=== PATIENT | female | born 1985 | race Caucasian/White ===

== ENCOUNTER 2016-04-07 03:19 | Emergency (ER) | payer MEDICARE, OTHER ==
[2016-04-07] MEDS ORDERED: METOCLOPRAMIDE 5 MG/ML 2 ML VIAL IVP STA (03:32)
[2016-04-07] MEDS ORDERED: SODIUM CHLORIDE 0.9% 1,000 ML IV STA (03:32)
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
[2016-04-07] MEDS ORDERED: FAMOTIDINE 20 MG/2 ML VIAL IV STA (04:05)
--- NOTE | 2016-04-07 04:05 | XR ---
EXAMINATION TYPE: XR KUB DATE OF EXAM: 04/07/2016 3:40 AM CLINICAL HISTORY: Nausea and vomiting. TECHNIQUE: 2 upright frontal radiographs of abdomen were obtained. COMPARISON: 02/02/2016 FINDINGS: Scattered gas is seen in non-distended small bowel loops. Gas and fecal material is seen in non-distended colon. There is no visceromegaly, pneumoperitoneum, or abnormal calcification appr eciated. The lung bases are clear and the osseous structures are intact. Neural stimulators are noted superimposing the abdomen and pelvis bilaterally with electrodes superim posing the lower thoracic spine and lumbosacral spine. IMPRESSION: Overall nonobstructive bowel gas pattern. No significant interval change.
[2016-04-07 04:14] LABS: Basophils # (A) 0.1 k/uL (0-0.2); Basophils % (A) 1 %; CH 31.7; CHCM 35.7; Eosinophils # (A) 0.1 k/uL (0-0.7); Eosinophils % (A) 1 %; HCT 41.3 % (34.0-46.0); HDW 2.73; Luc # (Auto) 0.08; Luc % (Auto) 1; Lymphocytes # (A) 2.6 k/uL (1.0-4.8); Lymphocytes % (A) 33 %; MCH 30.2 pg (25.0-35.0); MCHC 33.9 g/dL (31.0-37.0); MCV 89.2 fL (80.0-100.0); Mean Platelet Volume 7.1; Monocytes # (A) 0.4 k/uL (0-1.0); Monocytes % (A) 5 %; Neutrophils # (A) 4.8 k/uL (1.3-7.7); Neutrophils % (A) 60 %; RBC 4.64 m/uL (3.80-5.40); WBC (Perox) 7.77
[2016-04-07 04:19] LABS: Appearance,Urine Cloudy (Clear); Bacteria,Urine Rare /hpf; Bilirubin,Urine Negative (Negative); Glucose,Urine (UA) Negative (Negative); Ketones,Urine Negative (Negative); Leukocyte Esterase,Urine Negative (Negative); Mucus,Urine Rare /hpf; Nitrite,Urine Negative (Negative); PH, Urine 5.5 (5.0-8.0); Particle Count 3835; Protein,Urine Negative (Negative); RBC,Urine <1 /hpf (0-5); Specific Gravity,Urine 1.021 (1.001-1.035); Squamous Epithelial Cell,Urine 16 /hpf (0-4); UA Billing (MACRO vs. MICRO) MICRO; Urobilinogen,Urine <2.0 mg/dL (<2.0); WBC,Urine 2 /hpf (0-5)
[2016-04-07 04:24] LABS: ALT 28 U/L (9-52); AST 14 U/L (14-36); Alcohol <10 mg/dL; Alkaline Phosphatase 99 U/L (38-126); Amylase 48 U/L (30-110); Anion Gap 17 mmol/L; Blood Urea Nitrogen 19 mg/dL (7-17); Calcium 10.1 mg/dL (8.4-10.2); Carbon Dioxide 20 mmol/L (22-30); Chloride 107 mmol/L (98-107); Glucose 104 mg/dL (74-99); Non-African American GFR(MDRD) 58 (>60 ml/min/1.73 sqM); Potassium 3.8 mmol/L (3.5-5.1); Sodium 144 mmol/L (137-145); Total Bilirubin 0.2 mg/dL (0.2-1.3); Total Protein 6.6 g/dL (6.3-8.2)
[2016-04-07 05:12] VITALS: BP 128/81; PULSE 78; RESP 18; TEMP 97
== END 2016-04-07 05:12 | disposition home or self-care (01) ==
LOC: EC 03:19
DX: R10.13 Epigastric pain (principal); R11.2 Nausea with vomiting, unspecified; G90.522 Complex regional pain syndrome I of left lower limb; J45.909 Unspecified asthma, uncomplicated; E78.5 Hyperlipidemia, unspecified; F41.9 Anxiety disorder, unspecified; G40.909 Epilepsy, unspecified, not intractable, without status epilepticus; K21.9 Gastro-esophageal reflux disease without esophagitis; N30.10 Interstitial cystitis (chronic) without hematuria; F31.9 Bipolar disorder, unspecified; Z79.899 Other long term (current) drug therapy; Z88.8 Allergy status to other drugs, medicaments and biological substances; Z88.1 Allergy status to other antibiotic agents; Z91.013 Allergy to seafood; Z79.3 Long term (current) use of hormonal contraceptives
CPT/HCPCS: 96374; 96375; 96361; 99284; 36415; 80053; 82150; 83605; 83690; 85025; 81001; 80306; 80320; 74000; J2765

== ENCOUNTER → 2016-05-02 | Outpatient (CLI) | payer MEDICARE, OTHER ==
--- NOTE | 2016-05-02 14:22 | US ---
EXAMINATION TYPE: US venous doppler duplex LE BI DATE OF EXAM: 05/02/2016 1:49 PM COMPARISON: on PACS CLINICAL HISTORY: M79.669 Pain Unspecified Lower Leg, Edema. bilateral leg pain, no hx of blood clots , not on blood thinners SIDE PERFORMED: bilateral VESSELS IMAGED: External Iliac Vein (EIV) Common Femoral Vein Deep Femoral Vein Greater Saphenous Vein * Femoral Vein Popliteal Vein Small Saphenous Vein * Proximal Calf Veins (* superficial vessels) TECHNOLOGIST IMPRESSION: Right Leg: appears negative for DVT Left Leg: appears negative for DVT IMPRESSION: This examination is negative for DVT in both legs.
== END | disposition home or self-care (01) ==
LOC: RADUSWWP 12:58
PROVIDERS: ATTEND Family Medicine
DX: M79.669 Pain in unspecified lower leg (principal)
CPT/HCPCS: 93970

== ENCOUNTER 2016-05-15 11:51 | Day surgery (SDC) | payer MEDICARE, OTHER ==
[~2016-05-15 11:51] MED LIST: LACTATED RINGERS 1,000 ML IV SCH
[2016-05-15 13:12] VITALS: RESP 16; TEMP 97.1
[2016-05-15] MEDS ORDERED: LIDOCAINE 1% 20 ML VIAL (10MG/ML) FOR IV START INTRADERMA ONE (13:26)
[2016-05-15] MEDS ORDERED: PROPOFOL 10 MG/ML 20 ML VIAL IV ONE (14:30)
[2016-05-15] MEDS ORDERED: MIDAZOLAM 2 MG/2 ML VIAL IVP ONE (15:00)
--- NOTE | 2016-05-15 15:00 | P.PCN ---
Date of Procedure: 05/15/16 Procedure(s) Performed: Procedure: Esophagogastroduodenoscopy and biopsy. Preoperative diagnosis: Epigastric pain and nausea and vomiting. Postoperative diagnosis: 1. Small sliding hiatal hernia with no obvious esophagitis or complicated reflux disease. 2. Mild antral gastritis. Preparation and sedation: Was provided by anesthesia. Brief clinical history: The patient is a 30-year-old female who I have evaluated in the office earlier this month regarding epigastric pain and recurrent nausea and vomiting. This had been going on for 2-3 years. She had both upper endoscopy and colonoscopy in August 2014 because of diarrhea. Because of her symptoms at this time and lack of response to therapy, I requested an ultrasound of the abdomen and scheduled her for an upper endoscopy. Procedure: With the patient on her left lateral decubitus position and after informed consent and adequate sedation, I passed the Olympus-GIF 160 video upper endoscope through the cricopharyngeus down the esophagus. GE junction was around 35 cm from the incisors and there was a very small sliding hiatal hernia. The esophagus did not show any obvious erosions, ulcers, strictures or Dale's esophagus. The endoscope was then passed into the stomach which was insufflated with air and inspected in detail including the retroflex view in the cardia. There was mottling and erythema in the antrum and areas of friability and floating flecks of blood consistent with gastritis. I did not see any ulcers, erosions or bleeding. Pyloric channel, duodenal bulb, post bulbar area and descending duodenum appeared within normal limits. Because of her symptoms, I obtained biopsies from the duodenum, antrum and esophagus then the endoscope was withdrawn. The patient tolerated the procedure well. Plan: The patient was reassured. Will await biopsy results. She will follow- up in the office as planned and I will keep you updated on her progress.
[2016-05-15] MEDS ORDERED: ONDANSETRON 4 MG/2 ML VIAL IVP ONE (15:30)
[2016-05-15 15:47] VITALS: BP 131/76; PULSE 76
== END 2016-05-15 15:57 | disposition home or self-care (01) ==
LOC: ORWHC2ENDO 11:51
DX: K21.0 Gastro-esophageal reflux disease with esophagitis (principal); K44.9 Diaphragmatic hernia without obstruction or gangrene; K29.70 Gastritis, unspecified, without bleeding; E78.5 Hyperlipidemia, unspecified; J45.909 Unspecified asthma, uncomplicated; F31.9 Bipolar disorder, unspecified; F43.10 Post-traumatic stress disorder, unspecified; M19.90 Unspecified osteoarthritis, unspecified site; G40.909 Epilepsy, unspecified, not intractable, without status epilepticus; Z79.891 Long term (current) use of opiate analgesic; Z79.51 Long term (current) use of inhaled steroids; Z79.899 Other long term (current) drug therapy; Z88.1 Allergy status to other antibiotic agents; Z88.2 Allergy status to sulfonamides; Z88.8 Allergy status to other drugs, medicaments and biological substances; N30.10 Interstitial cystitis (chronic) without hematuria
CPT/HCPCS: 81025; 88305; 43239; J2250; J2405; J2704; 99153

== ENCOUNTER 2016-05-29 02:04 | Emergency (ER) | payer MEDICARE, OTHER ==
[2016-05-29 02:09] VITALS: TEMP 97.5
[2016-05-29] MEDS ORDERED: SODIUM CHLORIDE 0.9% 2,000 ML IV STA (02:21)
[2016-05-29] MEDS ORDERED: ACETAMINOPHEN IV (For NPO) 1,000 MG in EMPTY BAG 1 BAG IVPB STA (02:29)
[2016-05-29] MEDS ORDERED: METOCLOPRAMIDE 5 MG/ML 2 ML VIAL IVP STA (02:29)
[2016-05-29] MEDS ORDERED: diphenhydrAMINE 50 MG/ML 1 ML VIAL IVP STA (02:29)
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
[2016-05-29 02:58] LABS: Basophils # (A) 0.1 k/uL (0-0.2); Basophils % (A) 1 %; CHCM 36.6; Eosinophils # (A) 0.1 k/uL (0-0.7); Eosinophils % (A) 1 %; HCT 44.1 % (34.0-46.0); HGB 15.9 gm/dL (11.4-16.0); Luc # (Auto) 0.08; Luc % (Auto) 1; Lymphocytes # (A) 1.5 k/uL (1.0-4.8); Lymphocytes % (A) 19 %; MCH 31.6 pg (25.0-35.0); MCV 87.9 fL (80.0-100.0); Mean Platelet Volume 7.8; Monocytes # (A) 0.3 k/uL (0-1.0); Monocytes % (A) 4 %; Neutrophils # (A) 5.7 k/uL (1.3-7.7); Neutrophils % (A) 74 %; RBC 5.02 m/uL (3.80-5.40); RDW 13.1 % (11.5-15.5); WBC 7.7 k/uL (3.8-10.6); WBC (Perox) 7.07
[2016-05-29 03:18] LABS: ALT 24 U/L (9-52); AST 24 U/L (14-36); Alkaline Phosphatase 107 U/L (38-126); Amylase 40 U/L (30-110); Anion Gap 16 mmol/L; Blood Urea Nitrogen 17 mg/dL (7-17); Carbon Dioxide 24 mmol/L (22-30); Chloride 101 mmol/L (98-107); Glucose 118 mg/dL (74-99); Non-African American GFR(MDRD) >60 (>60 ml/min/1.73 sqM); Potassium 4.1 mmol/L (3.5-5.1); Sodium 141 mmol/L (137-145); Total Bilirubin 0.7 mg/dL (0.2-1.3); Total Protein 7.6 g/dL (6.3-8.2)
[2016-05-29 03:25] LABS: Appearance,Urine Clear (Clear); Bacteria,Urine Rare /hpf; Bilirubin,Urine Negative (Negative); Glucose,Urine (UA) Negative (Negative); Ketones,Urine Trace (Negative); Leukocyte Esterase,Urine Trace (Negative); Mucus,Urine Rare /hpf; Nitrite,Urine Negative (Negative); Particle Count 3454; Protein,Urine Negative (Negative); RBC,Urine 1 /hpf (0-5); Specific Gravity,Urine 1.012 (1.001-1.035); Squamous Epithelial Cell,Urine 6 /hpf (0-4); UA Billing (MACRO vs. MICRO) MICRO; Urobilinogen,Urine <2.0 mg/dL (<2.0); WBC,Urine 6 /hpf (0-5)
[2016-05-29] MEDS ORDERED: MAG HYDROX/AL HYDROX/SIMETH 30 ML, HYOSCYAMINE ELIXIR 10 ML, CIMETIDINE HCL 300 MG PO STA ×3 (03:25)
[2016-05-29] MEDS ORDERED: MAG HYDROX/AL HYDROX/SIMETH 30 ML, HYOSCYAMINE ELIXIR 10 ML, LIDOCAINE VISCOUS 200 MG PO STA ×3 (03:27)
--- NOTE | 2016-05-29 03:34 | XR ---
EXAM: XR Abdomen, 1 View. CLINICAL HISTORY: Reason: abdominal pain TECHNIQUE: 2 frontal upright views of the abdomen/pelvis. COMPARISON: 04/07/16 plain films. FINDINGS: Gastrointestinal tract: Unremarkable. No dilation. Bones: Slight rightward curvature centered at the L1 level, stable. No acute fracture. Tubes and lines: There are again neurostimulator device is present with bilateral battery packs, and electrodes overlying the lower lumbar spine and extending to the lower thoracic spine, as on the prior exam. IMPRESSION: No acute findings.
[2016-05-29 04:02] VITALS: BP 123/76; PULSE 75; RESP 16
== END 2016-05-29 03:56 | disposition home or self-care (01) ==
LOC: EC 02:04
DX: G43.909 Migraine, unspecified, not intractable, without status migrainosus (principal); R11.2 Nausea with vomiting, unspecified; R10.9 Unspecified abdominal pain; J45.909 Unspecified asthma, uncomplicated; E78.5 Hyperlipidemia, unspecified; G40.909 Epilepsy, unspecified, not intractable, without status epilepticus; G98.8 Other disorders of nervous system; N30.10 Interstitial cystitis (chronic) without hematuria; K21.9 Gastro-esophageal reflux disease without esophagitis; M19.90 Unspecified osteoarthritis, unspecified site; F31.9 Bipolar disorder, unspecified; G47.00 Insomnia, unspecified; F12.90 Cannabis use, unspecified, uncomplicated; Z91.013 Allergy to seafood; Z88.2 Allergy status to sulfonamides; Z88.8 Allergy status to other drugs, medicaments and biological substances; Z88.1 Allergy status to other antibiotic agents; Z79.899 Other long term (current) drug therapy; Z86.14 Personal history of Methicillin resistant Staphylococcus aureus infection; Z79.51 Long term (current) use of inhaled steroids; Z79.891 Long term (current) use of opiate analgesic
CPT/HCPCS: 99284; 96374; 96375 ×2; 96361; 36415; 80053; 82150; 83690; 85025; 81001; 81025; 87502; 74000; J1200; J2765; J0131

== ENCOUNTER 2016-06-07 19:08 | Emergency (ER) | payer MEDICARE, OTHER ==
[2016-06-07 19:28] VITALS: BP 127/90; PULSE 100; RESP 20; TEMP 98.1
[2016-06-07] MEDS ORDERED: ORPHENADRINE 30 MG/ML 2 ML VIAL IM STA (20:04)
[2016-06-07] MEDS ORDERED: methylPREDNISolone SOD SUCCI 125 MG/2 ML VIAL IM ONE (20:04)
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
== END 2016-06-07 20:24 | disposition home or self-care (01) ==
LOC: EC 19:08
DX: S39.012A Strain of muscle, fascia and tendon of lower back, initial encounter (principal); M54.16 Radiculopathy, lumbar region; J45.909 Unspecified asthma, uncomplicated; K21.9 Gastro-esophageal reflux disease without esophagitis; E78.5 Hyperlipidemia, unspecified; M19.90 Unspecified osteoarthritis, unspecified site; G40.909 Epilepsy, unspecified, not intractable, without status epilepticus; F31.9 Bipolar disorder, unspecified; F41.9 Anxiety disorder, unspecified; F43.10 Post-traumatic stress disorder, unspecified; Z79.899 Other long term (current) drug therapy; Z88.1 Allergy status to other antibiotic agents; Z91.013 Allergy to seafood; Z88.2 Allergy status to sulfonamides; Z88.6 Allergy status to analgesic agent; Z88.8 Allergy status to other drugs, medicaments and biological substances; X58.XXXA Exposure to other specified factors, initial encounter
CPT/HCPCS: 99283; 96372 ×2; J2360; J2930

== ENCOUNTER 2016-06-14 12:00 | Inpatient (IN) | payer MEDICARE, OTHER ==
--- NOTE | 2016-06-14 13:30 | HP ---
DATE OF ADMISSION: CHIEF COMPLAINT: Cough, congestion, shortness of breath started about 10 days ago, has been progressive in nature. HISTORY OF PRESENTING ILLNESS: Ms. Tiara Mackenzie is a pleasant 30-year-old female who is seen, evaluated, examined in the office for increased cough, congestion and wheezing, has not been feeling well. The symptoms started about 10 days ago with upper respiratory like process; however, has been progressive. Due to severe coughing, congestion and worsening in breathing, came into the office for further evaluation. She has been gagging and throwing up as well. With those problems, patient is now being admitted into the hospital. She has audible wheezing as well. Past medical history is significant for chronic persistent asthma of mild to moderate category, history of peptic ulcer disease, generalized anxiety disorder, history of early interstitial lung disease, chronic headache, dyspnea, dyslipidemia, reflex sympathetic dystrophy, history of mood disorder, depression, cough, hypertension, hypertensive ( ), UTI, mild degree of obstructive sleep apnea with AHI is not high enough to warrant intervention with CPAP. Past surgical history is significant for bunions resection, back surgery. FAMILY HISTORY AND SOCIAL HISTORY: Denies any smoking, ethanol abuse. Denies any substance use. Patient does have a history of chronic pain syndrome, has been followed by pain management services as well. She does do medical marijuana as well. Allergies include PROLIXIN, HALDOL, GEODON, ETHER, SULFA and LEVAQUIN. Her medications at home include: 1. Acyclovir 400 mg daily and 800 mg daily. 2. Xanax as needed 0.5 two times a day. 3. Benztropine 1 mg p.o. 2 times a day. 4. Depo-Provera is as per direction intramuscular. 5. Elmiron 100 mg 2 times a day. 6. Gemfibrozil 600 mg ( ). 7. Hydrochlorothiazide 25 mg daily. 8. Invega 117 mg/0.75 once a month. 9. Minipress 2 mg daily. 10. Neurontin 800 mg p.o. ( ). 11. Protonix 40 mg daily. 12. Percocet 5/325 two times a day. 13. Qvar 80 mcg 2 puffs 2 times a day. 14. Requip 1 mg at bedtime. 15. Singular 10 mg daily. 16. Singulair 10 mg daily. 17. Spiriva 18 mcg daily. 18. Sumatriptan 50 mg tablets as needed. 19. Tegretol 200 mg p.o. 2 times a day along with 100 mg XR 2 times a day. 20. Tizanidine 4 mg 4 times a day. 21. Topiramate 50 mg 2 times a day. 22. Trazodone 200 mg daily. 23. Zofran is 8 mg as needed. 24. Zyrtec 10 mg p.o. daily. FAMILY HISTORY AND SOCIAL HISTORY: Strong history of cardiovascular, cerebrovascular family also psychiatric disorder on maternal side. On examination, her blood pressure is 118/82, respiratory rate 18, pulse rate 82, temperature is 96.5, weight is 166 pounds, height is 62 inches, saturation 96%. HEENT EXAMINATION: Atraumatic, normocephalic. Pharynx is clear. Narrow pharyngeal opening is present. Mallampati grade 3. Facial tenderness is present. NECK: Supple otherwise, no bruits present. LUNGS: Bilateral coarse inspiratory, expiratory wheezing and rhonchi are present. HEART: Regular rate and rhythm. S1, S2. ABDOMEN: Soft. No rebound or rigidity. EXTREMITIES: +1 peripheral pulses. NEUROLOGICAL EXAMINATION: Otherwise, awake and alert. No focal neurological deficit. During examination, patient continued to have episodes of coughing and gagging though. IMPRESSION: 1. Acute asthma exacerbation, likely associated purulent tracheobronchitis. 2. Community-acquired pneumonia cannot be excluded. 3. Viral pneumonia like influenza, pneumonia is also a possibility given the clinical presentation. 4. Other issues include reflex sympathetic dystrophy. 5. Dyslipidemia. 6. Hypertension. 7. Mood disorder. 8. Morbid obesity. 9. Fibromyalgia. 10. Chronic seasonal allergies. PLAN AND RECOMMENDATIONS: As above. The patient is being admitted into the hospital directly. I will obtain the basic labs including chemistry, CBC, blood culture, urine culture, sputum for studies, influenza A and B for nasopharyngeal swab, chest x-ray. Patient will be started on broad-spectrum antibiotic in the form of Rocephin and Zithromax pending culture results and reports. In addition will be placed on breathing treatments, steroids and will be continued on home medications. The patient will be continued on ( ) medications. We will follow clinical course closely. Further recommendations pending as per clinical response of the patient.
[2016-06-14] MEDS ORDERED: diphenhydrAMINE 25 MG CAP PO PRN (15:30)
[2016-06-14] MEDS ORDERED: SODIUM CHLORIDE 0.9% 1,000 ML IV SCH (15:30)
[2016-06-14] MEDS ORDERED: ONDANSETRON 4 MG TAB PO PRN (15:33)
[2016-06-14] MEDS ORDERED: oxyCODONE-APAP 5-325MG 1 EACH TAB PO PRN (15:33)
[2016-06-14] MEDS ORDERED: SUMAtriptan SUCCINATE 50 MG TAB PO PRN (15:33)
[2016-06-14] MEDS ORDERED: PALIPERIDONE PALMITATE 117 MG IM SCH (15:45)
[2016-06-14 16:13] VITALS: BP 129/85; RESP 18; TEMP 98.2
[2016-06-14 16:24] LABS: CHCM 35.9; HGB 14.5 gm/dL (11.4-16.0); MCH 32.3 pg (25.0-35.0); MCHC 36.1 g/dL (31.0-37.0); MCV 89.5 fL (80.0-100.0); Mean Platelet Volume 7.4; RBC 4.47 m/uL (3.80-5.40); RDW 13.1 % (11.5-15.5); WBC 4.8 k/uL (3.8-10.6)
[2016-06-14] MEDS: IPRATROPIUM-ALBUTEROL 3 ML NEB INHALATION SCH ×2 (16:27→19:41)
[2016-06-14 16:35] LABS: Anion Gap 15 mmol/L; Blood Urea Nitrogen 17 mg/dL (7-17); Calcium 9.6 mg/dL (8.4-10.2); Carbon Dioxide 23 mmol/L (22-30); Chloride 104 mmol/L (98-107); Glucose 88 mg/dL (74-99); Magnesium 1.8 mg/dL (1.6-2.3); Non-African American GFR(MDRD) >60 (>60 ml/min/1.73 sqM); Phosphorous 3.3 mg/dL (2.5-4.5); Sodium 142 mmol/L (137-145)
[2016-06-14 16:38] VITALS: PULSE 102
[2016-06-14] MEDS ORDERED: tiZANidine 4 MG TAB PO PRN (18:00)
--- NOTE | 2016-06-14 18:08 | XR ---
EXAMINATION TYPE: XR chest 2V DATE OF EXAM: 06/14/2016 5:38 PM COMPARISON: 02/11/2016 HISTORY: Cough and chest pain TECHNIQUE: Frontal and lateral views of the chest are obtained. FINDINGS: There is no focal air space opacity, pleural effusion, or pneumothorax seen. The cardiac silhouette size is within normal limits. The osseous structures are intact. Again a spinal stimulat or device is seen in the thoracic spine. IMPRESSION: No acute cardiopulmonary process, unchanged from the prior.
[2016-06-14 19:58] LABS: Hemoglobin A1C 5.3 % (4.2-6.1)
[2016-06-14] MEDS ORDERED: BUDESONIDE 0.5 MG/2 ML NEBU INHALATION SCH (20:00)
[2016-06-14] MEDS ORDERED: BENZTROPINE MESYLATE 1 MG TAB PO SCH (21:00)
[2016-06-14] MEDS ORDERED: GEMFIBROZIL 600 MG TAB PO SCH (21:00)
[2016-06-14] MEDS ORDERED: NON-FORMULARY DRUG (Pentosan Polysulfate Sodium [Elmiron] 100 MG) PO SCH (21:00)
[2016-06-14] MEDS ORDERED: traZODone HCL 100 MG TAB PO SCH (21:00)
[2016-06-14] MEDS ORDERED: PRAZOSIN 1 MG CAP PO SCH (21:00)
[2016-06-14] MEDS ORDERED: GABAPENTIN 300 MG CAP PO SCH (21:00)
[2016-06-14] MEDS ORDERED: INSULIN LISPRO (humaLOG) 300 UNIT/3 ML VIAL SQ SCH (21:00)
[2016-06-15] MEDS ORDERED: methylPREDNISolone SOD SUCCI 40 MG/ML 1 ML VIAL IV SCH
[2016-06-15] MEDS ORDERED: HYDROCHLOROTHIAZIDE 25 MG TAB PO SCH (09:00)
[2016-06-15] MEDS ORDERED: MONTELUKAST 10 MG TAB PO SCH (09:00)
[2016-06-15] MEDS ORDERED: carBAMazepine 100 MG TAB.ER.12H PO SCH (09:00)
== END 2016-06-14 21:06 | disposition left against medical advice (07) | DRG 194 ==
LOC: 5MS5E 13:25
PROVIDERS: ADMIT Internal Medicine Sleep Medicine; ATTEND Internal Medicine Sleep Medicine
DX: J12.9 Viral pneumonia, unspecified (principal); J84.9 Interstitial pulmonary disease, unspecified; J45.41 Moderate persistent asthma with (acute) exacerbation; E66.01 Morbid (severe) obesity due to excess calories; G90.50 Complex regional pain syndrome I, unspecified; J41.1 Mucopurulent chronic bronchitis; J18.9 Pneumonia, unspecified organism; I10 Essential (primary) hypertension; F41.1 Generalized anxiety disorder; M79.7 Fibromyalgia; G47.33 Obstructive sleep apnea (adult) (pediatric); Z68.30 Body mass index [BMI] 30.0-30.9, adult; E78.5 Hyperlipidemia, unspecified; Z87.11 Personal history of peptic ulcer disease; Z79.899 Other long term (current) drug therapy; F39 Unspecified mood [affective] disorder
CPT/HCPCS: 71020; 80048; 83036; 83735; 84100; 85027; 87040; 94640

== ENCOUNTER 2016-07-08 21:40 | Emergency (ER) | payer MEDICARE, OTHER ==
[2016-07-08 21:56] VITALS: BP 149/89; PULSE 120; RESP 16; TEMP 99.2
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
--- NOTE | 2016-07-08 22:49 | XR ---
EXAM: XR Right Knee, 3 views. CLINICAL HISTORY: Reason: Pain TECHNIQUE: Three views of the right knee. COMPARISON: Right knee radiographs 11/22/2013 FINDINGS: Bones/joints: No evidence of fracture, dislocation or bony erosion. No significant arthritic changes. No evidence of knee joint effusion. Soft tissues: Unremarkable. IMPRESSION: No significant bone or joint abnormalities.
== END 2016-07-08 23:35 | disposition home or self-care (01) ==
LOC: EC 21:40
DX: S80.01XA Contusion of right knee, initial encounter (principal); J45.909 Unspecified asthma, uncomplicated; K21.9 Gastro-esophageal reflux disease without esophagitis; E78.5 Hyperlipidemia, unspecified; M19.90 Unspecified osteoarthritis, unspecified site; G40.909 Epilepsy, unspecified, not intractable, without status epilepticus; F41.9 Anxiety disorder, unspecified; F31.9 Bipolar disorder, unspecified; Z79.899 Other long term (current) drug therapy; Z88.1 Allergy status to other antibiotic agents; Z91.013 Allergy to seafood; Z88.2 Allergy status to sulfonamides; Z88.6 Allergy status to analgesic agent; Z88.8 Allergy status to other drugs, medicaments and biological substances; W01.0XXA Fall on same level from slipping, tripping and stumbling without subsequent striking against object, initial encounter
CPT/HCPCS: 99283

== ENCOUNTER → 2016-07-16 | Outpatient (CLI) | payer MEDICARE, OTHER ==
--- NOTE | 2016-07-16 14:54 | US ---
EXAMINATION TYPE: US gallbladder DATE OF EXAM: 07/16/2016 2:18 PM COMPARISON: NONE CLINICAL HISTORY: 30-year-old female R10.9 ABD PAIN. Pain for a year, worse last 3 days TECHNIQUE: Multiple sonographic images of the right upper quadrant are obtained. FINDINGS: DENTAL INTERN NOTES: Large body habitus. Liver Length: 12.8 cm Gallbladder Wall: 0.2 cm CBD: 0.2 cm Right Kidney: 10.2 x 3.4 x 5.1 cm Pancreas: Obscured by bowel gas, large body habitus Liver: Homogeneous echotexture without focal lesion. Gallbladder: No abnormal gallbladder distention, wall thickening, pericholecystic fluid, or shadowin g calculi. Evidence for sonographic Bruner's sign: No CBD: Within normal limits. Right Kidney: No hydronephrosis. There is a 6 mm calculus in the upper to midpole. IMPRESSION: 1. No sonographic evidence for cholelithiasis, acute cholecystitis, or biliary ductal dilatation. 2. Suspected 6 mm nonobstructive right renal calculus.
--- NOTE | 2016-07-16 14:56 | XR ---
EXAMINATION TYPE: XR KUB DATE OF EXAM: 07/16/2016 2:31 PM CLINICAL DATA: 30 year-old female unspecified abdominal pain, right-sided pain and vomiting, PH[facility] COMPARISON: 05/29/2016 FINDINGS: Lung bases are clear. Supine imaging limited for assessment of free air. No dilated bowel. Mild stool burden. Scattered air is seen throughout the colon extending distally in to the rectum. No suspicious calcifications. Generator device is present on both sides of the abdomen. The left generator device has a spinal stim ulator array extending to the midline lower thoracic spinal canal. The right-sided generator device h as stimulator arrays extending to the exiting L4 and L5 nerve roots. IMPRESSION: 1. Nonobstructive bowel gas pattern. No significant stool burden. 2. Bilateral generator devices.
== END ==
LOC: RADUSWWP 13:57
PROVIDERS: ATTEND Family Medicine
DX: R10.9 Unspecified abdominal pain (principal)
CPT/HCPCS: 74000; 76705

== ENCOUNTER 2016-07-20 16:52 | Emergency (ER) | payer MEDICARE, OTHER ==
[2016-07-20 19:31] VITALS: RESP 16
[2016-07-20] MEDS ORDERED: HYDROmorphone 2 MG/ML 1 ML SYRINGE IM STA (19:44)
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
--- NOTE | 2016-07-20 20:19 | CT ---
EXAMINATION TYPE: CT abdomen pelvis wo con DATE OF EXAM: 07/20/2016 8:00 PM COMPARISON: 10/18/2014 HISTORY: Right flank pain x [address] DLP: 464.50 mGycm Automated exposure control for dose reduction was used. TECHNIQUE: Helical acquisition of images was performed from the lung bases through the pelvis. FINDINGS: Lung bases are clear of consolidation. There is no pleural effusion. Liver spleen pancreas gallbladder appear normal. Bile ducts are not dilated. There is no adrenal mass . Kidneys have normal size and contour. There is no hydronephrosis. Ureters are not dilated. There is no retroperitoneal adenopathy. Bladder distends smoothly. There is no sign of a pelvic mass. There i s no ascites. I see no bony destructive process. There is a neurostimulator in the lower lumbar spine . The appendix appears normal. IMPRESSION: NEGATIVE CT SCAN OF THE ABDOMEN AND PELVIS. NO CHANGE COMPARED TO OLD EXAM.
[2016-07-20 20:38] LABS: Appearance,Urine Cloudy (Clear); Bacteria,Urine Occasional /hpf; Bilirubin,Urine Negative (Negative); Glucose,Urine (UA) Negative (Negative); Ketones,Urine Negative (Negative); Leukocyte Esterase,Urine Negative (Negative); Mucus,Urine Rare /hpf; Nitrite,Urine Negative (Negative); PH, Urine 6.5 (5.0-8.0); Particle Count 1457; Protein,Urine Negative (Negative); RBC,Urine 1 /hpf (0-5); Specific Gravity,Urine 1.007 (1.001-1.035); Squamous Epithelial Cell,Urine 6 /hpf (0-4); UA Billing (MACRO vs. MICRO) MICRO; Urobilinogen,Urine <2.0 mg/dL (<2.0); WBC,Urine 2 /hpf (0-5)
[2016-07-20] MEDS ORDERED: ONDANSETRON ODT 4 MG TAB PO STA (20:45)
[2016-07-20 21:37] VITALS: BP 165/94; PULSE 91; TEMP 98.4
[2016-07-20] MEDS ORDERED: LORazepam 2 MG/ML SYRINGE IV STA (21:55)
[2016-07-20] MEDS ORDERED: LORazepam 2 MG/ML SYRINGE IM STA (21:59)
== END 2016-07-20 22:04 | disposition home or self-care (01) ==
LOC: EC 16:52
DX: R10.9 Unspecified abdominal pain (principal); G89.29 Other chronic pain; M54.9 Dorsalgia, unspecified; R11.0 Nausea; J45.909 Unspecified asthma, uncomplicated; K21.9 Gastro-esophageal reflux disease without esophagitis; E78.5 Hyperlipidemia, unspecified; M19.90 Unspecified osteoarthritis, unspecified site; G40.909 Epilepsy, unspecified, not intractable, without status epilepticus; F31.9 Bipolar disorder, unspecified; F41.9 Anxiety disorder, unspecified; F43.10 Post-traumatic stress disorder, unspecified; Z79.899 Other long term (current) drug therapy; Z88.1 Allergy status to other antibiotic agents; Z91.013 Allergy to seafood; Z88.2 Allergy status to sulfonamides; Z88.6 Allergy status to analgesic agent; Z88.8 Allergy status to other drugs, medicaments and biological substances
CPT/HCPCS: 81001; 81025; 87086; 74176; 99284; 96372 ×2; J2060; J1170

== ENCOUNTER 2016-09-10 23:47 | Emergency (ER) | payer MEDICARE, OTHER ==
[2016-09-11 00:03] VITALS: BP 160/71; PULSE 95; RESP 18; TEMP 97.4
[2016-09-11] MEDS ORDERED: HYDROmorphone 1 MG/ML 1 ML SYRINGE IM STA (00:42)
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
== END 2016-09-11 01:01 | disposition home or self-care (01) ==
LOC: EC 23:47
DX: G90.522 Complex regional pain syndrome I of left lower limb (principal); E78.5 Hyperlipidemia, unspecified; J45.909 Unspecified asthma, uncomplicated; K21.9 Gastro-esophageal reflux disease without esophagitis; M19.90 Unspecified osteoarthritis, unspecified site; G40.909 Epilepsy, unspecified, not intractable, without status epilepticus; F31.9 Bipolar disorder, unspecified; F41.9 Anxiety disorder, unspecified; F43.10 Post-traumatic stress disorder, unspecified; Z79.51 Long term (current) use of inhaled steroids; Z79.899 Other long term (current) drug therapy; Z88.1 Allergy status to other antibiotic agents; Z91.030 Bee allergy status; Z88.6 Allergy status to analgesic agent; Z88.2 Allergy status to sulfonamides; Z88.8 Allergy status to other drugs, medicaments and biological substances
CPT/HCPCS: 99283; 96372; J1170

== ENCOUNTER 2016-09-12 13:38 | Emergency (ER) | payer MEDICARE, OTHER ==
[2016-09-12] MEDS ORDERED: MORPHINE SULFATE 4 MG/ML SYRINGE IVP STA ×2 (15:21→18:17)
[2016-09-12] MEDS ORDERED: SODIUM CHLORIDE 0.9% 1,000 ML IV ONE (15:21)
[2016-09-12] MEDS ORDERED: ONDANSETRON 4 MG/2 ML VIAL IVP STA (15:21)
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
[2016-09-12] MEDS ORDERED: SUCRALFATE 1 GM TAB PO STA (15:39)
[2016-09-12 16:00] LABS: Basophils % (A) 0 %; CHCM 38.1; Eosinophils # (A) 0.1 k/uL (0-0.7); Eosinophils % (A) 1 %; HDW 2.74; HGB 15.6 gm/dL (11.4-16.0); Hyperchromasia Slight; Luc % (Auto) 1; Lymphocytes # (A) 1.3 k/uL (1.0-4.8); Lymphocytes % (A) 16 %; MCH 31.5 pg (25.0-35.0); MCHC 36.3 g/dL (31.0-37.0); MCV 86.9 fL (80.0-100.0); Mean Platelet Volume 6.6; Monocytes # (A) 0.4 k/uL (0-1.0); Monocytes % (A) 5 %; Neutrophils # (A) 6.5 k/uL (1.3-7.7); Neutrophils % (A) 77 %; RBC 4.95 m/uL (3.80-5.40); RDW 12.8 % (11.5-15.5); WBC 8.4 k/uL (3.8-10.6); WBC (Perox) 8.21
[2016-09-12 16:04] LABS: HCG,Qualitative Serum Not Detected
[2016-09-12 16:10] LABS: ALT 26 U/L (9-52); AST 20 U/L (14-36); Alkaline Phosphatase 121 U/L (38-126); Anion Gap 17 mmol/L; Blood Urea Nitrogen 14 mg/dL (7-17); Calcium 10.4 mg/dL (8.4-10.2); Carbon Dioxide 24 mmol/L (22-30); Chloride 100 mmol/L (98-107); Glucose 101 mg/dL (74-99); Magnesium 1.9 mg/dL (1.6-2.3); Non-African American GFR(MDRD) >60 (>60 ml/min/1.73 sqM); Potassium 3.3 mmol/L (3.5-5.1); Sodium 141 mmol/L (137-145); Total Bilirubin 0.5 mg/dL (0.2-1.3); Total Protein 7.2 g/dL (6.3-8.2)
[2016-09-12] MEDS ORDERED: METOCLOPRAMIDE 5 MG/ML 2 ML VIAL IVP STA (18:17)
--- NOTE | 2016-09-12 18:40 | XR ---
EXAMINATION TYPE: XR KUB DATE OF EXAM: 09/12/2016 COMPARISON: 07/16/2016 HISTORY: Right upper quadrant pain TECHNIQUE: 2 views FINDINGS: Bowel gas pattern is normal. There is no sign of intestinal obstruction or pneumoperitoneum . Fecal pattern is normal. There are neural stimulators over the abdomen. There are no pathologic kaela cifications over the kidneys. There is no sign of a mass. Lung bases are clear. IMPRESSION: Nonacute abdomen. No change.
[2016-09-12 19:27] VITALS: BP 133/85; PULSE 89; RESP 16; TEMP 98
== END 2016-09-12 19:23 | disposition home or self-care (01) ==
LOC: EC 13:38
DX: R10.11 Right upper quadrant pain (principal); R11.2 Nausea with vomiting, unspecified; J45.909 Unspecified asthma, uncomplicated; E78.5 Hyperlipidemia, unspecified; F31.9 Bipolar disorder, unspecified; Z88.1 Allergy status to other antibiotic agents; Z88.8 Allergy status to other drugs, medicaments and biological substances; Z88.6 Allergy status to analgesic agent; Z88.2 Allergy status to sulfonamides; Z91.013 Allergy to seafood; Z79.899 Other long term (current) drug therapy
CPT/HCPCS: 99284; 96374; 96375 ×2; 96376; 96361; 36415; 80053; 83605; 83690; 83735; 85025; 84703; 74000; J2765; J2270; J2405

== ENCOUNTER 2016-09-27 02:53 | Emergency (ER) | payer MEDICARE, OTHER ==
[2016-09-27 03:01] VITALS: BP 136/79; PULSE 104; RESP 18; TEMP 98.4
[2016-09-27] MEDS ORDERED: BENZOCAINE 20% HEMORRHOIDAL OINT 28GM RECTAL STA (03:18)
[2016-09-27] MEDS ORDERED: HYDROcodone/APAP 5-325MG 1 EACH TAB PO STA (03:20)
--- NOTE | 2016-09-27 03:29 | ED ---
General Adult HPI - General Chief complaint: Skin/Abscess/Foreign Body Stated complaint: Diarrhea X6 Days Time Seen by Provider: 09/27/16 03:09 Source: patient, RN notes reviewed Mode of arrival: ambulatory Limitations: no limitations - History of Present Illness Initial comments: Patient is a 30-year-old female presents emergency room for evaluation of rectal pain. Patient states she has a history of having on-and-off diarrhea. Patient states been having diarrhea over the past 6 days. Patient states having increasing pain in her rectal/anal area. Patient states that she has been applying Neosporin, Preparation H, taking Benadryl and applying ice to the area. Patient states last night she took a [place] and a muscle relaxer and the pain subsided. Patient states she woke up around 1 AM this morning he was having increasing young; pain. Patient states it hurts to sit. Patient states it hurts to make a bowel movement. Patient also states she has a history of hemorrhoids. Patient states she needs cream to help with the pain. Patient states she noticed slight bright red blood in stools from hemorrhoid. Patient denies abdominal pain. Patient denies any current nausea or vomiting. Patient denies headache or dizziness. - Related Data Home Medications Medication Instructions Recorded Confirmed Gemfibrozil [Lopid] 600 mg PO BID 11/22/13 09/27/16 Medroxyprogesterone Acetate 150 mg IM Q84D 11/22/13 09/27/16 [Depo-Provera] rOPINIRole HCL [Requip] 1 mg PO HS 11/22/13 09/27/16 Montelukast [Singulair] 10 mg PO HS 10/07/14 09/27/16 Pentosan Polysulfate Sodium 100 mg PO BID 02/10/15 09/27/16 [Elmiron] Pantoprazole Sodium [Protonix] 40 mg PO DAILY 04/20/15 09/27/16 Ondansetron HCl [Zofran] 8 mg PO Q8HR PRN 05/01/15 09/27/16 Beclomethasone Dipropionate [Qvar 2 puff INHALATION RT-BID PRN 06/07/15 09/27/16 80 mcg/puff] Benztropine Mesylate [Cogentin] 1 mg PO BID 08/29/15 09/27/16 Acyclovir [Zovirax] 400 - 800 mg PO DAILY PRN 09/28/15 09/27/16 SUMAtriptan SUCCINATE [Imitrex] 50 mg PO DAILY PRN 09/28/15 09/27/16 carBAMazepine [TEGretol XR] 100 mg PO QAM 12/02/15 09/27/16 Prazosin HCl [Minipress] 2 mg PO HS 01/04/16 09/27/16 carBAMazepine [TEGretol XR] 200 mg PO BID 01/04/16 09/27/16 tiZANidine [Zanaflex] 4 mg PO Q6HR PRN 01/04/16 09/27/16 traZODone HCL [Desyrel] 300 mg PO HS 01/04/16 09/27/16 Tiotropium 18 Mcg/Puff [Spiriva] 1 cap INHALATION RT-DAILY 01/27/16 09/27/16 Albuterol Inhaler [Ventolin Hfa 2 puff INHALATION RT-QID PRN 06/14/16 09/27/16 Inhaler] Gabapentin 600 mg PO BID 06/14/16 09/27/16 HYDROcodone/APAP 7.5-325MG [[place] 1 tab PO Q6HR PRN 07/20/16 09/27/16 7.5-325] Hydrochlorothiazide [Hydrodiuril] 25 mg PO DAILY 07/20/16 09/27/16 Paliperidone Palmitate [Invega 117 mg IM Q28D 07/20/16 09/27/16 Sustenna] carBAMazepine [TEGretol XR] 200 mg PO HS 07/20/16 09/27/16 Previous Rx's Medication Instructions Recorded Sucralfate [Carafate] 1 gm PO QID #24 tablet 09/12/16 Hydrocortisone Suppository 25 mg RECTAL BID PRN #10 supp 09/27/16 [Anusol-Hc] Witch Jama [Preparation H 1 applic TOPICAL Q4HR PRN #30 pad 09/27/16 Pad/Wipe] Allergies Allergy/AdvReac Type Severity Reaction Status Date / Time azithromycin Allergy Rash/Hives Verified 09/27/16 03:01 [From Zithromax Z-Mehrdad] cimetidine [From Tagamet] Allergy Unknown Verified 09/27/16 03:01 ether [Ether] Allergy Anaphylaxis Verified 09/27/16 03:01 Fish Containing Products Allergy Anaphylaxis Verified 09/27/16 03:01 [Fish] fluphenazine enanthate Allergy Unknown Verified 09/27/16 03:01 [From Prolixin] fluphenazine HCl Allergy Unknown Verified 09/27/16 03:01 [From Prolixin] haloperidol [From Haldol] Allergy Unknown Verified 09/27/16 03:01 haloperidol lactate Allergy Unknown Verified 09/27/16 03:01 [From Haldol] ketorolac tromethamine Allergy Rash/Hives Verified 09/27/16 03:01 [From Toradol] ziprasidone HCl [From Geodon] Allergy Unknown Verified 09/27/16 03:01 ziprasidone mesylate Allergy Unknown Verified 09/27/16 03:01 [From Geodon] Sulfa (Sulfonamide AdvReac Nausea & Verified 09/27/16 03:01 Antibiotics) Vomiting Review of Systems ROS Statement: Those systems with pertinent positive or pertinent negative responses have been documented in the HPI. ROS Other: All systems not noted in ROS Statement are negative. Past Medical History Past Medical History: Asthma, GERD/Reflux, Hyperlipidemia, Musculoskeletal Disorder, Neurologic Disorder, Osteoarthritis (OA), Seizure Disorder Additional Past Medical History / Comment(s): RSD-left foot, INTERSTITAIL CYSTITIS, BRONCHITIS, PT "STATED THAT DR THOUGHT SHE MAY HAVE HAD A SMALL FL 5 YEARS AGO".HEMORROIDS,MIGRAINES-GETS INJECTIONS IN NECK FOR THEM, INSOMNIA. Vertigo History of Any Multi-Drug Resistant Organisms: MRSA Date of last positivie culture/infection: 04/20/15 MDRO Source:: Left Axilla Past Surgical History: Adenoidectomy, Back Surgery, Orthopedic Surgery, Tonsillectomy Additional Past Surgical History / Comment(s): bilateral foot surgery d/t rsd, numerous pain clinic procedures, nerve stimulator in back to tx RSD placed 05/23. three new nerve stimulators to back placed in Nov 11 2015, 05-15-16 EGD W/ BX-SMALL SLIDING HIATAL HERNIA/GASTRITIS. Additional Past Anesthesia/Blood Transfusion Reaction / Comment(s): Pt recieved blood when she was 2 yrs old after tonsillectomy. WHEN BABY HEART STOPPED TWICE- PT STATED SHE WAS ALLERGIC TO ETHER. Past Psychological History: Anxiety, Bipolar, Depression, PTSD Smoking Status: Never smoker Past Alcohol Use History: None Reported Past Drug Use History: Marijuana - Past Family History Father History Unknown: Yes Mother Family Medical History: Cancer, CVA/TIA, Myocardial Infarction ([place]) Additional Family Medical History / Comment(s): Mother has had 5 CVAs, 3 MIs and UTERINE CANCER General Exam - General Exam Comments Initial Comments: Laying in exam room, no acute distress. Limitations: no limitations General appearance: alert, in no apparent distress Head exam: Present: atraumatic, normocephalic, normal inspection Eye exam: Present: normal appearance ENT exam: Present: normal exam Neck exam: Present: normal inspection Respiratory exam: Absent: respiratory distress Rectal exam: Present: hemorrhoids (Nonthrombosed) Extremities exam: Present: normal inspection Back exam: Present: normal inspection Neurological exam: Present: alert, oriented X3, CN II-XII intact, normal gait Psychiatric exam: Present: normal affect, normal mood Skin exam: Present: warm, dry, intact, normal color. Absent: rash Course Vital Signs 09/27/16 02:58 Temperature 98.4 F Pulse Rate 104 H Respiratory 18 Rate Blood Pressure 136/79 O2 Sat by Pulse 96 Oximetry Medical Decision Making - Medical Decision Making Patient is a 30-year-old female presents emergency room for evaluation of rectal /anal pain. Patient does have an external hemorrhoid. Hemorrhoid does not appear to be thrombosed. Patient given benzocaine rectal ointment while she was here. Patient will be sent home with Anusol and witch jama wipes. Patient states she understands everything that was discussed with her. Return parameters discussed. Case discussed with Dr. Hernandez. Disposition Clinical Impression: Anal or rectal pain, Hemorrhoid Disposition: HOME SELF-CARE Condition: Good Instructions: Hemorrhoids (ED) Additional Instructions: Apply ointment up to 4 times a day as needed for pain. Apply Anusol twice a day as needed. Use witch jama wipes up to 6 times a day after each bowel movement. Sitz baths. Continue taking at home pain medications as needed. Please follow up with primary care provider in 1-2 days. If any new symptom arises or symptoms worsen, return to ER as soon as possible. Prescriptions: Witch Jama [Preparation H Pad/Wipe] 1 applic TOPICAL Q4HR PRN #30 pad PRN Reason: Pain Hydrocortisone Suppository [Anusol-Hc] 25 mg RECTAL BID PRN #10 supp PRN Reason: Pain Referrals: Gustaov Chappell MD [Primary Care Provider] - 1-2 days Time of Disposition: 03:26
== END 2016-09-27 03:47 | disposition home or self-care (01) ==
LOC: EC 02:53
DX: K64.4 Residual hemorrhoidal skin tags (principal); R19.7 Diarrhea, unspecified; J45.909 Unspecified asthma, uncomplicated; N30.10 Interstitial cystitis (chronic) without hematuria; K21.9 Gastro-esophageal reflux disease without esophagitis; G40.909 Epilepsy, unspecified, not intractable, without status epilepticus; F31.9 Bipolar disorder, unspecified; F41.9 Anxiety disorder, unspecified; G58.9 Mononeuropathy, unspecified; Z79.3 Long term (current) use of hormonal contraceptives; Z79.899 Other long term (current) drug therapy; Z88.1 Allergy status to other antibiotic agents; Z88.2 Allergy status to sulfonamides; Z88.6 Allergy status to analgesic agent; Z88.8 Allergy status to other drugs, medicaments and biological substances; Z91.013 Allergy to seafood; Z87.898 Personal history of other specified conditions
CPT/HCPCS: 99283

== ENCOUNTER 2016-10-16 21:02 | Emergency (ER) | payer MEDICARE, OTHER ==
[2016-10-16 21:07] VITALS: BP 121/79; PULSE 99; RESP 20; TEMP 99
[2016-10-16] MEDS ORDERED: HYDROmorphone 1 MG/ML 1 ML SYRINGE IM STA (21:39)
--- NOTE | 2016-10-16 21:43 | ED ---
Extremity Problem HPI - General Chief complaint: Extremity Problem,Nontraumatic Stated complaint: Foot pain Time Seen by Provider: 10/16/16 21:12 Source: patient, RN notes reviewed, old records reviewed Mode of arrival: wheelchair Limitations: no limitations - Related Data Home Medications Medication Instructions Recorded Confirmed Gemfibrozil [Lopid] 600 mg PO BID 11/22/13 10/16/16 Medroxyprogesterone Acetate 150 mg IM Q84D 11/22/13 10/16/16 [Depo-Provera] rOPINIRole HCL [Requip] 1 mg PO HS 11/22/13 10/16/16 Montelukast [Singulair] 10 mg PO HS 10/07/14 10/16/16 Pentosan Polysulfate Sodium 100 mg PO BID 02/10/15 10/16/16 [Elmiron] Pantoprazole Sodium [Protonix] 40 mg PO DAILY 04/20/15 10/16/16 Ondansetron HCl [Zofran] 8 mg PO Q8HR PRN 05/01/15 10/16/16 Beclomethasone Dipropionate [Qvar 2 puff INHALATION RT-BID PRN 06/07/15 10/16/16 80 mcg/puff] Benztropine Mesylate [Cogentin] 1 mg PO BID 08/29/15 10/16/16 Acyclovir [Zovirax] 400 - 800 mg PO DAILY PRN 09/28/15 10/16/16 SUMAtriptan SUCCINATE [Imitrex] 50 mg PO DAILY PRN 09/28/15 10/16/16 carBAMazepine [TEGretol XR] 100 mg PO QAM 12/02/15 10/16/16 Prazosin HCl [Minipress] 2 mg PO HS 01/04/16 10/16/16 carBAMazepine [TEGretol XR] 200 mg PO BID 01/04/16 10/16/16 tiZANidine [Zanaflex] 4 mg PO Q6HR PRN 01/04/16 10/16/16 traZODone HCL [Desyrel] 300 mg PO HS 01/04/16 10/16/16 Tiotropium 18 Mcg/Puff [Spiriva] 1 cap INHALATION RT-DAILY 01/27/16 10/16/16 Albuterol Inhaler [Ventolin Hfa 2 puff INHALATION RT-QID PRN 06/14/16 10/16/16 Inhaler] Gabapentin 600 mg PO BID 06/14/16 10/16/16 HYDROcodone/APAP 7.5-325MG [[place] 1 tab PO Q6HR PRN 07/20/16 10/16/16 7.5-325] Hydrochlorothiazide [Hydrodiuril] 25 mg PO DAILY 07/20/16 10/16/16 Paliperidone Palmitate [Invega 117 mg IM Q28D 07/20/16 10/16/16 Sustenna] carBAMazepine [TEGretol XR] 200 mg PO HS 07/20/16 10/16/16 Previous Rx's Medication Instructions Recorded Sucralfate [Carafate] 1 gm PO QID #24 tablet 09/12/16 Hydrocortisone Suppository 25 mg RECTAL BID PRN #10 supp 09/27/16 [Anusol-Hc] Rhona March [Preparation H 1 applic TOPICAL Q4HR PRN #30 pad 09/27/16 Pad/Wipe] Allergies Allergy/AdvReac Type Severity Reaction Status Date / Time azithromycin Allergy Rash/Hives Verified 10/16/16 21:24 [From Zithromax Z-Mehrdad] cimetidine [From Tagamet] Allergy Unknown Verified 10/16/16 21:24 ether [Ether] Allergy Anaphylaxis Verified 10/16/16 21:24 Fish Containing Products Allergy Anaphylaxis Verified 10/16/16 21:24 [Fish] fluphenazine enanthate Allergy Unknown Verified 10/16/16 21:24 [From Prolixin] fluphenazine HCl Allergy Unknown Verified 10/16/16 21:24 [From Prolixin] haloperidol [From Haldol] Allergy Unknown Verified 10/16/16 21:24 haloperidol lactate Allergy Unknown Verified 10/16/16 21:24 [From Haldol] ketorolac tromethamine Allergy Rash/Hives Verified 10/16/16 21:24 [From Toradol] ziprasidone HCl [From Geodon] Allergy Unknown Verified 10/16/16 21:24 ziprasidone mesylate Allergy Unknown Verified 10/16/16 21:24 [From Geodon] Sulfa (Sulfonamide AdvReac Nausea & Verified 10/16/16 21:24 Antibiotics) Vomiting Review of Systems ROS Statement: Those systems with pertinent positive or pertinent negative responses have been documented in the HPI. ROS Other: All systems not noted in ROS Statement are negative. Past Medical History Past Medical History: Asthma, GERD/Reflux, Hyperlipidemia, Musculoskeletal Disorder, Neurologic Disorder, Osteoarthritis (OA), Seizure Disorder Additional Past Medical History / Comment(s): RSD-left foot, INTERSTITAIL CYSTITIS, BRONCHITIS, PT "STATED THAT DR THOUGHT SHE MAY HAVE HAD A SMALL OH 5 YEARS AGO".HEMORROIDS,MIGRAINES-GETS INJECTIONS IN NECK FOR THEM, INSOMNIA. Vertigo History of Any Multi-Drug Resistant Organisms: MRSA Date of last positivie culture/infection: 04/20/15 MDRO Source:: Left Axilla Past Surgical History: Adenoidectomy, Back Surgery, Orthopedic Surgery, Tonsillectomy Additional Past Surgical History / Comment(s): bilateral foot surgery d/t rsd, numerous pain clinic procedures, nerve stimulator in back to tx RSD placed 05/23. three new nerve stimulators to back placed in Nov 11 2015, 05-15-16 EGD W/ BX-SMALL SLIDING HIATAL HERNIA/GASTRITIS. Additional Past Anesthesia/Blood Transfusion Reaction / Comment(s): Pt recieved blood when she was 2 yrs old after tonsillectomy. WHEN BABY HEART STOPPED TWICE- PT STATED SHE WAS ALLERGIC TO ETHER. Past Psychological History: Anxiety, Bipolar, Depression, PTSD Smoking Status: Never smoker Past Alcohol Use History: None Reported Past Drug Use History: Marijuana - Past Family History Father History Unknown: Yes Mother Family Medical History: Cancer, CVA/TIA, Myocardial Infarction ([place]) Additional Family Medical History / Comment(s): Mother has had 5 CVAs, 3 MIs and UTERINE CANCER General Exam Limitations: no limitations Course Vital Signs 10/16/16 21:05 Temperature 99 F Pulse Rate 99 Respiratory 20 Rate Blood Pressure 121/79 O2 Sat by Pulse 97 Oximetry Disposition Clinical Impression: Chronic foot pain Disposition: HOME SELF-CARE Condition: Stable Instructions: Chronic Pain (ED) Additional Instructions: Patient has a follow-up with her primary care provider tomorrow. Adjust stimulator appropriately. Return to emergency department if any alarming signs or symptoms occur. Referrals: Gustavo Chappell MD [Primary Care Provider] - 1-2 days Time of Disposition: 21:40
== END 2016-10-16 21:49 | disposition home or self-care (01) ==
LOC: EC 21:02
DX: G89.29 Other chronic pain (principal); M79.673 Pain in unspecified foot; J45.909 Unspecified asthma, uncomplicated; K21.9 Gastro-esophageal reflux disease without esophagitis; E78.5 Hyperlipidemia, unspecified; G40.909 Epilepsy, unspecified, not intractable, without status epilepticus; M19.90 Unspecified osteoarthritis, unspecified site; F31.9 Bipolar disorder, unspecified; F41.9 Anxiety disorder, unspecified; F43.10 Post-traumatic stress disorder, unspecified; Z88.1 Allergy status to other antibiotic agents; Z88.2 Allergy status to sulfonamides; Z88.5 Allergy status to narcotic agent; Z88.8 Allergy status to other drugs, medicaments and biological substances; Z91.013 Allergy to seafood; Z79.899 Other long term (current) drug therapy
CPT/HCPCS: 99283; 96372; J1170

== ENCOUNTER 2016-10-24 20:30 | Emergency (ER) | payer MEDICARE, OTHER ==
[2016-10-24 20:40] VITALS: BP 152/72; PULSE 78; RESP 18; TEMP 97.1
[2016-10-24] MEDS ORDERED: KETOROLAC 60 MG/2 ML VIAL IM STA (20:46)
[2016-10-24] MEDS ORDERED: diphenhydrAMINE 25 MG CAP PO STA (20:49)
--- NOTE | 2016-10-24 20:56 | ED ---
General Adult HPI - General Chief complaint: Extremity Injury, Upper Stated complaint: wrist pain/has cast Time Seen by Provider: 10/24/16 20:41 Source: patient, RN notes reviewed Mode of arrival: ambulatory Limitations: no limitations - History of Present Illness Initial comments: 30-year-old female presents emergency room chief complaint of pain to the right arm. Patient states she's broken and she is in a cast. Patient states she's now some throbbing to the area so she was concerned. Patient denies any numbness or tingling to the fingers. Patient denies any swelling. Patient states it feels the same as when she put on. Patient states she took a Motrin [place] home but she still pain so she thought that there could be something wrong. Patient states with orthopedic associates in the plan. Denies any other symptoms at this time.Patient denies any recent fever, chills, shortness of breath, chest pain, back pain, abdominal pain, nausea vomiting, numbness or tingling, dysuria or hematuria, constipation or diarrhea, headaches or visual changes, or any other current symptoms. - Related Data Home Medications Medication Instructions Recorded Confirmed Gemfibrozil [Lopid] 600 mg PO BID 11/22/13 10/16/16 Medroxyprogesterone Acetate 150 mg IM Q84D 11/22/13 10/16/16 [Depo-Provera] rOPINIRole HCL [Requip] 1 mg PO HS 11/22/13 10/16/16 Montelukast [Singulair] 10 mg PO HS 10/07/14 10/16/16 Pentosan Polysulfate Sodium 100 mg PO BID 02/10/15 10/16/16 [Elmiron] Pantoprazole Sodium [Protonix] 40 mg PO DAILY 04/20/15 10/16/16 Ondansetron HCl [Zofran] 8 mg PO Q8HR PRN 05/01/15 10/16/16 Beclomethasone Dipropionate [Qvar 2 puff INHALATION RT-BID PRN 06/07/15 10/16/16 80 mcg/puff] Benztropine Mesylate [Cogentin] 1 mg PO BID 08/29/15 10/16/16 Acyclovir [Zovirax] 400 - 800 mg PO DAILY PRN 09/28/15 10/16/16 SUMAtriptan SUCCINATE [Imitrex] 50 mg PO DAILY PRN 09/28/15 10/16/16 carBAMazepine [TEGretol XR] 100 mg PO QAM 12/02/15 10/16/16 Prazosin HCl [Minipress] 2 mg PO HS 01/04/16 10/16/16 carBAMazepine [TEGretol XR] 200 mg PO BID 01/04/16 10/16/16 tiZANidine [Zanaflex] 4 mg PO Q6HR PRN 01/04/16 10/16/16 traZODone HCL [Desyrel] 300 mg PO HS 01/04/16 10/16/16 Tiotropium 18 Mcg/Puff [Spiriva] 1 cap INHALATION RT-DAILY 01/27/16 10/16/16 Albuterol Inhaler [Ventolin Hfa 2 puff INHALATION RT-QID PRN 06/14/16 10/16/16 Inhaler] Gabapentin 600 mg PO BID 06/14/16 10/16/16 HYDROcodone/APAP 7.5-325MG [[place] 1 tab PO Q6HR PRN 07/20/16 10/16/16 7.5-325] Hydrochlorothiazide [Hydrodiuril] 25 mg PO DAILY 07/20/16 10/16/16 Paliperidone Palmitate [Invega 117 mg IM Q28D 07/20/16 10/16/16 Sustenna] carBAMazepine [TEGretol XR] 200 mg PO HS 07/20/16 10/16/16 Previous Rx's Medication Instructions Recorded Sucralfate [Carafate] 1 gm PO QID #24 tablet 09/12/16 Hydrocortisone Suppository 25 mg RECTAL BID PRN #10 supp 09/27/16 [Anusol-Hc] Rhona March [Preparation H 1 applic TOPICAL Q4HR PRN #30 pad 09/27/16 Pad/Wipe] Allergies Allergy/AdvReac Type Severity Reaction Status Date / Time azithromycin Allergy Rash/Hives Verified 10/16/16 21:24 [From Zithromax Z-Mehrdad] cimetidine [From Tagamet] Allergy Unknown Verified 10/16/16 21:24 ether [Ether] Allergy Anaphylaxis Verified 10/16/16 21:24 Fish Containing Products Allergy Anaphylaxis Verified 10/16/16 21:24 [Fish] fluphenazine enanthate Allergy Unknown Verified 10/16/16 21:24 [From Prolixin] fluphenazine HCl Allergy Unknown Verified 10/16/16 21:24 [From Prolixin] haloperidol [From Haldol] Allergy Unknown Verified 10/16/16 21:24 haloperidol lactate Allergy Unknown Verified 10/16/16 21:24 [From Haldol] ketorolac tromethamine Allergy Rash/Hives Verified 10/16/16 21:24 [From Toradol] ziprasidone HCl [From Geodon] Allergy Unknown Verified 10/16/16 21:24 ziprasidone mesylate Allergy Unknown Verified 10/16/16 21:24 [From Geodon] Sulfa (Sulfonamide AdvReac Nausea & Verified 10/16/16 21:24 Antibiotics) Vomiting Review of Systems ROS Statement: Those systems with pertinent positive or pertinent negative responses have been documented in the HPI. ROS Other: All systems not noted in ROS Statement are negative. Past Medical History Past Medical History: Asthma, GERD/Reflux, Hyperlipidemia, Musculoskeletal Disorder, Neurologic Disorder, Osteoarthritis (OA), Seizure Disorder Additional Past Medical History / Comment(s): RSD-left foot, INTERSTITAIL CYSTITIS, BRONCHITIS, PT "STATED THAT DR THOUGHT SHE MAY HAVE HAD A SMALL ID 5 YEARS AGO".HEMORROIDS,MIGRAINES-GETS INJECTIONS IN NECK FOR THEM, INSOMNIA. Vertigo History of Any Multi-Drug Resistant Organisms: MRSA Date of last positivie culture/infection: 04/20/15 MDRO Source:: Left Axilla Past Surgical History: Adenoidectomy, Back Surgery, Orthopedic Surgery, Tonsillectomy Additional Past Surgical History / Comment(s): bilateral foot surgery d/t rsd, numerous pain clinic procedures, nerve stimulator in back to tx RSD placed 05/23. three new nerve stimulators to back placed in Nov 11 2015, 05-15-16 EGD W/ BX-SMALL SLIDING HIATAL HERNIA/GASTRITIS. Additional Past Anesthesia/Blood Transfusion Reaction / Comment(s): Pt recieved blood when she was 2 yrs old after tonsillectomy. WHEN BABY HEART STOPPED TWICE- PT STATED SHE WAS ALLERGIC TO ETHER. Past Psychological History: Anxiety, Bipolar, Depression, PTSD Smoking Status: Never smoker Past Alcohol Use History: None Reported Past Drug Use History: Marijuana - Past Family History Father History Unknown: Yes Mother Family Medical History: Cancer, CVA/TIA, Myocardial Infarction ([place]) Additional Family Medical History / Comment(s): Mother has had 5 CVAs, 3 MIs and UTERINE CANCER General Exam - General Exam Comments Initial Comments: General: The patient is awake and alert, in no distress, and does not appear acutely ill. Neck: The neck is supple, there is no tenderness or JVD. Cardiovascular: There is a regular rate and rhythm. No murmur, rub or gallop is appreciated. Respiratory: Lungs are clear to auscultation, respirations are non-labored, breath sounds are equal. No wheezes, stridor, rales, or rhonchi. Musculoskeletal: Sensation intact patient does have a cast to the right arm there is full range of motion of the digits no swelling less than 2 capillary refill. Full range motion of the right elbow. Neurological: CN II-XII intact, There are no obvious motor or sensory deficits. Coordination appears grossly intact. Speech is normal. Skin: Skin is warm and dry and no rashes or lesions are noted. Psychiatric: Normal mood and affect. Limitations: no limitations Course Vital Signs 10/24/16 20:35 Temperature 97.1 F L Pulse Rate 78 Respiratory 18 Rate Blood Pressure 152/72 O2 Sat by Pulse 94 L Oximetry Medical Decision Making - Medical Decision Making 30-year-old female presents emergency Department chief complaint of right wrist pain. Patient does have decreased recent fracture. This time Discussed the does not appear to be too tight. Patient has good range of motion left she had a refill. This time we did discuss that we will have her continue to watch her. We discussed elevation we discussed resting. We discussed return parameters and care. Patient stated that she understood and she feels this plan. This time she'll be discharged home. Disposition Clinical Impression: Right wrist pain Disposition: HOME SELF-CARE Condition: Stable Instructions: Cast Care (ED) Additional Instructions: Please use medication as discussed. Please follow up with family doctor if symptoms have not improved over the next two days. Please return to the emergency room if your symptoms increase or worsen or for any other concerns. Referrals: Gustavo Chappell MD [Primary Care Provider] - 1-2 days Time of Disposition: 20:56
== END 2016-10-24 21:15 | disposition home or self-care (01) ==
LOC: EC 20:30
DX: M25.531 Pain in right wrist (principal); K21.9 Gastro-esophageal reflux disease without esophagitis; J45.909 Unspecified asthma, uncomplicated; G25.81 Restless legs syndrome; E78.5 Hyperlipidemia, unspecified; F31.9 Bipolar disorder, unspecified; F41.9 Anxiety disorder, unspecified; F43.10 Post-traumatic stress disorder, unspecified; Z86.14 Personal history of Methicillin resistant Staphylococcus aureus infection; Z79.52 Long term (current) use of systemic steroids; Z79.899 Other long term (current) drug therapy; Z88.1 Allergy status to other antibiotic agents; Z88.2 Allergy status to sulfonamides; Z88.6 Allergy status to analgesic agent; Z88.8 Allergy status to other drugs, medicaments and biological substances; Z91.013 Allergy to seafood; Z91.048 Other nonmedicinal substance allergy status
CPT/HCPCS: 99283; 96372; J1885

== ENCOUNTER 2016-10-31 00:26 | Emergency (ER) | payer MEDICARE, OTHER ==
[2016-10-31] MEDS ORDERED: HYDROmorphone 1 MG/ML 1 ML SYRINGE IVP STA ×3 (01:28→05:56)
[2016-10-31] MEDS ORDERED: SODIUM CHLORIDE 0.9% 1,000 ML IV ONE (01:28)
[2016-10-31] MEDS ORDERED: ONDANSETRON 4 MG/2 ML VIAL IVP STA ×2 (01:28→06:59)
--- NOTE | 2016-10-31 01:31 | ED ---
Abdominal Pain HPI - General Chief Complaint: Abdominal Pain Stated Complaint: abd pain,vomiting Time Seen by Provider: 10/31/16 00:57 Source: patient, RN notes reviewed Mode of arrival: ambulatory Limitations: no limitations - History of Present Illness Initial Comments: Patient is a 30-year-old female presents to the emergency room for evaluation of abdominal pain. Patient states she has a history of chronic vomiting and diarrhea. Patient states she has chronic abdominal pain. Patient states she takes daily Zofran, protonic and Carafate. Patient states she woke up this morning with right upper quadrant pain. Patient states this pain is different from her normal pain. Patient denies history of abdominal surgeries. Patient also admits that about a week ago she fell breaking her right forearm and also leaning on the right side of her ribs. Patient states she didn't have any pain after the fall. Patient states she noticed a small bruise that has gone anyway. Patient states she's not sure if this pain is related to the fall week ago. Patient denies shortness of breath. Patient denies chest pain. Patient states she's been vomiting more frequently today. Patient denies pain or burning during urination, trouble urinating or blood in urine. Patient denies any fevers or chills. Patient states she has been unable to keep down any of her medications due to vomiting. - Related Data Home Medications Medication Instructions Recorded Confirmed Gemfibrozil [Lopid] 600 mg PO BID 11/22/13 10/16/16 Medroxyprogesterone Acetate 150 mg IM Q84D 11/22/13 10/16/16 [Depo-Provera] rOPINIRole HCL [Requip] 1 mg PO HS 11/22/13 10/16/16 Montelukast [Singulair] 10 mg PO HS 10/07/14 10/16/16 Pentosan Polysulfate Sodium 100 mg PO BID 02/10/15 10/16/16 [Elmiron] Pantoprazole Sodium [Protonix] 40 mg PO DAILY 04/20/15 10/16/16 Ondansetron HCl [Zofran] 8 mg PO Q8HR PRN 05/01/15 10/16/16 Beclomethasone Dipropionate [Qvar 2 puff INHALATION RT-BID PRN 06/07/15 10/16/16 80 mcg/puff] Benztropine Mesylate [Cogentin] 1 mg PO BID 08/29/15 10/16/16 Acyclovir [Zovirax] 400 - 800 mg PO DAILY PRN 09/28/15 10/16/16 SUMAtriptan SUCCINATE [Imitrex] 50 mg PO DAILY PRN 09/28/15 10/16/16 carBAMazepine [TEGretol XR] 100 mg PO QAM 12/02/15 10/16/16 Prazosin HCl [Minipress] 2 mg PO HS 01/04/16 10/16/16 carBAMazepine [TEGretol XR] 200 mg PO BID 01/04/16 10/16/16 tiZANidine [Zanaflex] 4 mg PO Q6HR PRN 01/04/16 10/16/16 traZODone HCL [Desyrel] 300 mg PO HS 01/04/16 10/16/16 Tiotropium 18 Mcg/Puff [Spiriva] 1 cap INHALATION RT-DAILY 01/27/16 10/16/16 Albuterol Inhaler [Ventolin Hfa 2 puff INHALATION RT-QID PRN 06/14/16 10/16/16 Inhaler] Gabapentin 600 mg PO BID 06/14/16 10/16/16 HYDROcodone/APAP 7.5-325MG [[place] 1 tab PO Q6HR PRN 07/20/16 10/16/16 7.5-325] Hydrochlorothiazide [Hydrodiuril] 25 mg PO DAILY 07/20/16 10/16/16 Paliperidone Palmitate [Invega 117 mg IM Q28D 07/20/16 10/16/16 Sustenna] carBAMazepine [TEGretol XR] 200 mg PO HS 07/20/16 10/16/16 Previous Rx's Medication Instructions Recorded Sucralfate [Carafate] 1 gm PO QID #24 tablet 09/12/16 Hydrocortisone Suppository 25 mg RECTAL BID PRN #10 supp 09/27/16 [Anusol-Hc] Rhona March [Preparation H 1 applic TOPICAL Q4HR PRN #30 pad 09/27/16 Pad/Wipe] Allergies Allergy/AdvReac Type Severity Reaction Status Date / Time azithromycin Allergy Rash/Hives Verified 10/31/16 00:39 [From Zithromax Z-Mehrdad] cimetidine [From Tagamet] Allergy Unknown Verified 10/31/16 00:39 ether [Ether] Allergy Anaphylaxis Verified 10/31/16 00:39 Fish Containing Products Allergy Anaphylaxis Verified 10/31/16 00:39 [Fish] fluphenazine enanthate Allergy Unknown Verified 10/31/16 00:39 [From Prolixin] fluphenazine HCl Allergy Unknown Verified 10/31/16 00:39 [From Prolixin] haloperidol [From Haldol] Allergy Unknown Verified 10/31/16 00:39 haloperidol lactate Allergy Unknown Verified 10/31/16 00:39 [From Haldol] ketorolac tromethamine Allergy Rash/Hives Verified 10/31/16 00:39 [From Toradol] ziprasidone HCl [From Geodon] Allergy Unknown Verified 10/31/16 00:39 ziprasidone mesylate Allergy Unknown Verified 10/31/16 00:39 [From Geodon] Sulfa (Sulfonamide AdvReac Nausea & Verified 10/31/16 00:39 Antibiotics) Vomiting Review of Systems ROS Statement: Those systems with pertinent positive or pertinent negative responses have been documented in the HPI. ROS Other: All systems not noted in ROS Statement are negative. Past Medical History Past Medical History: Asthma, GERD/Reflux, Hyperlipidemia, Musculoskeletal Disorder, Neurologic Disorder, Osteoarthritis (OA), Seizure Disorder Additional Past Medical History / Comment(s): RSD-left foot, INTERSTITAIL CYSTITIS, BRONCHITIS, PT "STATED THAT DR THOUGHT SHE MAY HAVE HAD A SMALL NE 5 YEARS AGO".HEMORROIDS,MIGRAINES-GETS INJECTIONS IN NECK FOR THEM, INSOMNIA. Vertigo History of Any Multi-Drug Resistant Organisms: MRSA Date of last positivie culture/infection: 04/20/15 MDRO Source:: Left Axilla Past Surgical History: Adenoidectomy, Back Surgery, Orthopedic Surgery, Tonsillectomy Additional Past Surgical History / Comment(s): bilateral foot surgery d/t rsd, numerous pain clinic procedures, nerve stimulator in back to tx RSD placed 05/23. three new nerve stimulators to back placed in Nov 11 2015, 05-15-16 EGD W/ BX-SMALL SLIDING HIATAL HERNIA/GASTRITIS. Additional Past Anesthesia/Blood Transfusion Reaction / Comment(s): Pt recieved blood when she was 2 yrs old after tonsillectomy. WHEN BABY HEART STOPPED TWICE- PT STATED SHE WAS ALLERGIC TO ETHER. Past Psychological History: Anxiety, Bipolar, Depression, PTSD Smoking Status: Never smoker Past Alcohol Use History: None Reported Past Drug Use History: Marijuana - Past Family History Father History Unknown: Yes Mother Family Medical History: Cancer, CVA/TIA, Myocardial Infarction ([place]) Additional Family Medical History / Comment(s): Mother has had 5 CVAs, 3 MIs and UTERINE CANCER General Exam - General Exam Comments Initial Comments: sitting up in exam room, no acute distress. Limitations: no limitations General appearance: alert, in no apparent distress Head exam: Present: atraumatic, normocephalic, normal inspection Eye exam: Present: normal appearance ENT exam: Present: normal exam Neck exam: Present: normal inspection Respiratory exam: Present: normal lung sounds bilaterally. Absent: respiratory distress Cardiovascular Exam: Present: regular rate, normal rhythm, normal heart sounds GI/Abdominal exam: Present: soft, tenderness (right upper quadrant), normal bowel sounds. Absent: distended, guarding, rebound, rigid Extremities exam: Absent: normal inspection (short arm purple cast over right arm) Back exam: Present: normal inspection Neurological exam: Present: alert, oriented X3, CN II-XII intact Psychiatric exam: Present: normal affect, normal mood Skin exam: Present: warm, dry, intact, normal color. Absent: rash Course Vital Signs 10/31/16 10/31/16 10/31/16 00:39 06:43 08:10 Temperature 98.2 F 97.6 F 97.4 F L Pulse Rate 90 100 94 Respiratory 24 20 18 Rate Blood Pressure 147/79 155/80 161/91 O2 Sat by Pulse 100 97 96 Oximetry Medical Decision Making - Medical Decision Making Patient 30-year-old female presents to the emergency room for evaluation of abdominal pain, nausea and vomiting. Patient states this abdominal pain is different from her normal pain. Ultrasound showed no acute findings. Labs within normal limits. CT shows no acute findings. Patient will be discharged home. - Lab Data Result diagrams: 10/31/16 01:30 10/31/16 01:30 Lab Results 10/31/16 10/31/16 10/31/16 Range/Units 01:30 01:30 01:30 WBC (3.8-10.6) k/uL RBC (3.80-5.40) m/uL Hgb (11.4-16.0) gm/dL Hct (34.0-46.0) % MCV (80.0-100.0) fL MCH (25.0-35.0) pg MCHC (31.0-37.0) g/dL RDW (11.5-15.5) % Plt Count (150-450) k/uL Neutrophils % % Lymphocytes % % Monocytes % % Eosinophils % % Basophils % % Neutrophils # (1.3-7.7) k/uL Lymphocytes # (1.0-4.8) k/uL Monocytes # (0-1.0) k/uL Eosinophils # (0-0.7) k/uL Basophils # (0-0.2) k/uL Sodium 140 (137-145) mmol/L Potassium 3.3 L (3.5-5.1) mmol/L Chloride 103 (98-107) mmol/L Carbon Dioxide 21 L (22-30) mmol/L Anion Gap 16 mmol/L BUN 13 (7-17) mg/dL Creatinine 0.80 (0.52-1.04) mg/dL Est GFR (MDRD) Af Amer >60 (>60 ml/min/1.73 sqM) Est GFR (MDRD) Non-Af >60 (>60 ml/min/1.73 sqM) Glucose 92 (74-99) mg/dL Calcium 9.8 (8.4-10.2) mg/dL Magnesium 1.7 (1.6-2.3) mg/dL Total Bilirubin 0.4 (0.2-1.3) mg/dL AST 15 (14-36) U/L ALT 26 (9-52) U/L Alkaline Phosphatase 106 (38-126) U/L Total Protein 6.9 (6.3-8.2) g/dL Albumin 4.6 (3.5-5.0) g/dL Amylase 53 (30-110) U/L Lipase 53 (23-300) U/L Urine Color Yellow Urine Appearance Cloudy H (Clear) Urine pH 6.0 (5.0-8.0) Ur Specific [place] 1.022 (1.001-1.035) Urine Protein Trace H (Negative) Urine Glucose (UA) Negative (Negative) Urine Ketones Negative (Negative) Urine Blood Negative (Negative) Urine Nitrite Negative (Negative) Urine Bilirubin Negative (Negative) Urine Urobilinogen <2.0 (<2.0) mg/dL Ur Leukocyte Esterase Negative (Negative) Urine RBC <1 (0-5) /hpf Urine WBC 1 (0-5) /hpf Ur Squamous Epith Cells 17 H (0-4) /hpf Urine Bacteria Rare H (None) /hpf Urine Mucus Occasional H (None) /hpf Urine HCG, Qual Not Detected (Not Detectd) 10/31/16 Range/Units 01:30 WBC 6.9 (3.8-10.6) k/uL RBC 4.68 (3.80-5.40) m/uL Hgb 14.8 (11.4-16.0) gm/dL Hct 41.7 (34.0-46.0) % MCV 89.1 (80.0-100.0) fL MCH 31.6 (25.0-35.0) pg MCHC 35.5 (31.0-37.0) g/dL RDW 13.8 (11.5-15.5) % Plt Count 304 (150-450) k/uL Neutrophils % 57 % Lymphocytes % 33 % Monocytes % 7 % Eosinophils % 2 % Basophils % 1 % Neutrophils # 3.9 (1.3-7.7) k/uL Lymphocytes # 2.3 (1.0-4.8) k/uL Monocytes # 0.5 (0-1.0) k/uL Eosinophils # 0.1 (0-0.7) k/uL Basophils # 0.1 (0-0.2) k/uL Sodium (137-145) mmol/L Potassium (3.5-5.1) mmol/L Chloride (98-107) mmol/L Carbon Dioxide (22-30) mmol/L Anion Gap mmol/L BUN (7-17) mg/dL Creatinine (0.52-1.04) mg/dL Est GFR (MDRD) Af Amer (>60 ml/min/1.73 sqM) Est GFR (MDRD) Non-Af (>60 ml/min/1.73 sqM) Glucose (74-99) mg/dL Calcium (8.4-10.2) mg/dL Magnesium (1.6-2.3) mg/dL Total Bilirubin (0.2-1.3) mg/dL AST (14-36) U/L ALT (9-52) U/L Alkaline Phosphatase (38-126) U/L Total Protein (6.3-8.2) g/dL Albumin (3.5-5.0) g/dL Amylase (30-110) U/L Lipase (23-300) U/L Urine Color Urine Appearance (Clear) Urine pH (5.0-8.0) Ur Specific [place] (1.001-1.035) Urine Protein (Negative) Urine Glucose (UA) (Negative) Urine Ketones (Negative) Urine Blood (Negative) Urine Nitrite (Negative) Urine Bilirubin (Negative) Urine Urobilinogen (<2.0) mg/dL Ur Leukocyte Esterase (Negative) Urine RBC (0-5) /hpf Urine WBC (0-5) /hpf Ur Squamous Epith Cells (0-4) /hpf Urine Bacteria (None) /hpf Urine Mucus (None) /hpf Urine HCG, Qual (Not Detectd) - Radiology Data Radiology results: report reviewed, image reviewed Disposition Clinical Impression: Abdominal pain, Nausea and vomiting Disposition: HOME SELF-CARE Condition: Good Instructions: Acute Nausea and Vomiting (ED), Abdominal Pain (ED) Additional Instructions: Continue taking at home medications as needed. Please follow up with primary care provider in 1-2 days. If any new symptom arises or symptoms worsen, return to ER as soon as possible. Referrals: Gustavo Chappell MD [Primary Care Provider] - 1-2 days Time of Disposition: 03:08
[2016-10-31 02:09] LABS: Basophils # (A) 0.1 k/uL (0-0.2); Basophils % (A) 1 %; CH 33.3; CHCM 37.5; Eosinophils # (A) 0.1 k/uL (0-0.7); Eosinophils % (A) 2 %; HCT 41.7 % (34.0-46.0); HDW 2.73; HGB 14.8 gm/dL (11.4-16.0); Luc # (Auto) 0.09; Luc % (Auto) 1; Lymphocytes # (A) 2.3 k/uL (1.0-4.8); Lymphocytes % (A) 33 %; MCH 31.6 pg (25.0-35.0); MCHC 35.5 g/dL (31.0-37.0); MCV 89.1 fL (80.0-100.0); Mean Platelet Volume 7.4; Monocytes # (A) 0.5 k/uL (0-1.0); Monocytes % (A) 7 %; Neutrophils # (A) 3.9 k/uL (1.3-7.7); Neutrophils % (A) 57 %; RBC 4.68 m/uL (3.80-5.40); RDW 13.8 % (11.5-15.5); WBC 6.9 k/uL (3.8-10.6); WBC (Perox) 6.83
[2016-10-31 02:15] LABS: Appearance,Urine Cloudy (Clear); Bacteria,Urine Rare /hpf; Bilirubin,Urine Negative (Negative); Glucose,Urine (UA) Negative (Negative); Ketones,Urine Negative (Negative); Leukocyte Esterase,Urine Negative (Negative); Mucus,Urine Occasional /hpf; Nitrite,Urine Negative (Negative); Particle Count 5195; Protein,Urine Trace (Negative); RBC,Urine <1 /hpf (0-5); Specific Gravity,Urine 1.022 (1.001-1.035); Squamous Epithelial Cell,Urine 17 /hpf (0-4); UA Billing (MACRO vs. MICRO) MICRO; Urobilinogen,Urine <2.0 mg/dL (<2.0); WBC,Urine 1 /hpf (0-5)
[2016-10-31 02:16] LABS: ALT 26 U/L (9-52); AST 15 U/L (14-36); Alkaline Phosphatase 106 U/L (38-126); Amylase 53 U/L (30-110); Anion Gap 16 mmol/L; Blood Urea Nitrogen 13 mg/dL (7-17); Calcium 9.8 mg/dL (8.4-10.2); Carbon Dioxide 21 mmol/L (22-30); Chloride 103 mmol/L (98-107); Glucose 92 mg/dL (74-99); Magnesium 1.7 mg/dL (1.6-2.3); Non-African American GFR(MDRD) >60 (>60 ml/min/1.73 sqM); Potassium 3.3 mmol/L (3.5-5.1); Sodium 140 mmol/L (137-145); Total Bilirubin 0.4 mg/dL (0.2-1.3); Total Protein 6.9 g/dL (6.3-8.2)
[2016-10-31] MEDS ORDERED: METOCLOPRAMIDE 5 MG/ML 2 ML VIAL IVP STA (02:46)
--- NOTE | 2016-10-31 03:04 | US ---
EXAM: US Abdomen Complete CLINICAL HISTORY: Reason: Pain TECHNIQUE: Real-time ultrasound of the abdomen (right) with image documentation. Seen COMPARISON: CT abdomen and pelvis on 07/20/2016. FINDINGS: Liver: Unremarkable. No mass. No intrahepatic bile duct dilation. Gallbladder: Unremarkable. No gallstones. Common bile duct: Common bile duct 0.4 cm diameter. No stones. No dilation. Pancreas: Pancreas obscured by bowel gas. Right kidney: Right kidney 9.5 cm length. No stones. No hydronephrosis. IMPRESSION: No acute findings.
[2016-10-31] MEDS ORDERED: RX INFO: IV CONTRAST WAS GIVEN 1 EACH MISC MISCELLANE PRN (03:17)
--- NOTE | 2016-10-31 05:53 | CT ---
EXAM: CT Abdomen and Pelvis With Intravenous Contrast CLINICAL HISTORY: Reason: Pain TECHNIQUE: Axial computed tomography images of the abdomen and pelvis with intravenous contrast. CTDI is 17.6 mGy and DLP is 608.5 mGy-cm. This CT exam was performed using one or more of the following dose reduction techniques: automated exposure control, adjustment of the mA and/or kV according to patient size, and/or use of iterative reconstruction technique. Coronal and sagittal reconstructions are performed COMPARISON: No relevant prior studies available. FINDINGS: Lower thorax: No acute findings. ABDOMEN: Liver: Unremarkable. No mass. Gallbladder and bile ducts: Unremarkable. No calcified stones. No ductal dilation. Pancreas: Unremarkable. No mass. No ductal dilation. Spleen: Unremarkable. No splenomegaly. Adrenals: Unremarkable. No mass. Kidneys and ureters: Cortical defect of bilateral kidneys suggest prior infarction versus infection. 6 mm cyst in the lower pole of right kidney. No hydronephrosis. Stomach and bowel: Unremarkable. No obstruction. No mucosal thickening. Appendix: Normal appendix. PELVIS: Bladder: Unremarkable. No mass. Reproductive: Unremarkable as visualized. ABDOMEN and PELVIS: Intraperitoneal space: Unremarkable. No free air. No significant fluid collection. Bones/joints: No acute fracture. No dislocation. Soft tissues: Unremarkable. Vasculature: Unremarkable. No abdominal aortic aneurysm. Lymph nodes: Unremarkable. No enlarged lymph nodes. Tubes, lines and devices: Intraspinal stimulator. IMPRESSION: No acute findings.
[2016-10-31] MEDS ORDERED: METHADONE 10 MG TAB PO STA (07:19)
[2016-10-31 08:11] VITALS: BP 161/91; PULSE 94; RESP 18; TEMP 97.4
== END 2016-10-31 08:10 | disposition home or self-care (01) ==
LOC: EC 00:26
DX: R10.11 Right upper quadrant pain (principal); R11.2 Nausea with vomiting, unspecified; K21.9 Gastro-esophageal reflux disease without esophagitis; E78.5 Hyperlipidemia, unspecified; M19.90 Unspecified osteoarthritis, unspecified site; G40.909 Epilepsy, unspecified, not intractable, without status epilepticus; J45.909 Unspecified asthma, uncomplicated; F41.9 Anxiety disorder, unspecified; F31.9 Bipolar disorder, unspecified; F43.10 Post-traumatic stress disorder, unspecified; Z88.1 Allergy status to other antibiotic agents; Z88.2 Allergy status to sulfonamides; Z88.5 Allergy status to narcotic agent; Z88.8 Allergy status to other drugs, medicaments and biological substances; Z91.013 Allergy to seafood; Z79.3 Long term (current) use of hormonal contraceptives; Z79.899 Other long term (current) drug therapy
CPT/HCPCS: 99284; 96374; 96375 ×2; 96376 ×3; 96361 ×4; 36415; 80053; 82150; 83690; 83735; 85025; 81001; 81025; 76705; 74177; J2765; J2405; S0109; J1170; Q9967

== ENCOUNTER 2016-11-21 19:00 | Emergency (ER) | payer MEDICARE, OTHER ==
[2016-11-21 19:11] VITALS: TEMP 98.5
[2016-11-21] MEDS ORDERED: SODIUM CHLORIDE 0.9% 1,000 ML IV STA (19:24)
[2016-11-21] MEDS ORDERED: diphenhydrAMINE 50 MG/ML 1 ML VIAL IVP STA (19:24)
[2016-11-21] MEDS ORDERED: METOCLOPRAMIDE 5 MG/ML 2 ML VIAL IVP STA (19:24)
[2016-11-21] MEDS ORDERED: methylPREDNISolone SOD SUCCI 125 MG/2 ML VIAL IV STA (19:25)
[2016-11-21] MEDS ORDERED: ORPHENADRINE 30 MG/ML 2 ML VIAL IVP STA (19:25)
--- NOTE | 2016-11-21 19:45 | ED ---
Headache HPI - General Chief Complaint: Headache Stated Complaint: headache x 5 days Time Seen by Provider: 11/21/16 19:16 Source: RN notes reviewed, old records reviewed Mode of arrival: ambulatory Limitations: no limitations - History of Present Illness Initial Comments: This is a 31-year-old female presenting to the emergency Department chief complaint of increased headache and occasional blurry vision. Patient is well- known to the emergency department. Patient she's been having a migraine headache for the past 4 days. She sees her neurologist is been increased on her Imitrex and all of her migraine medication. Patient reports that her vision changes started this evening. Patient states that she's had a multiple episodes of vomiting. Patient denies any recent fever, chills, shortness of breath, chest pain, back pain, abdominal pain, numbness or tingling, dysuria or hematuria, constipation or diarrhea, or any other current symptoms. - Related Data Home Medications Medication Instructions Recorded Confirmed Gemfibrozil [Lopid] 600 mg PO BID 11/22/13 10/16/16 Medroxyprogesterone Acetate 150 mg IM Q84D 11/22/13 10/16/16 [Depo-Provera] rOPINIRole HCL [Requip] 1 mg PO HS 11/22/13 10/16/16 Montelukast [Singulair] 10 mg PO HS 10/07/14 10/16/16 Pentosan Polysulfate Sodium 100 mg PO BID 02/10/15 10/16/16 [Elmiron] Pantoprazole Sodium [Protonix] 40 mg PO DAILY 04/20/15 10/16/16 Ondansetron HCl [Zofran] 8 mg PO Q8HR PRN 05/01/15 10/16/16 Beclomethasone Dipropionate [Qvar 2 puff INHALATION RT-BID PRN 06/07/15 10/16/16 80 mcg/puff] Benztropine Mesylate [Cogentin] 1 mg PO BID 08/29/15 10/16/16 Acyclovir [Zovirax] 400 - 800 mg PO DAILY PRN 09/28/15 10/16/16 SUMAtriptan SUCCINATE [Imitrex] 50 mg PO DAILY PRN 09/28/15 10/16/16 carBAMazepine [TEGretol XR] 100 mg PO QAM 12/02/15 10/16/16 Prazosin HCl [Minipress] 2 mg PO HS 01/04/16 10/16/16 carBAMazepine [TEGretol XR] 200 mg PO BID 01/04/16 10/16/16 tiZANidine [Zanaflex] 4 mg PO Q6HR PRN 01/04/16 10/16/16 traZODone HCL [Desyrel] 300 mg PO HS 01/04/16 10/16/16 Tiotropium 18 Mcg/Puff [Spiriva] 1 cap INHALATION RT-DAILY 01/27/16 10/16/16 Albuterol Inhaler [Ventolin Hfa 2 puff INHALATION RT-QID PRN 06/14/16 10/16/16 Inhaler] Gabapentin 600 mg PO BID 06/14/16 10/16/16 HYDROcodone/APAP 7.5-325MG [[place] 1 tab PO Q6HR PRN 07/20/16 10/16/16 7.5-325] Hydrochlorothiazide [Hydrodiuril] 25 mg PO DAILY 07/20/16 10/16/16 Paliperidone Palmitate [Invega 117 mg IM Q28D 07/20/16 10/16/16 Sustenna] carBAMazepine [TEGretol XR] 200 mg PO HS 07/20/16 10/16/16 Previous Rx's Medication Instructions Recorded Sucralfate [Carafate] 1 gm PO QID #24 tablet 09/12/16 Hydrocortisone Suppository 25 mg RECTAL BID PRN #10 supp 09/27/16 [Anusol-Hc] Rhona March [Preparation H 1 applic TOPICAL Q4HR PRN #30 pad 09/27/16 Pad/Wipe] Allergies Allergy/AdvReac Type Severity Reaction Status Date / Time azithromycin Allergy Rash/Hives Verified 11/21/16 19:08 [From Zithromax Z-Mehrdad] cimetidine [From Tagamet] Allergy Unknown Verified 11/21/16 19:08 ether [Ether] Allergy Anaphylaxis Verified 11/21/16 19:08 Fish Containing Products Allergy Anaphylaxis Verified 11/21/16 19:08 [Fish] fluphenazine HCl Allergy Unknown Verified 11/21/16 19:08 [From Prolixin] haloperidol [From Haldol] Allergy Unknown Verified 11/21/16 19:08 ketorolac tromethamine Allergy Rash/Hives Verified 11/21/16 19:08 [From Toradol] ziprasidone HCl [From Geodon] Allergy Unknown Verified 11/21/16 19:08 Sulfa (Sulfonamide AdvReac Nausea & Verified 11/21/16 19:08 Antibiotics) Vomiting Review of Systems ROS Statement: Those systems with pertinent positive or pertinent negative responses have been documented in the HPI. ROS Other: All systems not noted in ROS Statement are negative. Past Medical History Past Medical History: Asthma, GERD/Reflux, Hyperlipidemia, Musculoskeletal Disorder, Neurologic Disorder, Osteoarthritis (OA), Seizure Disorder Additional Past Medical History / Comment(s): RSD-left foot, INTERSTITAIL CYSTITIS, BRONCHITIS, PT "STATED THAT DR THOUGHT SHE MAY HAVE HAD A SMALL CT 5 YEARS AGO".HEMORROIDS,MIGRAINES-GETS INJECTIONS IN NECK FOR THEM, INSOMNIA. Vertigo History of Any Multi-Drug Resistant Organisms: MRSA Date of last positivie culture/infection: 04/20/15 MDRO Source:: Left Axilla Past Surgical History: Adenoidectomy, Back Surgery, Orthopedic Surgery, Tonsillectomy Additional Past Surgical History / Comment(s): bilateral foot surgery d/t rsd, numerous pain clinic procedures, nerve stimulator in back to tx RSD placed 05/23. three new nerve stimulators to back placed in Nov 11 2015, 05-15-16 EGD W/ BX-SMALL SLIDING HIATAL HERNIA/GASTRITIS. Additional Past Anesthesia/Blood Transfusion Reaction / Comment(s): Pt recieved blood when she was 2 yrs old after tonsillectomy. WHEN BABY HEART STOPPED TWICE- PT STATED SHE WAS ALLERGIC TO ETHER. Past Psychological History: Anxiety, Bipolar, Depression, PTSD Smoking Status: Never smoker Past Alcohol Use History: None Reported Past Drug Use History: Marijuana - Past Family History Father History Unknown: Yes Mother Family Medical History: Cancer, CVA/TIA, Myocardial Infarction ([place]) Additional Family Medical History / Comment(s): Mother has had 5 CVAs, 3 MIs and UTERINE CANCER General Exam - General Exam Comments Initial Comments: Is a 31-year-old female, no acute distress. Limitations: no limitations General appearance: alert, in no apparent distress Head exam: Present: atraumatic, normocephalic, normal inspection Eye exam: Present: normal appearance, PERRL, EOMI. Absent: scleral icterus, conjunctival injection, periorbital swelling ENT exam: Present: normal exam, mucous membranes moist Neck exam: Present: normal inspection. Absent: tenderness, meningismus, lymphadenopathy Respiratory exam: Present: normal lung sounds bilaterally. Absent: respiratory distress, wheezes, rales, rhonchi, stridor Cardiovascular Exam: Present: regular rate, normal rhythm, normal heart sounds. Absent: systolic murmur, diastolic murmur, rubs, gallop, clicks GI/Abdominal exam: Present: soft, normal bowel sounds. Absent: distended, tenderness, guarding, rebound, rigid Extremities exam: Present: normal inspection, full ROM, normal capillary refill. Absent: tenderness, pedal edema, joint swelling, calf tenderness Back exam: Present: normal inspection Neurological exam: Present: alert, oriented X3, CN II-XII intact Expanded Patient oriented to: Present: person, place, time Speech: Present: fluid speech Cranial nerves: EOM's Intact: Normal, Gag Reflex: Normal Cerebellar function: Finger to Nose: Normal Upper motor neuron: Pronator Drift: Normal Sensory exam: Upper Extremity Light Touch: Normal, Lower Extremity Light Touch: Normal Motor strength exam: RUE: 5, LUE: 5, RLE: 5, LLE: 5 Eye Response: (4) open spontaneously Motor Response: (6) obeys commands Verbal Response: (5) oriented [place] Total: 15 Psychiatric exam: Present: normal affect, normal mood Skin exam: Present: warm, dry, intact, normal color. Absent: rash Course Vital Signs 11/21/16 19:08 Temperature 98.5 F Pulse Rate 86 Respiratory 16 Rate Blood Pressure 145/103 O2 Sat by Pulse 98 Oximetry Medical Decision Making - Medical Decision Making This is a 31-year-old female presenting to the emergency Department chief complaint of increased headache and occasional blurry vision. Patient is well- known to the emergency department. Patient she's been having a migraine headache for the past 4 days. She sees her neurologist is been increased on her Imitrex and all of her migraine medication. Patient was given IV hydration , Reglan, Benadryl, Norflex, and solumedrol, and pain medication. She has no neurological deficits. Patient's case discussed with Dr. Gonzalez. Patient will be discharged after IV fluids. Disposition Clinical Impression: Migraine Disposition: HOME SELF-CARE Condition: Good Instructions: Migraine Headache (ED) Additional Instructions: Follow-up with her primary care provider. Return to emergency department if any alarming signs or symptoms occur. Referrals: Gustavo Chappell MD [Primary Care Provider] - 1-2 days Time of Disposition: 20:09
[2016-11-21 19:50] VITALS: RESP 16
[2016-11-21] MEDS ORDERED: HYDROmorphone 1 MG/ML 1 ML SYRINGE IVP STA (20:08)
[2016-11-21] MEDS ORDERED: HYDROmorphone 1 MG/ML 1 ML SYRINGE IM STA (21:14)
[2016-11-21 21:30] VITALS: BP 140/82; PULSE 68
== END 2016-11-21 21:31 | disposition home or self-care (01) ==
LOC: EC 19:00
DX: G43.909 Migraine, unspecified, not intractable, without status migrainosus (principal); H53.8 Other visual disturbances; R11.10 Vomiting, unspecified; J45.909 Unspecified asthma, uncomplicated; K21.9 Gastro-esophageal reflux disease without esophagitis; E78.5 Hyperlipidemia, unspecified; M19.90 Unspecified osteoarthritis, unspecified site; G40.909 Epilepsy, unspecified, not intractable, without status epilepticus; F31.9 Bipolar disorder, unspecified; F41.9 Anxiety disorder, unspecified; Z79.51 Long term (current) use of inhaled steroids; Z79.899 Other long term (current) drug therapy; Z91.013 Allergy to seafood; Z88.1 Allergy status to other antibiotic agents; Z88.2 Allergy status to sulfonamides; Z88.6 Allergy status to analgesic agent; Z88.8 Allergy status to other drugs, medicaments and biological substances
CPT/HCPCS: 99284; 96374; 96375 ×4; 96361 ×2; 96372; J1200; J2360; J2765; J2930; J1170

== ENCOUNTER 2016-11-24 20:32 | Emergency (ER) | payer MEDICARE, OTHER ==
[2016-11-24 20:41] VITALS: RESP 18
[2016-11-24] MEDS ORDERED: diphenhydrAMINE 50 MG/ML 1 ML VIAL IVP STA (21:16)
[2016-11-24] MEDS ORDERED: KETOROLAC 30 MG/ML 1 ML VIAL IVP STA (21:16)
[2016-11-24] MEDS ORDERED: PROMETHAZINE INJ 25 MG in SODIUM CHLORIDE 0.9% 50 ML IVPB STA (21:16)
[2016-11-24] MEDS ORDERED: SODIUM CHLORIDE 0.9% 1,000 ML IV ONE (21:16)
[2016-11-24] MEDS ORDERED: DIAZEPAM 5 MG/ML 2 ML SYRINGE IVP STA (21:17)
--- NOTE | 2016-11-24 22:45 | ED ---
Headache HPI - General Chief Complaint: Headache Stated Complaint: headache/blurry vision Time Seen by Provider: 11/24/16 21:08 Source: patient, RN notes reviewed Mode of arrival: ambulatory Limitations: no limitations - History of Present Illness Initial Comments: This a 31-year-old female presents emergency Department chief complaint migraine headache. Patient has chronic pain and migraine headaches. Patient states she seen in emergency department the days ago for headache. She did follow up with a neurologist the following day who told her to continue her Imitrex. Patient was also given IM Toradol by Dr. Shannon. Patient has had several nerve blocks in the past for her headaches. Patient denies any dizziness or blurred vision at this time but she states that she did have some the other day. Patient denies any focal weakness. And vomiting but states she' s been nauseated no diarrhea no constipation. Denies any chest pain or shortness breath denies any neck stiffness. - Related Data Home Medications Medication Instructions Recorded Confirmed Gemfibrozil [Lopid] 600 mg PO BID 11/22/13 11/24/16 Medroxyprogesterone Acetate 150 mg IM Q90D 11/22/13 11/24/16 [Depo-Provera] rOPINIRole HCL [Requip] 1 mg PO HS 11/22/13 11/24/16 Montelukast [Singulair] 10 mg PO HS 10/07/14 11/24/16 Pentosan Polysulfate Sodium 100 mg PO BID 02/10/15 11/24/16 [Elmiron] Pantoprazole Sodium [Protonix] 40 mg PO QAM 04/20/15 11/24/16 Beclomethasone Dipropionate [Qvar 2 puff INHALATION RT-BID PRN 06/07/15 11/24/16 80 mcg/puff] SUMAtriptan SUCCINATE [Imitrex] 50 mg PO BID PRN 09/28/15 11/24/16 Prazosin HCl [Minipress] 2 mg PO HS 01/04/16 11/24/16 traZODone HCL [Desyrel] 300 mg PO HS 01/04/16 11/24/16 Tiotropium 18 Mcg/Puff [Spiriva] 1 cap INHALATION RT-DAILY 01/27/16 11/24/16 Albuterol Inhaler [Ventolin Hfa 2 puff INHALATION RT-QID PRN 06/14/16 11/24/16 Inhaler] Gabapentin 600 mg PO BID 06/14/16 11/24/16 HYDROcodone/APAP 7.5-325MG [[place] 1 tab PO TID PRN 07/20/16 11/24/16 7.5-325] Hydrochlorothiazide [Hydrodiuril] 25 mg PO DAILY 07/20/16 11/24/16 Paliperidone Palmitate [Invega 117 mg IM Q28D 07/20/16 11/24/16 Sustenna] carBAMazepine [TEGretol XR] 300 mg PO QAM 07/20/16 11/24/16 Amantadine HCl [Symmetrel] 100 mg PO QAM 11/21/16 11/24/16 Ibuprofen [Motrin] 800 mg PO TID PRN 11/21/16 11/24/16 Metoclopramide [Reglan] 5 mg PO ACHS 11/21/16 11/24/16 Ondansetron [Zofran ODT] 8 mg PO Q8HR PRN 11/21/16 11/24/16 carBAMazepine [TEGretol XR] 400 mg PO HS 11/21/16 11/24/16 Allergies Allergy/AdvReac Type Severity Reaction Status Date / Time azithromycin Allergy Rash/Hives Verified 11/24/16 20:41 [From Zithromax Z-Mehrdad] cimetidine [From Tagamet] Allergy Unknown Verified 11/24/16 20:41 ether [Ether] Allergy Anaphylaxis Verified 11/24/16 20:41 Fish Containing Products Allergy Anaphylaxis Verified 11/24/16 20:41 [Fish] fluphenazine HCl Allergy Unknown Verified 11/24/16 20:41 [From Prolixin] haloperidol [From Haldol] Allergy Unknown Verified 11/24/16 20:41 ketorolac tromethamine Allergy Rash/Hives Verified 11/24/16 20:41 [From Toradol] ziprasidone HCl [From Geodon] Allergy Unknown Verified 11/24/16 20:41 Sulfa (Sulfonamide AdvReac Nausea & Verified 11/24/16 20:41 Antibiotics) Vomiting Review of Systems ROS Statement: Those systems with pertinent positive or pertinent negative responses have been documented in the HPI. ROS Other: All systems not noted in ROS Statement are negative. Past Medical History Past Medical History: Asthma, GERD/Reflux, Hyperlipidemia, Musculoskeletal Disorder, Neurologic Disorder, Osteoarthritis (OA), Seizure Disorder Additional Past Medical History / Comment(s): RSD-left foot, INTERSTITAIL CYSTITIS, BRONCHITIS, PT "STATED THAT DR THOUGHT SHE MAY HAVE HAD A SMALL AK 5 YEARS AGO".HEMORROIDS,MIGRAINES-GETS INJECTIONS IN NECK FOR THEM, INSOMNIA. Vertigo History of Any Multi-Drug Resistant Organisms: MRSA Date of last positivie culture/infection: 04/20/15 MDRO Source:: Left Axilla Past Surgical History: Adenoidectomy, Back Surgery, Orthopedic Surgery, Tonsillectomy Additional Past Surgical History / Comment(s): bilateral foot surgery d/t rsd, numerous pain clinic procedures, nerve stimulator in back to tx RSD placed 05/23. three new nerve stimulators to back placed in Nov 11 2015, 05-15-16 EGD W/ BX-SMALL SLIDING HIATAL HERNIA/GASTRITIS. Additional Past Anesthesia/Blood Transfusion Reaction / Comment(s): Pt recieved blood when she was 2 yrs old after tonsillectomy. WHEN BABY HEART STOPPED TWICE- PT STATED SHE WAS ALLERGIC TO ETHER. Past Psychological History: Anxiety, Bipolar, Depression, PTSD Smoking Status: Never smoker Past Alcohol Use History: None Reported Past Drug Use History: Marijuana - Past Family History Father History Unknown: Yes Mother Family Medical History: Cancer, CVA/TIA, Myocardial Infarction ([place]) Additional Family Medical History / Comment(s): Mother has had 5 CVAs, 3 MIs and UTERINE CANCER General Exam Limitations: no limitations General appearance: alert, in no apparent distress Head exam: Present: atraumatic, normocephalic, normal inspection Eye exam: Present: normal appearance, PERRL, EOMI. Absent: scleral icterus, conjunctival injection, periorbital swelling ENT exam: Present: normal exam, normal oropharynx, mucous membranes moist Neck exam: Present: normal inspection. Absent: tenderness, meningismus, lymphadenopathy Respiratory exam: Present: normal lung sounds bilaterally. Absent: respiratory distress, wheezes, rales, rhonchi, stridor Cardiovascular Exam: Present: regular rate, normal rhythm, normal heart sounds. Absent: systolic murmur, diastolic murmur, rubs, gallop, clicks GI/Abdominal exam: Present: soft, normal bowel sounds. Absent: distended, tenderness, guarding, rebound, rigid Extremities exam: Present: normal inspection, full ROM, normal capillary refill. Absent: tenderness, pedal edema, joint swelling, calf tenderness Neurological exam: Present: alert, oriented X3, CN II-XII intact, reflexes normal. Absent: motor sensory deficit Skin exam: Present: warm, dry, intact, normal color. Absent: rash Course Vital Signs 11/24/16 20:40 Temperature 98.5 F Pulse Rate 88 Respiratory 18 Rate Blood Pressure 141/85 O2 Sat by Pulse 98 Oximetry Medical Decision Making - Medical Decision Making 31-year-old female presents emergency Department for headache. Patient was seen by neurologist on Saturday. Patient states her headache is improved at this time though she questioned further pain medication. She has no red flag symptoms no neurological deficits. Patient refuses CT at this time. Patient will be discharged with follow-up with Dr. Shannon. Disposition Clinical Impression: Migraine Disposition: HOME SELF-CARE Condition: Stable Instructions: Acute Headache (ED) Additional Instructions: Please return to the Emergency Department if symptoms worsen or any other concerns. Referrals: Gustavo Chappell MD [Primary Care Provider] - 1-2 days Time of Disposition: 22:55
[2016-11-24] MEDS ORDERED: HYDROmorphone 1 MG/ML 1 ML SYRINGE IVP STA (22:54)
[2016-11-24 23:07] VITALS: BP 132/69; PULSE 92; TEMP 98.6
== END 2016-11-24 23:10 | disposition home or self-care (01) ==
LOC: EC 20:32
DX: G43.909 Migraine, unspecified, not intractable, without status migrainosus (principal); K21.9 Gastro-esophageal reflux disease without esophagitis; E78.5 Hyperlipidemia, unspecified; J45.909 Unspecified asthma, uncomplicated; G40.909 Epilepsy, unspecified, not intractable, without status epilepticus; F41.9 Anxiety disorder, unspecified; F31.9 Bipolar disorder, unspecified; F43.10 Post-traumatic stress disorder, unspecified; Z86.14 Personal history of Methicillin resistant Staphylococcus aureus infection; Z79.899 Other long term (current) drug therapy; Z88.1 Allergy status to other antibiotic agents; Z91.013 Allergy to seafood; Z88.8 Allergy status to other drugs, medicaments and biological substances; Z88.6 Allergy status to analgesic agent; Z88.2 Allergy status to sulfonamides
CPT/HCPCS: 99283; 96365; 96375 ×4; 96361; J1200; J2550; J3360; J1885; J1170

== ENCOUNTER → 2016-11-26 | Outpatient (CLI) | payer MEDICARE, OTHER ==
--- NOTE | 2016-11-26 09:17 | NM ---
EXAMINATION TYPE: NM hepatobiliary w EF DATE OF EXAM: 11/26/2016 COMPARISON: Abdominal ultrasound and CT abdomen pelvis both dated 10/31/2016 HISTORY: Generalized abdominal pain and tenderness TECHNIQUE: After the intravenous administration of 4.95 mCi Tc 99m Mebrofenin hepatobiliary scintigra phy is performed. Immediate images post injection. FINDINGS: There is satisfactory initial accumulation of tracer by the liver. The gallbladder is visualized wit hin 6 minutes area The small bowel activity is noted within 14 minutes. At one hour 8 ounces of oral ensure plus is given to mimic CCK and gallbladder ejection fraction is calculated at 31 %, decreased and abnormal. Therefore there is no scintigraphic evidence of cystic or common bile duct obstructio n to suggest acute cholecystitis. IMPRESSION: 1. No evidence of acute cholecystitis. 2. Biliary dyskinesia with ejection fraction of 31%.
== END | disposition home or self-care (01) ==
LOC: RADNMMAIN 07:05
DX: K82.8 Other specified diseases of gallbladder (principal); R10.13 Epigastric pain
CPT/HCPCS: 78226; A9537

== ENCOUNTER 2016-11-30 18:30 | Emergency (ER) | payer MEDICARE, OTHER ==
[2016-11-30 19:10] VITALS: RESP 20
[2016-11-30] MEDS ORDERED: KETOROLAC 60 MG/2 ML VIAL IM STA (19:31)
[2016-11-30] MEDS ORDERED: ONDANSETRON ODT 4 MG TAB PO STA (19:31)
[2016-11-30] MEDS ORDERED: DEXAMETHASONE SOD PHOSPHATE 10 MG/ML 1 ML VIAL IM STA (19:31)
[2016-11-30] MEDS ORDERED: LORazepam 2 MG/ML SYRINGE IM STA (19:36)
--- NOTE | 2016-11-30 19:37 | ED ---
General Adult HPI - General Chief complaint: Headache Stated complaint: headache x 2 weeks Time Seen by Provider: 11/30/16 19:23 Source: patient, RN notes reviewed Mode of arrival: ambulatory Limitations: no limitations - History of Present Illness Initial comments: Patient's 31-year-old female significant past medical history for migraines, who presents emergency room today with chief complaint of a migraine headache. Patient does admit that she has been expressing since headache over the last weeks has been seen a neurologist. He states that she went to the office today but they were closed. She states she was unable to get her portal shot. She states she has been getting these every week. She states it's appearance and increased headache today. Does admit that she's had some nausea no vomiting. Patient denies any other complaints or symptoms. Denies any new symptoms today. Patient denies any recent fever, chills, shortness of breath, chest pain , back pain, abdominal pain, nausea or vomiting, numbness or tingling, dysuria or hematuria, constipation or diarrhea, visual changes, or any other complaints. - Related Data Home Medications Medication Instructions Recorded Confirmed Gemfibrozil [Lopid] 600 mg PO BID 11/22/13 11/24/16 Medroxyprogesterone Acetate 150 mg IM Q90D 11/22/13 11/24/16 [Depo-Provera] rOPINIRole HCL [Requip] 1 mg PO HS 11/22/13 11/24/16 Montelukast [Singulair] 10 mg PO HS 10/07/14 11/24/16 Pentosan Polysulfate Sodium 100 mg PO BID 02/10/15 11/24/16 [Elmiron] Pantoprazole Sodium [Protonix] 40 mg PO QAM 04/20/15 11/24/16 Beclomethasone Dipropionate [Qvar 2 puff INHALATION RT-BID PRN 06/07/15 11/24/16 80 mcg/puff] SUMAtriptan SUCCINATE [Imitrex] 50 mg PO BID PRN 09/28/15 11/24/16 Prazosin HCl [Minipress] 2 mg PO HS 01/04/16 11/24/16 traZODone HCL [Desyrel] 300 mg PO HS 01/04/16 11/24/16 Tiotropium 18 Mcg/Puff [Spiriva] 1 cap INHALATION RT-DAILY 01/27/16 11/24/16 Albuterol Inhaler [Ventolin Hfa 2 puff INHALATION RT-QID PRN 06/14/16 11/24/16 Inhaler] Gabapentin 600 mg PO BID 06/14/16 11/24/16 HYDROcodone/APAP 7.5-325MG [[place] 1 tab PO TID PRN 07/20/16 11/24/16 7.5-325] Hydrochlorothiazide [Hydrodiuril] 25 mg PO DAILY 07/20/16 11/24/16 Paliperidone Palmitate [Invega 117 mg IM Q28D 07/20/16 11/24/16 Sustenna] carBAMazepine [TEGretol XR] 300 mg PO QAM 07/20/16 11/24/16 Amantadine HCl [Symmetrel] 100 mg PO QAM 11/21/16 11/24/16 Ibuprofen [Motrin] 800 mg PO TID PRN 11/21/16 11/24/16 Metoclopramide [Reglan] 5 mg PO ACHS 11/21/16 11/24/16 Ondansetron [Zofran ODT] 8 mg PO Q8HR PRN 11/21/16 11/24/16 carBAMazepine [TEGretol XR] 400 mg PO HS 11/21/16 11/24/16 Allergies Allergy/AdvReac Type Severity Reaction Status Date / Time azithromycin Allergy Rash/Hives Verified 11/24/16 20:41 [From Zithromax Z-Mehrdad] cimetidine [From Tagamet] Allergy Unknown Verified 11/24/16 20:41 ether [Ether] Allergy Anaphylaxis Verified 11/24/16 20:41 Fish Containing Products Allergy Anaphylaxis Verified 11/24/16 20:41 [Fish] fluphenazine HCl Allergy Unknown Verified 11/24/16 20:41 [From Prolixin] haloperidol [From Haldol] Allergy Unknown Verified 11/24/16 20:41 ketorolac tromethamine Allergy Rash/Hives Verified 11/24/16 20:41 [From Toradol] ziprasidone HCl [From Geodon] Allergy Unknown Verified 11/24/16 20:41 Sulfa (Sulfonamide AdvReac Nausea & Verified 11/24/16 20:41 Antibiotics) Vomiting Review of Systems ROS Statement: Those systems with pertinent positive or pertinent negative responses have been documented in the HPI. ROS Other: All systems not noted in ROS Statement are negative. Past Medical History Past Medical History: Asthma, GERD/Reflux, Hyperlipidemia, Musculoskeletal Disorder, Neurologic Disorder, Osteoarthritis (OA), Seizure Disorder Additional Past Medical History / Comment(s): RSD-left foot, INTERSTITAIL CYSTITIS, BRONCHITIS, HEMORROIDS,MIGRAINES-GETS INJECTIONS IN NECK FOR THEM, INSOMNIA. Vertigo History of Any Multi-Drug Resistant Organisms: MRSA Date of last positivie culture/infection: 04/20/15 MDRO Source:: Left Axilla Past Surgical History: Adenoidectomy, Back Surgery, Orthopedic Surgery, Tonsillectomy Additional Past Surgical History / Comment(s): bilateral foot surgery d/t rsd, numerous pain clinic procedures, nerve stimulator in back to tx RSD placed 05/23. three new nerve stimulators to back placed in Nov 11 2015, 05-15-16 EGD W/ BX-SMALL SLIDING HIATAL HERNIA/GASTRITIS. Additional Past Anesthesia/Blood Transfusion Reaction / Comment(s): Pt recieved blood when she was 2 yrs old after tonsillectomy. WHEN BABY HEART STOPPED TWICE- PT STATED SHE WAS ALLERGIC TO ETHER. Past Psychological History: Anxiety, Bipolar, Depression, PTSD Smoking Status: Never smoker Past Alcohol Use History: None Reported Past Drug Use History: Marijuana - Past Family History Father History Unknown: Yes Mother Family Medical History: Cancer, CVA/TIA, Myocardial Infarction ([place]) Additional Family Medical History / Comment(s): Mother has had 5 CVAs, 3 MIs and UTERINE CANCER General Exam - General Exam Comments Initial Comments: General: The patient is awake and alert, in no distress, and does not appear acutely ill. Eye: Pupils are equal, round and reactive to light, extra-ocular movements are intact. No nystagmus. There is normal conjunctiva bilaterally. No signs of icterus. Ears, nose, mouth and throat: There are moist mucous membranes and no oral lesions. Neck: The neck is supple, there is no tenderness or JVD. Cardiovascular: There is a regular rate and rhythm. No murmur, rub or gallop is appreciated. Respiratory: Lungs are clear to auscultation, respirations are non-labored, breath sounds are equal. No wheezes, stridor, rales, or rhonchi. Musculoskeletal: Normal ROM, no tenderness. Strength 5/5. Sensation intact. Pulses equal bilaterally 2+. Neurological: A&O x 3. CN II-XII intact, There are no obvious motor or sensory deficits. Coordination appears grossly intact. Speech is normal. Skin: Skin is warm and dry and no rashes or lesions are noted. Psychiatric: Cooperative, appropriate mood & affect, normal judgment. Limitations: no limitations Course Vital Signs 11/30/16 19:07 Temperature 98.4 F Pulse Rate 102 H Respiratory 20 Rate Blood Pressure 137/78 O2 Sat by Pulse 98 Oximetry Medical Decision Making - Medical Decision Making Patient given dose of Toradol, dexamethasone emergency room along with Danelle GRANADOS. She does admit that she has Reglan at home that she has been taking. Patient is not to follow-up with her neurologist. Advised return for any other concerns. Disposition Clinical Impression: Migraine Disposition: HOME SELF-CARE Condition: Stable Instructions: Migraine Headache (ED) Additional Instructions: Please use medication as discussed. Please follow-up with neurologist/family doctor in the next 2 days of symptoms have not improved. Please return to emergency room if the symptoms increase or worsen or for any other concerns. Referrals: Gustavo Chappell MD [Primary Care Provider] - 1-2 days Time of Disposition: 19:35
[2016-11-30 20:14] VITALS: BP 118/80; PULSE 100; TEMP 98.7
== END 2016-11-30 20:07 | disposition home or self-care (01) ==
LOC: EC 18:30
DX: G43.909 Migraine, unspecified, not intractable, without status migrainosus (principal); J45.909 Unspecified asthma, uncomplicated; K21.9 Gastro-esophageal reflux disease without esophagitis; E78.5 Hyperlipidemia, unspecified; M19.90 Unspecified osteoarthritis, unspecified site; G40.909 Epilepsy, unspecified, not intractable, without status epilepticus; F31.9 Bipolar disorder, unspecified; F41.9 Anxiety disorder, unspecified; F43.10 Post-traumatic stress disorder, unspecified; Z79.51 Long term (current) use of inhaled steroids; Z79.899 Other long term (current) drug therapy; Z88.1 Allergy status to other antibiotic agents; Z91.013 Allergy to seafood; Z88.2 Allergy status to sulfonamides; Z88.6 Allergy status to analgesic agent; Z88.8 Allergy status to other drugs, medicaments and biological substances
CPT/HCPCS: 99283; 96372 ×3; J2060; J1100; J1885

== ENCOUNTER 2016-12-08 20:33 | Emergency (ER) | payer MEDICARE, OTHER ==
[2016-12-08] MEDS ORDERED: HYDROmorphone 1 MG/ML 1 ML SYRINGE IM STA ×2 (20:56→21:46)
[2016-12-08] MEDS ORDERED: ONDANSETRON ODT 4 MG TAB PO STA (20:57)
[2016-12-08 22:53] VITALS: BP 132/80; PULSE 100; RESP 18; TEMP 98
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
== END 2016-12-08 23:11 | disposition home or self-care (01) ==
LOC: EC 20:33
DX: G43.909 Migraine, unspecified, not intractable, without status migrainosus (principal); J45.909 Unspecified asthma, uncomplicated; E78.5 Hyperlipidemia, unspecified; K21.9 Gastro-esophageal reflux disease without esophagitis; F31.9 Bipolar disorder, unspecified; G40.909 Epilepsy, unspecified, not intractable, without status epilepticus; Z88.1 Allergy status to other antibiotic agents; Z88.6 Allergy status to analgesic agent; Z88.2 Allergy status to sulfonamides; Z88.8 Allergy status to other drugs, medicaments and biological substances; Z91.09 Other allergy status, other than to drugs and biological substances; Z91.013 Allergy to seafood; Z79.899 Other long term (current) drug therapy
CPT/HCPCS: 99284; 96372 ×2; J1170

== ENCOUNTER 2016-12-09 19:35 | Emergency (ER) | payer MEDICARE, OTHER ==
[2016-12-09 20:01] VITALS: RESP 16; TEMP 97.3
[2016-12-09] MEDS ORDERED: SODIUM CHLORIDE 0.9% 1,000 ML IV ONE (20:21)
[2016-12-09] MEDS ORDERED: diphenhydrAMINE 50 MG/ML 1 ML VIAL IVP STA (20:21)
[2016-12-09] MEDS ORDERED: KETOROLAC 30 MG/ML 1 ML VIAL IVP STA (20:22)
[2016-12-09] MEDS ORDERED: METOCLOPRAMIDE 5 MG/ML 2 ML VIAL IVP STA (20:22)
[2016-12-09] MEDS ORDERED: DEXAMETHASONE SOD PHOSPHATE 4 MG/ML 1 ML VIAL IV STA (20:23)
[2016-12-09] MEDS ORDERED: LORazepam 2 MG/ML SYRINGE IV STA (20:42)
--- NOTE | 2016-12-09 21:36 | ED ---
Headache HPI - General Chief Complaint: Headache Stated Complaint: Headache Time Seen by Provider: 12/09/16 20:16 Source: patient, RN notes reviewed Mode of arrival: ambulatory Limitations: no limitations - History of Present Illness Initial Comments: 31-year-old female presents emergency Department chief complaint of headache. Patient has recurrent chronic headaches. Patient is scheduled see Dr. Shannon on Saturday to see if there is anything else they can do for her. Patient states that she's had some nausea and vomiting today. Patient denies any fever , chills, neck stiffness. Patient has had multiple blocks done, injections, pain pumps in the past. Patient states that they keep telling her go back to the ER if she is unable tolerate any more. - Related Data Home Medications Medication Instructions Recorded Confirmed Gemfibrozil [Lopid] 600 mg PO AC-BID 11/22/13 12/09/16 Medroxyprogesterone Acetate 150 mg IM Q90D 11/22/13 12/09/16 [Depo-Provera] rOPINIRole HCL [Requip] 1 mg PO HS 11/22/13 12/09/16 Montelukast [Singulair] 10 mg PO HS 10/07/14 12/09/16 Pentosan Polysulfate Sodium 100 mg PO BID 02/10/15 12/09/16 [Elmiron] Pantoprazole Sodium [Protonix] 40 mg PO QAM 04/20/15 12/09/16 Beclomethasone Dipropionate [Qvar 2 puff INHALATION RT-BID PRN 06/07/15 12/09/16 80 mcg/puff] SUMAtriptan SUCCINATE [Imitrex] 50 mg PO BID PRN 09/28/15 12/09/16 Prazosin HCl [Minipress] 2 mg PO HS 01/04/16 12/09/16 traZODone HCL [Desyrel] 300 mg PO HS 01/04/16 12/09/16 Tiotropium 18 Mcg/Puff [Spiriva] 1 cap INHALATION RT-DAILY 01/27/16 12/09/16 Gabapentin 600 mg PO BID 06/14/16 12/09/16 HYDROcodone/APAP 7.5-325MG [[place] 1 tab PO TID PRN 07/20/16 12/09/16 7.5-325] Hydrochlorothiazide [Hydrodiuril] 25 mg PO DAILY 07/20/16 12/09/16 Paliperidone Palmitate [Invega 117 mg IM Q28D 07/20/16 12/09/16 Sustenna] carBAMazepine [TEGretol XR] 100 mg PO QAM 07/20/16 12/09/16 Amantadine HCl [Symmetrel] 100 mg PO QAM 11/21/16 12/09/16 Metoclopramide [Reglan] 5 mg PO ACHS 11/21/16 12/09/16 Ondansetron [Zofran ODT] 8 mg PO Q8HR PRN 11/21/16 12/09/16 Acyclovir 400 mg PO DAILY PRN 11/30/16 12/09/16 Acyclovir [Zovirax] 800 mg PO DAILY PRN 11/30/16 12/09/16 carBAMazepine [TEGretol XR] 200 mg PO BID 11/30/16 12/09/16 carBAMazepine [TEGretol XR] 200 mg PO HS 11/30/16 12/09/16 tiZANidine [Zanaflex] 4 mg PO Q6HR PRN 11/30/16 12/09/16 Allergies Allergy/AdvReac Type Severity Reaction Status Date / Time azithromycin Allergy Rash/Hives Verified 12/09/16 19:58 [From Zithromax Z-Mehrdad] cimetidine [From Tagamet] Allergy Unknown Verified 12/09/16 19:58 ether [Ether] Allergy Anaphylaxis Verified 12/09/16 19:58 Fish Containing Products Allergy Anaphylaxis Verified 12/09/16 19:58 [Fish] fluphenazine HCl Allergy Unknown Verified 12/09/16 19:58 [From Prolixin] haloperidol [From Haldol] Allergy Unknown Verified 12/09/16 19:58 ketorolac tromethamine Allergy Rash/Hives Verified 12/09/16 19:58 [From Toradol] ziprasidone HCl [From Geodon] Allergy Unknown Verified 12/09/16 19:58 Sulfa (Sulfonamide AdvReac Nausea & Verified 12/09/16 19:58 Antibiotics) Vomiting Review of Systems ROS Statement: Those systems with pertinent positive or pertinent negative responses have been documented in the HPI. ROS Other: All systems not noted in ROS Statement are negative. Past Medical History Past Medical History: Asthma, GERD/Reflux, Hyperlipidemia, Musculoskeletal Disorder, Neurologic Disorder, Osteoarthritis (OA), Seizure Disorder Additional Past Medical History / Comment(s): RSD-left foot, INTERSTITAIL CYSTITIS, BRONCHITIS, HEMORROIDS,MIGRAINES-GETS INJECTIONS IN NECK FOR THEM, INSOMNIA. Vertigo History of Any Multi-Drug Resistant Organisms: MRSA Date of last positivie culture/infection: 04/20/15 MDRO Source:: Left Axilla Past Surgical History: Adenoidectomy, Back Surgery, Orthopedic Surgery, Tonsillectomy Additional Past Surgical History / Comment(s): bilateral foot surgery d/t rsd, numerous pain clinic procedures, nerve stimulator in back to tx RSD placed 05/23. three new nerve stimulators to back placed in Nov 11 2015, 05-15-16 EGD W/ BX-SMALL SLIDING HIATAL HERNIA/GASTRITIS. Additional Past Anesthesia/Blood Transfusion Reaction / Comment(s): Pt recieved blood when she was 2 yrs old after tonsillectomy. WHEN BABY HEART STOPPED TWICE- PT STATED SHE WAS ALLERGIC TO ETHER. Past Psychological History: Anxiety, Bipolar, Depression, PTSD Smoking Status: Never smoker Past Alcohol Use History: None Reported Past Drug Use History: Marijuana - Past Family History Father History Unknown: Yes Mother Family Medical History: Cancer, CVA/TIA, Myocardial Infarction ([place]) Additional Family Medical History / Comment(s): Mother has had 5 CVAs, 3 MIs and UTERINE CANCER General Exam Limitations: no limitations General appearance: alert, in no apparent distress Head exam: Present: atraumatic, normocephalic, normal inspection Eye exam: Present: normal appearance, PERRL, EOMI. Absent: scleral icterus, conjunctival injection, periorbital swelling ENT exam: Present: normal exam, normal oropharynx, mucous membranes moist, TM's normal bilaterally Neck exam: Present: normal inspection, full ROM. Absent: tenderness, meningismus, lymphadenopathy Respiratory exam: Present: normal lung sounds bilaterally. Absent: respiratory distress, wheezes, rales, rhonchi, stridor Cardiovascular Exam: Present: regular rate, normal rhythm, normal heart sounds. Absent: systolic murmur, diastolic murmur, rubs, gallop, clicks Extremities exam: Present: normal inspection, full ROM, normal capillary refill. Absent: tenderness, pedal edema, joint swelling, calf tenderness Neurological exam: Present: alert, oriented X3, CN II-XII intact, reflexes normal. Absent: motor sensory deficit Course Vital Signs 12/09/16 19:59 Temperature 97.3 F L Pulse Rate 82 Respiratory 16 Rate Blood Pressure 138/92 O2 Sat by Pulse 95 Oximetry Medical Decision Making - Medical Decision Making 31-year-old female presented for chronic headache. Patient states that she feels much improved after medications at this time. Patient has no red flecks symptoms, neurological deficits. Patient will be discharged she has an appointment in 2 days. Disposition Clinical Impression: Headache, Chronic pain Disposition: HOME SELF-CARE Condition: Stable Instructions: Acute Headache (ED) Additional Instructions: Please return to the Emergency Department if symptoms worsen or any other concerns. Referrals: Gustavo Chappell MD [Primary Care Provider] - 1-2 days Time of Disposition: 21:35
[2016-12-09 21:43] VITALS: BP 126/79; PULSE 87
== END 2016-12-09 21:45 | disposition home or self-care (01) ==
LOC: EC 19:35
DX: R51 Headache (principal); G89.29 Other chronic pain; R11.10 Vomiting, unspecified; J45.909 Unspecified asthma, uncomplicated; E78.5 Hyperlipidemia, unspecified; G40.909 Epilepsy, unspecified, not intractable, without status epilepticus; F41.9 Anxiety disorder, unspecified; F32.9 Major depressive disorder, single episode, unspecified; F43.10 Post-traumatic stress disorder, unspecified; Z86.69 Personal history of other diseases of the nervous system and sense organs; Z86.14 Personal history of Methicillin resistant Staphylococcus aureus infection; Z98.890 Other specified postprocedural states; Z79.3 Long term (current) use of hormonal contraceptives; Z79.899 Other long term (current) drug therapy; Z88.1 Allergy status to other antibiotic agents; Z88.2 Allergy status to sulfonamides; Z88.6 Allergy status to analgesic agent; Z88.8 Allergy status to other drugs, medicaments and biological substances; Z91.013 Allergy to seafood
CPT/HCPCS: 99283; 96374; 96375 ×4; 96361; J2060; J1200; J1100; J2765; J1885

== ENCOUNTER 2016-12-12 16:59 | Emergency (ER) | payer MEDICARE, OTHER ==
[2016-12-12] MEDS ORDERED: ONDANSETRON 4 MG/2 ML VIAL IVP STA (17:14)
[2016-12-12] MEDS ORDERED: HYDROmorphone 1 MG/ML 1 ML SYRINGE IVP STA ×2 (17:14→19:12)
[2016-12-12] MEDS ORDERED: SODIUM CHLORIDE 0.9% 1,000 ML IV STA ×2 (17:14)
--- NOTE | 2016-12-12 17:14 | ED ---
Abdominal Pain HPI - General Stated Complaint: Abd Pain Time Seen by Provider: 12/12/16 17:02 Source: RN notes reviewed, old records reviewed - History of Present Illness Initial Comments: His is a 31-year-old female well-known to the emergency Department chief complaint of right upper quadrant abdominal pain. Patient reports that she has been having off and off pain for the past few weeks. She had a HIDA scan completed 2 weeks ago. She reports that she was at Dr. Prabhakar's office to find the results of her HIDA scan. Patient reports that at that time she was expressing severe pain, and they told her that her gallbladder is nonfunctioning. At that time Dr. Prabhakar decided to call the EMSs patient was laying on the floor in her bathroom and vomiting. Patient reports no recent fever or chills. She does visit the emergency department frequently for headaches. She reports she followed up with Dr. Agee and was started on amitriptyline, and Maxalt and her headache is now subsided. Patient states that she wishes that she did not have to come here today. Denies any diarrhea or blood in her stools. Denies any urinary symptoms. She states that she's had multiple episodes of vomiting, but denies any hematochezia. Patient reports that she was told that she needs to have her about gallbladder removed. - Related Data Home Medications Medication Instructions Recorded Confirmed Gemfibrozil [Lopid] 600 mg PO AC-BID 11/22/13 12/12/16 Medroxyprogesterone Acetate 150 mg IM Q90D 11/22/13 12/12/16 [Depo-Provera] rOPINIRole HCL [Requip] 1 mg PO HS 11/22/13 12/12/16 Montelukast [Singulair] 10 mg PO HS 10/07/14 12/12/16 Pentosan Polysulfate Sodium 100 mg PO BID 02/10/15 12/12/16 [Elmiron] Pantoprazole Sodium [Protonix] 40 mg PO QAM 04/20/15 12/12/16 Beclomethasone Dipropionate [Qvar 2 puff INHALATION RT-BID PRN 06/07/15 12/12/16 80 mcg/puff] Prazosin HCl [Minipress] 2 mg PO HS 01/04/16 12/12/16 traZODone HCL [Desyrel] 300 mg PO HS 01/04/16 12/12/16 Gabapentin 600 mg PO BID 06/14/16 12/12/16 HYDROcodone/APAP 7.5-325MG [[place] 1 tab PO TID PRN 07/20/16 12/12/16 7.5-325] Hydrochlorothiazide [Hydrodiuril] 25 mg PO QAM 07/20/16 12/12/16 Paliperidone Palmitate [Invega 117 mg IM Q28D 07/20/16 12/12/16 Sustenna] carBAMazepine [TEGretol XR] 100 mg PO QAM 07/20/16 12/12/16 Amantadine HCl [Symmetrel] 100 mg PO QAM 11/21/16 12/12/16 Metoclopramide [Reglan] 5 mg PO ACHS 11/21/16 12/12/16 Ondansetron [Zofran ODT] 8 mg PO Q8HR PRN 11/21/16 12/12/16 Acyclovir 400 mg PO DAILY PRN 11/30/16 12/12/16 Acyclovir [Zovirax] 800 mg PO DAILY PRN 11/30/16 12/12/16 carBAMazepine [TEGretol XR] 200 mg PO BID 11/30/16 12/12/16 carBAMazepine [TEGretol XR] 200 mg PO HS 11/30/16 12/12/16 tiZANidine [Zanaflex] 4 mg PO TID PRN 11/30/16 12/12/16 Cetirizine HCl [Zyrtec] 10 mg PO HS PRN 12/12/16 12/12/16 Memantine [Namenda] 5 mg PO BID 12/12/16 12/12/16 Rizatriptan Benzoate [Maxalt] 10 mg PO BID PRN 12/12/16 12/12/16 Tiotropium [place] [Spiriva 2 puff INHALATION RT-BID PRN 12/12/16 12/12/16 Respimat] Allergies Allergy/AdvReac Type Severity Reaction Status Date / Time azithromycin Allergy Rash/Hives Verified 12/12/16 18:00 [From Zithromax Z-Mehrdad] cimetidine [From Tagamet] Allergy Rash/Hives Verified 12/12/16 18:00 ether [Ether] Allergy Anaphylaxis Verified 12/12/16 18:00 Fish Containing Products Allergy Anaphylaxis Verified 12/12/16 18:00 [Fish] ketorolac tromethamine Allergy Rash/Hives Verified 12/12/16 18:00 [From Toradol] ziprasidone HCl [From Geodon] Allergy Extrapyramidal Verified 12/12/16 18:00 Symptoms fluphenazine HCl AdvReac Extrapyramidal Verified 12/12/16 18:00 [From Prolixin] Symptoms haloperidol [From Haldol] AdvReac Extrapyramidal Verified 12/12/16 18:00 Symptoms Sulfa (Sulfonamide AdvReac Nausea & Verified 12/12/16 18:00 Antibiotics) Vomiting Review of Systems ROS Statement: Those systems with pertinent positive or pertinent negative responses have been documented in the HPI. ROS Other: All systems not noted in ROS Statement are negative. Past Medical History Past Medical History: Asthma, GERD/Reflux, Hyperlipidemia, Musculoskeletal Disorder, Neurologic Disorder, Osteoarthritis (OA), Seizure Disorder Additional Past Medical History / Comment(s): RSD-left foot, INTERSTITAIL CYSTITIS, BRONCHITIS, HEMORROIDS,MIGRAINES-GETS INJECTIONS IN NECK FOR THEM, INSOMNIA. Vertigo History of Any Multi-Drug Resistant Organisms: MRSA Date of last positivie culture/infection: 04/20/15 MDRO Source:: Left Axilla Past Surgical History: Adenoidectomy, Back Surgery, Orthopedic Surgery, Tonsillectomy Additional Past Surgical History / Comment(s): bilateral foot surgery d/t rsd, numerous pain clinic procedures, nerve stimulator in back to tx RSD placed 05/23. three new nerve stimulators to back placed in Nov 11 2015, 05-15-16 EGD W/ BX-SMALL SLIDING HIATAL HERNIA/GASTRITIS. Additional Past Anesthesia/Blood Transfusion Reaction / Comment(s): Pt recieved blood when she was 2 yrs old after tonsillectomy. WHEN BABY HEART STOPPED TWICE- PT STATED SHE WAS ALLERGIC TO ETHER. Past Psychological History: Anxiety, Bipolar, Depression, PTSD Smoking Status: Never smoker Past Alcohol Use History: None Reported Past Drug Use History: Marijuana - Past Family History Father History Unknown: Yes Mother Family Medical History: Cancer, CVA/TIA, Myocardial Infarction ([place]) Additional Family Medical History / Comment(s): Mother has had 5 CVAs, 3 MIs and UTERINE CANCER General Exam - General Exam Comments Initial Comments: 31-year-old female. Patient appears to be tearful and anxious. General appearance: alert, in no apparent distress Head exam: Present: atraumatic, normocephalic, normal inspection Eye exam: Present: normal appearance, PERRL, EOMI. Absent: scleral icterus, conjunctival injection, periorbital swelling ENT exam: Present: normal exam, mucous membranes moist Neck exam: Present: normal inspection. Absent: tenderness, meningismus, lymphadenopathy Respiratory exam: Present: normal lung sounds bilaterally. Absent: respiratory distress, wheezes, rales, rhonchi, stridor Cardiovascular Exam: Present: regular rate, normal rhythm, normal heart sounds. Absent: systolic murmur, diastolic murmur, rubs, gallop, clicks GI/Abdominal exam: Present: soft, tenderness ( is right upper quadrant tenderness. ), normal bowel sounds. Absent: distended, guarding, rebound, rigid Extremities exam: Present: normal inspection, full ROM, normal capillary refill. Absent: tenderness, pedal edema, joint swelling, calf tenderness Back exam: Present: normal inspection Neurological exam: Present: alert, oriented X3, CN II-XII intact Psychiatric exam: Present: normal affect, normal mood Skin exam: Present: warm, dry, intact, normal color. Absent: rash Course Vital Signs 12/12/16 17:18 Temperature 98.3 F Pulse Rate 95 Respiratory 16 Rate Blood Pressure 128/63 O2 Sat by Pulse 95 Oximetry - Reevaluation(s) Reevaluation #1: 12/12/16 19:11 At this time patient is now a resting comfortably in bed. She is stating that she is uncomfortable and still has the pain a 6 out of 10. Patient is informed that all results are within normal limits. Ultrasound was negative. Medical Decision Making - Medical Decision Making 31-year-old female in the emergency Department chief complaint of increased right upper quadrant abdominal pain. She was sent here from the surgeon's office due to severe down pain. She reports that she had poor results from her HIDA scan and does need to have her gallbladder removed. At this time PATIENT' S lab work was reviewed and negative for any acute process. No leukocytosis. Liver enzymes a Marx enzymes within normal limits. Gallbladder ultrasound obtained. No evidence of cholelithiasis. Common bile duct within normal limits. Patient was reevaluated and reports that she is feeling somewhat better but still having some pain. Discussed all of her lab results and testing was normal. Discussion is to call her surgeon tomorrow to schedule a outpatient appointment to have her gallbladder removed. is agreement with this. Patient will be discharged at this time. Close return parameters discussed. - Lab Data Result diagrams: 12/12/16 17:44 12/12/16 17:44 Lab Results 12/12/16 12/12/16 12/12/16 Range/Units 17:20 17:20 17:44 WBC (3.8-10.6) k/uL RBC (3.80-5.40) m/uL Hgb (11.4-16.0) gm/dL Hct (34.0-46.0) % MCV (80.0-100.0) fL MCH (25.0-35.0) pg MCHC (31.0-37.0) g/dL RDW (11.5-15.5) % Plt Count (150-450) k/uL Neutrophils % % Lymphocytes % % Monocytes % % Eosinophils % % Basophils % % Neutrophils # (1.3-7.7) k/uL Lymphocytes # (1.0-4.8) k/uL Monocytes # (0-1.0) k/uL Eosinophils # (0-0.7) k/uL Basophils # (0-0.2) k/uL PT (9.0-12.0) sec INR (<1.2) APTT (22.0-30.0) sec Sodium 141 (137-145) mmol/L Potassium 3.7 (3.5-5.1) mmol/L Chloride 106 (98-107) mmol/L Carbon Dioxide 20 L (22-30) mmol/L Anion Gap 15 mmol/L BUN 18 H (7-17) mg/dL Creatinine 0.95 (0.52-1.04) mg/dL Est GFR (MDRD) Af Amer >60 (>60 ml/min/1.73 sqM) Est GFR (MDRD) Non-Af >60 (>60 ml/min/1.73 sqM) Glucose 111 H (74-99) mg/dL Calcium 9.8 (8.4-10.2) mg/dL Total Bilirubin 0.2 (0.2-1.3) mg/dL AST 15 (14-36) U/L ALT 21 (9-52) U/L Alkaline Phosphatase 101 (38-126) U/L Total Protein 6.8 (6.3-8.2) g/dL Albumin 4.6 (3.5-5.0) g/dL Amylase 45 (30-110) U/L Lipase 70 (23-300) U/L Urine Color Yellow Urine Appearance Clear (Clear) Urine pH 6.5 (5.0-8.0) Ur Specific [place] 1.021 (1.001-1.035) Urine Protein Negative (Negative) Urine Glucose (UA) Negative (Negative) Urine Ketones Negative (Negative) Urine Blood Negative (Negative) Urine Nitrite Negative (Negative) Urine Bilirubin Negative (Negative) Urine Urobilinogen <2.0 (<2.0) mg/dL Ur Leukocyte Esterase Negative (Negative) Urine HCG, Qual Not Detected (Not Detectd) Blood Type Blood Type Recheck Antibody Screen Spec Expiration Date 12/12/16 12/12/16 12/12/16 Range/Units 17:44 17:44 17:44 WBC 6.6 (3.8-10.6) k/uL RBC 4.67 (3.80-5.40) m/uL Hgb 14.7 (11.4-16.0) gm/dL Hct 41.2 (34.0-46.0) % MCV 88.1 (80.0-100.0) fL MCH 31.5 (25.0-35.0) pg MCHC 35.8 (31.0-37.0) g/dL RDW 12.6 (11.5-15.5) % Plt Count 280 (150-450) k/uL Neutrophils % 68 % Lymphocytes % 22 % Monocytes % 6 % Eosinophils % 3 % Basophils % 1 % Neutrophils # 4.4 (1.3-7.7) k/uL Lymphocytes # 1.4 (1.0-4.8) k/uL Monocytes # 0.4 (0-1.0) k/uL Eosinophils # 0.2 (0-0.7) k/uL Basophils # 0.0 (0-0.2) k/uL PT 10.3 (9.0-12.0) sec INR 1.0 (<1.2) APTT 27.2 (22.0-30.0) sec Sodium (137-145) mmol/L Potassium (3.5-5.1) mmol/L Chloride (98-107) mmol/L Carbon Dioxide (22-30) mmol/L Anion Gap mmol/L BUN (7-17) mg/dL Creatinine (0.52-1.04) mg/dL Est GFR (MDRD) Af Amer (>60 ml/min/1.73 sqM) Est GFR (MDRD) Non-Af (>60 ml/min/1.73 sqM) Glucose (74-99) mg/dL Calcium (8.4-10.2) mg/dL Total Bilirubin (0.2-1.3) mg/dL AST (14-36) U/L ALT (9-52) U/L Alkaline Phosphatase (38-126) U/L Total Protein (6.3-8.2) g/dL Albumin (3.5-5.0) g/dL Amylase (30-110) U/L Lipase (23-300) U/L Urine Color Urine Appearance (Clear) Urine pH (5.0-8.0) Ur Specific [place] (1.001-1.035) Urine Protein (Negative) Urine Glucose (UA) (Negative) Urine Ketones (Negative) Urine Blood (Negative) Urine Nitrite (Negative) Urine Bilirubin (Negative) Urine Urobilinogen (<2.0) mg/dL Ur Leukocyte Esterase (Negative) Urine HCG, Qual (Not Detectd) Blood Type O Positive Blood Type Recheck No Antibody Screen NEGATIVE Spec Expiration Date 12/15/2016 - 6961 - Radiology Data Radiology results: report reviewed No gallstones or dilated ducts. No focal liver defect. No hydronephrosis right kidney. Patient did have a positive Bruner sign on exam. The common bile duct was within normal limits. The liver size was within normal limits. Disposition Clinical Impression: Biliary colic Disposition: HOME SELF-CARE Condition: Good Instructions: Biliary Colic (ED) Additional Instructions: Patient advised to follow-up with her surgeon, Dr. Prabhakar. Patient needs to wait any fatty foods and this exacerbates gallbladder pain. Patient should return to emergency department if any alarming signs or symptoms occur. Referrals: Gustavo Chappell MD [Primary Care Provider] - 1-2 days Marilia Prabhakar MD [STAFF PHYSICIAN] - 1-2 days Time of Disposition: 19:12
[2016-12-12 17:33] LABS: Appearance,Urine Clear (Clear); Bilirubin,Urine Negative (Negative); Glucose,Urine (UA) Negative (Negative); Ketones,Urine Negative (Negative); Leukocyte Esterase,Urine Negative (Negative); Nitrite,Urine Negative (Negative); PH, Urine 6.5 (5.0-8.0); Protein,Urine Negative (Negative); Specific Gravity,Urine 1.021 (1.001-1.035); UA Billing (MACRO vs. MICRO) CHEM; Urobilinogen,Urine <2.0 mg/dL (<2.0)
[2016-12-12 17:57] LABS: Basophils % (A) 1 %; CH 32.1; CHCM 36.6; Eosinophils # (A) 0.2 k/uL (0-0.7); Eosinophils % (A) 3 %; HCT 41.2 % (34.0-46.0); HDW 2.66; HGB 14.7 gm/dL (11.4-16.0); Luc # (Auto) 0.07; Luc % (Auto) 1; Lymphocytes # (A) 1.4 k/uL (1.0-4.8); Lymphocytes % (A) 22 %; MCH 31.5 pg (25.0-35.0); MCHC 35.8 g/dL (31.0-37.0); MCV 88.1 fL (80.0-100.0); Mean Platelet Volume 6.8; Monocytes # (A) 0.4 k/uL (0-1.0); Monocytes % (A) 6 %; Neutrophils # (A) 4.4 k/uL (1.3-7.7); Neutrophils % (A) 68 %; RBC 4.67 m/uL (3.80-5.40); RDW 12.6 % (11.5-15.5); WBC 6.6 k/uL (3.8-10.6); WBC (Perox) 6.68
[2016-12-12 18:06] LABS: Partial Thromboplastin Time 27.2 sec (22.0-30.0); Prothrombin Time 10.3 sec (9.0-12.0)
[2016-12-12 18:11] LABS: ALT 21 U/L (9-52); AST 15 U/L (14-36); Alkaline Phosphatase 101 U/L (38-126); Amylase 45 U/L (30-110); Anion Gap 15 mmol/L; Blood Urea Nitrogen 18 mg/dL (7-17); Calcium 9.8 mg/dL (8.4-10.2); Carbon Dioxide 20 mmol/L (22-30); Chloride 106 mmol/L (98-107); Glucose 111 mg/dL (74-99); Non-African American GFR(MDRD) >60 (>60 ml/min/1.73 sqM); Potassium 3.7 mmol/L (3.5-5.1); Sodium 141 mmol/L (137-145); Total Bilirubin 0.2 mg/dL (0.2-1.3); Total Protein 6.8 g/dL (6.3-8.2)
--- NOTE | 2016-12-12 18:58 | US ---
EXAMINATION TYPE: US gallbladder DATE OF EXAM: 12/12/2016 COMPARISON: NONE CLINICAL HISTORY: Pain. RUQ pain nausea vomiting EXAM MEASUREMENTS: Liver Length: 17.32 cm Gallbladder Wall: 0.27 cm CBD: 0.56 cm Right Kidney: 10.0 x 3.6 x 3.5 cm Pancreas: Tail obscured by overlying bowel gas Liver: wnl Gallbladder: wnl Evidence for sonographic Bruner's sign: Yes CBD: wnl Right Kidney: No hydronephrosis or masses seen Prominent pancreatic duct visualized IMPRESSION: No gallstones or dilated ducts. No focal liver defect.
[2016-12-12] MEDS ORDERED: diphenhydrAMINE 50 MG/ML 1 ML VIAL IVP STA (19:12)
[2016-12-12] MEDS ORDERED: METOCLOPRAMIDE 5 MG/ML 2 ML VIAL IVP STA (19:12)
[2016-12-12 19:31] VITALS: PULSE 102; RESP 18; TEMP 98.2
[2016-12-12 19:37] VITALS: BP 155/101
== END 2016-12-12 19:39 | disposition home or self-care (01) ==
LOC: EC 16:59
DX: K80.50 Calculus of bile duct without cholangitis or cholecystitis without obstruction (principal); J45.909 Unspecified asthma, uncomplicated; K21.9 Gastro-esophageal reflux disease without esophagitis; E78.5 Hyperlipidemia, unspecified; F41.9 Anxiety disorder, unspecified; F32.9 Major depressive disorder, single episode, unspecified; F43.10 Post-traumatic stress disorder, unspecified; G40.909 Epilepsy, unspecified, not intractable, without status epilepticus; Z86.69 Personal history of other diseases of the nervous system and sense organs; Z86.14 Personal history of Methicillin resistant Staphylococcus aureus infection; Z79.3 Long term (current) use of hormonal contraceptives; Z79.899 Other long term (current) drug therapy; Z88.1 Allergy status to other antibiotic agents; Z88.2 Allergy status to sulfonamides; Z88.6 Allergy status to analgesic agent; Z88.8 Allergy status to other drugs, medicaments and biological substances; Z91.013 Allergy to seafood
CPT/HCPCS: 99285; 96374; 96375 ×3; 96376; 96361 ×2; 36415; 86900; 86901; 80053; 82150; 83690; 85025; 85610; 85730; 86850; 81003; 81025; 76705; J1200; J2765; J2405; J1170

== ENCOUNTER 2016-12-21 07:43 | Day surgery (SDC) | payer MEDICARE, OTHER ==
[2016-12-18 14:45] VITALS: BMI 29.2
[~2016-12-21 07:43] MED LIST changes: +DEXAMETHASONE SOD PHOSPHATE 10 MG/ML 1 ML VIAL IV ONE; +HEPARIN SODIUM,PORCINE 5,000 UNIT/ML 1 ML VIAL SQ ONE; +HYDROmorphone 1 MG/ML 1 ML SYRINGE IVP PRN; +LIDOCAINE 1% 20 ML VIAL (10MG/ML) FOR IV START INTRADERMA PRN; +ONDANSETRON 4 MG/2 ML VIAL IVP ONE; +SCOPOLAMINE 1.5MG/72HR PATCH TRANSDERM ONE
[2016-12-21] MEDS ORDERED: ESMOLOL 100 MG/10 ML VIAL ONE (09:12)
[2016-12-21] MEDS ORDERED: ROCURONIUM BROMIDE 10 MG/ML 10 ML VIAL IV ONE (09:12)
[2016-12-21] MEDS ORDERED: fentaNYL (PF) 50 MCG/ML 2 ML AMP ONE (09:12)
[2016-12-21] MEDS ORDERED: NEOSTIGMINE 1 MG/ML 10 ML VIAL ONE (09:12)
[2016-12-21] MEDS ORDERED: MIDAZOLAM 2 MG/2 ML VIAL ONE (09:12)
[2016-12-21] MEDS ORDERED: GLYCOPYRROLATE 0.2 MG/ML 2 ML VIAL ONE (09:12)
[2016-12-21] MEDS ORDERED: SUCCINYLCHOLINE CHLORIDE 100 MG/5 ML SYR IV ONE (09:12)
[2016-12-21] MEDS ORDERED: PROPOFOL 10 MG/ML 20 ML VIAL IV ONE (09:12)
[2016-12-21] MEDS: ceFAZolin 2 GM in SODIUM CHLORIDE 0.9% 100 ML IVPB ONE ×2 (09:18→09:23)
[2016-12-21] MEDS ORDERED: LIDOCAINE 2%-EPI 1:100,000 20 ML VIAL SQ ONE (09:33)
[2016-12-21] MEDS ORDERED: MEPERIDINE 50 MG/ML SYRINGE IVP ONE ×2 (10:21→10:30)
[2016-12-21] MEDS ORDERED: ONDANSETRON 4 MG/2 ML VIAL IVP ONE (10:25)
--- NOTE | 2016-12-21 10:27 | P.OP ---
Date of Procedure: 12/21/16 Preoperative Diagnosis: Biliary Dyskinesia Postoperative Diagnosis: Biliary dyskinesia Procedure(s) Performed: Laparoscopic cholecystectomy Anesthesia: CHIP Surgeon: Marilia Prabhakar Estimated Blood Loss (ml): 20 Pathology: other Condition: stable Disposition: PACU Description of Procedure: The patient is a 31-year-old female who presented with epigastric and upper abdominal pain which localized in the right upper quadrant was tender and a HIDA scan that revelaed the gall bladder to have Biliary Dyskinesia with a reduced EF. The risks benefits and possible complications of the procedure were discussed in detail and informed consent was obtained. Patient was identified in the preop operating holding area questions were answered and she was taken back to the operating room where she was placed in the supine position. She was given general anesthesia with endotracheal intubation followed by the placement of an orogastric tube and an appropriate timeout was called the indication procedure ALLERGIES medications from her prophylaxis were all discussed. Abdomen is prepped and draped in the usual sterile surgical fashion supraumbilical region was infiltrated with quarter percent with local anesthesia and incision was made with 11 blade and Veress needle was introduced and abdomen was insufflated to 15 mmHg. Once that was done a 10 mm epigastric port and two 5 mm right upper quadrant ports were placed.the gallbladder was retracted cephalad and superiorly.The fundus was retracted so as to make the Calot's triangle more visible. Critical view was a [place] was obtained and both cystic artery and duct were clearly identified and the gallbladder taken off the hepatic plate. Cystic duct was clipped proximally and distally followed by clipping of the branches of the cystic artery following which they were transected sharply with the help of the nadeem. The gallbladder was then taken off the gallbladder fossa with the help of electrocautery and placed in an Endo Catch bag and removed through the 10 m port site after dilating the port site with a Patti. The port was replaced and the gallbladder fossa was inspected and hemostasis was secured with the help of electrocautery the abdomen was thoroughly irrigated and sucked dry. [place] were noted to be in the appropriate position at this time to take procedure was terminated. the 10 mm port was removed and the port site was closed with the help of a Maciej Murray using 0 Vicryl.The Gas was shut off and all the 5 mm ports were removed. The abdomen was thoroughly desufflated. The remaining local anesthesia was infiltrated into the incisions and the incisions were closed with the help of 4-0 Monocryl and dermabond was applied. The patient was extubated and taken to recovery room in stable condition. There were no complications.
[2016-12-21 10:28] VITALS: TEMP 97
[2016-12-21] MEDS ORDERED: diphenhydrAMINE 50 MG/ML 1 ML VIAL IVP ONE (10:32)
[2016-12-21] MEDS ORDERED: LACTATED RINGERS 1,000 ML IV ONE ×3 (10:33→11:30)
[2016-12-21] MEDS ORDERED: HYDROmorphone 1 MG/ML 1 ML SYRINGE IVP ONE ×2 (10:42→10:58)
[2016-12-21 10:47] VITALS: RESP 16
[2016-12-21] MEDS ORDERED: HYDROcodone/APAP 5-325MG 1 EACH TAB PO ONE (12:02)
[2016-12-21 12:46] VITALS: BP 152/80; PULSE 82
== END 2016-12-21 13:00 | disposition home or self-care (01) ==
LOC: OR 07:43
PROVIDERS: ATTEND Surgery
DX: K82.8 Other specified diseases of gallbladder (principal); G90.529 Complex regional pain syndrome I of unspecified lower limb; F41.8 Other specified anxiety disorders; J45.909 Unspecified asthma, uncomplicated; K21.9 Gastro-esophageal reflux disease without esophagitis; M19.90 Unspecified osteoarthritis, unspecified site; E78.5 Hyperlipidemia, unspecified; G40.909 Epilepsy, unspecified, not intractable, without status epilepticus; F12.90 Cannabis use, unspecified, uncomplicated; Z88.2 Allergy status to sulfonamides; Z88.1 Allergy status to other antibiotic agents; Z88.4 Allergy status to anesthetic agent; Z82.49 Family history of ischemic heart disease and other diseases of the circulatory system; Z79.899 Other long term (current) drug therapy; Z88.5 Allergy status to narcotic agent
CPT/HCPCS: 81025; 88304; 47562; J2250; J1200; J1644; J1100; J2710; J2175; J0690; J2405; J3010; J1170; J0330; J2704

== ENCOUNTER 2016-12-21 23:02 | Observation (INO) | payer MEDICARE, OTHER ==
[2016-12-21] MEDS ORDERED: ACETAMINOPHEN TAB 325 MG TAB PO STA (23:35)
[2016-12-21] MEDS ORDERED: MORPHINE SULFATE 10 MG/ML SYRINGE IV ONE (23:35)
[2016-12-22] MEDS ORDERED: NALOXONE 0.4 MG/ML 1 ML VIAL IV PRN (00:09)
--- NOTE | 2016-12-22 00:11 | ED ---
Abdominal Pain HPI - General Chief Complaint: Abdominal Pain Stated Complaint: Post Op/Abd Pain Time Seen by Provider: 12/21/16 23:12 Source: patient Mode of arrival: wheelchair Limitations: no limitations - History of Present Illness Initial Comments: Patient is a 31-year-old female who presents with a chief complaint of abdominal pain. Patient has a known history of narcotic abuse. Patient had her gallbladder removed today, and was sent home. At home she was doing well until she was jumped on by her 55 pound pit bull. Patient states this happened 2 hours prior to arrival. She states that she is having extreme pains since then. She cannot describe any aggravating or alleviating factors. Timing is constant. Patient denies any ripping stitches or external bleeding. Patient tried taking a [place] and Motrin at home without alleviation. - Related Data Home Medications Medication Instructions Recorded Confirmed Gemfibrozil [Lopid] 600 mg PO AC-BID 11/22/13 12/21/16 Medroxyprogesterone Acetate 150 mg IM Q90D 11/22/13 12/21/16 [Depo-Provera] rOPINIRole HCL [Requip] 1 mg PO HS 11/22/13 12/21/16 Montelukast [Singulair] 10 mg PO HS 10/07/14 12/21/16 Pentosan Polysulfate Sodium 100 mg PO BID 02/10/15 12/21/16 [Elmiron] Pantoprazole Sodium [Protonix] 40 mg PO QAM 04/20/15 12/21/16 Beclomethasone Dipropionate [Qvar 2 puff INHALATION RT-BID PRN 06/07/15 12/21/16 80 mcg/puff] Prazosin HCl [Minipress] 2 mg PO HS 01/04/16 12/21/16 traZODone HCL [Desyrel] 300 mg PO HS 01/04/16 12/21/16 Gabapentin 600 mg PO BID 06/14/16 12/21/16 HYDROcodone/APAP 7.5-325MG [[place] 1 tab PO TID PRN 07/20/16 12/21/16 7.5-325] Hydrochlorothiazide [Hydrodiuril] 25 mg PO QAM 07/20/16 12/21/16 Paliperidone Palmitate [Invega 117 mg IM Q28D 07/20/16 12/21/16 Sustenna] carBAMazepine [TEGretol XR] 300 mg PO QAM 07/20/16 12/21/16 Amantadine HCl [Symmetrel] 100 mg PO QAM 11/21/16 12/21/16 Metoclopramide [Reglan] 5 mg PO ACHS 11/21/16 12/21/16 Ondansetron [Zofran ODT] 8 mg PO Q8HR PRN 11/21/16 12/21/16 Acyclovir [Zovirax] 800 mg PO DAILY PRN 11/30/16 12/21/16 carBAMazepine [TEGretol XR] 400 mg PO HS 11/30/16 12/21/16 tiZANidine [Zanaflex] 4 mg PO TID PRN 11/30/16 12/21/16 Memantine [Namenda] 5 mg PO BID 12/12/16 12/21/16 Rizatriptan Benzoate [Maxalt] 10 mg PO BID PRN 12/12/16 12/21/16 Tiotropium [place] [Spiriva 2 puff INHALATION RT-BID PRN 12/12/16 12/21/16 Respimat] Allergies Allergy/AdvReac Type Severity Reaction Status Date / Time azithromycin Allergy Rash/Hives Verified 12/21/16 23:07 [From Zithromax Z-Mehrdad] cimetidine [From Tagamet] Allergy Rash/Hives Verified 12/21/16 23:07 ether [Ether] Allergy Anaphylaxis Verified 12/21/16 23:07 Fish Containing Products Allergy Anaphylaxis Verified 12/21/16 23:07 [Fish] ketorolac tromethamine Allergy Rash/Hives Verified 12/21/16 23:07 [From Toradol] ziprasidone HCl [From Geodon] Allergy Extrapyramidal Verified 12/21/16 23:07 Symptoms fluphenazine HCl AdvReac Extrapyramidal Verified 12/21/16 23:07 [From Prolixin] Symptoms haloperidol [From Haldol] AdvReac Extrapyramidal Verified 12/21/16 23:07 Symptoms Sulfa (Sulfonamide AdvReac Nausea & Verified 12/21/16 23:07 Antibiotics) Vomiting Review of Systems ROS Statement: Those systems with pertinent positive or pertinent negative responses have been documented in the HPI. ROS Other: All systems not noted in ROS Statement are negative. Constitutional: Denies: fever, chills Eyes: Denies: vision change ENT: Denies: ear pain, throat pain Respiratory: Denies: dyspnea Cardiovascular: Denies: chest pain Endocrine: Denies: fatigue Gastrointestinal: Reports: abdominal pain, nausea Genitourinary: Denies: dysuria Musculoskeletal: Denies: back pain Skin: Denies: lesions Neurological: Denies: headache Past Medical History Past Medical History: Asthma, GERD/Reflux, Hyperlipidemia, Musculoskeletal Disorder, Neurologic Disorder, Osteoarthritis (OA), Seizure Disorder Additional Past Medical History / Comment(s): RSD-DERIC FEET, INTERSTITIAL CYSTITIS, BRONCHITIS, HEMORRHOIDS,MIGRAINES, INSOMNIA. VERTIGO, last seizure 4 years ago History of Any Multi-Drug Resistant Organisms: MRSA Date of last positivie culture/infection: 04/20/15 MDRO Source:: Left Axilla Past Surgical History: Adenoidectomy, Back Surgery, Orthopedic Surgery, Tonsillectomy Additional Past Surgical History / Comment(s): bilateral foot surgery d/t rsd, numerous pain clinic procedures, nerve stimulator in back to tx RSD placed in Nov 11 2015 Past Anesthesia/Blood Transfusion Reactions: Previous Problems w/ Anesthesia Additional Past Anesthesia/Blood Transfusion Reaction / Comment(s): Pt recieved blood when she was 2 yrs old after tonsillectomy. WHEN BABY HEART STOPPED TWICE- PT STATED SHE WAS ALLERGIC TO ETHER. Past Psychological History: Anxiety, Bipolar, Depression, PTSD Smoking Status: Never smoker Past Alcohol Use History: None Reported Past Drug Use History: None Reported - Past Family History Father History Unknown: Yes Mother Family Medical History: Cancer, CVA/TIA, Diabetes Mellitus, Myocardial Infarction (ID) Additional Family Medical History / Comment(s): Mother has had 5 CVAs, 3 MIs and UTERINE CANCER General Exam Limitations: no limitations General appearance: alert, in distress (Secondary to pain, patient is tearful on exam) Head exam: Present: atraumatic, normocephalic Eye exam: Present: normal appearance ENT exam: Present: normal exam, mucous membranes moist Neck exam: Present: normal inspection Respiratory exam: Present: normal lung sounds bilaterally Cardiovascular Exam: Present: regular rate, normal rhythm, normal heart sounds GI/Abdominal exam: Present: soft, tenderness, guarding (Patient has several laparoscopy scars that are well approximated, clean and dry patient is having the most tenderness to palpation in the right upper and right lower quadrants.) . Absent: distended Rectal exam: Present: deferred Extremities exam: Present: normal inspection Back exam: Present: normal inspection Neurological exam: Present: alert, oriented X3 Psychiatric exam: Present: normal affect, normal mood Skin exam: Present: warm, dry, intact Course Vital Signs 12/21/16 23:05 Temperature 98.8 F Pulse Rate 72 Respiratory 20 Rate Blood Pressure 155/73 O2 Sat by Pulse 97 Oximetry Medical Decision Making - Medical Decision Making Patient presents with a chief complaint of abdominal pain, status post cholecystectomy today, after her dog jumped on her at home. Dr. Underwood was contacted by Dr. Sarabia about this patient. Dr. Sarabia states that it is best to just put patient in observation for tonight. I initial evaluation, vital signs are stable, patient is in mild distress secondary to pain. Examination of the abdomen shows clean, dry, intact surgical scars. Patient is mild to moderately tender to palpation this is likely secondary to recent surgery. Patient was given a dose of Toradol, a dose of morphine for pain control. Patient will be admitted for observation and pain control. At this time, given the low mechanism of injury, I do not believe that imaging is warranted at this time. Rather patient will be best served by a period of observation and reexamination. Disposition Clinical Impression: Post-op pain Disposition: ADMITTED IP TO THIS [facility] Condition: Good Referrals: Gustavo Chappell MD [Primary Care Provider] - 1-2 days Decision to Admit Reason: Admit from EC
[2016-12-22 01:14] VITALS: BMI 29.2
[2016-12-22] MEDS: HYDROcodone/APAP 5-325MG 1 EACH TAB PO PRN ×5 (01:21→23:01)
[2016-12-22] MEDS: MORPHINE SULFATE 4 MG/ML SYRINGE IV PRN ×3 (04:14→14:16)
[2016-12-22] MEDS ORDERED: diphenhydrAMINE 25 MG CAP PO STA (10:07)
[2016-12-22] MEDS: LORazepam 2 MG/ML INJ IV PRN ×2 (12:42→18:36)
[2016-12-22] MEDS ORDERED: HYDROmorphone 1 MG/ML 1 ML SYRINGE IM PRN (15:40)
[2016-12-22 15:50] LABS: Basophils % (A) 1 %; CH 31.6; CHCM 34.2; Eosinophils # (A) 0.1 k/uL (0-0.7); Eosinophils % (A) 2 %; HCT 40.4 % (34.0-46.0); HDW 2.57; HGB 14.1 gm/dL (11.4-16.0); Luc # (Auto) 0.07; Luc % (Auto) 1; Lymphocytes % (A) 31 %; MCH 32.5 pg (25.0-35.0); MCV 92.9 fL (80.0-100.0); Mean Platelet Volume 6.6; Monocytes # (A) 0.4 k/uL (0-1.0); Monocytes % (A) 6 %; Neutrophils # (A) 3.9 k/uL (1.3-7.7); Neutrophils % (A) 59 %; RBC 4.35 m/uL (3.80-5.40); RDW 12.6 % (11.5-15.5); WBC 6.6 k/uL (3.8-10.6); WBC (Perox) 6.42
[2016-12-22 15:59] LABS: ALT 31 U/L (9-52); AST 29 U/L (14-36); Alkaline Phosphatase 113 U/L (38-126); Amylase 53 U/L (30-110); Anion Gap 11 mmol/L; Blood Urea Nitrogen 9 mg/dL (7-17); Calcium 9.4 mg/dL (8.4-10.2); Carbon Dioxide 20 mmol/L (22-30); Chloride 108 mmol/L (98-107); Glucose 81 mg/dL (74-99); Magnesium 1.8 mg/dL (1.6-2.3); Non-African American GFR(MDRD) >60 (>60 ml/min/1.73 sqM); Sodium 139 mmol/L (137-145); Total Bilirubin 0.2 mg/dL (0.2-1.3); Total Protein 6.2 g/dL (6.3-8.2)
--- NOTE | 2016-12-22 16:00 | XR ---
EXAMINATION TYPE: XR chest 1V portable DATE OF EXAM: 12/22/2016 COMPARISON: 06/14/2016 HISTORY: Short of breath TECHNIQUE: Single frontal view of the chest is obtained. FINDINGS: There is a small linear density at the left lung base. There is neurostimulator apparently over the lower thoracic spine. Lungs are clear of consolidation. There is no heart failure. Heart si ze is normal. There are no hilar masses. IMPRESSION: New mild subsegmental atelectasis at the left lung base compared to old exam. Normal hea rt.
[2016-12-22 16:10] LABS: INR 1.1 (<1.2); Prothrombin Time 10.8 sec (9.0-12.0)
[2016-12-22] MEDS ORDERED: SUMAtriptan SUCCINATE 50 MG TAB PO PRN (16:27)
[2016-12-22] MEDS ORDERED: RX INFO: IV CONTRAST WAS GIVEN 1 EACH MISC MISCELLANE PRN (16:51)
--- NOTE | 2016-12-22 17:04 | P.GSHP ---
History of Present Illness H&P Date: 12/22/16 Chief Complaint: Abdominal pain The patient is a 31-year-old female status post laparoscopic cholecystectomy by Dr. Prabhakar yesterday morning. She reported increased abdominal pain including this morning. She has a personal history of chronic pain as well as having a pain contract with Dr. Shannon. Despite ibuprofen and [place] 5, she presented to the ER for admission for control of her pain. - Review of Systems Comment: CONSTITUTIONAL: Denies any fever or chills. HEENT: Denies any trouble with vision, hearing or nosebleeds. No difficulty swallowing. LYMPHATIC: The patient denies any lumps and bumps around the neck. ENDOCRINE: Denies any thyroid disorders. Denies any blood sugar glucose intolerance. RESPIRATORY: Denies pneumonia. Has troubles with breathing or dyspnea on exertion. CARDIOVASCULAR: Has chest pain, palpitations, or recent heart attacks. GASTROINTESTINAL: Haa heart burn, constipation or bright red blood per rectum. GENITOURINARY: Denies any blood in urine or increased urinary frequency. MUSCULOSKELETAL: Has back pain, stiffness, joint arthritis. NEUROLOGIC: Denies any numbness or tingling along the distal extremities. Has seizure disorders and headaches. PSYCHIATRIC: Has depression. No suidical ideation. HEMATOLOGIC: Denies any abnormal bleeding or bruising. Past Medical History Past Medical History: Asthma, GERD/Reflux, Hyperlipidemia, Musculoskeletal Disorder, Neurologic Disorder, Osteoarthritis (OA), Seizure Disorder Additional Past Medical History / Comment(s): RSD-DERIC FEET, INTERSTITIAL CYSTITIS, BRONCHITIS, HEMORRHOIDS,MIGRAINES, INSOMNIA. VERTIGO, last seizure 4 years ago History of Any Multi-Drug Resistant Organisms: MRSA Date of last positivie culture/infection: 04/20/15 MDRO Source:: Left Axilla Past Surgical History: Adenoidectomy, Back Surgery, Orthopedic Surgery, Tonsillectomy Additional Past Surgical History / Comment(s): bilateral foot surgery d/t rsd, numerous pain clinic procedures, nerve stimulator in back to tx RSD placed in Nov 11 2015 Past Anesthesia/Blood Transfusion Reactions: Previous Problems w/ Anesthesia Additional Past Anesthesia/Blood Transfusion Reaction / Comment(s): Pt recieved blood when she was 2 yrs old after tonsillectomy. WHEN BABY HEART STOPPED TWICE- PT STATED SHE WAS ALLERGIC TO ETHER. Past Psychological History: Anxiety, Bipolar, Depression, PTSD Additional Psychological History / Comment(s): MOOD DISORDER AND MULTIPLE PERSONALITY DISORDER, 4 YEARS AGO HAD SUICIDE ATTEMPT DENIES ANY FURTHUR THOUGHTS OF SUICIDE OR HARMING SELF SINCE Smoking Status: Never smoker Past Alcohol Use History: None Reported Additional Past Alcohol Use History / Comment(s): Pt very rarely drinks alcohol. Past Drug Use History: None Reported Additional Drug Use History / Comment(s): Pt uses medical marijuana a few times a month for pain control. She will take a few puffs then put it out. - Past Family History Father History Unknown: Yes Mother Family Medical History: Cancer, CVA/TIA, Diabetes Mellitus, Myocardial Infarction (PR) Additional Family Medical History / Comment(s): Mother has had 5 CVAs, 3 MIs and UTERINE CANCER Medications and Allergies Home Medications Medication Instructions Recorded Confirmed Type Gemfibrozil [Lopid] 600 mg PO AC-BID 11/22/13 12/21/16 History Medroxyprogesterone Acetate 150 mg IM Q90D 11/22/13 12/21/16 History [Depo-Provera] rOPINIRole HCL [Requip] 1 mg PO HS 11/22/13 12/21/16 History Montelukast [Singulair] 10 mg PO HS 10/07/14 12/21/16 History Pentosan Polysulfate Sodium 100 mg PO BID 02/10/15 12/21/16 History [Elmiron] Pantoprazole Sodium [Protonix] 40 mg PO QAM 04/20/15 12/21/16 History Beclomethasone Dipropionate [Qvar 2 puff INHALATION RT-BID PRN 06/07/15 History 80 mcg/puff] Prazosin HCl [Minipress] 2 mg PO HS 01/04/16 12/21/16 History traZODone HCL [Desyrel] 300 mg PO HS 01/04/16 12/21/16 History Gabapentin 600 mg PO BID 06/14/16 12/21/16 History HYDROcodone/APAP 7.5-325MG [[place] 1 tab PO TID PRN 07/20/16 12/21/16 History 7.5-325] Hydrochlorothiazide [Hydrodiuril] 25 mg PO QAM 07/20/16 12/21/16 History Paliperidone Palmitate [Invega 117 mg IM Q28D 07/20/16 12/21/16 History Sustenna] carBAMazepine [TEGretol XR] 300 mg PO QAM 07/20/16 12/21/16 History Amantadine HCl [Symmetrel] 100 mg PO QAM 11/21/16 12/21/16 History Metoclopramide [Reglan] 5 mg PO ACHS 11/21/16 12/21/16 History Ondansetron [Zofran ODT] 8 mg PO Q8HR PRN 11/21/16 12/21/16 History Acyclovir [Zovirax] 800 mg PO DAILY PRN 11/30/16 12/21/16 History carBAMazepine [TEGretol XR] 400 mg PO HS 11/30/16 12/21/16 History tiZANidine [Zanaflex] 4 mg PO TID PRN 11/30/16 12/21/16 History Memantine [Namenda] 5 mg PO BID 12/12/16 12/21/16 History Rizatriptan Benzoate [Maxalt] 10 mg PO BID PRN 12/12/16 12/21/16 History Tiotropium [place] [Spiriva 2 puff INHALATION RT-BID PRN 12/12/16 12/21/16 History Respimat] Allergies Allergy/AdvReac Type Severity Reaction Status Date / Time azithromycin Allergy Rash/Hives Verified 12/21/16 23:07 [From Zithromax Z-Mehrdad] cimetidine [From Tagamet] Allergy Rash/Hives Verified 12/21/16 23:07 ether [Ether] Allergy Anaphylaxis Verified 12/21/16 23:07 Fish Containing Products Allergy Anaphylaxis Verified 12/21/16 23:07 [Fish] ketorolac tromethamine Allergy Rash/Hives Verified 12/21/16 23:07 [From Toradol] ziprasidone HCl [From Geodon] Allergy Extrapyramidal Verified 12/21/16 23:07 Symptoms fluphenazine HCl AdvReac Extrapyramidal Verified 12/21/16 23:07 [From Prolixin] Symptoms haloperidol [From Haldol] AdvReac Extrapyramidal Verified 12/21/16 23:07 Symptoms Sulfa (Sulfonamide AdvReac Nausea & Verified 12/21/16 23:07 Antibiotics) Vomiting Surgical - Exam Vital Signs Temp Pulse Resp BP Pulse Ox 98.8 F 72 20 155/73 97 12/21/16 23:05 12/21/16 23:05 12/21/16 23:05 12/21/16 23:05 12/21/16 23:05 GENERAL: Well developed she is requesting pain meds. HEENT: No sclera icterus. Extraocular movements grossly intact. Moist buccal mucosa. Head is atraumatic, normocephalic. Hears conversational speech. No nasal drainage. NECK: Supple without lymphadenopathy. No JV distention. CHEST: Non-labored respirations and equal bilateral excursions. CARDIOVASCULAR: Regular rate and rhythm. Palpable 2+ radial pulses. ABDOMEN: Soft and mildly distended. MUSCULOSKELETAL: No clubbing, cyanosis or edema. NEUROLOGIC: No focal or lateralizing signs. She is requesting her pain medication and intake site medications through her IV versus oral. PSYCH: Alert and oriented to person, place and time. BREAST: There are no palpable lesions along the bilateral breasts. No axillary adenopathy. SKIN: Good skin turgor. Well perfused. Results - Labs 12/22/16 15:39 12/22/16 15:39 Abnormal Lab Results - Last 24 Hours (Table) 12/22/16 Range/Units 15:39 Chloride 108 H (98-107) mmol/L Carbon Dioxide 20 L (22-30) mmol/L Total Protein 6.2 L (6.3-8.2) g/dL Diabetes panel 12/22/16 Range/Units 15:39 Sodium 139 (137-145) mmol/L Potassium 4.0 (3.5-5.1) mmol/L Chloride 108 H (98-107) mmol/L Carbon Dioxide 20 L (22-30) mmol/L BUN 9 (7-17) mg/dL Creatinine 0.73 (0.52-1.04) mg/dL Glucose 81 (74-99) mg/dL Calcium 9.4 (8.4-10.2) mg/dL AST 29 (14-36) U/L ALT 31 (9-52) U/L Alkaline Phosphatase 113 (38-126) U/L Total Protein 6.2 L (6.3-8.2) g/dL Albumin 4.0 (3.5-5.0) g/dL Calcium panel 12/22/16 Range/Units 15:39 Calcium 9.4 (8.4-10.2) mg/dL Albumin 4.0 (3.5-5.0) g/dL Pituitary panel 12/22/16 Range/Units 15:39 Sodium 139 (137-145) mmol/L Potassium 4.0 (3.5-5.1) mmol/L Chloride 108 H (98-107) mmol/L Carbon Dioxide 20 L (22-30) mmol/L BUN 9 (7-17) mg/dL Creatinine 0.73 (0.52-1.04) mg/dL Glucose 81 (74-99) mg/dL Calcium 9.4 (8.4-10.2) mg/dL Adrenal panel 12/22/16 Range/Units 15:39 Sodium 139 (137-145) mmol/L Potassium 4.0 (3.5-5.1) mmol/L Chloride 108 H (98-107) mmol/L Carbon Dioxide 20 L (22-30) mmol/L BUN 9 (7-17) mg/dL Creatinine 0.73 (0.52-1.04) mg/dL Glucose 81 (74-99) mg/dL Calcium 9.4 (8.4-10.2) mg/dL Total Bilirubin 0.2 (0.2-1.3) mg/dL AST 29 (14-36) U/L ALT 31 (9-52) U/L Alkaline Phosphatase 113 (38-126) U/L Total Protein 6.2 L (6.3-8.2) g/dL Albumin 4.0 (3.5-5.0) g/dL - Imaging Abdominal x-ray: image reviewed (No moderate free air) Assessment and Plan (1) Post-op pain Status: Acute (2) Abdominal pain Status: Acute Plan: 1. Obtain CT of the abdomen and pelvis to exclude intra-abdominal pathology. 2. Pain control. 3. Medicine consultation appreciated. I am rounding on behalf of Dr. Prabhakar.
[2016-12-22] MEDS: IOHEXOL 350 MG/ML 25 ML BOTTLE (ORAL USE) PO PRN ×2 (17:24→18:36)
--- NOTE | 2016-12-22 19:14 | CT ---
EXAMINATION TYPE: CT abdomen pelvis w con DATE OF EXAM: 12/22/2016 COMPARISON: 10/31/2016 HISTORY: RUQ pain Post OP cholecystectomy yesterday CT DLP: 976.6 mGycm Automated exposure control for dose reduction was used. TECHNIQUE: Helical acquisition of images was performed from the lung bases through the pelvis. CONTRAST: Performed with Oral Contrast and with IV Contrast, patient injected with 100 mL of Omnipaque 300. FINDINGS: There is mild subsegmental atelectasis at the posterior lung bases. There are small pleural effusions . There are clips from cholecystectomy. Bile ducts are not dilated. Liver spleen pancreas appear normal . There is no adrenal mass. Kidneys show satisfactory contrast opacification. There is no hydronephrosi s. There is cortical thinning in the lower pole left kidney. There is no retroperitoneal adenopathy. There is minimal free fluid in the cul-de-sac. Bladder distends smoothly. There is no pelvic mass. I see no intestinal wall thickening. There are no dilated loops. There is a neurostimulator in the lowe r thoracic spine. There is a small hiatal hernia. IMPRESSION: THERE ARE NEW SMALL PLEURAL EFFUSIONS AND BASILAR ATELECTASIS COMPARED TO LAST EXAM. CHOLECYSTECTOMY. NO DILATED DUCTS. MINIMAL FREE FLUID IN THE CUL-DE-SAC. CORTICAL THINNING IN THE LEFT KIDNEY COULD R ELATE TO CHRONIC PYELONEPHRITIS.
[2016-12-22] MEDS: LEVALBUTEROL NEB (CONC) 1.25 MG/0.5 ML AMP INHALATION SCH (20:05)
[2016-12-22] MEDS: BUDESONIDE 1 MG/2 ML NEBU INHALATION SCH (20:05)
[2016-12-22] MEDS: IPRATROPIUM 0.5 MG/2.5 ML NEBU INHALATION SCH (20:05)
--- NOTE | 2016-12-22 20:08 | CONS ---
CONSULTATION DATE OF CONSULTATION: 12/22/16. I am covering for Dr. Gustavo Chappell. REASON FOR CONSULTATION: Advice regarding asthma and other multiple medical issues requested by Dr. Guthrie. HISTORY: This 31-year-old woman with a past history of asthma, GERD, hyperlipidemia, history of DJD, seizure disorder, being followed by Dr. Gustavo Chappell in the outpatient setting recently had laparoscopic cholecystectomy by Dr. Prabhakar for biliary dyskinesia. The patient went home and the patient apparently was jumped on by a 55 pounds pit bull and patient is complaining of severe abdominal pain. Patient also had severe chest pain which increased with breathing and the patient came to [facility] admitted for further evaluation and treatment. There is no history of fever, rigors. No history of headache, loss of consciousness or seizures. PAST MEDICAL HISTORY: Asthma, hyperlipidemia, DJD, history of seizure disorder, RSD. MEDICATIONS: Prior to admission include home medications are: 1. Desyrel 300 mg q.h.s. 2. Zanaflex 4 mg t.i.d. p.r.n. 3. Requip 1 mg q.h.s. 4. Tegretol-XR 400 mg q.h.s. and 300 mg q.a.m. 5. Spiriva 1 to 2 puffs b.i.d. p.r.n. 6. Maxalt 10 mg b.i.d. 7. Minipres 2 mg q.h.s. 9. Protonix 40 mg q.a.m. 10.Invega 117 mg IM Q 28 days. 11.Zofran 8 mg q8h p.r.n. 12.Singular 10 mg q.h.s. 13.Reglan 5 mg q.h.s. 14.Namenda 5 mg p.o. b.i.d. 15.Depo-Provera 150 mg IM q90 days. 16.Hydrodiuril 25 mg q.a.m. 17.[place] 7.5 t.i.d. p.r.n. 18.Lopid 600 mg a.c. b.i.d. 19.Gabapentin 600 mg p.o. b.i.d. 20.Q-[place] 80 mcg 2 puffs b.i.d. 21.Symmetrel 100 mg q.a.m. 22.Zovirax 800 mg daily p.r.n. ALLERGIES: ZITHROMAX, FISH OIL, GEODON, PROLIXIN, HALDOL, SULFUR ANTIBIOTICS. FAMILY HISTORY: History of cancer, CVA, TIA, diabetes mellitus, myocardial infarction, CVI. SOCIAL HISTORY: History of THC. No history of smoking. REVIEW OF SYSTEMS: ENT: No diminished hearing, no diminished vision. Cardiovascular: No angina or palpitations. RESPIRATORY SYSTEM: As mentioned earlier. GI: As mentioned earlier. : No dysuria. Nervous system: No numbness, weakness. ALLERGY/IMMUNOLOGY: No asthma or hayfever. Musculoskeletal: As mentioned earlier. Hematology/Oncology: No history of anemia. Endocrine: No history of diabetes or hypothyroidism. CONSTITUTIONAL: As mentioned earlier. DERMATOLOGY: Negative. Rheumatology: Negative. Psychiatry as mentioned earlier. Musculoskeletal: As mentioned earlier. Neurology: Negative. Dermatology: Negative. Constitutional: As mentioned earlier. PHYSICAL EXAMINATION: Alert and oriented times three. Pulse 71, blood pressure 127/74, respiration 18, temp 97.2, pulse ox 97% on room air. HEENT: Conjunctivae normal. Oral mucosa moist. Neck is no jugular venous distention. No carotid bruit. No lymph node enlargement. No thyroid enlargement. Cardiovascular system: S1, S2 muffled. No S3, no S4. Respiratory: Breath sounds diminished in the bases. A few scattered rhonchi. No crackles. ABDOMEN: Soft. Mild diffuse tenderness present. No ascites. No guarding. No rigidity. No mass palpable. Bowel sounds present. Legs no edema. No swelling. Central nervous system: Moves all 4 limbs. No focal motor or sensory deficits. Lymphatics: No lymph nodes palpable in the neck and axillae. Skin no ulcer, rash, bleeding. LABS: CBC within normal limits. CO2 is 20, and total protein 6.2. ASSESSMENT: 1. Postoperative abdominal pain. 2. Chest pain. 3. Recent laparoscopic cholecystectomy. 4. History of asthma. 5. History of gastroesophageal reflux disease. 6. Hyperlipidemia. 7. Anxiety. 8. History of seizure disorder. 9. Degenerative joint disease. 10.Bipolar, anxiety, depression, PTSD. RECOMMENDATIONS AND DISCUSSION: 1. Recommend to continue current medications. 2. Symptomatic treatment. 3. I would also recommend to optimize the bronchodilator treatment. 4. Otherwise Xanax for anxiety. 5. Incentive spirometry. 6. DVT prophylaxis. 7. Pain medications. 8. The rest of the medication management including the evaluation of the GI and for the CT scan per surgery. Otherwise continue to monitor. 9. Also recommend followup close follow up with. Dr. Gustavo Chappell after discharge. Thank you Dr. Guthrie for letting us participate in the care of this patient. MMODL / IJN: [id number] / LISANDRA
[2016-12-22] MEDS: ONDANSETRON 4 MG/2 ML VIAL IVP PRN (20:21)
[2016-12-22] MEDS: HYDROmorphone 1 MG/ML 1 ML SYRINGE IVP PRN (20:25)
[2016-12-22] MEDS ORDERED: MONTELUKAST 10 MG TAB PO SCH (21:00)
[2016-12-22] MEDS ORDERED: PRAZOSIN 1 MG CAP PO SCH (21:00)
[2016-12-22] MEDS: PANTOPRAZOLE 40 MG/10 ML VIAL IVP SCH (21:31)
[2016-12-22] MEDS: HEPARIN SODIUM,PORCINE 5,000 UNIT/ML 1 ML VIAL SQ SCH (21:31)
[2016-12-23] MEDS: HYDROmorphone 1 MG/ML 1 ML SYRINGE IVP PRN ×3 (00:17→08:50)
[2016-12-23] MEDS: ONDANSETRON 4 MG/2 ML VIAL IVP PRN ×2 (04:37→08:50)
[2016-12-23 04:38] LABS: Appearance,Urine Clear (Clear); Bilirubin,Urine Negative (Negative); Glucose,Urine (UA) Negative (Negative); Ketones,Urine 2+ (Negative); Leukocyte Esterase,Urine Negative (Negative); Nitrite,Urine Negative (Negative); Protein,Urine Negative (Negative); Specific Gravity,Urine 1.019 (1.001-1.035); UA Billing (MACRO vs. MICRO) CHEM; Urobilinogen,Urine <2.0 mg/dL (<2.0)
[2016-12-23] MEDS: LEVALBUTEROL NEB (CONC) 1.25 MG/0.5 ML AMP INHALATION SCH (07:32)
[2016-12-23] MEDS: BUDESONIDE 1 MG/2 ML NEBU INHALATION SCH (07:32)
[2016-12-23] MEDS: IPRATROPIUM 0.5 MG/2.5 ML NEBU INHALATION SCH (07:32)
[2016-12-23 08:46] VITALS: BP 133/75; RESP 18; TEMP 98.2
[2016-12-23] MEDS: HEPARIN SODIUM,PORCINE 5,000 UNIT/ML 1 ML VIAL SQ SCH (08:51)
[2016-12-23] MEDS: PANTOPRAZOLE 40 MG/10 ML VIAL IVP SCH (08:51)
[2016-12-23] MEDS ORDERED: SCOPOLAMINE 1.5MG/72HR PATCH TRANSDERM STA (09:43)
[2016-12-23] MEDS: HYDROcodone/APAP 5-325MG 1 EACH TAB PO PRN (10:41)
[2016-12-23 10:53] VITALS: PULSE 64
--- NOTE | 2016-12-23 16:42 | P.PN ---
Subjective Principal diagnosis: Postoperative abdominal pain The patient is a 31-year-old female who was brought into the hospital secondary to severe postoperative abdominal pain following laparoscopic cholecystectomy. She has a personal history of chronic pain syndrome. Multiple diagnostic studies were performed demonstrating no evidence of leak or pneumoperitoneum. She had no reports of vomiting. Her pain had improved. Objective - Vital Signs Vital signs: Vital Signs Temp 98.2 F 12/23/16 08:00 Pulse 64 12/23/16 08:00 Resp 18 12/23/16 08:00 BP 133/75 12/23/16 08:00 Pulse Ox 99 12/23/16 08:00 Intake & Output 12/22/16 12/23/16 12/23/16 18:59 06:59 18:59 Intake Total 780 500 Output Total 900 Balance 780 -400 Weight 72.575 kg Intake: Oral 780 500 Output: Urine 900 Other: Voiding Method Toilet Toilet # Voids 4 2 1 - Exam GENERAL: Well developed and in no acute distress. HEENT: No sclera icterus. Extraocular movements grossly intact. Moist buccal mucosa. Head is atraumatic, normocephalic. Hears conversational speech. No nasal drainage. NECK: Supple without lymphadenopathy. No JV distention. CHEST: Non-labored respirations and equal bilateral excursions. CARDIOVASCULAR: Regular rate and rhythm. Palpable 2+ radial pulses. ABDOMEN: Soft, tender along the right upper quadrant however without peritonitis. MUSCULOSKELETAL: No clubbing, cyanosis or edema. NEUROLOGIC: No focal or lateralizing signs. PSYCH: Alert and oriented to person, place and time. SKIN: Good skin turgor. Well perfused. - Labs CBC & Chem 7: 12/22/16 15:39 12/22/16 15:39 Labs: Abnormal Lab Results - Last 24 Hours (Table) 12/23/16 Range/Units 04:30 Urine Ketones 2+ H (Negative) - Imaging and Cardiology CT scan - abdomen: report reviewed (No evidence of leak or free fluid along the hepatic fossa. No diffuse pneumoperitoneum.), image reviewed CT scan - pelvis: report reviewed, image reviewed Assessment and Plan (1) Post-op pain Status: Acute (2) Abdominal pain Status: Acute (3) Chronic pain syndrome Status: Acute Plan: 1. Her laboratory results and CT of her abdomen and pelvis was unremarkable for acute pathology. 2. Her pain medications were adjusted and her overall pain had improved. 3. Scopolamine patch was prescribed for nausea. 4. Patient may be discharged home with follow-up with Dr. Prabhakar tomorrow.
--- NOTE | 2016-12-23 16:44 | P.DS ---
Providers Date of admission: 12/22/16 00:09 Expected date of discharge: 12/23/16 Attending physician: Julia Guthrie Consults: 12/22/16 09:13 Consult Physician Routine Consulting Provider: José Antonio Dyer Consult Reason/Comments: Anxiety Do you want consulting provider notified?: Yes Primary care physician: Gustavo Antunez Ta - Discharge Diagnosis(es) (1) Post-op pain Status: Acute (2) Abdominal pain Status: Acute (3) Chronic pain syndrome Status: Acute Hospital Course: The patient is a 31-year-old female with history of chronic pain who is status post laparoscopic cholecystectomy. She reported worsening abdominal pain after discharge. She was readmitted for control of her postoperative pain. Diagnostic studies including laboratory results were consistent with no acute pathology. Prior to discharge, her pain had improved. Scopolamine patch was prescribed for her nausea. Pertinent Studies: CT of the abdomen and pelvis demonstrating no acute intra-abdominal pathology. Chest x-ray consistent with atelectasis. Patient Condition at Discharge: Good Plan - Discharge Summary New Discharge Prescriptions: New HYDROcodone/APAP 7.5-325MG [[place] 7.5-325] 1 each PO Q4H PRN #30 tab PRN Reason: Pain No Action Medroxyprogesterone Acetate [Depo-Provera] 150 mg IM Q90D rOPINIRole HCL [Requip] 1 mg PO HS Gemfibrozil [Lopid] 600 mg PO AC-BID Montelukast [Singulair] 10 mg PO HS Pentosan Polysulfate Sodium [[place]iron] 100 mg PO BID Pantoprazole Sodium [Protonix] 40 mg PO QAM Beclomethasone Dipropionate [Qvar 80 mcg/puff] 2 puff INHALATION RT-BID PRN PRN Reason: Shortness Of Breath traZODone HCL [Desyrel] 300 mg PO HS Prazosin HCl [Minipress] 2 mg PO HS Gabapentin 600 mg PO BID Paliperidone Palmitate [Invega Sustenna] 117 mg IM Q28D HYDROcodone/APAP 7.5-325MG [[place] 7.5-325] 1 tab PO TID PRN PRN Reason: Pain Hydrochlorothiazide [Hydrodiuril] 25 mg PO QAM carBAMazepine [TEGretol XR] 300 mg PO QAM Amantadine HCl [Symmetrel] 100 mg PO QAM Metoclopramide [Reglan] 5 mg PO ACHS Ondansetron [Zofran ODT] 8 mg PO Q8HR PRN PRN Reason: Nausea And/Or Vomiting tiZANidine [Zanaflex] 4 mg PO TID PRN PRN Reason: Muscle Spasm carBAMazepine [TEGretol XR] 400 mg PO HS Acyclovir [Zovirax] 800 mg PO DAILY PRN PRN Reason: Cold Sores Rizatriptan Benzoate [Maxalt] 10 mg PO BID PRN PRN Reason: Migraine Headache Memantine [Namenda] 5 mg PO BID Tiotropium [place] [Spiriva Respimat] 2 puff INHALATION RT-BID PRN PRN Reason: Shortness Of Breath Discharge Medication List Gemfibrozil [Lopid] 600 mg PO AC-BID 11/22/13 [History] Medroxyprogesterone Acetate [Depo-Provera] 150 mg IM Q90D 11/22/13 [History] rOPINIRole HCL [Requip] 1 mg PO HS 11/22/13 [History] Montelukast [Singulair] 10 mg PO HS 10/07/14 [History] Pentosan Polysulfate Sodium [Elmiron] 100 mg PO BID 02/10/15 [History] Pantoprazole Sodium [Protonix] 40 mg PO QAM 04/20/15 [History] Beclomethasone Dipropionate [Qvar 80 mcg/puff] 2 puff INHALATION RT-BID PRN 11/14 [History] Prazosin HCl [Minipress] 2 mg PO HS 01/04/16 [History] traZODone HCL [Desyrel] 300 mg PO HS 01/04/16 [History] Gabapentin 600 mg PO BID 06/14/16 [History] HYDROcodone/APAP 7.5-325MG [[place] 7.5-325] 1 tab PO TID PRN 07/20/16 [History] Hydrochlorothiazide [Hydrodiuril] 25 mg PO QAM 07/20/16 [History] Paliperidone Palmitate [Invega Sustenna] 117 mg IM Q28D 07/20/16 [History] carBAMazepine [TEGretol XR] 300 mg PO QAM 07/20/16 [History] Amantadine HCl [Symmetrel] 100 mg PO QAM 11/21/16 [History] Metoclopramide [Reglan] 5 mg PO ACHS 11/21/16 [History] Ondansetron [Zofran ODT] 8 mg PO Q8HR PRN 11/21/16 [History] Acyclovir [Zovirax] 800 mg PO DAILY PRN 11/30/16 [History] carBAMazepine [TEGretol XR] 400 mg PO HS 11/30/16 [History] tiZANidine [Zanaflex] 4 mg PO TID PRN 11/30/16 [History] Memantine [Namenda] 5 mg PO BID 12/12/16 [History] Rizatriptan Benzoate [Maxalt] 10 mg PO BID PRN 12/12/16 [History] Tiotropium [place] [Spiriva Respimat] 2 puff INHALATION RT-BID PRN 12/12/16 [ History] HYDROcodone/APAP 7.5-325MG [[place] 7.5-325] 1 each PO Q4H PRN #30 tab 12/23/16 [ Rx] Follow up Appointment(s)/Referral(s): Marilia Prabhakar MD [STAFF PHYSICIAN] - 12/24/16 (Please call to confirm time.) Gustavo Chappell MD [Primary Care Provider] - 1-2 days Patient Instructions/Handouts: *Surgery [facility] - Scopalamine Patch Instructions, Scopolamine (Absorbed through the skin), Pain Management After Surgery (DC) Activity/Diet/Wound Care/Special Instructions: Diet as tolerated Discharge Disposition: HOME SELF-CARE
== END 2016-12-23 11:09 | disposition home or self-care (01) ==
LOC: EC 23:02 → 3SUR 12-22 00:09
PROVIDERS: ADMIT Student in an Organized Health Care Education/Training Program; ATTEND Surgery Plastic and Reconstructive Surgery
DX: G89.18 Other acute postprocedural pain (principal); G89.4 Chronic pain syndrome; R10.9 Unspecified abdominal pain; Z90.49 Acquired absence of other specified parts of digestive tract; R07.9 Chest pain, unspecified; R11.0 Nausea; F11.10 Opioid abuse, uncomplicated; N30.10 Interstitial cystitis (chronic) without hematuria; F31.9 Bipolar disorder, unspecified; J45.909 Unspecified asthma, uncomplicated; G90.523 Complex regional pain syndrome I of lower limb, bilateral; K21.9 Gastro-esophageal reflux disease without esophagitis; G43.909 Migraine, unspecified, not intractable, without status migrainosus; M19.90 Unspecified osteoarthritis, unspecified site; G40.909 Epilepsy, unspecified, not intractable, without status epilepticus; E78.5 Hyperlipidemia, unspecified; G47.00 Insomnia, unspecified; F41.9 Anxiety disorder, unspecified; F44.81 Dissociative identity disorder; F43.10 Post-traumatic stress disorder, unspecified; Z79.899 Other long term (current) drug therapy; Z86.14 Personal history of Methicillin resistant Staphylococcus aureus infection; Z91.013 Allergy to seafood; Z91.048 Other nonmedicinal substance allergy status; Z88.1 Allergy status to other antibiotic agents; Z88.2 Allergy status to sulfonamides; Z88.8 Allergy status to other drugs, medicaments and biological substances; Z83.3 Family history of diabetes mellitus; Z82.49 Family history of ischemic heart disease and other diseases of the circulatory system; Z82.3 Family history of stroke; Z80.49 Family history of malignant neoplasm of other genital organs; Z91.5 Personal history of self-harm; W54.1XXA Struck by dog, initial encounter; Y92.009 Unspecified place in unspecified non-institutional (private) residence as the place of occurrence of the external cause
CPT/HCPCS: 71010; 74177; 80053; 81003; 82150; 83690; 83735; 85025; 85610; 96372; 96374; 96375; 96376; 99284

== ENCOUNTER 2017-01-03 20:54 | Emergency (ER) | payer MEDICARE, OTHER ==
[2017-01-03 21:22] VITALS: RESP 16; TEMP 99.5
[2017-01-03] MEDS ORDERED: DEXAMETHASONE SOD PHOSPHATE 10 MG/ML 1 ML VIAL IV STA (21:43)
[2017-01-03] MEDS ORDERED: SODIUM CHLORIDE 0.9% 2,000 ML IV ONE (21:43)
[2017-01-03] MEDS ORDERED: KETOROLAC 30 MG/ML 1 ML VIAL IVP STA (21:43)
[2017-01-03] MEDS ORDERED: METOCLOPRAMIDE 5 MG/ML 2 ML VIAL IVP STA (21:43)
[2017-01-03] MEDS ORDERED: diphenhydrAMINE 50 MG/ML 1 ML VIAL IVP STA (21:43)
--- NOTE | 2017-01-03 22:02 | ED ---
Headache HPI - General Chief Complaint: Headache Stated Complaint: Headache Time Seen by Provider: 01/03/17 21:29 Mode of arrival: ambulatory Limitations: no limitations - History of Present Illness Initial Comments: Patient is a 31-year-old female presents with a chief complaint of headache. This headache has been going on for 2 days. The patient has a significant past medical history of migraine headaches, she states this is very similar. This is complicated by nausea, and the patient recently had an abdominal surgery and states that throwing up makes her abdomen hurt worse. Patient does not recognize any inciting incidences. She is sensitive to light and sound, there are no alleviating factors. Timing is constant. - Related Data Home Medications Medication Instructions Recorded Confirmed Gemfibrozil [Lopid] 600 mg PO AC-BID 11/22/13 01/03/17 Medroxyprogesterone Acetate 150 mg IM Q90D 11/22/13 01/03/17 [Depo-Provera] rOPINIRole HCL [Requip] 1 mg PO HS 11/22/13 01/03/17 Montelukast [Singulair] 10 mg PO HS 10/07/14 01/03/17 Pentosan Polysulfate Sodium 100 mg PO BID 02/10/15 01/03/17 [Elmiron] Pantoprazole Sodium [Protonix] 40 mg PO QAM 04/20/15 01/03/17 Beclomethasone Dipropionate [Qvar 2 puff INHALATION RT-BID PRN 06/07/15 01/03/17 80 mcg/puff] Prazosin HCl [Minipress] 2 mg PO HS 01/04/16 01/03/17 traZODone HCL [Desyrel] 300 mg PO HS 01/04/16 01/03/17 Gabapentin 600 mg PO BID 06/14/16 01/03/17 HYDROcodone/APAP 7.5-325MG [[place] 1 tab PO TID PRN 07/20/16 01/03/17 7.5-325] Hydrochlorothiazide [Hydrodiuril] 25 mg PO QAM 07/20/16 01/03/17 Paliperidone Palmitate [Invega 117 mg IM Q28D 07/20/16 12/21/16 Sustenna] carBAMazepine [TEGretol XR] 200 mg PO HS 07/20/16 01/03/17 Amantadine HCl [Symmetrel] 100 mg PO QAM 11/21/16 01/03/17 Metoclopramide [Reglan] 5 mg PO ACHS 11/21/16 01/03/17 Ondansetron [Zofran ODT] 8 mg PO Q8HR PRN 11/21/16 01/03/17 Acyclovir [Zovirax] 800 mg PO DAILY PRN 11/30/16 01/03/17 carBAMazepine [TEGretol XR] 100 mg PO QAM 11/30/16 01/03/17 tiZANidine [Zanaflex] 4 mg PO TID PRN 11/30/16 01/03/17 Memantine [Namenda] 5 mg PO BID 12/12/16 01/03/17 Rizatriptan Benzoate [Maxalt] 10 mg PO BID PRN 12/12/16 01/03/17 Tiotropium [place] [Spiriva 2 puff INHALATION RT-BID PRN 12/12/16 01/03/17 Respimat] Ibuprofen [Motrin] 800 mg PO TID PRN 01/03/17 01/03/17 SUMAtriptan SUCCINATE [Imitrex] 50 mg PO DAILY PRN 01/03/17 01/03/17 carBAMazepine [TEGretol XR] 200 mg PO BID 01/03/17 01/03/17 Allergies Allergy/AdvReac Type Severity Reaction Status Date / Time azithromycin Allergy Rash/Hives Verified 01/03/17 21:34 [From Zithromax Z-Mehrdad] cimetidine [From Tagamet] Allergy Rash/Hives Verified 01/03/17 21:34 ether [Ether] Allergy Anaphylaxis Verified 01/03/17 21:34 Fish Containing Products Allergy Anaphylaxis Verified 01/03/17 21:34 [Fish] ketorolac tromethamine Allergy Rash/Hives Verified 01/03/17 21:34 [From Toradol] ziprasidone HCl [From Geodon] Allergy Extrapyramidal Verified 01/03/17 21:34 Symptoms fluphenazine HCl AdvReac Extrapyramidal Verified 01/03/17 21:34 [From Prolixin] Symptoms haloperidol [From Haldol] AdvReac Extrapyramidal Verified 01/03/17 21:34 Symptoms Sulfa (Sulfonamide AdvReac Nausea & Verified 01/03/17 21:34 Antibiotics) Vomiting Review of Systems ROS Statement: Those systems with pertinent positive or pertinent negative responses have been documented in the HPI. ROS Other: All systems not noted in ROS Statement are negative. Constitutional: Denies: fever Eyes: Denies: vision change ENT: Denies: congestion Respiratory: Denies: cough Cardiovascular: Denies: chest pain Endocrine: Denies: fatigue Gastrointestinal: Reports: abdominal pain Genitourinary: Denies: dysuria Skin: Denies: rash Neurological: Reports: headache Past Medical History Past Medical History: Asthma, GERD/Reflux, Hyperlipidemia, Musculoskeletal Disorder, Neurologic Disorder, Osteoarthritis (OA), Seizure Disorder Additional Past Medical History / Comment(s): RSD-DERIC FEET, INTERSTITIAL CYSTITIS, BRONCHITIS, HEMORRHOIDS,MIGRAINES, INSOMNIA. VERTIGO, last seizure 4 years ago History of Any Multi-Drug Resistant Organisms: MRSA Date of last positivie culture/infection: 04/20/15 MDRO Source:: Left Axilla Past Surgical History: Adenoidectomy, Back Surgery, Cholecystectomy, Orthopedic Surgery, Tonsillectomy Additional Past Surgical History / Comment(s): bilateral foot surgery d/t rsd, numerous pain clinic procedures, nerve stimulator in back to tx RSD placed in Nov 11 2015 Past Anesthesia/Blood Transfusion Reactions: Previous Problems w/ Anesthesia Additional Past Anesthesia/Blood Transfusion Reaction / Comment(s): Pt recieved blood when she was 2 yrs old after tonsillectomy. WHEN BABY HEART STOPPED TWICE- PT STATED SHE WAS ALLERGIC TO ETHER. Past Psychological History: Anxiety, Bipolar, Depression, PTSD Smoking Status: Never smoker Past Alcohol Use History: None Reported Past Drug Use History: None Reported - Past Family History Father History Unknown: Yes Mother Family Medical History: Cancer, CVA/TIA, Diabetes Mellitus, Myocardial Infarction ([place]) Additional Family Medical History / Comment(s): Mother has had 5 CVAs, 3 MIs and UTERINE CANCER General Exam Limitations: no limitations General appearance: alert, in no apparent distress Head exam: Present: atraumatic, normocephalic Eye exam: Present: normal appearance, PERRL ENT exam: Present: mucous membranes moist Neck exam: Present: normal inspection Respiratory exam: Present: normal lung sounds bilaterally Cardiovascular Exam: Present: regular rate, normal rhythm, normal heart sounds GI/Abdominal exam: Present: soft. Absent: distended, tenderness Rectal exam: Present: deferred Neurological exam: Present: alert, oriented X3, CN II-XII intact. Absent: motor sensory deficit Psychiatric exam: Present: normal affect, normal mood Skin exam: Present: warm, dry, intact Course Vital Signs 01/03/17 21:18 Temperature 99.5 F Pulse Rate 98 Respiratory 16 Rate Blood Pressure 161/97 O2 Sat by Pulse 97 Oximetry Medical Decision Making - Medical Decision Making Patient presents for migraine headache. Patient will be given a headache cocktail, and reexamined. Patient is neurologically intact. Vital signs are stable, patient is in no acute distress. 11:15 PM On reevaluation, patient states that her headache is gone and she would like to be discharged. Vital signs remain stable, patient was instructed to follow-up with primary care, or return to the emergency department if her symptoms worsen or change. - Lab Data Lab Results 01/03/17 Range/Units 22:20 HCG, Qual Not Detected Disposition Clinical Impression: Migraine Disposition: HOME SELF-CARE Condition: Good Instructions: Acute Headache (ED) Referrals: Gustavo Chappell MD [Primary Care Provider] - 1-2 days
[2017-01-03 23:28] VITALS: BP 128/70; PULSE 68
== END 2017-01-03 23:27 | disposition home or self-care (01) ==
LOC: EC 20:54
DX: G43.909 Migraine, unspecified, not intractable, without status migrainosus (principal); J45.909 Unspecified asthma, uncomplicated; G40.909 Epilepsy, unspecified, not intractable, without status epilepticus; K21.9 Gastro-esophageal reflux disease without esophagitis; E78.5 Hyperlipidemia, unspecified; F31.9 Bipolar disorder, unspecified; Z86.14 Personal history of Methicillin resistant Staphylococcus aureus infection; Z91.013 Allergy to seafood; Z88.1 Allergy status to other antibiotic agents; Z88.6 Allergy status to analgesic agent; Z88.2 Allergy status to sulfonamides; Z88.8 Allergy status to other drugs, medicaments and biological substances; Z79.899 Other long term (current) drug therapy
CPT/HCPCS: 99283 ×2; 96374 ×2; 96375 ×4; 96361 ×2; 36415; 84703; J1200; J1100; J2765; J1885

== ENCOUNTER 2017-01-07 21:13 | Emergency (ER) | payer MEDICARE, OTHER ==
[2017-01-07 21:31] VITALS: BP 132/79; PULSE 98; RESP 16; TEMP 98.9
--- NOTE | 2017-01-07 22:30 | ED ---
Upper Extremity HPI - General Chief Complaint: Extremity Injury, Upper Stated Complaint: R wrist injury Time Seen by Provider: 01/07/17 21:43 Source: patient Mode of arrival: ambulatory Limitations: no limitations - History of Present Illness Initial Comments: 31-year-old female patient presented to emergency department today for evaluation of right wrist pain. Patient states that she did have a fall on Saturday injuring the wrist. She states that she tripped over some debris in her yard. She states that she has had pain in the wrist radiating up her forearm since then. She states that she did have a fracture to this wrist in September and thinks she may have reinjured it. She denies hitting her head or losing consciousness during the fall. She states she does have some mild right knee and hip pain however she is able to ambulate without any difficulty. She denies any numbness or tingling to her hands. She states she does have full range of motion of the right elbow and shoulder without pain or limitation. Patient denies any headache, neck pain, back pain, chest pain, shortness of breath, dizziness, weakness, abdominal pain, nausea, vomiting, or difficulties with bowel movements or urination. - Related Data Home Medications Medication Instructions Recorded Confirmed Gemfibrozil [Lopid] 600 mg PO AC-BID 11/22/13 01/07/17 Medroxyprogesterone Acetate 150 mg IM Q90D 11/22/13 01/07/17 [Depo-Provera] rOPINIRole HCL [Requip] 1 mg PO HS 11/22/13 01/07/17 Montelukast [Singulair] 10 mg PO HS 10/07/14 01/07/17 Pentosan Polysulfate Sodium 100 mg PO BID 02/10/15 01/07/17 [Elmiron] Pantoprazole Sodium [Protonix] 40 mg PO QAM 04/20/15 01/07/17 Beclomethasone Dipropionate [Qvar 2 puff INHALATION RT-BID PRN 06/07/15 01/07/17 80 mcg/puff] Prazosin HCl [Minipress] 2 mg PO HS 01/04/16 01/07/17 traZODone HCL [Desyrel] 300 mg PO HS 01/04/16 01/07/17 Gabapentin 600 mg PO BID 06/14/16 01/07/17 HYDROcodone/APAP 7.5-325MG [[place] 1 tab PO TID PRN 07/20/16 01/07/17 7.5-325] Hydrochlorothiazide [Hydrodiuril] 25 mg PO QAM 07/20/16 01/07/17 Paliperidone Palmitate [Invega 117 mg IM Q28D 07/20/16 01/07/17 Sustenna] carBAMazepine [TEGretol XR] 200 mg PO HS 07/20/16 01/07/17 Amantadine HCl [Symmetrel] 100 mg PO QAM 11/21/16 01/07/17 Metoclopramide [Reglan] 5 mg PO ACHS 11/21/16 01/07/17 Ondansetron [Zofran ODT] 8 mg PO Q8HR PRN 11/21/16 01/07/17 Acyclovir [Zovirax] 800 mg PO DAILY PRN 11/30/16 01/07/17 carBAMazepine [TEGretol XR] 100 mg PO QAM 11/30/16 01/07/17 tiZANidine [Zanaflex] 4 mg PO TID PRN 11/30/16 01/07/17 Memantine [Namenda] 5 mg PO BID 12/12/16 01/07/17 Rizatriptan Benzoate [Maxalt] 10 mg PO BID PRN 12/12/16 01/07/17 Tiotropium [place] [Spiriva 2 puff INHALATION RT-BID PRN 12/12/16 01/07/17 Respimat] Ibuprofen [Motrin] 800 mg PO TID PRN 01/03/17 01/07/17 SUMAtriptan SUCCINATE [Imitrex] 50 mg PO DAILY PRN 01/03/17 01/07/17 carBAMazepine [TEGretol XR] 200 mg PO BID 01/03/17 01/07/17 Allergies Allergy/AdvReac Type Severity Reaction Status Date / Time azithromycin Allergy Rash/Hives Verified 01/07/17 22:14 [From Zithromax Z-Mehrdad] cimetidine [From Tagamet] Allergy Rash/Hives Verified 01/07/17 22:14 ether [Ether] Allergy Anaphylaxis Verified 01/07/17 22:14 Fish Containing Products Allergy Anaphylaxis Verified 01/07/17 22:14 [Fish] ketorolac tromethamine Allergy Rash/Hives Verified 01/07/17 22:14 [From Toradol] ziprasidone HCl [From Geodon] Allergy Extrapyramidal Verified 01/07/17 22:14 Symptoms fluphenazine HCl AdvReac Extrapyramidal Verified 01/07/17 22:14 [From Prolixin] Symptoms haloperidol [From Haldol] AdvReac Extrapyramidal Verified 01/07/17 22:14 Symptoms Sulfa (Sulfonamide AdvReac Nausea & Verified 01/07/17 22:14 Antibiotics) Vomiting Review of Systems ROS Statement: Those systems with pertinent positive or pertinent negative responses have been documented in the HPI. ROS Other: All systems not noted in ROS Statement are negative. Past Medical History Past Medical History: Asthma, GERD/Reflux, Hyperlipidemia, Musculoskeletal Disorder, Neurologic Disorder, Osteoarthritis (OA), Seizure Disorder Additional Past Medical History / Comment(s): RSD-DERIC FEET, INTERSTITIAL CYSTITIS, BRONCHITIS, HEMORRHOIDS,MIGRAINES, INSOMNIA. VERTIGO, last seizure 4 years ago History of Any Multi-Drug Resistant Organisms: MRSA Date of last positivie culture/infection: 04/20/15 MDRO Source:: Left Axilla Past Surgical History: Adenoidectomy, Back Surgery, Cholecystectomy, Orthopedic Surgery, Tonsillectomy Additional Past Surgical History / Comment(s): bilateral foot surgery d/t rsd, numerous pain clinic procedures, nerve stimulator in back to tx RSD placed in Nov 11 2015 Past Anesthesia/Blood Transfusion Reactions: Previous Problems w/ Anesthesia Additional Past Anesthesia/Blood Transfusion Reaction / Comment(s): Pt recieved blood when she was 2 yrs old after tonsillectomy. WHEN BABY HEART STOPPED TWICE- PT STATED SHE WAS ALLERGIC TO ETHER. Past Psychological History: Anxiety, Bipolar, Depression, PTSD Smoking Status: Never smoker Past Alcohol Use History: None Reported Past Drug Use History: None Reported - Past Family History Father History Unknown: Yes Mother Family Medical History: Cancer, CVA/TIA, Diabetes Mellitus, Myocardial Infarction ([place]) Additional Family Medical History / Comment(s): Mother has had 5 CVAs, 3 MIs and UTERINE CANCER General Exam Limitations: no limitations General appearance: alert, in no apparent distress, other (This is a well- developed, well-nourished adult female patient in no acute distress. Vital signs upon presentation her temperature 98.9F, pulse 98, respirations 16, blood pressure 132/79, pulse ox 98% on room air.) Head exam: Present: atraumatic, normocephalic, normal inspection Eye exam: Present: normal appearance, PERRL, EOMI. Absent: scleral icterus, conjunctival injection, periorbital swelling ENT exam: Present: normal exam, normal oropharynx, mucous membranes moist, TM's normal bilaterally Neck exam: Present: normal inspection, full ROM, other (Nontender, no step-off, no deformity to firm midline palpation of the posterior cervical spine. Full range of motion without pain or limitation.). Absent: tenderness, meningismus, lymphadenopathy Respiratory exam: Present: normal lung sounds bilaterally. Absent: respiratory distress, wheezes, rales, rhonchi, stridor Cardiovascular Exam: Present: regular rate, normal rhythm, normal heart sounds. Absent: systolic murmur, diastolic murmur, rubs, gallop, clicks Extremities exam: Present: normal inspection, full ROM, tenderness (Tenderness over the ulnar aspect of the right wrist. ), normal capillary refill, other ( Is mild swelling noted over the ulnar aspect of the right wrist. Skin is pink, warm, and dry. Cap refill less than 3 seconds. There is limited range of motion to the right wrist due to increased pain with movement. Radial pulses are 2+ and equal bilaterally. Hand strength is 5/5. Patient does have full range of motion without pain or limitation to the right elbow and the right shoulder.). Absent: pedal edema, joint swelling, calf tenderness Back exam: Present: normal inspection, other (Nontender, no step-off, no deformity to firm midline palpation of the thoracic and lumbar vertebrae. Full range of motion without pain or limitation.). Absent: tenderness, vertebral tenderness Neurological exam: Present: alert, oriented X3, CN II-XII intact Psychiatric exam: Present: normal affect, normal mood Skin exam: Present: warm, dry, intact, normal color. Absent: rash Course Vital Signs 01/07/17 21:27 Temperature 98.9 F Pulse Rate 98 Respiratory 16 Rate Blood Pressure 132/79 O2 Sat by Pulse 98 Oximetry Medical Decision Making - Medical Decision Making 31-year-old female patient presented for evaluation of right wrist pain. Patient was planning of pain over the ulnar aspect of the right wrist. She denied any anatomic snuffbox tenderness. X-ray was negative for any acute fracture or dislocation. Patient was crying in pain despite use of [place] and ibuprofen at home. Patient was placed in a volar OCL splint. She is instructed to follow-up with orthopedics in 7-10 days if symptoms persist. She is instructed to rest, ice, and elevate the wrist. She is instructed to take her home pain medication as directed. She is instructed to return here immediately for any new, worsening, or concerning symptoms. She verbalizes understanding and agrees with this plan. - Radiology Data Radiology results: report reviewed, image reviewed 4 views of the right wrist shows no fracture nor dislocation. Joint spaces are normal. There are no pathologic calcifications. Impression by Dr. Vernon shows negative right wrist exam. Disposition Clinical Impression: Wrist pain, acute Disposition: HOME SELF-CARE Condition: Good Instructions: Wrist Injury (ED) Additional Instructions: Follow-up with orthopedics for recheck in 1-2 days. Return here immediately for any new, worsening, or concerning symptoms. Referrals: Gustavo Chappell MD [Primary Care Provider] - 1-2 days Van Bruner MD [STAFF PHYSICIAN] - 1-2 days Time of Disposition: 22:41
--- NOTE | 2017-01-07 22:35 | XR ---
EXAMINATION TYPE: XR wrist complete RT DATE OF EXAM: 01/07/2017 COMPARISON: NONE HISTORY: Wrist pain TECHNIQUE: 4 views FINDINGS: I see no fracture nor dislocation. Joint spaces are normal. There are no pathologic calcifi cations. IMPRESSION: Negative right wrist exam
== END 2017-01-07 22:54 | disposition home or self-care (01) ==
LOC: EC 21:13
DX: M25.531 Pain in right wrist (principal); J45.909 Unspecified asthma, uncomplicated; E78.5 Hyperlipidemia, unspecified; K21.9 Gastro-esophageal reflux disease without esophagitis; F31.9 Bipolar disorder, unspecified; G40.909 Epilepsy, unspecified, not intractable, without status epilepticus; Z86.14 Personal history of Methicillin resistant Staphylococcus aureus infection; Z98.890 Other specified postprocedural states; Z88.1 Allergy status to other antibiotic agents; Z88.6 Allergy status to analgesic agent; Z88.8 Allergy status to other drugs, medicaments and biological substances; Z88.2 Allergy status to sulfonamides; Z91.013 Allergy to seafood; Z79.899 Other long term (current) drug therapy; W01.0XXA Fall on same level from slipping, tripping and stumbling without subsequent striking against object, initial encounter; Y92.096 Garden or yard of other non-institutional residence as the place of occurrence of the external cause
CPT/HCPCS: 29125; 99283

== ENCOUNTER 2017-01-17 19:48 | Emergency (ER) | payer MEDICARE, OTHER ==
--- NOTE | 2017-01-17 20:14 | ED ---
General Adult HPI - General Chief complaint: Extremity Problem,Nontraumatic Stated complaint: Feet Swollen Source: patient, family, RN notes reviewed, old records reviewed Mode of arrival: ambulatory Limitations: no limitations - History of Present Illness Initial comments: Chief complaint history of present illness this is a 31-year-old female with chronic pain symptoms. The patient reports that she fell last week breaking her wrist. She also has a nerve stimulator implanted in the right buttock area. She states since that time she thinks the wires coming out of the stimulator may been affected. She states when she turns her stimulator up to help decrease the RSD pain to her feet she has spasms in her legs. When she turns it down to stop the spasms her feet hurt. The patient has seen her neurologist. - Related Data Home Medications Medication Instructions Recorded Confirmed Gemfibrozil [Lopid] 600 mg PO AC-BID 11/22/13 01/17/17 Medroxyprogesterone Acetate 150 mg IM Q90D 11/22/13 01/17/17 [Depo-Provera] rOPINIRole HCL [Requip] 1 mg PO HS 11/22/13 01/17/17 Montelukast [Singulair] 10 mg PO HS 10/07/14 01/17/17 Pentosan Polysulfate Sodium 100 mg PO BID 02/10/15 01/17/17 [Elmiron] Pantoprazole Sodium [Protonix] 40 mg PO QAM 04/20/15 01/17/17 Beclomethasone Dipropionate [Qvar 2 puff INHALATION RT-BID PRN 06/07/15 01/17/17 80 mcg/puff] Prazosin HCl [Minipress] 2 mg PO HS 01/04/16 01/17/17 traZODone HCL [Desyrel] 300 mg PO HS 01/04/16 01/17/17 Gabapentin 600 mg PO BID 06/14/16 01/17/17 HYDROcodone/APAP 7.5-325MG [[place] 1 tab PO TID PRN 07/20/16 01/17/17 7.5-325] Hydrochlorothiazide [Hydrodiuril] 25 mg PO QAM 07/20/16 01/17/17 Paliperidone Palmitate [Invega 117 mg IM Q28D 07/20/16 01/17/17 Sustenna] carBAMazepine [TEGretol XR] 200 mg PO HS 07/20/16 01/17/17 Amantadine HCl [Symmetrel] 100 mg PO QAM 11/21/16 01/17/17 Metoclopramide [Reglan] 5 mg PO ACHS 11/21/16 01/17/17 Ondansetron [Zofran ODT] 8 mg PO Q8HR PRN 11/21/16 01/17/17 Acyclovir [Zovirax] 800 mg PO DAILY PRN 11/30/16 01/17/17 carBAMazepine [TEGretol XR] 100 mg PO QAM 11/30/16 01/17/17 tiZANidine [Zanaflex] 4 mg PO TID PRN 11/30/16 01/17/17 Memantine [Namenda] 5 mg PO BID 12/12/16 01/17/17 Rizatriptan Benzoate [Maxalt] 10 mg PO BID PRN 12/12/16 01/17/17 Tiotropium [place] [Spiriva 2 puff INHALATION RT-BID PRN 12/12/16 01/17/17 Respimat] Ibuprofen [Motrin] 800 mg PO TID PRN 01/03/17 01/17/17 SUMAtriptan SUCCINATE [Imitrex] 50 mg PO DAILY PRN 01/03/17 01/17/17 carBAMazepine [TEGretol XR] 200 mg PO BID 01/03/17 01/17/17 Allergies Allergy/AdvReac Type Severity Reaction Status Date / Time azithromycin Allergy Rash/Hives Verified 01/17/17 20:06 [From Zithromax Z-Mehrdad] cimetidine [From Tagamet] Allergy Rash/Hives Verified 01/17/17 20:06 ether [Ether] Allergy Anaphylaxis Verified 01/17/17 20:06 Fish Containing Products Allergy Anaphylaxis Verified 01/17/17 20:06 [Fish] ketorolac tromethamine Allergy Rash/Hives Verified 01/17/17 20:06 [From Toradol] ziprasidone HCl [From Geodon] Allergy Extrapyramidal Verified 01/17/17 20:06 Symptoms fluphenazine HCl AdvReac Extrapyramidal Verified 01/17/17 20:06 [From Prolixin] Symptoms haloperidol [From Haldol] AdvReac Extrapyramidal Verified 01/17/17 20:06 Symptoms Sulfa (Sulfonamide AdvReac Nausea & Verified 01/17/17 20:06 Antibiotics) Vomiting Review of Systems ROS Statement: Those systems with pertinent positive or pertinent negative responses have been documented in the HPI. Review of systems patient has chronic pain. Past medical problems chronic pain. Surgeries adenoids back cholecystectomy tonsils and bilateral foot surgery and nerve stimulator for RSD. Family history noncontributory ALLERGIES eggs azithromycin, cimetidine, ether, fish containing products, Toradol, and ziprasidone. ROS Other: All systems not noted in ROS Statement are negative. Past Medical History Past Medical History: Asthma, GERD/Reflux, Hyperlipidemia, Musculoskeletal Disorder, Neurologic Disorder, Osteoarthritis (OA), Seizure Disorder Additional Past Medical History / Comment(s): RSD-DERIC FEET, INTERSTITIAL CYSTITIS, BRONCHITIS, HEMORRHOIDS,MIGRAINES, INSOMNIA. VERTIGO, last seizure 4 years ago History of Any Multi-Drug Resistant Organisms: MRSA Date of last positivie culture/infection: 04/20/15 MDRO Source:: Left Axilla Past Surgical History: Adenoidectomy, Back Surgery, Cholecystectomy, Orthopedic Surgery, Tonsillectomy Additional Past Surgical History / Comment(s): bilateral foot surgery d/t rsd, numerous pain clinic procedures, nerve stimulator in back to tx RSD placed in Nov 11 2015 Past Anesthesia/Blood Transfusion Reactions: Previous Problems w/ Anesthesia Additional Past Anesthesia/Blood Transfusion Reaction / Comment(s): Pt recieved blood when she was 2 yrs old after tonsillectomy. WHEN BABY HEART STOPPED TWICE- PT STATED SHE WAS ALLERGIC TO ETHER. Past Psychological History: Anxiety, Bipolar, Depression, PTSD Smoking Status: Never smoker Past Alcohol Use History: None Reported Past Drug Use History: None Reported - Past Family History Father History Unknown: Yes Mother Family Medical History: Cancer, CVA/TIA, Diabetes Mellitus, Myocardial Infarction ([place]) Additional Family Medical History / Comment(s): Mother has had 5 CVAs, 3 MIs and UTERINE CANCER General Exam - General Exam Comments Initial Comments: Physical exam; vital signs are temperature 99.4 pulse 105 respiratory rate 16 blood pressure 130/80 pulse ox 95% room air Patient's here with complaints of discomfort to her feet which she thinks may be a malfunctioning nerve stimulator which is implanted subcutaneous area of her right buttock. She thinks neuro wires that go into the leg area to provide stimulation to prevent pain from RSD to her feet. She reports having fallen a week ago and since then she thinks she's been having some malfunction. Tomorrow she'll be trying to see her neurologist. Patient denies any other problems no headache chest pain shortness breath GI/ problems this time. No new neuro deficits. Patient denies any other problems no shortness of breath again no GI/ problems. Limitations: no limitations Course Vital Signs 01/17/17 19:50 Temperature 99.4 F Pulse Rate 16 L Respiratory 105 H Rate Blood Pressure 130/80 O2 Sat by Pulse 95 Oximetry Medical Decision Making - Medical Decision Making Vital decision making the patient had x-rays of the area in question. And the radiologist's final impression is; unchanged radiographic positioning of the nerve stimulator leads in comparison to prior exam of 09-12-2016. Nonobstructive bowel gas pattern. Interval cholecystectomy. As read by Dr. Monsalve She was given Dilaudid 0.5 IM she has [place] at home. Told to call follow up with her neurologist tomorrow concerning her nerve stimulator. Disposition Clinical Impression: Chronic pain of lower extremity, bilateral Disposition: HOME SELF-CARE Condition: Stable Instructions: Chronic Pain (ED) Additional Instructions: Continue with home pain medications. Follow-up with your neurologist tomorrow for reevaluation concerning nerve stimulator. Referrals: Gustavo Chappell MD [Primary Care Provider] - 1-2 days Time of Disposition: 20:43
--- NOTE | 2017-01-17 20:30 | XR ---
EXAMINATION TYPE: XR abdomen 2V DATE OF EXAM: 01/17/2017 8:22 PM CLINICAL HISTORY: Fall. Nerve stimulator line placement. TECHNIQUE: Single supine KUB image of the abdomen is obtained. COMPARISON: None. FINDINGS: L4-L5 nerve root stimulators appear in similar locations to the prior exam of 09/12/2016. Di stal aspect of the nerve stimulator device also appears in unchanged location spanning the T10 and T1 1 vertebral bodies. Interval cholecystectomy has been performed. Bowel gas pattern is nonobstructive. Lung bases are clear. IMPRESSION: Unchanged radiographic positioning of the nerve stimulator leads in comparison the prior exam of 09/12/2016. Nonobstructive bowel gas pattern. Interval cholecystectomy.
[2017-01-17] MEDS ORDERED: HYDROmorphone 1 MG/ML 1 ML SYRINGE IM STA (20:49)
[2017-01-17 21:12] VITALS: BP 140/87; PULSE 100; RESP 20; TEMP 98
== END 2017-01-17 21:11 | disposition home or self-care (01) ==
LOC: EC 19:48
DX: M79.605 Pain in left leg (principal); M79.604 Pain in right leg; M79.89 Other specified soft tissue disorders; G89.29 Other chronic pain; G90.523 Complex regional pain syndrome I of lower limb, bilateral; J45.909 Unspecified asthma, uncomplicated; K21.9 Gastro-esophageal reflux disease without esophagitis; E78.5 Hyperlipidemia, unspecified; G40.909 Epilepsy, unspecified, not intractable, without status epilepticus; F41.9 Anxiety disorder, unspecified; F32.9 Major depressive disorder, single episode, unspecified; F43.10 Post-traumatic stress disorder, unspecified; Z86.14 Personal history of Methicillin resistant Staphylococcus aureus infection; Z98.890 Other specified postprocedural states; Z88.2 Allergy status to sulfonamides; Z88.6 Allergy status to analgesic agent; Z91.013 Allergy to seafood; Z88.8 Allergy status to other drugs, medicaments and biological substances; Z88.1 Allergy status to other antibiotic agents; Z79.899 Other long term (current) drug therapy; Z79.3 Long term (current) use of hormonal contraceptives
CPT/HCPCS: 99284 ×2; 96372 ×2; 74020; J1170

== ENCOUNTER 2017-02-09 14:52 | Emergency (ER) | payer MEDICARE, OTHER ==
[2017-02-09 14:58] VITALS: BP 130/67; PULSE 109; RESP 18; TEMP 99
[2017-02-09] MEDS ORDERED: KETOROLAC 60 MG/2 ML VIAL IM STA (15:05)
--- NOTE | 2017-02-09 15:08 | ED ---
General Adult HPI - General Chief complaint: Extremity Problem,Nontraumatic Stated complaint: Foot Pain Time Seen by Provider: 02/09/17 14:55 Source: patient, RN notes reviewed Mode of arrival: wheelchair Limitations: no limitations - History of Present Illness Initial comments: This a 31-year-old female has chronic foot pain she says is RSD. Patient states she's her feet are in a lot more pain today she states that she went to see her neurologist he upturned Margie and her Neurontin. Patient states these increase the medication has not helped her. Patient denies any trauma to the feet. Patient denies any swelling or redness. Patient states this same pain she always has except a little bit worse today. Patient is requesting at [facility] shot - Related Data Home Medications Medication Instructions Recorded Confirmed Gemfibrozil [Lopid] 600 mg PO AC-BID 11/22/13 01/17/17 Medroxyprogesterone Acetate 150 mg IM Q90D 11/22/13 01/17/17 [Depo-Provera] rOPINIRole HCL [Requip] 1 mg PO HS 11/22/13 01/17/17 Montelukast [Singulair] 10 mg PO HS 10/07/14 01/17/17 Pentosan Polysulfate Sodium 100 mg PO BID 02/10/15 01/17/17 [Elmiron] Pantoprazole Sodium [Protonix] 40 mg PO QAM 04/20/15 01/17/17 Beclomethasone Dipropionate [Qvar 2 puff INHALATION RT-BID PRN 06/07/15 01/17/17 80 mcg/puff] Prazosin HCl [Minipress] 2 mg PO HS 01/04/16 01/17/17 traZODone HCL [Desyrel] 300 mg PO HS 01/04/16 01/17/17 Gabapentin 600 mg PO BID 06/14/16 01/17/17 HYDROcodone/APAP 7.5-325MG [[place] 1 tab PO TID PRN 07/20/16 01/17/17 7.5-325] Hydrochlorothiazide [Hydrodiuril] 25 mg PO QAM 07/20/16 01/17/17 Paliperidone Palmitate [Invega 117 mg IM Q28D 07/20/16 01/17/17 Sustenna] carBAMazepine [TEGretol XR] 200 mg PO HS 07/20/16 01/17/17 Amantadine HCl [Symmetrel] 100 mg PO QAM 11/21/16 01/17/17 Metoclopramide [Reglan] 5 mg PO ACHS 11/21/16 01/17/17 Ondansetron [Zofran ODT] 8 mg PO Q8HR PRN 11/21/16 01/17/17 Acyclovir [Zovirax] 800 mg PO DAILY PRN 11/30/16 01/17/17 carBAMazepine [TEGretol XR] 100 mg PO QAM 11/30/16 01/17/17 tiZANidine [Zanaflex] 4 mg PO TID PRN 11/30/16 01/17/17 Memantine [Namenda] 5 mg PO BID 12/12/16 01/17/17 Rizatriptan Benzoate [Maxalt] 10 mg PO BID PRN 12/12/16 01/17/17 Tiotropium [place] [Spiriva 2 puff INHALATION RT-BID PRN 12/12/16 01/17/17 Respimat] Ibuprofen [Motrin] 800 mg PO TID PRN 01/03/17 01/17/17 SUMAtriptan SUCCINATE [Imitrex] 50 mg PO DAILY PRN 01/03/17 01/17/17 carBAMazepine [TEGretol XR] 200 mg PO BID 01/03/17 01/17/17 Allergies Allergy/AdvReac Type Severity Reaction Status Date / Time azithromycin Allergy Rash/Hives Verified 02/09/17 14:58 [From Zithromax Z-Mehrdad] cimetidine [From Tagamet] Allergy Rash/Hives Verified 02/09/17 14:58 ether [Ether] Allergy Anaphylaxis Verified 02/09/17 14:58 Fish Containing Products Allergy Anaphylaxis Verified 02/09/17 14:58 [Fish] ketorolac tromethamine Allergy Rash/Hives Verified 02/09/17 14:58 [From Toradol] ziprasidone HCl [From Geodon] Allergy Extrapyramidal Verified 02/09/17 14:58 Symptoms fluphenazine HCl AdvReac Extrapyramidal Verified 02/09/17 14:58 [From Prolixin] Symptoms haloperidol [From Haldol] AdvReac Extrapyramidal Verified 02/09/17 14:58 Symptoms Sulfa (Sulfonamide AdvReac Nausea & Verified 02/09/17 14:58 Antibiotics) Vomiting Review of Systems ROS Statement: Those systems with pertinent positive or pertinent negative responses have been documented in the HPI. ROS Other: All systems not noted in ROS Statement are negative. Past Medical History Past Medical History: Asthma, GERD/Reflux, Hyperlipidemia, Musculoskeletal Disorder, Neurologic Disorder, Osteoarthritis (OA), Seizure Disorder Additional Past Medical History / Comment(s): RSD-DERIC FEET, INTERSTITIAL CYSTITIS, BRONCHITIS, HEMORRHOIDS,MIGRAINES, INSOMNIA. VERTIGO, last seizure 4 years ago History of Any Multi-Drug Resistant Organisms: MRSA Date of last positivie culture/infection: 04/20/15 MDRO Source:: Left Axilla Past Surgical History: Adenoidectomy, Back Surgery, Cholecystectomy, Orthopedic Surgery, Tonsillectomy Additional Past Surgical History / Comment(s): bilateral foot surgery d/t rsd, numerous pain clinic procedures, nerve stimulator in back to tx RSD placed in Nov 11 2015 Past Anesthesia/Blood Transfusion Reactions: Previous Problems w/ Anesthesia Additional Past Anesthesia/Blood Transfusion Reaction / Comment(s): Pt recieved blood when she was 2 yrs old after tonsillectomy. WHEN BABY HEART STOPPED TWICE- PT STATED SHE WAS ALLERGIC TO ETHER. Past Psychological History: Anxiety, Bipolar, Depression, PTSD Smoking Status: Never smoker Past Alcohol Use History: None Reported Past Drug Use History: None Reported - Past Family History Father History Unknown: Yes Mother Family Medical History: Cancer, CVA/TIA, Diabetes Mellitus, Myocardial Infarction ([place]) Additional Family Medical History / Comment(s): Mother has had 5 CVAs, 3 MIs and UTERINE CANCER General Exam - General Exam Comments Initial Comments: GENERAL Patient is well-developed and well-nourished. Patient is in mild distress. EYES Patient's pupils are equal and round. Extraocular motion is intact SKIN Unremarkable NEURO The patient is alert and oriented 3 PYSCH Patient has normal interpersonal interactions. MUSCULOSKELETAL no signs of inflammation redness or swelling to the feet. Patient is neurovascularly intact at her feet. Limitations: no limitations Course Vital Signs 02/09/17 14:54 Temperature 99.0 F Pulse Rate 109 H Respiratory 18 Rate Blood Pressure 130/67 O2 Sat by Pulse 97 Oximetry Disposition Clinical Impression: Chronic foot pain Disposition: HOME SELF-CARE Condition: Good Instructions: Chronic Pain (ED) Referrals: Gustavo Chappell MD [Primary Care Provider] - 1-2 days Time of Disposition: 15:07
== END 2017-02-09 15:24 | disposition home or self-care (01) ==
LOC: EC 14:52
DX: G89.29 Other chronic pain (principal); M79.671 Pain in right foot; M79.672 Pain in left foot; K21.9 Gastro-esophageal reflux disease without esophagitis; E78.5 Hyperlipidemia, unspecified; M19.90 Unspecified osteoarthritis, unspecified site; G40.909 Epilepsy, unspecified, not intractable, without status epilepticus; F31.9 Bipolar disorder, unspecified; F43.10 Post-traumatic stress disorder, unspecified; Z88.1 Allergy status to other antibiotic agents; Z88.2 Allergy status to sulfonamides; Z88.5 Allergy status to narcotic agent; Z88.8 Allergy status to other drugs, medicaments and biological substances; Z91.013 Allergy to seafood; Z79.3 Long term (current) use of hormonal contraceptives; Z79.899 Other long term (current) drug therapy
CPT/HCPCS: 99283; 96372; J1885

== ENCOUNTER 2017-04-06 14:24 | Emergency (ER) | payer MEDICARE, OTHER ==
[2017-04-06] MEDS ORDERED: DICYCLOMINE 20 MG TAB PO STA ×2 (15:40→17:13)
[2017-04-06] MEDS ORDERED: METOCLOPRAMIDE 5 MG/ML 2 ML VIAL IVP STA (15:40)
[2017-04-06] MEDS ORDERED: diphenhydrAMINE 50 MG/ML 1 ML VIAL IVP STA (15:40)
[2017-04-06] MEDS ORDERED: DEXAMETHASONE SOD PHOSPHATE 10 MG/ML 1 ML VIAL IV STA (15:40)
[2017-04-06] MEDS ORDERED: IBUPROFEN 800 MG TAB PO STA ×2 (15:40→17:12)
[2017-04-06] MEDS ORDERED: ACETAMINOPHEN TAB 500 MG TAB PO STA ×2 (15:40→17:12)
[2017-04-06] MEDS ORDERED: SODIUM CHLORIDE 0.9% 1,000 ML IV ONE (15:40)
--- NOTE | 2017-04-06 15:45 | ED ---
Headache HPI - General Chief Complaint: Headache Stated Complaint: Vomiting Time Seen by Provider: 04/06/17 15:33 Mode of arrival: ambulatory Limitations: no limitations - History of Present Illness Initial Comments: Patient is a 31-year-old female presents with a chief complaint of a headache, nausea, and diarrhea. This been going on for 2 days. The patient cannot identify any inciting incidences. The patient states that she was just on bromocriptine, 2.5 mg for secondary to an Rodriguez. Aggravating factors of the headache include moving her eyes, light, and sound. Alleviating factors are rest, and being in the dark. Timing is constant. - Related Data Home Medications Medication Instructions Recorded Confirmed Gemfibrozil [Lopid] 600 mg PO AC-BID 11/22/13 04/06/17 Medroxyprogesterone Acetate 150 mg IM Q90D 11/22/13 04/06/17 [Depo-Provera] rOPINIRole HCL [Requip] 1 mg PO DAILY 11/22/13 04/06/17 Montelukast [Singulair] 10 mg PO HS 10/07/14 04/06/17 Pentosan Polysulfate Sodium 100 mg PO BID 02/10/15 04/06/17 [Elmiron] Pantoprazole Sodium [Protonix] 40 mg PO DAILY 04/20/15 04/06/17 Beclomethasone Dipropionate [Qvar 2 puff INHALATION RT-BID PRN 06/07/15 04/06/17 80 mcg/puff] Prazosin HCl [Minipress] 2 mg PO HS 01/04/16 04/06/17 traZODone HCL [Desyrel] 400 mg PO HS 01/04/16 04/06/17 Gabapentin 600 mg PO BID 06/14/16 04/06/17 HYDROcodone/APAP 7.5-325MG [[place] 1 tab PO TID PRN 07/20/16 04/06/17 7.5-325] Hydrochlorothiazide [Hydrodiuril] 25 mg PO DAILY 07/20/16 04/06/17 Paliperidone IM Pt Own [Invega 117 mg IM Q28D 07/20/16 04/06/17 Sustenna] carBAMazepine [TEGretol XR] 200 mg PO HS 07/20/16 04/06/17 Amantadine HCl [Symmetrel] 100 mg PO BID 11/21/16 04/06/17 Metoclopramide [Reglan] 5 mg PO ACHS 11/21/16 04/06/17 Ondansetron [Zofran ODT] 8 mg PO Q8HR PRN 11/21/16 04/06/17 Acyclovir [Zovirax] 800 mg PO DAILY PRN 11/30/16 04/06/17 carBAMazepine [TEGretol XR] 100 mg PO QAM 11/30/16 04/06/17 tiZANidine [Zanaflex] 4 mg PO TID PRN 11/30/16 04/06/17 Rizatriptan Benzoate [Maxalt] 10 mg PO BID PRN 12/12/16 04/06/17 Tiotropium [employer] [Spiriva 2 puff INHALATION RT-BID PRN 12/12/16 04/06/17 Respimat] carBAMazepine [TEGretol XR] 200 mg PO BID 01/03/17 04/06/17 rOPINIRole HCL [Requip] 2 mg PO HS 02/09/17 04/06/17 Bromocriptine Mesylate [Parlodel] 2.5 mg PO BID 04/06/17 04/06/17 Memantine [Namenda] 10 mg PO BID 04/06/17 04/06/17 Allergies Allergy/AdvReac Type Severity Reaction Status Date / Time azithromycin Allergy Rash/Hives Verified 04/06/17 16:00 [From Zithromax Z-Mehrdad] cimetidine [From Tagamet] Allergy Rash/Hives Verified 04/06/17 16:00 ether [Ether] Allergy Anaphylaxis Verified 04/06/17 16:00 Fish Containing Products Allergy Anaphylaxis Verified 04/06/17 16:00 [Fish] ketorolac tromethamine Allergy Rash/Hives Verified 04/06/17 16:00 [From Toradol] ziprasidone HCl [From Geodon] Allergy Extrapyramidal Verified 04/06/17 16:00 Symptoms fluphenazine HCl AdvReac Extrapyramidal Verified 04/06/17 16:00 [From Prolixin] Symptoms haloperidol [From Haldol] AdvReac Extrapyramidal Verified 04/06/17 16:00 Symptoms Sulfa (Sulfonamide AdvReac Nausea & Verified 04/06/17 16:00 Antibiotics) Vomiting Review of Systems ROS Statement: Those systems with pertinent positive or pertinent negative responses have been documented in the HPI. ROS Other: All systems not noted in ROS Statement are negative. Constitutional: Reports: chills ENT: Reports: ear pain Gastrointestinal: Reports: nausea, vomiting, diarrhea Neurological: Reports: headache Past Medical History Past Medical History: Asthma, GERD/Reflux, Hyperlipidemia, Musculoskeletal Disorder, Neurologic Disorder, Osteoarthritis (OA), Seizure Disorder Additional Past Medical History / Comment(s): RSD-DERIC FEET, INTERSTITIAL CYSTITIS, BRONCHITIS, HEMORRHOIDS,MIGRAINES, INSOMNIA. VERTIGO, last seizure 4 years ago History of Any Multi-Drug Resistant Organisms: MRSA Date of last positivie culture/infection: 04/20/15 MDRO Source:: Left Axilla Past Surgical History: Adenoidectomy, Back Surgery, Cholecystectomy, Orthopedic Surgery, Tonsillectomy Additional Past Surgical History / Comment(s): bilateral foot surgery d/t rsd, numerous pain clinic procedures, nerve stimulator in back to tx RSD placed in Nov 11 2015 Past Anesthesia/Blood Transfusion Reactions: Previous Problems w/ Anesthesia Additional Past Anesthesia/Blood Transfusion Reaction / Comment(s): Pt recieved blood when she was 2 yrs old after tonsillectomy. WHEN BABY HEART STOPPED TWICE- PT STATED SHE WAS ALLERGIC TO ETHER. Past Psychological History: Anxiety, Bipolar, Depression, PTSD Smoking Status: Never smoker Past Alcohol Use History: None Reported Past Drug Use History: None Reported, Marijuana - Past Family History Father History Unknown: Yes Mother Family Medical History: Cancer, CVA/TIA, Diabetes Mellitus, Myocardial Infarction ([place]) Additional Family Medical History / Comment(s): Mother has had 5 CVAs, 3 MIs and UTERINE CANCER General Exam Limitations: no limitations General appearance: alert, in no apparent distress Head exam: Present: atraumatic, normocephalic Eye exam: Present: normal appearance, PERRL, EOMI Pupils: Present: normal accommodation ENT exam: Present: mucous membranes moist Neck exam: Present: full ROM. Absent: meningismus Respiratory exam: Present: normal lung sounds bilaterally Cardiovascular Exam: Present: regular rate, normal rhythm GI/Abdominal exam: Present: soft. Absent: distended, tenderness Extremities exam: Present: normal inspection Neurological exam: Present: alert, oriented X3, CN II-XII intact, normal gait Psychiatric exam: Present: normal affect, normal mood Skin exam: Present: warm, dry, intact Course Vital Signs 04/06/17 14:47 Temperature 98.3 F Pulse Rate 119 H Respiratory 18 Rate Blood Pressure 156/88 O2 Sat by Pulse 97 Oximetry Medical Decision Making - Medical Decision Making Patient presents with a chief complaint of a headache, nausea, vomiting, diarrhea. On initial evaluation, vital signs are stable. Patient is in mild distress secondary to pain. Neurologically, the patient is intact. She is able to gait well without assistance. There are no meningeal signs. Patient will be treated for headache, and will have influenza swabs sent, and basic labs. 6:25 PM Lab evaluation was patient is unremarkable. On reexamination, patient states that her headache is gone. This time, she is comfortable going home. She was discharged in stable condition. She was instructed to follow up with primary care or return to the emergency department if her symptoms worsen or change in anyway. - Lab Data Result diagrams: 04/06/17 16:00 04/06/17 16:00 Lab Results 04/06/17 04/06/17 04/06/17 Range/Units 16:00 16:00 16:00 WBC 8.0 (3.8-10.6) k/uL RBC 5.04 (3.80-5.40) m/uL Hgb 15.3 (11.4-16.0) gm/dL Hct 44.2 (34.0-46.0) % MCV 87.7 (80.0-100.0) fL MCH 30.3 (25.0-35.0) pg MCHC 34.6 (31.0-37.0) g/dL RDW 12.9 (11.5-15.5) % Plt Count 291 (150-450) k/uL Neutrophils % 68 % Lymphocytes % 25 % Monocytes % 5 % Eosinophils % 1 % Basophils % 1 % Neutrophils # 5.5 (1.3-7.7) k/uL Lymphocytes # 2.0 (1.0-4.8) k/uL Monocytes # 0.4 (0-1.0) k/uL Eosinophils # 0.1 (0-0.7) k/uL Basophils # 0.1 (0-0.2) k/uL Sodium 141 (137-145) mmol/L Potassium 3.6 (3.5-5.1) mmol/L Chloride 102 (98-107) mmol/L Carbon Dioxide 22 (22-30) mmol/L Anion Gap 17 mmol/L BUN 16 (7-17) mg/dL Creatinine 0.70 (0.52-1.04) mg/dL Est GFR (MDRD) Af Amer >60 (>60 ml/min/1.73 sqM) Est GFR (MDRD) Non-Af >60 (>60 ml/min/1.73 sqM) Glucose 105 H (74-99) mg/dL Calcium 10.3 H (8.4-10.2) mg/dL Influenza Type A RNA Not Detected (Not Detectd) Influenza Type B (PCR) Not Detected (Not Detectd) Disposition Clinical Impression: Migraine Disposition: HOME SELF-CARE Condition: Good Instructions: Acute Headache (ED) Referrals: Gustavo Chappell MD [Primary Care Provider] - 1-2 days
[2017-04-06 16:12] LABS: Basophils # (A) 0.1 k/uL (0-0.2); Basophils % (A) 1 %; Eosinophils # (A) 0.1 k/uL (0-0.7); Eosinophils % (A) 1 %; HCT 44.2 % (34.0-46.0); HGB 15.3 gm/dL (11.4-16.0); Lymphocytes % (A) 25 %; MCH 30.3 pg (25.0-35.0); MCHC 34.6 g/dL (31.0-37.0); MCV 87.7 fL (80.0-100.0); Mean Platelet Volume 6.5; Monocytes # (A) 0.4 k/uL (0-1.0); Monocytes % (A) 5 %; Neutrophils # (A) 5.5 k/uL (1.3-7.7); Neutrophils % (A) 68 %; Platelet Count 291 k/uL (150-450); RBC 5.04 m/uL (3.80-5.40); RDW 12.9 % (11.5-15.5)
[2017-04-06 16:36] LABS: Anion Gap 17 mmol/L; Blood Urea Nitrogen 16 mg/dL (7-17); Calcium 10.3 mg/dL (8.4-10.2); Carbon Dioxide 22 mmol/L (22-30); Chloride 102 mmol/L (98-107); Glucose 105 mg/dL (74-99); Potassium 3.6 mmol/L (3.5-5.1); Sodium 141 mmol/L (137-145)
[2017-04-06] MEDS ORDERED: KETOROLAC 30 MG/ML 1 ML VIAL IVP STA (17:21)
[2017-04-06 18:36] VITALS: BP 130/75; PULSE 86; RESP 16; TEMP 97.8
== END 2017-04-06 18:47 | disposition home or self-care (01) ==
LOC: EC 14:24
DX: G43.909 Migraine, unspecified, not intractable, without status migrainosus (principal); R19.7 Diarrhea, unspecified; K21.9 Gastro-esophageal reflux disease without esophagitis; E78.5 Hyperlipidemia, unspecified; M19.90 Unspecified osteoarthritis, unspecified site; G40.909 Epilepsy, unspecified, not intractable, without status epilepticus; F31.9 Bipolar disorder, unspecified; F41.9 Anxiety disorder, unspecified; F43.10 Post-traumatic stress disorder, unspecified; Z86.14 Personal history of Methicillin resistant Staphylococcus aureus infection; Z79.899 Other long term (current) drug therapy; Z88.1 Allergy status to other antibiotic agents; Z88.6 Allergy status to analgesic agent; Z88.2 Allergy status to sulfonamides; Z88.8 Allergy status to other drugs, medicaments and biological substances; Z91.013 Allergy to seafood
CPT/HCPCS: 36415; 80048; 85025; 87502; 99283; 96374; 96375 ×3; 96361; J1200; J1100; J2765; J1885

== ENCOUNTER → 2017-04-17 | Outpatient (CLI) | payer MEDICARE, OTHER ==
[2017-04-17 12:12] LABS: ALT 29 U/L (9-52); AST 14 U/L (14-36); Albumin 4.6 g/dL (3.5-5.0); Alkaline Phosphatase 118 U/L (38-126); Amylase 56 U/L (30-110); Anion Gap 13 mmol/L; Blood Urea Nitrogen 11 mg/dL (7-17); Calcium 9.8 mg/dL (8.4-10.2); Carbon Dioxide 29 mmol/L (22-30); Chloride 99 mmol/L (98-107); Cholesterol 113 mg/dL (<200); Glucose 95 mg/dL (74-99); HDL Cholesterol 38 mg/dL (40-60); LDL Cholesterol,Calculated 42 mg/dL (0-99); Lipase 38 U/L (23-300); Sodium 141 mmol/L (137-145); Total Bilirubin 0.2 mg/dL (0.2-1.3); Total Protein 6.9 g/dL (6.3-8.2); Triglycerides 164 mg/dL (<150)
--- NOTE | 2017-04-17 12:21 | CT ---
EXAMINATION TYPE: CT abdomen pelvis w con DATE OF EXAM: 04/17/2017 HISTORY: Vomiting CT DLP: 1576mGycm Automated Exposure Control for Dose Reduction was Utilized. TECHNIQUE/CONTRAST: CT scan of the abdomen and pelvis is performed with IV Contrast, patient injected with 100 mL of Omni paque 300. The patient refused oral contrast. This limits evaluation of the bowel. COMPARISON: 03/03/2017 FINDINGS: LUNG BASES: Minimal bibasilar subsegmental dependent atelectasis is present. LIVER/GB: No significant abnormality is appreciated. Gallbladder is surgically absent. PANCREAS: No significant abnormality is seen. No ductal dilatation. SPLEEN: No significant abnormality is seen. No splenomegaly ADRENALS: No significant abnormality is seen. No thickening or nodularity. KIDNEYS: Cortical scarring from prior injury of the left lower pole is again demonstrated. Right nayely ical lower pole renal cyst is also seen. Cortical scarring of the right upper pole is also noted from prior injury. BOWEL: Few sigmoid diverticula are present without pericolonic fat stranding. Bowel is nondilated. Ap pendix is within normal limits of size without periappendiceal fat stranding. UTERUS/ADNEXA: No gross abnormality seen. Bilateral follicular changes are seen of the ovaries. LYMPH NODES: No greater than 1cm abdominal or pelvic lymph nodes are appreciated. OSSEOUS STRUCTURES: Multilevel mild degenerative changes of the lumbosacral and visualized thoracolum bar spine are noted. OTHER: Spinal nerve stimulators are seen within the gluteal regions extending intrathecally in the sherry mbosacral spine. IMPRESSION: No significant acute finding is seen to account for patient's clinical symptoms. No evide nce of bowel obstruction or appendicitis.
[2017-04-17 12:28] LABS: T4, Free (Free Thyroxine) 1.29 ng/dL (0.78-2.19)
[2017-04-17 14:57] LABS: Basophils # (A) 0.1 k/uL (0-0.2); Basophils % (A) 1 %; Eosinophils # (A) 0.1 k/uL (0-0.7); Eosinophils % (A) 2 %; HCT 44.7 % (34.0-46.0); HGB 14.9 gm/dL (11.4-16.0); Lymphocytes # (A) 1.6 k/uL (1.0-4.8); Lymphocytes % (A) 24 %; MCHC 33.4 g/dL (31.0-37.0); MCV 89.9 fL (80.0-100.0); Mean Platelet Volume 7.2; Monocytes # (A) 0.4 k/uL (0-1.0); Monocytes % (A) 7 %; Neutrophils # (A) 4.2 k/uL (1.3-7.7); Neutrophils % (A) 65 %; Platelet Count 262 k/uL (150-450); RBC 4.97 m/uL (3.80-5.40); RDW 12.7 % (11.5-15.5); WBC 6.5 k/uL (3.8-10.6)
== END | disposition home or self-care (01) ==
LOC: RADCTMAIN 11:06
PROVIDERS: ATTEND Physician Assistant
DX: R10.9 Unspecified abdominal pain (principal); Z88.2 Allergy status to sulfonamides; Z88.5 Allergy status to narcotic agent; Z88.6 Allergy status to analgesic agent; Z88.8 Allergy status to other drugs, medicaments and biological substances
CPT/HCPCS: 84439; 80061; 80053; 82150; 83690; 84443; 85025; 74177; Q9967

== ENCOUNTER 2017-05-08 18:42 | Emergency (ER) | payer MEDICARE, OTHER ==
[2017-05-08 18:58] VITALS: RESP 18
[2017-05-08] MEDS ORDERED: METOCLOPRAMIDE 5 MG/ML 2 ML VIAL IVP STA (19:42)
[2017-05-08] MEDS ORDERED: SODIUM CHLORIDE 0.9% 1,000 ML IV STA (19:42)
[2017-05-08] MEDS ORDERED: diphenhydrAMINE 50 MG/ML 1 ML VIAL IVP STA (19:42)
[2017-05-08] MEDS ORDERED: KETOROLAC 30 MG/ML 1 ML VIAL IVP STA (19:42)
[2017-05-08] MEDS ORDERED: SODIUM CHLORIDE 0.9% 500 ML IV STA (19:42)
[2017-05-08] MEDS ORDERED: DEXAMETHASONE SOD PHOSPHATE 10 MG/ML 1 ML VIAL IV STA (19:43)
--- NOTE | 2017-05-08 19:56 | ED ---
Headache HPI - General Chief Complaint: Headache Stated Complaint: HEADACHE Time Seen by Provider: 05/08/17 19:35 Mode of arrival: wheelchair Limitations: no limitations - History of Present Illness Initial Comments: This 31-year-old white female presents with a complaint of a headache. She states that is more into the frontal region. Onset occurred this morning. It was gradual in onset. This is not the worst headache of her life. She apparently has these quite frequently. She was having some usually every several days to 1 week. She's being seen by Dr. Lund from neurology for her headaches and has been on multiple different medications. She complains of some photophobia as well as some phonophobia. She denies any fevers or chills. She does have some neck pain which is normal for her for her headaches. She states that the pain is fairly severe in nature. Her ALLERGIES list Toradol as well as one of her ALLERGIES but she is able to take Toradol is on she gets Benadryl and she's had this multiple times in the past. No other identifiable complaints or modifying factors. - Related Data Home Medications Medication Instructions Recorded Confirmed Gemfibrozil [Lopid] 600 mg PO AC-BID 11/22/13 05/08/17 Medroxyprogesterone Acetate 150 mg IM Q90D 11/22/13 05/08/17 [Depo-Provera] rOPINIRole HCL [Requip] 1 mg PO DAILY 11/22/13 05/08/17 Montelukast [Singulair] 10 mg PO HS 10/07/14 05/08/17 Pentosan Polysulfate Sodium 100 mg PO BID 02/10/15 05/08/17 [Elmiron] Pantoprazole Sodium [Protonix] 40 mg PO DAILY 04/20/15 05/08/17 Beclomethasone Dipropionate [Qvar 2 puff INHALATION RT-BID PRN 06/07/15 05/08/17 80 mcg/puff] Prazosin HCl [Minipress] 2 mg PO HS 01/04/16 05/08/17 traZODone HCL [Desyrel] 400 mg PO HS 01/04/16 05/08/17 Gabapentin 600 mg PO BID 06/14/16 05/08/17 HYDROcodone/APAP 7.5-325MG [[place] 1 tab PO TID PRN 07/20/16 05/08/17 7.5-325] Hydrochlorothiazide [Hydrodiuril] 25 mg PO DAILY 07/20/16 05/08/17 Paliperidone IM Pt Own [Invega 117 mg IM Q28D 07/20/16 05/08/17 Sustenna] carBAMazepine [TEGretol XR] 200 mg PO HS 07/20/16 05/08/17 Amantadine HCl [Symmetrel] 100 mg PO BID 11/21/16 05/08/17 Metoclopramide [Reglan] 5 mg PO ACHS 11/21/16 05/08/17 Ondansetron [Zofran ODT] 8 mg PO Q8HR PRN 11/21/16 05/08/17 Acyclovir [Zovirax] 800 mg PO DAILY PRN 11/30/16 05/08/17 carBAMazepine [TEGretol XR] 100 mg PO QAM 11/30/16 05/08/17 tiZANidine [Zanaflex] 4 mg PO TID PRN 11/30/16 05/08/17 Rizatriptan Benzoate [Maxalt] 10 mg PO BID PRN 12/12/16 05/08/17 Tiotropium [place] [Spiriva 2 puff INHALATION RT-BID PRN 12/12/16 05/08/17 Respimat] carBAMazepine [TEGretol XR] 200 mg PO BID 01/03/17 05/08/17 rOPINIRole HCL [Requip] 2 mg PO HS 02/09/17 05/08/17 Bromocriptine Mesylate [Parlodel] 2.5 mg PO BID 04/06/17 05/08/17 Memantine [Namenda] 10 mg PO BID 04/06/17 05/08/17 Allergies Allergy/AdvReac Type Severity Reaction Status Date / Time azithromycin Allergy Rash/Hives Verified 05/08/17 19:39 [From Zithromax Z-Mehrdad] cimetidine [From Tagamet] Allergy Rash/Hives Verified 05/08/17 19:39 ether [Ether] Allergy Anaphylaxis Verified 05/08/17 19:39 Fish Containing Products Allergy Anaphylaxis Verified 05/08/17 19:39 [Fish] ketorolac tromethamine Allergy Rash/Hives Verified 05/08/17 19:39 [From Toradol] ziprasidone HCl [From Geodon] Allergy Extrapyramidal Verified 05/08/17 19:39 Symptoms fluphenazine HCl AdvReac Extrapyramidal Verified 05/08/17 19:39 [From Prolixin] Symptoms haloperidol [From Haldol] AdvReac Extrapyramidal Verified 05/08/17 19:39 Symptoms Sulfa (Sulfonamide AdvReac Nausea & Verified 05/08/17 19:39 Antibiotics) Vomiting Review of Systems ROS Statement: Those systems with pertinent positive or pertinent negative responses have been documented in the HPI. ROS Other: All systems not noted in ROS Statement are negative. Past Medical History Past Medical History: Asthma, GERD/Reflux, Hyperlipidemia, Musculoskeletal Disorder, Neurologic Disorder, Osteoarthritis (OA), Seizure Disorder Additional Past Medical History / Comment(s): RSD-DERIC FEET, INTERSTITIAL CYSTITIS, BRONCHITIS, HEMORRHOIDS,MIGRAINES, INSOMNIA. VERTIGO, last seizure 4 years ago History of Any Multi-Drug Resistant Organisms: MRSA Date of last positivie culture/infection: 04/20/15 MDRO Source:: Left Axilla Past Surgical History: Adenoidectomy, Back Surgery, Cholecystectomy, Orthopedic Surgery, Tonsillectomy Additional Past Surgical History / Comment(s): bilateral foot surgery d/t rsd, numerous pain clinic procedures, nerve stimulator in back to tx RSD placed in Nov 11 2015 Past Anesthesia/Blood Transfusion Reactions: Previous Problems w/ Anesthesia Additional Past Anesthesia/Blood Transfusion Reaction / Comment(s): Pt recieved blood when she was 2 yrs old after tonsillectomy. WHEN BABY HEART STOPPED TWICE- PT STATED SHE WAS ALLERGIC TO ETHER. Past Psychological History: Anxiety, Bipolar, Depression, PTSD Smoking Status: Never smoker Past Alcohol Use History: None Reported Past Drug Use History: Marijuana - Past Family History Father History Unknown: Yes Mother Family Medical History: Cancer, CVA/TIA, Diabetes Mellitus, Myocardial Infarction ([place]) Additional Family Medical History / Comment(s): Mother has had 5 CVAs, 3 MIs and UTERINE CANCER General Exam - General Exam Comments Initial Comments: GENERAL: The patient is well nourished and well hydrated. VITAL SIGNS: Heart rate, blood pressure, respiratory rate reviewed as recorded in nurse's notes. EYES: Pupils are round and reactive. Extraocular movements are intact. No conjunctival / lid redness or swelling. ENT: No external evidence of injury, swelling, or ecchymosis. Airway is patent. Throat is clear. NECK: There is mild tenderness diffusely throughout the posterior neck. There is no meningeal signs. No swelling or evidence of injury. No subcutaneous emphysema. Trachea is midline. No thyroid mass. HEART: Regular rate and rhythm. Good peripheral pulses. LUNGS/CHEST: Breath sounds clear and equal bilaterally. No rales, rhonchi, or wheezes. No ecchymosis, subcutaneous emphysema, or tenderness. ABDOMEN: Abdomen soft without tenderness. No palpable masses or organomegaly. No peritoneal signs. No abdominal wall swelling or ecchymosis. EXTREMITIES: No extremity tenderness. Normal muscle tone and function. No thoracolumbar tenderness. NEUROLOGIC: Sensation is grossly intact. Cranial nerve exam reveals face is symmetrical, tongue is midline, speech is clear. SKIN: No abrasions or ecchymosis is noted. No induration or masses noted. PSYCHIATRIC: Alert and oriented. Appropriate behavior and judgment. Limitations: no limitations Course Vital Signs 05/08/17 18:56 Temperature 99.1 F Pulse Rate 110 H Respiratory 18 Rate Blood Pressure 133/75 O2 Sat by Pulse 95 Oximetry Medical Decision Making - Medical Decision Making The patient is seen and examined. All diagnostics are reviewed. An IV is started and patient is hydrated and also receives some Decadron, Toradol, Benadryl, and Reglan intravenously. The patient is feeling better on recheck and is requesting to be discharged home. It is felt as though she is stable at this time for discharge and may follow-up with her neurologist for further treatment. Disposition Clinical Impression: Migraine Disposition: HOME SELF-CARE Condition: Good Instructions: Migraine Headache (ED) Referrals: None,Stated [Primary Care Provider] - 1-2 days Casper Shannon MD [STAFF PHYSICIAN] - 1-2 days Time of Disposition: 20:45
[2017-05-08 21:00] VITALS: BP 136/84; PULSE 92; TEMP 98
== END 2017-05-08 20:59 | disposition home or self-care (01) ==
LOC: EC 18:42
DX: G43.909 Migraine, unspecified, not intractable, without status migrainosus (principal); M54.2 Cervicalgia; E78.5 Hyperlipidemia, unspecified; J45.909 Unspecified asthma, uncomplicated; K21.9 Gastro-esophageal reflux disease without esophagitis; G40.909 Epilepsy, unspecified, not intractable, without status epilepticus; F31.9 Bipolar disorder, unspecified; Z79.3 Long term (current) use of hormonal contraceptives; Z79.899 Other long term (current) drug therapy; Z88.1 Allergy status to other antibiotic agents; Z88.2 Allergy status to sulfonamides; Z88.6 Allergy status to analgesic agent; Z88.8 Allergy status to other drugs, medicaments and biological substances; Z91.013 Allergy to seafood; Z86.14 Personal history of Methicillin resistant Staphylococcus aureus infection
CPT/HCPCS: 99283; 96374; 96375 ×3; 96361; J1200; J1100; J2765; J1885

== ENCOUNTER 2017-05-15 20:10 | Emergency (ER) | payer MEDICARE, OTHER ==
[2017-05-15] MEDS ORDERED: KETOROLAC 30 MG/ML 1 ML VIAL IVP STA (20:41)
[2017-05-15] MEDS ORDERED: METOCLOPRAMIDE 5 MG/ML 2 ML VIAL IVP STA (20:43)
[2017-05-15] MEDS ORDERED: diphenhydrAMINE 50 MG/ML 1 ML VIAL IVP STA (20:43)
[2017-05-15] MEDS ORDERED: HYDROmorphone 0.5 MG/0.5 ML SYRINGE IVP STA (20:44)
[2017-05-15] MEDS ORDERED: SODIUM CHLORIDE 0.9% 1,000 ML IV STA (20:45)
--- NOTE | 2017-05-15 20:55 | ED ---
Headache HPI - General Chief Complaint: Headache Stated Complaint: Migraine Time Seen by Provider: 05/15/17 20:36 Source: RN notes reviewed Mode of arrival: ambulatory Limitations: no limitations - History of Present Illness Initial Comments: This is a 31-year-old female who presents to the emergency department with chief complaint of migraine. Patient states she has a history of migraines and that this is no different from her normal. She states that she was seen here recently and was discharged home. She followed up with neurology and was given a shot of Toradol this morning. Patient reports associated nausea and vomiting. She states that the migraine is left sided and is stabbing and pounding in nature. She states that she has difficulty concentrating due to the pain. She denies any recent traumas or falls. - Related Data Home Medications Medication Instructions Recorded Confirmed Gemfibrozil [Lopid] 600 mg PO AC-BID 11/22/13 05/15/17 Medroxyprogesterone Acetate 150 mg IM Q90D 11/22/13 05/15/17 [Depo-Provera] rOPINIRole HCL [Requip] 1 mg PO DAILY 11/22/13 05/15/17 Montelukast [Singulair] 10 mg PO HS 10/07/14 05/15/17 Pentosan Polysulfate Sodium 100 mg PO BID 02/10/15 05/15/17 [Elmiron] Pantoprazole Sodium [Protonix] 40 mg PO DAILY 04/20/15 05/15/17 Beclomethasone Dipropionate [Qvar 2 puff INHALATION RT-BID PRN 06/07/15 05/15/17 80 mcg/puff] Prazosin HCl [Minipress] 2 mg PO HS 01/04/16 05/15/17 traZODone HCL [Desyrel] 400 mg PO HS 01/04/16 05/15/17 Gabapentin 600 mg PO BID 06/14/16 05/15/17 HYDROcodone/APAP 7.5-325MG [[place] 1 tab PO TID PRN 07/20/16 05/15/17 7.5-325] Hydrochlorothiazide [Hydrodiuril] 25 mg PO DAILY 07/20/16 05/15/17 Paliperidone IM Pt Own [Invega 117 mg IM Q28D 07/20/16 05/15/17 Sustenna] carBAMazepine [TEGretol XR] 200 mg PO HS 07/20/16 05/15/17 Amantadine HCl [Symmetrel] 100 mg PO BID 11/21/16 05/15/17 Metoclopramide [Reglan] 5 mg PO ACHS 11/21/16 05/15/17 Ondansetron [Zofran ODT] 8 mg PO Q8HR PRN 11/21/16 05/15/17 Acyclovir [Zovirax] 800 mg PO DAILY PRN 11/30/16 05/15/17 carBAMazepine [TEGretol XR] 100 mg PO QAM 11/30/16 05/15/17 tiZANidine [Zanaflex] 4 mg PO TID PRN 11/30/16 05/15/17 Rizatriptan Benzoate [Maxalt] 10 mg PO BID PRN 12/12/16 05/15/17 Tiotropium [place] [Spiriva 2 puff INHALATION RT-BID PRN 12/12/16 05/15/17 Respimat] carBAMazepine [TEGretol XR] 200 mg PO BID 01/03/17 05/15/17 rOPINIRole HCL [Requip] 2 mg PO HS 02/09/17 05/15/17 Bromocriptine Mesylate [Parlodel] 2.5 mg PO BID 04/06/17 05/15/17 Memantine [Namenda] 10 mg PO BID 04/06/17 05/15/17 Ibuprofen [Motrin Ib] 200 - 400 mg PO Q6H PRN 05/15/17 05/15/17 Allergies Allergy/AdvReac Type Severity Reaction Status Date / Time azithromycin Allergy Rash/Hives Verified 05/15/17 20:49 [From Zithromax Z-Mehrdad] cimetidine [From Tagamet] Allergy Rash/Hives Verified 05/15/17 20:49 ether [Ether] Allergy Anaphylaxis Verified 05/15/17 20:49 Fish Containing Products Allergy Anaphylaxis Verified 05/15/17 20:49 [Fish] ketorolac tromethamine Allergy Rash/Hives Verified 05/15/17 20:49 [From Toradol] ziprasidone HCl [From Geodon] Allergy Extrapyramidal Verified 05/15/17 20:49 Symptoms fluphenazine HCl AdvReac Extrapyramidal Verified 05/15/17 20:49 [From Prolixin] Symptoms haloperidol [From Haldol] AdvReac Extrapyramidal Verified 05/15/17 20:49 Symptoms Sulfa (Sulfonamide AdvReac Nausea & Verified 05/15/17 20:49 Antibiotics) Vomiting Review of Systems ROS Statement: Those systems with pertinent positive or pertinent negative responses have been documented in the HPI. ROS Other: All systems not noted in ROS Statement are negative. Past Medical History Past Medical History: Asthma, GERD/Reflux, Hyperlipidemia, Musculoskeletal Disorder, Neurologic Disorder, Osteoarthritis (OA), Seizure Disorder Additional Past Medical History / Comment(s): RSD-DERIC FEET, INTERSTITIAL CYSTITIS, BRONCHITIS, HEMORRHOIDS,MIGRAINES, INSOMNIA. VERTIGO, last seizure 4 years ago History of Any Multi-Drug Resistant Organisms: MRSA Date of last positivie culture/infection: 04/20/15 MDRO Source:: Left Axilla Past Surgical History: Adenoidectomy, Back Surgery, Cholecystectomy, Orthopedic Surgery, Tonsillectomy Additional Past Surgical History / Comment(s): bilateral foot surgery d/t rsd, numerous pain clinic procedures, nerve stimulator in back to tx RSD placed in Nov 11 2015 Past Anesthesia/Blood Transfusion Reactions: Previous Problems w/ Anesthesia Additional Past Anesthesia/Blood Transfusion Reaction / Comment(s): Pt recieved blood when she was 2 yrs old after tonsillectomy. WHEN BABY HEART STOPPED TWICE- PT STATED SHE WAS ALLERGIC TO ETHER. Past Psychological History: Anxiety, Bipolar, Depression, PTSD Smoking Status: Never smoker Past Alcohol Use History: None Reported Past Drug Use History: Marijuana - Past Family History Father History Unknown: Yes Mother Family Medical History: Cancer, CVA/TIA, Diabetes Mellitus, Myocardial Infarction ([place]) Additional Family Medical History / Comment(s): Mother has had 5 CVAs, 3 MIs and UTERINE CANCER General Exam - General Exam Comments Initial Comments: General: Awake and alert, well-developed; in no apparent distress. Patient lying on ED stretcher with ice pack on her forehead. HEENT: Head atraumatic, normocephalic. Pupils are equal, round and reactive to light. Extraocular movements intact. Oropharynx moist without erythema or exudate. Neck: Supple. Normal ROM. Cardiovascular: Regular rate and rhythm. No murmurs, rubs or gallops. Chest symmetrical. Respiratory: Lungs clear to auscultation bilaterally. No wheezes, rales or rhonchi. Normal respiratory effort with no use of accessory muscles. Skin: [place], warm and dry without rashes or lesions. Neurological: Alert and oriented x3. CN II-XII grossly intact. Speech is fluent and answers are appropriate. No focal neuro deficits. Limitations: no limitations Course Vital Signs 05/15/17 20:31 Temperature 98.4 F Pulse Rate 108 H Respiratory 20 Rate Blood Pressure 133/97 O2 Sat by Pulse 95 Oximetry Medical Decision Making - Medical Decision Making This is a 31-year-old female who presents to the emergency department with chief complaint of migraine. Patient has a history of migraines and states that this feels no different from previous. Patient denies any recent trauma. She was given medication while in the emergency department and states that she has much improved. Vital signs are stable and she is in no acute distress. She will be discharged home. She is to follow-up with her primary care provider. Patient is in agreement with plan and voices understanding. All questions were answered. Disposition Clinical Impression: Migraine Disposition: HOME SELF-CARE Condition: Good Instructions: Migraine Headache (ED) Additional Instructions: Please follow up with primary care provider within 1-2 days. Return to emergency department if symptoms should worsen or any concerns arise. Referrals: Gustavo Chappell MD [Primary Care Provider] - 1-2 days Time of Disposition: 22:12
[2017-05-15 22:28] VITALS: BP 124/76; PULSE 86; RESP 18; TEMP 97.8
== END 2017-05-15 22:27 | disposition home or self-care (01) ==
LOC: EC 20:10
DX: G43.909 Migraine, unspecified, not intractable, without status migrainosus (principal); J45.909 Unspecified asthma, uncomplicated; K21.9 Gastro-esophageal reflux disease without esophagitis; E78.5 Hyperlipidemia, unspecified; G40.909 Epilepsy, unspecified, not intractable, without status epilepticus; G47.00 Insomnia, unspecified; F31.9 Bipolar disorder, unspecified; F43.10 Post-traumatic stress disorder, unspecified; F41.9 Anxiety disorder, unspecified; Z86.14 Personal history of Methicillin resistant Staphylococcus aureus infection; Z79.899 Other long term (current) drug therapy; Z88.1 Allergy status to other antibiotic agents; Z91.013 Allergy to seafood; Z88.2 Allergy status to sulfonamides; Z88.6 Allergy status to analgesic agent; Z88.8 Allergy status to other drugs, medicaments and biological substances; Z91.048 Other nonmedicinal substance allergy status
CPT/HCPCS: 99283; 96374; 96375 ×3; 96361; J1200; J2765; J1885; J1170

== ENCOUNTER 2017-06-02 20:57 | Emergency (ER) | payer MEDICARE, OTHER ==
[2017-06-02] MEDS ORDERED: MORPHINE SULFATE 4 MG/ML SYRINGE IM STA (22:18)
--- NOTE | 2017-06-02 22:20 | ED ---
General Adult HPI - General Chief complaint: Recheck/Abnormal Lab/Rx Stated complaint: Left Foot Time Seen by Provider: 06/02/17 22:06 Source: patient, RN notes reviewed Mode of arrival: ambulatory Limitations: no limitations - History of Present Illness Initial comments: 31-year-old female presented emergency from she went of left foot pain. Patient has RSD. Patient's been having increasing symptoms over the last week. She has seen her neurologist, pain management and podiatrists several times this week they have wrapped her foot, but her foot brace no relief of her symptoms. Patient called her neurologist who told her return for pain stimulator and states that it did not help and she was advised, emergency Department. She has a follow-up appointment tomorrow. Denies any new trauma. - Related Data Home Medications Medication Instructions Recorded Confirmed Gemfibrozil [Lopid] 600 mg PO AC-BID 11/22/13 05/15/17 Medroxyprogesterone Acetate 150 mg IM Q90D 11/22/13 05/15/17 [Depo-Provera] rOPINIRole HCL [Requip] 1 mg PO DAILY 11/22/13 05/15/17 Montelukast [Singulair] 10 mg PO HS 10/07/14 05/15/17 Pentosan Polysulfate Sodium 100 mg PO BID 02/10/15 05/15/17 [Elmiron] Pantoprazole Sodium [Protonix] 40 mg PO DAILY 04/20/15 05/15/17 Beclomethasone Dipropionate [Qvar 2 puff INHALATION RT-BID PRN 06/07/15 05/15/17 80 mcg/puff] Prazosin HCl [Minipress] 2 mg PO HS 01/04/16 05/15/17 traZODone HCL [Desyrel] 400 mg PO HS 01/04/16 05/15/17 Gabapentin 600 mg PO BID 06/14/16 05/15/17 HYDROcodone/APAP 7.5-325MG [[place] 1 tab PO TID PRN 07/20/16 05/15/17 7.5-325] Hydrochlorothiazide [Hydrodiuril] 25 mg PO DAILY 07/20/16 05/15/17 Paliperidone IM Pt Own [Invega 117 mg IM Q28D 07/20/16 05/15/17 Sustenna] carBAMazepine [TEGretol XR] 200 mg PO HS 07/20/16 05/15/17 Amantadine HCl [Symmetrel] 100 mg PO BID 11/21/16 05/15/17 Metoclopramide [Reglan] 5 mg PO ACHS 11/21/16 05/15/17 Ondansetron [Zofran ODT] 8 mg PO Q8HR PRN 11/21/16 05/15/17 Acyclovir [Zovirax] 800 mg PO DAILY PRN 11/30/16 05/15/17 carBAMazepine [TEGretol XR] 100 mg PO QAM 11/30/16 05/15/17 tiZANidine [Zanaflex] 4 mg PO TID PRN 11/30/16 05/15/17 Rizatriptan Benzoate [Maxalt] 10 mg PO BID PRN 12/12/16 05/15/17 Tiotropium [place] [Spiriva 2 puff INHALATION RT-BID PRN 12/12/16 05/15/17 Respimat] carBAMazepine [TEGretol XR] 200 mg PO BID 01/03/17 05/15/17 rOPINIRole HCL [Requip] 2 mg PO HS 02/09/17 05/15/17 Bromocriptine Mesylate [Parlodel] 2.5 mg PO BID 04/06/17 05/15/17 Memantine [Namenda] 10 mg PO BID 04/06/17 05/15/17 Ibuprofen [Motrin Ib] 200 - 400 mg PO Q6H PRN 05/15/17 05/15/17 Allergies Allergy/AdvReac Type Severity Reaction Status Date / Time azithromycin Allergy Rash/Hives Verified 06/02/17 21:32 [From Zithromax Z-Mehrdad] cimetidine [From Tagamet] Allergy Rash/Hives Verified 06/02/17 21:32 ether [Ether] Allergy Anaphylaxis Verified 06/02/17 21:32 Fish Containing Products Allergy Anaphylaxis Verified 06/02/17 21:32 [Fish] ketorolac tromethamine Allergy Rash/Hives Verified 06/02/17 21:32 [From Toradol] ziprasidone HCl [From Geodon] Allergy Extrapyramidal Verified 06/02/17 21:32 Symptoms fluphenazine HCl AdvReac Extrapyramidal Verified 06/02/17 21:32 [From Prolixin] Symptoms haloperidol [From Haldol] AdvReac Extrapyramidal Verified 06/02/17 21:32 Symptoms Sulfa (Sulfonamide AdvReac Nausea & Verified 06/02/17 21:32 Antibiotics) Vomiting Review of Systems ROS Statement: Those systems with pertinent positive or pertinent negative responses have been documented in the HPI. ROS Other: All systems not noted in ROS Statement are negative. Past Medical History Past Medical History: Asthma, GERD/Reflux, Hyperlipidemia, Musculoskeletal Disorder, Neurologic Disorder, Osteoarthritis (OA), Seizure Disorder Additional Past Medical History / Comment(s): RSD-DERIC FEET, INTERSTITIAL CYSTITIS, BRONCHITIS, HEMORRHOIDS,MIGRAINES, INSOMNIA. VERTIGO, last seizure 4 years ago History of Any Multi-Drug Resistant Organisms: MRSA Date of last positivie culture/infection: 04/20/15 MDRO Source:: Left Axilla Past Surgical History: Adenoidectomy, Back Surgery, Cholecystectomy, Orthopedic Surgery, Tonsillectomy Additional Past Surgical History / Comment(s): bilateral foot surgery d/t rsd, numerous pain clinic procedures, nerve stimulator in back to tx RSD placed in Nov 11 2015 Past Anesthesia/Blood Transfusion Reactions: Previous Problems w/ Anesthesia Additional Past Anesthesia/Blood Transfusion Reaction / Comment(s): Pt recieved blood when she was 2 yrs old after tonsillectomy. WHEN BABY HEART STOPPED TWICE- PT STATED SHE WAS ALLERGIC TO ETHER. Past Psychological History: Anxiety, Bipolar, Depression, PTSD Smoking Status: Never smoker Past Alcohol Use History: None Reported Past Drug Use History: Marijuana - Past Family History Father History Unknown: Yes Mother Family Medical History: Cancer, CVA/TIA, Diabetes Mellitus, Myocardial Infarction ([place]) Additional Family Medical History / Comment(s): Mother has had 5 CVAs, 3 MIs and UTERINE CANCER General Exam Limitations: no limitations General appearance: alert, in no apparent distress Head exam: Present: atraumatic, normocephalic, normal inspection Respiratory exam: Present: normal lung sounds bilaterally. Absent: respiratory distress, wheezes, rales, rhonchi, stridor Cardiovascular Exam: Present: regular rate, normal rhythm, normal heart sounds. Absent: systolic murmur, diastolic murmur, rubs, gallop, clicks Extremities exam: Present: other (left leg there is noted wrapped, brace on her left foot. Toes are exposed Refill less than 2 seconds neurovascular intact she has tenderness diffusely over the foot and ankle region) Course Vital Signs 06/02/17 21:28 Temperature 99 F Pulse Rate 101 H Respiratory 16 Rate Blood Pressure 144/97 O2 Sat by Pulse 97 Oximetry Medical Decision Making - Medical Decision Making 31-year-old female presented for chronic pain in her left foot secondary to RSD. Patient given an injection of pain and she is advised follow-up with her neurologist tomorrow and return for any worsening or change in her symptoms. Disposition Clinical Impression: Chronic pain in left foot Disposition: HOME SELF-CARE Condition: Stable Instructions: Chronic Pain (ED) Additional Instructions: Please return to the Emergency Department if symptoms worsen or any other concerns. Referrals: Gustavo Chappell MD [Primary Care Provider] - 1-2 days Time of Disposition: 22:20
[2017-06-02 22:36] VITALS: BP 141/56; PULSE 88; RESP 20; TEMP 98.3
== END 2017-06-02 22:35 | disposition home or self-care (01) ==
LOC: EC 20:57
DX: G89.29 Other chronic pain (principal); M79.672 Pain in left foot; J45.909 Unspecified asthma, uncomplicated; K21.9 Gastro-esophageal reflux disease without esophagitis; E78.5 Hyperlipidemia, unspecified; G40.909 Epilepsy, unspecified, not intractable, without status epilepticus; F31.9 Bipolar disorder, unspecified; F41.9 Anxiety disorder, unspecified; F43.10 Post-traumatic stress disorder, unspecified; Z86.14 Personal history of Methicillin resistant Staphylococcus aureus infection; Z79.01 Long term (current) use of anticoagulants; Z79.899 Other long term (current) drug therapy; Z88.1 Allergy status to other antibiotic agents; Z88.2 Allergy status to sulfonamides; Z91.013 Allergy to seafood; Z88.8 Allergy status to other drugs, medicaments and biological substances; Z88.6 Allergy status to analgesic agent
CPT/HCPCS: 99283; 96372; J2270

== ENCOUNTER 2017-06-19 17:37 | Emergency (ER) | payer MEDICARE, OTHER ==
[2017-06-19 17:43] VITALS: BP 138/96; PULSE 108; RESP 20; TEMP 97.9
[2017-06-19] MEDS ORDERED: KETOROLAC 60 MG/2 ML VIAL IM STA (17:56)
[2017-06-19] MEDS ORDERED: diphenhydrAMINE 50 MG/ML 1 ML VIAL IM STA (17:56)
--- NOTE | 2017-06-19 18:00 | ED ---
General Adult HPI - General Chief complaint: Headache Stated complaint: MIGRAINE Time Seen by Provider: 06/19/17 17:47 Source: patient, RN notes reviewed Mode of arrival: ambulatory Limitations: no limitations - History of Present Illness Initial comments: Patient is a pleasant 31-year-old female presenting to the emergency department with complaints of headache. Onset of symptoms was 2-3 days ago. Patient has left-sided headache. Patient does have chronic headaches. This headache is similar to her chronic headaches. Patient has had previous evaluation including computed tomography scan and does see a neurologist for this. Patient tried to call her neurologist to get a Toradol injection however they did not call back. Patient actually call the second time and still no call back. Patient requests a Toradol injection. - Related Data Home Medications Medication Instructions Recorded Confirmed Gemfibrozil [Lopid] 600 mg PO AC-BID 11/22/13 06/02/17 Medroxyprogesterone Acetate 150 mg IM Q90D 11/22/13 06/02/17 [Depo-Provera] rOPINIRole HCL [Requip] 1 mg PO DAILY 11/22/13 06/02/17 Montelukast [Singulair] 10 mg PO HS 10/07/14 06/02/17 Pentosan Polysulfate Sodium 100 mg PO BID 02/10/15 06/02/17 [Elmiron] Pantoprazole Sodium [Protonix] 40 mg PO DAILY 04/20/15 06/02/17 Beclomethasone Dipropionate [Qvar 2 puff INHALATION RT-BID PRN 06/07/15 06/02/17 80 mcg/puff] Prazosin HCl [Minipress] 2 mg PO HS 01/04/16 06/02/17 traZODone HCL [Desyrel] 400 mg PO HS 01/04/16 06/02/17 Gabapentin 600 mg PO BID 06/14/16 06/02/17 HYDROcodone/APAP 7.5-325MG [[place] 1 tab PO TID PRN 07/20/16 06/02/17 7.5-325] Hydrochlorothiazide [Hydrodiuril] 25 mg PO DAILY 07/20/16 06/02/17 Paliperidone IM Pt Own [Invega 117 mg IM Q28D 07/20/16 06/02/17 Sustenna] carBAMazepine [TEGretol XR] 200 mg PO HS 07/20/16 06/02/17 Amantadine HCl [Symmetrel] 100 mg PO BID 11/21/16 06/02/17 Metoclopramide [Reglan] 5 mg PO ACHS 11/21/16 06/02/17 Ondansetron [Zofran ODT] 8 mg PO Q8HR PRN 11/21/16 06/02/17 Acyclovir [Zovirax] 800 mg PO DAILY PRN 11/30/16 06/02/17 carBAMazepine [TEGretol XR] 100 mg PO QAM 11/30/16 06/02/17 tiZANidine [Zanaflex] 4 mg PO TID PRN 11/30/16 06/02/17 Rizatriptan Benzoate [Maxalt] 10 mg PO BID PRN 12/12/16 06/02/17 Tiotropium [place] [Spiriva 2 puff INHALATION RT-BID PRN 12/12/16 06/02/17 Respimat] carBAMazepine [TEGretol XR] 200 mg PO BID 01/03/17 06/02/17 rOPINIRole HCL [Requip] 2 mg PO HS 02/09/17 06/02/17 Bromocriptine Mesylate [Parlodel] 2.5 mg PO BID 04/06/17 06/02/17 Memantine [Namenda] 10 mg PO BID 04/06/17 06/02/17 Ibuprofen [Motrin Ib] 200 - 400 mg PO Q6H PRN 05/15/17 06/02/17 Allergies Allergy/AdvReac Type Severity Reaction Status Date / Time azithromycin Allergy Rash/Hives Verified 06/19/17 17:41 [From Zithromax Z-Mehrdad] cimetidine [From Tagamet] Allergy Rash/Hives Verified 06/19/17 17:41 ether [Ether] Allergy Anaphylaxis Verified 06/19/17 17:41 Fish Containing Products Allergy Anaphylaxis Verified 06/19/17 17:41 [Fish] ketorolac tromethamine Allergy Rash/Hives Verified 06/19/17 17:41 [From Toradol] ziprasidone HCl [From Geodon] Allergy Extrapyramidal Verified 06/19/17 17:41 Symptoms fluphenazine HCl AdvReac Extrapyramidal Verified 06/19/17 17:41 [From Prolixin] Symptoms haloperidol [From Haldol] AdvReac Extrapyramidal Verified 06/19/17 17:41 Symptoms Sulfa (Sulfonamide AdvReac Nausea & Verified 06/19/17 17:41 Antibiotics) Vomiting Review of Systems ROS Statement: Those systems with pertinent positive or pertinent negative responses have been documented in the HPI. ROS Other: All systems not noted in ROS Statement are negative. Constitutional: Denies: fever Eyes: Denies: eye pain ENT: Denies: ear pain Respiratory: Denies: cough Cardiovascular: Denies: chest pain Endocrine: Denies: fatigue Gastrointestinal: Denies: abdominal pain Genitourinary: Denies: dysuria Musculoskeletal: Denies: back pain Skin: Denies: rash Neurological: Reports: headache. Denies: weakness, confusion Past Medical History Past Medical History: Asthma, GERD/Reflux, Hyperlipidemia, Musculoskeletal Disorder, Neurologic Disorder, Osteoarthritis (OA), Seizure Disorder Additional Past Medical History / Comment(s): RSD-DERIC FEET, INTERSTITIAL CYSTITIS, BRONCHITIS, HEMORRHOIDS,MIGRAINES, INSOMNIA. VERTIGO, last seizure 4 years ago History of Any Multi-Drug Resistant Organisms: MRSA Date of last positivie culture/infection: 04/20/15 MDRO Source:: Left Axilla Past Surgical History: Adenoidectomy, Back Surgery, Cholecystectomy, Orthopedic Surgery, Tonsillectomy Additional Past Surgical History / Comment(s): bilateral foot surgery d/t rsd, numerous pain clinic procedures, nerve stimulator in back to tx RSD placed in Nov 11 2015 Past Anesthesia/Blood Transfusion Reactions: Previous Problems w/ Anesthesia Additional Past Anesthesia/Blood Transfusion Reaction / Comment(s): Pt recieved blood when she was 2 yrs old after tonsillectomy. WHEN BABY HEART STOPPED TWICE- PT STATED SHE WAS ALLERGIC TO ETHER. Past Psychological History: Anxiety, Bipolar, Depression, PTSD Smoking Status: Never smoker Past Alcohol Use History: None Reported Past Drug Use History: Marijuana - Past Family History Father History Unknown: Yes Mother Family Medical History: Cancer, CVA/TIA, Diabetes Mellitus, Myocardial Infarction ([place]) Additional Family Medical History / Comment(s): Mother has had 5 CVAs, 3 MIs and UTERINE CANCER General Exam Limitations: no limitations General appearance: alert, in no apparent distress Head exam: Present: atraumatic Eye exam: Present: normal appearance, PERRL, EOMI. Absent: nystagmus ENT exam: Present: normal oropharynx Neck exam: Present: normal inspection Respiratory exam: Present: normal lung sounds bilaterally Cardiovascular Exam: Present: regular rate, normal rhythm Extremities exam: Present: normal inspection Neurological exam: Present: alert, CN II-XII intact. Absent: motor sensory deficit Expanded Neurological exam: Present: protecting the airway Speech: Present: fluid speech Cranial nerves: EOM's Intact: Normal, Facial Sensation: Normal Sensory exam: Upper Extremity Light Touch: Normal, Lower Extremity Light Touch: Normal Motor strength exam: RUE: 5, LUE: 5, RLE: 5, LLE: 5 Eye Response: (4) open spontaneously Motor Response: (6) obeys commands Verbal Response: (5) oriented Psychiatric exam: Present: normal affect, normal mood Skin exam: Present: normal color Course Vital Signs 06/19/17 17:41 Temperature 97.9 F Pulse Rate 108 H Respiratory 20 Rate Blood Pressure 138/96 O2 Sat by Pulse 97 Oximetry Disposition Clinical Impression: Headache Disposition: HOME SELF-CARE Condition: Stable Instructions: Acute Headache (ED) Additional Instructions: Please follow-up to in the next day or 2 for recheck. Please also follow- up with your neurologist this week. Return for weakness, fever, confusion, worsening or changing symptoms or other concerns. Referrals: Gustavo Chappell MD [Primary Care Provider] - 1-2 days Time of Disposition: 18:00
== END 2017-06-19 18:07 | disposition home or self-care (01) ==
LOC: EC 17:37
DX: R51 Headache (principal); E78.5 Hyperlipidemia, unspecified; J45.909 Unspecified asthma, uncomplicated; G40.909 Epilepsy, unspecified, not intractable, without status epilepticus; K21.9 Gastro-esophageal reflux disease without esophagitis; F31.9 Bipolar disorder, unspecified; F41.9 Anxiety disorder, unspecified; Z79.3 Long term (current) use of hormonal contraceptives; Z79.899 Other long term (current) drug therapy; Z88.1 Allergy status to other antibiotic agents; Z88.2 Allergy status to sulfonamides; Z88.6 Allergy status to analgesic agent; Z88.8 Allergy status to other drugs, medicaments and biological substances; Z91.013 Allergy to seafood; Z91.048 Other nonmedicinal substance allergy status; Z86.14 Personal history of Methicillin resistant Staphylococcus aureus infection; Z87.448 Personal history of other diseases of urinary system
CPT/HCPCS: 99283; 96372 ×2; J1200; J1885

== ENCOUNTER 2017-07-09 16:23 | Emergency (ER) | payer MEDICARE, OTHER ==
[2017-07-09 16:38] VITALS: BP 139/78; PULSE 96; RESP 18; TEMP 97.7
[2017-07-09] MEDS ORDERED: ORPHENADRINE 30 MG/ML 2 ML VIAL IM STA (18:26)
[2017-07-09] MEDS ORDERED: DEXAMETHASONE SOD PHOSPHATE 10 MG/ML 1 ML VIAL IM STA (18:26)
--- NOTE | 2017-07-09 18:43 | ED ---
General Adult HPI - General Chief complaint: Back Pain/Injury Stated complaint: Foot pain Time Seen by Provider: 07/09/17 18:08 Source: patient, RN notes reviewed Mode of arrival: wheelchair Limitations: no limitations - History of Present Illness Initial comments: This is a pleasant 31-year-old female who suffers from chroni pain secondary to RSD. Patient complaining of pain in both legs which is quite chronic and frequent for her. Patient states that she went to her furniture painter this morning was given an injection of Toradol. Patient does have hydrocodone at home. Patient also on Neurontin for nerve pain. Patient requesting something for the [place] pain. Patient denies any acute injury. No fever or chills. No chest pain or shortness of breath. No rashes or lesions. No distal paresthesias. - Related Data Home Medications Medication Instructions Recorded Confirmed Gemfibrozil [Lopid] 600 mg PO AC-BID 11/22/13 07/09/17 Medroxyprogesterone Acetate 150 mg IM Q84D 11/22/13 07/09/17 [Depo-Provera] rOPINIRole HCL [Requip] 1 mg PO DAILY 11/22/13 07/09/17 Montelukast [Singulair] 10 mg PO HS 10/07/14 07/09/17 Pentosan Polysulfate Sodium 100 mg PO BID 02/10/15 07/09/17 [Elmiron] Pantoprazole Sodium [Protonix] 40 mg PO DAILY 04/20/15 07/09/17 Beclomethasone Dipropionate [Qvar 2 puff INHALATION RT-BID PRN 06/07/15 07/09/17 80 mcg/puff] Prazosin HCl [Minipress] 2 mg PO HS 01/04/16 07/09/17 Gabapentin 600 mg PO BID 06/14/16 07/09/17 HYDROcodone/APAP 7.5-325MG [[place] 1 tab PO TID PRN 07/20/16 07/09/17 7.5-325] Hydrochlorothiazide [Hydrodiuril] 25 mg PO DAILY 07/20/16 07/09/17 Paliperidone IM Pt Own [Invega 117 mg IM Q28D 07/20/16 07/09/17 Sustenna] carBAMazepine [TEGretol XR] 200 mg PO HS 07/20/16 07/09/17 Amantadine HCl [Symmetrel] 100 mg PO BID 11/21/16 07/09/17 Ondansetron [Zofran ODT] 8 mg PO Q8HR PRN 11/21/16 07/09/17 Acyclovir [Zovirax] 800 mg PO DAILY PRN 11/30/16 07/09/17 carBAMazepine [TEGretol XR] 100 mg PO QAM 11/30/16 07/09/17 tiZANidine [Zanaflex] 4 mg PO Q6H PRN 11/30/16 07/09/17 Rizatriptan Benzoate [Maxalt] 10 mg PO BID PRN 12/12/16 07/09/17 Tiotrop[address] [place] [Spiriva 2 puff INHALATION RT-BID PRN 12/12/16 07/09/17 Respimat] carBAMazepine [TEGretol XR] 200 mg PO BID 01/03/17 07/09/17 rOPINIRole HCL [Requip] 2 mg PO HS 02/09/17 07/09/17 Memantine [Namenda] 10 mg PO BID 04/06/17 07/09/17 Dicyclomine [Bentyl] 20 mg PO BID 07/09/17 07/09/17 Eletriptan HBr [Relpax] 40 mg PO DAILY PRN 07/09/17 07/09/17 QUEtiapine [SEROquel] 100 mg PO HS 07/09/17 07/09/17 Allergies Allergy/AdvReac Type Severity Reaction Status Date / Time azithromycin Allergy Rash/Hives Verified 07/09/17 18:21 [From Zithromax Z-Mehrdad] cimetidine [From Tagamet] Allergy Rash/Hives Verified 07/09/17 18:21 ether [Ether] Allergy Anaphylaxis Verified 07/09/17 18:21 Fish Containing Products Allergy Anaphylaxis Verified 07/09/17 18:21 [Fish] ketorolac tromethamine Allergy Rash/Hives Verified 07/09/17 18:21 [From Toradol] ziprasidone HCl [From Geodon] Allergy Extrapyramidal Verified 07/09/17 18:21 Symptoms fluphenazine HCl AdvReac Extrapyramidal Verified 07/09/17 18:21 [From Prolixin] Symptoms haloperidol [From Haldol] AdvReac Extrapyramidal Verified 07/09/17 18:21 Symptoms Sulfa (Sulfonamide AdvReac Nausea & Verified 07/09/17 18:21 Antibiotics) Vomiting Review of Systems ROS Statement: Those systems with pertinent positive or pertinent negative responses have been documented in the HPI. ROS Other: All systems not noted in ROS Statement are negative. Past Medical History Past Medical History: Asthma, GERD/Reflux, Hyperlipidemia, Musculoskeletal Disorder, Neurologic Disorder, Osteoarthritis (OA), Seizure Disorder Additional Past Medical History / Comment(s): RSD-DERIC FEET, INTERSTITIAL CYSTITIS, BRONCHITIS, HEMORRHOIDS,MIGRAINES, INSOMNIA. VERTIGO, last seizure 4 years ago History of Any Multi-Drug Resistant Organisms: MRSA Date of last positivie culture/infection: 04/20/15 MDRO Source:: Left Axilla Past Surgical History: Adenoidectomy, Back Surgery, Cholecystectomy, Orthopedic Surgery, Tonsillectomy Additional Past Surgical History / Comment(s): bilateral foot surgery d/t rsd, numerous pain clinic procedures, nerve stimulator in back to tx RSD placed in Nov 11 2015 Past Anesthesia/Blood Transfusion Reactions: Previous Problems w/ Anesthesia Additional Past Anesthesia/Blood Transfusion Reaction / Comment(s): Pt recieved blood when she was 2 yrs old after tonsillectomy. WHEN BABY HEART STOPPED TWICE- PT STATED SHE WAS ALLERGIC TO ETHER. Past Psychological History: Anxiety, Bipolar, Depression, PTSD Smoking Status: Never smoker Past Alcohol Use History: None Reported Past Drug Use History: Marijuana - Past Family History Father History Unknown: Yes Mother Family Medical History: Cancer, CVA/TIA, Diabetes Mellitus, Myocardial Infarction ([place]) Additional Family Medical History / Comment(s): Mother has had 5 CVAs, 3 MIs and UTERINE CANCER General Exam - General Exam Comments Initial Comments: Well-developed, well-nourished 31-year-old female mild distress Limitations: no limitations General appearance: alert, in no apparent distress Head exam: Present: atraumatic, normocephalic, normal inspection Eye exam: Present: normal appearance, EOMI Neck exam: Present: normal inspection. Absent: tenderness, meningismus, lymphadenopathy Respiratory exam: Present: normal lung sounds bilaterally. Absent: respiratory distress, wheezes, rales, rhonchi, stridor Cardiovascular Exam: Present: regular rate, normal rhythm, normal heart sounds. Absent: systolic murmur, diastolic murmur, rubs, gallop, clicks Extremities exam: Present: normal inspection, full ROM, tenderness (Patient has tenderness to light touch of the lower extremities overlying the ankles, lower legs, however there is no gross deformity. No crepitus. No evidence of injury. Pedal pulses 2+ out of 4, capillary refill less than 2 seconds, patient has full range of motion in both ankles, both feet, and both knees. No evidence of pedal edema. Negative Homans sign), normal capillary refill. Absent: pedal edema, calf tenderness Back exam: Present: normal inspection Neurological exam: Present: alert, oriented X3, CN II-XII intact. Absent: motor sensory deficit Psychiatric exam: Present: normal affect, normal mood Skin exam: Present: warm, dry, intact, normal color. Absent: rash Course Vital Signs 07/09/17 16:35 Temperature 97.7 F Pulse Rate 96 Respiratory 18 Rate Blood Pressure 139/78 O2 Sat by Pulse 98 Oximetry Medical Decision Making - Medical Decision Making Patient presents ER with what appears to be an exacerbation of her chronic leg pain. Patient will be given an injection of Norflex as well as an injection of dexamethasone. Patient will need to follow-up with her pain management physician in the morning. Return and follow-up parameters discussed. Disposition Clinical Impression: Chronic pain of lower extremity, bilateral Disposition: HOME SELF-CARE Condition: Stable Instructions: Chronic Pain (ED) Additional Instructions: Return to the ER at once if the symptoms worsen or problems or difficulties arise. Referrals: Gustavo Chappell MD [Primary Care Provider] - 1-2 days Casper Shannon MD [STAFF PHYSICIAN] - 1-2 days Time of Disposition: 18:42
== END 2017-07-09 19:33 | disposition home or self-care (01) ==
LOC: EC 16:23
DX: G89.29 Other chronic pain (principal); M79.662 Pain in left lower leg; M79.661 Pain in right lower leg; J45.909 Unspecified asthma, uncomplicated; K21.9 Gastro-esophageal reflux disease without esophagitis; E78.5 Hyperlipidemia, unspecified; M19.90 Unspecified osteoarthritis, unspecified site; G40.909 Epilepsy, unspecified, not intractable, without status epilepticus; F31.9 Bipolar disorder, unspecified; F41.9 Anxiety disorder, unspecified; F43.10 Post-traumatic stress disorder, unspecified; Z86.14 Personal history of Methicillin resistant Staphylococcus aureus infection; Z79.899 Other long term (current) drug therapy; Z91.013 Allergy to seafood; Z88.1 Allergy status to other antibiotic agents; Z88.2 Allergy status to sulfonamides; Z88.6 Allergy status to analgesic agent; Z88.8 Allergy status to other drugs, medicaments and biological substances
CPT/HCPCS: 99283; 96372 ×2; J1100; J2360

== ENCOUNTER 2017-08-14 20:56 | Emergency (ER) | payer MEDICARE, OTHER ==
[2017-08-14 21:01] VITALS: TEMP 98.9
[2017-08-14] MEDS ORDERED: ONDANSETRON ODT 4 MG TAB PO STA (21:46)
--- NOTE | 2017-08-14 21:47 | XR ---
EXAMINATION TYPE: XR ankle complete LT, XR foot complete LT DATE OF EXAM: 08/14/2017 COMPARISON: NONE HISTORY: Pain TECHNIQUE: 3 views of the left ankle and left foot are submitted for evaluation. FINDINGS: There is no evidence for fracture or dislocation. Ankle mortise is intact. Soft tissues are within normal limits. IMPRESSION: 1. No evidence for acute fracture.
--- NOTE | 2017-08-14 21:47 | ED ---
Lower Extremity Injury HPI - General Chief Complaint: Extremity Injury, Lower Stated Complaint: Ankle injury Time Seen by Provider: 08/14/17 21:06 Source: patient Mode of arrival: ambulatory Limitations: no limitations - History of Present Illness MD Complaint: foot injury Onset/Timin -: hour(s) Injury: Foot: Left Type of Injury: hyperflexion Place: street/outdoors Severity: moderate Improves With: nothing Worsens With: palpation Context: running - Related Data Home Medications Medication Instructions Recorded Confirmed Gemfibrozil [Lopid] 600 mg PO AC-BID 11/22/13 08/14/17 Medroxyprogesterone Acetate 150 mg IM Q84D 11/22/13 08/14/17 [Depo-Provera] rOPINIRole HCL [Requip] 1 mg PO DAILY 11/22/13 08/14/17 Montelukast [Singulair] 10 mg PO HS 10/07/14 08/14/17 Pentosan Polysulfate Sodium 100 mg PO BID 02/10/15 08/14/17 [Elmiron] Pantoprazole Sodium [Protonix] 40 mg PO DAILY 04/20/15 08/14/17 Beclomethasone Dipropionate [Qvar 2 puff INHALATION RT-BID PRN 06/07/15 08/14/17 80 mcg/puff] Prazosin HCl [Minipress] 2 mg PO HS 01/04/16 08/14/17 Gabapentin 600 mg PO BID 06/14/16 08/14/17 HYDROcodone/APAP 7.5-325MG [[place] 1 tab PO TID PRN 07/20/16 08/14/17 7.5-325] Hydrochlorothiazide [Hydrodiuril] 25 mg PO DAILY 07/20/16 08/14/17 Paliperidone IM Pt Own [Invega 117 mg IM Q28D 07/20/16 08/14/17 Sustenna] carBAMazepine [TEGretol XR] 200 mg PO HS 07/20/16 08/14/17 Amantadine HCl [Symmetrel] 100 mg PO BID 11/21/16 08/14/17 Ondansetron [Zofran ODT] 8 mg PO Q8HR PRN 11/21/16 08/14/17 Acyclovir [Zovirax] 800 mg PO DAILY PRN 11/30/16 08/14/17 carBAMazepine [TEGretol XR] 100 mg PO QAM 11/30/16 08/14/17 tiZANidine [Zanaflex] 4 mg PO Q6H PRN 11/30/16 08/14/17 Rizatriptan Benzoate [Maxalt] 10 mg PO BID PRN 12/12/16 08/14/17 Tiotropium [place] [Spiriva 2 puff INHALATION RT-BID PRN 12/12/16 08/14/17 Respimat] carBAMazepine [TEGretol XR] 200 mg PO BID 01/03/17 08/14/17 rOPINIRole HCL [Requip] 2 mg PO HS 02/09/17 08/14/17 Dicyclomine [Bentyl] 20 mg PO BID 07/09/17 08/14/17 Eletriptan HBr [Relpax] 40 mg PO DAILY PRN 07/09/17 08/14/17 QUEtiapine [SEROquel] 100 mg PO HS 07/09/17 08/14/17 Allergies Allergy/AdvReac Type Severity Reaction Status Date / Time azithromycin Allergy Rash/Hives Verified 08/14/17 21:17 [From Zithromax Z-Mehrdad] cimetidine [From Tagamet] Allergy Rash/Hives Verified 08/14/17 21:17 ether [Ether] Allergy Anaphylaxis Verified 08/14/17 21:17 Fish Containing Products Allergy Anaphylaxis Verified 08/14/17 21:17 [Fish] ketorolac tromethamine Allergy Rash/Hives Verified 08/14/17 21:17 [From Toradol] ziprasidone HCl [From Geodon] Allergy Extrapyramidal Verified 08/14/17 21:17 Symptoms fluphenazine HCl AdvReac Extrapyramidal Verified 08/14/17 21:17 [From Prolixin] Symptoms haloperidol [From Haldol] AdvReac Extrapyramidal Verified 08/14/17 21:17 Symptoms Sulfa (Sulfonamide AdvReac Nausea & Verified 08/14/17 21:17 Antibiotics) Vomiting Review of Systems ROS Statement: Those systems with pertinent positive or pertinent negative responses have been documented in the HPI. ROS Other: All systems not noted in ROS Statement are negative. Past Medical History Past Medical History: Asthma, GERD/Reflux, Hyperlipidemia, Musculoskeletal Disorder, Neurologic Disorder, Osteoarthritis (OA), Seizure Disorder Additional Past Medical History / Comment(s): RSD-DERIC FEET, INTERSTITIAL CYSTITIS, BRONCHITIS, HEMORRHOIDS,MIGRAINES, INSOMNIA. VERTIGO, last seizure 4 years ago History of Any Multi-Drug Resistant Organisms: MRSA Date of last positivie culture/infection: 04/20/15 MDRO Source:: Left Axilla Past Surgical History: Adenoidectomy, Back Surgery, Cholecystectomy, Orthopedic Surgery, Tonsillectomy Additional Past Surgical History / Comment(s): bilateral foot surgery d/t rsd, numerous pain clinic procedures, nerve stimulator in back to tx RSD placed in Nov 11 2015 Past Anesthesia/Blood Transfusion Reactions: Previous Problems w/ Anesthesia Additional Past Anesthesia/Blood Transfusion Reaction / Comment(s): Pt recieved blood when she was 2 yrs old after tonsillectomy. WHEN BABY HEART STOPPED TWICE- PT STATED SHE WAS ALLERGIC TO ETHER. Past Psychological History: Anxiety, Bipolar, Depression, PTSD Smoking Status: Never smoker Past Alcohol Use History: None Reported Past Drug Use History: Marijuana - Past Family History Father History Unknown: Yes Mother Family Medical History: Cancer, CVA/TIA, Diabetes Mellitus, Myocardial Infarction ([place]) Additional Family Medical History / Comment(s): Mother has had 5 CVAs, 3 MIs and UTERINE CANCER General Exam Limitations: no limitations Course Vital Signs 08/14/17 20:58 Temperature 98.9 F Pulse Rate 111 H Respiratory 20 Rate Blood Pressure 155/95 O2 Sat by Pulse 98 Oximetry Disposition Clinical Impression: Injury of foot, left Disposition: HOME SELF-CARE Condition: Good Instructions: Foot Sprain (ED) Is patient prescribed a controlled substance at d/c from ED?: No Referrals: Gustavo Chappell MD [Primary Care Provider] - 1-2 days
[2017-08-14] MEDS ORDERED: ORPHENADRINE 30 MG/ML 2 ML VIAL IM STA (22:14)
[2017-08-14 22:30] VITALS: BP 144/97; PULSE 96; RESP 18
== END 2017-08-14 22:36 | disposition home or self-care (01) ==
LOC: EC 20:56
DX: S99.922A Unspecified injury of left foot, initial encounter (principal); J45.909 Unspecified asthma, uncomplicated; K21.9 Gastro-esophageal reflux disease without esophagitis; E78.5 Hyperlipidemia, unspecified; G40.909 Epilepsy, unspecified, not intractable, without status epilepticus; F31.9 Bipolar disorder, unspecified; F43.10 Post-traumatic stress disorder, unspecified; F41.9 Anxiety disorder, unspecified; Z86.14 Personal history of Methicillin resistant Staphylococcus aureus infection; Z86.69 Personal history of other diseases of the nervous system and sense organs; Z88.1 Allergy status to other antibiotic agents; Z88.2 Allergy status to sulfonamides; Z88.5 Allergy status to narcotic agent; Z88.8 Allergy status to other drugs, medicaments and biological substances; Z91.013 Allergy to seafood; Z79.3 Long term (current) use of hormonal contraceptives; Z79.899 Other long term (current) drug therapy; X50.9XXA Other and unspecified overexertion or strenuous movements or postures, initial encounter; Y92.89 Other specified places as the place of occurrence of the external cause
CPT/HCPCS: 99283; 96372; 73610; 73630; J2360

== ENCOUNTER 2017-08-30 12:25 | Emergency (ER) | payer MEDICARE, OTHER ==
[2017-08-30 12:33] VITALS: BP 136/88; PULSE 110; RESP 20; TEMP 98.6
[2017-08-30] MEDS ORDERED: SODIUM CHLORIDE 0.9% 1,000 ML IV STA (12:56)
[2017-08-30 13:19] LABS: Basophils # (A) 0.1 k/uL (0-0.2); Basophils % (A) 1 %; Eosinophils # (A) 0.2 k/uL (0-0.7); Eosinophils % (A) 1 %; HCT 49.3 % (34.0-46.0); HGB 17.5 gm/dL (11.4-16.0); Lymphocytes # (A) 1.7 k/uL (1.0-4.8); Lymphocytes % (A) 13 %; MCH 30.5 pg (25.0-35.0); MCHC 35.4 g/dL (31.0-37.0); MCV 86.2 fL (80.0-100.0); Mean Platelet Volume 6.6; Monocytes # (A) 0.5 k/uL (0-1.0); Monocytes % (A) 4 %; Neutrophils # (A) 10.8 k/uL (1.3-7.7); Neutrophils % (A) 81 %; Platelet Count 279 k/uL (150-450); RBC 5.72 m/uL (3.80-5.40); RDW 12.7 % (11.5-15.5); WBC 13.3 k/uL (3.8-10.6)
--- NOTE | 2017-08-30 13:21 | ED ---
General Adult HPI - General Chief complaint: Altered Mental Status Stated complaint: Altered mental status Time Seen by Provider: 08/30/17 12:44 Source: patient, EMS, RN notes reviewed Mode of arrival: EMS Limitations: no limitations - History of Present Illness Initial comments: This is a 31-year-old female presents emergency department via EMS for feeling lethargic. Patient states that she was donating plasma and which this was always the second time she has done this. She states she started feeling very lightheaded and fatigued. She denies any chest pain, shortness breath or any dizziness. She does complain of a headache though she has chronic headaches she states is not unusual for her. Patient denies any vomiting but states that she is nauseated and she has no abdominal discomfort. Patient denies diarrhea, constipation. - Related Data Home Medications Medication Instructions Recorded Confirmed Gemfibrozil [Lopid] 600 mg PO AC-BID 11/22/13 08/30/17 Medroxyprogesterone Acetate 150 mg IM Q84D 11/22/13 08/30/17 [Depo-Provera] rOPINIRole HCL [Requip] 1 mg PO DAILY 11/22/13 08/30/17 Montelukast [Singulair] 10 mg PO HS 10/07/14 08/30/17 Pentosan Polysulfate Sodium 100 mg PO BID 02/10/15 08/30/17 [Elmiron] Pantoprazole Sodium [Protonix] 40 mg PO BID 04/20/15 08/30/17 Beclomethasone Dipropionate [Qvar 2 puff INHALATION RT-BID PRN 06/07/15 08/30/17 80 mcg/puff] Prazosin HCl [Minipress] 2 mg PO HS 01/04/16 08/30/17 Gabapentin 600 mg PO BID 06/14/16 08/30/17 HYDROcodone/APAP 7.5-325MG [[place] 1 tab PO TID PRN 07/20/16 08/30/17 7.5-325] Hydrochlorothiazide [Hydrodiuril] 25 mg PO DAILY 07/20/16 08/30/17 Paliperidone IM Pt Own [Invega 117 mg IM Q28D 07/20/16 08/30/17 Sustenna] carBAMazepine [TEGretol XR] 200 mg PO HS 07/20/16 08/30/17 Amantadine HCl [Symmetrel] 100 mg PO BID 11/21/16 08/30/17 Ondansetron [Zofran ODT] 8 mg PO Q8HR PRN 11/21/16 08/30/17 carBAMazepine [TEGretol XR] 100 mg PO QAM 11/30/16 08/30/17 tiZANidine [Zanaflex] 4 mg PO Q6H PRN 11/30/16 08/30/17 Rizatriptan Benzoate [Maxalt] 10 mg PO DAILY PRN 12/12/16 08/30/17 Tiotropium [place] [Spiriva 2 puff INHALATION RT-DAILY PRN 12/12/16 08/30/17 Respimat] carBAMazepine [TEGretol XR] 200 mg PO BID 01/03/17 08/30/17 rOPINIRole HCL [Requip] 2 mg PO HS 02/09/17 08/30/17 Dicyclomine [Bentyl] 20 mg PO BID 07/09/17 08/30/17 Eletriptan HBr [Relpax] 40 mg PO DAILY PRN 07/09/17 08/30/17 QUEtiapine [SEROquel] 100 mg PO HS 07/09/17 08/30/17 Acyclovir 400 mg PO DAILY PRN 08/30/17 08/30/17 Memantine [Namenda] 10 mg PO BID 08/30/17 08/30/17 Allergies Allergy/AdvReac Type Severity Reaction Status Date / Time azithromycin Allergy Rash/Hives Verified 08/14/17 21:17 [From Zithromax Z-Mehrdad] cimetidine [From Tagamet] Allergy Rash/Hives Verified 08/14/17 21:17 ether [Ether] Allergy Anaphylaxis Verified 08/14/17 21:17 Fish Containing Products Allergy Anaphylaxis Verified 08/14/17 21:17 [Fish] ketorolac tromethamine Allergy Rash/Hives Verified 08/14/17 21:17 [From Toradol] ziprasidone HCl [From Geodon] Allergy Extrapyramidal Verified 08/14/17 21:17 Symptoms fluphenazine HCl AdvReac Extrapyramidal Verified 08/14/17 21:17 [From Prolixin] Symptoms haloperidol [From Haldol] AdvReac Extrapyramidal Verified 08/14/17 21:17 Symptoms Sulfa (Sulfonamide AdvReac Nausea & Verified 08/14/17 21:17 Antibiotics) Vomiting Review of Systems ROS Statement: Those systems with pertinent positive or pertinent negative responses have been documented in the HPI. ROS Other: All systems not noted in ROS Statement are negative. Past Medical History Past Medical History: Asthma, GERD/Reflux, Hyperlipidemia, Musculoskeletal Disorder, Neurologic Disorder, Osteoarthritis (OA), Seizure Disorder Additional Past Medical History / Comment(s): RSD-DERIC FEET, INTERSTITIAL CYSTITIS, BRONCHITIS, HEMORRHOIDS,MIGRAINES, INSOMNIA. VERTIGO, last seizure 4 years ago History of Any Multi-Drug Resistant Organisms: MRSA Date of last positivie culture/infection: 04/20/15 MDRO Source:: Left Axilla Past Surgical History: Adenoidectomy, Back Surgery, Cholecystectomy, Orthopedic Surgery, Tonsillectomy Additional Past Surgical History / Comment(s): bilateral foot surgery d/t rsd, numerous pain clinic procedures, nerve stimulator in back to tx RSD placed in Nov 11 2015 Past Anesthesia/Blood Transfusion Reactions: Previous Problems w/ Anesthesia Additional Past Anesthesia/Blood Transfusion Reaction / Comment(s): Pt recieved blood when she was 2 yrs old after tonsillectomy. WHEN BABY HEART STOPPED TWICE- PT STATED SHE WAS ALLERGIC TO ETHER. Past Psychological History: Anxiety, Bipolar, Depression, PTSD Smoking Status: Never smoker Past Alcohol Use History: None Reported Past Drug Use History: Marijuana - Past Family History Father History Unknown: Yes Mother Family Medical History: Cancer, CVA/TIA, Diabetes Mellitus, Myocardial Infarction ([place]) Additional Family Medical History / Comment(s): Mother has had 5 CVAs, 3 MIs and UTERINE CANCER General Exam Limitations: no limitations General appearance: alert, in no apparent distress Head exam: Present: atraumatic, normocephalic, normal inspection Eye exam: Present: normal appearance, PERRL, EOMI. Absent: scleral icterus, conjunctival injection, periorbital swelling ENT exam: Present: normal exam, normal oropharynx, mucous membranes moist Neck exam: Present: normal inspection, full ROM. Absent: tenderness, meningismus, lymphadenopathy Respiratory exam: Present: normal lung sounds bilaterally. Absent: respiratory distress, wheezes, rales, rhonchi, stridor Cardiovascular Exam: Present: normal rhythm, tachycardia, normal heart sounds. Absent: systolic murmur, diastolic murmur, rubs, gallop, clicks GI/Abdominal exam: Present: soft, normal bowel sounds. Absent: distended, tenderness, guarding, rebound, rigid Neurological exam: Present: alert, oriented X3, CN II-XII intact, reflexes normal. Absent: motor sensory deficit Skin exam: Present: warm, dry, intact, normal color. Absent: rash Course Vital Signs 08/30/17 12:30 Temperature 98.6 F Pulse Rate 110 H Respiratory 20 Rate Blood Pressure 136/88 O2 Sat by Pulse 97 Oximetry Medical Decision Making - Medical Decision Making 31-year-old female presented for fatigue after donating plasma. Patient was hydrated she is heme concentrated on her lab work. Patient does have opiates on board though she does not appear to be under influence at this time. Patient is more awake and alert she is though slightly fatigued. Patient will be discharged to her friend who accepts responsibility of the patient. We did inform the friend that she cannot drive a vehicle today that she needs to be seen for recheck tomorrow return for any worsening symptoms. - Lab Data Result diagrams: 08/30/17 13:05 08/30/17 13:05 Lab Results 08/30/17 08/30/17 08/30/17 Range/Units 13:05 13:05 13:05 WBC 13.3 H (3.8-10.6) k/uL RBC 5.72 H (3.80-5.40) m/uL Hgb 17.5 H (11.4-16.0) gm/dL Hct 49.3 H (34.0-46.0) % MCV 86.2 (80.0-100.0) fL MCH 30.5 (25.0-35.0) pg MCHC 35.4 (31.0-37.0) g/dL RDW 12.7 (11.5-15.5) % Plt Count 279 (150-450) k/uL Neutrophils % 81 % Lymphocytes % 13 % Monocytes % 4 % Eosinophils % 1 % Basophils % 1 % Neutrophils # 10.8 H (1.3-7.7) k/uL Lymphocytes # 1.7 (1.0-4.8) k/uL Monocytes # 0.5 (0-1.0) k/uL Eosinophils # 0.2 (0-0.7) k/uL Basophils # 0.1 (0-0.2) k/uL Sodium 140 (137-145) mmol/L Potassium 3.7 (3.5-5.1) mmol/L Chloride 105 (98-107) mmol/L Carbon Dioxide 21 L (22-30) mmol/L Anion Gap 14 mmol/L BUN 13 (7-17) mg/dL Creatinine 0.60 (0.52-1.04) mg/dL Est GFR (CKD-EPI)AfAm >90 (>60 ml/min/1.73 sqM) Est GFR (CKD-EPI)NonAf >90 (>60 ml/min/1.73 sqM) Glucose 106 H (74-99) mg/dL Calcium 9.1 (8.4-10.2) mg/dL Total Bilirubin 0.2 (0.2-1.3) mg/dL AST 16 (14-36) U/L ALT 27 (9-52) U/L Alkaline Phosphatase 102 (38-126) U/L Total Protein 5.6 L (6.3-8.2) g/dL Albumin 3.8 (3.5-5.0) g/dL Amylase 54 (30-110) U/L Lipase 61 (23-300) U/L Urine Color Urine Appearance (Clear) Urine pH (5.0-8.0) Ur Specific [place] (1.001-1.035) Urine Protein (Negative) Urine Glucose (UA) (Negative) Urine Ketones (Negative) Urine Blood (Negative) Urine Nitrite (Negative) Urine Bilirubin (Negative) Urine Urobilinogen (<2.0) mg/dL Ur Leukocyte Esterase (Negative) Urine Opiates Screen (NotDetected) Ur Oxycodone Screen (NotDetected) Urine Methadone Screen (NotDetected) Ur Propoxyphene Screen (NotDetected) Ur Barbiturates Screen (NotDetected) U Tricyclic Antidepress (NotDetected) Ur Phencyclidine Scrn (NotDetected) Ur Amphetamines Screen (NotDetected) U Methamphetamines Scrn (NotDetected) U Benzodiazepines Scrn (NotDetected) Urine Cocaine Screen (NotDetected) U Marijuana (THC) Screen (NotDetected) Serum Alcohol <10 mg/dL 08/30/17 Range/Units 13:20 WBC (3.8-10.6) k/uL RBC (3.80-5.40) m/uL Hgb (11.4-16.0) gm/dL Hct (34.0-46.0) % MCV (80.0-100.0) fL MCH (25.0-35.0) pg MCHC (31.0-37.0) g/dL RDW (11.5-15.5) % Plt Count (150-450) k/uL Neutrophils % % Lymphocytes % % Monocytes % % Eosinophils % % Basophils % % Neutrophils # (1.3-7.7) k/uL Lymphocytes # (1.0-4.8) k/uL Monocytes # (0-1.0) k/uL Eosinophils # (0-0.7) k/uL Basophils # (0-0.2) k/uL Sodium (137-145) mmol/L Potassium (3.5-5.1) mmol/L Chloride (98-107) mmol/L Carbon Dioxide (22-30) mmol/L Anion Gap mmol/L BUN (7-17) mg/dL Creatinine (0.52-1.04) mg/dL Est GFR (CKD-EPI)AfAm (>60 ml/min/1.73 sqM) Est GFR (CKD-EPI)NonAf (>60 ml/min/1.73 sqM) Glucose (74-99) mg/dL Calcium (8.4-10.2) mg/dL Total Bilirubin (0.2-1.3) mg/dL AST (14-36) U/L ALT (9-52) U/L Alkaline Phosphatase (38-126) U/L Total Protein (6.3-8.2) g/dL Albumin (3.5-5.0) g/dL Amylase (30-110) U/L Lipase (23-300) U/L Urine Color Colorless Urine Appearance Clear (Clear) Urine pH 6.0 (5.0-8.0) Ur Specific [place] 1.003 (1.001-1.035) Urine Protein Negative (Negative) Urine Glucose (UA) Negative (Negative) Urine Ketones Negative (Negative) Urine Blood Negative (Negative) Urine Nitrite Negative (Negative) Urine Bilirubin Negative (Negative) Urine Urobilinogen <2.0 (<2.0) mg/dL Ur Leukocyte Esterase Negative (Negative) Urine Opiates Screen Detected H (NotDetected) Ur Oxycodone Screen Not Detected (NotDetected) Urine Methadone Screen Not Detected (NotDetected) Ur Propoxyphene Screen Not Detected (NotDetected) Ur Barbiturates Screen Not Detected (NotDetected) U Tricyclic Antidepress Not Detected (NotDetected) Ur Phencyclidine Scrn Not Detected (NotDetected) Ur Amphetamines Screen Not Detected (NotDetected) U Methamphetamines Scrn Not Detected (NotDetected) U Benzodiazepines Scrn Not Detected (NotDetected) Urine Cocaine Screen Not Detected (NotDetected) U Marijuana (THC) Screen Not Detected (NotDetected) Serum Alcohol mg/dL Disposition Clinical Impression: Fatigue, Dehydration Disposition: HOME SELF-CARE Condition: Stable Instructions: Fatigue (ED) Additional Instructions: Please return to the Emergency Department if symptoms worsen or any other concerns. Is patient prescribed a controlled substance at d/c from ED?: No Referrals: None,Stated [Primary Care Provider] - 1-2 days Time of Disposition: 14:52
[2017-08-30 13:30] LABS: Appearance,Urine Clear (Clear); Bilirubin,Urine Negative (Negative); Blood,Urine Negative (Negative); Color,Urine Colorless; Glucose,Urine (UA) Negative (Negative); Ketones,Urine Negative (Negative); Leukocyte Esterase,Urine Negative (Negative); Nitrite,Urine Negative (Negative); Protein,Urine Negative (Negative); Specific Gravity,Urine 1.003 (1.001-1.035); Urobilinogen,Urine <2.0 mg/dL (<2.0)
[2017-08-30 13:30] LABS: ALT 27 U/L (9-52); AST 16 U/L (14-36); Albumin 3.8 g/dL (3.5-5.0); Alkaline Phosphatase 102 U/L (38-126); Amylase 54 U/L (30-110); Anion Gap 14 mmol/L; Blood Urea Nitrogen 13 mg/dL (7-17); Calcium 9.1 mg/dL (8.4-10.2); Carbon Dioxide 21 mmol/L (22-30); Chloride 105 mmol/L (98-107); Glucose 106 mg/dL (74-99); Lipase 61 U/L (23-300); Potassium 3.7 mmol/L (3.5-5.1); Sodium 140 mmol/L (137-145); Total Bilirubin 0.2 mg/dL (0.2-1.3); Total Protein 5.6 g/dL (6.3-8.2)
[2017-08-30 13:45] LABS: Amphetamine Screen,Urine Not Detected (NotDetected); Barbiturate Screen,Urine Not Detected (NotDetected); Benzodiazepines Screen,Urine Not Detected (NotDetected); Cocaine Screen,Urine Not Detected (NotDetected); Methadone Screen, Urine Not Detected (NotDetected); Opiate Screen,Urine Detected (NotDetected); Oxycodone Screen, Urine Not Detected (NotDetected); Phencyclidine Screen,Urine Not Detected (NotDetected); Tricyclic Antidepressant,Urine Not Detected (NotDetected); Urn Cannabinoid Scrn Not Detected (NotDetected)
== END 2017-08-30 14:57 | disposition home or self-care (01) ==
LOC: EC 12:25
DX: E86.0 Dehydration (principal); R11.0 Nausea; J45.909 Unspecified asthma, uncomplicated; K21.9 Gastro-esophageal reflux disease without esophagitis; E78.5 Hyperlipidemia, unspecified; G40.909 Epilepsy, unspecified, not intractable, without status epilepticus; M19.90 Unspecified osteoarthritis, unspecified site; Z79.01 Long term (current) use of anticoagulants; G43.909 Migraine, unspecified, not intractable, without status migrainosus; F31.9 Bipolar disorder, unspecified; F41.9 Anxiety disorder, unspecified; F43.10 Post-traumatic stress disorder, unspecified; Z86.14 Personal history of Methicillin resistant Staphylococcus aureus infection; Z79.51 Long term (current) use of inhaled steroids; Z79.3 Long term (current) use of hormonal contraceptives; Z79.899 Other long term (current) drug therapy; Z88.1 Allergy status to other antibiotic agents; Z91.013 Allergy to seafood; Z88.8 Allergy status to other drugs, medicaments and biological substances; Z88.6 Allergy status to analgesic agent; Z88.2 Allergy status to sulfonamides
CPT/HCPCS: 36415; 80053; 80306; 80320; 81003; 82150; 83690; 85025; 96360; 96361; 99285

== ENCOUNTER 2017-09-22 15:54 | Emergency (ER) | payer MEDICARE, OTHER ==
[2017-09-22 16:34] VITALS: RESP 18; TEMP 98.3
[2017-09-22] MEDS ORDERED: SODIUM CHLORIDE 0.9% 1,000 ML IV STA (17:22)
[2017-09-22] MEDS ORDERED: METOCLOPRAMIDE 5 MG/ML 2 ML VIAL IVP STA (17:22)
[2017-09-22] MEDS ORDERED: diphenhydrAMINE 50 MG/ML 1 ML VIAL IVP STA (17:22)
[2017-09-22] MEDS ORDERED: KETOROLAC 30 MG/ML 1 ML VIAL IVP STA (17:22)
[2017-09-22] MEDS ORDERED: ORPHENADRINE 30 MG/ML 2 ML VIAL IVP STA (17:24)
--- NOTE | 2017-09-22 17:40 | ED ---
Headache HPI - General Chief Complaint: Headache Stated Complaint: Headache Time Seen by Provider: 09/22/17 16:51 Source: RN notes reviewed, old records reviewed Mode of arrival: ambulatory Limitations: no limitations - History of Present Illness Initial Comments: Patient's 31-year-old female well-known to emergency department for migraine headaches presents today with another migraine headache typical to her previous headaches. She states she's had some nausea and vomiting. Patient relates that she's had no fevers or chills any other symptoms. She reports that her migraines been going on for over a month. Patient states that she is follow-up with his neurologist and cannot get her medication from her neurologist because he did not thought a prior authorization. She reported that she received IM toradol 2 weeks ago with some relief. - Related Data Home Medications Medication Instructions Recorded Confirmed Gemfibrozil [Lopid] 600 mg PO AC-BID 11/22/13 08/30/17 Medroxyprogesterone Acetate 150 mg IM Q84D 11/22/13 08/30/17 [Depo-Provera] rOPINIRole HCL [Requip] 1 mg PO DAILY 11/22/13 08/30/17 Montelukast [Singulair] 10 mg PO HS 10/07/14 08/30/17 Pentosan Polysulfate Sodium 100 mg PO BID 02/10/15 08/30/17 [Elmiron] Pantoprazole Sodium [Protonix] 40 mg PO BID 04/20/15 08/30/17 Beclomethasone Dipropionate [Qvar 2 puff INHALATION RT-BID PRN 06/07/15 08/30/17 80 mcg/puff] Prazosin HCl [Minipress] 2 mg PO HS 01/04/16 08/30/17 Gabapentin 600 mg PO BID 06/14/16 08/30/17 HYDROcodone/APAP 7.5-325MG [[place] 1 tab PO TID PRN 07/20/16 08/30/17 7.5-325] Hydrochlorothiazide [Hydrodiuril] 25 mg PO DAILY 07/20/16 08/30/17 Paliperidone IM Pt Own [Invega 117 mg IM Q28D 07/20/16 08/30/17 Sustenna] carBAMazepine [TEGretol XR] 200 mg PO HS 07/20/16 08/30/17 Amantadine HCl [Symmetrel] 100 mg PO BID 11/21/16 08/30/17 Ondansetron [Zofran ODT] 8 mg PO Q8HR PRN 11/21/16 08/30/17 carBAMazepine [TEGretol XR] 100 mg PO QAM 11/30/16 08/30/17 tiZANidine [Zanaflex] 4 mg PO Q6H PRN 11/30/16 08/30/17 Rizatriptan Benzoate [Maxalt] 10 mg PO DAILY PRN 12/12/16 08/30/17 Tiotropium [place] [Spiriva 2 puff INHALATION RT-DAILY PRN 12/12/16 08/30/17 Respimat] carBAMazepine [TEGretol XR] 200 mg PO BID 01/03/17 08/30/17 rOPINIRole HCL [Requip] 2 mg PO HS 02/09/17 08/30/17 Dicyclomine [Bentyl] 20 mg PO BID 07/09/17 08/30/17 Eletriptan HBr [Relpax] 40 mg PO DAILY PRN 07/09/17 08/30/17 QUEtiapine [SEROquel] 100 mg PO HS 07/09/17 08/30/17 Acyclovir 400 mg PO DAILY PRN 08/30/17 08/30/17 Memantine [Namenda] 10 mg PO BID 08/30/17 08/30/17 Allergies Allergy/AdvReac Type Severity Reaction Status Date / Time azithromycin Allergy Rash/Hives Verified 09/22/17 16:34 [From Zithromax Z-Mehrdad] cimetidine [From Tagamet] Allergy Rash/Hives Verified 09/22/17 16:34 ether [Ether] Allergy Anaphylaxis Verified 09/22/17 16:34 Fish Containing Products Allergy Anaphylaxis Verified 09/22/17 16:34 [Fish] ketorolac tromethamine Allergy Rash/Hives Verified 09/22/17 16:34 [From Toradol] ziprasidone HCl [From Geodon] Allergy Extrapyramidal Verified 09/22/17 16:34 Symptoms fluphenazine HCl AdvReac Extrapyramidal Verified 09/22/17 16:34 [From Prolixin] Symptoms haloperidol [From Haldol] AdvReac Extrapyramidal Verified 09/22/17 16:34 Symptoms Sulfa (Sulfonamide AdvReac Nausea & Verified 09/22/17 16:34 Antibiotics) Vomiting Review of Systems ROS Statement: Those systems with pertinent positive or pertinent negative responses have been documented in the HPI. ROS Other: All systems not noted in ROS Statement are negative. Past Medical History Past Medical History: Asthma, GERD/Reflux, Hyperlipidemia, Musculoskeletal Disorder, Neurologic Disorder, Osteoarthritis (OA), Seizure Disorder Additional Past Medical History / Comment(s): RSD-DERIC FEET, INTERSTITIAL CYSTITIS, BRONCHITIS, HEMORRHOIDS,MIGRAINES, INSOMNIA. VERTIGO, last seizure 4 years ago History of Any Multi-Drug Resistant Organisms: MRSA Date of last positivie culture/infection: 04/20/15 MDRO Source:: Left Axilla Past Surgical History: Adenoidectomy, Back Surgery, Cholecystectomy, Orthopedic Surgery, Tonsillectomy Additional Past Surgical History / Comment(s): bilateral foot surgery d/t rsd, numerous pain clinic procedures, nerve stimulator in back to tx RSD placed in Nov 11 2015 Past Anesthesia/Blood Transfusion Reactions: Previous Problems w/ Anesthesia Additional Past Anesthesia/Blood Transfusion Reaction / Comment(s): Pt recieved blood when she was 2 yrs old after tonsillectomy. WHEN BABY HEART STOPPED TWICE- PT STATED SHE WAS ALLERGIC TO ETHER. Past Psychological History: Anxiety, Bipolar, Depression, PTSD Smoking Status: Never smoker Past Alcohol Use History: None Reported Past Drug Use History: Marijuana - Past Family History Father History Unknown: Yes Mother Family Medical History: Cancer, CVA/TIA, Diabetes Mellitus, Myocardial Infarction ([place]) Additional Family Medical History / Comment(s): Mother has had 5 CVAs, 3 MIs and UTERINE CANCER General Exam - General Exam Comments Initial Comments: Well appearing 31 year old female, no distress. Limitations: no limitations General appearance: alert, in no apparent distress Head exam: Present: atraumatic, normocephalic, normal inspection Eye exam: Present: normal appearance, PERRL, EOMI. Absent: scleral icterus, conjunctival injection, periorbital swelling ENT exam: Present: normal exam, mucous membranes moist Neck exam: Present: normal inspection. Absent: tenderness, meningismus, lymphadenopathy Respiratory exam: Present: normal lung sounds bilaterally. Absent: respiratory distress, wheezes, rales, rhonchi, stridor Cardiovascular Exam: Present: regular rate, normal rhythm, normal heart sounds. Absent: systolic murmur, diastolic murmur, rubs, gallop, clicks Extremities exam: Present: normal inspection, full ROM, normal capillary refill. Absent: tenderness, pedal edema, joint swelling, calf tenderness Back exam: Present: normal inspection Neurological exam: Present: alert, oriented X3, CN II-XII intact Expanded Patient oriented to: Present: person, place, time Speech: Present: fluid speech Cranial nerves: EOM's Intact: Normal Cerebellar function: Finger to Nose: Normal Upper motor neuron: Pronator Drift: Normal Sensory exam: Upper Extremity Light Touch: Normal, Lower Extremity Light Touch: Normal Motor strength exam: RUE: 5, LUE: 5, RLE: 5, LLE: 5 Eye Response: (4) open spontaneously Motor Response: (6) obeys commands Verbal Response: (5) oriented [place] Total: 15 Psychiatric exam: Present: normal affect, normal mood Skin exam: Present: warm, dry, intact, normal color. Absent: rash Course Vital Signs 09/22/17 09/22/17 16:31 19:02 Temperature 98.3 F Pulse Rate 119 H 96 Respiratory 18 18 Rate Blood Pressure 120/83 139/78 O2 Sat by Pulse 96 99 Oximetry Medical Decision Making - Medical Decision Making Patient's 31-year-old female well-known to emergency department for migraine headaches presents today with another migraine headache typical to her previous headaches. She states she's had some nausea and vomiting. Patient relates that she's had no fevers or chills any other symptoms. She reports that her migraines been going on for over a month. She has no neurological deficits, and was given migraine cocktail. She reports good relief. At this time patient will be discharged with PCP and neuro follow up, all question answered and return parameters discussed. Disposition Clinical Impression: Migraine Disposition: HOME SELF-CARE Condition: Good Instructions: Acute Headache (ED) Additional Instructions: Follow-up with primary care physician. Return to the emergency department if any alarming signs or symptoms occur. Is patient prescribed a controlled substance at d/c from ED?: No When asked, does pt state using other controlled substances?: No If prescribed controlled substance>3 days was MAPS reviewed?: No If opioid is for acute pain is fill amount 7 days or less?: No If Rx opioid, was Start Talking consent form obtained?: No Referrals: None,Stated [Primary Care Provider] - 1-2 days Time of Disposition: 18:36
[2017-09-22] MEDS ORDERED: MORPHINE SULFATE 2 MG/ML SYRINGE IVP ONE (18:36)
[2017-09-22 19:03] VITALS: BP 139/78; PULSE 96
== END 2017-09-22 19:09 | disposition home or self-care (01) ==
LOC: EC 15:54
DX: G43.909 Migraine, unspecified, not intractable, without status migrainosus (principal); R40.2142 Coma scale, eyes open, spontaneous, at arrival to emergency department; R40.2252 Coma scale, best verbal response, oriented, at arrival to emergency department; R40.2362 Coma scale, best motor response, obeys commands, at arrival to emergency department; J45.909 Unspecified asthma, uncomplicated; K21.9 Gastro-esophageal reflux disease without esophagitis; E78.5 Hyperlipidemia, unspecified; G40.909 Epilepsy, unspecified, not intractable, without status epilepticus; F31.9 Bipolar disorder, unspecified; F43.10 Post-traumatic stress disorder, unspecified; Z86.14 Personal history of Methicillin resistant Staphylococcus aureus infection; Z79.890 Hormone replacement therapy; Z79.899 Other long term (current) drug therapy; Z88.1 Allergy status to other antibiotic agents; Z88.8 Allergy status to other drugs, medicaments and biological substances; Z91.048 Other nonmedicinal substance allergy status; Z91.013 Allergy to seafood; Z88.6 Allergy status to analgesic agent; Z88.2 Allergy status to sulfonamides
CPT/HCPCS: 99284; 96374; 96375 ×4; 96361; J1200; J2360; J2765; J1885; J2270

== ENCOUNTER 2017-10-01 20:11 | Emergency (ER) | payer MEDICARE, OTHER ==
[2017-10-01] MEDS ORDERED: SODIUM CHLORIDE 0.9% 1,000 ML IV STA (20:43)
[2017-10-01] MEDS ORDERED: diphenhydrAMINE 50 MG/ML 1 ML VIAL IVP STA (20:43)
[2017-10-01] MEDS ORDERED: KETOROLAC 30 MG/ML 1 ML VIAL IVP STA (20:43)
[2017-10-01] MEDS ORDERED: METOCLOPRAMIDE 5 MG/ML 2 ML VIAL IVP STA (20:43)
--- NOTE | 2017-10-01 21:24 | ED ---
General Adult HPI - General Chief complaint: Headache Stated complaint: migraine Time Seen by Provider: 10/01/17 20:32 Source: patient, RN notes reviewed Mode of arrival: ambulatory Limitations: no limitations - History of Present Illness Initial comments: 31-year-old female presents to the emergency department for a chief complaint of migraine times one month. Patient states this migraine is consistent with previous migraines. Patient states she gets a Toradol shot every [address] Guzman. Patient states pain worsened today's if she came to the emergency department. Patient denies any recent injuries. Patient states she is sensitive to light and sound. Patient describes the pain as a left-sided headache. Patient has no other complaints at this time including shortness of breath, chest pain, abdominal pain, nausea or vomiting, headache, or visual changes. - Related Data Home Medications Medication Instructions Recorded Confirmed Gemfibrozil [Lopid] 600 mg PO AC-BID 11/22/13 10/01/17 Medroxyprogesterone Acetate 150 mg IM Q84D 11/22/13 10/01/17 [Depo-Provera] rOPINIRole HCL [Requip] 1 mg PO DAILY 11/22/13 10/01/17 Montelukast [Singulair] 10 mg PO HS 10/07/14 10/01/17 Pentosan Polysulfate Sodium 100 mg PO BID 02/10/15 10/01/17 [Elmiron] Pantoprazole Sodium [Protonix] 40 mg PO BID 04/20/15 10/01/17 Beclomethasone Dipropionate [Qvar 2 puff INHALATION RT-BID PRN 06/07/15 10/01/17 80 mcg/puff] Prazosin HCl [Minipress] 2 mg PO HS 01/04/16 10/01/17 Gabapentin 600 mg PO BID 06/14/16 10/01/17 HYDROcodone/APAP 7.5-325MG [[place] 1 tab PO TID PRN 07/20/16 10/01/17 7.5-325] Hydrochlorothiazide [Hydrodiuril] 25 mg PO DAILY 07/20/16 10/01/17 Paliperidone IM Pt Own [Invega 117 mg IM Q28D 07/20/16 10/01/17 Sustenna] carBAMazepine [TEGretol XR] 200 mg PO HS 07/20/16 10/01/17 Amantadine HCl [Symmetrel] 100 mg PO BID 11/21/16 10/01/17 Ondansetron [Zofran ODT] 8 mg PO Q8HR PRN 11/21/16 10/01/17 carBAMazepine [TEGretol XR] 100 mg PO QAM 11/30/16 10/01/17 tiZANidine [Zanaflex] 4 mg PO TID PRN 11/30/16 10/01/17 Tiotropium [place] [Spiriva 2 puff INHALATION RT-DAILY PRN 12/12/16 10/01/17 Respimat] carBAMazepine [TEGretol XR] 200 mg PO BID 01/03/17 10/01/17 rOPINIRole HCL [Requip] 2 mg PO HS 02/09/17 10/01/17 Dicyclomine [Bentyl] 20 mg PO TID 07/09/17 10/01/17 QUEtiapine [SEROquel] 100 mg PO HS 07/09/17 10/01/17 Acyclovir 400 mg PO DAILY PRN 08/30/17 10/01/17 Previous Rx's Medication Instructions Recorded Acetaminophen [Tylenol] 500 mg PO Q4-6H PRN #20 tab 10/01/17 Allergies Allergy/AdvReac Type Severity Reaction Status Date / Time azithromycin Allergy Rash/Hives Verified 10/01/17 20:41 [From Zithromax Z-Mehrdad] cimetidine [From Tagamet] Allergy Rash/Hives Verified 10/01/17 20:41 ether [Ether] Allergy Anaphylaxis Verified 10/01/17 20:41 Fish Containing Products Allergy Anaphylaxis Verified 10/01/17 20:41 [Fish] ketorolac tromethamine Allergy Rash/Hives Verified 10/01/17 20:41 [From Toradol] ziprasidone HCl [From Geodon] Allergy Extrapyramidal Verified 10/01/17 20:41 Symptoms fluphenazine HCl AdvReac Extrapyramidal Verified 10/01/17 20:41 [From Prolixin] Symptoms haloperidol [From Haldol] AdvReac Extrapyramidal Verified 10/01/17 20:41 Symptoms Sulfa (Sulfonamide AdvReac Nausea & Verified 10/01/17 20:41 Antibiotics) Vomiting Review of Systems ROS Statement: Those systems with pertinent positive or pertinent negative responses have been documented in the HPI. ROS Other: All systems not noted in ROS Statement are negative. Past Medical History Past Medical History: Asthma, GERD/Reflux, Hyperlipidemia, Musculoskeletal Disorder, Neurologic Disorder, Osteoarthritis (OA), Seizure Disorder Additional Past Medical History / Comment(s): RSD-DERIC FEET, INTERSTITIAL CYSTITIS, BRONCHITIS, HEMORRHOIDS,MIGRAINES, INSOMNIA. VERTIGO, last seizure 4 years ago History of Any Multi-Drug Resistant Organisms: MRSA Date of last positivie culture/infection: 04/20/15 MDRO Source:: Left Axilla Past Surgical History: Adenoidectomy, Back Surgery, Cholecystectomy, Orthopedic Surgery, Tonsillectomy Additional Past Surgical History / Comment(s): bilateral foot surgery d/t rsd, numerous pain clinic procedures, nerve stimulator in back to tx RSD placed in Nov 11 2015 Past Anesthesia/Blood Transfusion Reactions: Previous Problems w/ Anesthesia Additional Past Anesthesia/Blood Transfusion Reaction / Comment(s): Pt recieved blood when she was 2 yrs old after tonsillectomy. WHEN BABY HEART STOPPED TWICE- PT STATED SHE WAS ALLERGIC TO ETHER. Past Psychological History: Anxiety, Bipolar, Depression, PTSD Smoking Status: Never smoker Past Alcohol Use History: None Reported Past Drug Use History: Marijuana - Past Family History Father History Unknown: Yes Mother Family Medical History: Cancer, CVA/TIA, Diabetes Mellitus, Myocardial Infarction ([place]) Additional Family Medical History / Comment(s): Mother has had 5 CVAs, 3 MIs and UTERINE CANCER General Exam Limitations: no limitations General appearance: alert, in no apparent distress Head exam: Present: atraumatic, normocephalic, normal inspection Eye exam: Present: normal appearance, PERRL, EOMI. Absent: scleral icterus, conjunctival injection, nystagmus, periorbital swelling Pupils: Present: normal accommodation ENT exam: Present: normal exam, mucous membranes moist Neck exam: Present: normal inspection, full ROM. Absent: tenderness, meningismus, lymphadenopathy Respiratory exam: Present: normal lung sounds bilaterally. Absent: respiratory distress, wheezes, rales, rhonchi, stridor Cardiovascular Exam: Present: regular rate, normal rhythm, normal heart sounds. Absent: systolic murmur, diastolic murmur, rubs, gallop, clicks External exam: Present: swelling Neurological exam: Present: alert, oriented X3, CN II-XII intact, normal gait, other (GCS 15, negative arm drift). Absent: motor sensory deficit Psychiatric exam: Present: normal affect, normal mood Course Vital Signs 10/01/17 10/01/17 20:14 21:45 Temperature 98.2 F Pulse Rate 111 H 106 H Respiratory 19 18 Rate Blood Pressure 138/93 130/60 O2 Sat by Pulse 96 98 Oximetry Medical Decision Making - Medical Decision Making 31-year-old female presents to the emergency department for a chief complaint of migraine times one month. This is consistent with previous migraines. Patient is usually treated with by weekly Toradol shots outpatient. On presentation to the ER no focal neuro deficits. GCS 15. Patient was given migraine cocktail and feels much better. Patient is ready to go home. Patient will follow up outpatient for migraines. Patient aware she can return to the emergency Department if she has any worsening symptoms. Patient requests tylenol prescription for pain. Disposition Clinical Impression: Migraine Disposition: HOME SELF-CARE Condition: Good Instructions: Migraine Headache (ED) Additional Instructions: Please take Tylenol for pain. Follow-up with primary care in 1-2 days. Return to the emergency department if you have any worsening symptoms. Prescriptions: Acetaminophen [Tylenol] 500 mg PO Q4-6H PRN #20 tab PRN Reason: Pain Is patient prescribed a controlled substance at d/c from ED?: No Referrals: Willian Faith DO [STAFF PHYSICIAN] - 1-2 days Time of Disposition: 22:20
[2017-10-01 21:46] VITALS: RESP 18
[2017-10-01] MEDS ORDERED: MORPHINE SULFATE 2 MG/ML SYRINGE IVP STA (21:55)
[2017-10-01 22:35] VITALS: BP 124/65; PULSE 99; TEMP 98.5
== END 2017-10-01 22:35 | disposition home or self-care (01) ==
LOC: EC 20:11
DX: G43.909 Migraine, unspecified, not intractable, without status migrainosus (principal); R40.2412 Glasgow coma scale score 13-15, at arrival to emergency department; J45.909 Unspecified asthma, uncomplicated; K21.9 Gastro-esophageal reflux disease without esophagitis; E78.5 Hyperlipidemia, unspecified; M19.90 Unspecified osteoarthritis, unspecified site; G40.909 Epilepsy, unspecified, not intractable, without status epilepticus; F41.9 Anxiety disorder, unspecified; F31.9 Bipolar disorder, unspecified; F43.10 Post-traumatic stress disorder, unspecified; Z86.14 Personal history of Methicillin resistant Staphylococcus aureus infection; Z90.49 Acquired absence of other specified parts of digestive tract; Z98.890 Other specified postprocedural states; Z79.899 Other long term (current) drug therapy; Z88.1 Allergy status to other antibiotic agents; Z88.2 Allergy status to sulfonamides; Z88.6 Allergy status to analgesic agent; Z88.8 Allergy status to other drugs, medicaments and biological substances; Z91.013 Allergy to seafood
CPT/HCPCS: 99283; 96374; 96375 ×3; 96361; J1200; J2765; J1885; J2270

== ENCOUNTER 2017-10-17 20:11 | Emergency (ER) | payer MEDICARE, OTHER ==
[2017-10-17 20:41] VITALS: BP 137/86; PULSE 94; RESP 18; TEMP 98.4
--- NOTE | 2017-10-17 22:18 | ED ---
Headache HPI - General Chief Complaint: Headache Stated Complaint: Headache Time Seen by Provider: 10/17/17 21:34 Mode of arrival: ambulatory Limitations: no limitations - History of Present Illness Initial Comments: This patient is a 31-year-old woman with history of chronic migraine headaches, who complains of having weeks of intermittent headache that she states is typical of her usual headaches. The pain is aching, bifrontal, constant when it comes on last for days then recurring over the past 4 weeks. She states she saw her physician who gave her Toradol shot which helped but then the symptoms recurred. He denies any fever or chills, neck stiffness, or any neurologic complaints. MD Complaint: "migraine" -: week(s) Onset Description: gradual Location: right, left, frontal Severity: moderate Quality: aching Consistency: constant Improves With: nothing Worsens With: none Associated Symptoms: sensitivity to sound Treatments Prior to Arrival: Ibuprofen - Related Data On Hormonal Control: No Home Medications Medication Instructions Recorded Confirmed Gemfibrozil [Lopid] 600 mg PO AC-BID 11/22/13 10/17/17 Medroxyprogesterone Acetate 150 mg IM Q84D 11/22/13 10/17/17 [Depo-Provera] rOPINIRole HCL [Requip] 1 mg PO DAILY 11/22/13 10/17/17 Montelukast [Singulair] 10 mg PO HS 10/07/14 10/17/17 Pentosan Polysulfate Sodium 100 mg PO BID 02/10/15 10/17/17 [Elmiron] Pantoprazole Sodium [Protonix] 40 mg PO BID 04/20/15 10/17/17 Beclomethasone Dipropionate [Qvar 2 puff INHALATION RT-BID PRN 06/07/15 10/17/17 80 mcg/puff] Prazosin HCl [Minipress] 2 mg PO HS 01/04/16 10/17/17 Gabapentin 600 mg PO BID 06/14/16 10/17/17 HYDROcodone/APAP 7.5-325MG [[place] 1 tab PO TID PRN 07/20/16 10/17/17 7.5-325] Hydrochlorothiazide [Hydrodiuril] 25 mg PO DAILY 07/20/16 10/17/17 Paliperidone IM Pt Own [Invega 117 mg IM Q28D 07/20/16 10/17/17 Sustenna] carBAMazepine [TEGretol XR] 200 mg PO HS 07/20/16 10/17/17 Amantadine HCl [Symmetrel] 100 mg PO BID 11/21/16 10/17/17 Ondansetron [Zofran ODT] 8 mg PO Q8HR PRN 11/21/16 10/17/17 carBAMazepine [TEGretol XR] 100 mg PO QAM 11/30/16 10/17/17 tiZANidine [Zanaflex] 4 mg PO TID PRN 11/30/16 10/17/17 Tiotropium [place] [Spiriva 2 puff INHALATION RT-DAILY PRN 12/12/16 10/17/17 Respimat] carBAMazepine [TEGretol XR] 200 mg PO BID 01/03/17 10/17/17 rOPINIRole HCL [Requip] 2 mg PO HS 02/09/17 10/17/17 Dicyclomine [Bentyl] 20 mg PO TID 07/09/17 10/17/17 QUEtiapine [SEROquel] 100 mg PO HS 07/09/17 10/17/17 Acyclovir 400 mg PO DAILY PRN 08/30/17 10/17/17 Allergies Allergy/AdvReac Type Severity Reaction Status Date / Time azithromycin Allergy Rash/Hives Verified 10/17/17 21:41 [From Zithromax Z-Mehrdad] cimetidine [From Tagamet] Allergy Rash/Hives Verified 10/17/17 21:41 ether [Ether] Allergy Anaphylaxis Verified 10/17/17 21:41 Fish Containing Products Allergy Anaphylaxis Verified 10/17/17 21:41 [Fish] ketorolac tromethamine Allergy Rash/Hives Verified 10/17/17 21:41 [From Toradol] ziprasidone HCl [From Geodon] Allergy Extrapyramidal Verified 10/17/17 21:41 Symptoms fluphenazine HCl AdvReac Extrapyramidal Verified 10/17/17 21:41 [From Prolixin] Symptoms haloperidol [From Haldol] AdvReac Extrapyramidal Verified 10/17/17 21:41 Symptoms Sulfa (Sulfonamide AdvReac Nausea & Verified 10/17/17 21:41 Antibiotics) Vomiting Review of Systems ROS Statement: Those systems with pertinent positive or pertinent negative responses have been documented in the HPI. ROS Other: All systems not noted in ROS Statement are negative. Constitutional: Denies: fever, chills, weakness Eyes: Denies: eye pain, vision change ENT: Denies: ear pain Respiratory: Denies: cough Gastrointestinal: Reports: nausea. Denies: abdominal pain, vomiting Neurological: Reports: headache. Denies: weakness, numbness, paresthesias, confusion, abnormal gait Past Medical History Past Medical History: Asthma, GERD/Reflux, Hyperlipidemia, Musculoskeletal Disorder, Neurologic Disorder, Osteoarthritis (OA), Seizure Disorder Additional Past Medical History / Comment(s): RSD-DERIC FEET, INTERSTITIAL CYSTITIS, BRONCHITIS, HEMORRHOIDS,MIGRAINES, INSOMNIA. VERTIGO, last seizure 4 years ago History of Any Multi-Drug Resistant Organisms: MRSA Date of last positivie culture/infection: 04/20/15 MDRO Source:: Left Axilla Past Surgical History: Adenoidectomy, Back Surgery, Cholecystectomy, Orthopedic Surgery, Tonsillectomy Additional Past Surgical History / Comment(s): bilateral foot surgery d/t rsd, numerous pain clinic procedures, nerve stimulator in back to tx RSD placed in Nov 11 2015 Past Anesthesia/Blood Transfusion Reactions: Previous Problems w/ Anesthesia Additional Past Anesthesia/Blood Transfusion Reaction / Comment(s): Pt recieved blood when she was 2 yrs old after tonsillectomy. WHEN BABY HEART STOPPED TWICE- PT STATED SHE WAS ALLERGIC TO ETHER. Past Psychological History: Anxiety, Bipolar, Depression, PTSD Smoking Status: Never smoker Past Alcohol Use History: None Reported Past Drug Use History: Marijuana - Past Family History Father History Unknown: Yes Mother Family Medical History: Cancer, CVA/TIA, Diabetes Mellitus, Myocardial Infarction ([place]) Additional Family Medical History / Comment(s): Mother has had 5 CVAs, 3 MIs and UTERINE CANCER General Exam Limitations: no limitations General appearance: alert, in no apparent distress Head exam: Present: atraumatic, normocephalic Eye exam: Present: normal appearance, PERRL, EOMI. Absent: scleral icterus, conjunctival injection ENT exam: Present: normal oropharynx Neck exam: Present: normal inspection, full ROM. Absent: meningismus Respiratory exam: Present: normal lung sounds bilaterally. Absent: respiratory distress, wheezes, rales, rhonchi, stridor Cardiovascular Exam: Present: regular rate, normal rhythm, normal heart sounds. Absent: systolic murmur, diastolic murmur, rubs, gallop Neurological exam: Present: alert, oriented X3, CN II-XII intact. Absent: motor sensory deficit Skin exam: Present: warm, dry, intact, normal color. Absent: rash Course Vital Signs 10/17/17 20:39 Temperature 98.4 F Pulse Rate 94 Respiratory 18 Rate Blood Pressure 137/86 O2 Sat by Pulse 97 Oximetry Disposition Clinical Impression: Migraine Disposition: HOME SELF-CARE Condition: Good Instructions: Migraine Headache (ED) Referrals: Gustavo Chappell MD [Primary Care Provider] - 1-2 days Time of Disposition: 23:20
[2017-10-17] MEDS ORDERED: SODIUM CHLORIDE 0.9% 1,000 ML IV ONE (22:19)
[2017-10-17] MEDS ORDERED: KETOROLAC 30 MG/ML 1 ML VIAL IVP STA (22:19)
[2017-10-17] MEDS ORDERED: METOCLOPRAMIDE 5 MG/ML 2 ML VIAL IVP STA (22:19)
[2017-10-17] MEDS ORDERED: diphenhydrAMINE 50 MG/ML 1 ML VIAL IVP STA (22:19)
[2017-10-17] MEDS ORDERED: SUMAtriptan SUCCINATE 6 MG/0.5 ML VIAL SQ ONE (23:58)
== END 2017-10-18 00:09 | disposition home or self-care (01) ==
LOC: EC 20:11
DX: G43.909 Migraine, unspecified, not intractable, without status migrainosus (principal); J45.909 Unspecified asthma, uncomplicated; E78.5 Hyperlipidemia, unspecified; N30.10 Interstitial cystitis (chronic) without hematuria; K21.9 Gastro-esophageal reflux disease without esophagitis; G40.909 Epilepsy, unspecified, not intractable, without status epilepticus; F31.9 Bipolar disorder, unspecified; F41.9 Anxiety disorder, unspecified; Z79.3 Long term (current) use of hormonal contraceptives; Z79.899 Other long term (current) drug therapy; Z88.1 Allergy status to other antibiotic agents; Z88.2 Allergy status to sulfonamides; Z88.6 Allergy status to analgesic agent; Z88.8 Allergy status to other drugs, medicaments and biological substances; Z91.013 Allergy to seafood; Z91.048 Other nonmedicinal substance allergy status; Z86.14 Personal history of Methicillin resistant Staphylococcus aureus infection
CPT/HCPCS: 99283; 96374; 96375 ×2; 96361; J3030; J1200; J2765; J1885

== ENCOUNTER 2017-11-06 00:01 | Observation (INO) | payer MEDICARE, OTHER ==
[2017-11-06] MEDS ORDERED: KETOROLAC 30 MG/ML 1 ML VIAL IVP STA (01:43)
[2017-11-06] MEDS ORDERED: diphenhydrAMINE 50 MG/ML 1 ML VIAL IVP STA (01:43)
[2017-11-06] MEDS ORDERED: SODIUM CHLORIDE 0.9% 1,000 ML IV STA (01:43)
[2017-11-06] MEDS ORDERED: METOCLOPRAMIDE 5 MG/ML 2 ML VIAL IVP STA (01:43)
--- NOTE | 2017-11-06 02:32 | ED ---
General Adult HPI - General Chief complaint: Headache Stated complaint: vomiting,migraine Source: patient Mode of arrival: ambulatory Limitations: no limitations - History of Present Illness Initial comments: Dictation was produced using [employer] dictation software. please excuse any grammatical, word or spelling errors. Chief Complaint: 31-year-old female with past medical history of chronic pain syndrome, chronic migraines presents with headache 3 days. History of Present Illness: Patient is a 31-year-old female with chronic pain, chronic migraines presents with headache 3 days. Patient states his headache is consistent with her usual chronic migraine headaches. She does state she takes medications for this. She states that she has a neurologist that prescribes her antiemetic medications. Denies any constitutional symptoms. Patient localizes the headache to the frontotemporal area. Denies any neurologic deficits. Her ports that the pain so bad that she can't sleep and she is having associated nausea and vomiting. The ROS documented in this emergency department record has been reviewed and confirmed by me. Those systems with pertinent positive or negative responses have been documented in the HPI. All other systems are other negative and/or noncontributory. - Related Data Home Medications Medication Instructions Recorded Confirmed Gemfibrozil [Lopid] 600 mg PO AC-BID 11/22/13 10/17/17 Medroxyprogesterone Acetate 150 mg IM Q84D 11/22/13 10/17/17 [Depo-Provera] rOPINIRole HCL [Requip] 1 mg PO DAILY 11/22/13 10/17/17 Montelukast [Singulair] 10 mg PO HS 10/07/14 10/17/17 Pentosan Polysulfate Sodium 100 mg PO BID 02/10/15 10/17/17 [Elmiron] Pantoprazole Sodium [Protonix] 40 mg PO BID 04/20/15 10/17/17 Beclomethasone Dipropionate [Qvar 2 puff INHALATION RT-BID PRN 06/07/15 10/17/17 80 mcg/puff] Prazosin HCl [Minipress] 2 mg PO HS 01/04/16 10/17/17 Gabapentin 600 mg PO BID 06/14/16 10/17/17 HYDROcodone/APAP 7.5-325MG [[place] 1 tab PO TID PRN 07/20/16 10/17/17 7.5-325] Hydrochlorothiazide [Hydrodiuril] 25 mg PO DAILY 07/20/16 10/17/17 Paliperidone IM Pt Own [Invega 117 mg IM Q28D 07/20/16 10/17/17 Sustenna] carBAMazepine [TEGretol XR] 200 mg PO HS 07/20/16 10/17/17 Amantadine HCl [Symmetrel] 100 mg PO BID 11/21/16 10/17/17 Ondansetron [Zofran ODT] 8 mg PO Q8HR PRN 11/21/16 10/17/17 carBAMazepine [TEGretol XR] 100 mg PO QAM 11/30/16 10/17/17 tiZANidine [Zanaflex] 4 mg PO TID PRN 11/30/16 10/17/17 Tiotropium [place] [Spiriva 2 puff INHALATION RT-DAILY PRN 12/12/16 10/17/17 Respimat] carBAMazepine [TEGretol XR] 200 mg PO BID 01/03/17 10/17/17 rOPINIRole HCL [Requip] 2 mg PO HS 02/09/17 10/17/17 Dicyclomine [Bentyl] 20 mg PO TID 07/09/17 10/17/17 QUEtiapine [SEROquel] 100 mg PO HS 07/09/17 10/17/17 Acyclovir 400 mg PO DAILY PRN 08/30/17 10/17/17 Allergies Allergy/AdvReac Type Severity Reaction Status Date / Time azithromycin Allergy Rash/Hives Verified 11/06/17 00:31 [From Zithromax Z-Mehrdad] cimetidine [From Tagamet] Allergy Rash/Hives Verified 11/06/17 00:31 ether [Ether] Allergy Anaphylaxis Verified 11/06/17 00:31 Fish Containing Products Allergy Anaphylaxis Verified 11/06/17 00:31 [Fish] ketorolac tromethamine Allergy Rash/Hives Verified 11/06/17 00:31 [From Toradol] ziprasidone HCl [From Geodon] Allergy Extrapyramidal Verified 11/06/17 00:31 Symptoms fluphenazine HCl AdvReac Extrapyramidal Verified 11/06/17 00:31 [From Prolixin] Symptoms haloperidol [From Haldol] AdvReac Extrapyramidal Verified 11/06/17 00:31 Symptoms Sulfa (Sulfonamide AdvReac Nausea & Verified 11/06/17 00:31 Antibiotics) Vomiting Review of Systems ROS Statement: Those systems with pertinent positive or pertinent negative responses have been documented in the HPI. ROS Other: All systems not noted in ROS Statement are negative. Past Medical History Past Medical History: Asthma, GERD/Reflux, Hyperlipidemia, Musculoskeletal Disorder, Neurologic Disorder, Osteoarthritis (OA), Seizure Disorder Additional Past Medical History / Comment(s): RSD-DERIC FEET, INTERSTITIAL CYSTITIS, BRONCHITIS, HEMORRHOIDS,MIGRAINES, INSOMNIA. VERTIGO, last seizure 4 years ago History of Any Multi-Drug Resistant Organisms: MRSA Date of last positivie culture/infection: 04/20/15 MDRO Source:: Left Axilla Past Surgical History: Adenoidectomy, Back Surgery, Cholecystectomy, Orthopedic Surgery, Tonsillectomy Additional Past Surgical History / Comment(s): bilateral foot surgery d/t rsd, numerous pain clinic procedures, nerve stimulator in back to tx RSD placed in Nov 11 2015 Past Anesthesia/Blood Transfusion Reactions: Previous Problems w/ Anesthesia Additional Past Anesthesia/Blood Transfusion Reaction / Comment(s): Pt recieved blood when she was 2 yrs old after tonsillectomy. WHEN BABY HEART STOPPED TWICE- PT STATED SHE WAS ALLERGIC TO ETHER. Past Psychological History: Anxiety, Bipolar, Depression, PTSD Smoking Status: Never smoker Past Alcohol Use History: None Reported Past Drug Use History: Marijuana - Past Family History Father History Unknown: Yes Mother Family Medical History: Cancer, CVA/TIA, Diabetes Mellitus, Myocardial Infarction ([place]) Additional Family Medical History / Comment(s): Mother has had 5 CVAs, 3 MIs and UTERINE CANCER General Exam - General Exam Comments Initial Comments: PHYSICAL EXAM: General Impression: Alert and oriented x3, not in acute distress HEENT: Normocephalic atraumatic, extra-ocular movements intact, pupils equal and reactive to light bilaterally, mucous membranes moist. Cardiovascular: Heart regular rate and rhythm, S1&S2 audible, no murmurs, rubs or gallops Chest: Lungs clear to auscultation bilaterally, no rhonchi, no wheeze, no rales Abdomen: Bowel sounds present, abdomen soft, non-tender, non-distended, no organomegaly Musculoskeletal: Pulses present and equal in all extremities, no peripheral edema Motor: Power 5/5 bilaterally, no focal deficits noted Neurological: CN II-XII grossly intact, no focal motor or sensory deficits noted Skin: Intact with no visualized rashes Psych: Normal affect and mood Limitations: no limitations Course Vital Signs 11/06/17 11/06/17 11/06/17 00:28 02:27 03:11 Temperature 98.7 F Pulse Rate 95 96 89 Respiratory 18 16 18 Rate Blood Pressure 114/80 138/82 136/91 O2 Sat by Pulse 95 99 100 Oximetry 11/06/17 03:45 Temperature Pulse Rate 89 Respiratory 18 Rate Blood Pressure 125/65 O2 Sat by Pulse 97 Oximetry Medical Decision Making - Medical Decision Making ED course: 31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 Vital signs upon arrival are within acceptable limits. Patient treated with migraine cocktail. Physical examination is benign.Laboratory evaluation obtained. CBC unremarkable. Metabolic panel is within acceptable limits urine is negative. Patient given multiple headache cocktails with no improvement of symptoms. Clinical presentation consistent with status migrainosus. - Lab Data Result diagrams: 11/06/17 03:35 11/06/17 03:35 Lab Results 11/06/17 11/06/17 11/06/17 Range/Units 03:35 03:35 04:02 WBC 6.8 (3.8-10.6) k/uL RBC 4.57 (3.80-5.40) m/uL Hgb 13.4 (11.4-16.0) gm/dL Hct 39.0 (34.0-46.0) % MCV 85.4 (80.0-100.0) fL MCH 29.4 (25.0-35.0) pg MCHC 34.4 (31.0-37.0) g/dL RDW 12.7 (11.5-15.5) % Plt Count 228 (150-450) k/uL Neutrophils % 55 % Lymphocytes % 34 % Monocytes % 6 % Eosinophils % 3 % Basophils % 1 % Neutrophils # 3.7 (1.3-7.7) k/uL Lymphocytes # 2.3 (1.0-4.8) k/uL Monocytes # 0.4 (0-1.0) k/uL Eosinophils # 0.2 (0-0.7) k/uL Basophils # 0.0 (0-0.2) k/uL Sodium 139 (137-145) mmol/L Potassium 3.3 L (3.5-5.1) mmol/L Chloride 104 (98-107) mmol/L Carbon Dioxide 26 (22-30) mmol/L Anion Gap 9 mmol/L BUN 10 (7-17) mg/dL Creatinine 0.70 (0.52-1.04) mg/dL Est GFR (CKD-EPI)AfAm >90 (>60 ml/min/1.73 sqM) Est GFR (CKD-EPI)NonAf >90 (>60 ml/min/1.73 sqM) Glucose 121 H (74-99) mg/dL Calcium 9.0 (8.4-10.2) mg/dL Urine HCG, Qual Not Detected (Not Detectd) Disposition Clinical Impression: Status migrainosus Disposition: ADMITTED IP TO THIS [facility] Condition: Fair Referrals: None,Stated [Primary Care Provider] - 1-2 days Time of Disposition: 04:32
[2017-11-06] MEDS ORDERED: DEXAMETHASONE SOD PHOSPHATE 10 MG/ML 1 ML VIAL IV STA (03:22)
[2017-11-06 03:57] LABS: Basophils % (A) 1 %; Eosinophils # (A) 0.2 k/uL (0-0.7); Eosinophils % (A) 3 %; HGB 13.4 gm/dL (11.4-16.0); Lymphocytes # (A) 2.3 k/uL (1.0-4.8); Lymphocytes % (A) 34 %; MCH 29.4 pg (25.0-35.0); MCHC 34.4 g/dL (31.0-37.0); MCV 85.4 fL (80.0-100.0); Mean Platelet Volume 6.7; Monocytes # (A) 0.4 k/uL (0-1.0); Monocytes % (A) 6 %; Neutrophils # (A) 3.7 k/uL (1.3-7.7); Neutrophils % (A) 55 %; Platelet Count 228 k/uL (150-450); RBC 4.57 m/uL (3.80-5.40); RDW 12.7 % (11.5-15.5); WBC 6.8 k/uL (3.8-10.6)
[2017-11-06 04:07] LABS: Anion Gap 9 mmol/L; Blood Urea Nitrogen 10 mg/dL (7-17); Carbon Dioxide 26 mmol/L (22-30); Chloride 104 mmol/L (98-107); Glucose 121 mg/dL (74-99); Potassium 3.3 mmol/L (3.5-5.1); Sodium 139 mmol/L (137-145)
[2017-11-06] MEDS: MAGNESIUM SULFATE-D5W PMX 1 GM in DEXTROSE/WATER 1 100ML.BAG IVPB SCH ×2 (04:15→08:36)
[2017-11-06] MEDS ORDERED: HALOPERIDOL LACTATE 5 MG/ML 1 ML VIAL IVP STA (04:26)
[2017-11-06] MEDS ORDERED: ACETAMINOPHEN TAB 325 MG TAB PO PRN (04:27)
[2017-11-06] MEDS ORDERED: NALOXONE 0.4 MG/ML 1 ML VIAL IV PRN (04:27)
[2017-11-06] MEDS: SODIUM CHLORIDE 0.9% 1,000 ML IV SCH ×2 (05:01→15:30)
[2017-11-06] MEDS ORDERED: POTASSIUM CHLORIDE ER 20 MEQ TAB.ER PO STA (06:13)
[2017-11-06] MEDS ORDERED: NAPROXEN 250 MG TAB PO STA (06:31)
[2017-11-06] MEDS ORDERED: SUMAtriptan SUCCINATE 6 MG/0.5 ML VIAL SQ STA (06:31)
[2017-11-06] MEDS ORDERED: diphenhydrAMINE 25 MG CAP PO PRN (06:31)
--- NOTE | 2017-11-06 06:46 | P.HPIM ---
History of Present Illness H&P Date: 11/06/17 Chief Complaint: Disabling headache 31-year-old female with past medical history of migraines and other chronic pain syndromes. Patient presented due to severe disabling headache over the past 4-5 days, she reports that she gets headaches every day but since Saturday she noticed that she had one of the severe attacks. She took her regular medications which her neurologist has prescribed in the past and kind of power through it until the past 2 days when the headache became very disabling and severe external all around her head mainly in the frontal part felt like someone hammering her head 10 out of 10 in severity and over the past day or 2 became associated with nausea and vomiting she couldn't keep anything down and decided to come the hospital for further care. She denies any focal numbness or tingling in her hands or feet denies any focal neurologic deficits like weakness. In the emergency department she received different medications trying to abort her headache with no benefit for which she was admitted for further evaluation by neurology. Currently patient seen on the medical floor complaining of severe disabling headache and she was asking for morphine or Dilaudid. Otherwise she denies any fevers chills denies any coughing denies any chest pain or trouble breathing denies any abdominal pain denies any changes in her bowel or urinary habits denies any GI bleeding Review of Systems Pertinent positives as noted in HPI. All other systems were reviewed and are negative Past Medical History Past Medical History: Asthma, GERD/Reflux, Hyperlipidemia, Musculoskeletal Disorder, Neurologic Disorder, Osteoarthritis (OA), Seizure Disorder Additional Past Medical History / Comment(s): RSD-DERIC FEET, INTERSTITIAL CYSTITIS, BRONCHITIS, HEMORRHOIDS,MIGRAINES, INSOMNIA. VERTIGO, last seizure 4 years ago History of Any Multi-Drug Resistant Organisms: MRSA Date of last positivie culture/infection: 04/20/15 MDRO Source:: Left Axilla Past Surgical History: Adenoidectomy, Back Surgery, Cholecystectomy, Orthopedic Surgery, Tonsillectomy Additional Past Surgical History / Comment(s): bilateral foot surgery d/t rsd, numerous pain clinic procedures, nerve stimulator in back to tx RSD placed in Nov 11 2015 Past Anesthesia/Blood Transfusion Reactions: Previous Problems w/ Anesthesia Additional Past Anesthesia/Blood Transfusion Reaction / Comment(s): Pt recieved blood when she was 2 yrs old after tonsillectomy. WHEN BABY HEART STOPPED TWICE- PT STATED SHE WAS ALLERGIC TO ETHER. Past Psychological History: Anxiety, Bipolar, Depression, PTSD Additional Psychological History / Comment(s): MOOD DISORDER AND MULTIPLE PERSONALITY DISORDER, 4 YEARS AGO HAD SUICIDE ATTEMPT DENIES ANY FURTHUR THOUGHTS OF SUICIDE OR HARMING SELF SINCE Smoking Status: Never smoker Past Alcohol Use History: None Reported Additional Past Alcohol Use History / Comment(s): Pt very rarely drinks alcohol. Past Drug Use History: Marijuana Additional Drug Use History / Comment(s): Pt states she has medical marijuana card - Past Family History Father History Unknown: Yes Family Medical History: Diabetes Mellitus Mother Family Medical History: Cancer, CVA/TIA, Diabetes Mellitus, Myocardial Infarction ([place]) Additional Family Medical History / Comment(s): Mother has had 5 CVAs, 3 MIs and UTERINE CANCER Medications and Allergies Home Medications Medication Instructions Recorded Confirmed Type Gemfibrozil [Lopid] 600 mg PO AC-BID 11/22/13 10/17/17 History Medroxyprogesterone Acetate 150 mg IM Q84D 11/22/13 10/17/17 History [Depo-Provera] rOPINIRole HCL [Requip] 1 mg PO DAILY 11/22/13 10/17/17 History Montelukast [Singulair] 10 mg PO HS 10/07/14 10/17/17 History Pentosan Polysulfate Sodium 100 mg PO BID 02/10/15 10/17/17 History [Elmiron] Pantoprazole Sodium [Protonix] 40 mg PO BID 04/20/15 10/17/17 History Beclomethasone Dipropionate [Qvar 2 puff INHALATION RT-BID PRN 06/07/15 History 80 mcg/puff] Prazosin HCl [Minipress] 2 mg PO HS 01/04/16 10/17/17 History Gabapentin 600 mg PO BID 06/14/16 10/17/17 History HYDROcodone/APAP 7.5-325MG [[place] 1 tab PO TID PRN 07/20/16 10/17/17 History 7.5-325] Hydrochlorothiazide [Hydrodiuril] 25 mg PO DAILY 07/20/16 10/17/17 History Paliperidone IM Pt Own [Invega 117 mg IM Q28D 07/20/16 10/17/17 History Sustenna] carBAMazepine [TEGretol XR] 200 mg PO HS 07/20/16 10/17/17 History Amantadine HCl [Symmetrel] 100 mg PO BID 11/21/16 10/17/17 History Ondansetron [Zofran ODT] 8 mg PO Q8HR PRN 11/21/16 10/17/17 History carBAMazepine [TEGretol XR] 100 mg PO QAM 11/30/16 10/17/17 History tiZANidine [Zanaflex] 4 mg PO TID PRN 11/30/16 10/17/17 History Tiotropium [place] [Spiriva 2 puff INHALATION RT-DAILY PRN 12/12/16 10/17/17 History Respimat] carBAMazepine [TEGretol XR] 200 mg PO BID 01/03/17 10/17/17 History rOPINIRole HCL [Requip] 2 mg PO HS 02/09/17 10/17/17 History Dicyclomine [Bentyl] 20 mg PO TID 07/09/17 10/17/17 History QUEtiapine [SEROquel] 100 mg PO HS 07/09/17 10/17/17 History Acyclovir 400 mg PO DAILY PRN 08/30/17 10/17/17 History Allergies Allergy/AdvReac Type Severity Reaction Status Date / Time azithromycin Allergy Rash/Hives Verified 11/06/17 00:31 [From Zithromax Z-Mehrdad] cimetidine [From Tagamet] Allergy Rash/Hives Verified 11/06/17 00:31 ether [Ether] Allergy Anaphylaxis Verified 11/06/17 00:31 Fish Containing Products Allergy Anaphylaxis Verified 11/06/17 00:31 [Fish] ketorolac tromethamine Allergy Rash/Hives Verified 11/06/17 00:31 [From Toradol] ziprasidone HCl [From Geodon] Allergy Extrapyramidal Verified 11/06/17 00:31 Symptoms fluphenazine HCl AdvReac Extrapyramidal Verified 11/06/17 00:31 [From Prolixin] Symptoms haloperidol [From Haldol] AdvReac Extrapyramidal Verified 11/06/17 00:31 Symptoms Sulfa (Sulfonamide AdvReac Nausea & Verified 11/06/17 00:31 Antibiotics) Vomiting Physical Exam Vitals: Vital Signs Temp Pulse Pulse Resp BP BP Pulse Ox 11/06/17 05:34 98.0 F 82 16 140/84 95 11/06/17 04:53 83 16 137/78 99 11/06/17 03:45 89 18 125/65 97 11/06/17 03:11 89 18 136/91 100 11/06/17 02:27 96 16 138/82 99 11/06/17 00:28 98.7 F 95 18 114/80 95 Intake and Output 11/05/17 11/05/17 11/06/17 14:59 22:59 06:59 Other: Weight 74.5 kg Constitutional: Patient seems to be struggling with severe headache trying to avoid eye contact, photophobia preferring to stay in the dark Eyes: Anicteric sclerae, moist conjunctiva, no lid-lag Pupils equal round, patient refuses to have light reflex performed ENMT: NC/AT Oropharynx clear, no erythema, exudates Neck: Supple, FROM, no masses, or JVD No carotid bruits No thyromegaly Lungs: Clear to auscultation Clear to percussion Normal respiratory effort, no accessory muscle use Cardiovascular: Heart regular in rate and rhythm, No murmurs, gallops, or rubs No peripheral edema Abdominal: Soft Nontender, no guarding, rebound or rigidity Abdomen moving with respiration Normoactive bowel sounds No hepatomegaly, No splenomegaly No palpable mass No abdominal wall hernia noted Skin: Normal temperature, tone, texture, turgor No induration No subcutaneous nodules No rash, lesions No ulcers Extremities: No digital cyanosis No clubbing Pedal pulses intact and symmetrical Radial pulses intact and symmetrical No calf tenderness Psychiatric: Alert and oriented to person, place and time Appropriate affect fair judgment Neuro Muscles Strength 5/5 in all 4 extremities Sensation to light touch grossly present throughout Cranial nerves II-XII grossly intact No focal sensory deficits No neck stiffness Lymphatics: no palpable cervical or supraclavicular , or inguinal lymph nodes Results CBC & Chem 7: 11/06/17 03:35 11/06/17 03:35 Labs: Abnormal Lab Results - Last 24 Hours (Table) 11/06/17 Range/Units 03:35 Potassium 3.3 L (3.5-5.1) mmol/L Glucose 121 H (74-99) mg/dL Thrombosis Risk Factor Assmnt - Choose All That Apply Each Factor Represents 1 point: Obesity (BMI >25) Other Risk Factors: No Thrombosis Risk Factor Assessment Total Risk Factor Score: 1 Thrombosis Risk Factor Assessment Level: Low Risk Assessment and Plan Assessment: 31-year-old female with past medical history of chronic pain syndrome, history of migraines, patient presented the hospital and admitted under observation with suspected left a pleasant 48 hours due to severe disabling headache to get neurologic evaluation. Patient did not respond to the initial treatment in the ED to abort her headache. Plan: Severe disabling headache with history of migraines No neurologic deficits Check computed tomography scan of the head with no contrast Trial of sumatriptan subcutaneously with Naprosyn Continue with when necessary Toradol Benadryl when necessary patient claims that she has ALLERGIES sometimes to NSAIDs Neurologic evaluation pending Neurochecks IV fluid hydration Hypokalemia, probably secondary to repeated nausea and vomiting and decreased by mouth intake Replace by mouth follow-up levels History of hypertension Currently controlled History of asthma Continue with inhalers DVT prophylaxis Check CT of the head first if there is no bleed will start heparin subcu Surrogate decision-maker: Patient darryl Corbett CODE STATUS: Full code Discussed with: Patient, ER, RN Anticipated discharge: <[address]: Home A total of 60 minutes was spent on the care of this complex patient more than 50 % of the time was spent in counseling and care coordination.
[2017-11-06] MEDS ORDERED: tiZANidine 4 MG TAB PO PRN (07:02)
[2017-11-06] MEDS ORDERED: ACYCLOVIR 200 MG CAP PO PRN (07:02)
[2017-11-06] MEDS: KETOROLAC 30 MG/ML 1 ML VIAL IVP SCH ×4 (07:10→21:14)
--- NOTE | 2017-11-06 07:11 | CT ---
EXAMINATION TYPE: CT brain wo con DATE OF EXAM: 11/06/2017 COMPARISON: 03/23/2015 HISTORY: 31-year-old female disabling LANTIGUA, nausea, vomiting, dizziness TECHNIQUE: Examination was done in axial plane without intravenous contrast. Coronal and sagittal r econstructions performed. CT DLP: 1091 mGycm Automated exposure control for dose reduction was used. FINDINGS: There is no evidence of acute intracranial hemorrhage, acute ischemic changes, mass, mass-effect, or extra-axial fluid collection. There is no effacement of cerebral sulci or basal subarachnoid cister ns. There is no hydrocephalus. There is no midline shift. Verduzco-white matter distinction is preserv ed. There is mild partial opacification of the bilateral sphenoid sinuses, improved from 2014. Patient's gaze is divergent. Mastoid air cells well pneumatized. IMPRESSION: 1. No acute intracranial abnormality seen. 2. Mild chronic sphenoid sinus disease, improved from 2014. 3. Divergent gaze suggests underlying strabismus.
[2017-11-06] MEDS: PANTOPRAZOLE 40 MG TABLET PO SCH ×2 (08:08→19:01)
[2017-11-06] MEDS: GEMFIBROZIL 600 MG TAB PO SCH ×2 (08:08→19:01)
[2017-11-06] MEDS: AMANTADINE HCL 100 MG CAP PO SCH ×2 (08:09→21:13)
[2017-11-06] MEDS: DICYCLOMINE 20 MG TAB PO SCH ×3 (08:10→21:13)
[2017-11-06] MEDS: PENTOSAN POLYSULFATE SODIUM 100 MG PO SCH ×2 (08:10→22:07)
[2017-11-06] MEDS: GABAPENTIN 300 MG CAP PO SCH ×2 (08:10→21:12)
[2017-11-06] MEDS ORDERED: carBAMazepine 100 MG TAB.ER.12H PO SCH ×2 (09:00→12:47)
[2017-11-06] MEDS ORDERED: hydrOXYzine PAMOATE 25 MG CAP PO PRN (12:48)
[2017-11-06] MEDS: METOCLOPRAMIDE 5 MG/ML 2 ML VIAL IVP PRN ×2 (13:10→20:33)
[2017-11-06] MEDS: ALBUTEROL NEBULIZED 2.5 MG/3 ML INHALATION PRN (13:16)
[2017-11-06] MEDS: HYDROcodone/APAP 7.5-325MG 1 EACH TAB PO PRN ×2 (13:59→22:41)
[2017-11-06] MEDS ORDERED: diphenhydrAMINE 50 MG/ML 1 ML VIAL IVP PRN (14:30)
[2017-11-06] MEDS: carBAMazepine 100 MG TAB.ER.12H PO SCH ×2 (14:52→21:13)
[2017-11-06] MEDS: QUEtiapine 100 MG TAB PO SCH (21:13)
[2017-11-06] MEDS: PRAZOSIN 1 MG CAP PO SCH (21:13)
[2017-11-06] MEDS: MONTELUKAST 10 MG TAB PO SCH (21:13)
[2017-11-06] MEDS: diphenhydrAMINE 50 MG/ML 1 ML VIAL IVP PRN (21:15)
--- NOTE | 2017-11-06 22:48 | P.CNNES ---
History of Present Illness Consult date: 11/06/17 History of Present Illness: The patient is a 31-year-old right-handed white female with history of migraines last 12 years. She states that she's had migraines which began last Saturday off and on over the weekend and then Saturday became more consistent and continuous. She states there is no change in her lifestyle or medications and there is no trigger. She states her headache is throbbing and associated with nausea and photophobia. She states she has not been on any preventive medication for migraines. She states normally she gets a migraine she takes Relpax. The patient denies any other neurologic complaints such as new weakness numbness or dizziness. She has had a CAT scan of the brain which showed some mild sinusitis. The patient has multiple medical problems including mood disorder RSD and history of isolated seizure years ago. Review of Systems Constitutional: Denies chills, Denies fever Eyes: denies blurred vision, denies pain Ears, nose, mouth and throat: Denies headache, Denies sore throat Respiratory: Denies cough Musculoskeletal: Denies myalgias Neurological: Denies numbness, Denies weakness Past Medical History Past Medical History: Asthma, GERD/Reflux, Hyperlipidemia, Musculoskeletal Disorder, Neurologic Disorder, Osteoarthritis (OA), Seizure Disorder Additional Past Medical History / Comment(s): RSD-DERIC FEET, INTERSTITIAL CYSTITIS, BRONCHITIS, HEMORRHOIDS,MIGRAINES, INSOMNIA. VERTIGO, last seizure 4 years ago History of Any Multi-Drug Resistant Organisms: MRSA Date of last positivie culture/infection: 04/20/15 MDRO Source:: Left Axilla Past Surgical History: Adenoidectomy, Back Surgery, Cholecystectomy, Orthopedic Surgery, Tonsillectomy Additional Past Surgical History / Comment(s): bilateral foot surgery d/t rsd, numerous pain clinic procedures, nerve stimulator in back to tx RSD placed in Nov 11 2015 Past Anesthesia/Blood Transfusion Reactions: Previous Problems w/ Anesthesia Additional Past Anesthesia/Blood Transfusion Reaction / Comment(s): Pt recieved blood when she was 2 yrs old after tonsillectomy. WHEN BABY HEART STOPPED TWICE- PT STATED SHE WAS ALLERGIC TO ETHER. Past Psychological History: Anxiety, Bipolar, Depression, PTSD Additional Psychological History / Comment(s): MOOD DISORDER AND MULTIPLE PERSONALITY DISORDER, 4 YEARS AGO HAD SUICIDE ATTEMPT DENIES ANY FURTHUR THOUGHTS OF SUICIDE OR HARMING SELF SINCE Smoking Status: Never smoker Past Alcohol Use History: None Reported Additional Past Alcohol Use History / Comment(s): Pt very rarely drinks alcohol. Past Drug Use History: Marijuana Additional Drug Use History / Comment(s): Pt states she has medical marijuana card - Past Family History Father History Unknown: Yes Family Medical History: Diabetes Mellitus Mother Family Medical History: Cancer, CVA/TIA, Diabetes Mellitus, Myocardial Infarction ([place]) Additional Family Medical History / Comment(s): Mother has had 5 CVAs, 3 MIs and UTERINE CANCER Medications and Allergies Home Medications Medication Instructions Recorded Confirmed Type Medroxyprogesterone Acetate 150 mg IM Q84D 11/22/13 11/06/17 History [Depo-Provera] rOPINIRole HCL [Requip] 1 mg PO DAILY 11/22/13 11/06/17 History Pentosan Polysulfate Sodium 100 mg PO BID 02/10/15 11/06/17 History [Elmiron] Pantoprazole Sodium [Protonix] 40 mg PO BID 04/20/15 11/06/17 History Prazosin HCl [Minipress] 2 mg PO HS 01/04/16 11/06/17 History Gabapentin 600 mg PO TID 06/14/16 11/06/17 History HYDROcodone/APAP 7.5-325MG [[place] 1 tab PO TID PRN 07/20/16 11/06/17 History 7.5-325] Hydrochlorothiazide [Hydrodiuril] 25 mg PO DAILY 07/20/16 11/06/17 History Paliperidone IM Pt Own [Invega 117 mg IM Q28D 07/20/16 11/06/17 History Sustenna] carBAMazepine [TEGretol XR] 200 mg PO HS 07/20/16 11/06/17 History Amantadine HCl [Symmetrel] 100 mg PO BID 11/21/16 11/06/17 History carBAMazepine [TEGretol XR] 100 mg PO QAM 11/30/16 11/06/17 History carBAMazepine [TEGretol XR] 200 mg PO BID 01/03/17 11/06/17 History rOPINIRole HCL [Requip] 2 mg PO HS 02/09/17 11/06/17 History Dicyclomine [Bentyl] 20 mg PO QID 07/09/17 11/06/17 History QUEtiapine [SEROquel] 100 mg PO HS 07/09/17 11/06/17 History hydrOXYzine PAMOATE [Vistaril] 25 mg PO TID PRN 11/06/17 11/06/17 History Allergies Allergy/AdvReac Type Severity Reaction Status Date / Time azithromycin Allergy Rash/Hives Verified 11/06/17 09:57 [From Zithromax Z-Mehrdad] cimetidine [From Tagamet] Allergy Rash/Hives Verified 11/06/17 09:57 ether [Ether] Allergy Anaphylaxis Verified 11/06/17 09:57 Fish Containing Products Allergy Anaphylaxis Verified 11/06/17 09:57 [Fish] ketorolac tromethamine Allergy Rash/Hives Verified 11/06/17 09:57 [From Toradol] ziprasidone HCl [From Geodon] Allergy Extrapyramidal Verified 11/06/17 09:57 Symptoms fluphenazine HCl AdvReac Extrapyramidal Verified 11/06/17 09:57 [From Prolixin] Symptoms haloperidol [From Haldol] AdvReac Extrapyramidal Verified 11/06/17 09:57 Symptoms Sulfa (Sulfonamide AdvReac Nausea & Verified 11/06/17 09:57 Antibiotics) Vomiting Physical Examination - Vital Signs Vital Signs: Vital Signs Temp Pulse Pulse Resp BP BP Pulse Ox 11/06/17 20:00 98.2 F 86 18 125/85 96 11/06/17 15:42 97.8 F 93 16 122/83 95 11/06/17 13:25 76 11/06/17 13:16 74 11/06/17 11:49 98.0 F 94 20 120/81 95 11/06/17 05:34 98.0 F 82 16 140/84 95 11/06/17 04:53 83 16 137/78 99 11/06/17 03:45 89 18 125/65 97 11/06/17 03:11 89 18 136/91 100 11/06/17 02:27 96 16 138/82 99 11/06/17 00:28 98.7 F 95 18 114/80 95 Intake and Output 11/06/17 11/06/17 11/06/17 06:59 14:59 22:59 Intake Total 1260 Balance 1260 Intake: Oral 1260 Other: # Voids 2 Weight 74.5 kg - Constitutional General appearance: average body habitus - EENT EENT: PERRL, hearing intact - Respiratory Respiratory: lungs clear - Cardiovascular Cardiovascular: regular rate - Integumentary Integumentary: normal - Neurologic Neurologic exam: Mental status: She was awake alert and oriented 3 her speech was fluent there is no a aphasia or dysarthria Cranial nerve examination: PERRL, EOMI, VFF, V1/V2/V3 grossly intact, face symmetric, tongue midline Speech examination: intact Sensorimotor examination: intact Detailed motor examination: grossly full strength in all extremities Results - Laboratory Findings CBC and BMP: 11/06/17 03:35 11/06/17 03:35 Abnormal Lab Findings: Abnormal Labs 11/06/17 03:35 Potassium 3.3 L Glucose 121 H Assessment and Plan (1) Status migrainosus Current Visit: Yes Status: Acute SNOMED Code(s): 805767885 Plan: The patient is a 31-year-old woman with history of migraine headaches who presents with status migrainosus. She reports that she has had continuous headache for 2 days associated with nausea and vomiting. She denied any other focal neurologic deficit and her neurologic examination is nonfocal. She has had this CT of the brain which was unremarkable except for mild sinus disease. Will give patient a 1 time dose of IV Depakote for status migrainosus. Recommend consult pain management.
[2017-11-06] MEDS ORDERED: VALPROATE SODIUM 500 MG in SODIUM CHLORIDE 0.9% 50 ML IVPB ONE (23:00)
[2017-11-07] MEDS: KETOROLAC 30 MG/ML 1 ML VIAL IVP SCH ×4 (03:17→21:51)
[2017-11-07] MEDS: METOCLOPRAMIDE 5 MG/ML 2 ML VIAL IVP PRN ×3 (03:18→19:16)
[2017-11-07] MEDS: PANTOPRAZOLE 40 MG TABLET PO SCH ×2 (06:18→17:37)
[2017-11-07] MEDS: GEMFIBROZIL 600 MG TAB PO SCH ×2 (06:18→17:46)
[2017-11-07] MEDS: GABAPENTIN 300 MG CAP PO SCH ×2 (08:38→22:00)
[2017-11-07] MEDS: AMANTADINE HCL 100 MG CAP PO SCH ×2 (08:39→21:58)
[2017-11-07] MEDS: carBAMazepine 100 MG TAB.ER.12H PO SCH ×2 (08:42→21:59)
[2017-11-07] MEDS: PENTOSAN POLYSULFATE SODIUM 100 MG PO SCH ×2 (08:43→22:04)
[2017-11-07] MEDS: DICYCLOMINE 20 MG TAB PO SCH ×3 (08:47→22:04)
[2017-11-07] MEDS: diphenhydrAMINE 50 MG/ML 1 ML VIAL IVP PRN ×3 (09:41→21:52)
[2017-11-07] MEDS ORDERED: BISACODYL 5 MG TABLET.DR PO STA (12:12)
--- NOTE | 2017-11-07 12:12 | P.PN ---
Subjective Patient admitted for headache and status migrainosus. She still reporting migrant on the left side of her head associated with nausea. No vomiting. No vision changes and no any other interval changes overnight. Objective - Vital Signs Vital signs: Vital Signs Temp 98.3 F 11/07/17 07:00 Pulse 71 11/07/17 07:00 Resp 18 11/07/17 07:00 BP 127/86 11/07/17 07:00 Pulse Ox 95 11/07/17 07:00 Intake & Output 11/06/17 11/07/17 11/07/17 18:59 06:59 18:59 Intake Total 1840 100 Balance 1840 100 Intake: Oral 1840 100 Other: Voiding Method Toilet # Voids 2 1 - Constitutional General appearance: Present: no acute distress - EENT Eyes: Present: EOMI. Absent: anicteric sclerae ENT: Present: normal oropharynx - Neck Neck: Present: normal ROM. Absent: lymphadenopathy, rigidity - Respiratory Respiratory: bilateral: CTA - Cardiovascular Rhythm: regular Heart sounds: normal: S1, S2 - Gastrointestinal General gastrointestinal: Present: normal bowel sounds, soft. Absent: organomegaly, tenderness - Integumentary Integumentary: Absent: cyanotic, pale, rash - Neurologic Neurologic: Present: CNII-XII intact - Musculoskeletal Musculoskeletal: Present: strength equal bilaterally - Psychiatric Psychiatric: Present: A&O x's 3 - Labs CBC & Chem 7: 11/06/17 03:35 11/07/17 06:10 - Imaging and Cardiology CT Scan - head: report reviewed Assessment and Plan (1) Status migrainosus Narrative/Plan: Neurology input appreciated Patient received Depakote Pain management consulted We will monitor the response Current Visit: Yes Status: Acute Priority: High Code(s): G43.901 - MIGRAINE, UNSP, NOT INTRACTABLE, WITH STATUS MIGRAINOSUS SNOMED Code(s): 228082390 (2) Anxiety Narrative/Plan: Usual home medications reordered Current Visit: No Status: Chronic Priority: Medium Code(s): F41.9 - ANXIETY DISORDER, UNSPECIFIED SNOMED Code(s): 53276457 (3) Asthmatic bronchitis with acute exacerbation Narrative/Plan: Stable not short of breath no wheezing Continue home medications Current Visit: No Status: Acute Priority: Medium Code(s): J45.901 - UNSPECIFIED ASTHMA WITH (ACUTE) EXACERBATION SNOMED Code(s): 286403918 (4) Chronic pain syndrome Narrative/Plan: Patient continues with her home medications. No plan for escalation of her pain medications at this point Pain management consult Current Visit: No Status: Acute Priority: Medium Code(s): G89.4 - CHRONIC PAIN SYNDROME SNOMED Code(s): 713370863 (5) Constipation Narrative/Plan: Will order laxatives and Dulcolax Current Visit: Yes Status: Acute Priority: Medium Code(s): K59.00 - CONSTIPATION, UNSPECIFIED SNOMED Code(s): 94800105
[2017-11-07] MEDS: HYDROcodone/APAP 7.5-325MG 1 EACH TAB PO PRN ×2 (12:24→17:43)
[2017-11-07] MEDS: ALBUTEROL NEBULIZED 2.5 MG/3 ML INHALATION PRN (12:28)
[2017-11-07] MEDS: SODIUM CHLORIDE 0.9% 1,000 ML IV SCH ×2 (15:44→22:08)
[2017-11-07] MEDS: POLYETHYLENE GLYCOL 3350 17 GM POWD.PACK PO SCH (17:37)
[2017-11-07] MEDS ORDERED: VALPROATE SODIUM 500 MG in SODIUM CHLORIDE 0.9% 50 ML IVPB PRN (19:24)
[2017-11-07] MEDS: MONTELUKAST 10 MG TAB PO SCH (22:00)
[2017-11-07] MEDS: QUEtiapine 100 MG TAB PO SCH (22:02)
[2017-11-07] MEDS: PRAZOSIN 1 MG CAP PO SCH (22:02)
[2017-11-08] MEDS: HYDROcodone/APAP 7.5-325MG 1 EACH TAB PO PRN ×2 (01:27→11:27)
[2017-11-08] MEDS: KETOROLAC 30 MG/ML 1 ML VIAL IVP SCH ×2 (04:09→10:15)
[2017-11-08] MEDS: diphenhydrAMINE 50 MG/ML 1 ML VIAL IVP PRN ×2 (04:12→10:15)
[2017-11-08 05:59] VITALS: TEMP 98.1
[2017-11-08] MEDS: GEMFIBROZIL 600 MG TAB PO SCH (07:59)
[2017-11-08] MEDS: AMANTADINE HCL 100 MG CAP PO SCH (07:59)
[2017-11-08] MEDS: carBAMazepine 100 MG TAB.ER.12H PO SCH (08:00)
[2017-11-08] MEDS: POLYETHYLENE GLYCOL 3350 17 GM POWD.PACK PO SCH (08:01)
[2017-11-08] MEDS: GABAPENTIN 300 MG CAP PO SCH (08:06)
[2017-11-08] MEDS: DICYCLOMINE 20 MG TAB PO SCH (08:06)
[2017-11-08] MEDS: PANTOPRAZOLE 40 MG TABLET PO SCH (08:06)
[2017-11-08 08:26] VITALS: BP 130/83; PULSE 78; RESP 20
[2017-11-08] MEDS: METOCLOPRAMIDE 5 MG/ML 2 ML VIAL IVP PRN (08:28)
[2017-11-08] MEDS: PENTOSAN POLYSULFATE SODIUM 100 MG PO SCH (10:02)
[2017-11-08] MEDS ORDERED: medroxyPROGESTERone 150 MG/ML 1ML VIAL IM SCH (10:45)
--- NOTE | 2017-11-08 10:55 | P.DS ---
Providers Date of admission: 11/06/17 04:27 11/06/17 Expected date of discharge: 11/08/17 Attending physician: Sommer Hahn MD Consults: 11/06/17 04:29 Consult Physician Routine Consulting Provider: Lc Willams Consult Reason/Comments: status migranosis Do you want consulting provider notified?: Yes, Notify in am 11/06/17 18:02 Consult to Anesthesia Routine Consulting Provider: Anesthesia,Services Consult Reason/Comments: pain management, migraines Primary care physician: Stated None - Discharge Diagnosis(es) (1) Status migrainosus Patient with history of migraines admitted with status migrainous. She had a severe debilitating headache over 4-5 days. Despite treatment patient in the emergency room patient was still c/o of headache so she was admitted for further workup and management. Patient was seen by neurology and given IV Depakote and was seen by me and her migraines had resolved. She was seen by me and had no complaints so was determined stable for discharge. Current Visit: Yes Status: Acute Priority: High Hospital Course: Patient was medically optimized and is currently back at baseline Time spent on the day of discharge 32 minutes Patient Condition at Discharge: Good Plan - Discharge Summary New Discharge Prescriptions: No Action Medroxyprogesterone Acetate [Depo-Provera] 150 mg IM Q84D rOPINIRole HCL [Requip] 1 mg PO DAILY Pentosan Polysulfate Sodium [El[place]iron] 100 mg PO BID Pantoprazole Sodium [Protonix] 40 mg PO BID Prazosin HCl [Minipress] 2 mg PO HS Gabapentin 600 mg PO TID Paliperidone IM Pt Own [Invega Sustenna] 117 mg IM Q28D HYDROcodone/APAP 7.5-325MG [[place] 7.5-325] 1 tab PO TID PRN PRN Reason: Pain Hydrochlorothiazide [Hydrodiuril] 25 mg PO DAILY carBAMazepine [TEGretol XR] 200 mg PO HS Amantadine HCl [Symmetrel] 100 mg PO BID carBAMazepine [TEGretol XR] 100 mg PO QAM carBAMazepine [TEGretol XR] 200 mg PO BID rOPINIRole HCL [Requip] 2 mg PO HS QUEtiapine [SEROquel] 100 mg PO HS Dicyclomine [Bentyl] 20 mg PO QID hydrOXYzine PAMOATE [Vistaril] 25 mg PO TID PRN PRN Reason: Itching Discharge Medication List Medroxyprogesterone Acetate [Depo-Provera] 150 mg IM Q84D 11/22/13 [History] rOPINIRole HCL [Requip] 1 mg PO DAILY 11/22/13 [History] Pentosan Polysulfate Sodium [[place]] 100 mg PO BID 02/10/15 [History] Pantoprazole Sodium [Protonix] 40 mg PO BID 04/20/15 [History] Prazosin HCl [Minipress] 2 mg PO HS 01/04/16 [History] Gabapentin 600 mg PO TID 06/14/16 [History] HYDROcodone/APAP 7.5-325MG [[place] 7.5-325] 1 tab PO TID PRN 07/20/16 [History] Hydrochlorothiazide [Hydrodiuril] 25 mg PO DAILY 07/20/16 [History] Paliperidone IM Pt Own [Invega Sustenna] 117 mg IM Q28D 07/20/16 [History] carBAMazepine [TEGretol XR] 200 mg PO HS 07/20/16 [History] Amantadine HCl [Symmetrel] 100 mg PO BID 11/21/16 [History] carBAMazepine [TEGretol XR] 100 mg PO QAM 11/30/16 [History] carBAMazepine [TEGretol XR] 200 mg PO BID 01/03/17 [History] rOPINIRole HCL [Requip] 2 mg PO HS 02/09/17 [History] Dicyclomine [Bentyl] 20 mg PO QID 07/09/17 [History] QUEtiapine [SEROquel] 100 mg PO HS 07/09/17 [History] hydrOXYzine PAMOATE [Vistaril] 25 mg PO TID PRN 11/06/17 [History] Follow up Appointment(s)/Referral(s): None,Stated [Primary Care Provider] - 1-2 days
[2017-11-09] MEDS ORDERED: HYDROCHLOROTHIAZIDE 25 MG TAB PO SCH (09:00)
[2017-11-25] MEDS ORDERED: PALIPERIDONE IM 117 MG/0.75 ML ML (PT OWN) IM SCH (12:00)
== END 2017-11-08 11:45 | disposition home or self-care (01) ==
LOC: EC 00:01 → SUPCPDRO 00:01 → 6PED 04:27
PROVIDERS: ADMIT Internal Medicine; ATTEND Internal Medicine
DX: G43.901 Migraine, unspecified, not intractable, with status migrainosus (principal); G89.4 Chronic pain syndrome; J45.901 Unspecified asthma with (acute) exacerbation; K59.00 Constipation, unspecified; E87.6 Hypokalemia; I10 Essential (primary) hypertension; K21.9 Gastro-esophageal reflux disease without esophagitis; E78.5 Hyperlipidemia, unspecified; M19.90 Unspecified osteoarthritis, unspecified site; G40.909 Epilepsy, unspecified, not intractable, without status epilepticus; G90.523 Complex regional pain syndrome I of lower limb, bilateral; N30.90 Cystitis, unspecified without hematuria; G47.00 Insomnia, unspecified; R42 Dizziness and giddiness; F43.10 Post-traumatic stress disorder, unspecified; F44.81 Dissociative identity disorder; F31.9 Bipolar disorder, unspecified; Z79.899 Other long term (current) drug therapy; Z79.3 Long term (current) use of hormonal contraceptives; Z88.2 Allergy status to sulfonamides; Z88.8 Allergy status to other drugs, medicaments and biological substances; Z88.1 Allergy status to other antibiotic agents; Z91.013 Allergy to seafood; Z91.048 Other nonmedicinal substance allergy status; Z91.5 Personal history of self-harm; Z87.19 Personal history of other diseases of the digestive system; Z86.14 Personal history of Methicillin resistant Staphylococcus aureus infection; Z90.49 Acquired absence of other specified parts of digestive tract; Z83.3 Family history of diabetes mellitus; Z82.49 Family history of ischemic heart disease and other diseases of the circulatory system; Z82.3 Family history of stroke; Z80.49 Family history of malignant neoplasm of other genital organs; E66.9 Obesity, unspecified; Z68.30 Body mass index [BMI] 30.0-30.9, adult
CPT/HCPCS: 99284 ×2; 96375 ×5; 96361 ×3; 96365 ×2; 96366; 96367; 96372; 96376 ×3; 36415; 94640 ×2; 80048; 84132; 85025; 81025; 70450; G0378 ×3; J3030; J1200 ×3; J1100; J2765 ×3; J1885 ×3; J3475

== ENCOUNTER 2017-11-18 16:18 | Emergency (ER) | payer MEDICARE, OTHER ==
[2017-11-18 17:17] VITALS: BP 141/95; PULSE 109; RESP 16; TEMP 98.4
--- NOTE | 2017-11-18 18:11 | ED ---
Upper Extremity HPI - General Chief Complaint: Extremity Injury, Upper Stated Complaint: rt shoulder injury Time Seen by Provider: 11/18/17 17:18 Source: patient, RN notes reviewed Mode of arrival: ambulatory Limitations: no limitations - History of Present Illness Initial Comments: This is a 32-year-old female who presents to the emergency department with chief complaint of right arm injury. Patient states that prior to arrival her legs gave out and she fell, landing on her right arm. Patient complains of pain the lateral elbow and upper arm. States that she has difficulty extending her elbow and using her upper arm due to pain. Denies any other injuries or trauma. Denies head, neck or back pain. Denies recent fevers or chills, chest pain or shortness of breath, abdominal pain, nausea or vomiting, numbness or tingling. - Related Data Home Medications Medication Instructions Recorded Confirmed Medroxyprogesterone Acetate 150 mg IM Q84D 11/22/13 11/06/17 [Depo-Provera] rOPINIRole HCL [Requip] 1 mg PO DAILY 11/22/13 11/06/17 Pentosan Polysulfate Sodium 100 mg PO BID 02/10/15 11/06/17 [Elmiron] Pantoprazole Sodium [Protonix] 40 mg PO BID 04/20/15 11/06/17 Prazosin HCl [Minipress] 2 mg PO HS 01/04/16 11/06/17 Gabapentin 600 mg PO TID 06/14/16 11/06/17 HYDROcodone/APAP 7.5-325MG [[place] 1 tab PO TID PRN 07/20/16 11/06/17 7.5-325] Hydrochlorothiazide [Hydrodiuril] 25 mg PO DAILY 07/20/16 11/06/17 Paliperidone IM Pt Own [Invega 117 mg IM Q28D 07/20/16 11/06/17 Sustenna] carBAMazepine [TEGretol XR] 200 mg PO HS 07/20/16 11/06/17 Amantadine HCl [Symmetrel] 100 mg PO BID 11/21/16 11/06/17 carBAMazepine [TEGretol XR] 100 mg PO QAM 11/30/16 11/06/17 carBAMazepine [TEGretol XR] 200 mg PO BID 01/03/17 11/06/17 rOPINIRole HCL [Requip] 2 mg PO HS 02/09/17 11/06/17 Dicyclomine [Bentyl] 20 mg PO QID 07/09/17 11/06/17 QUEtiapine [SEROquel] 100 mg PO HS 07/09/17 11/06/17 hydrOXYzine PAMOATE [Vistaril] 25 mg PO TID PRN 11/06/17 11/06/17 Allergies Allergy/AdvReac Type Severity Reaction Status Date / Time azithromycin Allergy Rash/Hives Verified 11/18/17 17:17 [From Zithromax Z-Mehrdad] cimetidine [From Tagamet] Allergy Rash/Hives Verified 11/18/17 17:17 ether [Ether] Allergy Anaphylaxis Verified 11/18/17 17:17 Fish Containing Products Allergy Anaphylaxis Verified 11/18/17 17:17 [Fish] ketorolac tromethamine Allergy Rash/Hives Verified 11/18/17 17:17 [From Toradol] ziprasidone HCl [From Geodon] Allergy Extrapyramidal Verified 11/18/17 17:17 Symptoms fluphenazine HCl AdvReac Extrapyramidal Verified 11/18/17 17:17 [From Prolixin] Symptoms haloperidol [From Haldol] AdvReac Extrapyramidal Verified 11/18/17 17:17 Symptoms Sulfa (Sulfonamide AdvReac Nausea & Verified 11/18/17 17:17 Antibiotics) Vomiting Review of Systems ROS Statement: Those systems with pertinent positive or pertinent negative responses have been documented in the HPI. ROS Other: All systems not noted in ROS Statement are negative. Past Medical History Past Medical History: Asthma, GERD/Reflux, Hyperlipidemia, Musculoskeletal Disorder, Neurologic Disorder, Osteoarthritis (OA), Seizure Disorder Additional Past Medical History / Comment(s): RSD-DERIC FEET, INTERSTITIAL CYSTITIS, BRONCHITIS, HEMORRHOIDS,MIGRAINES, INSOMNIA. VERTIGO, last seizure 4 years ago History of Any Multi-Drug Resistant Organisms: MRSA Date of last positivie culture/infection: 04/20/15 MDRO Source:: Left Axilla Past Surgical History: Adenoidectomy, Back Surgery, Cholecystectomy, Orthopedic Surgery, Tonsillectomy Additional Past Surgical History / Comment(s): bilateral foot surgery d/t rsd, numerous pain clinic procedures, nerve stimulator in back to tx RSD placed in Nov 11 2015 Past Anesthesia/Blood Transfusion Reactions: Previous Problems w/ Anesthesia Additional Past Anesthesia/Blood Transfusion Reaction / Comment(s): Pt recieved blood when she was 2 yrs old after tonsillectomy. WHEN BABY HEART STOPPED TWICE- PT STATED SHE WAS ALLERGIC TO ETHER. Past Psychological History: Anxiety, Bipolar, Depression, PTSD Smoking Status: Never smoker Past Alcohol Use History: None Reported Past Drug Use History: Marijuana - Past Family History Father History Unknown: Yes Family Medical History: Diabetes Mellitus Mother Family Medical History: Cancer, CVA/TIA, Diabetes Mellitus, Myocardial Infarction ([place]) Additional Family Medical History / Comment(s): Mother has had 5 CVAs, 3 MIs and UTERINE CANCER General Exam - General Exam Comments Initial Comments: General: Awake and alert, well-developed; in no apparent distress. [place] dramatic white female sitting on ED stretcher with right arm flexed at 90. HEENT: Head atraumatic, normocephalic. Pupils are equal, round and reactive to light. Extraocular movements intact. Oropharynx moist without erythema or exudate. Neck: Supple. Normal ROM. Cardiovascular: Regular rate and rhythm. No murmurs, rubs or gallops. Chest symmetrical. Respiratory: Lungs clear to auscultation bilaterally. No wheezes, rales or rhonchi. Normal respiratory effort with no use of accessory muscles. Musculoskeletal: Normal range of motion of the right elbow and shoulder, however patient complains of diffuse pain with any movement of the arm. Generalized tenderness on palpation from elbow up to the proximal humerus. No AC joint or clavicle tenderness. Sensation is intact. No swelling or erythema noted. Radial pulses are 2+ equal and palpable bilaterally. Skin: [place], warm and dry without rashes. Two small contusions noted to distal humerus. Neurological: Alert and oriented x3. CN II-XII grossly intact. Speech is fluent and answers are appropriate. No focal neuro deficits. Psychiatric: Normal mood and affect. No overt signs of depression or anxiety noted. Limitations: no limitations Course Vital Signs 11/18/17 17:14 Temperature 98.4 F Pulse Rate 109 H Respiratory 16 Rate Blood Pressure 141/95 O2 Sat by Pulse 99 Oximetry Medical Decision Making - Medical Decision Making This is a 32-year-old female who presents to the emergency department with chief complaint of arm injury. Patient reports falling and landing on her right arm. She reports diffuse pain from her elbow up to her proximal humerus. X-ray of the right elbow and humerus was obtained. Neither x-ray revealed any acute abnormalities. Patient's vital signs have been stable and she is in no acute distress. Patient suffering from contusion of the right arm. Recommended rest, ice, elevation and Tylenol as needed for pain. Patient will be discharged home at this time. She is in agreement voices understanding. All questions were answered. - Radiology Data Radiology results: report reviewed X-ray right elbow impression: Negative right elbow exam. X-ray right humerus impression: Negative right humerus exam. Disposition Clinical Impression: Contusion of right arm Disposition: HOME SELF-CARE Condition: Good Instructions: Contusion in Adults (ED), RICE Therapy (ED) Additional Instructions: Please follow up with primary care provider within 1-2 days. Return to emergency department if symptoms should worsen or any concerns arise. Is patient prescribed a controlled substance at d/c from ED?: No Referrals: None,Stated [Primary Care Provider] - 1-2 days Time of Disposition: 18:15
--- NOTE | 2017-11-18 18:12 | XR ---
EXAMINATION TYPE: XR elbow complete RT DATE OF EXAM: 11/18/2017 COMPARISON: NONE HISTORY: Pain TECHNIQUE: 3 views FINDINGS: I see no fracture nor dislocation. Elbow joint spaces are normal. There is no sign of elbow joint effusion. IMPRESSION: Negative right elbow exam.
--- NOTE | 2017-11-18 18:12 | XR ---
EXAMINATION TYPE: XR humerus RT DATE OF EXAM: 11/18/2017 COMPARISON: NONE HISTORY: Pain after falling TECHNIQUE: 2 views FINDINGS: Shoulder joint and elbow joint appear intact. I see no fracture nor dislocation. IMPRESSION: Negative right humerus exam.
== END 2017-11-18 18:27 | disposition home or self-care (01) ==
LOC: EC 16:18
DX: S40.021A Contusion of right upper arm, initial encounter (principal); K21.9 Gastro-esophageal reflux disease without esophagitis; G40.909 Epilepsy, unspecified, not intractable, without status epilepticus; M19.90 Unspecified osteoarthritis, unspecified site; F41.9 Anxiety disorder, unspecified; F32.9 Major depressive disorder, single episode, unspecified; F43.10 Post-traumatic stress disorder, unspecified; Z86.14 Personal history of Methicillin resistant Staphylococcus aureus infection; Z79.3 Long term (current) use of hormonal contraceptives; Z79.899 Other long term (current) drug therapy; Z88.1 Allergy status to other antibiotic agents; Z88.8 Allergy status to other drugs, medicaments and biological substances; Z91.013 Allergy to seafood; Z88.6 Allergy status to analgesic agent; Z88.2 Allergy status to sulfonamides; W19.XXXA Unspecified fall, initial encounter
CPT/HCPCS: 99283

== ENCOUNTER 2018-01-13 14:45 | Emergency (ER) | payer MEDICARE, OTHER ==
[2018-01-13] MEDS ORDERED: diphenhydrAMINE 50 MG/ML 1 ML VIAL IVP STA (15:57)
[2018-01-13] MEDS ORDERED: ONDANSETRON 4 MG/2 ML VIAL IVP STA (15:57)
[2018-01-13] MEDS ORDERED: PROMETHAZINE INJ 25 MG in SODIUM CHLORIDE 0.9% 50 ML IVPB STA (15:57)
[2018-01-13] MEDS ORDERED: methylPREDNISolone SOD SUCCI 125 MG/2 ML VIAL IV STA (15:58)
[2018-01-13] MEDS ORDERED: SODIUM CHLORIDE 0.9% 1,000 ML IV ONE (16:21)
--- NOTE | 2018-01-13 16:23 | ED ---
Headache HPI - General Chief Complaint: Headache Stated Complaint: Vomiting/headache surgery on saturday Time Seen by Provider: 01/13/18 15:52 Source: patient, RN notes reviewed Mode of arrival: ambulatory Limitations: no limitations - History of Present Illness Initial Comments: This a 32-year-old female presents emergency Department with chief complaint of nausea vomiting headache. Patient states that she had a morphine pump placement Dr. Shannon on Saturday. Patient states ever since she's been vomiting. Patient states that she had that test before and states that she vomited from the morphine also. Patient denies any fevers or chills denies any redness or incision sites in her abdomen or back. Patient has no neck pain or neck stiffness. She states she's has a headache from vomiting and her typical migraine. - Related Data Home Medications Medication Instructions Recorded Confirmed Medroxyprogesterone Acetate 150 mg IM Q84D 11/22/13 01/13/18 [Depo-Provera] rOPINIRole HCL [Requip] 1 mg PO DAILY 11/22/13 01/13/18 Pentosan Polysulfate Sodium 100 mg PO BID 02/10/15 01/13/18 [Elmiron] Pantoprazole Sodium [Protonix] 40 mg PO BID 04/20/15 01/13/18 Prazosin HCl [Minipress] 2 mg PO HS 01/04/16 01/13/18 Gabapentin 600 mg PO TID 06/14/16 01/13/18 HYDROcodone/APAP 7.5-325MG [[place] 1 tab PO TID PRN 07/20/16 01/13/18 7.5-325] Hydrochlorothiazide [Hydrodiuril] 25 mg PO DAILY 07/20/16 01/13/18 Paliperidone IM Pt Own [Invega 117 mg IM Q28D 07/20/16 01/13/18 Sustenna] carBAMazepine [TEGretol XR] 200 mg PO HS 07/20/16 01/13/18 Amantadine HCl [Symmetrel] 100 mg PO BID 11/21/16 01/13/18 carBAMazepine [TEGretol XR] 100 mg PO QAM 11/30/16 01/13/18 carBAMazepine [TEGretol XR] 200 mg PO BID 01/03/17 01/13/18 rOPINIRole HCL [Requip] 2 mg PO HS 02/09/17 01/13/18 Dicyclomine [Bentyl] 20 mg PO QID 07/09/17 01/13/18 hydrOXYzine PAMOATE [Vistaril] 25 mg PO TID PRN 11/06/17 01/13/18 Acyclovir [Zovirax] 400 mg PO DAILY 01/13/18 01/13/18 Acyclovir [Zovirax] 800 mg PO 5XD 01/13/18 01/13/18 Albuterol Sulfate [Proair Hfa] 2 puff INHALATION BID PRN 01/13/18 01/13/18 Butalb/Acetaminophen/Caffeine 1 tab PO Q6H PRN 01/13/18 01/13/18 [Fioricet 50-325-40] Fluticasone Propionate [Flovent 1 puff INHALATION BID 01/13/18 01/13/18 Hfa 110 mcg] Gemfibrozil [Lopid] 600 mg PO AC-BID 01/13/18 01/13/18 Montelukast Sodium [Singulair] 10 mg PO HS 01/13/18 01/13/18 Ondansetron HCl [Zofran] 8 mg PO TID PRN 01/13/18 01/13/18 QUEtiapine [SEROquel] 200 mg PO HS 01/13/18 01/13/18 Topiramate [Topamax] 25 mg PO DAILY 01/13/18 01/13/18 tiZANidine HCL [Zanaflex] 4 mg PO TID PRN 01/13/18 01/13/18 Allergies Allergy/AdvReac Type Severity Reaction Status Date / Time azithromycin Allergy Rash/Hives Verified 01/13/18 16:25 [From Zithromax Z-Mehrdad] cimetidine [From Tagamet] Allergy Rash/Hives Verified 01/13/18 16:25 ether [Ether] Allergy Anaphylaxis Verified 01/13/18 16:25 Fish Containing Products Allergy Anaphylaxis Verified 01/13/18 16:25 [Fish] ketorolac tromethamine Allergy Rash/Hives Verified 01/13/18 16:25 [From Toradol] ziprasidone HCl [From Geodon] Allergy Extrapyramidal Verified 01/13/18 16:25 Symptoms fluphenazine HCl AdvReac Extrapyramidal Verified 01/13/18 16:25 [From Prolixin] Symptoms haloperidol [From Haldol] AdvReac Extrapyramidal Verified 01/13/18 16:25 Symptoms Sulfa (Sulfonamide AdvReac Nausea & Verified 01/13/18 16:25 Antibiotics) Vomiting Review of Systems ROS Statement: Those systems with pertinent positive or pertinent negative responses have been documented in the HPI. ROS Other: All systems not noted in ROS Statement are negative. Past Medical History Past Medical History: Asthma, GERD/Reflux, Hyperlipidemia, Musculoskeletal Disorder, Neurologic Disorder, Osteoarthritis (OA), Seizure Disorder Additional Past Medical History / Comment(s): RSD-DERIC FEET, INTERSTITIAL CYSTITIS, BRONCHITIS, HEMORRHOIDS,MIGRAINES, INSOMNIA. VERTIGO, last seizure 4 years ago History of Any Multi-Drug Resistant Organisms: MRSA Date of last positivie culture/infection: 04/20/15 MDRO Source:: Left Axilla Past Surgical History: Adenoidectomy, Back Surgery, Cholecystectomy, Orthopedic Surgery, Tonsillectomy Additional Past Surgical History / Comment(s): bilateral foot surgery d/t rsd, numerous pain clinic procedures, nerve stimulator in back to tx RSD placed in Nov 11 2015 Past Anesthesia/Blood Transfusion Reactions: Previous Problems w/ Anesthesia Additional Past Anesthesia/Blood Transfusion Reaction / Comment(s): Pt recieved blood when she was 2 yrs old after tonsillectomy. WHEN BABY HEART STOPPED TWICE- PT STATED SHE WAS ALLERGIC TO ETHER. Past Psychological History: Anxiety, Bipolar, Depression, PTSD Smoking Status: Never smoker Past Alcohol Use History: None Reported Past Drug Use History: Marijuana - Past Family History Father History Unknown: Yes Family Medical History: Diabetes Mellitus Mother Family Medical History: Cancer, CVA/TIA, Diabetes Mellitus, Myocardial Infarction ([place]) Additional Family Medical History / Comment(s): Mother has had 5 CVAs, 3 MIs and UTERINE CANCER General Exam Limitations: no limitations General appearance: alert, in no apparent distress Head exam: Present: atraumatic, normocephalic, normal inspection Eye exam: Present: normal appearance, PERRL, EOMI. Absent: scleral icterus, conjunctival injection, periorbital swelling ENT exam: Present: normal exam, normal oropharynx, mucous membranes moist, TM's normal bilaterally Neck exam: Present: normal inspection, full ROM. Absent: tenderness, meningismus, lymphadenopathy Respiratory exam: Present: normal lung sounds bilaterally. Absent: respiratory distress, wheezes, rales, rhonchi, stridor Cardiovascular Exam: Present: regular rate, normal rhythm, normal heart sounds. Absent: systolic murmur, diastolic murmur, rubs, gallop, clicks GI/Abdominal exam: Present: soft, tenderness (Mild surrounding incision otherwise no erythema), normal bowel sounds. Absent: distended, guarding, rebound, rigid Extremities exam: Present: normal inspection (Extremity exam within normal limits), full ROM, normal capillary refill. Absent: tenderness, pedal edema, joint swelling, calf tenderness Back exam: Absent: CVA tenderness (R), CVA tenderness (L) Neurological exam: Present: alert, oriented X3, CN II-XII intact, reflexes normal. Absent: motor sensory deficit Skin exam: Present: warm, dry, intact, normal color. Absent: rash Course Vital Signs 01/13/18 15:12 Temperature 97.6 F Pulse Rate 102 H Respiratory 20 Rate Blood Pressure 132/80 O2 Sat by Pulse 97 Oximetry Medical Decision Making - Medical Decision Making 32-year-old female presented from for migraine headache nausea vomiting. Patient's symptoms started after having morphine pump placed. Patient will follow-up with her neurologist. Patient was given migraine cocktail this time. Patient is stable no new findings. Return parameters discussed. - Lab Data Result diagrams: 01/13/18 16:20 01/13/18 16:20 Lab Results 01/13/18 01/13/18 Range/Units 16:20 16:20 WBC 10.1 (3.8-10.6) k/uL RBC 5.16 (3.80-5.40) m/uL Hgb 14.8 (11.4-16.0) gm/dL Hct 42.8 (34.0-46.0) % MCV 83.0 (80.0-100.0) fL MCH 28.7 (25.0-35.0) pg MCHC 34.6 (31.0-37.0) g/dL RDW 13.0 (11.5-15.5) % Plt Count 247 (150-450) k/uL Neutrophils % 80 % Lymphocytes % 15 % Monocytes % 4 % Eosinophils % 1 % Basophils % 0 % Neutrophils # 8.0 H (1.3-7.7) k/uL Lymphocytes # 1.5 (1.0-4.8) k/uL Monocytes # 0.4 (0-1.0) k/uL Eosinophils # 0.1 (0-0.7) k/uL Basophils # 0.0 (0-0.2) k/uL Sodium 139 (137-145) mmol/L Potassium 5.4 H (3.5-5.1) mmol/L Chloride 109 H (98-107) mmol/L Carbon Dioxide 18 L (22-30) mmol/L Anion Gap 12 mmol/L BUN 11 (7-17) mg/dL Creatinine 0.61 (0.52-1.04) mg/dL Est GFR (CKD-EPI)AfAm >90 (>60 ml/min/1.73 sqM) Est GFR (CKD-EPI)NonAf >90 (>60 ml/min/1.73 sqM) Glucose 115 H (74-99) mg/dL Calcium 9.3 (8.4-10.2) mg/dL Disposition Clinical Impression: Chronic pain, Nausea and vomiting, Migraine Disposition: HOME SELF-CARE Condition: Stable Instructions: Acute Headache (ED) Additional Instructions: Please return to the Emergency Department if symptoms worsen or any other concerns. Is patient prescribed a controlled substance at d/c from ED?: No Referrals: Sebastian Tena DO [Primary Care Provider] - 1-2 days Time of Disposition: 17:07
[2018-01-13 16:47] LABS: Anion Gap 12 mmol/L; Blood Urea Nitrogen 11 mg/dL (7-17); Calcium 9.3 mg/dL (8.4-10.2); Carbon Dioxide 18 mmol/L (22-30); Chloride 109 mmol/L (98-107); Glucose 115 mg/dL (74-99); Sodium 139 mmol/L (137-145)
[2018-01-13 16:50] LABS: Potassium 5.4 mmol/L (3.5-5.1)
[2018-01-13 16:52] LABS: Basophils % (A) 0 %; Eosinophils # (A) 0.1 k/uL (0-0.7); Eosinophils % (A) 1 %; HCT 42.8 % (34.0-46.0); HGB 14.8 gm/dL (11.4-16.0); Lymphocytes # (A) 1.5 k/uL (1.0-4.8); Lymphocytes % (A) 15 %; MCH 28.7 pg (25.0-35.0); MCHC 34.6 g/dL (31.0-37.0); Mean Platelet Volume 6.3; Monocytes # (A) 0.4 k/uL (0-1.0); Monocytes % (A) 4 %; Neutrophils % (A) 80 %; Platelet Count 247 k/uL (150-450); RBC 5.16 m/uL (3.80-5.40); WBC 10.1 k/uL (3.8-10.6)
[2018-01-13] MEDS ORDERED: HYDROmorphone 1 MG/ML 1 ML SYRINGE IVP STA (16:57)
[2018-01-13] MEDS ORDERED: ONDANSETRON 4 MG ODT STARTER PACK 2 TAB BTL PO STA (17:07)
[2018-01-13 18:27] VITALS: BP 135/77; PULSE 90; RESP 16; TEMP 98
== END 2018-01-13 18:26 | disposition home or self-care (01) ==
LOC: EC 14:45
DX: G43.909 Migraine, unspecified, not intractable, without status migrainosus (principal); G89.29 Other chronic pain; J45.909 Unspecified asthma, uncomplicated; G40.909 Epilepsy, unspecified, not intractable, without status epilepticus; K21.9 Gastro-esophageal reflux disease without esophagitis; E78.5 Hyperlipidemia, unspecified; M19.90 Unspecified osteoarthritis, unspecified site; F43.10 Post-traumatic stress disorder, unspecified; F31.9 Bipolar disorder, unspecified; F41.9 Anxiety disorder, unspecified; Z88.2 Allergy status to sulfonamides; Z79.51 Long term (current) use of inhaled steroids; Z79.899 Other long term (current) drug therapy; Z88.6 Allergy status to analgesic agent; Z91.013 Allergy to seafood; Z88.1 Allergy status to other antibiotic agents; Z88.8 Allergy status to other drugs, medicaments and biological substances; Z86.14 Personal history of Methicillin resistant Staphylococcus aureus infection
CPT/HCPCS: 36415; 80048; 85025; 99283; 96365; 96375 ×4; 96361; J1200; J2550; J2930; J2405; J1170; S0119

== ENCOUNTER 2018-01-17 12:00 | Emergency (ER) | payer MEDICARE, OTHER ==
[2018-01-17 12:21] VITALS: TEMP 97.8
[2018-01-17] MEDS ORDERED: SODIUM CHLORIDE 0.9% 1,000 ML IV ONE (13:15)
[2018-01-17] MEDS ORDERED: ONDANSETRON 4 MG/2 ML VIAL IVP STA (13:16)
[2018-01-17] MEDS ORDERED: HYDROmorphone 1 MG/ML 1 ML SYRINGE IVP STA ×2 (14:05→15:19)
[2018-01-17] MEDS ORDERED: diphenhydrAMINE 50 MG/ML 1 ML VIAL IVP STA (14:05)
[2018-01-17 14:16] LABS: Basophils # (A) 0.1 k/uL (0-0.2); Basophils % (A) 1 %; Eosinophils # (A) 0.2 k/uL (0-0.7); Eosinophils % (A) 2 %; HGB 14.2 gm/dL (11.4-16.0); Lymphocytes # (A) 1.7 k/uL (1.0-4.8); Lymphocytes % (A) 24 %; MCHC 33.8 g/dL (31.0-37.0); MCV 85.9 fL (80.0-100.0); Mean Platelet Volume 6.3; Monocytes # (A) 0.3 k/uL (0-1.0); Monocytes % (A) 5 %; Neutrophils # (A) 4.6 k/uL (1.3-7.7); Neutrophils % (A) 67 %; Platelet Count 293 k/uL (150-450); RBC 4.89 m/uL (3.80-5.40); RDW 13.4 % (11.5-15.5); WBC 6.8 k/uL (3.8-10.6)
[2018-01-17 14:22] LABS: ALT 14 U/L (9-52); AST 14 U/L (14-36); Albumin 4.2 g/dL (3.5-5.0); Alkaline Phosphatase 127 U/L (38-126); Anion Gap 13 mmol/L; Blood Urea Nitrogen 12 mg/dL (7-17); Calcium 9.8 mg/dL (8.4-10.2); Carbon Dioxide 19 mmol/L (22-30); Chloride 110 mmol/L (98-107); Glucose 98 mg/dL (74-99); Potassium 4.3 mmol/L (3.5-5.1); Sodium 142 mmol/L (137-145); Total Bilirubin 0.3 mg/dL (0.2-1.3); Total Protein 6.7 g/dL (6.3-8.2)
[2018-01-17 14:25] VITALS: RESP 16
--- NOTE | 2018-01-17 15:20 | ED ---
General Adult HPI - General Chief complaint: Nausea/Vomiting/Diarrhea Stated complaint: Vomiting, Headache Time Seen by Provider: 01/17/18 12:50 Source: patient Mode of arrival: ambulatory Limitations: no limitations - History of Present Illness Initial comments: 32-year-old female past medical history of chronic migraines and recent pain pump placement by Dr. Shannon for CRPS. Pt presents for vomiting and headache. Pt states that she often get migraines identical to her symptoms today and they induce nausea and vomiting. Pt stayed that her headache is currently 9/10 throbbing headache that began gradually. It has been on and off since pain pump placement. Pt denies dizziness, syncope, visual changes, diplopia, muscle weakness, facial assymetry, fever, chills, IVDU. Pt has been so nauseated she cannot take her medication for headache and presents for nausea and pain mgmt. Upon arrival pt appears uncomfortable but nontoxic. VS stable, pt afebrile. - Related Data Home Medications Medication Instructions Recorded Confirmed Medroxyprogesterone Acetate 150 mg IM Q84D 11/22/13 01/17/18 [Depo-Provera] rOPINIRole HCL [Requip] 1 mg PO DAILY 11/22/13 01/17/18 Pentosan Polysulfate Sodium 100 mg PO BID 02/10/15 01/17/18 [Elmiron] Pantoprazole Sodium [Protonix] 40 mg PO BID 04/20/15 01/17/18 Prazosin HCl [Minipress] 2 mg PO HS 01/04/16 01/17/18 Gabapentin 600 mg PO TID 06/14/16 01/17/18 HYDROcodone/APAP 7.5-325MG [[place] 1 tab PO TID PRN 07/20/16 01/17/18 7.5-325] Hydrochlorothiazide [Hydrodiuril] 25 mg PO DAILY 07/20/16 01/17/18 Paliperidone IM Pt Own [Invega 117 mg IM Q28D 07/20/16 01/17/18 Sustenna] carBAMazepine [TEGretol XR] 200 mg PO HS 07/20/16 01/17/18 Amantadine HCl [Symmetrel] 100 mg PO BID 11/21/16 01/17/18 carBAMazepine [TEGretol XR] 100 mg PO QAM 11/30/16 01/17/18 carBAMazepine [TEGretol XR] 200 mg PO BID 01/03/17 01/17/18 rOPINIRole HCL [Requip] 2 mg PO HS 02/09/17 01/17/18 Dicyclomine [Bentyl] 20 mg PO QID 07/09/17 01/17/18 hydrOXYzine PAMOATE [Vistaril] 25 mg PO TID PRN 11/06/17 01/17/18 Acyclovir [Zovirax] 400 mg PO DAILY 01/13/18 01/17/18 Acyclovir [Zovirax] 800 mg PO 5XD PRN 01/13/18 01/17/18 Albuterol Sulfate [Proair Hfa] 2 puff INHALATION RT-BID PRN 01/13/18 01/17/18 Butalb/Acetaminophen/Caffeine 1 tab PO Q6H PRN 01/13/18 01/17/18 [Fioricet 50-325-40] Fluticasone Propionate [Flovent 1 puff INHALATION RT-BID 01/13/18 01/17/18 Hfa 110 mcg] Gemfibrozil [Lopid] 600 mg PO AC-BID 01/13/18 01/17/18 Montelukast Sodium [Singulair] 10 mg PO HS 01/13/18 01/17/18 Ondansetron HCl [Zofran] 8 mg PO TID PRN 01/13/18 01/17/18 QUEtiapine [SEROquel] 200 mg PO HS 01/13/18 01/17/18 Topiramate [Topamax] 25 mg PO DAILY 01/13/18 01/17/18 tiZANidine HCL [Zanaflex] 4 mg PO TID PRN 01/13/18 01/17/18 Allergies Allergy/AdvReac Type Severity Reaction Status Date / Time azithromycin Allergy Rash/Hives Verified 01/17/18 15:43 [From Zithromax Z-Mehrdad] cimetidine [From Tagamet] Allergy Rash/Hives Verified 01/17/18 15:43 ether [Ether] Allergy Anaphylaxis Verified 01/17/18 15:43 Fish Containing Products Allergy Anaphylaxis Verified 01/17/18 15:43 [Fish] ketorolac tromethamine Allergy Rash/Hives Verified 01/17/18 15:43 [From Toradol] ziprasidone HCl [From Geodon] Allergy Extrapyramidal Verified 01/17/18 15:43 Symptoms fluphenazine HCl AdvReac Extrapyramidal Verified 01/17/18 15:43 [From Prolixin] Symptoms haloperidol [From Haldol] AdvReac Extrapyramidal Verified 01/17/18 15:43 Symptoms Sulfa (Sulfonamide AdvReac Nausea & Verified 01/17/18 15:43 Antibiotics) Vomiting Review of Systems ROS Statement: Those systems with pertinent positive or pertinent negative responses have been documented in the HPI. ROS Other: All systems not noted in ROS Statement are negative. Constitutional: Denies: fever, chills, night sweats Eyes: Denies: vision change ENT: Denies: ear pain, throat pain Respiratory: Denies: cough, dyspnea, wheezes, hemoptysis, stridor Cardiovascular: Denies: chest pain, palpitations, dyspnea on exertion Gastrointestinal: Reports: nausea, vomiting (x1). Denies: abdominal pain, diarrhea, constipation Genitourinary: Denies: urgency, dysuria, frequency Musculoskeletal: Denies: back pain Skin: Denies: rash, lesions Neurological: Reports: headache. Denies: weakness, numbness, paresthesias, confusion, abnormal gait Past Medical History Past Medical History: Asthma, GERD/Reflux, Hyperlipidemia, Musculoskeletal Disorder, Neurologic Disorder, Osteoarthritis (OA), Seizure Disorder Additional Past Medical History / Comment(s): RSD-DERIC FEET, INTERSTITIAL CYSTITIS, BRONCHITIS, HEMORRHOIDS,MIGRAINES, INSOMNIA. VERTIGO, last seizure 4 years ago History of Any Multi-Drug Resistant Organisms: MRSA Date of last positivie culture/infection: 04/20/15 MDRO Source:: Left Axilla Past Surgical History: Adenoidectomy, Back Surgery, Cholecystectomy, Orthopedic Surgery, Tonsillectomy Additional Past Surgical History / Comment(s): bilateral foot surgery d/t rsd, numerous pain clinic procedures, nerve stimulator in back to tx RSD placed in Nov 11 2015, pain pump placement Past Anesthesia/Blood Transfusion Reactions: Previous Problems w/ Anesthesia Additional Past Anesthesia/Blood Transfusion Reaction / Comment(s): Pt recieved blood when she was 2 yrs old after tonsillectomy. WHEN BABY HEART STOPPED TWICE- PT STATED SHE WAS ALLERGIC TO ETHER. Past Psychological History: Anxiety, Bipolar, Depression, PTSD Smoking Status: Never smoker Past Alcohol Use History: None Reported Past Drug Use History: Marijuana - Past Family History Father History Unknown: Yes Family Medical History: Diabetes Mellitus Mother Family Medical History: Cancer, CVA/TIA, Diabetes Mellitus, Myocardial Infarction ([place]) Additional Family Medical History / Comment(s): Mother has had 5 CVAs, 3 MIs and UTERINE CANCER General Exam - General Exam Comments Initial Comments: General: The patient is awake and alert, in no distress, and does not appear acutely ill. Eye: Pupils are equal, round and reactive to light, extra-ocular movements are intact. No nystagmus. No APD. There is normal conjunctiva bilaterally. No signs of icterus. Ears, nose, mouth and throat: There are moist mucous membranes and no oral lesions. Neck: The neck is supple, there is no tenderness or JVD. Cardiovascular: There is a regular rate and rhythm. No murmur, rub or gallop is appreciated. Respiratory: Lungs are clear to auscultation, respirations are non-labored, breath sounds are equal. No wheezes, stridor, rales, or rhonchi. Gastrointestinal: Soft, non-distended, non-tender abdomen without masses or organomegaly noted. There is no rebound or guarding present. No CVA tenderness. Bowel sounds are unremarkable. Musculoskeletal: Normal ROM, no tenderness. Strength 5/5. Sensation intact. Pulses equal bilaterally 2+. Neurological: A&O x 3. CN II-XII intact, There are no obvious motor or sensory deficits. Coordination appears grossly intact. Speech is normal. Skin: Skin is warm and dry and no rashes or lesions are noted. [place] and back and abdomen as surgical sites for fecal pain pump are not erythematous, no evidence of drainage or dehiscence. Psychiatric: Cooperative, appropriate mood & affect, normal judgment. Limitations: no limitations Course Vital Signs 01/17/18 01/17/18 01/17/18 12:18 14:23 15:55 Temperature 97.8 F 97.8 F Pulse Rate 109 H 72 80 Respiratory 18 16 16 Rate Blood Pressure 140/61 135/92 144/97 O2 Sat by Pulse 98 98 96 Oximetry 01/17/18 16:14 Temperature Pulse Rate Respiratory Rate Blood Pressure 134/84 O2 Sat by Pulse Oximetry Medical Decision Making - Medical Decision Making 32yo female presenting with migraine, identical to previous migraines in the past. Patient given Dilaudid for pain management, which which he stated alleviate symptoms. In addition patient was given Zofran for nausea. Labs as noted above. Patient notes that the vomiting during visit. Upon multiple re- examination, patient admits to the significant reduction of symptoms. Patient requesting discharge. Patient was discharged in stable condition with instruction to follow-up with Dr. Shannon in regards to pain pump f/u and chronic migraine. Patient agrees with plan. Case is discussed at length with Dr. Stubbs who agreed with impression plan. Pt discharged in stable condition. - Lab Data Result diagrams: 01/17/18 13:56 01/17/18 13:56 Lab Results 01/17/18 01/17/18 Range/Units 13:56 13:56 WBC 6.8 (3.8-10.6) k/uL RBC 4.89 (3.80-5.40) m/uL Hgb 14.2 (11.4-16.0) gm/dL Hct 42.0 (34.0-46.0) % MCV 85.9 (80.0-100.0) fL MCH 29.0 (25.0-35.0) pg MCHC 33.8 (31.0-37.0) g/dL RDW 13.4 (11.5-15.5) % Plt Count 293 (150-450) k/uL Neutrophils % 67 % Lymphocytes % 24 % Monocytes % 5 % Eosinophils % 2 % Basophils % 1 % Neutrophils # 4.6 (1.3-7.7) k/uL Lymphocytes # 1.7 (1.0-4.8) k/uL Monocytes # 0.3 (0-1.0) k/uL Eosinophils # 0.2 (0-0.7) k/uL Basophils # 0.1 (0-0.2) k/uL Sodium 142 (137-145) mmol/L Potassium 4.3 (3.5-5.1) mmol/L Chloride 110 H (98-107) mmol/L Carbon Dioxide 19 L (22-30) mmol/L Anion Gap 13 mmol/L BUN 12 (7-17) mg/dL Creatinine 0.70 (0.52-1.04) mg/dL Est GFR (CKD-EPI)AfAm >90 (>60 ml/min/1.73 sqM) Est GFR (CKD-EPI)NonAf >90 (>60 ml/min/1.73 sqM) Glucose 98 (74-99) mg/dL Calcium 9.8 (8.4-10.2) mg/dL Total Bilirubin 0.3 (0.2-1.3) mg/dL AST 14 (14-36) U/L ALT 14 (9-52) U/L Alkaline Phosphatase 127 H (38-126) U/L Total Protein 6.7 (6.3-8.2) g/dL Albumin 4.2 (3.5-5.0) g/dL Disposition Clinical Impression: Migraine, Nausea Disposition: HOME SELF-CARE Condition: Good Instructions: Migraine Headache (ED) Additional Instructions: Please use medication as discussed. Please follow-up with neurologist in the next 1-2 days. Please return to emergency room if the symptoms increase or worsen or for any other concerns. Is patient prescribed a controlled substance at d/c from ED?: No Referrals: Sebastian Tena DO [Primary Care Provider] - 1-2 days Casper Shannon MD [STAFF PHYSICIAN] - 1-2 days Time of Disposition: 15:48
[2018-01-17] MEDS ORDERED: ONDANSETRON ODT 4 MG TAB PO STA (15:46)
[2018-01-17 15:59] VITALS: PULSE 80
[2018-01-17 16:15] VITALS: BP 134/84
== END 2018-01-17 16:28 | disposition home or self-care (01) ==
LOC: EC 12:00
DX: G43.909 Migraine, unspecified, not intractable, without status migrainosus (principal); J45.909 Unspecified asthma, uncomplicated; K21.9 Gastro-esophageal reflux disease without esophagitis; E78.5 Hyperlipidemia, unspecified; M19.90 Unspecified osteoarthritis, unspecified site; G40.909 Epilepsy, unspecified, not intractable, without status epilepticus; F31.9 Bipolar disorder, unspecified; F41.9 Anxiety disorder, unspecified; F43.10 Post-traumatic stress disorder, unspecified; Z86.14 Personal history of Methicillin resistant Staphylococcus aureus infection; Z79.51 Long term (current) use of inhaled steroids; Z79.899 Other long term (current) drug therapy; Z88.1 Allergy status to other antibiotic agents; Z88.6 Allergy status to analgesic agent; Z91.013 Allergy to seafood; Z88.8 Allergy status to other drugs, medicaments and biological substances; Z88.2 Allergy status to sulfonamides
CPT/HCPCS: 99284; 96374; 96375 ×2; 96376; 36415; 80053; 85025; 96361; J1200; J2405; J1170

== ENCOUNTER 2018-01-27 17:25 | Emergency (ER) | payer MEDICARE, OTHER ==
[2018-01-27 17:30] VITALS: TEMP 97.9
[2018-01-27] MEDS ORDERED: METOCLOPRAMIDE 5 MG/ML 2 ML VIAL IVP STA (18:16)
[2018-01-27] MEDS ORDERED: diphenhydrAMINE 50 MG/ML 1 ML VIAL IVP STA (18:16)
[2018-01-27] MEDS ORDERED: KETOROLAC 30 MG/ML 1 ML VIAL IVP STA (18:16)
[2018-01-27] MEDS ORDERED: SODIUM CHLORIDE 0.9% 1,000 ML IV STA (18:21)
--- NOTE | 2018-01-27 18:28 | ED ---
General Adult HPI - General Chief complaint: Headache Stated complaint: Migraine, Vomitting Time Seen by Provider: 01/27/18 17:56 Source: patient, RN notes reviewed Mode of arrival: ambulatory Limitations: no limitations - History of Present Illness Initial comments: 32-year-old female with a past medical history of migraines presents to the emergency department for a chief complaint of headache. Patient states this is consistent with her past migraines. She denies any atypical symptoms. She states she has photophobia. She describes the pain as a left-sided throbbing pain. She admits to nausea and vomiting. Patient states she just had a pain pump infusing Dilaudid placed. She states she is not sure if this is making her nauseous or the migraine. Patient has no other complaints at this time including shortness of breath, chest pain, abdominal pain, headache, or visual changes. - Related Data Home Medications Medication Instructions Recorded Confirmed Medroxyprogesterone Acetate 150 mg IM Q84D 11/22/13 01/27/18 [Depo-Provera] rOPINIRole HCL [Requip] 1 mg PO DAILY 11/22/13 01/27/18 Pentosan Polysulfate Sodium 100 mg PO BID 02/10/15 01/27/18 [Elmiron] Pantoprazole Sodium [Protonix] 40 mg PO BID 04/20/15 01/27/18 Prazosin HCl [Minipress] 2 mg PO HS 01/04/16 01/27/18 Gabapentin 600 mg PO TID 06/14/16 01/27/18 HYDROcodone/APAP 7.5-325MG [[place] 1 tab PO TID PRN 07/20/16 01/27/18 7.5-325] Hydrochlorothiazide [Hydrodiuril] 25 mg PO DAILY 07/20/16 01/27/18 Paliperidone IM Pt Own [Invega 117 mg IM Q28D 07/20/16 01/27/18 Sustenna] carBAMazepine [TEGretol XR] 200 mg PO HS 07/20/16 01/27/18 Amantadine HCl [Symmetrel] 100 mg PO BID 11/21/16 01/27/18 carBAMazepine [TEGretol XR] 100 mg PO QAM 11/30/16 01/27/18 carBAMazepine [TEGretol XR] 200 mg PO BID 01/03/17 01/27/18 rOPINIRole HCL [Requip] 2 mg PO HS 02/09/17 01/27/18 Dicyclomine [Bentyl] 20 mg PO QID 07/09/17 01/27/18 hydrOXYzine PAMOATE [Vistaril] 25 mg PO TID PRN 11/06/17 01/27/18 Acyclovir [Zovirax] 400 mg PO DAILY 01/13/18 01/27/18 Acyclovir [Zovirax] 800 mg PO 5XD PRN 01/13/18 01/27/18 Albuterol Sulfate [Proair Hfa] 2 puff INHALATION RT-BID PRN 01/13/18 01/27/18 Butalb/Acetaminophen/Caffeine 1 tab PO Q6H PRN 01/13/18 01/27/18 [Fioricet 50-325-40] Fluticasone Propionate [Flovent 1 puff INHALATION RT-BID 01/13/18 01/27/18 Hfa 110 mcg] Gemfibrozil [Lopid] 600 mg PO AC-BID 01/13/18 01/27/18 Montelukast Sodium [Singulair] 10 mg PO HS 01/13/18 01/27/18 Ondansetron HCl [Zofran] 8 mg PO TID PRN 01/13/18 01/27/18 QUEtiapine [SEROquel] 200 mg PO HS 01/13/18 01/27/18 Topiramate [Topamax] 25 mg PO DAILY 01/13/18 01/27/18 tiZANidine HCL [Zanaflex] 4 mg PO TID PRN 01/13/18 01/27/18 Dilaudid Pain Pump 1 dose INTRATHECA CONTINUOUS 01/27/18 01/27/18 Allergies Allergy/AdvReac Type Severity Reaction Status Date / Time azithromycin Allergy Rash/Hives Verified 01/27/18 18:45 [From Zithromax Z-Mehrdad] cimetidine [From Tagamet] Allergy Rash/Hives Verified 01/27/18 18:45 ether [Ether] Allergy Anaphylaxis Verified 01/27/18 18:45 Fish Containing Products Allergy Anaphylaxis Verified 01/27/18 18:45 [Fish] ketorolac tromethamine Allergy Rash/Hives Verified 01/27/18 18:45 [From Toradol] ziprasidone HCl [From Geodon] Allergy Extrapyramidal Verified 01/27/18 18:45 Symptoms fluphenazine HCl AdvReac Extrapyramidal Verified 01/27/18 18:45 [From Prolixin] Symptoms haloperidol [From Haldol] AdvReac Extrapyramidal Verified 01/27/18 18:45 Symptoms Sulfa (Sulfonamide AdvReac Nausea & Verified 01/27/18 18:45 Antibiotics) Vomiting Review of Systems ROS Statement: Those systems with pertinent positive or pertinent negative responses have been documented in the HPI. ROS Other: All systems not noted in ROS Statement are negative. Past Medical History Past Medical History: Asthma, GERD/Reflux, Hyperlipidemia, Musculoskeletal Disorder, Neurologic Disorder, Osteoarthritis (OA), Seizure Disorder Additional Past Medical History / Comment(s): RSD-DERIC FEET, INTERSTITIAL CYSTITIS, BRONCHITIS, HEMORRHOIDS,MIGRAINES, INSOMNIA. VERTIGO, last seizure 4 years ago History of Any Multi-Drug Resistant Organisms: MRSA Date of last positivie culture/infection: 04/20/15 MDRO Source:: Left Axilla Past Surgical History: Adenoidectomy, Back Surgery, Cholecystectomy, Orthopedic Surgery, Tonsillectomy Additional Past Surgical History / Comment(s): bilateral foot surgery d/t rsd, numerous pain clinic procedures, nerve stimulator in back to tx RSD placed in Nov 11 2015, pain pump placement Past Anesthesia/Blood Transfusion Reactions: Previous Problems w/ Anesthesia Additional Past Anesthesia/Blood Transfusion Reaction / Comment(s): Pt recieved blood when she was 2 yrs old after tonsillectomy. WHEN BABY HEART STOPPED TWICE- PT STATED SHE WAS ALLERGIC TO ETHER. Past Psychological History: Anxiety, Bipolar, Depression, PTSD Smoking Status: Never smoker Past Alcohol Use History: None Reported Past Drug Use History: Marijuana - Past Family History Father History Unknown: Yes Family Medical History: Diabetes Mellitus Mother Family Medical History: Cancer, CVA/TIA, Diabetes Mellitus, Myocardial Infarction ([place]) Additional Family Medical History / Comment(s): Mother has had 5 CVAs, 3 MIs and UTERINE CANCER General Exam Limitations: no limitations General appearance: alert, in no apparent distress Head exam: Present: atraumatic, normocephalic, normal inspection Eye exam: Present: normal appearance, PERRL, EOMI. Absent: scleral icterus, conjunctival injection, periorbital swelling ENT exam: Present: normal exam, normal oropharynx ([place] midline), mucous membranes moist, TM's normal bilaterally, normal external ear exam Neck exam: Present: normal inspection, full ROM. Absent: tenderness, meningismus, lymphadenopathy Respiratory exam: Present: normal lung sounds bilaterally. Absent: respiratory distress, wheezes, rales, rhonchi, stridor Cardiovascular Exam: Present: regular rate, normal rhythm, normal heart sounds. Absent: systolic murmur, diastolic murmur, rubs, gallop, clicks Neurological exam: Present: alert, oriented X3, CN II-XII intact, normal gait. Absent: motor sensory deficit Psychiatric exam: Present: normal affect, normal mood Course Vital Signs 01/27/18 01/27/18 17:29 19:38 Temperature 97.9 F Pulse Rate 120 H 91 Respiratory 18 16 Rate Blood Pressure 150/92 147/85 O2 Sat by Pulse 97 98 Oximetry Medical Decision Making - Medical Decision Making 32-year-old female well known to this emergency department presents for a chief complaint of migraine. Patient states this is consistent with migraines in the past. She describes it as a left-sided throbbing headache with photophobia. Patient currently has a Dilaudid pump which was placed 2 weeks ago. She is complaining of itching since that time. No focal neuro deficits on exam. Patient was given Toradol Reglan and Benadryl which significantly helps with pain and nausea. She was also given Pepcid as she still felt somewhat pruritic. No evidence of angioedema. At this time patient states she is ready to go home. She will follow-up with pain management and primary care in 1-2 days. She'll return if she has any worsening symptoms. Disposition Clinical Impression: Headache, History of migraine Disposition: ADMITTED IP TO THIS [facility] Instructions: Acute Headache (ED) Additional Instructions: Please continue pain medications at home. Please follow-up with primary care in 1-2 days. Return to the emergency department if you have any worsening symptoms. Is patient prescribed a controlled substance at d/c from ED?: No Referrals: Sebastian Tena DO [Primary Care Provider] - 1-2 days Time of Disposition: 20:00
[2018-01-27] MEDS ORDERED: FAMOTIDINE 20 MG/2 ML VIAL IV STA (19:13)
[2018-01-27 19:39] VITALS: BP 147/85; PULSE 91; RESP 16
== END 2018-01-27 20:15 | disposition other institution (70) ==
LOC: EC 17:25
DX: G43.909 Migraine, unspecified, not intractable, without status migrainosus (principal); F31.9 Bipolar disorder, unspecified; G40.909 Epilepsy, unspecified, not intractable, without status epilepticus; K21.9 Gastro-esophageal reflux disease without esophagitis; J45.909 Unspecified asthma, uncomplicated; F41.9 Anxiety disorder, unspecified; E78.5 Hyperlipidemia, unspecified; Z79.51 Long term (current) use of inhaled steroids; Z79.899 Other long term (current) drug therapy; Z88.1 Allergy status to other antibiotic agents; Z88.8 Allergy status to other drugs, medicaments and biological substances; Z91.013 Allergy to seafood; Z88.6 Allergy status to analgesic agent; Z88.2 Allergy status to sulfonamides; Z91.048 Other nonmedicinal substance allergy status
CPT/HCPCS: 99284; 96374; 96375 ×2; 96361; J1200; J2765; J1885

== ENCOUNTER 2018-03-11 18:24 | Emergency (ER) | payer MEDICARE, OTHER ==
[2018-03-11] MEDS ORDERED: methylPREDNISolone SOD SUCCI 125 MG/2 ML VIAL IM ONE (19:00)
[2018-03-11] MEDS ORDERED: BENZONATATE 100 MG CAP PO STA (19:00)
--- NOTE | 2018-03-11 19:24 | ED ---
URI HPI - General Chief Complaint: Upper Respiratory Infection Stated Complaint: Cough/SOB Time Seen by Provider: 03/11/18 18:40 Source: patient Mode of arrival: ambulatory Limitations: no limitations - History of Present Illness Initial Comments: 32-year-old female patient presents to the emergency department today for evaluation of cough, shortness of breath, and chest tightness. Patient states she's been sick with upper respiratory symptoms for the last 2 weeks. Patient states her cough is worsening. States she's had multiple episodes of posttussive vomiting. She is instructed to deep breath her chest feels tight. States she has been using her albuterol nebulizer and inhaler at home doesn't seem to be improving her symptoms. Patient states she feels feverish and chilled. She denies taking her temperature at home. States that she is coughing up green sputum. She denies any hemoptysis. She denies any history of smoking cigarettes. Patient denies any recent rash, abdominal pain, nausea, vomiting, diarrhea, constipation, back pain, numbness, tingling, dizziness, weakness, hematuria, dysuria, urinary urgency, urinary frequency, headache, visual changes, or any other complaints. - Related Data Home Medications Medication Instructions Recorded Confirmed Medroxyprogesterone Acetate 150 mg IM Q84D 11/22/13 03/11/18 [Depo-Provera] rOPINIRole HCL [Requip] 1 mg PO QAM 11/22/13 03/11/18 Pentosan Polysulfate Sodium 100 mg PO BID 02/10/15 03/11/18 [Elmiron] Pantoprazole Sodium [Protonix] 40 mg PO BID 04/20/15 03/11/18 HYDROcodone/APAP 7.5-325MG [[place] 1 tab PO TID PRN 07/20/16 03/11/18 7.5-325] Hydrochlorothiazide [Hydrodiuril] 25 mg PO DAILY 07/20/16 03/11/18 Paliperidone IM Pt Own [Invega 117 mg IM Q28D 07/20/16 03/11/18 Sustenna] carBAMazepine [TEGretol XR] 200 mg PO HS 07/20/16 03/11/18 Amantadine HCl [Symmetrel] 100 mg PO BID 11/21/16 03/11/18 carBAMazepine [TEGretol XR] 100 mg PO QAM 11/30/16 03/11/18 carBAMazepine [TEGretol XR] 200 mg PO BID 01/03/17 03/11/18 rOPINIRole HCL [Requip] 2 mg PO HS 02/09/17 03/11/18 Dicyclomine [Bentyl] 20 mg PO QID 07/09/17 03/11/18 hydrOXYzine PAMOATE [Vistaril] 25 mg PO TID PRN 11/06/17 03/11/18 Acyclovir [Zovirax] 400 mg PO DAILY 01/13/18 03/11/18 Acyclovir [Zovirax] 800 mg PO 5XD PRN 01/13/18 03/11/18 Albuterol Sulfate [Proair Hfa] 2 puff INHALATION RT-BID PRN 01/13/18 03/11/18 Butalb/Acetaminophen/Caffeine 1 tab PO Q6H PRN 01/13/18 03/11/18 [Fioricet 50-325-40] Fluticasone Propionate [Flovent 1 puff INHALATION RT-BID 01/13/18 03/11/18 Hfa 110 mcg] Gemfibrozil [Lopid] 600 mg PO AC-BID 01/13/18 03/11/18 Montelukast Sodium [Singulair] 10 mg PO HS 01/13/18 03/11/18 Ondansetron HCl [Zofran] 8 mg PO TID PRN 01/13/18 03/11/18 QUEtiapine [SEROquel] 200 mg PO HS 01/13/18 03/11/18 Topiramate [Topamax] 25 mg PO DAILY 01/13/18 03/11/18 tiZANidine HCL [Zanaflex] 4 mg PO TID PRN 01/13/18 03/11/18 Dilaudid Pain Pump 1 dose INTRATHECA CONTINUOUS 01/27/18 03/11/18 Gabapentin [Neurontin] 900 mg PO TID 03/11/18 03/11/18 Previous Rx's Medication Instructions Recorded Promethazine 6.25MG/5Ml [Phenergan 6.25 mg PO Q6H #100 ml 03/11/18 Syrup] predniSONE 50 mg PO DAILY #5 tablet 03/11/18 Allergies Allergy/AdvReac Type Severity Reaction Status Date / Time azithromycin Allergy Rash/Hives Verified 03/11/18 19:04 [From Zithromax Z-Mehrdad] cimetidine [From Tagamet] Allergy Rash/Hives Verified 03/11/18 19:04 ether [Ether] Allergy Anaphylaxis Verified 03/11/18 19:04 Fish Containing Products Allergy Anaphylaxis Verified 03/11/18 19:04 [Fish] ketorolac tromethamine Allergy Rash/Hives Verified 03/11/18 19:04 [From Toradol] ziprasidone HCl [From Geodon] Allergy Extrapyramidal Verified 03/11/18 19:04 Symptoms fluphenazine HCl AdvReac Extrapyramidal Verified 03/11/18 19:04 [From Prolixin] Symptoms haloperidol [From Haldol] AdvReac Extrapyramidal Verified 03/11/18 19:04 Symptoms Sulfa (Sulfonamide AdvReac Nausea & Verified 03/11/18 19:04 Antibiotics) Vomiting Review of Systems ROS Statement: Those systems with pertinent positive or pertinent negative responses have been documented in the HPI. ROS Other: All systems not noted in ROS Statement are negative. Past Medical History Past Medical History: Asthma, GERD/Reflux, Hyperlipidemia, Musculoskeletal Disorder, Neurologic Disorder, Osteoarthritis (OA), Seizure Disorder Additional Past Medical History / Comment(s): RSD-DERIC FEET, INTERSTITIAL CYSTITIS, BRONCHITIS, HEMORRHOIDS,MIGRAINES, INSOMNIA. VERTIGO, last seizure 4 years ago History of Any Multi-Drug Resistant Organisms: MRSA Date of last positivie culture/infection: 04/20/15 MDRO Source:: Left Axilla Past Surgical History: Adenoidectomy, Back Surgery, Cholecystectomy, Orthopedic Surgery, Tonsillectomy Additional Past Surgical History / Comment(s): bilateral foot surgery d/t rsd, numerous pain clinic procedures, nerve stimulator in back to tx RSD placed in Nov 11 2015, pain pump placement Past Anesthesia/Blood Transfusion Reactions: Previous Problems w/ Anesthesia Additional Past Anesthesia/Blood Transfusion Reaction / Comment(s): Pt recieved blood when she was 2 yrs old after tonsillectomy. WHEN BABY HEART STOPPED TWICE- PT STATED SHE WAS ALLERGIC TO ETHER. Past Psychological History: Anxiety, Bipolar, Depression, PTSD Smoking Status: Never smoker Past Alcohol Use History: None Reported Past Drug Use History: Marijuana - Past Family History Father History Unknown: Yes Family Medical History: Diabetes Mellitus Mother Family Medical History: Cancer, CVA/TIA, Diabetes Mellitus, Myocardial Infarction ([place]) Additional Family Medical History / Comment(s): Mother has had 5 CVAs, 3 MIs and UTERINE CANCER General Exam Limitations: no limitations General appearance: alert, in no apparent distress, other (This is a well- developed, well-nourished adult female patient in no acute distress. Vital signs upon presentation are temperature 98.2F, pulse 107, respirations 16, blood pressure 150/105, pulse ox 99% on room air.) Eye exam: Present: normal appearance, PERRL, EOMI. Absent: scleral icterus, conjunctival injection, periorbital swelling ENT exam: Present: normal exam, normal oropharynx, mucous membranes moist Respiratory exam: Present: normal lung sounds bilaterally. Absent: respiratory distress, wheezes, rales, rhonchi, stridor Cardiovascular Exam: Present: regular rate, normal rhythm, normal heart sounds. Absent: systolic murmur, diastolic murmur, rubs, gallop, clicks GI/Abdominal exam: Present: soft, normal bowel sounds. Absent: distended, tenderness, guarding, rebound, rigid Neurological exam: Present: alert, oriented X3, CN II-XII intact Psychiatric exam: Present: normal affect, normal mood Skin exam: Present: warm, dry, intact, normal color. Absent: rash Course Vital Signs 03/11/18 03/11/18 18:27 20:26 Temperature 98.2 F 97.2 F L Pulse Rate 107 H 56 L Respiratory 16 17 Rate Blood Pressure 150/105 117/72 O2 Sat by Pulse 99 100 Oximetry Medical Decision Making - Medical Decision Making 32-year-old female patient presented to the emergency department today for complaints of cough and shortness of breath. Physical examination is unremarkable. Lungs are clear to auscultation. Chest x-ray showed no acute cardiopulmonary process. Patient symptoms and physical exam findings are consistent with viral upper respiratory infection may be progressing to acute bronchitis. We'll treat with prednisone. She does have albuterol at home she is instructed to continue this. She'll be given cough syrup. She is instructed to follow-up with her primary care physician for recheck in 1-2 days. Return parameters are discussed in detail. She verbalizes understanding and agrees with this plan. - Radiology Data Radiology results: report reviewed, image reviewed Two-view x-ray of the chest is obtained. Report was reviewed in its entirety. Impression by Dr. Sterling Proctor shows no acute process. Disposition Clinical Impression: Acute bronchitis Disposition: HOME SELF-CARE Condition: Good Instructions: Acute Bronchitis (ED) Additional Instructions: Take medications as directed. Follow up with your primary care physician for recheck in 1-2 days. Return immediately for any new, worsening, or concerning symptoms. Prescriptions: predniSONE 50 mg PO DAILY #5 tablet Promethazine 6.25MG/5Ml [Phenergan Syrup] 6.25 mg PO Q6H #100 ml Is patient prescribed a controlled substance at d/c from ED?: No Referrals: Sebastian Tena DO [Primary Care Provider] - 1-2 days Time of Disposition: 20:05
--- NOTE | 2018-03-11 19:40 | XR ---
EXAMINATION: XR chest 2V DATE AND TIME: 03/11/2018 7:30 PM CLINICAL INDICATION: PHH; Pain TECHNIQUE: Departmental protocol COMPARISON: 12/22/2016 FINDINGS: The lungs are clear. The pleural spaces are negative. The cardiac silhouette is not enlarged. The remainder of the mediastinal silhouette is unremarkable. The skeletal structures and soft tissues are negative for acute findings. IMPRESSION: NO ACUTE PROCESS.
[2018-03-11] MEDS ORDERED: ONDANSETRON 4 MG ODT STARTER PACK 2 TAB BTL PO STA (20:05)
[2018-03-11] MEDS ORDERED: KETOROLAC 30 MG/ML 1 ML VIAL IM STA (20:05)
[2018-03-11] MEDS ORDERED: diphenhydrAMINE 25 MG CAP PO STA (20:05)
[2018-03-11 20:26] VITALS: BP 117/72; PULSE 56; RESP 17; TEMP 97.2
== END 2018-03-11 20:29 | disposition home or self-care (01) ==
LOC: EC 18:24
DX: J20.9 Acute bronchitis, unspecified (principal); J45.909 Unspecified asthma, uncomplicated; E78.5 Hyperlipidemia, unspecified; N30.10 Interstitial cystitis (chronic) without hematuria; K21.9 Gastro-esophageal reflux disease without esophagitis; G90.523 Complex regional pain syndrome I of lower limb, bilateral; G40.909 Epilepsy, unspecified, not intractable, without status epilepticus; F31.9 Bipolar disorder, unspecified; F41.9 Anxiety disorder, unspecified; Z88.1 Allergy status to other antibiotic agents; Z88.2 Allergy status to sulfonamides; Z88.6 Allergy status to analgesic agent; Z88.8 Allergy status to other drugs, medicaments and biological substances; Z91.013 Allergy to seafood; Z91.048 Other nonmedicinal substance allergy status; Z79.51 Long term (current) use of inhaled steroids; Z79.899 Other long term (current) drug therapy; Z79.3 Long term (current) use of hormonal contraceptives; Z86.14 Personal history of Methicillin resistant Staphylococcus aureus infection; Z86.69 Personal history of other diseases of the nervous system and sense organs; Z96.89 Presence of other specified functional implants; Z90.89 Acquired absence of other organs; Z82.49 Family history of ischemic heart disease and other diseases of the circulatory system
CPT/HCPCS: 71046; 99284; 96372 ×2; J2930; J1885; S0119

== ENCOUNTER 2018-03-14 12:36 | Inpatient (IN) | payer MEDICARE, OTHER ==
[2018-03-14] MEDS ORDERED: IPRATROPIUM 0.5 MG/2.5 ML NEBU INHALATION STA (13:07)
[2018-03-14] MEDS ORDERED: ALBUTEROL NEBULIZED 2.5 MG/3 ML INHALATION STA (13:07)
[2018-03-14] MEDS ORDERED: DEXAMETHASONE SOD PHOSPHATE 10 MG/ML 1 ML VIAL IV STA (13:08)
--- NOTE | 2018-03-14 13:11 | ED ---
General Adult HPI - General Stated complaint: coughing up blood - History of Present Illness Initial comments: Dictation was produced using [employer] dictation software. please excuse any grammatical, word or spelling errors. Chief Complaint: 32-year-old female with history of asthma presents with difficulty in breathing. History of Present Illness: He is a 32-year-old female sent in by her registered dietitian. Patient has a past medical history of severe asthma. Patient was sent in by registered dietitian for severe asthma exacerbation. Patient states she 's been feeling ill for the last 2-3 days. She does report some chest tightness which is exacerbated with coughing. Patient states she's been taking her medications at home however has not been improving her symptoms. Patient does report some constitutional symptoms. The ROS documented in this emergency department record has been reviewed and confirmed by me. Those systems with pertinent positive or negative responses have been documented in the HPI. All other systems are other negative and/or noncontributory. - Related Data Home Medications Medication Instructions Recorded Confirmed Medroxyprogesterone Acetate 150 mg IM Q84D 11/22/13 03/14/18 [Depo-Provera] rOPINIRole HCL [Requip] 1 mg PO QAM 11/22/13 03/14/18 Pentosan Polysulfate Sodium 100 mg PO BID 02/10/15 03/14/18 [Elmiron] Pantoprazole Sodium [Protonix] 40 mg PO BID 04/20/15 03/14/18 HYDROcodone/APAP 7.5-325MG [[place] 1 tab PO TID PRN 07/20/16 03/14/18 7.5-325] Hydrochlorothiazide [Hydrodiuril] 25 mg PO DAILY 07/20/16 03/14/18 Paliperidone IM Pt Own [Invega 117 mg IM Q28D 07/20/16 03/14/18 Sustenna] carBAMazepine [TEGretol XR] 200 mg PO HS 07/20/16 03/14/18 Amantadine HCl [Symmetrel] 100 mg PO BID 11/21/16 03/14/18 carBAMazepine [TEGretol XR] 100 mg PO QAM 11/30/16 03/14/18 carBAMazepine [TEGretol XR] 200 mg PO BID 01/03/17 03/14/18 rOPINIRole HCL [Requip] 2 mg PO HS 02/09/17 03/14/18 Dicyclomine [Bentyl] 20 mg PO TID 07/09/17 03/14/18 hydrOXYzine PAMOATE [Vistaril] 25 mg PO TID PRN 11/06/17 03/14/18 Acyclovir [Zovirax] 400 mg PO DAILY PRN 01/13/18 03/14/18 Acyclovir [Zovirax] 800 mg PO DAILY PRN 01/13/18 03/14/18 Albuterol Sulfate [Proair Hfa] 2 puff INHALATION RT-BID PRN 01/13/18 03/14/18 Butalb/Acetaminophen/Caffeine 1 tab PO Q8H PRN 01/13/18 03/14/18 [Fioricet 50-325-40] Fluticasone Propionate [Flovent 2 puff INHALATION RT-DAILY PRN 01/13/18 03/14/18 Hfa 110 mcg] Gemfibrozil [Lopid] 600 mg PO BID 01/13/18 03/14/18 Ondansetron HCl [Zofran] 8 mg PO TID PRN 01/13/18 03/14/18 QUEtiapine [SEROquel] 200 mg PO HS 01/13/18 03/14/18 Topiramate [Topamax] 25 mg PO DAILY 01/13/18 03/14/18 tiZANidine HCL [Zanaflex] 4 mg PO TID PRN 01/13/18 03/14/18 Dilaudid Pain Pump 1 dose INTRATHECA CONTINUOUS 01/27/18 03/14/18 Gabapentin [Neurontin] 300 mg PO TID 03/11/18 03/14/18 Allergies Allergy/AdvReac Type Severity Reaction Status Date / Time azithromycin Allergy Rash/Hives Verified 03/14/18 13:59 [From Zithromax Z-Mehrdad] cimetidine [From Tagamet] Allergy Rash/Hives Verified 03/14/18 13:59 ether [Ether] Allergy Anaphylaxis Verified 03/14/18 13:59 Fish Containing Products Allergy Anaphylaxis Verified 03/14/18 13:59 [Fish] ketorolac tromethamine Allergy Rash/Hives Verified 03/14/18 13:59 [From Toradol] ziprasidone HCl [From Geodon] Allergy Extrapyramidal Verified 03/14/18 13:59 Symptoms fluphenazine HCl AdvReac Extrapyramidal Verified 03/14/18 13:59 [From Prolixin] Symptoms haloperidol [From Haldol] AdvReac Extrapyramidal Verified 03/14/18 13:59 Symptoms Sulfa (Sulfonamide AdvReac Nausea & Verified 03/14/18 13:59 Antibiotics) Vomiting Review of Systems ROS Statement: Those systems with pertinent positive or pertinent negative responses have been documented in the HPI. ROS Other: All systems not noted in ROS Statement are negative. Past Medical History Past Medical History: Asthma, GERD/Reflux, Hyperlipidemia, Musculoskeletal Disorder, Neurologic Disorder, Osteoarthritis (OA), Seizure Disorder Additional Past Medical History / Comment(s): RSD-DERIC FEET, INTERSTITIAL CYSTITIS, BRONCHITIS, HEMORRHOIDS,MIGRAINES, INSOMNIA. VERTIGO, last seizure 4 years ago History of Any Multi-Drug Resistant Organisms: MRSA Date of last positivie culture/infection: 04/20/15 MDRO Source:: Left Axilla Past Surgical History: Adenoidectomy, Back Surgery, Cholecystectomy, Orthopedic Surgery, Tonsillectomy Additional Past Surgical History / Comment(s): bilateral foot surgery d/t rsd, numerous pain clinic procedures, nerve stimulator in back to tx RSD placed in Nov 11 2015, pain pump placement Past Anesthesia/Blood Transfusion Reactions: Previous Problems w/ Anesthesia Additional Past Anesthesia/Blood Transfusion Reaction / Comment(s): Pt recieved blood when she was 2 yrs old after tonsillectomy. WHEN BABY HEART STOPPED TWICE- PT STATED SHE WAS ALLERGIC TO ETHER. Past Psychological History: Anxiety, Bipolar, Depression, PTSD Smoking Status: Never smoker Past Alcohol Use History: None Reported Past Drug Use History: Marijuana - Past Family History Father History Unknown: Yes Family Medical History: Diabetes Mellitus Mother Family Medical History: Cancer, CVA/TIA, Diabetes Mellitus, Myocardial Infarction ([place]) Additional Family Medical History / Comment(s): Mother has had 5 CVAs, 3 MIs and UTERINE CANCER General Exam - General Exam Comments Initial Comments: PHYSICAL EXAM: General Impression: Alert and oriented x3, coughing profusely, dyspneic HEENT: Normocephalic atraumatic, extra-ocular movements intact, pupils equal and reactive to light bilaterally, mucous membranes moist. Cardiovascular: Heart regular rate and rhythm, S1&S2 audible, no murmurs, rubs or gallops Chest: Severe wheezing bilaterally Abdomen: Bowel sounds present, abdomen soft, non-tender, non-distended, no organomegaly Musculoskeletal: Pulses present and equal in all extremities, no peripheral edema Motor: Power 5/5 bilaterally, no focal deficits noted Neurological: CN II-XII grossly intact, no focal motor or sensory deficits noted Skin: Intact with no visualized rashes Psych: Anxious Course Vital Signs 03/14/18 03/14/18 03/14/18 13:10 13:30 14:01 Temperature 97.9 F Pulse Rate 129 H 120 H 108 H Respiratory 28 H 20 Rate Blood Pressure 123/106 O2 Sat by Pulse 96 96 Oximetry 03/14/18 03/14/18 14:03 15:41 Temperature 97.9 F Pulse Rate 103 H 98 Respiratory 18 16 Rate Blood Pressure 135/88 O2 Sat by Pulse 96 95 Oximetry Medical Decision Making - Medical Decision Making ED course: 32-year-old female with past medical history of asthma presents with status asthmaticus. Laboratory evaluation obtained. CBC, metabolic panel, influenza test was negative. X-ray shows no infiltrate within the lingula. She treated with steroids, antibiotics. She is also given magnesium. She'll be admitted for status asthmaticus and pneumonia. - Lab Data Result diagrams: 03/14/18 13:32 03/14/18 13:32 Lab Results 03/14/18 03/14/18 03/14/18 Range/Units 13:32 13:32 13:32 WBC 9.0 (3.8-10.6) k/uL RBC 5.29 (3.80-5.40) m/uL Hgb 15.6 (11.4-16.0) gm/dL Hct 44.4 (34.0-46.0) % MCV 83.8 (80.0-100.0) fL MCH 29.4 (25.0-35.0) pg MCHC 35.1 (31.0-37.0) g/dL RDW 13.7 (11.5-15.5) % Plt Count 324 (150-450) k/uL Neutrophils % 70 % Lymphocytes % 19 % Monocytes % 8 % Eosinophils % 2 % Basophils % 1 % Neutrophils # 6.4 (1.3-7.7) k/uL Lymphocytes # 1.7 (1.0-4.8) k/uL Monocytes # 0.7 (0-1.0) k/uL Eosinophils # 0.2 (0-0.7) k/uL Basophils # 0.1 (0-0.2) k/uL Sodium 141 (137-145) mmol/L Potassium 3.5 (3.5-5.1) mmol/L Chloride 99 (98-107) mmol/L Carbon Dioxide 27 (22-30) mmol/L Anion Gap 15 mmol/L BUN 16 (7-17) mg/dL Creatinine 0.75 (0.52-1.04) mg/dL Est GFR (CKD-EPI)AfAm >90 (>60 ml/min/1.73 sqM) Est GFR (CKD-EPI)NonAf >90 (>60 ml/min/1.73 sqM) Glucose 103 H (74-99) mg/dL Calcium 10.3 H (8.4-10.2) mg/dL Magnesium 2.1 (1.6-2.3) mg/dL HCG, Quant <2.4 mIU/mL Influenza Type A RNA Not Detected (Not Detectd) Influenza Type B (PCR) Not Detected (Not Detectd) Disposition Clinical Impression: Pneumonia, Status asthmaticus Disposition: ADMITTED IP TO THIS HOSP Condition: Fair Referrals: Sebastian Tena DO [Primary Care Provider] - 1-2 days Decision Time: 16:15
[2018-03-14] MEDS ORDERED: SODIUM CHLORIDE 0.9% 1,000 ML IV STA (13:14)
[2018-03-14 14:09] LABS: Anion Gap 15 mmol/L; Blood Urea Nitrogen 16 mg/dL (7-17); Calcium 10.3 mg/dL (8.4-10.2); Carbon Dioxide 27 mmol/L (22-30); Chloride 99 mmol/L (98-107); Glucose 103 mg/dL (74-99); Magnesium 2.1 mg/dL (1.6-2.3); Potassium 3.5 mmol/L (3.5-5.1); Sodium 141 mmol/L (137-145)
[2018-03-14 14:18] LABS: Basophils # (A) 0.1 k/uL (0-0.2); Basophils % (A) 1 %; Eosinophils # (A) 0.2 k/uL (0-0.7); Eosinophils % (A) 2 %; HCT 44.4 % (34.0-46.0); HGB 15.6 gm/dL (11.4-16.0); Lymphocytes # (A) 1.7 k/uL (1.0-4.8); Lymphocytes % (A) 19 %; MCH 29.4 pg (25.0-35.0); MCHC 35.1 g/dL (31.0-37.0); MCV 83.8 fL (80.0-100.0); Mean Platelet Volume 6.6; Monocytes # (A) 0.7 k/uL (0-1.0); Monocytes % (A) 8 %; Neutrophils # (A) 6.4 k/uL (1.3-7.7); Neutrophils % (A) 70 %; Platelet Count 324 k/uL (150-450); RBC 5.29 m/uL (3.80-5.40); RDW 13.7 % (11.5-15.5)
[2018-03-14] MEDS ORDERED: ACETAMINOPHEN TAB 325 MG TAB PO STA (14:23)
[2018-03-14] MEDS ORDERED: ONDANSETRON 4 MG in SODIUM CHLORIDE 0.9% 50 ML IVPB ONE (14:24)
[2018-03-14 14:26] LABS: HCG,Quantitative Serum <2.4 mIU/mL
[2018-03-14] MEDS ORDERED: ONDANSETRON 4 MG/2 ML VIAL IVP STA (14:26)
[2018-03-14] MEDS: MAGNESIUM SULFATE-D5W PMX 1 GM in DEXTROSE/WATER 1 100ML.BAG IVPB SCH ×2 (14:35→15:37)
--- NOTE | 2018-03-14 15:28 | XR ---
EXAMINATION TYPE: XR chest 2V DATE OF EXAM: 03/14/2018 COMPARISON: 03/11/2018 INDICATION: Cough short of breath TECHNIQUE: Frontal and lateral views of the chest are obtained. FINDINGS: The heart size is normal. The pulmonary vasculature is upper limits of normal. There is silhouetting along the left heart border. A mild infiltrate such as atypical pulmonary edema or atelectasis could be considered.. Stimulator leads are within the lower thoracic spine. IMPRESSION: 1. Some mild vascular prominence is present. Mild infiltrate may be within the lingula. Correlate for atypical pulmonary edema or atelectasis. Follow-up can be performed as clinically indicated.
[2018-03-14] MEDS ORDERED: MORPHINE SULFATE/PF 10MG/10ML VL IVP STA (15:33)
[2018-03-14] MEDS ORDERED: MORPHINE SULFATE 4 MG/ML SYRINGE IVP STA (15:33)
[2018-03-14] MEDS ORDERED: ACETAMINOPHEN TAB 325 MG TAB PO PRN (18:19)
[2018-03-14] MEDS ORDERED: diphenhydrAMINE 50 MG/ML 1 ML VIAL IVP STA (18:20)
[2018-03-14] MEDS ORDERED: FAMOTIDINE 20 MG/2 ML VIAL IV STA (18:20)
[2018-03-14] MEDS ORDERED: methylPREDNISolone SOD SUCCI 125 MG/2 ML VIAL IV STA (18:21)
[2018-03-14] MEDS ORDERED: ACYCLOVIR 800 MG TAB PO PRN (18:24)
[2018-03-14] MEDS ORDERED: tiZANidine 4 MG TAB PO PRN (18:24)
[2018-03-14] MEDS ORDERED: FLUTICASONE 110 MCG INHALER INHALATION PRN (18:24)
[2018-03-14] MEDS ORDERED: ACYCLOVIR 200 MG CAP PO PRN (18:24)
[2018-03-14] MEDS ORDERED: hydrOXYzine PAMOATE 25 MG CAP PO PRN (18:24)
[2018-03-14] MEDS ORDERED: BUTALB/APAP/CAFF 50-325-40MG TAB PO PRN (18:24)
[2018-03-14] MEDS ORDERED: medroxyPROGESTERone 150 MG/ML 1ML VIAL IM SCH (18:30)
[2018-03-14] MEDS: DOXYCYCLINE 100 MG in SODIUM CHLORIDE 0.9% 100 ML IVPB SCH (18:47)
[2018-03-14] MEDS: ALBUTEROL NEBULIZED 2.5 MG/3 ML INHALATION PRN (19:23)
[2018-03-14] MEDS ORDERED: CALCIUM CARBONATE 500 MG CHEWABLE PO PRN (20:07)
[2018-03-14] MEDS ORDERED: NALOXONE 0.4 MG/ML 1 ML VIAL IV PRN (20:07)
[2018-03-14] MEDS: Dilaudid Pain Pump INTRATHECA SCH (20:24)
[2018-03-14] MEDS: AMANTADINE HCL 100 MG CAP PO SCH (20:27)
[2018-03-14] MEDS: QUEtiapine 200 MG TAB PO SCH (20:27)
[2018-03-14] MEDS: ELMIRON 100 MG PO SCH (20:28)
[2018-03-14] MEDS: DICYCLOMINE 20 MG TAB PO SCH (20:48)
[2018-03-14] MEDS: HYDROcodone/APAP 7.5-325MG 1 EACH TAB PO PRN (20:48)
[2018-03-14] MEDS: GABAPENTIN 300 MG CAP PO SCH (20:49)
[2018-03-14] MEDS: LORATADINE-PSEUDOEPH 5-120 MG 1 EACH TAB.ER.12H PO SCH (20:49)
[2018-03-14] MEDS: ENOXAPARIN 40 MG/0.4 ML SYRINGE SQ SCH (20:50)
[2018-03-14] MEDS: methylPREDNISolone SOD SUCCI 40 MG/ML 1 ML VIAL IV SCH (20:50)
[2018-03-14] MEDS: PANTOPRAZOLE 40 MG TABLET PO SCH (21:01)
[2018-03-14] MEDS: BUDESONIDE 1 MG/2 ML NEBU INHALATION SCH (21:37)
[2018-03-14] MEDS: IPRATROPIUM-ALBUTEROL 3 ML NEB INHALATION SCH (21:37)
--- NOTE | 2018-03-14 22:01 | HP ---
HISTORY AND PHYSICAL DATE OF ADMISSION: 03/14/2018 PRESENTING COMPLAINT: Short of breath, wheezing. HISTORY OF PRESENTING COMPLAINT: This is a 32-year-old patient who follows with Dr. Tena. Chronic stable medical conditions include GERD, hyperlipidemia, seizure disorder, chronic pain, bipolar disorder. Patient for 3 days has been having increasing shortness of breath, wheezing, cough, clear sputum. She had some fever at home but none documented here. The patient was seen by Dr. Hunter in the office and sent to the hospital ER for admission. Started on bronchodilators and steroids. Appetite has gone down. Has been having some loose stools. No abdominal pain. REVIEW OF SYSTEMS: CONSTITUTIONAL: Tired. HEENT: Some nasal stuffiness. RESPIRATORY: As above. CARDIOVASCULAR: None. GASTROINTESTINAL: As above, with heartburn. GENITOURINARY: None. MUSCULOSKELETAL: Chronic low back pain. DERMATOLOGICAL: None. HEMATOLOGICAL: None. LYMPHATICS: None. PSYCHIATRY: Anxious. NEUROLOGICAL: None. PAST MEDICAL HISTORY: 1. Asthma. 2. GERD. 3. Hyperlipidemia. 4. Seizure disorder. 5. Insomnia. 6. Chronic pain. 7. Bipolar disorder. 8. RSD in both feet. PAST SURGICAL HISTORY: 1. Adenoidectomy. 2. Back surgery. 3. Cholecystectomy. 4. Orthopedic surgery. 5. Tonsillectomy. 6. Bilateral foot surgery due to RSD. 7. Numerous pain clinic procedures. 8. Nerve stimulator in the back. 9. Pain pump. PSYCH HISTORY: 1. Bipolar. 2. PTSD. 3. Mood disorder. 4. Multiple personality disorder. SOCIAL HISTORY: No smoking. Alcohol rarely. Medical marijuana. Lives by herself. FAMILY HISTORY: Diabetes. Mother had 5 strokes, 3 heart attacks, uterine cancer. HOME MEDICATIONS: 1. Invega Sustenna 117 mg IM every 28 days. 2. Flovent HFA 2 puffs daily p.r.n. 3. [place] 7.5 one tablet t.i.d. p.r.n. 4. Fioricet 1 tablet q.8 p.r.n. 5. Zovirax 800 mg daily p.r.n. 6. Zanaflex 4 mg t.i.d. p.r.n. 7. Topamax 25 mg p.o. daily. 8. Elmiron 100 mg p.o. b.i.d. 9. Protonix 40 mg b.i.d. 10.Hydrochlorothiazide 25 mg daily. 11.Neurontin 300 mg p.o. t.i.d. 12.Requip 2 mg p.o. at bedtime, 1 mg in the morning. 13.Vistaril 25 mg p.o. t.i.d. 14.Seroquel 200 mg p.o. at bedtime. 15.Lopid 600 mg p.o. b.i.d. 16.Bentyl 20 mg p.o. t.i.d. 17.Symmetrel 100 mg p.o. b.i.d. 18.Tegretol XR 200 mg b.i.d., 100 mg in the morning, 200 mg at night. 19.Dilaudid pain pump. 20.Zofran 8 mg p.o. daily p.r.n. 21.Depo-Provera 150 mg every 84 days. 22.ProAir 2 puffs b.i.d. p.r.n. ALLERGIES: 1. ZITHROMAX. 2. CIMETIDINE. 3. FISH-CONTAINING PRODUCTS. 4. KETOROLAC. 5. GEODON. 6. PROLIXIN. 7. HALDOL. 8. SULFA. PHYSICAL EXAMINATION: VITAL SIGNS ON PRESENTATION: Temperature 97.9, pulse 120, respiration 28, blood pressure 123/106, pulse ox 96% on room air. GENERAL APPEARANCE: Well built; BMI 30. Sitting up, short of breath at rest. EYES: Pupils equal. Conjunctivae normal. HEENT: External appearance of nose and ears normal. Oral cavity normal. NECK: Short, thick. JVD unable to assess. Mass not palpable. RESPIRATORY: Effort increased. LUNGS: Decreased breath sounds, prolonged expiration and wheezing. Patient not able to speak in full sentences. CARDIOVASCULAR: First and second sounds normal. No edema. ABDOMEN: Soft, non-tender. Liver and spleen not palpable. LYMPHATIC: No lymph node palpable in neck or axillae. PSYCHIATRY: Alert and oriented x3. Mood and affect anxious-appearing. NEUROLOGICAL: Pupils equal. Cranial nerves grossly intact. Power and sensation grossly intact. INVESTIGATIONS: White count 9, hemoglobin 15.6, potassium 3.5. BUN and creatinine are normal. Influenza A and B negative. Chest x-ray film, personally reviewed by me, shows some interstitial prominence. ASSESSMENT: 1. Acute exacerbation of mild persistent asthma, probably from viral pneumonitis. Cannot rule out bacterial component. 2. Gastroesophageal reflux disease. 3. Hyperlipidemia. 4. Chronic seizure disorder. 5. Chronic pain syndrome. Patient is on a Dilaudid pump. 6. Bipolar disorder. PLAN: Patient's home medications are resumed. Lovenox for DVT prophylaxis. Will give bronchodilators every 4 hours, IV Solu-Medrol and inhaled steroids. Will also add Claritin-D. Dr. Tony Hunter from Pulmonary was consulted. Care was discussed with the patient. Patient was asking for additional IV pain medications. The nurse called and found that is not indicated. Patient has already got a pain pump. MMODL / IJN: [id number] /
[2018-03-14 22:36] VITALS: BMI 29.9
[2018-03-15] MEDS: IPRATROPIUM-ALBUTEROL 3 ML NEB INHALATION SCH ×7 (00:43→22:55)
[2018-03-15] MEDS: methylPREDNISolone SOD SUCCI 40 MG/ML 1 ML VIAL IV SCH ×4 (01:00→23:58)
[2018-03-15] MEDS: CODEINE 30 MG TAB PO PRN ×2 (01:58→07:55)
[2018-03-15] MEDS: ONDANSETRON 4 MG TAB PO PRN ×2 (03:03→13:01)
[2018-03-15] MEDS: HYDROcodone/APAP 7.5-325MG 1 EACH TAB PO PRN ×3 (05:03→23:58)
[2018-03-15] MEDS: DOXYCYCLINE 100 MG in SODIUM CHLORIDE 0.9% 100 ML IVPB SCH ×2 (05:04→18:41)
[2018-03-15 07:29] LABS: Glucose,Whole Blood 134 mg/dL (75-99)
[2018-03-15] MEDS: INSULIN ASPART 100 UNIT/ML 1 ML 10 ML VIAL SQ SCH ×4 (07:33→21:31)
[2018-03-15] MEDS: ELMIRON 100 MG PO SCH ×2 (07:34→21:11)
[2018-03-15] MEDS: BUDESONIDE 1 MG/2 ML NEBU INHALATION SCH ×2 (07:45→19:19)
[2018-03-15] MEDS: ENOXAPARIN 40 MG/0.4 ML SYRINGE SQ SCH (07:55)
[2018-03-15] MEDS: LORATADINE-PSEUDOEPH 5-120 MG 1 EACH TAB.ER.12H PO SCH ×2 (07:56→21:22)
[2018-03-15] MEDS: GABAPENTIN 300 MG CAP PO SCH ×3 (07:56→21:21)
[2018-03-15] MEDS: HYDROCHLOROTHIAZIDE 25 MG TAB PO SCH (07:56)
[2018-03-15] MEDS: PANTOPRAZOLE 40 MG TABLET PO SCH ×2 (07:56→18:41)
[2018-03-15] MEDS: TOPIRAMATE 25 MG TAB PO SCH (07:56)
[2018-03-15] MEDS: DICYCLOMINE 20 MG TAB PO SCH ×3 (07:57→21:21)
[2018-03-15] MEDS: FENOFIBRATE 160 MG TAB PO SCH (07:57)
[2018-03-15] MEDS: AMANTADINE HCL 100 MG CAP PO SCH ×2 (07:57→21:23)
[2018-03-15] MEDS: ALPRAZolam 0.5 MG TAB PO PRN ×2 (08:34→16:52)
[2018-03-15] MEDS: PROMETHAZ-COD 6.25-10 MG/5 ML 5 ML CUP PO PRN ×4 (08:34→21:23)
[2018-03-15] MEDS: carBAMazepine 100 MG TAB.ER.12H PO SCH (10:01)
[2018-03-15 12:37] LABS: Glucose,Whole Blood 144 mg/dL (75-99)
[2018-03-15 18:10] LABS: Glucose,Whole Blood 124 mg/dL (75-99)
[2018-03-15 18:33] LABS: Hemoglobin A1C 5.1 % (4.0-6.0)
--- NOTE | 2018-03-15 20:23 | PN ---
PROGRESS NOTE DATE OF SERVICE: 03/15/2018 PRESENTING COMPLAINT: Short of breath, wheezing. INTERVAL HISTORY: The patient presented with acute asthma exacerbation with acute tracheobronchitis and possible pneumonitis, was having bouts of coughing, which is actually better, tolerating a diet somewhat. Boyfriend is at bedside. Has been out of bed, looking a bit better. REVIEW OF SYSTEMS: Done for constitutional, cardiovascular, GI, pulmonary; relevant findings as above. CURRENT MEDICATIONS: Reviewed that include DuoNeb, inhaled steroids, IV steroids. PHYSICAL EXAMINATION: Temperature 96.8 pulse 107, respirations 20, blood pressure 150/78, pulse ox 96% on 2L. GENERAL APPEARANCE: Sitting up, not in distress. EYES: Pupils equal. Conjunctivae normal. NECK: JVD not raised. Mass not palpable. Respiratory effort increased. LUNGS: Decreased breath sounds. Prolonged expiration. Less wheezing. CARDIOVASCULAR: First and second sounds normal. No edema. ABDOMEN: Soft, nontender. Liver and spleen not palpable. , PSYCHIATRY: Alert and oriented x3. Mood and affect, anxious appearing. INVESTIGATIONS: Accu-Cheks are noted. ASSESSMENT: 1. Acute exacerbation of mild persistent asthma, probably from viral pneumonitis, cannot rule out a bacterial component. 2. Gastroesophageal reflux disease. 3. Hyperlipidemia. 4. Chronic seizure disorder. 5. Chronic pain syndrome. Patient is on a Dilaudid pump. 6. Bipolar disorder. PLAN: Care was discussed with the patient. Treatment was reinforced. Continue medication and treatment plan. Include steroids, bronchodilators. Also, asked her to do warm water and salt gargles. MMODL / IJN: [id number] /
[2018-03-15 21:00] LABS: Glucose,Whole Blood 142 mg/dL (75-99)
[2018-03-15] MEDS: Dilaudid Pain Pump INTRATHECA SCH (21:10)
[2018-03-15] MEDS: QUEtiapine 200 MG TAB PO SCH (21:22)
[2018-03-16] MEDS: ALPRAZolam 0.5 MG TAB PO PRN ×4 (00:29→23:56)
[2018-03-16] MEDS: IPRATROPIUM-ALBUTEROL 3 ML NEB INHALATION SCH ×5 (03:41→21:18)
[2018-03-16] MEDS: PROMETHAZ-COD 6.25-10 MG/5 ML 5 ML CUP PO PRN ×4 (05:10→20:19)
[2018-03-16] MEDS: ALBUTEROL NEBULIZED 2.5 MG/3 ML INHALATION PRN (05:56)
[2018-03-16] MEDS: DOXYCYCLINE 100 MG in SODIUM CHLORIDE 0.9% 100 ML IVPB SCH (06:31)
[2018-03-16 07:51] LABS: Glucose,Whole Blood 161 mg/dL (75-99)
[2018-03-16] MEDS: HYDROCHLOROTHIAZIDE 25 MG TAB PO SCH (08:07)
[2018-03-16] MEDS: FENOFIBRATE 160 MG TAB PO SCH (08:07)
[2018-03-16] MEDS: GABAPENTIN 300 MG CAP PO SCH ×3 (08:07→20:28)
[2018-03-16] MEDS: TOPIRAMATE 25 MG TAB PO SCH (08:07)
[2018-03-16] MEDS: DICYCLOMINE 20 MG TAB PO SCH ×3 (08:07→20:28)
[2018-03-16] MEDS: PANTOPRAZOLE 40 MG TABLET PO SCH ×2 (08:07→17:12)
[2018-03-16] MEDS: HYDROcodone/APAP 7.5-325MG 1 EACH TAB PO PRN ×3 (08:07→23:56)
[2018-03-16] MEDS: ELMIRON 100 MG PO SCH ×2 (08:08→20:22)
[2018-03-16] MEDS: ENOXAPARIN 40 MG/0.4 ML SYRINGE SQ SCH (08:08)
[2018-03-16] MEDS: methylPREDNISolone SOD SUCCI 40 MG/ML 1 ML VIAL IV SCH ×2 (08:08→15:46)
[2018-03-16] MEDS: LORATADINE-PSEUDOEPH 5-120 MG 1 EACH TAB.ER.12H PO SCH ×2 (08:08→20:21)
[2018-03-16] MEDS: AMANTADINE HCL 100 MG CAP PO SCH ×2 (08:09→20:21)
[2018-03-16] MEDS: INSULIN ASPART 100 UNIT/ML 1 ML 10 ML VIAL SQ SCH ×4 (08:11→21:51)
[2018-03-16] MEDS: carBAMazepine 100 MG TAB.ER.12H PO SCH (08:17)
[2018-03-16] MEDS ORDERED: AZITHROMYCIN 500 MG TAB PO SCH (09:00)
[2018-03-16] MEDS: AMOXICILLIN 500 MG CAP PO SCH ×2 (09:07→15:45)
[2018-03-16] MEDS: BUDESONIDE 1 MG/2 ML NEBU INHALATION SCH ×2 (09:50→21:18)
[2018-03-16 12:37] LABS: Glucose,Whole Blood 108 mg/dL (75-99)
--- NOTE | 2018-03-16 16:11 | P.CNPUL ---
History of Present Illness Consult date: 03/15/18 (Late entry note) Reason for consult: dyspnea, cough, chest pain, asthma, COPD, obstructive sleep apnea Chief complaint: Cough shortness of breath and wheezing History of present illness: 32-year-old morbidly obese female well-known to me for a history of chronic persistent asthma as well as some component of COPD, patient has a history of borderline sleep disorder breathing and sleep apnea with AHI is not high enough to require intervention with CPAP patient has a history of multiple allergens and ALLERGIES as well she has been in remission for her chronic persistent asthma, however he presented into the office with worsening shortness of breath cough and wheezing symptoms started about 3-4 days ago she has ongoing symptoms of gagging coughing and throwing up she has ongoing severe cough which is mostly dry she couldn't sleep she couldn't lay flat on the bed she was evaluated in the office and eventually decided to send her to the emergency department for further evaluation, patient has been admitted from there, in emergency department she was tachypneic tachycardic borderline hypertensive oxygen saturation are stable she was afebrile but couldn't complete her sentences due to severe shortness of breath and coughing episodes Review of Systems All systems: negative Past Medical History Past Medical History: Asthma, GERD/Reflux, Hyperlipidemia, Musculoskeletal Disorder, Neurologic Disorder, Osteoarthritis (OA), Seizure Disorder Additional Past Medical History / Comment(s): RSD-DERIC FEET, INTERSTITIAL CYSTITIS, BRONCHITIS, HEMORRHOIDS,MIGRAINES, INSOMNIA. VERTIGO, last seizure 4 years ago History of Any Multi-Drug Resistant Organisms: MRSA Date of last positivie culture/infection: 04/20/15 MDRO Source:: Left Axilla Past Surgical History: Adenoidectomy, Back Surgery, Cholecystectomy, Orthopedic Surgery, Tonsillectomy Additional Past Surgical History / Comment(s): bilateral foot surgery d/t rsd, numerous pain clinic procedures, nerve stimulator in back to tx RSD placed in Nov 11 2015, pain pump placement Past Anesthesia/Blood Transfusion Reactions: Previous Problems w/ Anesthesia Additional Past Anesthesia/Blood Transfusion Reaction / Comment(s): Pt recieved blood when she was 2 yrs old after tonsillectomy. WHEN BABY HEART STOPPED TWICE- PT STATED SHE WAS ALLERGIC TO ETHER. Past Psychological History: Anxiety, Bipolar, Depression, PTSD Additional Psychological History / Comment(s): MOOD DISORDER AND MULTIPLE PERSONALITY DISORDER, 4 YEARS AGO HAD SUICIDE ATTEMPT DENIES ANY FURTHUR THOUGHTS OF SUICIDE OR HARMING SELF SINCE Smoking Status: Never smoker Past Alcohol Use History: None Reported Additional Past Alcohol Use History / Comment(s): Pt very rarely drinks alcohol. Past Drug Use History: Marijuana Additional Drug Use History / Comment(s): Pt states she has medical marijuana card - Past Family History Father History Unknown: Yes Family Medical History: Diabetes Mellitus Mother Family Medical History: Cancer, CVA/TIA, Diabetes Mellitus, Myocardial Infarction ([place]) Additional Family Medical History / Comment(s): Mother has had 5 CVAs, 3 MIs and UTERINE CANCER Medications and Allergies Home Medications Medication Instructions Recorded Confirmed Type Medroxyprogesterone Acetate 150 mg IM Q84D 11/22/13 03/14/18 History [Depo-Provera] rOPINIRole HCL [Requip] 1 mg PO QAM 11/22/13 03/14/18 History Pentosan Polysulfate Sodium 100 mg PO BID 02/10/15 03/14/18 History [Elmiron] Pantoprazole Sodium [Protonix] 40 mg PO BID 04/20/15 03/14/18 History HYDROcodone/APAP 7.5-325MG [Arbuckle 1 tab PO TID PRN 07/20/16 03/14/18 History 7.5-325] Hydrochlorothiazide [Hydrodiuril] 25 mg PO DAILY 07/20/16 03/14/18 History Paliperidone IM Pt Own [Invega 117 mg IM Q28D 07/20/16 03/14/18 History Sustenna] carBAMazepine [TEGretol XR] 200 mg PO HS 07/20/16 03/14/18 History Amantadine HCl [Symmetrel] 100 mg PO BID 11/21/16 03/14/18 History carBAMazepine [TEGretol XR] 100 mg PO QAM 11/30/16 03/14/18 History carBAMazepine [TEGretol XR] 200 mg PO BID 01/03/17 03/14/18 History rOPINIRole HCL [Requip] 2 mg PO HS 02/09/17 03/14/18 History Dicyclomine [Bentyl] 20 mg PO TID 07/09/17 03/14/18 History hydrOXYzine PAMOATE [Vistaril] 25 mg PO TID PRN 11/06/17 03/14/18 History Acyclovir [Zovirax] 400 mg PO DAILY PRN 01/13/18 03/14/18 History Acyclovir [Zovirax] 800 mg PO DAILY PRN 01/13/18 03/14/18 History Albuterol Sulfate [Proair Hfa] 2 puff INHALATION RT-BID PRN 01/13/18 03/14/18 History Butalb/Acetaminophen/Caffeine 1 tab PO Q8H PRN 01/13/18 03/14/18 History [Fioricet 50-325-40] Fluticasone Propionate [Flovent 2 puff INHALATION RT-DAILY PRN 01/13/18 History Hfa 110 mcg] Gemfibrozil [Lopid] 600 mg PO BID 01/13/18 03/14/18 History Ondansetron HCl [Zofran] 8 mg PO TID PRN 01/13/18 03/14/18 History QUEtiapine [SEROquel] 200 mg PO HS 01/13/18 03/14/18 History Topiramate [Topamax] 25 mg PO DAILY 01/13/18 03/14/18 History tiZANidine HCL [Zanaflex] 4 mg PO TID PRN 01/13/18 03/14/18 History Dilaudid Pain Pump 1 dose INTRATHECA CONTINUOUS 01/27/18 03/14/18 History Gabapentin [Neurontin] 300 mg PO TID 03/11/18 03/14/18 History Allergies Allergy/AdvReac Type Severity Reaction Status Date / Time azithromycin Allergy Rash/Hives Verified 03/14/18 13:59 [From Zithromax Z-Mehrdad] cimetidine [From Tagamet] Allergy Rash/Hives Verified 03/14/18 13:59 ether [Ether] Allergy Anaphylaxis Verified 03/14/18 13:59 Fish Containing Products Allergy Anaphylaxis Verified 03/14/18 13:59 [Fish] ketorolac tromethamine Allergy Rash/Hives Verified 03/14/18 13:59 [From Toradol] ziprasidone HCl [From Geodon] Allergy Extrapyramidal Verified 03/14/18 13:59 Symptoms fluphenazine HCl AdvReac Extrapyramidal Verified 03/14/18 13:59 [From Prolixin] Symptoms haloperidol [From Haldol] AdvReac Extrapyramidal Verified 03/14/18 13:59 Symptoms Sulfa (Sulfonamide AdvReac Nausea & Verified 03/14/18 13:59 Antibiotics) Vomiting Physical Exam Vitals: Vital Signs Temp Pulse Pulse Resp BP Pulse Ox 03/16/18 14:10 97.5 F L 110 H 22 152/66 96 03/16/18 12:54 104 H 03/16/18 12:43 100 03/16/18 10:07 112 H 03/16/18 09:51 112 H 03/16/18 07:18 97.8 F 100 22 154/92 95 03/16/18 06:06 117 H 03/16/18 05:57 114 H 03/16/18 03:53 108 H 03/16/18 03:43 105 H 03/15/18 23:06 112 H 03/15/18 23:00 97.7 F 97 20 138/75 97 03/15/18 22:56 110 H 03/15/18 19:33 108 H 03/15/18 19:21 107 H 98 Intake and Output 03/16/18 03/16/18 03/16/18 06:59 14:59 22:59 Intake Total 200 Balance 200 Intake: Oral 200 Other: # Voids 1 2 - Constitutional General appearance: average body habitus, cooperative, disheveled, mild distress , obese - EENT Eyes: PERRLA, normal appearance Ears: bilateral: normal - Neck Neck: normal ROM Carotids: bilateral: upstroke normal Thyroid: bilateral: normal size - Respiratory Respiratory: bilateral: diminished, rhonchi, wheezing, prolonged expiration, negative: rales - Cardiovascular Heart sounds: normal: S1, S2 - Gastrointestinal General gastrointestinal: normal bowel sounds - Integumentary Integumentary: decreased turgor - Neurologic Neurologic: CNII-XII intact - Musculoskeletal Musculoskeletal: gait normal, generalized weakness, strength equal bilaterally - Psychiatric Psychiatric: A&O x's 3, appropriate affect, intact judgment & insight Results Left lower lobe pneumonia cannot be excluded - Laboratory Findings CBC and BMP: 03/14/18 13:32 03/14/18 13:32 Abnormal lab findings: Abnormal Labs 03/14/18 03/15/18 03/15/18 13:32 07:23 12:23 Glucose 103 H POC Glucose (mg/dL) 134 H 144 H Calcium 10.3 H 03/15/18 03/15/18 03/16/18 17:03 20:42 07:19 Glucose POC Glucose (mg/dL) 124 H 142 H 161 H Calcium 03/16/18 12:29 Glucose POC Glucose (mg/dL) 108 H Calcium - Diagnostic Findings Chest x-ray: report reviewed, image reviewed Assessment and Plan Assessment: Left lower lobe pneumonia Acute asthma Severe intractable coughing Morbid obesity History of GERD, dyslipidemia, seizure disorder, bipolar disorder, chronic pain syndrome Plan: Broad-spectrum antibiotics Breathing treatments Cough suppressant IV steroids Labs reviewed medications reviewed radiographic studies reviewed as well Further recommendations pending plan of care as per clinical response of the patient Time with Patient: Greater than 30
--- NOTE | 2018-03-16 16:15 | P.PN ---
Subjective Progress Note Date: 03/16/18 Principal diagnosis: Left lower lobe pneumonia, acute asthma exacerbation, intractable cough, GERD, mood disorder depression, seizure disorder, morbid obesity, mild degree of sleep disorder breathing and sleep apnea 03/16/2018, patient seen eval reexamined during the rounds patient seems to be responding with cough suppressant medicine overall able to sleep about 6 hours last night, the IV site was very tender while she was getting IV doxycycline, which has been discontinued patient does not want to take by mouth doxycycline given history of multiple allergens however agree for oral amoxicillin, she is ALLERGIC to erythromycin cannot be started, her cough is slightly better gagging has slightly improve still a very fine wheezing on fours expiration overall plan is to continue IV steroids breathing treatment antibiotics which is now being switched to oral, labs reviewed medications reviewed care plan discussed with the primary service 32-year-old morbidly obese female well-known to me for a history of chronic persistent asthma as well as some component of COPD, patient has a history of borderline sleep disorder breathing and sleep apnea with AHI is not high enough to require intervention with CPAP patient has a history of multiple allergens and ALLERGIES as well she has been in remission for her chronic persistent asthma, however he presented into the office with worsening shortness of breath cough and wheezing symptoms started about 3-4 days ago she has ongoing symptoms of gagging coughing and throwing up she has ongoing severe cough which is mostly dry she couldn't sleep she couldn't lay flat on the bed she was evaluated in the office and eventually decided to send her to the emergency department for further evaluation, patient has been admitted from there, in emergency department she was tachypneic tachycardic borderline hypertensive oxygen saturation are stable she was afebrile but couldn't complete her sentences due to severe shortness of breath and coughing episodes Objective - Vital Signs Vital signs: Vital Signs Temp 97.5 F L 03/16/18 14:10 Pulse 110 H 03/16/18 14:10 Resp 22 03/16/18 14:10 BP 152/66 03/16/18 14:10 Pulse Ox 96 03/16/18 14:10 Intake & Output 03/15/18 03/16/18 03/16/18 18:59 06:59 18:59 Intake Total 1000 Balance 1000 Weight 74.389 kg Intake: Oral 1000 Other: # Voids 3 1 2 - Exam - Constitutional General appearance: average body habitus, cooperative, disheveled, mild distress , obese - EENT Eyes: PERRLA, normal appearance Ears: bilateral: normal - Neck Neck: normal ROM Carotids: bilateral: upstroke normal Thyroid: bilateral: normal size - Respiratory Respiratory: bilateral: diminished, rhonchi, wheezing, prolonged expiration, negative: rales - Cardiovascular Heart sounds: normal: S1, S2 - Gastrointestinal General gastrointestinal: normal bowel sounds - Integumentary Integumentary: decreased turgor - Neurologic Neurologic: CNII-XII intact - Musculoskeletal Musculoskeletal: gait normal, generalized weakness, strength equal bilaterally - Psychiatric Psychiatric: A&O x's 3, appropriate affect, intact judgment & insight - Labs CBC & Chem 7: 03/14/18 13:32 03/14/18 13:32 Labs: Abnormal Lab Results - Last 24 Hours (Table) 03/15/18 03/15/18 03/16/18 Range/Units 17:03 20:42 07:19 POC Glucose (mg/dL) 124 H 142 H 161 H (75-99) mg/dL 03/16/18 Range/Units 12:29 POC Glucose (mg/dL) 108 H (75-99) mg/dL Assessment and Plan Assessment: Left lower lobe pneumonia Acute asthma Severe intractable coughing Morbid obesity History of GERD, dyslipidemia, seizure disorder, bipolar disorder, chronic pain syndrome Plan: Broad-spectrum antibiotics, being switched to oral amoxicillin Breathing treatments Cough suppressant IV steroids Labs reviewed medications reviewed radiographic studies reviewed as well Repeat chest x-ray tomorrow Further recommendations pending plan of care as per clinical response of the patient Time with Patient: Greater than 30
[2018-03-16 17:26] LABS: Glucose,Whole Blood 131 mg/dL (75-99)
[2018-03-16] MEDS: Dilaudid Pain Pump INTRATHECA SCH (20:21)
[2018-03-16] MEDS: QUEtiapine 200 MG TAB PO SCH (20:21)
[2018-03-16 20:38] LABS: Glucose,Whole Blood 165 mg/dL (75-99)
[2018-03-16] MEDS ORDERED: diphenhydrAMINE 50 MG/ML 1 ML VIAL IVP ONE (21:00)
--- NOTE | 2018-03-16 22:41 | PN ---
PROGRESS NOTE DATE OF SERVICE: 03/16/2018. PRESENTING COMPLAINT: Short of breath. INTERVAL HISTORY: Patient presented with acute asthma exacerbation and pneumonia, being followed by Pulmonary. Still getting bouts of coughing. Better tolerating a diet. The patient's family is at the bedside, both the parents. Sitting up. REVIEW OF SYSTEMS: Done for constitutional, cardiovascular, GI, pulmonary; relevant findings as above. Still having some bouts of coughing. CURRENT MEDICATIONS: Reviewed that include DuoNeb, IV Solu-Medrol, Claritin-D, codeine. PHYSICAL EXAMINATION: Temperature 97.5 pulse 110, respirations 22, blood pressure 102/66, pulse ox 96% on 2 L. GENERAL APPEARANCE: Sitting up, more comfortable, occasional bouts of coughing. EYES: Pupils equal. Conjunctivae normal. NECK: JVD not raised. Mass not palpable. Respiratory effort normal. LUNGS: Decreased breath sounds at the bases. Prolonged expiration. CARDIOVASCULAR: 1st and 2nd heart sounds normal. No edema. ABDOMEN: Soft, nontender. Liver and spleen not palpable. PSYCHIATRY: Alert and oriented x3. Mood and affect some anxiety. INVESTIGATIONS: Accu-Cheks are noted including 161, 108, 131. ASSESSMENT: 1. Acute exacerbation of mild persistent asthma, probably from viral pneumonitis cannot rule out a bacterial component. 2. Intractable coughing. 3. Gastroesophageal reflux disease. 4. Hyperlipidemia. 5. Chronic seizure disorder. 6. Chronic pain syndrome. Patient is on Dilaudid pump. 7. Bipolar disorder. 8. Hyperglycemia from steroids. PLAN: Continue medication and treatment plan. Care was discussed with the patient. Follow with Pulmonary. MMODL / IJN: [id number] /
[2018-03-17] MEDS: IPRATROPIUM-ALBUTEROL 3 ML NEB INHALATION SCH ×6 (00:33→20:20)
[2018-03-17] MEDS: methylPREDNISolone SOD SUCCI 40 MG/ML 1 ML VIAL IV SCH ×3 (00:40→15:21)
[2018-03-17] MEDS: AMOXICILLIN 500 MG CAP PO SCH ×3 (00:41→15:22)
[2018-03-17] MEDS: PROMETHAZ-COD 6.25-10 MG/5 ML 5 ML CUP PO PRN ×3 (01:28→14:02)
[2018-03-17] MEDS: BUDESONIDE 1 MG/2 ML NEBU INHALATION SCH ×3 (07:18→20:20)
[2018-03-17] MEDS: INSULIN ASPART 100 UNIT/ML 1 ML 10 ML VIAL SQ SCH ×4 (07:37→22:05)
[2018-03-17 07:43] LABS: Glucose,Whole Blood 114 mg/dL (75-99)
[2018-03-17] MEDS: ALPRAZolam 0.5 MG TAB PO PRN ×2 (08:02→15:22)
[2018-03-17] MEDS: FENOFIBRATE 160 MG TAB PO SCH (08:02)
[2018-03-17] MEDS: carBAMazepine 100 MG TAB.ER.12H PO SCH (08:02)
[2018-03-17] MEDS: LORATADINE-PSEUDOEPH 5-120 MG 1 EACH TAB.ER.12H PO SCH ×2 (08:02→21:00)
[2018-03-17] MEDS: PANTOPRAZOLE 40 MG TABLET PO SCH ×2 (08:02→16:49)
[2018-03-17] MEDS: TOPIRAMATE 25 MG TAB PO SCH (08:02)
[2018-03-17] MEDS: GABAPENTIN 300 MG CAP PO SCH ×3 (08:02→21:00)
[2018-03-17] MEDS: ENOXAPARIN 40 MG/0.4 ML SYRINGE SQ SCH (08:02)
[2018-03-17] MEDS: HYDROCHLOROTHIAZIDE 25 MG TAB PO SCH (08:02)
[2018-03-17] MEDS: HYDROcodone/APAP 7.5-325MG 1 EACH TAB PO PRN ×2 (08:02→15:22)
[2018-03-17] MEDS: DICYCLOMINE 20 MG TAB PO SCH ×3 (08:02→21:00)
[2018-03-17] MEDS: ELMIRON 100 MG PO SCH ×2 (08:03→21:07)
[2018-03-17] MEDS: AMANTADINE HCL 100 MG CAP PO SCH ×2 (08:03→20:59)
[2018-03-17 12:25] LABS: Glucose,Whole Blood 95 mg/dL (75-99)
[2018-03-17 14:04] VITALS: BP 140/91; TEMP 97.6
[2018-03-17 15:31] VITALS: RESP 14
[2018-03-17 17:18] LABS: Glucose,Whole Blood 172 mg/dL (75-99)
[2018-03-17 20:22] VITALS: PULSE 82
[2018-03-17] MEDS: Dilaudid Pain Pump INTRATHECA SCH (20:58)
[2018-03-17] MEDS: QUEtiapine 200 MG TAB PO SCH (21:00)
--- NOTE | 2018-03-17 23:31 | PN ---
PROGRESS NOTE DATE OF SERVICE: 03/17/2018 PRESENTING COMPLAINT: Anxious. INTERVAL HISTORY: This patient presented with acute exacerbation pneumonia. Overall doing much better, tolerating a diet. Cough is greatly improved. He gets paroxysmally anxious. The patient has a lot of anxiety medications. Otherwise, looking much better. The nurse did tell me that there may be some attention seeking behaviors. Starts coughing when I get there, otherwise when you stand out of the room, she is rather comfortable. REVIEW OF SYSTEMS: Done for constitutional, cardiovascular, GI, pulmonary and relevant findings as above. CURRENT MEDICATIONS: Reviewed that include bronchodilators, IV Solu-Medrol. EXAMINATION: VITAL SIGNS: Temperature 97.5, pulse 99, respiratory 18, blood pressure 163/98, pulse ox 95 percent on 2 L. GENERAL APPEARANCE: Sitting on the bed, looks more comfortable. EYES: Pupils equal. Conjunctivae normal. NECK: JVD not raised. Mass not palpable. RESPIRATORY: Effort normal. LUNGS: Mild wheezing. Fair entry. CARDIOVASCULAR: 1st and 2nd sounds normal. No edema. ABDOMEN: Soft, nontender. Liver and spleen not palpable. PSYCHIATRY: Alert and oriented x3. Mood and affect slightly anxious-appearing. INVESTIGATIONS: Accu-Cheks are noted. ASSESSMENT: 1. Acute exacerbation of mild persistent asthma probably from viral pneumonitis cannot rule out a bacterial component with much improvement. 2. Intractable cough, much improved. 3. Gastroesophageal reflux disease. 4. Hyperlipidemia. 5. Chronic seizure disorder. 6. Chronic pain syndrome. The patient is on Dilaudid pump. 7. Bipolar disorder with anxiety component. 8. Hypoglycemia steroids. PLAN: Continue current medication and treatment plan. Follow with Pulmonary. We will get a psychiatry evaluation to assess somewhat uncontrolled anxiety, which is paroxysmal. MMODL / IJN: [id number] /
--- NOTE | 2018-03-18 06:04 | DS ---
DISCHARGE SUMMARY DATE OF ADMISSION: 03/16/2018. DATE LEFT AGAINST MEDICAL ADVICE: 03/17/2018 FINAL DIAGNOSES: 1. Acute exacerbation of mild persistent asthma probably from viral pneumonitis, cannot rule out bacterial component. 2. Intractable cough, much improved. 3. Gastroesophageal reflux disease. 4. Hyperlipidemia. 5. Chronic seizure disorder. 6. Chronic pain syndrome. Patient on Dilaudid pump. 7. Bipolar disorder with some episode uncontrolled anxiety. 8. Hyperglycemia from steroids. HOSPITAL COURSE: The patient admitted with asthma, possible pneumonia, was given steroids, antibiotics. Was doing better. Patient was seeking more medications including more and more Benadryl. Later this evening, the nurse called me that patient decided to leave AMA, did not want to give up her IV access, wanted to leave the hospital with the same. They called Mr. Burrows and patient then left AGAINST MEDICAL ADVICE. As per the nurse, the patient otherwise doing much better. The patient was seen by Dr. Hunter from Pulmonary. MMSEN / NABILN: [id number] /
== END 2018-03-17 23:18 | disposition left against medical advice (07) | DRG 190 ==
LOC: EC 12:36 → 4MS4W 16:15 → OBSVTOIN 03-16 13:49
PROVIDERS: ADMIT Hospitalist; ATTEND Hospitalist
DX: J44.0 Chronic obstructive pulmonary disease with (acute) lower respiratory infection (principal); J12.9 Viral pneumonia, unspecified; J45.21 Mild intermittent asthma with (acute) exacerbation; G90.523 Complex regional pain syndrome I of lower limb, bilateral; G40.919 Epilepsy, unspecified, intractable, without status epilepticus; E66.01 Morbid (severe) obesity due to excess calories; N30.10 Interstitial cystitis (chronic) without hematuria; K21.9 Gastro-esophageal reflux disease without esophagitis; E78.5 Hyperlipidemia, unspecified; M19.90 Unspecified osteoarthritis, unspecified site; G43.909 Migraine, unspecified, not intractable, without status migrainosus; G89.4 Chronic pain syndrome; F31.9 Bipolar disorder, unspecified; G47.00 Insomnia, unspecified; F43.10 Post-traumatic stress disorder, unspecified; F44.81 Dissociative identity disorder; G47.33 Obstructive sleep apnea (adult) (pediatric); R73.9 Hyperglycemia, unspecified; T38.0X5A Adverse effect of glucocorticoids and synthetic analogues, initial encounter; Z68.30 Body mass index [BMI] 30.0-30.9, adult; K64.9 Unspecified hemorrhoids; Z79.51 Long term (current) use of inhaled steroids; Z79.899 Other long term (current) drug therapy; Z86.14 Personal history of Methicillin resistant Staphylococcus aureus infection; Z91.5 Personal history of self-harm; Z88.1 Allergy status to other antibiotic agents; Z90.49 Acquired absence of other specified parts of digestive tract; Z88.5 Allergy status to narcotic agent; Z91.013 Allergy to seafood; Z88.2 Allergy status to sulfonamides; Z88.8 Allergy status to other drugs, medicaments and biological substances; Z91.048 Other nonmedicinal substance allergy status; Z83.3 Family history of diabetes mellitus; Z82.49 Family history of ischemic heart disease and other diseases of the circulatory system; Z82.3 Family history of stroke; Z80.49 Family history of malignant neoplasm of other genital organs
CPT/HCPCS: 36415; 71046; 80048; 83036; 83735; 84702; 85025; 87177; 87207; 87209; 87502; 94640; 94644; 94760; 96365; 96366; 96367; 96375; 99284

== ENCOUNTER → 2019-08-31 | Outpatient (CLI) | payer MEDICARE, OTHER | END | disposition home or self-care (01) | LOC: LABWHC1 10:47 | PROVIDERS: ATTEND Psychiatry & Neurology Pain Medicine | DX: Z01.818 Encounter for other preprocedural examination (principal); U07.1 COVID-19 ==

== ENCOUNTER 2019-09-16 18:53 | Emergency (ER) | payer MEDICARE, OTHER ==
[2019-09-16 18:59] VITALS: RESP 16; TEMP 99
[2019-09-16] MEDS ORDERED: KETOROLAC 30 MG/ML 1 ML VIAL IVP STA (19:09)
[2019-09-16] MEDS ORDERED: diphenhydrAMINE 50 MG/ML 1 ML VIAL IVP STA (19:10)
--- NOTE | 2019-09-16 19:13 | ED ---
Headache HPI - General Chief Complaint: Headache Stated Complaint: Headache Time Seen by Provider: 09/16/19 19:00 Mode of arrival: ambulatory Limitations: no limitations - History of Present Illness Initial Comments: 33-year-old female with a history of chronic migraines she states she has had chronic migraines for the past 15 years she states that there is no changes in her migraine x 3 days. She states that is what her typical migraine that she gets every so often. She states that she was given Benadryl then Toradol after her headache was away and this is her "miracle drug". Patient states she usually experiences nausea, photophobia with her headache. She states the headache began gradually 3 days ago and has been consistent. She states due to the prolonged length of the headache she decided to present to the emergency department for Synthroid treatment. Patient states she will not have any imaging studies done she states she knows what she needs. Patient denies speech changes, weakness of the UE or LE, denies sensation deficits, loss of vision, diplopia, fevers, neckstiffness. Patient denies additional complaints. Upon arrival patient appears nontoxic. - Related Data Home Medications Medication Instructions Recorded Confirmed Medroxyprogesterone Acetate 150 mg IM Q84D 11/22/13 09/16/19 [Depo-Provera] rOPINIRole HCL [Requip] 1 mg PO QAM 11/22/13 09/16/19 Pentosan Polysulfate Sodium 100 mg PO BID 02/10/15 09/16/19 [Elmiron] HYDROcodone/APAP 7.5-325MG [[place] 1 tab PO HS PRN 07/20/16 09/16/19 7.5-325] Paliperidone IM Pt Own [Invega 117 mg IM Q28D 07/20/16 09/16/19 Sustenna] Amantadine HCl [Symmetrel] 100 mg PO BID 11/21/16 09/16/19 Dicyclomine [Bentyl] 20 mg PO QID 07/09/17 09/16/19 Albuterol Sulfate [Proair Hfa] 2 puff INHALATION RT-BID PRN 01/13/18 09/16/19 Butalb/Acetaminophen/Caffeine 1 tab PO Q8H PRN 01/13/18 09/16/19 [Fioricet 50-325-40] Fluticasone Propionate [Flovent 2 puff INHALATION RT-DAILY PRN 01/13/18 09/16/19 Hfa 110 mcg] Gemfibrozil [Lopid] 600 mg PO BID 01/13/18 09/16/19 Ondansetron HCl [Zofran] 8 mg PO TID PRN 01/13/18 09/16/19 tiZANidine HCL [Zanaflex] 4 mg PO Q6H PRN 01/13/18 09/16/19 Gabapentin [Neurontin] 300 mg PO HS 03/11/18 09/16/19 Fentanyl Pain Pump 1 dose INTRATHECA CONTINUOUS 09/16/19 09/16/19 Gabapentin [Neurontin] 600 mg PO TID 09/16/19 09/16/19 Lisinopril [Zestril] 20 mg PO DAILY 09/16/19 09/16/19 Omeprazole [PriLOSEC] 40 mg PO DAILY 09/16/19 09/16/19 cloNIDine HCL [Catapres] 0.1 mg PO HS 09/16/19 09/16/19 rOPINIRole HCL [Requip] 2 mg PO HS 09/16/19 09/16/19 traZODone HCL 200 mg PO HS 09/16/19 09/16/19 Allergies Allergy/AdvReac Type Severity Reaction Status Date / Time azithromycin Allergy Rash/Hives Verified 09/16/19 20:16 [From Zithromax Z-Mehrdad] cimetidine [From Tagamet] Allergy Rash/Hives Verified 09/16/19 20:16 ether [Ether] Allergy Anaphylaxis Verified 09/16/19 20:16 Fish Containing Products Allergy Anaphylaxis Verified 09/16/19 20:16 [Fish] ketorolac tromethamine Allergy Rash/Hives Verified 09/16/19 20:16 [From Toradol] ziprasidone HCl [From Geodon] Allergy Extrapyramidal Verified 09/16/19 20:16 Symptoms fluphenazine HCl AdvReac Extrapyramidal Verified 09/16/19 20:16 [From Prolixin] Symptoms haloperidol [From Haldol] AdvReac Extrapyramidal Verified 09/16/19 20:16 Symptoms Sulfa (Sulfonamide AdvReac Nausea & Verified 09/16/19 20:16 Antibiotics) Vomiting Review of Systems ROS Statement: Those systems with pertinent positive or pertinent negative responses have been documented in the HPI. ROS Other: All systems not noted in ROS Statement are negative. Past Medical History Past Medical History: Asthma, GERD/Reflux, Hyperlipidemia, Musculoskeletal Disorder, Neurologic Disorder, Osteoarthritis (OA), Seizure Disorder Additional Past Medical History / Comment(s): RSD-DERIC FEET, INTERSTITIAL CYSTITIS, BRONCHITIS, HEMORRHOIDS,MIGRAINES, INSOMNIA. VERTIGO, last seizure 4 years ago History of Any Multi-Drug Resistant Organisms: MRSA Date of last positivie culture/infection: 04/20/15 MDRO Source:: Left Axilla Past Surgical History: Adenoidectomy, Back Surgery, Cholecystectomy, Orthopedic Surgery, Tonsillectomy Additional Past Surgical History / Comment(s): bilateral foot surgery d/t rsd, numerous pain clinic procedures, nerve stimulator in back to tx RSD placed in Nov 11 2015, pain pump placement Past Anesthesia/Blood Transfusion Reactions: Previous Problems w/ Anesthesia Additional Past Anesthesia/Blood Transfusion Reaction / Comment(s): Pt recieved blood when she was 2 yrs old after tonsillectomy. WHEN BABY HEART STOPPED TWICE- PT STATED SHE WAS ALLERGIC TO ETHER. Past Psychological History: Anxiety, Bipolar, Depression, PTSD Smoking Status: Never smoker Past Alcohol Use History: None Reported Past Drug Use History: Marijuana - Past Family History Father History Unknown: Yes Family Medical History: Diabetes Mellitus Mother Family Medical History: Cancer, CVA/TIA, Diabetes Mellitus, Myocardial Infarction ([place]) Additional Family Medical History / Comment(s): Mother has had 5 CVAs, 3 MIs and UTERINE CANCER General Exam - General Exam Comments Initial Comments: General: The patient is awake and alert, in no distress Eye: +3 mm pupils are equal, round and reactive to light, extra-ocular movements are intact. No nystagmus. There is normal conjunctiva bilaterally. No signs of icterus. Ears, nose, mouth and throat: There are moist mucous membranes and no oral lesions. Neck: The neck is supple, there is no tenderness or JVD. No nuchal rigidity, freely moving neck. Cardiovascular: There is a regular rate and rhythm. No murmur, rub or gallop is appreciated. Respiratory: Lungs are clear to auscultation, respirations are non-labored, breath sounds are equal. No wheezes, stridor, rales, or rhonchi. Gastrointestinal: Soft, non-distended, non-tender abdomen without masses or organomegaly noted. There is no rebound or guarding present. Musculoskeletal: Normal ROM, no tenderness. Strength 5/5 of the UE and LE b/l. Sensation intact of the UE nad LE b/l. Radial pulses equal bilaterally 2+. Neurological: A&O x 3. CN II-XII intact, There are no obvious motor or sensory deficits. Coordination appears grossly intact. Speech is normal. Skin: Skin is warm and dry and no rashes or lesions are noted. Psychiatric: Cooperative, appropriate mood & affect, normal judgment. Limitations: no limitations Course Vital Signs 09/16/19 09/16/19 18:57 20:42 Temperature 99.0 F Pulse Rate 92 63 Respiratory 16 16 Rate Blood Pressure 130/85 108/77 O2 Sat by Pulse 99 98 Oximetry - Reevaluation(s) Reevaluation #1: On re-evaluation patient states that her headache is nearly gone and is requesting discharge, she continues to appear well. 09/16/19 20:21 Medical Decision Making - Medical Decision Making 33yo female presenting for cc of headache, hx of chronic migraines. Describes this as her "typical headache". Patient has no focal neurologicla deficits. Denies sudden onset or this being the worst LANTIGUA Of her life. Patient refused imaging although i did not feel at this time indicated given exam, history provided. Patient treated symptomatically as requested, significant improvement of symptoms. Patient requesting discharge. Discharged appearing well. REturn and PCP f/u discussed. Disposition Clinical Impression: Headache, Chronic migraine Disposition: HOME SELF-CARE Condition: Good Instructions (If sedation given, give patient instructions): Acute Headache (ED) Additional Instructions: Please use medication as discussed. Please follow-up with family doctor in the next 2 days.. Please return to emergency room if the symptoms increase or worsen or for any other concerns. Is patient prescribed a controlled substance at d/c from ED?: No Referrals: China Doyle MD [Primary Care Provider] - 1-2 days Time of Disposition: 20:22
[2019-09-16 20:43] VITALS: BP 108/77; PULSE 63
== END 2019-09-16 20:42 | disposition home or self-care (01) ==
LOC: EC 18:53
DX: G43.809 Other migraine, not intractable, without status migrainosus (principal); J45.909 Unspecified asthma, uncomplicated; K21.9 Gastro-esophageal reflux disease without esophagitis; E78.5 Hyperlipidemia, unspecified; G40.909 Epilepsy, unspecified, not intractable, without status epilepticus; G47.00 Insomnia, unspecified; M19.90 Unspecified osteoarthritis, unspecified site; F41.9 Anxiety disorder, unspecified; F31.9 Bipolar disorder, unspecified; F43.10 Post-traumatic stress disorder, unspecified; G90.523 Complex regional pain syndrome I of lower limb, bilateral; Z79.3 Long term (current) use of hormonal contraceptives; Z79.51 Long term (current) use of inhaled steroids; Z79.899 Other long term (current) drug therapy; Z96.82 Presence of neurostimulator; Z88.2 Allergy status to sulfonamides; Z88.8 Allergy status to other drugs, medicaments and biological substances; Z88.6 Allergy status to analgesic agent; Z88.1 Allergy status to other antibiotic agents; Z91.013 Allergy to seafood; Z97.8 Presence of other specified devices; Z86.14 Personal history of Methicillin resistant Staphylococcus aureus infection
CPT/HCPCS: 99283; 96374; 96375; J1200; J1885

== ENCOUNTER 2019-09-26 23:37 | Emergency (ER) | payer MEDICARE, OTHER ==
[2019-09-26 23:42] VITALS: BP 151/74; PULSE 98; RESP 18; TEMP 98.4
[2019-09-27] MEDS ORDERED: diphenhydrAMINE 50 MG/ML 1 ML VIAL IM STA (00:10)
[2019-09-27] MEDS ORDERED: KETOROLAC 60 MG/2 ML VIAL IM STA (00:10)
--- NOTE | 2019-09-27 00:14 | ED ---
General Adult HPI - General Chief complaint: Recheck/Abnormal Lab/Rx Stated complaint: leg pain Time Seen by Provider: 09/26/19 23:43 Source: patient Mode of arrival: ambulatory Limitations: no limitations - History of Present Illness Initial comments: Patient is a 33-year-old female, with history of RSD, on a chronic fentanyl pain pump, presenting to emergency Department with complaints of increased pain in her lower legs. Patient states her pain pump was decreased by 10% 3 days ago and she started having pain later on that day. Patient states she did call their office on Saturday but they are not able to get her back in until Saturday or Saturday. She denies any recent falls or injuries. She states that when this happens her doctor were normally give her Toradol which does help. Patient denies any recent fever or chills. She has no further complaints. - Related Data Home Medications Medication Instructions Recorded Confirmed Medroxyprogesterone Acetate 150 mg IM Q84D 11/22/13 09/16/19 [Depo-Provera] rOPINIRole HCL [Requip] 1 mg PO QAM 11/22/13 09/16/19 Pentosan Polysulfate Sodium 100 mg PO BID 02/10/15 09/16/19 [Elmiron] HYDROcodone/APAP 7.5-325MG [[place] 1 tab PO HS PRN 07/20/16 09/16/19 7.5-325] Paliperidone IM Pt Own [Invega 117 mg IM Q28D 07/20/16 09/16/19 Sustenna] Amantadine HCl [Symmetrel] 100 mg PO BID 11/21/16 09/16/19 Dicyclomine [Bentyl] 20 mg PO QID 07/09/17 09/16/19 Albuterol Sulfate [Proair Hfa] 2 puff INHALATION RT-BID PRN 01/13/18 09/16/19 Butalb/Acetaminophen/Caffeine 1 tab PO Q8H PRN 01/13/18 09/16/19 [Fioricet 50-325-40] Fluticasone Propionate [Flovent 2 puff INHALATION RT-DAILY PRN 01/13/18 09/16/19 Hfa 110 mcg] Gemfibrozil [Lopid] 600 mg PO BID 01/13/18 09/16/19 Ondansetron HCl [Zofran] 8 mg PO TID PRN 01/13/18 09/16/19 tiZANidine HCL [Zanaflex] 4 mg PO Q6H PRN 01/13/18 09/16/19 Gabapentin [Neurontin] 300 mg PO HS 03/11/18 09/16/19 Fentanyl Pain Pump 1 dose INTRATHECA CONTINUOUS 09/16/19 09/16/19 Gabapentin [Neurontin] 600 mg PO TID 09/16/19 09/16/19 Lisinopril [Zestril] 20 mg PO DAILY 09/16/19 09/16/19 Omeprazole [PriLOSEC] 40 mg PO DAILY 09/16/19 09/16/19 cloNIDine HCL [Catapres] 0.1 mg PO HS 09/16/19 09/16/19 rOPINIRole HCL [Requip] 2 mg PO HS 09/16/19 09/16/19 traZODone HCL 200 mg PO HS 09/16/19 09/16/19 Allergies Allergy/AdvReac Type Severity Reaction Status Date / Time azithromycin Allergy Rash/Hives Verified 09/26/19 23:42 [From Zithromax Z-Mehrdad] cimetidine [From Tagamet] Allergy Rash/Hives Verified 09/26/19 23:42 ether [Ether] Allergy Anaphylaxis Verified 09/26/19 23:42 Fish Containing Products Allergy Anaphylaxis Verified 09/26/19 23:42 [Fish] ketorolac tromethamine Allergy Rash/Hives Verified 09/26/19 23:42 [From Toradol] ziprasidone HCl [From Geodon] Allergy Extrapyramidal Verified 09/26/19 23:42 Symptoms fluphenazine HCl AdvReac Extrapyramidal Verified 09/26/19 23:42 [From Prolixin] Symptoms haloperidol [From Haldol] AdvReac Extrapyramidal Verified 09/26/19 23:42 Symptoms Sulfa (Sulfonamide AdvReac Nausea & Verified 09/26/19 23:42 Antibiotics) Vomiting Review of Systems ROS Statement: Those systems with pertinent positive or pertinent negative responses have been documented in the HPI. ROS Other: All systems not noted in ROS Statement are negative. Past Medical History Past Medical History: Asthma, GERD/Reflux, Hyperlipidemia, Musculoskeletal Disorder, Neurologic Disorder, Osteoarthritis (OA), Seizure Disorder Additional Past Medical History / Comment(s): RSD-DERIC FEET, INTERSTITIAL CYSTITIS, BRONCHITIS, HEMORRHOIDS,MIGRAINES, INSOMNIA. VERTIGO, last seizure 4 years ago History of Any Multi-Drug Resistant Organisms: MRSA Date of last positivie culture/infection: 04/20/15 MDRO Source:: Left Axilla Past Surgical History: Adenoidectomy, Back Surgery, Cholecystectomy, Orthopedic Surgery, Tonsillectomy Additional Past Surgical History / Comment(s): bilateral foot surgery d/t rsd, numerous pain clinic procedures, nerve stimulator in back to tx RSD placed in Nov 11 2015, pain pump placement Past Anesthesia/Blood Transfusion Reactions: Previous Problems w/ Anesthesia Additional Past Anesthesia/Blood Transfusion Reaction / Comment(s): Pt recieved blood when she was 2 yrs old after tonsillectomy. WHEN BABY HEART STOPPED TWICE- PT STATED SHE WAS ALLERGIC TO ETHER. Past Psychological History: Anxiety, Bipolar, Depression, PTSD Smoking Status: Never smoker Past Alcohol Use History: None Reported Past Drug Use History: Marijuana - Past Family History Father History Unknown: Yes Family Medical History: Diabetes Mellitus Mother Family Medical History: Cancer, CVA/TIA, Diabetes Mellitus, Myocardial Infarction ([place]) Additional Family Medical History / Comment(s): Mother has had 5 CVAs, 3 MIs and UTERINE CANCER General Exam - General Exam Comments Initial Comments: GENERAL: Well-appearing, well-nourished and in no acute distress. HEAD: Atraumatic, normocephalic. EYES: Pupils equal round and reactive to light, extraocular movements intact, sclera anicteric, conjunctiva are normal. ENT: TMs normal, nares patent, oropharynx clear without exudates. Moist mucous membranes. NECK: Normal range of motion, supple without lymphadenopathy or JVD. LUNGS: Breath sounds clear to auscultation bilaterally and equal. No wheezes rales or rhonchi. HEART: Regular rate and rhythm without murmurs, rubs or gallops. ABDOMEN: Soft, nontender, normoactive bowel sounds. No guarding, no rebound. No masses appreciated. : Deferred EXTREMITIES: Normal range of motion, no pitting or edema. No clubbing or cyanosis. Patient has equal bilateral. Strength is 5 out of 5 upper and lower extremities bilaterally. NEUROLOGICAL: Normal speech, normal gait. PSYCH: Normal mood, normal affect. SKIN: Warm, Dry, normal turgor, no rashes or lesions noted. Limitations: no limitations Course Vital Signs 09/26/19 23:39 Temperature 98.4 F Pulse Rate 98 Respiratory 18 Rate Blood Pressure 151/74 O2 Sat by Pulse 98 Oximetry Medical Decision Making - Medical Decision Making Patient is a 33-year-old female here with chronic pain and on a fentanyl pain pump complaining of increase in bilateral lower leg pain. No injuries or trauma. Her vitals are stable. Her exam shows no acute neuro deficits. Patient will be given Toradol along with Benadryl. She'll follow back up with her doctor on Saturday. She is in agreement with this plan of care. She is stable for discharge. Return parameters were discussed with the patient she verbalized understanding. Case discussed with Dr. Stubbs. Disposition Clinical Impression: Chronic pain syndrome Disposition: HOME SELF-CARE Condition: Stable Instructions (If sedation given, give patient instructions): Chronic Pain (ED) Additional Instructions: Please return to the Emergency Department if symptoms worsen or any other concerns. Follow-up with PCP on Saturday. Is patient prescribed a controlled substance at d/c from ED?: No Referrals: China Doyle MD [Primary Care Provider] - 1-2 days
== END 2019-09-27 00:25 | disposition home or self-care (01) ==
LOC: EC 23:37
DX: G89.4 Chronic pain syndrome (principal); M79.662 Pain in left lower leg; M79.661 Pain in right lower leg; J45.909 Unspecified asthma, uncomplicated; K21.9 Gastro-esophageal reflux disease without esophagitis; E78.5 Hyperlipidemia, unspecified; M19.90 Unspecified osteoarthritis, unspecified site; G40.909 Epilepsy, unspecified, not intractable, without status epilepticus; F31.9 Bipolar disorder, unspecified; F41.9 Anxiety disorder, unspecified; F43.10 Post-traumatic stress disorder, unspecified; Z79.899 Other long term (current) drug therapy; Z88.1 Allergy status to other antibiotic agents; Z88.2 Allergy status to sulfonamides; Z88.8 Allergy status to other drugs, medicaments and biological substances; Z86.14 Personal history of Methicillin resistant Staphylococcus aureus infection; Z91.013 Allergy to seafood; Z91.048 Other nonmedicinal substance allergy status; Z97.8 Presence of other specified devices
CPT/HCPCS: 99283; 96372 ×2; J1200; J1885

== ENCOUNTER 2019-10-20 20:06 | Emergency (ER) | payer MEDICARE, OTHER ==
[2019-10-20 20:17] VITALS: BP 150/99; PULSE 90; RESP 18; TEMP 99.4
[2019-10-20] MEDS ORDERED: KETOROLAC 30 MG/ML 1 ML VIAL IM STA (20:23)
[2019-10-20] MEDS ORDERED: DIPH,PERTUS(ACELL)TETVAC-LF 0.5 ML VIAL IM ONE (20:23)
[2019-10-20] MEDS ORDERED: AMOXIC-POT CLAV 875MG STARTER PACK 2 TAB BTL PO STA (20:24)
[2019-10-20] MEDS ORDERED: diphenhydrAMINE 25 MG CAP PO STA (20:24)
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
--- NOTE | 2019-10-20 21:03 | XR ---
EXAMINATION TYPE: XR hand complete RT DATE OF EXAM: 10/20/2019 COMPARISON: NONE HISTORY: Pain TECHNIQUE: 3 views FINDINGS: Metacarpals appear intact. I see no fracture nor dislocation. There are no erosions. Joint spaces appear normal. IMPRESSION: Negative right hand exam. No fracture.
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
== END 2019-10-20 21:25 | disposition home or self-care (01) ==
LOC: EC 20:06
DX: S51.051A Open bite, right elbow, initial encounter (principal); M79.641 Pain in right hand; J45.909 Unspecified asthma, uncomplicated; K21.9 Gastro-esophageal reflux disease without esophagitis; F41.9 Anxiety disorder, unspecified; F31.9 Bipolar disorder, unspecified; E78.5 Hyperlipidemia, unspecified; G43.909 Migraine, unspecified, not intractable, without status migrainosus; G47.00 Insomnia, unspecified; G40.909 Epilepsy, unspecified, not intractable, without status epilepticus; F43.10 Post-traumatic stress disorder, unspecified; M19.90 Unspecified osteoarthritis, unspecified site; Z79.51 Long term (current) use of inhaled steroids; Z79.899 Other long term (current) drug therapy; Z88.2 Allergy status to sulfonamides; Z88.8 Allergy status to other drugs, medicaments and biological substances; Z88.6 Allergy status to analgesic agent; Z91.013 Allergy to seafood; Z88.1 Allergy status to other antibiotic agents; Z88.0 Allergy status to penicillin; Z79.3 Long term (current) use of hormonal contraceptives; Y04.1XXA Assault by human bite, initial encounter; Y93.89 Activity, other specified
CPT/HCPCS: 73110; 73130; 90715; 90471; 96372; 99284; 29125; J1885

== ENCOUNTER 2019-10-25 10:22 | Emergency (ER) | payer MEDICARE, OTHER ==
[2019-10-25 10:42] VITALS: RESP 18; TEMP 99.2
[2019-10-25] MEDS ORDERED: SODIUM CHLORIDE 0.9% 1,000 ML IV STA (10:42)
[2019-10-25] MEDS ORDERED: METOCLOPRAMIDE 5 MG/ML 2 ML VIAL IVP STA (10:42)
[2019-10-25] MEDS ORDERED: PANTOPRAZOLE 40 MG/10 ML VIAL IVP STA (10:53)
[2019-10-25] MEDS ORDERED: diphenhydrAMINE 50 MG/ML 1 ML VIAL IVP STA (10:53)
--- NOTE | 2019-10-25 10:57 | ED ---
Nausea/Vomiting/Diarrhea HPI - General Chief complaint: Nausea/Vomiting/Diarrhea Stated complaint: NVD Time Seen by Provider: 10/25/19 10:36 Source: patient Mode of arrival: ambulatory Limitations: no limitations - History of Present Illness Initial comments: Patient is a 33-year-old female, with history of regional pain syndrome with fentanyl pain pump, presenting to the emergency department via EMS with complaints of nausea and vomiting for the past 3 days. Patient states she has tried Zofran at home but it is not working. Patient is complaining of diffuse abdominal pain with the nausea and vomiting. Patient denies any recent fever but states she has been feeling cold recently. She denies any chest pain or shortness of breath. She denies any diarrhea. She states she does have some dysuria, no frequency. She denies being at this time. She denies any further complaints at this time. She did receive 4 mg of Zofran sublingual in EMS prior to arrival. Upon arrival to the ER, her vital signs are stable. - Related Data Home Medications Medication Instructions Recorded Confirmed Medroxyprogesterone Acetate 150 mg IM Q84D 11/22/13 09/16/19 [Depo-Provera] rOPINIRole HCL [Requip] 1 mg PO QAM 11/22/13 09/16/19 Pentosan Polysulfate Sodium 100 mg PO BID 02/10/15 09/16/19 [Elmiron] HYDROcodone/APAP 7.5-325MG [[place] 1 tab PO HS PRN 07/20/16 09/16/19 7.5-325] Paliperidone IM Pt Own [Invega 117 mg IM Q28D 07/20/16 09/16/19 Sustenna] amantadine HCL [Symmetrel] 100 mg PO BID 11/21/16 09/16/19 Dicyclomine [Bentyl] 20 mg PO QID 07/09/17 09/16/19 Albuterol Sulfate [Proair Hfa] 2 puff INHALATION RT-BID PRN 01/13/18 09/16/19 Butalb/Acetaminophen/Caffeine 1 tab PO Q8H PRN 01/13/18 09/16/19 [Fioricet 50-325-40] Fluticasone Propionate [Flovent 2 puff INHALATION RT-DAILY PRN 01/13/18 09/16/19 Hfa 110 mcg] Gemfibrozil [Lopid] 600 mg PO BID 01/13/18 09/16/19 Ondansetron HCl [Zofran] 8 mg PO TID PRN 01/13/18 09/16/19 tiZANidine HCL [Zanaflex] 4 mg PO Q6H PRN 01/13/18 09/16/19 Gabapentin [Neurontin] 300 mg PO HS 03/11/18 09/16/19 Fentanyl Pain Pump 1 dose INTRATHECA CONTINUOUS 09/16/19 09/16/19 Gabapentin [Neurontin] 600 mg PO TID 09/16/19 09/16/19 Omeprazole [PriLOSEC] 40 mg PO DAILY 09/16/19 09/16/19 cloNIDine HCL [Catapres] 0.1 mg PO HS 09/16/19 09/16/19 lisinopriL [Zestril] 20 mg PO DAILY 09/16/19 09/16/19 rOPINIRole HCL [Requip] 2 mg PO HS 09/16/19 09/16/19 traZODone HCL 200 mg PO HS 09/16/19 09/16/19 Allergies Allergy/AdvReac Type Severity Reaction Status Date / Time azithromycin Allergy Rash/Hives Verified 10/25/19 10:42 [From Zithromax Z-Mehrdad] cimetidine [From Tagamet] Allergy Rash/Hives Verified 10/25/19 10:42 ether [Ether] Allergy Anaphylaxis Verified 10/25/19 10:42 Fish Containing Products Allergy Anaphylaxis Verified 10/25/19 10:42 [Fish] ketorolac tromethamine Allergy Rash/Hives Verified 10/25/19 10:42 [From Toradol] ziprasidone HCl [From Geodon] Allergy Extrapyramidal Verified 10/25/19 10:42 Symptoms fluphenazine HCl AdvReac Extrapyramidal Verified 10/25/19 10:42 [From Prolixin] Symptoms haloperidol [From Haldol] AdvReac Extrapyramidal Verified 10/25/19 10:42 Symptoms Sulfa (Sulfonamide AdvReac Nausea & Verified 10/25/19 10:42 Antibiotics) Vomiting Review of Systems ROS Statement: Those systems with pertinent positive or pertinent negative responses have been documented in the HPI. ROS Other: All systems not noted in ROS Statement are negative. Past Medical History Past Medical History: Asthma, GERD/Reflux, Hyperlipidemia, Musculoskeletal Disorder, Neurologic Disorder, Osteoarthritis (OA), Seizure Disorder Additional Past Medical History / Comment(s): RSD-DERIC FEET, INTERSTITIAL CYSTITIS, BRONCHITIS, HEMORRHOIDS,MIGRAINES, INSOMNIA. VERTIGO, last seizure 4 years ago History of Any Multi-Drug Resistant Organisms: MRSA Date of last positivie culture/infection: 04/20/15 MDRO Source:: Left Axilla Past Surgical History: Adenoidectomy, Back Surgery, Cholecystectomy, Orthopedic Surgery, Tonsillectomy Additional Past Surgical History / Comment(s): bilateral foot surgery d/t rsd, numerous pain clinic procedures, nerve stimulator in back to tx RSD placed in Nov 11 2015, pain pump placement Past Anesthesia/Blood Transfusion Reactions: Previous Problems w/ Anesthesia Additional Past Anesthesia/Blood Transfusion Reaction / Comment(s): Pt recieved blood when she was 2 yrs old after tonsillectomy. WHEN BABY HEART STOPPED TWICE- PT STATED SHE WAS ALLERGIC TO ETHER. Past Psychological History: Anxiety, Bipolar, Depression, PTSD Smoking Status: Never smoker Past Alcohol Use History: None Reported Past Drug Use History: Marijuana - Past Family History Father History Unknown: Yes Family Medical History: Diabetes Mellitus Mother Family Medical History: Cancer, CVA/TIA, Diabetes Mellitus, Myocardial Infarction ([place]) Additional Family Medical History / Comment(s): Mother has had 5 CVAs, 3 MIs and UTERINE CANCER General Exam - General Exam Comments Initial Comments: GENERAL: Patient is well-developed and well-nourished. Patient is actively dry heaving in the ER, shaking. HEAD: Atraumatic, normocephalic. EYES: Pupils equal round and reactive to light, extraocular movements intact, sclera anicteric, conjunctiva are normal. Eyelids were unremarkable. ENT: TMs normal, nares patent, oropharynx clear without exudates. Moist mucous membranes. NECK: Normal range of motion, supple without lymphadenopathy or JVD. LUNGS: Unlabored respirations. Breath sounds clear to auscultation bilaterally and equal. No wheezes rales or rhonchi. HEART: Regular rate and rhythm without murmurs, rubs or gallops. ABDOMEN: Diffuse abdominal pain, no specific area tenderness. Soft, normoactive bowel sounds. No guarding, no rebound. No masses appreciated. : Deferred MUSCULOSKELETAL: Normal extremities with adequate strength and normal range of motion, no pitting or edema. No clubbing or cyanosis. NEUROLOGICAL: Patient is alert and oriented x 3. Motor and sensory are also intact. Cranial nerves II through XII grossly intact. Normal speech, normal gait. Symmetrical smile. PSYCH: Normal mood, normal affect. SKIN: Warm, Dry, normal turgor, no rashes or lesions noted. Limitations: no limitations Course Vital Signs 10/25/19 10/25/19 10/25/19 10:39 11:47 11:50 Temperature 99.2 F Pulse Rate 84 100 Respiratory 18 18 Rate Blood Pressure 133/109 93/76 112/94 O2 Sat by Pulse 98 97 Oximetry 10/25/19 13:15 Temperature Pulse Rate 92 Respiratory 18 Rate Blood Pressure 114/74 O2 Sat by Pulse 98 Oximetry Medical Decision Making - Medical Decision Making Patient is a 33-year-old female here via EMS for nausea and vomiting 3 days. Her vital signs are stable. Patient is actively dry heaving in the ER, shaking. She has diffuse abdominal pain on palpation, no specific area pain. She does have a pain pump for chronic pain syndrome and receives fentanyl. Patient's lab work is unremarkable, no acute findings. Patient was unable to leave a urine sample for us. Patient was given fluids, Reglan, Benadryl, Protonix and Zofran. She does report improvement in her symptoms and she is requesting to go home. Patient states she rather sleep in her own bed. Patient will be discharged. She'll follow up with her PCP. She is in agreement with this plan of care. Return parameters were discussed with the patient she verbalized understanding. Case discussed with Dr. Hoang. - Lab Data Result diagrams: 10/25/19 10:49 10/25/19 10:49 Lab Results 10/25/19 10/25/19 10/25/19 Range/Units 10:49 10:49 10:49 WBC 7.4 (3.8-10.6) k/uL RBC 4.85 (3.80-5.40) m/uL Hgb 15.0 (11.4-16.0) gm/dL Hct 42.4 (34.0-46.0) % MCV 87.5 (80.0-100.0) fL MCH 31.0 (25.0-35.0) pg MCHC 35.4 (31.0-37.0) g/dL RDW 12.3 (11.5-15.5) % Plt Count 241 (150-450) k/uL Neutrophils % 78 % Lymphocytes % 16 % Monocytes % 3 % Eosinophils % 1 % Basophils % 1 % Neutrophils # 5.8 (1.3-7.7) k/uL Lymphocytes # 1.2 (1.0-4.8) k/uL Monocytes # 0.2 (0-1.0) k/uL Eosinophils # 0.1 (0-0.7) k/uL Basophils # 0.1 (0-0.2) k/uL Sodium 139 (137-145) mmol/L Potassium 4.1 (3.5-5.1) mmol/L Chloride 109 H (98-107) mmol/L Carbon Dioxide 19 L (22-30) mmol/L Anion Gap 11 mmol/L BUN 17 (7-17) mg/dL Creatinine 0.56 (0.52-1.04) mg/dL Est GFR (CKD-EPI)AfAm >90 (>60 ml/min/1.73 sqM) Est GFR (CKD-EPI)NonAf >90 (>60 ml/min/1.73 sqM) Glucose 118 H (74-99) mg/dL Plasma Lactic Acid Mao 1.7 (0.7-2.0) mmol/L Calcium 10.0 (8.4-10.2) mg/dL Total Bilirubin 0.2 (0.2-1.3) mg/dL AST 15 (14-36) U/L ALT 10 (4-34) U/L Alkaline Phosphatase 106 (38-126) U/L Total Protein 6.5 (6.3-8.2) g/dL Albumin 4.5 (3.5-5.0) g/dL Amylase 56 (30-110) U/L Lipase 85 (23-300) U/L Disposition Clinical Impression: Nausea & vomiting Disposition: HOME SELF-CARE Condition: Stable Instructions (If sedation given, give patient instructions): Acute Nausea and Vomiting (ED) Additional Instructions: Please return to the Emergency Department if symptoms worsen or any other co ncerns. Continue with Zofran as needed for additional nausea. Recommend following up with PCP in 1-3 days. Is patient prescribed a controlled substance at d/c from ED?: No Referrals: China Doyle MD [Primary Care Provider] - 1-2 days
[2019-10-25 11:05] LABS: Basophils # (A) 0.1 k/uL (0-0.2); Basophils % (A) 1 %; Eosinophils # (A) 0.1 k/uL (0-0.7); Eosinophils % (A) 1 %; HCT 42.4 % (34.0-46.0); Lymphocytes # (A) 1.2 k/uL (1.0-4.8); Lymphocytes % (A) 16 %; MCHC 35.4 g/dL (31.0-37.0); MCV 87.5 fL (80.0-100.0); Mean Platelet Volume 7.2; Monocytes # (A) 0.2 k/uL (0-1.0); Monocytes % (A) 3 %; Neutrophils # (A) 5.8 k/uL (1.3-7.7); Neutrophils % (A) 78 %; Platelet Count 241 k/uL (150-450); RBC 4.85 m/uL (3.80-5.40); RDW 12.3 % (11.5-15.5); WBC 7.4 k/uL (3.8-10.6)
[2019-10-25 11:16] LABS: ALT 10 U/L (4-34); AST 15 U/L (14-36); African American GFR (CKD) >90 (>60 ml/min/1.73 sqM); Albumin 4.5 g/dL (3.5-5.0); Alkaline Phosphatase 106 U/L (38-126); Amylase 56 U/L (30-110); Anion Gap 11 mmol/L; Blood Urea Nitrogen 17 mg/dL (7-17); Carbon Dioxide 19 mmol/L (22-30); Chloride 109 mmol/L (98-107); Glucose 118 mg/dL (74-99); Non-African American GFR(CKD) >90 (>60 ml/min/1.73 sqM); Potassium 4.1 mmol/L (3.5-5.1); Sodium 139 mmol/L (137-145); Total Bilirubin 0.2 mg/dL (0.2-1.3); Total Protein 6.5 g/dL (6.3-8.2)
[2019-10-25] MEDS ORDERED: ONDANSETRON 4 MG/2 ML VIAL IVP STA (11:29)
[2019-10-25 13:17] VITALS: BP 114/74; PULSE 92
== END 2019-10-25 12:34 | disposition home or self-care (01) ==
LOC: EC 10:22
DX: R11.2 Nausea with vomiting, unspecified (principal); R10.9 Unspecified abdominal pain; G89.4 Chronic pain syndrome; J45.909 Unspecified asthma, uncomplicated; K21.9 Gastro-esophageal reflux disease without esophagitis; E78.5 Hyperlipidemia, unspecified; M19.90 Unspecified osteoarthritis, unspecified site; G40.909 Epilepsy, unspecified, not intractable, without status epilepticus; G90.523 Complex regional pain syndrome I of lower limb, bilateral; G43.909 Migraine, unspecified, not intractable, without status migrainosus; F41.9 Anxiety disorder, unspecified; F31.9 Bipolar disorder, unspecified; F43.10 Post-traumatic stress disorder, unspecified; G47.00 Insomnia, unspecified; Z79.51 Long term (current) use of inhaled steroids; Z79.899 Other long term (current) drug therapy; Z79.3 Long term (current) use of hormonal contraceptives; Z88.1 Allergy status to other antibiotic agents; Z88.6 Allergy status to analgesic agent; Z88.8 Allergy status to other drugs, medicaments and biological substances; Z91.013 Allergy to seafood; Z88.2 Allergy status to sulfonamides; Z86.14 Personal history of Methicillin resistant Staphylococcus aureus infection
CPT/HCPCS: 36415; 80053; 82150; 83605; 83690; 85025; 99284; 96374; 96375 ×3; 96361; J1200; J2765; J2405; C9113

== ENCOUNTER → 2019-11-13 | Outpatient (CLI) | payer MEDICARE, OTHER ==
--- NOTE | 2019-11-15 15:53 | CT ---
EXAMINATION TYPE: CT lumbar spine wo con DATE OF EXAM: 11/13/2019 7:23 AM COMPARISON: CT abdomen pelvis 04/17/2017 HISTORY: Low back pain CT DLP: 435.00 mGycm Automated exposure control for dose reduction was used. Unenhanced CT of the lumbar spine was performed. Bone and soft tissue window settings are submitted as well as coronal and sagittal reconstructions. Intrathecal spinal stimulator device with multiple leads seen entering the spinal canal at the level of L5-S1, L4-5, L2-3, and T11-T12. Devices within the right flank. There are degenerative endplate Schmorl's node changes. Vertebral body heights are normal. L1-L2: Normal disc space height. No disc herniation protrusion or central stenosis. No facet joint arthropathy. No evidence for foraminal encroachment. L2-L3: Normal disc space height. No disc herniation protrusion or central stenosis. No facet joint arthropathy. No evidence for foraminal encroachment. L3-L4: Normal disc space height. Mild circumferential disc bulge. No central stenosis. No facet join t arthropathy. Mild right foraminal encroachment. L4-L5: Normal disc space height. No disc herniation protrusion or central stenosis. There is right f acet joint arthropathy. Likely mild right foraminal encroachment, although with streak artifact due t o intrathecal leads coursing through the bilateral neural foramen. L5-S1: Normal disc space height. No disc herniation protrusion or central stenosis. No facet joint arthropathy. Evaluation of neural foramina encroachment is limited due to intrathecal leads coursing through the bilateral neural foramen, with no evidence of severe narrowing bilaterally. Redemonstrated right renal cortical scarring. IMPRESSION: 1. Intrathecal spinal stimulator with multiple leads redemonstrated from 2018 CT comparison, with in terval placement of lead entering the spinal canal at the L2-3 level. 2. No evidence of central stenosis. Mild neural foramina narrowing as above.
== END | disposition home or self-care (01) ==
LOC: RADCTMAIN 06:57
PROVIDERS: ATTEND Psychiatry & Neurology Neurology
DX: M48.061 Spinal stenosis, lumbar region without neurogenic claudication (principal)
CPT/HCPCS: 72131

== ENCOUNTER 2019-12-16 17:45 | Emergency (ER) | payer MEDICARE, OTHER ==
[2019-12-16 18:06] VITALS: BP 128/100; PULSE 107; RESP 18; TEMP 97.9
--- NOTE | 2019-12-16 18:09 | ED ---
Extremity Problem HPI - General Chief complaint: Extremity Problem,Nontraumatic Stated complaint: bilat foot pain Time Seen by Provider: 12/16/19 17:53 Source: patient Mode of arrival: ambulatory Limitations: no limitations - History of Present Illness Initial comments: Patient is a 34-year-old female presenting to the emergency department with a chief complaint of left foot pain. Patient states she has developed regional complex syndrome the left foot after having bunion surgery. Patient states she ready has a fentanyl pain pump but her left foot "feels inflamed". Patient reports recently she had a soft cast applied to the left foot along with a surgical shoe by her orthopedic surgeon . Patient states she is looking for Toradol and Benadryl to alleviate the inflammation. She denies any numbness or tingling. States the pain has been there for the past 1-2 days. - Related Data Home Medications Medication Instructions Recorded Confirmed Medroxyprogesterone Acetate 150 mg IM Q84D 11/22/13 09/16/19 [Depo-Provera] rOPINIRole HCL [Requip] 1 mg PO QAM 11/22/13 09/16/19 Pentosan Polysulfate Sodium 100 mg PO BID 02/10/15 09/16/19 [Elmiron] HYDROcodone/APAP 7.5-325MG [[place] 1 tab PO HS PRN 07/20/16 09/16/19 7.5-325] Paliperidone IM Pt Own [Invega 117 mg IM Q28D 07/20/16 09/16/19 Sustenna] amantadine HCL [Symmetrel] 100 mg PO BID 11/21/16 09/16/19 Dicyclomine [Bentyl] 20 mg PO QID 07/09/17 09/16/19 Albuterol Sulfate [Proair Hfa] 2 puff INHALATION RT-BID PRN 01/13/18 09/16/19 Butalb/Acetaminophen/Caffeine 1 tab PO Q8H PRN 01/13/18 09/16/19 [Fioricet 50-325-40] Fluticasone Propionate [Flovent 2 puff INHALATION RT-DAILY PRN 01/13/18 09/16/19 Hfa 110 mcg] Gemfibrozil [Lopid] 600 mg PO BID 01/13/18 09/16/19 Ondansetron HCl [Zofran] 8 mg PO TID PRN 01/13/18 09/16/19 tiZANidine HCL [Zanaflex] 4 mg PO Q6H PRN 01/13/18 09/16/19 Gabapentin [Neurontin] 300 mg PO HS 03/11/18 09/16/19 Fentanyl Pain Pump 1 dose INTRATHECA CONTINUOUS 09/16/19 09/16/19 Gabapentin [Neurontin] 600 mg PO TID 09/16/19 09/16/19 Omeprazole [PriLOSEC] 40 mg PO DAILY 09/16/19 09/16/19 cloNIDine HCL [Catapres] 0.1 mg PO HS 09/16/19 09/16/19 lisinopriL [Zestril] 20 mg PO DAILY 09/16/19 09/16/19 rOPINIRole HCL [Requip] 2 mg PO HS 09/16/19 09/16/19 traZODone HCL 200 mg PO HS 09/16/19 09/16/19 Allergies Allergy/AdvReac Type Severity Reaction Status Date / Time azithromycin Allergy Rash/Hives Verified 12/16/19 17:49 [From Zithromax Z-Mehrdad] cimetidine [From Tagamet] Allergy Rash/Hives Verified 12/16/19 17:49 ether [Ether] Allergy Anaphylaxis Verified 12/16/19 17:49 Fish Containing Products Allergy Anaphylaxis Verified 12/16/19 17:49 [Fish] ketorolac tromethamine Allergy Rash/Hives Verified 12/16/19 17:49 [From Toradol] ziprasidone HCl [From Geodon] Allergy Extrapyramidal Verified 12/16/19 17:49 Symptoms fluphenazine HCl AdvReac Extrapyramidal Verified 12/16/19 17:49 [From Prolixin] Symptoms haloperidol [From Haldol] AdvReac Extrapyramidal Verified 12/16/19 17:49 Symptoms Sulfa (Sulfonamide AdvReac Nausea & Verified 12/16/19 17:49 Antibiotics) Vomiting Review of Systems ROS Statement: Those systems with pertinent positive or pertinent negative responses have been documented in the HPI. ROS Other: All systems not noted in ROS Statement are negative. Past Medical History Past Medical History: Asthma, GERD/Reflux, Hyperlipidemia, Musculoskeletal Disorder, Neurologic Disorder, Osteoarthritis (OA), Seizure Disorder Additional Past Medical History / Comment(s): RSD-DERIC FEET, INTERSTITIAL CYSTITIS, BRONCHITIS, HEMORRHOIDS,MIGRAINES, INSOMNIA. VERTIGO, last seizure 4 years ago History of Any Multi-Drug Resistant Organisms: MRSA Date of last positivie culture/infection: 04/20/15 MDRO Source:: Left Axilla Past Surgical History: Adenoidectomy, Back Surgery, Cholecystectomy, Orthopedic Surgery, Tonsillectomy Additional Past Surgical History / Comment(s): bilateral foot surgery d/t rsd, numerous pain clinic procedures, nerve stimulator in back to tx RSD placed in Nov 11 2015, pain pump placement Past Anesthesia/Blood Transfusion Reactions: Previous Problems w/ Anesthesia Additional Past Anesthesia/Blood Transfusion Reaction / Comment(s): Pt recieved blood when she was 2 yrs old after tonsillectomy. WHEN BABY HEART STOPPED TWICE- PT STATED SHE WAS ALLERGIC TO ETHER. Past Psychological History: Anxiety, Bipolar, Depression, PTSD Smoking Status: Never smoker Past Alcohol Use History: None Reported Past Drug Use History: Marijuana - Past Family History Father History Unknown: Yes Family Medical History: Diabetes Mellitus Mother Family Medical History: Cancer, CVA/TIA, Diabetes Mellitus, Myocardial Infarction ([place]) Additional Family Medical History / Comment(s): Mother has had 5 CVAs, 3 MIs and UTERINE CANCER General Exam Limitations: no limitations General appearance: alert, in no apparent distress Head exam: Present: atraumatic, normocephalic, normal inspection Eye exam: Present: normal appearance, PERRL, EOMI Pupils: Present: normal accommodation ENT exam: Present: normal exam, normal oropharynx, mucous membranes moist, TM's normal bilaterally, normal external ear exam Neck exam: Present: normal inspection, full ROM. Absent: tenderness Respiratory exam: Present: normal lung sounds bilaterally. Absent: respiratory distress, wheezes, rales Cardiovascular Exam: Present: regular rate, normal rhythm, normal heart sounds Extremities exam: Present: normal inspection (Surgical shoe to the left foot.), full ROM, tenderness (Generalized tenderness the left lower from it. No calf tenderness. Negative Homans), normal capillary refill, other (+2 dorsalis pedis and posterior tibial bilaterally.). Absent: calf tenderness Back exam: Present: normal inspection, full ROM. Absent: tenderness, CVA tenderness (R), CVA tenderness (L) Neurological exam: Present: alert, oriented X3, normal gait Psychiatric exam: Present: normal affect, normal mood Skin exam: Present: warm, dry, intact, normal color Course Vital Signs 12/16/19 12/16/19 17:46 18:02 Temperature 99.1 F 97.9 F Pulse Rate 100 107 H Respiratory 16 18 Rate Blood Pressure 127/85 128/100 O2 Sat by Pulse 98 95 Oximetry Medical Decision Making - Medical Decision Making Patient is a 34-year-old female presenting to emergency Department with chief complaint of left foot pain. Patient has history of regional complex syndrome and is requesting Toradol and Benadryl to help with inflammation. Patient was given IM Toradol and IM Benadryl. On reevaluation, patient reports improvement in symptoms and feels comfortable going home. She has an appointment this week with her orthopedic surgeon. Strict return parameters were thoroughly discussed with patient was understanding and agreeable. Case discussed with physician. Disposition Clinical Impression: Left leg pain Disposition: HOME SELF-CARE Condition: Stable Instructions (If sedation given, give patient instructions): Complex Regional Pain Syndrome ([place]) Additional Instructions: Follow-up with orthopedics. Return to emergency department if symptoms worsen. Is patient prescribed a controlled substance at d/c from ED?: No Referrals: China Doyle MD [Primary Care Provider] - 1-2 days Time of Disposition: 18:17
[2019-12-16] MEDS ORDERED: KETOROLAC 15 MG/ML 1 ML VIAL IM STA (18:16)
[2019-12-16] MEDS ORDERED: diphenhydrAMINE 50 MG/ML 1 ML VIAL IM STA (18:16)
[2019-12-16] MEDS ORDERED: KETOROLAC 15 MG/ML 1 ML VIAL ONE (18:23)
== END 2019-12-16 18:42 | disposition home or self-care (01) ==
LOC: EC 17:45
DX: M79.672 Pain in left foot (principal); F41.9 Anxiety disorder, unspecified; F31.9 Bipolar disorder, unspecified; F43.10 Post-traumatic stress disorder, unspecified; J45.909 Unspecified asthma, uncomplicated; K21.9 Gastro-esophageal reflux disease without esophagitis; E78.5 Hyperlipidemia, unspecified; G40.909 Epilepsy, unspecified, not intractable, without status epilepticus; Z79.899 Other long term (current) drug therapy; Z86.14 Personal history of Methicillin resistant Staphylococcus aureus infection; Z88.1 Allergy status to other antibiotic agents; Z88.2 Allergy status to sulfonamides; Z88.8 Allergy status to other drugs, medicaments and biological substances; Z91.013 Allergy to seafood; Z91.048 Other nonmedicinal substance allergy status
CPT/HCPCS: 99283; 96372 ×2; J1200; J1885

== ENCOUNTER 2019-12-21 16:33 | Emergency (ER) | payer MEDICARE, OTHER ==
[2019-12-21 16:50] VITALS: BP 133/72; PULSE 86; RESP 18; TEMP 98
[2019-12-21] MEDS ORDERED: KETOROLAC 15 MG/ML 1 ML VIAL IM STA (17:14)
[2019-12-21] MEDS ORDERED: diphenhydrAMINE 50 MG/ML 1 ML VIAL IM STA (17:14)
--- NOTE | 2019-12-21 17:24 | ED ---
Extremity Problem HPI - General Source: patient, RN notes reviewed, old records reviewed Mode of arrival: ambulatory Limitations: no limitations <Rosanne Story - Last Filed: 12/22/19 11:09> <Luna Hoang - Last Filed: 12/26/19 13:32> - General Chief complaint: Extremity Problem,Nontraumatic Stated complaint: pain in legs Time Seen by Provider: 12/21/19 16:52 - History of Present Illness Initial comments: 34-year-old female presents to the ER today for evaluation for chronic bilateral leg pain. Patient reports that she's had chronic leg pain and has a neurostimulator in her back for this. She states she sees Dr. Agee and pain management. Patient reports that she will come to the ER for IM Toradol and Benadryl with her ALLERGY to Toradol. Patient states that she's had no falls or trauma causing onset of pains. She denies any lower extremity swelling. She states that she is here just receive pain management with Toradol and Benadryl. (Rosanne Story) - Related Data Home Medications Medication Instructions Recorded Confirmed Medroxyprogesterone Acetate 150 mg IM Q84D 11/22/13 09/16/19 [Depo-Provera] rOPINIRole HCL [Requip] 1 mg PO QAM 11/22/13 09/16/19 Pentosan Polysulfate Sodium 100 mg PO BID 02/10/15 09/16/19 [Elmiron] HYDROcodone/APAP 7.5-325MG [[place] 1 tab PO HS PRN 07/20/16 09/16/19 7.5-325] Paliperidone IM Pt Own [Invega 117 mg IM Q28D 07/20/16 09/16/19 Sustenna] amantadine HCL [Symmetrel] 100 mg PO BID 11/21/16 09/16/19 Dicyclomine [Bentyl] 20 mg PO QID 07/09/17 09/16/19 Albuterol Sulfate [Proair Hfa] 2 puff INHALATION RT-BID PRN 01/13/18 09/16/19 Butalb/Acetaminophen/Caffeine 1 tab PO Q8H PRN 01/13/18 09/16/19 [Fioricet 50-325-40] Fluticasone Propionate [Flovent 2 puff INHALATION RT-DAILY PRN 01/13/18 09/16/19 Hfa 110 mcg] Gemfibrozil [Lopid] 600 mg PO BID 01/13/18 09/16/19 Ondansetron HCl [Zofran] 8 mg PO TID PRN 01/13/18 09/16/19 tiZANidine HCL [Zanaflex] 4 mg PO Q6H PRN 01/13/18 09/16/19 Gabapentin [Neurontin] 300 mg PO HS 03/11/18 09/16/19 Fentanyl Pain Pump 1 dose INTRATHECA CONTINUOUS 09/16/19 09/16/19 Gabapentin [Neurontin] 600 mg PO TID 09/16/19 09/16/19 Omeprazole [PriLOSEC] 40 mg PO DAILY 09/16/19 09/16/19 cloNIDine HCL [Catapres] 0.1 mg PO HS 09/16/19 09/16/19 lisinopriL [Zestril] 20 mg PO DAILY 09/16/19 09/16/19 rOPINIRole HCL [Requip] 2 mg PO HS 09/16/19 09/16/19 traZODone HCL 200 mg PO HS 09/16/19 09/16/19 Allergies Allergy/AdvReac Type Severity Reaction Status Date / Time azithromycin Allergy Rash/Hives Verified 12/21/19 16:50 [From Zithromax Z-Mehrdad] cimetidine [From Tagamet] Allergy Rash/Hives Verified 12/21/19 16:50 ether [Ether] Allergy Anaphylaxis Verified 12/21/19 16:50 Fish Containing Products Allergy Anaphylaxis Verified 12/21/19 16:50 [Fish] ketorolac tromethamine Allergy Rash/Hives Verified 12/21/19 16:50 [From Toradol] ziprasidone HCl [From Geodon] Allergy Extrapyramidal Verified 12/21/19 16:50 Symptoms fluphenazine HCl AdvReac Extrapyramidal Verified 12/21/19 16:50 [From Prolixin] Symptoms haloperidol [From Haldol] AdvReac Extrapyramidal Verified 12/21/19 16:50 Symptoms Sulfa (Sulfonamide AdvReac Nausea & Verified 12/21/19 16:50 Antibiotics) Vomiting Review of Systems ROS Other: All systems not noted in ROS Statement are negative. <Aranyos,Rosanne - Last Filed: 12/22/19 11:09> ROS Other: All systems not noted in ROS Statement are negative. <Luna Hoang - Last Filed: 12/26/19 13:32> ROS Statement: Those systems with pertinent positive or pertinent negative responses have been documented in the HPI. Past Medical History Past Medical History: Asthma, GERD/Reflux, Hyperlipidemia, Musculoskeletal Disorder, Neurologic Disorder, Osteoarthritis (OA), Seizure Disorder Additional Past Medical History / Comment(s): RSD-DERIC FEET, INTERSTITIAL CYSTITIS, BRONCHITIS, HEMORRHOIDS,MIGRAINES, INSOMNIA. VERTIGO, last seizure 4 years ago History of Any Multi-Drug Resistant Organisms: MRSA Date of last positivie culture/infection: 04/20/15 MDRO Source:: Left Axilla Past Surgical History: Adenoidectomy, Back Surgery, Cholecystectomy, Orthopedic Surgery, Tonsillectomy Additional Past Surgical History / Comment(s): bilateral foot surgery d/t rsd, numerous pain clinic procedures, nerve stimulator in back to tx RSD placed in Nov 11 2015, pain pump placement Past Anesthesia/Blood Transfusion Reactions: Previous Problems w/ Anesthesia Additional Past Anesthesia/Blood Transfusion Reaction / Comment(s): Pt recieved blood when she was 2 yrs old after tonsillectomy. WHEN BABY HEART STOPPED TWICE- PT STATED SHE WAS ALLERGIC TO ETHER. Past Psychological History: Anxiety, Bipolar, Depression, PTSD Smoking Status: Never smoker Past Alcohol Use History: None Reported Past Drug Use History: Marijuana - Past Family History Father History Unknown: Yes Family Medical History: Diabetes Mellitus Mother Family Medical History: Cancer, CVA/TIA, Diabetes Mellitus, Myocardial Infarction (SD) Additional Family Medical History / Comment(s): Mother has had 5 CVAs, 3 MIs and UTERINE CANCER <Sherie Storyily - Last Filed: 12/22/19 11:09> General Exam Limitations: no limitations <Sherie Storyily - Last Filed: 12/22/19 11:09> - General Exam Comments Initial Comments: 34-year-old female. Alert and oriented. No distress. General: Well appearing, well nourished, in no distress. Oriented x 3, normal mood and affect . Ambulating without difficulty. Skin: Good turgor, no rash, unusual bruising or prominent lesions Hair: Normal texture and distribution. HEENT: Head: Normocephalic, atraumatic, no visible or palpable masses, depressions, or scaring. Mouth: Mucous membranes moist, no mucosal lesions. Neck: Supple, without lesions, bruits, or adenopathy, thyroid non-enlarged and non-tender Heart: No cardiomegaly or thrills; regular rate and rhythm, no murmur or gallop Lungs: Clear to auscultation and percussion Abdomen: Bowel sounds normal, no tenderness, organomegaly, masses, or hernia Back: Spine normal without deformity or tenderness, no CVA tenderness . Extremities: No amputations or deformities, cyanosis, edema or varicosities, peripheral pulses intact. Full range of motion of bilateral legs. No deformities. No rashes. Patient has dorsalis pedis pulse 2+ bilaterally. Musculoskeletal: Normal gait and station. No misalignment, asymmetry, crepitation, defects, tenderness, masses, effusions, decreased range of motion, instability, atrophy or abnormal strength or tone in the head, neck, spine, ribs, pelvis or extremities. Neurologic: CN 2-12 normal. Sensation to pain, touch, and proprioception normal. DTRs normal in upper and lower extremities. No pathologic reflexes. (Rosanne Story) Course Vital Signs 12/21/19 12/21/19 16:47 17:40 Temperature 98.0 F 98.0 F Pulse Rate 86 86 Respiratory 18 18 Rate Blood Pressure 133/72 133/72 O2 Sat by Pulse 97 97 Oximetry Medical Decision Making <Rosanne Story - Last Filed: 12/22/19 11:09> <Luna Hoang - Last Filed: 12/26/19 13:32> - Medical Decision Making Pleasant 30-year-old female presents emergency room today for chronic bilateral leg pain requesting IM Toradol and Benadryl for her pain. She does have a neurostimulator. She sees pain management. This is related to her chronic pain. Discussed no narcotics will be given but she can be given IM Toradol. I advised Patient to follow-up with her painting manager. She states that her pain is worse after doing a lot of activity in the household. Discussed return parameters. (Rosanne Story) I was available for consultation in the emergency department. The history and physical exam were done by the midlevel provider. I was not consulted for this patients care. Chart was dictated using [employer] dictation software. Attempts were made to correct any dictation errors however some typographical errors may persist. Patient was seen during a national state of emergency due to the Covid-19 pandemic. (Luna Hoang) Disposition Is patient prescribed a controlled substance at d/c from ED?: No Time of Disposition: 17:24 <Rosanne Story - Last Filed: 12/22/19 11:09> <Luna Hoang - Last Filed: 12/26/19 13:32> Clinical Impression: Chronic leg pain Disposition: HOME SELF-CARE Condition: Good Instructions (If sedation given, give patient instructions): Leg Pain (ED) Additional Instructions: Follow-up with painting manager. Return to the ED if any alarming signs or symptoms occur. Referrals: China Doyle MD [Primary Care Provider] - 1-2 days
== END 2019-12-21 17:42 | disposition home or self-care (01) ==
LOC: EC 16:33
DX: G89.29 Other chronic pain (principal); M79.604 Pain in right leg; M79.605 Pain in left leg; J45.909 Unspecified asthma, uncomplicated; E78.5 Hyperlipidemia, unspecified; K21.9 Gastro-esophageal reflux disease without esophagitis; G40.909 Epilepsy, unspecified, not intractable, without status epilepticus; F41.9 Anxiety disorder, unspecified; F31.9 Bipolar disorder, unspecified; Z79.899 Other long term (current) drug therapy; Z79.51 Long term (current) use of inhaled steroids; Z88.1 Allergy status to other antibiotic agents; Z88.8 Allergy status to other drugs, medicaments and biological substances; Z88.5 Allergy status to narcotic agent; Z91.013 Allergy to seafood; Z88.2 Allergy status to sulfonamides
CPT/HCPCS: 99283; 96372 ×2; J1200; J1885

== ENCOUNTER 2019-12-26 21:27 | Emergency (ER) | payer MEDICARE, OTHER ==
[2019-12-26 21:37] VITALS: BP 134/95; PULSE 107; RESP 18; TEMP 98.7
[2019-12-26] MEDS ORDERED: KETOROLAC 15 MG/ML 1 ML VIAL IM STA (22:07)
[2019-12-26] MEDS ORDERED: diphenhydrAMINE 50 MG/ML 1 ML VIAL IM STA (22:07)
--- NOTE | 2019-12-26 22:08 | ED ---
General Adult HPI - General Chief complaint: Extremity Problem,Nontraumatic Stated complaint: Complication Restless Leg Syndrome Time Seen by Provider: 12/26/19 21:43 Source: patient Mode of arrival: ambulatory Limitations: no limitations - History of Present Illness Initial comments: 34-year-old female patient with past medical history significant for restless leg syndrome and complex regional pain syndrome presents to the emergency department today for evaluation of bilateral lower extremity pain and restlessness. Patient states that she does have an implanted fentanyl pump with bupivacaine. Patient states occasionally she'll have breakthrough pain and symptoms. States that she's been having increased symptoms for the last 4 days and hasn't been able to sleep. She denies any new symptoms. Denies any injury to the lower extremities. She denies numbness to the legs. Patient states she usually will get an injection of Toradol and Benadryl and this will resolve her symptoms. Patient denies any recent rash, fever, chills, cough, shortness of breath, chest pain, abdominal pain, nausea, vomiting, diarrhea, constipation, back pain, numbness, tingling, dizziness, weakness, hematuria, dysuria, urinary urgency, urinary frequency, headache, visual changes, or any other complaints. - Related Data Home Medications Medication Instructions Recorded Confirmed Medroxyprogesterone Acetate 150 mg IM Q84D 11/22/13 09/16/19 [Depo-Provera] rOPINIRole HCL [Requip] 1 mg PO QAM 11/22/13 09/16/19 Pentosan Polysulfate Sodium 100 mg PO BID 02/10/15 09/16/19 [Elmiron] HYDROcodone/APAP 7.5-325MG [[place] 1 tab PO HS PRN 07/20/16 09/16/19 7.5-325] Paliperidone IM Pt Own [Invega 117 mg IM Q28D 07/20/16 09/16/19 Sustenna] amantadine HCL [Symmetrel] 100 mg PO BID 11/21/16 09/16/19 Dicyclomine [Bentyl] 20 mg PO QID 07/09/17 09/16/19 Albuterol Sulfate [Proair Hfa] 2 puff INHALATION RT-BID PRN 01/13/18 09/16/19 Butalb/Acetaminophen/Caffeine 1 tab PO Q8H PRN 01/13/18 09/16/19 [Fioricet 50-325-40] Fluticasone Propionate [Flovent 2 puff INHALATION RT-DAILY PRN 01/13/18 09/16/19 Hfa 110 mcg] Gemfibrozil [Lopid] 600 mg PO BID 01/13/18 09/16/19 Ondansetron HCl [Zofran] 8 mg PO TID PRN 01/13/18 09/16/19 tiZANidine HCL [Zanaflex] 4 mg PO Q6H PRN 01/13/18 09/16/19 Gabapentin [Neurontin] 300 mg PO HS 03/11/18 09/16/19 Fentanyl Pain Pump 1 dose INTRATHECA CONTINUOUS 09/16/19 09/16/19 Gabapentin [Neurontin] 600 mg PO TID 09/16/19 09/16/19 Omeprazole [PriLOSEC] 40 mg PO DAILY 09/16/19 09/16/19 cloNIDine HCL [Catapres] 0.1 mg PO HS 09/16/19 09/16/19 lisinopriL [Zestril] 20 mg PO DAILY 09/16/19 09/16/19 rOPINIRole HCL [Requip] 2 mg PO HS 09/16/19 09/16/19 traZODone HCL 200 mg PO HS 09/16/19 09/16/19 Allergies Allergy/AdvReac Type Severity Reaction Status Date / Time azithromycin Allergy Rash/Hives Verified 12/26/19 21:37 [From Zithromax Z-Mehrdad] cimetidine [From Tagamet] Allergy Rash/Hives Verified 12/26/19 21:37 ether [Ether] Allergy Anaphylaxis Verified 12/26/19 21:37 Fish Containing Products Allergy Anaphylaxis Verified 12/26/19 21:37 [Fish] ketorolac tromethamine Allergy Rash/Hives Verified 12/26/19 21:37 [From Toradol] ziprasidone HCl [From Geodon] Allergy Extrapyramidal Verified 12/26/19 21:37 Symptoms fluphenazine HCl AdvReac Extrapyramidal Verified 12/26/19 21:37 [From Prolixin] Symptoms haloperidol [From Haldol] AdvReac Extrapyramidal Verified 12/26/19 21:37 Symptoms Sulfa (Sulfonamide AdvReac Nausea & Verified 12/26/19 21:37 Antibiotics) Vomiting Review of Systems ROS Statement: Those systems with pertinent positive or pertinent negative responses have been documented in the HPI. ROS Other: All systems not noted in ROS Statement are negative. Past Medical History Past Medical History: Asthma, GERD/Reflux, Hyperlipidemia, Musculoskeletal Disorder, Neurologic Disorder, Osteoarthritis (OA), Seizure Disorder Additional Past Medical History / Comment(s): RSD-DERIC FEET, INTERSTITIAL CYSTITIS, BRONCHITIS, HEMORRHOIDS,MIGRAINES, INSOMNIA. VERTIGO, last seizure 4 years ago History of Any Multi-Drug Resistant Organisms: MRSA Date of last positivie culture/infection: 04/20/15 MDRO Source:: Left Axilla Past Surgical History: Adenoidectomy, Back Surgery, Cholecystectomy, Orthopedic Surgery, Tonsillectomy Additional Past Surgical History / Comment(s): bilateral foot surgery d/t rsd, numerous pain clinic procedures, nerve stimulator in back to tx RSD placed in Nov 11 2015, pain pump placement Past Anesthesia/Blood Transfusion Reactions: Previous Problems w/ Anesthesia Additional Past Anesthesia/Blood Transfusion Reaction / Comment(s): Pt recieved blood when she was 2 yrs old after tonsillectomy. WHEN BABY HEART STOPPED TWICE- PT STATED SHE WAS ALLERGIC TO ETHER. Past Psychological History: Anxiety, Bipolar, Depression, PTSD Smoking Status: Never smoker Past Alcohol Use History: None Reported Past Drug Use History: Marijuana - Past Family History Father History Unknown: Yes Family Medical History: Diabetes Mellitus Mother Family Medical History: Cancer, CVA/TIA, Diabetes Mellitus, Myocardial Infa rction ([place]) Additional Family Medical History / Comment(s): Mother has had 5 CVAs, 3 MIs and UTERINE CANCER General Exam Limitations: no limitations General appearance: alert, in no apparent distress, other (This is a well- developed, well-nourished adult female patient in no acute distress. Vital signs upon presentation are temperature 98.7F, pulse 107, respirations 18, blood pressure 134/95, pulse ox 96% on room air.) Respiratory exam: Present: normal lung sounds bilaterally. Absent: respiratory distress, wheezes, rales, rhonchi, stridor Cardiovascular Exam: Present: regular rate, normal rhythm, normal heart sounds. Absent: systolic murmur, diastolic murmur, rubs, gallop, clicks Extremities exam: Present: normal inspection, full ROM, normal capillary refill, other (Skin to the lower extremities is pink, warm, dry. Cap refills less than 3 seconds. Pedal and posttibial pulses are 2+ and equal bilaterally.). Absent: tenderness, pedal edema, joint swelling, calf tenderness Neurological exam: Present: alert, oriented X3, CN II-XII intact Psychiatric exam: Present: normal affect, normal mood Skin exam: Present: warm, dry, intact, normal color. Absent: rash Course Vital Signs 12/26/19 21:34 Temperature 98.7 F Pulse Rate 107 H Respiratory 18 Rate Blood Pressure 134/95 O2 Sat by Pulse 96 Oximetry Medical Decision Making - Medical Decision Making 34-year-old female patient with past medical history significant for restless leg syndrome and complex regional pain syndrome presents to the emergency department today for evaluation of increased pain to her lower extremities as well as increased restlessness. Physical examination was unremarkable. Legs were neurovascularly intact. Patient denied having any new symptoms states she occasionally gets breakthrough pain from her fentanyl pump with bupivacaine. She is evaluated by Dr. Shannon outpatient. She'll be given IM doses of Benadryl and Toradol which she states usually works for her symptoms. She'll be discharged follow up with her primary care physician for recheck in 1-2 days. Return parameters were discussed in detail. She verbalizes understanding and agrees with this plan Disposition Clinical Impression: Restless leg syndrome, Leg pain Disposition: HOME SELF-CARE Condition: Good Instructions (If sedation given, give patient instructions): Restless Legs Syndrome (ED), Leg Pain (ED) Additional Instructions: Follow up with your neurologist for further evaluation as soon as possible. Return to the emergency department immediately for any new, worsening, or concerning symptoms. Is patient prescribed a controlled substance at d/c from ED?: No Referrals: China Doyle MD [Primary Care Provider] - 1-2 days Time of Disposition: 22:08
== END 2019-12-26 22:37 | disposition home or self-care (01) ==
LOC: EC 21:27
DX: G25.81 Restless legs syndrome (principal); M79.605 Pain in left leg; M79.604 Pain in right leg; F41.9 Anxiety disorder, unspecified; F31.9 Bipolar disorder, unspecified; F43.10 Post-traumatic stress disorder, unspecified; J45.909 Unspecified asthma, uncomplicated; K21.9 Gastro-esophageal reflux disease without esophagitis; E78.5 Hyperlipidemia, unspecified; M19.90 Unspecified osteoarthritis, unspecified site; G40.909 Epilepsy, unspecified, not intractable, without status epilepticus; Z79.3 Long term (current) use of hormonal contraceptives; Z79.899 Other long term (current) drug therapy; Z88.1 Allergy status to other antibiotic agents; Z88.2 Allergy status to sulfonamides; Z88.8 Allergy status to other drugs, medicaments and biological substances; Z91.013 Allergy to seafood; Z91.048 Other nonmedicinal substance allergy status
CPT/HCPCS: 99283; 96372 ×2; J1200; J1885

== ENCOUNTER 2020-01-16 17:29 | Emergency (ER) | payer MEDICARE, OTHER ==
[2020-01-16 17:38] VITALS: BP 130/86; PULSE 98; RESP 20; TEMP 98.6
[2020-01-16] MEDS ORDERED: KETOROLAC 15 MG/ML 1 ML VIAL IM STA (17:40)
[2020-01-16] MEDS ORDERED: diphenhydrAMINE 50 MG/ML 1 ML VIAL IM STA (17:41)
--- NOTE | 2020-01-16 18:08 | ED ---
Recheck HPI - General Chief Complaint: Recheck/Abnormal Lab/Rx Stated Complaint: legs burning Time Seen by Provider: 01/16/20 17:40 Source: patient Mode of arrival: ambulatory Limitations: no limitations - History of Present Illness Initial Comments: Patient is a 34-year-old female with history of complex regional Center presenting to the emergency department with a chief complaint of leg pain. Patient reports ongoing for many years after she had bunion surgery. Patient reports she has a pain pump and sees Dr. Johnson for her pain medication. Curly quinteros is requesting Toradol and Benadryl and wants to be discharged. Patient states this is the only medication that helps with the pain. - Related Data Home Medications Medication Instructions Recorded Confirmed Medroxyprogesterone Acetate 150 mg IM Q84D 11/22/13 09/16/19 [Depo-Provera] rOPINIRole HCL [Requip] 1 mg PO QAM 11/22/13 09/16/19 Pentosan Polysulfate Sodium 100 mg PO BID 02/10/15 09/16/19 [Elmiron] HYDROcodone/APAP 7.5-325MG [[place] 1 tab PO HS PRN 07/20/16 09/16/19 7.5-325] Paliperidone IM Pt Own [Invega 117 mg IM Q28D 07/20/16 09/16/19 Sustenna] amantadine HCL [Symmetrel] 100 mg PO BID 11/21/16 09/16/19 Dicyclomine [Bentyl] 20 mg PO QID 07/09/17 09/16/19 Albuterol Sulfate [Proair Hfa] 2 puff INHALATION RT-BID PRN 01/13/18 09/16/19 Butalb/Acetaminophen/Caffeine 1 tab PO Q8H PRN 01/13/18 09/16/19 [Fioricet 50-325-40] Fluticasone Propionate [Flovent 2 puff INHALATION RT-DAILY PRN 01/13/18 09/16/19 Hfa 110 mcg] Gemfibrozil [Lopid] 600 mg PO BID 01/13/18 09/16/19 Ondansetron HCl [Zofran] 8 mg PO TID PRN 01/13/18 09/16/19 tiZANidine HCL [Zanaflex] 4 mg PO Q6H PRN 01/13/18 09/16/19 Gabapentin [Neurontin] 300 mg PO HS 03/11/18 09/16/19 Fentanyl Pain Pump 1 dose INTRATHECA CONTINUOUS 09/16/19 09/16/19 Gabapentin [Neurontin] 600 mg PO TID 09/16/19 09/16/19 Omeprazole [PriLOSEC] 40 mg PO DAILY 09/16/19 09/16/19 cloNIDine HCL [Catapres] 0.1 mg PO HS 09/16/19 09/16/19 lisinopriL [Zestril] 20 mg PO DAILY 09/16/19 09/16/19 rOPINIRole HCL [Requip] 2 mg PO HS 09/16/19 09/16/19 traZODone HCL 200 mg PO HS 09/16/19 09/16/19 Allergies Allergy/AdvReac Type Severity Reaction Status Date / Time azithromycin Allergy Rash/Hives Verified 01/16/20 17:38 [From Zithromax Z-Mehrdad] cimetidine [From Tagamet] Allergy Rash/Hives Verified 01/16/20 17:38 ether [Ether] Allergy Anaphylaxis Verified 01/16/20 17:38 Fish Containing Products Allergy Anaphylaxis Verified 01/16/20 17:38 [Fish] ketorolac tromethamine Allergy Rash/Hives Verified 01/16/20 17:38 [From Toradol] ziprasidone HCl [From Geodon] Allergy Extrapyramidal Verified 01/16/20 17:38 Symptoms fluphenazine HCl AdvReac Extrapyramidal Verified 01/16/20 17:38 [From Prolixin] Symptoms haloperidol [From Haldol] AdvReac Extrapyramidal Verified 01/16/20 17:38 Symptoms Sulfa (Sulfonamide AdvReac Nausea & Verified 01/16/20 17:38 Antibiotics) Vomiting Review of Systems ROS Statement: Those systems with pertinent positive or pertinent negative responses have been documented in the HPI. ROS Other: All systems not noted in ROS Statement are negative. Past Medical History Past Medical History: Asthma, GERD/Reflux, Hyperlipidemia, Musculoskeletal Disorder, Neurologic Disorder, Osteoarthritis (OA), Seizure Disorder Additional Past Medical History / Comment(s): RSD-DERIC FEET, INTERSTITIAL CYSTITIS, BRONCHITIS, HEMORRHOIDS,MIGRAINES, INSOMNIA. VERTIGO, last seizure 4 years ago History of Any Multi-Drug Resistant Organisms: MRSA Date of last positivie culture/infection: 04/20/15 MDRO Source:: Left Axilla Past Surgical History: Adenoidectomy, Back Surgery, Cholecystectomy, Orthopedic Surgery, Tonsillectomy Additional Past Surgical History / Comment(s): bilateral foot surgery d/t rsd, numerous pain clinic procedures, nerve stimulator in back to tx RSD placed in Nov 11 2015, pain pump placement Past Anesthesia/Blood Transfusion Reactions: Previous Problems w/ Anesthesia Additional Past Anesthesia/Blood Transfusion Reaction / Comment(s): Pt recieved blood when she was 2 yrs old after tonsillectomy. WHEN BABY HEART STOPPED TWICE- PT STATED SHE WAS ALLERGIC TO ETHER. Past Psychological History: Anxiety, Bipolar, Depression, PTSD Smoking Status: Never smoker Past Alcohol Use History: None Reported Past Drug Use History: Marijuana - Past Family History Father History Unknown: Yes Family Medical History: Diabetes Mellitus Mother Family Medical History: Cancer, CVA/TIA, Diabetes Mellitus, Myocardial Infarctio n (DC) Additional Family Medical History / Comment(s): Mother has had 5 CVAs, 3 MIs and UTERINE CANCER General Exam Limitations: no limitations General appearance: alert, in no apparent distress Head exam: Present: atraumatic, normocephalic Eye exam: Present: normal appearance, PERRL, EOMI Pupils: Present: normal accommodation ENT exam: Present: normal exam, normal oropharynx, mucous membranes moist, TM's normal bilaterally, normal external ear exam Neck exam: Present: normal inspection, full ROM. Absent: tenderness Respiratory exam: Present: normal lung sounds bilaterally. Absent: respiratory distress, wheezes Cardiovascular Exam: Present: regular rate, normal rhythm, normal heart sounds Extremities exam: Present: normal inspection, full ROM, normal capillary refill, other (+2 dorsalis pedis and posterior tibials bilaterally.). Absent: tenderness Back exam: Present: normal inspection, full ROM. Absent: tenderness, CVA tenderness (R), CVA tenderness (L) Neurological exam: Present: alert, oriented X3, CN II-XII intact, normal gait Psychiatric exam: Present: normal affect, normal mood Skin exam: Present: warm, dry, intact, normal color Course Vital Signs 01/16/20 17:35 Temperature 98.6 F Pulse Rate 98 Respiratory 20 Rate Blood Pressure 130/86 O2 Sat by Pulse 99 Oximetry Medical Decision Making - Medical Decision Making Patient 34-year-old female presenting to the emergency department with a chief complaint of leg pain. Patient is requesting Toradol and Benadryl. Patient was given a medication. Patient reports improvement of symptoms and wants to go home. Return parameters discussed. Case discussed with physician. Disposition Clinical Impression: Leg pain Disposition: HOME SELF-CARE Condition: Stable Instructions (If sedation given, give patient instructions): Leg Pain (ED) Additional Instructions: Follow-up with her primary care physician. Return to emergency department if symptoms worsen. Is patient prescribed a controlled substance at d/c from ED?: No Referrals: China Doyle MD [Primary Care Provider] - 1-2 days Time of Disposition: 18:09
== END 2020-01-16 18:25 | disposition home or self-care (01) ==
LOC: EC 17:29
DX: M79.606 Pain in leg, unspecified (principal); F41.9 Anxiety disorder, unspecified; F31.9 Bipolar disorder, unspecified; F43.10 Post-traumatic stress disorder, unspecified; J45.909 Unspecified asthma, uncomplicated; K21.9 Gastro-esophageal reflux disease without esophagitis; E78.5 Hyperlipidemia, unspecified; G40.909 Epilepsy, unspecified, not intractable, without status epilepticus; Z79.899 Other long term (current) drug therapy; Z88.1 Allergy status to other antibiotic agents; Z88.2 Allergy status to sulfonamides; Z88.8 Allergy status to other drugs, medicaments and biological substances; Z88.6 Allergy status to analgesic agent; Z91.013 Allergy to seafood; Z91.048 Other nonmedicinal substance allergy status; Z86.14 Personal history of Methicillin resistant Staphylococcus aureus infection
CPT/HCPCS: 99283; J1200; J1885

== ENCOUNTER 2020-02-08 18:23 | Emergency (ER) | payer MEDICARE, OTHER ==
[2020-02-08] MEDS ORDERED: KETOROLAC 15 MG/ML 1 ML VIAL IM STA (19:21)
[2020-02-08] MEDS ORDERED: diphenhydrAMINE 50 MG/ML 1 ML VIAL IM STA (19:21)
--- NOTE | 2020-02-08 19:23 | ED ---
General Adult HPI - General Chief complaint: Extremity Problem,Nontraumatic Stated complaint: leg pain Time Seen by Provider: 02/08/20 19:04 Source: patient, RN notes reviewed Mode of arrival: wheelchair Limitations: no limitations - History of Present Illness Initial comments: 34-year-old female presents to the emergency room for a chief complaint of c hronic leg pain. Patient states she has complex regional pain syndrome in her pain is picking backup. Patient reports that she is having burning in the legs as well. It she states she has a pain pump and she does not like to mix opioids with this. Therefore she is requesting Toradol and Benadryl.Patient has no other complaints at this time including shortness of breath, chest pain, abdominal pain, nausea or vomiting, headache, or visual changes. - Related Data Home Medications Medication Instructions Recorded Confirmed Medroxyprogesterone Acetate 150 mg IM Q84D 11/22/13 09/16/19 [Depo-Provera] rOPINIRole HCL [Requip] 1 mg PO QAM 11/22/13 09/16/19 Pentosan Polysulfate Sodium 100 mg PO BID 02/10/15 09/16/19 [Elmiron] HYDROcodone/APAP 7.5-325MG [[place] 1 tab PO HS PRN 07/20/16 09/16/19 7.5-325] Paliperidone IM Pt Own [Invega 117 mg IM Q28D 07/20/16 09/16/19 Sustenna] amantadine HCL [Symmetrel] 100 mg PO BID 11/21/16 09/16/19 Dicyclomine [Bentyl] 20 mg PO QID 07/09/17 09/16/19 Albuterol Sulfate [Proair Hfa] 2 puff INHALATION RT-BID PRN 01/13/18 09/16/19 Butalb/Acetaminophen/Caffeine 1 tab PO Q8H PRN 01/13/18 09/16/19 [Fioricet 50-325-40] Fluticasone Propionate [Flovent 2 puff INHALATION RT-DAILY PRN 01/13/18 09/16/19 Hfa 110 mcg] Gemfibrozil [Lopid] 600 mg PO BID 01/13/18 09/16/19 Ondansetron HCl [Zofran] 8 mg PO TID PRN 01/13/18 09/16/19 tiZANidine HCL [Zanaflex] 4 mg PO Q6H PRN 01/13/18 09/16/19 Gabapentin [Neurontin] 300 mg PO HS 03/11/18 09/16/19 Fentanyl Pain Pump 1 dose INTRATHECA CONTINUOUS 09/16/19 09/16/19 Gabapentin [Neurontin] 600 mg PO TID 09/16/19 09/16/19 Omeprazole [PriLOSEC] 40 mg PO DAILY 09/16/19 09/16/19 cloNIDine HCL [Catapres] 0.1 mg PO HS 09/16/19 09/16/19 lisinopriL [Zestril] 20 mg PO DAILY 09/16/19 09/16/19 rOPINIRole HCL [Requip] 2 mg PO HS 09/16/19 09/16/19 traZODone HCL 200 mg PO HS 09/16/19 09/16/19 Allergies Allergy/AdvReac Type Severity Reaction Status Date / Time azithromycin Allergy Rash/Hives Verified 02/08/20 18:41 [From Zithromax Z-Mehrdad] cimetidine [From Tagamet] Allergy Rash/Hives Verified 02/08/20 18:41 ether [Ether] Allergy Anaphylaxis Verified 02/08/20 18:41 Fish Containing Products Allergy Anaphylaxis Verified 02/08/20 18:41 [Fish] ketorolac tromethamine Allergy Rash/Hives Verified 02/08/20 18:41 [From Toradol] ziprasidone HCl [From Geodon] Allergy Extrapyramidal Verified 02/08/20 18:41 Symptoms fluphenazine HCl AdvReac Extrapyramidal Verified 02/08/20 18:41 [From Prolixin] Symptoms haloperidol [From Haldol] AdvReac Extrapyramidal Verified 02/08/20 18:41 Symptoms Sulfa (Sulfonamide AdvReac Nausea & Verified 02/08/20 18:41 Antibiotics) Vomiting Review of Systems ROS Statement: Those systems with pertinent positive or pertinent negative responses have been documented in the HPI. ROS Other: All systems not noted in ROS Statement are negative. Past Medical History Past Medical History: Asthma, GERD/Reflux, Hyperlipidemia, Musculoskeletal Disorder, Neurologic Disorder, Osteoarthritis (OA), Seizure Disorder Additional Past Medical History / Comment(s): RSD-DERIC FEET, INTERSTITIAL CYSTITIS, BRONCHITIS, HEMORRHOIDS,MIGRAINES, INSOMNIA. VERTIGO, last seizure 4 years ago History of Any Multi-Drug Resistant Organisms: MRSA Date of last positivie culture/infection: 04/20/15 MDRO Source:: Left Axilla Past Surgical History: Adenoidectomy, Back Surgery, Cholecystectomy, Orthopedic Surgery, Tonsillectomy Additional Past Surgical History / Comment(s): bilateral foot surgery d/t rsd, numerous pain clinic procedures, nerve stimulator in back to tx RSD placed in Nov 11 2015, pain pump placement Past Anesthesia/Blood Transfusion Reactions: Previous Problems w/ Anesthesia Additional Past Anesthesia/Blood Transfusion Reaction / Comment(s): Pt recieved blood when she was 2 yrs old after tonsillectomy. WHEN BABY HEART STOPPED TWICE- PT STATED SHE WAS ALLERGIC TO ETHER. Past Psychological History: Anxiety, Bipolar, Depression, PTSD Smoking Status: Never smoker Past Alcohol Use History: None Reported Past Drug Use History: Marijuana - Past Family History Father History Unknown: Yes Family Medical History: Diabetes Mellitus Mother Family Medical History: Cancer, CVA/TIA, Diabetes Mellitus, Myocardial Infarction ([place]) Additional Family Medical History / Comment(s): Mother has had 5 CVAs, 3 MIs and UTERINE CANCER General Exam Limitations: no limitations General appearance: alert, in no apparent distress Head exam: Present: atraumatic, normocephalic, normal inspection Eye exam: Present: normal appearance, PERRL, EOMI. Absent: scleral icterus, conjunctival injection, periorbital swelling ENT exam: Present: normal exam, mucous membranes moist Neck exam: Present: normal inspection, full ROM. Absent: tenderness, meningismus, lymphadenopathy Respiratory exam: Present: normal lung sounds bilaterally. Absent: respiratory distress, wheezes, rales, rhonchi, stridor Cardiovascular Exam: Present: regular rate, normal rhythm, normal heart sounds. Absent: systolic murmur, diastolic murmur, rubs, gallop, clicks GI/Abdominal exam: Present: soft, normal bowel sounds. Absent: distended, tenderness, guarding, rebound, rigid Extremities exam: Present: full ROM (Full range of motion in lower extremities bilaterally. Strength 5 out of 5.), normal capillary refill (Capillary refill less than 2 seconds in the lower extremities bilaterally.) Course Vital Signs 02/08/20 18:38 Temperature 99.1 F Pulse Rate 98 Respiratory 18 Rate Blood Pressure 144/84 O2 Sat by Pulse 98 Oximetry Medical Decision Making - Medical Decision Making Patient reports she is having a flare of complex regional pain syndrome. Patient has no neuro deficits. Neurovascular status intact. Patient requesting Toradol and Benadryl. Patient will be discharged home to follow-up with her doctor. Disposition Clinical Impression: Chronic pain Disposition: HOME SELF-CARE Condition: Good Instructions (If sedation given, give patient instructions): Chronic Pain (ED) Additional Instructions: Please follow-up with your doctor in one to two days. Please return to the emergency room for any worsening symptoms. Is patient prescribed a controlled substance at d/c from ED?: No Referrals: China Doyle MD [Primary Care Provider] - 1-2 days Time of Disposition: 19:22
[2020-02-08 19:59] VITALS: BP 135/81; PULSE 85; RESP 19; TEMP 98.4
== END 2020-02-08 19:54 | disposition home or self-care (01) ==
LOC: EC 18:23
DX: G90.523 Complex regional pain syndrome I of lower limb, bilateral (principal); F41.9 Anxiety disorder, unspecified; F31.9 Bipolar disorder, unspecified; F43.10 Post-traumatic stress disorder, unspecified; J45.909 Unspecified asthma, uncomplicated; K21.9 Gastro-esophageal reflux disease without esophagitis; E78.5 Hyperlipidemia, unspecified; M19.90 Unspecified osteoarthritis, unspecified site; G40.909 Epilepsy, unspecified, not intractable, without status epilepticus; Z79.899 Other long term (current) drug therapy; Z86.14 Personal history of Methicillin resistant Staphylococcus aureus infection; Z88.1 Allergy status to other antibiotic agents; Z88.2 Allergy status to sulfonamides; Z88.6 Allergy status to analgesic agent; Z88.8 Allergy status to other drugs, medicaments and biological substances; Z91.013 Allergy to seafood; Z86.69 Personal history of other diseases of the nervous system and sense organs
CPT/HCPCS: 99283; 96372 ×2; J1200; J1885

== ENCOUNTER 2020-02-24 16:55 | Emergency (ER) | payer MEDICARE, OTHER ==
[2020-02-24 17:07] VITALS: TEMP 98.8
[2020-02-24] MEDS ORDERED: HYDROmorphone 1 MG/ML 1 ML SYRINGE IM STA (18:54)
--- NOTE | 2020-02-24 18:55 | ED ---
Extremity Problem HPI - General Chief complaint: Extremity Problem,Nontraumatic Stated complaint: leg pain Time Seen by Provider: 02/24/20 18:13 Source: patient Mode of arrival: ambulatory Limitations: no limitations - History of Present Illness Initial comments: 34-year-old female patient with past medical history significant for chronic pain syndromes, chronic regional pain syndrome, and sciatica with implanted pain pump and stimulator, on multiple medications at home for pain presents to the emergency department today for evaluation of what she is calling sciatic back pain. Patient states she has pain starting on the right low back that radiates down her right buttock and into the right posterior thigh to about the level. Denies any numbness or tingling to the lower extremities. States this started a few days ago after doing agility training with her dog. Denies any known injury. States she's had sciatica multiple times in the past and her symptoms are similar to that. She denies any fever or chills. Denies saddle anesthesia or loss of bowel or bladder control. She is requesting a dosage of medication here, declines prescriptions. He did have injections of Toradol at her neurologist's office today. - Related Data Home Medications Medication Instructions Recorded Confirmed Medroxyprogesterone Acetate 150 mg IM Q84D 11/22/13 09/16/19 [Depo-Provera] rOPINIRole HCL [Requip] 1 mg PO QAM 11/22/13 09/16/19 Pentosan Polysulfate Sodium 100 mg PO BID 02/10/15 09/16/19 [Elmiron] HYDROcodone/APAP 7.5-325MG [[place] 1 tab PO HS PRN 07/20/16 09/16/19 7.5-325] Paliperidone IM Pt Own [Invega 117 mg IM Q28D 07/20/16 09/16/19 Sustenna] amantadine HCL [Symmetrel] 100 mg PO BID 11/21/16 09/16/19 Dicyclomine [Bentyl] 20 mg PO QID 07/09/17 09/16/19 Albuterol Sulfate [Proair Hfa] 2 puff INHALATION RT-BID PRN 01/13/18 09/16/19 Butalb/Acetaminophen/Caffeine 1 tab PO Q8H PRN 01/13/18 09/16/19 [Fioricet 50-325-40] Fluticasone Propionate [Flovent 2 puff INHALATION RT-DAILY PRN 01/13/18 09/16/19 Hfa 110 mcg] Gemfibrozil [Lopid] 600 mg PO BID 01/13/18 09/16/19 ondansetron HCL [Zofran] 8 mg PO TID PRN 01/13/18 09/16/19 tiZANidine HCL [Zanaflex] 4 mg PO Q6H PRN 01/13/18 09/16/19 Gabapentin [Neurontin] 300 mg PO HS 03/11/18 09/16/19 Fentanyl Pain Pump 1 dose INTRATHECA CONTINUOUS 09/16/19 09/16/19 Gabapentin [Neurontin] 600 mg PO TID 09/16/19 09/16/19 Omeprazole [PriLOSEC] 40 mg PO DAILY 09/16/19 09/16/19 cloNIDine HCL [Catapres] 0.1 mg PO HS 09/16/19 09/16/19 lisinopriL [Zestril] 20 mg PO DAILY 09/16/19 09/16/19 rOPINIRole HCL [Requip] 2 mg PO HS 09/16/19 09/16/19 traZODone HCL 200 mg PO HS 09/16/19 09/16/19 Allergies Allergy/AdvReac Type Severity Reaction Status Date / Time azithromycin Allergy Rash/Hives Verified 02/08/20 18:41 [From Zithromax Z-Mehrdad] cimetidine [From Tagamet] Allergy Rash/Hives Verified 02/08/20 18:41 ether [Ether] Allergy Anaphylaxis Verified 02/08/20 18:41 Fish Containing Products Allergy Anaphylaxis Verified 02/08/20 18:41 [Fish] ketorolac tromethamine Allergy Rash/Hives Verified 02/08/20 18:41 [From Toradol] ziprasidone HCl [From Geodon] Allergy Extrapyramidal Verified 02/08/20 18:41 Symptoms fluphenazine HCl AdvReac Extrapyramidal Verified 02/08/20 18:41 [From Prolixin] Symptoms haloperidol [From Haldol] AdvReac Extrapyramidal Verified 02/08/20 18:41 Symptoms Sulfa (Sulfonamide AdvReac Nausea & Verified 02/08/20 18:41 Antibiotics) Vomiting Review of Systems ROS Statement: Those systems with pertinent positive or pertinent negative responses have been documented in the HPI. ROS Other: All systems not noted in ROS Statement are negative. Past Medical History Past Medical History: Asthma, GERD/Reflux, Hyperlipidemia, Musculoskeletal Disorder, Neurologic Disorder, Osteoarthritis (OA), Seizure Disorder Additional Past Medical History / Comment(s): RSD-DERIC FEET, INTERSTITIAL CYSTITIS, BRONCHITIS, HEMORRHOIDS,MIGRAINES, INSOMNIA. VERTIGO, last seizure 4 years ago History of Any Multi-Drug Resistant Organisms: MRSA Date of last positivie culture/infection: 04/20/15 MDRO Source:: Left Axilla Past Surgical History: Adenoidectomy, Back Surgery, Cholecystectomy, Orthopedic Surgery, Tonsillectomy Additional Past Surgical History / Comment(s): bilateral foot surgery d/t rsd, numerous pain clinic procedures, nerve stimulator in back to tx RSD placed in Nov 11 2015, pain pump placement Past Anesthesia/Blood Transfusion Reactions: Previous Problems w/ Anesthesia Additional Past Anesthesia/Blood Transfusion Reaction / Comment(s): Pt recieved blood when she was 2 yrs old after tonsillectomy. WHEN BABY HEART STOPPED TWICE- PT STATED SHE WAS ALLERGIC TO ETHER. Past Psychological History: Anxiety, Bipolar, Depression, PTSD Smoking Status: Never smoker Past Alcohol Use History: None Reported Past Drug Use History: Marijuana - Past Family History Father History Unknown: Yes Family Medical History: Diabetes Mellitus Mother Family Medical History: Cancer, CVA/TIA, Diabetes Mellitus, Myocardial Infarction ([place]) Additional Family Medical History / Comment(s): Mother has had 5 CVAs, 3 MIs and UTERINE CANCER General Exam Limitations: no limitations General appearance: alert, in no apparent distress, other (This is a well- developed, well-nourished adult female patient in no acute distress. Vital signs upon presentation are temperature 98.8F, pulse 120, respirations 18, bloo d pressure 150/104, pulse ox 98% on room air.) ENT exam: Present: normal exam, normal oropharynx, mucous membranes moist Respiratory exam: Present: normal lung sounds bilaterally. Absent: respiratory distress, wheezes, rales, rhonchi, stridor Cardiovascular Exam: Present: regular rate, normal rhythm, normal heart sounds. Absent: systolic murmur, diastolic murmur, rubs, gallop, clicks GI/Abdominal exam: Present: soft, normal bowel sounds. Absent: distended, tenderness, guarding, rebound, rigid Extremities exam: Present: normal inspection, full ROM, normal capillary refill, other (Skin to the lower extremities is pink, warm, dry. Cap refills less than 3 seconds. Pedal and posttibial pulses are 2+ and equal bilaterally. States). Absent: tenderness, pedal edema, joint swelling, calf tenderness Neurological exam: Present: alert, oriented X3, CN II-XII intact, other (Strength in lower extremities is 5/5) Psychiatric exam: Present: normal affect, normal mood Skin exam: Present: warm, dry, intact, normal color. Absent: rash Course Vital Signs 02/24/20 02/24/20 17:03 19:21 Temperature 98.8 F Pulse Rate 120 H 90 Respiratory 18 16 Rate Blood Pressure 150/104 154/84 O2 Sat by Pulse 98 95 Oximetry Medical Decision Making - Medical Decision Making 34-year-old female patient well known to our department with multiple chronic pain syndromes presents to the emergency department today for evaluation of right leg pain area patient states she's had sciatica in the past and this feels quite similar. The radiating pain from the right buttock down to the posterior thigh. She is neurologically intact with no focal deficits. No concerning symptoms for cauda equina. She'll be given 1 dose of IM pain medication here and discharged home to follow-up with her primary care physician and neurologist in 1-2 days. Return parameters were discussed in detail. She verbalizes understanding and agrees with this plan. Disposition Clinical Impression: Leg pain, Sciatica Disposition: HOME SELF-CARE Condition: Good Instructions (If sedation given, give patient instructions): Sciatica (ED) Additional Instructions: Follow-up with her neurologist for further evaluation as soon as possible. Follow-up through primary care physician for recheck in 1-2 days. Return to the emergency department immediately for any new, worsening, or concerning symptoms. Is patient prescribed a controlled substance at d/c from ED?: No Referrals: China Doyle MD [Primary Care Provider] - 1-2 days Casper Shannon MD [Medical Doctor] - 1-2 days Time of Disposition: 18:55
[2020-02-24 19:22] VITALS: BP 154/84; PULSE 90; RESP 16
== END 2020-02-24 19:23 | disposition home or self-care (01) ==
LOC: EC 16:55
DX: M54.31 Sciatica, right side (principal); M79.604 Pain in right leg; J45.909 Unspecified asthma, uncomplicated; K21.9 Gastro-esophageal reflux disease without esophagitis; E78.5 Hyperlipidemia, unspecified; G40.909 Epilepsy, unspecified, not intractable, without status epilepticus; F41.9 Anxiety disorder, unspecified; F31.9 Bipolar disorder, unspecified; Z79.51 Long term (current) use of inhaled steroids; Z79.899 Other long term (current) drug therapy; Z88.1 Allergy status to other antibiotic agents; Z91.048 Other nonmedicinal substance allergy status; Z91.013 Allergy to seafood; Z88.5 Allergy status to narcotic agent; Z88.8 Allergy status to other drugs, medicaments and biological substances; Z88.2 Allergy status to sulfonamides
CPT/HCPCS: 99283 ×2; 96372 ×2; J1170

== ENCOUNTER 2020-03-28 17:23 | Emergency (ER) | payer MEDICARE, OTHER ==
[2020-03-28 17:28] VITALS: RESP 18
--- NOTE | 2020-03-28 18:15 | XR ---
EXAMINATION TYPE: XR femur RT DATE OF EXAM: 03/28/2020 COMPARISON: Right hip 01/07/2017 HISTORY: Pain TECHNIQUE: 4 views FINDINGS: Hip joint is intact. Knee joint is intact. I see no fracture nor dislocation. Soft tissues appear normal. IMPRESSION: Normal right femur exam.
[2020-03-28] MEDS ORDERED: HYDROmorphone 1 MG/ML 1 ML SYRINGE IM STA (18:17)
--- NOTE | 2020-03-28 18:17 | ED ---
General Adult HPI - General Chief complaint: Extremity Injury, Lower Stated complaint: Fall03/24/20/Right leg injury Time Seen by Provider: 03/28/20 17:29 Source: patient, RN notes reviewed Mode of arrival: wheelchair Limitations: no limitations - History of Present Illness Initial comments: 34-year-old female presents emergency from with chief complaint of trip and fall. Patient fell on [place] [address]. Patient states that she's had worsening pain, bruising to her right leg. She has bruising by her right knee, right hip. Patient states that her seen bit but states that she is able to pain plate. No change in paresthesias. Patient has chronic pain has pain pump and is on oral pain medication. Patient denies any bowel, bladder incontinence or retention of 76. - Related Data Home Medications Medication Instructions Recorded Confirmed Medroxyprogesterone Acetate 150 mg IM Q84D 11/22/13 09/16/19 [Depo-Provera] rOPINIRole HCL [Requip] 1 mg PO QAM 11/22/13 09/16/19 Pentosan Polysulfate Sodium 100 mg PO BID 02/10/15 09/16/19 [Elmiron] HYDROcodone/APAP 7.5-325MG [[place] 1 tab PO HS PRN 07/20/16 09/16/19 7.5-325] Paliperidone IM Pt Own [Invega 117 mg IM Q28D 07/20/16 09/16/19 Sustenna] amantadine HCL [Symmetrel] 100 mg PO BID 11/21/16 09/16/19 Dicyclomine [Bentyl] 20 mg PO QID 07/09/17 09/16/19 Albuterol Sulfate [Proair Hfa] 2 puff INHALATION RT-BID PRN 01/13/18 09/16/19 Butalb/Acetaminophen/Caffeine 1 tab PO Q8H PRN 01/13/18 09/16/19 [Fioricet 50-325-40] Fluticasone Propionate [Flovent 2 puff INHALATION RT-DAILY PRN 01/13/18 09/16/19 Hfa 110 mcg] Gemfibrozil [Lopid] 600 mg PO BID 01/13/18 09/16/19 ondansetron HCL [Zofran] 8 mg PO TID PRN 01/13/18 09/16/19 tiZANidine HCL [Zanaflex] 4 mg PO Q6H PRN 01/13/18 09/16/19 Gabapentin [Neurontin] 300 mg PO HS 03/11/18 09/16/19 Fentanyl Pain Pump 1 dose INTRATHECA CONTINUOUS 09/16/19 09/16/19 Gabapentin [Neurontin] 600 mg PO TID 09/16/19 09/16/19 Omeprazole [PriLOSEC] 40 mg PO DAILY 09/16/19 09/16/19 cloNIDine HCL [Catapres] 0.1 mg PO HS 09/16/19 09/16/19 lisinopriL [Zestril] 20 mg PO DAILY 09/16/19 09/16/19 rOPINIRole HCL [Requip] 2 mg PO HS 09/16/19 09/16/19 traZODone HCL 200 mg PO HS 09/16/19 09/16/19 Allergies Allergy/AdvReac Type Severity Reaction Status Date / Time azithromycin Allergy Rash/Hives Verified 03/28/20 17:28 [From Zithromax Z-Mehrdad] cimetidine [From Tagamet] Allergy Rash/Hives Verified 03/28/20 17:28 ether [Ether] Allergy Anaphylaxis Verified 03/28/20 17:28 Fish Containing Products Allergy Anaphylaxis Verified 03/28/20 17:28 [Fish] ketorolac tromethamine Allergy Rash/Hives Verified 03/28/20 17:28 [From Toradol] ziprasidone HCl [From Geodon] Allergy Extrapyramidal Verified 03/28/20 17:28 Symptoms fluphenazine HCl AdvReac Extrapyramidal Verified 03/28/20 17:28 [From Prolixin] Symptoms haloperidol [From Haldol] AdvReac Extrapyramidal Verified 03/28/20 17:28 Symptoms Sulfa (Sulfonamide AdvReac Nausea & Verified 03/28/20 17:28 Antibiotics) Vomiting Review of Systems ROS Statement: Those systems with pertinent positive or pertinent negative responses have been documented in the HPI. ROS Other: All systems not noted in ROS Statement are negative. Past Medical History Past Medical History: Asthma, GERD/Reflux, Hyperlipidemia, Musculoskeletal Di sorder, Neurologic Disorder, Osteoarthritis (OA), Seizure Disorder Additional Past Medical History / Comment(s): RSD-DERIC FEET, INTERSTITIAL CYSTITIS, BRONCHITIS, HEMORRHOIDS,MIGRAINES, INSOMNIA. VERTIGO, last seizure 4 years ago History of Any Multi-Drug Resistant Organisms: MRSA Date of last positivie culture/infection: 04/20/15 MDRO Source:: Left Axilla Past Surgical History: Adenoidectomy, Back Surgery, Cholecystectomy, Orthopedic Surgery, Tonsillectomy Additional Past Surgical History / Comment(s): bilateral foot surgery d/t rsd, numerous pain clinic procedures, nerve stimulator in back to tx RSD placed in Nov 11 2015, pain pump placement Past Anesthesia/Blood Transfusion Reactions: Previous Problems w/ Anesthesia Additional Past Anesthesia/Blood Transfusion Reaction / Comment(s): Pt recieved blood when she was 2 yrs old after tonsillectomy. WHEN BABY HEART STOPPED TWICE- PT STATED SHE WAS ALLERGIC TO ETHER. Past Psychological History: Anxiety, Bipolar, Depression, PTSD Smoking Status: Never smoker Past Alcohol Use History: None Reported Past Drug Use History: Marijuana - Past Family History Father History Unknown: Yes Family Medical History: Diabetes Mellitus Mother Family Medical History: Cancer, CVA/TIA, Diabetes Mellitus, Myocardial Infarction ([place]) Additional Family Medical History / Comment(s): Mother has had 5 CVAs, 3 MIs and UTERINE CANCER General Exam Limitations: no limitations Course Vital Signs 03/28/20 17:24 Temperature 98.6 F Pulse Rate 92 Respiratory 18 Rate Blood Pressure 147/101 O2 Sat by Pulse 97 Oximetry Medical Decision Making - Medical Decision Making X-ray reviewed no acute changes. Patient has a right leg hematoma. Patient has chronic pain syndrome. Patient discharged stable condition. Disposition Clinical Impression: Contusion of right hip, Hematoma of right lower leg Disposition: HOME SELF-CARE Condition: Stable Instructions (If sedation given, give patient instructions): Contusion in Adults (ED) Additional Instructions: Please return to the Emergency Department if symptoms worsen or any other concerns. Is patient prescribed a controlled substance at d/c from ED?: No Referrals: China Doyle MD [Primary Care Provider] - 1-2 days Time of Disposition: 18:17
[2020-03-28 18:34] VITALS: BP 132/84; PULSE 89; TEMP 97.8
== END 2020-03-28 18:34 | disposition home or self-care (01) ==
LOC: EC 17:23
DX: S80.11XA Contusion of right lower leg, initial encounter (principal); S70.01XA Contusion of right hip, initial encounter; F41.9 Anxiety disorder, unspecified; F31.9 Bipolar disorder, unspecified; F43.10 Post-traumatic stress disorder, unspecified; J45.909 Unspecified asthma, uncomplicated; K21.9 Gastro-esophageal reflux disease without esophagitis; E78.5 Hyperlipidemia, unspecified; G40.909 Epilepsy, unspecified, not intractable, without status epilepticus; Z79.899 Other long term (current) drug therapy; Z88.1 Allergy status to other antibiotic agents; Z88.2 Allergy status to sulfonamides; Z88.6 Allergy status to analgesic agent; Z88.8 Allergy status to other drugs, medicaments and biological substances; Z91.048 Other nonmedicinal substance allergy status; Z86.14 Personal history of Methicillin resistant Staphylococcus aureus infection; Z90.89 Acquired absence of other organs; Z90.49 Acquired absence of other specified parts of digestive tract; Z86.69 Personal history of other diseases of the nervous system and sense organs; W01.0XXA Fall on same level from slipping, tripping and stumbling without subsequent striking against object, initial encounter
CPT/HCPCS: 99283 ×2; 96372 ×2; 73552; J1170

== ENCOUNTER 2020-04-13 18:07 | Emergency (ER) | payer MEDICARE, OTHER ==
[2020-04-13] MEDS ORDERED: diphenhydrAMINE 50 MG/ML 1 ML VIAL IM STA (19:23)
[2020-04-13] MEDS ORDERED: KETOROLAC 15 MG/ML 1 ML VIAL IM STA (19:23)
--- NOTE | 2020-04-13 19:34 | ED ---
General Adult HPI - General Chief complaint: Extremity Injury, Lower Stated complaint: leg swelling Time Seen by Provider: 04/13/20 19:01 Source: patient, RN notes reviewed Mode of arrival: ambulatory Limitations: no limitations - History of Present Illness Initial comments: 34-year-old female with a has medical history of complex regional pain syndrome presents for chronic leg pain. Patient states this has been ongoing for years. Patient has a fentanyl pump for this. Patient states that if she needs Toradol for this. Patient reports she requires Benadryl with the Toradol patient denies any new injuries. Denies any new pain. Denies fevers or chills.Patient has no other complaints at this time including shortness of breath, chest pain, abdo dora pain, nausea or vomiting, headache, or visual changes. - Related Data Home Medications Medication Instructions Recorded Confirmed Medroxyprogesterone Acetate 150 mg IM Q84D 11/22/13 09/16/19 [Depo-Provera] rOPINIRole HCL [Requip] 1 mg PO QAM 11/22/13 09/16/19 Pentosan Polysulfate Sodium 100 mg PO BID 02/10/15 09/16/19 [Elmiron] HYDROcodone/APAP 7.5-325MG [[place] 1 tab PO HS PRN 07/20/16 09/16/19 7.5-325] Paliperidone IM Pt Own [Invega 117 mg IM Q28D 07/20/16 09/16/19 Sustenna] amantadine HCL [Symmetrel] 100 mg PO BID 11/21/16 09/16/19 Albuterol Sulfate [Proair Hfa] 2 puff INHALATION RT-BID PRN 01/13/18 09/16/19 Butalb/Acetaminophen/Caffeine 1 tab PO Q8H PRN 01/13/18 09/16/19 [Fioricet 50-325-40] Fluticasone Propionate [Flovent 2 puff INHALATION RT-DAILY PRN 01/13/18 09/16/19 Hfa 110 mcg] Gemfibrozil [Lopid] 600 mg PO BID 01/13/18 09/16/19 ondansetron HCL [Zofran] 8 mg PO TID PRN 01/13/18 09/16/19 tiZANidine HCL [Zanaflex] 4 mg PO Q6H PRN 01/13/18 09/16/19 Gabapentin [Neurontin] 300 mg PO HS 03/11/18 09/16/19 Fentanyl Pain Pump 1 dose INTRATHECA CONTINUOUS 09/16/19 09/16/19 Gabapentin [Neurontin] 600 mg PO TID 09/16/19 09/16/19 Omeprazole [PriLOSEC] 40 mg PO DAILY 09/16/19 09/16/19 rOPINIRole HCL [Requip] 2 mg PO HS 09/16/19 09/16/19 traZODone HCL 200 mg PO HS 09/16/19 09/16/19 hydrOXYzine pamoate [hydrOXYzine 25 mg PO BID 04/13/20 04/13/20 PAMOATE] Allergies Allergy/AdvReac Type Severity Reaction Status Date / Time azithromycin Allergy Rash/Hives Verified 04/13/20 19:31 [From Zithromax Z-Mehrdad] cimetidine [From Tagamet] Allergy Rash/Hives Verified 04/13/20 19:31 ether [Ether] Allergy Anaphylaxis Verified 04/13/20 19:31 Fish Containing Products Allergy Anaphylaxis Verified 04/13/20 19:31 [Fish] ketorolac tromethamine Allergy Rash/Hives Verified 04/13/20 19:31 [From Toradol] ziprasidone HCl [From Geodon] Allergy Extrapyramidal Verified 04/13/20 19:31 Symptoms fluphenazine HCl AdvReac Extrapyramidal Verified 04/13/20 19:31 [From Prolixin] Symptoms haloperidol [From Haldol] AdvReac Extrapyramidal Verified 04/13/20 19:31 Symptoms Sulfa (Sulfonamide AdvReac Nausea & Verified 04/13/20 19:31 Antibiotics) Vomiting Review of Systems ROS Statement: Those systems with pertinent positive or pertinent negative responses have been documented in the HPI. ROS Other: All systems not noted in ROS Statement are negative. Past Medical History Past Medical History: Asthma, GERD/Reflux, Hyperlipidemia, Musculoskeletal Disorder, Neurologic Disorder, Osteoarthritis (OA), Seizure Disorder Additional Past Medical History / Comment(s): RSD-DERIC FEET, INTERSTITIAL CYSTITIS, BRONCHITIS, HEMORRHOIDS,MIGRAINES, INSOMNIA. VERTIGO, last seizure 4 years ago, complex regional pain syndrome, RLS. History of Any Multi-Drug Resistant Organisms: MRSA Date of last positivie culture/infection: 04/20/15 MDRO Source:: Left Axilla Past Surgical History: Adenoidectomy, Back Surgery, Cholecystectomy, Orthopedic Surgery, Tonsillectomy Additional Past Surgical History / Comment(s): bilateral foot surgery d/t rsd, numerous pain clinic procedures, nerve stimulator in back to tx RSD placed in Nov 11 2015, pain pump placement, Past Anesthesia/Blood Transfusion Reactions: Previous Problems w/ Anesthesia Additional Past Anesthesia/Blood Transfusion Reaction / Comment(s): Pt recieved blood when she was 2 yrs old after tonsillectomy. WHEN BABY HEART STOPPED TWICE- PT STATED SHE WAS ALLERGIC TO ETHER. Past Psychological History: Anxiety, Bipolar, Depression, PTSD Smoking Status: Never smoker Past Alcohol Use History: None Reported Past Drug Use History: Marijuana - Past Family History Father History Unknown: Yes Family Medical History: Diabetes Mellitus Mother Family Medical History: Cancer, CVA/TIA, Diabetes Mellitus, Myocardial Infarction ([place]) Additional Family Medical History / Comment(s): Mother has had 5 CVAs, 3 MIs and UTERINE CANCER General Exam Limitations: no limitations General appearance: alert, in no apparent distress Head exam: Present: atraumatic, normal inspection Eye exam: Present: normal appearance, PERRL, EOMI ENT exam: Present: normal exam, mucous membranes moist Neck exam: Present: normal inspection, full ROM Respiratory exam: Present: normal lung sounds bilaterally. Absent: respiratory distress Cardiovascular Exam: Present: regular rate, normal rhythm GI/Abdominal exam: Present: soft, normal bowel sounds. Absent: distended, tenderness, guarding, rebound, rigid Extremities exam: Present: other (Moving all extremities without difficulty, no external signs of trauma. capillary refill less than 2 seconds, ) Course Vital Signs 04/13/20 04/13/20 18:13 19:40 Temperature 98.8 F 98.7 F Pulse Rate 93 87 Respiratory 16 20 Rate Blood Pressure 132/88 133/79 O2 Sat by Pulse 96 97 Oximetry Medical Decision Making - Medical Decision Making Patient was given Toradol and Benadryl as requested. She will follow-up with her pain management doctor. She'll return here for any worsening symptoms. Disposition Clinical Impression: Chronic pain Disposition: HOME SELF-CARE Condition: Good Instructions (If sedation given, give patient instructions): Chronic Pain (ED) Additional Instructions: Follow up with your primary care physician for recheck in 1-2 days. Return to the emergency department for any new, worsening, or concerning symptoms. Is patient prescribed a controlled substance at d/c from ED?: No Referrals: China Doyle MD [Primary Care Provider] - 1-2 days Time of Disposition: 19:34
[2020-04-13 19:41] VITALS: BP 133/79; PULSE 87; RESP 20; TEMP 98.7
== END 2020-04-13 19:41 | disposition home or self-care (01) ==
LOC: EC 18:07
DX: G89.29 Other chronic pain (principal); M79.606 Pain in leg, unspecified; M79.89 Other specified soft tissue disorders; J45.909 Unspecified asthma, uncomplicated; K21.9 Gastro-esophageal reflux disease without esophagitis; E78.5 Hyperlipidemia, unspecified; G40.909 Epilepsy, unspecified, not intractable, without status epilepticus; F41.9 Anxiety disorder, unspecified; F31.9 Bipolar disorder, unspecified; Z79.899 Other long term (current) drug therapy; Z88.1 Allergy status to other antibiotic agents; Z88.8 Allergy status to other drugs, medicaments and biological substances; Z91.013 Allergy to seafood; Z88.5 Allergy status to narcotic agent; Z88.2 Allergy status to sulfonamides
CPT/HCPCS: 99283 ×2; 96372 ×3; J1200; J1885

== ENCOUNTER 2020-05-09 16:44 | Emergency (ER) | payer MEDICARE, OTHER ==
[2020-05-09 16:48] VITALS: RESP 18; TEMP 97.9
[2020-05-09] MEDS ORDERED: LORazepam 1 MG TAB PO STA (17:02)
[2020-05-09] MEDS ORDERED: KETOROLAC 15 MG/ML 1 ML VIAL IM STA (17:02)
[2020-05-09] MEDS ORDERED: diphenhydrAMINE 50 MG CAP PO STA (17:02)
--- NOTE | 2020-05-09 17:10 | ED ---
Extremity Problem HPI - General Chief complaint: Extremity Problem,Nontraumatic Stated complaint: leg pain Time Seen by Provider: 05/09/20 16:57 Source: patient Mode of arrival: ambulatory Limitations: no limitations - History of Present Illness Initial comments: 34-year-old female presenting today for chief complaint of bilateral feet pain. Patient states that she had complex regional pain syndrome diagnosis after she had one in surgery on her feet bilaterally. She states at times she has flares which occur about 8-9x a month. patient states that she has a fentanyl pump in order to control her chronic pain which they are currently titrating. P - Related Data Home Medications Medication Instructions Recorded Confirmed Medroxyprogesterone Acetate 150 mg IM Q84D 11/22/13 04/13/20 [Depo-Provera] rOPINIRole HCL [Requip] 1 mg PO QAM 11/22/13 04/13/20 Pentosan Polysulfate Sodium 100 mg PO BID 02/10/15 04/13/20 [Elmiron] HYDROcodone/APAP 7.5-325MG [[place] 1 tab PO BID PRN 07/20/16 04/13/20 7.5-325] Paliperidone IM Pt Own [Invega 117 mg IM Q28D 07/20/16 04/13/20 Sustenna] amantadine HCL [Symmetrel] 100 mg PO BID 11/21/16 04/13/20 Albuterol Sulfate [Proair Hfa] 2 puff INHALATION RT-BID PRN 01/13/18 04/13/20 Butalb/Acetaminophen/Caffeine 1 tab PO Q8H PRN 01/13/18 04/13/20 [Fioricet 50-325-40] Fluticasone Propionate [Flovent 2 puff INHALATION RT-DAILY PRN 01/13/18 04/13/20 Hfa 110 mcg] Gemfibrozil [Lopid] 600 mg PO BID 01/13/18 04/13/20 ondansetron HCL [Zofran] 8 mg PO TID PRN 01/13/18 04/13/20 tiZANidine HCL [Zanaflex] 4 mg PO Q6H PRN 01/13/18 04/13/20 Gabapentin [Neurontin] 300 mg PO HS 03/11/18 04/13/20 Fentanyl Pain Pump 1 dose INTRATHECA CONTINUOUS 09/16/19 04/13/20 Gabapentin [Neurontin] 600 mg PO TID 09/16/19 04/13/20 Omeprazole [PriLOSEC] 40 mg PO DAILY 09/16/19 04/13/20 rOPINIRole HCL [Requip] 2 mg PO HS 09/16/19 04/13/20 traZODone HCL 200 mg PO HS 09/16/19 04/13/20 hydrOXYzine pamoate [hydrOXYzine 25 mg PO BID 04/13/20 04/13/20 PAMOATE] Allergies Allergy/AdvReac Type Severity Reaction Status Date / Time azithromycin Allergy Rash/Hives Verified 05/09/20 16:45 [From Zithromax Z-Mehrdad] cimetidine [From Tagamet] Allergy Rash/Hives Verified 05/09/20 16:45 ether [Ether] Allergy Anaphylaxis Verified 05/09/20 16:45 Fish Containing Products Allergy Anaphylaxis Verified 05/09/20 16:45 [Fish] ketorolac tromethamine Allergy Rash/Hives Verified 05/09/20 16:45 [From Toradol] ziprasidone HCl [From Geodon] Allergy Extrapyramidal Verified 05/09/20 16:45 Symptoms fluphenazine HCl AdvReac Extrapyramidal Verified 05/09/20 16:45 [From Prolixin] Symptoms haloperidol [From Haldol] AdvReac Extrapyramidal Verified 05/09/20 16:45 Symptoms Sulfa (Sulfonamide AdvReac Nausea & Verified 05/09/20 16:45 Antibiotics) Vomiting Review of Systems ROS Statement: Those systems with pertinent positive or pertinent negative responses have been documented in the HPI. ROS Other: All systems not noted in ROS Statement are negative. Past Medical History Past Medical History: Asthma, GERD/Reflux, Hyperlipidemia, Musculoskeletal Disorder, Neurologic Disorder, Osteoarthritis (OA), Seizure Disorder Additional Past Medical History / Comment(s): RSD-DERIC FEET, INTERSTITIAL CYSTITIS, BRONCHITIS, HEMORRHOIDS,MIGRAINES, INSOMNIA. VERTIGO, last seizure 4 years ago, complex regional pain syndrome, RLS. History of Any Multi-Drug Resistant Organisms: MRSA Date of last positivie culture/infection: 04/20/15 MDRO Source:: Left Axilla Past Surgical History: Adenoidectomy, Back Surgery, Cholecystectomy, Orthopedic Surgery, Tonsillectomy Additional Past Surgical History / Comment(s): bilateral foot surgery d/t rsd, numerous pain clinic procedures, nerve stimulator in back to tx RSD placed in [place] 2015, pain pump placement, Past Anesthesia/Blood Transfusion Reactions: Previous Problems w/ Anesthesia Additional Past Anesthesia/Blood Transfusion Reaction / Comment(s): Pt recieved blood when she was 2 yrs old after tonsillectomy. WHEN BABY HEART STOPPED TWICE- PT STATED SHE WAS ALLERGIC TO ETHER. Past Psychological History: Anxiety, Bipolar, Depression, PTSD Smoking Status: Never smoker Past Alcohol Use History: None Reported Past Drug Use History: Marijuana - Past Family History Father History Unknown: Yes Family Medical History: Diabetes Mellitus Mother Family Medical History: Cancer, CVA/TIA, Diabetes Mellitus, Myocardial Infarction ([place]) Additional Family Medical History / Comment(s): Mother has had 5 CVAs, 3 MIs and UTERINE CANCER General Exam Limitations: no limitations Course Vital Signs 05/09/20 05/09/20 16:46 18:42 Temperature 97.9 F Pulse Rate 100 75 Respiratory 18 18 Rate Blood Pressure 146/85 140/86 O2 Sat by Pulse 97 99 Oximetry Disposition Clinical Impression: Chronic leg pain Disposition: HOME SELF-CARE Condition: Good Additional Instructions: Please use medication as discussed. Please follow-up with family doctor in the next 2 days-as well as pain management tomorrow. Please return to emergency room if the symptoms increase or worsen or for any other concerns. Is patient prescribed a controlled substance at d/c from ED?: No Referrals: China Doyle MD [Primary Care Provider] - 1-2 days Time of Disposition: 18:23
[2020-05-09] MEDS ORDERED: diphenhydrAMINE 50 MG/ML 1 ML VIAL IM STA (17:22)
[2020-05-09] MEDS ORDERED: ACET/COD 300 MG/30 MG STARTER PACK 6 TAB BTL PO STA (18:22)
[2020-05-09 18:43] VITALS: BP 140/86; PULSE 75
== END 2020-05-09 18:43 | disposition home or self-care (01) ==
LOC: EC 16:44
DX: M79.672 Pain in left foot (principal); M79.671 Pain in right foot; G89.29 Other chronic pain; F41.9 Anxiety disorder, unspecified; F31.9 Bipolar disorder, unspecified; F43.10 Post-traumatic stress disorder, unspecified; J45.909 Unspecified asthma, uncomplicated; K21.9 Gastro-esophageal reflux disease without esophagitis; E78.5 Hyperlipidemia, unspecified; G40.909 Epilepsy, unspecified, not intractable, without status epilepticus; G25.81 Restless legs syndrome; Z79.899 Other long term (current) drug therapy; Z90.89 Acquired absence of other organs; Z90.49 Acquired absence of other specified parts of digestive tract; Z86.14 Personal history of Methicillin resistant Staphylococcus aureus infection; Z88.0 Allergy status to penicillin; Z88.2 Allergy status to sulfonamides; Z88.8 Allergy status to other drugs, medicaments and biological substances; Z91.013 Allergy to seafood; Z91.048 Other nonmedicinal substance allergy status
CPT/HCPCS: 99283; 96372 ×2; J1200; J1885

== ENCOUNTER → 2020-05-11 | Outpatient (CLI) | payer MEDICARE, OTHER ==
--- NOTE | 2020-05-11 16:28 | CONS ---
CONSULTATION DATE OF SERVICE: 05/11/2020 A 34-year-old lady had been evaluated in [facility] for her significant sleep problems. HISTORY OF PRESENT ILLNESS/SLEEP-WAKE EVALUATION: The patient has significant problems with falling asleep secondary to pain and restless leg symptoms. Her usual sleep schedule in the range of midnight to a.m. She has TV set in bedroom. She sleeps in different positions. She twitched her legs during the night. She has multiple awakenings from sleep with nocturia, dry mouth, panic attacks, heartburns and grinding teeth and significant sweating during the sleep. In the morning, patient wakes up tired, feels tiredness during the day. Worry about her sleep, has episodes of depression and anxiety. She may take one nap at the range of 2 to 3 p.m. and sometimes seeing vivid dreams during nap, usually does not feel refreshed after nap. Moss Sleepiness Scale significantly increased to 15. PAST MEDICAL HISTORY: Positive for complex regional pain syndrome, high cholesterol, arthritis, asthma, sinus problems, headaches, acid reflux. PAST SURGICAL HISTORY: Fentanyl pump insertion, cord stimulator on 09/04/2019. MEDICATIONS: Elmiron 100 mg 1 capsule twice a day, Flovent 2 puffs a day, gabapentin 300 mg up to 3 times a day, gemfibrozil 600 mg one tablet twice a day, [place] 7.5 mg twice a day, ProAir 2 puffs on a p.r.n. basis; Requip 1 mg one tablet in the morning, one tablet afternoon and two tablets at bedtime; tizanidine 4 mg one tablet q.6 hours, Zofran 4 mg one tablet p.o. t.i.d., amantadine 100 mg capsules twice a day, trazodone 200 mg at bedtime. REVIEW OF SYSTEMS: Restless leg symptoms, pain, difficulties to initiate sleep, multiple awakenings from sleep. FAMILY HISTORY: Heart problems, hypertension, stroke, or lung problems, diabetes. PHYSICAL EXAMINATION: GENERAL: lady without distress. VIAL SIGNS: BP 119/83, HR 80, RR 15, height 5 feet 2 inches, weight 147, temperature 97.8, BMI 26.8, oxygen saturation on room air 97%. HEENT: PERRLA, EOMI. Oropharynx extremely low position of soft palate. Mallampati 4. NECK: 14 inches in circumference. LUNGS: Clear to percussion and to auscultation. Good air exchange. No wheezing or rhonchi. HEART: S1, S2 regular. No murmurs, gallops, or rubs. ABDOMEN: Soft and nontender. Bowel sounds are present. No organomegaly appreciated. EXTREMITIES: No clubbing or cyanosis. GROUP CONTRACT ANALYST: Awake, alert, and oriented X3. Cranial nerves 2 to 7 intact. There is no fasciculation or atrophy. noted. No focal deficits observed. IMPRESSION: 1. Awakenings from sleep, extremely low position of soft palate, Mallampati 4 possible obstructive sleep apnea-hypopnea syndrome. 2. Restless legs syndrome. 3. Possibly periodic limb movements. 4. Insomnia. 5. Complex regional pain syndrome. 6. History of arthritis. 7. History of asthma. 8. History of sinusitis. 9. Headaches. 10.Acid reflux. 11.History of episodes of depression and anxiety. PLAN: 1. Polysomnography for evaluation of patient's breathing during sleep. 2. CPAP/BiPAP titration if sleep study confirms obstructive sleep apnea-hypopnea syndrome. 3. Preferable position during sleep on the side. 4. No driving if patient feels any sleepiness. 5. I will see patient for follow up visit to explain results of testing and following plan. 6. Please check iron profile, including ferritin level. Low level of iron could be related to developing of restless legs and periodic limb movements. 7. I will try small doses of Ambien 5 mg at bedtime for insomnia, stimulus control, paradoxical intention, worry time. Thank you very much for referring this patient for consultation. Sincerely, Sunny Dwyer MD, PhD, FAASM Diplomat of [place] [employer] [place] [employer] Generator of [facility] [place] MMODL / IJN: [id number] /
== END | disposition home or self-care (01) ==
LOC: SLEEP 13:36
PROVIDERS: ATTEND Internal Medicine
DX: G47.69 Other sleep related movement disorders (principal); G25.81 Restless legs syndrome; G47.00 Insomnia, unspecified; G90.50 Complex regional pain syndrome I, unspecified; K21.9 Gastro-esophageal reflux disease without esophagitis; R51.9 Headache, unspecified; Z87.09 Personal history of other diseases of the respiratory system; Z87.39 Personal history of other diseases of the musculoskeletal system and connective tissue; Z86.59 Personal history of other mental and behavioral disorders
CPT/HCPCS: 99211

== ENCOUNTER 2020-05-24 16:02 | Emergency (ER) | payer MEDICARE, OTHER ==
[2020-05-24 16:15] VITALS: RESP 18
[2020-05-24] MEDS ORDERED: KETOROLAC 15 MG/ML 1 ML VIAL IM STA (17:07)
[2020-05-24] MEDS ORDERED: diphenhydrAMINE 50 MG/ML 1 ML VIAL IM STA (17:07)
--- NOTE | 2020-05-24 17:10 | ED ---
Extremity Problem HPI - General Chief complaint: Extremity Problem,Nontraumatic Stated complaint: Leg pain Time Seen by Provider: 05/24/20 16:52 Source: patient, RN notes reviewed Mode of arrival: ambulatory Limitations: no limitations - History of Present Illness Initial comments: Patient is a 30 forego female presents emergency Department with increased pain or bilateral lower excised. She does note that she has a fentanyl pump in her stomach to help with chronic leg pain. She'll that she went to her doctor today to get some cortisone injections into her left knee for some bursitis. But noted that her knee started tremoring and 1 L going. She noted this caused a flareup in her legs straight emergency room with 10 on a 10 leg pain. She was in moderate pain and discomfort while sitting up in bed during the exam and interview. She noted that Toradol Benadryl seemed to work take the edge off. She denied any new numbness tingling chest pain first breath headache nausea vomiting diarrhea, fatigue chills. - Related Data Home Medications Medication Instructions Recorded Confirmed Medroxyprogesterone Acetate 150 mg IM Q84D 11/22/13 04/13/20 [Depo-Provera] rOPINIRole HCL [Requip] 1 mg PO QAM 11/22/13 04/13/20 Pentosan Polysulfate Sodium 100 mg PO BID 02/10/15 04/13/20 [Elmiron] HYDROcodone/APAP 7.5-325MG [[place] 1 tab PO BID PRN 07/20/16 04/13/20 7.5-325] Paliperidone IM Pt Own [Invega 117 mg IM Q28D 07/20/16 04/13/20 Sustenna] amantadine HCL [Symmetrel] 100 mg PO BID 11/21/16 04/13/20 Albuterol Sulfate [Proair Hfa] 2 puff INHALATION RT-BID PRN 01/13/18 04/13/20 Butalb/Acetaminophen/Caffeine 1 tab PO Q8H PRN 01/13/18 04/13/20 [Fioricet 50-325-40] Fluticasone Propionate [Flovent 2 puff INHALATION RT-DAILY PRN 01/13/18 04/13/20 Hfa 110 mcg] Gemfibrozil [Lopid] 600 mg PO BID 01/13/18 04/13/20 ondansetron HCL [Zofran] 8 mg PO TID PRN 01/13/18 04/13/20 tiZANidine HCL [Zanaflex] 4 mg PO Q6H PRN 01/13/18 04/13/20 Gabapentin [Neurontin] 300 mg PO HS 03/11/18 04/13/20 Fentanyl Pain Pump 1 dose INTRATHECA CONTINUOUS 09/16/19 04/13/20 Gabapentin [Neurontin] 600 mg PO TID 09/16/19 04/13/20 Omeprazole [PriLOSEC] 40 mg PO DAILY 09/16/19 04/13/20 rOPINIRole HCL [Requip] 2 mg PO HS 09/16/19 04/13/20 traZODone HCL 200 mg PO HS 09/16/19 04/13/20 hydrOXYzine pamoate [hydrOXYzine 25 mg PO BID 04/13/20 04/13/20 PAMOATE] Allergies Allergy/AdvReac Type Severity Reaction Status Date / Time azithromycin Allergy Rash/Hives Verified 05/24/20 16:15 [From Zithromax Z-Mehrdad] cimetidine [From Tagamet] Allergy Rash/Hives Verified 05/24/20 16:15 ether [Ether] Allergy Anaphylaxis Verified 05/24/20 16:15 Fish Containing Products Allergy Anaphylaxis Verified 05/24/20 16:15 [Fish] ketorolac tromethamine Allergy Rash/Hives Verified 05/24/20 16:15 [From Toradol] ziprasidone HCl [From Geodon] Allergy Extrapyramidal Verified 05/24/20 16:15 Symptoms fluphenazine HCl AdvReac Extrapyramidal Verified 05/24/20 16:15 [From Prolixin] Symptoms haloperidol [From Haldol] AdvReac Extrapyramidal Verified 05/24/20 16:15 Symptoms Sulfa (Sulfonamide AdvReac Nausea & Verified 05/24/20 16:15 Antibiotics) Vomiting Review of Systems ROS Statement: Those systems with pertinent positive or pertinent negative responses have been documented in the HPI. ROS Other: All systems not noted in ROS Statement are negative. Past Medical History Past Medical History: Asthma, GERD/Reflux, Hyperlipidemia, Musculoskeletal Disorder, Neurologic Disorder, Osteoarthritis (OA), Seizure Disorder Additional Past Medical History / Comment(s): RSD-DERIC FEET, INTERSTITIAL CYSTITIS, BRONCHITIS, HEMORRHOIDS,MIGRAINES, INSOMNIA. VERTIGO, last seizure 4 years ago, complex regional pain syndrome, RLS. History of Any Multi-Drug Resistant Organisms: MRSA Date of last positivie culture/infection: 04/20/15 MDRO Source:: Left Axilla Past Surgical History: Adenoidectomy, Back Surgery, Cholecystectomy, Orthopedic Surgery, Tonsillectomy Additional Past Surgical History / Comment(s): bilateral foot surgery d/t rsd, numerous pain clinic procedures, nerve stimulator in back to tx RSD placed in Nov 11 2015, pain pump placement, Past Anesthesia/Blood Transfusion Reactions: Previous Problems w/ Anesthesia Additional Past Anesthesia/Blood Transfusion Reaction / Comment(s): Pt recieved blood when she was 2 yrs old after tonsillectomy. WHEN BABY HEART STOPPED TWICE- PT STATED SHE WAS ALLERGIC TO ETHER. Past Psychological History: Anxiety, Bipolar, Depression, PTSD Smoking Status: Never smoker Past Alcohol Use History: None Reported Past Drug Use History: Marijuana - Past Family History Father History Unknown: Yes Family Medical History: Diabetes Mellitus Mother Family Medical History: Cancer, CVA/TIA, Diabetes Mellitus, Myocardial Infarction ([place]) Additional Family Medical History / Comment(s): Mother has had 5 CVAs, 3 MIs and UTERINE CANCER General Exam Limitations: no limitations General appearance: alert, in distress Head exam: Present: atraumatic, normocephalic, normal inspection Eye exam: Present: normal appearance, PERRL, EOMI. Absent: scleral icterus, conjunctival injection, periorbital swelling ENT exam: Present: normal exam, mucous membranes moist Neck exam: Present: normal inspection. Absent: tenderness, meningismus, lymphadenopathy Respiratory exam: Present: normal lung sounds bilaterally. Absent: respiratory distress, wheezes, rales, rhonchi, stridor Cardiovascular Exam: Present: regular rate, normal rhythm, normal heart sounds. Absent: systolic murmur, diastolic murmur, rubs, gallop, clicks Extremities exam: Present: normal inspection, full ROM, normal capillary refill. Absent: tenderness, pedal edema, joint swelling, calf tenderness Neurological exam: Present: alert, oriented X3, CN II-XII intact Psychiatric exam: Present: normal affect, normal mood Skin exam: Present: warm, dry, intact, normal color. Absent: rash Course Vital Signs 05/24/20 16:13 Temperature 98.6 F Pulse Rate 71 Respiratory 18 Rate Blood Pressure 127/99 O2 Sat by Pulse 99 Oximetry Medical Decision Making - Medical Decision Making 34-year-old with regional pain syndrome of bilateral legs complaining flareup. 50 mg Toradol and 50 mg of Benadryl ordered. Case discussed with Dr. Castillo, was decided patient to discharge home with follow-up to primary care and other doctors that follow. Disposition Clinical Impression: Chronic leg pain, Chronic pain syndrome Disposition: HOME SELF-CARE Condition: Stable Instructions (If sedation given, give patient instructions): Chronic Pain (ED) Additional Instructions: Please return to the Emergency Department if symptoms worsen or any other concerns. Follow-up primary care and other doctors that follow you in 1-2 days. Continue to follow up with pain resin doctor. Is patient prescribed a controlled substance at d/c from ED?: No Referrals: China Doyle MD [Primary Care Provider] - 1-2 days Time of Disposition: 17:47
[2020-05-24 17:58] VITALS: BP 137/82; PULSE 74; TEMP 98.5
== END 2020-05-24 18:05 | disposition home or self-care (01) ==
LOC: EC 16:02
DX: G89.4 Chronic pain syndrome (principal); M79.604 Pain in right leg; M79.605 Pain in left leg; F41.9 Anxiety disorder, unspecified; F31.9 Bipolar disorder, unspecified; F43.10 Post-traumatic stress disorder, unspecified; J45.909 Unspecified asthma, uncomplicated; K21.9 Gastro-esophageal reflux disease without esophagitis; E78.5 Hyperlipidemia, unspecified; M19.90 Unspecified osteoarthritis, unspecified site; G40.909 Epilepsy, unspecified, not intractable, without status epilepticus; G47.00 Insomnia, unspecified; G25.81 Restless legs syndrome; Z79.51 Long term (current) use of inhaled steroids; Z79.899 Other long term (current) drug therapy; Z79.891 Long term (current) use of opiate analgesic; Z79.3 Long term (current) use of hormonal contraceptives; Z88.2 Allergy status to sulfonamides; Z88.8 Allergy status to other drugs, medicaments and biological substances; Z88.6 Allergy status to analgesic agent; Z88.1 Allergy status to other antibiotic agents; Z91.013 Allergy to seafood
CPT/HCPCS: 99283; 96372 ×2; J1200; J1885

== ENCOUNTER 2020-06-08 15:22 | Emergency (ER) | payer MEDICARE, OTHER ==
[2020-06-08 15:26] VITALS: BP 156/92; PULSE 100; RESP 16; TEMP 98.9
--- NOTE | 2020-06-08 16:39 | ED ---
General Adult HPI - General Chief complaint: Fall Stated complaint: fall, arm injury Time Seen by Provider: 06/08/20 16:05 Source: patient, RN notes reviewed Mode of arrival: ambulatory Limitations: no limitations - History of Present Illness Initial comments: Patient is a pleasant 34-year-old female presenting to the emergency department with fall and right elbow pain. Incident occurred eating out of the tub 5 days ago. Patient did land on her right elbow. Discomfort continues. Discomfort does radiate up and down the arm. Patient does have history of previous right wrist fracture. Patient did strike her head. A aceves has been having some mild headaches since that time. Patient has also had mild nausea. Patient did not lose consciousness. No dizziness. No weakness. No ataxia. No vomiting. No weakness. No confusion or speech problems. - Related Data Home Medications Medication Instructions Recorded Confirmed Medroxyprogesterone Acetate 150 mg IM Q84D 11/22/13 04/13/20 [Depo-Provera] rOPINIRole HCL [Requip] 1 mg PO QAM 11/22/13 04/13/20 Pentosan Polysulfate Sodium 100 mg PO BID 02/10/15 04/13/20 [Elmiron] HYDROcodone/APAP 7.5-325MG [[place] 1 tab PO BID PRN 07/20/16 04/13/20 7.5-325] Paliperidone IM Pt Own [Invega 117 mg IM Q28D 07/20/16 04/13/20 Sustenna] amantadine HCL [Symmetrel] 100 mg PO BID 11/21/16 04/13/20 Albuterol Sulfate [Proair Hfa] 2 puff INHALATION RT-BID PRN 01/13/18 04/13/20 Butalb/Acetaminophen/Caffeine 1 tab PO Q8H PRN 01/13/18 04/13/20 [Fioricet 50-325-40] Fluticasone Propionate [Flovent 2 puff INHALATION RT-DAILY PRN 01/13/18 04/13/20 Hfa 110 mcg] Gemfibrozil [Lopid] 600 mg PO BID 01/13/18 04/13/20 ondansetron HCL [Zofran] 8 mg PO TID PRN 01/13/18 04/13/20 tiZANidine HCL [Zanaflex] 4 mg PO Q6H PRN 01/13/18 04/13/20 Gabapentin [Neurontin] 300 mg PO HS 03/11/18 04/13/20 Fentanyl Pain Pump 1 dose INTRATHECA CONTINUOUS 09/16/19 04/13/20 Gabapentin [Neurontin] 600 mg PO TID 09/16/19 04/13/20 Omeprazole [PriLOSEC] 40 mg PO DAILY 09/16/19 04/13/20 rOPINIRole HCL [Requip] 2 mg PO HS 09/16/19 04/13/20 traZODone HCL 200 mg PO HS 09/16/19 04/13/20 hydrOXYzine pamoate [hydrOXYzine 25 mg PO BID 04/13/20 04/13/20 PAMOATE] Allergies Allergy/AdvReac Type Severity Reaction Status Date / Time azithromycin Allergy Rash/Hives Verified 06/08/20 15:26 [From Zithromax Z-Mehrdad] cimetidine [From Tagamet] Allergy Rash/Hives Verified 06/08/20 15:26 ether [Ether] Allergy Anaphylaxis Verified 06/08/20 15:26 Fish Containing Products Allergy Anaphylaxis Verified 06/08/20 15:26 [Fish] ketorolac tromethamine Allergy Rash/Hives Verified 06/08/20 15:26 [From Toradol] ziprasidone HCl [From Geodon] Allergy Extrapyramidal Verified 06/08/20 15:26 Symptoms fluphenazine HCl AdvReac Extrapyramidal Verified 06/08/20 15:26 [From Prolixin] Symptoms haloperidol [From Haldol] AdvReac Extrapyramidal Verified 06/08/20 15:26 Symptoms Sulfa (Sulfonamide AdvReac Nausea & Verified 06/08/20 15:26 Antibiotics) Vomiting Review of Systems ROS Statement: Those systems with pertinent positive or pertinent negative responses have been documented in the HPI. ROS Other: All systems not noted in ROS Statement are negative. Constitutional: Denies: fever Eyes: Denies: eye pain ENT: Denies: ear pain Respiratory: Denies: cough Cardiovascular: Denies: chest pain Endocrine: Denies: fatigue Gastrointestinal: Denies: abdominal pain Genitourinary: Denies: dysuria Musculoskeletal: Reports: as per HPI. Denies: back pain Skin: Denies: rash Neurological: Reports: as per HPI, headache. Denies: weakness, confusion, abnormal gait, vertigo Past Medical History Past Medical History: Asthma, GERD/Reflux, Hyperlipidemia, Musculoskeletal Disorder, Neurologic Disorder, Osteoarthritis (OA), Seizure Disorder Additional Past Medical History / Comment(s): RSD-DERIC FEET, INTERSTITIAL CYSTITIS, BRONCHITIS, HEMORRHOIDS,MIGRAINES, INSOMNIA. VERTIGO, last seizure 4 years ago, complex regional pain syndrome, RLS. History of Any Multi-Drug Resistant Organisms: MRSA Date of last positivie culture/infection: 04/20/15 MDRO Source:: Left Axilla Past Surgical History: Adenoidectomy, Back Surgery, Cholecystectomy, Orthopedic Surgery, Tonsillectomy Additional Past Surgical History / Comment(s): bilateral foot surgery d/t rsd, numerous pain clinic procedures, nerve stimulator in back to tx RSD placed in Nov 11 2015, pain pump placement, Past Anesthesia/Blood Transfusion Reactions: Previous Problems w/ Anesthesia Additional Past Anesthesia/Blood Transfusion Reaction / Comment(s): Pt recieved blood when she was 2 yrs old after tonsillectomy. WHEN BABY HEART STOPPED TWICE- PT STATED SHE WAS ALLERGIC TO ETHER. Past Psychological History: Anxiety, Bipolar, Depression, PTSD Smoking Status: Never smoker Past Alcohol Use History: None Reported Past Drug Use History: Marijuana - Past Family History Father History Unknown: Yes Family Medical History: Diabetes Mellitus Mother Family Medical History: Cancer, CVA/TIA, Diabetes Mellitus, Myocardial Infarct ion ([place]) Additional Family Medical History / Comment(s): Mother has had 5 CVAs, 3 MIs and UTERINE CANCER General Exam Limitations: no limitations General appearance: alert, in no apparent distress Head exam: Present: normocephalic Eye exam: Present: normal appearance, PERRL, EOMI. Absent: nystagmus Neck exam: Present: normal inspection. Absent: tenderness, meningismus Respiratory exam: Present: normal lung sounds bilaterally Cardiovascular Exam: Present: regular rate, normal rhythm Expanded Peripheral pulses: 2+: Radial (R) GI/Abdominal exam: Present: soft. Absent: tenderness Extremities exam: Present: tenderness (Moderate tenderness of right elbow. Pain with range of motion. Distally the extremity is neurovascularly intact.) Neurological exam: Present: alert, oriented X3, CN II-XII intact. Absent: motor sensory deficit Expanded Neurological exam: Present: protecting the airway Patient oriented to: Present: person, place, time Speech: Present: fluid speech Cranial nerves: EOM's Intact: Normal, Facial Sensation: Normal Motor strength exam: RUE: 5, LUE: 5, RLE: 5, LLE: 5 Eye Response: (4) open spontaneously Motor Response: (6) obeys commands Verbal Response: (5) oriented Psychiatric exam: Present: normal affect, normal mood Skin exam: Present: normal color Course Vital Signs 06/08/20 15:23 Temperature 98.9 F Pulse Rate 100 Respiratory 16 Rate Blood Pressure 156/92 O2 Sat by Pulse 100 Oximetry Medical Decision Making - Medical Decision Making Patient with low suspicion for significant head injury. Nevertheless patient was offered head CT and patient declines. Patient reevaluated and updated. - Radiology Data Radiology results: image reviewed (Right elbow x-ray reveals no acute process) Disposition Clinical Impression: Elbow injury Disposition: HOME SELF-CARE Condition: Stable Instructions (If sedation given, give patient instructions): Arm Pain (ED) Additional Instructions: Please do follow-up to primary care physician in the next couple days for recheck. Use sling. Ice to affected area 5-6 times daily for 20 minutes. [id number] Tylenol as needed. Return for increased pain, weakness, worsening or change in symptoms or other concerns. Is patient prescribed a controlled substance at d/c from ED?: No Referrals: China Doyle MD [Primary Care Provider] - 1-2 days Time of Disposition: 17:16
--- NOTE | 2020-06-08 17:01 | XR ---
EXAMINATION TYPE: XR elbow complete RT DATE OF EXAM: 06/08/2020 CLINICAL HISTORY: Right elbow pain TECHNIQUE: Frontal, lateral and oblique images of the right elbow are obtained. COMPARISON: 11/18/2017 FINDINGS: There is no acute fracture/dislocation evident in the right elbow. No abnormal fat pad si gns are seen. The overlying soft tissue appears unremarkable. IMPRESSION: There is no acute fracture or dislocation in the right elbow.
[2020-06-08] MEDS ORDERED: ACETAMINOPHEN TAB 500 MG TAB PO STA (17:11)
== END 2020-06-08 17:28 | disposition home or self-care (01) ==
LOC: EC 15:22
DX: S59.901A Unspecified injury of right elbow, initial encounter (principal); J45.909 Unspecified asthma, uncomplicated; E78.5 Hyperlipidemia, unspecified; G25.81 Restless legs syndrome; K21.9 Gastro-esophageal reflux disease without esophagitis; F41.9 Anxiety disorder, unspecified; F32.9 Major depressive disorder, single episode, unspecified; Z79.3 Long term (current) use of hormonal contraceptives; Z79.899 Other long term (current) drug therapy; Z88.1 Allergy status to other antibiotic agents; Z91.013 Allergy to seafood; Z88.6 Allergy status to analgesic agent; Z88.8 Allergy status to other drugs, medicaments and biological substances; Z88.2 Allergy status to sulfonamides; Z90.49 Acquired absence of other specified parts of digestive tract; W19.XXXA Unspecified fall, initial encounter; Y92.009 Unspecified place in unspecified non-institutional (private) residence as the place of occurrence of the external cause
CPT/HCPCS: 99283

== ENCOUNTER 2020-06-14 22:15 | Emergency (ER) | payer MEDICARE, OTHER ==
[2020-06-14 22:21] VITALS: BP 149/93; PULSE 104; RESP 20; TEMP 97.4
[2020-06-14] MEDS ORDERED: KETOROLAC 15 MG/ML 1 ML VIAL IM STA (22:38)
[2020-06-14] MEDS ORDERED: diphenhydrAMINE 50 MG/ML 1 ML VIAL IM STA (22:39)
--- NOTE | 2020-06-14 22:57 | ED ---
General Adult HPI - General Chief complaint: Extremity Injury, Lower Stated complaint: Leg pain Time Seen by Provider: 06/14/20 22:23 Source: patient, RN notes reviewed Mode of arrival: ambulatory Limitations: no limitations - History of Present Illness Initial comments: 34-year-old female presents to emergency room with bilateral lower extremity pain. She notes that she does have a fentanyl pump. 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 She noted that the last time she went to class she's had no issues. She states that she usually gets Toradol and Benadryl while emergency department to help with pain control. She was sitting in bed in moderate pain and discomfort. She denied any weakness numbness tingling fever fatigue chills chest pain shortness of breath headache nausea vomiting diarrhea constipation - Related Data Home Medications Medication Instructions Recorded Confirmed Medroxyprogesterone Acetate 150 mg IM Q84D 11/22/13 04/13/20 [Depo-Provera] rOPINIRole HCL [Requip] 1 mg PO QAM 11/22/13 04/13/20 Pentosan Polysulfate Sodium 100 mg PO BID 02/10/15 04/13/20 [Elmiron] HYDROcodone/APAP 7.5-325MG [[place] 1 tab PO BID PRN 07/20/16 04/13/20 7.5-325] Paliperidone IM Pt Own [Invega 117 mg IM Q28D 07/20/16 04/13/20 Sustenna] amantadine HCL [Symmetrel] 100 mg PO BID 11/21/16 04/13/20 Albuterol Sulfate [Proair Hfa] 2 puff INHALATION RT-BID PRN 01/13/18 04/13/20 Butalb/Acetaminophen/Caffeine 1 tab PO Q8H PRN 01/13/18 04/13/20 [Fioricet 50-325-40] Fluticasone Propionate [Flovent 2 puff INHALATION RT-DAILY PRN 01/13/18 04/13/20 Hfa 110 mcg] Gemfibrozil [Lopid] 600 mg PO BID 01/13/18 04/13/20 ondansetron HCL [Zofran] 8 mg PO TID PRN 01/13/18 04/13/20 tiZANidine HCL [Zanaflex] 4 mg PO Q6H PRN 01/13/18 04/13/20 Gabapentin [Neurontin] 300 mg PO HS 03/11/18 04/13/20 Fentanyl Pain Pump 1 dose INTRATHECA CONTINUOUS 09/16/19 04/13/20 Gabapentin [Neurontin] 600 mg PO TID 09/16/19 04/13/20 Omeprazole [PriLOSEC] 40 mg PO DAILY 09/16/19 04/13/20 rOPINIRole HCL [Requip] 2 mg PO HS 09/16/19 04/13/20 traZODone HCL 200 mg PO HS 09/16/19 04/13/20 hydrOXYzine pamoate [hydrOXYzine 25 mg PO BID 04/13/20 04/13/20 PAMOATE] Allergies Allergy/AdvReac Type Severity Reaction Status Date / Time azithromycin Allergy Rash/Hives Verified 06/14/20 22:21 [From Zithromax Z-Mehrdad] cimetidine [From Tagamet] Allergy Rash/Hives Verified 06/14/20 22:21 ether [Ether] Allergy Anaphylaxis Verified 06/14/20 22:21 Fish Containing Products Allergy Anaphylaxis Verified 06/14/20 22:21 [Fish] ketorolac tromethamine Allergy Rash/Hives Verified 06/14/20 22:21 [From Toradol] ziprasidone HCl [From Geodon] Allergy Extrapyramidal Verified 06/14/20 22:21 Symptoms fluphenazine HCl AdvReac Extrapyramidal Verified 06/14/20 22:21 [From Prolixin] Symptoms haloperidol [From Haldol] AdvReac Extrapyramidal Verified 06/14/20 22:21 Symptoms Sulfa (Sulfonamide AdvReac Nausea & Verified 06/14/20 22:21 Antibiotics) Vomiting Review of Systems ROS Statement: Those systems with pertinent positive or pertinent negative responses have been documented in the HPI. ROS Other: All systems not noted in ROS Statement are negative. Past Medical History Past Medical History: Asthma, GERD/Reflux, Hyperlipidemia, Musculoskeletal Disorder, Neurologic Disorder, Osteoarthritis (OA), Seizure Disorder Additional Past Medical History / Comment(s): RSD-DERIC FEET, INTERSTITIAL CYSTITIS, BRONCHITIS, HEMORRHOIDS,MIGRAINES, INSOMNIA. VERTIGO, last seizure 4 years ago, complex regional pain syndrome, RLS. History of Any Multi-Drug Resistant Organisms: MRSA Date of last positivie culture/infection: 04/20/15 MDRO Source:: Left Axilla Past Surgical History: Adenoidectomy, Back Surgery, Cholecystectomy, Orthopedic Surgery, Tonsillectomy Additional Past Surgical History / Comment(s): bilateral foot surgery d/t rsd, numerous pain clinic procedures, nerve stimulator in back to tx RSD placed in Nov 11 2015, pain pump placement, Past Anesthesia/Blood Transfusion Reactions: Previous Problems w/ Anesthesia Additional Past Anesthesia/Blood Transfusion Reaction / Comment(s): Pt recieved blood when she was 2 yrs old after tonsillectomy. WHEN BABY HEART STOPPED TWICE- PT STATED SHE WAS ALLERGIC TO ETHER. Past Psychological History: Anxiety, Bipolar, Depression, PTSD Smoking Status: Never smoker Past Alcohol Use History: None Reported Past Drug Use History: Marijuana - Past Family History Father History Unknown: Yes Family Medical History: Diabetes Mellitus Mother Family Medical History: Cancer, CVA/TIA, Diabetes Mellitus, Myocardial Infarction ([place]) Additional Family Medical History / Comment(s): Mother has had 5 CVAs, 3 MIs and UTERINE CANCER General Exam Limitations: no limitations General appearance: alert, in no apparent distress Head exam: Present: atraumatic, normocephalic, normal inspection Eye exam: Present: normal appearance, PERRL, EOMI. Absent: scleral icterus, conjunctival injection, periorbital swelling ENT exam: Present: normal exam, mucous membranes moist Neck exam: Present: normal inspection. Absent: tenderness, meningismus, lymphadenopathy Respiratory exam: Present: normal lung sounds bilaterally. Absent: respiratory distress, wheezes, rales, rhonchi, stridor Cardiovascular Exam: Present: regular rate, normal rhythm, normal heart sounds. Absent: systolic murmur, diastolic murmur, rubs, gallop, clicks GI/Abdominal exam: Present: soft, normal bowel sounds. Absent: distended, tenderness, guarding, rebound, rigid Extremities exam: Present: normal inspection, full ROM, normal capillary refill. Absent: tenderness, pedal edema, joint swelling, calf tenderness Back exam: Present: normal inspection Neurological exam: Present: alert, oriented X3, CN II-XII intact Psychiatric exam: Present: normal affect, normal mood Skin exam: Present: warm, dry, intact, normal color. Absent: rash Course Vital Signs 06/14/20 22:19 Temperature 97.4 F L Pulse Rate 104 H Respiratory 20 Rate Blood Pressure 149/93 O2 Sat by Pulse 99 Oximetry Medical Decision Making - Medical Decision Making 34-year-old female that regular rate emergency department complaining of bilateral lower external pain, she does have a fentanyl pump. 15 mg of Toradol, 50 mg of Benadryl ordered. Case discussed with Dr. Stubbs, patient to discharge home. Disposition Clinical Impression: Chronic pain syndrome, Chronic pain in left foot Disposition: HOME SELF-CARE Instructions (If sedation given, give patient instructions): Chronic Pain (ED) Additional Instructions: Please return to the Emergency Department if symptoms worsen or any other concerns. Follow-up with primary care in 2-4 days. Follow-up with his medicine this is possible. Is patient prescribed a controlled substance at d/c from ED?: No Referrals: China Doyle MD [Primary Care Provider] - 1-2 days Time of Disposition: 23:11
== END 2020-06-14 23:29 | disposition home or self-care (01) ==
LOC: EC 22:15
DX: M79.672 Pain in left foot (principal); G89.4 Chronic pain syndrome; E78.5 Hyperlipidemia, unspecified; F32.9 Major depressive disorder, single episode, unspecified; F41.9 Anxiety disorder, unspecified; G25.81 Restless legs syndrome; G40.909 Epilepsy, unspecified, not intractable, without status epilepticus; J45.909 Unspecified asthma, uncomplicated; K21.9 Gastro-esophageal reflux disease without esophagitis; F12.90 Cannabis use, unspecified, uncomplicated; Z90.49 Acquired absence of other specified parts of digestive tract; Z90.09 Acquired absence of other part of head and neck; Z87.19 Personal history of other diseases of the digestive system
CPT/HCPCS: 99283; 96372; J1200; J1885

== ENCOUNTER 2020-07-06 19:23 | Emergency (ER) | payer MEDICARE, OTHER ==
[2020-07-06 21:15] VITALS: BP 148/100; PULSE 93; RESP 16; TEMP 98
[2020-07-06] MEDS ORDERED: PROCHLORPERAZINE 5 MG TAB PO STA (22:08)
[2020-07-06] MEDS ORDERED: diphenhydrAMINE 50 MG CAP PO STA (22:08)
[2020-07-06] MEDS ORDERED: HYDROmorphone 1 MG/ML 1 ML SYRINGE IM STA (22:08)
[2020-07-06] MEDS ORDERED: predniSONE 20 MG TAB PO STA (22:08)
--- NOTE | 2020-07-06 22:09 | ED ---
Headache HPI - General Chief Complaint: Headache Stated Complaint: Migraine Time Seen by Provider: 07/06/20 21:52 Mode of arrival: wheelchair Limitations: no limitations - Related Data Home Medications Medication Instructions Recorded Confirmed Medroxyprogesterone Acetate 150 mg IM Q84D 11/22/13 04/13/20 [Depo-Provera] rOPINIRole HCL [Requip] 1 mg PO QAM 11/22/13 04/13/20 Pentosan Polysulfate Sodium 100 mg PO BID 02/10/15 04/13/20 [Elmiron] HYDROcodone/APAP 7.5-325MG [[place] 1 tab PO BID PRN 07/20/16 04/13/20 7.5-325] Paliperidone IM Pt Own [Invega 117 mg IM Q28D 07/20/16 04/13/20 Sustenna] amantadine HCL [Symmetrel] 100 mg PO BID 11/21/16 04/13/20 Albuterol Sulfate [Proair Hfa] 2 puff INHALATION RT-BID PRN 01/13/18 04/13/20 Butalb/Acetaminophen/Caffeine 1 tab PO Q8H PRN 01/13/18 04/13/20 [Fioricet 50-325-40] Fluticasone Propionate [Flovent 2 puff INHALATION RT-DAILY PRN 01/13/18 04/13/20 Hfa 110 mcg] Gemfibrozil [Lopid] 600 mg PO BID 01/13/18 04/13/20 ondansetron HCL [Zofran] 8 mg PO TID PRN 01/13/18 04/13/20 tiZANidine HCL [Zanaflex] 4 mg PO Q6H PRN 01/13/18 04/13/20 Gabapentin [Neurontin] 300 mg PO HS 03/11/18 04/13/20 Fentanyl Pain Pump 1 dose INTRATHECA CONTINUOUS 09/16/19 04/13/20 Gabapentin [Neurontin] 600 mg PO TID 09/16/19 04/13/20 Omeprazole [PriLOSEC] 40 mg PO DAILY 09/16/19 04/13/20 rOPINIRole HCL [Requip] 2 mg PO HS 09/16/19 04/13/20 traZODone HCL 200 mg PO HS 09/16/19 04/13/20 hydrOXYzine pamoate [hydrOXYzine 25 mg PO BID 04/13/20 04/13/20 PAMOATE] Allergies Allergy/AdvReac Type Severity Reaction Status Date / Time azithromycin Allergy Rash/Hives Verified 07/06/20 21:15 [From Zithromax Z-Mehrdad] cimetidine [From Tagamet] Allergy Rash/Hives Verified 07/06/20 21:15 ether [Ether] Allergy Anaphylaxis Verified 07/06/20 21:15 Fish Containing Products Allergy Anaphylaxis Verified 07/06/20 21:15 [Fish] ketorolac tromethamine Allergy Rash/Hives Verified 07/06/20 21:15 [From Toradol] ziprasidone HCl [From Geodon] Allergy Extrapyramidal Verified 07/06/20 21:15 Symptoms fluphenazine HCl AdvReac Extrapyramidal Verified 07/06/20 21:15 [From Prolixin] Symptoms haloperidol [From Haldol] AdvReac Extrapyramidal Verified 07/06/20 21:15 Symptoms Sulfa (Sulfonamide AdvReac Nausea & Verified 07/06/20 21:15 Antibiotics) Vomiting Review of Systems ROS Statement: Those systems with pertinent positive or pertinent negative responses have been documented in the HPI. ROS Other: All systems not noted in ROS Statement are negative. Past Medical History Past Medical History: Asthma, GERD/Reflux, Hyperlipidemia, Musculoskeletal Disorder, Neurologic Disorder, Osteoarthritis (OA), Seizure Disorder Additional Past Medical History / Comment(s): RSD-DERIC FEET, INTERSTITIAL CYSTITIS, BRONCHITIS, HEMORRHOIDS,MIGRAINES, INSOMNIA. VERTIGO, last seizure 4 years ago, complex regional pain syndrome, RLS. History of Any Multi-Drug Resistant Organisms: MRSA Date of last positivie culture/infection: 04/20/15 MDRO Source:: Left Axilla Past Surgical History: Adenoidectomy, Back Surgery, Cholecystectomy, Orthopedic Surgery, Tonsillectomy Additional Past Surgical History / Comment(s): bilateral foot surgery d/t rsd, numerous pain clinic procedures, nerve stimulator in back to tx RSD placed in Nov 11 2015, pain pump placement, Past Anesthesia/Blood Transfusion Reactions: Previous Problems w/ Anesthesia Additional Past Anesthesia/Blood Transfusion Reaction / Comment(s): Pt recieved blood when she was 2 yrs old after tonsillectomy. WHEN BABY HEART STOPPED TWICE- PT STATED SHE WAS ALLERGIC TO ETHER. Past Psychological History: Anxiety, Bipolar, Depression, PTSD Smoking Status: Never smoker Past Alcohol Use History: None Reported Past Drug Use History: Marijuana - Past Family History Father History Unknown: Yes Family Medical History: Diabetes Mellitus Mother Family Medical History: Cancer, CVA/TIA, Diabetes Mellitus, Myocardial Infarction ([place]) Additional Family Medical History / Comment(s): Mother has had 5 CVAs, 3 MIs and UTERINE CANCER General Exam Limitations: no limitations Course Vital Signs 07/06/20 21:12 Temperature 98 F Pulse Rate 93 Respiratory 16 Rate Blood Pressure 148/100 O2 Sat by Pulse 96 Oximetry Disposition Clinical Impression: Migraine headache, Status migrainosus Disposition: HOME SELF-CARE Condition: Good Instructions (If sedation given, give patient instructions): Acute Headache (ED) Is patient prescribed a controlled substance at d/c from ED?: No Referrals: China Doyle MD [Primary Care Provider] - 1-2 days
== END 2020-07-06 22:58 | disposition home or self-care (01) ==
LOC: EC 19:23
DX: G43.901 Migraine, unspecified, not intractable, with status migrainosus (principal); J45.909 Unspecified asthma, uncomplicated; E78.5 Hyperlipidemia, unspecified; K21.9 Gastro-esophageal reflux disease without esophagitis; M19.90 Unspecified osteoarthritis, unspecified site; F41.9 Anxiety disorder, unspecified; F32.9 Major depressive disorder, single episode, unspecified; F12.90 Cannabis use, unspecified, uncomplicated
CPT/HCPCS: 99283; 96372; S0183; J1170; J7512

== ENCOUNTER 2020-07-22 16:14 | Emergency (ER) | payer MEDICARE, OTHER ==
[2020-07-22 16:37] VITALS: BP 132/84; PULSE 102; RESP 18; TEMP 98.3
[2020-07-22] MEDS ORDERED: HYDROmorphone 1 MG/ML 1 ML SYRINGE IM STA (16:54)
--- NOTE | 2020-07-22 16:55 | ED ---
Extremity Problem HPI - General Chief complaint: Extremity Problem,Nontraumatic Stated complaint: bilateral leg pain Time Seen by Provider: 07/22/20 16:41 Source: patient Mode of arrival: ambulatory Limitations: no limitations - History of Present Illness Initial comments: 34-year-old female patient presents to the emergency department today for evaluation of bilateral foot pain. Patient has history of complex regional pain syndrome. States that she generally takes home meds which are not helping. Should see her neurologist this morning had a shot of Toradol. States it didn't seem to help. Patient denies any fever or chills. Denies any new injury. States her pain is similar to her previous symptoms. - Related Data Home Medications Medication Instructions Recorded Confirmed Medroxyprogesterone Acetate 150 mg IM Q84D 11/22/13 04/13/20 [Depo-Provera] rOPINIRole HCL [Requip] 1 mg PO QAM 11/22/13 04/13/20 Pentosan Polysulfate Sodium 100 mg PO BID 02/10/15 04/13/20 [Elmiron] HYDROcodone/APAP 7.5-325MG [[place] 1 tab PO BID PRN 07/20/16 04/13/20 7.5-325] Paliperidone IM Pt Own [Invega 117 mg IM Q28D 07/20/16 04/13/20 Sustenna] amantadine HCL [Symmetrel] 100 mg PO BID 11/21/16 04/13/20 Albuterol Sulfate [Proair Hfa] 2 puff INHALATION RT-BID PRN 01/13/18 04/13/20 Butalb/Acetaminophen/Caffeine 1 tab PO Q8H PRN 01/13/18 04/13/20 [Fioricet 50-325-40] Fluticasone Propionate [Flovent 2 puff INHALATION RT-DAILY PRN 01/13/18 04/13/20 Hfa 110 mcg] Gemfibrozil [Lopid] 600 mg PO BID 01/13/18 04/13/20 ondansetron HCL [Zofran] 8 mg PO TID PRN 01/13/18 04/13/20 tiZANidine HCL [Zanaflex] 4 mg PO Q6H PRN 01/13/18 04/13/20 Gabapentin [Neurontin] 300 mg PO HS 03/11/18 04/13/20 Fentanyl Pain Pump 1 dose INTRATHECA CONTINUOUS 09/16/19 04/13/20 Gabapentin [Neurontin] 600 mg PO TID 09/16/19 04/13/20 Omeprazole [PriLOSEC] 40 mg PO DAILY 09/16/19 04/13/20 rOPINIRole HCL [Requip] 2 mg PO HS 09/16/19 04/13/20 traZODone HCL 200 mg PO HS 09/16/19 04/13/20 hydrOXYzine pamoate [hydrOXYzine 25 mg PO BID 04/13/20 04/13/20 PAMOATE] Allergies Allergy/AdvReac Type Severity Reaction Status Date / Time azithromycin Allergy Rash/Hives Verified 07/22/20 16:37 [From Zithromax Z-Mehrdad] cimetidine [From Tagamet] Allergy Rash/Hives Verified 07/22/20 16:37 ether [Ether] Allergy Anaphylaxis Verified 07/22/20 16:37 Fish Containing Products Allergy Anaphylaxis Verified 07/22/20 16:37 [Fish] ketorolac tromethamine Allergy Rash/Hives Verified 07/22/20 16:37 [From Toradol] ziprasidone HCl [From Geodon] Allergy Extrapyramidal Verified 07/22/20 16:37 Symptoms fluphenazine HCl AdvReac Extrapyramidal Verified 07/22/20 16:37 [From Prolixin] Symptoms haloperidol [From Haldol] AdvReac Extrapyramidal Verified 07/22/20 16:37 Symptoms Sulfa (Sulfonamide AdvReac Nausea & Verified 07/22/20 16:37 Antibiotics) Vomiting Review of Systems ROS Statement: Those systems with pertinent positive or pertinent negative responses have been documented in the HPI. ROS Other: All systems not noted in ROS Statement are negative. Past Medical History Past Medical History: Asthma, GERD/Reflux, Hyperlipidemia, Musculoskeletal Disorder, Neurologic Disorder, Osteoarthritis (OA), Seizure Disorder Additional Past Medical History / Comment(s): RSD-DERIC FEET, INTERSTITIAL CYSTITIS, BRONCHITIS, HEMORRHOIDS,MIGRAINES, INSOMNIA. VERTIGO, last seizure 4 years ago, complex regional pain syndrome, RLS. History of Any Multi-Drug Resistant Organisms: MRSA Date of last positivie culture/infection: 04/20/15 MDRO Source:: Left Axilla Past Surgical History: Adenoidectomy, Back Surgery, Cholecystectomy, Orthopedic Surgery, Tonsillectomy Additional Past Surgical History / Comment(s): bilateral foot surgery d/t rsd, numerous pain clinic procedures, nerve stimulator in back to tx RSD placed in Nov 11 2015, pain pump placement, Past Anesthesia/Blood Transfusion Reactions: Previous Problems w/ Anesthesia Additional Past Anesthesia/Blood Transfusion Reaction / Comment(s): Pt recieved blood when she was 2 yrs old after tonsillectomy. WHEN BABY HEART STOPPED TWICE- PT STATED SHE WAS ALLERGIC TO ETHER. Past Psychological History: Anxiety, Bipolar, Depression, PTSD Smoking Status: Never smoker Past Alcohol Use History: None Reported Past Drug Use History: Marijuana - Past Family History Father History Unknown: Yes Family Medical History: Diabetes Mellitus Mother Family Medical History: Cancer, CVA/TIA, Diabetes Mellitus, Myocardial Infarction ([place]) Additional Family Medical History / Comment(s): Mother has had 5 CVAs, 3 MIs and UTERINE CANCER General Exam Limitations: no limitations General appearance: alert, in no apparent distress Respiratory exam: Present: normal lung sounds bilaterally. Absent: respiratory distress, wheezes, rales, rhonchi, stridor Cardiovascular Exam: Present: regular rate, normal rhythm, normal heart sounds. Absent: systolic murmur, diastolic murmur, rubs, gallop, clicks Extremities exam: Present: normal inspection, full ROM, normal capillary refill, other (Skin to the fetus pink, warm, dry. Cap refill less than 3 seconds. Pedal and posttibial pulses 2+ and equal bilaterally.). Absent: tenderness, pedal edema, joint swelling, calf tenderness Neurological exam: Present: alert, oriented X3, CN II-XII intact Psychiatric exam: Present: normal affect, normal mood Skin exam: Present: warm, dry, intact, normal color. Absent: rash Course Vital Signs 07/22/20 16:33 Temperature 98.3 F Pulse Rate 102 H Respiratory 18 Rate Blood Pressure 132/84 O2 Sat by Pulse 96 Oximetry Medical Decision Making - Medical Decision Making 34-year-old female patient with past medical history significant for complex regional pain syndrome presents to the emergency department today for evaluation of bilateral foot pain and results with her home pain medications. She is given a dose of IM medication here today. She'll be discharged with her neurologist as soon as possible. Return parameters were discussed in detail. She verbalizes understanding and agrees with this plan. My attending is Dr. Hoang. Disposition Clinical Impression: Leg pain Disposition: HOME SELF-CARE Condition: Good Instructions (If sedation given, give patient instructions): Leg Pain (ED) Additional Instructions: Follow up with your primary care physician for recheck in 1-2 days. Return for any new, worsening, or concerning symptoms. Is patient prescribed a controlled substance at d/c from ED?: No Referrals: China Doyle MD [Primary Care Provider] - 1-2 days Time of Disposition: 16:55
== END 2020-07-22 17:39 | disposition home or self-care (01) ==
LOC: EC 16:14
DX: M79.671 Pain in right foot (principal); M79.672 Pain in left foot; F41.9 Anxiety disorder, unspecified; F32.9 Major depressive disorder, single episode, unspecified; F12.90 Cannabis use, unspecified, uncomplicated; K21.9 Gastro-esophageal reflux disease without esophagitis; J45.909 Unspecified asthma, uncomplicated; E78.5 Hyperlipidemia, unspecified; M19.90 Unspecified osteoarthritis, unspecified site; G40.909 Epilepsy, unspecified, not intractable, without status epilepticus; G43.909 Migraine, unspecified, not intractable, without status migrainosus; Z79.51 Long term (current) use of inhaled steroids; Z79.899 Other long term (current) drug therapy
CPT/HCPCS: 99283; 96372; J1170

== ENCOUNTER 2020-07-31 20:37 | Emergency (ER) | payer MEDICARE, OTHER ==
[2020-07-31 20:56] VITALS: TEMP 97.9
[2020-07-31] MEDS ORDERED: METOCLOPRAMIDE 5 MG/ML 2 ML VIAL IVP STA (21:32)
[2020-07-31] MEDS ORDERED: diphenhydrAMINE 50 MG/ML 1 ML VIAL IVP STA (21:32)
[2020-07-31] MEDS ORDERED: SODIUM CHLORIDE 0.9% 500 ML 500 ML IV STA (21:32)
[2020-07-31] MEDS ORDERED: methylPREDNISolone SOD SUCCI 125 MG/2 ML VIAL IV STA (21:34)
--- NOTE | 2020-07-31 21:40 | ED ---
Headache HPI - General Chief Complaint: Headache Stated Complaint: Vomiting Time Seen by Provider: 07/31/20 21:11 Mode of arrival: ambulatory Limitations: no limitations - History of Present Illness Initial Comments: Patient is a 34-year-old woman with history of chronic intermittent headaches who presents with a recurrence of headache. She states that this when it started on Saturday. She did see her physician Dr. Shannon on who had tried giving her a shot of Toradol without much relief. She states that she was a little better but presents because she started having vomiting yesterday and it has continued today. The headache is not worse headache of life. It is very similar to her usual headaches just more persistent. She has associated photophobia and phonophobia. No neurologic symptoms. No neck pain or stiffness. No fever or chills. MD Complaint: headache -: days(s) Onset Description: gradual Location: right, left, frontal Severity: severe Quality: throbbing, constant Consistency: constant Improves With: nothing Worsens With: none Context: occurred at rest Associated Symptoms: nausea, vomiting, photophobia, sensitivity to sound Treatments Prior to Arrival: prescription analgesic - Related Data Home Medications Medication Instructions Recorded Confirmed Medroxyprogesterone Acetate 150 mg IM Q84D 11/22/13 04/13/20 [Depo-Provera] rOPINIRole HCL [Requip] 1 mg PO QAM 11/22/13 04/13/20 Pentosan Polysulfate Sodium 100 mg PO BID 02/10/15 04/13/20 [Elmiron] HYDROcodone/APAP 7.5-325MG [[place] 1 tab PO BID PRN 07/20/16 04/13/20 7.5-325] Paliperidone IM Pt Own [Invega 117 mg IM Q28D 07/20/16 04/13/20 Sustenna] amantadine HCL [Symmetrel] 100 mg PO BID 11/21/16 04/13/20 Albuterol Sulfate [Proair Hfa] 2 puff INHALATION RT-BID PRN 01/13/18 04/13/20 Butalb/Acetaminophen/Caffeine 1 tab PO Q8H PRN 01/13/18 04/13/20 [Fioricet 50-325-40] Fluticasone Propionate [Flovent 2 puff INHALATION RT-DAILY PRN 01/13/18 04/13/20 Hfa 110 mcg] Gemfibrozil [Lopid] 600 mg PO BID 01/13/18 04/13/20 ondansetron HCL [Zofran] 8 mg PO TID PRN 01/13/18 04/13/20 tiZANidine HCL [Zanaflex] 4 mg PO Q6H PRN 01/13/18 04/13/20 Gabapentin [Neurontin] 300 mg PO HS 03/11/18 04/13/20 Fentanyl Pain Pump 1 dose INTRATHECA CONTINUOUS 09/16/19 04/13/20 Gabapentin [Neurontin] 600 mg PO TID 09/16/19 04/13/20 Omeprazole [PriLOSEC] 40 mg PO DAILY 09/16/19 04/13/20 rOPINIRole HCL [Requip] 2 mg PO HS 09/16/19 04/13/20 traZODone HCL 200 mg PO HS 09/16/19 04/13/20 hydrOXYzine pamoate [hydrOXYzine 25 mg PO BID 04/13/20 04/13/20 PAMOATE] Allergies Allergy/AdvReac Type Severity Reaction Status Date / Time azithromycin Allergy Rash/Hives Verified 07/31/20 20:56 [From Zithromax Z-Mehrdad] cimetidine [From Tagamet] Allergy Rash/Hives Verified 07/31/20 20:56 ether [Ether] Allergy Anaphylaxis Verified 07/31/20 20:56 Fish Containing Products Allergy Anaphylaxis Verified 07/31/20 20:56 [Fish] ketorolac tromethamine Allergy Rash/Hives Verified 07/31/20 20:56 [From Toradol] ziprasidone HCl [From Geodon] Allergy Extrapyramidal Verified 07/31/20 20:56 Symptoms fluphenazine HCl AdvReac Extrapyramidal Verified 07/31/20 20:56 [From Prolixin] Symptoms haloperidol [From Haldol] AdvReac Extrapyramidal Verified 07/31/20 20:56 Symptoms Sulfa (Sulfonamide AdvReac Nausea & Verified 07/31/20 20:56 Antibiotics) Vomiting Review of Systems ROS Statement: Those systems with pertinent positive or pertinent negative responses have been documented in the HPI. ROS Other: All systems not noted in ROS Statement are negative. Constitutional: Denies: fever, chills, weakness Eyes: Denies: eye pain, vision change ENT: Denies: congestion Respiratory: Denies: cough, dyspnea Cardiovascular: Denies: chest pain, palpitations Gastrointestinal: Reports: nausea, vomiting. Denies: abdominal pain, diarrhea, hematemesis Genitourinary: Denies: dysuria, hematuria Musculoskeletal: Denies: back pain Skin: Denies: rash Neurological: Reports: headache. Denies: weakness, numbness, paresthesias, confusion Past Medical History Past Medical History: Asthma, GERD/Reflux, Hyperlipidemia, Musculoskeletal Disorder, Neurologic Disorder, Osteoarthritis (OA), Seizure Disorder Additional Past Medical History / Comment(s): RSD-DERIC FEET, INTERSTITIAL CYSTITIS, BRONCHITIS, HEMORRHOIDS,MIGRAINES, INSOMNIA. VERTIGO, last seizure 4 years ago, complex regional pain syndrome, RLS. History of Any Multi-Drug Resistant Organisms: MRSA Date of last positivie culture/infection: 04/20/15 MDRO Source:: Left Axilla Past Surgical History: Adenoidectomy, Back Surgery, Cholecystectomy, Orthopedic Surgery, Tonsillectomy Additional Past Surgical History / Comment(s): bilateral foot surgery d/t rsd, numerous pain clinic procedures, nerve stimulator in back to tx RSD placed in Nov 11 2015, pain pump placement, Past Anesthesia/Blood Transfusion Reactions: Previous Problems w/ Anesthesia Additional Past Anesthesia/Blood Transfusion Reaction / Comment(s): Pt recieved blood when she was 2 yrs old after tonsillectomy. WHEN BABY HEART STOPPED TWICE- PT STATED SHE WAS ALLERGIC TO ETHER. Past Psychological History: Anxiety, Bipolar, Depression, PTSD Smoking Status: Never smoker Past Alcohol Use History: None Reported Past Drug Use History: Marijuana - Past Family History Father History Unknown: Yes Family Medical History: Diabetes Mellitus Mother Family Medical History: Cancer, CVA/TIA, Diabetes Mellitus, Myocardial Infarction ([place]) Additional Family Medical History / Comment(s): Mother has had 5 CVAs, 3 MIs and UTERINE CANCER General Exam Limitations: no limitations General appearance: alert, in no apparent distress Head exam: Present: atraumatic, normocephalic Eye exam: Present: normal appearance. Absent: scleral icterus, conjunctival injection ENT exam: Present: normal oropharynx Neck exam: Present: normal inspection, full ROM. Absent: meningismus Respiratory exam: Present: normal lung sounds bilaterally. Absent: respiratory distress, wheezes, rales, rhonchi, stridor Cardiovascular Exam: Present: regular rate, normal rhythm, normal heart sounds. Absent: systolic murmur, diastolic murmur, rubs, gallop GI/Abdominal exam: Present: soft. Absent: tenderness Extremities exam: Present: normal inspection, normal capillary refill. Absent: pedal edema, calf tenderness Back exam: Present: normal inspection. Absent: vertebral tenderness Neurological exam: Present: alert, oriented X3, CN II-XII intact. Absent: motor sensory deficit Skin exam: Present: warm, dry, intact, normal color. Absent: rash Course Vital Signs 07/31/20 20:54 Temperature 97.9 F Pulse Rate 97 Respiratory 20 Rate Blood Pressure 146/78 O2 Sat by Pulse 98 Oximetry Disposition Clinical Impression: Migraine headache Disposition: HOME SELF-CARE Condition: Good Instructions (If sedation given, give patient instructions): Acute Headache (ED) Is patient prescribed a controlled substance at d/c from ED?: No Referrals: China Doyle MD [Primary Care Provider] - 1-2 days
[2020-07-31 23:33] VITALS: BP 142/70; PULSE 87; RESP 18
== END 2020-07-31 23:33 | disposition home or self-care (01) ==
LOC: EC 20:37
DX: G43.909 Migraine, unspecified, not intractable, without status migrainosus (principal); J45.909 Unspecified asthma, uncomplicated; E78.5 Hyperlipidemia, unspecified; M19.90 Unspecified osteoarthritis, unspecified site; F32.9 Major depressive disorder, single episode, unspecified; F41.9 Anxiety disorder, unspecified; G40.909 Epilepsy, unspecified, not intractable, without status epilepticus; K21.9 Gastro-esophageal reflux disease without esophagitis; F12.90 Cannabis use, unspecified, uncomplicated; Z87.19 Personal history of other diseases of the digestive system
CPT/HCPCS: 96374; 96375 ×2; 99283; J1200; J2765; J2930

== ENCOUNTER 2020-08-16 12:48 | Emergency (ER) | payer MEDICARE, OTHER ==
[2020-08-16 12:58] VITALS: TEMP 98.1
[2020-08-16] MEDS ORDERED: diphenhydrAMINE 50 MG/ML 1 ML VIAL IM STA (13:35)
[2020-08-16] MEDS ORDERED: KETOROLAC 15 MG/ML 1 ML VIAL IM STA (13:35)
--- NOTE | 2020-08-16 13:44 | ED ---
Extremity Problem HPI - General Chief complaint: Extremity Problem,Nontraumatic Stated complaint: bilat leg pain Time Seen by Provider: 08/16/20 13:00 Source: patient, RN notes reviewed Mode of arrival: ambulatory Limitations: no limitations - History of Present Illness Initial comments: 34-year-old well-appearing female patient presents to the emergency room, alert and oriented 4, with complaints of bilateral lower extremity pain. Patient has a 17 year history of chronic pain after bunionectomy bilateral that caused complex pain syndrome and restless leg syndrome. Patient has a pain contract with Dr. Archuleta but has been unable to reach him for 2 days. Patient states she took her daily at bedtime Kasson at 11:00 to help with pain with no relief. Patient states she does have a pain stimulator on the right side that is not working and also has a pain pump left lower abdomen with fentanyl and is not helping with her pain. Patient states has had to come to the hospital for Toradol injections but does get a rash with Toradol so she must get it with Benadryl. Patient states pain is 10 out of 10 at this time. Patient denies saddle anesthesia, has good range of motion to bilateral extremities. MD Complaint: extremity pain -: year(s) (17, worse over the last 2 days) Location: right, lower extremity History of Same: Yes Radiation: distal Severity scale (1-10): 10 Quality: sharp Consistency: constant Improves with: medication (Some relief with Neurontin, [place]on, Flexeril, Epson salt bath) Worsens with: weight bearing, other (walking) Associated Symptoms: other (Muscle spasms in thighs) - Related Data Home Medications Medication Instructions Recorded Confirmed Medroxyprogesterone Acetate 150 mg IM Q84D 11/22/13 04/13/20 [Depo-Provera] rOPINIRole HCL [Requip] 1 mg PO QAM 11/22/13 04/13/20 Pentosan Polysulfate Sodium 100 mg PO BID 02/10/15 04/13/20 [Elmiron] HYDROcodone/APAP 7.5-325MG [[place] 1 tab PO BID PRN 07/20/16 04/13/20 7.5-325] Paliperidone IM Pt Own [Invega 117 mg IM Q28D 07/20/16 04/13/20 Sustenna] amantadine HCL [Symmetrel] 100 mg PO BID 11/21/16 04/13/20 Albuterol Sulfate [Proair Hfa] 2 puff INHALATION RT-BID PRN 01/13/18 04/13/20 Butalb/Acetaminophen/Caffeine 1 tab PO Q8H PRN 01/13/18 04/13/20 [Fioricet 50-325-40] Fluticasone Propionate [Flovent 2 puff INHALATION RT-DAILY PRN 01/13/18 04/13/20 Hfa 110 mcg] Gemfibrozil [Lopid] 600 mg PO BID 01/13/18 04/13/20 ondansetron HCL [Zofran] 8 mg PO TID PRN 01/13/18 04/13/20 tiZANidine HCL [Zanaflex] 4 mg PO Q6H PRN 01/13/18 04/13/20 Gabapentin [Neurontin] 300 mg PO HS 03/11/18 04/13/20 Fentanyl Pain Pump 1 dose INTRATHECA CONTINUOUS 09/16/19 04/13/20 Gabapentin [Neurontin] 600 mg PO TID 09/16/19 04/13/20 Omeprazole [PriLOSEC] 40 mg PO DAILY 09/16/19 04/13/20 rOPINIRole HCL [Requip] 2 mg PO HS 09/16/19 04/13/20 traZODone HCL 200 mg PO HS 09/16/19 04/13/20 hydrOXYzine pamoate [hydrOXYzine 25 mg PO BID 04/13/20 04/13/20 PAMOATE] Allergies Allergy/AdvReac Type Severity Reaction Status Date / Time azithromycin Allergy Rash/Hives Verified 08/16/20 14:42 [From Zithromax Z-Mehrdad] cimetidine [From Tagamet] Allergy Rash/Hives Verified 08/16/20 14:42 ether [Ether] Allergy Anaphylaxis Verified 08/16/20 14:42 Fish Containing Products Allergy Anaphylaxis Verified 08/16/20 14:42 [Fish] ketorolac tromethamine Allergy Rash/Hives Verified 08/16/20 14:42 [From Toradol] ziprasidone HCl [From Geodon] Allergy Extrapyramidal Verified 08/16/20 14:42 Symptoms fluphenazine HCl AdvReac Extrapyramidal Verified 08/16/20 14:42 [From Prolixin] Symptoms haloperidol [From Haldol] AdvReac Extrapyramidal Verified 08/16/20 14:42 Symptoms Sulfa (Sulfonamide AdvReac Nausea & Verified 08/16/20 14:42 Antibiotics) Vomiting Review of Systems ROS Statement: Those systems with pertinent positive or pertinent negative responses have been documented in the HPI. ROS Other: All systems not noted in ROS Statement are negative. Past Medical History Past Medical History: Asthma, GERD/Reflux, Hyperlipidemia, Musculoskeletal Disorder, Neurologic Disorder, Osteoarthritis (OA), Seizure Disorder Additional Past Medical History / Comment(s): RSD-DERIC FEET, INTERSTITIAL CYSTITIS, BRONCHITIS, HEMORRHOIDS,MIGRAINES, INSOMNIA. VERTIGO, last seizure 4 years ago, complex regional pain syndrome, RLS. History of Any Multi-Drug Resistant Organisms: MRSA Date of last positivie culture/infection: 04/20/15 MDRO Source:: Left Axilla Past Surgical History: Adenoidectomy, Back Surgery, Cholecystectomy, Orthopedic Surgery, Tonsillectomy Additional Past Surgical History / Comment(s): bilateral foot surgery d/t rsd, numerous pain clinic procedures, nerve stimulator in back to tx RSD placed in Nov 11 2015, pain pump placement, Past Anesthesia/Blood Transfusion Reactions: Previous Problems w/ Anesthesia Additional Past Anesthesia/Blood Transfusion Reaction / Comment(s): Pt recieved blood when she was 2 yrs old after tonsillectomy. WHEN BABY HEART STOPPED TWICE- PT STATED SHE WAS ALLERGIC TO ETHER. Past Psychological History: Anxiety, Bipolar, Depression, PTSD Smoking Status: Never smoker Past Alcohol Use History: None Reported Past Drug Use History: Marijuana - Past Family History Father History Unknown: Yes Family Medical History: Diabetes Mellitus Mother Family Medical History: Cancer, CVA/TIA, Diabetes Mellitus, Myocardial Infarction ([place]) Additional Family Medical History / Comment(s): Mother has had 5 CVAs, 3 MIs and UTERINE CANCER General Exam Limitations: no limitations General appearance: alert, in no apparent distress Head exam: Present: atraumatic, normocephalic, normal inspection Eye exam: Present: normal appearance, PERRL, EOMI. Absent: scleral icterus, conjunctival injection, periorbital swelling ENT exam: Present: normal exam, normal oropharynx, mucous membranes moist Neck exam: Present: normal inspection, full ROM. Absent: tenderness, meningismus, lymphadenopathy, thyromegaly Respiratory exam: Present: normal lung sounds bilaterally. Absent: respiratory distress, wheezes, rales, rhonchi, stridor Cardiovascular Exam: Present: tachycardia GI/Abdominal exam: Present: soft, normal bowel sounds, other (pain pump felt left lower abd.). Absent: distended, tenderness, guarding, rebound, rigid Rectal exam: Present: deferred Extremities exam: Present: normal inspection, full ROM, normal capillary refill, other (Subungual hematoma noted to the left great toe; pain with active range of motion bilateral lower extremities). Absent: tenderness, pedal edema, joint swelling, calf tenderness Back exam: Present: normal inspection, CVA tenderness (R), other (Scoliosis mild). Absent: muscle spasm Neurological exam: Present: alert, oriented X3, CN II-XII intact Psychiatric exam: Present: normal affect, normal mood Skin exam: Present: warm, dry, intact, normal color. Absent: rash, diaphoretic Course Vital Signs 08/16/20 08/16/20 12:56 14:36 Temperature 98.1 F Pulse Rate 118 H 102 H Respiratory 20 16 Rate Blood Pressure 141/99 143/97 O2 Sat by Pulse 97 96 Oximetry Medical Decision Making - Medical Decision Making Attempted to reach Dr. Archuleta no success for chronic leg pain. Patient denies saddle anesthesia or loss of bowel or bladder. UA obtained the patient's complaints of foul-smelling urine and right CVA tenderness, negative for blood or infection. Toradol and Benadryl injection given with no relief. Patient will follow up with her primary care doctor for continuation of care, Dilaudid given as requested for pain control. Case discussed with Dr. Whalen, will discharge patient home. - Lab Data Lab Results 08/16/20 Range/Units 13:57 Urine Color Light Yellow Urine Appearance Clear (Clear) Urine pH 6.0 (5.0-8.0) Ur Specific [place] 1.015 (1.001-1.035) Urine Protein Negative (Negative) Urine Glucose (UA) Negative (Negative) Urine Ketones Negative (Negative) Urine Blood Negative (Negative) Urine Nitrite Negative (Negative) Urine Bilirubin Negative (Negative) Urine Urobilinogen <2.0 (<2.0) mg/dL Ur Leukocyte Esterase Negative (Negative) Disposition Clinical Impression: Chronic pain Disposition: HOME SELF-CARE Condition: Fair Instructions (If sedation given, give patient instructions): Chronic Pain (ED) Additional Instructions: Given Dilaudid injection for chronic pain. Follow-up with the primary care doctor and Dr. Archuleta for continuation of care. Is patient prescribed a controlled substance at d/c from ED?: No Referrals: China Doyle MD [Primary Care Provider] - 1-2 days Time of Disposition: 14:45
[2020-08-16 14:18] LABS: Appearance,Urine Clear (Clear); Bilirubin,Urine Negative (Negative); Blood,Urine Negative (Negative); Color,Urine Light Yellow; Glucose,Urine (UA) Negative (Negative); Ketones,Urine Negative (Negative); Leukocyte Esterase,Urine Negative (Negative); Nitrite,Urine Negative (Negative); Protein,Urine Negative (Negative); Specific Gravity,Urine 1.015 (1.001-1.035); Urobilinogen,Urine <2.0 mg/dL (<2.0)
[2020-08-16 14:38] VITALS: BP 143/97; PULSE 102; RESP 16
[2020-08-16] MEDS ORDERED: HYDROmorphone 0.5 MG/0.5 ML SYRINGE IM STA (14:41)
== END 2020-08-16 14:57 | disposition home or self-care (01) ==
LOC: EC 12:48
DX: G89.29 Other chronic pain (principal); M79.604 Pain in right leg; M79.605 Pain in left leg; M41.9 Scoliosis, unspecified; R10.32 Left lower quadrant pain; E78.5 Hyperlipidemia, unspecified; J45.909 Unspecified asthma, uncomplicated; G40.909 Epilepsy, unspecified, not intractable, without status epilepticus; K21.9 Gastro-esophageal reflux disease without esophagitis; G47.00 Insomnia, unspecified; Z87.19 Personal history of other diseases of the digestive system; G43.909 Migraine, unspecified, not intractable, without status migrainosus; F41.9 Anxiety disorder, unspecified; F32.9 Major depressive disorder, single episode, unspecified; F12.90 Cannabis use, unspecified, uncomplicated; Z79.3 Long term (current) use of hormonal contraceptives; Z79.51 Long term (current) use of inhaled steroids; M19.90 Unspecified osteoarthritis, unspecified site
CPT/HCPCS: 81003; 99283; 96372 ×3; J1200; J1885; J1170

== ENCOUNTER 2020-08-23 20:33 | Emergency (ER) | payer MEDICARE, OTHER ==
[2020-08-23 20:40] VITALS: BP 140/88; PULSE 107; RESP 18; TEMP 98.2
[2020-08-23] MEDS ORDERED: KETOROLAC 15 MG/ML 1 ML VIAL IM STA (20:59)
[2020-08-23] MEDS ORDERED: HYDROcodone/APAP 10-325MG 1 EACH TAB PO ONE (21:00)
[2020-08-23] MEDS ORDERED: diphenhydrAMINE 50 MG/ML 1 ML VIAL IM STA (21:00)
--- NOTE | 2020-08-23 21:05 | ED ---
Extremity Problem HPI - General Chief complaint: Extremity Problem,Nontraumatic Stated complaint: Leg Pain Time Seen by Provider: 08/23/20 20:41 Source: patient Mode of arrival: ambulatory Limitations: no limitations - History of Present Illness Initial comments: Patient is a 34-year-old female presenting to the emergency Department with complaints of chronic leg pain. Patient states she's been dealing with this for many years, she does see a pain specialist this, she did have an appointment with Dr. Shannon today, they discuss increasing her Corbin medication and he was post a call some in for her today but he did not. She tried contacting the aftercare hours 3 to separate occasions in the distal to come into the ER. She denies any falls or changes in her pain. She states she does have a pain pump however it is not working right. She denies any fevers or chills, no bowel or bladder incontinence. She states her pain is her same chronic pain. She has no further complaints at this time. Patient states she normally takes Corbin 7.50 did discuss increasing her doses to tens. - Related Data Home Medications Medication Instructions Recorded Confirmed Medroxyprogesterone Acetate 150 mg IM Q84D 11/22/13 08/16/20 [Depo-Provera] rOPINIRole HCL [Requip] 1 mg PO BID@0900,1200 11/22/13 08/16/20 Pentosan Polysulfate Sodium 100 mg PO DAILY 02/10/15 08/16/20 [Elmiron] HYDROcodone/APAP 7.5-325MG [[place] 1 tab PO BID 07/20/16 08/16/20 7.5-325] Paliperidone IM Pt Own [Invega 117 mg IM Q28D 07/20/16 08/16/20 Sustenna] amantadine HCL [Symmetrel] 100 mg PO BID 11/21/16 08/16/20 Albuterol Sulfate [Proair Hfa] 2 puff INHALATION RT-QID PRN 01/13/18 08/16/20 Butalb/Acetaminophen/Caffeine 1 tab PO Q8H PRN 01/13/18 08/16/20 [Fioricet 50-325-40] Fluticasone Propionate [Flovent 1 puff INHALATION RT-BID 01/13/18 08/16/20 Hfa 110 mcg] Gemfibrozil [Lopid] 600 mg PO BID 01/13/18 08/16/20 Gabapentin [Neurontin] 300 mg PO TID 03/11/18 08/16/20 Gabapentin [Neurontin] 600 mg PO TID 09/16/19 08/16/20 Omeprazole [PriLOSEC] 40 mg PO DAILY 09/16/19 08/16/20 rOPINIRole HCL [Requip] 2 mg PO HS 09/16/19 08/16/20 traZODone HCL 300 mg PO HS 09/16/19 08/16/20 hydrOXYzine pamoate [hydrOXYzine 25 mg PO BID 04/13/20 08/16/20 PAMOATE] Cyclobenzaprine [Flexeril] 10 mg PO TID PRN 08/16/20 08/16/20 Fentanyl/Bupivcaine Pain Pump 1 dose INTRATHECA CONTINUOUS 08/16/20 08/16/20 Ondansetron HCl [Zofran] 4 mg PO Q8H PRN 08/16/20 08/16/20 Allergies Allergy/AdvReac Type Severity Reaction Status Date / Time azithromycin Allergy Rash/Hives Verified 08/23/20 20:39 [From Zithromax Z-Mehrdad] cimetidine [From Tagamet] Allergy Rash/Hives Verified 08/23/20 20:39 ether [Ether] Allergy Anaphylaxis Verified 08/23/20 20:39 Fish Containing Products Allergy Anaphylaxis Verified 08/23/20 20:39 [Fish] ketorolac tromethamine Allergy Rash/Hives Verified 08/23/20 20:39 [From Toradol] morphine Allergy Unknown Verified 08/23/20 20:39 ziprasidone HCl [From Geodon] Allergy Extrapyramidal Verified 08/23/20 20:39 Symptoms fluphenazine HCl AdvReac Extrapyramidal Verified 08/23/20 20:39 [From Prolixin] Symptoms haloperidol [From Haldol] AdvReac Extrapyramidal Verified 08/23/20 20:39 Symptoms Sulfa (Sulfonamide AdvReac Nausea & Verified 08/23/20 20:39 Antibiotics) Vomiting Review of Systems ROS Statement: Those systems with pertinent positive or pertinent negative responses have been documented in the HPI. ROS Other: All systems not noted in ROS Statement are negative. Past Medical History Past Medical History: Asthma, GERD/Reflux, Hyperlipidemia, Musculoskeletal Disorder, Neurologic Disorder, Osteoarthritis (OA), Seizure Disorder Additional Past Medical History / Comment(s): RSD-DERIC FEET, INTERSTITIAL CYSTITIS, BRONCHITIS, HEMORRHOIDS,MIGRAINES, INSOMNIA. VERTIGO, last seizure 4 years ago, complex regional pain syndrome, RLS. History of Any Multi-Drug Resistant Organisms: MRSA Date of last positivie culture/infection: 04/20/15 MDRO Source:: Left Axilla Past Surgical History: Adenoidectomy, Back Surgery, Cholecystectomy, Orthopedic Surgery, Tonsillectomy Additional Past Surgical History / Comment(s): bilateral foot surgery d/t rsd, numerous pain clinic procedures, nerve stimulator in back to tx RSD placed in Nov 11 2015, pain pump placement, Past Anesthesia/Blood Transfusion Reactions: Previous Problems w/ Anesthesia Additional Past Anesthesia/Blood Transfusion Reaction / Comment(s): Pt recieved blood when she was 2 yrs old after tonsillectomy. WHEN BABY HEART STOPPED TWICE- PT STATED SHE WAS ALLERGIC TO ETHER. Past Psychological History: Anxiety, Bipolar, Depression, PTSD Smoking Status: Never smoker Past Alcohol Use History: None Reported Past Drug Use History: Marijuana - Past Family History Father History Unknown: Yes Family Medical History: Diabetes Mellitus Mother Family Medical History: Cancer, CVA/TIA, Diabetes Mellitus, Myocardial Infarction ([place]) Additional Family Medical History / Comment(s): Mother has had 5 CVAs, 3 MIs and UTERINE CANCER General Exam - General Exam Comments Initial Comments: GENERAL: Patient is well-developed and well-nourished. Patient is nontoxic and in mild distress. HEAD: Atraumatic, normocephalic. EYES: Pupils equal round and reactive to light, extraocular movements intact, sclera anicteric, conjunctiva are normal. Eyelids were unremarkable. ENT: TMs normal, nares patent, oropharynx clear without exudates. Moist mucous membranes. NECK: Normal range of motion, supple without lymphadenopathy or JVD. LUNGS: Unlabored respirations. Breath sounds clear to auscultation bilaterally and equal. No wheezes rales or rhonchi. HEART: Regular rate and rhythm without murmurs, rubs or gallops. ABDOMEN: Soft, nontender, normoactive bowel sounds. No guarding, no rebound. No masses appreciated. : Deferred MUSCULOSKELETAL: Normal extremities with adequate strength and normal range of motion, no pitting or edema. No clubbing or cyanosis. Low back pain with palpation, chronic leg pain. NEUROLOGICAL: Patient is alert and oriented x 3. Motor and sensory are also intact. Cranial nerves II through XII grossly intact. Symmetrical smile. Normal speech, normal gait. Sensation is equal and bilateral lower legs. PSYCH: Normal mood, normal affect. SKIN: Warm, Dry, normal turgor, no rashes or lesions noted. Limitations: no limitations Course Vital Signs 08/23/20 20:36 Temperature 98.2 F Pulse Rate 107 H Respiratory 18 Rate Blood Pressure 140/88 O2 Sat by Pulse 96 Oximetry Medical Decision Making - Medical Decision Making Patient is a 34-year-old female here for chronic leg pain, requesting pain medication. She states her doctor did not send and the medication today as he was supposed to. She tried contacting aftercare hours without success. Her vitals are stable, her pain is the same pain she always has, no new falls or trauma. Patient normally takes Corbin 7.5's. I discussed with patient that we will give her a shot of Toradol and Benadryl today and I will give her a tablet of Corbin today in the ER and I will give her one extra to take home with her said she can take either this evening or first thing tomorrow morning. Then she can contact her physician for her prescription. Her exam revealed no acute neuro deficits, no new changes. She is stable for discharge and she is in agreement with this plan of care. Disposition Clinical Impression: Chronic pain syndrome Disposition: HOME SELF-CARE Condition: Stable Instructions (If sedation given, give patient instructions): Chronic Pain (ED) Additional Instructions: Please return to the Emergency Department if symptoms worsen or any other concerns. Follow-up with your pain management physician as discussed. Is patient prescribed a controlled substance at d/c from ED?: No Referrals: China Doyle MD [Primary Care Provider] - 1-2 days Time of Disposition: 21:04
== END 2020-08-23 21:15 | disposition home or self-care (01) ==
LOC: EC 20:33
DX: G89.4 Chronic pain syndrome (principal); M54.5 Low back pain; J45.909 Unspecified asthma, uncomplicated; E78.5 Hyperlipidemia, unspecified; M19.90 Unspecified osteoarthritis, unspecified site; F32.9 Major depressive disorder, single episode, unspecified; F12.90 Cannabis use, unspecified, uncomplicated; G40.909 Epilepsy, unspecified, not intractable, without status epilepticus; Z90.49 Acquired absence of other specified parts of digestive tract; Z90.09 Acquired absence of other part of head and neck
CPT/HCPCS: 99283; 96372 ×2; J1200; J1885

== ENCOUNTER 2020-08-31 12:16 | Emergency (ER) | payer MEDICARE, OTHER ==
[2020-08-31 12:33] VITALS: RESP 18
[2020-08-31] MEDS ORDERED: IBUPROFEN 600 MG TAB PO STA (13:17)
[2020-08-31] MEDS ORDERED: ACETAMINOPHEN TAB 500 MG TAB PO STA (13:17)
--- NOTE | 2020-08-31 13:26 | ED ---
General Adult HPI - General Chief complaint: Chest Pain Stated complaint: Chest Pain Time Seen by Provider: 08/31/20 12:30 Source: patient, RN notes reviewed, old records reviewed Mode of arrival: wheelchair Limitations: no limitations - History of Present Illness Initial comments: This is a 34-year-old female presents emergency Department stating that she had her second COVID vaccination shot yesterday. Patient states shortly thereafter she started having some achiness having a mild headache and some chest pain. Patient denies any shortness of breath. Patient states she doesn't believe she has a fever. Patient states she doesn't ever have the chills. Patient denies abdominal pain patient denies nausea or vomiting. Patient states she has c hronic leg pain for which she has a pain pump. - Related Data Home Medications Medication Instructions Recorded Confirmed Medroxyprogesterone Acetate 150 mg IM Q84D 11/22/13 08/31/20 [Depo-Provera] rOPINIRole HCL [Requip] 1 mg PO BID@0900,1200 11/22/13 08/31/20 Pentosan Polysulfate Sodium 100 mg PO DAILY 02/10/15 08/31/20 [Elmiron] HYDROcodone/APAP 7.5-325MG [[place] 1 tab PO BID 07/20/16 08/31/20 7.5-325] Paliperidone IM Pt Own [Invega 117 mg IM Q28D 07/20/16 08/31/20 Sustenna] amantadine HCL [Symmetrel] 100 mg PO BID 11/21/16 08/31/20 Albuterol Sulfate [Proair Hfa] 2 puff INHALATION RT-QID PRN 01/13/18 08/31/20 Butalb/Acetaminophen/Caffeine 1 tab PO Q8H PRN 01/13/18 08/31/20 [Fioricet 50-325-40] Fluticasone Propionate [Flovent 1 puff INHALATION RT-BID 01/13/18 08/31/20 Hfa 110 mcg] Gemfibrozil [Lopid] 600 mg PO BID 01/13/18 08/31/20 Gabapentin [Neurontin] 300 mg PO TID 03/11/18 08/31/20 Gabapentin [Neurontin] 600 mg PO TID 09/16/19 08/31/20 Omeprazole [PriLOSEC] 40 mg PO DAILY 09/16/19 08/31/20 rOPINIRole HCL [Requip] 2 mg PO HS 09/16/19 08/31/20 traZODone HCL 300 mg PO HS 09/16/19 08/31/20 hydrOXYzine pamoate [hydrOXYzine 25 mg PO BID 04/13/20 08/31/20 PAMOATE] Cyclobenzaprine [Flexeril] 10 mg PO TID PRN 08/16/20 08/31/20 Fentanyl/Bupivcaine Pain Pump 1 dose INTRATHECA CONTINUOUS 08/16/20 08/31/20 Allergies Allergy/AdvReac Type Severity Reaction Status Date / Time azithromycin Allergy Rash/Hives Verified 08/31/20 13:26 [From Zithromax Z-Mehrdad] cimetidine [From Tagamet] Allergy Rash/Hives Verified 08/31/20 13:26 ether [Ether] Allergy Anaphylaxis Verified 08/31/20 13:26 Fish Containing Products Allergy Anaphylaxis Verified 08/31/20 13:26 [Fish] ketorolac tromethamine Allergy Rash/Hives Verified 08/31/20 13:26 [From Toradol] morphine Allergy Unknown Verified 08/31/20 13:26 ziprasidone HCl [From Geodon] Allergy Extrapyramidal Verified 08/31/20 13:26 Symptoms fluphenazine HCl AdvReac Extrapyramidal Verified 08/31/20 13:26 [From Prolixin] Symptoms haloperidol [From Haldol] AdvReac Extrapyramidal Verified 08/31/20 13:26 Symptoms Sulfa (Sulfonamide AdvReac Nausea & Verified 08/31/20 13:26 Antibiotics) Vomiting Review of Systems ROS Statement: Those systems with pertinent positive or pertinent negative responses have been documented in the HPI. ROS Other: All systems not noted in ROS Statement are negative. Past Medical History Past Medical History: Asthma, GERD/Reflux, Hyperlipidemia, Musculoskeletal Disorder, Neurologic Disorder, Osteoarthritis (OA), Seizure Disorder Additional Past Medical History / Comment(s): RSD-DERIC FEET, INTERSTITIAL CYSTITIS, BRONCHITIS, HEMORRHOIDS,MIGRAINES, INSOMNIA. VERTIGO, last seizure 4 years ago, complex regional pain syndrome, RLS. History of Any Multi-Drug Resistant Organisms: MRSA Date of last positivie culture/infection: 04/20/15 MDRO Source:: Left Axilla Past Surgical History: Adenoidectomy, Back Surgery, Cholecystectomy, Orthopedic Surgery, Tonsillectomy Additional Past Surgical History / Comment(s): bilateral foot surgery d/t rsd, numerous pain clinic procedures, nerve stimulator in back to tx RSD placed in Nov 11 2015, pain pump placement, Past Anesthesia/Blood Transfusion Reactions: Previous Problems w/ Anesthesia Additional Past Anesthesia/Blood Transfusion Reaction / Comment(s): Pt recieved blood when she was 2 yrs old after tonsillectomy. WHEN BABY HEART STOPPED TWICE- PT STATED SHE WAS ALLERGIC TO ETHER. Past Psychological History: Anxiety, Bipolar, Depression, PTSD Smoking Status: Never smoker Past Alcohol Use History: None Reported Past Drug Use History: Marijuana - Past Family History Father History Unknown: Yes Family Medical History: Diabetes Mellitus Mother Family Medical History: Cancer, CVA/TIA, Diabetes Mellitus, Myocardial Infarction ([place]) Additional Family Medical History / Comment(s): Mother has had 5 CVAs, 3 MIs and UTERINE CANCER General Exam - General Exam Comments Initial Comments: GENERAL: Patient is well-developed and well-nourished. Patient is nontoxic and well- hydrated and is in mild distress. Patient has a temperature 100.2 ENT: Neck is soft and supple. No significant lymphadenopathy is noted. Oropharynx is clear. Moist mucous membranes. Neck has full range of motion without eliciting any pain. EYES: The sclera were anicteric and conjunctiva were pink and moist. Extraocular movements were intact and pupils were equal round and reactive to light. Eyelids were unremarkable. PULMONARY: Unlabored respirations. Good breath sounds bilaterally. No audible rales rhonchi or wheezing was noted. CARDIOVASCULAR: There is a regular rate and rhythm without any murmurs gallops or rubs. ABDOMEN: Soft and nontender with normal bowel sounds. SKIN: Skin is clear with no lesions or rashes and otherwise unremarkable. NEUROLOGIC: Patient is alert and oriented x3. Cranial nerves II through XII are grossly intact. Motor and sensory are also intact. Normal speech, volume and content. Symmetrical smile. MUSCULOSKELETAL: Normal extremities with adequate strength and full range of motion. No lower extremity swelling or edema. No calf tenderness. LYMPHATICS: No significant lymphadenopathy is noted PSYCHIATRIC: Normal psychiatric evaluation. Limitations: no limitations Course Vital Signs 08/31/20 08/31/20 12:30 13:19 Temperature 98.2 F 100.2 F H Pulse Rate 101 H 98 Respiratory 18 18 Rate Blood Pressure 132/90 143/106 O2 Sat by Pulse 98 96 Oximetry Medical Decision Making - Medical Decision Making EKG shows sinus tachycardia at 104 bpm DE interval 256 QRS is 62 QT interval is 326 QTC is 428. Patient's EKG shows no ST segment elevation or depression. Chest x-ray shows no acute abnormalities. I gave the patient Tylenol emergency department and her fever came down and she stated she was feeling considerably better. - Lab Data Result diagrams: 08/31/20 12:49 08/31/20 12:49 Lab Results 08/31/20 08/31/20 08/31/20 Range/Units 12:49 12:49 12:49 WBC 8.1 (3.8-10.6) k/uL RBC 4.82 (3.80-5.40) m/uL Hgb 14.7 (11.4-16.0) gm/dL Hct 41.2 (34.0-46.0) % MCV 85.5 (80.0-100.0) fL MCH 30.4 (25.0-35.0) pg MCHC 35.6 (31.0-37.0) g/dL RDW 12.3 (11.5-15.5) % Plt Count 226 (150-450) k/uL MPV 6.8 Neutrophils % 80 % Lymphocytes % 11 % Monocytes % 6 % Eosinophils % 1 % Basophils % 1 % Neutrophils # 6.5 (1.3-7.7) k/uL Lymphocytes # 0.9 L (1.0-4.8) k/uL Monocytes # 0.5 (0-1.0) k/uL Eosinophils # 0.1 (0-0.7) k/uL Basophils # 0.0 (0-0.2) k/uL Sodium 135 L (137-145) mmol/L Potassium 4.0 (3.5-5.1) mmol/L Chloride 99 (98-107) mmol/L Carbon Dioxide 25 (22-30) mmol/L Anion Gap 11 mmol/L BUN 10 (7-17) mg/dL Creatinine 0.70 (0.52-1.04) mg/dL Est GFR (CKD-EPI)AfAm >90 (>60 ml/min/1.73 sqM) Est GFR (CKD-EPI)NonAf >90 (>60 ml/min/1.73 sqM) Glucose 112 H (74-99) mg/dL Calcium 10.2 (8.4-10.2) mg/dL Total Bilirubin 0.2 (0.2-1.3) mg/dL AST 17 (14-36) U/L ALT 9 (4-34) U/L Alkaline Phosphatase 134 H (38-126) U/L Troponin I <0.012 (0.000-0.034) ng/mL Total Protein 6.9 (6.3-8.2) g/dL Albumin 4.8 (3.5-5.0) g/dL Disposition Clinical Impression: Vaccine reaction Disposition: HOME SELF-CARE Condition: Good Instructions (If sedation given, give patient instructions): Fever in Adults (ED) Additional Instructions: Patient should take Tylenol when necessary for fever. Patient returns as any difficulty breathing or shortness of breath. Is patient prescribed a controlled substance at d/c from ED?: No Referrals: China Doyle MD [Primary Care Provider] - 1-2 days Time of Disposition: 15:10
[2020-08-31 13:45] LABS: Basophils % (A) 1 %; Eosinophils # (A) 0.1 k/uL (0-0.7); Eosinophils % (A) 1 %; HCT 41.2 % (34.0-46.0); HGB 14.7 gm/dL (11.4-16.0); Lymphocytes # (A) 0.9 k/uL (1.0-4.8); Lymphocytes % (A) 11 %; MCH 30.4 pg (25.0-35.0); MCHC 35.6 g/dL (31.0-37.0); MCV 85.5 fL (80.0-100.0); Mean Platelet Volume 6.8; Monocytes # (A) 0.5 k/uL (0-1.0); Monocytes % (A) 6 %; Neutrophils # (A) 6.5 k/uL (1.3-7.7); Neutrophils % (A) 80 %; Platelet Count 226 k/uL (150-450); RBC 4.82 m/uL (3.80-5.40); RDW 12.3 % (11.5-15.5); WBC 8.1 k/uL (3.8-10.6)
[2020-08-31 13:56] LABS: ALT 9 U/L (4-34); AST 17 U/L (14-36); African American GFR (CKD) >90 (>60 ml/min/1.73 sqM); Albumin 4.8 g/dL (3.5-5.0); Alkaline Phosphatase 134 U/L (38-126); Anion Gap 11 mmol/L; Blood Urea Nitrogen 10 mg/dL (7-17); Calcium 10.2 mg/dL (8.4-10.2); Carbon Dioxide 25 mmol/L (22-30); Chloride 99 mmol/L (98-107); Glucose 112 mg/dL (74-99); Non-African American GFR(CKD) >90 (>60 ml/min/1.73 sqM); Sodium 135 mmol/L (137-145); Total Bilirubin 0.2 mg/dL (0.2-1.3); Total Protein 6.9 g/dL (6.3-8.2)
--- NOTE | 2020-08-31 13:59 | XR ---
EXAMINATION TYPE: XR chest 2V DATE OF EXAM: 08/31/2020 COMPARISON: Chest x-ray March 14, 2018 HISTORY: Difficulty in breathing and fever. TECHNIQUE: Frontal and lateral views of the chest are obtained. FINDINGS: Improved inspiration current study. There is no suspicious new focal air space opacity, pl eural effusion, or pneumothorax seen. The cardiac silhouette size remains within normal limits. Spin al stimulator device near thoracolumbar junction is redemonstrated. Cholecystectomy clips are noted. IMPRESSION: No acute pulmonary process currently.
[2020-08-31 15:31] VITALS: BP 134/88; PULSE 89; TEMP 98.7
== END 2020-08-31 15:31 | disposition home or self-care (01) ==
LOC: EC 12:16
DX: R50.9 Fever, unspecified (principal); T50.B95A Adverse effect of other viral vaccines, initial encounter; G40.909 Epilepsy, unspecified, not intractable, without status epilepticus; J45.909 Unspecified asthma, uncomplicated; E78.5 Hyperlipidemia, unspecified; M19.90 Unspecified osteoarthritis, unspecified site; F32.9 Major depressive disorder, single episode, unspecified; F12.90 Cannabis use, unspecified, uncomplicated; G25.81 Restless legs syndrome; N30.10 Interstitial cystitis (chronic) without hematuria; K21.9 Gastro-esophageal reflux disease without esophagitis; Z90.49 Acquired absence of other specified parts of digestive tract; Z90.09 Acquired absence of other part of head and neck
CPT/HCPCS: 36415; 71046; 80053; 84484; 85025; 93005; 99285

== ENCOUNTER 2020-09-12 17:23 | Emergency (ER) | payer MEDICARE, OTHER ==
[2020-09-12 17:32] VITALS: BP 118/82; PULSE 89; RESP 18; TEMP 97.8
[2020-09-12] MEDS ORDERED: HYDROmorphone 0.5 MG/0.5 ML SYRINGE IM STA (17:56)
--- NOTE | 2020-09-12 17:59 | ED ---
General Adult HPI - General Chief complaint: Extremity Problem,Nontraumatic Stated complaint: leg pain Time Seen by Provider: 09/12/20 17:40 Source: patient Mode of arrival: ambulatory Limitations: no limitations - History of Present Illness Initial comments: Dictation was produced using [employer] dictation software. please excuse any grammatical, word or spelling errors. Chief Complaint: 34-year-old female with past medical history of complex regional pain syndrome presents to emergency department for neuropathic pain History of Present Illness: 34-year-old female she has extensive history of chronic pain. She has history of pain pump, back stimulator. She went to her neurologists, pain specialist today and received a Toradol shot for exacerbation of her neuropathy pain. He said she waited several hours and her symptoms and really improved. Skin to the emergency department for some help with pain control. She states that her symptoms are typical of her usual neuropathy pain. She has no other complaints at this time. The ROS documented in this emergency department record has been reviewed and confirmed by me. Those systems with pertinent positive or negative responses have been documented in the HPI. All other systems are other negative and/or noncontributory. PHYSICAL EXAM: General Impression: Alert and oriented x3, not in acute distress HEENT: Normocephalic atraumatic, extra-ocular movements intact, pupils equal and reactive to light bilaterally, mucous membranes moist. Cardiovascular: Heart regular rate and rhythm Chest: Able to complete full sentences, no retractions, no tachypnea Abdomen: abdomen soft, non-tender, non-distended, no organomegaly Musculoskeletal: Pulses present and equal in all extremities, no peripheral edema Motor: no focal deficits noted Neurological: CN II-XII grossly intact, no focal motor or sensory deficits noted Skin: Intact with no visualized rashes Psych: Normal affect and mood ED course: 34-year-old female presents with acute on chronic neuropathy of the lower extremities. As upon arrival are within acceptable limits. Patient's well-appearing at bedside. Patient given IV IM analgesia. She is discharged and told to follow-up with her pain specialist. - Related Data Home Medications Medication Instructions Recorded Confirmed Medroxyprogesterone Acetate 150 mg IM Q84D 11/22/13 08/31/20 [Depo-Provera] rOPINIRole HCL [Requip] 1 mg PO BID@0900,1200 11/22/13 08/31/20 Pentosan Polysulfate Sodium 100 mg PO DAILY 02/10/15 08/31/20 [Elmiron] HYDROcodone/APAP 7.5-325MG [[place] 1 tab PO BID 07/20/16 08/31/20 7.5-325] Paliperidone IM Pt Own [Invega 117 mg IM Q28D 07/20/16 08/31/20 Sustenna] amantadine HCL [Symmetrel] 100 mg PO BID 11/21/16 08/31/20 Albuterol Sulfate [Proair Hfa] 2 puff INHALATION RT-QID PRN 01/13/18 08/31/20 Butalb/Acetaminophen/Caffeine 1 tab PO Q8H PRN 01/13/18 08/31/20 [Fioricet 50-325-40] Fluticasone Propionate [Flovent 1 puff INHALATION RT-BID 01/13/18 08/31/20 Hfa 110 mcg] Gemfibrozil [Lopid] 600 mg PO BID 01/13/18 08/31/20 Gabapentin [Neurontin] 300 mg PO TID 03/11/18 08/31/20 Gabapentin [Neurontin] 600 mg PO TID 09/16/19 08/31/20 Omeprazole [PriLOSEC] 40 mg PO DAILY 09/16/19 08/31/20 rOPINIRole HCL [Requip] 2 mg PO HS 09/16/19 08/31/20 traZODone HCL 300 mg PO HS 09/16/19 08/31/20 hydrOXYzine pamoate [hydrOXYzine 25 mg PO BID 04/13/20 08/31/20 PAMOATE] Cyclobenzaprine [Flexeril] 10 mg PO TID PRN 08/16/20 08/31/20 Fentanyl/Bupivcaine Pain Pump 1 dose INTRATHECA CONTINUOUS 08/16/20 08/31/20 Allergies Allergy/AdvReac Type Severity Reaction Status Date / Time azithromycin Allergy Rash/Hives Verified 09/12/20 17:32 [From Zithromax Z-Mehrdad] cimetidine [From Tagamet] Allergy Rash/Hives Verified 09/12/20 17:32 ether [Ether] Allergy Anaphylaxis Verified 09/12/20 17:32 Fish Containing Products Allergy Anaphylaxis Verified 09/12/20 17:32 [Fish] ketorolac tromethamine Allergy Rash/Hives Verified 09/12/20 17:32 [From Toradol] morphine Allergy Unknown Verified 09/12/20 17:32 ziprasidone HCl [From Geodon] Allergy Extrapyramidal Verified 09/12/20 17:32 Symptoms fluphenazine HCl AdvReac Extrapyramidal Verified 09/12/20 17:32 [From Prolixin] Symptoms haloperidol [From Haldol] AdvReac Extrapyramidal Verified 09/12/20 17:32 Symptoms Sulfa (Sulfonamide AdvReac Nausea & Verified 09/12/20 17:32 Antibiotics) Vomiting Review of Systems ROS Statement: Those systems with pertinent positive or pertinent negative responses have been documented in the HPI. ROS Other: All systems not noted in ROS Statement are negative. Past Medical History Past Medical History: Asthma, GERD/Reflux, Hyperlipidemia, Musculoskeletal Disorder, Neurologic Disorder, Osteoarthritis (OA), Seizure Disorder Additional Past Medical History / Comment(s): RSD-DERIC FEET, INTERSTITIAL CYSTITIS, BRONCHITIS, HEMORRHOIDS,MIGRAINES, INSOMNIA. VERTIGO, last seizure 4 years ago, complex regional pain syndrome, RLS. History of Any Multi-Drug Resistant Organisms: MRSA Date of last positivie culture/infection: 04/20/15 MDRO Source:: Left Axilla Past Surgical History: Adenoidectomy, Back Surgery, Cholecystectomy, Orthopedic Surgery, Tonsillectomy Additional Past Surgical History / Comment(s): bilateral foot surgery d/t rsd, numerous pain clinic procedures, nerve stimulator in back to tx RSD placed in Nov 11 2015, pain pump placement, Past Anesthesia/Blood Transfusion Reactions: Previous Problems w/ Anesthesia Additional Past Anesthesia/Blood Transfusion Reaction / Comment(s): Pt recieved blood when she was 2 yrs old after tonsillectomy. WHEN BABY HEART STOPPED TWICE- PT STATED SHE WAS ALLERGIC TO ETHER. Past Psychological History: Anxiety, Bipolar, Depression, PTSD Smoking Status: Never smoker Past Alcohol Use History: None Reported Past Drug Use History: Marijuana - Past Family History Father History Unknown: Yes Family Medical History: Diabetes Mellitus Mother Family Medical History: Cancer, CVA/TIA, Diabetes Mellitus, Myocardial Infarction ([place]) Additional Family Medical History / Comment(s): Mother has had 5 CVAs, 3 MIs and UTERINE CANCER General Exam Limitations: no limitations Course Vital Signs 09/12/20 17:30 Temperature 97.8 F Pulse Rate 89 Respiratory 18 Rate Blood Pressure 118/82 O2 Sat by Pulse 96 Oximetry Disposition Clinical Impression: Neuropathy Disposition: HOME SELF-CARE Condition: Good Instructions (If sedation given, give patient instructions): Abdominal Pain in Children (ED), Chronic Pain (ED) Is patient prescribed a controlled substance at d/c from ED?: No Referrals: China Doyle MD [Primary Care Provider] - 1-2 days
== END 2020-09-12 18:09 | disposition home or self-care (01) ==
LOC: EC 17:23
DX: G62.9 Polyneuropathy, unspecified (principal); J45.909 Unspecified asthma, uncomplicated; E78.5 Hyperlipidemia, unspecified; M19.90 Unspecified osteoarthritis, unspecified site; G40.909 Epilepsy, unspecified, not intractable, without status epilepticus; G43.909 Migraine, unspecified, not intractable, without status migrainosus; F31.9 Bipolar disorder, unspecified; F41.9 Anxiety disorder, unspecified; F12.90 Cannabis use, unspecified, uncomplicated; Z79.51 Long term (current) use of inhaled steroids
CPT/HCPCS: 99283; 96372; J1170

== ENCOUNTER 2020-09-14 19:41 | Emergency (ER) | payer MEDICARE, OTHER ==
[2020-09-14 19:54] VITALS: BP 137/91; PULSE 82; RESP 20; TEMP 98.1
[2020-09-14] MEDS ORDERED: HYDROmorphone 1 MG/ML 1 ML SYRINGE IVP STA (20:06)
--- NOTE | 2020-09-14 20:11 | ED ---
General Adult HPI - General Chief complaint: Back Pain/Injury Stated complaint: Bilateral Leg Pain Time Seen by Provider: 09/14/20 19:56 Source: patient, RN notes reviewed Mode of arrival: ambulatory Limitations: no limitations - History of Present Illness Initial comments: Patient is a 34-year-old female that presents to emergency department complainin g of back pain that radiates or legs. She does have a history of chronic pain syndrome with bilateral neuropathies. She does have a pain stimulator in her back. She notes that the stinger is not working. She is tried calling her pain medicine doctor and they're not return her calls. She notes that she called to ask if she could increase her [place] to several times a day but they said that would mess up her refill scheduled. She notes that she doesn't want to become emergency room to get pain relief every time when she does have a pain medicine doctor. She notes she is called several times and left voice notes over the last several weeks. She did appear to be in moderate amount of pain and distress while sitting up in bed during exam and review. She notes that the pain started low back radiates to her hips and only down to her feet. She denied any other complaints or issues at this time. Patient is informed ER cannot do chronic pain for pain. But this is her only option at this point. She denied any chest pain shortness breath headache nausea vomiting diarrhea constipation fever fatigue chills. - Related Data Home Medications Medication Instructions Recorded Confirmed Medroxyprogesterone Acetate 150 mg IM Q84D 11/22/13 08/31/20 [Depo-Provera] rOPINIRole HCL [Requip] 1 mg PO BID@0900,1200 11/22/13 08/31/20 Pentosan Polysulfate Sodium 100 mg PO DAILY 02/10/15 08/31/20 [Elmiron] HYDROcodone/APAP 7.5-325MG [[place] 1 tab PO BID 07/20/16 08/31/20 7.5-325] Paliperidone IM Pt Own [Invega 117 mg IM Q28D 07/20/16 08/31/20 Sustenna] amantadine HCL [Symmetrel] 100 mg PO BID 11/21/16 08/31/20 Albuterol Sulfate [Proair Hfa] 2 puff INHALATION RT-QID PRN 01/13/18 08/31/20 Butalb/Acetaminophen/Caffeine 1 tab PO Q8H PRN 01/13/18 08/31/20 [Fioricet 50-325-40] Fluticasone Propionate [Flovent 1 puff INHALATION RT-BID 01/13/18 08/31/20 Hfa 110 mcg] Gemfibrozil [Lopid] 600 mg PO BID 01/13/18 08/31/20 Gabapentin [Neurontin] 300 mg PO TID 03/11/18 08/31/20 Gabapentin [Neurontin] 600 mg PO TID 09/16/19 08/31/20 Omeprazole [PriLOSEC] 40 mg PO DAILY 09/16/19 08/31/20 rOPINIRole HCL [Requip] 2 mg PO HS 09/16/19 08/31/20 traZODone HCL 300 mg PO HS 09/16/19 08/31/20 hydrOXYzine pamoate [hydrOXYzine 25 mg PO BID 04/13/20 08/31/20 PAMOATE] Cyclobenzaprine [Flexeril] 10 mg PO TID PRN 08/16/20 08/31/20 Fentanyl/Bupivcaine Pain Pump 1 dose INTRATHECA CONTINUOUS 08/16/20 08/31/20 Allergies Allergy/AdvReac Type Severity Reaction Status Date / Time azithromycin Allergy Rash/Hives Verified 09/14/20 19:54 [From Zithromax Z-Mehrdad] cimetidine [From Tagamet] Allergy Rash/Hives Verified 09/14/20 19:54 ether [Ether] Allergy Anaphylaxis Verified 09/14/20 19:54 Fish Containing Products Allergy Anaphylaxis Verified 09/14/20 19:54 [Fish] ketorolac tromethamine Allergy Rash/Hives Verified 09/14/20 19:54 [From Toradol] morphine Allergy Unknown Verified 09/14/20 19:54 ziprasidone HCl [From Geodon] Allergy Extrapyramidal Verified 09/14/20 19:54 Symptoms fluphenazine HCl AdvReac Extrapyramidal Verified 09/14/20 19:54 [From Prolixin] Symptoms haloperidol [From Haldol] AdvReac Extrapyramidal Verified 09/14/20 19:54 Symptoms Sulfa (Sulfonamide AdvReac Nausea & Verified 09/14/20 19:54 Antibiotics) Vomiting Review of Systems ROS Statement: Those systems with pertinent positive or pertinent negative responses have been documented in the HPI. ROS Other: All systems not noted in ROS Statement are negative. Past Medical History Past Medical History: Asthma, GERD/Reflux, Hyperlipidemia, Musculoskeletal Disorder, Neurologic Disorder, Osteoarthritis (OA), Seizure Disorder Additional Past Medical History / Comment(s): RSD-DERIC FEET, INTERSTITIAL CYSTITIS, BRONCHITIS, HEMORRHOIDS,MIGRAINES, INSOMNIA. VERTIGO, last seizure 4 years ago, complex regional pain syndrome, RLS. History of Any Multi-Drug Resistant Organisms: MRSA Date of last positivie culture/infection: 04/20/15 MDRO Source:: Left Axilla Past Surgical History: Adenoidectomy, Back Surgery, Cholecystectomy, Orthopedic Surgery, Tonsillectomy Additional Past Surgical History / Comment(s): bilateral foot surgery d/t rsd, numerous pain clinic procedures, nerve stimulator in back to tx RSD placed in Nov 11 2015, pain pump placement, Past Anesthesia/Blood Transfusion Reactions: Previous Problems w/ Anesthesia Additional Past Anesthesia/Blood Transfusion Reaction / Comment(s): Pt recieved blood when she was 2 yrs old after tonsillectomy. WHEN BABY HEART STOPPED TWICE- PT STATED SHE WAS ALLERGIC TO ETHER. Past Psychological History: Anxiety, Bipolar, Depression, PTSD Smoking Status: Never smoker Past Alcohol Use History: None Reported Past Drug Use History: Marijuana - Past Family History Father History Unknown: Yes Family Medical History: Diabetes Mellitus Mother Family Medical History: Cancer, CVA/TIA, Diabetes Mellitus, Myocardial Infarction ([place]) Additional Family Medical History / Comment(s): Mother has had 5 CVAs, 3 MIs and UTERINE CANCER General Exam Limitations: no limitations General appearance: alert, in no apparent distress, in distress (Emotional) Head exam: Present: atraumatic, normocephalic, normal inspection Eye exam: Present: normal appearance, PERRL, EOMI. Absent: scleral icterus, conjunctival injection, periorbital swelling Neck exam: Present: normal inspection Respiratory exam: Present: normal lung sounds bilaterally. Absent: respiratory distress, wheezes, rales, rhonchi, stridor Cardiovascular Exam: Present: regular rate, normal rhythm, normal heart sounds. Absent: systolic murmur, diastolic murmur, rubs, gallop, clicks Extremities exam: Present: normal inspection, full ROM, tenderness (To light palpation touch, bilateral lower extremities), normal capillary refill. Absent: pedal edema, joint swelling, calf tenderness Back exam: Present: normal inspection, tenderness (Low back) Neurological exam: Present: alert, oriented X3, CN II-XII intact Psychiatric exam: Present: normal affect, normal mood Skin exam: Present: warm, dry, intact, normal color. Absent: rash Course Vital Signs 09/14/20 19:52 Temperature 98.1 F Pulse Rate 82 Respiratory 20 Rate Blood Pressure 137/91 O2 Sat by Pulse 95 Oximetry Medical Decision Making - Medical Decision Making 34-year-old female complaining of chronic back pain, pain stimulator quit working. 1 mg of Dilaudid ordered. Patient's symptoms relieved with medication. Case discussed with Dr. Whalne, patient can discharge home with follow-up to pain medicine doctor. Disposition Clinical Impression: Neuropathy, Chronic pain, Chronic pain syndrome Disposition: HOME SELF-CARE Condition: Stable Instructions (If sedation given, give patient instructions): Chronic Back Pain (DC) Additional Instructions: Please return to the Emergency Department if symptoms worsen or any other concerns. Continue to call pain medicine to see if he can get in earlier. If no return call potentially find other pain medicine specialist. Continue take at home medications as prescribed. Is patient prescribed a controlled substance at d/c from ED?: No Referrals: China Doyle MD [Primary Care Provider] - 1-2 days Time of Disposition: 20:50
== END 2020-09-14 21:07 | disposition home or self-care (01) ==
LOC: EC 19:41
DX: G62.9 Polyneuropathy, unspecified (principal); G89.4 Chronic pain syndrome; M79.604 Pain in right leg; M79.605 Pain in left leg; M54.9 Dorsalgia, unspecified; J45.909 Unspecified asthma, uncomplicated; K21.9 Gastro-esophageal reflux disease without esophagitis; E78.5 Hyperlipidemia, unspecified; M19.90 Unspecified osteoarthritis, unspecified site; G40.909 Epilepsy, unspecified, not intractable, without status epilepticus; G43.909 Migraine, unspecified, not intractable, without status migrainosus; F41.9 Anxiety disorder, unspecified; F31.9 Bipolar disorder, unspecified; F12.90 Cannabis use, unspecified, uncomplicated; Z79.51 Long term (current) use of inhaled steroids
CPT/HCPCS: 99283; 96374; J1170

== ENCOUNTER 2020-09-16 23:39 | Emergency (ER) | payer MEDICARE, OTHER ==
[2020-09-16] MEDS ORDERED: SODIUM CHLORIDE 0.9% 500 ML 500 ML IV ONE (23:48)
[2020-09-16] MEDS ORDERED: HYDROmorphone 0.5 MG/0.5 ML SYRINGE IVP STA (23:48)
[2020-09-16] MEDS ORDERED: ONDANSETRON 4 MG/2 ML VIAL IVP STA (23:48)
--- NOTE | 2020-09-17 00:27 | ED ---
General Adult HPI - General Chief complaint: Headache Stated complaint: Migraine Time Seen by Provider: 09/16/20 23:44 Source: patient Mode of arrival: ambulatory Limitations: no limitations - History of Present Illness Initial comments: 34 year-old female patient presents to the emergency department for evaluation of "migraine" headache. Patient states that her right leg gave out on her and she fell hitting her head yesterday. States she struck her forehead. Denies loss of consciousness. States she has had pain since the injury. She also reports mul tiple episodes of vomiting and blurred vision. States that her symptoms are similar to her usual migraine pattern, but more intense. She did take oral zofran, fioricet, and Ibuprofen without relief. Denies any fever or chills. Denies any neck pain, back pain, or other injuries. Denies use of oral anticoagulant or antiplatelet medication. - Related Data Home Medications Medication Instructions Recorded Confirmed Medroxyprogesterone Acetate 150 mg IM Q84D 11/22/13 08/31/20 [Depo-Provera] rOPINIRole HCL [Requip] 1 mg PO BID@0900,1200 11/22/13 08/31/20 Pentosan Polysulfate Sodium 100 mg PO DAILY 02/10/15 08/31/20 [Elmiron] HYDROcodone/APAP 7.5-325MG [[place] 1 tab PO BID 07/20/16 08/31/20 7.5-325] Paliperidone IM Pt Own [Invega 117 mg IM Q28D 07/20/16 08/31/20 Sustenna] amantadine HCL [Symmetrel] 100 mg PO BID 11/21/16 08/31/20 Albuterol Sulfate [Proair Hfa] 2 puff INHALATION RT-QID PRN 01/13/18 08/31/20 Butalb/Acetaminophen/Caffeine 1 tab PO Q8H PRN 01/13/18 08/31/20 [Fioricet 50-325-40] Fluticasone Propionate [Flovent 1 puff INHALATION RT-BID 01/13/18 08/31/20 Hfa 110 mcg] Gemfibrozil [Lopid] 600 mg PO BID 01/13/18 08/31/20 Gabapentin [Neurontin] 300 mg PO TID 03/11/18 08/31/20 Gabapentin [Neurontin] 600 mg PO TID 09/16/19 08/31/20 Omeprazole [PriLOSEC] 40 mg PO DAILY 09/16/19 08/31/20 rOPINIRole HCL [Requip] 2 mg PO HS 09/16/19 08/31/20 traZODone HCL 300 mg PO HS 09/16/19 08/31/20 hydrOXYzine pamoate [hydrOXYzine 25 mg PO BID 04/13/20 08/31/20 PAMOATE] Cyclobenzaprine [Flexeril] 10 mg PO TID PRN 08/16/20 08/31/20 Fentanyl/Bupivcaine Pain Pump 1 dose INTRATHECA CONTINUOUS 08/16/20 08/31/20 Allergies Allergy/AdvReac Type Severity Reaction Status Date / Time azithromycin Allergy Rash/Hives Verified 09/16/20 23:43 [From Zithromax Z-Mehrdad] cimetidine [From Tagamet] Allergy Rash/Hives Verified 09/16/20 23:43 ether [Ether] Allergy Anaphylaxis Verified 09/16/20 23:43 Fish Containing Products Allergy Anaphylaxis Verified 09/16/20 23:43 [Fish] ketorolac tromethamine Allergy Rash/Hives Verified 09/16/20 23:43 [From Toradol] morphine Allergy Unknown Verified 09/16/20 23:43 ziprasidone HCl [From Geodon] Allergy Extrapyramidal Verified 09/16/20 23:43 Symptoms fluphenazine HCl AdvReac Extrapyramidal Verified 09/16/20 23:43 [From Prolixin] Symptoms haloperidol [From Haldol] AdvReac Extrapyramidal Verified 09/16/20 23:43 Symptoms Sulfa (Sulfonamide AdvReac Nausea & Verified 09/16/20 23:43 Antibiotics) Vomiting Review of Systems ROS Statement: Those systems with pertinent positive or pertinent negative responses have been documented in the HPI. ROS Other: All systems not noted in ROS Statement are negative. Past Medical History Past Medical History: Asthma, GERD/Reflux, Hyperlipidemia, Musculoskeletal Disorder, Neurologic Disorder, Osteoarthritis (OA), Seizure Disorder Additional Past Medical History / Comment(s): RSD-DERIC FEET, INTERSTITIAL CYSTITIS, BRONCHITIS, HEMORRHOIDS,MIGRAINES, INSOMNIA. VERTIGO, last seizure 4 years ago, complex regional pain syndrome, RLS. History of Any Multi-Drug Resistant Organisms: MRSA Date of last positivie culture/infection: 04/20/15 MDRO Source:: Left Axilla Past Surgical History: Adenoidectomy, Back Surgery, Cholecystectomy, Orthopedic Surgery, Tonsillectomy Additional Past Surgical History / Comment(s): bilateral foot surgery d/t rsd, numerous pain clinic procedures, nerve stimulator in back to tx RSD placed in Nov 11 2015, pain pump placement, Past Anesthesia/Blood Transfusion Reactions: Previous Problems w/ Anesthesia Additional Past Anesthesia/Blood Transfusion Reaction / Comment(s): Pt recieved blood when she was 2 yrs old after tonsillectomy. WHEN BABY HEART STOPPED TWICE- PT STATED SHE WAS ALLERGIC TO ETHER. Past Psychological History: Anxiety, Bipolar, Depression, PTSD Smoking Status: Never smoker Past Alcohol Use History: None Reported Past Drug Use History: Marijuana - Past Family History Father History Unknown: Yes Family Medical History: Diabetes Mellitus Mother Family Medical History: Cancer, CVA/TIA, Diabetes Mellitus, Myocardial Infarction ([place]) Additional Family Medical History / Comment(s): Mother has had 5 CVAs, 3 MIs and UTERINE CANCER General Exam Limitations: no limitations General appearance: alert, in no apparent distress, other (This is a well- developed, well-nourished adult female patient in no acute distress. Vital signs upon presentation temperature 97.9F, pulse 125, respirations 20, blood pressure 151/91.) Eye exam: Present: normal appearance, PERRL, EOMI. Absent: scleral icterus, conjunctival injection, periorbital swelling ENT exam: Present: normal exam, normal oropharynx, mucous membranes moist Respiratory exam: Present: normal lung sounds bilaterally. Absent: respiratory distress, wheezes, rales, rhonchi, stridor Cardiovascular Exam: Present: regular rate, normal rhythm, normal heart sounds. Absent: systolic murmur, diastolic murmur, rubs, gallop, clicks GI/Abdominal exam: Present: soft, normal bowel sounds. Absent: distended, tenderness, guarding, rebound, rigid Neurological exam: Present: alert, oriented X3, CN II-XII intact Expanded Speech: Present: fluid speech Cranial nerves: EOM's Intact: Normal, Tongue Deviation: Normal Motor strength exam: RUE: 5, LUE: 5, RLE: 5, LLE: 5 Eye Response: (4) open spontaneously Motor Response: (6) obeys commands Verbal Response: (5) oriented [place] Total: 15 Psychiatric exam: Present: normal affect, normal mood Skin exam: Present: warm, dry, intact, normal color. Absent: rash Course Vital Signs 09/16/20 23:40 Temperature 97.9 F Pulse Rate 125 H Respiratory 20 Rate Blood Pressure 151/91 Medical Decision Making - Medical Decision Making 34 year-old female patient presents to the emergency department for evaluation of migraine headache. Reports head injury yesterday. Physical exam is unremarkable. She is neurologically intact without focal deficits. CT was obtained and was unremarkable. She was given medication for migraine. She will be discharged to follow up with the primary care physician for recheck in 1-2 days. Return parameters are discussed in detail. She verbalizes understanding and agrees with this plan. My attending is Dr. Hernandez. - Radiology Data Radiology results: report reviewed, image reviewed CT brain was obtained. Report was reviewed in its entirety. Impression by Dr. Francis shows normal head/brain CT. Disposition Clinical Impression: Migraine Disposition: HOME SELF-CARE Condition: Good Instructions (If sedation given, give patient instructions): Migraine Headache (ED) Additional Instructions: Increase fluids. Rest. Follow-up with your primary care physician for recheck as soon as possible. Return for any new, worsening, or concerning symptoms. Is patient prescribed a controlled substance at d/c from ED?: No Referrals: China Doyle MD [Primary Care Provider] - 1-2 days Time of Disposition: 00:48
--- NOTE | 2020-09-17 00:44 | CT ---
EXAM: CT Head Without Intravenous Contrast CLINICAL HISTORY: ITS.REASON CT Reason: Head injury/headache TECHNIQUE: Axial computed tomography images of the head/brain without intravenous contrast. CTDI is 49.27 mGy and DLP is 1080.4 mGy-cm. This CT exam was performed using one or more of the following dose reduction techniques: automated exposure control, adjustment of the mA and/or kV according to patient size, and/or use of iterative reconstruction technique. COMPARISON: No relevant prior studies available. FINDINGS: Brain: Unremarkable. No hemorrhage. No significant white matter disease. No edema. Ventricles: Unremarkable. No ventriculomegaly. Bones/joints: Unremarkable. No acute fracture. Soft tissues: Unremarkable. Sinuses: Unremarkable as visualized. No acute sinusitis. Mastoid air cells: Unremarkable as visualized. No mastoid effusion. IMPRESSION: Normal head/brain CT.
[2020-09-17] MEDS ORDERED: diphenhydrAMINE 50 MG/ML 1 ML VIAL IVP STA (00:47)
[2020-09-17] MEDS ORDERED: KETOROLAC 15 MG/ML 1 ML VIAL IVP STA (00:47)
[2020-09-17] MEDS ORDERED: METOCLOPRAMIDE 5 MG/ML 2 ML VIAL IVP STA (00:55)
[2020-09-17 01:51] VITALS: RESP 18
[2020-09-17 01:56] VITALS: BP 133/87; PULSE 86; TEMP 98.3
== END 2020-09-17 01:55 | disposition home or self-care (01) ==
LOC: EC 23:39
DX: G40.909 Epilepsy, unspecified, not intractable, without status epilepticus (principal); J45.909 Unspecified asthma, uncomplicated; E78.5 Hyperlipidemia, unspecified; M19.90 Unspecified osteoarthritis, unspecified site; F32.9 Major depressive disorder, single episode, unspecified; F12.90 Cannabis use, unspecified, uncomplicated; Z90.49 Acquired absence of other specified parts of digestive tract; Z90.09 Acquired absence of other part of head and neck
CPT/HCPCS: 70450; 99284; 96374; 96375 ×4; 96361; J1200; J2765; J2405; J1885; J1170

== ENCOUNTER 2020-09-20 21:01 | Emergency (ER) | payer MEDICARE, OTHER ==
[2020-09-20 21:13] VITALS: BP 145/95; PULSE 109; RESP 18; TEMP 98.1
[2020-09-20] MEDS ORDERED: diphenhydrAMINE 50 MG CAP PO STA (21:29)
[2020-09-20] MEDS ORDERED: KETOROLAC 15 MG/ML 1 ML VIAL IM STA (21:29)
--- NOTE | 2020-09-20 22:00 | ED ---
General Adult HPI - General Chief complaint: Extremity Problem,Nontraumatic Stated complaint: Leg pain Time Seen by Provider: 09/20/20 21:24 Source: patient Mode of arrival: ambulatory Limitations: no limitations - History of Present Illness Initial comments: 34-year-old female presents to the emergency room for a chief complaint of chronic leg pain. Patient states she has had leg pain for years. Patient reports she has to pain palms and both were turned off by her machine paint mixer because they were not working properly. Patient takes [place] at home. Patient denies any new symptoms. Patient states she has been trying to get into her machine paint mixer to get these reactivated but has been unable to do so. Denies fevers or chills. Denies back pain.Patient has no other complaints at this time including shortness of breath, chest pain, abdominal pain, nausea or vomiting, headache, or visual changes. - Related Data Home Medications Medication Instructions Recorded Confirmed Medroxyprogesterone Acetate 150 mg IM Q84D 11/22/13 08/31/20 [Depo-Provera] rOPINIRole HCL [Requip] 1 mg PO BID@0900,1200 11/22/13 08/31/20 Pentosan Polysulfate Sodium 100 mg PO DAILY 02/10/15 08/31/20 [Elmiron] HYDROcodone/APAP 7.5-325MG [[place] 1 tab PO BID 07/20/16 08/31/20 7.5-325] Paliperidone IM Pt Own [Invega 117 mg IM Q28D 07/20/16 08/31/20 Sustenna] amantadine HCL [Symmetrel] 100 mg PO BID 11/21/16 08/31/20 Albuterol Sulfate [Proair Hfa] 2 puff INHALATION RT-QID PRN 01/13/18 08/31/20 Butalb/Acetaminophen/Caffeine 1 tab PO Q8H PRN 01/13/18 08/31/20 [Fioricet 50-325-40] Fluticasone Propionate [Flovent 1 puff INHALATION RT-BID 01/13/18 08/31/20 Hfa 110 mcg] Gemfibrozil [Lopid] 600 mg PO BID 01/13/18 08/31/20 Gabapentin [Neurontin] 300 mg PO TID 03/11/18 08/31/20 Gabapentin [Neurontin] 600 mg PO TID 09/16/19 08/31/20 Omeprazole [PriLOSEC] 40 mg PO DAILY 09/16/19 08/31/20 rOPINIRole HCL [Requip] 2 mg PO HS 09/16/19 08/31/20 traZODone HCL 300 mg PO HS 09/16/19 08/31/20 hydrOXYzine pamoate [hydrOXYzine 25 mg PO BID 04/13/20 08/31/20 PAMOATE] Cyclobenzaprine [Flexeril] 10 mg PO TID PRN 08/16/20 08/31/20 Fentanyl/Bupivcaine Pain Pump 1 dose INTRATHECA CONTINUOUS 08/16/20 08/31/20 Allergies Allergy/AdvReac Type Severity Reaction Status Date / Time azithromycin Allergy Rash/Hives Verified 09/20/20 21:10 [From Zithromax Z-Mehrdad] cimetidine [From Tagamet] Allergy Rash/Hives Verified 09/20/20 21:10 ether [Ether] Allergy Anaphylaxis Verified 09/20/20 21:10 Fish Containing Products Allergy Anaphylaxis Verified 09/20/20 21:10 [Fish] ketorolac tromethamine Allergy Rash/Hives Verified 09/20/20 21:10 [From Toradol] morphine Allergy Unknown Verified 09/20/20 21:10 ziprasidone HCl [From Geodon] Allergy Extrapyramidal Verified 09/20/20 21:10 Symptoms fluphenazine HCl AdvReac Extrapyramidal Verified 09/20/20 21:10 [From Prolixin] Symptoms haloperidol [From Haldol] AdvReac Extrapyramidal Verified 09/20/20 21:10 Symptoms Sulfa (Sulfonamide AdvReac Nausea & Verified 09/20/20 21:10 Antibiotics) Vomiting Review of Systems ROS Statement: Those systems with pertinent positive or pertinent negative responses have been documented in the HPI. ROS Other: All systems not noted in ROS Statement are negative. Past Medical History Past Medical History: Asthma, GERD/Reflux, Hyperlipidemia, Musculoskeletal Disorder, Neurologic Disorder, Osteoarthritis (OA), Seizure Disorder Additional Past Medical History / Comment(s): RSD-DERIC FEET, INTERSTITIAL CYSTITIS, BRONCHITIS, HEMORRHOIDS,MIGRAINES, INSOMNIA. VERTIGO, last seizure 4 years ago, complex regional pain syndrome, RLS. History of Any Multi-Drug Resistant Organisms: MRSA Date of last positivie culture/infection: 04/20/15 MDRO Source:: Left Axilla Past Surgical History: Adenoidectomy, Back Surgery, Cholecystectomy, Orthopedic Surgery, Tonsillectomy Additional Past Surgical History / Comment(s): bilateral foot surgery d/t rsd, numerous pain clinic procedures, nerve stimulator in back to tx RSD placed in Nov 11 2015, pain pump placement, Past Anesthesia/Blood Transfusion Reactions: Previous Problems w/ Anesthesia Additional Past Anesthesia/Blood Transfusion Reaction / Comment(s): Pt recieved blood when she was 2 yrs old after tonsillectomy. WHEN BABY HEART STOPPED TWICE- PT STATED SHE WAS ALLERGIC TO ETHER. Past Psychological History: Anxiety, Bipolar, Depression, PTSD Smoking Status: Never smoker Past Alcohol Use History: None Reported Past Drug Use History: Marijuana - Past Family History Father History Unknown: Yes Family Medical History: Diabetes Mellitus Mother Family Medical History: Cancer, CVA/TIA, Diabetes Mellitus, Myocardial Infarction ([place]) Additional Family Medical History / Comment(s): Mother has had 5 CVAs, 3 MIs and UTERINE CANCER General Exam Limitations: no limitations General appearance: alert, in no apparent distress Head exam: Present: atraumatic, normocephalic, normal inspection Eye exam: Present: normal appearance, PERRL, EOMI. Absent: scleral icterus, conjunctival injection, periorbital swelling ENT exam: Present: normal exam, mucous membranes moist Neck exam: Present: normal inspection, full ROM. Absent: tenderness, meningismus, lymphadenopathy Respiratory exam: Present: normal lung sounds bilaterally. Absent: respiratory distress, wheezes, rales, rhonchi, stridor Cardiovascular Exam: Present: regular rate, normal rhythm, normal heart sounds. Absent: systolic murmur, diastolic murmur, rubs, gallop, clicks GI/Abdominal exam: Present: soft, normal bowel sounds. Absent: distended, tenderness, guarding, rebound, rigid Extremities exam: Present: full ROM (Full range of motion of bilateral lower extremities.), other (Capillary refill less than 2 seconds, DP pulse 2+) Course Vital Signs 09/20/20 21:10 Temperature 98.1 F Pulse Rate 109 H Respiratory 18 Rate Blood Pressure 145/95 O2 Sat by Pulse 94 L Oximetry Medical Decision Making - Medical Decision Making Patient presenting for chronic pain. She was given Toradol and Benadryl. Patient will follow up with her machine paint mixer. She'll return for any worsening symptoms. Disposition Clinical Impression: Chronic pain Disposition: HOME SELF-CARE Condition: Good Instructions (If sedation given, give patient instructions): Chronic Pain (ED) Additional Instructions: Please follow-up with your primary care doctor as well as your machine paint mixer. Return to the emergency room for any worsening symptoms. Is patient prescribed a controlled substance at d/c from ED?: No Referrals: China Doyle MD [Primary Care Provider] - 1-2 days Time of Disposition: 21:59
== END 2020-09-20 22:06 | disposition home or self-care (01) ==
LOC: EC 21:01
DX: G89.29 Other chronic pain (principal); M79.606 Pain in leg, unspecified; J45.909 Unspecified asthma, uncomplicated; E78.5 Hyperlipidemia, unspecified; K21.9 Gastro-esophageal reflux disease without esophagitis; G40.909 Epilepsy, unspecified, not intractable, without status epilepticus; M19.90 Unspecified osteoarthritis, unspecified site; F31.9 Bipolar disorder, unspecified; F41.9 Anxiety disorder, unspecified; F12.90 Cannabis use, unspecified, uncomplicated; Z87.19 Personal history of other diseases of the digestive system; Z79.51 Long term (current) use of inhaled steroids; Z79.3 Long term (current) use of hormonal contraceptives
CPT/HCPCS: 99283; 96372; J1885

== ENCOUNTER 2020-10-03 13:54 | Emergency (ER) | payer MEDICARE, OTHER ==
[2020-10-03 13:59] VITALS: BP 146/91; PULSE 92; RESP 18; TEMP 98.9
[2020-10-03] MEDS ORDERED: diphenhydrAMINE 50 MG/ML 1 ML VIAL IM STA (14:33)
[2020-10-03] MEDS ORDERED: KETOROLAC 15 MG/ML 1 ML VIAL IM STA (14:33)
--- NOTE | 2020-10-03 14:37 | ED ---
General Adult HPI - General Chief complaint: Extremity Problem,Nontraumatic Stated complaint: Leg Pain Time Seen by Provider: 10/03/20 14:12 Source: patient Mode of arrival: ambulatory Limitations: no limitations - History of Present Illness Initial comments: 34-year-old female with history of complex regional syndrome presenting to emergency Department with chief complaint of leg pain. Patient reports due to her history, she has chronic leg pain that only goes away with Toradol and Benadryl. Patient is also reporting pain in her right eye, upper lid. Patient reports she believes it is a stye and she has been applying warm compresses over the last few days since it occurred. Patient denies any pain with extraocular movements. Denies any redness of the eye. - Related Data Home Medications Medication Instructions Recorded Confirmed Medroxyprogesterone Acetate 150 mg IM Q84D 11/22/13 08/31/20 [Depo-Provera] rOPINIRole HCL [Requip] 1 mg PO BID@0900,1200 11/22/13 08/31/20 Pentosan Polysulfate Sodium 100 mg PO DAILY 02/10/15 08/31/20 [Elmiron] HYDROcodone/APAP 7.5-325MG [[place] 1 tab PO BID 07/20/16 08/31/20 7.5-325] Paliperidone IM Pt Own [Invega 117 mg IM Q28D 07/20/16 08/31/20 Sustenna] amantadine HCL [Symmetrel] 100 mg PO BID 11/21/16 08/31/20 Albuterol Sulfate [Proair Hfa] 2 puff INHALATION RT-QID PRN 01/13/18 08/31/20 Butalb/Acetaminophen/Caffeine 1 tab PO Q8H PRN 01/13/18 08/31/20 [Fioricet 50-325-40] Fluticasone Propionate [Flovent 1 puff INHALATION RT-BID 01/13/18 08/31/20 Hfa 110 mcg] Gemfibrozil [Lopid] 600 mg PO BID 01/13/18 08/31/20 Gabapentin [Neurontin] 300 mg PO TID 03/11/18 08/31/20 Gabapentin [Neurontin] 600 mg PO TID 09/16/19 08/31/20 Omeprazole [PriLOSEC] 40 mg PO DAILY 09/16/19 08/31/20 rOPINIRole HCL [Requip] 2 mg PO HS 09/16/19 08/31/20 traZODone HCL 300 mg PO HS 09/16/19 08/31/20 hydrOXYzine pamoate [hydrOXYzine 25 mg PO BID 04/13/20 08/31/20 PAMOATE] Cyclobenzaprine [Flexeril] 10 mg PO TID PRN 08/16/20 08/31/20 Fentanyl/Bupivcaine Pain Pump 1 dose INTRATHECA CONTINUOUS 08/16/20 08/31/20 Previous Rx's Medication Instructions Recorded Erythromycin Ophth Oint [Romycin 1 applic RIGHT EYE QID #1 bottle 10/03/20 Ophth Oint] Allergies Allergy/AdvReac Type Severity Reaction Status Date / Time azithromycin Allergy Rash/Hives Verified 10/03/20 13:59 [From Zithromax Z-Mehrdad] cimetidine [From Tagamet] Allergy Rash/Hives Verified 10/03/20 13:59 ether [Ether] Allergy Anaphylaxis Verified 10/03/20 13:59 Fish Containing Products Allergy Anaphylaxis Verified 10/03/20 13:59 [Fish] ketorolac tromethamine Allergy Rash/Hives Verified 10/03/20 13:59 [From Toradol] morphine Allergy Unknown Verified 10/03/20 13:59 ziprasidone HCl [From Geodon] Allergy Extrapyramidal Verified 10/03/20 13:59 Symptoms fluphenazine HCl AdvReac Extrapyramidal Verified 10/03/20 13:59 [From Prolixin] Symptoms haloperidol [From Haldol] AdvReac Extrapyramidal Verified 10/03/20 13:59 Symptoms Sulfa (Sulfonamide AdvReac Nausea & Verified 10/03/20 13:59 Antibiotics) Vomiting Review of Systems ROS Statement: Those systems with pertinent positive or pertinent negative responses have been documented in the HPI. ROS Other: All systems not noted in ROS Statement are negative. Past Medical History Past Medical History: Asthma, GERD/Reflux, Hyperlipidemia, Musculoskeletal Disorder, Neurologic Disorder, Osteoarthritis (OA), Seizure Disorder Additional Past Medical History / Comment(s): RSD-DERIC FEET, INTERSTITIAL CYSTITIS, BRONCHITIS, HEMORRHOIDS,MIGRAINES, INSOMNIA. VERTIGO, last seizure 4 years ago, complex regional pain syndrome, RLS. History of Any Multi-Drug Resistant Organisms: MRSA Date of last positivie culture/infection: 04/20/15 MDRO Source:: Left Axilla Past Surgical History: Adenoidectomy, Back Surgery, Cholecystectomy, Orthopedic Surgery, Tonsillectomy Additional Past Surgical History / Comment(s): bilateral foot surgery d/t rsd, numerous pain clinic procedures, nerve stimulator in back to tx RSD placed in Nov 11 2015, pain pump placement, Past Anesthesia/Blood Transfusion Reactions: Previous Problems w/ Anesthesia Additional Past Anesthesia/Blood Transfusion Reaction / Comment(s): Pt recieved blood when she was 2 yrs old after tonsillectomy. WHEN BABY HEART STOPPED TWICE- PT STATED SHE WAS ALLERGIC TO ETHER. Past Psychological History: Anxiety, Bipolar, Depression, PTSD Smoking Status: Never smoker Past Alcohol Use History: None Reported Past Drug Use History: Marijuana - Past Family History Father History Unknown: Yes Family Medical History: Diabetes Mellitus Mother Family Medical History: Cancer, CVA/TIA, Diabetes Mellitus, Myocardial Infarction ([place]) Additional Family Medical History / Comment(s): Mother has had 5 CVAs, 3 MIs and UTERINE CANCER General Exam Limitations: no limitations General appearance: alert, in no apparent distress Head exam: Present: atraumatic, normocephalic, normal inspection Eye exam: Present: normal appearance, PERRL, EOMI. Absent: other (External stye right eye.) Pupils: Present: normal accommodation ENT exam: Present: normal exam, normal oropharynx, mucous membranes moist Neck exam: Present: normal inspection, full ROM. Absent: tenderness, lymphadenopathy Respiratory exam: Present: normal lung sounds bilaterally. Absent: respiratory distress Cardiovascular Exam: Present: regular rate, normal rhythm, normal heart sounds. Absent: systolic murmur Extremities exam: Present: normal inspection, full ROM, tenderness (Diffuse, bilateral lower extremity tenderness), normal capillary refill, other (Palpable DP and PT bilaterally). Absent: calf tenderness Back exam: Present: normal inspection, full ROM Neurological exam: Present: alert, oriented X3 Psychiatric exam: Present: normal affect, normal mood Skin exam: Present: warm, dry, intact, normal color Course Vital Signs 10/03/20 13:56 Temperature 98.9 F Pulse Rate 92 Respiratory 18 Rate Blood Pressure 146/91 O2 Sat by Pulse 99 Oximetry Medical Decision Making - Medical Decision Making 34-year-old female with history of complex regional Center presents to emergency department with a chief complaint of leg pain. Patient was given Toradol and Benadryl with improvement in symptoms. Patient is well-known to the emergency department for her frequent visits for the same chief complaint. This time she also had a stye on the right upper lid. External sty. She was prescribed erythromycin advised to apply warm converses. Return primary discussed the patient was up standing agreeable. Case discussed with physician. Disposition Clinical Impression: External hordeolum, Chronic leg pain Disposition: HOME SELF-CARE Condition: Stable Instructions (If sedation given, give patient instructions): Stye (ED) Additional Instructions: Please return to the Emergency Department if symptoms worsen or any other concerns. Prescriptions: Erythromycin Ophth Oint [Romycin Ophth Oint] 1 applic RIGHT EYE QID #1 bottle Is patient prescribed a controlled substance at d/c from ED?: No Referrals: China Doyle MD [Primary Care Provider] - 1-2 days Time of Disposition: 14:35
== END 2020-10-03 14:53 | disposition home or self-care (01) ==
LOC: EC 13:54
DX: G89.29 Other chronic pain (principal); M79.605 Pain in left leg; M79.604 Pain in right leg; H00.011 Hordeolum externum right upper eyelid; E78.5 Hyperlipidemia, unspecified; J45.909 Unspecified asthma, uncomplicated; G40.909 Epilepsy, unspecified, not intractable, without status epilepticus; F31.9 Bipolar disorder, unspecified; F41.9 Anxiety disorder, unspecified; K21.9 Gastro-esophageal reflux disease without esophagitis; F12.90 Cannabis use, unspecified, uncomplicated; Z79.51 Long term (current) use of inhaled steroids; Z79.3 Long term (current) use of hormonal contraceptives; Z79.899 Other long term (current) drug therapy; Z82.49 Family history of ischemic heart disease and other diseases of the circulatory system; Z83.3 Family history of diabetes mellitus; Z82.3 Family history of stroke; Z87.19 Personal history of other diseases of the digestive system
CPT/HCPCS: 96372 ×2; 99283; J1200; J1885

== ENCOUNTER 2020-10-07 11:02 | Emergency (ER) | payer MEDICARE, OTHER ==
[2020-10-07 11:07] VITALS: RESP 18; TEMP 98
[2020-10-07 11:22] VITALS: BP 138/90; PULSE 85
[2020-10-07] MEDS ORDERED: KETOROLAC 15 MG/ML 1 ML VIAL IM STA (11:55)
[2020-10-07] MEDS ORDERED: diphenhydrAMINE 50 MG/ML 1 ML VIAL IM STA (11:55)
[2020-10-07] MEDS ORDERED: HYDROmorphone 1 MG/ML 1 ML SYRINGE IM STA (11:55)
--- NOTE | 2020-10-07 12:24 | ED ---
General Adult HPI - General Chief complaint: Extremity Injury, Lower Stated complaint: Leg pain revisit Time Seen by Provider: 10/07/20 11:09 Source: patient Mode of arrival: ambulatory Limitations: no limitations - History of Present Illness Initial comments: 34 year-old female patient presents to the emergency department for evaluation of bilateral leg pain and left hip pain. Patient has chronic pain related to RSD diagnosis. Patient states that she has a spine stimulator which was been shut off for the last three months. States she is trying to get into her neurologist to get it fixed but is having difficulty getting an appointment. She states that she has been taking her home norco and neurontin without relief. States that she is also having increased left hip pain after a fall two weeks ago. States she has not been evaluated for the injury. Denies any other injuries or concerns. Denies numbness or tingling to the lower extremities. Patient denies any headache, neck pain, back pain, chest pain, shortness of breath, dizziness, weakness, abdominal pain, nausea, vomiting, or difficulties with bowel movements or urination. - Related Data Home Medications Medication Instructions Recorded Confirmed Medroxyprogesterone Acetate 150 mg IM Q84D 11/22/13 10/07/20 [Depo-Provera] rOPINIRole HCL [Requip] 1 mg PO BID@0900,1200 11/22/13 10/07/20 Pentosan Polysulfate Sodium 100 mg PO DAILY 02/10/15 10/07/20 [Elmiron] HYDROcodone/APAP 7.5-325MG [[place] 1 tab PO BID 07/20/16 10/07/20 7.5-325] Paliperidone IM Pt Own [Invega 117 mg IM Q28D 07/20/16 10/07/20 Sustenna] amantadine HCL [Symmetrel] 100 mg PO BID 11/21/16 10/07/20 Albuterol Sulfate [Proair Hfa] 2 puff INHALATION RT-QID PRN 01/13/18 10/07/20 Butalb/Acetaminophen/Caffeine 1 tab PO Q8H PRN 01/13/18 10/07/20 [Fioricet 50-325-40] Fluticasone Propionate [Flovent 1 puff INHALATION RT-BID 01/13/18 10/07/20 Hfa 110 mcg] Gemfibrozil [Lopid] 600 mg PO BID 01/13/18 10/07/20 Gabapentin [Neurontin] 300 mg PO TID 03/11/18 10/07/20 Gabapentin [Neurontin] 600 mg PO TID 09/16/19 10/07/20 Omeprazole [PriLOSEC] 40 mg PO DAILY 09/16/19 10/07/20 rOPINIRole HCL [Requip] 2 mg PO HS 09/16/19 10/07/20 traZODone HCL 300 mg PO HS 09/16/19 10/07/20 hydrOXYzine pamoate [hydrOXYzine 25 mg PO BID 04/13/20 10/07/20 PAMOATE] Cyclobenzaprine [Flexeril] 10 mg PO TID PRN 08/16/20 10/07/20 Fentanyl/Bupivcaine Pain Pump 1 dose INTRATHECA CONTINUOUS 08/16/20 10/07/20 Ibuprofen [Motrin] 600 mg PO TID PRN 10/07/20 10/07/20 diphenhydrAMINE [Benadryl] 50 mg PO DAILY PRN 10/07/20 10/07/20 Previous Rx's Medication Instructions Recorded Erythromycin Ophth Oint [Romycin 1 applic RIGHT EYE QID #1 bottle 10/03/20 Ophth Oint] Allergies Allergy/AdvReac Type Severity Reaction Status Date / Time azithromycin Allergy Rash/Hives Verified 10/07/20 12:06 [From Zithromax Z-Mehrdad] cimetidine [From Tagamet] Allergy Rash/Hives Verified 10/07/20 12:06 ether [Ether] Allergy Anaphylaxis Verified 10/07/20 12:06 Fish Containing Products Allergy Anaphylaxis Verified 10/07/20 12:06 [Fish] ketorolac tromethamine Allergy Rash/Hives Verified 10/07/20 12:06 [From Toradol] morphine Allergy Unknown Verified 10/07/20 12:06 ziprasidone HCl [From Geodon] Allergy Extrapyramidal Verified 10/07/20 12:06 Symptoms fluphenazine HCl AdvReac Extrapyramidal Verified 10/07/20 12:06 [From Prolixin] Symptoms haloperidol [From Haldol] AdvReac Extrapyramidal Verified 10/07/20 12:06 Symptoms Sulfa (Sulfonamide AdvReac Nausea & Verified 10/07/20 12:06 Antibiotics) Vomiting Review of Systems ROS Statement: Those systems with pertinent positive or pertinent negative responses have been documented in the HPI. ROS Other: All systems not noted in ROS Statement are negative. Past Medical History Past Medical History: Asthma, GERD/Reflux, Hyperlipidemia, Musculoskeletal Disorder, Neurologic Disorder, Osteoarthritis (OA), Seizure Disorder Additional Past Medical History / Comment(s): RSD-DERIC FEET, INTERSTITIAL CYSTITIS, BRONCHITIS, HEMORRHOIDS,MIGRAINES, INSOMNIA. VERTIGO, last seizure 4 years ago, complex regional pain syndrome, RLS. History of Any Multi-Drug Resistant Organisms: MRSA Date of last positivie culture/infection: 04/20/15 MDRO Source:: Left Axilla Past Surgical History: Adenoidectomy, Back Surgery, Cholecystectomy, Orthopedic Surgery, Tonsillectomy Additional Past Surgical History / Comment(s): bilateral foot surgery d/t rsd, numerous pain clinic procedures, nerve stimulator in back to tx RSD placed in Nov 11 2015, pain pump placement, Past Anesthesia/Blood Transfusion Reactions: Previous Problems w/ Anesthesia Additional Past Anesthesia/Blood Transfusion Reaction / Comment(s): Pt recieved blood when she was 2 yrs old after tonsillectomy. WHEN BABY HEART STOPPED TWICE- PT STATED SHE WAS ALLERGIC TO ETHER. Past Psychological History: Anxiety, Bipolar, Depression, PTSD Smoking Status: Never smoker Past Alcohol Use History: None Reported Past Drug Use History: Marijuana - Past Family History Father History Unknown: Yes Family Medical History: Diabetes Mellitus Mother Family Medical History: Cancer, CVA/TIA, Diabetes Mellitus, Myocardial Infarction ([place]) Additional Family Medical History / Comment(s): Mother has had 5 CVAs, 3 MIs and UTERINE CANCER General Exam Limitations: no limitations General appearance: alert, in no apparent distress, other (This a well- developed, well-nourished adult female patient in no acute distress. Vital signs upon presentation temperature 98.0F, pulse 87, respirations 18, blood pressure 126/75, pulse ox 95% on room air.) ENT exam: Present: normal exam, normal oropharynx, mucous membranes moist Respiratory exam: Present: normal lung sounds bilaterally. Absent: respiratory distress, wheezes, rales, rhonchi, stridor Cardiovascular Exam: Present: regular rate, normal rhythm, normal heart sounds. Absent: systolic murmur, diastolic murmur, rubs, gallop, clicks Extremities exam: Present: normal inspection, full ROM, tenderness (Left lateral hip), normal capillary refill, other (Skin to the legs is pink, warm, dry. Cap refill less than 3 seconds. Pedal and posttibial pulses are 2+ and equal bilaterally.). Absent: pedal edema, joint swelling, calf tenderness Neurological exam: Present: alert, oriented X3, CN II-XII intact Psychiatric exam: Present: normal affect, normal mood Skin exam: Present: warm, dry, intact, normal color. Absent: rash Course Vital Signs 10/07/20 10/07/20 11:04 11:21 Temperature 98 F Pulse Rate 87 85 Respiratory 18 18 Rate Blood Pressure 126/75 138/90 O2 Sat by Pulse 95 98 Oximetry Medical Decision Making - Medical Decision Making 34-year-old female patient with chronic pain and history of RSD presents for evaluation of lower extremity pain and left hip pain. She developed a fall 2 weeks ago so x-ray of the left hip and pelvis was obtained and was negative. She is given pain medication here. She does have pain medication at home, she is discharged to follow-up with the primary care physician or neurologist for further evaluation as soon as possible. Return parameters were discussed in detail. She verbalizes understanding and agrees with this plan. My attending is Dr. Maddox. - Radiology Data Radiology results: report reviewed, image reviewed Left hip and pelvis x-ray shows no acute fractures. Disposition Clinical Impression: Chronic pain, Left hip pain Disposition: HOME SELF-CARE Condition: Good Instructions (If sedation given, give patient instructions): Chronic Pain (ED), Hip Pain (ED) Additional Instructions: Follow-up with your neurologist for further evaluation as soon as possible continue home medications as directed. Return to the emergency department for any new, worsening, or concerning symptoms. Is patient prescribed a controlled substance at d/c from ED?: No Referrals: China Doyle MD [Primary Care Provider] - 1-2 days Time of Disposition: 12:49
--- NOTE | 2020-10-07 12:39 | XR ---
EXAMINATION TYPE: XR Hip LT and AP Pelvis DATE OF EXAM: 10/07/2020 COMPARISON: NONE HISTORY: Trauma weeks prior and pain TECHNIQUE: A single AP view of the pelvis is obtained. Two views of the left hip are obtained. FINDINGS: There is no acute fracture/dislocation evident in the pelvis. The hip and sacroiliac join ts appear symmetric and unremarkable. The overlying soft tissue appears unremarkable. There are gene rators present overlying the bilateral abdomen. Leads course overlying the spine. Two views of left hip show no acute fracture or dislocation. No focal lytic or sclerotic lesion seen in the proximal left femur. The overlying soft tissue is unremarkable. IMPRESSION: There is no acute fracture or dislocation in the pelvis or left hip.
== END 2020-10-07 12:57 | disposition home or self-care (01) ==
LOC: EC 11:02
DX: G89.29 Other chronic pain (principal); M25.552 Pain in left hip; M79.604 Pain in right leg; J45.909 Unspecified asthma, uncomplicated; E78.5 Hyperlipidemia, unspecified; G40.909 Epilepsy, unspecified, not intractable, without status epilepticus; F31.9 Bipolar disorder, unspecified; F41.9 Anxiety disorder, unspecified; K21.9 Gastro-esophageal reflux disease without esophagitis; G25.81 Restless legs syndrome; G43.909 Migraine, unspecified, not intractable, without status migrainosus; M19.90 Unspecified osteoarthritis, unspecified site; G47.00 Insomnia, unspecified; Z87.19 Personal history of other diseases of the digestive system; F12.90 Cannabis use, unspecified, uncomplicated; Z79.1 Long term (current) use of non-steroidal anti-inflammatories (NSAID); Z79.3 Long term (current) use of hormonal contraceptives; Z79.51 Long term (current) use of inhaled steroids
CPT/HCPCS: 73502; 99283; 96372 ×3; J1200; J1170; J1885

== ENCOUNTER 2020-10-12 20:00 | Emergency (ER) | payer MEDICARE, OTHER ==
[2020-10-12 20:09] VITALS: RESP 18; TEMP 98.4
[2020-10-12 20:22] VITALS: PULSE 85
[2020-10-12] MEDS ORDERED: METOCLOPRAMIDE 5 MG/ML 2 ML VIAL IM STA (20:40)
[2020-10-12] MEDS ORDERED: diphenhydrAMINE 50 MG/ML 1 ML VIAL IM STA (20:41)
[2020-10-12] MEDS ORDERED: KETOROLAC 15 MG/ML 1 ML VIAL IM STA ×2 (20:41→21:41)
--- NOTE | 2020-10-12 22:01 | ED ---
Headache HPI - General Chief Complaint: Headache Stated Complaint: headache, dizziness Time Seen by Provider: 10/12/20 20:14 Mode of arrival: wheelchair Limitations: no limitations - History of Present Illness Initial Comments: 34-year-old female with history of migraine headaches presents to emergency Department with a chief complaint of a headache. Patient reports this was a gradual onset headache and not the worst headache of her life over the last one day. States she took Furacin at at home but she was not able to hold it in. Patient reports a typical left-sided headache with photophobia and nausea vomiting. States it feels like a throbbing headache. Patient reports typically Reglan and Toradol worked well for her. She denies any visual change is, one- sided weakness or paresthesias. - Related Data Home Medications Medication Instructions Recorded Confirmed Medroxyprogesterone Acetate 150 mg IM Q84D 11/22/13 10/07/20 [Depo-Provera] rOPINIRole HCL [Requip] 1 mg PO BID@0900,1200 11/22/13 10/07/20 Pentosan Polysulfate Sodium 100 mg PO DAILY 02/10/15 10/07/20 [Elmiron] HYDROcodone/APAP 7.5-325MG [[place] 1 tab PO BID 07/20/16 10/07/20 7.5-325] Paliperidone IM Pt Own [Invega 117 mg IM Q28D 07/20/16 10/07/20 Sustenna] amantadine HCL [Symmetrel] 100 mg PO BID 11/21/16 10/07/20 Albuterol Sulfate [Proair Hfa] 2 puff INHALATION RT-QID PRN 01/13/18 10/07/20 Butalb/Acetaminophen/Caffeine 1 tab PO Q8H PRN 01/13/18 10/07/20 [Fioricet 50-325-40] Fluticasone Propionate [Flovent 1 puff INHALATION RT-BID 01/13/18 10/07/20 Hfa 110 mcg] Gemfibrozil [Lopid] 600 mg PO BID 01/13/18 10/07/20 Gabapentin [Neurontin] 300 mg PO TID 03/11/18 10/07/20 Gabapentin [Neurontin] 600 mg PO TID 09/16/19 10/07/20 Omeprazole [PriLOSEC] 40 mg PO DAILY 09/16/19 10/07/20 rOPINIRole HCL [Requip] 2 mg PO HS 09/16/19 10/07/20 traZODone HCL 300 mg PO HS 09/16/19 10/07/20 hydrOXYzine pamoate [hydrOXYzine 25 mg PO BID 04/13/20 10/07/20 PAMOATE] Cyclobenzaprine [Flexeril] 10 mg PO TID PRN 08/16/20 10/07/20 Fentanyl/Bupivcaine Pain Pump 1 dose INTRATHECA CONTINUOUS 08/16/20 10/07/20 Ibuprofen [Motrin] 600 mg PO TID PRN 10/07/20 10/07/20 diphenhydrAMINE [Benadryl] 50 mg PO DAILY PRN 10/07/20 10/07/20 Previous Rx's Medication Instructions Recorded Erythromycin Ophth Oint [Romycin 1 applic RIGHT EYE QID #1 bottle 10/03/20 Ophth Oint] Allergies Allergy/AdvReac Type Severity Reaction Status Date / Time azithromycin Allergy Rash/Hives Verified 10/12/20 20:09 [From Zithromax Z-Mehrdad] cimetidine [From Tagamet] Allergy Rash/Hives Verified 10/12/20 20:09 ether [Ether] Allergy Anaphylaxis Verified 10/12/20 20:09 Fish Containing Products Allergy Anaphylaxis Verified 10/12/20 20:09 [Fish] ketorolac tromethamine Allergy Rash/Hives Verified 10/12/20 20:09 [From Toradol] morphine Allergy Unknown Verified 10/12/20 20:09 ziprasidone HCl [From Geodon] Allergy Extrapyramidal Verified 10/12/20 20:09 Symptoms fluphenazine HCl AdvReac Extrapyramidal Verified 10/12/20 20:09 [From Prolixin] Symptoms haloperidol [From Haldol] AdvReac Extrapyramidal Verified 10/12/20 20:09 Symptoms Sulfa (Sulfonamide AdvReac Nausea & Verified 10/12/20 20:09 Antibiotics) Vomiting Review of Systems ROS Statement: Those systems with pertinent positive or pertinent negative responses have been documented in the HPI. ROS Other: All systems not noted in ROS Statement are negative. Past Medical History Past Medical History: Asthma, GERD/Reflux, Hyperlipidemia, Musculoskeletal Disorder, Neurologic Disorder, Osteoarthritis (OA), Seizure Disorder Additional Past Medical History / Comment(s): RSD-DERIC FEET, INTERSTITIAL CYSTITIS, BRONCHITIS, HEMORRHOIDS,MIGRAINES, INSOMNIA. VERTIGO, last seizure 4 years ago, complex regional pain syndrome, RLS. History of Any Multi-Drug Resistant Organisms: MRSA Date of last positivie culture/infection: 04/20/15 MDRO Source:: Left Axilla Past Surgical History: Adenoidectomy, Back Surgery, Cholecystectomy, Orthopedic Surgery, Tonsillectomy Additional Past Surgical History / Comment(s): bilateral foot surgery d/t rsd, numerous pain clinic procedures, nerve stimulator in back to tx RSD placed in Nov 11 2015, pain pump placement, Past Anesthesia/Blood Transfusion Reactions: Previous Problems w/ Anesthesia Additional Past Anesthesia/Blood Transfusion Reaction / Comment(s): Pt recieved blood when she was 2 yrs old after tonsillectomy. WHEN BABY HEART STOPPED TWICE- PT STATED SHE WAS ALLERGIC TO ETHER. Past Psychological History: Anxiety, Bipolar, Depression, PTSD Smoking Status: Never smoker Past Alcohol Use History: None Reported Past Drug Use History: Marijuana - Past Family History Father History Unknown: Yes Family Medical History: Diabetes Mellitus Mother Family Medical History: Cancer, CVA/TIA, Diabetes Mellitus, Myocardial Infarction ([place]) Additional Family Medical History / Comment(s): Mother has had 5 CVAs, 3 MIs and UTERINE CANCER General Exam Limitations: no limitations General appearance: alert, in no apparent distress Head exam: Present: atraumatic, normocephalic, normal inspection Eye exam: Present: normal appearance, PERRL, EOMI Pupils: Present: normal accommodation ENT exam: Present: normal exam, normal oropharynx, mucous membranes moist Neck exam: Present: normal inspection, full ROM. Absent: tenderness, lymphadenopathy Respiratory exam: Present: normal lung sounds bilaterally. Absent: respiratory distress, wheezes, rales Cardiovascular Exam: Present: regular rate, normal rhythm, normal heart sounds. Absent: systolic murmur Extremities exam: Present: normal inspection, full ROM Back exam: Present: normal inspection, full ROM. Absent: tenderness, CVA tenderness (R), CVA tenderness (L) Neurological exam: Present: alert, oriented X3, CN II-XII intact, normal gait Psychiatric exam: Present: normal affect, normal mood Skin exam: Present: warm, dry, intact, normal color Course Vital Signs 10/12/20 10/12/20 20:06 20:14 Temperature 98.4 F 98.4 F Pulse Rate 99 85 Respiratory 18 18 Rate Blood Pressure 150/95 151/104 O2 Sat by Pulse 98 98 Oximetry Medical Decision Making - Medical Decision Making Acute on chronic migraine headache. Toradol Reglan and Benadryl improved her symptoms. She feels comfortable going home. Case discussed with physician. Disposition Clinical Impression: Headache Disposition: HOME SELF-CARE Condition: Stable Instructions (If sedation given, give patient instructions): Acute Headache (ED) Additional Instructions: Please return to the Emergency Department if symptoms worsen or any other concerns. Is patient prescribed a controlled substance at d/c from ED?: No Referrals: China Doyle MD [Primary Care Provider] - 1-2 days Time of Disposition: 22:01
[2020-10-12 22:12] VITALS: BP 146/99
== END 2020-10-12 22:12 | disposition home or self-care (01) ==
LOC: EC 20:00
DX: R51.9 Headache, unspecified (principal); E78.5 Hyperlipidemia, unspecified; J45.909 Unspecified asthma, uncomplicated; K21.9 Gastro-esophageal reflux disease without esophagitis; G40.909 Epilepsy, unspecified, not intractable, without status epilepticus; M19.90 Unspecified osteoarthritis, unspecified site; F31.9 Bipolar disorder, unspecified; F41.9 Anxiety disorder, unspecified; F12.90 Cannabis use, unspecified, uncomplicated; Z83.3 Family history of diabetes mellitus; Z82.49 Family history of ischemic heart disease and other diseases of the circulatory system; Z79.51 Long term (current) use of inhaled steroids; Z79.1 Long term (current) use of non-steroidal anti-inflammatories (NSAID); Z79.899 Other long term (current) drug therapy; Z79.891 Long term (current) use of opiate analgesic; Z88.1 Allergy status to other antibiotic agents; Z88.6 Allergy status to analgesic agent; Z88.8 Allergy status to other drugs, medicaments and biological substances
CPT/HCPCS: 96372 ×4; 99284; J1200; J2765; J1885

== ENCOUNTER 2020-10-16 11:37 | Emergency (ER) | payer MEDICARE, OTHER ==
[2020-10-16 11:40] VITALS: PULSE 118; RESP 18; TEMP 98
[2020-10-16] MEDS ORDERED: METOCLOPRAMIDE 5 MG/ML 2 ML VIAL IM STA (11:57)
[2020-10-16] MEDS ORDERED: HYDROmorphone 1 MG/ML 1 ML SYRINGE IM STA (11:57)
--- NOTE | 2020-10-16 12:10 | ED ---
Headache HPI - General Chief Complaint: Headache Stated Complaint: migraine Time Seen by Provider: 10/16/20 11:48 Source: patient, RN notes reviewed Mode of arrival: ambulatory Limitations: no limitations - History of Present Illness Initial Comments: 34-year-old female presents emergency Department chief complaint of migraine headache. This is an ongoing issue this is a chronic problem. Patient states that her pain pump is currently not working. Patient states her neurologist is no. She has any fevers chills no neck pain no trauma. Patient states is not the worse headache of her life is not a sudden onset. Patient states she just occasionally cannot keep her meds down which is not helping. - Related Data Home Medications Medication Instructions Recorded Confirmed Medroxyprogesterone Acetate 150 mg IM Q84D 11/22/13 10/07/20 [Depo-Provera] rOPINIRole HCL [Requip] 1 mg PO BID@0900,1200 11/22/13 10/07/20 Pentosan Polysulfate Sodium 100 mg PO DAILY 02/10/15 10/07/20 [Elmiron] HYDROcodone/APAP 7.5-325MG [[place] 1 tab PO BID 07/20/16 10/07/20 7.5-325] Paliperidone IM Pt Own [Invega 117 mg IM Q28D 07/20/16 10/07/20 Sustenna] amantadine HCL [Symmetrel] 100 mg PO BID 11/21/16 10/07/20 Albuterol Sulfate [Proair Hfa] 2 puff INHALATION RT-QID PRN 01/13/18 10/07/20 Butalb/Acetaminophen/Caffeine 1 tab PO Q8H PRN 01/13/18 10/07/20 [Fioricet 50-325-40] Fluticasone Propionate [Flovent 1 puff INHALATION RT-BID 01/13/18 10/07/20 Hfa 110 mcg] Gemfibrozil [Lopid] 600 mg PO BID 01/13/18 10/07/20 Gabapentin [Neurontin] 300 mg PO TID 03/11/18 10/07/20 Gabapentin [Neurontin] 600 mg PO TID 09/16/19 10/07/20 Omeprazole [PriLOSEC] 40 mg PO DAILY 09/16/19 10/07/20 rOPINIRole HCL [Requip] 2 mg PO HS 09/16/19 10/07/20 traZODone HCL 300 mg PO HS 09/16/19 10/07/20 hydrOXYzine pamoate [hydrOXYzine 25 mg PO BID 04/13/20 10/07/20 PAMOATE] Cyclobenzaprine [Flexeril] 10 mg PO TID PRN 08/16/20 10/07/20 Fentanyl/Bupivcaine Pain Pump 1 dose INTRATHECA CONTINUOUS 08/16/20 10/07/20 Ibuprofen [Motrin] 600 mg PO TID PRN 10/07/20 10/07/20 diphenhydrAMINE [Benadryl] 50 mg PO DAILY PRN 10/07/20 10/07/20 Previous Rx's Medication Instructions Recorded Erythromycin Ophth Oint [Romycin 1 applic RIGHT EYE QID #1 bottle 10/03/20 Ophth Oint] Ondansetron Odt [Zofran Odt] 4 mg PO Q8HR PRN #14 tab 10/16/20 Allergies Allergy/AdvReac Type Severity Reaction Status Date / Time azithromycin Allergy Rash/Hives Verified 10/16/20 11:41 [From Zithromax Z-Mehrdad] cimetidine [From Tagamet] Allergy Rash/Hives Verified 10/16/20 11:41 ether [Ether] Allergy Anaphylaxis Verified 10/16/20 11:41 Fish Containing Products Allergy Anaphylaxis Verified 10/16/20 11:41 [Fish] ketorolac tromethamine Allergy Rash/Hives Verified 10/16/20 11:41 [From Toradol] morphine Allergy Unknown Verified 10/16/20 11:41 ziprasidone HCl [From Geodon] Allergy Extrapyramidal Verified 10/16/20 11:41 Symptoms fluphenazine HCl AdvReac Extrapyramidal Verified 10/16/20 11:41 [From Prolixin] Symptoms haloperidol [From Haldol] AdvReac Extrapyramidal Verified 10/16/20 11:41 Symptoms Sulfa (Sulfonamide AdvReac Nausea & Verified 10/16/20 11:41 Antibiotics) Vomiting Review of Systems ROS Statement: Those systems with pertinent positive or pertinent negative responses have been documented in the HPI. ROS Other: All systems not noted in ROS Statement are negative. Past Medical History Past Medical History: Asthma, GERD/Reflux, Hyperlipidemia, Musculoskeletal Disorder, Neurologic Disorder, Osteoarthritis (OA), Seizure Disorder Additional Past Medical History / Comment(s): RSD-DERIC FEET, INTERSTITIAL CYSTITIS, BRONCHITIS, HEMORRHOIDS,MIGRAINES, INSOMNIA. VERTIGO, last seizure 4 years ago, complex regional pain syndrome, RLS. History of Any Multi-Drug Resistant Organisms: MRSA Date of last positivie culture/infection: 04/20/15 MDRO Source:: Left Axilla Past Surgical History: Adenoidectomy, Back Surgery, Cholecystectomy, Orthopedic Surgery, Tonsillectomy Additional Past Surgical History / Comment(s): bilateral foot surgery d/t rsd, numerous pain clinic procedures, nerve stimulator in back to tx RSD placed in Nov 11 2015, pain pump placement, Past Anesthesia/Blood Transfusion Reactions: Previous Problems w/ Anesthesia Additional Past Anesthesia/Blood Transfusion Reaction / Comment(s): Pt recieved blood when she was 2 yrs old after tonsillectomy. WHEN BABY HEART STOPPED TWICE- PT STATED SHE WAS ALLERGIC TO ETHER. Past Psychological History: Anxiety, Bipolar, Depression, PTSD Smoking Status: Never smoker Past Alcohol Use History: None Reported Past Drug Use History: Marijuana - Past Family History Father History Unknown: Yes Family Medical History: Diabetes Mellitus Mother Family Medical History: Cancer, CVA/TIA, Diabetes Mellitus, Myocardial Infarction ([place]) Additional Family Medical History / Comment(s): Mother has had 5 CVAs, 3 MIs and UTERINE CANCER General Exam Limitations: no limitations General appearance: alert, in no apparent distress Head exam: Present: atraumatic, normocephalic, normal inspection Eye exam: Present: normal appearance, PERRL, EOMI. Absent: scleral icterus, conjunctival injection, periorbital swelling ENT exam: Present: normal exam, normal oropharynx, mucous membranes moist, TM's normal bilaterally Neck exam: Present: normal inspection, full ROM. Absent: tenderness, meningismus, lymphadenopathy Respiratory exam: Present: normal lung sounds bilaterally. Absent: respiratory distress, wheezes, rales, rhonchi, stridor Cardiovascular Exam: Present: regular rate, normal rhythm, normal heart sounds. Absent: systolic murmur, diastolic murmur, rubs, gallop, clicks Neurological exam: Present: alert, oriented X3, CN II-XII intact, reflexes normal. Absent: motor sensory deficit Course Vital Signs 10/16/20 11:38 Temperature 98.0 F Pulse Rate 118 H Respiratory 18 Rate Blood Pressure 134/80 O2 Sat by Pulse 96 Oximetry Medical Decision Making - Medical Decision Making Patient was provided pain relief, antiemetics. Patient has no nonfocal deficits no meningismus. Patient discharged in stable condition. Disposition Clinical Impression: Migraine Disposition: HOME SELF-CARE Condition: Stable Instructions (If sedation given, give patient instructions): Acute Headache (ED) Additional Instructions: Please return to the Emergency Department if symptoms worsen or any other concerns. Prescriptions: Ondansetron Odt [Zofran Odt] 4 mg PO Q8HR PRN #14 tab PRN Reason: Nausea Is patient prescribed a controlled substance at d/c from ED?: No Referrals: China Doyle MD [Primary Care Provider] - 1-2 days Time of Disposition: 12:09
[2020-10-16 12:26] VITALS: BP 143/90
== END 2020-10-16 12:26 | disposition home or self-care (01) ==
LOC: EC 11:37
DX: G43.909 Migraine, unspecified, not intractable, without status migrainosus (principal); G40.909 Epilepsy, unspecified, not intractable, without status epilepticus; E78.5 Hyperlipidemia, unspecified; F31.9 Bipolar disorder, unspecified; F41.9 Anxiety disorder, unspecified; J45.909 Unspecified asthma, uncomplicated; K21.9 Gastro-esophageal reflux disease without esophagitis; Z87.19 Personal history of other diseases of the digestive system; F12.90 Cannabis use, unspecified, uncomplicated
CPT/HCPCS: 99283; 96372 ×2; J2765; J1170

== ENCOUNTER 2020-10-18 18:02 | Emergency (ER) | payer MEDICARE, OTHER ==
[2020-10-18 18:13] VITALS: BP 128/87; PULSE 102; RESP 18; TEMP 98.4
[2020-10-18] MEDS ORDERED: diphenhydrAMINE 50 MG/ML 1 ML VIAL IM STA (18:42)
[2020-10-18] MEDS ORDERED: KETOROLAC 15 MG/ML 1 ML VIAL IM STA (18:42)
--- NOTE | 2020-10-18 18:47 | ED ---
Extremity Problem HPI - General Chief complaint: Extremity Problem,Nontraumatic Stated complaint: leg pain Time Seen by Provider: 10/18/20 18:33 Source: patient Mode of arrival: ambulatory Limitations: no limitations - History of Present Illness Initial comments: This 34-year-old female presents with a complaint of chronic pain issues. She has tonic pain to her bilateral hips and bilateral lower extremities which she relates is due to reflex sympathetic dystrophy. She normally utilizes a pain pump with this apparently has been off for the last 3 months. She sees a chronic pain doctor who placed this pump. She apparently had problems with it giving her too much medicine so was turned off. She is following up with them in approximately 6 days. She states that she normally will get a shot of Toradol and Benadryl and oftentimes will have relief. Toradol is listed on her ALLERGIES but she states that she has had it many times and does not have a problems long that she gets Benadryl. She denies any new injuries. There is no other complaints or modifying factors. This is her fourth or fifth visit this month for similar. - Related Data Home Medications Medication Instructions Recorded Confirmed Medroxyprogesterone Acetate 150 mg IM Q84D 11/22/13 10/07/20 [Depo-Provera] rOPINIRole HCL [Requip] 1 mg PO BID@0900,1200 11/22/13 10/07/20 Pentosan Polysulfate Sodium 100 mg PO DAILY 02/10/15 10/07/20 [Elmiron] HYDROcodone/APAP 7.5-325MG [[place] 1 tab PO BID 07/20/16 10/07/20 7.5-325] Paliperidone IM Pt Own [Invega 117 mg IM Q28D 07/20/16 10/07/20 Sustenna] amantadine HCL [Symmetrel] 100 mg PO BID 11/21/16 10/07/20 Albuterol Sulfate [Proair Hfa] 2 puff INHALATION RT-QID PRN 01/13/18 10/07/20 Butalb/Acetaminophen/Caffeine 1 tab PO Q8H PRN 01/13/18 10/07/20 [Fioricet 50-325-40] Fluticasone Propionate [Flovent 1 puff INHALATION RT-BID 01/13/18 10/07/20 Hfa 110 mcg] Gemfibrozil [Lopid] 600 mg PO BID 01/13/18 10/07/20 Gabapentin [Neurontin] 300 mg PO TID 03/11/18 10/07/20 Gabapentin [Neurontin] 600 mg PO TID 09/16/19 10/07/20 Omeprazole [PriLOSEC] 40 mg PO DAILY 09/16/19 10/07/20 rOPINIRole HCL [Requip] 2 mg PO HS 09/16/19 10/07/20 traZODone HCL 300 mg PO HS 09/16/19 10/07/20 hydrOXYzine pamoate [hydrOXYzine 25 mg PO BID 04/13/20 10/07/20 PAMOATE] Cyclobenzaprine [Flexeril] 10 mg PO TID PRN 08/16/20 10/07/20 Fentanyl/Bupivcaine Pain Pump 1 dose INTRATHECA CONTINUOUS 08/16/20 10/07/20 Ibuprofen [Motrin] 600 mg PO TID PRN 10/07/20 10/07/20 diphenhydrAMINE [Benadryl] 50 mg PO DAILY PRN 10/07/20 10/07/20 Previous Rx's Medication Instructions Recorded Erythromycin Ophth Oint [Romycin 1 applic RIGHT EYE QID #1 bottle 10/03/20 Ophth Oint] Ondansetron Odt [Zofran Odt] 4 mg PO Q8HR PRN #14 tab 10/16/20 Allergies Allergy/AdvReac Type Severity Reaction Status Date / Time azithromycin Allergy Rash/Hives Verified 10/18/20 18:13 [From Zithromax Z-Mehrdad] cimetidine [From Tagamet] Allergy Rash/Hives Verified 10/18/20 18:13 ether [Ether] Allergy Anaphylaxis Verified 10/18/20 18:13 Fish Containing Products Allergy Anaphylaxis Verified 10/18/20 18:13 [Fish] ketorolac tromethamine Allergy Rash/Hives Verified 10/18/20 18:13 [From Toradol] morphine Allergy Unknown Verified 10/18/20 18:13 ziprasidone HCl [From Geodon] Allergy Extrapyramidal Verified 10/18/20 18:13 Symptoms fluphenazine HCl AdvReac Extrapyramidal Verified 10/18/20 18:13 [From Prolixin] Symptoms haloperidol [From Haldol] AdvReac Extrapyramidal Verified 10/18/20 18:13 Symptoms Sulfa (Sulfonamide AdvReac Nausea & Verified 10/18/20 18:13 Antibiotics) Vomiting Review of Systems ROS Statement: Those systems with pertinent positive or pertinent negative responses have been documented in the HPI. ROS Other: All systems not noted in ROS Statement are negative. Past Medical History Past Medical History: Asthma, GERD/Reflux, Hyperlipidemia, Musculoskeletal Disorder, Neurologic Disorder, Osteoarthritis (OA), Seizure Disorder Additional Past Medical History / Comment(s): RSD-DERIC FEET, INTERSTITIAL CYSTITIS, BRONCHITIS, HEMORRHOIDS,MIGRAINES, INSOMNIA. VERTIGO, last seizure 4 years ago, complex regional pain syndrome, RLS. History of Any Multi-Drug Resistant Organisms: MRSA Date of last positivie culture/infection: 04/20/15 MDRO Source:: Left Axilla Past Surgical History: Adenoidectomy, Back Surgery, Cholecystectomy, Orthopedic Surgery, Tonsillectomy Additional Past Surgical History / Comment(s): bilateral foot surgery d/t rsd, numerous pain clinic procedures, nerve stimulator in back to tx RSD placed in Nov 11 2015, pain pump placement, Past Anesthesia/Blood Transfusion Reactions: Previous Problems w/ Anesthesia Additional Past Anesthesia/Blood Transfusion Reaction / Comment(s): Pt recieved blood when she was 2 yrs old after tonsillectomy. WHEN BABY HEART STOPPED TWICE- PT STATED SHE WAS ALLERGIC TO ETHER. Past Psychological History: Anxiety, Bipolar, Depression, PTSD Smoking Status: Never smoker Past Alcohol Use History: None Reported Past Drug Use History: Marijuana - Past Family History Father History Unknown: Yes Family Medical History: Diabetes Mellitus Mother Family Medical History: Cancer, CVA/TIA, Diabetes Mellitus, Myocardial Infarction ([place]) Additional Family Medical History / Comment(s): Mother has had 5 CVAs, 3 MIs and UTERINE CANCER General Exam - General Exam Comments Initial Comments: GENERAL: The patient is well nourished and well hydrated. VITAL SIGNS: Heart rate, blood pressure, respiratory rate reviewed as recorded in nurse's notes. EYES: Pupils are round and reactive. Extraocular movements are intact. No conjunctival / lid redness or swelling. ENT: No external evidence of injury, swelling, or ecchymosis. Airway is patent. Throat is clear. NECK: Nontender. No swelling or evidence of injury. No subcutaneous emphysema. Trachea is midline. No thyroid mass. HEART: Regular rate and rhythm. Good peripheral pulses. LUNGS/CHEST: Breath sounds clear and equal bilaterally. No rales, rhonchi, or wheezes. No ecchymosis, subcutaneous emphysema, or tenderness. ABDOMEN: Abdomen soft without tenderness. No palpable masses or organomegaly. No peritoneal signs. No abdominal wall swelling or ecchymosis. EXTREMITIES: There is mild diffuse tenderness to extremities. No swelling. NEUROLOGIC: Sensation is grossly intact. Cranial nerve exam reveals face is sym metrical, tongue is midline, speech is clear. SKIN: No abrasions or ecchymosis is noted. No induration or masses noted. PSYCHIATRIC: Alert and oriented. Appropriate behavior and judgment. Limitations: no limitations Course Vital Signs 10/18/20 18:10 Temperature 98.4 F Pulse Rate 102 H Respiratory 18 Rate Blood Pressure 128/87 O2 Sat by Pulse 98 Oximetry Medical Decision Making - Medical Decision Making The patient was seen and examined. Old records are reviewed. The patient apparently has been here 4-5 times this month already. She has been significant chronic pain issues. She relates that she finally has been able to contact her doctor/neurologist and has an appointment for next Saturday, and 6 days. She is given Toradol and Benadryl IM. It is felt as though she is stable for discharge and leaves in no distress. She already is on Requip, [place], and Neurontin at home. She is to continue these medications. Disposition Clinical Impression: Chronic pain of lower extremity, Reflex sympathetic dystrophy Disposition: HOME SELF-CARE Condition: Good Instructions (If sedation given, give patient instructions): Chronic Pain (ED) Is patient prescribed a controlled substance at d/c from ED?: No Referrals: China Doyle MD [Primary Care Provider] - 1-2 days Time of Disposition: 18:47
== END 2020-10-18 19:04 | disposition home or self-care (01) ==
LOC: EC 18:02
DX: G90.523 Complex regional pain syndrome I of lower limb, bilateral (principal); M79.605 Pain in left leg; M79.604 Pain in right leg; E78.5 Hyperlipidemia, unspecified; J45.909 Unspecified asthma, uncomplicated; G40.909 Epilepsy, unspecified, not intractable, without status epilepticus; K21.9 Gastro-esophageal reflux disease without esophagitis; M19.90 Unspecified osteoarthritis, unspecified site; F31.9 Bipolar disorder, unspecified; F41.9 Anxiety disorder, unspecified; F12.90 Cannabis use, unspecified, uncomplicated; Z79.891 Long term (current) use of opiate analgesic; Z79.1 Long term (current) use of non-steroidal anti-inflammatories (NSAID); Z79.899 Other long term (current) drug therapy; Z88.1 Allergy status to other antibiotic agents; Z88.8 Allergy status to other drugs, medicaments and biological substances; Z83.3 Family history of diabetes mellitus; Z82.49 Family history of ischemic heart disease and other diseases of the circulatory system
CPT/HCPCS: 96372 ×2; 99283; J1200; J1885

== ENCOUNTER 2020-10-24 16:35 | Emergency (ER) | payer MEDICARE, OTHER ==
[2020-10-24 16:44] VITALS: BP 167/121; PULSE 81; RESP 16; TEMP 98.2
[2020-10-24] MEDS ORDERED: KETOROLAC 15 MG/ML 1 ML VIAL IM STA (16:58)
[2020-10-24] MEDS ORDERED: diphenhydrAMINE 50 MG/ML 1 ML VIAL IM STA (16:58)
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
== END 2020-10-24 17:48 | disposition home or self-care (01) ==
LOC: EC 16:35
DX: G89.29 Other chronic pain (principal); M79.604 Pain in right leg; M79.605 Pain in left leg; E78.5 Hyperlipidemia, unspecified; G25.81 Restless legs syndrome; J45.909 Unspecified asthma, uncomplicated; K21.9 Gastro-esophageal reflux disease without esophagitis; G47.00 Insomnia, unspecified; G40.909 Epilepsy, unspecified, not intractable, without status epilepticus; F12.90 Cannabis use, unspecified, uncomplicated; M19.90 Unspecified osteoarthritis, unspecified site; G43.909 Migraine, unspecified, not intractable, without status migrainosus; F41.9 Anxiety disorder, unspecified; F31.9 Bipolar disorder, unspecified; Z87.19 Personal history of other diseases of the digestive system; Z79.1 Long term (current) use of non-steroidal anti-inflammatories (NSAID); Z79.3 Long term (current) use of hormonal contraceptives; Z79.51 Long term (current) use of inhaled steroids
CPT/HCPCS: 99283; 96372 ×2; J1200; J1885

== ENCOUNTER 2020-10-31 15:56 | Emergency (ER) | payer MEDICARE, OTHER ==
[2020-10-31 16:20] VITALS: BP 126/76; PULSE 100; RESP 16; TEMP 98.8
[2020-10-31] MEDS ORDERED: KETOROLAC 15 MG/ML 1 ML VIAL IM STA (17:21)
[2020-10-31] MEDS ORDERED: diphenhydrAMINE 50 MG/ML 1 ML VIAL IM STA (17:21)
--- NOTE | 2020-10-31 17:23 | ED ---
General Adult HPI - General Chief complaint: Extremity Problem,Nontraumatic Stated complaint: pain in legs Time Seen by Provider: 10/31/20 17:02 Source: patient Mode of arrival: ambulatory Limitations: no limitations - History of Present Illness Initial comments: Dictation was produced using [employer] dictation software. please excuse any grammatical, word or spelling errors. Chief Complaint: 34-year-old female presents to the emergency department for a Toradol shot and Benadryl History of Present Illness: 34 yo female presents with request for IM Toradol shot and I am Benadryl shot. Patient has history of chronic pain. This is her sixth visit in the last 4 weeks patient is well-known to emergency department and requests Toradol and Benadryl shots for chronic pain. Patient has history of chronic pain. She sees a pain specialist. Patient states that her chronic pain is acting up again. She has no other complaints at this time. She is otherwise doing well. The ROS documented in this emergency department record has been reviewed and confirmed by me. Those systems with pertinent positive or negative responses have been documented in the HPI. All other systems are other negative and/or noncontributory. PHYSICAL EXAM: General Impression: Alert and oriented x3, not in acute distress HEENT: Normocephalic atraumatic, extra-ocular movements intact, pupils equal and reactive to light bilaterally, mucous membranes moist. Chest: Able to complete full sentences, no retractions, no tachypnea Musculoskeletal: Pulses present and equal in all extremities, no peripheral edema Motor: no focal deficits noted Neurological: CN II-XII grossly intact, no focal motor or sensory deficits noted Skin: Intact with no visualized rashes Psych: Normal affect and mood ED course: 34-year-old female presents with request for IM Toradol and IM Benadryl for acute on chronic exacerbation of bilateral leg pain. Vital signs are stable. IM shot administered. Patient discharged. - Related Data Home Medications Medication Instructions Recorded Confirmed Medroxyprogesterone Acetate 150 mg IM Q84D 11/22/13 10/07/20 [Depo-Provera] rOPINIRole HCL [Requip] 1 mg PO BID@0900,1200 11/22/13 10/07/20 Pentosan Polysulfate Sodium 100 mg PO DAILY 02/10/15 10/07/20 [Elmiron] HYDROcodone/APAP 7.5-325MG [[place] 1 tab PO BID 07/20/16 10/07/20 7.5-325] Paliperidone IM Pt Own [Invega 117 mg IM Q28D 07/20/16 10/07/20 Sustenna] amantadine HCL [Symmetrel] 100 mg PO BID 11/21/16 10/07/20 Albuterol Sulfate [Proair Hfa] 2 puff INHALATION RT-QID PRN 01/13/18 10/07/20 Butalb/Acetaminophen/Caffeine 1 tab PO Q8H PRN 01/13/18 10/07/20 [Fioricet 50-325-40] Fluticasone Propionate [Flovent 1 puff INHALATION RT-BID 01/13/18 10/07/20 Hfa 110 mcg] Gemfibrozil [Lopid] 600 mg PO BID 01/13/18 10/07/20 Gabapentin [Neurontin] 300 mg PO TID 03/11/18 10/07/20 Gabapentin [Neurontin] 600 mg PO TID 09/16/19 10/07/20 Omeprazole [PriLOSEC] 40 mg PO DAILY 09/16/19 10/07/20 rOPINIRole HCL [Requip] 2 mg PO HS 09/16/19 10/07/20 traZODone HCL 300 mg PO HS 09/16/19 10/07/20 hydrOXYzine pamoate [hydrOXYzine 25 mg PO BID 04/13/20 10/07/20 PAMOATE] Cyclobenzaprine [Flexeril] 10 mg PO TID PRN 08/16/20 10/07/20 Fentanyl/Bupivcaine Pain Pump 1 dose INTRATHECA CONTINUOUS 08/16/20 10/07/20 Ibuprofen [Motrin] 600 mg PO TID PRN 10/07/20 10/07/20 diphenhydrAMINE [Benadryl] 50 mg PO DAILY PRN 10/07/20 10/07/20 Previous Rx's Medication Instructions Recorded Erythromycin Ophth Oint [Romycin 1 applic RIGHT EYE QID #1 bottle 10/03/20 Ophth Oint] Ondansetron Odt [Zofran Odt] 4 mg PO Q8HR PRN #14 tab 10/16/20 Allergies Allergy/AdvReac Type Severity Reaction Status Date / Time azithromycin Allergy Rash/Hives Verified 10/31/20 16:18 [From Zithromax Z-Mehrdad] cimetidine [From Tagamet] Allergy Rash/Hives Verified 10/31/20 16:18 ether [Ether] Allergy Anaphylaxis Verified 10/31/20 16:18 Fish Containing Products Allergy Anaphylaxis Verified 10/31/20 16:18 [Fish] ketorolac tromethamine Allergy Rash/Hives Verified 10/31/20 16:18 [From Toradol] morphine Allergy Unknown Verified 10/31/20 16:18 ziprasidone HCl [From Geodon] Allergy Extrapyramidal Verified 10/31/20 16:18 Symptoms fluphenazine HCl AdvReac Extrapyramidal Verified 10/31/20 16:18 [From Prolixin] Symptoms haloperidol [From Haldol] AdvReac Extrapyramidal Verified 10/31/20 16:18 Symptoms Sulfa (Sulfonamide AdvReac Nausea & Verified 10/31/20 16:18 Antibiotics) Vomiting Review of Systems ROS Statement: Those systems with pertinent positive or pertinent negative responses have been documented in the HPI. ROS Other: All systems not noted in ROS Statement are negative. Past Medical History Past Medical History: Asthma, GERD/Reflux, Hyperlipidemia, Musculoskeletal Disorder, Neurologic Disorder, Osteoarthritis (OA), Seizure Disorder Additional Past Medical History / Comment(s): RSD-DERIC FEET, INTERSTITIAL CYSTITIS, BRONCHITIS, HEMORRHOIDS,MIGRAINES, INSOMNIA. VERTIGO, last seizure 4 years ago, complex regional pain syndrome, RLS. History of Any Multi-Drug Resistant Organisms: MRSA Date of last positivie culture/infection: 04/20/15 MDRO Source:: Left Axilla Past Surgical History: Adenoidectomy, Back Surgery, Cholecystectomy, Orthopedic Surgery, Tonsillectomy Additional Past Surgical History / Comment(s): bilateral foot surgery d/t rsd, numerous pain clinic procedures, nerve stimulator in back to tx RSD placed in Nov 11 2015, pain pump placement, Past Anesthesia/Blood Transfusion Reactions: Previous Problems w/ Anesthesia Additional Past Anesthesia/Blood Transfusion Reaction / Comment(s): Pt recieved blood when she was 2 yrs old after tonsillectomy. WHEN BABY HEART STOPPED TWICE- PT STATED SHE WAS ALLERGIC TO ETHER. Past Psychological History: Anxiety, Bipolar, Depression, PTSD Smoking Status: Never smoker Past Alcohol Use History: None Reported Past Drug Use History: Marijuana - Past Family History Father History Unknown: Yes Family Medical History: Diabetes Mellitus Mother Family Medical History: Cancer, CVA/TIA, Diabetes Mellitus, Myocardial Infarction ([place]) Additional Family Medical History / Comment(s): Mother has had 5 CVAs, 3 MIs and UTERINE CANCER General Exam Limitations: no limitations Course Vital Signs 10/31/20 16:18 Temperature 98.8 F Pulse Rate 100 Respiratory 16 Rate Blood Pressure 126/76 O2 Sat by Pulse 96 Oximetry Disposition Clinical Impression: Leg pain Disposition: HOME SELF-CARE Condition: Good Instructions (If sedation given, give patient instructions): Pain Management (ED) Is patient prescribed a controlled substance at d/c from ED?: No Referrals: China Doyle MD [Primary Care Provider] - 1-2 days
== END 2020-10-31 17:40 | disposition home or self-care (01) ==
LOC: EC 15:56
DX: M79.605 Pain in left leg (principal); M79.604 Pain in right leg; J45.909 Unspecified asthma, uncomplicated; K21.9 Gastro-esophageal reflux disease without esophagitis; E78.5 Hyperlipidemia, unspecified; G89.29 Other chronic pain; G40.909 Epilepsy, unspecified, not intractable, without status epilepticus; N30.10 Interstitial cystitis (chronic) without hematuria; M19.90 Unspecified osteoarthritis, unspecified site; G47.00 Insomnia, unspecified; G43.909 Migraine, unspecified, not intractable, without status migrainosus; G25.81 Restless legs syndrome; F41.9 Anxiety disorder, unspecified; F31.9 Bipolar disorder, unspecified; F12.90 Cannabis use, unspecified, uncomplicated; Z87.19 Personal history of other diseases of the digestive system; Z79.1 Long term (current) use of non-steroidal anti-inflammatories (NSAID); Z79.51 Long term (current) use of inhaled steroids; Z79.3 Long term (current) use of hormonal contraceptives; Z90.49 Acquired absence of other specified parts of digestive tract
CPT/HCPCS: 99283; 96372 ×2; J1200; J1885

== ENCOUNTER 2020-11-12 16:58 | Emergency (ER) | payer MEDICARE, OTHER ==
[2020-11-12 17:07] VITALS: BP 143/87; PULSE 88; RESP 20; TEMP 98.1
[2020-11-12] MEDS ORDERED: HYDROmorphone 1 MG/ML 1 ML SYRINGE IM STA (17:15)
--- NOTE | 2020-11-12 17:17 | ED ---
Extremity Problem HPI - General Chief complaint: Extremity Problem,Nontraumatic Stated complaint: bilat leg pain Time Seen by Provider: 11/12/20 17:15 Source: patient, RN notes reviewed Mode of arrival: ambulatory Limitations: no limitations - History of Present Illness Initial comments: 35-year-old female presents emergency apartment with chief complaint of bilateral leg pain. Patient states she has more related left leg pain and right leg pain. She is scheduled for surgery for her pain stimulator nerve stimulator. Patient states that this has been pushed back. Patient states she's having increasing pain today denies any bowel bladder incontinence or retention no saddle anesthesias or lower shunted paresthesias. - Related Data Home Medications Medication Instructions Recorded Confirmed Medroxyprogesterone Acetate 150 mg IM Q84D 11/22/13 10/07/20 [Depo-Provera] rOPINIRole HCL [Requip] 1 mg PO BID@0900,1200 11/22/13 10/07/20 Pentosan Polysulfate Sodium 100 mg PO DAILY 02/10/15 10/07/20 [Elmiron] HYDROcodone/APAP 7.5-325MG [[place] 1 tab PO BID 07/20/16 10/07/20 7.5-325] Paliperidone IM Pt Own [Invega 117 mg IM Q28D 07/20/16 10/07/20 Sustenna] amantadine HCL [Symmetrel] 100 mg PO BID 11/21/16 10/07/20 Albuterol Sulfate [Proair Hfa] 2 puff INHALATION RT-QID PRN 01/13/18 10/07/20 Butalb/Acetaminophen/Caffeine 1 tab PO Q8H PRN 01/13/18 10/07/20 [Fioricet 50-325-40] Fluticasone Propionate [Flovent 1 puff INHALATION RT-BID 01/13/18 10/07/20 Hfa 110 mcg] Gemfibrozil [Lopid] 600 mg PO BID 01/13/18 10/07/20 Gabapentin [Neurontin] 300 mg PO TID 03/11/18 10/07/20 Gabapentin [Neurontin] 600 mg PO TID 09/16/19 10/07/20 Omeprazole [PriLOSEC] 40 mg PO DAILY 09/16/19 10/07/20 rOPINIRole HCL [Requip] 2 mg PO HS 09/16/19 10/07/20 traZODone HCL 300 mg PO HS 09/16/19 10/07/20 hydrOXYzine pamoate [hydrOXYzine 25 mg PO BID 04/13/20 10/07/20 PAMOATE] Cyclobenzaprine [Flexeril] 10 mg PO TID PRN 08/16/20 10/07/20 Fentanyl/Bupivcaine Pain Pump 1 dose INTRATHECA CONTINUOUS 08/16/20 10/07/20 Ibuprofen [Motrin] 600 mg PO TID PRN 10/07/20 10/07/20 diphenhydrAMINE [Benadryl] 50 mg PO DAILY PRN 10/07/20 10/07/20 Previous Rx's Medication Instructions Recorded Erythromycin Ophth Oint [Romycin 1 applic RIGHT EYE QID #1 bottle 10/03/20 Ophth Oint] Ondansetron Odt [Zofran Odt] 4 mg PO Q8HR PRN #14 tab 10/16/20 Allergies Allergy/AdvReac Type Severity Reaction Status Date / Time azithromycin Allergy Rash/Hives Verified 11/12/20 17:07 [From Zithromax Z-Mehrdad] cimetidine [From Tagamet] Allergy Rash/Hives Verified 11/12/20 17:07 ether [Ether] Allergy Anaphylaxis Verified 11/12/20 17:07 Fish Containing Products Allergy Anaphylaxis Verified 11/12/20 17:07 [Fish] ketorolac tromethamine Allergy Rash/Hives Verified 11/12/20 17:07 [From Toradol] morphine Allergy Unknown Verified 11/12/20 17:07 ziprasidone HCl [From Geodon] Allergy Extrapyramidal Verified 11/12/20 17:07 Symptoms fluphenazine HCl AdvReac Extrapyramidal Verified 11/12/20 17:07 [From Prolixin] Symptoms haloperidol [From Haldol] AdvReac Extrapyramidal Verified 11/12/20 17:07 Symptoms Sulfa (Sulfonamide AdvReac Nausea & Verified 11/12/20 17:07 Antibiotics) Vomiting Review of Systems ROS Statement: Those systems with pertinent positive or pertinent negative responses have been documented in the HPI. ROS Other: All systems not noted in ROS Statement are negative. Past Medical History Past Medical History: Asthma, GERD/Reflux, Hyperlipidemia, Musculoskeletal Disorder, Neurologic Disorder, Osteoarthritis (OA), Seizure Disorder Additional Past Medical History / Comment(s): RSD-DERIC FEET, INTERSTITIAL CY STITIS, BRONCHITIS, HEMORRHOIDS,MIGRAINES, INSOMNIA. VERTIGO, last seizure 4 years ago, complex regional pain syndrome, RLS. History of Any Multi-Drug Resistant Organisms: MRSA Date of last positivie culture/infection: 04/20/15 MDRO Source:: Left Axilla Past Surgical History: Adenoidectomy, Back Surgery, Cholecystectomy, Orthopedic Surgery, Tonsillectomy Additional Past Surgical History / Comment(s): bilateral foot surgery d/t rsd, numerous pain clinic procedures, nerve stimulator in back to tx RSD placed in Nov 11 2015, pain pump placement, Past Anesthesia/Blood Transfusion Reactions: Previous Problems w/ Anesthesia Additional Past Anesthesia/Blood Transfusion Reaction / Comment(s): Pt recieved blood when she was 2 yrs old after tonsillectomy. WHEN BABY HEART STOPPED TWICE- PT STATED SHE WAS ALLERGIC TO ETHER. Past Psychological History: Anxiety, Bipolar, Depression, PTSD Smoking Status: Never smoker Past Alcohol Use History: None Reported Past Drug Use History: Marijuana - Past Family History Father History Unknown: Yes Family Medical History: Diabetes Mellitus Mother Family Medical History: Cancer, CVA/TIA, Diabetes Mellitus, Myocardial Infarction ([place]) Additional Family Medical History / Comment(s): Mother has had 5 CVAs, 3 MIs and UTERINE CANCER General Exam Limitations: no limitations General appearance: alert, in no apparent distress Head exam: Present: atraumatic, normocephalic, normal inspection Respiratory exam: Present: normal lung sounds bilaterally. Absent: respiratory distress, wheezes, rales, rhonchi, stridor Cardiovascular Exam: Present: regular rate, normal rhythm, normal heart sounds. Absent: systolic murmur, diastolic murmur, rubs, gallop, clicks GI/Abdominal exam: Present: soft, normal bowel sounds. Absent: distended, tenderness, guarding, rebound, rigid Extremities exam: Present: normal inspection, full ROM. Absent: tenderness Back exam: Present: full ROM, tenderness, paraspinal tenderness. Absent: vertebral tenderness Neurological exam: Present: reflexes normal. Absent: motor sensory deficit Course Vital Signs 11/12/20 17:03 Temperature 98.1 F Pulse Rate 88 Respiratory 20 Rate Blood Pressure 143/87 O2 Sat by Pulse 97 Oximetry Medical Decision Making - Medical Decision Making Patient has chronic pain no new symptoms Norflex symptoms of be discharged in stable condition. Disposition Clinical Impression: Chronic pain syndrome, Leg pain Disposition: HOME SELF-CARE Condition: Stable Instructions (If sedation given, give patient instructions): Leg Pain (ED) Additional Instructions: Please return to the Emergency Department if symptoms worsen or any other concerns. Is patient prescribed a controlled substance at d/c from ED?: No Referrals: China Doyle MD [Primary Care Provider] - 1-2 days Time of Disposition: 17:17
== END 2020-11-12 17:48 | disposition home or self-care (01) ==
LOC: EC 16:58
DX: G89.4 Chronic pain syndrome (principal); M79.604 Pain in right leg; M79.605 Pain in left leg; E78.5 Hyperlipidemia, unspecified; G40.909 Epilepsy, unspecified, not intractable, without status epilepticus; F31.9 Bipolar disorder, unspecified; F41.9 Anxiety disorder, unspecified; J45.909 Unspecified asthma, uncomplicated; K21.9 Gastro-esophageal reflux disease without esophagitis; Z79.1 Long term (current) use of non-steroidal anti-inflammatories (NSAID); Z79.3 Long term (current) use of hormonal contraceptives; Z79.899 Other long term (current) drug therapy; Z79.51 Long term (current) use of inhaled steroids; Z87.19 Personal history of other diseases of the digestive system; Z90.49 Acquired absence of other specified parts of digestive tract; Z83.3 Family history of diabetes mellitus; Z82.49 Family history of ischemic heart disease and other diseases of the circulatory system; Z82.3 Family history of stroke
CPT/HCPCS: 96372; 99283; J1170

== ENCOUNTER 2020-11-14 17:25 | Emergency (ER) | payer MEDICARE, OTHER ==
[2020-11-14 17:31] VITALS: BP 133/92; PULSE 85; RESP 18; TEMP 98.1
[2020-11-14] MEDS ORDERED: KETOROLAC 15 MG/ML 1 ML VIAL IM STA (17:46)
[2020-11-14] MEDS ORDERED: diphenhydrAMINE 50 MG/ML 1 ML VIAL IM STA (17:46)
--- NOTE | 2020-11-14 17:57 | ED ---
General Adult HPI - General Chief complaint: Extremity Problem,Nontraumatic Stated complaint: Leg pain, Needs stimulator replaced Time Seen by Provider: 11/14/20 17:35 Source: patient, RN notes reviewed Mode of arrival: ambulatory Limitations: no limitations - History of Present Illness Initial comments: Patient is a 35-year-old female that presents to the emergency department complaining of bilateral lower extremity pain and pain pump malfunction. She notes that she was supposed to be scheduled for surgery care soon but they canceled the do the doctor wanting the original doctor to do the surgery. Patient states that she is in a couple days ago given a shot of Dilaudid but it did not help. She notes that Toradol and Benadryl help her pain. She notes that she is sick of having this pain as is constant and causing her great distress. Patient denied any other issues or complaints at this time. She denied any chest pain shortness of breath headache nausea vomiting diarrhea constipation fever fatigue chills. - Related Data Home Medications Medication Instructions Recorded Confirmed Medroxyprogesterone Acetate 150 mg IM Q84D 11/22/13 10/07/20 [Depo-Provera] rOPINIRole HCL [Requip] 1 mg PO BID@0900,1200 11/22/13 10/07/20 Pentosan Polysulfate Sodium 100 mg PO DAILY 02/10/15 10/07/20 [Elmiron] HYDROcodone/APAP 7.5-325MG [[place] 1 tab PO BID 07/20/16 10/07/20 7.5-325] Paliperidone IM Pt Own [Invega 117 mg IM Q28D 07/20/16 10/07/20 Sustenna] amantadine HCL [Symmetrel] 100 mg PO BID 11/21/16 10/07/20 Albuterol Sulfate [Proair Hfa] 2 puff INHALATION RT-QID PRN 01/13/18 10/07/20 Butalb/Acetaminophen/Caffeine 1 tab PO Q8H PRN 01/13/18 10/07/20 [Fioricet 50-325-40] Fluticasone Propionate [Flovent 1 puff INHALATION RT-BID 01/13/18 10/07/20 Hfa 110 mcg] Gemfibrozil [Lopid] 600 mg PO BID 01/13/18 10/07/20 Gabapentin [Neurontin] 300 mg PO TID 03/11/18 10/07/20 Gabapentin [Neurontin] 600 mg PO TID 09/16/19 10/07/20 Omeprazole [PriLOSEC] 40 mg PO DAILY 09/16/19 10/07/20 rOPINIRole HCL [Requip] 2 mg PO HS 09/16/19 10/07/20 traZODone HCL 300 mg PO HS 09/16/19 10/07/20 hydrOXYzine pamoate [hydrOXYzine 25 mg PO BID 04/13/20 10/07/20 PAMOATE] Cyclobenzaprine [Flexeril] 10 mg PO TID PRN 08/16/20 10/07/20 Fentanyl/Bupivcaine Pain Pump 1 dose INTRATHECA CONTINUOUS 08/16/20 10/07/20 Ibuprofen [Motrin] 600 mg PO TID PRN 10/07/20 10/07/20 diphenhydrAMINE [Benadryl] 50 mg PO DAILY PRN 10/07/20 10/07/20 Previous Rx's Medication Instructions Recorded Erythromycin Ophth Oint [Romycin 1 applic RIGHT EYE QID #1 bottle 10/03/20 Ophth Oint] Ondansetron Odt [Zofran Odt] 4 mg PO Q8HR PRN #14 tab 10/16/20 Allergies Allergy/AdvReac Type Severity Reaction Status Date / Time azithromycin Allergy Rash/Hives Verified 11/14/20 17:31 [From Zithromax Z-Mehrdad] cimetidine [From Tagamet] Allergy Rash/Hives Verified 11/14/20 17:31 ether [Ether] Allergy Anaphylaxis Verified 11/14/20 17:31 Fish Containing Products Allergy Anaphylaxis Verified 11/14/20 17:31 [Fish] ketorolac tromethamine Allergy Rash/Hives Verified 11/14/20 17:31 [From Toradol] morphine Allergy Unknown Verified 11/14/20 17:31 ziprasidone HCl [From Geodon] Allergy Extrapyramidal Verified 11/14/20 17:31 Symptoms fluphenazine HCl AdvReac Extrapyramidal Verified 11/14/20 17:31 [From Prolixin] Symptoms haloperidol [From Haldol] AdvReac Extrapyramidal Verified 11/14/20 17:31 Symptoms Sulfa (Sulfonamide AdvReac Nausea & Verified 11/14/20 17:31 Antibiotics) Vomiting Review of Systems ROS Statement: Those systems with pertinent positive or pertinent negative responses have been documented in the HPI. ROS Other: All systems not noted in ROS Statement are negative. Past Medical History Past Medical History: Asthma, GERD/Reflux, Hyperlipidemia, Musculoskeletal Disorder, Neurologic Disorder, Osteoarthritis (OA), Seizure Disorder Additional Past Medical History / Comment(s): RSD-DERIC FEET, INTERSTITIAL CYSTITIS, BRONCHITIS, HEMORRHOIDS,MIGRAINES, INSOMNIA. VERTIGO, last seizure 4 years ago, complex regional pain syndrome, RLS. History of Any Multi-Drug Resistant Organisms: MRSA Date of last positivie culture/infection: 04/20/15 MDRO Source:: Left Axilla Past Surgical History: Adenoidectomy, Back Surgery, Cholecystectomy, Orthopedic Surgery, Tonsillectomy Additional Past Surgical History / Comment(s): bilateral foot surgery d/t rsd, numerous pain clinic procedures, nerve stimulator in back to tx RSD placed in Nov 11 2015, pain pump placement, Past Anesthesia/Blood Transfusion Reactions: Previous Problems w/ Anesthesia Additional Past Anesthesia/Blood Transfusion Reaction / Comment(s): Pt recieved blood when she was 2 yrs old after tonsillectomy. WHEN BABY HEART STOPPED TWICE- PT STATED SHE WAS ALLERGIC TO ETHER. Past Psychological History: Anxiety, Bipolar, Depression, PTSD Smoking Status: Never smoker Past Alcohol Use History: None Reported Past Drug Use History: Marijuana - Past Family History Father History Unknown: Yes Family Medical History: Diabetes Mellitus Mother Family Medical History: Cancer, CVA/TIA, Diabetes Mellitus, Myocardial Infarction ([place]) Additional Family Medical History / Comment(s): Mother has had 5 CVAs, 3 MIs and UTERINE CANCER General Exam Limitations: no limitations General appearance: alert, in no apparent distress Head exam: Present: atraumatic, normocephalic, normal inspection Eye exam: Present: normal appearance, PERRL, EOMI. Absent: scleral icterus, conjunctival injection, periorbital swelling Neck exam: Present: normal inspection Respiratory exam: Present: normal lung sounds bilaterally. Absent: respiratory distress, wheezes, rales, rhonchi, stridor Cardiovascular Exam: Present: regular rate, normal rhythm, normal heart sounds. Absent: systolic murmur, diastolic murmur, rubs, gallop, clicks GI/Abdominal exam: Present: soft, normal bowel sounds. Absent: distended, tenderness, guarding, rebound, rigid Extremities exam: Present: normal inspection, normal capillary refill. Absent: full ROM (Secondary to pain), tenderness, pedal edema, joint swelling, calf tenderness Neurological exam: Present: alert, oriented X3 Psychiatric exam: Present: normal affect, normal mood Skin exam: Present: warm, dry, intact, normal color. Absent: rash Course Vital Signs 11/14/20 17:27 Temperature 98.1 F Pulse Rate 85 Respiratory 18 Rate Blood Pressure 133/92 O2 Sat by Pulse 98 Oximetry Medical Decision Making - Medical Decision Making 35-year-old female complaining of bilateral extremity pain and a pain pump malfunction. Patient states that Toradol and Benadryl. 15 mg of Toradol, 50 mg of Benadryl ordered. Case discussed with Dr. Castillo, patient can discharge home with follow-up to pain specialist and primary care. Disposition Clinical Impression: Leg pain, Chronic pain syndrome Disposition: HOME SELF-CARE Condition: Stable Instructions (If sedation given, give patient instructions): Chronic Pain (ED) Additional Instructions: Please return to the Emergency Department if symptoms worsen or any other concerns. Follow-up primary care and pain specialist in the next 1-2 days. Try to get scheduled for your scheduled procedure. Continue take at home medications as prescribed. Is patient prescribed a controlled substance at d/c from ED?: No Referrals: China Doyle MD [Primary Care Provider] - 1-2 days Time of Disposition: 18:20
== END 2020-11-14 18:27 | disposition home or self-care (01) ==
LOC: EC 17:25
DX: M79.662 Pain in left lower leg (principal); M79.661 Pain in right lower leg; G89.4 Chronic pain syndrome; J45.909 Unspecified asthma, uncomplicated; K21.9 Gastro-esophageal reflux disease without esophagitis; E78.5 Hyperlipidemia, unspecified; M19.90 Unspecified osteoarthritis, unspecified site; G40.909 Epilepsy, unspecified, not intractable, without status epilepticus; F41.9 Anxiety disorder, unspecified; F31.9 Bipolar disorder, unspecified; F43.12 Post-traumatic stress disorder, chronic; F12.90 Cannabis use, unspecified, uncomplicated; Z88.1 Allergy status to other antibiotic agents; Z88.2 Allergy status to sulfonamides; Z90.89 Acquired absence of other organs; Z90.49 Acquired absence of other specified parts of digestive tract; Z97.8 Presence of other specified devices; Z87.19 Personal history of other diseases of the digestive system
CPT/HCPCS: 99283; 96372 ×2; J1200; J1885

== ENCOUNTER 2020-11-18 21:56 | Emergency (ER) | payer MEDICARE, OTHER ==
[2020-11-18] MEDS ORDERED: KETOROLAC 15 MG/ML 1 ML VIAL IM STA (22:50)
[2020-11-18] MEDS ORDERED: diphenhydrAMINE 50 MG/ML 1 ML VIAL IM STA (22:50)
[2020-11-18] MEDS ORDERED: HYDROmorphone 1 MG/ML 1 ML SYRINGE IM STA (22:50)
--- NOTE | 2020-11-18 22:51 | ED ---
Extremity Problem HPI - General Chief complaint: Extremity Problem,Nontraumatic Stated complaint: leg pain Time Seen by Provider: 11/18/20 22:44 Source: patient Mode of arrival: ambulatory - History of Present Illness Initial comments: 35 year-old female patient presents to the emergency department for evaluation for evaluation of bilateral lower extremity pain. Patient has history of chronic leg pain has an implanted pain pump and spine stimulator which are currently malfunctioning. States she has been working on getting them repaired as an appointment on the of this month. She did take her home pain medications without relief. Denies any new symptoms with this. Denies any redness, swelling, fever, or chills. He is requesting pain medication to get her through until she can see her primary care physician. - Related Data Home Medications Medication Instructions Recorded Confirmed Medroxyprogesterone Acetate 150 mg IM Q84D 11/22/13 10/07/20 [Depo-Provera] rOPINIRole HCL [Requip] 1 mg PO BID@0900,1200 11/22/13 10/07/20 Pentosan Polysulfate Sodium 100 mg PO DAILY 02/10/15 10/07/20 [Elmiron] HYDROcodone/APAP 7.5-325MG [[place] 1 tab PO BID 07/20/16 10/07/20 7.5-325] Paliperidone IM Pt Own [Invega 117 mg IM Q28D 07/20/16 10/07/20 Sustenna] amantadine HCL [Symmetrel] 100 mg PO BID 11/21/16 10/07/20 Albuterol Sulfate [Proair Hfa] 2 puff INHALATION RT-QID PRN 01/13/18 10/07/20 Butalb/Acetaminophen/Caffeine 1 tab PO Q8H PRN 01/13/18 10/07/20 [Fioricet 50-325-40] Fluticasone Propionate [Flovent 1 puff INHALATION RT-BID 01/13/18 10/07/20 Hfa 110 mcg] Gemfibrozil [Lopid] 600 mg PO BID 01/13/18 10/07/20 Gabapentin [Neurontin] 300 mg PO TID 03/11/18 10/07/20 Gabapentin [Neurontin] 600 mg PO TID 09/16/19 10/07/20 Omeprazole [PriLOSEC] 40 mg PO DAILY 09/16/19 10/07/20 rOPINIRole HCL [Requip] 2 mg PO HS 09/16/19 10/07/20 traZODone HCL 300 mg PO HS 09/16/19 10/07/20 hydrOXYzine pamoate [hydrOXYzine 25 mg PO BID 04/13/20 10/07/20 PAMOATE] Cyclobenzaprine [Flexeril] 10 mg PO TID PRN 08/16/20 10/07/20 Fentanyl/Bupivcaine Pain Pump 1 dose INTRATHECA CONTINUOUS 08/16/20 10/07/20 Ibuprofen [Motrin] 600 mg PO TID PRN 10/07/20 10/07/20 diphenhydrAMINE [Benadryl] 50 mg PO DAILY PRN 10/07/20 10/07/20 Previous Rx's Medication Instructions Recorded Erythromycin Ophth Oint [Romycin 1 applic RIGHT EYE QID #1 bottle 10/03/20 Ophth Oint] Ondansetron Odt [Zofran Odt] 4 mg PO Q8HR PRN #14 tab 10/16/20 Allergies Allergy/AdvReac Type Severity Reaction Status Date / Time azithromycin Allergy Rash/Hives Verified 11/18/20 22:12 [From Zithromax Z-Mehrdad] cimetidine [From Tagamet] Allergy Rash/Hives Verified 11/18/20 22:12 ether [Ether] Allergy Anaphylaxis Verified 11/18/20 22:12 Fish Containing Products Allergy Anaphylaxis Verified 11/18/20 22:12 [Fish] ketorolac tromethamine Allergy Rash/Hives Verified 11/18/20 22:12 [From Toradol] morphine Allergy Unknown Verified 11/18/20 22:12 ziprasidone HCl [From Geodon] Allergy Extrapyramidal Verified 11/18/20 22:12 Symptoms fluphenazine HCl AdvReac Extrapyramidal Verified 11/18/20 22:12 [From Prolixin] Symptoms haloperidol [From Haldol] AdvReac Extrapyramidal Verified 11/18/20 22:12 Symptoms Sulfa (Sulfonamide AdvReac Nausea & Verified 11/18/20 22:12 Antibiotics) Vomiting Review of Systems ROS Statement: Those systems with pertinent positive or pertinent negative responses have been documented in the HPI. ROS Other: All systems not noted in ROS Statement are negative. Past Medical History Past Medical History: Asthma, GERD/Reflux, Hyperlipidemia, Musculoskeletal Disorder, Neurologic Disorder, Osteoarthritis (OA), Seizure Disorder Additional Past Medical History / Comment(s): RSD-DERIC FEET, INTERSTITIAL CYSTITIS, BRONCHITIS, HEMORRHOIDS,MIGRAINES, INSOMNIA. VERTIGO, last seizure 4 years ago, complex regional pain syndrome, RLS. History of Any Multi-Drug Resistant Organisms: MRSA Date of last positivie culture/infection: 04/20/15 MDRO Source:: Left Axilla Past Surgical History: Adenoidectomy, Back Surgery, Cholecystectomy, Orthopedic Surgery, Tonsillectomy Additional Past Surgical History / Comment(s): bilateral foot surgery d/t rsd, numerous pain clinic procedures, nerve stimulator in back to tx RSD placed in Nov 11 2015, pain pump placement, Past Anesthesia/Blood Transfusion Reactions: Previous Problems w/ Anesthesia Additional Past Anesthesia/Blood Transfusion Reaction / Comment(s): Pt recieved blood when she was 2 yrs old after tonsillectomy. WHEN BABY HEART STOPPED TWICE- PT STATED SHE WAS ALLERGIC TO ETHER. Past Psychological History: Anxiety, Bipolar, Depression, PTSD Smoking Status: Never smoker Past Alcohol Use History: None Reported Past Drug Use History: Marijuana - Past Family History Father History Unknown: Yes Family Medical History: Diabetes Mellitus Mother Family Medical History: Cancer, CVA/TIA, Diabetes Mellitus, Myocardial Infarction ([place]) Additional Family Medical History / Comment(s): Mother has had 5 CVAs, 3 MIs and UTERINE CANCER General Exam General appearance: alert, in no apparent distress, other (This is a well- developed, well-nourished adult female patient in no acute distress. Vital signs upon presentation are temperature 97.9F, pulse 105, respirations 18, blood pressure 182/99, pulse ox 96% on room air.) Respiratory exam: Present: normal lung sounds bilaterally. Absent: respiratory distress, wheezes, rales, rhonchi, stridor Cardiovascular Exam: Present: regular rate, normal rhythm, normal heart sounds. Absent: systolic murmur, diastolic murmur, rubs, gallop, clicks Extremities exam: Present: normal inspection, full ROM, normal capillary refill, other (Skin to the lower extremities is pink, warm, dry. Cap refill less than 3 seconds. Pedal and posttibial pulses are 2+.). Absent: tenderness, pedal edema, joint swelling, calf tenderness Neurological exam: Present: alert, oriented X3, CN II-XII intact Psychiatric exam: Present: normal affect, normal mood Skin exam: Present: warm, dry, intact, normal color. Absent: rash Course Vital Signs 11/18/20 11/18/20 22:09 23:14 Temperature 97.9 F 98.0 F Pulse Rate 105 H 81 Respiratory 18 16 Rate Blood Pressure 182/99 178/90 O2 Sat by Pulse 96 98 Oximetry Medical Decision Making - Medical Decision Making 35-year-old female patient presented to the emergency department for evaluation of chronic painful lower legs. Requesting pain medication. No new symptoms. Neurovascular status is intact. She is given IM injections for pain. Should be discharged follow up with her primary care physician and neurologist for further evaluation as soon as possible. Return parameters were discussed in detail. She verbalizes understanding and agrees with this plan. My attending is Dr. Stubbs. Disposition Clinical Impression: Chronic leg pain Disposition: HOME SELF-CARE Condition: Good Instructions (If sedation given, give patient instructions): Chronic Pain (ED) Additional Instructions: Follow-up with your primary care physician and neurologist for further evaluation as soon as possible. Return for any new, worsening, or concerning symptoms. Is patient prescribed a controlled substance at d/c from ED?: No Referrals: China Doyle MD [Primary Care Provider] - 1-2 days Time of Disposition: 22:51
[2020-11-18 23:14] VITALS: BP 178/90; PULSE 81; RESP 16; TEMP 98
== END 2020-11-18 23:13 | disposition home or self-care (01) ==
LOC: EC 21:56
DX: G89.29 Other chronic pain (principal); M79.605 Pain in left leg; M79.604 Pain in right leg; E78.5 Hyperlipidemia, unspecified; F31.9 Bipolar disorder, unspecified; F41.9 Anxiety disorder, unspecified; G40.909 Epilepsy, unspecified, not intractable, without status epilepticus; J45.909 Unspecified asthma, uncomplicated; K21.9 Gastro-esophageal reflux disease without esophagitis; Z79.1 Long term (current) use of non-steroidal anti-inflammatories (NSAID); Z79.3 Long term (current) use of hormonal contraceptives; Z79.51 Long term (current) use of inhaled steroids; Z79.899 Other long term (current) drug therapy; Z82.49 Family history of ischemic heart disease and other diseases of the circulatory system; Z83.3 Family history of diabetes mellitus; Z87.19 Personal history of other diseases of the digestive system; Z90.49 Acquired absence of other specified parts of digestive tract
CPT/HCPCS: 96372 ×3; 99283; J1200; J1170; J1885

== ENCOUNTER 2020-11-24 17:19 | Emergency (ER) | payer MEDICARE, OTHER ==
[2020-11-24 17:59] VITALS: RESP 18; TEMP 98.2
[2020-11-24] MEDS ORDERED: KETOROLAC 15 MG/ML 1 ML VIAL IM STA (19:15)
[2020-11-24] MEDS ORDERED: diphenhydrAMINE 50 MG/ML 1 ML VIAL IM STA (19:15)
[2020-11-24] MEDS ORDERED: METOCLOPRAMIDE 10 MG TAB PO STA (19:15)
--- NOTE | 2020-11-24 19:16 | ED ---
Headache HPI - General Chief Complaint: Headache Stated Complaint: Migraine Time Seen by Provider: 11/24/20 19:02 Mode of arrival: ambulatory - History of Present Illness Initial Comments: 35 year-old female patient presents to the emergency department today for migraine headache. States she has history of migraines. This headache started yesterday morning. She has been taking ibuprofen, tylenol, and fioricet at home without relief. Did take zofran ODT twice today. Symptoms associated with this headache include photosensitivity, sound sensitivity, nausea, and dizziness. States these symptoms are typical of her usual migraine pattern. Denies any new symptoms. Denies fever or neck stiffness. Denies this being the worst headache of her life. Denies any recent head injury. - Related Data Home Medications Medication Instructions Recorded Confirmed Medroxyprogesterone Acetate 150 mg IM Q84D 11/22/13 10/07/20 [Depo-Provera] rOPINIRole HCL [Requip] 1 mg PO BID@0900,1200 11/22/13 10/07/20 Pentosan Polysulfate Sodium 100 mg PO DAILY 02/10/15 10/07/20 [Elmiron] HYDROcodone/APAP 7.5-325MG [[place] 1 tab PO BID 07/20/16 10/07/20 7.5-325] Paliperidone IM Pt Own [Invega 117 mg IM Q28D 07/20/16 10/07/20 Sustenna] amantadine HCL [Symmetrel] 100 mg PO BID 11/21/16 10/07/20 Albuterol Sulfate [Proair Hfa] 2 puff INHALATION RT-QID PRN 01/13/18 10/07/20 Butalb/Acetaminophen/Caffeine 1 tab PO Q8H PRN 01/13/18 10/07/20 [Fioricet 50-325-40] Fluticasone Propionate [Flovent 1 puff INHALATION RT-BID 01/13/18 10/07/20 Hfa 110 mcg] Gemfibrozil [Lopid] 600 mg PO BID 01/13/18 10/07/20 Gabapentin [Neurontin] 300 mg PO TID 03/11/18 10/07/20 Gabapentin [Neurontin] 600 mg PO TID 09/16/19 10/07/20 Omeprazole [PriLOSEC] 40 mg PO DAILY 09/16/19 10/07/20 rOPINIRole HCL [Requip] 2 mg PO HS 09/16/19 10/07/20 traZODone HCL 300 mg PO HS 09/16/19 10/07/20 hydrOXYzine pamoate [hydrOXYzine 25 mg PO BID 04/13/20 10/07/20 PAMOATE] Cyclobenzaprine [Flexeril] 10 mg PO TID PRN 08/16/20 10/07/20 Fentanyl/Bupivcaine Pain Pump 1 dose INTRATHECA CONTINUOUS 08/16/20 10/07/20 Ibuprofen [Motrin] 600 mg PO TID PRN 10/07/20 10/07/20 diphenhydrAMINE [Benadryl] 50 mg PO DAILY PRN 10/07/20 10/07/20 Previous Rx's Medication Instructions Recorded Erythromycin Ophth Oint [Romycin 1 applic RIGHT EYE QID #1 bottle 10/03/20 Ophth Oint] Ondansetron Odt [Zofran Odt] 4 mg PO Q8HR PRN #14 tab 10/16/20 Allergies Allergy/AdvReac Type Severity Reaction Status Date / Time azithromycin Allergy Rash/Hives Verified 11/18/20 22:12 [From Zithromax Z-Mehrdad] cimetidine [From Tagamet] Allergy Rash/Hives Verified 11/18/20 22:12 ether [Ether] Allergy Anaphylaxis Verified 11/18/20 22:12 Fish Containing Products Allergy Anaphylaxis Verified 11/18/20 22:12 [Fish] ketorolac tromethamine Allergy Rash/Hives Verified 11/18/20 22:12 [From Toradol] morphine Allergy Unknown Verified 11/18/20 22:12 ziprasidone HCl [From Geodon] Allergy Extrapyramidal Verified 11/18/20 22:12 Symptoms fluphenazine HCl AdvReac Extrapyramidal Verified 11/18/20 22:12 [From Prolixin] Symptoms haloperidol [From Haldol] AdvReac Extrapyramidal Verified 11/18/20 22:12 Symptoms Sulfa (Sulfonamide AdvReac Nausea & Verified 11/18/20 22:12 Antibiotics) Vomiting Review of Systems ROS Statement: Those systems with pertinent positive or pertinent negative responses have been documented in the HPI. ROS Other: All systems not noted in ROS Statement are negative. Past Medical History Past Medical History: Asthma, GERD/Reflux, Hyperlipidemia, Musculoskeletal Disorder, Neurologic Disorder, Osteoarthritis (OA), Seizure Disorder Additional Past Medical History / Comment(s): RSD-DERIC FEET, INTERSTITIAL CYSTITIS, BRONCHITIS, HEMORRHOIDS,MIGRAINES, INSOMNIA. VERTIGO, last seizure 4 years ago, complex regional pain syndrome, RLS. History of Any Multi-Drug Resistant Organisms: MRSA Date of last positivie culture/infection: 04/20/15 MDRO Source:: Left Axilla Past Surgical History: Adenoidectomy, Back Surgery, Cholecystectomy, Orthopedic Surgery, Tonsillectomy Additional Past Surgical History / Comment(s): bilateral foot surgery d/t rsd, numerous pain clinic procedures, nerve stimulator in back to tx RSD placed in Nov 11 2015, pain pump placement, Past Anesthesia/Blood Transfusion Reactions: Previous Problems w/ Anesthesia Additional Past Anesthesia/Blood Transfusion Reaction / Comment(s): Pt recieved blood when she was 2 yrs old after tonsillectomy. WHEN BABY HEART STOPPED TWICE- PT STATED SHE WAS ALLERGIC TO ETHER. Past Psychological History: Anxiety, Bipolar, Depression, PTSD Smoking Status: Never smoker Past Alcohol Use History: None Reported Past Drug Use History: Marijuana - Past Family History Father History Unknown: Yes Family Medical History: Diabetes Mellitus Mother Family Medical History: Cancer, CVA/TIA, Diabetes Mellitus, Myocardial Infarction ([place]) Additional Family Medical History / Comment(s): Mother has had 5 CVAs, 3 MIs and UTERINE CANCER General Exam General appearance: alert, in no apparent distress, other (This is a well- developed, well-nourished adult female patient in no acute distress. Vital signs upon presentation are temperature 98.2F, pulse 96, respirations 18, blood pressure 141/90, pulse ox 98% on room air.) Eye exam: Present: normal appearance, PERRL, EOMI. Absent: scleral icterus, conjunctival injection, nystagmus, periorbital swelling ENT exam: Present: normal exam, normal oropharynx, mucous membranes moist Respiratory exam: Present: normal lung sounds bilaterally. Absent: respiratory distress, wheezes, rales, rhonchi, stridor Cardiovascular Exam: Present: regular rate, normal rhythm, normal heart sounds. Absent: systolic murmur, diastolic murmur, rubs, gallop, clicks GI/Abdominal exam: Present: soft, normal bowel sounds. Absent: distended, tenderness, guarding, rebound, rigid Neurological exam: Present: alert, oriented X3, CN II-XII intact Expanded Speech: Present: fluid speech Cranial nerves: EOM's Intact: Normal, Tongue Deviation: Normal Motor strength exam: RUE: 5, LUE: 5, RLE: 5, LLE: 5 Psychiatric exam: Present: normal affect, normal mood Skin exam: Present: warm, dry, intact, normal color. Absent: rash Course Vital Signs 11/24/20 17:56 Temperature 98.2 F Pulse Rate 96 Respiratory 18 Rate Blood Pressure 141/90 O2 Sat by Pulse 98 Oximetry Medical Decision Making - Medical Decision Making 35-year-old female patient with past medical history significant for migraine headache presents today for evaluation of headache 2 days. Physical examination is unremarkable. She is neurologically intact no deficits. No new symptoms with this headache. He was given a option of IV inserted with IV medications or have IM medications. She decided to have the injections and be discharged. He is instructed to follow-up with her primary care physician for recheck in 1-2 days. Return parameters discussed in detail. She verbalizes understanding and agrees with this plan. My attending is Dr. Maddox. Disposition Clinical Impression: Migraine headache Disposition: HOME SELF-CARE Condition: Good Instructions (If sedation given, give patient instructions): Migraine Headache (ED) Additional Instructions: Follow up with your primary care physician and neurologist for further evaluation as soon as possible. Return to the emergency department for any new, worsening, or concerning symptoms. Is patient prescribed a controlled substance at d/c from ED?: No Referrals: China Doyle MD [Primary Care Provider] - 1-2 days Time of Disposition: 19:16
[2020-11-24 20:16] VITALS: BP 122/80; PULSE 94
== END 2020-11-24 20:00 | disposition home or self-care (01) ==
LOC: EC 17:19
DX: G43.909 Migraine, unspecified, not intractable, without status migrainosus (principal); J45.909 Unspecified asthma, uncomplicated; K21.9 Gastro-esophageal reflux disease without esophagitis; E78.5 Hyperlipidemia, unspecified; M19.90 Unspecified osteoarthritis, unspecified site; F41.9 Anxiety disorder, unspecified; F31.9 Bipolar disorder, unspecified; F43.12 Post-traumatic stress disorder, chronic; F12.90 Cannabis use, unspecified, uncomplicated; Z90.89 Acquired absence of other organs; Z88.1 Allergy status to other antibiotic agents; Z91.013 Allergy to seafood; Z88.5 Allergy status to narcotic agent; Z88.2 Allergy status to sulfonamides
CPT/HCPCS: 99283; 96372 ×2; J1200; J1885

== ENCOUNTER 2020-11-28 19:15 | Emergency (ER) | payer MEDICARE, OTHER ==
[2020-11-28] MEDS ORDERED: diphenhydrAMINE 50 MG/ML 1 ML VIAL IM STA (21:14)
[2020-11-28] MEDS ORDERED: KETOROLAC 15 MG/ML 1 ML VIAL IM STA (21:14)
[2020-11-28] MEDS ORDERED: METOCLOPRAMIDE 5 MG/ML 2 ML VIAL IM STA (21:14)
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
[2020-11-28 22:18] VITALS: BP 134/84; PULSE 80; RESP 22; TEMP 97.7
== END 2020-11-28 22:18 | disposition home or self-care (01) ==
LOC: EC 19:15
DX: R51.9 Headache, unspecified (principal); E78.5 Hyperlipidemia, unspecified; F31.9 Bipolar disorder, unspecified; F41.9 Anxiety disorder, unspecified; G40.909 Epilepsy, unspecified, not intractable, without status epilepticus; J45.909 Unspecified asthma, uncomplicated; F12.90 Cannabis use, unspecified, uncomplicated; K21.9 Gastro-esophageal reflux disease without esophagitis; Z79.1 Long term (current) use of non-steroidal anti-inflammatories (NSAID); Z79.3 Long term (current) use of hormonal contraceptives; Z79.51 Long term (current) use of inhaled steroids; Z79.899 Other long term (current) drug therapy; Z82.3 Family history of stroke; Z82.49 Family history of ischemic heart disease and other diseases of the circulatory system; Z83.3 Family history of diabetes mellitus; Z87.19 Personal history of other diseases of the digestive system; Z90.49 Acquired absence of other specified parts of digestive tract
CPT/HCPCS: 96372 ×3; 99283; J1200; J2765; J1885

== ENCOUNTER 2020-12-12 19:38 | Emergency (ER) | payer MEDICARE, OTHER ==
[2020-12-12 19:50] VITALS: TEMP 98.3
[2020-12-12] MEDS ORDERED: METOCLOPRAMIDE 5 MG/ML 2 ML VIAL IVP STA (20:04)
[2020-12-12] MEDS ORDERED: KETOROLAC 15 MG/ML 1 ML VIAL IVP STA (20:04)
[2020-12-12] MEDS ORDERED: diphenhydrAMINE 50 MG/ML 1 ML VIAL IVP STA (20:04)
[2020-12-12] MEDS ORDERED: SODIUM CHLORIDE 0.9% 1,000 ML IV ONE (20:05)
--- NOTE | 2020-12-12 20:25 | ED ---
Headache HPI - General Chief Complaint: Headache Stated Complaint: Mirgaine Time Seen by Provider: 12/12/20 19:52 Mode of arrival: ambulatory Limitations: no limitations - History of Present Illness Initial Comments: 35 year-old female patient with past history significant for migraine headaches and chronic pain syndromes present to the emergency department for evaluation of migraine headache. States this headache started on Saturday. States she has been vomiting and unable to keep down any food or fluids. States her headache is generalized. States she has blurred vision, light sensitivity, and dizziness. She denies any fever or chills. Denies any recent head injury. Did take ibuprofen, zofran, and fioricet at home without relief. Denies any new symptoms with this headache. States symptoms are consistent with her usual migraine pattern. - Related Data Home Medications Medication Instructions Recorded Confirmed Medroxyprogesterone Acetate 150 mg IM Q84D 11/22/13 10/07/20 [Depo-Provera] rOPINIRole HCL [Requip] 1 mg PO BID@0900,1200 11/22/13 10/07/20 Pentosan Polysulfate Sodium 100 mg PO DAILY 02/10/15 10/07/20 [Elmiron] HYDROcodone/APAP 7.5-325MG [[place] 1 tab PO BID 07/20/16 10/07/20 7.5-325] Paliperidone IM Pt Own [[place] 117 mg IM Q28D 07/20/16 10/07/20 Sustenna] amantadine HCL [Symmetrel] 100 mg PO BID 11/21/16 10/07/20 Albuterol Sulfate [Proair Hfa] 2 puff INHALATION RT-QID PRN 01/13/18 10/07/20 Butalb/Acetaminophen/Caffeine 1 tab PO Q8H PRN 01/13/18 10/07/20 [Fioricet 50-325-40] Fluticasone Propionate [Flovent 1 puff INHALATION RT-BID 01/13/18 10/07/20 Hfa 110 mcg] Gemfibrozil [Lopid] 600 mg PO BID 01/13/18 10/07/20 Gabapentin [Neurontin] 300 mg PO TID 03/11/18 10/07/20 Gabapentin [Neurontin] 600 mg PO TID 09/16/19 10/07/20 Omeprazole [PriLOSEC] 40 mg PO DAILY 09/16/19 10/07/20 rOPINIRole HCL [Requip] 2 mg PO HS 09/16/19 10/07/20 traZODone HCL 300 mg PO HS 09/16/19 10/07/20 hydrOXYzine pamoate [hydrOXYzine 25 mg PO BID 04/13/20 10/07/20 PAMOATE] Cyclobenzaprine [Flexeril] 10 mg PO TID PRN 08/16/20 10/07/20 Fentanyl/Bupivcaine Pain Pump 1 dose INTRATHECA CONTINUOUS 08/16/20 10/07/20 Ibuprofen [Motrin] 600 mg PO TID PRN 10/07/20 10/07/20 diphenhydrAMINE [Benadryl] 50 mg PO DAILY PRN 10/07/20 10/07/20 Previous Rx's Medication Instructions Recorded Erythromycin Ophth Oint [Romycin 1 applic RIGHT EYE QID #1 bottle 10/03/20 Ophth Oint] Ondansetron Odt [Zofran Odt] 4 mg PO Q8HR PRN #14 tab 10/16/20 Allergies Allergy/AdvReac Type Severity Reaction Status Date / Time azithromycin Allergy Rash/Hives Verified 12/12/20 19:47 [From Zithromax Z-Mehrdad] cimetidine [From Tagamet] Allergy Rash/Hives Verified 12/12/20 19:47 ether [Ether] Allergy Anaphylaxis Verified 12/12/20 19:47 Fish Containing Products Allergy Anaphylaxis Verified 12/12/20 19:47 [Fish] ketorolac tromethamine Allergy Rash/Hives Verified 12/12/20 19:47 [From Toradol] morphine Allergy Unknown Verified 12/12/20 19:47 ziprasidone HCl [From Geodon] Allergy Extrapyramidal Verified 12/12/20 19:47 Symptoms fluphenazine HCl AdvReac Extrapyramidal Verified 12/12/20 19:47 [From Prolixin] Symptoms haloperidol [From Haldol] AdvReac Extrapyramidal Verified 12/12/20 19:47 Symptoms Sulfa (Sulfonamide AdvReac Nausea & Verified 12/12/20 19:47 Antibiotics) Vomiting Review of Systems ROS Statement: Those systems with pertinent positive or pertinent negative responses have been documented in the HPI. ROS Other: All systems not noted in ROS Statement are negative. Past Medical History Past Medical History: Asthma, GERD/Reflux, Hyperlipidemia, Musculoskeletal Disorder, Neurologic Disorder, Osteoarthritis (OA), Seizure Disorder Additional Past Medical History / Comment(s): RSD-DERIC FEET, INTERSTITIAL CYSTITIS, BRONCHITIS, HEMORRHOIDS,MIGRAINES, INSOMNIA. VERTIGO, last seizure 4 years ago, complex regional pain syndrome, RLS. History of Any Multi-Drug Resistant Organisms: MRSA Date of last positivie culture/infection: 04/20/15 MDRO Source:: Left Axilla Past Surgical History: Adenoidectomy, Back Surgery, Cholecystectomy, Orthopedic Surgery, Tonsillectomy Additional Past Surgical History / Comment(s): bilateral foot surgery d/t rsd, numerous pain clinic procedures, nerve stimulator in back to tx RSD placed in Nov 11 2015, pain pump placement, Past Anesthesia/Blood Transfusion Reactions: Previous Problems w/ Anesthesia Additional Past Anesthesia/Blood Transfusion Reaction / Comment(s): Pt recieved blood when she was 2 yrs old after tonsillectomy. WHEN BABY HEART STOPPED TWICE- PT STATED SHE WAS ALLERGIC TO ETHER. Past Psychological History: Anxiety, Bipolar, Depression, PTSD Smoking Status: Never smoker Past Alcohol Use History: None Reported Past Drug Use History: Marijuana - Past Family History Father History Unknown: Yes Family Medical History: Diabetes Mellitus Mother Family Medical History: Cancer, CVA/TIA, Diabetes Mellitus, Myocardial Infarction ([place]) Additional Family Medical History / Comment(s): Mother has had 5 CVAs, 3 MIs and UTERINE CANCER General Exam Limitations: no limitations General appearance: alert, in no apparent distress, other (This is a well- developed, well-nourished adult female patient in mild distress related to pain. Vital signs upon presentation are temperature 98.3F, pulse 106, respirations 16, blood pressure 155/111, pulse ox 90% on room air.) Eye exam: Present: normal appearance, PERRL, EOMI. Absent: scleral icterus, conjunctival injection, nystagmus, periorbital swelling ENT exam: Present: normal exam, normal oropharynx, mucous membranes moist Respiratory exam: Present: normal lung sounds bilaterally. Absent: respiratory distress, wheezes, rales, rhonchi, stridor Cardiovascular Exam: Present: normal rhythm, tachycardia, normal heart sounds. Absent: systolic murmur, diastolic murmur, rubs, gallop, clicks GI/Abdominal exam: Present: soft, normal bowel sounds. Absent: distended, tenderness, guarding, rebound, rigid Neurological exam: Present: alert, oriented X3, CN II-XII intact Expanded Speech: Present: fluid speech Motor strength exam: RUE: 5, LUE: 5, RLE: 5, LLE: 5 Psychiatric exam: Present: normal affect, normal mood Skin exam: Present: warm, dry, intact, normal color. Absent: rash Course Vital Signs 12/12/20 12/12/20 19:47 21:38 Temperature 98.3 F Pulse Rate 106 H 85 Respiratory 16 18 Rate Blood Pressure 155/111 135/84 O2 Sat by Pulse 90 L 99 Oximetry Medical Decision Making - Medical Decision Making 35-year-old female patient presents to the emergency department today for evaluation of migraine headache since Saturday. Reports photophobia, dizziness, and vomiting. Physical examination is unremarkable. She is neurologically intact no focal deficits. Vital signs unremarkable. Symptoms are consistent with her usual migraine pattern. She was given IV fluids, IV medication. Upon reevaluation she is resting comfortably in bed states she is feeling much better. She'll be discharged follow up with the primary care physician for recheck in 1-2 days. Return parameters were discussed in detail. She verbalizes understanding and agrees with this plan. My attending is Dr. Hoang. Disposition Clinical Impression: Migraine headache Disposition: HOME SELF-CARE Condition: Good Instructions (If sedation given, give patient instructions): Migraine Headache (ED) Is patient prescribed a controlled substance at d/c from ED?: No Referrals: China Doyle MD [Primary Care Provider] - 1-2 days Time of Disposition: 21:30
[2020-12-12 21:46] VITALS: BP 135/84; PULSE 85; RESP 18
== END 2020-12-12 21:39 | disposition home or self-care (01) ==
LOC: EC 19:38
DX: G43.909 Migraine, unspecified, not intractable, without status migrainosus (principal); J45.909 Unspecified asthma, uncomplicated; K21.9 Gastro-esophageal reflux disease without esophagitis; E78.5 Hyperlipidemia, unspecified; M19.90 Unspecified osteoarthritis, unspecified site; F41.9 Anxiety disorder, unspecified; F31.9 Bipolar disorder, unspecified; F43.12 Post-traumatic stress disorder, chronic; F12.90 Cannabis use, unspecified, uncomplicated; Z90.49 Acquired absence of other specified parts of digestive tract; Z88.1 Allergy status to other antibiotic agents; Z88.5 Allergy status to narcotic agent; Z88.2 Allergy status to sulfonamides; Z90.89 Acquired absence of other organs; Z87.19 Personal history of other diseases of the digestive system
CPT/HCPCS: 99283; 96374; 96375 ×2; 96361; J1200; J2765; J1885

== ENCOUNTER 2020-12-31 20:38 | Emergency (ER) | payer MEDICARE, OTHER ==
[2020-12-31 21:21] VITALS: BP 152/106; PULSE 96; RESP 18; TEMP 98.7
[2020-12-31] MEDS ORDERED: ONDANSETRON ODT 4 MG TAB PO STA (21:53)
[2020-12-31] MEDS ORDERED: HYDROmorphone 1 MG/ML 1 ML SYRINGE IM STA (21:53)
--- NOTE | 2020-12-31 22:58 | CT ---
EXAMINATION TYPE: CT brain wo con DATE OF EXAM: 12/31/2020 COMPARISON: HISTORY: Fall, LOC, LANTIG[place] CT DLP: 1158.4 mGycm Automated exposure control for dose reduction was used. Ventricles have normal size. There is no mass effect nor midline shift. There is no sign of intracran ial hemorrhage. Calvarium is intact. There is normal aeration of the mastoid sinuses. IMPRESSION: Negative CT scan of the brain.
--- NOTE | 2020-12-31 22:59 | XR ---
EXAMINATION TYPE: XR ankle complete LT DATE OF EXAM: 12/31/2020 COMPARISON: NONE HISTORY: Pain TECHNIQUE: 3 views FINDINGS: Ankle mortise is anatomic. I see no fracture nor dislocation. Joint spaces are normal. IMPRESSION: Negative left ankle exam.
--- NOTE | 2020-12-31 22:59 | XR ---
EXAMINATION TYPE: XR knee complete LT DATE OF EXAM: 12/31/2020 COMPARISON: NONE HISTORY: Pain TECHNIQUE: 3 views FINDINGS: I see no fracture nor dislocation. Joint spaces are normal. There is no sign of joint effus ion. IMPRESSION: Negative left knee exam.
[2020-12-31] MEDS ORDERED: KETOROLAC 15 MG/ML 1 ML VIAL IM STA (23:11)
[2020-12-31] MEDS ORDERED: diphenhydrAMINE 50 MG/ML 1 ML VIAL IM STA (23:12)
--- NOTE | 2020-12-31 23:13 | ED ---
Headache HPI - General Chief Complaint: Headache Stated Complaint: head and throat pain Time Seen by Provider: 12/31/20 21:37 Mode of arrival: wheelchair - History of Present Illness Initial Comments: 35-year-old female patient presented to the emergency department today for evaluation of headache, left knee pain, left ankle pain. Patient states she had a fall 2 days ago struck her head, passed out for about 2 minutes. States that she's been having severe headaches since. Reports light sensitivity, nausea, and vomiting. States that she is able to walk on the left leg though it causes her severe pain in the knee and ankle. States she did take her home [place] and Fioricet without relief of symptoms. She denies any neck or back pain. Denies any other injuries. Denies numbness tingling or weakness to her extremities. Patient denies any chest pain, shortness of breath, dizziness, weakness, abdominal pain, or difficulties with bowel movements or urination. - Related Data Home Medications Medication Instructions Recorded Confirmed Medroxyprogesterone Acetate 150 mg IM Q84D 11/22/13 10/07/20 [Depo-Provera] rOPINIRole HCL [Requip] 1 mg PO BID@0900,1200 11/22/13 10/07/20 Pentosan Polysulfate Sodium 100 mg PO DAILY 02/10/15 10/07/20 [Elmiron] HYDROcodone/APAP 7.5-325MG [[place] 1 tab PO BID 07/20/16 10/07/20 7.5-325] Paliperidone IM Pt Own [[place] 117 mg IM Q28D 07/20/16 10/07/20 Sustenna] amantadine HCL [Symmetrel] 100 mg PO BID 11/21/16 10/07/20 Albuterol Sulfate [Proair Hfa] 2 puff INHALATION RT-QID PRN 01/13/18 10/07/20 Butalb/Acetaminophen/Caffeine 1 tab PO Q8H PRN 01/13/18 10/07/20 [Fioricet 50-325-40] Fluticasone Propionate [Flovent 1 puff INHALATION RT-BID 01/13/18 10/07/20 Hfa 110 mcg] Gemfibrozil [Lopid] 600 mg PO BID 01/13/18 10/07/20 Gabapentin [Neurontin] 300 mg PO TID 12/11/18 07/09/21 Gabapentin [Neurontin] 600 mg PO TID 09/16/19 10/07/20 Omeprazole [PriLOSEC] 40 mg PO DAILY 09/16/19 10/07/20 rOPINIRole HCL [Requip] 2 mg PO HS 09/16/19 10/07/20 traZODone HCL 300 mg PO HS 09/16/19 10/07/20 hydrOXYzine pamoate [hydrOXYzine 25 mg PO BID 04/13/20 10/07/20 PAMOATE] Cyclobenzaprine [Flexeril] 10 mg PO TID PRN 08/16/20 10/07/20 Fentanyl/Bupivcaine Pain Pump 1 dose INTRATHECA CONTINUOUS 08/16/20 10/07/20 Ibuprofen [Motrin] 600 mg PO TID PRN 10/07/20 10/07/20 diphenhydrAMINE [Benadryl] 50 mg PO DAILY PRN 10/07/20 10/07/20 Previous Rx's Medication Instructions Recorded Erythromycin Ophth Oint [Romycin 1 applic RIGHT EYE QID #1 bottle 10/03/20 Ophth Oint] Ondansetron Odt [Zofran Odt] 4 mg PO Q8HR PRN #14 tab 10/16/20 Allergies Allergy/AdvReac Type Severity Reaction Status Date / Time azithromycin Allergy Rash/Hives Verified 12/31/20 21:21 [From Zithromax Z-Mehrdad] cimetidine [From Tagamet] Allergy Rash/Hives Verified 12/31/20 21:21 ether [Ether] Allergy Anaphylaxis Verified 12/31/20 21:21 Fish Containing Products Allergy Anaphylaxis Verified 12/31/20 21:21 [Fish] ketorolac tromethamine Allergy Rash/Hives Verified 12/31/20 21:21 [From Toradol] morphine Allergy Unknown Verified 12/31/20 21:21 ziprasidone HCl [From Geodon] Allergy Extrapyramidal Verified 12/31/20 21:21 Symptoms fluphenazine HCl AdvReac Extrapyramidal Verified 12/31/20 21:21 [From Prolixin] Symptoms haloperidol [From Haldol] AdvReac Extrapyramidal Verified 12/31/20 21:21 Symptoms Sulfa (Sulfonamide AdvReac Nausea & Verified 12/31/20 21:21 Antibiotics) Vomiting Review of Systems ROS Statement: Those systems with pertinent positive or pertinent negative responses have been documented in the HPI. ROS Other: All systems not noted in ROS Statement are negative. Past Medical History Past Medical History: Asthma, GERD/Reflux, Hyperlipidemia, Musculoskeletal Disorder, Neurologic Disorder, Osteoarthritis (OA), Seizure Disorder Additional Past Medical History / Comment(s): RSD-DERIC FEET, INTERSTITIAL CYSTIT IS, BRONCHITIS, HEMORRHOIDS,MIGRAINES, INSOMNIA. VERTIGO, last seizure 4 years ago, complex regional pain syndrome, RLS. History of Any Multi-Drug Resistant Organisms: MRSA Date of last positivie culture/infection: 04/20/15 MDRO Source:: Left Axilla Past Surgical History: Adenoidectomy, Back Surgery, Cholecystectomy, Orthopedic Surgery, Tonsillectomy Additional Past Surgical History / Comment(s): bilateral foot surgery d/t rsd, numerous pain clinic procedures, nerve stimulator in back to tx RSD placed in Nov 11 2015, pain pump placement, Past Anesthesia/Blood Transfusion Reactions: Previous Problems w/ Anesthesia Additional Past Anesthesia/Blood Transfusion Reaction / Comment(s): Pt recieved blood when she was 2 yrs old after tonsillectomy. WHEN BABY HEART STOPPED TWICE- PT STATED SHE WAS ALLERGIC TO ETHER. Past Psychological History: Anxiety, Bipolar, Depression, PTSD Smoking Status: Never smoker Past Alcohol Use History: None Reported Past Drug Use History: Marijuana - Past Family History Father History Unknown: Yes Family Medical History: Diabetes Mellitus Mother Family Medical History: Cancer, CVA/TIA, Diabetes Mellitus, Myocardial Infarction ([place]) Additional Family Medical History / Comment(s): Mother has had 5 CVAs, 3 MIs and UTERINE CANCER General Exam General appearance: alert, in no apparent distress, other (This is a well- developed, well-nourished adult female patient in no acute distress. Vital signs upon presentation temperature 98.7F, pulse 96, respirations 18, blood pressure 152/106, pulse ox 97% on room air.) Head exam: Present: atraumatic, normocephalic, normal inspection Eye exam: Present: normal appearance, PERRL, EOMI. Absent: scleral icterus, conjunctival injection, nystagmus, periorbital swelling ENT exam: Present: normal exam, normal oropharynx, mucous membranes moist Neck exam: Present: normal inspection, full ROM, other (Nontender, no step-off, no deformity to firm midline palpation of the posterior cervical spine. Full range of motion without pain or limitation.). Absent: tenderness, meningismus, lymphadenopathy Respiratory exam: Present: normal lung sounds bilaterally. Absent: respiratory distress, wheezes, rales, rhonchi, stridor Cardiovascular Exam: Present: regular rate, normal rhythm, normal heart sounds. Absent: systolic murmur, diastolic murmur, rubs, gallop, clicks GI/Abdominal exam: Present: soft, normal bowel sounds. Absent: distended, tenderness, guarding, rebound, rigid Extremities exam: Present: normal inspection, full ROM, normal capillary refill, other (Skin the left leg is pink, warm, dry. Cap refill less than 3 seconds. Pedal and posttibial pulses 2+. Full range of motion of all joints is intact. There is tenderness over the lateral malleolus of left ankle and over the anterior aspect of the knee.). Absent: tenderness, pedal edema, joint swelling, calf tenderness Back exam: Present: normal inspection, other (Nontender, no step-off, no deformity to firm midline palpation of the thoracic and lumbar vertebrae. Full range of motion without pain or limitation.). Absent: vertebral tenderness Neurological exam: Present: alert, oriented X3, CN II-XII intact Psychiatric exam: Present: normal affect, normal mood Skin exam: Present: warm, dry, intact, normal color. Absent: rash Course Vital Signs 12/31/20 21:13 Temperature 98.7 F Pulse Rate 96 Respiratory 18 Rate Blood Pressure 152/106 O2 Sat by Pulse 97 Oximetry Medical Decision Making - Medical Decision Making 35 year-old female patient presents to the emergency department for evaluation of headache, knee pain, ankle pain after fall a couple of days ago. CT brain, xray knee, and ankle are negative. Is given pain medication here. She'll be discharged follow up with her primary care physician for recheck in 1-2 days. Return parameters were discussed in detail. They verbalize understanding and agree with this plan. Case discussed with my attending Dr. Hernandez. - Radiology Data Radiology results: report reviewed, image reviewed Reviews of the left ankle are obtained. Report is reviewed in its entirety. Impression by Dr. Vernon shows negative left ankle exam. 3 views of left knee are obtained. Report was reviewed in its entirety. Impression by Dr. Vernon shows negative left knee exam. CT brain without contrast was obtained. Report is reviewed in its entirety. Impression by Dr. Vernon shows negative computed tomography scan of the brain. Disposition Clinical Impression: Headache, Contusion of left knee, Left ankle sprain Disposition: HOME SELF-CARE Condition: Good Instructions (If sedation given, give patient instructions): Ankle Sprain (ED), Head Injury (ED), Acute Headache (ED), Knee Pain (ED) Additional Instructions: Apply ice to the painful areas. Continue home medications. Follow-up with her primary care physician for recheck in 1-2 days. Return for any new, worsening, or concerning symptoms. Is patient prescribed a controlled substance at d/c from ED?: No Referrals: China Doyle MD [Primary Care Provider] - 1-2 days Time of Disposition: 23:13
== END 2020-12-31 23:42 | disposition home or self-care (01) ==
LOC: EC 20:38
DX: S93.402A Sprain of unspecified ligament of left ankle, initial encounter (principal); S80.02XA Contusion of left knee, initial encounter; R51.9 Headache, unspecified; J45.909 Unspecified asthma, uncomplicated; E78.5 Hyperlipidemia, unspecified; K21.9 Gastro-esophageal reflux disease without esophagitis; M19.90 Unspecified osteoarthritis, unspecified site; G40.909 Epilepsy, unspecified, not intractable, without status epilepticus; F31.9 Bipolar disorder, unspecified; F41.9 Anxiety disorder, unspecified; F12.90 Cannabis use, unspecified, uncomplicated; W01.10XA Fall on same level from slipping, tripping and stumbling with subsequent striking against unspecified object, initial encounter
CPT/HCPCS: 73562; 73610; 70450; 99284; 96372 ×3; J1200; J1170; J1885

== ENCOUNTER 2021-01-17 14:19 | Emergency (ER) | payer MEDICARE, OTHER ==
[2021-01-17 14:29] VITALS: BP 133/86; PULSE 110; RESP 18; TEMP 97.9
[2021-01-17] MEDS ORDERED: HYDROmorphone 1 MG/ML 1 ML SYRINGE IM STA (15:00)
--- NOTE | 2021-01-17 15:02 | ED ---
Extremity Problem HPI - General Chief complaint: Extremity Problem,Nontraumatic Stated complaint: pain in legs/issues with pain pump Time Seen by Provider: 01/17/21 14:48 Source: patient, RN notes reviewed Mode of arrival: ambulatory Limitations: no limitations - History of Present Illness Initial comments: 35-year-old female presents department for chronic pain syndrome. Patient has no new complaints. Denies any bowel bladder incontinence or retention of several seizures. No abdominal pain states she has pain rates in her legs otherwise similar associated symptoms. - Related Data Home Medications Medication Instructions Recorded Confirmed Medroxyprogesterone Acetate 150 mg IM Q84D 11/22/13 10/07/20 [Depo-Provera] rOPINIRole HCL [Requip] 1 mg PO BID@0900,1200 11/22/13 10/07/20 Pentosan Polysulfate Sodium 100 mg PO DAILY 02/10/15 10/07/20 [Elmiron] HYDROcodone/APAP 7.5-325MG [[place] 1 tab PO BID 07/20/16 10/07/20 7.5-325] Paliperidone IM Pt Own [[place] 117 mg IM Q28D 07/20/16 10/07/20 Sustenna] amantadine HCL [Symmetrel] 100 mg PO BID 11/21/16 10/07/20 Albuterol Sulfate [Proair Hfa] 2 puff INHALATION RT-QID PRN 01/13/18 10/07/20 Butalb/Acetaminophen/Caffeine 1 tab PO Q8H PRN 01/13/18 10/07/20 [Fioricet 50-325-40] Fluticasone Propionate [Flovent 1 puff INHALATION RT-BID 01/13/18 10/07/20 Hfa 110 mcg] Gemfibrozil [Lopid] 600 mg PO BID 01/13/18 10/07/20 Gabapentin [Neurontin] 300 mg PO TID 03/11/18 10/07/20 Gabapentin [Neurontin] 600 mg PO TID 09/16/19 10/07/20 Omeprazole [PriLOSEC] 40 mg PO DAILY 09/16/19 10/07/20 rOPINIRole HCL [Requip] 2 mg PO HS 09/16/19 10/07/20 traZODone HCL 300 mg PO HS 09/16/19 10/07/20 hydrOXYzine pamoate [hydrOXYzine 25 mg PO BID 04/13/20 10/07/20 PAMOATE] Cyclobenzaprine [Flexeril] 10 mg PO TID PRN 08/16/20 10/07/20 Fentanyl/Bupivcaine Pain Pump 1 dose INTRATHECA CONTINUOUS 08/16/20 10/07/20 Ibuprofen [Motrin] 600 mg PO TID PRN 10/07/20 10/07/20 diphenhydrAMINE [Benadryl] 50 mg PO DAILY PRN 10/07/20 10/07/20 Previous Rx's Medication Instructions Recorded Erythromycin Ophth Oint [Romycin 1 applic RIGHT EYE QID #1 bottle 10/03/20 Ophth Oint] Ondansetron Odt [Zofran Odt] 4 mg PO Q8HR PRN #14 tab 10/16/20 Allergies Allergy/AdvReac Type Severity Reaction Status Date / Time azithromycin Allergy Rash/Hives Verified 01/17/21 14:29 [From Zithromax Z-Mehrdad] cimetidine [From Tagamet] Allergy Rash/Hives Verified 01/17/21 14:29 ether [Ether] Allergy Anaphylaxis Verified 01/17/21 14:29 Fish Containing Products Allergy Anaphylaxis Verified 01/17/21 14:29 [Fish] ketorolac tromethamine Allergy Rash/Hives Verified 01/17/21 14:29 [From Toradol] morphine Allergy Unknown Verified 01/17/21 14:29 ziprasidone HCl [From Geodon] Allergy Extrapyramidal Verified 01/17/21 14:29 Symptoms fluphenazine HCl AdvReac Extrapyramidal Verified 01/17/21 14:29 [From Prolixin] Symptoms haloperidol [From Haldol] AdvReac Extrapyramidal Verified 01/17/21 14:29 Symptoms Sulfa (Sulfonamide AdvReac Nausea & Verified 01/17/21 14:29 Antibiotics) Vomiting Review of Systems ROS Statement: Those systems with pertinent positive or pertinent negative responses have been documented in the HPI. ROS Other: All systems not noted in ROS Statement are negative. Past Medical History Past Medical History: Asthma, GERD/Reflux, Hyperlipidemia, Musculoskeletal Disorder, Neurologic Disorder, Osteoarthritis (OA), Seizure Disorder Additional Past Medical History / Comment(s): RSD-DERIC FEET, INTERSTITIAL CYSTITIS, BRONCHITIS, HEMORRHOIDS,MIGRAINES, INSOMNIA. VERTIGO, last seizure 4 years ago, complex regional pain syndrome, RLS. History of Any Multi-Drug Resistant Organisms: MRSA Date of last positivie culture/infection: 04/20/15 MDRO Source:: Left Axilla Past Surgical History: Adenoidectomy, Back Surgery, Cholecystectomy, Orthopedic Surgery, Tonsillectomy Additional Past Surgical History / Comment(s): bilateral foot surgery d/t rsd, numerous pain clinic procedures, nerve stimulator in back to tx RSD placed in Nov 11 2015, pain pump placement, Past Anesthesia/Blood Transfusion Reactions: Previous Problems w/ Anesthesia Additional Past Anesthesia/Blood Transfusion Reaction / Comment(s): Pt recieved blood when she was 2 yrs old after tonsillectomy. WHEN BABY HEART STOPPED TWICE- PT STATED SHE WAS ALLERGIC TO ETHER. Past Psychological History: Anxiety, Bipolar, Depression, PTSD Smoking Status: Never smoker Past Alcohol Use History: None Reported Past Drug Use History: Marijuana - Past Family History Father History Unknown: Yes Family Medical History: Diabetes Mellitus Mother Family Medical History: Cancer, CVA/TIA, Diabetes Mellitus, Myocardial Infarcti on ([place]) Additional Family Medical History / Comment(s): Mother has had 5 CVAs, 3 MIs and UTERINE CANCER General Exam Limitations: no limitations General appearance: alert, in no apparent distress Head exam: Present: atraumatic, normocephalic, normal inspection Neck exam: Present: normal inspection. Absent: tenderness, meningismus, lymphadenopathy Respiratory exam: Present: normal lung sounds bilaterally. Absent: respiratory distress, wheezes, rales, rhonchi, stridor Cardiovascular Exam: Present: regular rate, normal rhythm, normal heart sounds. Absent: systolic murmur, diastolic murmur, rubs, gallop, clicks Back exam: Present: normal inspection, full ROM, tenderness, paraspinal tenderness. Absent: vertebral tenderness Neurological exam: Present: alert, oriented X3, CN II-XII intact Course Vital Signs 01/17/21 14:24 Temperature 97.9 F Pulse Rate 110 H Respiratory 18 Rate Blood Pressure 133/86 O2 Sat by Pulse 95 Oximetry Medical Decision Making - Medical Decision Making Patient has no red flag symptoms treated for chronic pain will be discharged in stable condition Disposition Clinical Impression: Chronic pain syndrome Disposition: HOME SELF-CARE Condition: Stable Instructions (If sedation given, give patient instructions): Chronic Pain (ED) Additional Instructions: Please return to the Emergency Department if symptoms worsen or any other concerns. Is patient prescribed a controlled substance at d/c from ED?: No Referrals: China Doyle MD [Primary Care Provider] - 1-2 days Time of Disposition: 15:01
== END 2021-01-17 15:12 | disposition home or self-care (01) ==
LOC: EC 14:19
DX: G89.4 Chronic pain syndrome (principal); J45.909 Unspecified asthma, uncomplicated; E78.5 Hyperlipidemia, unspecified; M19.90 Unspecified osteoarthritis, unspecified site; K21.9 Gastro-esophageal reflux disease without esophagitis; G40.909 Epilepsy, unspecified, not intractable, without status epilepticus; F43.10 Post-traumatic stress disorder, unspecified; F41.9 Anxiety disorder, unspecified; F31.9 Bipolar disorder, unspecified; F12.90 Cannabis use, unspecified, uncomplicated; Z79.51 Long term (current) use of inhaled steroids; Z79.899 Other long term (current) drug therapy
CPT/HCPCS: 99283; 96372; J1170

== ENCOUNTER 2021-01-20 14:01 | Emergency (ER) | payer MEDICARE, OTHER ==
[2021-01-20 14:19] VITALS: BP 134/87; PULSE 100; RESP 18; TEMP 98.6
[2021-01-20] MEDS ORDERED: SODIUM CHLORIDE 0.9% 1,000 ML IV STA (15:24)
[2021-01-20] MEDS ORDERED: diphenhydrAMINE 50 MG/ML 1 ML VIAL IVP STA (15:24)
[2021-01-20] MEDS ORDERED: fentaNYL (PF) 50 MCG/ML 2 ML AMP IVP STA ×2 (15:25→16:36)
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
[2021-01-20] MEDS ORDERED: ONDANSETRON 4 MG/2 ML VIAL IVP STA (16:34)
== END 2021-01-20 18:00 | disposition home or self-care (01) ==
LOC: EC 14:01
DX: G43.909 Migraine, unspecified, not intractable, without status migrainosus (principal); J45.909 Unspecified asthma, uncomplicated; K21.9 Gastro-esophageal reflux disease without esophagitis; E78.5 Hyperlipidemia, unspecified; M19.90 Unspecified osteoarthritis, unspecified site; F41.9 Anxiety disorder, unspecified; F31.9 Bipolar disorder, unspecified; F43.12 Post-traumatic stress disorder, chronic; F12.90 Cannabis use, unspecified, uncomplicated; Z88.1 Allergy status to other antibiotic agents; Z88.5 Allergy status to narcotic agent; Z88.2 Allergy status to sulfonamides; Z90.89 Acquired absence of other organs; Z90.49 Acquired absence of other specified parts of digestive tract; Z87.19 Personal history of other diseases of the digestive system
CPT/HCPCS: 99283; 96374; 96375 ×2; 96376; 96361; J1200; J2405; J3010

== ENCOUNTER 2021-02-06 20:09 | Emergency (ER) | payer MEDICARE, OTHER ==
[2021-02-07] MEDS ORDERED: diphenhydrAMINE 50 MG/ML 1 ML VIAL IM STA (00:03)
[2021-02-07] MEDS ORDERED: KETOROLAC 15 MG/ML 1 ML VIAL IM STA (00:03)
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
[2021-02-07 00:26] VITALS: TEMP 98.2
[2021-02-07 00:33] VITALS: BP 139/98; PULSE 101; RESP 20
== END 2021-02-07 00:37 | disposition home or self-care (01) ==
LOC: EC 20:09
DX: G89.29 Other chronic pain (principal); M79.604 Pain in right leg; M79.605 Pain in left leg; E78.5 Hyperlipidemia, unspecified; F31.9 Bipolar disorder, unspecified; F41.9 Anxiety disorder, unspecified; G40.909 Epilepsy, unspecified, not intractable, without status epilepticus; J45.909 Unspecified asthma, uncomplicated; F12.90 Cannabis use, unspecified, uncomplicated; K21.9 Gastro-esophageal reflux disease without esophagitis; Z79.1 Long term (current) use of non-steroidal anti-inflammatories (NSAID); Z79.3 Long term (current) use of hormonal contraceptives; Z79.51 Long term (current) use of inhaled steroids; Z79.899 Other long term (current) drug therapy; Z83.3 Family history of diabetes mellitus; Z82.49 Family history of ischemic heart disease and other diseases of the circulatory system; Z87.19 Personal history of other diseases of the digestive system; Z90.49 Acquired absence of other specified parts of digestive tract
CPT/HCPCS: 99283; 96372 ×2; J1200; J1885

== ENCOUNTER 2021-02-27 15:23 | Emergency (ER) | payer MEDICARE, OTHER ==
[2021-02-27 17:16] VITALS: BP 149/99; PULSE 90; RESP 16; TEMP 97.8
[2021-02-27] MEDS ORDERED: KETOROLAC 30 MG/ML 1 ML VIAL IM STA (21:51)
[2021-02-27] MEDS ORDERED: diphenhydrAMINE 50 MG/ML 1 ML VIAL IM STA (21:51)
--- NOTE | 2021-02-27 21:53 | ED ---
General Adult HPI - General Chief complaint: Headache Stated complaint: migraine Time Seen by Provider: 02/27/21 21:52 Source: patient Mode of arrival: ambulatory Limitations: no limitations - History of Present Illness Initial comments: 35-year-old female patient presenting for evaluation of migraine headache. States she's had headaches for the last 2 weeks. Does have history of chronic migraines. States her symptoms are consistent with her usual migraine pattern. States she has been having persistent vomiting. Sensitivity to light and sound. Denies numbness, tingling, weakness to her extremities. Denies any recent head injury. Denies this being the worst headache of her life. States it was a gradual onset with gradual worsening. - Related Data Home Medications Medication Instructions Recorded Confirmed Medroxyprogesterone Acetate 150 mg IM Q84D 11/22/13 10/07/20 [Depo-Provera] rOPINIRole HCL [Requip] 1 mg PO BID@0900,1200 11/22/13 10/07/20 Pentosan Polysulfate Sodium 100 mg PO DAILY 02/10/15 10/07/20 [Elmiron] HYDROcodone/APAP 7.5-325MG [[place] 1 tab PO BID 07/20/16 10/07/20 7.5-325] Paliperidone IM Pt Own [Invega 117 mg IM Q28D 07/20/16 10/07/20 Sustenna] amantadine HCL [Symmetrel] 100 mg PO BID 11/21/16 10/07/20 Albuterol Sulfate [Proair Hfa] 2 puff INHALATION RT-QID PRN 01/13/18 10/07/20 Butalb/Acetaminophen/Caffeine 1 tab PO Q8H PRN 01/13/18 10/07/20 [Fioricet 50-325-40] Fluticasone Propionate [Flovent 1 puff INHALATION RT-BID 01/13/18 10/07/20 Hfa 110 mcg] Gemfibrozil [Lopid] 600 mg PO BID 01/13/18 10/07/20 Gabapentin [Neurontin] 300 mg PO TID 03/11/18 10/07/20 Gabapentin [Neurontin] 600 mg PO TID 09/16/19 10/07/20 Omeprazole [PriLOSEC] 40 mg PO DAILY 09/16/19 10/07/20 rOPINIRole HCL [Requip] 2 mg PO HS 09/16/19 10/07/20 traZODone HCL 300 mg PO HS 09/16/19 10/07/20 hydrOXYzine pamoate [hydrOXYzine 25 mg PO BID 04/13/20 10/07/20 PAMOATE] Cyclobenzaprine [Flexeril] 10 mg PO TID PRN 08/16/20 10/07/20 Fentanyl/Bupivcaine Pain Pump 1 dose INTRATHECA CONTINUOUS 08/16/20 10/07/20 Ibuprofen [Motrin] 600 mg PO TID PRN 10/07/20 10/07/20 diphenhydrAMINE [Benadryl] 50 mg PO DAILY PRN 10/07/20 10/07/20 Previous Rx's Medication Instructions Recorded Erythromycin Ophth Oint [Romycin 1 applic RIGHT EYE QID #1 bottle 10/03/20 Ophth Oint] Ondansetron Odt [Zofran Odt] 4 mg PO Q8HR PRN #14 tab 10/16/20 Allergies Allergy/AdvReac Type Severity Reaction Status Date / Time azithromycin Allergy Rash/Hives Verified 02/27/21 17:16 [From Zithromax Z-Mehrdad] cimetidine [From Tagamet] Allergy Rash/Hives Verified 02/27/21 17:16 ether [Ether] Allergy Anaphylaxis Verified 02/27/21 17:16 Fish Containing Products Allergy Anaphylaxis Verified 02/27/21 17:16 [Fish] ketorolac tromethamine Allergy Rash/Hives Verified 02/27/21 17:16 [From Toradol] morphine Allergy Unknown Verified 02/27/21 17:16 ziprasidone HCl [From Geodon] Allergy Extrapyramidal Verified 02/27/21 17:16 Symptoms fluphenazine HCl AdvReac Extrapyramidal Verified 02/27/21 17:16 [From Prolixin] Symptoms haloperidol [From Haldol] AdvReac Extrapyramidal Verified 02/27/21 17:16 Symptoms Sulfa (Sulfonamide AdvReac Nausea & Verified 02/27/21 17:16 Antibiotics) Vomiting Review of Systems ROS Statement: Those systems with pertinent positive or pertinent negative responses have been documented in the HPI. ROS Other: All systems not noted in ROS Statement are negative. Past Medical History Past Medical History: Asthma, GERD/Reflux, Hyperlipidemia, Musculoskeletal Disorder, Neurologic Disorder, Osteoarthritis (OA), Seizure Disorder Additional Past Medical History / Comment(s): RSD-DERIC FEET, INTERSTITIAL CYSTITIS, BRONCHITIS, HEMORRHOIDS,MIGRAINES, INSOMNIA. VERTIGO, last seizure 4 years ago, complex regional pain syndrome, RLS. History of Any Multi-Drug Resistant Organisms: MRSA Date of last positivie culture/infection: 04/20/15 MDRO Source:: Left Axilla Past Surgical History: Adenoidectomy, Back Surgery, Cholecystectomy, Orthopedic Surgery, Tonsillectomy Additional Past Surgical History / Comment(s): bilateral foot surgery d/t rsd, numerous pain clinic procedures, nerve stimulator in back to tx RSD placed in Nov 11 2015, pain pump placement, Past Anesthesia/Blood Transfusion Reactions: Previous Problems w/ Anesthesia Additional Past Anesthesia/Blood Transfusion Reaction / Comment(s): Pt recieved blood when she was 2 yrs old after tonsillectomy. WHEN BABY HEART STOPPED TWICE- PT STATED SHE WAS ALLERGIC TO ETHER. Past Psychological History: Anxiety, Bipolar, Depression, PTSD Smoking Status: Never smoker Past Alcohol Use History: None Reported Past Drug Use History: Marijuana - Past Family History Father History Unknown: Yes Family Medical History: Diabetes Mellitus Mother Family Medical History: Cancer, CVA/TIA, Diabetes Mellitus, Myocardial Infarction ([place]) Additional Family Medical History / Comment(s): Mother has had 5 CVAs, 3 MIs and UTERINE CANCER General Exam Limitations: no limitations General appearance: alert, in no apparent distress, anxious Eye exam: Present: normal appearance, PERRL, EOMI. Absent: scleral icterus, conjunctival injection, nystagmus, periorbital swelling Respiratory exam: Present: normal lung sounds bilaterally. Absent: respiratory distress, wheezes, rales, rhonchi, stridor Cardiovascular Exam: Present: regular rate, normal rhythm, normal heart sounds. Absent: systolic murmur, diastolic murmur, rubs, gallop, clicks GI/Abdominal exam: Present: soft, normal bowel sounds. Absent: distended, tenderness, guarding, rebound, rigid Neurological exam: Present: alert, oriented X3, CN II-XII intact, other (Strength in all 4 extremities is 5/5.) Psychiatric exam: Present: normal affect, normal mood Skin exam: Present: warm, dry, intact, normal color. Absent: rash Course Vital Signs 02/27/21 17:14 Temperature 97.8 F Pulse Rate 90 Respiratory 16 Rate Blood Pressure 149/99 O2 Sat by Pulse 98 Oximetry Medical Decision Making - Medical Decision Making 5-year-old female patient presented for evaluation of migraine headache. Physical examination is unremarkable. She is neurologically intact with no deficits. She is given IM doses of Benadryl and Toradol. She'll be discharged up with her neurologist for further evaluation as soon as possible. Return parameters were discussed in detail. She verbalizes understanding and agrees with this plan. My attending is Dr. Hoang. Disposition Clinical Impression: Migraine headache Disposition: HOME SELF-CARE Condition: Good Instructions (If sedation given, give patient instructions): Migraine Headache (ED) Additional Instructions: Follow up with your neurologist for further evaluation. Return for any new, worsening, or concerning symptoms. Is patient prescribed a controlled substance at d/c from ED?: No Referrals: China Doyle MD [Primary Care Provider] - 1-2 days Time of Disposition: 21:52
== END 2021-02-27 22:07 | disposition home or self-care (01) ==
LOC: EC 15:23
DX: G43.909 Migraine, unspecified, not intractable, without status migrainosus (principal); J45.909 Unspecified asthma, uncomplicated; K21.9 Gastro-esophageal reflux disease without esophagitis; E78.5 Hyperlipidemia, unspecified; M19.90 Unspecified osteoarthritis, unspecified site; F41.9 Anxiety disorder, unspecified; F31.9 Bipolar disorder, unspecified; F12.90 Cannabis use, unspecified, uncomplicated; Z88.5 Allergy status to narcotic agent; Z88.1 Allergy status to other antibiotic agents; Z88.2 Allergy status to sulfonamides; Z90.49 Acquired absence of other specified parts of digestive tract
CPT/HCPCS: 99283; 96372 ×2; J1200; J1885

== ENCOUNTER 2021-03-20 19:39 | Emergency (ER) | payer MEDICARE, OTHER ==
[2021-03-20 22:39] VITALS: BP 140/90; PULSE 109; RESP 20; TEMP 98.7
[2021-03-21] MEDS ORDERED: HYDROmorphone 1 MG/ML 1 ML SYRINGE IM STA (00:10)
--- NOTE | 2021-03-21 00:18 | ED ---
Lower Extremity Injury HPI - General Chief Complaint: Extremity Injury, Lower Stated Complaint: Bilateral Leg Pain Time Seen by Provider: 03/20/21 22:58 Source: patient Mode of arrival: ambulatory Limitations: no limitations - History of Present Illness Initial Comments: Tiara a 35-year-old female to extensive past medical history most significant for complex regional pain syndrome of the bilateral lower extremities for which she has a pain pump and a nerve stimulator. Patient reports that a couple of days ago she tripped and fell over a ledge on the floor in her home. She stubbed her left great toe and had significant unbearable pain since that time. She contacted her neurologist about pain management advised her to come to the ER for evaluation. She does have some mild bruising to that toe. - Related Data Home Medications Medication Instructions Recorded Confirmed Medroxyprogesterone Acetate 150 mg IM Q84D 11/22/13 10/07/20 [Depo-Provera] rOPINIRole HCL [Requip] 1 mg PO BID@0900,1200 11/22/13 10/07/20 Pentosan Polysulfate Sodium 100 mg PO DAILY 02/10/15 10/07/20 [Elmiron] HYDROcodone/APAP 7.5-325MG [[place] 1 tab PO BID 07/20/16 10/07/20 7.5-325] Paliperidone IM Pt Own [Invega 117 mg IM Q28D 07/20/16 10/07/20 Sustenna] amantadine HCL [Symmetrel] 100 mg PO BID 11/21/16 10/07/20 Albuterol Sulfate [Proair Hfa] 2 puff INHALATION RT-QID PRN 01/13/18 10/07/20 Butalb/Acetaminophen/Caffeine 1 tab PO Q8H PRN 01/13/18 10/07/20 [Fioricet 50-325-40] Fluticasone Propionate [Flovent 1 puff INHALATION RT-BID 01/13/18 10/07/20 Hfa 110 mcg] Gemfibrozil [Lopid] 600 mg PO BID 01/13/18 10/07/20 Gabapentin [Neurontin] 300 mg PO TID 03/11/18 10/07/20 Gabapentin [Neurontin] 600 mg PO TID 09/16/19 10/07/20 Omeprazole [PriLOSEC] 40 mg PO DAILY 09/16/19 10/07/20 rOPINIRole HCL [Requip] 2 mg PO HS 09/16/19 10/07/20 traZODone HCL 300 mg PO HS 09/16/19 10/07/20 hydrOXYzine pamoate [hydrOXYzine 25 mg PO BID 04/13/20 10/07/20 PAMOATE] Cyclobenzaprine [Flexeril] 10 mg PO TID PRN 08/16/20 10/07/20 Fentanyl/Bupivcaine Pain Pump 1 dose INTRATHECA CONTINUOUS 08/16/20 10/07/20 Ibuprofen [Motrin] 600 mg PO TID PRN 10/07/20 10/07/20 diphenhydrAMINE [Benadryl] 50 mg PO DAILY PRN 10/07/20 10/07/20 Previous Rx's Medication Instructions Recorded Erythromycin Ophth Oint [Romycin 1 applic RIGHT EYE QID #1 bottle 10/03/20 Ophth Oint] Ondansetron Odt [Zofran Odt] 4 mg PO Q8HR PRN #14 tab 10/16/20 Allergies Allergy/AdvReac Type Severity Reaction Status Date / Time azithromycin Allergy Rash/Hives Verified 03/20/21 22:35 [From Zithromax Z-Mehrdad] cimetidine [From Tagamet] Allergy Rash/Hives Verified 03/20/21 22:35 ether [Ether] Allergy Anaphylaxis Verified 03/20/21 22:35 Fish Containing Products Allergy Anaphylaxis Verified 03/20/21 22:35 [Fish] ketorolac tromethamine Allergy Rash/Hives Verified 03/20/21 22:35 [From Toradol] morphine Allergy Unknown Verified 03/20/21 22:35 ziprasidone HCl [From Geodon] Allergy Extrapyramidal Verified 03/20/21 22:35 Symptoms fluphenazine HCl AdvReac Extrapyramidal Verified 03/20/21 22:35 [From Prolixin] Symptoms haloperidol [From Haldol] AdvReac Extrapyramidal Verified 03/20/21 22:35 Symptoms Sulfa (Sulfonamide AdvReac Nausea & Verified 03/20/21 22:35 Antibiotics) Vomiting Review of Systems ROS Statement: Those systems with pertinent positive or pertinent negative responses have been documented in the HPI. ROS Other: All systems not noted in ROS Statement are negative. Past Medical History Past Medical History: Asthma, GERD/Reflux, Hyperlipidemia, Musculoskeletal Disorder, Neurologic Disorder, Osteoarthritis (OA), Seizure Disorder Additional Past Medical History / Comment(s): RSD-DERIC FEET, INTERSTITIAL CYSTITIS, BRONCHITIS, HEMORRHOIDS,MIGRAINES, INSOMNIA. VERTIGO, last seizure 4 years ago, complex regional pain syndrome, RLS. History of Any Multi-Drug Resistant Organisms: MRSA Date of last positivie culture/infection: 04/20/15 MDRO Source:: Left Axilla Past Surgical History: Adenoidectomy, Back Surgery, Cholecystectomy, Orthopedic Surgery, Tonsillectomy Additional Past Surgical History / Comment(s): bilateral foot surgery d/t rsd, numerous pain clinic procedures, nerve stimulator in back to tx RSD placed in Nov 11 2015, pain pump placement, Past Anesthesia/Blood Transfusion Reactions: Previous Problems w/ Anesthesia Additional Past Anesthesia/Blood Transfusion Reaction / Comment(s): Pt recieved blood when she was 2 yrs old after tonsillectomy. WHEN BABY HEART STOPPED TWICE- PT STATED SHE WAS ALLERGIC TO ETHER. Past Psychological History: Anxiety, Bipolar, Depression, PTSD Smoking Status: Never smoker Past Alcohol Use History: None Reported Past Drug Use History: Marijuana - Past Family History Father History Unknown: Yes Family Medical History: Diabetes Mellitus Mother Family Medical History: Cancer, CVA/TIA, Diabetes Mellitus, Myocardial Infarction ([place]) Additional Family Medical History / Comment(s): Mother has had 5 CVAs, 3 MIs and UTERINE CANCER General Exam - General Exam Comments Initial Comments: Physical Exam GENERAL: Patient is well-developed and well-nourished. Patient is nontoxic and well-hydrated and is in no distress. HENT: Normocephalic, Atraumatic. EYES: PERRL, EOMI PULMONARY: Unlabored respirations. CARDIOVASCULAR: RRR Warm and well perfused extremities ABDOMEN: Non-distended SKIN: No rashes or bruising : Deferred NEUROLOGIC: Alert and oriented Normal speech Normal gait MUSCULOSKELETAL: Bruising to left great toe, minimal swelling no subungual hematoma PSYCHIATRIC: No SI/HI Limitations: no limitations Course Vital Signs 03/20/21 22:36 Temperature 98.7 F Pulse Rate 109 H Respiratory 20 Rate Blood Pressure 140/90 O2 Sat by Pulse 98 Oximetry Medical Decision Making - Medical Decision Making Patient was seen and evaluated history is obtained from patient, patient has chronic pain stubbed her toe now has worsening pain from her, but regional pain syndrome x-rays and pain management were ordered X-rays were obtained and reveal no evidence of fracture these results were discussed patient expresses relief and is comfortable with plan for discharge home after her dose of IM Dilaudid Disposition Clinical Impression: Toe pain Disposition: HOME SELF-CARE Condition: Stable Additional Instructions: Follow up with your neurologist for further management of exacerbation of chronic pain Is patient prescribed a controlled substance at d/c from ED?: No Referrals: China Doyle MD [Primary Care Provider] - 1-2 days
--- NOTE | 2021-03-21 00:37 | XR ---
EXAMINATION TYPE: XR toes LT DATE OF EXAM: 03/21/2021 COMPARISON: 11/14/2014 HISTORY: Pain TECHNIQUE: 3 views FINDINGS: I see no fracture nor dislocation. There is probably osteotomy of the first metatarsal head . The toes appear intact. There are no erosions. There is no subluxation. IMPRESSION: No acute abnormality of the toes. No fracture. No sign of inflammatory arthritis.
== END 2021-03-21 01:33 | disposition home or self-care (01) ==
LOC: EC 19:39
DX: M79.675 Pain in left toe(s) (principal); J45.909 Unspecified asthma, uncomplicated; K21.9 Gastro-esophageal reflux disease without esophagitis; E78.5 Hyperlipidemia, unspecified; M19.90 Unspecified osteoarthritis, unspecified site; G40.909 Epilepsy, unspecified, not intractable, without status epilepticus; F41.9 Anxiety disorder, unspecified; F43.10 Post-traumatic stress disorder, unspecified; F31.9 Bipolar disorder, unspecified; G43.909 Migraine, unspecified, not intractable, without status migrainosus; F12.90 Cannabis use, unspecified, uncomplicated; Z79.51 Long term (current) use of inhaled steroids; W01.0XXA Fall on same level from slipping, tripping and stumbling without subsequent striking against object, initial encounter; Y92.019 Unspecified place in single-family (private) house as the place of occurrence of the external cause
CPT/HCPCS: 73660; 99283; 96372; J1170

== ENCOUNTER 2021-03-30 14:53 | Emergency (ER) | payer MEDICARE, OTHER ==
[2021-03-30 15:38] VITALS: RESP 18; TEMP 98.3
[2021-03-30] MEDS ORDERED: KETOROLAC 15 MG/ML 1 ML VIAL IVP STA (16:32)
[2021-03-30] MEDS ORDERED: diphenhydrAMINE 50 MG/ML 1 ML VIAL IVP STA (16:32)
[2021-03-30] MEDS ORDERED: METOCLOPRAMIDE 5 MG/ML 2 ML VIAL IVP STA (16:32)
[2021-03-30] MEDS ORDERED: SODIUM CHLORIDE 0.9% 1,000 ML IV ONE (16:32)
--- NOTE | 2021-03-30 16:42 | ED ---
Headache HPI - General Chief Complaint: Headache Stated Complaint: Migraine Time Seen by Provider: 03/30/21 16:11 Mode of arrival: ambulatory Limitations: physical limitation - History of Present Illness Initial Comments: 35 year-old female patient presents for migraine headache x9 days. pain is frontal and behind her eyes. She reports vomiting. She is unable to keep down any food or fluids. Reports light and sound sensitivity. Denies fever or chills. Does have history of migraines and states her symptoms are typical. Denies any new symptoms. Denies this being the worst headache of her life. She denies any numbness, tingling, or weakness to her extremities. Denies recent head injury. Did take fioricet and zofran at home without relief. - Related Data Home Medications Medication Instructions Recorded Confirmed Medroxyprogesterone Acetate 150 mg IM Q84D 11/22/13 10/07/20 [Depo-Provera] rOPINIRole HCL [Requip] 1 mg PO BID@0900,1200 11/22/13 10/07/20 Pentosan Polysulfate Sodium 100 mg PO DAILY 02/10/15 10/07/20 [Elmiron] HYDROcodone/APAP 7.5-325MG [[place] 1 tab PO BID 07/20/16 10/07/20 7.5-325] Paliperidone IM Pt Own [Invega 117 mg IM Q28D 07/20/16 10/07/20 Sustenna] amantadine HCL [Symmetrel] 100 mg PO BID 11/21/16 10/07/20 Albuterol Sulfate [Proair Hfa] 2 puff INHALATION RT-QID PRN 01/13/18 10/07/20 Butalb/Acetaminophen/Caffeine 1 tab PO Q8H PRN 01/13/18 10/07/20 [Fioricet 50-325-40] Fluticasone Propionate [Flovent 1 puff INHALATION RT-BID 01/13/18 10/07/20 Hfa 110 mcg] Gemfibrozil [Lopid] 600 mg PO BID 01/13/18 10/07/20 Gabapentin [Neurontin] 300 mg PO TID 03/11/18 10/07/20 Gabapentin [Neurontin] 600 mg PO TID 09/16/19 10/07/20 Omeprazole [PriLOSEC] 40 mg PO DAILY 09/16/19 10/07/20 rOPINIRole HCL [Requip] 2 mg PO HS 09/16/19 10/07/20 traZODone HCL 300 mg PO HS 09/16/19 10/07/20 hydrOXYzine pamoate [hydrOXYzine 25 mg PO BID 04/13/20 10/07/20 PAMOATE] Cyclobenzaprine [Flexeril] 10 mg PO TID PRN 08/16/20 10/07/20 Fentanyl/Bupivcaine Pain Pump 1 dose INTRATHECA CONTINUOUS 08/16/20 10/07/20 Ibuprofen [Motrin] 600 mg PO TID PRN 10/07/20 10/07/20 diphenhydrAMINE [Benadryl] 50 mg PO DAILY PRN 10/07/20 10/07/20 Previous Rx's Medication Instructions Recorded Erythromycin Ophth Oint [Romycin 1 applic RIGHT EYE QID #1 bottle 10/03/20 Ophth Oint] Ondansetron Odt [Zofran Odt] 4 mg PO Q8HR PRN #14 tab 10/16/20 Allergies Allergy/AdvReac Type Severity Reaction Status Date / Time azithromycin Allergy Rash/Hives Verified 03/30/21 15:38 [From Zithromax Z-Mehrdad] cimetidine [From Tagamet] Allergy Rash/Hives Verified 03/30/21 15:38 ether [Ether] Allergy Anaphylaxis Verified 03/30/21 15:38 Fish Containing Products Allergy Anaphylaxis Verified 03/30/21 15:38 [Fish] ketorolac tromethamine Allergy Rash/Hives Verified 03/30/21 15:38 [From Toradol] morphine Allergy Unknown Verified 03/30/21 15:38 ziprasidone HCl [From Geodon] Allergy Extrapyramidal Verified 03/30/21 15:38 Symptoms fluphenazine HCl AdvReac Extrapyramidal Verified 03/30/21 15:38 [From Prolixin] Symptoms haloperidol [From Haldol] AdvReac Extrapyramidal Verified 03/30/21 15:38 Symptoms Sulfa (Sulfonamide AdvReac Nausea & Verified 03/30/21 15:38 Antibiotics) Vomiting Review of Systems ROS Statement: Those systems with pertinent positive or pertinent negative responses have been documented in the HPI. ROS Other: All systems not noted in ROS Statement are negative. Past Medical History Past Medical History: Asthma, GERD/Reflux, Hyperlipidemia, Musculoskeletal Disorder, Neurologic Disorder, Osteoarthritis (OA), Seizure Disorder Additional Past Medical History / Comment(s): RSD-DERIC FEET, INTERSTITIAL CYSTITI S, BRONCHITIS, HEMORRHOIDS,MIGRAINES, INSOMNIA. VERTIGO, last seizure 4 years ago, complex regional pain syndrome, RLS. History of Any Multi-Drug Resistant Organisms: MRSA Date of last positivie culture/infection: 04/20/15 MDRO Source:: Left Axilla Past Surgical History: Adenoidectomy, Back Surgery, Cholecystectomy, Orthopedic Surgery, Tonsillectomy Additional Past Surgical History / Comment(s): bilateral foot surgery d/t rsd, numerous pain clinic procedures, nerve stimulator in back to tx RSD placed in Nov 11 2015, pain pump placement, Past Anesthesia/Blood Transfusion Reactions: Previous Problems w/ Anesthesia Additional Past Anesthesia/Blood Transfusion Reaction / Comment(s): Pt recieved blood when she was 2 yrs old after tonsillectomy. WHEN BABY HEART STOPPED TWICE- PT STATED SHE WAS ALLERGIC TO ETHER. Past Psychological History: Anxiety, Bipolar, Depression, PTSD Smoking Status: Never smoker Past Alcohol Use History: None Reported Past Drug Use History: Marijuana - Past Family History Father History Unknown: Yes Family Medical History: Diabetes Mellitus Mother Family Medical History: Cancer, CVA/TIA, Diabetes Mellitus, Myocardial Infarction ([place]) Additional Family Medical History / Comment(s): Mother has had 5 CVAs, 3 MIs and UTERINE CANCER General Exam Limitations: physical limitation General appearance: alert, in no apparent distress, other (This is a well- developed, well-nourished adult female patient in mild distress related to pain.) Eye exam: Present: normal appearance, PERRL, EOMI. Absent: scleral icterus, conjunctival injection, nystagmus, periorbital swelling ENT exam: Present: normal exam, normal oropharynx, mucous membranes moist Respiratory exam: Present: normal lung sounds bilaterally. Absent: respiratory distress, wheezes, rales, rhonchi, stridor Cardiovascular Exam: Present: regular rate, normal rhythm, normal heart sounds. Absent: systolic murmur, diastolic murmur, rubs, gallop, clicks GI/Abdominal exam: Present: soft, normal bowel sounds. Absent: distended, tenderness, guarding, rebound, rigid Neurological exam: Present: alert, oriented X3, CN II-XII intact, other (Strength in the upper extremities is 5/5. Strength in the lower extremities is undetermined due to patient refusal due to history of chronic leg pain.) Psychiatric exam: Present: normal affect, normal mood Skin exam: Present: warm, dry, intact, normal color. Absent: rash Course Vital Signs 03/30/21 15:34 Temperature 98.3 F Pulse Rate 90 Respiratory 18 Rate Blood Pressure 139/104 O2 Sat by Pulse 98 Oximetry Medical Decision Making - Medical Decision Making 35-year-old female patient chronic history of migraines presents for headache for the last 9 days. Physical examination is unremarkable. She is neurologically intact with no focal deficits. She is given IV fluids and pain medication. Upon reevaluation should have slight improvement symptoms. She'll be discharged to follow-up with her primary care physician and neurologist as soon as possible. Return parameters were discussed in detail. She verbalizes understanding and agrees with this plan. My attending is Dr. Hoang. Disposition Clinical Impression: Migraine headache Disposition: HOME SELF-CARE Condition: Good Instructions (If sedation given, give patient instructions): Migraine Headache (ED) Additional Instructions: Rest. Start clear liquid diet and advance as tolerated. Follow up with the primary care physician for recheck in 1-2 days. Return for any new, worsening, or concerning symptoms. Is patient prescribed a controlled substance at d/c from ED?: No Referrals: China Doyle MD [Primary Care Provider] - 1-2 days Time of Disposition: 18:17
[2021-03-30] MEDS ORDERED: methylPREDNISolone SOD SUCCI 125 MG/2 ML VIAL IV STA (17:41)
[2021-03-30] MEDS ORDERED: HYDROmorphone 0.5 MG/0.5 ML SYRINGE IVP STA (18:20)
[2021-03-30 18:42] VITALS: BP 138/89; PULSE 80
== END 2021-03-30 18:42 | disposition home or self-care (01) ==
LOC: EC 14:53
DX: G43.909 Migraine, unspecified, not intractable, without status migrainosus (principal); J45.909 Unspecified asthma, uncomplicated; K21.9 Gastro-esophageal reflux disease without esophagitis; E78.5 Hyperlipidemia, unspecified; M19.90 Unspecified osteoarthritis, unspecified site; F41.9 Anxiety disorder, unspecified; F31.9 Bipolar disorder, unspecified; F43.12 Post-traumatic stress disorder, chronic; F12.90 Cannabis use, unspecified, uncomplicated; Z88.1 Allergy status to other antibiotic agents; Z88.2 Allergy status to sulfonamides; Z90.49 Acquired absence of other specified parts of digestive tract
CPT/HCPCS: 99283; 96374; 96375 ×4; 96361; J1200; J2765; J2930; J1885; J1170

== ENCOUNTER 2021-05-01 16:29 | Emergency (ER) | payer MEDICARE, OTHER ==
[2021-05-01 16:44] VITALS: BP 115/71; PULSE 110; RESP 18; TEMP 97.8
[2021-05-01] MEDS ORDERED: HYDROmorphone 0.5 MG/0.5 ML SYRINGE IM STA (19:23)
--- NOTE | 2021-05-01 19:23 | ED ---
General Adult HPI - General Chief complaint: Extremity Problem,Nontraumatic Stated complaint: Pain in legs Time Seen by Provider: 05/01/21 18:29 Source: patient, RN notes reviewed Mode of arrival: ambulatory Limitations: no limitations - History of Present Illness Initial comments: 35-year-old female with a past medical history of complex regional pain syndrome, RLS, chronic leg pain presents to the emergency room for a chief complaint of leg pain. Patient states that she has a pain pump in place and they have been adjusting the medication. Patient states that she had some worsening pain over the past 5 days and her legs consistent with her regional complex pain syndrome. Patient denies weakness in the legs. Denies fevers.Patient has no other complaints at this time including shortness of breath, chest pain, abdominal pain, nausea or vomiting, headache, or visual changes. - Related Data Home Medications Medication Instructions Recorded Confirmed Medroxyprogesterone Acetate 150 mg IM Q84D 11/22/13 10/07/20 [Depo-Provera] rOPINIRole HCL [Requip] 1 mg PO BID@0900,1200 11/22/13 10/07/20 Pentosan Polysulfate Sodium 100 mg PO DAILY 02/10/15 10/07/20 [Elmiron] HYDROcodone/APAP 7.5-325MG [[place] 1 tab PO BID 07/20/16 10/07/20 7.5-325] Paliperidone IM Pt Own [Invega 117 mg IM Q28D 07/20/16 10/07/20 Sustenna] amantadine HCL [Symmetrel] 100 mg PO BID 11/21/16 10/07/20 Albuterol Sulfate [Proair Hfa] 2 puff INHALATION RT-QID PRN 01/13/18 10/07/20 Butalb/Acetaminophen/Caffeine 1 tab PO Q8H PRN 01/13/18 10/07/20 [Fioricet 50-325-40] Fluticasone Propionate [Flovent 1 puff INHALATION RT-BID 01/13/18 10/07/20 Hfa 110 mcg] Gemfibrozil [Lopid] 600 mg PO BID 01/13/18 10/07/20 Gabapentin [Neurontin] 300 mg PO TID 03/11/18 10/07/20 Gabapentin [Neurontin] 600 mg PO TID 09/16/19 10/07/20 Omeprazole [PriLOSEC] 40 mg PO DAILY 09/16/19 10/07/20 rOPINIRole HCL [Requip] 2 mg PO HS 09/16/19 10/07/20 traZODone HCL 300 mg PO HS 09/16/19 10/07/20 hydrOXYzine pamoate [hydrOXYzine 25 mg PO BID 04/13/20 10/07/20 PAMOATE] Cyclobenzaprine [Flexeril] 10 mg PO TID PRN 08/16/20 10/07/20 Fentanyl/Bupivcaine Pain Pump 1 dose INTRATHECA CONTINUOUS 08/16/20 10/07/20 Ibuprofen [Motrin] 600 mg PO TID PRN 10/07/20 10/07/20 diphenhydrAMINE [Benadryl] 50 mg PO DAILY PRN 10/07/20 10/07/20 Previous Rx's Medication Instructions Recorded Erythromycin Ophth Oint [Romycin 1 applic RIGHT EYE QID #1 bottle 10/03/20 Ophth Oint] Ondansetron Odt [Zofran Odt] 4 mg PO Q8HR PRN #14 tab 10/16/20 Allergies Allergy/AdvReac Type Severity Reaction Status Date / Time azithromycin Allergy Rash/Hives Verified 05/01/21 16:39 [From Zithromax Z-Mehrdad] cimetidine [From Tagamet] Allergy Rash/Hives Verified 05/01/21 16:39 ether [Ether] Allergy Anaphylaxis Verified 05/01/21 16:39 Fish Containing Products Allergy Anaphylaxis Verified 05/01/21 16:39 [Fish] ibuprofen [From Motrin] Allergy Rash/Hives Verified 05/01/21 16:39 ketorolac tromethamine Allergy Rash/Hives Verified 05/01/21 16:39 [From Toradol] morphine Allergy Unknown Verified 05/01/21 16:39 ziprasidone HCl [From Geodon] Allergy Extrapyramidal Verified 05/01/21 16:39 Symptoms fluphenazine HCl AdvReac Extrapyramidal Verified 05/01/21 16:39 [From Prolixin] Symptoms haloperidol [From Haldol] AdvReac Extrapyramidal Verified 05/01/21 16:39 Symptoms Sulfa (Sulfonamide AdvReac Nausea & Verified 05/01/21 16:39 Antibiotics) Vomiting Review of Systems ROS Statement: Those systems with pertinent positive or pertinent negative responses have been documented in the HPI. ROS Other: All systems not noted in ROS Statement are negative. Past Medical History Past Medical History: Asthma, GERD/Reflux, Hyperlipidemia, Musculoskeletal Disorder, Neurologic Disorder, Osteoarthritis (OA), Seizure Disorder Additional Past Medical History / Comment(s): RSD-DERIC FEET, INTERSTITIAL CYSTITIS, BRONCHITIS, HEMORRHOIDS,MIGRAINES, INSOMNIA. VERTIGO, last seizure 4 years ago, complex regional pain syndrome, RLS. History of Any Multi-Drug Resistant Organisms: MRSA Date of last positivie culture/infection: 04/20/15 MDRO Source:: Left Axilla Past Surgical History: Adenoidectomy, Back Surgery, Cholecystectomy, Orthopedic Surgery, Tonsillectomy Additional Past Surgical History / Comment(s): bilateral foot surgery d/t rsd, numerous pain clinic procedures, nerve stimulator in back to tx RSD placed in Nov 11 2015, pain pump placement, Past Anesthesia/Blood Transfusion Reactions: Previous Problems w/ Anesthesia Additional Past Anesthesia/Blood Transfusion Reaction / Comment(s): Pt recieved blood when she was 2 yrs old after tonsillectomy. WHEN BABY HEART STOPPED TWICE- PT STATED SHE WAS ALLERGIC TO ETHER. Past Psychological History: Anxiety, Bipolar, Depression, PTSD Smoking Status: Never smoker Past Alcohol Use History: None Reported Past Drug Use History: Marijuana - Past Family History Father History Unknown: Yes Family Medical History: Diabetes Mellitus Mother Family Medical History: Cancer, CVA/TIA, Diabetes Mellitus, Myocardial Infarction ([place]) Additional Family Medical History / Comment(s): Mother has had 5 CVAs, 3 MIs and UTERINE CANCER General Exam Limitations: no limitations General appearance: alert, in no apparent distress Head exam: Present: atraumatic Eye exam: Present: normal appearance, PERRL, EOMI. Absent: scleral icterus, conjunctival injection ENT exam: Present: normal exam, mucous membranes moist Neck exam: Present: normal inspection, full ROM. Absent: tenderness Respiratory exam: Present: normal lung sounds bilaterally. Absent: respiratory distress, wheezes Cardiovascular Exam: Present: regular rate, normal rhythm, normal heart sounds GI/Abdominal exam: Present: soft, normal bowel sounds. Absent: distended, tenderness Extremities exam: Present: full ROM (Full range of motion of the lower extremities), tenderness (Mild generalized pain of BLE), normal capillary refill (A refill less than 2 seconds, DP pulse 2+ bilaterally). Absent: pedal edema, joint swelling, calf tenderness (No specific calf tenderness, negative Homans sign) Course Vital Signs 05/01/21 16:39 Temperature 97.8 F Pulse Rate 110 H Respiratory 18 Rate Blood Pressure 115/71 O2 Sat by Pulse 96 Oximetry Medical Decision Making - Medical Decision Making Patient's symptoms are consistent with her complex regional pain syndrome. Patient was given pain management. She will need to follow up with her neurologist Dr. Shannon. She will return here for any worsening symptoms. Disposition Clinical Impression: Chronic leg pain, Complex regional pain syndrome Disposition: HOME SELF-CARE Condition: Good Instructions (If sedation given, give patient instructions): Leg Pain (ED) Additional Instructions: Follow-up with your pain management doctor. Return to the emergency room for any worsening symptoms. Is patient prescribed a controlled substance at d/c from ED?: No Referrals: China Doyle MD [Primary Care Provider] - 1-2 days Time of Disposition: 19:22
== END 2021-05-01 19:41 | disposition home or self-care (01) ==
LOC: EC 16:29
DX: G90.523 Complex regional pain syndrome I of lower limb, bilateral (principal); J45.909 Unspecified asthma, uncomplicated; K21.9 Gastro-esophageal reflux disease without esophagitis; E78.5 Hyperlipidemia, unspecified; M19.90 Unspecified osteoarthritis, unspecified site; F41.9 Anxiety disorder, unspecified; F31.9 Bipolar disorder, unspecified; F43.12 Post-traumatic stress disorder, chronic; F12.90 Cannabis use, unspecified, uncomplicated; Z88.1 Allergy status to other antibiotic agents; Z88.2 Allergy status to sulfonamides; Z88.5 Allergy status to narcotic agent; Z90.49 Acquired absence of other specified parts of digestive tract
CPT/HCPCS: 96372; 99283

== ENCOUNTER 2021-05-15 16:30 | Emergency (ER) | payer MEDICARE, OTHER ==
[2021-05-15 17:11] VITALS: RESP 18; TEMP 98.3
--- NOTE | 2021-05-15 18:31 | XR ---
EXAMINATION TYPE: XR ankle limited LT DATE OF EXAM: 05/15/2021 COMPARISON: NONE HISTORY: Pain TECHNIQUE: 2 views FINDINGS: Ankle mortise is anatomic. I see no fracture nor dislocation. Joint spaces are fairly jessica l. IMPRESSION: Negative left ankle exam. No fracture.
--- NOTE | 2021-05-15 18:32 | XR ---
EXAMINATION TYPE: XR Hip Complete LT DATE OF EXAM: 05/15/2021 COMPARISON: NONE HISTORY: Pain. Fall TECHNIQUE: 2 views FINDINGS: There is no evidence of fracture nor dislocation. Hip joint space is fairly normal. Sacroil iac joint is intact. IMPRESSION: Normal left hip exam. Normal hip joint space.
--- NOTE | 2021-05-15 18:35 | XR ---
EXAMINATION TYPE: XR knee complete LT DATE OF EXAM: 05/15/2021 COMPARISON: NONE HISTORY: Pain. Fall TECHNIQUE: 3 views FINDINGS: I see no fracture nor dislocation. Joint spaces are normal. There is no sign of knee joint effusion. IMPRESSION: Negative left knee exam.
--- NOTE | 2021-05-15 22:11 | XR ---
EXAMINATION TYPE: XR pelvis AP view DATE OF EXAM: 05/15/2021 COMPARISON: 10/07/2020 HISTORY: Pain. Left groin pain TECHNIQUE: Single view FINDINGS: Pelvic ring is intact. Proximal femurs and hip joints are intact. Sacroiliac joints are int act. There is neural stimulator over the lower lumbar spine. IMPRESSION: No acute abnormality of the pelvis. Normal hip joint spaces. No change.
[2021-05-15] MEDS ORDERED: KETOROLAC 15 MG/ML 1 ML VIAL IM STA (23:01)
[2021-05-15] MEDS ORDERED: HYDROmorphone 1 MG/ML 1 ML SYRINGE IM STA (23:01)
[2021-05-15] MEDS ORDERED: diphenhydrAMINE 50 MG/ML 1 ML VIAL IM STA (23:01)
--- NOTE | 2021-05-15 23:03 | ED ---
Lower Extremity Injury HPI - General Chief Complaint: Extremity Injury, Lower Stated Complaint: fall, lt leg injury Time Seen by Provider: 05/15/21 22:56 Source: patient Mode of arrival: wheelchair Limitations: physical limitation - History of Present Illness Initial Comments: 35 year-old female patient presents for evaluation of left leg pain after a slip and fall on the ice today. She was walking her dog when she slipped on the ice and fell landing on her left side. States she is having pain in her left hip and groin. She also reports pain to the left knee and ankle. States she has increased pain with weight bearing. Denies numbness or tingling of the leg. Denies hitting her head or losing consciousness. Denies any neck or back pain. Injury occurred around 9-10am this morning. States she did take a hot bath and took a norco after the fall. States it did not help her pain so she came in for further evaluation. Patient denies any headache, chest pain, shortness of breath, dizziness, weakness, abdominal pain, nausea, vomiting, or difficulties with bowel movements or urination. - Related Data Home Medications Medication Instructions Recorded Confirmed Medroxyprogesterone Acetate 150 mg IM Q84D 11/22/13 10/07/20 [Depo-Provera] rOPINIRole HCL [Requip] 1 mg PO BID@0900,1200 11/22/13 10/07/20 Pentosan Polysulfate Sodium 100 mg PO DAILY 02/10/15 10/07/20 [Elmiron] HYDROcodone/APAP 7.5-325MG [[place] 1 tab PO BID 07/20/16 10/07/20 7.5-325] Paliperidone IM Pt Own [Invega 117 mg IM Q28D 07/20/16 10/07/20 Sustenna] amantadine HCL [Symmetrel] 100 mg PO BID 11/21/16 10/07/20 Albuterol Sulfate [Proair Hfa] 2 puff INHALATION RT-QID PRN 01/13/18 10/07/20 Butalb/Acetaminophen/Caffeine 1 tab PO Q8H PRN 01/13/18 10/07/20 [Fioricet 50-325-40] Fluticasone Propionate [Flovent 1 puff INHALATION RT-BID 01/13/18 10/07/20 Hfa 110 mcg] Gemfibrozil [Lopid] 600 mg PO BID 01/13/18 10/07/20 Gabapentin [Neurontin] 300 mg PO TID 03/11/18 10/07/20 Gabapentin [Neurontin] 600 mg PO TID 09/16/19 10/07/20 Omeprazole [PriLOSEC] 40 mg PO DAILY 09/16/19 10/07/20 rOPINIRole HCL [Requip] 2 mg PO HS 09/16/19 10/07/20 traZODone HCL 300 mg PO HS 09/16/19 10/07/20 hydrOXYzine pamoate [hydrOXYzine 25 mg PO BID 04/13/20 10/07/20 PAMOATE] Cyclobenzaprine [Flexeril] 10 mg PO TID PRN 08/16/20 10/07/20 Fentanyl/Bupivcaine Pain Pump 1 dose INTRATHECA CONTINUOUS 08/16/20 10/07/20 Ibuprofen [Motrin] 600 mg PO TID PRN 10/07/20 10/07/20 diphenhydrAMINE [Benadryl] 50 mg PO DAILY PRN 10/07/20 10/07/20 Previous Rx's Medication Instructions Recorded Erythromycin Ophth Oint [Romycin 1 applic RIGHT EYE QID #1 bottle 10/03/20 Ophth Oint] Ondansetron Odt [Zofran Odt] 4 mg PO Q8HR PRN #14 tab 10/16/20 Allergies Allergy/AdvReac Type Severity Reaction Status Date / Time azithromycin Allergy Rash/Hives Verified 05/15/21 17:07 [From Zithromax Z-Mehrdad] cimetidine [From Tagamet] Allergy Rash/Hives Verified 05/15/21 17:07 ether [Ether] Allergy Anaphylaxis Verified 05/15/21 17:07 Fish Containing Products Allergy Anaphylaxis Verified 05/15/21 17:07 [Fish] ibuprofen [From Motrin] Allergy Rash/Hives Verified 05/15/21 17:07 ketorolac tromethamine Allergy Rash/Hives Verified 05/15/21 17:07 [From Toradol] morphine Allergy Unknown Verified 05/15/21 17:07 ziprasidone HCl [From Geodon] Allergy Extrapyramidal Verified 05/15/21 17:07 Symptoms fluphenazine HCl AdvReac Extrapyramidal Verified 05/15/21 17:07 [From Prolixin] Symptoms haloperidol [From Haldol] AdvReac Extrapyramidal Verified 05/15/21 17:07 Symptoms Sulfa (Sulfonamide AdvReac Nausea & Verified 05/15/21 17:07 Antibiotics) Vomiting Review of Systems ROS Statement: Those systems with pertinent positive or pertinent negative responses have been documented in the HPI. ROS Other: All systems not noted in ROS Statement are negative. Past Medical History Past Medical History: Asthma, GERD/Reflux, Hyperlipidemia, Musculoskeletal Disorder, Neurologic Disorder, Osteoarthritis (OA), Seizure Disorder Additional Past Medical History / Comment(s): RSD-DERIC FEET, INTERSTITIAL CYSTITIS, BRONCHITIS, HEMORRHOIDS,MIGRAINES, INSOMNIA. VERTIGO, last seizure 4 years ago, complex regional pain syndrome, RLS. History of Any Multi-Drug Resistant Organisms: MRSA Date of last positivie culture/infection: 04/20/15 MDRO Source:: Left Axilla Past Surgical History: Adenoidectomy, Back Surgery, Cholecystectomy, Orthopedic Surgery, Tonsillectomy Additional Past Surgical History / Comment(s): bilateral foot surgery d/t rsd, numerous pain clinic procedures, nerve stimulator in back to tx RSD placed in Nov 11 2015, pain pump placement, Past Anesthesia/Blood Transfusion Reactions: Previous Problems w/ Anesthesia Additional Past Anesthesia/Blood Transfusion Reaction / Comment(s): Pt recieved blood when she was 2 yrs old after tonsillectomy. WHEN BABY HEART STOPPED TWICE- PT STATED SHE WAS ALLERGIC TO ETHER. Past Psychological History: Anxiety, Bipolar, Depression, PTSD Smoking Status: Never smoker Past Alcohol Use History: None Reported Past Drug Use History: Marijuana - Past Family History Father History Unknown: Yes Family Medical History: Diabetes Mellitus Mother Family Medical History: Cancer, CVA/TIA, Diabetes Mellitus, Myocardial Infarction ([place]) Additional Family Medical History / Comment(s): Mother has had 5 CVAs, 3 MIs and UTERINE CANCER General Exam Limitations: physical limitation General appearance: alert, in no apparent distress, other (This is a well- developed, well-nourished adult female in no acute distress.) Eye exam: Present: normal appearance, PERRL, EOMI. Absent: scleral icterus, conjunctival injection, periorbital swelling ENT exam: Present: normal exam, normal oropharynx, mucous membranes moist Respiratory exam: Present: normal lung sounds bilaterally. Absent: respiratory distress, wheezes, rales, rhonchi, stridor Cardiovascular Exam: Present: regular rate, normal rhythm, normal heart sounds. Absent: systolic murmur, diastolic murmur, rubs, gallop, clicks GI/Abdominal exam: Present: soft, normal bowel sounds. Absent: distended, tenderness, guarding, rebound, rigid Extremities exam: Present: normal inspection, full ROM, tenderness (Left hip, left groin, left knee, left ankle.), normal capillary refill, other (Skin to the left leg is pink, warm, dry. Cap refill less than 3 seconds. Pedal and posttibial pulses 2+.). Absent: pedal edema, joint swelling, calf tenderness Neurological exam: Present: alert, oriented X3, CN II-XII intact Psychiatric exam: Present: normal affect, normal mood Skin exam: Present: warm, dry, intact, normal color. Absent: rash Course Vital Signs 05/15/21 17:07 Temperature 98.3 F Pulse Rate 93 Respiratory 18 Rate Blood Pressure 150/104 O2 Sat by Pulse 98 Oximetry Medical Decision Making - Medical Decision Making 35-year-old female patient presents to the emergency department today for evaluation of left leg pain after a slip and fall. Physical examination did reveal tenderness over the left lateral hip, left groin, left knee, left ankle. Neurovascular status is intact. X-rays of the pelvis, hip, knee, and ankle were obtained and were negative for any acute fracture. She is given pain medication. She is discharged follow-up with orthopedics for further evaluation as soon as possible. Return parameters were discussed in detail. She verbalizes understanding and agrees with this plan. My attending is Dr. Hernandez. - Radiology Data Radiology results: report reviewed, image reviewed Single view of the pelvis was obtained. Report was reviewed in its entirety. Impression by Dr. Vernon shows no acute abnormality of the pelvis. Normal hip joint spaces. No change. X-ray of the left knee is obtained. Report is reviewed in its entirety. Impression by Dr. Vernon shows negative left knee exam. 2 views of the left hip are obtained. Eversion reviewed in its entirety. Impression by Dr. Vernon shows normal left hip exam. Normal hip joint space. 2 views of left ankle are obtained. Report was reviewed in its entirety. Impression by Dr. Vernon shows negative left ankle exam. No fracture. Disposition Clinical Impression: Contusion of left hip, Contusion of left leg, Contusion of left ankle Disposition: HOME SELF-CARE Condition: Good Instructions (If sedation given, give patient instructions): Hip Contusion (ED), Non-pharmacological Pain Management Therapies for Adults (ED) Additional Instructions: Follow-up with on site services specialist for further evaluation as soon as possible. Follow up with your primary care physician for recheck in 1-2 days. Return for any new, worsening, or concerning symptoms. Is patient prescribed a controlled substance at d/c from ED?: No Referrals: China Doyle MD [Primary Care Provider] - 1-2 days Time of Disposition: 23:03
[2021-05-15 23:42] VITALS: BP 166/99; PULSE 110
== END 2021-05-15 23:41 | disposition home or self-care (01) ==
LOC: EC 16:30
DX: S90.02XA Contusion of left ankle, initial encounter (principal); S70.02XA Contusion of left hip, initial encounter; J45.909 Unspecified asthma, uncomplicated; K21.9 Gastro-esophageal reflux disease without esophagitis; E78.5 Hyperlipidemia, unspecified; M19.90 Unspecified osteoarthritis, unspecified site; F41.9 Anxiety disorder, unspecified; F31.9 Bipolar disorder, unspecified; F43.12 Post-traumatic stress disorder, chronic; F12.90 Cannabis use, unspecified, uncomplicated; Z88.1 Allergy status to other antibiotic agents; Z88.2 Allergy status to sulfonamides; Z88.5 Allergy status to narcotic agent; Z88.6 Allergy status to analgesic agent; Z90.49 Acquired absence of other specified parts of digestive tract; W00.0XXA Fall on same level due to ice and snow, initial encounter
CPT/HCPCS: 99283 ×2; 96372 ×4; 72170; 73502; 73562; 73600; J1200; J1170; J1885

== ENCOUNTER 2021-06-05 21:33 | Emergency (ER) | payer MEDICARE, OTHER ==
[2021-06-05 23:21] VITALS: TEMP 97.9
[2021-06-06] MEDS ORDERED: MORPHINE SULFATE 4 MG/ML SYRINGE IM STA ×2 (00:57→02:43)
[2021-06-06] MEDS ORDERED: ORPHENADRINE 30 MG/ML 2 ML VIAL IM STA (00:59)
--- NOTE | 2021-06-06 01:08 | ED ---
Fall HPI - General Chief Complaint: Fall Stated Complaint: Fell, RT side pain, Hit head Time Seen by Provider: 06/06/21 00:51 Source: patient, RN notes reviewed Mode of arrival: ambulatory - History of Present Illness Initial Comments: This is a 35-year-old female who presents to the nurse prior to sustaining mechanical fall at home. Patient complaining of sharp pain to the right lumbar area. This happens to be over her nerve stimulator. Patient had the stimulator placed by a local neurologist. States it feels like she is getting shocked. Patient did strike the back of her head on a step as well. However, does not believe she lost consciousness. She is not on blood thinners. Patient denies any significant neck pain. No upper back pain. No headache, no fever or chills, no changes in vision or hearing, no sore throat or difficulty with speech, no neck pain, no chest pain or shortness of breath, no abdominal pain, no nausea or vomiting, no changes in urination or bowel movements, no numbness or tingling, no extremity pain, no skin rashes or lesions. MD Complaint: fall - Related Data Home Medications Medication Instructions Recorded Confirmed Medroxyprogesterone Acetate 150 mg IM Q84D 11/22/13 10/07/20 [Depo-Provera] rOPINIRole HCL [Requip] 1 mg PO BID@0900,1200 11/22/13 10/07/20 Pentosan Polysulfate Sodium 100 mg PO DAILY 02/10/15 10/07/20 [Elmiron] HYDROcodone/APAP 7.5-325MG [[place] 1 tab PO BID 07/20/16 10/07/20 7.5-325] Paliperidone IM Pt Own [Invega 117 mg IM Q28D 07/20/16 10/07/20 Sustenna] amantadine HCL [Symmetrel] 100 mg PO BID 11/21/16 10/07/20 Albuterol Sulfate [Proair Hfa] 2 puff INHALATION RT-QID PRN 01/13/18 10/07/20 Butalb/Acetaminophen/Caffeine 1 tab PO Q8H PRN 01/13/18 10/07/20 [Fioricet 50-325-40] Fluticasone Propionate [Flovent 1 puff INHALATION RT-BID 01/13/18 10/07/20 Hfa 110 mcg] Gemfibrozil [Lopid] 600 mg PO BID 01/13/18 10/07/20 Gabapentin [Neurontin] 300 mg PO TID 03/11/18 10/07/20 Gabapentin [Neurontin] 600 mg PO TID 09/16/19 10/07/20 Omeprazole [PriLOSEC] 40 mg PO DAILY 09/16/19 10/07/20 rOPINIRole HCL [Requip] 2 mg PO HS 09/16/19 10/07/20 traZODone HCL 300 mg PO HS 09/16/19 10/07/20 hydrOXYzine pamoate [hydrOXYzine 25 mg PO BID 04/13/20 10/07/20 PAMOATE] Cyclobenzaprine [Flexeril] 10 mg PO TID PRN 08/16/20 10/07/20 Fentanyl/Bupivcaine Pain Pump 1 dose INTRATHECA CONTINUOUS 08/16/20 10/07/20 Ibuprofen [Motrin] 600 mg PO TID PRN 10/07/20 10/07/20 diphenhydrAMINE [Benadryl] 50 mg PO DAILY PRN 10/07/20 10/07/20 Previous Rx's Medication Instructions Recorded Erythromycin Ophth Oint [Romycin 1 applic RIGHT EYE QID #1 bottle 10/03/20 Ophth Oint] Ondansetron Odt [Zofran Odt] 4 mg PO Q8HR PRN #14 tab 10/16/20 Allergies Allergy/AdvReac Type Severity Reaction Status Date / Time azithromycin Allergy Rash/Hives Verified 06/05/21 23:21 [From Zithromax Z-Mehrdad] cimetidine [From Tagamet] Allergy Rash/Hives Verified 06/05/21 23:21 ether [Ether] Allergy Anaphylaxis Verified 06/05/21 23:21 Fish Containing Products Allergy Anaphylaxis Verified 06/05/21 23:21 [Fish] ibuprofen [From Motrin] Allergy Rash/Hives Verified 06/05/21 23:21 ketorolac tromethamine Allergy Rash/Hives Verified 06/05/21 23:21 [From Toradol] morphine Allergy Unknown Verified 06/05/21 23:21 ziprasidone HCl [From Geodon] Allergy Extrapyramidal Verified 06/05/21 23:21 Symptoms fluphenazine HCl AdvReac Extrapyramidal Verified 06/05/21 23:21 [From Prolixin] Symptoms haloperidol [From Haldol] AdvReac Extrapyramidal Verified 06/05/21 23:21 Symptoms Sulfa (Sulfonamide AdvReac Nausea & Verified 06/05/21 23:21 Antibiotics) Vomiting Review of Systems ROS Statement: Those systems with pertinent positive or pertinent negative responses have been documented in the HPI. ROS Other: All systems not noted in ROS Statement are negative. Past Medical History Past Medical History: Asthma, GERD/Reflux, Hyperlipidemia, Musculoskeletal Disorder, Neurologic Disorder, Osteoarthritis (OA), Seizure Disorder Additional Past Medical History / Comment(s): RSD-DERIC FEET, INTERSTITIAL CYSTITIS, BRONCHITIS, HEMORRHOIDS,MIGRAINES, INSOMNIA. VERTIGO, last seizure 4 years ago, complex regional pain syndrome, RLS. History of Any Multi-Drug Resistant Organisms: MRSA Date of last positivie culture/infection: 04/20/15 MDRO Source:: Left Axilla Past Surgical History: Adenoidectomy, Back Surgery, Cholecystectomy, Orthopedic Surgery, Tonsillectomy Additional Past Surgical History / Comment(s): bilateral foot surgery d/t rsd, numerous pain clinic procedures, nerve stimulator in back to tx RSD placed in Nov 11 2015, pain pump placement, Past Anesthesia/Blood Transfusion Reactions: Previous Problems w/ Anesthesia Additional Past Anesthesia/Blood Transfusion Reaction / Comment(s): Pt recieved blood when she was 2 yrs old after tonsillectomy. WHEN BABY HEART STOPPED TWICE- PT STATED SHE WAS ALLERGIC TO ETHER. Past Psychological History: Anxiety, Bipolar, Depression, PTSD Smoking Status: Never smoker Past Alcohol Use History: None Reported Past Drug Use History: Marijuana - Past Family History Father History Unknown: Yes Family Medical History: Diabetes Mellitus Mother Family Medical History: Cancer, CVA/TIA, Diabetes Mellitus, Myocardial I nfarction ([place]) Additional Family Medical History / Comment(s): Mother has had 5 CVAs, 3 MIs and UTERINE CANCER General Exam - General Exam Comments Initial Comments: 35-year-old female in moderate distress secondary to low back pain. Vital signs reviewed Limitations: no limitations General appearance: alert, in no apparent distress Head exam: Present: atraumatic, normocephalic, normal inspection Eye exam: Present: normal appearance, PERRL, EOMI. Absent: scleral icterus, conjunctival injection, periorbital swelling ENT exam: Present: normal exam, mucous membranes moist Neck exam: Present: normal inspection, full ROM. Absent: tenderness, meningismus, lymphadenopathy Respiratory exam: Present: normal lung sounds bilaterally. Absent: respiratory distress, wheezes, rales, rhonchi, stridor Cardiovascular Exam: Present: regular rate, normal rhythm, normal heart sounds. Absent: systolic murmur, diastolic murmur, rubs, gallop, clicks GI/Abdominal exam: Present: soft, normal bowel sounds. Absent: distended, tenderness, guarding, rebound, rigid Extremities exam: Present: normal inspection, full ROM, normal capillary refill. Absent: tenderness, pedal edema, joint swelling, calf tenderness Back exam: Present: normal inspection, tenderness, paraspinal tenderness, other (Tender to the right lumbar area overlying the implanted nerve stimulator. No break in skin integrity. No midline tenderness to the spine.). Absent: CVA tenderness (R), muscle spasm, vertebral tenderness, rash noted Neurological exam: Present: alert, oriented X3, CN II-XII intact, normal gait. Absent: abnormal gait, motor sensory deficit, reflexes normal Expanded Patient oriented to: Present: person, place, time Speech: Present: fluid speech Eye Response: (4) open spontaneously Motor Response: (6) obeys commands Verbal Response: (5) oriented [place] Total: 15 Psychiatric exam: Present: normal affect, normal mood Skin exam: Present: warm, dry, intact, normal color. Absent: rash Course Vital Signs 06/05/21 23:17 Temperature 97.9 F Pulse Rate 83 Respiratory 18 Rate Blood Pressure 111/71 O2 Sat by Pulse 100 Oximetry - Reevaluation(s) Reevaluation #1: 06/06/21 02:35 Medical record is reviewed Symptoms are improved here in the emergency department Patient is informed of results and questions answered Patient in no distress Medical Decision Making - Medical Decision Making Mechanical fall, no LOC, no blood thinners, neurologically intact. No acute findings on plain film x-rays. Patient did not meet criteria for computed tomography scan based on [place] CT rules. There was no evidence of cauda equina syndrome. No radicular pain. No saddle anesthesia. Patient was warned to return immediately if any such symptoms develop. Patient has pain medication at home. We'll have the patient follow-up with her neurologist for reevaluation. Patient was told to return to the ER for any signs or symptoms worsen. Told to return immediately if any other problems arise. All questions answered. Treatment plan discussed. Patient in agreement Every effort has been made to ensure accuracy of this dictation. However, due to the limitations of electronic medical records and dictation devices, errors in charting still occur. The case was discussed in detail with ED attending physician. Presentation, findings, treatment plan discussed in detail. Disposition Clinical Impression: Fall, Back contusion, Closed head injury Disposition: HOME SELF-CARE Condition: Good Instructions (If sedation given, give patient instructions): Head Injury (ED), Back Pain (ED), Fall Prevention (ED) Is patient prescribed a controlled substance at d/c from ED?: No Referrals: China Doyle MD [Primary Care Provider] - 1-2 days
--- NOTE | 2021-06-06 02:19 | XR ---
EXAMINATION TYPE: XR cervical spine limited DATE OF EXAM: 06/06/2021 COMPARISON: NONE HISTORY: Fall down the stairs. Pain TECHNIQUE: 3 views FINDINGS: Cervical vertebra have normal alignment. Disc spaces are fairly normal. Posterior elements are intact. There is no compression fracture. Prevertebral soft tissues are intact. IMPRESSION: Negative cervical spine exam. No fracture.
--- NOTE | 2021-06-06 02:21 | XR ---
EXAMINATION TYPE: XR lumbar spine 2 or 3V DATE OF EXAM: 06/06/2021 COMPARISON: 05/25/2013 HISTORY: Pain TECHNIQUE: 3 views FINDINGS: Lumbar vertebrae have normal alignment. Posterior element are intact. Disc spaces are fairl y normal. There is neural stimulator noted over the pelvis bilaterally. There is no evidence of a mas s. Sacroiliac joints are intact. IMPRESSION: Neural stimulators. No acute abnormality of the lumbar spine. No change compared to old e xam.
[2021-06-06] MEDS ORDERED: ACETAMINOPHEN TAB 325 MG TAB PO STA (02:48)
[2021-06-06 03:12] VITALS: BP 126/72; PULSE 78; RESP 16
== END 2021-06-06 02:50 | disposition home or self-care (01) ==
LOC: EC 21:33
DX: S30.0XXA Contusion of lower back and pelvis, initial encounter (principal); S09.90XA Unspecified injury of head, initial encounter; J45.909 Unspecified asthma, uncomplicated; E78.5 Hyperlipidemia, unspecified; K21.9 Gastro-esophageal reflux disease without esophagitis; G40.909 Epilepsy, unspecified, not intractable, without status epilepticus; M19.90 Unspecified osteoarthritis, unspecified site; F31.9 Bipolar disorder, unspecified; F41.9 Anxiety disorder, unspecified; F12.90 Cannabis use, unspecified, uncomplicated; Z79.51 Long term (current) use of inhaled steroids; Z79.899 Other long term (current) drug therapy; W10.9XXA Fall (on) (from) unspecified stairs and steps, initial encounter
CPT/HCPCS: 72040; 72100; 96372; 99284

== ENCOUNTER 2021-06-08 16:30 | Emergency (ER) | payer MEDICARE, OTHER ==
[2021-06-08] MEDS ORDERED: HYDROmorphone 1 MG/ML 1 ML SYRINGE IM STA ×2 (17:34→18:56)
--- NOTE | 2021-06-08 18:26 | CT ---
EXAMINATION TYPE: CT abdomen pelvis wo con DATE OF EXAM: 06/08/2021 COMPARISON: None available HISTORY: back/flank pain CT DLP: combined DLP 1172.4 mGycm Automated exposure control for dose reduction was used. TECHNIQUE: Helical acquisition of images was performed from the lung bases through the pelvis. FINDINGS: LUNG BASES: No acute abnormality is appreciated. Nonspecific 2 mm left lower lobe nodule. LIVER/GB: No acute abnormality is appreciated. Cholecystectomy. PANCREAS: No significant abnormality is seen. SPLEEN: No significant abnormality is seen. ADRENALS: No significant abnormality is seen. KIDNEYS: No significant abnormality is seen. FREE AIR: No free air is visualized RETROPERITONEAL ADENOPATHY: None visualized REPRODUCTIVE ORGANS: No significant abnormality is seen URINARY BLADDER: No significant abnormality is seen. PELVIC ADENOPATHY: None visualized. OSSEOUS STRUCTURES: No acute abnormality is seen. 2 thoracolumbar neurostimulator devices seen. BOWEL: No significant abnormality is seen. OTHER: None IMPRESSION: NO ACUTE ABNORMALITY.
--- NOTE | 2021-06-08 18:31 | CT ---
EXAMINATION TYPE: CT lumbar spine wo con DATE OF EXAM: 06/08/2021 6:07 PM COMPARISON: None available HISTORY: back/flank pain CT DLP: combined DLP 1172.4 mGycm Technique: Noncontrast axial CT images of the lumbar spine was obtained with images provided in bone and soft tissue algorithm. Coronal and sagittal reformats were provided and reviewed. Automated dos e control was used for this exam. Findings: The bone mineralization is age-appropriate. There is no acute fracture or subluxation of the lumbar spine. Alignment is anatomic. Multilevel tho racolumbar vertebral body endplate sclerotic changes consistent with Schmorl's nodes and/or bone alejandrina nds. Otherwise vertebral body and disc heights are grossly maintained. 2 neurostimulator devices with leads terminating in the lumbar and thoracic spine seen. No significant paraspinal soft tissue abnormality. Impression: No significant abnormality.
--- NOTE | 2021-06-08 19:01 | ED ---
General Adult HPI - General Chief complaint: Recheck/Abnormal Lab/Rx Stated complaint: Fall/Lower Back Pain Source: patient Mode of arrival: wheelchair Limitations: no limitations - History of Present Illness Initial comments: 35-year-old female with multiple medical conditions including chronic opiate use, chronic back pain presents to the emergency departments with low back pain. States that she fell down the steps on Saturday. She was seen in our emergency department and x-rays were completed of her neck and low back. Her stimulator became erratic after her fall and therefore she had a turn it off. Her neck pain improved however she has persistent right-sided paraspinal pain which wraps around to her right upper quadrant. Admits to associated nausea without vomiti ng. No changes in her bowel or bladder habits. She follows with Dr. Shannon. Called his office in regards to the malfunctioning stimulator however was unable to obtain an appointment until tomorrow. She was instructed that if her pain was too bad that she needed to come into the emergency department for evaluation. She denies any fevers. She is in a pain contract. No other alleviating, precipitating or modifying factors - Related Data Home Medications Medication Instructions Recorded Confirmed Medroxyprogesterone Acetate 150 mg IM Q84D 11/22/13 10/07/20 [Depo-Provera] rOPINIRole HCL [Requip] 1 mg PO BID@0900,1200 11/22/13 10/07/20 Pentosan Polysulfate Sodium 100 mg PO DAILY 02/10/15 10/07/20 [Elmiron] HYDROcodone/APAP 7.5-325MG [[place] 1 tab PO BID 07/20/16 10/07/20 7.5-325] Paliperidone IM Pt Own [Invega 117 mg IM Q28D 07/20/16 10/07/20 Sustenna] amantadine HCL [Symmetrel] 100 mg PO BID 11/21/16 10/07/20 Albuterol Sulfate [Proair Hfa] 2 puff INHALATION RT-QID PRN 01/13/18 10/07/20 Butalb/Acetaminophen/Caffeine 1 tab PO Q8H PRN 01/13/18 10/07/20 [Fioricet 50-325-40] Fluticasone Propionate [Flovent 1 puff INHALATION RT-BID 01/13/18 10/07/20 Hfa 110 mcg] Gemfibrozil [Lopid] 600 mg PO BID 01/13/18 10/07/20 Gabapentin [Neurontin] 300 mg PO TID 03/11/18 10/07/20 Gabapentin [Neurontin] 600 mg PO TID 09/16/19 10/07/20 Omeprazole [PriLOSEC] 40 mg PO DAILY 09/16/19 10/07/20 rOPINIRole HCL [Requip] 2 mg PO HS 09/16/19 10/07/20 traZODone HCL 300 mg PO HS 09/16/19 10/07/20 hydrOXYzine pamoate [hydrOXYzine 25 mg PO BID 04/13/20 10/07/20 PAMOATE] Cyclobenzaprine [Flexeril] 10 mg PO TID PRN 08/16/20 10/07/20 Fentanyl/Bupivcaine Pain Pump 1 dose INTRATHECA CONTINUOUS 08/16/20 10/07/20 Ibuprofen [Motrin] 600 mg PO TID PRN 10/07/20 10/07/20 diphenhydrAMINE [Benadryl] 50 mg PO DAILY PRN 10/07/20 10/07/20 Previous Rx's Medication Instructions Recorded Erythromycin Ophth Oint [Romycin 1 applic RIGHT EYE QID #1 bottle 10/03/20 Ophth Oint] Ondansetron Odt [Zofran Odt] 4 mg PO Q8HR PRN #14 tab 10/16/20 Allergies Allergy/AdvReac Type Severity Reaction Status Date / Time azithromycin Allergy Rash/Hives Verified 06/08/21 16:32 [From Zithromax Z-Mehrdad] cimetidine [From Tagamet] Allergy Rash/Hives Verified 06/08/21 16:32 ether [Ether] Allergy Anaphylaxis Verified 06/08/21 16:32 Fish Containing Products Allergy Anaphylaxis Verified 06/08/21 16:32 [Fish] ibuprofen [From Motrin] Allergy Rash/Hives Verified 06/08/21 16:32 ketorolac tromethamine Allergy Rash/Hives Verified 06/08/21 16:32 [From Toradol] morphine Allergy Unknown Verified 06/08/21 16:32 ziprasidone HCl [From Geodon] Allergy Extrapyramidal Verified 06/08/21 16:32 Symptoms fluphenazine HCl AdvReac Extrapyramidal Verified 06/08/21 16:32 [From Prolixin] Symptoms haloperidol [From Haldol] AdvReac Extrapyramidal Verified 06/08/21 16:32 Symptoms Sulfa (Sulfonamide AdvReac Nausea & Verified 06/08/21 16:32 Antibiotics) Vomiting Review of Systems ROS Statement: Those systems with pertinent positive or pertinent negative responses have been documented in the HPI. ROS Other: All systems not noted in ROS Statement are negative. Past Medical History Past Medical History: Asthma, GERD/Reflux, Hyperlipidemia, Musculoskeletal Disorder, Neurologic Disorder, Osteoarthritis (OA), Seizure Disorder Additional Past Medical History / Comment(s): RSD-DERIC FEET, INTERSTITIAL CYSTITIS, BRONCHITIS, HEMORRHOIDS,MIGRAINES, INSOMNIA. VERTIGO, last seizure 4 years ago, complex regional pain syndrome, RLS. History of Any Multi-Drug Resistant Organisms: MRSA Date of last positivie culture/infection: 04/20/15 MDRO Source:: Left Axilla Past Surgical History: Adenoidectomy, Back Surgery, Cholecystectomy, Orthopedic Surgery, Tonsillectomy Additional Past Surgical History / Comment(s): bilateral foot surgery d/t rsd, numerous pain clinic procedures, nerve stimulator in back to tx RSD placed in Nov 11 2015, pain pump placement, Past Anesthesia/Blood Transfusion Reactions: Previous Problems w/ Anesthesia Additional Past Anesthesia/Blood Transfusion Reaction / Comment(s): Pt recieved blood when she was 2 yrs old after tonsillectomy. WHEN BABY HEART STOPPED TWICE- PT STATED SHE WAS ALLERGIC TO ETHER. Past Psychological History: Anxiety, Bipolar, Depression, PTSD Smoking Status: Never smoker Past Alcohol Use History: None Reported Past Drug Use History: Marijuana - Past Family History Father History Unknown: Yes Family Medical History: Diabetes Mellitus Mother Family Medical History: Cancer, CVA/TIA, Diabetes Mellitus, Myocardial Infarction ([place]) Additional Family Medical History / Comment(s): Mother has had 5 CVAs, 3 MIs and UTERINE CANCER General Exam Limitations: no limitations Course Vital Signs 06/08/21 06/08/21 16:32 19:16 Temperature 98.0 F 98 F Pulse Rate 110 H 78 Respiratory 20 18 Rate Blood Pressure 145/90 128/78 O2 Sat by Pulse 97 98 Oximetry Medical Decision Making - Medical Decision Making Upon arrival patient is placed in room 28. I did review the patient's imaging from her previous visit. Recommended repeating imaging of her abdomen to include a CT of her abdomen, pelvis and lumbar spine. Patient did agree to this. She is given 1 mg of Dilaudid IM. Imaging demonstrates no acute abnormalities. Results are discussed the patient. She has been in contact with her neurology office. Instructed to follow up with them tomorrow in regards to her stimulator and pain pump. She is in a pain contract and therefore no pain medications can be given at discharge. Instructed to return for any new or worsening symptoms. Patient and the treatment plan she was discharged in stable condition Disposition Clinical Impression: Right flank pain, Fall Disposition: HOME SELF-CARE Condition: Stable Instructions (If sedation given, give patient instructions): Fall Prevention (ED) Additional Instructions: Please call Dr. Shannon for further pain management options. Return to the emergency room for any new or worsening symptoms Is patient prescribed a controlled substance at d/c from ED?: No Referrals: China Doyle MD [Primary Care Provider] - 1-2 days Casper Shannon MD [Medical Doctor] - 1-2 days Time of Disposition: 19:00
[2021-06-08 19:17] VITALS: BP 128/78; PULSE 78; RESP 18; TEMP 98
== END 2021-06-08 19:16 | disposition home or self-care (01) ==
LOC: EC 16:30
DX: R10.11 Right upper quadrant pain (principal); J45.909 Unspecified asthma, uncomplicated; K21.9 Gastro-esophageal reflux disease without esophagitis; E78.5 Hyperlipidemia, unspecified; M19.90 Unspecified osteoarthritis, unspecified site; F41.9 Anxiety disorder, unspecified; F31.9 Bipolar disorder, unspecified; F43.10 Post-traumatic stress disorder, unspecified; F12.90 Cannabis use, unspecified, uncomplicated; Z88.1 Allergy status to other antibiotic agents; Z88.6 Allergy status to analgesic agent; Z88.2 Allergy status to sulfonamides; Z90.49 Acquired absence of other specified parts of digestive tract
CPT/HCPCS: 99284; 96372 ×2; 72131; 74176; J1170

== ENCOUNTER 2021-06-21 17:27 | Emergency (ER) | payer MEDICARE, OTHER ==
[2021-06-21 17:36] VITALS: BP 144/90; PULSE 95; RESP 18; TEMP 97.6
[2021-06-21] MEDS ORDERED: DEXAMETHASONE SOD PHOSPHATE 10 MG/ML 1 ML VIAL IV STA (19:42)
[2021-06-21] MEDS ORDERED: METOCLOPRAMIDE 5 MG/ML 2 ML VIAL IVP STA (19:42)
[2021-06-21] MEDS ORDERED: diphenhydrAMINE 50 MG/ML 1 ML VIAL IVP STA (19:42)
[2021-06-21] MEDS ORDERED: SODIUM CHLORIDE 0.9% 1,000 ML IV STA (19:52)
[2021-06-21] MEDS ORDERED: ONDANSETRON 4 MG/2 ML VIAL IVP STA (20:51)
--- NOTE | 2021-06-21 20:53 | ED ---
Headache HPI - General Chief Complaint: Headache Stated Complaint: Migraine Time Seen by Provider: 06/21/21 19:22 Mode of arrival: ambulatory - History of Present Illness Initial Comments: Patient is a 35-year-old female who presents to the emergency department with chief complaint of migraine x 2 days. Patient reports this migraine is similar to her other migraines. She denies visual symptoms. Patient reports she took Fioricet at home with no relief. She has no other concerns at this time including fever, chills, shortness of breath, cough, chest pain, abdominal pain, nausea, vomiting, diarrhea, and burning with urination. - Related Data Home Medications Medication Instructions Recorded Confirmed Medroxyprogesterone Acetate 150 mg IM Q84D 11/22/13 10/07/20 [Depo-Provera] rOPINIRole HCL [Requip] 1 mg PO BID@0900,1200 11/22/13 10/07/20 Pentosan Polysulfate Sodium 100 mg PO DAILY 02/10/15 10/07/20 [Elmiron] HYDROcodone/APAP 7.5-325MG [[place] 1 tab PO BID 07/20/16 10/07/20 7.5-325] Paliperidone IM Pt Own [Invega 117 mg IM Q28D 07/20/16 10/07/20 Sustenna] amantadine HCL [Symmetrel] 100 mg PO BID 11/21/16 10/07/20 Albuterol Sulfate [Proair Hfa] 2 puff INHALATION RT-QID PRN 01/13/18 10/07/20 Butalb/Acetaminophen/Caffeine 1 tab PO Q8H PRN 01/13/18 10/07/20 [Fioricet 50-325-40] Fluticasone Propionate [Flovent 1 puff INHALATION RT-BID 01/13/18 10/07/20 Hfa 110 mcg] Gemfibrozil [Lopid] 600 mg PO BID 01/13/18 10/07/20 Gabapentin [Neurontin] 300 mg PO TID 03/11/18 10/07/20 Gabapentin [Neurontin] 600 mg PO TID 09/16/19 10/07/20 Omeprazole [PriLOSEC] 40 mg PO DAILY 09/16/19 10/07/20 rOPINIRole HCL [Requip] 2 mg PO HS 09/16/19 10/07/20 traZODone HCL 300 mg PO HS 09/16/19 10/07/20 hydrOXYzine pamoate [hydrOXYzine 25 mg PO BID 04/13/20 10/07/20 PAMOATE] Cyclobenzaprine [Flexeril] 10 mg PO TID PRN 08/16/20 10/07/20 Fentanyl/Bupivcaine Pain Pump 1 dose INTRATHECA CONTINUOUS 08/16/20 10/07/20 Ibuprofen [Motrin] 600 mg PO TID PRN 10/07/20 10/07/20 diphenhydrAMINE [Benadryl] 50 mg PO DAILY PRN 10/07/20 10/07/20 Previous Rx's Medication Instructions Recorded Erythromycin Ophth Oint [Romycin 1 applic RIGHT EYE QID #1 bottle 10/03/20 Ophth Oint] Ondansetron Odt [Zofran Odt] 4 mg PO Q8HR PRN #14 tab 10/16/20 Ondansetron Odt [Zofran Odt] 4 mg PO Q8HR PRN #10 tab 06/21/21 Allergies Allergy/AdvReac Type Severity Reaction Status Date / Time azithromycin Allergy Rash/Hives Verified 06/21/21 17:36 [From Zithromax Z-Mehrdad] cimetidine [From Tagamet] Allergy Rash/Hives Verified 06/21/21 17:36 ether [Ether] Allergy Anaphylaxis Verified 06/21/21 17:36 Fish Containing Products Allergy Anaphylaxis Verified 06/21/21 17:36 [Fish] ibuprofen [From Motrin] Allergy Rash/Hives Verified 06/21/21 17:36 ketorolac tromethamine Allergy Rash/Hives Verified 06/21/21 17:36 [From Toradol] morphine Allergy Unknown Verified 06/21/21 17:36 ziprasidone HCl [From Geodon] Allergy Extrapyramidal Verified 06/21/21 17:36 Symptoms fluphenazine HCl AdvReac Extrapyramidal Verified 06/21/21 17:36 [From Prolixin] Symptoms haloperidol [From Haldol] AdvReac Extrapyramidal Verified 06/21/21 17:36 Symptoms Sulfa (Sulfonamide AdvReac Nausea & Verified 06/21/21 17:36 Antibiotics) Vomiting Review of Systems ROS Statement: Those systems with pertinent positive or pertinent negative responses have been documented in the HPI. ROS Other: All systems not noted in ROS Statement are negative. Past Medical History Past Medical History: Asthma, GERD/Reflux, Hyperlipidemia, Musculoskeletal Disorder, Neurologic Disorder, Osteoarthritis (OA), Seizure Disorder Additional Past Medical History / Comment(s): RSD-DERIC FEET, INTERSTITIAL CYSTITIS, BRONCHITIS, HEMORRHOIDS,MIGRAINES, INSOMNIA. VERTIGO, last seizure 4 years ago, complex regional pain syndrome, RLS. History of Any Multi-Drug Resistant Organisms: MRSA Date of last positivie culture/infection: 04/20/15 MDRO Source:: Left Axilla Past Surgical History: Adenoidectomy, Back Surgery, Cholecystectomy, Orthopedic Surgery, Tonsillectomy Additional Past Surgical History / Comment(s): bilateral foot surgery d/t rsd, numerous pain clinic procedures, nerve stimulator in back to tx RSD placed in Nov 11 2015, pain pump placement, Past Anesthesia/Blood Transfusion Reactions: Previous Problems w/ Anesthesia Additional Past Anesthesia/Blood Transfusion Reaction / Comment(s): Pt recieved blood when she was 2 yrs old after tonsillectomy. WHEN BABY HEART STOPPED TWICE- PT STATED SHE WAS ALLERGIC TO ETHER. Past Psychological History: Anxiety, Bipolar, Depression, PTSD Smoking Status: Never smoker Past Alcohol Use History: None Reported Past Drug Use History: Marijuana - Past Family History Father History Unknown: Yes Family Medical History: Diabetes Mellitus Mother Family Medical History: Cancer, CVA/TIA, Diabetes Mellitus, Myocardial Infarction ([place]) Additional Family Medical History / Comment(s): Mother has had 5 CVAs, 3 MIs and UTERINE CANCER General Exam General appearance: alert, in no apparent distress Head exam: Present: atraumatic, normocephalic, normal inspection Eye exam: Present: normal appearance, PERRL, EOMI. Absent: scleral icterus, conjunctival injection, periorbital swelling Respiratory exam: Present: normal lung sounds bilaterally. Absent: respiratory distress, wheezes, rales, rhonchi, stridor Cardiovascular Exam: Present: regular rate, normal rhythm, normal heart sounds. Absent: systolic murmur, diastolic murmur, rubs, gallop, clicks GI/Abdominal exam: Present: soft, normal bowel sounds. Absent: distended, tenderness, guarding, rebound, rigid Back exam: Present: normal inspection Neurological exam: Present: alert, oriented X3, CN II-XII intact Psychiatric exam: Present: normal affect, normal mood Skin exam: Present: warm, dry, intact, normal color. Absent: rash Course Vital Signs 06/21/21 17:34 Temperature 97.6 F Pulse Rate 95 Respiratory 18 Rate Blood Pressure 144/90 O2 Sat by Pulse 99 Oximetry Medical Decision Making - Medical Decision Making This is 35 year old female who presents with migraine x 2 days. Thorough hist ory and examination were performed. Patient requested Dilaudid for pain. I told the patient I was not able honor this request and offered a migraine cocktail which she was okay with. On reevaluation patient reports she is nauseous. She was given Zofran. Patient will be discharged with Zofran prescription. Return parameters discussed. Patient verbalizes understanding and is agreeable to plan. Dr. Cheney is my attending. Disposition Clinical Impression: Migraine Disposition: HOME SELF-CARE Condition: Good Instructions (If sedation given, give patient instructions): Acute Headache (ED) Additional Instructions: Please take Zofran as prescribed. You may take Tylenol as needed for pain. Follow-up with primary care provider in one to 2 days. Return to the emergency department if you experience new, concerning, or worsening symptoms. Prescriptions: Ondansetron Odt [Zofran Odt] 4 mg PO Q8HR PRN #10 tab PRN Reason: Nausea Is patient prescribed a controlled substance at d/c from ED?: No Referrals: China Doyle MD [Primary Care Provider] - 1-2 days Time of Disposition: 20:53
== END 2021-06-21 21:00 | disposition home or self-care (01) ==
LOC: EC 17:27
DX: G43.909 Migraine, unspecified, not intractable, without status migrainosus (principal); J45.909 Unspecified asthma, uncomplicated; K21.9 Gastro-esophageal reflux disease without esophagitis; G40.909 Epilepsy, unspecified, not intractable, without status epilepticus; E78.5 Hyperlipidemia, unspecified; M19.90 Unspecified osteoarthritis, unspecified site; F31.9 Bipolar disorder, unspecified; F41.9 Anxiety disorder, unspecified; F12.90 Cannabis use, unspecified, uncomplicated; Z79.51 Long term (current) use of inhaled steroids; Z79.899 Other long term (current) drug therapy
CPT/HCPCS: 99283; 96374; 96375 ×3; 96361; J1200; J1100; J2765; J2405

== ENCOUNTER 2021-06-24 20:32 | Emergency (ER) | payer MEDICARE, OTHER ==
[2021-06-24 20:37] VITALS: BP 146/96; PULSE 105; RESP 22; TEMP 98.2
[2021-06-24] MEDS ORDERED: ONDANSETRON 4 MG/2 ML VIAL IVP STA (21:15)
[2021-06-24] MEDS ORDERED: SODIUM CHLORIDE 0.9% 1,000 ML IV STA (21:15)
[2021-06-24] MEDS ORDERED: DEXAMETHASONE SOD PHOSPHATE 10 MG/ML 1 ML VIAL IV STA (21:15)
[2021-06-24] MEDS ORDERED: KETOROLAC 15 MG/ML 1 ML VIAL IVP STA (21:20)
[2021-06-24] MEDS ORDERED: diphenhydrAMINE 50 MG/ML 1 ML VIAL IVP STA (21:20)
--- NOTE | 2021-06-24 22:08 | ED ---
General Adult HPI - General Chief complaint: Nausea/Vomiting/Diarrhea Stated complaint: Vomiting, Migraine Time Seen by Provider: 06/24/21 20:40 Source: patient, family Mode of arrival: wheelchair Limitations: no limitations - History of Present Illness Initial comments: Patient is a 35-year-old female presenting with chief complaint of headache. She experiences migraine headaches 2-3 times a month, she was seen in the ER 4 days ago for the same complaint. She was given a migraine cocktail and Lorenfran instructed to follow-up with her neurologist. Patient states that the headache has not improved since her visit. It is located in the frontal region radiation across the top of the head to the neck. She admits to light and sound sensitivity. She admits to nausea and vomiting. She has been taking fears that Benadryl and Motrin at home which have not improved her symptoms. Patient denies chest pain, shortness of breath, fever, chills, vision or hearing changes, diarrhea, abdominal pain, hematemesis. - Related Data Home Medications Medication Instructions Recorded Confirmed Medroxyprogesterone Acetate 150 mg IM Q84D 11/22/13 10/07/20 [Depo-Provera] rOPINIRole HCL [Requip] 1 mg PO BID@0900,1200 11/22/13 10/07/20 Pentosan Polysulfate Sodium 100 mg PO DAILY 02/10/15 10/07/20 [Elmiron] HYDROcodone/APAP 7.5-325MG [[place] 1 tab PO BID 07/20/16 10/07/20 7.5-325] Paliperidone IM Pt Own [Invega 117 mg IM Q28D 07/20/16 10/07/20 Sustenna] amantadine HCL [Symmetrel] 100 mg PO BID 11/21/16 10/07/20 Albuterol Sulfate [Proair Hfa] 2 puff INHALATION RT-QID PRN 01/13/18 10/07/20 Butalb/Acetaminophen/Caffeine 1 tab PO Q8H PRN 01/13/18 10/07/20 [Fioricet 50-325-40] Fluticasone Propionate [Flovent 1 puff INHALATION RT-BID 01/13/18 10/07/20 Hfa 110 mcg] Gemfibrozil [Lopid] 600 mg PO BID 01/13/18 10/07/20 Gabapentin [Neurontin] 300 mg PO TID 03/11/18 10/07/20 Gabapentin [Neurontin] 600 mg PO TID 09/16/19 10/07/20 Omeprazole [PriLOSEC] 40 mg PO DAILY 09/16/19 10/07/20 rOPINIRole HCL [Requip] 2 mg PO HS 09/16/19 10/07/20 traZODone HCL 300 mg PO HS 09/16/19 10/07/20 hydrOXYzine pamoate [hydrOXYzine 25 mg PO BID 04/13/20 10/07/20 PAMOATE] Cyclobenzaprine [Flexeril] 10 mg PO TID PRN 08/16/20 10/07/20 Fentanyl/Bupivcaine Pain Pump 1 dose INTRATHECA CONTINUOUS 08/16/20 10/07/20 Ibuprofen [Motrin] 600 mg PO TID PRN 10/07/20 10/07/20 diphenhydrAMINE [Benadryl] 50 mg PO DAILY PRN 10/07/20 10/07/20 Previous Rx's Medication Instructions Recorded Erythromycin Ophth Oint [Romycin 1 applic RIGHT EYE QID #1 bottle 10/03/20 Ophth Oint] Ondansetron Odt [Zofran Odt] 4 mg PO Q8HR PRN #14 tab 10/16/20 Ondansetron Odt [Zofran Odt] 4 mg PO Q8HR PRN #10 tab 06/21/21 Allergies Allergy/AdvReac Type Severity Reaction Status Date / Time azithromycin Allergy Rash/Hives Verified 06/24/21 20:36 [From Zithromax Z-Mehrdad] cimetidine [From Tagamet] Allergy Rash/Hives Verified 06/24/21 20:36 ether [Ether] Allergy Anaphylaxis Verified 06/24/21 20:36 Fish Containing Products Allergy Anaphylaxis Verified 06/24/21 20:36 [Fish] ibuprofen [From Motrin] Allergy Rash/Hives Verified 06/24/21 20:36 ketorolac tromethamine Allergy Rash/Hives Verified 06/24/21 20:36 [From Toradol] morphine Allergy Unknown Verified 06/24/21 20:36 ziprasidone HCl [From Geodon] Allergy Extrapyramidal Verified 06/24/21 20:36 Symptoms fluphenazine HCl AdvReac Extrapyramidal Verified 06/24/21 20:36 [From Prolixin] Symptoms haloperidol [From Haldol] AdvReac Extrapyramidal Verified 06/24/21 20:36 Symptoms Sulfa (Sulfonamide AdvReac Nausea & Verified 06/24/21 20:36 Antibiotics) Vomiting Review of Systems ROS Statement: Those systems with pertinent positive or pertinent negative responses have been documented in the HPI. ROS Other: All systems not noted in ROS Statement are negative. Past Medical History Past Medical History: Asthma, GERD/Reflux, Hyperlipidemia, Musculoskeletal Disorder, Neurologic Disorder, Osteoarthritis (OA), Seizure Disorder Additional Past Medical History / Comment(s): RSD-DERIC FEET, INTERSTITIAL CYSTITIS, BRONCHITIS, HEMORRHOIDS,MIGRAINES, INSOMNIA. VERTIGO, last seizure 4 years ago, complex regional pain syndrome, RLS. History of Any Multi-Drug Resistant Organisms: MRSA Date of last positivie culture/infection: 04/20/15 MDRO Source:: Left Axilla Past Surgical History: Adenoidectomy, Back Surgery, Cholecystectomy, Orthopedic Surgery, Tonsillectomy Additional Past Surgical History / Comment(s): bilateral foot surgery d/t rsd, numerous pain clinic procedures, nerve stimulator in back to tx RSD placed in Nov 11 2015, pain pump placement, Past Anesthesia/Blood Transfusion Reactions: Previous Problems w/ Anesthesia Additional Past Anesthesia/Blood Transfusion Reaction / Comment(s): Pt recieved blood when she was 2 yrs old after tonsillectomy. WHEN BABY HEART STOPPED TWICE- PT STATED SHE WAS ALLERGIC TO ETHER. Past Psychological History: Anxiety, Bipolar, Depression, PTSD Smoking Status: Never smoker Past Alcohol Use History: None Reported Past Drug Use History: Marijuana - Past Family History Father History Unknown: Yes Family Medical History: Diabetes Mellitus Mother Family Medical History: Cancer, CVA/TIA, Diabetes Mellitus, Myocardial Infarction ([place]) Additional Family Medical History / Comment(s): Mother has had 5 CVAs, 3 MIs and UTERINE CANCER General Exam Limitations: no limitations General appearance: alert, in distress (patient crying citing pain) Head exam: Present: atraumatic, normocephalic, normal inspection Eye exam: Present: normal appearance, PERRL, EOMI. Absent: scleral icterus, conjunctival injection, periorbital swelling Pupils: Present: normal accommodation Neck exam: Present: normal inspection. Absent: lymphadenopathy Respiratory exam: Present: normal lung sounds bilaterally. Absent: respiratory distress, wheezes, rales, rhonchi, stridor Cardiovascular Exam: Present: regular rate, normal rhythm, normal heart sounds. Absent: systolic murmur, diastolic murmur, rubs, gallop, clicks Neurological exam: Present: alert, oriented X3, CN II-XII intact Expanded Patient oriented to: Present: person, place Speech: Present: fluid speech Cranial nerves: EOM's Intact: Normal Eye Response: (4) open spontaneously Motor Response: (6) obeys commands Verbal Response: (5) oriented Quintin Total: 15 Psychiatric exam: Present: normal affect, normal mood Skin exam: Present: warm, dry, intact, normal color. Absent: rash Course Vital Signs 06/24/21 20:33 Temperature 98.2 F Pulse Rate 105 H Respiratory 22 Rate Blood Pressure 146/96 O2 Sat by Pulse 100 Oximetry Medical Decision Making - Medical Decision Making Patient is a 35-year-old female presenting with chief complaint of migraine. Patient states that she has had this migraine for 8 days now. She states that this pain is consistent with her usual migraines. She has been taking Fioricet, Motrin, Benadryl at home without relief. She admits to light and sound sensitivity, nausea, vomiting. On exam there are no focal neurological deficits. Patient was given 1 liter normal saline, Benadryl, Toradol, and decadron. Patient is now resting at reevaluation showing improvement from initial presentation when she was in position and vomiting. She showing visible improvement. Patient is expected to continue to show gradual improvement. I instructed her to follow up with neurology. Patient states that she has a neurologist appointment on July 05. Report back to ER with any worsening symptoms. I educated the patient on return parameters and alarm signs. Answered all questions. Patient conveyed verbal understanding and agreed to the plan. My attending is Dr. Stubbs. Disposition Clinical Impression: Migraine Disposition: HOME SELF-CARE Condition: Good Instructions (If sedation given, give patient instructions): Migraine Headache (ED) Additional Instructions: Follow-up with neurology at scheduled appointment. Follow-up with PCP in one to 2 days. Continue taking Fioricet, Benadryl, Motrin, Zofran, Flexeril at home as needed (per package instructions). Report back to ER with any worsening symptoms. Is patient prescribed a controlled substance at d/c from ED?: No Referrals: China Doyle MD [Primary Care Provider] - 1-2 days Time of Disposition: 22:09
== END 2021-06-24 22:33 | disposition home or self-care (01) ==
LOC: EC 20:32
DX: G43.909 Migraine, unspecified, not intractable, without status migrainosus (principal); J45.909 Unspecified asthma, uncomplicated; K21.9 Gastro-esophageal reflux disease without esophagitis; E78.5 Hyperlipidemia, unspecified; M19.90 Unspecified osteoarthritis, unspecified site; F41.9 Anxiety disorder, unspecified; F31.9 Bipolar disorder, unspecified; F43.10 Post-traumatic stress disorder, unspecified; F12.90 Cannabis use, unspecified, uncomplicated; Z88.1 Allergy status to other antibiotic agents; Z88.2 Allergy status to sulfonamides; Z88.5 Allergy status to narcotic agent; Z88.6 Allergy status to analgesic agent; Z90.49 Acquired absence of other specified parts of digestive tract
CPT/HCPCS: 99283; 96374; 96375 ×3; 96361; J1200; J1100; J2405; J1885

== ENCOUNTER 2021-07-29 05:34 | Emergency (ER) | payer MEDICARE, OTHER ==
[2021-07-29 05:44] VITALS: TEMP 98
[2021-07-29] MEDS ORDERED: HYDROmorphone 1 MG/ML 1 ML SYRINGE IM STA (07:19)
--- NOTE | 2021-07-29 07:32 | ED ---
General Adult HPI - General Chief complaint: Back Pain/Injury Stated complaint: Post-op back pain Time Seen by Provider: 07/29/21 07:06 Source: patient Mode of arrival: wheelchair Limitations: no limitations - History of Present Illness Initial comments: Dictation was produced using [employer] dictation software. please excuse any grammatical, word or spelling errors. Chief Complaint: 35-year-old female well-known to emergency department for chronic back pain presents to the ER for acute back pain History of Present Illness: Is a 35-year-old female she has past medical history of chronic back pain. She sees a pain specialist. Patient states that several weeks ago she fell and cause damage to her implanted TENS unit. She follows up with Dr. Shannno. Patient yesterday had TENS unit repair done at a outpatient surgery center in [place]. Since the procedure she's been having severe back pain. States the pain radiates down her right lower extremity. She complains of numbness to the right lateral thigh and right lateral calf. Patient states the pain is severe. She called Dr. Shannon who told her to come to the emergency room. Patient describes that she fractured the leads several weeks ago when she fell. She states that Dr. Shannon remove the TENS unit and replaced the leads. The ROS documented in this emergency department record has been reviewed and confirmed by me. Those systems with pertinent positive or negative responses have been documented in the HPI. All other systems are other negative and/or noncontributory. PHYSICAL EXAM: General Impression: Alert and oriented x3, acute distress secondary to pain HEENT: Normocephalic atraumatic, extra-ocular movements intact, pupils equal and reactive to light bilaterally, mucous membranes moist. Cardiovascular: Heart regular rate and rhythm Chest: Able to complete full sentences, no retractions, no tachypnea Abdomen: abdomen soft, non-tender, non-distended, no organomegaly Musculoskeletal: Pulses present and equal in all extremities, no peripheral edema Motor: no focal deficits noted Neurological: CN II-XII grossly intact, no motor deficits noted, there does appear to be decreased sensation to light touch on the right lateral thigh and right lateral knee area. Skin: Intact with no visualized rashes, back dressings appear to be clean dry and intact Psych: Normal affect and mood ED course: 35-year-old female presents to the emergency department for postoperative back pain. Patient had a procedure yesterday outpatient surgery center. Vital signs upon arrival are within acceptable limits. Patient given IM analgesics. This patient's postoperative day one is concern of postoperative issue. CT of the lumbar spine was ordered showing no acute emergent issues. Patient was observed in the emergency department for approximately 4 hours. Reevaluate bedside at 9:30 AM R been stable medical condition. Patient is strongly advised to follow-up with Dr. Shannon. - Related Data Home Medications Medication Instructions Recorded Confirmed Medroxyprogesterone Acetate 150 mg IM Q84D 11/22/13 10/07/20 [Depo-Provera] rOPINIRole HCL [Requip] 1 mg PO BID@0900,1200 11/22/13 10/07/20 Pentosan Polysulfate Sodium 100 mg PO DAILY 02/10/15 10/07/20 [Elmiron] HYDROcodone/APAP 7.5-325MG [[place] 1 tab PO BID 07/20/16 10/07/20 7.5-325] Paliperidone IM Pt Own [Invega 117 mg IM Q28D 07/20/16 10/07/20 Sustenna] amantadine HCL [Symmetrel] 100 mg PO BID 11/21/16 10/07/20 Albuterol Sulfate [Proair Hfa] 2 puff INHALATION RT-QID PRN 01/13/18 10/07/20 Butalb/Acetaminophen/Caffeine 1 tab PO Q8H PRN 01/13/18 10/07/20 [Fioricet 50-325-40] Fluticasone Propionate [Flovent 1 puff INHALATION RT-BID 01/13/18 10/07/20 Hfa 110 mcg] Gemfibrozil [Lopid] 600 mg PO BID 01/13/18 10/07/20 Gabapentin [Neurontin] 300 mg PO TID 03/11/18 10/07/20 Gabapentin [Neurontin] 600 mg PO TID 09/16/19 10/07/20 Omeprazole [PriLOSEC] 40 mg PO DAILY 09/16/19 10/07/20 rOPINIRole HCL [Requip] 2 mg PO HS 09/16/19 10/07/20 traZODone HCL 300 mg PO HS 09/16/19 10/07/20 hydrOXYzine pamoate [hydrOXYzine 25 mg PO BID 04/13/20 10/07/20 PAMOATE] Cyclobenzaprine [Flexeril] 10 mg PO TID PRN 08/16/20 10/07/20 Fentanyl/Bupivcaine Pain Pump 1 dose INTRATHECA CONTINUOUS 08/16/20 10/07/20 Ibuprofen [Motrin] 600 mg PO TID PRN 10/07/20 10/07/20 diphenhydrAMINE [Benadryl] 50 mg PO DAILY PRN 10/07/20 10/07/20 Previous Rx's Medication Instructions Recorded Erythromycin Ophth Oint [Romycin 1 applic RIGHT EYE QID #1 bottle 10/03/20 Ophth Oint] Ondansetron Odt [Zofran Odt] 4 mg PO Q8HR PRN #14 tab 10/16/20 Ondansetron Odt [Zofran Odt] 4 mg PO Q8HR PRN #10 tab 06/21/21 Allergies Allergy/AdvReac Type Severity Reaction Status Date / Time azithromycin Allergy Rash/Hives Verified 07/29/21 05:42 [From Zithromax Z-Mehrdad] cimetidine [From Tagamet] Allergy Rash/Hives Verified 07/29/21 05:42 ether [Ether] Allergy Anaphylaxis Verified 07/29/21 05:42 Fish Containing Products Allergy Anaphylaxis Verified 07/29/21 05:42 [Fish] ibuprofen [From Motrin] Allergy Rash/Hives Verified 07/29/21 05:42 ketorolac tromethamine Allergy Rash/Hives Verified 07/29/21 05:42 [From Toradol] morphine Allergy Unknown Verified 07/29/21 05:42 ziprasidone HCl [From Geodon] Allergy Extrapyramidal Verified 07/29/21 05:42 Symptoms fluphenazine HCl AdvReac Extrapyramidal Verified 07/29/21 05:42 [From Prolixin] Symptoms haloperidol [From Haldol] AdvReac Extrapyramidal Verified 07/29/21 05:42 Symptoms Sulfa (Sulfonamide AdvReac Nausea & Verified 07/29/21 05:42 Antibiotics) Vomiting Review of Systems ROS Statement: Those systems with pertinent positive or pertinent negative responses have been documented in the HPI. ROS Other: All systems not noted in ROS Statement are negative. Past Medical History Past Medical History: Asthma, GERD/Reflux, Hyperlipidemia, Musculoskeletal Disorder, Neurologic Disorder, Osteoarthritis (OA), Seizure Disorder Additional Past Medical History / Comment(s): RSD-DERIC FEET, INTERSTITIAL CYSTITIS, BRONCHITIS, HEMORRHOIDS,MIGRAINES, INSOMNIA. VERTIGO, last seizure 4 years ago, complex regional pain syndrome, RLS. History of Any Multi-Drug Resistant Organisms: MRSA Date of last positivie culture/infection: 04/20/15 MDRO Source:: Left Axilla Past Surgical History: Adenoidectomy, Back Surgery, Cholecystectomy, Orthopedic Surgery, Tonsillectomy Additional Past Surgical History / Comment(s): bilateral foot surgery d/t rsd, numerous pain clinic procedures, nerve stimulator in back to tx RSD placed in Nov 11 2015, pain pump placement, Past Anesthesia/Blood Transfusion Reactions: Previous Problems w/ Anesthesia Additional Past Anesthesia/Blood Transfusion Reaction / Comment(s): Pt recieved blood when she was 2 yrs old after tonsillectomy. WHEN BABY HEART STOPPED TWICE- PT STATED SHE WAS ALLERGIC TO ETHER. Past Psychological History: Anxiety, Bipolar, Depression, PTSD Smoking Status: Never smoker Past Alcohol Use History: None Reported Past Drug Use History: Marijuana - Past Family History Father History Unknown: Yes Family Medical History: Diabetes Mellitus Mother Family Medical History: Cancer, CVA/TIA, Diabetes Mellitus, Myocardial Infarction ([place]) Additional Family Medical History / Comment(s): Mother has had 5 CVAs, 3 MIs and UTERINE CANCER General Exam Limitations: no limitations Course Vital Signs 07/29/21 05:42 Temperature 98.0 F Pulse Rate 111 H Respiratory 16 Rate Blood Pressure 140/87 O2 Sat by Pulse 99 Oximetry Disposition Clinical Impression: Post-operative pain Disposition: HOME SELF-CARE Condition: Good Instructions (If sedation given, give patient instructions): Back Pain (ED) Is patient prescribed a controlled substance at d/c from ED?: No Referrals: China Doyle MD [Primary Care Provider] - 1-2 days
--- NOTE | 2021-07-29 09:16 | CT ---
EXAMINATION TYPE: CT lumbar spine wo con DATE OF EXAM: 07/29/2021 COMPARISON: 06/08/2021 HISTORY: post op back pain CT DLP: 939.6 mGycm CONTRAST: None TECHNIQUE: CT of the lumbar spine is performed on a spiral scan at 3 mm thick sections. Reconstructed images are performed in the coronal and sagittal planes. FINDINGS: Stimulator leads cause beam hardening artifact within the lower thoracic region. Multiple wires exten ding to the lower lumbar spine. Vertebral body alignment is normal. Disc heights appear preserved. Vertebral body heights are preserv ed. There is some mild disc bulging L4-5 with anterior thecal sac flattening. No AP spinal canal stenosis is evident. No suspicious soft tissue abnormalities. Retraction devices are within the subcutaneous tissues poste riorly. IMPRESSION: Mild disc bulge at L4-5 with anterior thecal sac flattening. No stenosis present. 2. Multiple stimulator leads present throughout the thoracic and lumbar spine causing some artifact d uring the exam
[2021-07-29] MEDS ORDERED: diphenhydrAMINE 50 MG/ML 1 ML VIAL IM STA (09:44)
[2021-07-29] MEDS ORDERED: KETOROLAC 15 MG/ML 1 ML VIAL IM STA (09:44)
[2021-07-29 10:01] VITALS: BP 138/86; PULSE 97; RESP 18
== END 2021-07-29 10:00 | disposition home or self-care (01) ==
LOC: EC 05:34
DX: G89.18 Other acute postprocedural pain (principal); M54.50 Low back pain, unspecified; J45.909 Unspecified asthma, uncomplicated; E78.5 Hyperlipidemia, unspecified; F31.9 Bipolar disorder, unspecified; F41.9 Anxiety disorder, unspecified; G40.909 Epilepsy, unspecified, not intractable, without status epilepticus; K21.9 Gastro-esophageal reflux disease without esophagitis; M19.90 Unspecified osteoarthritis, unspecified site; F12.90 Cannabis use, unspecified, uncomplicated; Z79.51 Long term (current) use of inhaled steroids; Z79.899 Other long term (current) drug therapy
CPT/HCPCS: 72131; 99284; 96372 ×3; J1200; J1170; J1885

== ENCOUNTER 2021-07-30 00:26 | Emergency (ER) | payer MEDICARE, OTHER ==
[2021-07-30 00:40] VITALS: TEMP 98.6
[2021-07-30] MEDS ORDERED: HYDROmorphone 1 MG/ML 1 ML SYRINGE IM STA (01:52)
[2021-07-30] MEDS ORDERED: ORPHENADRINE 30 MG/ML 2 ML VIAL IM STA (01:52)
--- NOTE | 2021-07-30 02:22 | XR ---
EXAMINATION TYPE: XR lumbar spine 2 or 3V DATE OF EXAM: 07/30/2021 COMPARISON: NONE HISTORY: Back pain TECHNIQUE: 3 views FINDINGS: Lumbar vertebrae are normal alignment. There is no compression fracture. Disc spaces are fa irly normal. There is neural stimulator in the lower thoracic spine. There is neural stimulator also in the lower lumbar spine. Sacroiliac joints are intact IMPRESSION: No acute abnormality of the lumbar spine. No fracture.
--- NOTE | 2021-07-30 02:29 | ED ---
Back Pain HPI - General Chief Complaint: Back Pain/Injury Stated Complaint: complications from surgery Time Seen by Provider: 07/30/21 01:16 Source: patient, RN notes reviewed - History of Present Illness Initial Comments: This is a 35-year-old female who is a frequent visitor to our emergency department. Patient had a nerve stimulator placed in her back on Saturday by Dr. Shannon. Patient states that since then she's had increased pain from the procedure itself. States she is getting some pain radiating into the right leg. Patient states she actually fell through the pain and injured her back more. Patient denies any fever or chills. Denies any problems with balance urination. No abdominal pain. No chest pain or shortness of breath. Patient's did strike her head but did not Knocked out. Not on blood thinners. Neck pain. No chance of . No vision or hearing disturbance. MD Complaint: back pain - Related Data Home Medications Medication Instructions Recorded Confirmed Medroxyprogesterone Acetate 150 mg IM Q84D 11/22/13 10/07/20 [Depo-Provera] rOPINIRole HCL [Requip] 1 mg PO BID@0900,1200 11/22/13 10/07/20 Pentosan Polysulfate Sodium 100 mg PO DAILY 02/10/15 10/07/20 [Elmiron] HYDROcodone/APAP 7.5-325MG [[place] 1 tab PO BID 07/20/16 10/07/20 7.5-325] Paliperidone IM Pt Own [Invega 117 mg IM Q28D 07/20/16 10/07/20 Sustenna] amantadine HCL [Symmetrel] 100 mg PO BID 11/21/16 10/07/20 Albuterol Sulfate [Proair Hfa] 2 puff INHALATION RT-QID PRN 01/13/18 10/07/20 Butalb/Acetaminophen/Caffeine 1 tab PO Q8H PRN 01/13/18 10/07/20 [Fioricet 50-325-40] Fluticasone Propionate [Flovent 1 puff INHALATION RT-BID 01/13/18 10/07/20 Hfa 110 mcg] Gemfibrozil [Lopid] 600 mg PO BID 01/13/18 10/07/20 Gabapentin [Neurontin] 300 mg PO TID 03/11/18 10/07/20 Gabapentin [Neurontin] 600 mg PO TID 09/16/19 10/07/20 Omeprazole [PriLOSEC] 40 mg PO DAILY 09/16/19 10/07/20 rOPINIRole HCL [Requip] 2 mg PO HS 09/16/19 10/07/20 traZODone HCL 300 mg PO HS 09/16/19 10/07/20 hydrOXYzine pamoate [hydrOXYzine 25 mg PO BID 04/13/20 10/07/20 PAMOATE] Cyclobenzaprine [Flexeril] 10 mg PO TID PRN 08/16/20 10/07/20 Fentanyl/Bupivcaine Pain Pump 1 dose INTRATHECA CONTINUOUS 08/16/20 10/07/20 Ibuprofen [Motrin] 600 mg PO TID PRN 10/07/20 10/07/20 diphenhydrAMINE [Benadryl] 50 mg PO DAILY PRN 10/07/20 10/07/20 Previous Rx's Medication Instructions Recorded Erythromycin Ophth Oint [Romycin 1 applic RIGHT EYE QID #1 bottle 10/03/20 Ophth Oint] Ondansetron Odt [Zofran Odt] 4 mg PO Q8HR PRN #14 tab 10/16/20 Ondansetron Odt [Zofran Odt] 4 mg PO Q8HR PRN #10 tab 06/21/21 Allergies Allergy/AdvReac Type Severity Reaction Status Date / Time azithromycin Allergy Rash/Hives Verified 07/30/21 00:40 [From Zithromax Z-Mehrdad] cimetidine [From Tagamet] Allergy Rash/Hives Verified 07/30/21 00:40 ether [Ether] Allergy Anaphylaxis Verified 07/30/21 00:40 Fish Containing Products Allergy Anaphylaxis Verified 07/30/21 00:40 [Fish] ibuprofen [From Motrin] Allergy Rash/Hives Verified 07/30/21 00:40 ketorolac tromethamine Allergy Rash/Hives Verified 07/30/21 00:40 [From Toradol] morphine Allergy Unknown Verified 07/30/21 00:40 ziprasidone HCl [From Geodon] Allergy Extrapyramidal Verified 07/30/21 00:40 Symptoms fluphenazine HCl AdvReac Extrapyramidal Verified 07/30/21 00:40 [From Prolixin] Symptoms haloperidol [From Haldol] AdvReac Extrapyramidal Verified 07/30/21 00:40 Symptoms Sulfa (Sulfonamide AdvReac Nausea & Verified 07/30/21 00:40 Antibiotics) Vomiting Review of Systems ROS Statement: Those systems with pertinent positive or pertinent negative responses have been documented in the HPI. ROS Other: All systems not noted in ROS Statement are negative. Past Medical History Past Medical History: Asthma, GERD/Reflux, Hyperlipidemia, Musculoskeletal Disorder, Neurologic Disorder, Osteoarthritis (OA), Seizure Disorder Additional Past Medical History / Comment(s): RSD-DERIC FEET, INTERSTITIAL CYSTITIS, BRONCHITIS, HEMORRHOIDS,MIGRAINES, INSOMNIA. VERTIGO, last seizure 4 years ago, complex regional pain syndrome, RLS. History of Any Multi-Drug Resistant Organisms: MRSA Date of last positivie culture/infection: 04/20/15 MDRO Source:: Left Axilla Past Surgical History: Adenoidectomy, Back Surgery, Cholecystectomy, Orthopedic Surgery, Tonsillectomy Additional Past Surgical History / Comment(s): bilateral foot surgery d/t rsd, numerous pain clinic procedures, nerve stimulator in back to tx RSD placed in Nov 11 2015, pain pump placement, replacement of stimulator 06/2021 Past Anesthesia/Blood Transfusion Reactions: Previous Problems w/ Anesthesia Additional Past Anesthesia/Blood Transfusion Reaction / Comment(s): Pt recieved blood when she was 2 yrs old after tonsillectomy. WHEN BABY HEART STOPPED TWICE- PT STATED SHE WAS ALLERGIC TO ETHER. Past Psychological History: Anxiety, Bipolar, Depression, PTSD Smoking Status: Never smoker Past Alcohol Use History: None Reported Past Drug Use History: Marijuana - Past Family History Father History Unknown: Yes Family Medical History: Diabetes Mellitus Mother Family Medical History: Cancer, CVA/TIA, Diabetes Mellitus, Myocardial Infarction ([place]) Additional Family Medical History / Comment(s): Mother has had 5 CVAs, 3 MIs and UTERINE CANCER General Exam General appearance: alert, in no apparent distress, in distress Head exam: Present: atraumatic, normocephalic, normal inspection Eye exam: Present: normal appearance, PERRL, EOMI. Absent: scleral icterus, conjunctival injection, periorbital swelling ENT exam: Present: normal exam, normal oropharynx, mucous membranes dry, mucous membranes moist, TM's normal bilaterally, normal external ear exam Neck exam: Present: normal inspection, full ROM. Absent: tenderness, meningismus, lymphadenopathy Respiratory exam: Present: normal lung sounds bilaterally. Absent: respiratory distress, wheezes, rales, rhonchi, stridor, chest wall tenderness, accessory muscle use Cardiovascular Exam: Present: regular rate, normal rhythm, normal heart sounds. Absent: systolic murmur, diastolic murmur, rubs, gallop, clicks GI/Abdominal exam: Present: soft, normal bowel sounds. Absent: distended, tenderness, guarding, rebound, rigid Extremities exam: Present: normal inspection, full ROM, normal capillary refill. Absent: tenderness, pedal edema, joint swelling, calf tenderness Back exam: Present: tenderness, paraspinal tenderness, other (Surgical site noted from neurostimulator. No evidence of infectious process. No erythema. Incisions are healing well. No midline tenderness. Straight leg raise neg ative.). Absent: CVA tenderness (R), CVA tenderness (L), muscle spasm, vertebral tenderness, rash noted Neurological exam: Present: alert, oriented X3, CN II-XII intact Psychiatric exam: Present: normal affect, normal mood Skin exam: Present: warm, dry, intact, normal color. Absent: rash, cyanosis, diaphoretic, erythema, urticaria, vesicles, petechiae, pallor, mottled, abrasion Course Vital Signs 07/30/21 00:36 Temperature 98.6 F Pulse Rate 93 Respiratory 19 Rate Blood Pressure 126/90 O2 Sat by Pulse 98 Oximetry Medical Decision Making - Medical Decision Making Patient has no evidence of cauda equina syndrome. Is able to ambulate. Has full strength with regards to both lower extremities. Sensation intact. Patient's presentation consistent with acute exacerbation of chronic pain. Patient did have a procedure but has no evidence of cauda equina syndrome. Able to ambulate. Patient asking for a shot of Toradol stating that she really is not ALLERGIC to the medication. Patient states that she has had before and tolerated it well. I did have a long discussion with the patient stating that she needs to call her pain management physician tomorrow morning to discuss pain management options. Patient agrees with this. All questions answered. The case was discussed in detail with ED attending physician. Presentation, findings, treatment plan discussed in detail. Supervising physician is Dr. Underwood Disposition Clinical Impression: Mechanical back pain, Postoperative pain Disposition: HOME SELF-CARE Condition: Good Instructions (If sedation given, give patient instructions): Chronic Back Pain (DC) Additional Instructions: Follow-up with your regular physician as directed. Return to the ER immediately if any symptoms worsen, new symptoms arise, or any other problems develop. Call your pain management physician tomorrow morning to discuss pain management options. Is patient prescribed a controlled substance at d/c from ED?: No Referrals: China Doyle MD [Primary Care Provider] - 1-2 days
[2021-07-30] MEDS ORDERED: KETOROLAC 15 MG/ML 1 ML VIAL IM STA (03:34)
[2021-07-30] MEDS ORDERED: diphenhydrAMINE 50 MG/ML 1 ML VIAL IM STA (03:34)
[2021-07-30 04:14] VITALS: BP 127/84; PULSE 88; RESP 18
== END 2021-07-30 04:14 | disposition home or self-care (01) ==
LOC: EC 00:26
DX: G89.18 Other acute postprocedural pain (principal); M54.9 Dorsalgia, unspecified; J45.909 Unspecified asthma, uncomplicated; K21.9 Gastro-esophageal reflux disease without esophagitis; Z79.899 Other long term (current) drug therapy; Z88.1 Allergy status to other antibiotic agents; Z88.8 Allergy status to other drugs, medicaments and biological substances; Z91.013 Allergy to seafood; Z88.6 Allergy status to analgesic agent; Z88.5 Allergy status to narcotic agent; Z88.2 Allergy status to sulfonamides; Z88.7 Allergy status to serum and vaccine
CPT/HCPCS: 72100; 99283; 96372; J1200; J2360; J1170; J1885

== ENCOUNTER 2021-08-02 16:40 | Emergency (ER) | payer MEDICARE, OTHER ==
[2021-08-02 17:05] VITALS: TEMP 97.9
[2021-08-02] MEDS ORDERED: HYDROmorphone 1 MG/ML 1 ML SYRINGE IM STA (18:27)
[2021-08-02] MEDS ORDERED: ORPHENADRINE 30 MG/ML 2 ML VIAL IM STA (18:27)
[2021-08-02] MEDS ORDERED: PROCHLORPERAZINE INJ 10 MG/2 ML VIAL IM STA (18:28)
--- NOTE | 2021-08-02 18:32 | ED ---
Back Pain HPI - General Chief Complaint: Back Pain/Injury Stated Complaint: revisit - back pain Time Seen by Provider: 08/02/21 18:19 Source: patient, RN notes reviewed Limitations: no limitations - History of Present Illness Initial Comments: This is a 35-year-old female with history of chronic back pain. She presents for emergency department stating that she has been having increased pain since having placement of a nerve stimulator by her neurologist, Dr. Shannon. Patient was seen here on July 30 as well. Patient states that she had a fall and landed on the area of the stimulator. Patient states the pain is sharp, exacerbated by movement and palpation. It radiates into the right leg. She denies any problems with bowel movements or urination. No headache, no fever or chills, no changes in vision or hearing, no sore throat or difficulty with speech, no neck pain, no chest pain or shortness of breath, no abdominal pain, no nausea or vomiting, no changes in urination or bowel movements, no numbness or tingling, no skin rashes or lesions. MD Complaint: back pain, back injury, fall - Related Data Home Medications Medication Instructions Recorded Confirmed Medroxyprogesterone Acetate 150 mg IM Q84D 11/22/13 10/07/20 [Depo-Provera] rOPINIRole HCL [Requip] 1 mg PO BID@0900,1200 11/22/13 10/07/20 Pentosan Polysulfate Sodium 100 mg PO DAILY 02/10/15 10/07/20 [Elmiron] HYDROcodone/APAP 7.5-325MG [[place] 1 tab PO BID 07/20/16 10/07/20 7.5-325] Paliperidone IM Pt Own [Invega 117 mg IM Q28D 07/20/16 10/07/20 Sustenna] amantadine HCL [Symmetrel] 100 mg PO BID 11/21/16 10/07/20 Albuterol Sulfate [Proair Hfa] 2 puff INHALATION RT-QID PRN 01/13/18 10/07/20 Butalb/Acetaminophen/Caffeine 1 tab PO Q8H PRN 01/13/18 10/07/20 [Fioricet 50-325-40] Fluticasone Propionate [Flovent 1 puff INHALATION RT-BID 01/13/18 10/07/20 Hfa 110 mcg] Gemfibrozil [Lopid] 600 mg PO BID 01/13/18 10/07/20 Gabapentin [Neurontin] 300 mg PO TID 03/11/18 10/07/20 Gabapentin [Neurontin] 600 mg PO TID 09/16/19 10/07/20 Omeprazole [PriLOSEC] 40 mg PO DAILY 09/16/19 10/07/20 rOPINIRole HCL [Requip] 2 mg PO HS 09/16/19 10/07/20 traZODone HCL 300 mg PO HS 09/16/19 10/07/20 hydrOXYzine pamoate [hydrOXYzine 25 mg PO BID 04/13/20 10/07/20 PAMOATE] Cyclobenzaprine [Flexeril] 10 mg PO TID PRN 08/16/20 10/07/20 Fentanyl/Bupivcaine Pain Pump 1 dose INTRATHECA CONTINUOUS 08/16/20 10/07/20 Ibuprofen [Motrin] 600 mg PO TID PRN 10/07/20 10/07/20 diphenhydrAMINE [Benadryl] 50 mg PO DAILY PRN 10/07/20 10/07/20 Previous Rx's Medication Instructions Recorded Erythromycin Ophth Oint [Romycin 1 applic RIGHT EYE QID #1 bottle 10/03/20 Ophth Oint] Ondansetron Odt [Zofran Odt] 4 mg PO Q8HR PRN #14 tab 10/16/20 Ondansetron Odt [Zofran Odt] 4 mg PO Q8HR PRN #10 tab 06/21/21 Allergies Allergy/AdvReac Type Severity Reaction Status Date / Time azithromycin Allergy Rash/Hives Verified 08/02/21 17:05 [From Zithromax Z-Mehrdad] cimetidine [From Tagamet] Allergy Rash/Hives Verified 08/02/21 17:05 ether [Ether] Allergy Anaphylaxis Verified 08/02/21 17:05 Fish Containing Products Allergy Anaphylaxis Verified 08/02/21 17:05 [Fish] ibuprofen [From Motrin] Allergy Rash/Hives Verified 08/02/21 17:05 ketorolac tromethamine Allergy Rash/Hives Verified 08/02/21 17:05 [From Toradol] morphine Allergy Unknown Verified 08/02/21 17:05 ziprasidone HCl [From Geodon] Allergy Extrapyramidal Verified 08/02/21 17:05 Symptoms fluphenazine HCl AdvReac Extrapyramidal Verified 08/02/21 17:05 [From Prolixin] Symptoms haloperidol [From Haldol] AdvReac Extrapyramidal Verified 08/02/21 17:05 Symptoms Sulfa (Sulfonamide AdvReac Nausea & Verified 08/02/21 17:05 Antibiotics) Vomiting Review of Systems ROS Statement: Those systems with pertinent positive or pertinent negative responses have been documented in the HPI. ROS Other: All systems not noted in ROS Statement are negative. Past Medical History Past Medical History: Asthma, GERD/Reflux, Hyperlipidemia, Musculoskeletal Disorder, Neurologic Disorder, Osteoarthritis (OA), Seizure Disorder Additional Past Medical History / Comment(s): RSD-DERIC FEET, INTERSTITIAL CYSTITIS, BRONCHITIS, HEMORRHOIDS,MIGRAINES, INSOMNIA. VERTIGO, last seizure 4 years ago, complex regional pain syndrome, RLS. History of Any Multi-Drug Resistant Organisms: MRSA Date of last positivie culture/infection: 04/20/15 MDRO Source:: Left Axilla Past Surgical History: Adenoidectomy, Back Surgery, Cholecystectomy, Orthopedic Surgery, Tonsillectomy Additional Past Surgical History / Comment(s): bilateral foot surgery d/t rsd, numerous pain clinic procedures, nerve stimulator in back to tx RSD placed in Nov 11 2015, pain pump placement, replacement of stimulator 06/2021 Past Anesthesia/Blood Transfusion Reactions: Previous Problems w/ Anesthesia Additional Past Anesthesia/Blood Transfusion Reaction / Comment(s): Pt recieved blood when she was 2 yrs old after tonsillectomy. WHEN BABY HEART STOPPED TWICE- PT STATED SHE WAS ALLERGIC TO ETHER. Past Psychological History: Anxiety, Bipolar, Depression, PTSD Smoking Status: Never smoker Past Alcohol Use History: None Reported Past Drug Use History: Marijuana - Past Family History Father History Unknown: Yes Family Medical History: Diabetes Mellitus Mother Family Medical History: Cancer, CVA/TIA, Diabetes Mellitus, Myocardial Infarction (ID) Additional Family Medical History / Comment(s): Mother has had 5 CVAs, 3 MIs and UTERINE CANCER General Exam - General Exam Comments Initial Comments: Healthy-appearing 35-year-old female in distress due to back pain. Does not appear to be ill or toxic. Cranial nerves II through XII are grossly intact. Limitations: no limitations General appearance: alert, in distress Head exam: Present: atraumatic, normocephalic, normal inspection Eye exam: Present: normal appearance, PERRL, EOMI. Absent: scleral icterus, conjunctival injection, periorbital swelling ENT exam: Present: normal exam, mucous membranes moist Neck exam: Present: normal inspection. Absent: tenderness, meningismus, lymphadenopathy Respiratory exam: Present: normal lung sounds bilaterally. Absent: respiratory distress, wheezes, rales, rhonchi, stridor Cardiovascular Exam: Present: regular rate, normal rhythm, normal heart sounds. Absent: systolic murmur, diastolic murmur, rubs, gallop, clicks GI/Abdominal exam: Present: soft, normal bowel sounds. Absent: distended, tenderness, guarding, rebound, rigid Extremities exam: Present: normal inspection, full ROM, normal capillary refill. Absent: tenderness, pedal edema, joint swelling, calf tenderness Back exam: Present: tenderness, paraspinal tenderness, other (Well-healing s urgical incision from neurostimulator. No evidence of dehiscence or secondary infection). Absent: CVA tenderness (R), CVA tenderness (L), muscle spasm, vertebral tenderness, rash noted Expanded Back exam: Present: normal rectal tone (Chaperoned exam). Absent: saddle anesthesia, decreased rectal tone Back exam: Negative Straight Leg Raising: Left, Right Neurological exam: Present: alert, oriented X3, CN II-XII intact, normal gait (Slow and guarded but), reflexes normal. Absent: motor sensory deficit Psychiatric exam: Present: normal affect, normal mood Skin exam: Present: warm, dry, intact, normal color. Absent: rash Course Vital Signs 08/02/21 17:02 Temperature 97.9 F Pulse Rate 96 Respiratory 16 Rate Blood Pressure 155/79 O2 Sat by Pulse 98 Oximetry - Reevaluation(s) Reevaluation #1: 08/02/21 19:33 Medical record is reviewed Symptoms are essentially unchanged, however the patient has chronic pain and has been on narcotic pain medicines for 10 years. I do not expect we will get the patient out of pain. Patient is otherwise hemodynamically stable. Patient is informed of results and questions answered Patient in no distress as I enter the room, becomes tearful during my discussion about pain management and pain medications. Medical Decision Making - Medical Decision Making I'm going to obtain a lumbar CT as the patient states she fell onto the area of the nerve stimulator and has increased pain. Patient has no evidence of saddle anesthesia. No evidence of cauda equina syndrome. Other red flags are negative. Patient will be dispositioned back to her pain management physician. Patient told to call Dr. Shannon in the morning. I discussed chronic pain, narcotic tolerance, and other treatment plans to include conservative therapy with the patient. Computed tomography scan did not show any interval change from the previous study. Vital signs are stable, patient afebrile. Patient was told to return to the ER for any signs or symptoms worsen. Told to return immediately if any other problems arise. All questions answered. Treatment plan discussed. Patient in agreement Every effort has been made to ensure accuracy of this dictation. However, due to the limitations of electronic medical records and dictation devices, errors i n charting still occur. Supervising physicians Dr. Maddox Disposition Clinical Impression: Acute exacerbation of chronic low back pain Disposition: HOME SELF-CARE Condition: Stable Instructions (If sedation given, give patient instructions): Chronic Back Pain (DC) Additional Instructions: Follow-up with your regular physician as directed. Return to the ER immediately if any symptoms worsen, new symptoms arise, or any other problems develop. Is patient prescribed a controlled substance at d/c from ED?: No Referrals: China Doyle MD [Primary Care Provider] - 1-2 days Casper Shannon MD [Medical Doctor] - 08/03/21 8:00 am Time of Disposition: 19:36
--- NOTE | 2021-08-02 19:19 | CT ---
EXAMINATION TYPE: CT lumbar spine wo con DATE OF EXAM: 08/02/2021 COMPARISON: 07/29/2021 HISTORY: back pain post op CT DLP: 934.4 mGycm CONTRAST: None TECHNIQUE: CT of the lumbar spine is performed on a spiral scan at 3 mm thick sections. Reconstructed images are performed in the coronal and sagittal planes. FINDINGS: Stimulator is at T10-11, stable in position from comparison. Wires appear intact stimulator leads extend into the L4-L5 foramen. Vertebral body heights are preserved. Disc heights are preserved. Some mild endplate changes are note d superior endplate of L3 and at the L1 to disc level, stable from comparison. No spinal canal stenos is is present. Neural foramen appear patent. No suspicious collection is evident suggest abscess formation within the subcutaneous tissue. There i s some limitation due to beam hardening artifact from electronic device of the right buttocks. Findin gs appear stable from comparison. Broad-based disc bulge at L5-S1 and L4-5 are again evident and appears stable. IMPRESSION: No interval change from recent comparison. 2. Broad-based disc bulge at L4-5 and L5-S1 with mild anterior thecal sac flattening. No stenosis is present. 3. Electronic stimulator leads appears stable in position.
[2021-08-02] MEDS ORDERED: HYDROcodone/APAP 5-325MG 1 EACH TAB PO STA (20:13)
[2021-08-02 20:25] VITALS: BP 123/67; PULSE 78; RESP 18
== END 2021-08-02 20:25 | disposition home or self-care (01) ==
LOC: EC 16:40
DX: G89.29 Other chronic pain (principal); M54.9 Dorsalgia, unspecified; J45.909 Unspecified asthma, uncomplicated; K21.9 Gastro-esophageal reflux disease without esophagitis; E78.5 Hyperlipidemia, unspecified; M19.90 Unspecified osteoarthritis, unspecified site; Z88.5 Allergy status to narcotic agent; Z88.8 Allergy status to other drugs, medicaments and biological substances; Z88.2 Allergy status to sulfonamides; Z88.6 Allergy status to analgesic agent; Z88.1 Allergy status to other antibiotic agents; Z91.013 Allergy to seafood; Z79.899 Other long term (current) drug therapy; Z79.51 Long term (current) use of inhaled steroids
CPT/HCPCS: 72131; 99283; 96372; J0780; J2360; J1170

== ENCOUNTER 2021-08-28 16:57 | Emergency (ER) | payer MEDICARE, OTHER ==
[2021-08-28 20:06] VITALS: TEMP 98.3
[2021-08-28] MEDS ORDERED: diphenhydrAMINE 50 MG/ML 1 ML VIAL IM STA (22:10)
[2021-08-28] MEDS ORDERED: HYDROmorphone 1 MG/ML 1 ML SYRINGE IM STA (22:10)
[2021-08-28] MEDS ORDERED: KETOROLAC 15 MG/ML 1 ML VIAL IM STA (22:10)
--- NOTE | 2021-08-28 22:29 | ED ---
General Adult HPI - General Chief complaint: Extremity Injury, Lower Stated complaint: Leg Pain Time Seen by Provider: 08/28/21 22:09 Source: patient, RN notes reviewed Mode of arrival: ambulatory Limitations: no limitations - History of Present Illness Initial comments: This is a 35-year-old female who presents to the medicine requesting a pain shot until she can see her neurologist tomorrow. She has chronic pain and has had many visits to this emergency department. Patient denies any problems with urination or bowel movements. No specific back pain at this time. Patient does have pain in the right leg which she is describing as burning. She has seen her neurologist for this and is scheduled to have an EMG. No headache, no fever or chills, no changes in vision or hearing, no sore throat or difficulty with speech, no neck pain, no chest pain or shortness of breath, no abdominal pain, no nausea or vomiting, no changes in urination or bowel movements, no numbness or tingling,no skin rashes or lesions. - Related Data Home Medications Medication Instructions Recorded Confirmed Medroxyprogesterone Acetate 150 mg IM Q84D 11/22/13 10/07/20 [Depo-Provera] rOPINIRole HCL [Requip] 1 mg PO BID@0900,1200 11/22/13 10/07/20 Pentosan Polysulfate Sodium 100 mg PO DAILY 02/10/15 10/07/20 [Elmiron] HYDROcodone/APAP 7.5-325MG [[place] 1 tab PO BID 07/20/16 10/07/20 7.5-325] Paliperidone IM Pt Own [Invega 117 mg IM Q28D 07/20/16 10/07/20 Sustenna] amantadine HCL [Symmetrel] 100 mg PO BID 11/21/16 10/07/20 Albuterol Sulfate [Proair Hfa] 2 puff INHALATION RT-QID PRN 01/13/18 10/07/20 Butalb/Acetaminophen/Caffeine 1 tab PO Q8H PRN 01/13/18 10/07/20 [Fioricet 50-325-40] Fluticasone Propionate [Flovent 1 puff INHALATION RT-BID 01/13/18 10/07/20 Hfa 110 mcg] Gemfibrozil [Lopid] 600 mg PO BID 01/13/18 10/07/20 Gabapentin [Neurontin] 300 mg PO TID 03/11/18 10/07/20 Gabapentin [Neurontin] 600 mg PO TID 09/16/19 10/07/20 Omeprazole [PriLOSEC] 40 mg PO DAILY 09/16/19 10/07/20 rOPINIRole HCL [Requip] 2 mg PO HS 09/16/19 10/07/20 traZODone HCL 300 mg PO HS 09/16/19 10/07/20 hydrOXYzine pamoate [hydrOXYzine 25 mg PO BID 04/13/20 10/07/20 PAMOATE] Cyclobenzaprine [Flexeril] 10 mg PO TID PRN 08/16/20 10/07/20 Fentanyl/Bupivcaine Pain Pump 1 dose INTRATHECA CONTINUOUS 08/16/20 10/07/20 Ibuprofen [Motrin] 600 mg PO TID PRN 10/07/20 10/07/20 diphenhydrAMINE [Benadryl] 50 mg PO DAILY PRN 10/07/20 10/07/20 Previous Rx's Medication Instructions Recorded Erythromycin Ophth Oint [Romycin 1 applic RIGHT EYE QID #1 bottle 10/03/20 Ophth Oint] Ondansetron Odt [Zofran Odt] 4 mg PO Q8HR PRN #14 tab 10/16/20 Ondansetron Odt [Zofran Odt] 4 mg PO Q8HR PRN #10 tab 06/21/21 Allergies Allergy/AdvReac Type Severity Reaction Status Date / Time azithromycin Allergy Rash/Hives Verified 08/28/21 20:06 [From Zithromax Z-Mehrdad] cimetidine [From Tagamet] Allergy Rash/Hives Verified 08/28/21 20:06 ether [Ether] Allergy Anaphylaxis Verified 08/28/21 20:06 Fish Containing Products Allergy Anaphylaxis Verified 08/28/21 20:06 [Fish] ibuprofen [From Motrin] Allergy Rash/Hives Verified 08/28/21 20:06 ketorolac tromethamine Allergy Rash/Hives Verified 08/28/21 20:06 [From Toradol] morphine Allergy Unknown Verified 08/28/21 20:06 ziprasidone HCl [From Geodon] Allergy Extrapyramidal Verified 08/28/21 20:06 Symptoms ciprofloxacin [From Cipro] AdvReac Rash/Hives Verified 08/28/21 20:06 fluphenazine HCl AdvReac Extrapyramidal Verified 08/28/21 20:06 [From Prolixin] Symptoms haloperidol [From Haldol] AdvReac Extrapyramidal Verified 08/28/21 20:06 Symptoms Sulfa (Sulfonamide AdvReac Nausea & Verified 08/28/21 20:06 Antibiotics) Vomiting Review of Systems ROS Statement: Those systems with pertinent positive or pertinent negative responses have been documented in the HPI. ROS Other: All systems not noted in ROS Statement are negative. Past Medical History Past Medical History: Asthma, GERD/Reflux, Hyperlipidemia, Musculoskeletal Disorder, Neurologic Disorder, Osteoarthritis (OA), Seizure Disorder Additional Past Medical History / Comment(s): RSD-DERIC FEET, INTERSTITIAL CYSTITIS, BRONCHITIS, HEMORRHOIDS,MIGRAINES, INSOMNIA. VERTIGO, last seizure 4 years ago, complex regional pain syndrome, RLS. History of Any Multi-Drug Resistant Organisms: MRSA Date of last positivie culture/infection: 04/20/15 MDRO Source:: Left Axilla Past Surgical History: Adenoidectomy, Back Surgery, Cholecystectomy, Orthopedic Surgery, Tonsillectomy Additional Past Surgical History / Comment(s): bilateral foot surgery d/t rsd, numerous pain clinic procedures, nerve stimulator in back to tx RSD placed in Nov 11 2015, pain pump placement, replacement of stimulator 06/2021 Past Anesthesia/Blood Transfusion Reactions: Previous Problems w/ Anesthesia Additional Past Anesthesia/Blood Transfusion Reaction / Comment(s): Pt recieved blood when she was 2 yrs old after tonsillectomy. WHEN BABY HEART STOPPED TWICE- PT STATED SHE WAS ALLERGIC TO ETHER. Past Psychological History: Anxiety, Bipolar, Depression, PTSD Smoking Status: Never smoker Past Alcohol Use History: None Reported Past Drug Use History: Marijuana - Past Family History Father History Unknown: Yes Family Medical History: Diabetes Mellitus Mother Family Medical History: Cancer, CVA/TIA, Diabetes Mellitus, Myocardial Infarction ([place]) Additional Family Medical History / Comment(s): Mother has had 5 CVAs, 3 MIs and UTERINE CANCER General Exam - General Exam Comments Initial Comments: Patient does not appear to be in any specific distress. Does not appear to be ill or toxic. Limitations: no limitations General appearance: alert, in no apparent distress Head exam: Present: atraumatic, normocephalic, normal inspection Eye exam: Present: normal appearance, PERRL, EOMI. Absent: scleral icterus, conjunctival injection, periorbital swelling ENT exam: Present: normal exam, mucous membranes moist Neck exam: Present: normal inspection, full ROM. Absent: tenderness, meningismus, lymphadenopathy Respiratory exam: Present: normal lung sounds bilaterally. Absent: respiratory distress, wheezes, rales, rhonchi, stridor Cardiovascular Exam: Present: regular rate, normal rhythm, normal heart sounds. Absent: systolic murmur, diastolic murmur, rubs, gallop, clicks GI/Abdominal exam: Present: soft, normal bowel sounds. Absent: distended, tenderness, guarding, rebound, rigid Extremities exam: Present: normal inspection, full ROM, tenderness (Diffuse, soft tissue tenderness of the right lower leg and upper leg. No bony tenderness), normal capillary refill, other (No palpable cord, no erythema, pulses are 2+ out of 4, capillary refill less than 2 seconds, no rashes or lesions. Sensation intact). Absent: pedal edema, joint swelling, calf tenderness Back exam: Present: normal inspection Neurological exam: Present: alert, oriented X3, CN II-XII intact Psychiatric exam: Present: normal affect, normal mood Skin exam: Present: warm, dry, intact, normal color. Absent: rash Course Vital Signs 08/28/21 20:00 Temperature 98.3 F Pulse Rate 103 H Respiratory 22 Rate Blood Pressure 130/80 O2 Sat by Pulse 97 Oximetry Medical Decision Making - Medical Decision Making Likely an exacerbation of patient's chronic pain. She does come to the ER frequently for pain control. Patient does have a history of RSD. Patient has a neurologist. She can call tomorrow morning. Patient agrees with this treatment plan. Patient was told to return to the ER for any signs or symptoms worsen. Told to return immediately if any other problems arise. All questions answered. Treatment plan discussed. Patient in agreement Every effort has been made to ensure accuracy of this dictation. However, due to the limitations of electronic medical records and dictation devices, errors in charting still occur. [employer] Dr. Stubbs Disposition Clinical Impression: Chronic pain of right lower extremity, Chronic pain Disposition: HOME SELF-CARE Condition: Good Instructions (If sedation given, give patient instructions): Chronic Pain (ED), Peripheral Neuropathy (ED) Additional Instructions: Follow-up with your regular physician as directed. Return to the ER immediately if any symptoms worsen, new symptoms arise, or any other problems develop. Call your neurologist in the morning for follow-up appointment. Is patient prescribed a controlled substance at d/c from ED?: No Referrals: China Doyle MD [Primary Care Provider] - 1-2 days Casper Shannon MD [Medical Doctor] - 1-2 days Time of Disposition: 22:28
[2021-08-28 22:32] VITALS: BP 146/98; PULSE 91; RESP 16
== END 2021-08-28 22:38 | disposition home or self-care (01) ==
LOC: EC 16:57
DX: G89.29 Other chronic pain (principal); M79.604 Pain in right leg; E78.5 Hyperlipidemia, unspecified; G40.909 Epilepsy, unspecified, not intractable, without status epilepticus; J45.909 Unspecified asthma, uncomplicated; K21.9 Gastro-esophageal reflux disease without esophagitis; F31.9 Bipolar disorder, unspecified; F41.9 Anxiety disorder, unspecified; F12.90 Cannabis use, unspecified, uncomplicated; Z79.51 Long term (current) use of inhaled steroids; Z79.899 Other long term (current) drug therapy
CPT/HCPCS: 99283; 96372 ×3; J1200; J1170; J1885

== ENCOUNTER 2021-09-01 23:48 | Emergency (ER) | payer MEDICARE, OTHER ==
[2021-09-01 23:58] VITALS: BP 129/85; PULSE 95; RESP 18; TEMP 98.1
[2021-09-02] MEDS ORDERED: HYDROmorphone 1 MG/ML 1 ML SYRINGE IM STA (01:01)
[2021-09-02] MEDS ORDERED: diazePAM 5 MG TAB PO STA (01:02)
--- NOTE | 2021-09-02 01:08 | ED ---
General Adult HPI - General Chief complaint: Extremity Injury, Lower Stated complaint: Leg Pain Time Seen by Provider: 09/02/21 00:50 Source: patient, RN notes reviewed, old records reviewed Mode of arrival: wheelchair Limitations: no limitations - History of Present Illness Initial comments: 35-year-old female presents to the emergency room with complaints of bilateral lower extremity pain and burning. Patient states she has a chronic pain syndrome and has a pain pump in place. She states that she was walking her dogs for several hours today and then she started to develop increased lower extremity pain. She describes the pain as burning. She is denying any fevers, no nausea, vomiting or diarrhea. She is denying any bowel or bladder incont inence. She does have a stimulator in place and does see Dr Shannon for her chronic pain. She states she did call his office today and they were unable to get her in to be seen. -: hour(s) (3) Location: left, right, lower extremity Radiation: distal Severity scale (1-10): 10 Quality: burning Consistency: constant Improves with: none Worsens with: movement Associated Symptoms: denies other symptoms Treatments Prior to Arrival: other (prescribed pain meds and pain pump) - Related Data Home Medications Medication Instructions Recorded Confirmed Medroxyprogesterone Acetate 150 mg IM Q84D 11/22/13 10/07/20 [Depo-Provera] rOPINIRole HCL [Requip] 1 mg PO BID@0900,1200 11/22/13 10/07/20 Pentosan Polysulfate Sodium 100 mg PO DAILY 02/10/15 10/07/20 [Elmiron] HYDROcodone/APAP 7.5-325MG [Duarte 1 tab PO BID 07/20/16 10/07/20 7.5-325] Paliperidone IM Pt Own [Invega 117 mg IM Q28D 07/20/16 10/07/20 Sustenna] amantadine HCL [Symmetrel] 100 mg PO BID 11/21/16 10/07/20 Albuterol Sulfate [Proair Hfa] 2 puff INHALATION RT-QID PRN 01/13/18 10/07/20 Butalb/Acetaminophen/Caffeine 1 tab PO Q8H PRN 01/13/18 10/07/20 [Fioricet 50-325-40] Fluticasone Propionate [Flovent 1 puff INHALATION RT-BID 01/13/18 10/07/20 Hfa 110 mcg] Gemfibrozil [Lopid] 600 mg PO BID 01/13/18 10/07/20 Gabapentin [Neurontin] 300 mg PO TID 03/11/18 10/07/20 Gabapentin [Neurontin] 600 mg PO TID 09/16/19 10/07/20 Omeprazole [PriLOSEC] 40 mg PO DAILY 09/16/19 10/07/20 rOPINIRole HCL [Requip] 2 mg PO HS 09/16/19 10/07/20 traZODone HCL 300 mg PO HS 09/16/19 10/07/20 hydrOXYzine pamoate [hydrOXYzine 25 mg PO BID 04/13/20 10/07/20 PAMOATE] Cyclobenzaprine [Flexeril] 10 mg PO TID PRN 08/16/20 10/07/20 Fentanyl/Bupivcaine Pain Pump 1 dose INTRATHECA CONTINUOUS 08/16/20 10/07/20 Ibuprofen [Motrin] 600 mg PO TID PRN 10/07/20 10/07/20 diphenhydrAMINE [Benadryl] 50 mg PO DAILY PRN 10/07/20 10/07/20 Previous Rx's Medication Instructions Recorded Erythromycin Ophth Oint [Romycin 1 applic RIGHT EYE QID #1 bottle 10/03/20 Ophth Oint] Ondansetron Odt [Zofran Odt] 4 mg PO Q8HR PRN #14 tab 10/16/20 Ondansetron Odt [Zofran Odt] 4 mg PO Q8HR PRN #10 tab 06/21/21 Allergies Allergy/AdvReac Type Severity Reaction Status Date / Time azithromycin Allergy Rash/Hives Verified 08/28/21 20:06 [From Zithromax Z-Mehrdad] cimetidine [From Tagamet] Allergy Rash/Hives Verified 08/28/21 20:06 ether [Ether] Allergy Anaphylaxis Verified 08/28/21 20:06 Fish Containing Products Allergy Anaphylaxis Verified 08/28/21 20:06 [Fish] ibuprofen [From Motrin] Allergy Rash/Hives Verified 08/28/21 20:06 ketorolac tromethamine Allergy Rash/Hives Verified 08/28/21 20:06 [From Toradol] morphine Allergy Unknown Verified 08/28/21 20:06 ziprasidone HCl [From Geodon] Allergy Extrapyramidal Verified 08/28/21 20:06 Symptoms ciprofloxacin [From Cipro] AdvReac Rash/Hives Verified 08/28/21 20:06 fluphenazine HCl AdvReac Extrapyramidal Verified 08/28/21 20:06 [From Prolixin] Symptoms haloperidol [From Haldol] AdvReac Extrapyramidal Verified 08/28/21 20:06 Symptoms Sulfa (Sulfonamide AdvReac Nausea & Verified 08/28/21 20:06 Antibiotics) Vomiting Review of Systems ROS Statement: Those systems with pertinent positive or pertinent negative responses have been documented in the HPI. ROS Other: All systems not noted in ROS Statement are negative. Past Medical History Past Medical History: Asthma, GERD/Reflux, Hyperlipidemia, Musculoskeletal Disorder, Neurologic Disorder, Osteoarthritis (OA), Seizure Disorder Additional Past Medical History / Comment(s): RSD-DERIC FEET, INTERSTITIAL CYSTITIS, BRONCHITIS, HEMORRHOIDS,MIGRAINES, INSOMNIA. VERTIGO, last seizure 4 years ago, complex regional pain syndrome, RLS. History of Any Multi-Drug Resistant Organisms: MRSA Date of last positivie culture/infection: 04/20/15 MDRO Source:: Left Axilla Past Surgical History: Adenoidectomy, Back Surgery, Cholecystectomy, Orthopedic Surgery, Tonsillectomy Additional Past Surgical History / Comment(s): bilateral foot surgery d/t rsd, numerous pain clinic procedures, nerve stimulator in back to tx RSD placed in A ug 2015, pain pump placement, replacement of stimulator 06/2021 Past Anesthesia/Blood Transfusion Reactions: Previous Problems w/ Anesthesia Additional Past Anesthesia/Blood Transfusion Reaction / Comment(s): Pt recieved blood when she was 2 yrs old after tonsillectomy. WHEN BABY HEART STOPPED TWICE- PT STATED SHE WAS ALLERGIC TO ETHER. Past Psychological History: Anxiety, Bipolar, Depression, PTSD Smoking Status: Never smoker Past Alcohol Use History: None Reported Past Drug Use History: Marijuana - Past Family History Father History Unknown: Yes Family Medical History: Diabetes Mellitus Mother Family Medical History: Cancer, CVA/TIA, Diabetes Mellitus, Myocardial Infarction ([place]) Additional Family Medical History / Comment(s): Mother has had 5 CVAs, 3 MIs and UTERINE CANCER General Exam Limitations: no limitations General appearance: alert, in no apparent distress Head exam: Present: atraumatic Eye exam: Present: normal appearance ENT exam: Present: mucous membranes moist Respiratory exam: Absent: respiratory distress, accessory muscle use Cardiovascular Exam: Present: regular rate Extremities exam: Present: normal capillary refill. Absent: pedal edema Back exam: Present: tenderness (Lumbar sacral). Absent: CVA tenderness (R), CVA tenderness (L), rash noted Expanded Back exam: Present: other (Patient does have a pain stimulator low back). Absent: saddle anesthesia Neurological exam: Present: alert, oriented X3 Psychiatric exam: Present: normal affect, normal mood Skin exam: Present: warm, dry, normal color. Absent: cyanosis, diaphoretic, petechiae, pallor Course Vital Signs 09/01/21 23:56 Temperature 98.1 F Pulse Rate 95 Respiratory 18 Rate Blood Pressure 129/85 O2 Sat by Pulse 98 Oximetry Medical Decision Making - Medical Decision Making Patient presents with bilateral lower extremity burning and pain after walking her dogs today for several hours. Patient has been seen in the emergency room multiple times for chronic pain. She states that she does have a pain pump and sees a pain management doctor regularly. Patient denies any trauma. She denies any bowel or bladder incontinence. She states no fevers. No other red flag signs. Vital signs are stable. She is moving bilateral lower extremities. Patient was given a shot of Dilaudid and oral Valium for her leg pain. She states that she did not receive relief and was requesting Toradol and Benadryl IM which was also provided. I explained to the patient that she needs to continue taking her previously prescribed medications for her chronic pain and follow-up with her primary care doctor. She is agreeable to being discharged home and states that her caregiver is here to drive her home. Case discussed with Dr. Hernandez Disposition Clinical Impression: Chronic pain, Bilateral lower extremity pain Disposition: HOME SELF-CARE Condition: Fair Instructions (If sedation given, give patient instructions): Leg Pain (ED) Additional Instructions: Continue your pain medications as previously prescribed by your doctor. Follow- up with the primary care doctor next week. Return to the emergency room with any fevers, bowel or bladder incontinence or inability to ambulate. Is patient prescribed a controlled substance at d/c from ED?: No Referrals: China Doyle MD [Primary Care Provider] - 1-2 days Casper Shannon MD [Medical Doctor] - 1-2 days Time of Disposition: 01:36
[2021-09-02] MEDS ORDERED: diphenhydrAMINE 50 MG/ML 1 ML VIAL IM STA (01:47)
[2021-09-02] MEDS ORDERED: KETOROLAC 15 MG/ML 1 ML VIAL IM STA (01:47)
== END 2021-09-02 01:58 | disposition home or self-care (01) ==
LOC: EC 23:48
DX: M79.605 Pain in left leg (principal); M79.604 Pain in right leg; G89.29 Other chronic pain; Z88.0 Allergy status to penicillin; Z88.6 Allergy status to analgesic agent; Z88.8 Allergy status to other drugs, medicaments and biological substances; Z88.5 Allergy status to narcotic agent; Z88.2 Allergy status to sulfonamides; J45.909 Unspecified asthma, uncomplicated; E78.5 Hyperlipidemia, unspecified; K21.9 Gastro-esophageal reflux disease without esophagitis; Z79.83 Long term (current) use of bisphosphonates
CPT/HCPCS: 96372; 99283; J1200; J1170; J1885

== ENCOUNTER 2021-09-08 18:38 | Emergency (ER) | payer MEDICARE, OTHER ==
[2021-09-08 18:41] VITALS: RESP 18; TEMP 97.9
[2021-09-08] MEDS ORDERED: diphenhydrAMINE 50 MG CAP PO STA (18:41)
[2021-09-08] MEDS ORDERED: hydrOXYzine HCL 25 MG TAB PO STA (20:27)
[2021-09-08] MEDS ORDERED: methylPREDNISolone SOD SUCCI 125 MG/2 ML VIAL IV STA (20:27)
[2021-09-08] MEDS ORDERED: SODIUM CHLORIDE 0.9% 1,000 ML IV STA (20:27)
[2021-09-08] MEDS ORDERED: FAMOTIDINE 20 MG/2 ML VIAL IV STA (20:27)
--- NOTE | 2021-09-08 22:17 | ED ---
General Adult HPI - General Chief complaint: Allergic Reaction Stated complaint: allergic reaction Time Seen by Provider: 09/08/21 18:40 Source: patient Mode of arrival: ambulatory Limitations: no limitations - History of Present Illness Initial comments: 35-year-old female presents to the emergency department for rash. States that she is ALLERGIC to Motrin however took a dose at home because she was having back pain. States she was half asleep when she took the medications and didn't realize what she took. She then broke out in a rash on her chest. Denies any nausea or vomiting. No shortness of breath. Denies sensation that her airway is closing off. No mouth or facial swelling. Rashes been going on for the past 6 hours. He did take a dose of Benadryl. When this did not alleviate her symptoms she came to the emergency room for further evaluation. No other alleviating, precipitating or modifying factors - Related Data Home Medications Medication Instructions Recorded Confirmed Medroxyprogesterone Acetate 150 mg IM Q84D 11/22/13 10/07/20 [Depo-Provera] rOPINIRole HCL [Requip] 1 mg PO BID@0900,1200 11/22/13 10/07/20 Pentosan Polysulfate Sodium 100 mg PO DAILY 02/10/15 10/07/20 [Elmiron] HYDROcodone/APAP 7.5-325MG [Hartman 1 tab PO BID 07/20/16 10/07/20 7.5-325] Paliperidone IM Pt Own [Invega 117 mg IM Q28D 07/20/16 10/07/20 Sustenna] amantadine HCL [Symmetrel] 100 mg PO BID 11/21/16 10/07/20 Albuterol Sulfate [Proair Hfa] 2 puff INHALATION RT-QID PRN 01/13/18 10/07/20 Butalb/Acetaminophen/Caffeine 1 tab PO Q8H PRN 01/13/18 10/07/20 [Fioricet 50-325-40] Fluticasone Propionate [Flovent 1 puff INHALATION RT-BID 01/13/18 10/07/20 Hfa 110 mcg] gemfibroziL [Lopid] 600 mg PO BID 01/13/18 10/07/20 Gabapentin [Neurontin] 300 mg PO TID 03/11/18 10/07/20 Gabapentin [Neurontin] 600 mg PO TID 09/16/19 10/07/20 Omeprazole [PriLOSEC] 40 mg PO DAILY 09/16/19 10/07/20 rOPINIRole HCL [Requip] 2 mg PO HS 09/16/19 10/07/20 traZODone HCL 300 mg PO HS 09/16/19 10/07/20 hydrOXYzine pamoate [hydrOXYzine 25 mg PO BID 04/13/20 10/07/20 PAMOATE] Cyclobenzaprine [Flexeril] 10 mg PO TID PRN 08/16/20 10/07/20 Fentanyl/Bupivcaine Pain Pump 1 dose INTRATHECA CONTINUOUS 08/16/20 10/07/20 Ibuprofen [Motrin] 600 mg PO TID PRN 10/07/20 10/07/20 diphenhydrAMINE [Benadryl] 50 mg PO DAILY PRN 10/07/20 10/07/20 Previous Rx's Medication Instructions Recorded Erythromycin Ophth Oint [Romycin 1 applic RIGHT EYE QID #1 bottle 10/03/20 Ophth Oint] Ondansetron Odt [Zofran Odt] 4 mg PO Q8HR PRN #14 tab 10/16/20 Ondansetron Odt [Zofran Odt] 4 mg PO Q8HR PRN #10 tab 06/21/21 predniSONE [Deltasone] 20 mg PO BID #10 tab 09/08/21 Allergies Allergy/AdvReac Type Severity Reaction Status Date / Time azithromycin Allergy Rash/Hives Verified 08/28/21 20:06 [From Zithromax Z-Mehrdad] cimetidine [From Tagamet] Allergy Rash/Hives Verified 08/28/21 20:06 ether [Ether] Allergy Anaphylaxis Verified 08/28/21 20:06 Fish Containing Products Allergy Anaphylaxis Verified 08/28/21 20:06 [Fish] ibuprofen [From Motrin] Allergy Rash/Hives Verified 08/28/21 20:06 ketorolac tromethamine Allergy Rash/Hives Verified 08/28/21 20:06 [From Toradol] morphine Allergy Unknown Verified 08/28/21 20:06 ziprasidone HCl [From Geodon] Allergy Extrapyramidal Verified 08/28/21 20:06 Symptoms ciprofloxacin [From Cipro] AdvReac Rash/Hives Verified 08/28/21 20:06 fluphenazine HCl AdvReac Extrapyramidal Verified 08/28/21 20:06 [From Prolixin] Symptoms haloperidol [From Haldol] AdvReac Extrapyramidal Verified 08/28/21 20:06 Symptoms Sulfa (Sulfonamide AdvReac Nausea & Verified 08/28/21 20:06 Antibiotics) Vomiting Review of Systems ROS Statement: Those systems with pertinent positive or pertinent negative responses have been documented in the HPI. ROS Other: All systems not noted in ROS Statement are negative. Past Medical History Past Medical History: Asthma, GERD/Reflux, Hyperlipidemia, Musculoskeletal Disorder, Neurologic Disorder, Osteoarthritis (OA), Seizure Disorder Additional Past Medical History / Comment(s): RSD-DERIC FEET, INTERSTITIAL CYSTITIS, BRONCHITIS, HEMORRHOIDS,MIGRAINES, INSOMNIA. VERTIGO, last seizure 4 years ago, complex regional pain syndrome, RLS. History of Any Multi-Drug Resistant Organisms: MRSA Date of last positivie culture/infection: 04/20/15 MDRO Source:: Left Axilla Past Surgical History: Adenoidectomy, Back Surgery, Cholecystectomy, Orthopedic Surgery, Tonsillectomy Additional Past Surgical History / Comment(s): bilateral foot surgery d/t rsd, numerous pain clinic procedures, nerve stimulator in back to tx RSD placed in Nov 11 2015, pain pump placement, replacement of stimulator 06/2021 Past Anesthesia/Blood Transfusion Reactions: Previous Problems w/ Anesthesia Additional Past Anesthesia/Blood Transfusion Reaction / Comment(s): Pt recieved blood when she was 2 yrs old after tonsillectomy. WHEN BABY HEART STOPPED TWICE- PT STATED SHE WAS ALLERGIC TO ETHER. Past Psychological History: Anxiety, Bipolar, Depression, PTSD Smoking Status: Never smoker Past Alcohol Use History: None Reported Past Drug Use History: Marijuana - Past Family History Father History Unknown: Yes Family Medical History: Diabetes Mellitus Mother Family Medical History: Cancer, CVA/TIA, Diabetes Mellitus, Myocardial Infarction ([place]) Additional Family Medical History / Comment(s): Mother has had 5 CVAs, 3 MIs and UTERINE CANCER General Exam Limitations: no limitations General appearance: alert, in no apparent distress Head exam: Present: atraumatic, normocephalic, normal inspection Eye exam: Present: normal appearance, PERRL, EOMI. Absent: scleral icterus, conjunctival injection, periorbital swelling ENT exam: Present: normal exam, mucous membranes moist Neck exam: Present: normal inspection. Absent: tenderness, meningismus, lymphadenopathy Respiratory exam: Present: normal lung sounds bilaterally. Absent: respiratory distress, wheezes, rales, rhonchi, stridor Cardiovascular Exam: Present: regular rate, normal rhythm, normal heart sounds. Absent: systolic murmur, diastolic murmur, rubs, gallop, clicks GI/Abdominal exam: Present: soft, normal bowel sounds. Absent: distended, tenderness, guarding, rebound, rigid Extremities exam: Present: normal inspection, full ROM, normal capillary refill. Absent: tenderness, pedal edema, joint swelling, calf tenderness Back exam: Present: normal inspection Neurological exam: Present: alert, oriented X3, CN II-XII intact Psychiatric exam: Present: normal affect, normal mood Skin exam: Present: warm, dry, intact, rash, urticaria (chest, flanks, back, thighs, upper arms) Course Vital Signs 09/08/21 09/08/21 18:39 22:36 Temperature 97.9 F Pulse Rate 106 H 89 Respiratory 18 18 Rate Blood Pressure 111/67 119/82 O2 Sat by Pulse 98 98 Oximetry Medical Decision Making - Medical Decision Making Upon arrival patient is placed into room 10. Thorough history and physical exam was performed. Patient has no signs of respiratory distress. IV is established. She is given 125 mg of Solu-Medrol, 20 mg of Pepcid, and a dose of Atarax. She had been previously given a dose of Benadryl in the emergency dep artment. She is reevaluated and does report improvement in her symptoms. Patient will be discharged home on steroids. Septra to start them tomorrow. Additionally is to take Benadryl every 6 hours. She may substitute for a Claritin she does not want the sedative properties. Additionally take Pepcid. Follow up with her doctor in 2-4 days return for any new or worsening symptoms. Patient agreed to plan she was discharged home in stable condition Disposition Clinical Impression: Allergic reaction Disposition: HOME SELF-CARE Condition: Stable Instructions (If sedation given, give patient instructions): General Allergic Reaction (ED) Additional Instructions: Please take the steroids twice daily. Take Benadryl every 6 hours. If you do not want to be sedated by the Benadryl then substitute and take a Claritin daily. I also recommended that you take Pepcid 20 mg twice daily. Return for any new or worsening symptoms Prescriptions: predniSONE [Deltasone] 20 mg PO BID #10 tab Is patient prescribed a controlled substance at d/c from ED?: No Referrals: China Doyle MD [Primary Care Provider] - 1-2 days Time of Disposition: 22:17
[2021-09-08 22:36] VITALS: BP 119/82; PULSE 89
== END 2021-09-08 22:36 | disposition home or self-care (01) ==
LOC: EC 18:38
DX: T78.40XA Allergy, unspecified, initial encounter (principal); J45.909 Unspecified asthma, uncomplicated; E78.5 Hyperlipidemia, unspecified; K21.9 Gastro-esophageal reflux disease without esophagitis; Z79.83 Long term (current) use of bisphosphonates; Z88.1 Allergy status to other antibiotic agents; Z88.5 Allergy status to narcotic agent; Z88.2 Allergy status to sulfonamides; Z88.6 Allergy status to analgesic agent
CPT/HCPCS: 99283; 96374; 96375; 96361; J2930

== ENCOUNTER 2021-09-18 00:03 | Emergency (ER) | payer MEDICARE, OTHER ==
[2021-09-18 00:09] VITALS: BP 161/90; PULSE 103; RESP 20; TEMP 97.8
[2021-09-18] MEDS ORDERED: HYDROmorphone 1 MG/ML 1 ML SYRINGE IM STA (00:55)
[2021-09-18] MEDS ORDERED: diphenhydrAMINE 50 MG CAP PO STA (01:40)
[2021-09-18] MEDS ORDERED: KETOROLAC 15 MG/ML 1 ML VIAL IM STA (01:40)
[2021-09-18] MEDS ORDERED: diphenhydrAMINE 50 MG/ML 1 ML VIAL IM STA (02:04)
--- NOTE | 2021-09-18 02:13 | ED ---
Extremity Problem HPI - General Chief complaint: Extremity Problem,Nontraumatic Stated complaint: leg pain Time Seen by Provider: 09/18/21 00:10 Source: patient Mode of arrival: ambulatory Limitations: no limitations - History of Present Illness Initial comments: 35-year-old female with past history of chronic back and leg pain presents to the emergency department with bilateral leg pain. States that she has been working to clear out one of the rooms in her house. States she's been doing a lot of heavy lifting and bending which exacerbated her back pain. Also reports that she dropped a box on her right knee and has a bruise to the posterior aspect. She has been taking her home pain medication without any improvement. Patient still able to ambulate. No saddle anesthesia. No bowel or bladder incontience. no fever. No other alleviating, precipitating or modifying factors. - Related Data Home Medications Medication Instructions Recorded Confirmed Medroxyprogesterone Acetate 150 mg IM Q84D 11/22/13 10/07/20 [Depo-Provera] rOPINIRole HCL [Requip] 1 mg PO BID@0900,1200 11/22/13 10/07/20 Pentosan Polysulfate Sodium 100 mg PO DAILY 02/10/15 10/07/20 [Elmiron] HYDROcodone/APAP 7.5-325MG [[place] 1 tab PO BID 07/20/16 10/07/20 7.5-325] Paliperidone IM Pt Own [Invega 117 mg IM Q28D 07/20/16 10/07/20 Sustenna] amantadine HCL [Symmetrel] 100 mg PO BID 11/21/16 10/07/20 Albuterol Sulfate [Proair Hfa] 2 puff INHALATION RT-QID PRN 01/13/18 10/07/20 Butalb/Acetaminophen/Caffeine 1 tab PO Q8H PRN 01/13/18 10/07/20 [Fioricet 50-325-40] Fluticasone Propionate [Flovent 1 puff INHALATION RT-BID 01/13/18 10/07/20 Hfa 110 mcg] gemfibroziL [Lopid] 600 mg PO BID 01/13/18 10/07/20 Gabapentin [Neurontin] 300 mg PO TID 03/11/18 10/07/20 Gabapentin [Neurontin] 600 mg PO TID 09/16/19 10/07/20 Omeprazole [PriLOSEC] 40 mg PO DAILY 09/16/19 10/07/20 rOPINIRole HCL [Requip] 2 mg PO HS 09/16/19 10/07/20 traZODone HCL 300 mg PO HS 09/16/19 10/07/20 hydrOXYzine pamoate [hydrOXYzine 25 mg PO BID 04/13/20 10/07/20 PAMOATE] Cyclobenzaprine [Flexeril] 10 mg PO TID PRN 08/16/20 10/07/20 Fentanyl/Bupivcaine Pain Pump 1 dose INTRATHECA CONTINUOUS 08/16/20 10/07/20 Ibuprofen [Motrin] 600 mg PO TID PRN 10/07/20 10/07/20 diphenhydrAMINE [Benadryl] 50 mg PO DAILY PRN 10/07/20 10/07/20 Previous Rx's Medication Instructions Recorded Erythromycin Ophth Oint [Romycin 1 applic RIGHT EYE QID #1 bottle 10/03/20 Ophth Oint] Ondansetron Odt [Zofran Odt] 4 mg PO Q8HR PRN #14 tab 10/16/20 Ondansetron Odt [Zofran Odt] 4 mg PO Q8HR PRN #10 tab 06/21/21 predniSONE [Deltasone] 20 mg PO BID #10 tab 09/08/21 Allergies Allergy/AdvReac Type Severity Reaction Status Date / Time azithromycin Allergy Rash/Hives Verified 09/23/21 22:40 [From Zithromax Z-Mehrdad] cimetidine [From Tagamet] Allergy Rash/Hives Verified 09/23/21 22:40 ether [Ether] Allergy Anaphylaxis Verified 09/23/21 22:40 Fish Containing Products Allergy Anaphylaxis Verified 09/23/21 22:40 [Fish] ibuprofen [From Motrin] Allergy Rash/Hives Verified 09/23/21 22:40 ketorolac tromethamine Allergy Rash/Hives Verified 09/23/21 22:40 [From Toradol] morphine Allergy Unknown Verified 09/23/21 22:40 ziprasidone HCl [From Geodon] Allergy Extrapyramidal Verified 09/23/21 22:40 Symptoms ciprofloxacin [From Cipro] AdvReac Rash/Hives Verified 09/23/21 22:40 fluphenazine HCl AdvReac Extrapyramidal Verified 09/23/21 22:40 [From Prolixin] Symptoms haloperidol [From Haldol] AdvReac Extrapyramidal Verified 09/23/21 22:40 Symptoms Sulfa (Sulfonamide AdvReac Nausea & Verified 09/23/21 22:40 Antibiotics) Vomiting Review of Systems ROS Statement: Those systems with pertinent positive or pertinent negative responses have been documented in the HPI. ROS Other: All systems not noted in ROS Statement are negative. Past Medical History Past Medical History: Asthma, GERD/Reflux, Hyperlipidemia, Musculoskeletal Disorder, Neurologic Disorder, Osteoarthritis (OA), Seizure Disorder Additional Past Medical History / Comment(s): RSD-DERIC FEET, INTERSTITIAL CYSTITIS, BRONCHITIS, HEMORRHOIDS,MIGRAINES, INSOMNIA. VERTIGO, last seizure 4 years ago, complex regional pain syndrome, RLS. History of Any Multi-Drug Resistant Organisms: MRSA Date of last positivie culture/infection: 04/20/15 MDRO Source:: Left Axilla Past Surgical History: Adenoidectomy, Back Surgery, Cholecystectomy, Orthopedic Surgery, Tonsillectomy Additional Past Surgical History / Comment(s): bilateral foot surgery d/t rsd, numerous pain clinic procedures, nerve stimulator in back to tx RSD placed in Nov 11 2015, pain pump placement, replacement of stimulator 06/2021 Past Anesthesia/Blood Transfusion Reactions: Previous Problems w/ Anesthesia Additional Past Anesthesia/Blood Transfusion Reaction / Comment(s): Pt recieved blood when she was 2 yrs old after tonsillectomy. WHEN BABY HEART STOPPED TWICE- PT STATED SHE WAS ALLERGIC TO ETHER. Past Psychological History: Anxiety, Bipolar, Depression, PTSD Smoking Status: Never smoker Past Alcohol Use History: None Reported Past Drug Use History: Marijuana - Past Family History Father History Unknown: Yes Family Medical History: Diabetes Mellitus Mother Family Medical History: Cancer, CVA/TIA, Diabetes Mellitus, Myocardial Infarction ([place]) Additional Family Medical History / Comment(s): Mother has had 5 CVAs, 3 MIs and UTERINE CANCER General Exam Limitations: no limitations General appearance: alert, in no apparent distress Head exam: Present: atraumatic, normocephalic, normal inspection Eye exam: Present: normal appearance, PERRL, EOMI. Absent: scleral icterus, conjunctival injection, periorbital swelling ENT exam: Present: normal exam, mucous membranes moist Neck exam: Present: normal inspection. Absent: tenderness, meningismus, lymphadenopathy Respiratory exam: Present: normal lung sounds bilaterally. Absent: respiratory distress, wheezes, rales, rhonchi, stridor Cardiovascular Exam: Present: regular rate, normal rhythm, normal heart sounds. Absent: systolic murmur, diastolic murmur, rubs, gallop, clicks GI/Abdominal exam: Present: soft, normal bowel sounds. Absent: distended, tenderness, guarding, rebound, rigid Extremities exam: Present: normal inspection, full ROM, tenderness (lateral right knee), normal capillary refill. Absent: pedal edema, joint swelling, calf tenderness Back exam: Present: normal inspection Neurological exam: Present: alert, oriented X3, CN II-XII intact Psychiatric exam: Present: normal affect, normal mood Skin exam: Present: warm, dry, intact, normal color. Absent: rash Course Vital Signs 09/18/21 00:07 Temperature 97.8 F Pulse Rate 103 H Respiratory 20 Rate Blood Pressure 161/90 O2 Sat by Pulse 95 Oximetry Medical Decision Making - Medical Decision Making Upon arrival patient is placed into room 5. Thorough history and physical exam was performed. X-ray of the right knee obtained. Patient was given a dose of pain medication. She is reevaluated and continues to have some pain. She is requesting Toradol even though she is ALLERGIC. States that she can tolerate it when she gets Benadryl. Patient given IM Toradol reevaluated. He feels co mfortable for discharge at this time. Patient is to follow-up with her primary care doctor in 2-4 days and return for any new or worsening symptoms. Patient discharged in stable condition Disposition Clinical Impression: Right knee pain Disposition: HOME SELF-CARE Condition: Stable Instructions (If sedation given, give patient instructions): Leg Pain (ED) Additional Instructions: Please follow-up with your primary care doctor and pain management doctor. Return to the emergency room for any new or worsening symptoms Is patient prescribed a controlled substance at d/c from ED?: No Referrals: China Doyle MD [Primary Care Provider] - 1-2 days Time of Disposition: 02:13
--- NOTE | 2021-09-18 04:07 | XR ---
EXAM: XR Right Knee, 3 Views CLINICAL HISTORY: ITS.REASON XR Reason: fall, pain TECHNIQUE: Three views of the right knee. COMPARISON: 08/04/2021 FINDINGS: Bones/joints: Unremarkable. No acute fracture. No dislocation. Soft tissues: No significant overlying soft tissue abnormality. No radiopaque foreign body. No subcutaneous emphysema. IMPRESSION: No acute findings in the right knee.
== END 2021-09-18 02:29 | disposition home or self-care (01) ==
LOC: EC 00:03
DX: M25.561 Pain in right knee (principal); J45.909 Unspecified asthma, uncomplicated; E78.5 Hyperlipidemia, unspecified; K21.9 Gastro-esophageal reflux disease without esophagitis; Z79.83 Long term (current) use of bisphosphonates; Z82.49 Family history of ischemic heart disease and other diseases of the circulatory system; Z88.1 Allergy status to other antibiotic agents; Z91.013 Allergy to seafood; Z88.8 Allergy status to other drugs, medicaments and biological substances; Z88.5 Allergy status to narcotic agent; Z88.2 Allergy status to sulfonamides; Z88.9 Allergy status to unspecified drugs, medicaments and biological substances
CPT/HCPCS: 73562; 99283; 96372; J1200; J1170; J1885

== ENCOUNTER 2021-09-23 22:37 | Emergency (ER) | payer MEDICARE, OTHER ==
--- NOTE | 2021-09-23 23:49 | ED ---
General Adult HPI - General Chief complaint: Extremity Problem,Nontraumatic Stated complaint: Leg pain Source: patient, RN notes reviewed Mode of arrival: ambulatory Limitations: no limitations - History of Present Illness Initial comments: 35-year-old female presents to the emergency Department with complaints of bilateral lower extremity pain that she describes as a burning discomfort. 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 Patient denies any new injury or trauma. States she is scheduled to follow up with her neurologist on September 28 for re-evaluation. States she does have a pain pump and nerve stimulator due to her chronic leg pain. Denies any other complaints at this time. - Related Data Home Medications Medication Instructions Recorded Confirmed Medroxyprogesterone Acetate 150 mg IM Q84D 11/22/13 10/07/20 [Depo-Provera] rOPINIRole HCL [Requip] 1 mg PO BID@0900,1200 11/22/13 10/07/20 Pentosan Polysulfate Sodium 100 mg PO DAILY 02/10/15 10/07/20 [Elmiron] HYDROcodone/APAP 7.5-325MG [[place] 1 tab PO BID 07/20/16 10/07/20 7.5-325] Paliperidone IM Pt Own [Invega 117 mg IM Q28D 07/20/16 10/07/20 Sustenna] amantadine HCL [Symmetrel] 100 mg PO BID 11/21/16 10/07/20 Albuterol Sulfate [Proair Hfa] 2 puff INHALATION RT-QID PRN 01/13/18 10/07/20 Butalb/Acetaminophen/Caffeine 1 tab PO Q8H PRN 01/13/18 10/07/20 [Fioricet 50-325-40] Fluticasone Propionate [Flovent 1 puff INHALATION RT-BID 01/13/18 10/07/20 Hfa 110 mcg] gemfibroziL [Lopid] 600 mg PO BID 01/13/18 10/07/20 Gabapentin [Neurontin] 300 mg PO TID 03/11/18 10/07/20 Gabapentin [Neurontin] 600 mg PO TID 09/16/19 10/07/20 Omeprazole [PriLOSEC] 40 mg PO DAILY 09/16/19 10/07/20 rOPINIRole HCL [Requip] 2 mg PO HS 09/16/19 10/07/20 traZODone HCL 300 mg PO HS 09/16/19 10/07/20 hydrOXYzine pamoate [hydrOXYzine 25 mg PO BID 04/13/20 10/07/20 PAMOATE] Cyclobenzaprine [Flexeril] 10 mg PO TID PRN 08/16/20 10/07/20 Fentanyl/Bupivcaine Pain Pump 1 dose INTRATHECA CONTINUOUS 08/16/20 10/07/20 Ibuprofen [Motrin] 600 mg PO TID PRN 10/07/20 10/07/20 diphenhydrAMINE [Benadryl] 50 mg PO DAILY PRN 10/07/20 10/07/20 Previous Rx's Medication Instructions Recorded Erythromycin Ophth Oint [Romycin 1 applic RIGHT EYE QID #1 bottle 10/03/20 Ophth Oint] Ondansetron Odt [Zofran Odt] 4 mg PO Q8HR PRN #14 tab 10/16/20 Ondansetron Odt [Zofran Odt] 4 mg PO Q8HR PRN #10 tab 06/21/21 predniSONE [Deltasone] 20 mg PO BID #10 tab 09/08/21 Allergies Allergy/AdvReac Type Severity Reaction Status Date / Time azithromycin Allergy Rash/Hives Verified 09/23/21 22:40 [From Zithromax Z-Mehrdad] cimetidine [From Tagamet] Allergy Rash/Hives Verified 09/23/21 22:40 ether [Ether] Allergy Anaphylaxis Verified 09/23/21 22:40 Fish Containing Products Allergy Anaphylaxis Verified 09/23/21 22:40 [Fish] ibuprofen [From Motrin] Allergy Rash/Hives Verified 09/23/21 22:40 ketorolac tromethamine Allergy Rash/Hives Verified 09/23/21 22:40 [From Toradol] morphine Allergy Unknown Verified 09/23/21 22:40 ziprasidone HCl [From Geodon] Allergy Extrapyramidal Verified 09/23/21 22:40 Symptoms ciprofloxacin [From Cipro] AdvReac Rash/Hives Verified 09/23/21 22:40 fluphenazine HCl AdvReac Extrapyramidal Verified 09/23/21 22:40 [From Prolixin] Symptoms haloperidol [From Haldol] AdvReac Extrapyramidal Verified 09/23/21 22:40 Symptoms Sulfa (Sulfonamide AdvReac Nausea & Verified 09/23/21 22:40 Antibiotics) Vomiting Review of Systems ROS Statement: Those systems with pertinent positive or pertinent negative responses have been documented in the HPI. ROS Other: All systems not noted in ROS Statement are negative. Past Medical History Past Medical History: Asthma, GERD/Reflux, Hyperlipidemia, Musculoskeletal Disorder, Neurologic Disorder, Osteoarthritis (OA), Seizure Disorder Additional Past Medical History / Comment(s): RSD-DERIC FEET, INTERSTITIAL CYSTITIS, BRONCHITIS, HEMORRHOIDS,MIGRAINES, INSOMNIA. VERTIGO, last seizure 4 years ago, complex regional pain syndrome, RLS. History of Any Multi-Drug Resistant Organisms: MRSA Date of last positivie culture/infection: 04/20/15 MDRO Source:: Left Axilla Past Surgical History: Adenoidectomy, Back Surgery, Cholecystectomy, Orthopedic Surgery, Tonsillectomy Additional Past Surgical History / Comment(s): bilateral foot surgery d/t rsd, numerous pain clinic procedures, nerve stimulator in back to tx RSD placed in Nov 11 2015, pain pump placement, replacement of stimulator 06/2021 Past Anesthesia/Blood Transfusion Reactions: Previous Problems w/ Anesthesia Additional Past Anesthesia/Blood Transfusion Reaction / Comment(s): Pt recieved blood when she was 2 yrs old after tonsillectomy. WHEN BABY HEART STOPPED TWICE- PT STATED SHE WAS ALLERGIC TO ETHER. Past Psychological History: Anxiety, Bipolar, Depression, PTSD Smoking Status: Never smoker Past Alcohol Use History: None Reported Past Drug Use History: Marijuana - Past Family History Father History Unknown: Yes Family Medical History: Diabetes Mellitus Mother Family Medical History: Cancer, CVA/TIA, Diabetes Mellitus, Myocardial Infarction ([place]) Additional Family Medical History / Comment(s): Mother has had 5 CVAs, 3 MIs and UTERINE CANCER General Exam Limitations: no limitations General appearance: alert, in distress (This is a well-developed, well-nourished female in moderate distress due to pain. Initial temperature 98.0, pulse 107, respirations 20, blood pressure 134/86, pulse ox 96% on room air.) Respiratory exam: Present: normal lung sounds bilaterally. Absent: respiratory distress, wheezes, rales, rhonchi, stridor Cardiovascular Exam: Present: regular rate, normal rhythm, normal heart sounds. Absent: systolic murmur, diastolic murmur, rubs, gallop, clicks GI/Abdominal exam: Present: soft, normal bowel sounds. Absent: distended, tenderness, guarding, rebound, rigid Extremities exam: Present: normal inspection, full ROM, normal capillary refill, other (Endorses generalized discomfort on bilateral lower extremities; atraumatic, non-erythematous, non-edemacious.). Absent: pedal edema, joint swelling Neurological exam: Present: alert, oriented X3, normal gait Psychiatric exam: Present: anxious (patient is tearful) Skin exam: Present: warm, dry, intact, normal color. Absent: rash Course Vital Signs 09/23/21 09/24/21 22:40 01:04 Temperature 98.0 F 98.9 F Pulse Rate 107 H 105 H Respiratory 20 18 Rate Blood Pressure 134/86 145/95 O2 Sat by Pulse 96 95 Oximetry Medical Decision Making - Medical Decision Making 35-year-old female with a past medical history of chronic leg pain attributed to complex regional pain syndrome presents to the emergency department for exacerbation of pain. Patient does have a pain pump and a nerve stimulator. 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 Upon exam, patient is tearful and anxious regarding her leg pain. She is able to ambulate without difficulty and has no significant exam findings. States that she has had previous visits in which she has received injections of Dilaudid, Toradol, and Benadryl which has significantly improved her discomfort. These medications were given IM and patient is implored to follow up with her neurologist as scheduled on the . Return parameters discussed in detail. Patient verbalizes understanding and agrees with this plan. Attending: David. Disposition Clinical Impression: Chronic pain of lower extremity, bilateral Disposition: HOME SELF-CARE Condition: Stable Instructions (If sedation given, give patient instructions): Chronic Pain (ED) Additional Instructions: Continue your home medication regimen as prescribed. Please follow-up with your neurologist as scheduled for ongoing management of your chronic pain. Return to the emergency department with any new, worsening, or concerning symptoms. Is patient prescribed a controlled substance at d/c from ED?: No Referrals: China Doyle MD [Primary Care Provider] - 1-2 days Time of Disposition: 00:58
[2021-09-23] MEDS ORDERED: HYDROmorphone 0.5 MG/0.5 ML SYRINGE IM STA (23:59)
[2021-09-23] MEDS ORDERED: KETOROLAC 15 MG/ML 1 ML VIAL IM STA (23:59)
[2021-09-23] MEDS ORDERED: diphenhydrAMINE 50 MG/ML 1 ML VIAL IM STA (23:59)
[2021-09-24 01:13] VITALS: BP 145/95; PULSE 105; RESP 18; TEMP 98.9
== END 2021-09-24 01:05 | disposition home or self-care (01) ==
LOC: EC 22:37
DX: G89.29 Other chronic pain (principal); M79.605 Pain in left leg; M79.604 Pain in right leg; E78.5 Hyperlipidemia, unspecified; K21.9 Gastro-esophageal reflux disease without esophagitis; J45.909 Unspecified asthma, uncomplicated; G40.909 Epilepsy, unspecified, not intractable, without status epilepticus; M19.90 Unspecified osteoarthritis, unspecified site; F31.9 Bipolar disorder, unspecified; F41.9 Anxiety disorder, unspecified; F12.90 Cannabis use, unspecified, uncomplicated; Z79.51 Long term (current) use of inhaled steroids; Z79.899 Other long term (current) drug therapy
CPT/HCPCS: 99283; 96372 ×3; J1200; J1885; J1170

== ENCOUNTER 2021-09-28 23:37 | Emergency (ER) | payer MEDICARE, OTHER ==
[2021-09-28 23:48] VITALS: BP 150/90; PULSE 95; RESP 18; TEMP 98.7
[2021-09-29] MEDS ORDERED: HYDROmorphone 1 MG/ML 1 ML SYRINGE IM STA (00:21)
--- NOTE | 2021-09-29 00:23 | ED ---
Recheck HPI - General Chief Complaint: Extremity Injury, Lower Stated Complaint: leg pain Time Seen by Provider: 09/28/21 23:50 Source: patient, RN notes reviewed, old records reviewed Mode of arrival: ambulatory Limitations: no limitations - History of Present Illness Initial Comments: This is a 35-year-old female who is well-known to our emergency department today presenting for evaluation of right leg pain. Patient is always having auditory pain with history of chronic pain syndrome. Has estimated down both legs to help with nerve pain. Patient states the pain is severe today she also admits to significant increase in stress stress related to her house pain deemed recently unlivable. Patient has no injuries and no other complaints MD Complaint: medication refill request -: days(s) Returns Today for: persistent/worsening pain related to initial visit Symptoms Since Prior Visit: worsening pain Context: planned re-check Associated Symptoms: none Treatments Prior to Arrival: Given Pain Meds on - Related Data Home Medications Medication Instructions Recorded Confirmed Medroxyprogesterone Acetate 150 mg IM Q84D 11/22/13 10/07/20 [Depo-Provera] rOPINIRole HCL [Requip] 1 mg PO BID@0900,1200 11/22/13 10/07/20 Pentosan Polysulfate Sodium 100 mg PO DAILY 02/10/15 10/07/20 [Elmiron] HYDROcodone/APAP 7.5-325MG [[place] 1 tab PO BID 07/20/16 10/07/20 7.5-325] Paliperidone IM Pt Own [Invega 117 mg IM Q28D 07/20/16 10/07/20 Sustenna] amantadine HCL [Symmetrel] 100 mg PO BID 11/21/16 10/07/20 Albuterol Sulfate [Proair Hfa] 2 puff INHALATION RT-QID PRN 01/13/18 10/07/20 Butalb/Acetaminophen/Caffeine 1 tab PO Q8H PRN 01/13/18 10/07/20 [Fioricet 50-325-40] Fluticasone Propionate [Flovent 1 puff INHALATION RT-BID 01/13/18 10/07/20 Hfa 110 mcg] gemfibroziL [Lopid] 600 mg PO BID 01/13/18 10/07/20 Gabapentin [Neurontin] 300 mg PO TID 03/11/18 10/07/20 Gabapentin [Neurontin] 600 mg PO TID 09/16/19 10/07/20 Omeprazole [PriLOSEC] 40 mg PO DAILY 09/16/19 10/07/20 rOPINIRole HCL [Requip] 2 mg PO HS 09/16/19 10/07/20 traZODone HCL 300 mg PO HS 09/16/19 10/07/20 hydrOXYzine pamoate [hydrOXYzine 25 mg PO BID 04/13/20 10/07/20 PAMOATE] Cyclobenzaprine [Flexeril] 10 mg PO TID PRN 08/16/20 10/07/20 Fentanyl/Bupivcaine Pain Pump 1 dose INTRATHECA CONTINUOUS 08/16/20 10/07/20 Ibuprofen [Motrin] 600 mg PO TID PRN 10/07/20 10/07/20 diphenhydrAMINE [Benadryl] 50 mg PO DAILY PRN 10/07/20 10/07/20 Previous Rx's Medication Instructions Recorded Erythromycin Ophth Oint [Romycin 1 applic RIGHT EYE QID #1 bottle 10/03/20 Ophth Oint] Ondansetron Odt [Zofran Odt] 4 mg PO Q8HR PRN #14 tab 10/16/20 Ondansetron Odt [Zofran Odt] 4 mg PO Q8HR PRN #10 tab 06/21/21 predniSONE [Deltasone] 20 mg PO BID #10 tab 09/08/21 Allergies Allergy/AdvReac Type Severity Reaction Status Date / Time azithromycin Allergy Rash/Hives Verified 09/23/21 22:40 [From Zithromax Z-Mehrdad] cimetidine [From Tagamet] Allergy Rash/Hives Verified 09/23/21 22:40 ether [Ether] Allergy Anaphylaxis Verified 09/23/21 22:40 Fish Containing Products Allergy Anaphylaxis Verified 09/23/21 22:40 [Fish] ibuprofen [From Motrin] Allergy Rash/Hives Verified 09/23/21 22:40 ketorolac tromethamine Allergy Rash/Hives Verified 09/23/21 22:40 [From Toradol] morphine Allergy Unknown Verified 09/23/21 22:40 ziprasidone HCl [From Geodon] Allergy Extrapyramidal Verified 09/23/21 22:40 Symptoms ciprofloxacin [From Cipro] AdvReac Rash/Hives Verified 09/23/21 22:40 fluphenazine HCl AdvReac Extrapyramidal Verified 09/23/21 22:40 [From Prolixin] Symptoms haloperidol [From Haldol] AdvReac Extrapyramidal Verified 09/23/21 22:40 Symptoms Sulfa (Sulfonamide AdvReac Nausea & Verified 09/23/21 22:40 Antibiotics) Vomiting Review of Systems ROS Statement: Those systems with pertinent positive or pertinent negative responses have been documented in the HPI. ROS Other: All systems not noted in ROS Statement are negative. Past Medical History Past Medical History: Asthma, GERD/Reflux, Hyperlipidemia, Musculoskeletal Disorder, Neurologic Disorder, Osteoarthritis (OA), Seizure Disorder Additional Past Medical History / Comment(s): RSD-DERIC FEET, INTERSTITIAL CYSTITIS, BRONCHITIS, HEMORRHOIDS,MIGRAINES, INSOMNIA. VERTIGO, last seizure 4 years ago, complex regional pain syndrome, RLS. History of Any Multi-Drug Resistant Organisms: MRSA Date of last positivie culture/infection: 04/20/15 MDRO Source:: Left Axilla Past Surgical History: Adenoidectomy, Back Surgery, Cholecystectomy, Orthopedic Surgery, Tonsillectomy Additional Past Surgical History / Comment(s): bilateral foot surgery d/t rsd, numerous pain clinic procedures, nerve stimulator in back to tx RSD placed in Nov 11 2015, pain pump placement, replacement of stimulator 06/2021 Past Anesthesia/Blood Transfusion Reactions: Previous Problems w/ Anesthesia Additional Past Anesthesia/Blood Transfusion Reaction / Comment(s): Pt recieved blood when she was 2 yrs old after tonsillectomy. WHEN BABY HEART STOPPED TWICE- PT STATED SHE WAS ALLERGIC TO ETHER. Past Psychological History: Anxiety, Bipolar, Depression, PTSD Smoking Status: Never smoker Past Alcohol Use History: None Reported Past Drug Use History: Marijuana - Past Family History Father History Unknown: Yes Family Medical History: Diabetes Mellitus Mother Family Medical History: Cancer, CVA/TIA, Diabetes Mellitus, Myocardial Infarction ([place]) Additional Family Medical History / Comment(s): Mother has had 5 CVAs, 3 MIs and UTERINE CANCER General Exam General appearance: alert, in no apparent distress, anxious Head exam: Present: atraumatic, normocephalic, normal inspection Eye exam: Present: normal appearance, PERRL, EOMI. Absent: scleral icterus, conjunctival injection, periorbital swelling ENT exam: Present: normal exam, mucous membranes moist Neck exam: Present: normal inspection. Absent: tenderness, meningismus, lymphadenopathy Respiratory exam: Present: normal lung sounds bilaterally. Absent: respiratory distress, wheezes, rales, rhonchi, stridor Cardiovascular Exam: Present: regular rate, normal rhythm, normal heart sounds. Absent: systolic murmur, diastolic murmur, rubs, gallop, clicks GI/Abdominal exam: Present: soft, normal bowel sounds. Absent: distended, t enderness, guarding, rebound, rigid Extremities exam: Present: normal inspection, full ROM, normal capillary refill. Absent: tenderness, pedal edema, joint swelling, calf tenderness Back exam: Present: normal inspection Neurological exam: Present: alert, oriented X3, CN II-XII intact Psychiatric exam: Present: normal affect, normal mood Skin exam: Present: warm, dry, intact, normal color. Absent: rash Course Vital Signs 09/28/21 23:43 Temperature 98.7 F Pulse Rate 95 Respiratory 18 Rate Blood Pressure 150/90 O2 Sat by Pulse 96 Oximetry - Reevaluation(s) Reevaluation #1: 09/29/21 00:46 Records reviewed Reevaluation #2: 09/29/21 00:46 Patient informed results questions answered Reevaluation #3: 09/29/21 00:46 Patient feels improved is okay for discharge home Medical Decision Making - Medical Decision Making 35 female to the emergency department for evaluation. Patient does have history of chronic pain syndrome history of right leg. Pain is improved here in the ER is very emotional not homicidal or suicidal discharged home Disposition Clinical Impression: Right leg pain, Right knee pain, Chronic pain of lower extremity, bilateral, Chronic pain syndrome Disposition: HOME SELF-CARE Condition: Good Instructions (If sedation given, give patient instructions): Knee Pain (ED) Is patient prescribed a controlled substance at d/c from ED?: No Referrals: China Doyle MD [Primary Care Provider] - 1-2 days
[2021-09-29] MEDS ORDERED: LIDOCAINE 5% PATCH TOPICAL SCH (09:00)
== END 2021-09-29 00:56 | disposition home or self-care (01) ==
LOC: EC 23:37
DX: G89.4 Chronic pain syndrome (principal); M25.561 Pain in right knee; J45.909 Unspecified asthma, uncomplicated; K21.9 Gastro-esophageal reflux disease without esophagitis; Z79.83 Long term (current) use of bisphosphonates; Z88.1 Allergy status to other antibiotic agents; Z88.5 Allergy status to narcotic agent; Z88.6 Allergy status to analgesic agent; Z88.8 Allergy status to other drugs, medicaments and biological substances; Z88.2 Allergy status to sulfonamides
CPT/HCPCS: 99283; 96372; J1170

== ENCOUNTER 2021-10-05 23:59 | Emergency (ER) | payer MEDICARE, OTHER ==
[2021-10-06 00:35] VITALS: RESP 19; TEMP 98.6
[2021-10-06] MEDS ORDERED: METOCLOPRAMIDE 5 MG/ML 2 ML VIAL IVP STA (00:52)
[2021-10-06] MEDS ORDERED: SODIUM CHLORIDE 0.9% 1,000 ML IV STA (00:52)
[2021-10-06] MEDS ORDERED: KETOROLAC 15 MG/ML 1 ML VIAL IVP STA (00:52)
[2021-10-06] MEDS ORDERED: diphenhydrAMINE 50 MG/ML 1 ML VIAL IVP STA (00:52)
--- NOTE | 2021-10-06 00:54 | ED ---
General Adult HPI - General Chief complaint: Headache Stated complaint: migrane Time Seen by Provider: 10/06/21 00:37 Source: patient, RN notes reviewed Mode of arrival: ambulatory - History of Present Illness Initial comments: 35-year-old female presents to the emergency department for evaluation of migraine headache 6 days. Patient states she has been seen by her PCP and was given Toradol and Benadryl. States he has been taking her. Said at home with no improvement. Reports accompanying symptoms include sensitivity to light and sound as well as nausea. States this migraine is consistent with her typical migraines and was triggered by prolonged sun exposure over the weekend. Denies any additional complaints at this time. - Related Data Home Medications Medication Instructions Recorded Confirmed Medroxyprogesterone Acetate 150 mg IM Q84D 11/22/13 10/07/20 [Depo-Provera] rOPINIRole HCL [Requip] 1 mg PO BID@0900,1200 11/22/13 10/07/20 Pentosan Polysulfate Sodium 100 mg PO DAILY 02/10/15 10/07/20 [Elmiron] HYDROcodone/APAP 7.5-325MG [[place] 1 tab PO BID 07/20/16 10/07/20 7.5-325] Paliperidone IM Pt Own [[place]vega 117 mg IM Q28D 07/20/16 10/07/20 Sustenna] amantadine HCL [Symmetrel] 100 mg PO BID 11/21/16 10/07/20 Albuterol Sulfate [Proair Hfa] 2 puff INHALATION RT-QID PRN 01/13/18 10/07/20 Butalb/Acetaminophen/Caffeine 1 tab PO Q8H PRN 01/13/18 10/07/20 [Fioricet 50-325-40] Fluticasone Propionate [Flovent 1 puff INHALATION RT-BID 01/13/18 10/07/20 Hfa 110 mcg] gemfibroziL [Lopid] 600 mg PO BID 01/13/18 10/07/20 Gabapentin [Neurontin] 300 mg PO TID 03/11/18 10/07/20 Gabapentin [Neurontin] 600 mg PO TID 09/16/19 10/07/20 Omeprazole [PriLOSEC] 40 mg PO DAILY 09/16/19 10/07/20 rOPINIRole HCL [Requip] 2 mg PO HS 09/16/19 10/07/20 traZODone HCL 300 mg PO HS 09/16/19 10/07/20 hydrOXYzine pamoate [hydrOXYzine 25 mg PO BID 04/13/20 10/07/20 PAMOATE] Cyclobenzaprine [Flexeril] 10 mg PO TID PRN 08/16/20 10/07/20 Fentanyl/Bupivcaine Pain Pump 1 dose INTRATHECA CONTINUOUS 08/16/20 10/07/20 Ibuprofen [Motrin] 600 mg PO TID PRN 10/07/20 10/07/20 diphenhydrAMINE [Benadryl] 50 mg PO DAILY PRN 10/07/20 10/07/20 Previous Rx's Medication Instructions Recorded Erythromycin Ophth Oint [Romycin 1 applic RIGHT EYE QID #1 bottle 10/03/20 Ophth Oint] Ondansetron Odt [Zofran Odt] 4 mg PO Q8HR PRN #14 tab 10/16/20 Ondansetron Odt [Zofran Odt] 4 mg PO Q8HR PRN #10 tab 06/21/21 predniSONE [Deltasone] 20 mg PO BID #10 tab 09/08/21 Allergies Allergy/AdvReac Type Severity Reaction Status Date / Time azithromycin Allergy Rash/Hives Verified 10/06/21 00:35 [From Zithromax Z-Mehrdad] cimetidine [From Tagamet] Allergy Rash/Hives Verified 10/06/21 00:35 ether [Ether] Allergy Anaphylaxis Verified 10/06/21 00:35 Fish Containing Products Allergy Anaphylaxis Verified 10/06/21 00:35 [Fish] ibuprofen [From Motrin] Allergy Rash/Hives Verified 10/06/21 00:35 ketorolac tromethamine Allergy Rash/Hives Verified 10/06/21 00:35 [From Toradol] morphine Allergy Unknown Verified 10/06/21 00:35 ziprasidone HCl [From Geodon] Allergy Extrapyramidal Verified 10/06/21 00:35 Symptoms ciprofloxacin [From Cipro] AdvReac Rash/Hives Verified 10/06/21 00:35 fluphenazine HCl AdvReac Extrapyramidal Verified 10/06/21 00:35 [From Prolixin] Symptoms haloperidol [From Haldol] AdvReac Extrapyramidal Verified 10/06/21 00:35 Symptoms Sulfa (Sulfonamide AdvReac Nausea & Verified 10/06/21 00:35 Antibiotics) Vomiting Review of Systems ROS Statement: Those systems with pertinent positive or pertinent negative responses have been documented in the HPI. ROS Other: All systems not noted in ROS Statement are negative. Past Medical History Past Medical History: Asthma, GERD/Reflux, Hyperlipidemia, Musculoskeletal Disorder, Neurologic Disorder, Osteoarthritis (OA), Seizure Disorder Additional Past Medical History / Comment(s): RSD-DERIC FEET, INTERSTITIAL CYSTITIS, BRONCHITIS, HEMORRHOIDS,MIGRAINES, INSOMNIA. VERTIGO, last seizure 4 years ago, complex regional pain syndrome, RLS. History of Any Multi-Drug Resistant Organisms: MRSA Date of last positivie culture/infection: 04/20/15 MDRO Source:: Left Axilla Past Surgical History: Adenoidectomy, Back Surgery, Cholecystectomy, Orthopedic Surgery, Tonsillectomy Additional Past Surgical History / Comment(s): bilateral foot surgery d/t rsd, numerous pain clinic procedures, nerve stimulator in back to tx RSD placed in Nov 11 2015, pain pump placement, replacement of stimulator 06/2021 Past Anesthesia/Blood Transfusion Reactions: Previous Problems w/ Anesthesia Additional Past Anesthesia/Blood Transfusion Reaction / Comment(s): Pt recieved blood when she was 2 yrs old after tonsillectomy. WHEN BABY HEART STOPPED TWICE- PT STATED SHE WAS ALLERGIC TO ETHER. Past Psychological History: Anxiety, Bipolar, Depression, PTSD Smoking Status: Never smoker Past Alcohol Use History: None Reported Past Drug Use History: Marijuana - Past Family History Father History Unknown: Yes Family Medical History: Diabetes Mellitus Mother Family Medical History: Cancer, CVA/TIA, Diabetes Mellitus, Myocardial Infarction ([place]) Additional Family Medical History / Comment(s): Mother has had 5 CVAs, 3 MIs and UTERINE CANCER General Exam Limitations: no limitations (Well-developed, well-nourished female in no acute distress. Initial temperature 98.6, pulse 101, respirations 18, blood pressure 150/94, pulse ox 99% on room air.) General appearance: alert, in no apparent distress Head exam: Present: atraumatic, normocephalic, normal inspection Eye exam: Present: normal appearance, PERRL, EOMI. Absent: scleral icterus, conjunctival injection Neck exam: Present: normal inspection, full ROM. Absent: tenderness, men ingismus, lymphadenopathy Respiratory exam: Present: normal lung sounds bilaterally. Absent: respiratory distress, wheezes, rales, rhonchi, stridor Cardiovascular Exam: Present: regular rate, normal rhythm, normal heart sounds. Absent: systolic murmur, diastolic murmur, rubs, gallop, clicks GI/Abdominal exam: Present: soft, normal bowel sounds, other (Implanted pain pump in the left mid-lower abdomen). Absent: distended, tenderness, guarding, rebound, rigid Neurological exam: Present: alert, oriented X3, CN II-XII intact, normal gait Psychiatric exam: Present: normal affect, normal mood Skin exam: Present: warm, dry, intact, normal color. Absent: rash Course Vital Signs 10/06/21 00:30 Temperature 98.6 F Pulse Rate 101 H Respiratory 19 Rate Blood Pressure 150/94 O2 Sat by Pulse 99 Oximetry - Reevaluation(s) Reevaluation #1: 10/06/21 00:53 Patient clarifies that she is able to take Toradol as long as it is administered with Benadryl. 10/06/21 02:20 Upon reassessment, patient is feeling improved and expresses readiness for discharge. Medical Decision Making - Medical Decision Making This is a 35-year-old female with a past medical history of migraine headaches, chronic back pain, and complex regional pain syndrome affecting bilateral lower extremities, who presents to the emergency department for evaluation and treatment of migraine headache. Upon exam, patient is well-appearing and in no acute distress. Endorses photophobia and nausea. No neurological deficits. Migraine is consistent with typical presentation. She is given IV fluids, Toradol, Reglan, and Benadryl with improvement. She will be discharged home to follow up with her PCP or neurologist for ongoing management. Return parameters discussed in detail. Patient verbalizes understanding and agrees with this plan. Attending: Evelyne. Disposition Clinical Impression: Migraine Disposition: HOME SELF-CARE Condition: Stable Instructions (If sedation given, give patient instructions): Migraine Headache (ED) Additional Instructions: Continue her home medication regimen as prescribed. Follow-up with your PCP or neurologist if needed for ongoing migraine management. To the emergency department with any new, worsening, or concerning symptoms. Is patient prescribed a controlled substance at d/c from ED?: No Referrals: China Doyle MD [Primary Care Provider] - 1-2 days Time of Disposition: 02:19
[2021-10-06 03:37] VITALS: BP 142/75; PULSE 70
== END 2021-10-06 02:45 | disposition home or self-care (01) ==
LOC: EC 23:59
DX: G43.909 Migraine, unspecified, not intractable, without status migrainosus (principal); J45.909 Unspecified asthma, uncomplicated; K21.9 Gastro-esophageal reflux disease without esophagitis; E78.5 Hyperlipidemia, unspecified; M19.90 Unspecified osteoarthritis, unspecified site; Z88.1 Allergy status to other antibiotic agents; Z88.8 Allergy status to other drugs, medicaments and biological substances; Z91.018 Allergy to other foods; Z88.6 Allergy status to analgesic agent; Z88.5 Allergy status to narcotic agent; Z88.2 Allergy status to sulfonamides; Z79.899 Other long term (current) drug therapy; Z79.51 Long term (current) use of inhaled steroids
CPT/HCPCS: 99283; 96374; 96375; 96361; J1200; J2765; J1885

== ENCOUNTER 2021-10-13 18:34 | Emergency (ER) | payer MEDICARE, OTHER ==
[2021-10-13 18:39] VITALS: PULSE 105; RESP 20; TEMP 98.1
[2021-10-13] MEDS ORDERED: hydrOXYzine HCL 50 MG/ML 1 ML VIAL IM STA (19:46)
[2021-10-13] MEDS ORDERED: HYDROmorphone 1 MG/ML 1 ML SYRINGE IM STA (19:46)
[2021-10-13] MEDS ORDERED: KETOROLAC 15 MG/ML 1 ML VIAL IM STA (19:47)
--- NOTE | 2021-10-13 19:49 | ED ---
Extremity Problem HPI - General Chief complaint: Extremity Problem,Nontraumatic Stated complaint: Leg pain Time Seen by Provider: 10/13/21 19:39 Source: patient, RN notes reviewed Mode of arrival: ambulatory Limitations: no limitations - History of Present Illness Initial comments: This is a pleasant 35-year-old female who is well-known to this emergency department. Patient presents again with chronic pain to her right lower extremity. Patient states that she saw her pain management physician yesterday. Patient has a TENS unit. She is also on [place] and other medications for chronic pain at home. Patient states that she continues to have pain which is not controlled by her current pain regimen. No fever or chills. No injury. No headache, no fever or chills, no changes in vision or hearing, no sore throat or difficulty with speech, no neck pain, no chest pain or shortness of breath, no abdominal pain, no nausea or vomiting, no changes in urination or bowel movements, no numbness or tingling, no skin rashes or lesions. MD Complaint: extremity pain - Related Data Home Medications Medication Instructions Recorded Confirmed Medroxyprogesterone Acetate 150 mg IM Q84D 11/22/13 10/07/20 [Depo-Provera] rOPINIRole HCL [Requip] 1 mg PO BID@0900,1200 11/22/13 10/07/20 Pentosan Polysulfate Sodium 100 mg PO DAILY 02/10/15 10/07/20 [Elmiron] HYDROcodone/APAP 7.5-325MG [[place] 1 tab PO BID 07/20/16 10/07/20 7.5-325] Paliperidone IM Pt Own [Invega 117 mg IM Q28D 07/20/16 10/07/20 Sustenna] amantadine HCL [Symmetrel] 100 mg PO BID 11/21/16 10/07/20 Albuterol Sulfate [Proair Hfa] 2 puff INHALATION RT-QID PRN 01/13/18 10/07/20 Butalb/Acetaminophen/Caffeine 1 tab PO Q8H PRN 01/13/18 10/07/20 [Fioricet 50-325-40] Fluticasone Propionate [Flovent 1 puff INHALATION RT-BID 01/13/18 10/07/20 Hfa 110 mcg] gemfibroziL [Lopid] 600 mg PO BID 01/13/18 10/07/20 Gabapentin [Neurontin] 300 mg PO TID 03/11/18 10/07/20 Gabapentin [Neurontin] 600 mg PO TID 09/16/19 10/07/20 Omeprazole [PriLOSEC] 40 mg PO DAILY 09/16/19 10/07/20 rOPINIRole HCL [Requip] 2 mg PO HS 09/16/19 10/07/20 traZODone HCL 300 mg PO HS 09/16/19 10/07/20 hydrOXYzine pamoate [hydrOXYzine 25 mg PO BID 04/13/20 10/07/20 PAMOATE] Cyclobenzaprine [Flexeril] 10 mg PO TID PRN 08/16/20 10/07/20 Fentanyl/Bupivcaine Pain Pump 1 dose INTRATHECA CONTINUOUS 08/16/20 10/07/20 Ibuprofen [Motrin] 600 mg PO TID PRN 10/07/20 10/07/20 diphenhydrAMINE [Benadryl] 50 mg PO DAILY PRN 10/07/20 10/07/20 Previous Rx's Medication Instructions Recorded Erythromycin Ophth Oint [Romycin 1 applic RIGHT EYE QID #1 bottle 10/03/20 Ophth Oint] Ondansetron Odt [Zofran Odt] 4 mg PO Q8HR PRN #14 tab 10/16/20 Ondansetron Odt [Zofran Odt] 4 mg PO Q8HR PRN #10 tab 06/21/21 predniSONE [Deltasone] 20 mg PO BID #10 tab 09/08/21 Allergies Allergy/AdvReac Type Severity Reaction Status Date / Time azithromycin Allergy Rash/Hives Verified 10/13/21 18:39 [From Zithromax Z-Mehrdad] cimetidine [From Tagamet] Allergy Rash/Hives Verified 10/13/21 18:39 ether [Ether] Allergy Anaphylaxis Verified 10/13/21 18:39 Fish Containing Products Allergy Anaphylaxis Verified 10/13/21 18:39 [Fish] ibuprofen [From Motrin] Allergy Rash/Hives Verified 10/13/21 18:39 ketorolac tromethamine Allergy Rash/Hives Verified 10/13/21 18:39 [From Toradol] morphine Allergy Unknown Verified 10/13/21 18:39 ziprasidone HCl [From Geodon] Allergy Extrapyramidal Verified 10/13/21 18:39 Symptoms ciprofloxacin [From Cipro] AdvReac Rash/Hives Verified 10/13/21 18:39 fluphenazine HCl AdvReac Extrapyramidal Verified 10/13/21 18:39 [From Prolixin] Symptoms haloperidol [From Haldol] AdvReac Extrapyramidal Verified 10/13/21 18:39 Symptoms Sulfa (Sulfonamide AdvReac Nausea & Verified 10/13/21 18:39 Antibiotics) Vomiting Review of Systems ROS Statement: Those systems with pertinent positive or pertinent negative responses have been documented in the HPI. ROS Other: All systems not noted in ROS Statement are negative. Past Medical History Past Medical History: Asthma, GERD/Reflux, Hyperlipidemia, Musculoskeletal Disorder, Neurologic Disorder, Osteoarthritis (OA), Seizure Disorder Additional Past Medical History / Comment(s): RSD-DERIC FEET, INTERSTITIAL CYSTITIS, BRONCHITIS, HEMORRHOIDS,MIGRAINES, INSOMNIA. VERTIGO, last seizure 4 years ago, complex regional pain syndrome, RLS. History of Any Multi-Drug Resistant Organisms: MRSA Date of last positivie culture/infection: 04/20/15 MDRO Source:: Left Axilla Past Surgical History: Adenoidectomy, Back Surgery, Cholecystectomy, Orthopedic Surgery, Tonsillectomy Additional Past Surgical History / Comment(s): bilateral foot surgery d/t rsd, numerous pain clinic procedures, nerve stimulator in back to tx RSD placed in Nov 11 2015, pain pump placement, replacement of stimulator 06/2021 Past Anesthesia/Blood Transfusion Reactions: Previous Problems w/ Anesthesia Additional Past Anesthesia/Blood Transfusion Reaction / Comment(s): Pt recieved blood when she was 2 yrs old after tonsillectomy. WHEN BABY HEART STOPPED TWICE- PT STATED SHE WAS ALLERGIC TO ETHER. Past Psychological History: Anxiety, Bipolar, Depression, PTSD Smoking Status: Never smoker Past Alcohol Use History: None Reported Past Drug Use History: Marijuana - Past Family History Father History Unknown: Yes Family Medical History: Diabetes Mellitus Mother Family Medical History: Cancer, CVA/TIA, Diabetes Mellitus, Myocardial Infarction ([place]) Additional Family Medical History / Comment(s): Mother has had 5 CVAs, 3 MIs and UTERINE CANCER General Exam - General Exam Comments Initial Comments: Patient does not appear to be ill or toxic. Minimal distress secondary to chronic right lower extremity pain. Limitations: no limitations General appearance: in distress Head exam: Present: atraumatic, normocephalic, normal inspection Eye exam: Present: normal appearance, PERRL, EOMI. Absent: scleral icterus, conjunctival injection, periorbital swelling ENT exam: Present: normal exam, mucous membranes moist Neck exam: Present: normal inspection, full ROM. Absent: tenderness, meningismus, lymphadenopathy Respiratory exam: Present: normal lung sounds bilaterally. Absent: respiratory distress, wheezes, rales, rhonchi, stridor Cardiovascular Exam: Present: regular rate, normal rhythm, normal heart sounds. Absent: systolic murmur, diastolic murmur, rubs, gallop, clicks GI/Abdominal exam: Present: soft, normal bowel sounds. Absent: distended, tenderness, guarding, rebound, rigid Extremities exam: Present: normal inspection, full ROM, normal capillary refill, other (Pulses are intact. Patient does have diffuse soft tissue tenderness. No evidence of vascular Suzanne. No evidence of infectious process). Absent: tenderness, pedal edema, joint swelling, calf tenderness Back exam: Present: normal inspection Neurological exam: Present: alert, oriented X3, CN II-XII intact Psychiatric exam: Present: normal affect, normal mood Skin exam: Present: warm, dry, intact, normal color. Absent: rash Course Vital Signs 10/13/21 18:37 Temperature 98.1 F Pulse Rate 105 H Respiratory 20 Rate O2 Sat by Pulse 96 Oximetry Medical Decision Making - Medical Decision Making Patient presents with chronic pain involving the right lower extremity which is consistent with what she is sprints in the past however she states that her current pain regimen is not taking care of the pain. Did agree to give the patient a dose of pain medications, ketorolac which she has tolerated before as well as hydroxyzine here. Patient to follow-up with her pain management physician on Saturday. We did discuss other medications which may be beneficial to the patient. Of course she'll need to discuss this with her pain management physician. Patient was told to return to the ER for any signs or symptoms worsen. Told to return immediately if any other problems arise. All questions answered. Treatment plan discussed. Patient in agreement Every effort has been made to ensure accuracy of this dictation. However, due to the limitations of electronic medical records and dictation devices, errors in charting still occur. [employer] Team Technician Dr. Whalne Disposition Clinical Impression: Chronic pain Narrative: Chronic pain, right lower extremity Disposition: HOME SELF-CARE Condition: Good Instructions (If sedation given, give patient instructions): Chronic Pain (ED) Additional Instructions: Follow-up with your regular physician as directed. Return to the ER immediately if any symptoms worsen, new symptoms arise, or any other problems develop. Follow-up with your pain management physician on Saturday as discussed. There are other medications for chronic pain which may be entertained to see if they are appropriate for you. Medications such as amitriptyline or other older antidepressants might be of benefit. Discussed this with Dr. Shannon Is patient prescribed a controlled substance at d/c from ED?: No Referrals: Casper Shannon MD [Medical Doctor] - 10/16/21 Time of Disposition: 19:49
== END 2021-10-13 20:26 | disposition home or self-care (01) ==
LOC: EC 18:34
DX: G89.29 Other chronic pain (principal); M79.604 Pain in right leg; J45.909 Unspecified asthma, uncomplicated; E78.5 Hyperlipidemia, unspecified; K21.9 Gastro-esophageal reflux disease without esophagitis; Z79.83 Long term (current) use of bisphosphonates; Z88.1 Allergy status to other antibiotic agents; Z88.5 Allergy status to narcotic agent; Z88.8 Allergy status to other drugs, medicaments and biological substances; Z88.7 Allergy status to serum and vaccine; Z88.2 Allergy status to sulfonamides
CPT/HCPCS: 99283; 96372; J3410; J1170; J1885

== ENCOUNTER 2021-10-21 18:46 | Emergency (ER) | payer MEDICARE, OTHER ==
[2021-10-21 19:11] VITALS: RESP 18; TEMP 98.2
--- NOTE | 2021-10-21 19:42 | XR ---
EXAMINATION TYPE: XR foot limited RT DATE OF EXAM: 10/21/2021 7:28 PM INDICATION: Patient age:Female; 35 years old; Reason for study: Right foot injury; COMPARISON: None. TECHNIQUE: The right foot was examined in the AP and lateral projections. FINDINGS: No evidence of any acute osseous pathology. Soft tissue swelling of the dorsum of the midfoot. Joint s are preserved. Incidental note is made of symphalangism of the fifth distal interphalangeal joint. No radiopaque foreign bodies. IMPRESSION: No evidence of acute fracture. Soft tissue swelling dorsum of the midfoot.
[2021-10-21] MEDS ORDERED: diphenhydrAMINE 50 MG/ML 1 ML VIAL IM STA (21:11)
[2021-10-21] MEDS ORDERED: KETOROLAC 15 MG/ML 1 ML VIAL IM STA (21:11)
--- NOTE | 2021-10-21 21:14 | ED ---
Lower Extremity Injury HPI - General Chief Complaint: Extremity Injury, Lower Stated Complaint: foot pain Time Seen by Provider: 10/21/21 21:02 Source: patient Mode of arrival: ambulatory - History of Present Illness Initial Comments: Patient is a 35-year-old female presenting with chief complaint of right foot pain. Patient states that she dropped a large bucket of cat litter onto the foot, and is experiencing pain and swelling near the top. Patient has pain with range of motion as well. She did not ice the foot, as this worsens her autoimmune disorder. She denies any numbness, tingling, weakness, loss of range of motion. - Related Data Home Medications Medication Instructions Recorded Confirmed Medroxyprogesterone Acetate 150 mg IM Q84D 11/22/13 10/07/20 [Depo-Provera] rOPINIRole HCL [Requip] 1 mg PO BID@0900,1200 11/22/13 10/07/20 Pentosan Polysulfate Sodium 100 mg PO DAILY 02/10/15 10/07/20 [Elmiron] HYDROcodone/APAP 7.5-325MG [[place] 1 tab PO BID 07/20/16 10/07/20 7.5-325] Paliperidone IM Pt Own [Invega 117 mg IM Q28D 07/20/16 10/07/20 Sustenna] amantadine HCL [Symmetrel] 100 mg PO BID 11/21/16 10/07/20 Albuterol Sulfate [Proair Hfa] 2 puff INHALATION RT-QID PRN 01/13/18 10/07/20 Butalb/Acetaminophen/Caffeine 1 tab PO Q8H PRN 01/13/18 10/07/20 [Fioricet 50-325-40] Fluticasone Propionate [Flovent 1 puff INHALATION RT-BID 01/13/18 10/07/20 Hfa 110 mcg] gemfibroziL [Lopid] 600 mg PO BID 01/13/18 10/07/20 Gabapentin [Neurontin] 300 mg PO TID 03/11/18 10/07/20 Gabapentin [Neurontin] 600 mg PO TID 09/16/19 10/07/20 Omeprazole [PriLOSEC] 40 mg PO DAILY 09/16/19 10/07/20 rOPINIRole HCL [Requip] 2 mg PO HS 09/16/19 10/07/20 traZODone HCL 300 mg PO HS 09/16/19 10/07/20 hydrOXYzine pamoate [hydrOXYzine 25 mg PO BID 04/13/20 10/07/20 PAMOATE] Cyclobenzaprine [Flexeril] 10 mg PO TID PRN 08/16/20 10/07/20 Fentanyl/Bupivcaine Pain Pump 1 dose INTRATHECA CONTINUOUS 08/16/20 10/07/20 Ibuprofen [Motrin] 600 mg PO TID PRN 10/07/20 10/07/20 diphenhydrAMINE [Benadryl] 50 mg PO DAILY PRN 10/07/20 10/07/20 Previous Rx's Medication Instructions Recorded Erythromycin Ophth Oint [Romycin 1 applic RIGHT EYE QID #1 bottle 10/03/20 Ophth Oint] Ondansetron Odt [Zofran Odt] 4 mg PO Q8HR PRN #14 tab 10/16/20 Ondansetron Odt [Zofran Odt] 4 mg PO Q8HR PRN #10 tab 06/21/21 predniSONE [Deltasone] 20 mg PO BID #10 tab 09/08/21 Allergies Allergy/AdvReac Type Severity Reaction Status Date / Time azithromycin Allergy Rash/Hives Verified 10/13/21 18:39 [From Zithromax Z-Mehrdad] cimetidine [From Tagamet] Allergy Rash/Hives Verified 10/13/21 18:39 ether [Ether] Allergy Anaphylaxis Verified 10/13/21 18:39 Fish Containing Products Allergy Anaphylaxis Verified 10/13/21 18:39 [Fish] ibuprofen [From Motrin] Allergy Rash/Hives Verified 10/13/21 18:39 ketorolac tromethamine Allergy Rash/Hives Verified 10/13/21 18:39 [From Toradol] morphine Allergy Unknown Verified 10/13/21 18:39 ziprasidone HCl [From Geodon] Allergy Extrapyramidal Verified 10/13/21 18:39 Symptoms ciprofloxacin [From Cipro] AdvReac Rash/Hives Verified 10/13/21 18:39 fluphenazine HCl AdvReac Extrapyramidal Verified 10/13/21 18:39 [From Prolixin] Symptoms haloperidol [From Haldol] AdvReac Extrapyramidal Verified 10/13/21 18:39 Symptoms Sulfa (Sulfonamide AdvReac Nausea & Verified 10/13/21 18:39 Antibiotics) Vomiting Review of Systems ROS Statement: Those systems with pertinent positive or pertinent negative responses have been documented in the HPI. ROS Other: All systems not noted in ROS Statement are negative. Past Medical History Past Medical History: Asthma, GERD/Reflux, Hyperlipidemia, Musculoskeletal Disorder, Neurologic Disorder, Osteoarthritis (OA), Seizure Disorder Additional Past Medical History / Comment(s): RSD-DERIC FEET, INTERSTITIAL CYSTITIS, BRONCHITIS, HEMORRHOIDS,MIGRAINES, INSOMNIA. VERTIGO, last seizure 4 years ago, complex regional pain syndrome, RLS. History of Any Multi-Drug Resistant Organisms: MRSA Date of last positivie culture/infection: 04/20/15 MDRO Source:: Left Axilla Past Surgical History: Adenoidectomy, Back Surgery, Cholecystectomy, Orthopedic Surgery, Tonsillectomy Additional Past Surgical History / Comment(s): bilateral foot surgery d/t rsd, numerous pain clinic procedures, nerve stimulator in back to tx RSD placed in Nov 11 2015, pain pump placement, replacement of stimulator 06/2021 Past Anesthesia/Blood Transfusion Reactions: Previous Problems w/ Anesthesia Additional Past Anesthesia/Blood Transfusion Reaction / Comment(s): Pt recieved blood when she was 2 yrs old after tonsillectomy. WHEN BABY HEART STOPPED TWICE- PT STATED SHE WAS ALLERGIC TO ETHER. Past Psychological History: Anxiety, Bipolar, Depression, PTSD Smoking Status: Never smoker Past Alcohol Use History: None Reported Past Drug Use History: Marijuana - Past Family History Father History Unknown: Yes Family Medical History: Diabetes Mellitus Mother Family Medical History: Cancer, CVA/TIA, Diabetes Mellitus, Myocardial Infarction ([place]) Additional Family Medical History / Comment(s): Mother has had 5 CVAs, 3 MIs and UTERINE CANCER General Exam Limitations: no limitations General appearance: alert, in no apparent distress Head exam: Present: atraumatic, normocephalic, normal inspection Eye exam: Present: normal appearance, EOMI. Absent: scleral icterus, periorbital swelling Neck exam: Present: normal inspection Extremities exam: Present: normal inspection, full ROM, tenderness (Right foot), normal capillary refill. Absent: pedal edema, joint swelling Neurological exam: Present: alert, oriented X3, CN II-XII intact Psychiatric exam: Present: normal affect, normal mood Skin exam: Present: warm, dry, intact, normal color. Absent: rash Course Vital Signs 10/21/21 19:08 Temperature 98.2 F Pulse Rate 100 Respiratory 18 Rate Blood Pressure 135/86 O2 Sat by Pulse 98 Oximetry Medical Decision Making - Medical Decision Making Patient is a 35-year-old female presenting with chief complaint of right foot pain and swelling. This occurred after an injury where she dropped a large pocket of Liter onto the foot. On exam there is tenderness to palpation, she has full sensation and range of motion. She is neurovascularly intact. X-ray shows no fracture or dislocation. Patient is provided with Amador wrap and pain medication. Follow-up with PCP in one to 2 days. Report back to ER with any new or worsening symptoms. Discussed supportive treatment. Discussed return parameters answered all questions. Patient conveyed verbal understanding and agreed to the plan. I discussed this case with my attending Dr. Veliz Disposition Clinical Impression: Strain of foot Disposition: HOME SELF-CARE Condition: Good Instructions (If sedation given, give patient instructions): Foot Sprain (ED), Arthralgia (ED) Additional Instructions: Follow-up with PCP in one to 2 days. Report back to ER with any new or worsening symptoms. Is patient prescribed a controlled substance at d/c from ED?: No Referrals: China Doyle MD [Primary Care Provider] - 1-2 days Time of Disposition: 21:14
[2021-10-21 22:38] VITALS: BP 144/105; PULSE 90
== END 2021-10-21 22:41 | disposition home or self-care (01) ==
LOC: EC 18:46
DX: S96.911A Strain of unspecified muscle and tendon at ankle and foot level, right foot, initial encounter (principal); J45.909 Unspecified asthma, uncomplicated; K21.9 Gastro-esophageal reflux disease without esophagitis; E78.5 Hyperlipidemia, unspecified; M19.90 Unspecified osteoarthritis, unspecified site; F41.9 Anxiety disorder, unspecified; F31.9 Bipolar disorder, unspecified; F12.90 Cannabis use, unspecified, uncomplicated; Z88.2 Allergy status to sulfonamides; Z88.0 Allergy status to penicillin; Z88.8 Allergy status to other drugs, medicaments and biological substances; Z88.4 Allergy status to anesthetic agent; Z91.013 Allergy to seafood; Z88.6 Allergy status to analgesic agent; Z88.1 Allergy status to other antibiotic agents; Z88.7 Allergy status to serum and vaccine; Z79.899 Other long term (current) drug therapy; W20.8XXA Other cause of strike by thrown, projected or falling object, initial encounter
CPT/HCPCS: 73620; 99283; 96372 ×2; J1200; J1885

== ENCOUNTER 2021-10-27 19:35 | Emergency (ER) | payer MEDICARE, OTHER ==
[2021-10-27 19:50] VITALS: BP 148/77; PULSE 85; RESP 22; TEMP 98.5
[2021-10-27] MEDS ORDERED: KETOROLAC 15 MG/ML 1 ML VIAL IM STA (20:43)
[2021-10-27] MEDS ORDERED: HYDROmorphone 1 MG/ML 1 ML SYRINGE IM STA (20:43)
[2021-10-27] MEDS ORDERED: ORPHENADRINE 30 MG/ML 2 ML VIAL IM STA (20:44)
--- NOTE | 2021-10-27 20:46 | ED ---
Lower Extremity Injury HPI - General Chief Complaint: Extremity Injury, Lower Stated Complaint: nerve disease causing pain in leg Time Seen by Provider: 10/27/21 20:19 Source: patient, family, RN notes reviewed Mode of arrival: ambulatory Limitations: no limitations - History of Present Illness Initial Comments: This is a pleasant 35-year-old female with a history of multiple medical disorders to include chronic pain secondary to reflex sympathetic dystrophy. Patient presents again today stating that she nearly fell when she stepped the w [address] and strained her left rib area and inflamed the pain in both lower extremities. She denies any direct trauma. Patient states she is able to ambulate. Movement exacerbates the pain. No alleviating factors. Patient is on Maxie 10/325 which she has been on for about 10 years. Patient also has a pain pump. Patient sees a local neurologist for pain control. No headache, no fever or chills, no changes in vision or hearing, no sore throat or difficulty with speech, no neck pain, no chest pain or shortness of breath, no abdominal pain, no nausea or vomiting, no changes in urination or bowel movements, no numbness or tingling, , no skin rashes or lesions. Past medical, surgical, social, and family history reviewed. - Related Data Home Medications Medication Instructions Recorded Confirmed Medroxyprogesterone Acetate 150 mg IM Q84D 11/22/13 10/07/20 [Depo-Provera] rOPINIRole HCL [Requip] 1 mg PO BID@0900,1200 11/22/13 10/07/20 Pentosan Polysulfate Sodium 100 mg PO DAILY 02/10/15 10/07/20 [Elmiron] HYDROcodone/APAP 7.5-325MG [Max[place] 1 tab PO BID 07/20/16 10/07/20 7.5-325] Paliperidone IM Pt Own [Invega 117 mg IM Q28D 07/20/16 10/07/20 Sustenna] amantadine HCL [Symmetrel] 100 mg PO BID 11/21/16 10/07/20 Albuterol Sulfate [Proair Hfa] 2 puff INHALATION RT-QID PRN 01/13/18 10/07/20 Butalb/Acetaminophen/Caffeine 1 tab PO Q8H PRN 01/13/18 10/07/20 [Fioricet 50-325-40] Fluticasone Propionate [Flovent 1 puff INHALATION RT-BID 01/13/18 10/07/20 Hfa 110 mcg] gemfibroziL [Lopid] 600 mg PO BID 01/13/18 10/07/20 Gabapentin [Neurontin] 300 mg PO TID 03/11/18 10/07/20 Gabapentin [Neurontin] 600 mg PO TID 09/16/19 10/07/20 Omeprazole [PriLOSEC] 40 mg PO DAILY 09/16/19 10/07/20 rOPINIRole HCL [Requip] 2 mg PO HS 09/16/19 10/07/20 traZODone HCL 300 mg PO HS 09/16/19 10/07/20 hydrOXYzine pamoate [hydrOXYzine 25 mg PO BID 04/13/20 10/07/20 PAMOATE] Cyclobenzaprine [Flexeril] 10 mg PO TID PRN 08/16/20 10/07/20 Fentanyl/Bupivcaine Pain Pump 1 dose INTRATHECA CONTINUOUS 08/16/20 10/07/20 Ibuprofen [Motrin] 600 mg PO TID PRN 10/07/20 10/07/20 diphenhydrAMINE [Benadryl] 50 mg PO DAILY PRN 10/07/20 10/07/20 Previous Rx's Medication Instructions Recorded Erythromycin Ophth Oint [Romycin 1 applic RIGHT EYE QID #1 bottle 10/03/20 Ophth Oint] Ondansetron Odt [Zofran Odt] 4 mg PO Q8HR PRN #14 tab 10/16/20 Ondansetron Odt [Zofran Odt] 4 mg PO Q8HR PRN #10 tab 06/21/21 predniSONE [Deltasone] 20 mg PO BID #10 tab 09/08/21 Allergies Allergy/AdvReac Type Severity Reaction Status Date / Time azithromycin Allergy Rash/Hives Verified 10/27/21 19:50 [From Zithromax Z-Mehrdad] cimetidine [From Tagamet] Allergy Rash/Hives Verified 10/27/21 19:50 ether [Ether] Allergy Anaphylaxis Verified 10/27/21 19:50 Fish Containing Products Allergy Anaphylaxis Verified 10/27/21 19:50 [Fish] ibuprofen [From Motrin] Allergy Rash/Hives Verified 10/27/21 19:50 ketorolac tromethamine Allergy Rash/Hives Verified 10/27/21 19:50 [From Toradol] morphine Allergy Unknown Verified 10/27/21 19:50 ziprasidone HCl [From Geodon] Allergy Extrapyramidal Verified 10/27/21 19:50 Symptoms ciprofloxacin [From Cipro] AdvReac Rash/Hives Verified 10/27/21 19:50 fluphenazine HCl AdvReac Extrapyramidal Verified 10/27/21 19:50 [From Prolixin] Symptoms haloperidol [From Haldol] AdvReac Extrapyramidal Verified 10/27/21 19:50 Symptoms Sulfa (Sulfonamide AdvReac Nausea & Verified 10/27/21 19:50 Antibiotics) Vomiting Review of Systems ROS Statement: Those systems with pertinent positive or pertinent negative responses have been documented in the HPI. ROS Other: All systems not noted in ROS Statement are negative. Past Medical History Past Medical History: Asthma, GERD/Reflux, Hyperlipidemia, Musculoskeletal Disorder, Neurologic Disorder, Osteoarthritis (OA), Seizure Disorder Additional Past Medical History / Comment(s): RSD-DERIC FEET, INTERSTITIAL CYSTITIS, BRONCHITIS, HEMORRHOIDS,MIGRAINES, INSOMNIA. VERTIGO, last seizure 4 years ago, complex regional pain syndrome, RLS. History of Any Multi-Drug Resistant Organisms: MRSA Date of last positivie culture/infection: 04/20/15 MDRO Source:: Left Axilla Past Surgical History: Adenoidectomy, Back Surgery, Cholecystectomy, Orthopedic Surgery, Tonsillectomy Additional Past Surgical History / Comment(s): bilateral foot surgery d/t rsd, numerous pain clinic procedures, nerve stimulator in back to tx RSD placed in Nov 11 2015, pain pump placement, replacement of stimulator 06/2021 Past Anesthesia/Blood Transfusion Reactions: Previous Problems w/ Anesthesia Additional Past Anesthesia/Blood Transfusion Reaction / Comment(s): Pt recieved blood when she was 2 yrs old after tonsillectomy. WHEN BABY HEART STOPPED TWICE- PT STATED SHE WAS ALLERGIC TO ETHER. Past Psychological History: Anxiety, Bipolar, Depression, PTSD Smoking Status: Never smoker Past Alcohol Use History: None Reported Past Drug Use History: Marijuana - Past Family History Father History Unknown: Yes Family Medical History: Diabetes Mellitus Mother Family Medical History: Cancer, CVA/TIA, Diabetes Mellitus, Myocardial Infarction ([place]) Additional Family Medical History / Comment(s): Mother has had 5 CVAs, 3 MIs and UTERINE CANCER General Exam - General Exam Comments Initial Comments: In moderate distress secondary to pain. Does not appear to be ill or toxic. Vital signs stable, patient afebrile Limitations: no limitations General appearance: in distress Head exam: Present: atraumatic, normocephalic, normal inspection Eye exam: Present: normal appearance, PERRL, EOMI. Absent: scleral icterus, conjunctival injection, periorbital swelling ENT exam: Present: normal exam, mucous membranes moist, normal external ear exam Neck exam: Present: normal inspection, full ROM. Absent: tenderness, meningismus, lymphadenopathy Respiratory exam: Present: normal lung sounds bilaterally, chest wall tenderness (Patient has chest wall tenderness to the left lateral rib area. No crepitus. No erythema. No break in skin integrity.). Absent: respiratory distress, wheezes, rales, rhonchi, stridor, accessory muscle use, decreased breath sounds, prolonged expiratory Cardiovascular Exam: Present: regular rate, normal rhythm, normal heart sounds. Absent: systolic murmur, diastolic murmur, rubs, gallop, clicks GI/Abdominal exam: Present: soft, normal bowel sounds. Absent: distended, tenderness, guarding, rebound, rigid Extremities exam: Present: normal inspection, full ROM, tenderness (Generalized soft tissue tenderness. No evidence of infectious process. No evidence of neurovascular insult. Pulses normal. Capillary refill less than 2 seconds), normal capillary refill, other (Full range of motion with pain, pulses intact). Absent: pedal edema, joint swelling, calf tenderness Back exam: Present: normal inspection Neurological exam: Present: alert, oriented X3, CN II-XII intact Psychiatric exam: Present: normal affect, normal mood Skin exam: Present: warm, dry, intact, normal color. Absent: rash Course Vital Signs 10/27/21 19:47 Temperature 98.5 F Pulse Rate 85 Respiratory 22 Rate Blood Pressure 148/77 O2 Sat by Pulse 97 Oximetry Medical Decision Making - Medical Decision Making Patient presents again with exacerbation of chronic pain secondary to RSD. Patient does have some tenderness in the left chest wall area which she states she strained when she twisted the wrong way. Patient deferring x-rays. Patient ambulatory. Patient states she knows nothing is broken. Patient requested pain medication. I did agree to give the patient 1 dose here, no controlled substances for home. Patient to follow-up with her primary care physician and her pain management physician. Patient was told to return to the ER for any signs or symptoms worsen. Told to return immediately if any other problems arise. All questions answered. Treatment plan discussed. Patient in agreement Every effort has been made to ensure accuracy of this dictation. However, due to the limitations of electronic medical records and dictation devices, errors in charting still occur. Garment Form Assembler Dr. Hoang Disposition Clinical Impression: Chronic pain, Intercostal muscle strain, Drug tolerance Narrative: Chronic pain secondary to reflex sympathetic dystrophy bilateral lower extremities Disposition: HOME SELF-CARE Condition: Stable Additional Instructions: Follow-up with your regular physician as directed. Return to the ER immediately if any symptoms worsen, new symptoms arise, or any other problems develop. Is patient prescribed a controlled substance at d/c from ED?: No Referrals: Casper Shannon MD [Medical Doctor] - As Soon As Possible China Doyle MD [Primary Care Provider] - As Soon As Possible Time of Disposition: 20:45
== END 2021-10-27 21:06 | disposition home or self-care (01) ==
LOC: EC 19:35
DX: S86.912A Strain of unspecified muscle(s) and tendon(s) at lower leg level, left leg, initial encounter (principal); S86.911A Strain of unspecified muscle(s) and tendon(s) at lower leg level, right leg, initial encounter; J45.909 Unspecified asthma, uncomplicated; K21.9 Gastro-esophageal reflux disease without esophagitis; E78.5 Hyperlipidemia, unspecified; M19.90 Unspecified osteoarthritis, unspecified site; Z88.2 Allergy status to sulfonamides; Z88.8 Allergy status to other drugs, medicaments and biological substances; Z88.1 Allergy status to other antibiotic agents; Z88.5 Allergy status to narcotic agent; Z91.013 Allergy to seafood; Z88.6 Allergy status to analgesic agent; Z79.899 Other long term (current) drug therapy; Z79.51 Long term (current) use of inhaled steroids; X58.XXXA Exposure to other specified factors, initial encounter
CPT/HCPCS: 99283; 96372; J2360; J1170; J1885

== ENCOUNTER 2021-10-31 02:39 | Emergency (ER) | payer MEDICARE, OTHER ==
[2021-10-31 02:45] VITALS: BP 159/102; PULSE 94; RESP 18; TEMP 97.9
[2021-10-31] MEDS ORDERED: KETOROLAC 15 MG/ML 1 ML VIAL IM STA (03:48)
[2021-10-31] MEDS ORDERED: HYDROmorphone 1 MG/ML 1 ML SYRINGE IM STA (03:48)
[2021-10-31] MEDS ORDERED: diphenhydrAMINE 50 MG/ML 1 ML VIAL IM STA (03:48)
--- NOTE | 2021-10-31 03:50 | ED ---
General Adult HPI - General Chief complaint: Extremity Problem,Nontraumatic Stated complaint: leg pain Source: patient, RN notes reviewed Mode of arrival: ambulatory Limitations: no limitations - History of Present Illness Initial comments: 35-year-old female presents to the emergency department for evaluation of chronic right leg pain. Patient states she has a pain pump and has been taking her Munday as prescribed, but reports breakthrough pain that has worsened throughout the day today. States she called her neurologist to requested Toradol and Benadryl shot in the office, however did not hear back from them therefore came to the emergency department. Patient states she has had no new injury or trauma. Attributes her discomfort to her complex regional pain syndrome. Denies fever, chills, headache, dizziness, chest pain, shortness of breath, abdominal pain, nausea, vomiting, diarrhea, or dysuria. - Related Data Home Medications Medication Instructions Recorded Confirmed Medroxyprogesterone Acetate 150 mg IM Q84D 11/22/13 10/07/20 [Depo-Provera] rOPINIRole HCL [Requip] 1 mg PO BID@0900,1200 11/22/13 10/07/20 Pentosan Polysulfate Sodium 100 mg PO DAILY 02/10/15 10/07/20 [Elmiron] HYDROcodone/APAP 7.5-325MG [Munday 1 tab PO BID 07/20/16 10/07/20 7.5-325] Paliperidone IM Pt Own [Invega 117 mg IM Q28D 07/20/16 10/07/20 Sustenna] amantadine HCL [Symmetrel] 100 mg PO BID 11/21/16 10/07/20 Albuterol Sulfate [Proair Hfa] 2 puff INHALATION RT-QID PRN 01/13/18 10/07/20 Butalb/Acetaminophen/Caffeine 1 tab PO Q8H PRN 01/13/18 10/07/20 [Fioricet 50-325-40] Fluticasone Propionate [Flovent 1 puff INHALATION RT-BID 01/13/18 10/07/20 Hfa 110 mcg] gemfibroziL [Lopid] 600 mg PO BID 01/13/18 10/07/20 Gabapentin [Neurontin] 300 mg PO TID 03/11/18 10/07/20 Gabapentin [Neurontin] 600 mg PO TID 09/16/19 10/07/20 Omeprazole [PriLOSEC] 40 mg PO DAILY 09/16/19 10/07/20 rOPINIRole HCL [Requip] 2 mg PO HS 09/16/19 10/07/20 traZODone HCL 300 mg PO HS 09/16/19 10/07/20 hydrOXYzine pamoate [hydrOXYzine 25 mg PO BID 04/13/20 10/07/20 PAMOATE] Cyclobenzaprine [Flexeril] 10 mg PO TID PRN 08/16/20 10/07/20 Fentanyl/Bupivcaine Pain Pump 1 dose INTRATHECA CONTINUOUS 08/16/20 10/07/20 Ibuprofen [Motrin] 600 mg PO TID PRN 10/07/20 10/07/20 diphenhydrAMINE [Benadryl] 50 mg PO DAILY PRN 10/07/20 10/07/20 Previous Rx's Medication Instructions Recorded Erythromycin Ophth Oint [Romycin 1 applic RIGHT EYE QID #1 bottle 10/03/20 Ophth Oint] Ondansetron Odt [Zofran Odt] 4 mg PO Q8HR PRN #14 tab 10/16/20 Ondansetron Odt [Zofran Odt] 4 mg PO Q8HR PRN #10 tab 06/21/21 predniSONE [Deltasone] 20 mg PO BID #10 tab 09/08/21 Allergies Allergy/AdvReac Type Severity Reaction Status Date / Time azithromycin Allergy Rash/Hives Verified 10/31/21 02:42 [From Zithromax Z-Mehrdad] cimetidine [From Tagamet] Allergy Rash/Hives Verified 10/31/21 02:42 ether [Ether] Allergy Anaphylaxis Verified 10/31/21 02:42 Fish Containing Products Allergy Anaphylaxis Verified 10/31/21 02:42 [Fish] ibuprofen [From Motrin] Allergy Rash/Hives Verified 10/31/21 02:42 ketorolac tromethamine Allergy Rash/Hives Verified 10/31/21 02:42 [From Toradol] morphine Allergy Unknown Verified 10/31/21 02:42 ziprasidone HCl [From Geodon] Allergy Extrapyramidal Verified 10/31/21 02:42 Symptoms ciprofloxacin [From Cipro] AdvReac Rash/Hives Verified 10/31/21 02:42 fluphenazine HCl AdvReac Extrapyramidal Verified 10/31/21 02:42 [From Prolixin] Symptoms haloperidol [From Haldol] AdvReac Extrapyramidal Verified 10/31/21 02:42 Symptoms Sulfa (Sulfonamide AdvReac Nausea & Verified 10/31/21 02:42 Antibiotics) Vomiting Review of Systems ROS Statement: Those systems with pertinent positive or pertinent negative responses have been documented in the HPI. ROS Other: All systems not noted in ROS Statement are negative. Past Medical History Past Medical History: Asthma, GERD/Reflux, Hyperlipidemia, Musculoskeletal Disorder, Neurologic Disorder, Osteoarthritis (OA), Seizure Disorder Additional Past Medical History / Comment(s): RSD-DERIC FEET, INTERSTITIAL CYSTITIS, BRONCHITIS, HEMORRHOIDS,MIGRAINES, INSOMNIA. VERTIGO, last seizure 4 years ago, complex regional pain syndrome, RLS. History of Any Multi-Drug Resistant Organisms: MRSA Date of last positivie culture/infection: 04/20/15 MDRO Source:: Left Axilla Past Surgical History: Adenoidectomy, Back Surgery, Cholecystectomy, Orthopedic Surgery, Tonsillectomy Additional Past Surgical History / Comment(s): bilateral foot surgery d/t rsd, numerous pain clinic procedures, nerve stimulator in back to tx RSD placed in Nov 11 2015, pain pump placement, replacement of stimulator 06/2021 Past Anesthesia/Blood Transfusion Reactions: Previous Problems w/ Anesthesia Additional Past Anesthesia/Blood Transfusion Reaction / Comment(s): Pt recieved blood when she was 2 yrs old after tonsillectomy. WHEN BABY HEART STOPPED TWICE- PT STATED SHE WAS ALLERGIC TO ETHER. Past Psychological History: Anxiety, Bipolar, Depression, PTSD Smoking Status: Never smoker Past Alcohol Use History: None Reported Past Drug Use History: Marijuana - Past Family History Father History Unknown: Yes Family Medical History: Diabetes Mellitus Mother Family Medical History: Cancer, CVA/TIA, Diabetes Mellitus, Myocardial Infarction ([place]) Additional Family Medical History / Comment(s): Mother has had 5 CVAs, 3 MIs and UTERINE CANCER General Exam Limitations: no limitations General appearance: alert, in no apparent distress (Well-developed, well- nourished female who appears mildly uncomfortable, but in no apparent distress. Initial temperature 97.9, pulse 94, respirations 18, pressure 159/102, pulse ox 97% on room air.) Respiratory exam: Present: normal lung sounds bilaterally. Absent: respiratory distress, wheezes, rales, rhonchi, stridor Cardiovascular Exam: Present: regular rate, normal rhythm, normal heart sounds. Absent: systolic murmur, diastolic murmur, rubs, gallop, clicks GI/Abdominal exam: Present: soft, normal bowel sounds. Absent: distended, tenderness, guarding, rebound, rigid Right Hip exam: Present: normal inspection, full ROM Upper Leg exam: Present: normal inspection, full ROM Knee exam: Present: normal inspection, full ROM, tenderness (generalized pain, right knee; mild discomfort with palpation), full knee extension. Absent: swelling, abrasion, deformity Lower Leg exam: Present: normal inspection, full ROM, tenderness (nonlocalized, mild tenderness, report throbbing pain mostly unaffected by palpation or ambulation.). Absent: swelling, abrasion, deformity, erythema Neurovascular tendon exam: Present: no vascular compromise. Absent: pulse deficit, abnormal cap refill, motor deficit, sensory deficit, tendon deficit, extremity cold to touch, pallor Gait: observed and normal Back exam: Present: normal inspection, full ROM Neurological exam: Present: alert, oriented X3, CN II-XII intact, normal gait Psychiatric exam: Present: normal affect, normal mood Skin exam: Present: warm, dry, intact, normal color. Absent: rash Course Vital Signs 10/31/21 02:42 Temperature 97.9 F Pulse Rate 94 Respiratory 18 Rate Blood Pressure 159/102 O2 Sat by Pulse 97 Oximetry Medical Decision Making - Medical Decision Making This is a 35-year-old female with chronic pain due to complex regional pain syndrome who presents to the emergency Department with complaints of severe right leg pain uncontrolled with her pain pump and Munday. Physical exam findings are unremarkable. No imaging required. Patient was given IM Toradol, Benadryl, and Dilaudid with improvement. She is discharged home to follow up with her neurologist as scheduled. Return parameters were discussed in detail. Patient verbalizes understanding and agrees with this plan. Attending: Evelyne. Disposition Clinical Impression: Chronic pain Disposition: HOME SELF-CARE Condition: Stable Instructions (If sedation given, give patient instructions): Chronic Pain (ED) Additional Instructions: Continue your home medications as prescribed. Follow-up with your neurologist as scheduled. Return to the emergency department with any new, worsening, or concerning symptoms. Is patient prescribed a controlled substance at d/c from ED?: No Referrals: China Doyle MD [Primary Care Provider] - 1-2 days
== END 2021-10-31 04:15 | disposition home or self-care (01) ==
LOC: EC 02:39
DX: G89.29 Other chronic pain (principal); M79.604 Pain in right leg; J45.909 Unspecified asthma, uncomplicated; K21.9 Gastro-esophageal reflux disease without esophagitis; E78.5 Hyperlipidemia, unspecified; M19.90 Unspecified osteoarthritis, unspecified site; F41.9 Anxiety disorder, unspecified; F31.9 Bipolar disorder, unspecified; F12.90 Cannabis use, unspecified, uncomplicated; Z88.0 Allergy status to penicillin; Z88.8 Allergy status to other drugs, medicaments and biological substances; Z88.4 Allergy status to anesthetic agent; Z91.013 Allergy to seafood; Z88.6 Allergy status to analgesic agent; Z88.2 Allergy status to sulfonamides; Z79.899 Other long term (current) drug therapy; Z79.51 Long term (current) use of inhaled steroids
CPT/HCPCS: 99283; 96372 ×3; J1200; J1170; J1885

== ENCOUNTER 2021-11-03 17:40 | Emergency (ER) | payer MEDICARE, OTHER ==
[2021-11-03 17:45] VITALS: TEMP 98
--- NOTE | 2021-11-03 18:21 | ED ---
General Adult HPI - General Chief complaint: Head Injury Stated complaint: Fall, Face Injury, Head Injury Time Seen by Provider: 11/03/21 18:10 Source: patient Mode of arrival: ambulatory Limitations: no limitations - History of Present Illness Initial comments: Dictation was produced using [employer] dictation software. please excuse any grammatical, word or spelling errors. Chief Complaint: 35-year-old male presents to the emergency room for facial pain, left shoulder pain and neck pain History of Present Illness: She 35-year-old female she is well-known to emergency department for multiple visitations for myriad of complaints. Patient states that she tripped and fell in her kitchen. She states she hit her face on the counter. After the fall she noticed an abrasion to her left axillary area. She states that she feels like she may have scraped her skin on something while falling down. Patient complains of some mild right-sided neck pain. The ROS documented in this emergency department record has been reviewed and confirmed by me. Those systems with pertinent positive or negative responses have been documented in the HPI. All other systems are other negative and/or noncontributory. PHYSICAL EXAM: General Impression: Alert and oriented x3, not in acute distress HEENT: Normocephalic atraumatic, extra-ocular movements intact, pupils equal and reactive to light bilaterally, mucous membranes moist. Cardiovascular: Heart regular rate and rhythm Chest: Able to complete full sentences, no retractions, no tachypnea Abdomen: abdomen soft, non-tender, non-distended, no organomegaly Musculoskeletal: Pulses present and equal in all extremities, no peripheral edema Motor: no focal deficits noted Neurological: CN II-XII grossly intact, no focal motor or sensory deficits noted Skin: Intact with no visualized rashes Psych: Normal affect and mood ED course: 35-year-old female presents emergency department with facial pain, neck pain and left shoulder pain after fall. As upon arrival are within acceptable limits. Computed tomography scan of facial is no acute processes. Computed tomography scan of the head and C-spine shows no acute processes. Shoulder x-rays negative. Patient observed in emergency department for approximately 2 hours and 30 minutes. Patient stable medical condition will be discharge. - Related Data Home Medications Medication Instructions Recorded Confirmed Medroxyprogesterone Acetate 150 mg IM Q84D 11/22/13 10/07/20 [Depo-Provera] rOPINIRole HCL [Requip] 1 mg PO BID@0900,1200 11/22/13 10/07/20 Pentosan Polysulfate Sodium 100 mg PO DAILY 02/10/15 10/07/20 [Elmiron] HYDROcodone/APAP 7.5-325MG [[place] 1 tab PO BID 07/20/16 10/07/20 7.5-325] Paliperidone IM Pt Own [Invega 117 mg IM Q28D 07/20/16 10/07/20 Sustenna] amantadine HCL [Symmetrel] 100 mg PO BID 11/21/16 10/07/20 Albuterol Sulfate [Proair Hfa] 2 puff INHALATION RT-QID PRN 01/13/18 10/07/20 Butalb/Acetaminophen/Caffeine 1 tab PO Q8H PRN 01/13/18 10/07/20 [Fioricet 50-325-40] Fluticasone Propionate [Flovent 1 puff INHALATION RT-BID 01/13/18 10/07/20 Hfa 110 mcg] gemfibroziL [Lopid] 600 mg PO BID 01/13/18 10/07/20 Gabapentin [Neurontin] 300 mg PO TID 03/11/18 10/07/20 Gabapentin [Neurontin] 600 mg PO TID 09/16/19 10/07/20 Omeprazole [PriLOSEC] 40 mg PO DAILY 09/16/19 10/07/20 rOPINIRole HCL [Requip] 2 mg PO HS 09/16/19 10/07/20 traZODone HCL 300 mg PO HS 09/16/19 10/07/20 hydrOXYzine pamoate [hydrOXYzine 25 mg PO BID 04/13/20 10/07/20 PAMOATE] Cyclobenzaprine [Flexeril] 10 mg PO TID PRN 08/16/20 10/07/20 Fentanyl/Bupivcaine Pain Pump 1 dose INTRATHECA CONTINUOUS 08/16/20 10/07/20 Ibuprofen [Motrin] 600 mg PO TID PRN 10/07/20 10/07/20 diphenhydrAMINE [Benadryl] 50 mg PO DAILY PRN 10/07/20 10/07/20 Previous Rx's Medication Instructions Recorded Erythromycin Ophth Oint [Romycin 1 applic RIGHT EYE QID #1 bottle 10/03/20 Ophth Oint] Ondansetron Odt [Zofran Odt] 4 mg PO Q8HR PRN #14 tab 10/16/20 Ondansetron Odt [Zofran Odt] 4 mg PO Q8HR PRN #10 tab 06/21/21 predniSONE [Deltasone] 20 mg PO BID #10 tab 09/08/21 Allergies Allergy/AdvReac Type Severity Reaction Status Date / Time azithromycin Allergy Rash/Hives Verified 11/03/21 17:45 [From Zithromax Z-Mehrdad] cimetidine [From Tagamet] Allergy Rash/Hives Verified 11/03/21 17:45 ether [Ether] Allergy Anaphylaxis Verified 11/03/21 17:45 Fish Containing Products Allergy Anaphylaxis Verified 11/03/21 17:45 [Fish] ibuprofen [From Motrin] Allergy Rash/Hives Verified 11/03/21 17:45 ketorolac tromethamine Allergy Rash/Hives Verified 11/03/21 17:45 [From Toradol] morphine Allergy Unknown Verified 11/03/21 17:45 ziprasidone HCl [From Geodon] Allergy Extrapyramidal Verified 11/03/21 17:45 Symptoms ciprofloxacin [From Cipro] AdvReac Rash/Hives Verified 11/03/21 17:45 fluphenazine HCl AdvReac Extrapyramidal Verified 11/03/21 17:45 [From Prolixin] Symptoms haloperidol [From Haldol] AdvReac Extrapyramidal Verified 11/03/21 17:45 Symptoms Sulfa (Sulfonamide AdvReac Nausea & Verified 11/03/21 17:45 Antibiotics) Vomiting Review of Systems ROS Statement: Those systems with pertinent positive or pertinent negative responses have been documented in the HPI. ROS Other: All systems not noted in ROS Statement are negative. Past Medical History Past Medical History: Asthma, GERD/Reflux, Hyperlipidemia, Musculoskeletal Disorder, Neurologic Disorder, Osteoarthritis (OA), Seizure Disorder Additional Past Medical History / Comment(s): RSD-DERIC FEET, INTERSTITIAL CYSTITIS, BRONCHITIS, HEMORRHOIDS,MIGRAINES, INSOMNIA. VERTIGO, last seizure 4 years ago, complex regional pain syndrome, RLS. History of Any Multi-Drug Resistant Organisms: MRSA Date of last positivie culture/infection: 04/20/15 MDRO Source:: Left Axilla Past Surgical History: Adenoidectomy, Back Surgery, Cholecystectomy, Orthopedic Surgery, Tonsillectomy Additional Past Surgical History / Comment(s): bilateral foot surgery d/t rsd, numerous pain clinic procedures, nerve stimulator in back to tx RSD placed in Nov 11 2015, pain pump placement, replacement of stimulator 06/2021 Past Anesthesia/Blood Transfusion Reactions: Previous Problems w/ Anesthesia Additional Past Anesthesia/Blood Transfusion Reaction / Comment(s): Pt recieved blood when she was 2 yrs old after tonsillectomy. WHEN BABY HEART STOPPED TWICE- PT STATED SHE WAS ALLERGIC TO ETHER. Past Psychological History: Anxiety, Bipolar, Depression, PTSD Smoking Status: Never smoker Past Alcohol Use History: None Reported Past Drug Use History: Marijuana - Past Family History Father History Unknown: Yes Family Medical History: Diabetes Mellitus Mother Family Medical History: Cancer, CVA/TIA, Diabetes Mellitus, Myocardial Infarction ([place]) Additional Family Medical History / Comment(s): Mother has had 5 CVAs, 3 MIs and UTERINE CANCER General Exam Limitations: no limitations Course Vital Signs 11/03/21 17:43 Temperature 98 F Pulse Rate 97 Respiratory 20 Rate Blood Pressure 148/103 O2 Sat by Pulse 98 Oximetry Disposition Clinical Impression: Facial contusion, Cervical strain, Shoulder strain Disposition: HOME SELF-CARE Condition: Good Instructions (If sedation given, give patient instructions): Fall Prevention (ED) Is patient prescribed a controlled substance at d/c from ED?: No Referrals: China Doyle MD [Primary Care Provider] - 1-2 days Time of Disposition: 20:12
[2021-11-03] MEDS ORDERED: KETOROLAC 15 MG/ML 1 ML VIAL IVP STA (19:05)
[2021-11-03] MEDS ORDERED: KETOROLAC 15 MG/ML 1 ML VIAL IM STA (19:35)
[2021-11-03] MEDS ORDERED: diphenhydrAMINE 50 MG/ML 1 ML VIAL IM STA (19:37)
--- NOTE | 2021-11-03 19:38 | CT ---
EXAMINATION TYPE: CT brain cspine wo con DATE OF EXAM: 11/03/2021 COMPARISON: HISTORY: pain after fall. facial swelling. CT DLP: 1181.8 mGycm Automated exposure control for dose reduction was used. Images obtained of the brain and cervical spine with no contrast. Ventricles and sulci appear normal. There is no mass effect or midline shift. No sign of intracranial hemorrhage. Calvarium is intact. Skull base is intact. There is normal aeration of the mastoid sinus es. There is some straightening of the cervical spine. No compression fracture. Facet joints are intact. Prevertebral soft tissues are intact. Disc spaces are normal. IMPRESSION: Negative CT scan of the cervical spine. Negative CT scan of the brain.
--- NOTE | 2021-11-03 19:47 | CT ---
EXAMINATION TYPE: CT facial bones wo con DATE OF EXAM: 11/03/2021 COMPARISON: None HISTORY: pain after fall hiting face on counter. facial swelling. CT DLP: 1181.8 mGycm Automated exposure control for dose reduction was used. Images obtained from the bottom of the mandible to the top of the frontal sinuses with no contrast. Mandibular ring is intact. Temporomandibular joints are intact. Zygomatic arches appear normal. Nasal bone is intact. Maxilla is intact. Orbital margins are intact. There is no evidence of retro-orbital mass. There is fairly normal aeration of the paranasal sinuses. No evidence of orbital blowout fract ure. No evidence of soft tissue mass. IMPRESSION: Negative CT scan of the facial bones. No fracture seen.
--- NOTE | 2021-11-03 20:06 | XR ---
EXAMINATION TYPE: XR shoulder complete LT DATE OF EXAM: 11/03/2021 COMPARISON: NONE HISTORY: Shoulder pain TECHNIQUE: 3 views FINDINGS: There is no fracture nor dislocation. Joint spaces are normal. There are no pathologic calc ifications. IMPRESSION: Negative left shoulder exam.
[2021-11-03 20:34] VITALS: BP 143/97; PULSE 86; RESP 16
== END 2021-11-03 20:34 | disposition home or self-care (01) ==
LOC: EC 17:40
DX: S00.83XA Contusion of other part of head, initial encounter (principal); S16.1XXA Strain of muscle, fascia and tendon at neck level, initial encounter; S46.912A Strain of unspecified muscle, fascia and tendon at shoulder and upper arm level, left arm, initial encounter; J45.909 Unspecified asthma, uncomplicated; K21.9 Gastro-esophageal reflux disease without esophagitis; Z79.83 Long term (current) use of bisphosphonates; E78.5 Hyperlipidemia, unspecified; Z88.1 Allergy status to other antibiotic agents; Z88.6 Allergy status to analgesic agent; Z88.3 Allergy status to other anti-infective agents; Z88.5 Allergy status to narcotic agent; Z88.2 Allergy status to sulfonamides; W01.0XXA Fall on same level from slipping, tripping and stumbling without subsequent striking against object, initial encounter
CPT/HCPCS: 73030; 72125; 70486; 70450; 99284; 96372; J1200; J1885

== ENCOUNTER 2021-11-09 18:36 | Emergency (ER) | payer MEDICARE, OTHER ==
[2021-11-09 19:12] VITALS: BP 115/73; PULSE 97; RESP 16; TEMP 97.6
[2021-11-09] MEDS ORDERED: KETOROLAC 15 MG/ML 1 ML VIAL IM STA (20:42)
[2021-11-09] MEDS ORDERED: diphenhydrAMINE 50 MG/ML 1 ML VIAL IM STA (20:43)
--- NOTE | 2021-11-09 20:45 | ED ---
Extremity Problem HPI - General Chief complaint: Extremity Problem,Nontraumatic Stated complaint: bilat leg pain Time Seen by Provider: 11/09/21 20:22 Source: patient Mode of arrival: ambulatory Limitations: no limitations - History of Present Illness Initial comments: This 36 over presents with a complaint of some bilateral lower extremity pain. She states that she has regional complex pain syndrome. She is well-known to the emergency department for frequent visits attempting pain management. She denies any injuries. There is no fevers or chills. She is requesting pain medication. No other complaints or modifying factors. - Related Data Home Medications Medication Instructions Recorded Confirmed Medroxyprogesterone Acetate 150 mg IM Q84D 11/22/13 10/07/20 [Depo-Provera] rOPINIRole HCL [Requip] 1 mg PO BID@0900,1200 11/22/13 10/07/20 Pentosan Polysulfate Sodium 100 mg PO DAILY 02/10/15 10/07/20 [Elmiron] HYDROcodone/APAP 7.5-325MG [[place] 1 tab PO BID 07/20/16 10/07/20 7.5-325] Paliperidone IM Pt Own [Invega 117 mg IM Q28D 07/20/16 10/07/20 Sustenna] amantadine HCL [Symmetrel] 100 mg PO BID 11/21/16 10/07/20 Albuterol Sulfate [Proair Hfa] 2 puff INHALATION RT-QID PRN 01/13/18 10/07/20 Butalb/Acetaminophen/Caffeine 1 tab PO Q8H PRN 01/13/18 10/07/20 [Fioricet 50-325-40] Fluticasone Propionate [Flovent 1 puff INHALATION RT-BID 01/13/18 10/07/20 Hfa 110 mcg] gemfibroziL [Lopid] 600 mg PO BID 01/13/18 10/07/20 Gabapentin [Neurontin] 300 mg PO TID 03/11/18 10/07/20 Gabapentin [Neurontin] 600 mg PO TID 09/16/19 10/07/20 Omeprazole [PriLOSEC] 40 mg PO DAILY 09/16/19 10/07/20 rOPINIRole HCL [Requip] 2 mg PO HS 09/16/19 10/07/20 traZODone HCL 300 mg PO HS 09/16/19 10/07/20 hydrOXYzine pamoate [hydrOXYzine 25 mg PO BID 04/13/20 10/07/20 PAMOATE] Cyclobenzaprine [Flexeril] 10 mg PO TID PRN 08/16/20 10/07/20 Fentanyl/Bupivcaine Pain Pump 1 dose INTRATHECA CONTINUOUS 08/16/20 10/07/20 Ibuprofen [Motrin] 600 mg PO TID PRN 10/07/20 10/07/20 diphenhydrAMINE [Benadryl] 50 mg PO DAILY PRN 10/07/20 10/07/20 Previous Rx's Medication Instructions Recorded Erythromycin Ophth Oint [Romycin 1 applic RIGHT EYE QID #1 bottle 10/03/20 Ophth Oint] Ondansetron Odt [Zofran Odt] 4 mg PO Q8HR PRN #14 tab 10/16/20 Ondansetron Odt [Zofran Odt] 4 mg PO Q8HR PRN #10 tab 06/21/21 predniSONE [Deltasone] 20 mg PO BID #10 tab 09/08/21 Allergies Allergy/AdvReac Type Severity Reaction Status Date / Time azithromycin Allergy Rash/Hives Verified 11/09/21 19:12 [From Zithromax Z-Mehrdad] cimetidine [From Tagamet] Allergy Rash/Hives Verified 11/09/21 19:12 ether [Ether] Allergy Anaphylaxis Verified 11/09/21 19:12 Fish Containing Products Allergy Anaphylaxis Verified 11/09/21 19:12 [Fish] ibuprofen [From Motrin] Allergy Rash/Hives Verified 11/09/21 19:12 morphine Allergy Unknown Verified 11/09/21 19:12 ziprasidone HCl [From Geodon] Allergy Extrapyramidal Verified 11/09/21 19:12 Symptoms ciprofloxacin [From Cipro] AdvReac Rash/Hives Verified 11/09/21 19:12 fluphenazine HCl AdvReac Extrapyramidal Verified 11/09/21 19:12 [From Prolixin] Symptoms haloperidol [From Haldol] AdvReac Extrapyramidal Verified 11/09/21 19:12 Symptoms Sulfa (Sulfonamide AdvReac Nausea & Verified 11/09/21 19:12 Antibiotics) Vomiting Review of Systems ROS Statement: Those systems with pertinent positive or pertinent negative responses have been documented in the HPI. ROS Other: All systems not noted in ROS Statement are negative. Past Medical History Past Medical History: Asthma, GERD/Reflux, Hyperlipidemia, Musculoskeletal Disorder, Neurologic Disorder, Osteoarthritis (OA), Seizure Disorder Additional Past Medical History / Comment(s): RSD-DERIC FEET, INTERSTITIAL CYSTITIS, BRONCHITIS, HEMORRHOIDS,MIGRAINES, INSOMNIA. VERTIGO, last seizure 4 years ago, complex regional pain syndrome, RLS. History of Any Multi-Drug Resistant Organisms: MRSA Date of last positivie culture/infection: 04/20/15 MDRO Source:: Left Axilla Past Surgical History: Adenoidectomy, Back Surgery, Cholecystectomy, Orthopedic Surgery, Tonsillectomy Additional Past Surgical History / Comment(s): bilateral foot surgery d/t rsd, numerous pain clinic procedures, nerve stimulator in back to tx RSD placed in Nov 11 2015, pain pump placement, replacement of stimulator 06/2021 Past Anesthesia/Blood Transfusion Reactions: Previous Problems w/ Anesthesia Additional Past Anesthesia/Blood Transfusion Reaction / Comment(s): Pt recieved blood when she was 2 yrs old after tonsillectomy. WHEN BABY HEART STOPPED TWICE- PT STATED SHE WAS ALLERGIC TO ETHER. Past Psychological History: Anxiety, Bipolar, Depression, PTSD Smoking Status: Never smoker Past Alcohol Use History: None Reported Past Drug Use History: Marijuana - Past Family History Father History Unknown: Yes Family Medical History: Diabetes Mellitus Mother Family Medical History: Cancer, CVA/TIA, Diabetes Mellitus, Myocardial Infarction ([place]) Additional Family Medical History / Comment(s): Mother has had 5 CVAs, 3 MIs and UTERINE CANCER General Exam Limitations: no limitations General appearance: alert, in no apparent distress Extremities exam: Present: normal inspection, full ROM, tenderness (Mild diffuse tenderness to bilateral legs. No swelling identified.), normal capillary refill. Absent: pedal edema, joint swelling Neurological exam: Present: oriented X3. Absent: motor sensory deficit Psychiatric exam: Present: normal affect, anxious Skin exam: Present: intact. Absent: rash Course Vital Signs 11/09/21 19:09 Temperature 97.6 F Pulse Rate 97 Respiratory 16 Rate Blood Pressure 115/73 O2 Sat by Pulse 98 Oximetry Medical Decision Making - Medical Decision Making The patient was seen and examined. It appears as though she is here quite frequently for similar. It is felt as though she is essentially here for pain management. She is agreeable to Toradol injection as well as Benadryl. She states that she can easily take Toradol and has done so many times previously but requires Benadryl with it. Toradol is removed from her ALLERGY list. She is given 30 mg of Toradol IM as well as 50 mg Benadryl IM. Subsequently discharge instructed to follow-up with her doctors for further pain management. Disposition Clinical Impression: Chronic pain syndrome Disposition: HOME SELF-CARE Condition: Good Instructions (If sedation given, give patient instructions): Chronic Pain (ED) Is patient prescribed a controlled substance at d/c from ED?: No Referrals: China Doyle MD [Primary Care Provider] - 1-2 days Time of Disposition: 20:45
== END 2021-11-09 21:01 | disposition home or self-care (01) ==
LOC: EC 18:36
DX: G89.4 Chronic pain syndrome (principal); J45.909 Unspecified asthma, uncomplicated; K21.9 Gastro-esophageal reflux disease without esophagitis; E78.5 Hyperlipidemia, unspecified; M19.90 Unspecified osteoarthritis, unspecified site; Z86.69 Personal history of other diseases of the nervous system and sense organs; Z79.51 Long term (current) use of inhaled steroids; Z79.891 Long term (current) use of opiate analgesic; Z79.899 Other long term (current) drug therapy; Z88.1 Allergy status to other antibiotic agents; Z88.8 Allergy status to other drugs, medicaments and biological substances; Z88.4 Allergy status to anesthetic agent; Z91.013 Allergy to seafood; Z88.6 Allergy status to analgesic agent; Z88.7 Allergy status to serum and vaccine; Z88.2 Allergy status to sulfonamides
CPT/HCPCS: 99283; 96372; J1200; J1885

== ENCOUNTER 2021-11-15 23:48 | Emergency (ER) | payer MEDICARE, OTHER ==
[2021-11-15 23:51] VITALS: BP 140/84; PULSE 101; RESP 16; TEMP 98.5
[2021-11-16] MEDS ORDERED: ORPHENADRINE 30 MG/ML 2 ML VIAL IM STA (00:59)
[2021-11-16] MEDS ORDERED: KETOROLAC 15 MG/ML 1 ML VIAL IM STA (00:59)
--- NOTE | 2021-11-16 01:54 | ED ---
Back Pain HPI - General Chief Complaint: Back Pain/Injury Stated Complaint: leg pain Time Seen by Provider: 11/16/21 00:23 Source: patient Limitations: no limitations - History of Present Illness MD Complaint: back pain -: hour(s) Similar Symptoms Previously: Yes Place: home Radiation: left leg Severity: severe Quality: aching Consistency: constant Worsens With: sitting upright - Related Data Home Medications Medication Instructions Recorded Confirmed Medroxyprogesterone Acetate 150 mg IM Q84D 11/22/13 10/07/20 [Depo-Provera] rOPINIRole HCL [Requip] 1 mg PO BID@0900,1200 11/22/13 10/07/20 Pentosan Polysulfate Sodium 100 mg PO DAILY 02/10/15 10/07/20 [Elmiron] HYDROcodone/APAP 7.5-325MG [[place] 1 tab PO BID 07/20/16 10/07/20 7.5-325] Paliperidone IM Pt Own [Invega 117 mg IM Q28D 07/20/16 10/07/20 Sustenna] amantadine HCL [Symmetrel] 100 mg PO BID 11/21/16 10/07/20 Albuterol Sulfate [Proair Hfa] 2 puff INHALATION RT-QID PRN 01/13/18 10/07/20 Butalb/Acetaminophen/Caffeine 1 tab PO Q8H PRN 01/13/18 10/07/20 [Fioricet 50-325-40] Fluticasone Propionate [Flovent 1 puff INHALATION RT-BID 01/13/18 10/07/20 Hfa 110 mcg] gemfibroziL [Lopid] 600 mg PO BID 01/13/18 10/07/20 Gabapentin [Neurontin] 300 mg PO TID 03/11/18 10/07/20 Gabapentin [Neurontin] 600 mg PO TID 09/16/19 10/07/20 Omeprazole [PriLOSEC] 40 mg PO DAILY 09/16/19 10/07/20 rOPINIRole HCL [Requip] 2 mg PO HS 09/16/19 10/07/20 traZODone HCL 300 mg PO HS 09/16/19 10/07/20 hydrOXYzine pamoate [hydrOXYzine 25 mg PO BID 04/13/20 10/07/20 PAMOATE] Cyclobenzaprine [Flexeril] 10 mg PO TID PRN 08/16/20 10/07/20 Fentanyl/Bupivcaine Pain Pump 1 dose INTRATHECA CONTINUOUS 08/16/20 10/07/20 Ibuprofen [Motrin] 600 mg PO TID PRN 10/07/20 10/07/20 diphenhydrAMINE [Benadryl] 50 mg PO DAILY PRN 10/07/20 10/07/20 Previous Rx's Medication Instructions Recorded Erythromycin Ophth Oint [Romycin 1 applic RIGHT EYE QID #1 bottle 10/03/20 Ophth Oint] Ondansetron Odt [Zofran Odt] 4 mg PO Q8HR PRN #14 tab 10/16/20 Ondansetron Odt [Zofran Odt] 4 mg PO Q8HR PRN #10 tab 06/21/21 predniSONE [Deltasone] 20 mg PO BID #10 tab 09/08/21 Cephalexin [Keflex] 500 mg PO Q8HR 7 Days #21 cap 11/25/21 Fluconazole [Diflucan] 150 mg PO ONCE #1 tab 11/25/21 Allergies Allergy/AdvReac Type Severity Reaction Status Date / Time azithromycin Allergy Rash/Hives Verified 11/25/21 14:03 [From Zithromax Z-Mehrdad] cimetidine [From Tagamet] Allergy Rash/Hives Verified 11/25/21 14:03 ether [Ether] Allergy Anaphylaxis Verified 11/25/21 14:03 Fish Containing Products Allergy Anaphylaxis Verified 11/25/21 14:03 [Fish] ibuprofen [From Motrin] Allergy Rash/Hives Verified 11/25/21 14:03 morphine Allergy Unknown Verified 11/25/21 14:03 ziprasidone HCl [From Geodon] Allergy Extrapyramidal Verified 11/25/21 14:03 Symptoms ciprofloxacin [From Cipro] AdvReac Rash/Hives Verified 11/25/21 14:03 fluphenazine HCl AdvReac Extrapyramidal Verified 11/25/21 14:03 [From Prolixin] Symptoms haloperidol [From Haldol] AdvReac Extrapyramidal Verified 11/25/21 14:03 Symptoms Sulfa (Sulfonamide AdvReac Nausea & Verified 11/25/21 14:03 Antibiotics) Vomiting Review of Systems ROS Statement: Those systems with pertinent positive or pertinent negative responses have been documented in the HPI. ROS Other: All systems not noted in ROS Statement are negative. Constitutional: Denies: fever, weakness Gastrointestinal: Denies: abdominal pain Musculoskeletal: Reports: as per HPI, back pain Skin: Denies: rash Neurological: Reports: numbness. Denies: headache, weakness Past Medical History Past Medical History: Asthma, GERD/Reflux, Hyperlipidemia, Musculoskeletal Disorder, Neurologic Disorder, Osteoarthritis (OA), Seizure Disorder Additional Past Medical History / Comment(s): RSD-DERIC FEET, INTERSTITIAL CYSTITIS, BRONCHITIS, HEMORRHOIDS,MIGRAINES, INSOMNIA. VERTIGO, last seizure 4 years ago, complex regional pain syndrome, RLS. History of Any Multi-Drug Resistant Organisms: MRSA Date of last positivie culture/infection: 04/20/15 MDRO Source:: Left Axilla Past Surgical History: Adenoidectomy, Back Surgery, Cholecystectomy, Orthopedic Surgery, Tonsillectomy Additional Past Surgical History / Comment(s): bilateral foot surgery d/t rsd, numerous pain clinic procedures, nerve stimulator in back to tx RSD placed in Nov 11 2015, pain pump placement, replacement of stimulator 06/2021 Past Anesthesia/Blood Transfusion Reactions: Previous Problems w/ Anesthesia Additional Past Anesthesia/Blood Transfusion Reaction / Comment(s): Pt recieved blood when she was 2 yrs old after tonsillectomy. WHEN BABY HEART STOPPED TWICE- PT STATED SHE WAS ALLERGIC TO ETHER. Past Psychological History: Anxiety, Bipolar, Depression, PTSD Smoking Status: Never smoker Past Alcohol Use History: None Reported Past Drug Use History: Marijuana - Past Family History Father History Unknown: Yes Family Medical History: Diabetes Mellitus Mother Family Medical History: Cancer, CVA/TIA, Diabetes Mellitus, Myocardial Infarction ([place]) Additional Family Medical History / Comment(s): Mother has had 5 CVAs, 3 MIs and UTERINE CANCER General Exam Limitations: no limitations General appearance: alert, in no apparent distress GI/Abdominal exam: Present: soft. Absent: distended, tenderness, pulsatile mass Back exam: Present: normal inspection, paraspinal tenderness. Absent: CVA tenderness (R), CVA tenderness (L), vertebral tenderness Neurological exam: Present: alert, reflexes normal. Absent: motor sensory deficit Skin exam: Present: warm, dry, intact, normal color. Absent: rash Course Vital Signs 11/15/21 23:49 Temperature 98.5 F Pulse Rate 101 H Respiratory 16 Rate Blood Pressure 140/84 O2 Sat by Pulse 98 Oximetry Disposition Clinical Impression: Chronic pain Disposition: HOME SELF-CARE Condition: Good Instructions (If sedation given, give patient instructions): Chronic Back Pain (DC) Is patient prescribed a controlled substance at d/c from ED?: No Referrals: China Doyle MD [Primary Care Provider] - 1-2 days Katherine Adame MD [STAFF PHYSICIAN] - 1-2 days
[2021-11-16] MEDS ORDERED: HYDROcodone/APAP 10-325MG 1 EACH TAB PO ONE (02:25)
== END 2021-11-16 02:30 | disposition home or self-care (01) ==
LOC: EC 23:48
DX: G89.4 Chronic pain syndrome (principal); J45.909 Unspecified asthma, uncomplicated; K21.9 Gastro-esophageal reflux disease without esophagitis; E78.5 Hyperlipidemia, unspecified; M19.90 Unspecified osteoarthritis, unspecified site; F41.9 Anxiety disorder, unspecified; F31.9 Bipolar disorder, unspecified; F12.90 Cannabis use, unspecified, uncomplicated; Z88.1 Allergy status to other antibiotic agents; Z88.8 Allergy status to other drugs, medicaments and biological substances; Z91.013 Allergy to seafood; Z88.6 Allergy status to analgesic agent; Z88.2 Allergy status to sulfonamides; Z79.51 Long term (current) use of inhaled steroids; Z79.899 Other long term (current) drug therapy
CPT/HCPCS: 99283; 96372 ×2; J2360; J1885

== ENCOUNTER 2021-11-16 10:36 | Emergency (ER) | payer MEDICARE, OTHER ==
[2021-11-16 10:46] VITALS: BP 112/59; PULSE 94; RESP 20; TEMP 98
[2021-11-16] MEDS ORDERED: diphenhydrAMINE 50 MG/ML 1 ML VIAL IVP STA (11:24)
[2021-11-16] MEDS ORDERED: KETOROLAC 15 MG/ML 1 ML VIAL IVP STA (11:24)
--- NOTE | 2021-11-16 11:25 | ED ---
General Adult HPI - General Chief complaint: Extremity Problem,Nontraumatic Stated complaint: leg pain Time Seen by Provider: 11/16/21 10:56 Source: patient, RN notes reviewed, old records reviewed Mode of arrival: ambulatory Limitations: no limitations - History of Present Illness Initial comments: Patient is a 36-year-old female well known to the emergency room presents back to the emergency room after being here earlier in the evening with complaints of bilateral lower extremity pain despite her [place] that she takes at home along with her pain pump and spine stimulator. She follows with Dr. Johnson's office in regards to pain management. She was given a dose of Toradol without Benadryl during the night and reports that she developed a slight rash in her pain quickly returned. She denies any trauma changes in her chronic lower extremity pain weakness or any other symptoms of cauda equina. In addition to her complex regional pain syndrome she has past medical history significant for migraines, anxiety, bipolar depression, PTSD, hyperlipidemia, asthma and GERD. - Related Data Home Medications Medication Instructions Recorded Confirmed Medroxyprogesterone Acetate 150 mg IM Q84D 11/22/13 10/07/20 [Depo-Provera] rOPINIRole HCL [Requip] 1 mg PO BID@0900,1200 11/22/13 10/07/20 Pentosan Polysulfate Sodium 100 mg PO DAILY 02/10/15 10/07/20 [Elmiron] HYDROcodone/APAP 7.5-325MG [[place] 1 tab PO BID 07/20/16 10/07/20 7.5-325] Paliperidone IM Pt Own [Invega 117 mg IM Q28D 07/20/16 10/07/20 Sustenna] amantadine HCL [Symmetrel] 100 mg PO BID 11/21/16 10/07/20 Albuterol Sulfate [Proair Hfa] 2 puff INHALATION RT-QID PRN 01/13/18 10/07/20 Butalb/Acetaminophen/Caffeine 1 tab PO Q8H PRN 01/13/18 10/07/20 [Fioricet 50-325-40] Fluticasone Propionate [Flovent 1 puff INHALATION RT-BID 01/13/18 10/07/20 Hfa 110 mcg] gemfibroziL [Lopid] 600 mg PO BID 01/13/18 10/07/20 Gabapentin [Neurontin] 300 mg PO TID 03/11/18 10/07/20 Gabapentin [Neurontin] 600 mg PO TID 09/16/19 10/07/20 Omeprazole [PriLOSEC] 40 mg PO DAILY 09/16/19 10/07/20 rOPINIRole HCL [Requip] 2 mg PO HS 09/16/19 10/07/20 traZODone HCL 300 mg PO HS 09/16/19 10/07/20 hydrOXYzine pamoate [hydrOXYzine 25 mg PO BID 04/13/20 10/07/20 PAMOATE] Cyclobenzaprine [Flexeril] 10 mg PO TID PRN 08/16/20 10/07/20 Fentanyl/Bupivcaine Pain Pump 1 dose INTRATHECA CONTINUOUS 08/16/20 10/07/20 Ibuprofen [Motrin] 600 mg PO TID PRN 10/07/20 10/07/20 diphenhydrAMINE [Benadryl] 50 mg PO DAILY PRN 10/07/20 10/07/20 Previous Rx's Medication Instructions Recorded Erythromycin Ophth Oint [Romycin 1 applic RIGHT EYE QID #1 bottle 10/03/20 Ophth Oint] Ondansetron Odt [Zofran Odt] 4 mg PO Q8HR PRN #14 tab 10/16/20 Ondansetron Odt [Zofran Odt] 4 mg PO Q8HR PRN #10 tab 06/21/21 predniSONE [Deltasone] 20 mg PO BID #10 tab 09/08/21 Allergies Allergy/AdvReac Type Severity Reaction Status Date / Time azithromycin Allergy Rash/Hives Verified 11/16/21 10:44 [From Zithromax Z-Mehrdad] cimetidine [From Tagamet] Allergy Rash/Hives Verified 11/16/21 10:44 ether [Ether] Allergy Anaphylaxis Verified 11/16/21 10:44 Fish Containing Products Allergy Anaphylaxis Verified 11/16/21 10:44 [Fish] ibuprofen [From Motrin] Allergy Rash/Hives Verified 11/16/21 10:44 morphine Allergy Unknown Verified 11/16/21 10:44 ziprasidone HCl [From Geodon] Allergy Extrapyramidal Verified 11/16/21 10:44 Symptoms ciprofloxacin [From Cipro] AdvReac Rash/Hives Verified 11/16/21 10:44 fluphenazine HCl AdvReac Extrapyramidal Verified 11/16/21 10:44 [From Prolixin] Symptoms haloperidol [From Haldol] AdvReac Extrapyramidal Verified 11/16/21 10:44 Symptoms Sulfa (Sulfonamide AdvReac Nausea & Verified 11/16/21 10:44 Antibiotics) Vomiting Review of Systems ROS Statement: Those systems with pertinent positive or pertinent negative responses have been documented in the HPI. ROS Other: All systems not noted in ROS Statement are negative. Past Medical History Past Medical History: Asthma, GERD/Reflux, Hyperlipidemia, Musculoskeletal Disorder, Neurologic Disorder, Osteoarthritis (OA), Seizure Disorder Additional Past Medical History / Comment(s): RSD-DERIC FEET, INTERSTITIAL CYSTITIS, BRONCHITIS, HEMORRHOIDS,MIGRAINES, INSOMNIA. VERTIGO, last seizure 4 years ago, complex regional pain syndrome, RLS. History of Any Multi-Drug Resistant Organisms: MRSA Date of last positivie culture/infection: 04/20/15 MDRO Source:: Left Axilla Past Surgical History: Adenoidectomy, Back Surgery, Cholecystectomy, Orthopedic Surgery, Tonsillectomy Additional Past Surgical History / Comment(s): bilateral foot surgery d/t rsd, numerous pain clinic procedures, nerve stimulator in back to tx RSD placed in Nov 11 2015, pain pump placement, replacement of stimulator 06/2021 Past Anesthesia/Blood Transfusion Reactions: Previous Problems w/ Anesthesia Additional Past Anesthesia/Blood Transfusion Reaction / Comment(s): Pt recieved blood when she was 2 yrs old after tonsillectomy. WHEN BABY HEART STOPPED TWICE- PT STATED SHE WAS ALLERGIC TO ETHER. Past Psychological History: Anxiety, Bipolar, Depression, PTSD Smoking Status: Never smoker Past Alcohol Use History: None Reported Past Drug Use History: Marijuana - Past Family History Father History Unknown: Yes Family Medical History: Diabetes Mellitus Mother Family Medical History: Cancer, CVA/TIA, Diabetes Mellitus, Myocardial Infarction ([place]) Additional Family Medical History / Comment(s): Mother has had 5 CVAs, 3 MIs and UTERINE CANCER General Exam Limitations: no limitations General appearance: alert, in no apparent distress Head exam: Present: atraumatic, normocephalic, normal inspection Eye exam: Present: normal appearance, PERRL, EOMI. Absent: scleral icterus, con junctival injection, periorbital swelling ENT exam: Present: normal exam, mucous membranes moist Neck exam: Present: normal inspection Respiratory exam: Present: normal lung sounds bilaterally. Absent: respiratory distress, accessory muscle use Cardiovascular Exam: Present: regular rate, normal rhythm, normal heart sounds. Absent: systolic murmur, diastolic murmur, rubs, gallop, clicks GI/Abdominal exam: Present: soft, normal bowel sounds. Absent: distended, tenderness, guarding, rebound, rigid Extremities exam: Present: normal inspection. Absent: pedal edema, joint swelling Back exam: Present: normal inspection Neurological exam: Present: alert, oriented X3, CN II-XII intact Psychiatric exam: Present: anxious Skin exam: Present: warm, dry, intact, normal color. Absent: rash Course Vital Signs 11/16/21 10:40 Temperature 98.0 F Pulse Rate 94 Respiratory 20 Rate Blood Pressure 112/59 O2 Sat by Pulse 98 Oximetry Medical Decision Making - Medical Decision Making 36 year old female presenting to the emergency room with complaints of worsening bilateral lower extremity pain secondary to regional pain complex syndrome. She is established with pain management. She denies any trauma or new symptoms. No indication for diagnostic imaging or laboratory studies. Will give repeat dose of Toradol 30 mg with Benadryl 50 mg. Advise need for follow-up with pain management for further titration of her current pain management or to receive other controlled substances. She tolerated Toradol and Benadryl IM injection well. Case discussed with Dr. Cheney. Disposition Clinical Impression: Chronic pain syndrome Disposition: HOME SELF-CARE Condition: Stable Instructions (If sedation given, give patient instructions): Pain Management (ED), Chronic Pain (ED), Moderate Sedation (ED) Additional Instructions: Please follow-up with your primary care provider and with pain management for further adjustments in your pain medication regimen. Please return to the Emergency Department if symptoms worsen or any other concerns. Is patient prescribed a controlled substance at d/c from ED?: No Referrals: Mart Rowley MD [Primary Care Provider] - 1-2 days Casper Shannon MD [Medical Doctor] - 1-2 days Time of Disposition: 11:55
[2021-11-16] MEDS ORDERED: diphenhydrAMINE 50 MG/ML 1 ML VIAL IM STA (11:28)
[2021-11-16] MEDS ORDERED: KETOROLAC 15 MG/ML 1 ML VIAL IM STA (11:29)
== END 2021-11-16 12:02 | disposition home or self-care (01) ==
LOC: EC 10:36
DX: G89.4 Chronic pain syndrome (principal); J45.909 Unspecified asthma, uncomplicated; K21.9 Gastro-esophageal reflux disease without esophagitis; E78.5 Hyperlipidemia, unspecified; M19.90 Unspecified osteoarthritis, unspecified site; Z86.69 Personal history of other diseases of the nervous system and sense organs; Z79.51 Long term (current) use of inhaled steroids; Z79.891 Long term (current) use of opiate analgesic; Z79.899 Other long term (current) drug therapy; Z88.1 Allergy status to other antibiotic agents; Z88.9 Allergy status to unspecified drugs, medicaments and biological substances; Z88.4 Allergy status to anesthetic agent; Z91.013 Allergy to seafood; Z88.6 Allergy status to analgesic agent; Z88.8 Allergy status to other drugs, medicaments and biological substances; Z88.7 Allergy status to serum and vaccine; Z88.2 Allergy status to sulfonamides
CPT/HCPCS: 99283; 96372; J1200; J1885

== ENCOUNTER 2021-12-17 22:38 | Emergency (ER) | payer MEDICARE, OTHER ==
[2021-12-17 22:56] VITALS: BP 166/92; PULSE 112; RESP 20; TEMP 99
[2021-12-17] MEDS ORDERED: diphenhydrAMINE 50 MG CAP PO STA (23:43)
[2021-12-17] MEDS ORDERED: cloNIDine 0.2 MG/24HR PATCH TRANSDERM STA (23:43)
[2021-12-17] MEDS ORDERED: HYDROmorphone 1 MG/ML 1 ML SYRINGE IM STA (23:43)
[2021-12-17] MEDS ORDERED: IBUPROFEN 800 MG TAB PO STA (23:43)
[2021-12-17] MEDS ORDERED: PROCHLORPERAZINE 5 MG TAB PO STA (23:43)
--- NOTE | 2021-12-17 23:43 | ED ---
Headache HPI - General Chief Complaint: Headache Stated Complaint: Migraine Time Seen by Provider: 12/17/21 23:43 Source: RN notes reviewed, old records reviewed Mode of arrival: ambulatory Limitations: no limitations - History of Present Illness Initial Comments: This is a 36-year-old female well-known to our emergency prior. She comes in for evaluation of headache. Patient has multiple ER visits for same or similar complaints. No travel history no fevers no trauma MD Complaint: headache, "migraine" -: days(s) Onset Description: gradual Location: frontal Severity: moderate Severity scale (1-10): 5 Quality: constant, similar to previous headaches Consistency: constant, intermittent Worsens With: none Associated Symptoms: nausea Other Symptoms: malaise Treatments Prior to Arrival: none - Related Data Home Medications Medication Instructions Recorded Confirmed Medroxyprogesterone Acetate 150 mg IM Q84D 11/22/13 10/07/20 [Depo-Provera] rOPINIRole HCL [Requip] 1 mg PO BID@0900,1200 11/22/13 10/07/20 Pentosan Polysulfate Sodium 100 mg PO DAILY 02/10/15 10/07/20 [Elmiron] HYDROcodone/APAP 7.5-325MG [[place] 1 tab PO BID 07/20/16 10/07/20 7.5-325] Paliperidone IM Pt Own [Invega 117 mg IM Q28D 07/20/16 10/07/20 Sustenna] amantadine HCL [Symmetrel] 100 mg PO BID 11/21/16 10/07/20 Albuterol Sulfate [Proair Hfa] 2 puff INHALATION RT-QID PRN 01/13/18 10/07/20 Butalb/Acetaminophen/Caffeine 1 tab PO Q8H PRN 01/13/18 10/07/20 [Fioricet 50-325-40] Fluticasone Propionate [Flovent 1 puff INHALATION RT-BID 01/13/18 10/07/20 Hfa 110 mcg] gemfibroziL [Lopid] 600 mg PO BID 01/13/18 10/07/20 Gabapentin [Neurontin] 300 mg PO TID 03/11/18 10/07/20 Gabapentin [Neurontin] 600 mg PO TID 09/16/19 10/07/20 Omeprazole [PriLOSEC] 40 mg PO DAILY 09/16/19 10/07/20 rOPINIRole HCL [Requip] 2 mg PO HS 09/16/19 10/07/20 traZODone HCL 300 mg PO HS 09/16/19 10/07/20 hydrOXYzine pamoate [hydrOXYzine 25 mg PO BID 04/13/20 10/07/20 PAMOATE] Cyclobenzaprine [Flexeril] 10 mg PO TID PRN 08/16/20 10/07/20 Fentanyl/Bupivcaine Pain Pump 1 dose INTRATHECA CONTINUOUS 08/16/20 10/07/20 Ibuprofen [Motrin] 600 mg PO TID PRN 10/07/20 10/07/20 diphenhydrAMINE [Benadryl] 50 mg PO DAILY PRN 10/07/20 10/07/20 Previous Rx's Medication Instructions Recorded Erythromycin Ophth Oint [Romycin 1 applic RIGHT EYE QID #1 bottle 10/03/20 Ophth Oint] Ondansetron Odt [Zofran Odt] 4 mg PO Q8HR PRN #14 tab 10/16/20 Ondansetron Odt [Zofran Odt] 4 mg PO Q8HR PRN #10 tab 06/21/21 predniSONE [Deltasone] 20 mg PO BID #10 tab 09/08/21 Cephalexin [Keflex] 500 mg PO Q8HR 7 Days #21 cap 11/25/21 Fluconazole [Diflucan] 150 mg PO ONCE #1 tab 11/25/21 Allergies Allergy/AdvReac Type Severity Reaction Status Date / Time azithromycin Allergy Rash/Hives Verified 12/17/21 22:57 [From Zithromax Z-Mehrdad] cimetidine [From Tagamet] Allergy Rash/Hives Verified 12/17/21 22:57 ether [Ether] Allergy Anaphylaxis Verified 12/17/21 22:57 Fish Containing Products Allergy Anaphylaxis Verified 12/17/21 22:57 [Fish] ibuprofen [From Motrin] Allergy Rash/Hives Verified 12/17/21 22:57 morphine Allergy Unknown Verified 12/17/21 22:57 ziprasidone HCl [From Geodon] Allergy Extrapyramidal Verified 12/17/21 22:57 Symptoms ciprofloxacin [From Cipro] AdvReac Rash/Hives Verified 09/18/22 22:57 fluphenazine HCl AdvReac Extrapyramidal Verified 12/17/21 22:57 [From Prolixin] Symptoms haloperidol [From Haldol] AdvReac Extrapyramidal Verified 12/17/21 22:57 Symptoms Sulfa (Sulfonamide AdvReac Nausea & Verified 12/17/21 22:57 Antibiotics) Vomiting Review of Systems ROS Statement: Those systems with pertinent positive or pertinent negative responses have been documented in the HPI. ROS Other: All systems not noted in ROS Statement are negative. Past Medical History Past Medical History: Asthma, GERD/Reflux, Hyperlipidemia, Musculoskeletal Disorder, Neurologic Disorder, Osteoarthritis (OA), Seizure Disorder Additional Past Medical History / Comment(s): RSD-DERIC FEET, INTERSTITIAL CYSTITIS, BRONCHITIS, HEMORRHOIDS,MIGRAINES, INSOMNIA. VERTIGO, last seizure 4 years ago, complex regional pain syndrome, RLS. History of Any Multi-Drug Resistant Organisms: MRSA Date of last positivie culture/infection: 04/20/15 MDRO Source:: Left Axilla Past Surgical History: Adenoidectomy, Back Surgery, Cholecystectomy, Orthopedic Surgery, Tonsillectomy Additional Past Surgical History / Comment(s): bilateral foot surgery d/t rsd, numerous pain clinic procedures, nerve stimulator in back to tx RSD placed in Nov 11 2015, pain pump placement, replacement of stimulator 06/2021 Past Anesthesia/Blood Transfusion Reactions: Previous Problems w/ Anesthesia Additional Past Anesthesia/Blood Transfusion Reaction / Comment(s): Pt recieved blood when she was 2 yrs old after tonsillectomy. WHEN BABY HEART STOPPED TWICE- PT STATED SHE WAS ALLERGIC TO ETHER. Past Psychological History: Anxiety, Bipolar, Depression, PTSD Smoking Status: Never smoker Past Alcohol Use History: None Reported Past Drug Use History: Marijuana - Past Family History Father History Unknown: Yes Family Medical History: Diabetes Mellitus Mother Family Medical History: Cancer, CVA/TIA, Diabetes Mellitus, Myocardial Infarction ([place]) Additional Family Medical History / Comment(s): Mother has had 5 CVAs, 3 MIs and UTERINE CANCER General Exam Limitations: no limitations General appearance: anxious Head exam: Present: atraumatic, normocephalic, normal inspection Eye exam: Present: normal appearance, PERRL, EOMI. Absent: scleral icterus, conjunctival injection, periorbital swelling ENT exam: Present: normal exam, mucous membranes moist Neck exam: Present: normal inspection. Absent: tenderness, meningismus, lymphadenopathy Respiratory exam: Present: normal lung sounds bilaterally. Absent: respiratory distress, wheezes, rales, rhonchi, stridor Cardiovascular Exam: Present: normal rhythm, tachycardia, normal heart sounds. Absent: systolic murmur, diastolic murmur, rubs, gallop, clicks GI/Abdominal exam: Present: soft, normal bowel sounds. Absent: distended, tenderness, guarding, rebound, rigid Extremities exam: Present: normal inspection, full ROM, normal capillary refill. Absent: tenderness, pedal edema, joint swelling, calf tenderness Back exam: Present: normal inspection Neurological exam: Present: alert, oriented X3, CN II-XII intact Psychiatric exam: Present: normal affect, normal mood Skin exam: Present: warm, dry, intact, normal color. Absent: rash Course Vital Signs 12/17/21 22:53 Temperature 99.0 F Pulse Rate 112 H Respiratory 20 Rate Blood Pressure 166/92 O2 Sat by Pulse 97 Oximetry - Reevaluation(s) Reevaluation #1: 12/18/21 Medical record is reviewed Patient symptoms resolved here in the ER Patient informed results and questions answered Medical Decision Making - Medical Decision Making 36 female well-known to our ER coming in for headache. Headache is resolved here in the ER she will be discharged home Disposition Clinical Impression: Status migrainosus, Anxiety, Chronic pain Disposition: HOME SELF-CARE Is patient prescribed a controlled substance at d/c from ED?: No Referrals: China Doyle MD [Primary Care Provider] - 1-2 days Time of Disposition: 00:50
== END 2021-12-18 00:40 | disposition home or self-care (01) ==
LOC: EC 22:38
DX: F41.9 Anxiety disorder, unspecified (principal); G89.29 Other chronic pain; G43.909 Migraine, unspecified, not intractable, without status migrainosus; J45.909 Unspecified asthma, uncomplicated; K21.9 Gastro-esophageal reflux disease without esophagitis; Z79.83 Long term (current) use of bisphosphonates; E78.5 Hyperlipidemia, unspecified; Z88.1 Allergy status to other antibiotic agents; Z91.09 Other allergy status, other than to drugs and biological substances; Z88.5 Allergy status to narcotic agent; Z91.013 Allergy to seafood; Z88.2 Allergy status to sulfonamides; Z88.8 Allergy status to other drugs, medicaments and biological substances; Z88.6 Allergy status to analgesic agent
CPT/HCPCS: 99284; 96372; S0183; J1170

== ENCOUNTER 2021-12-26 20:00 | Emergency (ER) | payer MEDICARE, OTHER ==
[2021-12-26 20:25] VITALS: TEMP 97.8
[2021-12-26] MEDS ORDERED: KETOROLAC 15 MG/ML 1 ML VIAL IM STA (21:08)
[2021-12-26] MEDS ORDERED: diphenhydrAMINE 50 MG/ML 1 ML VIAL IM STA (21:08)
--- NOTE | 2021-12-26 22:09 | ED ---
Back Pain HPI - General Chief Complaint: Back Pain/Injury Stated Complaint: Leg Pain Time Seen by Provider: 12/26/21 21:02 Source: patient Limitations: no limitations - History of Present Illness Initial Comments: Patient is a 36-year-old female with a past alcohol history of chronic pain syndrome presenting with right lower extremity pain. Patient is well known in our emergency Department. States she laid on her pain stimulator the wrong way which has caused pain down her right lower extremity. States she has not had exacerbation of her chronic pain lately due to being placed on Percocet recently. Patient states Toradol and Benadryl usually helps this pain. She denies new injury. Denies fever, chills, leg swelling, calf pain. - Related Data Home Medications Medication Instructions Recorded Confirmed Medroxyprogesterone Acetate 150 mg IM Q84D 11/22/13 10/07/20 [Depo-Provera] rOPINIRole HCL [Requip] 1 mg PO BID@0900,1200 11/22/13 10/07/20 Pentosan Polysulfate Sodium 100 mg PO DAILY 02/10/15 10/07/20 [Elmiron] HYDROcodone/APAP 7.5-325MG [[place] 1 tab PO BID 07/20/16 10/07/20 7.5-325] Paliperidone IM Pt Own [Invega 117 mg IM Q28D 07/20/16 10/07/20 Sustenna] amantadine HCL [Symmetrel] 100 mg PO BID 11/21/16 10/07/20 Albuterol Sulfate [Proair Hfa] 2 puff INHALATION RT-QID PRN 01/13/18 10/07/20 Butalb/Acetaminophen/Caffeine 1 tab PO Q8H PRN 01/13/18 10/07/20 [Fioricet 50-325-40] Fluticasone Propionate [Flovent 1 puff INHALATION RT-BID 01/13/18 10/07/20 Hfa 110 mcg] gemfibroziL [Lopid] 600 mg PO BID 01/13/18 10/07/20 Gabapentin [Neurontin] 300 mg PO TID 03/11/18 10/07/20 Gabapentin [Neurontin] 600 mg PO TID 09/16/19 10/07/20 Omeprazole [PriLOSEC] 40 mg PO DAILY 09/16/19 10/07/20 rOPINIRole HCL [Requip] 2 mg PO HS 09/16/19 10/07/20 traZODone HCL 300 mg PO HS 09/16/19 10/07/20 hydrOXYzine pamoate [hydrOXYzine 25 mg PO BID 04/13/20 10/07/20 PAMOATE] Cyclobenzaprine [Flexeril] 10 mg PO TID PRN 08/16/20 10/07/20 Fentanyl/Bupivcaine Pain Pump 1 dose INTRATHECA CONTINUOUS 08/16/20 10/07/20 Ibuprofen [Motrin] 600 mg PO TID PRN 10/07/20 10/07/20 diphenhydrAMINE [Benadryl] 50 mg PO DAILY PRN 10/07/20 10/07/20 Previous Rx's Medication Instructions Recorded Erythromycin Ophth Oint [Romycin 1 applic RIGHT EYE QID #1 bottle 10/03/20 Ophth Oint] Ondansetron Odt [Zofran Odt] 4 mg PO Q8HR PRN #14 tab 10/16/20 Ondansetron Odt [Zofran Odt] 4 mg PO Q8HR PRN #10 tab 06/21/21 predniSONE [Deltasone] 20 mg PO BID #10 tab 09/08/21 Cephalexin [Keflex] 500 mg PO Q8HR 7 Days #21 cap 11/25/21 Fluconazole [Diflucan] 150 mg PO ONCE #1 tab 11/25/21 Allergies Allergy/AdvReac Type Severity Reaction Status Date / Time azithromycin Allergy Rash/Hives Verified 12/26/21 20:26 [From Zithromax Z-Mehrdad] cimetidine [From Tagamet] Allergy Rash/Hives Verified 12/26/21 20:26 ether [Ether] Allergy Anaphylaxis Verified 12/26/21 20:26 Fish Containing Products Allergy Anaphylaxis Verified 12/26/21 20:26 [Fish] ibuprofen [From Motrin] Allergy Rash/Hives Verified 12/26/21 20:26 morphine Allergy Unknown Verified 12/26/21 20:26 ziprasidone HCl [From Geodon] Allergy Extrapyramidal Verified 12/26/21 20:26 Symptoms ciprofloxacin [From Cipro] AdvReac Rash/Hives Verified 12/26/21 20:26 fluphenazine HCl AdvReac Extrapyramidal Verified 12/26/21 20:26 [From Prolixin] Symptoms haloperidol [From Haldol] AdvReac Extrapyramidal Verified 12/26/21 20:26 Symptoms Sulfa (Sulfonamide AdvReac Nausea & Verified 12/26/21 20:26 Antibiotics) Vomiting Review of Systems ROS Statement: Those systems with pertinent positive or pertinent negative responses have been documented in the HPI. ROS Other: All systems not noted in ROS Statement are negative. Past Medical History Past Medical History: Asthma, GERD/Reflux, Hyperlipidemia, Musculoskeletal Disorder, Neurologic Disorder, Osteoarthritis (OA), Seizure Disorder Additional Past Medical History / Comment(s): RSD-DERIC FEET, INTERSTITIAL CYSTITIS, BRONCHITIS, HEMORRHOIDS,MIGRAINES, INSOMNIA. VERTIGO, last seizure 4 years ago, complex regional pain syndrome, RLS. History of Any Multi-Drug Resistant Organisms: MRSA Date of last positivie culture/infection: 04/20/15 MDRO Source:: Left Axilla Past Surgical History: Adenoidectomy, Back Surgery, Cholecystectomy, Orthopedic Surgery, Tonsillectomy Additional Past Surgical History / Comment(s): bilateral foot surgery d/t rsd, numerous pain clinic procedures, nerve stimulator in back to tx RSD placed in Nov 11 2015, pain pump placement, replacement of stimulator 06/2021 Past Anesthesia/Blood Transfusion Reactions: Previous Problems w/ Anesthesia Additional Past Anesthesia/Blood Transfusion Reaction / Comment(s): Pt recieved blood when she was 2 yrs old after tonsillectomy. WHEN BABY HEART STOPPED TWICE- PT STATED SHE WAS ALLERGIC TO ETHER. Past Psychological History: Anxiety, Bipolar, Depression, PTSD Smoking Status: Never smoker Past Alcohol Use History: None Reported Past Drug Use History: Marijuana - Past Family History Father History Unknown: Yes Family Medical History: Diabetes Mellitus Mother Family Medical History: Cancer, CVA/TIA, Diabetes Mellitus, Myocardial Infarction ([place]) Additional Family Medical History / Comment(s): Mother has had 5 CVAs, 3 MIs and UTERINE CANCER General Exam Limitations: no limitations General appearance: alert, in no apparent distress Respiratory exam: Present: normal lung sounds bilaterally. Absent: respiratory distress, wheezes, rales, rhonchi, stridor Cardiovascular Exam: Present: regular rate, normal rhythm, normal heart sounds. Absent: systolic murmur, diastolic murmur, rubs, gallop, clicks Extremities exam: Present: normal inspection, full ROM, normal capillary refill. Absent: tenderness, pedal edema, calf tenderness Neurological exam: Present: alert, oriented X3, CN II-XII intact Psychiatric exam: Present: normal affect, normal mood Skin exam: Present: warm, dry, intact, normal color. Absent: rash Course Vital Signs 12/26/21 12/26/21 20:23 22:44 Temperature 97.8 F Pulse Rate 100 83 Respiratory 20 16 Rate Blood Pressure 155/90 151/98 O2 Sat by Pulse 98 100 Oximetry Medical Decision Making - Medical Decision Making This 36-year-old female presenting with right lower extremity pain. No injury. No overlying skin changes of the right lower extremity. No calf pain. Patient given Toradol and reports no relief of pain. We discussed other pain medications in detail. Patient states she has already taken a max daily dose of Tylenol today. Patient agreed she will be given 1 dose of Dilaudid but again needs to manage her pain with the pain clinic. Patient verbalizes understanding. Dr. Mario is my attending. Disposition Clinical Impression: Chronic pain of right lower extremity Disposition: HOME SELF-CARE Condition: Good Instructions (If sedation given, give patient instructions): Chronic Pain (ED) Additional Instructions: Please follow up with pain specialist. Turns the emergency department experience new, concerning, or worsening symptoms. Is patient prescribed a controlled substance at d/c from ED?: No Referrals: China Doyle MD [Primary Care Provider] - 1-2 days Time of Disposition: 22:09
[2021-12-26] MEDS ORDERED: HYDROmorphone 0.5 MG/0.5 ML SYRINGE IM STA (22:15)
[2021-12-26 22:46] VITALS: BP 151/98; PULSE 83; RESP 16
== END 2021-12-26 22:45 | disposition home or self-care (01) ==
LOC: EC 20:00
DX: M79.661 Pain in right lower leg (principal); G89.29 Other chronic pain; J45.909 Unspecified asthma, uncomplicated; K21.9 Gastro-esophageal reflux disease without esophagitis; E78.5 Hyperlipidemia, unspecified; Z88.8 Allergy status to other drugs, medicaments and biological substances; Z88.2 Allergy status to sulfonamides; Z88.1 Allergy status to other antibiotic agents; Z88.6 Allergy status to analgesic agent; Z91.013 Allergy to seafood
CPT/HCPCS: 99283; 96372; J1200; J1885; J1170

== ENCOUNTER 2022-01-10 21:35 | Emergency (ER) | payer MEDICARE, OTHER ==
[2022-01-10 22:08] VITALS: TEMP 98.1
--- NOTE | 2022-01-10 22:48 | XR ---
EXAMINATION TYPE: XR Hip Complete LT DATE OF EXAM: 01/10/2022 COMPARISON: NONE HISTORY: Pain TECHNIQUE: 2 view FINDINGS: There is no sign of fracture nor dislocation. Acetabulum is intact. Proximal femur is intac t. Sacroiliac joint is intact IMPRESSION: Negative left hip exam.
--- NOTE | 2022-01-10 22:48 | CT ---
EXAMINATION TYPE: CT brain wo con DATE OF EXAM: 01/10/2022 COMPARISON: 11/03/2021 HISTORY: headache and vomiting after hitting head today CT DLP: 1139.4 mGycm Automated exposure control for dose reduction was used. Images of the brain obtained with no contrast. Ventricles and sulci appear normal. There is no mass effect or midline shift. No sign of intracranial hemorrhage. The calvarium is intact. There is moderate mucosal thickening in the sphenoid sinus. IMPRESSION: Negative unenhanced head CT scan. Sphenoid sinusitis is noted and is new compared to old exam.
--- NOTE | 2022-01-10 22:54 | ED ---
General Adult HPI - General Chief complaint: Head Injury Stated complaint: fall/vomitting/ Source: patient, RN notes reviewed Mode of arrival: wheelchair Limitations: no limitations - History of Present Illness Initial comments: 36-year-old female presents to the emergency department for evaluation of injury to her head status post slip and fall in the bathroom. Patient states she has had several episodes of diarrhea today and was rushing to get to the bathroom when she tripped on a carpet and fell. Reports hitting her head on a cabinet. Patient is now experiencing vomiting which she reports began after her injury. Complaints of dizziness that worsens when she moves her head, as well as generalized headache. Also complains of pain to the left hip, which is accompan ied by a bruise. Pain worsens with ambulation and weight-bearing activity. Denies any loss of consciousness, blurry vision, chest pain, palpitations, shortness of breath, or abdominal pain. States she is on a continuous fentanyl pump, and also takes Percocet for complex regional pain syndrome. States despite these medications she is still experiencing a significant amount of discomfort related to her injuries. - Related Data Home Medications Medication Instructions Recorded Confirmed Medroxyprogesterone Acetate 150 mg IM Q84D 11/22/13 10/07/20 [Depo-Provera] rOPINIRole HCL [Requip] 1 mg PO BID@0900,1200 11/22/13 10/07/20 Pentosan Polysulfate Sodium 100 mg PO DAILY 02/10/15 10/07/20 [Elmiron] HYDROcodone/APAP 7.5-325MG [Media 1 tab PO BID 07/20/16 10/07/20 7.5-325] Paliperidone IM Pt Own [Invega 117 mg IM Q28D 07/20/16 10/07/20 Sustenna] amantadine HCL [Symmetrel] 100 mg PO BID 11/21/16 10/07/20 Albuterol Sulfate [Proair Hfa] 2 puff INHALATION RT-QID PRN 01/13/18 10/07/20 Butalb/Acetaminophen/Caffeine 1 tab PO Q8H PRN 01/13/18 10/07/20 [Fioricet 50-325-40] Fluticasone Propionate [Flovent 1 puff INHALATION RT-BID 01/13/18 10/07/20 Hfa 110 mcg] gemfibroziL [Lopid] 600 mg PO BID 01/13/18 10/07/20 Gabapentin [Neurontin] 300 mg PO TID 03/11/18 10/07/20 Gabapentin [Neurontin] 600 mg PO TID 09/16/19 10/07/20 Omeprazole [PriLOSEC] 40 mg PO DAILY 09/16/19 10/07/20 rOPINIRole HCL [Requip] 2 mg PO HS 09/16/19 10/07/20 traZODone HCL 300 mg PO HS 09/16/19 10/07/20 hydrOXYzine pamoate [hydrOXYzine 25 mg PO BID 04/13/20 10/07/20 PAMOATE] Cyclobenzaprine [Flexeril] 10 mg PO TID PRN 08/16/20 10/07/20 Fentanyl/Bupivcaine Pain Pump 1 dose INTRATHECA CONTINUOUS 08/16/20 10/07/20 Ibuprofen [Motrin] 600 mg PO TID PRN 10/07/20 10/07/20 diphenhydrAMINE [Benadryl] 50 mg PO DAILY PRN 10/07/20 10/07/20 Previous Rx's Medication Instructions Recorded Erythromycin Ophth Oint [Romycin 1 applic RIGHT EYE QID #1 bottle 10/03/20 Ophth Oint] Ondansetron Odt [Zofran Odt] 4 mg PO Q8HR PRN #14 tab 10/16/20 Ondansetron Odt [Zofran Odt] 4 mg PO Q8HR PRN #10 tab 06/21/21 predniSONE [Deltasone] 20 mg PO BID #10 tab 09/08/21 Cephalexin [Keflex] 500 mg PO Q8HR 7 Days #21 cap 11/25/21 Fluconazole [Diflucan] 150 mg PO ONCE #1 tab 11/25/21 Allergies Allergy/AdvReac Type Severity Reaction Status Date / Time azithromycin Allergy Rash/Hives Verified 01/10/22 22:09 [From Zithromax Z-Mehrdad] cimetidine [From Tagamet] Allergy Rash/Hives Verified 01/10/22 22:09 ether [Ether] Allergy Anaphylaxis Verified 01/10/22 22:09 Fish Containing Products Allergy Anaphylaxis Verified 01/10/22 22:09 [Fish] ibuprofen [From Motrin] Allergy Rash/Hives Verified 01/10/22 22:09 morphine Allergy Unknown Verified 01/10/22 22:09 ziprasidone HCl [From Geodon] Allergy Extrapyramidal Verified 01/10/22 22:09 Symptoms ciprofloxacin [From Cipro] AdvReac Rash/Hives Verified 01/10/22 22:09 fluphenazine HCl AdvReac Extrapyramidal Verified 01/10/22 22:09 [From Prolixin] Symptoms haloperidol [From Haldol] AdvReac Extrapyramidal Verified 01/10/22 22:09 Symptoms Sulfa (Sulfonamide AdvReac Nausea & Verified 01/06/22 21:54 Antibiotics) Vomiting Review of Systems ROS Statement: Those systems with pertinent positive or pertinent negative responses have been documented in the HPI. ROS Other: All systems not noted in ROS Statement are negative. Past Medical History Past Medical History: Asthma, GERD/Reflux, Hyperlipidemia, Musculoskeletal Disorder, Neurologic Disorder, Osteoarthritis (OA), Seizure Disorder Additional Past Medical History / Comment(s): RSD-DERIC FEET, INTERSTITIAL CYSTITIS, BRONCHITIS, HEMORRHOIDS,MIGRAINES, INSOMNIA. VERTIGO, last seizure 4 years ago, complex regional pain syndrome, RLS. History of Any Multi-Drug Resistant Organisms: MRSA Date of last positivie culture/infection: 04/20/15 MDRO Source:: Left Axilla Past Surgical History: Adenoidectomy, Back Surgery, Cholecystectomy, Orthopedic Surgery, Tonsillectomy Additional Past Surgical History / Comment(s): bilateral foot surgery d/t rsd, numerous pain clinic procedures, nerve stimulator in back to tx RSD placed in Nov 11 2015, pain pump placement, replacement of stimulator 06/2021 Past Anesthesia/Blood Transfusion Reactions: Previous Problems w/ Anesthesia Additional Past Anesthesia/Blood Transfusion Reaction / Comment(s): Pt recieved blood when she was 2 yrs old after tonsillectomy. WHEN BABY HEART STOPPED TWICE- PT STATED SHE WAS ALLERGIC TO ETHER. Past Psychological History: Anxiety, Bipolar, Depression, PTSD Smoking Status: Never smoker Past Alcohol Use History: None Reported Past Drug Use History: Marijuana - Past Family History Father History Unknown: Yes Family Medical History: Diabetes Mellitus Mother Family Medical History: Cancer, CVA/TIA, Diabetes Mellitus, Myocardial Infarction ([place]) Additional Family Medical History / Comment(s): Mother has had 5 CVAs, 3 MIs and UTERINE CANCER General Exam Limitations: no limitations General appearance: alert, other (Well-developed, well-nourished female in moderate distress due to pain. Initial temperature 98.1, pulse 100, respirations 20, blood pressure 149/95, pulse ox 100% on room air.) Head exam: Present: normocephalic, other (small area of superficial erythema left temporoparietal region of the scalp. No contusion or hematoma noted.) Eye exam: Present: normal appearance, PERRL, EOMI. Absent: scleral icterus, conjunctival injection, periorbital swelling, periorbital tenderness ENT exam: Present: normal exam, normal oropharynx, mucous membranes moist Neck exam: Present: normal inspection, full ROM. Absent: tenderness, meningismus, lymphadenopathy Respiratory exam: Present: normal lung sounds bilaterally. Absent: respiratory distress, wheezes, rales, rhonchi, stridor Cardiovascular Exam: Present: regular rate, normal rhythm, normal heart sounds. Absent: systolic murmur, diastolic murmur, rubs, gallop, clicks GI/Abdominal exam: Present: soft, normal bowel sounds. Absent: distended, tenderness, guarding, rebound, rigid Left Hip exam: Present: tenderness (Generalized tenderness upon palpation of the left hip.), ecchymosis (Small ecchymotic area superior to iliac crest) Upper Leg exam: Present: normal inspection, full ROM. Absent: tenderness, swelling Knee exam: Present: normal inspection, full ROM. Absent: tenderness, swelling Neurovascular tendon exam: Present: no vascular compromise Back exam: Present: paraspinal tenderness (left lumbar paraspinal tenderness upon palpation and with movement.) Neurological exam: Present: alert, oriented X3 Expanded Patient oriented to: Present: person, place, time Speech: Present: fluid speech Cranial nerves: EOM's Intact: Normal Cerebellar function: Finger to Nose: Normal Motor strength exam: RUE: 5, LUE: 5, RLE: 5, LLE: 5 Eye Response: (4) open spontaneously Motor Response: (6) obeys commands Verbal Response: (5) oriented [place] Total: 15 Psychiatric exam: Present: anxious Course Vital Signs 01/10/22 01/11/22 22:03 02:01 Temperature 98.1 F 98.1 F Pulse Rate 100 61 Respiratory 20 18 Rate Blood Pressure 149/95 168/98 O2 Sat by Pulse 99 97 Oximetry - Reevaluation(s) Reevaluation #1: 01/10/22 22:55 Patient was examined in [facility] and initial orders were placed. Despite pain and vomiting, patient appears stable with no focal neurological deficits. Will reassess. 01/11/22 01:30 Upon re-evaluation, patient appears much improved. She is no longer vomiting and is moving freely. Does have a small developing contusion left frontal/parietal scalp. EOMI. alert and oriented, answering questions appropriately. Requesting Toradol for discomfort related to the fall. States she is able to tolerate this despite her ALLERGY to Motrin. Patient will be discharged home to follow up with her PCP for a recheck. Medical Decision Making - Medical Decision Making This is a 36-year-old female with a past medical history of complex regional pain syndrome who presents to the emergency department for evaluation of left hip pain and head injury status post fall. Upon exam, patient is awake and alert and answering questions appropriately. She is neurologically intact with no focal deficits. Initially, patient was having some vomiting, however that resolved spontaneously. Small contusions noted on the left scalp and left hip. CT of the brain was negative. X-ray of the left hip shows no acute process. Patient requested Toradol for pain which she reports receiving in the past and tolerating without difficulty. She will be discharged home with instructions to apply ice to affected area for no more than 20 minutes per hour and to continue her home medication regimen as prescribed. Encouraged to follow up with her PCP for a recheck in 48 hours. Return parameters were discussed in detail. Patient verbalizes understanding and agrees with this plan. Attending: Evelyne. - Radiology Data Radiology results: report reviewed, image reviewed X-ray of the left hip was obtained. Report was reviewed in its entirety. Impression per Dr. Leyva is negative left hip exam. CT of the brain was obtained. Report was reviewed in its entirety. Impression per Dr. Leyva is negative unenhanced head CT scan. Sphenoid sinusitis is noted and is new compared to old exam. Disposition Clinical Impression: Contusion of left hip, Contusion of scalp Disposition: HOME SELF-CARE Condition: Stable Instructions (If sedation given, give patient instructions): Head Injury (ED), Contusion in Adults (ED) Additional Instructions: Rest. Take your home medications as prescribed. Apply ice to sore areas for no more than 20 minutes at a time. Call your PCP in the morning to schedule a follow-up appointment. Return to the emergency department with any new, worsening, or concerning symptoms such as confusion or persistent dizziness. Is patient prescribed a controlled substance at d/c from ED?: No Referrals: None,Stated [Primary Care Provider] - 1-2 days Time of Disposition: 01:47
[2022-01-11] MEDS ORDERED: KETOROLAC 15 MG/ML 1 ML VIAL IM STA (01:45)
[2022-01-11 02:02] VITALS: BP 168/98; PULSE 61; RESP 18
== END 2022-01-11 02:02 | disposition home or self-care (01) ==
LOC: EC 21:35
DX: S00.03XA Contusion of scalp, initial encounter (principal); S70.02XA Contusion of left hip, initial encounter; J45.909 Unspecified asthma, uncomplicated; E78.5 Hyperlipidemia, unspecified; Z88.1 Allergy status to other antibiotic agents; Z88.6 Allergy status to analgesic agent; Z91.013 Allergy to seafood; Z88.5 Allergy status to narcotic agent; Z88.2 Allergy status to sulfonamides; Z88.8 Allergy status to other drugs, medicaments and biological substances; W01.0XXA Fall on same level from slipping, tripping and stumbling without subsequent striking against object, initial encounter
CPT/HCPCS: 73502; 70450; 99284; 96372; J1885

== ENCOUNTER 2022-01-15 01:11 | Emergency (ER) | payer MEDICARE, OTHER ==
[2022-01-15 01:44] VITALS: TEMP 98.6
[2022-01-15] MEDS ORDERED: diphenhydrAMINE 50 MG/ML 1 ML VIAL IM STA (02:15)
[2022-01-15] MEDS ORDERED: KETOROLAC 15 MG/ML 1 ML VIAL IM STA (02:15)
[2022-01-15] MEDS ORDERED: ORPHENADRINE 30 MG/ML 2 ML VIAL IM STA (02:15)
--- NOTE | 2022-01-15 02:24 | ED ---
Fall HPI - General Chief Complaint: Fall Stated Complaint: Fall Time Seen by Provider: 01/15/22 01:53 Source: patient, RN notes reviewed Mode of arrival: ambulatory - History of Present Illness Initial Comments: Patient presents to the emergency department stating that she was pulled forward by her dog causing her to fall on both lower legs. Complaining of increased pain to both lower legs where she has her chronic pain from complex regional pain syndrome. Patient is able to ambulate. No headache, no fever or chills, no changes in vision or hearing, no sore throat or difficulty with speech, no neck pain, no chest pain or shortness of breath, no abdominal pain, no nausea or vomiting, no changes in urination or bowel movements, no numbness or tingling, no skin rashes or lesions. Past medical, surgical, social, and family history reviewed. MD Complaint: fall - Related Data Home Medications Medication Instructions Recorded Confirmed Medroxyprogesterone Acetate 150 mg IM Q84D 11/22/13 10/07/20 [Depo-Provera] rOPINIRole HCL [Requip] 1 mg PO BID@0900,1200 11/22/13 10/07/20 Pentosan Polysulfate Sodium 100 mg PO DAILY 02/10/15 10/07/20 [Elmiron] HYDROcodone/APAP 7.5-325MG [[place] 1 tab PO BID 07/20/16 10/07/20 7.5-325] Paliperidone IM Pt Own [Invega 117 mg IM Q28D 07/20/16 10/07/20 Sustenna] amantadine HCL [Symmetrel] 100 mg PO BID 11/21/16 10/07/20 Albuterol Sulfate [Proair Hfa] 2 puff INHALATION RT-QID PRN 01/13/18 10/07/20 Butalb/Acetaminophen/Caffeine 1 tab PO Q8H PRN 01/13/18 10/07/20 [Fioricet 50-325-40] Fluticasone Propionate [Flovent 1 puff INHALATION RT-BID 01/13/18 10/07/20 Hfa 110 mcg] gemfibroziL [Lopid] 600 mg PO BID 01/13/18 10/07/20 Gabapentin [Neurontin] 300 mg PO TID 03/11/18 10/07/20 Gabapentin [Neurontin] 600 mg PO TID 09/16/19 10/07/20 Omeprazole [PriLOSEC] 40 mg PO DAILY 09/16/19 10/07/20 rOPINIRole HCL [Requip] 2 mg PO HS 09/16/19 10/07/20 traZODone HCL 300 mg PO HS 09/16/19 10/07/20 hydrOXYzine pamoate [hydrOXYzine 25 mg PO BID 04/13/20 10/07/20 PAMOATE] Cyclobenzaprine [Flexeril] 10 mg PO TID PRN 08/16/20 10/07/20 Fentanyl/Bupivcaine Pain Pump 1 dose INTRATHECA CONTINUOUS 08/16/20 10/07/20 Ibuprofen [Motrin] 600 mg PO TID PRN 10/07/20 10/07/20 diphenhydrAMINE [Benadryl] 50 mg PO DAILY PRN 10/07/20 10/07/20 Previous Rx's Medication Instructions Recorded Erythromycin Ophth Oint [Romycin 1 applic RIGHT EYE QID #1 bottle 10/03/20 Ophth Oint] Ondansetron Odt [Zofran Odt] 4 mg PO Q8HR PRN #14 tab 10/16/20 Ondansetron Odt [Zofran Odt] 4 mg PO Q8HR PRN #10 tab 06/21/21 predniSONE [Deltasone] 20 mg PO BID #10 tab 09/08/21 Cephalexin [Keflex] 500 mg PO Q8HR 7 Days #21 cap 11/25/21 Fluconazole [Diflucan] 150 mg PO ONCE #1 tab 11/25/21 Allergies Allergy/AdvReac Type Severity Reaction Status Date / Time azithromycin Allergy Rash/Hives Verified 01/15/22 01:44 [From Zithromax Z-Mehrdad] cimetidine [From Tagamet] Allergy Rash/Hives Verified 01/15/22 01:44 ether [Ether] Allergy Anaphylaxis Verified 01/15/22 01:44 Fish Containing Products Allergy Anaphylaxis Verified 01/15/22 01:44 [Fish] ibuprofen [From Motrin] Allergy Rash/Hives Verified 01/15/22 01:44 morphine Allergy Unknown Verified 01/15/22 01:44 ziprasidone HCl [From Geodon] Allergy Extrapyramidal Verified 01/15/22 01:44 Symptoms ciprofloxacin [From Cipro] AdvReac Rash/Hives Verified 01/15/22 01:44 fluphenazine HCl AdvReac Extrapyramidal Verified 01/15/22 01:44 [From Prolixin] Symptoms haloperidol [From Haldol] AdvReac Extrapyramidal Verified 01/15/22 01:44 Symptoms Sulfa (Sulfonamide AdvReac Nausea & Verified 01/15/22 01:44 Antibiotics) Vomiting Review of Systems ROS Statement: Those systems with pertinent positive or pertinent negative responses have been documented in the HPI. ROS Other: All systems not noted in ROS Statement are negative. Past Medical History Past Medical History: Asthma, GERD/Reflux, Hyperlipidemia, Musculoskeletal Disorder, Neurologic Disorder, Osteoarthritis (OA), Seizure Disorder Additional Past Medical History / Comment(s): RSD-DERIC FEET, INTERSTITIAL CYSTITIS, BRONCHITIS, HEMORRHOIDS,MIGRAINES, INSOMNIA. VERTIGO, last seizure 4 years ago, complex regional pain syndrome, RLS. History of Any Multi-Drug Resistant Organisms: MRSA Date of last positivie culture/infection: 04/20/15 MDRO Source:: Left Axilla Past Surgical History: Adenoidectomy, Back Surgery, Cholecystectomy, Orthopedic Surgery, Tonsillectomy Additional Past Surgical History / Comment(s): bilateral foot surgery d/t rsd, numerous pain clinic procedures, nerve stimulator in back to tx RSD placed in Nov 11 2015, pain pump placement, replacement of stimulator 06/2021 Past Anesthesia/Blood Transfusion Reactions: Previous Problems w/ Anesthesia Additional Past Anesthesia/Blood Transfusion Reaction / Comment(s): Pt recieved blood when she was 2 yrs old after tonsillectomy. WHEN BABY HEART STOPPED TWICE- PT STATED SHE WAS ALLERGIC TO ETHER. Past Psychological History: Anxiety, Bipolar, Depression, PTSD Smoking Status: Never smoker Past Alcohol Use History: None Reported Past Drug Use History: Marijuana - Past Family History Father History Unknown: Yes Family Medical History: Diabetes Mellitus Mother Family Medical History: Cancer, CVA/TIA, Diabetes Mellitus, Myocardial Infarction ([place]) Additional Family Medical History / Comment(s): Mother has had 5 CVAs, 3 MIs and UTERINE CANCER General Exam - General Exam Comments Initial Comments: Vital signs reviewed. Patient was found be hypertensive. Limitations: no limitations General appearance: alert, in distress (Minimal) Head exam: Present: atraumatic, normocephalic, normal inspection Eye exam: Present: normal appearance, PERRL, EOMI. Absent: scleral icterus, conjunctival injection, periorbital swelling ENT exam: Present: normal exam, mucous membranes moist Neck exam: Present: normal inspection, full ROM. Absent: tenderness, meningismus, lymphadenopathy Respiratory exam: Present: normal lung sounds bilaterally. Absent: respiratory distress, wheezes, rales, rhonchi, stridor Cardiovascular Exam: Present: regular rate, normal rhythm, normal heart sounds. Absent: systolic murmur, diastolic murmur, rubs, gallop, clicks GI/Abdominal exam: Present: soft. Absent: distended, tenderness, guarding, rebound, rigid Extremities exam: Present: normal inspection, full ROM, tenderness (Soft tissue tenderness), normal capillary refill, other (Negative Homans sign, no evidence of neurovascular insult or infectious insult. Full range of motion all major joints.). Absent: pedal edema, joint swelling, calf tenderness Back exam: Present: normal inspection Neurological exam: Present: alert, oriented X3, CN II-XII intact Psychiatric exam: Present: normal affect, normal mood Skin exam: Present: warm, dry, intact, normal color. Absent: rash Course Vital Signs 01/15/22 01:42 Temperature 98.6 F Pulse Rate 89 Respiratory 18 Rate Blood Pressure 185/99 O2 Sat by Pulse 98 Oximetry Medical Decision Making - Medical Decision Making Acute exacerbation of chronic pain. We did discuss utility of x-rays. Patient ambulating without difficulty. Patient states she knows there is no fracture. Patient deferring x-rays. Patient told she would not be receiving controlled substance. Ketorolac, orphenadrine, diphenhydramine ordered. Patient can follow-up with her pain management physician and her regular physician as outpatient. Patient was told to return to the ER for any signs or symptoms worsen. Told to return immediately if any other problems arise. All questions answered. Treatment plan discussed. Patient in agreement Every effort has been made to ensure accuracy of this dictation. However, due to the limitations of electronic medical records and dictation devices, errors in charting still occur. The case was discussed in detail with ED attending physician. Presentation, findings, treatment plan discussed in detail. Forestry Worker Dr. Hernandez Disposition Clinical Impression: Chronic pain, Bilateral leg pain Disposition: HOME SELF-CARE Condition: Good Instructions (If sedation given, give patient instructions): Complex Regional Pain Syndrome (DC) Additional Instructions: Follow-up with your regular physician as directed. Return to the ER immediately if any symptoms worsen, new symptoms arise, or any other problems develop. Is patient prescribed a controlled substance at d/c from ED?: No Referrals: None,Stated [Primary Care Provider] - 1-2 days Time of Disposition: 02:24
[2022-01-15 03:36] VITALS: BP 145/90; PULSE 86; RESP 16
== END 2022-01-15 03:36 | disposition home or self-care (01) ==
LOC: EC 01:11
DX: M79.604 Pain in right leg (principal); M79.605 Pain in left leg; G89.29 Other chronic pain; J45.909 Unspecified asthma, uncomplicated; K21.9 Gastro-esophageal reflux disease without esophagitis; E78.5 Hyperlipidemia, unspecified; Z91.013 Allergy to seafood; Z88.5 Allergy status to narcotic agent; Z88.1 Allergy status to other antibiotic agents; Z88.2 Allergy status to sulfonamides; Z88.8 Allergy status to other drugs, medicaments and biological substances; Z79.899 Other long term (current) drug therapy; Z79.51 Long term (current) use of inhaled steroids
CPT/HCPCS: 96372; 99283; J1200; J2360; J1885

== ENCOUNTER 2022-02-21 22:50 | Emergency (ER) | payer MEDICARE, OTHER ==
[2022-02-21 22:58] VITALS: TEMP 97.6
[2022-02-21] MEDS ORDERED: ONDANSETRON ODT 4 MG TAB PO STA (23:05)
--- NOTE | 2022-02-21 23:07 | ED ---
Recheck HPI - General Chief Complaint: Abdominal Pain Stated Complaint: Vomiting Time Seen by Provider: 02/21/22 22:51 Source: patient, EMS, RN notes reviewed, old records reviewed Mode of arrival: EMS Limitations: no limitations - History of Present Illness Initial Comments: 36-year-old female well-known to this emergency department. Patient Dese for evaluation intractable nausea vomiting retching. Abdominal pain headache. Patient is multiple ER visits for similar things. Patient was unable to keep medication down here prior to arrival and patient has no other new complaints. MD Complaint: medication refill request -: hour(s) Returns Today for: Called Because of Abnormal Lab/Test, persistent/worsening pain related to initial visit Symptoms Since Prior Visit: worsening pain Context: ran out of medication Associated Symptoms: nausea, abdominal pain Treatments Prior to Arrival: Given Pain Meds on - Related Data Home Medications Medication Instructions Recorded Confirmed Medroxyprogesterone Acetate 150 mg IM Q84D 11/22/13 10/07/20 [Depo-Provera] rOPINIRole HCL [Requip] 1 mg PO BID@0900,1200 11/22/13 10/07/20 Pentosan Polysulfate Sodium 100 mg PO DAILY 02/10/15 10/07/20 [Elmiron] HYDROcodone/APAP 7.5-325MG [[place] 1 tab PO BID 07/20/16 10/07/20 7.5-325] Paliperidone IM Pt Own [Invega 117 mg IM Q28D 07/20/16 10/07/20 Sustenna] amantadine HCL [Symmetrel] 100 mg PO BID 11/21/16 10/07/20 Albuterol Sulfate [Proair Hfa] 2 puff INHALATION RT-QID PRN 01/13/18 10/07/20 Butalb/Acetaminophen/Caffeine 1 tab PO Q8H PRN 01/13/18 10/07/20 [Fioricet 50-325-40] Fluticasone Propionate [Flovent 1 puff INHALATION RT-BID 01/13/18 10/07/20 Hfa 110 mcg] gemfibroziL [Lopid] 600 mg PO BID 01/13/18 10/07/20 Gabapentin [Neurontin] 300 mg PO TID 03/11/18 10/07/20 Gabapentin [Neurontin] 600 mg PO TID 09/16/19 10/07/20 Omeprazole [PriLOSEC] 40 mg PO DAILY 09/16/19 10/07/20 rOPINIRole HCL [Requip] 2 mg PO HS 09/16/19 10/07/20 traZODone HCL 300 mg PO HS 09/16/19 10/07/20 hydrOXYzine pamoate [hydrOXYzine 25 mg PO BID 04/13/20 10/07/20 PAMOATE] Cyclobenzaprine [Flexeril] 10 mg PO TID PRN 08/16/20 10/07/20 Fentanyl/Bupivcaine Pain Pump 1 dose INTRATHECA CONTINUOUS 08/16/20 10/07/20 Ibuprofen [Motrin] 600 mg PO TID PRN 10/07/20 10/07/20 diphenhydrAMINE [Benadryl] 50 mg PO DAILY PRN 10/07/20 10/07/20 Previous Rx's Medication Instructions Recorded Erythromycin Ophth Oint [Romycin 1 applic RIGHT EYE QID #1 bottle 10/03/20 Ophth Oint] Ondansetron Odt [Zofran Odt] 4 mg PO Q8HR PRN #14 tab 10/16/20 Ondansetron Odt [Zofran Odt] 4 mg PO Q8HR PRN #10 tab 06/21/21 predniSONE [Deltasone] 20 mg PO BID #10 tab 09/08/21 Cephalexin [Keflex] 500 mg PO Q8HR 7 Days #21 cap 11/25/21 Fluconazole [Diflucan] 150 mg PO ONCE #1 tab 11/25/21 Allergies Allergy/AdvReac Type Severity Reaction Status Date / Time azithromycin Allergy Rash/Hives Verified 02/21/22 22:58 [From Zithromax Z-Mehrdad] cimetidine [From Tagamet] Allergy Rash/Hives Verified 02/21/22 22:58 ether [Ether] Allergy Anaphylaxis Verified 02/21/22 22:58 Fish Containing Products Allergy Anaphylaxis Verified 02/21/22 22:58 [Fish] ibuprofen [From Motrin] Allergy Rash/Hives Verified 02/21/22 22:58 morphine Allergy Unknown Verified 02/21/22 22:58 ziprasidone HCl [From Geodon] Allergy Extrapyramidal Verified 02/21/22 22:58 Symptoms ciprofloxacin [From Cipro] AdvReac Rash/Hives Verified 02/21/22 22:58 fluphenazine HCl AdvReac Extrapyramidal Verified 02/21/22 22:58 [From Prolixin] Symptoms haloperidol [From Haldol] AdvReac Extrapyramidal Verified 02/21/22 22:58 Symptoms Sulfa (Sulfonamide AdvReac Nausea & Verified 02/21/22 22:58 Antibiotics) Vomiting Review of Systems ROS Statement: Those systems with pertinent positive or pertinent negative responses have been documented in the HPI. ROS Other: All systems not noted in ROS Statement are negative. Past Medical History Past Medical History: Asthma, GERD/Reflux, Hyperlipidemia, Musculoskeletal Disorder, Neurologic Disorder, Osteoarthritis (OA), Seizure Disorder Additional Past Medical History / Comment(s): RSD-DERIC FEET, INTERSTITIAL CYSTITIS, BRONCHITIS, HEMORRHOIDS,MIGRAINES, INSOMNIA. VERTIGO, last seizure 4 years ago, complex regional pain syndrome, RLS. History of Any Multi-Drug Resistant Organisms: MRSA Date of last positivie culture/infection: 04/20/15 MDRO Source:: Left Axilla Past Surgical History: Adenoidectomy, Back Surgery, Cholecystectomy, Orthopedic Surgery, Tonsillectomy Additional Past Surgical History / Comment(s): bilateral foot surgery d/t rsd, numerous pain clinic procedures, nerve stimulator in back to tx RSD placed in Nov 11 2015, pain pump placement, replacement of stimulator 06/2021 Past Anesthesia/Blood Transfusion Reactions: Previous Problems w/ Anesthesia Additional Past Anesthesia/Blood Transfusion Reaction / Comment(s): Pt recieved blood when she was 2 yrs old after tonsillectomy. WHEN BABY HEART STOPPED TWICE- PT STATED SHE WAS ALLERGIC TO ETHER. Past Psychological History: Anxiety, Bipolar, Depression, PTSD Smoking Status: Never smoker Past Alcohol Use History: None Reported Past Drug Use History: Marijuana - Past Family History Father History Unknown: Yes Family Medical History: Diabetes Mellitus Mother Family Medical History: Cancer, CVA/TIA, Diabetes Mellitus, Myocardial Infarction ([place]) Additional Family Medical History / Comment(s): Mother has had 5 CVAs, 3 MIs and UTERINE CANCER General Exam Limitations: no limitations General appearance: alert, in no apparent distress, anxious Head exam: Present: atraumatic, normocephalic, normal inspection Eye exam: Present: normal appearance, PERRL, EOMI. Absent: scleral icterus, conjunctival injection, periorbital swelling ENT exam: Present: normal exam, mucous membranes moist Neck exam: Present: normal inspection. Absent: tenderness, meningismus, lymphadenopathy Respiratory exam: Present: normal lung sounds bilaterally. Absent: respiratory distress, wheezes, rales, rhonchi, stridor Cardiovascular Exam: Present: normal rhythm, tachycardia, normal heart sounds. Absent: systolic murmur, diastolic murmur, rubs, gallop, clicks GI/Abdominal exam: Present: soft, normal bowel sounds. Absent: distended, tenderness, guarding, rebound, rigid Extremities exam: Present: normal inspection, full ROM, normal capillary refill. Absent: tenderness, pedal edema, joint swelling, calf tenderness Back exam: Present: normal inspection Neurological exam: Present: alert, oriented X3, CN II-XII intact Psychiatric exam: Present: normal affect, normal mood Skin exam: Present: warm, dry, intact, normal color. Absent: rash Course Vital Signs 02/21/22 02/21/22 02/21/22 22:51 23:01 23:34 Temperature 97.6 F Pulse Rate 109 H 115 H 120 H Respiratory 20 20 16 Rate Blood Pressure 151/132 163/104 152/109 O2 Sat by Pulse 96 95 95 Oximetry 02/21/22 02/22/22 23:58 01:46 Temperature Pulse Rate 110 H 67 Respiratory 16 15 Rate Blood Pressure 140/93 112/87 O2 Sat by Pulse 100 100 Oximetry - Reevaluation(s) Reevaluation #1: 02/21/22 medical record is reviewed patient symptoms improved here in the ED patient informed of results and questions answered Medical Decision Making - Medical Decision Making 36 female to the emergency department for evaluation. Patient presents today for evaluation regards to severe nausea vomiting headache abdominal pain. All symptoms are currently resolved and patient can be discharged home Disposition Clinical Impression: Nausea and vomiting Disposition: HOME SELF-CARE Condition: Fair Instructions (If sedation given, give patient instructions): Acute Nausea and Vomiting (DC) Is patient prescribed a controlled substance at d/c from ED?: No Referrals: China Doyle MD [Primary Care Provider] - 1-2 days Time of Disposition: 01:00
[2022-02-21] MEDS ORDERED: diphenhydrAMINE 50 MG/ML 1 ML VIAL IVP STA (23:15)
[2022-02-21] MEDS ORDERED: HYDROmorphone 1 MG/ML 1 ML SYRINGE IVP STA (23:16)
[2022-02-21] MEDS ORDERED: LORazepam 2 MG/ML INJ IV STA (23:18)
[2022-02-21] MEDS ORDERED: SODIUM CHLORIDE 0.9% 1,000 ML IV STA (23:25)
[2022-02-21] MEDS ORDERED: SODIUM CHLORIDE 0.9% 1,000 ML IV ONE (23:25)
[2022-02-22 01:47] VITALS: BP 112/87; PULSE 67; RESP 15
== END 2022-02-22 01:48 | disposition home or self-care (01) ==
LOC: EC 22:50
DX: R11.2 Nausea with vomiting, unspecified (principal); J45.909 Unspecified asthma, uncomplicated; K21.9 Gastro-esophageal reflux disease without esophagitis; E78.5 Hyperlipidemia, unspecified; M19.90 Unspecified osteoarthritis, unspecified site; Z88.1 Allergy status to other antibiotic agents; Z91.013 Allergy to seafood; Z88.5 Allergy status to narcotic agent; Z90.49 Acquired absence of other specified parts of digestive tract; Z88.2 Allergy status to sulfonamides; Z88.8 Allergy status to other drugs, medicaments and biological substances; Z79.899 Other long term (current) drug therapy; Z79.51 Long term (current) use of inhaled steroids
CPT/HCPCS: 99284; 96374; 96375; 96361; J2060; J1200; J1170

== ENCOUNTER 2022-03-10 21:54 | Emergency (ER) | payer MEDICARE, OTHER ==
[2022-03-10 22:01] VITALS: TEMP 98.1
[2022-03-10] MEDS ORDERED: KETOROLAC 15 MG/ML 1 ML VIAL IM STA (22:12)
[2022-03-10] MEDS ORDERED: ORPHENADRINE 30 MG/ML 2 ML VIAL IM STA (22:12)
[2022-03-10] MEDS ORDERED: DEXAMETHASONE SOD PHOSPHATE 10 MG/ML 1 ML VIAL IM STA (22:12)
[2022-03-10] MEDS ORDERED: diphenhydrAMINE 50 MG/ML 1 ML VIAL IM STA (22:13)
[2022-03-10] MEDS ORDERED: HYDROcodone/APAP 7.5-325MG 1 EACH TAB PO ONE (22:49)
--- NOTE | 2022-03-10 22:51 | ED ---
General Adult HPI - General Chief complaint: Extremity Problem,Nontraumatic Stated complaint: pain hips Time Seen by Provider: 03/10/22 22:03 Source: patient Mode of arrival: wheelchair - History of Present Illness Initial comments: Patient is a 36-year-old female presenting with chief complaint of chronic pain. Patient has history of complex regional pain syndrome and states it is flaring up today. Patient has a pain pump in place, however states that recently it malfunctioned and had to be shut off. She is complaining of pain mainly in the bilateral lower extremities, most notably the hips and feet. No recent injury or trauma. No numbness or tingling. No discoloration. - Related Data Home Medications Medication Instructions Recorded Confirmed Medroxyprogesterone Acetate 150 mg IM Q84D 11/22/13 10/07/20 [Depo-Provera] rOPINIRole HCL [Requip] 1 mg PO BID@0900,1200 11/22/13 10/07/20 Pentosan Polysulfate Sodium 100 mg PO DAILY 02/10/15 10/07/20 [Elmiron] HYDROcodone/APAP 7.5-325MG [[place] 1 tab PO BID 07/20/16 10/07/20 7.5-325] Paliperidone IM Pt Own [Invega 117 mg IM Q28D 07/20/16 10/07/20 Sustenna] amantadine HCL [Symmetrel] 100 mg PO BID 11/21/16 10/07/20 Albuterol Sulfate [Proair Hfa] 2 puff INHALATION RT-QID PRN 01/13/18 10/07/20 Butalb/Acetaminophen/Caffeine 1 tab PO Q8H PRN 01/13/18 10/07/20 [Fioricet 50-325-40] Fluticasone Propionate [Flovent 1 puff INHALATION RT-BID 01/13/18 10/07/20 Hfa 110 mcg] gemfibroziL [Lopid] 600 mg PO BID 01/13/18 10/07/20 Gabapentin [Neurontin] 300 mg PO TID 03/11/18 10/07/20 Gabapentin [Neurontin] 600 mg PO TID 09/16/19 10/07/20 Omeprazole [PriLOSEC] 40 mg PO DAILY 09/16/19 10/07/20 rOPINIRole HCL [Requip] 2 mg PO HS 09/16/19 10/07/20 traZODone HCL 300 mg PO HS 09/16/19 10/07/20 hydrOXYzine pamoate [hydrOXYzine 25 mg PO BID 04/13/20 10/07/20 PAMOATE] Cyclobenzaprine [Flexeril] 10 mg PO TID PRN 08/16/20 10/07/20 Fentanyl/Bupivcaine Pain Pump 1 dose INTRATHECA CONTINUOUS 08/16/20 10/07/20 Ibuprofen [Motrin] 600 mg PO TID PRN 10/07/20 10/07/20 diphenhydrAMINE [Benadryl] 50 mg PO DAILY PRN 10/07/20 10/07/20 Previous Rx's Medication Instructions Recorded Erythromycin Ophth Oint [Romycin 1 applic RIGHT EYE QID #1 bottle 10/03/20 Ophth Oint] Ondansetron Odt [Zofran Odt] 4 mg PO Q8HR PRN #14 tab 10/16/20 Ondansetron Odt [Zofran Odt] 4 mg PO Q8HR PRN #10 tab 06/21/21 predniSONE [Deltasone] 20 mg PO BID #10 tab 09/08/21 Cephalexin [Keflex] 500 mg PO Q8HR 7 Days #21 cap 11/25/21 Fluconazole [Diflucan] 150 mg PO ONCE #1 tab 11/25/21 Allergies Allergy/AdvReac Type Severity Reaction Status Date / Time azithromycin Allergy Rash/Hives Verified 03/10/22 22:01 [From Zithromax Z-Mehrdad] cimetidine [From Tagamet] Allergy Rash/Hives Verified 03/10/22 22:01 ether [Ether] Allergy Anaphylaxis Verified 03/10/22 22:01 Fish Containing Products Allergy Anaphylaxis Verified 03/10/22 22:01 [Fish] ibuprofen [From Motrin] Allergy Rash/Hives Verified 03/10/22 22:01 morphine Allergy Unknown Verified 03/10/22 22:01 ziprasidone HCl [From Geodon] Allergy Extrapyramidal Verified 03/10/22 22:01 Symptoms ciprofloxacin [From Cipro] AdvReac Rash/Hives Verified 03/10/22 22:01 fluphenazine HCl AdvReac Extrapyramidal Verified 03/10/22 22:01 [From Prolixin] Symptoms haloperidol [From Haldol] AdvReac Extrapyramidal Verified 03/10/22 22:01 Symptoms Sulfa (Sulfonamide AdvReac Nausea & Verified 03/10/22 22:01 Antibiotics) Vomiting Review of Systems ROS Statement: Those systems with pertinent positive or pertinent negative responses have been documented in the HPI. ROS Other: All systems not noted in ROS Statement are negative. Past Medical History Past Medical History: Asthma, GERD/Reflux, Hyperlipidemia, Musculoskeletal Disorder, Neurologic Disorder, Osteoarthritis (OA), Seizure Disorder Additional Past Medical History / Comment(s): RSD-DERIC FEET, INTERSTITIAL CYSTITIS, BRONCHITIS, HEMORRHOIDS,MIGRAINES, INSOMNIA. VERTIGO, last seizure 4 years ago, complex regional pain syndrome, RLS. History of Any Multi-Drug Resistant Organisms: MRSA Date of last positivie culture/infection: 04/20/15 MDRO Source:: Left Axilla Past Surgical History: Adenoidectomy, Back Surgery, Cholecystectomy, Orthopedic Surgery, Tonsillectomy Additional Past Surgical History / Comment(s): bilateral foot surgery d/t rsd, numerous pain clinic procedures, nerve stimulator in back to tx RSD placed in Nov 11 2015, pain pump placement, replacement of stimulator 06/2021 Past Anesthesia/Blood Transfusion Reactions: Previous Problems w/ Anesthesia Additional Past Anesthesia/Blood Transfusion Reaction / Comment(s): Pt recieved blood when she was 2 yrs old after tonsillectomy. WHEN BABY HEART STOPPED TWICE- PT STATED SHE WAS ALLERGIC TO ETHER. Past Psychological History: Anxiety, Bipolar, Depression, PTSD Smoking Status: Never smoker Past Alcohol Use History: None Reported Past Drug Use History: Marijuana - Past Family History Father History Unknown: Yes Family Medical History: Diabetes Mellitus Mother Family Medical History: Cancer, CVA/TIA, Diabetes Mellitus, Myocardial Infarction ([place]) Additional Family Medical History / Comment(s): Mother has had 5 CVAs, 3 MIs and UTERINE CANCER General Exam Limitations: no limitations General appearance: alert, in no apparent distress Head exam: Present: atraumatic, normocephalic, normal inspection Eye exam: Present: normal appearance Neck exam: Present: normal inspection Respiratory exam: Present: normal lung sounds bilaterally. Absent: respiratory distress, wheezes, rales, rhonchi, stridor Cardiovascular Exam: Present: regular rate, normal rhythm, normal heart sounds. Absent: systolic murmur, diastolic murmur, rubs, gallop, clicks Extremities exam: Present: normal capillary refill, other (Distal pulses of the lower extremities 2+). Absent: pedal edema Neurological exam: Present: alert, oriented X3, CN II-XII intact Psychiatric exam: Present: normal affect, normal mood Skin exam: Present: warm, dry, intact, normal color. Absent: rash Course Vital Signs 03/10/22 03/10/22 21:59 23:01 Temperature 98.1 F Pulse Rate 112 H 108 H Respiratory 16 20 Rate Blood Pressure 112/80 118/74 O2 Sat by Pulse 98 97 Oximetry Medical Decision Making - Medical Decision Making Patient is a 36-year-old female well known to our ER presenting with chief complaint of chronic pain. Pain is mainly in the bilateral hips and feet, states that it is consistent with her regular complex regional pain syndrome flareups. Patient given pain medication. Instructed to follow-up with her PCP and china painter. Follow-up with PCP. Report back to ER with any new or worsening symptoms. Discussed return parameters and answered all questions. Patient conveyed verbal understanding and agreed to the plan. I discussed this case in detail with my attending Dr. Hoang Disposition Clinical Impression: Complex regional pain syndrome Disposition: HOME SELF-CARE Condition: Good Instructions (If sedation given, give patient instructions): Pain Management (ED), Chronic Pain (ED) Additional Instructions: Follow-up with PCP and pain management. Report back to ER with any new or worsening symptoms. Is patient prescribed a controlled substance at d/c from ED?: No Referrals: China Doyle MD [Primary Care Provider] - 1-2 days Time of Disposition: 22:50
[2022-03-10 23:53] VITALS: BP 108/70; PULSE 94; RESP 14
== END 2022-03-10 23:54 | disposition home or self-care (01) ==
LOC: EC 21:54
DX: G57.73 Causalgia of bilateral lower limbs (principal); J45.909 Unspecified asthma, uncomplicated; K21.9 Gastro-esophageal reflux disease without esophagitis; F41.9 Anxiety disorder, unspecified; F31.9 Bipolar disorder, unspecified; F12.90 Cannabis use, unspecified, uncomplicated; Z88.6 Allergy status to analgesic agent; Z88.1 Allergy status to other antibiotic agents; Z88.8 Allergy status to other drugs, medicaments and biological substances; Z88.4 Allergy status to anesthetic agent; Z91.013 Allergy to seafood; Z88.2 Allergy status to sulfonamides; Z79.899 Other long term (current) drug therapy
CPT/HCPCS: 99283; 96372 ×4; J1200; J1100; J2360; J1885

== ENCOUNTER 2022-03-14 23:53 | Emergency (ER) | payer MEDICARE, OTHER ==
[2022-03-15 00:03] VITALS: RESP 16; TEMP 97.4
[2022-03-15] MEDS ORDERED: SODIUM CHLORIDE 0.9% 1,000 ML IV STA (00:06)
[2022-03-15] MEDS ORDERED: ONDANSETRON 4 MG/2 ML VIAL IVP STA (00:06)
--- NOTE | 2022-03-15 00:15 | ED ---
General Adult HPI - General Chief complaint: Nausea/Vomiting/Diarrhea Stated complaint: Overdose Time Seen by Provider: 03/14/22 23:54 Source: patient, EMS Mode of arrival: EMS Limitations: no limitations - History of Present Illness Initial comments: Dictation was produced using [employer] dictation software. please excuse any grammatical, word or spelling errors. Chief Complaint: 36-year-old female past medical history of chronic pain presents to the ER for nausea vomiting History of Present Illness: 36-year-old female she has history of chronic pain. She sees pain specialist, Dr. Shannon. She has a implanted pain pump. She had an appointment with Dr. Shannon earlier today had her pain pump adjusted. Patient states that several hours later she began having bouts of nausea and vomiting. She called EMS and brought to the ER. Denies any bilious or bloody emesis. No diarrhea. No constitutional symptoms. The ROS documented in this emergency department record has been reviewed and confirmed by me. Those systems with pertinent positive or negative responses have been documented in the HPI. All other systems are other negative and/or noncontributory. PHYSICAL EXAM: General Impression: Alert and oriented x3, vomiting HEENT: Normocephalic atraumatic, extra-ocular movements intact, pupils equal and reactive to light bilaterally, mucous membranes moist. Cardiovascular: Heart regular rate and rhythm Chest: Able to complete full sentences, no retractions, no tachypnea Abdomen: abdomen soft, non-tender, non-distended, no organomegaly Musculoskeletal: Pulses present and equal in all extremities, no peripheral edema Motor: no focal deficits noted Neurological: CN II-XII grossly intact, no focal motor or sensory deficits noted Skin: Intact with no visualized rashes Psych: Normal affect and mood ED course: 36-year-old female presents to the ER for nausea and vomiting after having had her pain pump adjusted. She has history of chronic pain. Chart was reviewed patient shows signs of opiate dependence and withdrawal. Vital signs upon arrival are within acceptable limits. Nursing notes and chart review was performed Patient refusing blood work. Patient given dose of Dilaudid to curb her opiate withdrawal symptoms. She is advised to follow-up with her pain specialist for further management. - Related Data Home Medications Medication Instructions Recorded Confirmed Medroxyprogesterone Acetate 150 mg IM Q84D 11/22/13 10/07/20 [Depo-Provera] rOPINIRole HCL [Requip] 1 mg PO BID@0900,1200 11/22/13 10/07/20 Pentosan Polysulfate Sodium 100 mg PO DAILY 02/10/15 10/07/20 [Elmiron] HYDROcodone/APAP 7.5-325MG [[place] 1 tab PO BID 07/20/16 10/07/20 7.5-325] Paliperidone IM Pt Own [Invega 117 mg IM Q28D 07/20/16 10/07/20 Sustenna] amantadine HCL [Symmetrel] 100 mg PO BID 11/21/16 10/07/20 Albuterol Sulfate [Proair Hfa] 2 puff INHALATION RT-QID PRN 01/13/18 10/07/20 Butalb/Acetaminophen/Caffeine 1 tab PO Q8H PRN 01/13/18 10/07/20 [Fioricet 50-325-40] Fluticasone Propionate [Flovent 1 puff INHALATION RT-BID 01/13/18 10/07/20 Hfa 110 mcg] gemfibroziL [Lopid] 600 mg PO BID 01/13/18 10/07/20 Gabapentin [Neurontin] 300 mg PO TID 03/11/18 10/07/20 Gabapentin [Neurontin] 600 mg PO TID 09/16/19 10/07/20 Omeprazole [PriLOSEC] 40 mg PO DAILY 09/16/19 10/07/20 rOPINIRole HCL [Requip] 2 mg PO HS 09/16/19 10/07/20 traZODone HCL 300 mg PO HS 09/16/19 10/07/20 hydrOXYzine pamoate [hydrOXYzine 25 mg PO BID 04/13/20 10/07/20 PAMOATE] Cyclobenzaprine [Flexeril] 10 mg PO TID PRN 08/16/20 10/07/20 Fentanyl/Bupivcaine Pain Pump 1 dose INTRATHECA CONTINUOUS 08/16/20 10/07/20 Ibuprofen [Motrin] 600 mg PO TID PRN 10/07/20 10/07/20 diphenhydrAMINE [Benadryl] 50 mg PO DAILY PRN 10/07/20 10/07/20 Previous Rx's Medication Instructions Recorded Erythromycin Ophth Oint [Romycin 1 applic RIGHT EYE QID #1 bottle 10/03/20 Ophth Oint] Ondansetron Odt [Zofran Odt] 4 mg PO Q8HR PRN #14 tab 10/16/20 Ondansetron Odt [Zofran Odt] 4 mg PO Q8HR PRN #10 tab 06/21/21 predniSONE [Deltasone] 20 mg PO BID #10 tab 09/08/21 Cephalexin [Keflex] 500 mg PO Q8HR 7 Days #21 cap 11/25/21 Fluconazole [Diflucan] 150 mg PO ONCE #1 tab 11/25/21 Allergies Allergy/AdvReac Type Severity Reaction Status Date / Time azithromycin Allergy Rash/Hives Verified 03/10/22 22:01 [From Zithromax Z-Mehrdad] cimetidine [From Tagamet] Allergy Rash/Hives Verified 03/10/22 22:01 ether [Ether] Allergy Anaphylaxis Verified 03/10/22 22:01 Fish Containing Products Allergy Anaphylaxis Verified 03/10/22 22:01 [Fish] ibuprofen [From Motrin] Allergy Rash/Hives Verified 03/10/22 22:01 morphine Allergy Unknown Verified 03/10/22 22:01 ziprasidone HCl [From Geodon] Allergy Extrapyramidal Verified 03/10/22 22:01 Symptoms ciprofloxacin [From Cipro] AdvReac Rash/Hives Verified 03/10/22 22:01 fluphenazine HCl AdvReac Extrapyramidal Verified 03/10/22 22:01 [From Prolixin] Symptoms haloperidol [From Haldol] AdvReac Extrapyramidal Verified 03/10/22 22:01 Symptoms Sulfa (Sulfonamide AdvReac Nausea & Verified 03/10/22 22:01 Antibiotics) Vomiting Review of Systems ROS Statement: Those systems with pertinent positive or pertinent negative responses have been documented in the HPI. ROS Other: All systems not noted in ROS Statement are negative. Past Medical History Past Medical History: Asthma, GERD/Reflux, Hyperlipidemia, Musculoskeletal Disorder, Neurologic Disorder, Osteoarthritis (OA), Seizure Disorder Additional Past Medical History / Comment(s): RSD-DERIC FEET, INTERSTITIAL CYSTITIS, BRONCHITIS, HEMORRHOIDS,MIGRAINES, INSOMNIA. VERTIGO, last seizure 4 years ago, complex regional pain syndrome, RLS. History of Any Multi-Drug Resistant Organisms: MRSA Date of last positivie culture/infection: 04/20/15 MDRO Source:: Left Axilla Past Surgical History: Adenoidectomy, Back Surgery, Cholecystectomy, Orthopedic Surgery, Tonsillectomy Additional Past Surgical History / Comment(s): bilateral foot surgery d/t rsd, numerous pain clinic procedures, nerve stimulator in back to tx RSD placed in Nov 11 2015, pain pump placement, replacement of stimulator 06/2021 Past Anesthesia/Blood Transfusion Reactions: Previous Problems w/ Anesthesia Additional Past Anesthesia/Blood Transfusion Reaction / Comment(s): Pt recieved blood when she was 2 yrs old after tonsillectomy. WHEN BABY HEART STOPPED TWICE- PT STATED SHE WAS ALLERGIC TO ETHER. Past Psychological History: Anxiety, Bipolar, Depression, PTSD Smoking Status: Never smoker Past Alcohol Use History: None Reported Past Drug Use History: Marijuana - Past Family History Father History Unknown: Yes Family Medical History: Diabetes Mellitus Mother Family Medical History: Cancer, CVA/TIA, Diabetes Mellitus, Myocardial Infarction (CT) Additional Family Medical History / Comment(s): Mother has had 5 CVAs, 3 MIs and UTERINE CANCER General Exam Limitations: no limitations Course Vital Signs 03/15/22 00:00 Temperature 97.4 F L Pulse Rate 107 H Respiratory 16 Rate Blood Pressure 151/98 O2 Sat by Pulse 96 Oximetry Disposition Clinical Impression: Opioid withdrawal Disposition: HOME SELF-CARE Condition: Good Instructions (If sedation given, give patient instructions): Opioid Withdrawal (ED) Is patient prescribed a controlled substance at d/c from ED?: No Referrals: China Doyle MD [Primary Care Provider] - 1-2 days Time of Disposition: 00:48
[2022-03-15] MEDS ORDERED: HYDROmorphone 1 MG/ML 1 ML SYRINGE IVP STA (00:47)
[2022-03-15 01:17] VITALS: BP 140/70; PULSE 88
== END 2022-03-15 01:17 | disposition home or self-care (01) ==
LOC: EC 23:53
DX: F11.23 Opioid dependence with withdrawal (principal); J45.909 Unspecified asthma, uncomplicated; K21.9 Gastro-esophageal reflux disease without esophagitis; E78.5 Hyperlipidemia, unspecified; F31.9 Bipolar disorder, unspecified; F41.9 Anxiety disorder, unspecified; Z88.6 Allergy status to analgesic agent; Z88.1 Allergy status to other antibiotic agents; Z88.8 Allergy status to other drugs, medicaments and biological substances; Z79.899 Other long term (current) drug therapy
CPT/HCPCS: 99284; 96374; 96375; 96361; J2405; J1170

== ENCOUNTER 2022-03-26 03:48 | Emergency (ER) | payer MEDICARE, OTHER ==
[2022-03-26 03:57] VITALS: TEMP 98
[2022-03-26] MEDS ORDERED: guaiFENesin-DM 100-10MG/5ML 10 ML CUP PO STA (04:17)
--- NOTE | 2022-03-26 04:36 | XR ---
EXAMINATION TYPE: XR chest 2V DATE OF EXAM: 03/26/2022 COMPARISON: 08/31/2020 HISTORY: Short of breath TECHNIQUE: 2 views FINDINGS: Heart and mediastinum are normal. Lungs are clear. Diaphragm is normal. Bony thorax appears normal. IMPRESSION: Normal chest. No change.
[2022-03-26] MEDS ORDERED: diphenhydrAMINE 25 MG CAP PO STA (04:54)
--- NOTE | 2022-03-26 05:10 | ED ---
General Adult HPI - General Chief complaint: Upper Respiratory Infection Stated complaint: Difficulty Breathing, Cough Time Seen by Provider: 03/26/22 03:58 Source: patient Mode of arrival: ambulatory - History of Present Illness Initial comments: This is a 36-year-old female who is well-known to the emergency department presented emergency department for cough, congestion and body aches. The patient stated this has been occurring over the last 2 days and she stated that she did try to use [id number] medications but has not improved. The patient stated that she just feels bad she came to the emergency department for evaluation. The patient denied any recent sick contacts that she is aware of. The patient denied any lightheadedness or shortness of breath and did state that she only was having spit up episodes because she continued to cough. The patient denied any fevers and chills currently and denied any current vomiting but was mildly nauseous. - Related Data Home Medications Medication Instructions Recorded Confirmed Medroxyprogesterone Acetate 150 mg IM Q84D 11/22/13 10/07/20 [Depo-Provera] rOPINIRole HCL [Requip] 1 mg PO BID@0900,1200 11/22/13 10/07/20 Pentosan Polysulfate Sodium 100 mg PO DAILY 02/10/15 10/07/20 [Elmiron] HYDROcodone/APAP 7.5-325MG [[place] 1 tab PO BID 07/20/16 10/07/20 7.5-325] Paliperidone IM Pt Own [Invega 117 mg IM Q28D 07/20/16 10/07/20 Sustenna] amantadine HCL [Symmetrel] 100 mg PO BID 11/21/16 10/07/20 Albuterol Sulfate [Proair Hfa] 2 puff INHALATION RT-QID PRN 01/13/18 10/07/20 Butalb/Acetaminophen/Caffeine 1 tab PO Q8H PRN 01/13/18 10/07/20 [Fioricet 50-325-40] Fluticasone Propionate [Flovent 1 puff INHALATION RT-BID 01/13/18 10/07/20 Hfa 110 mcg] gemfibroziL [Lopid] 600 mg PO BID 01/13/18 10/07/20 Gabapentin [Neurontin] 300 mg PO TID 03/11/18 10/07/20 Gabapentin [Neurontin] 600 mg PO TID 09/16/19 10/07/20 Omeprazole [PriLOSEC] 40 mg PO DAILY 09/16/19 10/07/20 rOPINIRole HCL [Requip] 2 mg PO HS 09/16/19 10/07/20 traZODone HCL 300 mg PO HS 09/16/19 10/07/20 hydrOXYzine pamoate [hydrOXYzine 25 mg PO BID 04/13/20 10/07/20 PAMOATE] Cyclobenzaprine [Flexeril] 10 mg PO TID PRN 08/16/20 10/07/20 Fentanyl/Bupivcaine Pain Pump 1 dose INTRATHECA CONTINUOUS 08/16/20 10/07/20 Ibuprofen [Motrin] 600 mg PO TID PRN 10/07/20 10/07/20 diphenhydrAMINE [Benadryl] 50 mg PO DAILY PRN 10/07/20 10/07/20 Previous Rx's Medication Instructions Recorded Erythromycin Ophth Oint [Romycin 1 applic RIGHT EYE QID #1 bottle 10/03/20 Ophth Oint] Ondansetron Odt [Zofran Odt] 4 mg PO Q8HR PRN #14 tab 10/16/20 Ondansetron Odt [Zofran Odt] 4 mg PO Q8HR PRN #10 tab 06/21/21 predniSONE [Deltasone] 20 mg PO BID #10 tab 09/08/21 Cephalexin [Keflex] 500 mg PO Q8HR 7 Days #21 cap 11/25/21 Fluconazole [Diflucan] 150 mg PO ONCE #1 tab 11/25/21 Allergies Allergy/AdvReac Type Severity Reaction Status Date / Time azithromycin Allergy Rash/Hives Verified 03/26/22 03:56 [From Zithromax Z-Mehrdad] cimetidine [From Tagamet] Allergy Rash/Hives Verified 03/26/22 03:56 ether [Ether] Allergy Anaphylaxis Verified 03/26/22 03:56 Fish Containing Products Allergy Anaphylaxis Verified 03/26/22 03:56 [Fish] ibuprofen [From Motrin] Allergy Rash/Hives Verified 03/26/22 03:56 morphine Allergy Unknown Verified 03/26/22 03:56 ziprasidone HCl [From Geodon] Allergy Extrapyramidal Verified 03/26/22 03:56 Symptoms ciprofloxacin [From Cipro] AdvReac Rash/Hives Verified 03/26/22 03:56 fluphenazine HCl AdvReac Extrapyramidal Verified 03/26/22 03:56 [From Prolixin] Symptoms haloperidol [From Haldol] AdvReac Extrapyramidal Verified 03/26/22 03:56 Symptoms Sulfa (Sulfonamide AdvReac Nausea & Verified 03/26/22 03:56 Antibiotics) Vomiting Review of Systems ROS Statement: Those systems with pertinent positive or pertinent negative responses have been documented in the HPI. ROS Other: All systems not noted in ROS Statement are negative. Past Medical History Past Medical History: Asthma, GERD/Reflux, Hyperlipidemia, Musculoskeletal Disorder, Neurologic Disorder, Osteoarthritis (OA), Seizure Disorder Additional Past Medical History / Comment(s): RSD-DERIC FEET, INTERSTITIAL CYSTITIS, BRONCHITIS, HEMORRHOIDS,MIGRAINES, INSOMNIA. VERTIGO, last seizure 4 years ago, complex regional pain syndrome, RLS. History of Any Multi-Drug Resistant Organisms: MRSA Date of last positivie culture/infection: 04/20/15 MDRO Source:: Left Axilla Past Surgical History: Adenoidectomy, Back Surgery, Cholecystectomy, Orthopedic Surgery, Tonsillectomy Additional Past Surgical History / Comment(s): bilateral foot surgery d/t rsd, numerous pain clinic procedures, nerve stimulator in back to tx RSD placed in Nov 11 2015, pain pump placement, replacement of stimulator 06/2021 Past Anesthesia/Blood Transfusion Reactions: Previous Problems w/ Anesthesia Additional Past Anesthesia/Blood Transfusion Reaction / Comment(s): Pt recieved blood when she was 2 yrs old after tonsillectomy. WHEN BABY HEART STOPPED TWICE- PT STATED SHE WAS ALLERGIC TO ETHER. Past Psychological History: Anxiety, Bipolar, Depression, PTSD Smoking Status: Never smoker Past Alcohol Use History: None Reported Past Drug Use History: Marijuana - Past Family History Father History Unknown: Yes Family Medical History: Diabetes Mellitus Mother Family Medical History: Cancer, CVA/TIA, Diabetes Mellitus, Myocardial Infarction ([place]) Additional Family Medical History / Comment(s): Mother has had 5 CVAs, 3 MIs and UTERINE CANCER General Exam Limitations: no limitations General appearance: alert, in no apparent distress Head exam: Present: atraumatic, normocephalic, normal inspection Eye exam: Present: normal appearance, PERRL Pupils: Present: normal accommodation ENT exam: Present: normal exam, normal oropharynx, mucous membranes moist Neck exam: Present: normal inspection, full ROM Respiratory exam: Present: normal lung sounds bilaterally Cardiovascular Exam: Present: regular rate, normal rhythm, normal heart sounds GI/Abdominal exam: Present: soft, normal bowel sounds Extremities exam: Present: normal inspection, full ROM, normal capillary refill Back exam: Present: normal inspection, full ROM Neurological exam: Present: alert, oriented X3, CN II-XII intact Psychiatric exam: Present: normal affect, normal mood Skin exam: Present: warm, dry Course Vital Signs 03/26/22 03:53 Temperature 98 F Pulse Rate 94 Respiratory 20 Rate Blood Pressure 183/98 O2 Sat by Pulse 95 Oximetry Medical Decision Making - Medical Decision Making Was pt. sent in by a medical professional or institution? @ -No Did you speak to anyone other than the patient for history? @ -No Did you review nursing and triage notes? @ -Nursing and triage notes were reviewed Were old charts reviewed? @ -No Differential Diagnosis? @ -Acute URI, COVID-19, influenza a, drug seeking behavior EKG interpreted by me (3pts min.)? @ -[none] X-rays interpreted by me (1pt min.)? @ -X-ray of the chest was obtained and was interpreted by myself showing no acute process. CT interpreted by me (1pt min.)? @ -[none] U/S interpreted by me (1pt. min.)? @ -[none] What testing was considered but not performed? (CT, X-rays, U/S, labs)? Why? @None What meds were considered but not given? Why? @ -[none] Did you discuss the management of the patient with other professionals? @ -No Did you reconcile home meds? @ -[none] Was smoking cessation discussed for >3mins.? @ -Yes Was critical care preformed (if so, how long)? @ -[none] Were there social determinants of health that impacted care today? How? (Homelessness, low income, unemployed, alcoholism, drug addiction, transportation, low edu. Level, literacy, decrease access to med. care, usp, rehab)? @ -None Was there de-escalation of care discussed even if they declined? (Discuss DNR or withdrawal of care, Hospice)? @ -No What co-morbidities impacted this encounter? (DM, HTN, Smoking, COPD, CAD, Cancer, CVA, Hep., AIDS, mental health diagnosis, sleep apnea, morbid obesity)? @ -Previous hypertension, multiple emergency room visits, drug seeking behavior Was patient admitted / discharged? @ -The patient was seen and evaluated emergency department. Physical exam, the patient was coughing but was not any acute distress. Vital signs are stable. The patient had swabs performed for COVID-19, influenza and RSV as well as a chest x-ray ordered. The patient also received Robitussin for her cough. While waiting in the emergency department for the testing, the patient did complain of pain and did request Toradol and Benadryl as she is ALLERGIC to NSAIDs but stated that she can take Benadryl with them. The patient was however given Toradol IM and 25 mg of Benadryl by mouth. Shortly after this was given, the patient stated that she no longer wanted to wait in the emergency department and eloped from the emergency department while was seen in another patient. The patient did elope in stable condition. Undiagnosed new problem with uncertain prognosis? @ -[none] Drug Therapy requiring intensive monitoring for toxicity (Heparin, Nitro, Insulin, Cardizem)? @ -[none] Were any procedures done? @ -[none] Diagnosis/symptom? @ -Acute viral URI, drug seeking behavior Acute, or Chronic, or Acute on Chronic? @ -Acute Uncomplicated (without systemic symptoms) or Complicated (systemic symptoms)? @ -Uncomplicated Side effects of treatment? @ -[none] Exacerbation, Progression, or Severe Exacerbation] @ -[no] Poses a threat to life or bodily function? @ -[no] Disposition Clinical Impression: Upper respiratory tract infection, Drug-seeking behavior Disposition: Left Against Medical Advice Condition: Stable Is patient prescribed a controlled substance at d/c from ED?: No Referrals: China Doyle MD [Primary Care Provider] - 1-2 days Time of Disposition: 05:35
[2022-03-26] MEDS ORDERED: KETOROLAC 15 MG/ML 1 ML VIAL IM SCH (06:00)
[2022-03-26 06:11] VITALS: BP 137/85; PULSE 92; RESP 18
== END 2022-03-26 05:30 | disposition left against medical advice (07) ==
LOC: EC 03:48
DX: J06.9 Acute upper respiratory infection, unspecified (principal); Z76.5 Malingerer [conscious simulation]; J45.909 Unspecified asthma, uncomplicated; K21.9 Gastro-esophageal reflux disease without esophagitis; E78.5 Hyperlipidemia, unspecified; M19.90 Unspecified osteoarthritis, unspecified site; G40.909 Epilepsy, unspecified, not intractable, without status epilepticus; F41.9 Anxiety disorder, unspecified; F31.9 Bipolar disorder, unspecified; F12.90 Cannabis use, unspecified, uncomplicated; Z88.0 Allergy status to penicillin; Z88.8 Allergy status to other drugs, medicaments and biological substances; Z91.013 Allergy to seafood; Z88.6 Allergy status to analgesic agent; Z88.2 Allergy status to sulfonamides; Z79.899 Other long term (current) drug therapy; Z53.29 Procedure and treatment not carried out because of patient's decision for other reasons
CPT/HCPCS: 87636; 71046; 99285; 96372; J1885

== ENCOUNTER 2022-09-20 03:01 | Emergency (ER) | payer MEDICARE, OTHER ==
[2022-09-20 03:10] VITALS: TEMP 98.2
[2022-09-20] MEDS ORDERED: HYDROmorphone 1 MG/ML 1 ML SYRINGE IVP STA (03:56)
[2022-09-20] MEDS ORDERED: ONDANSETRON 4 MG/2 ML VIAL IVP STA (03:56)
[2022-09-20 04:25] LABS: Basophils % (A) 0 %; Eosinophils # (A) 0.2 k/uL (0-0.7); Eosinophils % (A) 4 %; HCT 39.6 % (34.0-46.0); HGB 13.9 gm/dL (11.4-16.0); Lymphocytes # (A) 2.2 k/uL (1.0-4.8); Lymphocytes % (A) 37 %; MCH 29.9 pg (25.0-35.0); MCHC 34.9 g/dL (31.0-37.0); MCV 85.6 fL (80.0-100.0); Mean Platelet Volume 7.7; Monocytes # (A) 0.3 k/uL (0-1.0); Monocytes % (A) 4 %; Neutrophils # (A) 3.2 k/uL (1.3-7.7); Neutrophils % (A) 53 %; Platelet Count 233 k/uL (150-450); RBC 4.63 m/uL (3.80-5.40); RDW 12.9 % (11.5-15.5)
[2022-09-20 04:29] VITALS: RESP 18
[2022-09-20 04:44] LABS: ALT 17 U/L (4-34); AST 21 U/L (14-36); African American GFR (CKD) >90 (>60 ml/min/1.73 sqM); Albumin 4.7 g/dL (3.5-5.0); Alkaline Phosphatase 108 U/L (38-126); Anion Gap 12 mmol/L; Blood Urea Nitrogen 12 mg/dL (7-17); Calcium 9.9 mg/dL (8.4-10.2); Carbon Dioxide 21 mmol/L (22-30); Chloride 105 mmol/L (98-107); Glucose 100 mg/dL (74-99); Non-African American GFR(CKD) >90 (>60 ml/min/1.73 sqM); Potassium 3.8 mmol/L (3.5-5.1); Sodium 138 mmol/L (137-145); Total Bilirubin 0.3 mg/dL (0.2-1.3); Total Protein 6.8 g/dL (6.3-8.2)
[2022-09-20] MEDS ORDERED: KETOROLAC 15 MG/ML 1 ML VIAL IVP STA (04:51)
[2022-09-20] MEDS ORDERED: diphenhydrAMINE 50 MG/ML 1 ML VIAL IVP STA (04:51)
[2022-09-20 05:12] VITALS: BP 132/97; PULSE 100
--- NOTE | 2022-09-20 06:14 | ED ---
General Adult HPI - General Chief complaint: Recheck/Abnormal Lab/Rx Stated complaint: Pain pump complications Time Seen by Provider: 09/20/22 03:10 Source: patient Mode of arrival: ambulatory Limitations: no limitations - History of Present Illness Initial comments: 36-year-old female with past medical history of complex regional pain syndrome who presents to the emergency department reporting pain around her pain pump site. States that last week she fell in her kitchen and hit the side of her pain pump. States that since then she has been having worsening abdominal pain. She called Dr. Shannon's office who stated that they would see her in the morning. She states she's been so cupful that she came in for evaluation tonight. Denies any changes in her bowel or bladder habits. Has not been taking anything additional at home for pain control. No other alleviating, precipitating or modifying factors - Related Data Home Medications Medication Instructions Recorded Confirmed Medroxyprogesterone Acetate 150 mg IM Q84D 11/22/13 10/07/20 [Depo-Provera] rOPINIRole HCL [Requip] 1 mg PO BID@0900,1200 11/22/13 10/07/20 Pentosan Polysulfate Sodium 100 mg PO DAILY 02/10/15 10/07/20 [Elmiron] HYDROcodone/APAP 7.5-325MG [Cruger 1 tab PO BID 07/20/16 10/07/20 7.5-325] Paliperidone IM Pt Own [Invega 117 mg IM Q28D 07/20/16 10/07/20 Sustenna] amantadine HCL [Symmetrel] 100 mg PO BID 11/21/16 10/07/20 Albuterol Sulfate [Proair Hfa] 2 puff INHALATION RT-QID PRN 01/13/18 10/07/20 Butalb/Acetaminophen/Caffeine 1 tab PO Q8H PRN 01/13/18 10/07/20 [Fioricet 50-325-40] Fluticasone Propionate [Flovent 1 puff INHALATION RT-BID 01/13/18 10/07/20 Hfa 110 mcg] gemfibroziL [Lopid] 600 mg PO BID 01/13/18 10/07/20 Gabapentin [Neurontin] 300 mg PO TID 03/11/18 10/07/20 Gabapentin [Neurontin] 600 mg PO TID 09/16/19 10/07/20 Omeprazole [PriLOSEC] 40 mg PO DAILY 09/16/19 10/07/20 rOPINIRole HCL [Requip] 2 mg PO HS 09/16/19 10/07/20 traZODone HCL 300 mg PO HS 09/16/19 10/07/20 hydrOXYzine pamoate [hydrOXYzine 25 mg PO BID 04/13/20 10/07/20 PAMOATE] Cyclobenzaprine [Flexeril] 10 mg PO TID PRN 08/16/20 10/07/20 Fentanyl/Bupivcaine Pain Pump 1 dose INTRATHECA CONTINUOUS 08/16/20 10/07/20 Ibuprofen [Motrin] 600 mg PO TID PRN 10/07/20 10/07/20 diphenhydrAMINE [Benadryl] 50 mg PO DAILY PRN 10/07/20 10/07/20 Previous Rx's Medication Instructions Recorded Erythromycin Ophth Oint [Romycin 1 applic RIGHT EYE QID #1 bottle 10/03/20 Ophth Oint] Ondansetron Odt [Zofran Odt] 4 mg PO Q8HR PRN #14 tab 10/16/20 Ondansetron Odt [Zofran Odt] 4 mg PO Q8HR PRN #10 tab 06/21/21 predniSONE [Deltasone] 20 mg PO BID #10 tab 09/08/21 Cephalexin [Keflex] 500 mg PO Q8HR 7 Days #21 cap 11/25/21 Fluconazole [Diflucan] 150 mg PO ONCE #1 tab 11/25/21 Allergies Allergy/AdvReac Type Severity Reaction Status Date / Time azithromycin Allergy Rash/Hives Verified 09/20/22 03:10 [From Zithromax Z-Mehrdad] cimetidine [From Tagamet] Allergy Rash/Hives Verified 09/20/22 03:10 codeine Allergy Nausea & Verified 09/20/22 03:10 Vomiting ether [Ether] Allergy Anaphylaxis Verified 09/20/22 03:10 Fish Containing Products Allergy Anaphylaxis Verified 09/20/22 03:10 [Fish] ibuprofen [From Motrin] Allergy Rash/Hives Verified 09/20/22 03:10 morphine Allergy Unknown Verified 09/20/22 03:10 ziprasidone HCl [From Geodon] Allergy Extrapyramidal Verified 09/20/22 03:10 Symptoms ciprofloxacin [From Cipro] AdvReac Rash/Hives Verified 09/20/22 03:10 fluphenazine HCl AdvReac Extrapyramidal Verified 09/20/22 03:10 [From Prolixin] Symptoms haloperidol [From Haldol] AdvReac Extrapyramidal Verified 09/20/22 03:10 Symptoms Sulfa (Sulfonamide AdvReac Nausea & Verified 09/20/22 03:10 Antibiotics) Vomiting Review of Systems ROS Statement: Those systems with pertinent positive or pertinent negative responses have been documented in the HPI. ROS Other: All systems not noted in ROS Statement are negative. Past Medical History Past Medical History: Asthma, GERD/Reflux, Hyperlipidemia, Musculoskeletal Disorder, Neurologic Disorder, Osteoarthritis (OA), Seizure Disorder Additional Past Medical History / Comment(s): RSD-DERIC FEET, INTERSTITIAL CYSTITIS, BRONCHITIS, HEMORRHOIDS,MIGRAINES, INSOMNIA. VERTIGO, last seizure 4 years ago, complex regional pain syndrome, RLS. History of Any Multi-Drug Resistant Organisms: MRSA Date of last positivie culture/infection: 04/20/15 MDRO Source:: Left Axilla Past Surgical History: Adenoidectomy, Back Surgery, Cholecystectomy, Orthopedic Surgery, Tonsillectomy Additional Past Surgical History / Comment(s): bilateral foot surgery d/t rsd, numerous pain clinic procedures, nerve stimulator in back to tx RSD placed in Nov 11 2015, pain pump placement, replacement of stimulator 06/2021 Past Anesthesia/Blood Transfusion Reactions: Previous Problems w/ Anesthesia Additional Past Anesthesia/Blood Transfusion Reaction / Comment(s): Pt recieved blood when she was 2 yrs old after tonsillectomy. WHEN BABY HEART STOPPED TWICE- PT STATED SHE WAS ALLERGIC TO ETHER. Past Psychological History: Anxiety, Bipolar, Depression, PTSD Smoking Status: Never smoker Past Alcohol Use History: None Reported Past Drug Use History: Marijuana - Past Family History Father History Unknown: Yes Family Medical History: Diabetes Mellitus Mother Family Medical History: Cancer, CVA/TIA, Diabetes Mellitus, Myocardial Infarction (MD) Additional Family Medical History / Comment(s): Mother has had 5 CVAs, 3 MIs and UTERINE CANCER General Exam Limitations: no limitations General appearance: alert, in no apparent distress Head exam: Present: atraumatic, normocephalic, normal inspection Eye exam: Present: normal appearance, PERRL, EOMI. Absent: scleral icterus, conjunctival injection, periorbital swelling ENT exam: Present: normal exam, mucous membranes moist Neck exam: Present: normal inspection. Absent: tenderness, meningismus, lymphadenopathy Respiratory exam: Present: normal lung sounds bilaterally. Absent: respiratory distress, wheezes, rales, rhonchi, stridor Cardiovascular Exam: Present: regular rate, normal rhythm, normal heart sounds. Absent: systolic murmur, diastolic murmur, rubs, gallop, clicks GI/Abdominal exam: Present: soft, tenderness (left side over pain pump), normal bowel sounds. Absent: distended, guarding, rebound, rigid Extremities exam: Present: normal inspection, full ROM, normal capillary refill. Absent: tenderness, pedal edema, joint swelling, calf tenderness Back exam: Present: normal inspection Neurological exam: Present: alert, oriented X3, CN II-XII intact Psychiatric exam: Present: normal affect, normal mood Skin exam: Present: warm, dry, intact, normal color. Absent: rash Course Vital Signs 09/20/22 09/20/22 09/20/22 03:07 04:29 05:04 Temperature 98.2 F Pulse Rate 88 97 100 Respiratory 16 18 18 Rate Blood Pressure 160/86 134/92 132/97 O2 Sat by Pulse 98 97 98 Oximetry Medical Decision Making - Medical Decision Making Was pt. sent in by a medical professional or institution ([facility]es, VOCATIONAL REHABILITATION TEACHER, urgent c are, hospital, or jail...) When possible be specific @ -No Did you speak to anyone other than the patient for history (EMS, parent, family, police, friend...)? What history was obtained from this source @ -No Did you review nursing and triage notes (agree or disagree)? Why? @ -I reviewed and agree with nursing and triage notes Were old charts reviewed (outside hosp., previous admission, EMS record, old EKG, old radiological studies, urgent care reports/EKG's, jail records)? Report findings @ -No old charts were reviewed Differential Diagnosis (chest pain, altered mental status, abdominal pain women, abdominal pain men, vaginal bleeding, weakness, fever, dyspnea, syncope, headache, dizziness, GI bleed, back pain, seizure, CVA, palpatations, mental health, musculoskeletal)? @ -pump malfunction, pump infection, cellulitis EKG interpreted by me (3pts min.). @ -Not done X-rays interpreted by me (1pt min.). @ -Not done CT interpreted by me (1pt min.). @ -yes - no acute process U/S interpreted by me (1pt. min.). @ -None done What testing was considered but not performed or refused? (CT, X-rays, U/S, labs)? Why? @ -None What meds were considered but not given or refused? Why? @ -None Did you discuss the management of the patient with other professionals (professionals i.e. Dr., PA, VOCATIONAL REHABILITATION TEACHER, lab, RT, psych nurse, protective services social worker, church history teacher, teacher, driver's license reviewing officer, case folder)? Give summary @ -no Was smoking cessation discussed for >3mins.? @ -yes Was critical care preformed (if so, how long)? @ -No Were there social determinants of health that impacted care today? How? (Homelessness, low income, unemployed, alcoholism, drug addiction, transportation, low edu. Level, literacy, decrease access to med. care, retirement, rehab)? @ -No Was there de-escalation of care discussed even if they declined (Discuss DNR or withdrawal of care, Hospice)? DNR status @ -No What co-morbidities impacted this encounter? (DM, HTN, Smoking, COPD, CAD, Cancer, CVA, ARF, Chemo, Hep., AIDS, mental health diagnosis, sleep apnea, morbid obesity)? @ -chronic pain Was patient admitted / discharged? Hospital course, mention meds given and route, prescriptions, significant lab abnormalities, going to OR and other pertinent info. @ -Upon arrival patient was placed into room 23. There are history and physical exam was performed. IV is established and laboratory studies were conducted. Patient given 1 mg of Dilaudid. Patient does go for CT of her abdomen and pelvis. She is requesting to leave prior to imaging results. I nformed her of the risks of not completing her. Evaluation. Risks include permanent facility and even . Patient was agreeable to these risks and continued to want to leave. She needs to call her neurologist in the morning for further treatment and return for any new or worsening symptoms palpation agreeable discharged in stable condition Undiagnosed new problem with uncertain prognosis? @ -yes Drug Therapy requiring intensive monitoring for toxicity (Heparin, Nitro, Insulin, Cardizem)? @ -No Were any procedures done? @ -No Diagnosis/symptom? @ -acute abd pain Acute, or Chronic, or Acute on Chronic? @ -acute Uncomplicated (without systemic symptoms) or Complicated (systemic symptoms)? @ -complicated Side effects of treatment? @ -none Exacerbation, Progression, or Severe Exacerbation? @ -no Poses a threat to life or bodily function? How? (Chest pain, USA, MD, pneumonia, PE, COPD, DKA, ARF, appy, cholecystitis, CVA, Diverticulitis, Homicidal, Suicidal, threat to staff... and all critical care pts) @ -No - Lab Data Result diagrams: 09/20/22 04:15 09/20/22 04:15 Lab Results 09/20/22 09/20/22 Range/Units 04:15 04:15 WBC 6.0 (3.8-10.6) k/uL RBC 4.63 (3.80-5.40) m/uL Hgb 13.9 (11.4-16.0) gm/dL Hct 39.6 (34.0-46.0) % MCV 85.6 (80.0-100.0) fL MCH 29.9 (25.0-35.0) pg MCHC 34.9 (31.0-37.0) g/dL RDW 12.9 (11.5-15.5) % Plt Count 233 (150-450) k/uL MPV 7.7 Neutrophils % 53 % Lymphocytes % 37 % Monocytes % 4 % Eosinophils % 4 % Basophils % 0 % Neutrophils # 3.2 (1.3-7.7) k/uL Lymphocytes # 2.2 (1.0-4.8) k/uL Monocytes # 0.3 (0-1.0) k/uL Eosinophils # 0.2 (0-0.7) k/uL Basophils # 0.0 (0-0.2) k/uL Sodium 138 (137-145) mmol/L Potassium 3.8 (3.5-5.1) mmol/L Chloride 105 (98-107) mmol/L Carbon Dioxide 21 L (22-30) mmol/L Anion Gap 12 mmol/L BUN 12 (7-17) mg/dL Creatinine 0.77 (0.52-1.04) mg/dL Est GFR (CKD-EPI)AfAm >90 (>60 ml/min/1.73 sqM) Est GFR (CKD-EPI)NonAf >90 (>60 ml/min/1.73 sqM) Glucose 100 H (74-99) mg/dL Calcium 9.9 (8.4-10.2) mg/dL Total Bilirubin 0.3 (0.2-1.3) mg/dL AST 21 (14-36) U/L ALT 17 (4-34) U/L Alkaline Phosphatase 108 (38-126) U/L Total Protein 6.8 (6.3-8.2) g/dL Albumin 4.7 (3.5-5.0) g/dL Disposition Clinical Impression: Chronic pain Disposition: HOME SELF-CARE Condition: Stable Instructions (If sedation given, give patient instructions): Chronic Pain (ED) Additional Instructions: Your CAT scan is not back yet. You are leaving knowing the risks of permanent disability and even . Should you be agreeable to further treatment, return to the emergency room. Recommend that you call your neurologist for your symptoms Is patient prescribed a controlled substance at d/c from ED?: No Referrals: Enzo Rojas MD [Primary Care Provider] - 1-2 days Time of Disposition: 06:13
--- NOTE | 2022-09-20 06:22 | CT ---
EXAM: CT Abdomen and Pelvis With Intravenous Contrast CLINICAL HISTORY: ITS.REASON CT Reason: pain pump pain TECHNIQUE: Axial computed tomography images of the abdomen and pelvis with intravenous contrast. This CT exam was performed using one or more of the following dose reduction techniques: automated exposure control, adjustment of the mA and/or kV according to patient size, and/or use of iterative reconstruction technique. COMPARISON: CT abdomen pelvis performed 06/08/21 FINDINGS: Lung bases: Unremarkable. No mass. No consolidation. ABDOMEN: Liver: Unremarkable. No mass. Gallbladder and bile ducts: Cholecystectomy with mild residual biliary ductal dilation, stable. Pancreas: Unremarkable. No mass. No ductal dilation. Spleen: Unremarkable. No splenomegaly. Adrenals: Unremarkable. No mass. Kidneys and ureters: Unremarkable. No solid mass. No hydronephrosis. Stomach and bowel: Unremarkable. No obstruction. No mucosal thickening. PELVIS: Appendix: No findings to suggest acute appendicitis. Bladder: Unremarkable. No mass. Reproductive: Unremarkable as visualized. ABDOMEN and PELVIS: Intraperitoneal space: No free air. No significant fluid collection. Bones/joints: No acute fracture. No dislocation. Soft tissues: Pain pump along the left lower abdominal wall with streak artifact limiting evaluation of the adjacent structures. Although, no significant soft tissue abnormality seen surrounding the pain pump. Vasculature: Unremarkable. No abdominal aortic aneurysm. Lymph nodes: No enlarged lymph nodes. Tubes, lines and devices: Spinal stimulator noted along the right lower back with leads terminating in the spinal canal. Streak artifact limits evaluation of the adjacent structures. IMPRESSION: No acute findings in the abdomen or pelvis or significant change from 06/08/21
== END 2022-09-20 06:17 | disposition home or self-care (01) ==
LOC: EC 03:01
DX: G89.29 Other chronic pain (principal); J45.909 Unspecified asthma, uncomplicated; K21.9 Gastro-esophageal reflux disease without esophagitis; E78.5 Hyperlipidemia, unspecified; M19.90 Unspecified osteoarthritis, unspecified site; F41.9 Anxiety disorder, unspecified; F31.9 Bipolar disorder, unspecified; F12.90 Cannabis use, unspecified, uncomplicated; Z88.6 Allergy status to analgesic agent; Z88.0 Allergy status to penicillin; Z91.013 Allergy to seafood; Z88.5 Allergy status to narcotic agent; Z88.8 Allergy status to other drugs, medicaments and biological substances; Z88.2 Allergy status to sulfonamides; Z88.1 Allergy status to other antibiotic agents; Z79.899 Other long term (current) drug therapy; W01.198A Fall on same level from slipping, tripping and stumbling with subsequent striking against other object, initial encounter; Y92.000 Kitchen of unspecified non-institutional (private) residence as the place of occurrence of the external cause
CPT/HCPCS: 36415; 80053; 85025; 74177; 99284; 96374; 96375 ×3; J1200; J2405; J1170; J1885; Q9967

== ENCOUNTER 2022-10-09 01:46 | Emergency (ER) | payer MEDICARE, OTHER ==
[2022-10-09 01:49] VITALS: BP 128/85; PULSE 99; RESP 18; TEMP 98
[2022-10-09] MEDS ORDERED: diphenhydrAMINE 50 MG/ML 1 ML VIAL IM STA (01:59)
[2022-10-09] MEDS ORDERED: KETOROLAC 15 MG/ML 1 ML VIAL IM STA (01:59)
--- NOTE | 2022-10-09 02:01 | ED ---
General Adult HPI - General Chief complaint: Recheck/Abnormal Lab/Rx Stated complaint: Pain Time Seen by Provider: 10/09/22 01:50 Source: patient, RN notes reviewed, old records reviewed Mode of arrival: ambulatory Limitations: no limitations - History of Present Illness Initial comments: Patient is a 36-year-old female with past medical history remarkable for chronic leg pain, with a nerve stimulator, seizure disorder, asthma, hyperlipidemia presents emergency Department seeking Toradol and Benadryl for chronic leg pain. She denies any new acute symptoms. Has presented previously for similar complaints. Is on opiate medications at home but is asking for Benadryl and Toradol which usually help in addition to this. His no new complaints. All chronic symptoms. No neurosensory deficits. Pain that radiates in her for legs that is chronic for her. Has been attempting to follow up with her pain specialist. - Related Data Home Medications Medication Instructions Recorded Confirmed Medroxyprogesterone Acetate 150 mg IM Q84D 11/22/13 10/07/20 [Depo-Provera] rOPINIRole HCL [Requip] 1 mg PO BID@0900,1200 11/22/13 10/07/20 Pentosan Polysulfate Sodium 100 mg PO DAILY 02/10/15 10/07/20 [Elmiron] HYDROcodone/APAP 7.5-325MG [[place] 1 tab PO BID 07/20/16 10/07/20 7.5-325] Paliperidone IM Pt Own [Invega 117 mg IM Q28D 07/20/16 10/07/20 Sustenna] amantadine HCL [Symmetrel] 100 mg PO BID 11/21/16 10/07/20 Albuterol Sulfate [Proair Hfa] 2 puff INHALATION RT-QID PRN 01/13/18 10/07/20 Butalb/Acetaminophen/Caffeine 1 tab PO Q8H PRN 01/13/18 10/07/20 [Fioricet 50-325-40] Fluticasone Propionate [Flovent 1 puff INHALATION RT-BID 01/13/18 10/07/20 Hfa 110 mcg] gemfibroziL [Lopid] 600 mg PO BID 01/13/18 10/07/20 Gabapentin [Neurontin] 300 mg PO TID 03/11/18 10/07/20 Gabapentin [Neurontin] 600 mg PO TID 09/16/19 10/07/20 Omeprazole [PriLOSEC] 40 mg PO DAILY 09/16/19 10/07/20 rOPINIRole HCL [Requip] 2 mg PO HS 09/16/19 10/07/20 traZODone HCL 300 mg PO HS 09/16/19 10/07/20 hydrOXYzine pamoate [hydrOXYzine 25 mg PO BID 04/13/20 10/07/20 PAMOATE] Cyclobenzaprine [Flexeril] 10 mg PO TID PRN 08/16/20 10/07/20 Fentanyl/Bupivcaine Pain Pump 1 dose INTRATHECA CONTINUOUS 08/16/20 10/07/20 Ibuprofen [Motrin] 600 mg PO TID PRN 10/07/20 10/07/20 diphenhydrAMINE [Benadryl] 50 mg PO DAILY PRN 10/07/20 10/07/20 Previous Rx's Medication Instructions Recorded Erythromycin Ophth Oint [Romycin 1 applic RIGHT EYE QID #1 bottle 10/03/20 Ophth Oint] Ondansetron Odt [Zofran Odt] 4 mg PO Q8HR PRN #14 tab 10/16/20 Ondansetron Odt [Zofran Odt] 4 mg PO Q8HR PRN #10 tab 06/21/21 predniSONE [Deltasone] 20 mg PO BID #10 tab 09/08/21 Cephalexin [Keflex] 500 mg PO Q8HR 7 Days #21 cap 11/25/21 Fluconazole [Diflucan] 150 mg PO ONCE #1 tab 11/25/21 Allergies Allergy/AdvReac Type Severity Reaction Status Date / Time azithromycin Allergy Rash/Hives Verified 10/09/22 01:49 [From Zithromax Z-Mehrdad] cimetidine [From Tagamet] Allergy Rash/Hives Verified 10/09/22 01:49 codeine Allergy Nausea & Verified 10/09/22 01:49 Vomiting ether [Ether] Allergy Anaphylaxis Verified 10/09/22 01:49 Fish Containing Products Allergy Anaphylaxis Verified 10/09/22 01:49 [Fish] ibuprofen [From Motrin] Allergy Rash/Hives Verified 10/09/22 01:49 morphine Allergy Unknown Verified 10/09/22 01:49 ziprasidone HCl [From Geodon] Allergy Extrapyramidal Verified 10/09/22 01:49 Symptoms ciprofloxacin [From Cipro] AdvReac Rash/Hives Verified 10/09/22 01:49 fluphenazine HCl AdvReac Extrapyramidal Verified 10/09/22 01:49 [From Prolixin] Symptoms haloperidol [From Haldol] AdvReac Extrapyramidal Verified 10/09/22 01:49 Symptoms Sulfa (Sulfonamide AdvReac Nausea & Verified 10/09/22 01:49 Antibiotics) Vomiting Review of Systems ROS Statement: Those systems with pertinent positive or pertinent negative responses have been documented in the HPI. Review of Systems: CONST: Denies fever EYES: Denies blurry vision ENT: Denies nasal congestion C/V: Denies Chest pain RESP: Denies shortness of breath GI: Denies abdominal pain : Denies dysuria SKIN: Denies rash. MSK: Endorses leg pain NEURO: Denies headache ROS Other: All systems not noted in ROS Statement are negative. Past Medical History Past Medical History: Asthma, GERD/Reflux, Hyperlipidemia, Musculoskeletal Disorder, Neurologic Disorder, Osteoarthritis (OA), Seizure Disorder Additional Past Medical History / Comment(s): RSD-DERIC FEET, INTERSTITIAL CYSTITIS, BRONCHITIS, HEMORRHOIDS,MIGRAINES, INSOMNIA. VERTIGO, last seizure 4 years ago, complex regional pain syndrome, RLS. History of Any Multi-Drug Resistant Organisms: MRSA Date of last positivie culture/infection: 04/20/15 MDRO Source:: Left Axilla Past Surgical History: Adenoidectomy, Back Surgery, Cholecystectomy, Orthopedic Surgery, Tonsillectomy Additional Past Surgical History / Comment(s): bilateral foot surgery d/t rsd, numerous pain clinic procedures, nerve stimulator in back to tx RSD placed in Nov 11 2015, pain pump placement, replacement of stimulator 06/2021 Past Anesthesia/Blood Transfusion Reactions: Previous Problems w/ Anesthesia Additional Past Anesthesia/Blood Transfusion Reaction / Comment(s): Pt recieved blood when she was 2 yrs old after tonsillectomy. WHEN BABY HEART STOPPED TWICE- PT STATED SHE WAS ALLERGIC TO ETHER. Past Psychological History: Anxiety, Bipolar, Depression, PTSD Smoking Status: Never smoker Past Alcohol Use History: None Reported Past Drug Use History: Marijuana - Past Family History Father History Unknown: Yes Family Medical History: Diabetes Mellitus Mother Family Medical History: Cancer, CVA/TIA, Diabetes Mellitus, Myocardial Infarction ([place]) Additional Family Medical History / Comment(s): Mother has had 5 CVAs, 3 MIs and UTERINE CANCER General Exam - General Exam Comments Initial Comments: General: Appears in no acute distress. HEAD: Normal with no signs of head trauma. EYES: EOMI. ENT: Hearing grossly intact. RESPIRATORY: No respiratory distress. C/V: Regular rate and rhythm. ABD: Abdomen is nondistended. EXT: No obvious deformity. Neurovascularly intact throughout. Appears to be nerve pain as that she has no focal tenderness on palpation. SKIN: No rashes or lesions observed on exposed skin. NEURO: Alert and oriented. Limitations: no limitations Course Vital Signs 10/09/22 01:47 Temperature 98 F Pulse Rate 99 Respiratory 18 Rate Blood Pressure 128/85 O2 Sat by Pulse 100 Oximetry Medical Decision Making - Medical Decision Making Was pt. sent in by a medical professional or institution (, PA, COVERSTITCH MACHINE OPERATOR, urgent care, hospital, or senior care...) When possible be specific @ -No Did you speak to anyone other than the patient for history (EMS, parent, family, police, friend...)? What history was obtained from this source @ -No Did you review nursing and triage notes (agree or disagree)? Why? @ -I reviewed and agree with nursing and triage notes Were old charts reviewed (outside hosp., previous admission, EMS record, old EKG, old radiological studies, urgent care reports/EKG's, senior care records)? Report findings @ -No old charts were reviewed Differential Diagnosis (chest pain, altered mental status, abdominal pain women, abdominal pain men, vaginal bleeding, weakness, fever, dyspnea, syncope, headache, dizziness, GI bleed, back pain, seizure, CVA, palpatations, mental health, musculoskeletal)? @ -Chronic pain, muscle strain, muscle sprain, neuropathic pain. This list is not all inclusive. EKG interpreted by me (3pts min.). @ -None done X-rays interpreted by me (1pt min.). @ -None done CT interpreted by me (1pt min.). @ -None done U/S interpreted by me (1pt. min.). @ -None done What testing was considered but not performed or refused? (CT, X-rays, U/S, labs)? Why? @ -None What meds were considered but not given or refused? Why? @ -None Did you discuss the management of the patient with other professionals (professionals i.e. , PA, COVERSTITCH MACHINE OPERATOR, lab, RT, psych nurse, geriatric social work professor, spar finisher, teacher, chief procurement officer, leather case finisher)? Give summary @ -No Was smoking cessation discussed for >3mins.? @ -No Was critical care preformed (if so, how long)? @ -No Were there social determinants of health that impacted care today? How? (Homelessness, low income, unemployed, alcoholism, drug addiction, transportation, low edu. Level, literacy, decrease access to med. care, long-term, rehab)? @ -No Was there de-escalation of care discussed even if they declined (Discuss DNR or withdrawal of care, Hospice)? DNR status @ -No What co-morbidities impacted this encounter? (DM, HTN, Smoking, COPD, CAD, Cancer, CVA, ARF, Chemo, Hep., AIDS, mental health diagnosis, sleep apnea, morbid obesity)? @ -None Was patient admitted / discharged? Hospital course, mention meds given and route, prescriptions, significant lab abnormalities, going to OR and other pertinent info. @ -Patient presents seeking IM injections for chronic pain. Requesting Benadryl and Toradol. His no new pain. All chronic pain. States this usually helps her pain. Instructed to follow-up with her pain specialist. No other acute complaints at this time. Vital signs within except limits. She'll be given her IM Benadryl and Toradol and discharged home. She was in agreement this plan. I instructed the patient to follow up with their PCP in the next 1-3 days. I explained that the patient should return to the emergency department if they experience any worsening symptoms. Strict return precautions were discussed with the patient. The patient expressed understanding of these instructions. I answered all questions that the patient had. The patient was discharged home in good condition with their prescriptions and follow up information. Undiagnosed new problem with uncertain prognosis? @ -No Drug Therapy requiring intensive monitoring for toxicity (Heparin, Nitro, Insulin, Cardizem)? @ -No Were any procedures done? @ -No Diagnosis/symptom? @ -Chronic pain Acute, or Chronic, or Acute on Chronic? @ -Chronic Uncomplicated (without systemic symptoms) or Complicated (systemic symptoms)? @ -Uncomplicated Side effects of treatment? @ -No Exacerbation, Progression, or Severe Exacerbation? @ -No Poses a threat to life or bodily function? How? (Chest pain, [place], [place], pneumonia, PE, COPD, DKA, ARF, appy, cholecystitis, CVA, Diverticulitis, Homicidal, Suicidal, threat to staff... and all critical care pts) @ -No Disposition Clinical Impression: Chronic pain Disposition: HOME SELF-CARE Condition: Good Instructions (If sedation given, give patient instructions): Chronic Pain (ED) Is patient prescribed a controlled substance at d/c from ED?: No Referrals: Enzo Rojas MD [Primary Care Provider] - 1-2 days Time of Disposition: 02:00
== END 2022-10-09 02:19 | disposition home or self-care (01) ==
LOC: EC 01:46
DX: G89.29 Other chronic pain (principal); J45.909 Unspecified asthma, uncomplicated; K21.9 Gastro-esophageal reflux disease without esophagitis; F31.9 Bipolar disorder, unspecified; F41.9 Anxiety disorder, unspecified; E78.5 Hyperlipidemia, unspecified; G40.909 Epilepsy, unspecified, not intractable, without status epilepticus; F12.90 Cannabis use, unspecified, uncomplicated; Z79.51 Long term (current) use of inhaled steroids; Z79.899 Other long term (current) drug therapy; Z88.6 Allergy status to analgesic agent; Z88.0 Allergy status to penicillin; Z88.5 Allergy status to narcotic agent; Z91.013 Allergy to seafood; Z88.8 Allergy status to other drugs, medicaments and biological substances; Z88.2 Allergy status to sulfonamides; Z88.1 Allergy status to other antibiotic agents
CPT/HCPCS: 99283; 96372 ×2; J1200; J1885

== ENCOUNTER 2022-11-04 18:23 | Emergency (ER) | payer MEDICARE, OTHER ==
[2022-11-04 18:31] VITALS: BP 119/85; PULSE 78; RESP 20; TEMP 98
[2022-11-04] MEDS ORDERED: HYDROmorphone 0.5 MG/0.5 ML SYRINGE IM STA ×2 (19:34→20:55)
--- NOTE | 2022-11-04 19:57 | XR ---
EXAMINATION TYPE: XR shoulder complete RT DATE OF EXAM: 11/04/2022 7:48 PM INDICATION: Patient age:Female; 36 years old; Reason for study: fall/ right shoulder pain; COMPARISON: None TECHNIQUE: The right shoulder was examined in AP, internally rotated and scapular Y projections. FINDINGS: No evidence of acute osseous pathology, joint dislocation, or soft tissue swelling. The remaining por tions of the visualized chest are unremarkable. IMPRESSION: No acute osseous pathology.
--- NOTE | 2022-11-04 19:58 | XR ---
EXAMINATION TYPE: XR lumbar spine 2 or 3V DATE OF EXAM: 11/04/2022 7:48 PM INDICATION: Patient age:Female; 36 years old; Reason for study: back pain; COMPARISON: None TECHNIQUE: Frontal, lateral and coned in L5-S1 lateral views of the spine. FINDINGS: No evidence of any acute osseous pathology. No evidence of loss of vertebral body height i s seen. There is normal alignment of the lumbar vertebral bodies. Mild degeneration changes with oste ophyte formation, Schmorl's nodes and disc space narrowing. No evidence for significant neural forami nal or spinal canal stenosis. Electronic devices limit evaluation somewhat. Its terminating over the spine. Cholecystectomy clips. IMPRESSION: 1. No acute fracture. 2. Mild multilevel disc degeneration.
--- NOTE | 2022-11-04 20:42 | ED ---
General Adult HPI - General Chief complaint: Fall Stated complaint: Fall Time Seen by Provider: 11/04/22 18:37 Source: patient, RN notes reviewed Mode of arrival: ambulatory Limitations: no limitations - History of Present Illness Initial comments: 36-year-old female history of chronic pain syndrome presents the emergency department with a chief complaint of fall. Complaining of right shoulder pain and she is concerned that her pain pump is possibly at a place. She reports worsening shoulder pain with movement. Denies any chest pain short of breath, dyspnea. She did not hit her head or lose consciousness. She denies anticoagulant use. - Related Data Home Medications Medication Instructions Recorded Confirmed Medroxyprogesterone Acetate 150 mg IM Q84D 11/22/13 10/07/20 [Depo-Provera] rOPINIRole HCL [Requip] 1 mg PO BID@0900,1200 11/22/13 10/07/20 Pentosan Polysulfate Sodium 100 mg PO DAILY 02/10/15 10/07/20 [Elmiron] HYDROcodone/APAP 7.5-325MG [[place] 1 tab PO BID 07/20/16 10/07/20 7.5-325] Paliperidone IM Pt Own [Invega 117 mg IM Q28D 07/20/16 10/07/20 Sustenna] amantadine HCL [Symmetrel] 100 mg PO BID 11/21/16 10/07/20 Albuterol Sulfate [Proair Hfa] 2 puff INHALATION RT-QID PRN 01/13/18 10/07/20 Butalb/Acetaminophen/Caffeine 1 tab PO Q8H PRN 01/13/18 10/07/20 [Fioricet 50-325-40] Fluticasone Propionate [Flovent 1 puff INHALATION RT-BID 01/13/18 10/07/20 Hfa 110 mcg] gemfibroziL [Lopid] 600 mg PO BID 01/13/18 10/07/20 Gabapentin [Neurontin] 300 mg PO TID 03/11/18 10/07/20 Gabapentin [Neurontin] 600 mg PO TID 09/16/19 10/07/20 Omeprazole [PriLOSEC] 40 mg PO DAILY 09/16/19 10/07/20 rOPINIRole HCL [Requip] 2 mg PO HS 09/16/19 10/07/20 traZODone HCL 300 mg PO HS 09/16/19 10/07/20 hydrOXYzine pamoate [hydrOXYzine 25 mg PO BID 04/13/20 10/07/20 PAMOATE] Cyclobenzaprine [Flexeril] 10 mg PO TID PRN 08/16/20 10/07/20 Fentanyl/Bupivcaine Pain Pump 1 dose INTRATHECA CONTINUOUS 08/16/20 10/07/20 Ibuprofen [Motrin] 600 mg PO TID PRN 10/07/20 10/07/20 diphenhydrAMINE [Benadryl] 50 mg PO DAILY PRN 10/07/20 10/07/20 Previous Rx's Medication Instructions Recorded Erythromycin Ophth Oint [Romycin 1 applic RIGHT EYE QID #1 bottle 10/03/20 Ophth Oint] Ondansetron Odt [Zofran Odt] 4 mg PO Q8HR PRN #14 tab 10/16/20 Ondansetron Odt [Zofran Odt] 4 mg PO Q8HR PRN #10 tab 06/21/21 predniSONE [Deltasone] 20 mg PO BID #10 tab 09/08/21 Cephalexin [Keflex] 500 mg PO Q8HR 7 Days #21 cap 11/25/21 Fluconazole [Diflucan] 150 mg PO ONCE #1 tab 11/25/21 Allergies Allergy/AdvReac Type Severity Reaction Status Date / Time azithromycin Allergy Rash/Hives Verified 10/22/22 00:33 [From Zithromax Z-Mehrdad] cimetidine [From Tagamet] Allergy Rash/Hives Verified 10/22/22 00:33 codeine Allergy Nausea & Verified 10/22/22 00:33 Vomiting ether [Ether] Allergy Anaphylaxis Verified 10/22/22 00:33 Fish Containing Products Allergy Anaphylaxis Verified 10/22/22 00:33 [Fish] ibuprofen [From Motrin] Allergy Rash/Hives Verified 10/22/22 00:33 morphine Allergy Unknown Verified 10/22/22 00:33 ziprasidone HCl [From Geodon] Allergy Extrapyramidal Verified 10/22/22 00:33 Symptoms ciprofloxacin [From Cipro] AdvReac Rash/Hives Verified 10/22/22 00:33 fluphenazine HCl AdvReac Extrapyramidal Verified 10/22/22 00:33 [From Prolixin] Symptoms haloperidol [From Haldol] AdvReac Extrapyramidal Verified 10/22/22 00:33 Symptoms Sulfa (Sulfonamide AdvReac Nausea & Verified 10/22/22 00:33 Antibiotics) Vomiting Review of Systems ROS Statement: Those systems with pertinent positive or pertinent negative responses have been documented in the HPI. ROS Other: All systems not noted in ROS Statement are negative. Past Medical History Past Medical History: Asthma, GERD/Reflux, Hyperlipidemia, Musculoskeletal Disorder, Neurologic Disorder, Osteoarthritis (OA), Seizure Disorder Additional Past Medical History / Comment(s): RSD-DERIC FEET, INTERSTITIAL CYSTITIS, BRONCHITIS, HEMORRHOIDS,MIGRAINES, INSOMNIA. VERTIGO, last seizure 4 years ago, complex regional pain syndrome, RLS. History of Any Multi-Drug Resistant Organisms: MRSA Date of last positivie culture/infection: 04/20/15 MDRO Source:: Left Axilla Past Surgical History: Adenoidectomy, Back Surgery, Cholecystectomy, Orthopedic Surgery, Tonsillectomy Additional Past Surgical History / Comment(s): bilateral foot surgery d/t rsd, numerous pain clinic procedures, nerve stimulator in back to tx RSD placed in Nov 11 2015, pain pump placement, replacement of stimulator 06/2021 Past Anesthesia/Blood Transfusion Reactions: Previous Problems w/ Anesthesia Additional Past Anesthesia/Blood Transfusion Reaction / Comment(s): Pt recieved blood when she was 2 yrs old after tonsillectomy. WHEN BABY HEART STOPPED TWICE- PT STATED SHE WAS ALLERGIC TO ETHER. Past Psychological History: Anxiety, Bipolar, Depression, PTSD Smoking Status: Never smoker Past Alcohol Use History: None Reported Past Drug Use History: Marijuana - Past Family History Father History Unknown: Yes Family Medical History: Diabetes Mellitus Mother Family Medical History: Cancer, CVA/TIA, Diabetes Mellitus, Myocardial Infarction ([place]) Additional Family Medical History / Comment(s): Mother has had 5 CVAs, 3 MIs and UTERINE CANCER General Exam - General Exam Comments Initial Comments: General: Alert, in no acute distress Head: atraumatic normocephalic. Eyes PERRL, EOMI intact, mucous membranes moist Respiratory: Lungs clear to auscultation bilaterally Cardiovascular: Heart rate regular rate and rhythm Abdominal: Soft without guarding or rebound Extremities: Normal inspection with full range of motion and normal capillary refill Neuroogic: alert and oriented 3, CN II-XII intact, able to ambulate with steady gait Skin: warm dry and intact with normal color Limitations: no limitations General appearance: alert, in no apparent distress Head exam: Present: atraumatic, normocephalic, normal inspection Eye exam: Present: normal appearance, PERRL, EOMI. Absent: scleral icterus, conjunctival injection, periorbital swelling ENT exam: Present: normal exam, mucous membranes moist Neck exam: Present: normal inspection. Absent: tenderness, meningismus, lymphadenopathy Respiratory exam: Present: normal lung sounds bilaterally. Absent: respiratory distress, wheezes, rales, rhonchi, stridor Cardiovascular Exam: Present: regular rate, normal rhythm, normal heart sounds. Absent: systolic murmur, diastolic murmur, rubs, gallop, clicks GI/Abdominal exam: Present: soft, normal bowel sounds. Absent: distended, tenderness, guarding, rebound, rigid Extremities exam: Present: normal inspection, full ROM, normal capillary refill. Absent: tenderness, pedal edema, joint swelling, calf tenderness Back exam: Present: normal inspection Neurological exam: Present: alert, oriented X3, CN II-XII intact Psychiatric exam: Present: normal affect, normal mood Skin exam: Present: warm, dry, intact, normal color. Absent: rash Course Vital Signs 11/04/22 18:27 Temperature 98 F Pulse Rate 78 Respiratory 20 Rate Blood Pressure 119/85 O2 Sat by Pulse 98 Oximetry Medical Decision Making - Medical Decision Making Was pt. sent in by a medical professional or institution (CALLUM Estes, SCAFFOLDING HELPER, urgent care, hospital, or care home...) When possible be specific @ -[No] Did you speak to anyone other than the patient for history (EMS, parent, family, police, friend...)? What history was obtained from this source @ -[No] Did you review nursing and triage notes (agree or disagree)? Why? @ -[I reviewed and agree with nursing and triage notes] Were old charts reviewed (outside hosp., previous admission, EMS record, old EKG, old radiological studies, urgent care reports/EKG's, care home records)? Report findings @ -[No old charts were reviewed] Differential Diagnosis (chest pain, altered mental status, abdominal pain women, abdominal pain men, vaginal bleeding, weakness, fever, dyspnea, syncope, headache, dizziness, GI bleed, back pain, seizure, CVA, palpatations, mental health, musculoskeletal)? @ -[not applicable] EKG interpreted by me (3pts min.). @ -[As above] X-rays interpreted by me (1pt min.). @ -X-ray of right shoulder and lumbar spine are negative for any evidence of fracture or dislocation. CT interpreted by me (1pt min.). @ -[None done] U/S interpreted by me (1pt. min.). @ -[None done] What testing was considered but not performed or refused? (CT, X-rays, U/S, labs)? Why? @ -[None] What meds were considered but not given or refused? Why? @ -[None] Did you discuss the management of the patient with other professionals (professionals i.e. , PA, SCAFFOLDING HELPER, lab, RT, psych nurse, secondary social studies teacher, patternmaker helper, teacher, medical officer, behavioral health case manager)? Give summary @ -[No] Was smoking cessation discussed for >3mins.? @ -[No] Was critical care preformed (if so, how long)? @ -[No] Were there social determinants of health that impacted care today? How? (Homelessness, low income, unemployed, alcoholism, drug addiction, tra nsportation, low edu. Level, literacy, decrease access to med. care, alf, rehab)? @ -[No] Was there de-escalation of care discussed even if they declined (Discuss DNR or withdrawal of care, Hospice)? DNR status @ -[No] What co-morbidities impacted this encounter? (DM, HTN, Smoking, COPD, CAD, Cancer, CVA, ARF, Chemo, Hep., AIDS, mental health diagnosis, sleep apnea, morbid obesity)? @ -[None] Was patient admitted / discharged? Hospital course, mention meds given and route, prescriptions, significant lab abnormalities, going to OR and other pertinent info. @ -Discharged. This is a 36-year-old female with a past medical history significant for chronic pain syndrome who presents the emergency department with a fall. She is complaining of right shoulder pain and right hip pain. Patient had a thorough history and physical exam performed on the ED. Level is unremarkable. Right shoulder with full range of motion. Distal NVI intact. 2+ radial pulses. Patient had imaging performed which were negative. I discussed the results in detail with the patient verbalized understanding all questions were addressed. She was given Dilaudid with symptomatic management, case discussed with Dr. Stubbs who agrees with Plan of care. Undiagnosed new problem with uncertain prognosis? @ -[No] Drug Therapy requiring intensive monitoring for toxicity (Heparin, Nitro, Insulin, Cardizem)? @ -[No] Were any procedures done? @ -[No] Diagnosis/symptom? @ -Fall -Hx of Chronic Pain Acute, or Chronic, or Acute on Chronic? @ -Acute Uncomplicated (without systemic symptoms) or Complicated (systemic symptoms)? @ -Uncomplicated Side effects of treatment? @ -[No] Exacerbation, Progression, or Severe Exacerbation? @ -[No] Poses a threat to life or bodily function? How? (Chest pain, [place], [place], pneumonia, PE, COPD, DKA, ARF, appy, cholecystitis, CVA, Diverticulitis, Homicidal, Suicidal, threat to staff... and all critical care pts) @ Low likelihood Disposition Clinical Impression: Fall, Right shoulder pain, Hip pain Disposition: HOME SELF-CARE Condition: Stable Additional Instructions: Please return to the nearest emergency department symptoms worsen or persist Is patient prescribed a controlled substance at d/c from ED?: No Referrals: Enzo Rojas MD [Primary Care Provider] - 1-2 days Time of Disposition: 20:42
== END 2022-11-04 21:07 | disposition home or self-care (01) ==
LOC: EC 18:23
DX: M25.511 Pain in right shoulder (principal); M25.551 Pain in right hip; J44.9 Chronic obstructive pulmonary disease, unspecified; K21.9 Gastro-esophageal reflux disease without esophagitis; E78.5 Hyperlipidemia, unspecified; M19.90 Unspecified osteoarthritis, unspecified site; F41.9 Anxiety disorder, unspecified; F31.9 Bipolar disorder, unspecified; F12.90 Cannabis use, unspecified, uncomplicated; Z79.899 Other long term (current) drug therapy; Z88.8 Allergy status to other drugs, medicaments and biological substances; Z88.2 Allergy status to sulfonamides; Z88.5 Allergy status to narcotic agent
CPT/HCPCS: 72100; 73030; 99284; 96372 ×2; J1170

== ENCOUNTER 2022-11-06 22:51 | Emergency (ER) | payer MEDICARE, OTHER ==
[2022-11-06 22:56] VITALS: BP 132/86; PULSE 72; RESP 20; TEMP 96.9
[2022-11-06] MEDS ORDERED: diphenhydrAMINE 50 MG/ML 1 ML VIAL IM STA (23:14)
[2022-11-06] MEDS ORDERED: KETOROLAC 15 MG/ML 1 ML VIAL IM STA (23:14)
--- NOTE | 2022-11-06 23:14 | ED ---
General Adult HPI - General Chief complaint: Back Pain/Injury Stated complaint: Recheck Time Seen by Provider: 11/06/22 23:06 Source: patient, RN notes reviewed, old records reviewed Mode of arrival: ambulatory Limitations: no limitations - History of Present Illness Initial comments: 36-year-old female with back pain at the area of her stimulator. This was placed by neurology. She fell down several steps and has pain right over her incision. Denies any drainage. Denies difficulty ambulating. She states her pain medication at home is not working well which includes multiple medications. No bowel or bladder incontinence. No difficulty ambulating. - Related Data Home Medications Medication Instructions Recorded Confirmed Medroxyprogesterone Acetate 150 mg IM Q84D 11/22/13 10/07/20 [Depo-Provera] rOPINIRole HCL [Requip] 1 mg PO BID@0900,1200 11/22/13 10/07/20 Pentosan Polysulfate Sodium 100 mg PO DAILY 02/10/15 10/07/20 [Elmiron] HYDROcodone/APAP 7.5-325MG [[place] 1 tab PO BID 07/20/16 10/07/20 7.5-325] Paliperidone IM Pt Own [Invega 117 mg IM Q28D 07/20/16 10/07/20 Sustenna] amantadine HCL [Symmetrel] 100 mg PO BID 11/21/16 10/07/20 Albuterol Sulfate [Proair Hfa] 2 puff INHALATION RT-QID PRN 01/13/18 10/07/20 Butalb/Acetaminophen/Caffeine 1 tab PO Q8H PRN 01/13/18 10/07/20 [Fioricet 50-325-40] Fluticasone Propionate [Flovent 1 puff INHALATION RT-BID 01/13/18 10/07/20 Hfa 110 mcg] gemfibroziL [Lopid] 600 mg PO BID 01/13/18 10/07/20 Gabapentin [Neurontin] 300 mg PO TID 03/11/18 10/07/20 Gabapentin [Neurontin] 600 mg PO TID 09/16/19 10/07/20 Omeprazole [PriLOSEC] 40 mg PO DAILY 09/16/19 10/07/20 rOPINIRole HCL [Requip] 2 mg PO HS 09/16/19 10/07/20 traZODone HCL 300 mg PO HS 09/16/19 10/07/20 hydrOXYzine pamoate [hydrOXYzine 25 mg PO BID 04/13/20 10/07/20 PAMOATE] Cyclobenzaprine [Flexeril] 10 mg PO TID PRN 08/16/20 10/07/20 Fentanyl/Bupivcaine Pain Pump 1 dose INTRATHECA CONTINUOUS 08/16/20 10/07/20 Ibuprofen [Motrin] 600 mg PO TID PRN 10/07/20 10/07/20 diphenhydrAMINE [Benadryl] 50 mg PO DAILY PRN 10/07/20 10/07/20 Previous Rx's Medication Instructions Recorded Erythromycin Ophth Oint [Romycin 1 applic RIGHT EYE QID #1 bottle 10/03/20 Ophth Oint] Ondansetron Odt [Zofran Odt] 4 mg PO Q8HR PRN #14 tab 10/16/20 Ondansetron Odt [Zofran Odt] 4 mg PO Q8HR PRN #10 tab 06/21/21 predniSONE [Deltasone] 20 mg PO BID #10 tab 09/08/21 Cephalexin [Keflex] 500 mg PO Q8HR 7 Days #21 cap 11/25/21 Fluconazole [Diflucan] 150 mg PO ONCE #1 tab 11/25/21 Allergies Allergy/AdvReac Type Severity Reaction Status Date / Time azithromycin Allergy Rash/Hives Verified 10/22/22 00:33 [From Zithromax Z-Mehrdad] cimetidine [From Tagamet] Allergy Rash/Hives Verified 10/22/22 00:33 codeine Allergy Nausea & Verified 10/22/22 00:33 Vomiting ether [Ether] Allergy Anaphylaxis Verified 10/22/22 00:33 Fish Containing Products Allergy Anaphylaxis Verified 10/22/22 00:33 [Fish] ibuprofen [From Motrin] Allergy Rash/Hives Verified 10/22/22 00:33 morphine Allergy Unknown Verified 10/22/22 00:33 ziprasidone HCl [From Geodon] Allergy Extrapyramidal Verified 10/22/22 00:33 Symptoms ciprofloxacin [From Cipro] AdvReac Rash/Hives Verified 10/22/22 00:33 fluphenazine HCl AdvReac Extrapyramidal Verified 10/22/22 00:33 [From Prolixin] Symptoms haloperidol [From Haldol] AdvReac Extrapyramidal Verified 10/22/22 00:33 Symptoms Sulfa (Sulfonamide AdvReac Nausea & Verified 10/22/22 00:33 Antibiotics) Vomiting Review of Systems ROS Statement: Those systems with pertinent positive or pertinent negative responses have been documented in the HPI. ROS Other: All systems not noted in ROS Statement are negative. Past Medical History Past Medical History: Asthma, GERD/Reflux, Hyperlipidemia, Musculoskeletal Disorder, Neurologic Disorder, Osteoarthritis (OA), Seizure Disorder Additional Past Medical History / Comment(s): RSD-DERIC FEET, INTERSTITIAL CYSTITIS, BRONCHITIS, HEMORRHOIDS,MIGRAINES, INSOMNIA. VERTIGO, last seizure 4 years ago, complex regional pain syndrome, RLS. History of Any Multi-Drug Resistant Organisms: MRSA Date of last positivie culture/infection: 04/20/15 MDRO Source:: Left Axilla Past Surgical History: Adenoidectomy, Back Surgery, Cholecystectomy, Orthopedic Surgery, Tonsillectomy Additional Past Surgical History / Comment(s): bilateral foot surgery d/t rsd, numerous pain clinic procedures, nerve stimulator in back to tx RSD placed in Nov 11 2015, pain pump placement, replacement of stimulator 06/2021 Past Anesthesia/Blood Transfusion Reactions: Previous Problems w/ Anesthesia Additional Past Anesthesia/Blood Transfusion Reaction / Comment(s): Pt recieved blood when she was 2 yrs old after tonsillectomy. WHEN BABY HEART STOPPED TWICE- PT STATED SHE WAS ALLERGIC TO ETHER. Past Psychological History: Anxiety, Bipolar, Depression, PTSD Smoking Status: Never smoker Past Alcohol Use History: None Reported Past Drug Use History: Marijuana - Past Family History Father History Unknown: Yes Family Medical History: Diabetes Mellitus Mother Family Medical History: Cancer, CVA/TIA, Diabetes Mellitus, Myocardial Infarction ([place]) Additional Family Medical History / Comment(s): Mother has had 5 CVAs, 3 MIs and UTERINE CANCER General Exam Limitations: no limitations General appearance: alert, in no apparent distress Head exam: Present: atraumatic, normocephalic Eye exam: Present: normal appearance, PERRL ENT exam: Present: normal exam Neck exam: Present: normal inspection. Absent: tenderness Respiratory exam: Present: normal lung sounds bilaterally Cardiovascular Exam: Present: regular rate, normal rhythm GI/Abdominal exam: Present: soft. Absent: distended, tenderness Extremities exam: Present: normal inspection Back exam: Present: other (Tenderness over her stimulator without skin changes, no erythema, no fluctuance, no ecchymosis). Absent: vertebral tenderness Course Vital Signs 11/06/22 22:52 Temperature 96.9 F L Pulse Rate 72 Respiratory 20 Rate Blood Pressure 132/86 O2 Sat by Pulse 96 Oximetry Medical Decision Making - Medical Decision Making Was pt. sent in by a medical professional or institution (, [facility], [facility], urgent care, hospital, or alf...) When possible be specific @ -No Did you speak to anyone other than the patient for history (EMS, parent, family, police, friend...)? What history was obtained from this source @ -No Did you review nursing and triage notes (agree or disagree)? Why? @ -I reviewed and agree with nursing and triage notes Were old charts reviewed (outside hosp., previous admission, EMS record, old EKG, old radiological studies, urgent care reports/EKG's, alf records)? Report findings @ -No old charts were reviewed Differential Diagnosis (chest pain, altered mental status, abdominal pain women, abdominal pain men, vaginal bleeding, weakness, fever, dyspnea, syncope, headache, dizziness, GI bleed, back pain, seizure, CVA, palpatations, mental health, musculoskeletal)? @ -Again differential musculoskeletal EKG interpreted by me (3pts min.). @ -As above X-rays interpreted by me (1pt min.). @ -None done CT interpreted by me (1pt min.). @ -None done U/S interpreted by me (1pt. min.). @ -None done What testing was considered but not performed or refused? (CT, X-rays, U/S, labs)? Why? @ -None What meds were considered but not given or refused? Why? @ -None Did you discuss the management of the patient with other professionals (professionals i.e. [facility] Estes, [facility], lab, RT, psych nurse, nephrology social worker, marketing assistant manager, teacher, major gifts officer, family independence case manager)? Give summary @ -No Was smoking cessation discussed for >3mins.? @ -No Was critical care preformed (if so, how long)? @ -No Were there social determinants of health that impacted care today? How? (Homelessness, low income, unemployed, alcoholism, drug addiction, transportation, low edu. Level, literacy, decrease access to med. care, fpc, rehab)? @ -No Was there de-escalation of care discussed even if they declined (Discuss DNR or withdrawal of care, Hospice)? DNR status @ -No What co-morbidities impacted this encounter? (DM, HTN, Smoking, COPD, CAD, Cancer, CVA, ARF, Chemo, Hep., AIDS, mental health diagnosis, sleep apnea, morbid obesity)? @ Chronic pain Was patient admitted / discharged? Hospital course, mention meds given and route, prescriptions, significant lab abnormalities, going to OR and other perti nent info. @ 36 yo female with acute on chronic back pain. No alarming features. No external signs of trauma. Patient requesting Toradol and Benadryl. Pain management provided in the emergency department and patient is stable for discharge with continued outpatient follow-up Undiagnosed new problem with uncertain prognosis? @ -No Drug Therapy requiring intensive monitoring for toxicity (Heparin, Nitro, Insulin, Cardizem)? @ -No Were any procedures done? @ -No Diagnosis/symptom? @ -Low back pain Acute, or Chronic, or Acute on Chronic? @ -Acute on chronic Uncomplicated (without systemic symptoms) or Complicated (systemic symptoms)? @ -default Side effects of treatment? @ -No Exacerbation, Progression, or Severe Exacerbation? @ -No Poses a threat to life or bodily function? How? (Chest pain, [place], [place], pneumonia, PE, COPD, DKA, ARF, appy, cholecystitis, CVA, Diverticulitis, Homicidal, Suicidal, threat to staff... and all critical care pts) @ -No Disposition Clinical Impression: Chronic pain Disposition: HOME SELF-CARE Condition: Fair Instructions (If sedation given, give patient instructions): Acute Low Back Pain (ED) Is patient prescribed a controlled substance at d/c from ED?: No Referrals: Enzo Rojas MD [Primary Care Provider] - 1-2 days Time of Disposition: 23:13
== END 2022-11-06 23:38 | disposition home or self-care (01) ==
LOC: EC 22:51
DX: G89.29 Other chronic pain (principal); M54.50 Low back pain, unspecified; J45.909 Unspecified asthma, uncomplicated; K21.9 Gastro-esophageal reflux disease without esophagitis; E78.5 Hyperlipidemia, unspecified; F12.90 Cannabis use, unspecified, uncomplicated; Z79.51 Long term (current) use of inhaled steroids; Z79.3 Long term (current) use of hormonal contraceptives; Z79.899 Other long term (current) drug therapy; Z88.1 Allergy status to other antibiotic agents; Z88.2 Allergy status to sulfonamides; Z88.5 Allergy status to narcotic agent; Z88.6 Allergy status to analgesic agent; Z88.8 Allergy status to other drugs, medicaments and biological substances; Z91.09 Other allergy status, other than to drugs and biological substances; Z91.013 Allergy to seafood; W10.9XXA Fall (on) (from) unspecified stairs and steps, initial encounter
CPT/HCPCS: 99283; 96372 ×2; J1200; J1885

== ENCOUNTER 2022-11-14 22:13 | Emergency (ER) | payer MEDICARE, OTHER ==
[2022-11-14 22:48] VITALS: RESP 16; TEMP 98.4
[2022-11-14] MEDS ORDERED: KETOROLAC 15 MG/ML 1 ML VIAL IM STA (22:51)
[2022-11-14] MEDS ORDERED: diphenhydrAMINE 50 MG/ML 1 ML VIAL IM STA (22:52)
[2022-11-14] MEDS ORDERED: ONDANSETRON ODT 4 MG TAB PO STA (22:52)
--- NOTE | 2022-11-14 23:05 | ED ---
Extremity Problem HPI - General Chief complaint: Extremity Problem,Nontraumatic Stated complaint: Leg Pain Time Seen by Provider: 11/14/22 22:51 Source: patient Mode of arrival: ambulatory Limitations: no limitations - History of Present Illness Initial comments: Patient is a 37-year-old female who presents the emergency department for leg pain. Patient has chronic pain in her legs. She denies any acute changes or injury. She has a fentanyl pump for pain. She has also been taking OxyContin which is relatively new. States it is making her nauseous. No vomiting or abdominal pain. No fever. She is requesting Toradol and Benadryl which she states works for her pain. She numbness and tingling, leg weakness. Patient states she has an appointment with Dr. Shannon in the morning. - Related Data Home Medications Medication Instructions Recorded Confirmed Medroxyprogesterone Acetate 150 mg IM Q84D 11/22/13 10/07/20 [Depo-Provera] rOPINIRole HCL [Requip] 1 mg PO BID@0900,1200 11/22/13 10/07/20 Pentosan Polysulfate Sodium 100 mg PO DAILY 02/10/15 10/07/20 [Elmiron] HYDROcodone/APAP 7.5-325MG [[place] 1 tab PO BID 07/20/16 10/07/20 7.5-325] Paliperidone IM Pt Own [Invega 117 mg IM Q28D 07/20/16 10/07/20 Sustenna] amantadine HCL [Symmetrel] 100 mg PO BID 11/21/16 10/07/20 Albuterol Sulfate [Proair Hfa] 2 puff INHALATION RT-QID PRN 01/13/18 10/07/20 Butalb/Acetaminophen/Caffeine 1 tab PO Q8H PRN 01/13/18 10/07/20 [Fioricet 50-325-40] Fluticasone Propionate [Flovent 1 puff INHALATION RT-BID 01/13/18 10/07/20 Hfa 110 mcg] gemfibroziL [Lopid] 600 mg PO BID 01/13/18 10/07/20 Gabapentin [Neurontin] 300 mg PO TID 03/11/18 10/07/20 Gabapentin [Neurontin] 600 mg PO TID 09/16/19 10/07/20 Omeprazole [PriLOSEC] 40 mg PO DAILY 09/16/19 10/07/20 rOPINIRole HCL [Requip] 2 mg PO HS 09/16/19 10/07/20 traZODone HCL 300 mg PO HS 09/16/19 10/07/20 hydrOXYzine pamoate [hydrOXYzine 25 mg PO BID 04/13/20 10/07/20 PAMOATE] Cyclobenzaprine [Flexeril] 10 mg PO TID PRN 08/16/20 10/07/20 Fentanyl/Bupivcaine Pain Pump 1 dose INTRATHECA CONTINUOUS 08/16/20 10/07/20 Ibuprofen [Motrin] 600 mg PO TID PRN 10/07/20 10/07/20 diphenhydrAMINE [Benadryl] 50 mg PO DAILY PRN 10/07/20 10/07/20 Previous Rx's Medication Instructions Recorded Erythromycin Ophth Oint [Romycin 1 applic RIGHT EYE QID #1 bottle 10/03/20 Ophth Oint] Ondansetron Odt [Zofran Odt] 4 mg PO Q8HR PRN #14 tab 10/16/20 Ondansetron Odt [Zofran Odt] 4 mg PO Q8HR PRN #10 tab 06/21/21 predniSONE [Deltasone] 20 mg PO BID #10 tab 09/08/21 Cephalexin [Keflex] 500 mg PO Q8HR 7 Days #21 cap 11/25/21 Fluconazole [Diflucan] 150 mg PO ONCE #1 tab 11/25/21 Allergies Allergy/AdvReac Type Severity Reaction Status Date / Time azithromycin Allergy Rash/Hives Verified 11/14/22 23:15 [From Zithromax Z-Mehrdad] cimetidine [From Tagamet] Allergy Rash/Hives Verified 11/14/22 23:15 codeine Allergy Nausea & Verified 11/14/22 23:15 Vomiting ether [Ether] Allergy Anaphylaxis Verified 11/14/22 23:15 Fish Containing Products Allergy Anaphylaxis Verified 11/14/22 23:15 [Fish] ibuprofen [From Motrin] Allergy Rash/Hives Verified 11/14/22 23:15 morphine Allergy Unknown Verified 11/14/22 23:15 ziprasidone HCl [From Geodon] Allergy Extrapyramidal Verified 11/14/22 23:15 Symptoms ciprofloxacin [From Cipro] AdvReac Rash/Hives Verified 11/14/22 23:15 fluphenazine HCl AdvReac Extrapyramidal Verified 11/14/22 23:15 [From Prolixin] Symptoms haloperidol [From Haldol] AdvReac Extrapyramidal Verified 11/14/22 23:15 Symptoms Sulfa (Sulfonamide AdvReac Nausea & Verified 11/14/22 23:15 Antibiotics) Vomiting Review of Systems ROS Statement: Those systems with pertinent positive or pertinent negative responses have been documented in the HPI. ROS Other: All systems not noted in ROS Statement are negative. Past Medical History Past Medical History: Asthma, GERD/Reflux, Hyperlipidemia, Musculoskeletal Disorder, Neurologic Disorder, Osteoarthritis (OA), Seizure Disorder Additional Past Medical History / Comment(s): RSD-DERIC FEET, INTERSTITIAL CYSTITIS, BRONCHITIS, HEMORRHOIDS,MIGRAINES, INSOMNIA. VERTIGO, last seizure 4 years ago, complex regional pain syndrome, RLS. History of Any Multi-Drug Resistant Organisms: MRSA Date of last positivie culture/infection: 04/20/15 MDRO Source:: Left Axilla Past Surgical History: Adenoidectomy, Back Surgery, Cholecystectomy, Orthopedic Surgery, Tonsillectomy Additional Past Surgical History / Comment(s): bilateral foot surgery d/t rsd, numerous pain clinic procedures, nerve stimulator in back to tx RSD placed in Nov 11 2015, pain pump placement, replacement of stimulator 06/2021 Past Anesthesia/Blood Transfusion Reactions: Previous Problems w/ Anesthesia Additional Past Anesthesia/Blood Transfusion Reaction / Comment(s): Pt recieved blood when she was 2 yrs old after tonsillectomy. WHEN BABY HEART STOPPED TWICE- PT STATED SHE WAS ALLERGIC TO ETHER. Past Psychological History: Anxiety, Bipolar, Depression, PTSD Smoking Status: Never smoker Past Alcohol Use History: None Reported Past Drug Use History: Marijuana - Past Family History Father History Unknown: Yes Family Medical History: Diabetes Mellitus Mother Family Medical History: Cancer, CVA/TIA, Diabetes Mellitus, Myocardial Infarction ([place]) Additional Family Medical History / Comment(s): Mother has had 5 CVAs, 3 MIs and UTERINE CANCER General Exam Limitations: no limitations General appearance: alert Respiratory exam: Present: normal lung sounds bilaterally. Absent: respiratory distress, wheezes, rales, rhonchi, stridor Cardiovascular Exam: Present: regular rate, normal rhythm, normal heart sounds. Absent: systolic murmur, diastolic murmur, rubs, gallop, clicks Extremities exam: Present: normal inspection, full ROM, normal capillary refill Neurological exam: Present: alert Skin exam: Present: warm, dry, intact, normal color. Absent: rash Course Vital Signs 11/14/22 11/14/22 22:41 23:36 Temperature 98.4 F Pulse Rate 109 H 100 Respiratory 16 16 Rate Blood Pressure 139/89 141/97 O2 Sat by Pulse 97 97 Oximetry Medical Decision Making - Medical Decision Making Was pt. sent in by a medical professional or institution ([facility], [facility], urgent care, hospital, or long term...) When possible be specific @ -No Did you speak to anyone other than the patient for history (EMS, parent, family, police, friend...)? What history was obtained from this source @ -No Did you review nursing and triage notes (agree or disagree)? Why? @ -I reviewed and agree with nursing and triage notes Were old charts reviewed (outside hosp., previous admission, EMS record, old EKG, old radiological studies, urgent care reports/EKG's, long term records)? Report findings @ -No old charts were reviewed Differential Diagnosis (chest pain, altered mental status, abdominal pain women, abdominal pain men, vaginal bleeding, weakness, fever, dyspnea, syncope, headache, dizziness, GI bleed, back pain, seizure, CVA, palpatations, mental health)? @ -Chronic leg pain, cellulitis, DVT.This list is not meant to be all-inclusive EKG interpreted by me (3pts min.). @ -As above X-rays interpreted by me (1pt min.). @ -None done CT interpreted by me (1pt min.). @ -None done U/S interpreted by me (1pt. min.). @ -None done What testing was considered but not performed or refused? (CT, X-rays, U/S, labs)? Why? @ -None What meds were considered but not given or refused? Why? @ -None Did you discuss the management of the patient with other professionals ( professionals i.e. [facility] Estes, JEWELRY ENAMELER, lab, RT, psych nurse, aids social worker, custodian supervisor, teacher, foreign service officer, caser shoe parts)? Give summary @ -No Was smoking cessation discussed for >3mins.? @ -No Was critical care preformed (if so, how long)? @ -No Were there social determinants of health that impacted care today? How? (Homelessness, low income, unemployed, alcoholism, drug addiction, transportation, low edu. Level, literacy, decrease access to med. care, assisted, rehab)? @ -No Was there de-escalation of care discussed even if they declined (Discuss DNR or withdrawal of care, Hospice)? DNR status @ -No What co-morbidities impacted this encounter? (DM, HTN, Smoking, COPD, CAD, Cancer, CVA, ARF, Chemo, Hep., AIDS, mental health diagnosis, sleep apnea, morbid obesity)? @ -None Was patient admitted / discharged? Hospital course, mention meds given and route, prescriptions, significant lab abnormalities, going to OR and other pertinent info. @ -Discharged Undiagnosed new problem with uncertain prognosis? @ -No Drug Therapy requiring intensive monitoring for toxicity (Heparin, Nitro, Insulin, Cardizem)? @ -No] Were any procedures done? @ -[No] Diagnosis/symptom? @ -chronic pain Acute, or Chronic, or Acute on Chronic? @ acute on chronic Uncomplicated (without systemic symptoms) or Complicated (systemic symptoms)? @ -uncomplicated Side effects of treatment? @ -[No] Exacerbation, Progression, or Severe Exacerbation? @ -[No] Poses a threat to life or bodily function? How? (Chest pain, [place], [place], pneumonia, PE, COPD, DKA, ARF, appy, cholecystitis, CVA, Diverticulitis, Homicidal, Suicidal, threat to staff... and all critical care pts) @ -[No] Dr. King is my attending Disposition Clinical Impression: Chronic pain Disposition: HOME SELF-CARE Condition: Good Additional Instructions: Follow up with neurologist tomorrow as planned. Return to the emergency department if you experience new, concerning, or worsening symptoms Is patient prescribed a controlled substance at d/c from ED?: No Referrals: Enzo Rojas MD [Primary Care Provider] - 1-2 days
[2022-11-14 23:38] VITALS: BP 141/97; PULSE 100
== END 2022-11-14 23:38 | disposition home or self-care (01) ==
LOC: EC 22:13
DX: G89.29 Other chronic pain (principal); M79.604 Pain in right leg; M79.605 Pain in left leg; J45.909 Unspecified asthma, uncomplicated; E78.5 Hyperlipidemia, unspecified; K21.9 Gastro-esophageal reflux disease without esophagitis; F31.9 Bipolar disorder, unspecified; F41.9 Anxiety disorder, unspecified; Z79.899 Other long term (current) drug therapy; Z79.51 Long term (current) use of inhaled steroids; Z91.013 Allergy to seafood; Z88.6 Allergy status to analgesic agent; Z88.5 Allergy status to narcotic agent; Z88.8 Allergy status to other drugs, medicaments and biological substances
CPT/HCPCS: 99283; 96372 ×2; J1200; J1885

== ENCOUNTER 2022-11-22 20:40 | Emergency (ER) | payer MEDICARE, OTHER ==
--- NOTE | 2022-11-22 22:02 | ED ---
Recheck HPI - General Chief Complaint: Recheck/Abnormal Lab/Rx Stated Complaint: Pain pump popped Time Seen by Provider: 11/22/22 21:38 Source: patient, RN notes reviewed, old records reviewed Mode of arrival: ambulatory Limitations: no limitations - History of Present Illness Initial Comments: This is a 37-year-old female to the emergency department for evaluation patient presents today to the emergency department for evaluation regards to chronic pain chronic for pain with problem with her current pain pump. Patient has other complaints no travel show sick contacts no other issues. MD Complaint: abnormal lab -: hour(s) Returns Today for: Called Because of Abnormal Lab/Test, persistent/worsening pain related to initial visit Symptoms Since Prior Visit: worsening pain Context: planned re-check Associated Symptoms: none Treatments Prior to Arrival: other - Related Data Home Medications Medication Instructions Recorded Confirmed Medroxyprogesterone Acetate 150 mg IM Q84D 11/22/13 10/07/20 [Depo-Provera] rOPINIRole HCL [Requip] 1 mg PO BID@0900,1200 11/22/13 10/07/20 Pentosan Polysulfate Sodium 100 mg PO DAILY 02/10/15 10/07/20 [Elmiron] HYDROcodone/APAP 7.5-325MG [[place] 1 tab PO BID 07/20/16 10/07/20 7.5-325] Paliperidone IM Pt Own [Invega 117 mg IM Q28D 07/20/16 10/07/20 Sustenna] amantadine HCL [Symmetrel] 100 mg PO BID 11/21/16 10/07/20 Albuterol Sulfate [Proair Hfa] 2 puff INHALATION RT-QID PRN 01/13/18 10/07/20 Butalb/Acetaminophen/Caffeine 1 tab PO Q8H PRN 01/13/18 10/07/20 [Fioricet 50-325-40] Fluticasone Propionate [Flovent 1 puff INHALATION RT-BID 01/13/18 10/07/20 Hfa 110 mcg] gemfibroziL [Lopid] 600 mg PO BID 01/13/18 10/07/20 Gabapentin [Neurontin] 300 mg PO TID 03/11/18 10/07/20 Gabapentin [Neurontin] 600 mg PO TID 09/16/19 10/07/20 Omeprazole [PriLOSEC] 40 mg PO DAILY 09/16/19 10/07/20 rOPINIRole HCL [Requip] 2 mg PO HS 09/16/19 10/07/20 traZODone HCL 300 mg PO HS 09/16/19 10/07/20 hydrOXYzine pamoate [hydrOXYzine 25 mg PO BID 04/13/20 10/07/20 PAMOATE] Cyclobenzaprine [Flexeril] 10 mg PO TID PRN 08/16/20 10/07/20 Fentanyl/Bupivcaine Pain Pump 1 dose INTRATHECA CONTINUOUS 08/16/20 10/07/20 Ibuprofen [Motrin] 600 mg PO TID PRN 10/07/20 10/07/20 diphenhydrAMINE [Benadryl] 50 mg PO DAILY PRN 10/07/20 10/07/20 Previous Rx's Medication Instructions Recorded Erythromycin Ophth Oint [Romycin 1 applic RIGHT EYE QID #1 bottle 10/03/20 Ophth Oint] Ondansetron Odt [Zofran Odt] 4 mg PO Q8HR PRN #14 tab 10/16/20 Ondansetron Odt [Zofran Odt] 4 mg PO Q8HR PRN #10 tab 06/21/21 predniSONE [Deltasone] 20 mg PO BID #10 tab 09/08/21 Cephalexin [Keflex] 500 mg PO Q8HR 7 Days #21 cap 11/25/21 Fluconazole [Diflucan] 150 mg PO ONCE #1 tab 11/25/21 Allergies Allergy/AdvReac Type Severity Reaction Status Date / Time azithromycin Allergy Rash/Hives Verified 11/22/22 20:59 [From Zithromax Z-Mehrdad] cimetidine [From Tagamet] Allergy Rash/Hives Verified 11/22/22 20:59 codeine Allergy Nausea & Verified 11/22/22 20:59 Vomiting ether [Ether] Allergy Anaphylaxis Verified 11/22/22 20:59 Fish Containing Products Allergy Anaphylaxis Verified 11/22/22 20:59 [Fish] ibuprofen [From Motrin] Allergy Rash/Hives Verified 11/22/22 20:59 morphine Allergy Unknown Verified 11/22/22 20:59 ziprasidone HCl [From Geodon] Allergy Extrapyramidal Verified 11/22/22 20:59 Symptoms ciprofloxacin [From Cipro] AdvReac Rash/Hives Verified 11/22/22 20:59 fluphenazine HCl AdvReac Extrapyramidal Verified 11/22/22 20:59 [From Prolixin] Symptoms haloperidol [From Haldol] AdvReac Extrapyramidal Verified 11/22/22 20:59 Symptoms Sulfa (Sulfonamide AdvReac Nausea & Verified 11/22/22 20:59 Antibiotics) Vomiting Review of Systems ROS Statement: Those systems with pertinent positive or pertinent negative responses have been documented in the HPI. ROS Other: All systems not noted in ROS Statement are negative. Past Medical History Past Medical History: Asthma, GERD/Reflux, Hyperlipidemia, Musculoskeletal Disorder, Neurologic Disorder, Osteoarthritis (OA), Seizure Disorder Additional Past Medical History / Comment(s): RSD-DERIC FEET, INTERSTITIAL CYSTITIS, BRONCHITIS, HEMORRHOIDS,MIGRAINES, INSOMNIA. VERTIGO, last seizure 4 years ago, complex regional pain syndrome, RLS. History of Any Multi-Drug Resistant Organisms: MRSA Date of last positivie culture/infection: 04/20/15 MDRO Source:: Left Axilla Past Surgical History: Adenoidectomy, Back Surgery, Cholecystectomy, Orthopedic Surgery, Tonsillectomy Additional Past Surgical History / Comment(s): bilateral foot surgery d/t rsd, numerous pain clinic procedures, nerve stimulator in back to tx RSD placed in Nov 11 2015, pain pump placement, replacement of stimulator 06/2021 Past Anesthesia/Blood Transfusion Reactions: Previous Problems w/ Anesthesia Additional Past Anesthesia/Blood Transfusion Reaction / Comment(s): Pt recieved blood when she was 2 yrs old after tonsillectomy. WHEN BABY HEART STOPPED TWICE- PT STATED SHE WAS ALLERGIC TO ETHER. Past Psychological History: Anxiety, Bipolar, Depression, PTSD Smoking Status: Never smoker Past Alcohol Use History: None Reported Past Drug Use History: Marijuana - Past Family History Father History Unknown: Yes Family Medical History: Diabetes Mellitus Mother Family Medical History: Cancer, CVA/TIA, Diabetes Mellitus, Myocardial Infarction ([place]) Additional Family Medical History / Comment(s): Mother has had 5 CVAs, 3 MIs and UTERINE CANCER General Exam Limitations: no limitations General appearance: alert, in no apparent distress Head exam: Present: atraumatic, normocephalic, normal inspection Eye exam: Present: normal appearance, PERRL, EOMI. Absent: scleral icterus, conjunctival injection, periorbital swelling ENT exam: Present: normal exam, mucous membranes moist Neck exam: Present: normal inspection. Absent: tenderness, meningismus, lymphadenopathy Respiratory exam: Present: normal lung sounds bilaterally. Absent: respiratory distress, wheezes, rales, rhonchi, stridor Cardiovascular Exam: Present: regular rate, normal rhythm, normal heart sounds. Absent: systolic murmur, diastolic murmur, rubs, gallop, clicks GI/Abdominal exam: Present: soft, normal bowel sounds. Absent: distended, tenderness, guarding, rebound, rigid Extremities exam: Present: normal inspection, full ROM, normal capillary refill. Absent: tenderness, pedal edema, joint swelling, calf tenderness Back exam: Present: normal inspection Neurological exam: Present: alert, oriented X3, CN II-XII intact Psychiatric exam: Present: normal affect, normal mood Skin exam: Present: warm, dry, intact, normal color. Absent: rash Course Vital Signs 11/22/22 11/22/22 20:53 22:50 Temperature 98.3 F 97.9 F Pulse Rate 115 H 103 H Respiratory 26 H 18 Rate Blood Pressure 145/85 141/95 O2 Sat by Pulse 98 98 Oximetry - Reevaluation(s) Reevaluation #1: Medical record is reviewed Reevaluation #2: Patient symptoms are improved Reevaluation #3: Patient informed of results and questions answered Reevaluation #4: 11/22/22 22:47 Was pt. sent in by a medical professional or institution (, PA, PLAST[employer]Y [employer]SEMBLER, urgent care, hospital, or [place] health care facility...) When possible be specific @ -no Did you speak to anyone other than the patient for history (EMS, parent, family, police, friend...)? What history was obtained from this source @ -no Did you review nursing and triage notes (agree or disagree)? Why? @ -agree Are old charts reviewed (outside hosp., previous admission, EMS record, old EKG, old radiological studies, urgent care reports/EKG's, [place] health [facility] facility records)? Report findings @ -yes Differential Diagnosis (chest pain, altered mental status, abdominal pain women, abdominal pain men, vaginal bleeding, weakness, fever, dyspnea, syncope, headache, dizziness, GI bleed, back pain, seizure, CVA, palpatations, mental health, musculoskeletal)? @ -prior EKG interpreted by me (3pts min.). @ -no X-rays interpreted by me (1pt min.). @ -no CT interpreted by me (1pt min.). @ -no U/S interpreted by me (1pt. min.). @ -no What testing was considered but not performed or refused? (CT, X-rays, U/S, labs)? Why? @ -none What meds were considered but not given or refused? Why? @ -none Did you discuss the management of the patient with other professionals (professionals i.e. , PA, P[employer] BATTER[employer]SEMBLER, lab, RT, psych nurse, manager social responsibility, plan checker, teacher, rating officer, lead case manager)? Give summary @ -no Was smoking cessation discussed for >3mins.? @ -no Was critical care preformed (if so, how long)? @ -no Were there social determinants of health that impacted care today? How? (Homelessness, low income, unemployed, alcoholism, drug addiction, transportation, low edu. Level, literacy, decrease access to med. care, penitentiary, re hab)? @ -none Was there de-escalation of care discussed even if they declined (Discuss DNR or withdrawal of care, Hospice)? DNR status @ -no What co-morbidities impacted this encounter? (DM, HTN, Smoking, COPD, CAD, Cancer, CVA, ARF, Chemo, Hep., AIDS, mental health diagnosis, sleep apnea, morbid obesity)? @ -none Was patient admitted / discharged? Hospital course, mention meds given and route, prescriptions, significant lab abnormalities, going to OR and other pertinent info. @ - 37 female to the emergency department for evaluation of acute on chronic pain. Patient is adequate pain control here in the ER. She feels comfortable with discharge home Discharged Undiagnosed new problem with uncertain prognosis? @ -no Drug Therapy requiring intensive monitoring for toxicity (Heparin, Nitro, Insulin, Cardizem)? @ -no Were any procedures done? @ -no Diagnosis/symptom? @ -Chronic pain Acute, or Chronic, or Acute on Chronic? @ -Acute Uncomplicated (without systemic symptoms) or Complicated (systemic symptoms)? @ -Complicated Side effects of treatment? @ -no Exacerbation, Progression, or Severe Exacerbation? @ -exacerbation Poses a threat to life or bodily function? How? (Chest pain, [place], [place], pneumonia, PE, COPD, DKA, ARF, appy, cholecystitis, CVA, Diverticulitis, Homicidal, Suicidal, threat to staff... and all critical care pts) @ -no Medical Decision Making - Medical Decision Making 37 female to the emergency department for evaluation of acute on chronic pain. Patient is adequate pain control here in the ER. She feels comfortable with discharge home Disposition Clinical Impression: Chronic pain in left foot, Chronic pain syndrome Disposition: HOME SELF-CARE Condition: Good Instructions (If sedation given, give patient instructions): Chronic Pain (ED) Is patient prescribed a controlled substance at d/c from ED?: No Referrals: Enzo Rojas MD [Primary Care Provider] - 1-2 days Time of Disposition: 22:25
[2022-11-22] MEDS ORDERED: diphenhydrAMINE 50 MG CAP PO STA (22:09)
[2022-11-22] MEDS ORDERED: PROCHLORPERAZINE 5 MG TAB PO STA (22:09)
[2022-11-22] MEDS ORDERED: HYDROmorphone 1 MG/ML 1 ML SYRINGE IM STA (22:09)
[2022-11-22 22:51] VITALS: BP 141/95; PULSE 103; RESP 18; TEMP 97.9
== END 2022-11-22 22:50 | disposition home or self-care (01) ==
LOC: EC 20:40
DX: G89.29 Other chronic pain (principal); M79.672 Pain in left foot; J45.909 Unspecified asthma, uncomplicated; K21.9 Gastro-esophageal reflux disease without esophagitis; E78.5 Hyperlipidemia, unspecified; M19.90 Unspecified osteoarthritis, unspecified site; F12.90 Cannabis use, unspecified, uncomplicated; Z86.59 Personal history of other mental and behavioral disorders; Z90.49 Acquired absence of other specified parts of digestive tract; Z88.6 Allergy status to analgesic agent; Z91.013 Allergy to seafood; Z88.5 Allergy status to narcotic agent; Z88.2 Allergy status to sulfonamides; Z88.8 Allergy status to other drugs, medicaments and biological substances; Z88.1 Allergy status to other antibiotic agents
CPT/HCPCS: 99283; 96372; S0183; J1170

== ENCOUNTER 2022-12-15 19:50 | Emergency (ER) | payer MEDICARE, OTHER ==
[2022-12-15 20:19] VITALS: BP 138/99; PULSE 106; RESP 20; TEMP 97.7
[2022-12-15] MEDS ORDERED: PALIPERIDONE IM 156 MG/ML SYG IM STA (20:38)
--- NOTE | 2022-12-15 21:12 | ED ---
Recheck HPI - General Chief Complaint: Recheck/Abnormal Lab/Rx Stated Complaint: injection needed Time Seen by Provider: 12/15/22 20:36 Source: patient Mode of arrival: ambulatory Limitations: no limitations - History of Present Illness Initial Comments: 37-year-old female presenting for injection. Patient regularly receives Invega 156 mg through mobile crisis unit monthly. Patient states that she was unable to make her appointment due to a family emergency. She states that without the injection she has racing thoughts and high anxiety. She also admits to a mild headache. No vision or hearing changes, numbness, tingling, weakness, chest pain, difficulty breathing. - Related Data Home Medications Medication Instructions Recorded Confirmed Medroxyprogesterone Acetate 150 mg IM Q84D 11/22/13 10/07/20 [Depo-Provera] rOPINIRole HCL [Requip] 1 mg PO BID@0900,1200 11/22/13 10/07/20 Pentosan Polysulfate Sodium 100 mg PO DAILY 02/10/15 10/07/20 [Elmiron] HYDROcodone/APAP 7.5-325MG [[place] 1 tab PO BID 07/20/16 10/07/20 7.5-325] Paliperidone IM Pt Own [Invega 117 mg IM Q28D 07/20/16 10/07/20 Sustenna] amantadine HCL [Symmetrel] 100 mg PO BID 11/21/16 10/07/20 Albuterol Sulfate [Proair Hfa] 2 puff INHALATION RT-QID PRN 01/13/18 10/07/20 Butalb/Acetaminophen/Caffeine 1 tab PO Q8H PRN 01/13/18 10/07/20 [Fioricet 50-325-40] Fluticasone Propionate [Flovent 1 puff INHALATION RT-BID 01/13/18 10/07/20 Hfa 110 mcg] gemfibroziL [Lopid] 600 mg PO BID 01/13/18 10/07/20 Gabapentin [Neurontin] 300 mg PO TID 03/11/18 10/07/20 Gabapentin [Neurontin] 600 mg PO TID 09/16/19 10/07/20 Omeprazole [PriLOSEC] 40 mg PO DAILY 09/16/19 10/07/20 rOPINIRole HCL [Requip] 2 mg PO HS 09/16/19 10/07/20 traZODone HCL 300 mg PO HS 09/16/19 10/07/20 hydrOXYzine pamoate [hydrOXYzine 25 mg PO BID 04/13/20 10/07/20 PAMOATE] Cyclobenzaprine [Flexeril] 10 mg PO TID PRN 08/16/20 10/07/20 Fentanyl/Bupivcaine Pain Pump 1 dose INTRATHECA CONTINUOUS 08/16/20 10/07/20 Ibuprofen [Motrin] 600 mg PO TID PRN 10/07/20 10/07/20 diphenhydrAMINE [Benadryl] 50 mg PO DAILY PRN 10/07/20 10/07/20 Previous Rx's Medication Instructions Recorded Erythromycin Ophth Oint [Romycin 1 applic RIGHT EYE QID #1 bottle 10/03/20 Ophth Oint] Ondansetron Odt [Zofran Odt] 4 mg PO Q8HR PRN #14 tab 10/16/20 Ondansetron Odt [Zofran Odt] 4 mg PO Q8HR PRN #10 tab 06/21/21 predniSONE [Deltasone] 20 mg PO BID #10 tab 09/08/21 Cephalexin [Keflex] 500 mg PO Q8HR 7 Days #21 cap 11/25/21 Fluconazole [Diflucan] 150 mg PO ONCE #1 tab 11/25/21 Allergies Allergy/AdvReac Type Severity Reaction Status Date / Time azithromycin Allergy Rash/Hives Verified 12/15/22 20:18 [From Zithromax Z-Mehrdad] cimetidine [From Tagamet] Allergy Rash/Hives Verified 12/15/22 20:18 codeine Allergy Nausea & Verified 12/15/22 20:18 Vomiting ether [Ether] Allergy Anaphylaxis Verified 12/15/22 20:18 Fish Containing Products Allergy Anaphylaxis Verified 12/15/22 20:18 [Fish] ibuprofen [From Motrin] Allergy Rash/Hives Verified 12/15/22 20:18 morphine Allergy Unknown Verified 12/15/22 20:18 ziprasidone HCl [From Geodon] Allergy Extrapyramidal Verified 12/15/22 20:18 Symptoms ciprofloxacin [From Cipro] AdvReac Rash/Hives Verified 12/15/22 20:18 fluphenazine HCl AdvReac Extrapyramidal Verified 12/15/22 20:18 [From Prolixin] Symptoms haloperidol [From Haldol] AdvReac Extrapyramidal Verified 12/15/22 20:18 Symptoms Sulfa (Sulfonamide AdvReac Nausea & Verified 12/15/22 20:18 Antibiotics) Vomiting Review of Systems ROS Statement: Those systems with pertinent positive or pertinent negative responses have been documented in the HPI. ROS Other: All systems not noted in ROS Statement are negative. Past Medical History Past Medical History: Asthma, GERD/Reflux, Hyperlipidemia, Musculoskeletal Disorder, Neurologic Disorder, Osteoarthritis (OA), Seizure Disorder Additional Past Medical History / Comment(s): RSD-DERIC FEET, INTERSTITIAL CYSTITIS, BRONCHITIS, HEMORRHOIDS,MIGRAINES, INSOMNIA. VERTIGO, last seizure 4 years ago, complex regional pain syndrome, RLS. History of Any Multi-Drug Resistant Organisms: MRSA Date of last positivie culture/infection: 04/20/15 MDRO Source:: Left Axilla Past Surgical History: Adenoidectomy, Back Surgery, Cholecystectomy, Orthopedic Surgery, Tonsillectomy Additional Past Surgical History / Comment(s): bilateral foot surgery d/t rsd, numerous pain clinic procedures, nerve stimulator in back to tx RSD placed in Nov 11 2015, pain pump placement, replacement of stimulator 06/2021 Past Anesthesia/Blood Transfusion Reactions: Previous Problems w/ Anesthesia Additional Past Anesthesia/Blood Transfusion Reaction / Comment(s): Pt recieved blood when she was 2 yrs old after tonsillectomy. WHEN BABY HEART STOPPED TWICE- PT STATED SHE WAS ALLERGIC TO ETHER. Past Psychological History: Anxiety, Bipolar, Depression, PTSD Smoking Status: Never smoker Past Alcohol Use History: None Reported Past Drug Use History: Marijuana - Past Family History Father History Unknown: Yes Family Medical History: Diabetes Mellitus Mother Family Medical History: Cancer, CVA/TIA, Diabetes Mellitus, Myocardial Infarction ([place]) Additional Family Medical History / Comment(s): Mother has had 5 CVAs, 3 MIs and UTERINE CANCER General Exam Limitations: no limitations General appearance: alert, in no apparent distress Head exam: Present: atraumatic, normocephalic, normal inspection Eye exam: Present: normal appearance, EOMI Neck exam: Present: normal inspection, full ROM Respiratory exam: Present: normal lung sounds bilaterally. Absent: respiratory distress, wheezes, rales, rhonchi, stridor Cardiovascular Exam: Present: regular rate, normal rhythm, normal heart sounds. Absent: systolic murmur, diastolic murmur, rubs, gallop, clicks Neurological exam: Present: alert, oriented X3, CN II-XII intact Expanded Eye Response: (4) open spontaneously Motor Response: (6) obeys commands Verbal Response: (5) oriented [place] Total: 15 Psychiatric exam: Present: normal affect, normal mood Skin exam: Present: warm, dry, intact, normal color. Absent: rash Course Vital Signs 12/15/22 20:15 Temperature 97.7 F Pulse Rate 106 H Respiratory 20 Rate Blood Pressure 138/99 O2 Sat by Pulse 99 Oximetry Medical Decision Making - Medical Decision Making Was pt. sent in by a medical professional or institution (, [employer], FAB[employer]ICATOR [employer], urgent care, hospital, or prison...) When possible be specific @ -No Did you speak to anyone other than the patient for history (EMS, parent, family, police, friend...)? What history was obtained from this source @ -No Did you review nursing and triage notes (agree or disagree)? Why? @ -I reviewed and agree with nursing and triage notes Were old charts reviewed (outside hosp., previous admission, EMS record, old EKG, old radiological studies, urgent care reports/EKG's, prison records)? Report findings @ -No old charts were reviewed Differential Diagnosis (chest pain, altered mental status, abdominal pain women, abdominal pain men, vaginal bleeding, weakness, fever, dyspnea, syncope, headache, dizziness, GI bleed, back pain, seizure, CVA, palpatations, mental health, musculoskeletal)? @ -not applicable EKG interpreted by me (3pts min.). @ -As above X-rays interpreted by me (1pt min.). @ -None done CT interpreted by me (1pt min.). @ -None done U/S interpreted by me (1pt. min.). @ -None done What testing was considered but not performed or refused? (CT, X-rays, U/S, labs)? Why? @ -None What meds were considered but not given or refused? Why? @ -None Did you discuss the management of the patient with other professionals (professionals i.e. [employer] Estes, FAB[employer]ICATOR [employer], lab, RT, psych nurse, social secretary, all terrain vehicle technician, teacher, forest officer, high risk case manager)? Give summary @ -No Was smoking cessation discussed for >3mins.? @ -No Was critical care preformed (if so, how long)? @ -No Were there social determinants of health that impacted care today? How? (Homelessness, low income, unemployed, alcoholism, drug addiction, transpor tation, low edu. Level, literacy, decrease access to med. care, long-term, rehab)? @ -No Was there de-escalation of care discussed even if they declined (Discuss DNR or withdrawal of care, Hospice)? DNR status @ -No What co-morbidities impacted this encounter? (DM, HTN, Smoking, COPD, CAD, Cancer, CVA, ARF, Chemo, Hep., AIDS, mental health diagnosis, sleep apnea, morbid obesity)? @ -None Was patient admitted / discharged? Hospital course, mention meds given and route, prescriptions, significant lab abnormalities, going to OR and other pertinent info. @ -37-year-old female presenting requesting her intake of injection. She receives Invega monthly through mobile crisis unit, however was unable to make her scheduled appointment due to a family emergency. Patient is given Invega 156 mg IM today. She is also given Toradol and Benadryl for headache. She is discharged home in stable condition Follow-up with PCP. Report back to ER with any new or worsening symptoms. Discussed return parameters and answered all questions. Patient conveyed verbal understanding and agreed to the plan. I discussed this case in detail with my attending Dr. King Undiagnosed new problem with uncertain prognosis? @ -No Drug Therapy requiring intensive monitoring for toxicity (Heparin, Nitro, Insulin, Cardizem)? @ -No Were any procedures done? @ -No Diagnosis/symptom? @ -Encounter for injection Acute, or Chronic, or Acute on Chronic? @ -Acute Uncomplicated (without systemic symptoms) or Complicated (systemic symptoms)? @ -uncomplicated Side effects of treatment? @ -No Exacerbation, Progression, or Severe Exacerbation? @ -No Poses a threat to life or bodily function? How? (Chest pain, [place], [place], pneumonia, PE, COPD, DKA, ARF, appy, cholecystitis, CVA, Diverticulitis, Homicidal, Suicidal, threat to staff... and all critical care pts) @ -No Disposition Clinical Impression: Medication administered Disposition: HOME SELF-CARE Condition: Good Instructions (If sedation given, give patient instructions): Paliperidone (By injection) Additional Instructions: Follow-up with your PCP. Report back to ER with any new or worsening symptoms. Is patient prescribed a controlled substance at d/c from ED?: No Referrals: Enzo Rojas MD [Primary Care Provider] - 1-2 days Time of Disposition: 21:12
[2022-12-15] MEDS ORDERED: KETOROLAC 15 MG/ML 1 ML VIAL IM STA (21:23)
[2022-12-15] MEDS ORDERED: diphenhydrAMINE 50 MG/ML 1 ML VIAL IM STA (21:23)
== END 2022-12-15 21:59 | disposition home or self-care (01) ==
LOC: EC 19:50
DX: Z30.42 Encounter for surveillance of injectable contraceptive (principal); E78.5 Hyperlipidemia, unspecified; F31.9 Bipolar disorder, unspecified; F41.9 Anxiety disorder, unspecified; J45.909 Unspecified asthma, uncomplicated; K21.9 Gastro-esophageal reflux disease without esophagitis; Z79.51 Long term (current) use of inhaled steroids; Z79.899 Other long term (current) drug therapy; Z88.6 Allergy status to analgesic agent; Z88.5 Allergy status to narcotic agent; Z91.013 Allergy to seafood; Z88.2 Allergy status to sulfonamides; Z88.8 Allergy status to other drugs, medicaments and biological substances; Z90.49 Acquired absence of other specified parts of digestive tract; Z79.3 Long term (current) use of hormonal contraceptives
CPT/HCPCS: 99283; 96372 ×3; J1200; J2426; J1885

== ENCOUNTER 2023-01-08 23:07 | Emergency (ER) | payer MEDICARE, OTHER ==
[2023-01-08 23:16] VITALS: TEMP 98
[2023-01-08] MEDS ORDERED: HYDROmorphone 1 MG/ML 1 ML SYRINGE IM STA (23:57)
--- NOTE | 2023-01-09 | ED ---
Extremity Problem HPI - General Chief complaint: Extremity Problem,Nontraumatic Stated complaint: Leg pain Time Seen by Provider: 01/08/23 23:22 Source: patient, RN notes reviewed Mode of arrival: ambulatory Limitations: no limitations - History of Present Illness Initial comments: 37-year-old female presents emergency Department chief complaint of leg pain. This is chronic in nature she did see her neurologist today and has a severe pain pump. Patient was given pain meds. Patient states that nothing really. Symptoms. - Related Data Home Medications Medication Instructions Recorded Confirmed Medroxyprogesterone Acetate 150 mg IM Q84D 11/22/13 10/07/20 [Depo-Provera] rOPINIRole HCL [Requip] 1 mg PO BID@0900,1200 11/22/13 10/07/20 Pentosan Polysulfate Sodium 100 mg PO DAILY 02/10/15 10/07/20 [Elmiron] HYDROcodone/APAP 7.5-325MG [[place] 1 tab PO BID 07/20/16 10/07/20 7.5-325] Paliperidone IM Pt Own [Invega 117 mg IM Q28D 07/20/16 10/07/20 Sustenna] amantadine HCL [Symmetrel] 100 mg PO BID 11/21/16 10/07/20 Albuterol Sulfate [Proair Hfa] 2 puff INHALATION RT-QID PRN 01/13/18 10/07/20 Butalb/Acetaminophen/Caffeine 1 tab PO Q8H PRN 01/13/18 10/07/20 [Fioricet 50-325-40] Fluticasone Propionate [Flovent 1 puff INHALATION RT-BID 01/13/18 10/07/20 Hfa 110 mcg] gemfibroziL [Lopid] 600 mg PO BID 01/13/18 10/07/20 Gabapentin [Neurontin] 300 mg PO TID 03/11/18 10/07/20 Gabapentin [Neurontin] 600 mg PO TID 09/16/19 10/07/20 Omeprazole [PriLOSEC] 40 mg PO DAILY 09/16/19 10/07/20 rOPINIRole HCL [Requip] 2 mg PO HS 09/16/19 10/07/20 traZODone HCL 300 mg PO HS 09/16/19 10/07/20 hydrOXYzine pamoate [hydrOXYzine 25 mg PO BID 04/13/20 10/07/20 PAMOATE] Cyclobenzaprine [Flexeril] 10 mg PO TID PRN 08/16/20 10/07/20 Fentanyl/Bupivcaine Pain Pump 1 dose INTRATHECA CONTINUOUS 08/16/20 10/07/20 Ibuprofen [Motrin] 600 mg PO TID PRN 10/07/20 10/07/20 diphenhydrAMINE [Benadryl] 50 mg PO DAILY PRN 10/07/20 10/07/20 Previous Rx's Medication Instructions Recorded Erythromycin Ophth Oint [Romycin 1 applic RIGHT EYE QID #1 bottle 10/03/20 Ophth Oint] Ondansetron Odt [Zofran Odt] 4 mg PO Q8HR PRN #14 tab 10/16/20 Ondansetron Odt [Zofran Odt] 4 mg PO Q8HR PRN #10 tab 06/21/21 predniSONE [Deltasone] 20 mg PO BID #10 tab 09/08/21 Cephalexin [Keflex] 500 mg PO Q8HR 7 Days #21 cap 11/25/21 Fluconazole [Diflucan] 150 mg PO ONCE #1 tab 11/25/21 Allergies Allergy/AdvReac Type Severity Reaction Status Date / Time azithromycin Allergy Rash/Hives Verified 01/08/23 23:11 [From Zithromax Z-Mehrdad] cimetidine [From Tagamet] Allergy Rash/Hives Verified 01/08/23 23:11 codeine Allergy Nausea & Verified 01/08/23 23:11 Vomiting ether [Ether] Allergy Anaphylaxis Verified 01/08/23 23:11 Fish Containing Products Allergy Anaphylaxis Verified 01/08/23 23:11 [Fish] ibuprofen [From Motrin] Allergy Rash/Hives Verified 01/08/23 23:11 morphine Allergy Unknown Verified 01/08/23 23:11 ziprasidone HCl [From Geodon] Allergy Extrapyramidal Verified 01/08/23 23:11 Symptoms ciprofloxacin [From Cipro] AdvReac Rash/Hives Verified 01/08/23 23:11 fluphenazine HCl AdvReac Extrapyramidal Verified 01/08/23 23:11 [From Prolixin] Symptoms haloperidol [From Haldol] AdvReac Extrapyramidal Verified 01/08/23 23:11 Symptoms Sulfa (Sulfonamide AdvReac Nausea & Verified 01/08/23 23:11 Antibiotics) Vomiting Review of Systems ROS Statement: Those systems with pertinent positive or pertinent negative responses have been documented in the HPI. ROS Other: All systems not noted in ROS Statement are negative. Past Medical History Past Medical History: Asthma, GERD/Reflux, Hyperlipidemia, Musculoskeletal Disorder, Neurologic Disorder, Osteoarthritis (OA), Seizure Disorder Additional Past Medical History / Comment(s): RSD-DERIC FEET, INTERSTITIAL CYSTITIS, BRONCHITIS, HEMORRHOIDS,MIGRAINES, INSOMNIA. VERTIGO, last seizure 4 years ago, complex regional pain syndrome, RLS. History of Any Multi-Drug Resistant Organisms: MRSA Date of last positivie culture/infection: 04/20/15 MDRO Source:: Left Axilla Past Surgical History: Adenoidectomy, Back Surgery, Cholecystectomy, Orthopedic Surgery, Tonsillectomy Additional Past Surgical History / Comment(s): bilateral foot surgery d/t rsd, numerous pain clinic procedures, nerve stimulator in back to tx RSD placed in Nov 11 2015, pain pump placement, replacement of stimulator 06/2021 Past Anesthesia/Blood Transfusion Reactions: Previous Problems w/ Anesthesia Additional Past Anesthesia/Blood Transfusion Reaction / Comment(s): Pt recieved blood when she was 2 yrs old after tonsillectomy. WHEN BABY HEART STOPPED TWICE- PT STATED SHE WAS ALLERGIC TO ETHER. Past Psychological History: Anxiety, Bipolar, Depression, PTSD Smoking Status: Never smoker Past Alcohol Use History: None Reported Past Drug Use History: Marijuana - Past Family History Father History Unknown: Yes Family Medical History: Diabetes Mellitus Mother Family Medical History: Cancer, CVA/TIA, Diabetes Mellitus, Myocardial Infarction ([place]) Additional Family Medical History / Comment(s): Mother has had 5 CVAs, 3 MIs and UTERINE CANCER General Exam Limitations: no limitations General appearance: alert, in no apparent distress Head exam: Present: atraumatic, normocephalic, normal inspection Respiratory exam: Present: normal lung sounds bilaterally. Absent: respiratory distress, wheezes, rales, rhonchi, stridor Cardiovascular Exam: Present: regular rate, normal rhythm, normal heart sounds. Absent: systolic murmur, diastolic murmur, rubs, gallop, clicks GI/Abdominal exam: Present: soft, normal bowel sounds. Absent: distended, tenderness, guarding, rebound, rigid Extremities exam: Present: normal inspection, full ROM, tenderness, normal capillary refill Course Vital Signs 01/08/23 23:08 Temperature 98.0 F Pulse Rate 95 Respiratory 26 H Rate Blood Pressure 130/87 O2 Sat by Pulse 98 Oximetry Medical Decision Making - Medical Decision Making Was pt. sent in by a medical professional or institution (CALLUM Estes, RUNNING SPECIALIST, urgent care, hospital, or shelter...) When possible be specific @ -No Did you speak to anyone other than the patient for history (EMS, parent, family, police, friend...)? What history was obtained from this source @ -No Did you review nursing and triage notes (agree or disagree)? Why? @ -I reviewed and agree with nursing and triage notes Were old charts reviewed (outside hosp., previous admission, EMS record, old EKG, old radiological studies, urgent care reports/EKG's, shelter records)? Report findings @ -Review prior charts, laboratory studies Differential Diagnosis (chest pain, altered mental status, abdominal pain women, abdominal pain men, vaginal bleeding, weakness, fever, dyspnea, syncope, headache, dizziness, GI bleed, back pain, seizure, CVA, palpatations, mental health, musculoskeletal)? @ -Leg pain, chronic pain, back pain EKG interpreted by me (3pts min.). @ -None X-rays interpreted by me (1pt min.). @ -None done CT interpreted by me (1pt min.). @ -None done U/S interpreted by me (1pt. min.). @ -None done What testing was considered but not performed or refused? (CT, X-rays, U/S, labs)? Why? @ -None What meds were considered but not given or refused? Why? @ -None Did you discuss the management of the patient with other professionals (professionals i.e. CALLUM Estes, RUNNING SPECIALIST, lab, RT, psych nurse, social media marketing specialist, computer systems designer, teacher, network security officer, case briefer)? Give summary @ -No Was smoking cessation discussed for >3mins.? @ -No Was critical care preformed (if so, how long)? @ -No Were there social determinants of health that impacted care today? How? (Homelessness, low income, unemployed, alcoholism, drug addiction, transportation, low edu. Level, literacy, decrease access to med. care, halfway, rehab)? @ -No Was there de-escalation of care discussed even if they declined (Discuss DNR or withdrawal of care, Hospice)? DNR status @ -No What co-morbidities impacted this encounter? (DM, HTN, Smoking, COPD, CAD, Cancer, CVA, ARF, Chemo, Hep., AIDS, mental health diagnosis, sleep apnea, morbid obesity)? @ -Chronic pain Was patient admitted / discharged? Hospital course, mention meds given and route, prescriptions, significant lab abnormalities, going to OR and other pertinent info. @ -[Discharge patient is discharged after analgesics. Patient neurologically intact patient is discharged to follow-up with her neurologist. Undiagnosed new problem with uncertain prognosis? @ -No Drug Therapy requiring intensive monitoring for toxicity (Heparin, Nitro, Insulin, Cardizem)? @ -No Were any procedures done? @ -No Diagnosis/symptom? @ -Leg pain, Acute, or Chronic, or Acute on Chronic? @ -Acute on chronic Uncomplicated (without systemic symptoms) or Complicated (systemic symptoms)? @ -Uncomplicated] Side effects of treatment? @ [N] Exacerbation, Progression, or Severe Exacerbation? @ [N] Poses a threat to life or bodily function? How? (Chest pain, [place], [place], pneumonia, PE, COPD, DKA, ARF, appy, cholecystitis, CVA, Diverticulitis, Homicidal, Suicidal, threat to staff... and all critical care pts) @ [N] Disposition Clinical Impression: Chronic leg pain Disposition: HOME SELF-CARE Condition: Stable Additional Instructions: Please return to the Emergency Department if symptoms worsen or any other concerns. Is patient prescribed a controlled substance at d/c from ED?: No Referrals: Enzo Rojas MD [Primary Care Provider] - 1-2 days Time of Disposition: 00:00
[2023-01-09 00:37] VITALS: BP 138/90; PULSE 100; RESP 19
== END 2023-01-09 00:26 | disposition home or self-care (01) ==
LOC: EC 23:07
DX: G89.29 Other chronic pain (principal); M79.606 Pain in leg, unspecified; J45.909 Unspecified asthma, uncomplicated; K21.9 Gastro-esophageal reflux disease without esophagitis; M19.90 Unspecified osteoarthritis, unspecified site; F41.9 Anxiety disorder, unspecified; F31.9 Bipolar disorder, unspecified; Z79.51 Long term (current) use of inhaled steroids; Z79.899 Other long term (current) drug therapy; Z88.5 Allergy status to narcotic agent; Z88.6 Allergy status to analgesic agent; Z91.013 Allergy to seafood; Z88.8 Allergy status to other drugs, medicaments and biological substances
CPT/HCPCS: 99284; 96372; J1170

== ENCOUNTER 2023-01-21 03:06 | Emergency (ER) | payer MEDICARE, OTHER ==
[2023-01-21] MEDS ORDERED: diphenhydrAMINE 50 MG/ML 1 ML VIAL IM STA (03:16)
[2023-01-21] MEDS ORDERED: ONDANSETRON ODT 4 MG TAB PO STA (03:16)
[2023-01-21] MEDS ORDERED: KETOROLAC 15 MG/ML 1 ML VIAL IM STA (03:16)
--- NOTE | 2023-01-21 03:18 | ED ---
Extremity Problem HPI - General Chief complaint: Extremity Problem,Nontraumatic Stated complaint: Leg pain Time Seen by Provider: 01/21/23 03:15 Source: patient Mode of arrival: ambulatory Limitations: no limitations - History of Present Illness Initial comments: 37-year-old female well known to our ER with history of complex regional pain syndrome presenting with chief complaint of pain to the bilateral legs. She states this pain feels consistent with her chronic pain. No injury or trauma. No deformity or discoloration. Patient states that she is nauseous due to the pain. Patient states that she has a pain pump which is not working at this time, states that she intends on getting it replaced next year. - Related Data Home Medications Medication Instructions Recorded Confirmed Medroxyprogesterone Acetate 150 mg IM Q84D 11/22/13 10/07/20 [Depo-Provera] rOPINIRole HCL [Requip] 1 mg PO BID@0900,1200 11/22/13 10/07/20 Pentosan Polysulfate Sodium 100 mg PO DAILY 02/10/15 10/07/20 [Elmiron] HYDROcodone/APAP 7.5-325MG [[place] 1 tab PO BID 07/20/16 10/07/20 7.5-325] Paliperidone IM Pt Own [Invega 117 mg IM Q28D 07/20/16 10/07/20 Sustenna] amantadine HCL [Symmetrel] 100 mg PO BID 11/21/16 10/07/20 Albuterol Sulfate [Proair Hfa] 2 puff INHALATION RT-QID PRN 01/13/18 10/07/20 Butalb/Acetaminophen/Caffeine 1 tab PO Q8H PRN 01/13/18 10/07/20 [Fioricet 50-325-40] Fluticasone Propionate [Flovent 1 puff INHALATION RT-BID 01/13/18 10/07/20 Hfa 110 mcg] gemfibroziL [Lopid] 600 mg PO BID 01/13/18 10/07/20 Gabapentin [Neurontin] 300 mg PO TID 03/11/18 10/07/20 Gabapentin [Neurontin] 600 mg PO TID 09/16/19 10/07/20 Omeprazole [PriLOSEC] 40 mg PO DAILY 09/16/19 10/07/20 rOPINIRole HCL [Requip] 2 mg PO HS 09/16/19 10/07/20 traZODone HCL 300 mg PO HS 09/16/19 10/07/20 hydrOXYzine pamoate [hydrOXYzine 25 mg PO BID 04/13/20 10/07/20 PAMOATE] Cyclobenzaprine [Flexeril] 10 mg PO TID PRN 08/16/20 10/07/20 Fentanyl/Bupivcaine Pain Pump 1 dose INTRATHECA CONTINUOUS 08/16/20 10/07/20 Ibuprofen [Motrin] 600 mg PO TID PRN 10/07/20 10/07/20 diphenhydrAMINE [Benadryl] 50 mg PO DAILY PRN 10/07/20 10/07/20 Previous Rx's Medication Instructions Recorded Erythromycin Ophth Oint [Romycin 1 applic RIGHT EYE QID #1 bottle 10/03/20 Ophth Oint] Ondansetron Odt [Zofran Odt] 4 mg PO Q8HR PRN #14 tab 10/16/20 Ondansetron Odt [Zofran Odt] 4 mg PO Q8HR PRN #10 tab 06/21/21 predniSONE [Deltasone] 20 mg PO BID #10 tab 09/08/21 Cephalexin [Keflex] 500 mg PO Q8HR 7 Days #21 cap 11/25/21 Fluconazole [Diflucan] 150 mg PO ONCE #1 tab 11/25/21 Allergies Allergy/AdvReac Type Severity Reaction Status Date / Time azithromycin Allergy Rash/Hives Verified 01/21/23 03:11 [From Zithromax Z-Mehrdad] cimetidine [From Tagamet] Allergy Rash/Hives Verified 01/21/23 03:11 codeine Allergy Nausea & Verified 01/21/23 03:11 Vomiting ether [Ether] Allergy Anaphylaxis Verified 01/21/23 03:11 Fish Containing Products Allergy Anaphylaxis Verified 01/21/23 03:11 [Fish] ibuprofen [From Motrin] Allergy Rash/Hives Verified 01/21/23 03:11 morphine Allergy Unknown Verified 01/21/23 03:11 ziprasidone HCl [From Geodon] Allergy Extrapyramidal Verified 01/21/23 03:11 Symptoms ciprofloxacin [From Cipro] AdvReac Rash/Hives Verified 01/21/23 03:11 fluphenazine HCl AdvReac Extrapyramidal Verified 01/21/23 03:11 [From Prolixin] Symptoms haloperidol [From Haldol] AdvReac Extrapyramidal Verified 01/21/23 03:11 Symptoms Sulfa (Sulfonamide AdvReac Nausea & Verified 01/21/23 03:11 Antibiotics) Vomiting Review of Systems ROS Statement: Those systems with pertinent positive or pertinent negative responses have been documented in the HPI. ROS Other: All systems not noted in ROS Statement are negative. Past Medical History Past Medical History: Asthma, GERD/Reflux, Hyperlipidemia, Musculoskeletal Disorder, Neurologic Disorder, Osteoarthritis (OA), Seizure Disorder Additional Past Medical History / Comment(s): RSD-DERIC FEET, INTERSTITIAL CYSTITIS, BRONCHITIS, HEMORRHOIDS,MIGRAINES, INSOMNIA. VERTIGO, last seizure 4 years ago, complex regional pain syndrome, RLS. History of Any Multi-Drug Resistant Organisms: MRSA Date of last positivie culture/infection: 04/20/15 MDRO Source:: Left Axilla Past Surgical History: Adenoidectomy, Back Surgery, Cholecystectomy, Orthopedic Surgery, Tonsillectomy Additional Past Surgical History / Comment(s): bilateral foot surgery d/t rsd, numerous pain clinic procedures, nerve stimulator in back to tx RSD placed in Nov 11 2015, pain pump placement, replacement of stimulator 06/2021 Past Anesthesia/Blood Transfusion Reactions: Previous Problems w/ Anesthesia Additional Past Anesthesia/Blood Transfusion Reaction / Comment(s): Pt recieved blood when she was 2 yrs old after tonsillectomy. WHEN BABY HEART STOPPED TWICE- PT STATED SHE WAS ALLERGIC TO ETHER. Past Psychological History: Anxiety, Bipolar, Depression, PTSD Smoking Status: Never smoker Past Alcohol Use History: None Reported Past Drug Use History: Marijuana - Past Family History Father History Unknown: Yes Family Medical History: Diabetes Mellitus Mother Family Medical History: Cancer, CVA/TIA, Diabetes Mellitus, Myocardial Infarction ([place]) Additional Family Medical History / Comment(s): Mother has had 5 CVAs, 3 MIs and UTERINE CANCER General Exam Limitations: no limitations General appearance: alert, in no apparent distress Head exam: Present: atraumatic, normocephalic, normal inspection Eye exam: Present: normal appearance, EOMI Neck exam: Present: normal inspection, full ROM Respiratory exam: Present: normal lung sounds bilaterally. Absent: respiratory distress, wheezes, rales, rhonchi, stridor Cardiovascular Exam: Present: regular rate, normal rhythm, normal heart sounds. Absent: systolic murmur, diastolic murmur, rubs, gallop, clicks Extremities exam: Present: normal inspection, full ROM, tenderness Neurological exam: Present: alert, oriented X3 Psychiatric exam: Present: normal affect, normal mood Skin exam: Present: warm, dry. Absent: rash Course Vital Signs 01/21/23 03:11 Temperature 98.2 F Pulse Rate 102 H Respiratory 18 Rate Blood Pressure 120/74 O2 Sat by Pulse 98 Oximetry Medical Decision Making - Medical Decision Making Was pt. sent in by a medical professional or institution (, PA, ARMORING MACHINE OPERATOR, urgent care, hospital, or senior care...) When possible be specific @ -[No] Did you speak to anyone other than the patient for history (EMS, parent, family, police, friend...)? What history was obtained from this source @ -[No] Did you review nursing and triage notes (agree or disagree)? Why? @ -[I reviewed and agree with nursing and triage notes] Were old charts reviewed (outside hosp., previous admission, EMS record, old EKG, old radiological studies, urgent care reports/EKG's, senior care records)? Report findings @ -[No old charts were reviewed] Differential Diagnosis (chest pain, altered mental status, abdominal pain women, abdominal pain men, vaginal bleeding, weakness, fever, dyspnea, syncope, headache, dizziness, GI bleed, back pain, seizure, CVA, palpatations, mental health, musculoskeletal)? @ -Differential Musculoskeletal Muscular strain, contusion, ligament sprain, fracture, arthritis, septic arthritis, bursitis, cellulitis, muscle spasm, nerve compression, DVT, arterial occlusion, herpes zoster, electrolyte abnormality, tumor.... This is not meant to be in all inclusive list EKG interpreted by me (3pts min.). @ -[As above] X-rays interpreted by me (1pt min.). @ -[None done] CT interpreted by me (1pt min.). @ -[None done] U/S interpreted by me (1pt. min.). @ -[None done] What testing was considered but not performed or refused? (CT, X-rays, U/S, labs )? Why? @ -[None] What meds were considered but not given or refused? Why? @ -[None] Did you discuss the management of the patient with other professionals (professionals i.e. , PA, ARMORING MACHINE OPERATOR, lab, RT, psych nurse, social sciences instructor, telecommunications field engineer, teacher, targeting acquisition officer, rn case manager)? Give summary @ -[No] Was smoking cessation discussed for >3mins.? @ -[No] Was critical care preformed (if so, how long)? @ -[No] Were there social determinants of health that impacted care today? How? (Homelessness, low income, unemployed, alcoholism, drug addiction, transportation, low edu. Level, literacy, decrease access to med. care, alf, rehab)? @ -[No] Was there de-escalation of care discussed even if they declined (Discuss DNR or withdrawal of care, Hospice)? DNR status @ -[No] What co-morbidities impacted this encounter? (DM, HTN, Smoking, COPD, CAD, Cancer, CVA, ARF, Chemo, Hep., AIDS, mental health diagnosis, sleep apnea, morbid obesity)? @ -[None] Was patient admitted / discharged? Hospital course, mention meds given and route, prescriptions, significant lab abnormalities, going to OR and other pert inent info. @ -37-year-old female presenting with chief complaint of pain to the bilateral legs. Patient has history of complex regional pain syndrome and states that this pain feels consistent with her regular chronic pain flareups. She has tried ibuprofen at home. No injury or trauma. Physical examination is performed. Patient is requesting Toradol, Benadryl, and Zofran. Medications are ordered and patient is instructed to follow-up with her PCP. Follow-up with PCP. Report back to ER with any new or worsening symptoms. Discussed return parameters and answered all questions. Patient conveyed verbal understanding and agreed to the plan. I discussed this case in detail with my attending Dr. Hoang Undiagnosed new problem with uncertain prognosis? @ -[No] Drug Therapy requiring intensive monitoring for toxicity (Heparin, Nitro, Insulin, Cardizem)? @ -[No] Were any procedures done? @ -[No] Diagnosis/symptom? @ -Chronic pain Acute, or Chronic, or Acute on Chronic? @ -Acute on chronic Uncomplicated (without systemic symptoms) or Complicated (systemic symptoms)? @ -Uncomplicated Side effects of treatment? @ -[No] Exacerbation, Progression, or Severe Exacerbation? @ -[No] Poses a threat to life or bodily function? How? (Chest pain, [place], [place], pneumonia, PE, COPD, DKA, ARF, appy, cholecystitis, CVA, Diverticulitis, Homicidal, Suicidal, threat to staff... and all critical care pts) @ -[No] Disposition Clinical Impression: Chronic pain Disposition: HOME SELF-CARE Condition: Good Instructions (If sedation given, give patient instructions): Chronic Pain (ED) Additional Instructions: Follow-up with PCP. Report back to ER with any new or worsening symptoms. Is patient prescribed a controlled substance at d/c from ED?: No Referrals: Enzo Rojas MD [Primary Care Provider] - 1-2 days Time of Disposition: 03:18
[2023-01-21 03:20] VITALS: BP 120/74; PULSE 102; RESP 18; TEMP 98.2
== END 2023-01-21 03:26 | disposition home or self-care (01) ==
LOC: EC 03:06
DX: G89.29 Other chronic pain (principal); J45.909 Unspecified asthma, uncomplicated; K21.9 Gastro-esophageal reflux disease without esophagitis; E78.5 Hyperlipidemia, unspecified; M19.90 Unspecified osteoarthritis, unspecified site; F31.9 Bipolar disorder, unspecified; F41.9 Anxiety disorder, unspecified; F12.90 Cannabis use, unspecified, uncomplicated; Z88.6 Allergy status to analgesic agent; Z88.8 Allergy status to other drugs, medicaments and biological substances; Z88.2 Allergy status to sulfonamides; Z88.0 Allergy status to penicillin; Z91.013 Allergy to seafood; Z88.5 Allergy status to narcotic agent; Z79.51 Long term (current) use of inhaled steroids; Z79.899 Other long term (current) drug therapy
CPT/HCPCS: 99283; 96372 ×2; J1200; J1885

== ENCOUNTER 2023-01-24 23:43 | Emergency (ER) | payer MEDICARE, OTHER ==
[2023-01-25 00:32] VITALS: BP 160/82; PULSE 125; RESP 22; TEMP 99.1
[2023-01-25] MEDS ORDERED: HYDROmorphone 1 MG/ML 1 ML SYRINGE IM STA (00:32)
--- NOTE | 2023-01-25 00:38 | ED ---
General Adult HPI - General Chief complaint: Recheck/Abnormal Lab/Rx Stated complaint: Right Leg pain Time Seen by Provider: 01/25/23 00:20 Source: patient, RN notes reviewed, old records reviewed Mode of arrival: ambulatory Limitations: no limitations - History of Present Illness Initial comments: 37-year-old female with acute on chronic right leg pain. Patient has stimulator and follows with neurology. She denies injury. Denies fever. States her home medications are not working. She states that she will not be able to follow up with her neurologist tomorrow. - Related Data Home Medications Medication Instructions Recorded Confirmed Medroxyprogesterone Acetate 150 mg IM Q84D 11/22/13 10/07/20 [Depo-Provera] rOPINIRole HCL [Requip] 1 mg PO BID@0900,1200 11/22/13 10/07/20 Pentosan Polysulfate Sodium 100 mg PO DAILY 02/10/15 10/07/20 [Elmiron] HYDROcodone/APAP 7.5-325MG [[place] 1 tab PO BID 07/20/16 10/07/20 7.5-325] Paliperidone IM Pt Own [Invega 117 mg IM Q28D 07/20/16 10/07/20 Sustenna] amantadine HCL [Symmetrel] 100 mg PO BID 11/21/16 10/07/20 Albuterol Sulfate [Proair Hfa] 2 puff INHALATION RT-QID PRN 01/13/18 10/07/20 Butalb/Acetaminophen/Caffeine 1 tab PO Q8H PRN 01/13/18 10/07/20 [Fioricet 50-325-40] Fluticasone Propionate [Flovent 1 puff INHALATION RT-BID 01/13/18 10/07/20 Hfa 110 mcg] gemfibroziL [Lopid] 600 mg PO BID 01/13/18 10/07/20 Gabapentin [Neurontin] 300 mg PO TID 03/11/18 10/07/20 Gabapentin [Neurontin] 600 mg PO TID 09/16/19 10/07/20 Omeprazole [PriLOSEC] 40 mg PO DAILY 09/16/19 10/07/20 rOPINIRole HCL [Requip] 2 mg PO HS 09/16/19 10/07/20 traZODone HCL 300 mg PO HS 09/16/19 10/07/20 hydrOXYzine pamoate [hydrOXYzine 25 mg PO BID 04/13/20 10/07/20 PAMOATE] Cyclobenzaprine [Flexeril] 10 mg PO TID PRN 08/16/20 10/07/20 Fentanyl/Bupivcaine Pain Pump 1 dose INTRATHECA CONTINUOUS 08/16/20 10/07/20 Ibuprofen [Motrin] 600 mg PO TID PRN 10/07/20 10/07/20 diphenhydrAMINE [Benadryl] 50 mg PO DAILY PRN 10/07/20 10/07/20 Previous Rx's Medication Instructions Recorded Erythromycin Ophth Oint [Romycin 1 applic RIGHT EYE QID #1 bottle 10/03/20 Ophth Oint] Ondansetron Odt [Zofran Odt] 4 mg PO Q8HR PRN #14 tab 10/16/20 Ondansetron Odt [Zofran Odt] 4 mg PO Q8HR PRN #10 tab 06/21/21 predniSONE [Deltasone] 20 mg PO BID #10 tab 09/08/21 Cephalexin [Keflex] 500 mg PO Q8HR 7 Days #21 cap 11/25/21 Fluconazole [Diflucan] 150 mg PO ONCE #1 tab 11/25/21 Allergies Allergy/AdvReac Type Severity Reaction Status Date / Time azithromycin Allergy Rash/Hives Verified 01/25/23 00:02 [From Zithromax Z-Mehrdad] cimetidine [From Tagamet] Allergy Rash/Hives Verified 01/25/23 00:02 codeine Allergy Nausea & Verified 01/25/23 00:02 Vomiting ether [Ether] Allergy Anaphylaxis Verified 01/25/23 00:02 Fish Containing Products Allergy Anaphylaxis Verified 01/25/23 00:02 [Fish] ibuprofen [From Motrin] Allergy Rash/Hives Verified 01/25/23 00:02 morphine Allergy Unknown Verified 01/25/23 00:02 ziprasidone HCl [From Geodon] Allergy Extrapyramidal Verified 01/25/23 00:02 Symptoms ciprofloxacin [From Cipro] AdvReac Rash/Hives Verified 01/25/23 00:02 fluphenazine HCl AdvReac Extrapyramidal Verified 01/25/23 00:02 [From Prolixin] Symptoms haloperidol [From Haldol] AdvReac Extrapyramidal Verified 01/25/23 00:02 Symptoms Sulfa (Sulfonamide AdvReac Nausea & Verified 01/25/23 00:02 Antibiotics) Vomiting Review of Systems ROS Statement: Those systems with pertinent positive or pertinent negative responses have been documented in the HPI. ROS Other: All systems not noted in ROS Statement are negative. Past Medical History Past Medical History: Asthma, GERD/Reflux, Hyperlipidemia, Musculoskeletal Disorder, Neurologic Disorder, Osteoarthritis (OA), Seizure Disorder Additional Past Medical History / Comment(s): RSD-DERIC FEET, INTERSTITIAL CYSTITIS, BRONCHITIS, HEMORRHOIDS,MIGRAINES, INSOMNIA. VERTIGO, last seizure 4 years ago, complex regional pain syndrome, RLS. History of Any Multi-Drug Resistant Organisms: MRSA Date of last positivie culture/infection: 04/20/15 MDRO Source:: Left Axilla Past Surgical History: Adenoidectomy, Back Surgery, Cholecystectomy, Orthopedic Surgery, Tonsillectomy Additional Past Surgical History / Comment(s): bilateral foot surgery d/t rsd, numerous pain clinic procedures, nerve stimulator in back to tx RSD placed in Nov 11 2015, pain pump placement, replacement of stimulator 06/2021 Past Anesthesia/Blood Transfusion Reactions: Previous Problems w/ Anesthesia Additional Past Anesthesia/Blood Transfusion Reaction / Comment(s): Pt recieved blood when she was 2 yrs old after tonsillectomy. WHEN BABY HEART STOPPED TWICE- PT STATED SHE WAS ALLERGIC TO ETHER. Past Psychological History: Anxiety, Bipolar, Depression, PTSD Smoking Status: Never smoker Past Alcohol Use History: None Reported Past Drug Use History: Marijuana - Past Family History Father History Unknown: Yes Family Medical History: Diabetes Mellitus Mother Family Medical History: Cancer, CVA/TIA, Diabetes Mellitus, Myocardial Infarction ([place]) Additional Family Medical History / Comment(s): Mother has had 5 CVAs, 3 MIs and UTERINE CANCER General Exam Limitations: no limitations General appearance: alert, in no apparent distress Head exam: Present: atraumatic, normocephalic Eye exam: Present: normal appearance, PERRL ENT exam: Present: normal exam Neck exam: Present: normal inspection. Absent: tenderness, meningismus Respiratory exam: Present: normal lung sounds bilaterally. Absent: respiratory distress, wheezes Cardiovascular Exam: Present: regular rate, normal rhythm GI/Abdominal exam: Present: soft. Absent: distended, tenderness Extremities exam: Present: normal inspection, normal capillary refill. Absent: calf tenderness Back exam: Absent: CVA tenderness (R), CVA tenderness (L) Neurological exam: Present: alert, oriented X3 Psychiatric exam: Present: anxious Skin exam: Present: warm, dry, intact Course Vital Signs 01/25/23 00:02 Temperature 99.1 F Pulse Rate 125 H Respiratory 22 Rate Blood Pressure 160/82 O2 Sat by Pulse 97 Oximetry Medical Decision Making - Medical Decision Making Was pt. sent in by a medical professional or institution (, CALLUM, SPORTS COMMENTATOR, urgent care, hospital, or senior care...) When possible be specific @ -No Did you speak to anyone other than the patient for history (EMS, parent, family, police, friend...)? What history was obtained from this source @ -No Did you review nursing and triage notes (agree or disagree)? Why? @ -I reviewed and agree with nursing and triage notes Were old charts reviewed (outside hosp., previous admission, EMS record, old EKG, old radiological studies, urgent care reports/EKG's, senior care records)? Report findings @ -No old charts were reviewed Differential Diagnosis (chest pain, altered mental status, abdominal pain women, abdominal pain men, vaginal bleeding, weakness, fever, dyspnea, syncope, headache, dizziness, GI bleed, back pain, seizure, CVA, palpatations, mental health, musculoskeletal)? @ -[Acute on chronic pain EKG interpreted by me (3pts min.). @ -As above X-rays interpreted by me (1pt min.). @ -None done CT interpreted by me (1pt min.). @ -None done U/S interpreted by me (1pt. min.). @ -None done What testing was considered but not performed or refused? (CT, X-rays, U/S, labs)? Why? @ -None What meds were considered but not given or refused? Why? @ -None Did you discuss the management of the patient with other professionals (professionals i.e. CALLUM Estes, SPORTS COMMENTATOR, lab, RT, psych nurse, long term care social worker, spray operator, teacher, giving officer, wrapper caser)? Give summary @ -No Was smoking cessation discussed for >3mins.? @ -No Was critical care preformed (if so, how long)? @ -No Were there social determinants of health that impacted care today? How? (Homelessness, low income, unemployed, alcoholism, drug addiction, transportation, low edu. Level, literacy, decrease access to med. care, long-term, rehab)? @ -No Was there de-escalation of care discussed even if they declined (Discuss DNR or withdrawal of care, Hospice)? DNR status @ -No What co-morbidities impacted this encounter? (DM, HTN, Smoking, COPD, CAD, Cancer, CVA, ARF, Chemo, Hep., AIDS, mental health diagnosis, sleep apnea, morbid obesity)? @ -[Chronic pain in the right lower extremity Was patient admitted / discharged? Hospital course, mention meds given and route, prescriptions, significant lab abnormalities, going to OR and other pertinent info. @ -[37-year-old female with typical right leg pain, acute on chronic. Patient's treated in the emergency department with opiates. She had taken Toradol and Benadryl prior to arrival. Patient has an appointment with her neurologist tomorrow. She's given return parameters and is stable for discharge. Undiagnosed new problem with uncertain prognosis? @ -No Drug Therapy requiring intensive monitoring for toxicity (Heparin, Nitro, Insulin, Cardizem)? @ -No Were any procedures done? @ -No Diagnosis/symptom? @ -[Chronic pain Acute, or Chronic, or Acute on Chronic? @Chronic Uncomplicated (without systemic symptoms) or Complicated (systemic symptoms)? @ -default Side effects of treatment? @ -No Exacerbation, Progression, or Severe Exacerbation? @ -No Poses a threat to life or bodily function? How? (Chest pain, [place], [place], pneumonia, PE, COPD, DKA, ARF, appy, cholecystitis, CVA, Diverticulitis, Homicidal, Suicidal, threat to staff... and all critical care pts) @ -No Disposition Clinical Impression: Chronic pain Disposition: HOME SELF-CARE Condition: Fair Instructions (If sedation given, give patient instructions): Chronic Pain (ED) Is patient prescribed a controlled substance at d/c from ED?: No Referrals: Enzo Rojas MD [Primary Care Provider] - 1-2 days Casper Shannon MD [Medical Doctor] - 1-2 days Time of Disposition: 00:38
== END 2023-01-25 01:06 | disposition home or self-care (01) ==
LOC: EC 23:43
DX: G89.29 Other chronic pain (principal); M79.604 Pain in right leg; J45.909 Unspecified asthma, uncomplicated; K21.9 Gastro-esophageal reflux disease without esophagitis; E78.5 Hyperlipidemia, unspecified; F41.9 Anxiety disorder, unspecified; F31.9 Bipolar disorder, unspecified; F12.90 Cannabis use, unspecified, uncomplicated; Z79.51 Long term (current) use of inhaled steroids; Z79.899 Other long term (current) drug therapy; Z88.1 Allergy status to other antibiotic agents; Z88.2 Allergy status to sulfonamides; Z88.5 Allergy status to narcotic agent; Z88.6 Allergy status to analgesic agent; Z88.8 Allergy status to other drugs, medicaments and biological substances; Z91.013 Allergy to seafood; Z91.09 Other allergy status, other than to drugs and biological substances; Z90.49 Acquired absence of other specified parts of digestive tract
CPT/HCPCS: 99283; 96372; J1170

== ENCOUNTER 2023-02-07 03:41 | Emergency (ER) | payer MEDICARE, OTHER ==
[2023-02-07 04:11] VITALS: TEMP 97.6
--- NOTE | 2023-02-07 04:39 | ED ---
Abdominal Pain HPI - General Chief Complaint: Abdominal Pain Stated Complaint: Pain Pump Malfunction Time Seen by Provider: 02/07/23 04:29 Source: patient, RN notes reviewed, old records reviewed Mode of arrival: wheelchair Limitations: no limitations - History of Present Illness Initial Comments: This is a 37-year-old female who presents the emergency department today. Patient presents today for evaluation of chest pain abdominal pain. Patient is having chest wall pain with her pain pump is placed. States his been moving causing her increased pain. Patient did try to get under neurologist was unable to taste presents to the emergency department for evaluation MD Complaint: abdominal pain Location: LUQ Radiation: LUQ Migration to: no migration Severity: moderate Severity scale (1-10): 6 Quality: sharp Consistency: constant Improves With: nothing Worsens With: nothing Context: other (Patient has pain palpable over side of pain) Treatments Prior to Arrival: other (0) - Related Data Home Medications Medication Instructions Recorded Confirmed Medroxyprogesterone Acetate 150 mg IM Q84D 11/22/13 10/07/20 [Depo-Provera] rOPINIRole HCL [Requip] 1 mg PO BID@0900,1200 11/22/13 10/07/20 Pentosan Polysulfate Sodium 100 mg PO DAILY 02/10/15 10/07/20 [Elmiron] HYDROcodone/APAP 7.5-325MG [[place] 1 tab PO BID 07/20/16 10/07/20 7.5-325] Paliperidone IM Pt Own [Invega 117 mg IM Q28D 07/20/16 10/07/20 Sustenna] amantadine HCL [Symmetrel] 100 mg PO BID 11/21/16 10/07/20 Albuterol Sulfate [Proair Hfa] 2 puff INHALATION RT-QID PRN 01/13/18 10/07/20 Butalb/Acetaminophen/Caffeine 1 tab PO Q8H PRN 01/13/18 10/07/20 [Fioricet 50-325-40] Fluticasone Propionate [Flovent 1 puff INHALATION RT-BID 01/13/18 10/07/20 Hfa 110 mcg] gemfibroziL [Lopid] 600 mg PO BID 01/13/18 10/07/20 Gabapentin [Neurontin] 300 mg PO TID 03/11/18 10/07/20 Gabapentin [Neurontin] 600 mg PO TID 09/16/19 10/07/20 Omeprazole [PriLOSEC] 40 mg PO DAILY 09/16/19 10/07/20 rOPINIRole HCL [Requip] 2 mg PO HS 09/16/19 10/07/20 traZODone HCL 300 mg PO HS 09/16/19 10/07/20 hydrOXYzine pamoate [hydrOXYzine 25 mg PO BID 04/13/20 10/07/20 PAMOATE] Cyclobenzaprine [Flexeril] 10 mg PO TID PRN 08/16/20 10/07/20 Fentanyl/Bupivcaine Pain Pump 1 dose INTRATHECA CONTINUOUS 08/16/20 10/07/20 Ibuprofen [Motrin] 600 mg PO TID PRN 10/07/20 10/07/20 diphenhydrAMINE [Benadryl] 50 mg PO DAILY PRN 10/07/20 10/07/20 Previous Rx's Medication Instructions Recorded Erythromycin Ophth Oint [Romycin 1 applic RIGHT EYE QID #1 bottle 10/03/20 Ophth Oint] Ondansetron Odt [Zofran Odt] 4 mg PO Q8HR PRN #14 tab 10/16/20 Ondansetron Odt [Zofran Odt] 4 mg PO Q8HR PRN #10 tab 06/21/21 predniSONE [Deltasone] 20 mg PO BID #10 tab 09/08/21 Cephalexin [Keflex] 500 mg PO Q8HR 7 Days #21 cap 11/25/21 Fluconazole [Diflucan] 150 mg PO ONCE #1 tab 11/25/21 Allergies Allergy/AdvReac Type Severity Reaction Status Date / Time azithromycin Allergy Rash/Hives Verified 02/07/23 03:46 [From Zithromax Z-Mehrdad] cimetidine [From Tagamet] Allergy Rash/Hives Verified 02/07/23 03:46 codeine Allergy Nausea & Verified 02/07/23 03:46 Vomiting ether [Ether] Allergy Anaphylaxis Verified 02/07/23 03:46 Fish Containing Products Allergy Anaphylaxis Verified 02/07/23 03:46 [Fish] ibuprofen [From Motrin] Allergy Rash/Hives Verified 02/07/23 03:46 morphine Allergy Unknown Verified 02/07/23 03:46 ziprasidone HCl [From Geodon] Allergy Extrapyramidal Verified 02/07/23 03:46 Symptoms ciprofloxacin [From Cipro] AdvReac Rash/Hives Verified 02/07/23 03:46 fluphenazine HCl AdvReac Extrapyramidal Verified 02/07/23 03:46 [From Prolixin] Symptoms haloperidol [From Haldol] AdvReac Extrapyramidal Verified 02/07/23 03:46 Symptoms Sulfa (Sulfonamide AdvReac Nausea & Verified 02/07/23 03:46 Antibiotics) Vomiting Review of Systems ROS Statement: Those systems with pertinent positive or pertinent negative responses have been documented in the HPI. ROS Other: All systems not noted in ROS Statement are negative. Past Medical History Past Medical History: Asthma, GERD/Reflux, Hyperlipidemia, Musculoskeletal Disorder, Neurologic Disorder, Osteoarthritis (OA), Seizure Disorder Additional Past Medical History / Comment(s): RSD-DERIC FEET, INTERSTITIAL CYSTITIS, BRONCHITIS, HEMORRHOIDS,MIGRAINES, INSOMNIA. VERTIGO, last seizure 4 years ago, complex regional pain syndrome, RLS. History of Any Multi-Drug Resistant Organisms: MRSA Date of last positivie culture/infection: 04/20/15 MDRO Source:: Left Axilla Past Surgical History: Adenoidectomy, Back Surgery, Cholecystectomy, Orthopedic Surgery, Tonsillectomy Additional Past Surgical History / Comment(s): bilateral foot surgery d/t rsd, numerous pain clinic procedures, nerve stimulator in back to tx RSD placed in Nov 11 2015, pain pump placement, replacement of stimulator 06/2021 Past Anesthesia/Blood Transfusion Reactions: Previous Problems w/ Anesthesia Additional Past Anesthesia/Blood Transfusion Reaction / Comment(s): Pt recieved blood when she was 2 yrs old after tonsillectomy. WHEN BABY HEART STOPPED TWICE- PT STATED SHE WAS ALLERGIC TO ETHER. Past Psychological History: Anxiety, Bipolar, Depression, PTSD Smoking Status: Never smoker Past Alcohol Use History: None Reported Past Drug Use History: Marijuana - Past Family History Father History Unknown: Yes Family Medical History: Diabetes Mellitus Mother Family Medical History: Cancer, CVA/TIA, Diabetes Mellitus, Myocardial Infarction ([place]) Additional Family Medical History / Comment(s): Mother has had 5 CVAs, 3 MIs and UTERINE CANCER General Exam Limitations: no limitations General appearance: alert, in no apparent distress Head exam: Present: atraumatic, normocephalic, normal inspection Eye exam: Present: normal appearance, PERRL, EOMI. Absent: scleral icterus, conjunctival injection, periorbital swelling ENT exam: Present: normal exam, mucous membranes moist Neck exam: Present: normal inspection. Absent: tenderness, meningismus, lymphadenopathy Respiratory exam: Present: normal lung sounds bilaterally. Absent: respiratory distress, wheezes, rales, rhonchi, stridor Cardiovascular Exam: Present: regular rate, normal rhythm, normal heart sounds. Absent: systolic murmur, diastolic murmur, rubs, gallop, clicks GI/Abdominal exam: Present: soft, normal bowel sounds. Absent: distended, tenderness, guarding, rebound, rigid Extremities exam: Present: normal inspection, full ROM, normal capillary refill. Absent: tenderness, pedal edema, joint swelling, calf tenderness Back exam: Present: normal inspection Neurological exam: Present: alert, oriented X3, CN II-XII intact Psychiatric exam: Present: normal affect, normal mood Skin exam: Present: warm, dry, intact, normal color. Absent: rash Course Vital Signs 02/07/23 02/07/23 03:42 05:21 Temperature 97.6 F Pulse Rate 117 H 97 Respiratory 20 18 Rate Blood Pressure 131/87 123/99 O2 Sat by Pulse 98 97 Oximetry - Reevaluation(s) Reevaluation #1: 02/07/23 Medical records reviewed Reevaluation #2: 02/07/23 Patient symptoms improved Reevaluation #3: 02/07/23 Patient informed results questions answered Reevaluation #4: Was pt. sent in by a medical professional or institution (, PA, OVERLOCK SEWING MACHINE OPERATOR, urgent care, hospital, or retirement...) When possible be specific @ -no Did you speak to anyone other than the patient for history (EMS, parent, family, police, friend...)? What history was obtained from this source @ -no Did you review nursing and triage notes (agree or disagree)? Why? @ -agree Are old charts reviewed (outside hosp., previous admission, EMS record, old EKG, old radiological studies, urgent care reports/EKG's, retirement records)? Report findings @ -yes Differential Diagnosis (chest pain, altered mental status, abdominal pain women, abdominal pain men, vaginal bleeding, weakness, fever, dyspnea, syncope, headache, dizziness, GI bleed, back pain, seizure, CVA, palpatations, mental health, musculoskeletal)? @ -prior EKG interpreted by me (3pts min.). @ -no X-rays interpreted by me (1pt min.). @ -no CT interpreted by me (1pt min.). @ -no U/S interpreted by me (1pt. min.). @ -no What testing was considered but not performed or refused? (CT, X-rays, U/S, labs)? Why? @ -none What meds were considered but not given or refused? Why? @ -none Did you discuss the management of the patient with other professionals (professionals i.e. , PA, OVERLOCK SEWING MACHINE OPERATOR, lab, RT, psych nurse, social work job titles, intellectual property lawyer, teacher, protection officer, case operator)? Give summary @ -no Was smoking cessation discussed for >3mins.? @ -no Was critical care preformed (if so, how long)? @ -no Were there social determinants of health that impacted care today? How? (Homelessness, low income, unemployed, alcoholism, drug addiction, transportation, low edu. Level, literacy, decrease access to med. care, skilled nursing, rehab)? @ -none Was there de-escalation of care discussed even if they declined (Discuss DNR or withdrawal of care, Hospice)? DNR status @ -no What co-morbidities impacted this encounter? (DM, HTN, Smoking, COPD, CAD, Cancer, CVA, ARF, Chemo, Hep., AIDS, mental health diagnosis, sleep apnea, morbid obesity)? @ -none Was patient admitted / discharged? Hospital course, mention meds given and route, prescriptions, significant lab abnormalities, going to OR and other pertinent info. @ - 37 female today to the ER presenting with acute on Chronic pain. Patient is no acute distress can be discharged home Discharge Undiagnosed new problem with uncertain prognosis? @ -no Drug Therapy requiring intensive monitoring for toxicity (Heparin, Nitro, Insulin, Cardizem)? @ -no Were any procedures done? @ -no Diagnosis/symptom? @ -Chronic pain Acute, or Chronic, or Acute on Chronic? @ -Acute Uncomplicated (without systemic symptoms) or Complicated (systemic symptoms)? @ -Complicated Side effects of treatment? @ -no Exacerbation, Progression, or Severe Exacerbation? @ -exacerbation Poses a threat to life or bodily function? How? (Chest pain, [place], [place], pneumonia, PE, COPD, DKA, ARF, appy, cholecystitis, CVA, Diverticulitis, Homicidal, Suicidal, threat to staff... and all critical care pts) @ -no Medical Decision Making - Medical Decision Making 37 female today to the ER presenting with acute on Chronic pain. Patient is no acute distress can be discharged home Disposition Clinical Impression: Post-op pain, Chronic pain syndrome Disposition: HOME SELF-CARE Condition: Good Instructions (If sedation given, give patient instructions): Chronic Pain (ED) Is patient prescribed a controlled substance at d/c from ED?: No Referrals: Enzo Rojas MD [Primary Care Provider] - 1-2 days Time of Disposition: 04:45
[2023-02-07] MEDS ORDERED: HYDROmorphone 1 MG/ML 1 ML SYRINGE IM STA (04:47)
[2023-02-07 05:25] VITALS: BP 123/99; PULSE 97; RESP 18
[2023-02-07] MEDS ORDERED: KETOROLAC 15 MG/ML 1 ML VIAL IVP STA (05:47)
[2023-02-07] MEDS ORDERED: diphenhydrAMINE 50 MG/ML 1 ML VIAL IVP STA (05:49)
== END 2023-02-07 06:11 | disposition home or self-care (01) ==
LOC: EC 03:41
DX: G89.18 Other acute postprocedural pain (principal); G89.4 Chronic pain syndrome; F12.90 Cannabis use, unspecified, uncomplicated; J45.909 Unspecified asthma, uncomplicated; M19.90 Unspecified osteoarthritis, unspecified site; K21.9 Gastro-esophageal reflux disease without esophagitis; Z86.59 Personal history of other mental and behavioral disorders; Z79.899 Other long term (current) drug therapy; Z79.1 Long term (current) use of non-steroidal anti-inflammatories (NSAID); Z88.1 Allergy status to other antibiotic agents; Z88.5 Allergy status to narcotic agent; Z88.8 Allergy status to other drugs, medicaments and biological substances; Z88.6 Allergy status to analgesic agent; Z91.013 Allergy to seafood; Z79.51 Long term (current) use of inhaled steroids; Z90.49 Acquired absence of other specified parts of digestive tract
CPT/HCPCS: 99284; 96374; 96375; 96372; J1200; J1170; J1885

== ENCOUNTER 2023-03-06 01:47 | Emergency (ER) | payer MEDICARE, OTHER ==
[2023-03-06 02:19] VITALS: BP 135/78; PULSE 95; RESP 18; TEMP 98.7
[2023-03-06] MEDS ORDERED: HYDROmorphone 1 MG/ML 1 ML SYRINGE IM STA (02:21)
[2023-03-06] MEDS ORDERED: KETOROLAC 15 MG/ML 1 ML VIAL IM STA (02:21)
[2023-03-06] MEDS ORDERED: ONDANSETRON 4 MG/2 ML VIAL IM STA (02:21)
--- NOTE | 2023-03-06 02:29 | ED ---
Headache HPI - General Chief Complaint: Headache Stated Complaint: headache/leg pain Time Seen by Provider: 03/06/23 02:14 Source: patient, RN notes reviewed Mode of arrival: ambulatory Limitations: no limitations - History of Present Illness Initial Comments: This is a 37-year-old female who presents to the emergency department for a headache and leg pain. Patient is well-known to this emergency department for the same complaint. States that she just got over an ear infection and had her right ear flushed out at her primary care provider's office today. She has since had a headache that she is unable to get rid of. Her ear pain has resolved. She does have a pain pump and took all of her home medication and also took an Epsom salt bath with no relief. States that she also feels nauseous and took Zofran at home, which was also not effective. Complaint: headache - Related Data Home Medications Medication Instructions Recorded Confirmed Medroxyprogesterone Acetate 150 mg IM Q84D 11/22/13 10/07/20 [Depo-Provera] rOPINIRole HCL [Requip] 1 mg PO BID@0900,1200 11/22/13 10/07/20 Pentosan Polysulfate Sodium 100 mg PO DAILY 02/10/15 10/07/20 [Elmiron] HYDROcodone/APAP 7.5-325MG [[place] 1 tab PO BID 07/20/16 10/07/20 7.5-325] Paliperidone IM Pt Own [Invega 117 mg IM Q28D 07/20/16 10/07/20 Sustenna] amantadine HCL [Symmetrel] 100 mg PO BID 11/21/16 10/07/20 Albuterol Sulfate [Proair Hfa] 2 puff INHALATION RT-QID PRN 01/13/18 10/07/20 Butalb/Acetaminophen/Caffeine 1 tab PO Q8H PRN 01/13/18 10/07/20 [Fioricet 50-325-40] Fluticasone Propionate [Flovent 1 puff INHALATION RT-BID 01/13/18 10/07/20 Hfa 110 mcg] gemfibroziL [Lopid] 600 mg PO BID 01/13/18 10/07/20 Gabapentin [Neurontin] 300 mg PO TID 03/11/18 10/07/20 Gabapentin [Neurontin] 600 mg PO TID 09/16/19 10/07/20 Omeprazole [PriLOSEC] 40 mg PO DAILY 09/16/19 10/07/20 rOPINIRole HCL [Requip] 2 mg PO HS 09/16/19 10/07/20 traZODone HCL 300 mg PO HS 09/16/19 10/07/20 hydrOXYzine pamoate [hydrOXYzine 25 mg PO BID 04/13/20 10/07/20 PAMOATE] Cyclobenzaprine [Flexeril] 10 mg PO TID PRN 08/16/20 10/07/20 Fentanyl/Bupivcaine Pain Pump 1 dose INTRATHECA CONTINUOUS 08/16/20 10/07/20 Ibuprofen [Motrin] 600 mg PO TID PRN 10/07/20 10/07/20 diphenhydrAMINE [Benadryl] 50 mg PO DAILY PRN 10/07/20 10/07/20 Previous Rx's Medication Instructions Recorded Erythromycin Ophth Oint [Romycin 1 applic RIGHT EYE QID #1 bottle 10/03/20 Ophth Oint] Ondansetron Odt [Zofran Odt] 4 mg PO Q8HR PRN #14 tab 10/16/20 Ondansetron Odt [Zofran Odt] 4 mg PO Q8HR PRN #10 tab 06/21/21 predniSONE [Deltasone] 20 mg PO BID #10 tab 09/08/21 Cephalexin [Keflex] 500 mg PO Q8HR 7 Days #21 cap 11/25/21 Fluconazole [Diflucan] 150 mg PO ONCE #1 tab 11/25/21 Allergies Allergy/AdvReac Type Severity Reaction Status Date / Time azithromycin Allergy Rash/Hives Verified 02/07/23 03:46 [From Zithromax Z-Mehrdad] cimetidine [From Tagamet] Allergy Rash/Hives Verified 02/07/23 03:46 codeine Allergy Nausea & Verified 02/07/23 03:46 Vomiting ether [Ether] Allergy Anaphylaxis Verified 02/07/23 03:46 Fish Containing Products Allergy Anaphylaxis Verified 02/07/23 03:46 [Fish] ibuprofen [From Motrin] Allergy Rash/Hives Verified 02/07/23 03:46 morphine Allergy Unknown Verified 02/07/23 03:46 ziprasidone HCl [From Geodon] Allergy Extrapyramidal Verified 02/07/23 03:46 Symptoms ciprofloxacin [From Cipro] AdvReac Rash/Hives Verified 02/07/23 03:46 fluphenazine HCl AdvReac Extrapyramidal Verified 02/07/23 03:46 [From Prolixin] Symptoms haloperidol [From Haldol] AdvReac Extrapyramidal Verified 02/07/23 03:46 Symptoms Sulfa (Sulfonamide AdvReac Nausea & Verified 02/07/23 03:46 Antibiotics) Vomiting Review of Systems ROS Statement: Those systems with pertinent positive or pertinent negative responses have been documented in the HPI. ROS Other: All systems not noted in ROS Statement are negative. Past Medical History Past Medical History: Asthma, GERD/Reflux, Hyperlipidemia, Musculoskeletal Disorder, Neurologic Disorder, Osteoarthritis (OA), Seizure Disorder Additional Past Medical History / Comment(s): RSD-DERIC FEET, INTERSTITIAL CYSTITIS, BRONCHITIS, HEMORRHOIDS,MIGRAINES, INSOMNIA. VERTIGO, last seizure 4 years ago, complex regional pain syndrome, RLS. History of Any Multi-Drug Resistant Organisms: MRSA Date of last positivie culture/infection: 04/20/15 MDRO Source:: Left Axilla Past Surgical History: Adenoidectomy, Back Surgery, Cholecystectomy, Orthopedic Surgery, Tonsillectomy Additional Past Surgical History / Comment(s): bilateral foot surgery d/t rsd, numerous pain clinic procedures, nerve stimulator in back to tx RSD placed in Nov 11 2015, pain pump placement, replacement of stimulator 06/2021 Past Anesthesia/Blood Transfusion Reactions: Previous Problems w/ Anesthesia Additional Past Anesthesia/Blood Transfusion Reaction / Comment(s): Pt recieved blood when she was 2 yrs old after tonsillectomy. WHEN BABY HEART STOPPED TWICE- PT STATED SHE WAS ALLERGIC TO ETHER. Past Psychological History: Anxiety, Bipolar, Depression, PTSD Smoking Status: Never smoker Past Alcohol Use History: None Reported Past Drug Use History: Marijuana - Past Family History Father History Unknown: Yes Family Medical History: Diabetes Mellitus Mother Family Medical History: Cancer, CVA/TIA, Diabetes Mellitus, Myocardial Infarction ([place]) Additional Family Medical History / Comment(s): Mother has had 5 CVAs, 3 MIs and UTERINE CANCER General Exam Limitations: no limitations General appearance: alert, in distress Head exam: Present: atraumatic, normocephalic, normal inspection Eye exam: Present: normal appearance, PERRL, EOMI. Absent: scleral icterus, conjunctival injection, periorbital swelling ENT exam: Present: TM's normal bilaterally, normal external ear exam Respiratory exam: Present: normal lung sounds bilaterally. Absent: respiratory distress, wheezes, rales, rhonchi, stridor Cardiovascular Exam: Present: regular rate, normal rhythm, normal heart sounds. Absent: systolic murmur, diastolic murmur, rubs, gallop, clicks Neurological exam: Present: alert, oriented X3, CN II-XII intact Psychiatric exam: Present: normal affect, normal mood Skin exam: Present: warm, dry, intact, normal color. Absent: rash Course Vital Signs 03/06/23 01:54 Temperature 98.7 F Pulse Rate 95 Respiratory 18 Rate Blood Pressure 135/78 O2 Sat by Pulse 98 Oximetry Medical Decision Making - Medical Decision Making This is a 37-year-old female who presents to the emergency department for a headache. Was pt. sent in by a medical professional or institution? @ -No Did you speak to anyone other than the patient for history? @ -No Did you review nursing and triage notes? @ -Yes, and I agree, it is accurate with regards to the patient's symptoms. Were old charts reviewed? @ -No Differential Diagnosis? @ -Differential Headache: Migraine, tension, cluster, carbon monoxide, central venous thrombosis, pension karma temporal arteritis, acute closure glaucoma, intercranial hemorrhage, mastoiditis, sinusitis, head injury, this is not meant to be an all-inclusive list. EKG interpreted by me (3pts min.)? @ -Not obtained X-rays interpreted by me (1pt min.)? @ -Not obtained CT interpreted by me (1pt min.)? @ -Not obtained U/S interpreted by me (1pt. min.)? @ -Not obtained What testing was considered but not performed? (CT, X-rays, U/S, labs)? Why? @ -None What meds were considered but not given? Why? @ -None Did you discuss the management of the patient with other professionals? @ -No Did you reconcile home meds? @ -No Was smoking cessation discussed for >3mins.? @ -No Was critical care preformed (if so, how long)? @ -No Were there social determinants of health that impacted care today? How? (Homelessness, low income, unemployed, alcoholism, drug addiction, transportation, low edu. Level, literacy, decrease access to med. care, custodial, rehab)? @ -No Was there de-escalation of care discussed even if they declined? (Discuss DNR or withdrawal of care, Hospice)? @ -No What co-morbidities impacted this encounter? (DM, HTN, Smoking, COPD, CAD, Cancer, CVA, Hep., AIDS, mental health diagnosis, sleep apnea, morbid obesity)? @ -Neurological disorder, musculoskeletal disorder Was patient admitted / discharged? @ -Discharged. Examination of her ears reveals no evidence of residual infection. Patient treated with Toradol, Dilaudid, Zofran, and Benadryl, with significant relief in symptoms. At that point she felt stable for discharge home, and she was discharged home in stable condition. Undiagnosed new problem with uncertain prognosis? @ -None Drug Therapy requiring intensive monitoring for toxicity (Heparin, Nitro, Insulin, Cardizem)? @ -None Were any procedures done? @ -None Diagnosis/symptom? @ -Headache Acute, or Chronic, or Acute on Chronic? @ -Acute Uncomplicated (without systemic symptoms) or Complicated (systemic symptoms)? @ -Uncomplicated Side effects of treatment? @ -None Exacerbation, Progression, or Severe Exacerbation] @ -Not applicable Poses a threat to life or bodily function? @ -No Return precautions reviewed in depth, the patient is instructed to return to the emergency department with any new, worsening, or concerning symptoms. Patient verbalized understanding. This case was discussed in detail with the attending ED physician, Dr. Stubbs. Presentation, findings, and treatment plan discussed in detail as well. Disposition Clinical Impression: Headache Disposition: HOME SELF-CARE Instructions (If sedation given, give patient instructions): Acute Headache (ED) Additional Instructions: Return to the emergency department with any new, worsening, or concerning symptoms. Follow up with your primary care provider in 1-2 days. Is patient prescribed a controlled substance at d/c from ED?: No Referrals: Enzo Rojas MD [Primary Care Provider] - 1-2 days
[2023-03-06] MEDS ORDERED: diphenhydrAMINE 50 MG/ML 1 ML VIAL IM STA (02:42)
== END 2023-03-06 03:00 | disposition home or self-care (01) ==
LOC: EC 01:47
DX: R51.9 Headache, unspecified (principal); J45.909 Unspecified asthma, uncomplicated; K21.9 Gastro-esophageal reflux disease without esophagitis; M19.90 Unspecified osteoarthritis, unspecified site; F12.90 Cannabis use, unspecified, uncomplicated; Z79.1 Long term (current) use of non-steroidal anti-inflammatories (NSAID); Z79.899 Other long term (current) drug therapy; Z88.5 Allergy status to narcotic agent; Z88.2 Allergy status to sulfonamides; Z88.6 Allergy status to analgesic agent; Z88.8 Allergy status to other drugs, medicaments and biological substances; Z86.59 Personal history of other mental and behavioral disorders
CPT/HCPCS: 99283; 96372 ×4; J1200; J2405; J1170; J1885

== ENCOUNTER 2023-03-11 20:50 | Emergency (ER) | payer MEDICARE, OTHER ==
[2023-03-11 21:06] VITALS: RESP 18; TEMP 98.1
[2023-03-11] MEDS ORDERED: KETOROLAC 15 MG/ML 1 ML VIAL IM STA (21:17)
[2023-03-11] MEDS ORDERED: ONDANSETRON 4 MG/2 ML VIAL IM STA (21:17)
[2023-03-11] MEDS ORDERED: diphenhydrAMINE 50 MG/ML 1 ML VIAL IM STA (21:17)
--- NOTE | 2023-03-11 21:19 | ED ---
Extremity Problem HPI - General Chief complaint: Extremity Problem,Nontraumatic Stated complaint: leg pain,vomiting Time Seen by Provider: 03/11/23 21:19 Source: patient, RN notes reviewed Mode of arrival: ambulatory - History of Present Illness Initial comments: 37-year-old female well known to our ER presenting with chief complaint of leg and back pain. This pain is chronic in nature with no changes from previous episodes of chronic pain flareup. No new injuries. No loss of bowel or bladder control or saddle paresthesia. No weakness. No discoloration. No numbness or tingling. No fevers or chills. She admits to nausea and vomiting secondary to pain. She states that her pain pump has been malfunctioning and she is scheduled to get a new pump in April or May. - Related Data Home Medications Medication Instructions Recorded Confirmed Medroxyprogesterone Acetate 150 mg IM Q84D 11/22/13 10/07/20 [Depo-Provera] rOPINIRole HCL [Requip] 1 mg PO BID@0900,1200 11/22/13 10/07/20 Pentosan Polysulfate Sodium 100 mg PO DAILY 02/10/15 10/07/20 [Elmiron] HYDROcodone/APAP 7.5-325MG [[place] 1 tab PO BID 07/20/16 10/07/20 7.5-325] Paliperidone IM Pt Own [Invega 117 mg IM Q28D 07/20/16 10/07/20 Sustenna] amantadine HCL [Symmetrel] 100 mg PO BID 11/21/16 10/07/20 Albuterol Sulfate [Proair Hfa] 2 puff INHALATION RT-QID PRN 01/13/18 10/07/20 Butalb/Acetaminophen/Caffeine 1 tab PO Q8H PRN 01/13/18 10/07/20 [Fioricet 50-325-40] Fluticasone Propionate [Flovent 1 puff INHALATION RT-BID 01/13/18 10/07/20 Hfa 110 mcg] gemfibroziL [Lopid] 600 mg PO BID 01/13/18 10/07/20 Gabapentin [Neurontin] 300 mg PO TID 03/11/18 10/07/20 Gabapentin [Neurontin] 600 mg PO TID 09/16/19 10/07/20 Omeprazole [PriLOSEC] 40 mg PO DAILY 09/16/19 10/07/20 rOPINIRole HCL [Requip] 2 mg PO HS 09/16/19 10/07/20 traZODone HCL 300 mg PO HS 09/16/19 10/07/20 hydrOXYzine pamoate [hydrOXYzine 25 mg PO BID 04/13/20 10/07/20 PAMOATE] Cyclobenzaprine [Flexeril] 10 mg PO TID PRN 08/16/20 10/07/20 Fentanyl/Bupivcaine Pain Pump 1 dose INTRATHECA CONTINUOUS 08/16/20 10/07/20 Ibuprofen [Motrin] 600 mg PO TID PRN 10/07/20 10/07/20 diphenhydrAMINE [Benadryl] 50 mg PO DAILY PRN 10/07/20 10/07/20 Previous Rx's Medication Instructions Recorded Erythromycin Ophth Oint [Romycin 1 applic RIGHT EYE QID #1 bottle 10/03/20 Ophth Oint] Ondansetron Odt [Zofran Odt] 4 mg PO Q8HR PRN #14 tab 10/16/20 Ondansetron Odt [Zofran Odt] 4 mg PO Q8HR PRN #10 tab 06/21/21 predniSONE [Deltasone] 20 mg PO BID #10 tab 09/08/21 Cephalexin [Keflex] 500 mg PO Q8HR 7 Days #21 cap 11/25/21 Fluconazole [Diflucan] 150 mg PO ONCE #1 tab 11/25/21 Allergies Allergy/AdvReac Type Severity Reaction Status Date / Time azithromycin Allergy Rash/Hives Verified 03/11/23 20:56 [From Zithromax Z-Mehrdad] cimetidine [From Tagamet] Allergy Rash/Hives Verified 03/11/23 20:56 codeine Allergy Nausea & Verified 03/11/23 20:56 Vomiting ether [Ether] Allergy Anaphylaxis Verified 03/11/23 20:56 Fish Containing Products Allergy Anaphylaxis Verified 03/11/23 20:56 [Fish] ibuprofen [From Motrin] Allergy Rash/Hives Verified 03/11/23 20:56 morphine Allergy Unknown Verified 03/11/23 20:56 ziprasidone HCl [From Geodon] Allergy Extrapyramidal Verified 12/11/23 20:56 Symptoms ciprofloxacin [From Cipro] AdvReac Rash/Hives Verified 03/11/23 20:56 fluphenazine HCl AdvReac Extrapyramidal Verified 03/11/23 20:56 [From Prolixin] Symptoms haloperidol [From Haldol] AdvReac Extrapyramidal Verified 03/11/23 20:56 Symptoms Sulfa (Sulfonamide AdvReac Nausea & Verified 03/11/23 20:56 Antibiotics) Vomiting Review of Systems ROS Statement: Those systems with pertinent positive or pertinent negative responses have been documented in the HPI. ROS Other: All systems not noted in ROS Statement are negative. Past Medical History Past Medical History: Asthma, GERD/Reflux, Hyperlipidemia, Musculoskeletal Disorder, Neurologic Disorder, Osteoarthritis (OA), Seizure Disorder Additional Past Medical History / Comment(s): RSD-DERIC FEET, INTERSTITIAL CYSTITIS, BRONCHITIS, HEMORRHOIDS,MIGRAINES, INSOMNIA. VERTIGO, last seizure 4 years ago, complex regional pain syndrome, RLS. History of Any Multi-Drug Resistant Organisms: MRSA Date of last positivie culture/infection: 04/20/15 MDRO Source:: Left Axilla Past Surgical History: Adenoidectomy, Back Surgery, Cholecystectomy, Orthopedic Surgery, Tonsillectomy Additional Past Surgical History / Comment(s): bilateral foot surgery d/t rsd, numerous pain clinic procedures, nerve stimulator in back to tx RSD placed in Nov 11 2015, pain pump placement, replacement of stimulator 06/2021 Past Anesthesia/Blood Transfusion Reactions: Previous Problems w/ Anesthesia Additional Past Anesthesia/Blood Transfusion Reaction / Comment(s): Pt recieved blood when she was 2 yrs old after tonsillectomy. WHEN BABY HEART STOPPED TWICE- PT STATED SHE WAS ALLERGIC TO ETHER. Past Psychological History: Anxiety, Bipolar, Depression, PTSD Smoking Status: Never smoker Past Alcohol Use History: None Reported Past Drug Use History: Marijuana - Past Family History Father History Unknown: Yes Family Medical History: Diabetes Mellitus Mother Family Medical History: Cancer, CVA/TIA, Diabetes Mellitus, Myocardial Infarction (MD) Additional Family Medical History / Comment(s): Mother has had 5 CVAs, 3 MIs and UTERINE CANCER General Exam - General Exam Comments Initial Comments: Visual Physical Exam Vital signs reviewed General: Well-appearing, nontoxic, no acute distress. Head: Normocephalic, atraumatic Eyes: PERRLA, EOMI ENT: Airway patent Chest: Nonlabored breathing Skin: No visual rash, normal skin tone Neuro: Alert and oriented 3 Musculoskeletal: No gross abnormalities Limitations: no limitations General appearance: alert, in no apparent distress Head exam: Present: atraumatic, normocephalic, normal inspection Eye exam: Present: normal appearance, EOMI Neck exam: Present: normal inspection, full ROM Respiratory exam: Absent: respiratory distress Extremities exam: Present: normal inspection, full ROM Back exam: Present: normal inspection Neurological exam: Present: alert, oriented X3 Psychiatric exam: Present: normal affect, normal mood Skin exam: Present: warm, dry. Absent: rash Course Vital Signs 03/11/23 03/11/23 20:53 22:36 Temperature 98.1 F Pulse Rate 115 H 95 Respiratory 18 18 Rate Blood Pressure 124/75 116/66 O2 Sat by Pulse 99 100 Oximetry Medical Decision Making - Medical Decision Making Was pt. sent in by a medical professional or institution (, PA, INTEGRATED CIRCUIT FABRICATOR, urgent care, hospital, or penitentiary...) When possible be specific @ -No Did you speak to anyone other than the patient for history (EMS, parent, family, police, friend...)? What history was obtained from this source @ -No Did you review nursing and triage notes (agree or disagree)? Why? @ -I reviewed and agree with nursing and triage notes Were old charts reviewed (outside hosp., previous admission, EMS record, old EKG, old radiological studies, urgent care reports/EKG's, penitentiary records)? Report findings @ -No old charts were reviewed Differential Diagnosis (chest pain, altered mental status, abdominal pain women, abdominal pain men, vaginal bleeding, weakness, fever, dyspnea, syncope, headache, dizziness, GI bleed, back pain, seizure, CVA, palpatations, mental health, musculoskeletal)? @ -Differential Musculoskeletal Muscular strain, contusion, ligament sprain, fracture, arthritis, septic arthritis, bursitis, cellulitis, muscle spasm, nerve compression, DVT, arterial occlusion, herpes zoster, electrolyte abnormality, tumor.... This is not meant to be in all inclusive list EKG interpreted by me (3pts min.). @ -As above X-rays interpreted by me (1pt min.). @ -None done CT interpreted by me (1pt min.). @ -None done U/S interpreted by me (1pt. min.). @ -None done What testing was considered but not performed or refused? (CT, X-rays, U/S, labs)? Why? @ -None What meds were considered but not given or refused? Why? @ -None Did you discuss the management of the patient with other professionals (professionals i.e. Dr., PA, INTEGRATED CIRCUIT FABRICATOR, lab, RT, psych nurse, foster care social worker, city bus driver, teacher, bsa/aml compliance officer, disease case manager)? Give summary @ -No Was smoking cessation discussed for >3mins.? @ -No Was critical care preformed (if so, how long)? @ -No Were there social determinants of health that impacted care today? How? (Homelessness, low income, unemployed, alcoholism, drug addiction, transportation, low edu. Level, literacy, decrease access to med. care, long term, rehab)? @ -No Was there de-escalation of care discussed even if they declined (Discuss DNR or withdrawal of care, Hospice)? DNR status @ -No What co-morbidities impacted this encounter? (DM, HTN, Smoking, COPD, CAD, Cancer, CVA, ARF, Chemo, Hep., AIDS, mental health diagnosis, sleep apnea, morbid obesity)? @ -None Was patient admitted / discharged? Hospital course, mention meds given and route, prescriptions, significant lab abnormalities, going to OR and other pertinent info. @ -37-year-old female presenting with chief complaint of lower extremity and back pain. Patient has history of this chronic pain, no new injuries or changes from her previous episodes of pain. No red flag symptoms. History and physical exam were conducted. Patient is treated with Toradol Benadryl and Zofran. Follow-up with PCP. Report back to ER with any new or worsening symptoms. Discussed return parameters and answered all questions. Patient conveyed verbal understanding and agreed to the plan. I discussed this case in detail with my attending Dr. Hernandez Undiagnosed new problem with uncertain prognosis? @ -No Drug Therapy requiring intensive monitoring for toxicity (Heparin, Nitro, Insulin, Cardizem)? @ -No Were any procedures done? @ -No Diagnosis/symptom? @ -Chronic pain Acute, or Chronic, or Acute on Chronic? @ -Acute on chronic Uncomplicated (without systemic symptoms) or Complicated (systemic symptoms)? @ -Uncomplicated Side effects of treatment? @ -No Exacerbation, Progression, or Severe Exacerbation? @ -No Poses a threat to life or bodily function? How? (Chest pain, [place], [place], pneumonia, PE, COPD, DKA, ARF, appy, cholecystitis, CVA, Diverticulitis, Homicidal, Suicidal, threat to staff... and all critical care pts) @ -No Disposition Clinical Impression: Chronic pain Disposition: HOME SELF-CARE Condition: Good Instructions (If sedation given, give patient instructions): Pain Management (ED), Chronic Pain (ED) Additional Instructions: Follow-up with PCP. Report back to ER with any new or worsening symptoms. Is patient prescribed a controlled substance at d/c from ED?: No Referrals: Enzo Rojas MD [Primary Care Provider] - 1-2 days Time of Disposition: 22:05
[2023-03-11 22:44] VITALS: BP 116/66; PULSE 95
== END 2023-03-11 22:53 | disposition home or self-care (01) ==
LOC: EC 20:50
DX: G89.29 Other chronic pain (principal); M54.9 Dorsalgia, unspecified; J45.909 Unspecified asthma, uncomplicated; K21.9 Gastro-esophageal reflux disease without esophagitis; M19.90 Unspecified osteoarthritis, unspecified site; F12.90 Cannabis use, unspecified, uncomplicated; Z86.59 Personal history of other mental and behavioral disorders; Z79.51 Long term (current) use of inhaled steroids; Z79.899 Other long term (current) drug therapy; Z88.5 Allergy status to narcotic agent; Z88.6 Allergy status to analgesic agent; Z91.013 Allergy to seafood; Z88.2 Allergy status to sulfonamides; Z88.8 Allergy status to other drugs, medicaments and biological substances
CPT/HCPCS: 99283; 96372 ×3; J1200; J2405; J1885

== ENCOUNTER 2023-03-25 18:57 | Emergency (ER) | payer MEDICARE, OTHER ==
[2023-03-25 19:25] VITALS: RESP 18; TEMP 98.6
[2023-03-25] MEDS ORDERED: LIDOCAINE 4% PATCH TOPICAL ONE (19:57)
[2023-03-25] MEDS ORDERED: KETOROLAC 15 MG/ML 1 ML VIAL IM STA (19:57)
[2023-03-25] MEDS ORDERED: HYDROmorphone 1 MG/ML 1 ML SYRINGE IM STA (19:57)
[2023-03-25] MEDS ORDERED: ACETAMINOPHEN TAB 500 MG TAB PO STA (19:57)
--- NOTE | 2023-03-25 20:07 | ED ---
General Adult HPI - General Chief complaint: Back Pain/Injury Stated complaint: leg pain Time Seen by Provider: 03/25/23 19:22 Source: patient, RN notes reviewed Mode of arrival: ambulatory - History of Present Illness Initial comments: 37-year-old female presents to the emergency department for leg pain. Patient states that this is chronic in nature. She is well-known to our emergency department for the same complaint. She states that the pain is its typical character. She does admit to taking Ruso at home and she also has a pain pump. Patient reports that her pain pump is running out of life and she needs to have a new one placed in April. She denies any new symptoms at this time. Patient is hoping for pain control in the emergency department. She denies fever, chills, back pain, numbness, tingling. She states that she has a history of complex regional pain syndrome. - Related Data Home Medications Medication Instructions Recorded Confirmed Medroxyprogesterone Acetate 150 mg IM Q84D 11/22/13 10/07/20 [Depo-Provera] rOPINIRole HCL [Requip] 1 mg PO BID@0900,1200 11/22/13 10/07/20 Pentosan Polysulfate Sodium 100 mg PO DAILY 02/10/15 10/07/20 [Elmiron] HYDROcodone/APAP 7.5-325MG [Ruso 1 tab PO BID 07/20/16 10/07/20 7.5-325] Paliperidone IM Pt Own [Invega 117 mg IM Q28D 07/20/16 10/07/20 Sustenna] amantadine HCL [Symmetrel] 100 mg PO BID 11/21/16 10/07/20 Albuterol Sulfate [Proair Hfa] 2 puff INHALATION RT-QID PRN 01/13/18 10/07/20 Butalb/Acetaminophen/Caffeine 1 tab PO Q8H PRN 01/13/18 10/07/20 [Fioricet 50-325-40] Fluticasone Propionate [Flovent 1 puff INHALATION RT-BID 01/13/18 10/07/20 Hfa 110 mcg] gemfibroziL [Lopid] 600 mg PO BID 01/13/18 10/07/20 Gabapentin [Neurontin] 300 mg PO TID 03/11/18 10/07/20 Gabapentin [Neurontin] 600 mg PO TID 09/16/19 10/07/20 Omeprazole [PriLOSEC] 40 mg PO DAILY 09/16/19 10/07/20 rOPINIRole HCL [Requip] 2 mg PO HS 09/16/19 10/07/20 traZODone HCL 300 mg PO HS 09/16/19 10/07/20 hydrOXYzine pamoate [hydrOXYzine 25 mg PO BID 04/13/20 10/07/20 PAMOATE] Cyclobenzaprine [Flexeril] 10 mg PO TID PRN 08/16/20 10/07/20 Fentanyl/Bupivcaine Pain Pump 1 dose INTRATHECA CONTINUOUS 08/16/20 10/07/20 Ibuprofen [Motrin] 600 mg PO TID PRN 10/07/20 10/07/20 diphenhydrAMINE [Benadryl] 50 mg PO DAILY PRN 10/07/20 10/07/20 Previous Rx's Medication Instructions Recorded Erythromycin Ophth Oint [Romycin 1 applic RIGHT EYE QID #1 bottle 10/03/20 Ophth Oint] Ondansetron Odt [Zofran Odt] 4 mg PO Q8HR PRN #14 tab 10/16/20 Ondansetron Odt [Zofran Odt] 4 mg PO Q8HR PRN #10 tab 06/21/21 predniSONE [Deltasone] 20 mg PO BID #10 tab 09/08/21 Cephalexin [Keflex] 500 mg PO Q8HR 7 Days #21 cap 11/25/21 Fluconazole [Diflucan] 150 mg PO ONCE #1 tab 11/25/21 Allergies Allergy/AdvReac Type Severity Reaction Status Date / Time azithromycin Allergy Rash/Hives Verified 03/25/23 19:06 [From Zithromax Z-Mehrdad] cimetidine [From Tagamet] Allergy Rash/Hives Verified 03/25/23 19:06 codeine Allergy Nausea & Verified 03/25/23 19:06 Vomiting ether [Ether] Allergy Anaphylaxis Verified 03/25/23 19:06 Fish Containing Products Allergy Anaphylaxis Verified 03/25/23 19:06 [Fish] ibuprofen [From Motrin] Allergy Rash/Hives Verified 03/25/23 19:06 morphine Allergy Unknown Verified 03/25/23 19:06 ziprasidone HCl [From Geodon] Allergy Extrapyramidal Verified 03/25/23 19:06 Symptoms ciprofloxacin [From Cipro] AdvReac Rash/Hives Verified 03/25/23 19:06 fluphenazine HCl AdvReac Extrapyramidal Verified 03/25/23 19:06 [From Prolixin] Symptoms haloperidol [From Haldol] AdvReac Extrapyramidal Verified 03/25/23 19:06 Symptoms Sulfa (Sulfonamide AdvReac Nausea & Verified 03/25/23 19:06 Antibiotics) Vomiting Review of Systems ROS Statement: Those systems with pertinent positive or pertinent negative responses have been documented in the HPI. ROS Other: All systems not noted in ROS Statement are negative. Past Medical History Past Medical History: Asthma, GERD/Reflux, Hyperlipidemia, Musculoskeletal Disorder, Neurologic Disorder, Osteoarthritis (OA), Seizure Disorder Additional Past Medical History / Comment(s): RSD-DERIC FEET, INTERSTITIAL CYSTITIS, BRONCHITIS, HEMORRHOIDS,MIGRAINES, INSOMNIA. VERTIGO, last seizure 4 years ago, complex regional pain syndrome, RLS. History of Any Multi-Drug Resistant Organisms: MRSA Date of last positivie culture/infection: 04/20/15 MDRO Source:: Left Axilla Past Surgical History: Adenoidectomy, Back Surgery, Cholecystectomy, Orthopedic Surgery, Tonsillectomy Additional Past Surgical History / Comment(s): bilateral foot surgery d/t rsd, numerous pain clinic procedures, nerve stimulator in back to tx RSD placed in Nov 11 2015, pain pump placement, replacement of stimulator 06/2021 Past Anesthesia/Blood Transfusion Reactions: Previous Problems w/ Anesthesia Additional Past Anesthesia/Blood Transfusion Reaction / Comment(s): Pt recieved blood when she was 2 yrs old after tonsillectomy. WHEN BABY HEART STOPPED TWICE- PT STATED SHE WAS ALLERGIC TO ETHER. Past Psychological History: Anxiety, Bipolar, Depression, PTSD Smoking Status: Never smoker Past Alcohol Use History: None Reported Past Drug Use History: Marijuana - Past Family History Father History Unknown: Yes Family Medical History: Diabetes Mellitus Mother Family Medical History: Cancer, CVA/TIA, Diabetes Mellitus, Myocardial Infarction ([place]) Additional Family Medical History / Comment(s): Mother has had 5 CVAs, 3 MIs and UTERINE CANCER General Exam Limitations: no limitations General appearance: alert, in no apparent distress Head exam: Present: atraumatic, normocephalic, normal inspection Eye exam: Present: normal appearance, PERRL, EOMI. Absent: scleral icterus, conjunctival injection, periorbital swelling ENT exam: Present: normal exam, mucous membranes moist Neck exam: Present: normal inspection. Absent: tenderness, meningismus, lymphadenopathy Respiratory exam: Present: normal lung sounds bilaterally. Absent: respiratory distress, wheezes, rales, rhonchi, stridor Cardiovascular Exam: Present: regular rate, normal rhythm, normal heart sounds. Absent: systolic murmur, diastolic murmur, rubs, gallop, clicks Extremities exam: Present: normal inspection, full ROM, normal capillary refill, other (DP PT pulses 2+). Absent: tenderness, pedal edema, joint swelling, calf tenderness Back exam: Present: normal inspection Neurological exam: Present: alert, oriented X3 Psychiatric exam: Present: normal affect, normal mood Skin exam: Present: warm, dry, intact, normal color. Absent: rash Course Vital Signs 03/25/23 03/25/23 19:04 20:40 Temperature 98.6 F Pulse Rate 101 H 100 Respiratory 18 18 Rate Blood Pressure 124/91 126/90 O2 Sat by Pulse 97 99 Oximetry Medical Decision Making - Medical Decision Making Was pt. sent in by a medical professional or institution (, PA, MENTAL HEALTH PROGRAM DIRECTOR, urgent care, hospital, or group home...) When possible be specific @ -No Did you speak to anyone other than the patient for history (EMS, parent, family, police, friend...)? What history was obtained from this source @ -No Did you review nursing and triage notes (agree or disagree)? Why? @ -I reviewed and agree with nursing and triage notes Were old charts reviewed (outside hosp., previous admission, EMS record, old EKG, old radiological studies, urgent care reports/EKG's, group home records)? Report findings @ -No old charts were reviewed Differential Diagnosis (chest pain, altered mental status, abdominal pain women, abdominal pain men, vaginal bleeding, weakness, fever, dyspnea, syncope, headache, dizziness, GI bleed, back pain, seizure, CVA, palpatations, mental health, musculoskeletal)? @ -Differential Musculoskeletal Muscular strain, contusion, ligament sprain, fracture, arthritis, septic arthritis, bursitis, cellulitis, muscle spasm, nerve compression, DVT, arterial occlusion, herpes zoster, electrolyte abnormality, tumor.... This is not meant to be in all inclusive list EKG interpreted by me (3pts min.). @ -None X-rays interpreted by me (1pt min.). @ -None done CT interpreted by me (1pt min.). @ -None done U/S interpreted by me (1pt. min.). @ -None done What testing was considered but not performed or refused? (CT, X-rays, U/S, labs)? Why? @ -X-ray considered, patient has had multiple workups for this same complaint without new symptoms What meds were considered but not given or refused? Why? @ -None Did you discuss the management of the patient with other professionals (professionals i.e. , PA, MENTAL HEALTH PROGRAM DIRECTOR, lab, RT, psych nurse, psychotherapist social worker, personnel research scientist, teacher, veterans service officer, case preparer and liner)? Give summary @ -No Was smoking cessation discussed for >3mins.? @ -No Was critical care preformed (if so, how long)? @ -No Were there social determinants of health that impacted care today? How? (Homelessness, low income, unemployed, alcoholism, drug addiction, transportation, low edu. Level, literacy, decrease access to med. care, shelter, rehab)? @ -No Was there de-escalation of care discussed even if they declined (Discuss DNR or withdrawal of care, Hospice)? DNR status @ -No What co-morbidities impacted this encounter? (DM, HTN, Smoking, COPD, CAD, Cancer, CVA, ARF, Chemo, Hep., AIDS, mental health diagnosis, sleep apnea, morbid obesity)? @ -None Was patient admitted / discharged? Hospital course, mention meds given and route, prescriptions, significant lab abnormalities, going to OR and other pertinent info. @ -Discharged. Patient presented to the emergency department for chief complaint of bilateral leg pain which is chronic in nature. Patient is well- known to our emergency department for this complaint. She denies any new symptoms at this time. She denies numbness, tingling in her extremities. On evaluation, patient has full range of motion to bilateral lower extremities, 5 out of 5 strength, DP and PT pulses 2+., Bilateral lower extremities non- erythematous, nonedematous. Patient given medication for pain control in the emergency department and discharged home with follow-up to her neurologist. Patient stable at time of discharge. Case discussed with Dr. Whalen. Undiagnosed new problem with uncertain prognosis? @ -No Drug Therapy requiring intensive monitoring for toxicity (Heparin, Nitro, Insulin, Cardizem)? @ -No Were any procedures done? @ -No Diagnosis/symptom? @ -leg pain Acute, or Chronic, or Acute on Chronic? @ -chronic Uncomplicated (without systemic symptoms) or Complicated (systemic symptoms)? @ -uncomplicated Side effects of treatment? @ -No Exacerbation, Progression, or Severe Exacerbation? @ -No Poses a threat to life or bodily function? How? (Chest pain, [place], [place], pneumonia, PE, COPD, DKA, ARF, appy, cholecystitis, CVA, Diverticulitis, Homicidal, Suicidal, threat to staff... and all critical care pts) @ -No Disposition Clinical Impression: Leg pain Disposition: HOME SELF-CARE Condition: Stable Instructions (If sedation given, give patient instructions): Leg Pain (ED) Additional Instructions: Please follow up with your neurologist. Return to the emergency department for new or worsening symptoms. Is patient prescribed a controlled substance at d/c from ED?: No Referrals: Enzo Rojas MD [Primary Care Provider] - 1-2 days
[2023-03-25] MEDS ORDERED: diphenhydrAMINE 50 MG/ML 1 ML VIAL IM STA (20:18)
[2023-03-25 21:19] VITALS: BP 126/90; PULSE 100
== END 2023-03-25 21:15 | disposition home or self-care (01) ==
LOC: EC 18:57
DX: M79.604 Pain in right leg (principal); M79.605 Pain in left leg; E78.5 Hyperlipidemia, unspecified; J45.909 Unspecified asthma, uncomplicated; F41.9 Anxiety disorder, unspecified; F31.9 Bipolar disorder, unspecified; F12.90 Cannabis use, unspecified, uncomplicated; Z79.899 Other long term (current) drug therapy; Z88.2 Allergy status to sulfonamides; Z88.1 Allergy status to other antibiotic agents; Z88.8 Allergy status to other drugs, medicaments and biological substances; Z88.5 Allergy status to narcotic agent
CPT/HCPCS: 99283; 96372 ×3; J1200; J1170; J1885

== ENCOUNTER 2023-03-30 01:25 | Emergency (ER) | payer MEDICARE, OTHER ==
[2023-03-30] MEDS ORDERED: HYDROmorphone 1 MG/ML 1 ML SYRINGE IM STA (01:37)
--- NOTE | 2023-03-30 02:29 | ED ---
Extremity Problem HPI - General Chief complaint: Extremity Problem,Nontraumatic Stated complaint: Leg Pain Time Seen by Provider: 03/30/23 01:33 Source: patient Mode of arrival: wheelchair Limitations: no limitations - History of Present Illness Initial comments: 37-year-old female presenting with chief complaint of leg pain. Patient is well-known to our ER and has been seen multiple times for the same complaint. She has history of complex regional pain syndrome. She states that the pain is bilateral along the entire length of the leg. She states that this pain is chronic in nature, there are no changes to her typical symptoms. No injury or trauma. No numbness tingling or weakness. Patient states she has been taking Palmer and ibuprofen at home which has not helped the pain. - Related Data Home Medications Medication Instructions Recorded Confirmed Medroxyprogesterone Acetate 150 mg IM Q84D 11/22/13 10/07/20 [Depo-Provera] rOPINIRole HCL [Requip] 1 mg PO BID@0900,1200 11/22/13 10/07/20 Pentosan Polysulfate Sodium 100 mg PO DAILY 02/10/15 10/07/20 [Elmiron] HYDROcodone/APAP 7.5-325MG [Palmer 1 tab PO BID 07/20/16 10/07/20 7.5-325] Paliperidone IM Pt Own [Invega 117 mg IM Q28D 07/20/16 10/07/20 Sustenna] amantadine HCL [Symmetrel] 100 mg PO BID 11/21/16 10/07/20 Albuterol Sulfate [Proair Hfa] 2 puff INHALATION RT-QID PRN 01/13/18 10/07/20 Butalb/Acetaminophen/Caffeine 1 tab PO Q8H PRN 01/13/18 10/07/20 [Fioricet 50-325-40] Fluticasone Propionate [Flovent 1 puff INHALATION RT-BID 01/13/18 10/07/20 Hfa 110 mcg] gemfibroziL [Lopid] 600 mg PO BID 01/13/18 10/07/20 Gabapentin [Neurontin] 300 mg PO TID 03/11/18 10/07/20 Gabapentin [Neurontin] 600 mg PO TID 09/16/19 10/07/20 Omeprazole [PriLOSEC] 40 mg PO DAILY 09/16/19 10/07/20 rOPINIRole HCL [Requip] 2 mg PO HS 09/16/19 10/07/20 traZODone HCL 300 mg PO HS 09/16/19 10/07/20 hydrOXYzine pamoate [hydrOXYzine 25 mg PO BID 04/13/20 10/07/20 PAMOATE] Cyclobenzaprine [Flexeril] 10 mg PO TID PRN 08/16/20 10/07/20 Fentanyl/Bupivcaine Pain Pump 1 dose INTRATHECA CONTINUOUS 08/16/20 10/07/20 Ibuprofen [Motrin] 600 mg PO TID PRN 10/07/20 10/07/20 diphenhydrAMINE [Benadryl] 50 mg PO DAILY PRN 10/07/20 10/07/20 Previous Rx's Medication Instructions Recorded Erythromycin Ophth Oint [Romycin 1 applic RIGHT EYE QID #1 bottle 10/03/20 Ophth Oint] Ondansetron Odt [Zofran Odt] 4 mg PO Q8HR PRN #14 tab 10/16/20 Ondansetron Odt [Zofran Odt] 4 mg PO Q8HR PRN #10 tab 06/21/21 predniSONE [Deltasone] 20 mg PO BID #10 tab 09/08/21 Cephalexin [Keflex] 500 mg PO Q8HR 7 Days #21 cap 11/25/21 Fluconazole [Diflucan] 150 mg PO ONCE #1 tab 11/25/21 Allergies Allergy/AdvReac Type Severity Reaction Status Date / Time azithromycin Allergy Rash/Hives Verified 03/30/23 01:29 [From Zithromax Z-Mehrdad] cimetidine [From Tagamet] Allergy Rash/Hives Verified 03/30/23 01:29 codeine Allergy Nausea & Verified 03/30/23 01:29 Vomiting ether [Ether] Allergy Anaphylaxis Verified 03/30/23 01:29 Fish Containing Products Allergy Anaphylaxis Verified 03/30/23 01:29 [Fish] ibuprofen [From Motrin] Allergy Rash/Hives Verified 03/30/23 01:29 morphine Allergy Unknown Verified 03/30/23 01:29 ziprasidone HCl [From Geodon] Allergy Extrapyramidal Verified 03/30/23 01:29 Symptoms ciprofloxacin [From Cipro] AdvReac Rash/Hives Verified 03/30/23 01:29 fluphenazine HCl AdvReac Extrapyramidal Verified 03/30/23 01:29 [From Prolixin] Symptoms haloperidol [From Haldol] AdvReac Extrapyramidal Verified 03/30/23 01:29 Symptoms Sulfa (Sulfonamide AdvReac Nausea & Verified 03/30/23 01:29 Antibiotics) Vomiting Review of Systems ROS Statement: Those systems with pertinent positive or pertinent negative responses have been documented in the HPI. ROS Other: All systems not noted in ROS Statement are negative. Past Medical History Past Medical History: Asthma, GERD/Reflux, Hyperlipidemia, Musculoskeletal Disorder, Neurologic Disorder, Osteoarthritis (OA), Seizure Disorder Additional Past Medical History / Comment(s): RSD-DERIC FEET, INTERSTITIAL CYSTITIS, BRONCHITIS, HEMORRHOIDS,MIGRAINES, INSOMNIA. VERTIGO, last seizure 4 years ago, complex regional pain syndrome, RLS. History of Any Multi-Drug Resistant Organisms: MRSA Date of last positivie culture/infection: 04/20/15 MDRO Source:: Left Axilla Past Surgical History: Adenoidectomy, Back Surgery, Cholecystectomy, Orthopedic Surgery, Tonsillectomy Additional Past Surgical History / Comment(s): bilateral foot surgery d/t rsd, numerous pain clinic procedures, nerve stimulator in back to tx RSD placed in Nov 11 2015, pain pump placement, replacement of stimulator 06/2021 Past Anesthesia/Blood Transfusion Reactions: Previous Problems w/ Anesthesia Additional Past Anesthesia/Blood Transfusion Reaction / Comment(s): Pt recieved blood when she was 2 yrs old after tonsillectomy. WHEN BABY HEART STOPPED TWICE- PT STATED SHE WAS ALLERGIC TO ETHER. Past Psychological History: Anxiety, Bipolar, Depression, PTSD Smoking Status: Never smoker Past Alcohol Use History: None Reported Past Drug Use History: Marijuana - Past Family History Father History Unknown: Yes Family Medical History: Diabetes Mellitus Mother Family Medical History: Cancer, CVA/TIA, Diabetes Mellitus, Myocardial Infarction ([place]) Additional Family Medical History / Comment(s): Mother has had 5 CVAs, 3 MIs and UTERINE CANCER General Exam Limitations: no limitations General appearance: alert, in no apparent distress Head exam: Present: atraumatic, normocephalic Eye exam: Present: normal appearance Neck exam: Present: normal inspection Respiratory exam: Present: normal lung sounds bilaterally. Absent: respiratory distress, wheezes, rales, rhonchi, stridor Cardiovascular Exam: Present: regular rate, normal rhythm, normal heart sounds. Absent: systolic murmur, diastolic murmur, rubs, gallop, clicks Extremities exam: Present: normal inspection, full ROM, normal capillary refill Neurological exam: Present: alert, oriented X3 Psychiatric exam: Present: normal affect, normal mood Skin exam: Present: warm, dry Course Vital Signs 03/30/23 03/30/23 01:28 02:55 Temperature 98 F 98.0 F Pulse Rate 117 H 99 Respiratory 20 28 H Rate Blood Pressure 136/89 113/78 O2 Sat by Pulse 100 97 Oximetry Medical Decision Making - Medical Decision Making Was pt. sent in by a medical professional or institution ([facility], RELATIONSHIP CONSULTANT, urgent care, hospital, or [facility]...) When possible be specific @ -No Did you speak to anyone other than the patient for history (EMS, parent, family, police, friend...)? What history was obtained from this source @ -No Did you review nursing and triage notes (agree or disagree)? Why? @ -I reviewed and agree with nursing and triage notes Were old charts reviewed (outside hosp., previous admission, EMS record, old EKG, old radiological studies, urgent care reports/EKG's, [facility] records)? Report findings @ -No old charts were reviewed Differential Diagnosis (chest pain, altered mental status, abdominal pain women, abdominal pain men, vaginal bleeding, weakness, fever, dyspnea, syncope, headache, dizziness, GI bleed, back pain, seizure, CVA, palpatations, mental health, musculoskeletal)? @ -Differential Musculoskeletal Muscular strain, contusion, ligament sprain, fracture, arthritis, septic arthritis, bursitis, cellulitis, muscle spasm, nerve compression, DVT, arterial occlusion, herpes zoster, electrolyte abnormality, tumor.... This is not meant to be in all inclusive list EKG interpreted by me (3pts min.). @ -As above X-rays interpreted by me (1pt min.). @ -None done CT interpreted by me (1pt min.). @ -None done U/S interpreted by me (1pt. min.). @ -None done What testing was considered but not performed or refused? (CT, X-rays, U/S, labs)? Why? @ -None What meds were considered but not given or refused? Why? @ -None Did you discuss the management of the patient with other professionals (professionals i.e. , PA, RELATIONSHIP CONSULTANT, lab, RT, psych nurse, manager social responsibility, application chemist, teacher, officer captain, case specialist)? Give summary @ -No Was smoking cessation discussed for >3mins.? @ -No Was critical care preformed (if so, how long)? @ -No Were there social determinants of health that impacted care today? How? (Homelessness, low income, unemployed, alcoholism, drug addiction, transportation, low edu. Level, literacy, decrease access to med. care, senior care, rehab)? @ -No Was there de-escalation of care discussed even if they declined (Discuss DNR or withdrawal of care, Hospice)? DNR status @ -No What co-morbidities impacted this encounter? (DM, HTN, Smoking, COPD, CAD, Cancer, CVA, ARF, Chemo, Hep., AIDS, mental health diagnosis, sleep apnea, morbid obesity)? @ -None Was patient admitted / discharged? Hospital course, mention meds given and route, prescriptions, significant lab abnormalities, going to OR and other pertinent info. @ -37-year-old female presenting with chief complaint of bilateral lower extremity pain. This pain is chronic in nature for this patient, she has history of complex regional pain syndrome, no changes from her typical pain. She is neurovascularly intact. She is given pain medication, on reassessment she appears much more comfortable. Discharged home. Follow-up with PCP. Report back to ER with any new or worsening symptoms. Discussed return parameters and answered all questions. Patient conveyed verbal understanding and agreed to the plan. I discussed this case in detail with my attending Dr. Mario Undiagnosed new problem with uncertain prognosis? @ -No Drug Therapy requiring intensive monitoring for toxicity (Heparin, Nitro, Insulin, Cardizem)? @ -No Were any procedures done? @ -No Diagnosis/symptom? @ -Chronic pain Acute, or Chronic, or Acute on Chronic? @ -acute on chronic Uncomplicated (without systemic symptoms) or Complicated (systemic symptoms)? @ -Uncomplicated Side effects of treatment? @ -No Exacerbation, Progression, or Severe Exacerbation? @ -No Poses a threat to life or bodily function? How? (Chest pain, [place], [place], pneumonia, PE, COPD, DKA, ARF, appy, cholecystitis, CVA, Diverticulitis, Homicidal, Suicidal, threat to staff... and all critical care pts) @ -No Disposition Clinical Impression: Chronic pain syndrome Disposition: HOME SELF-CARE Condition: Good Instructions (If sedation given, give patient instructions): Chronic Pain (ED) Additional Instructions: Follow-up with PCP. Report back to ER if any new or worsening symptoms. Is patient prescribed a controlled substance at d/c from ED?: No Referrals: Enzo Rojas MD [Primary Care Provider] - 1-2 days Time of Disposition: 02:29
[2023-03-30] MEDS ORDERED: diphenhydrAMINE 50 MG/ML 1 ML VIAL IM STA (03:01)
[2023-03-30] MEDS ORDERED: KETOROLAC 15 MG/ML 1 ML VIAL IM STA (03:01)
[2023-03-30 03:51] VITALS: BP 113/78; PULSE 99; RESP 28; TEMP 98
== END 2023-03-30 03:36 | disposition home or self-care (01) ==
LOC: EC 01:25
DX: G89.4 Chronic pain syndrome (principal); E78.5 Hyperlipidemia, unspecified; F31.9 Bipolar disorder, unspecified; F41.9 Anxiety disorder, unspecified; J45.909 Unspecified asthma, uncomplicated; K21.9 Gastro-esophageal reflux disease without esophagitis; F12.90 Cannabis use, unspecified, uncomplicated; Z79.51 Long term (current) use of inhaled steroids; Z79.899 Other long term (current) drug therapy; Z88.6 Allergy status to analgesic agent; Z91.013 Allergy to seafood; Z88.5 Allergy status to narcotic agent; Z88.2 Allergy status to sulfonamides; Z88.8 Allergy status to other drugs, medicaments and biological substances; Z90.49 Acquired absence of other specified parts of digestive tract
CPT/HCPCS: 99283; 96372 ×3; J1200; J1170; J1885

== ENCOUNTER 2023-04-03 17:32 | Emergency (ER) | payer MEDICARE, OTHER ==
[2023-04-03 17:56] VITALS: RESP 18
[2023-04-03] MEDS ORDERED: KETOROLAC 15 MG/ML 1 ML VIAL IM STA (17:58)
[2023-04-03] MEDS ORDERED: diphenhydrAMINE 50 MG/ML 1 ML VIAL IM STA (18:59)
--- NOTE | 2023-04-03 19:00 | ED ---
Headache HPI - General Chief Complaint: Headache Stated Complaint: headache Time Seen by Provider: 04/03/23 18:30 Source: patient, RN notes reviewed Mode of arrival: ambulatory Limitations: no limitations - History of Present Illness Initial Comments: Patient is a 37-year-old female presented ER with chief complaint of migraine headache. Patient states she has been taking [id number] medications and prescribed migraine medications without relief. Patient endorses visual disturbances and a pounding sensation in her head. Patient has a history of migraine headaches. Patient denies any nausea vomiting. Patient denies any other complaints at this time. - Related Data Home Medications Medication Instructions Recorded Confirmed Medroxyprogesterone Acetate 150 mg IM Q84D 11/22/13 10/07/20 [Depo-Provera] rOPINIRole HCL [Requip] 1 mg PO BID@0900,1200 11/22/13 10/07/20 Pentosan Polysulfate Sodium 100 mg PO DAILY 02/10/15 10/07/20 [Elmiron] HYDROcodone/APAP 7.5-325MG [[place] 1 tab PO BID 07/20/16 10/07/20 7.5-325] Paliperidone IM Pt Own [Invega 117 mg IM Q28D 07/20/16 10/07/20 Sustenna] amantadine HCL [Symmetrel] 100 mg PO BID 11/21/16 10/07/20 Albuterol Sulfate [Proair Hfa] 2 puff INHALATION RT-QID PRN 01/13/18 10/07/20 Butalb/Acetaminophen/Caffeine 1 tab PO Q8H PRN 01/13/18 10/07/20 [Fioricet 50-325-40] Fluticasone Propionate [Flovent 1 puff INHALATION RT-BID 01/13/18 10/07/20 Hfa 110 mcg] gemfibroziL [Lopid] 600 mg PO BID 01/13/18 10/07/20 Gabapentin [Neurontin] 300 mg PO TID 03/11/18 10/07/20 Gabapentin [Neurontin] 600 mg PO TID 09/16/19 10/07/20 Omeprazole [PriLOSEC] 40 mg PO DAILY 09/16/19 10/07/20 rOPINIRole HCL [Requip] 2 mg PO HS 09/16/19 10/07/20 traZODone HCL 300 mg PO HS 09/16/19 10/07/20 hydrOXYzine pamoate [hydrOXYzine 25 mg PO BID 04/13/20 10/07/20 PAMOATE] Cyclobenzaprine [Flexeril] 10 mg PO TID PRN 08/16/20 10/07/20 Fentanyl/Bupivcaine Pain Pump 1 dose INTRATHECA CONTINUOUS 08/16/20 10/07/20 Ibuprofen [Motrin] 600 mg PO TID PRN 10/07/20 10/07/20 diphenhydrAMINE [Benadryl] 50 mg PO DAILY PRN 10/07/20 10/07/20 Previous Rx's Medication Instructions Recorded Erythromycin Ophth Oint [Romycin 1 applic RIGHT EYE QID #1 bottle 10/03/20 Ophth Oint] Ondansetron Odt [Zofran Odt] 4 mg PO Q8HR PRN #14 tab 10/16/20 Ondansetron Odt [Zofran Odt] 4 mg PO Q8HR PRN #10 tab 06/21/21 predniSONE [Deltasone] 20 mg PO BID #10 tab 09/08/21 Cephalexin [Keflex] 500 mg PO Q8HR 7 Days #21 cap 11/25/21 Fluconazole [Diflucan] 150 mg PO ONCE #1 tab 11/25/21 Allergies Allergy/AdvReac Type Severity Reaction Status Date / Time azithromycin Allergy Rash/Hives Verified 04/03/23 17:37 [From Zithromax Z-Mehrdad] cimetidine [From Tagamet] Allergy Rash/Hives Verified 04/03/23 17:37 codeine Allergy Nausea & Verified 04/03/23 17:37 Vomiting ether [Ether] Allergy Anaphylaxis Verified 04/03/23 17:37 Fish Containing Products Allergy Anaphylaxis Verified 04/03/23 17:37 [Fish] ibuprofen [From Motrin] Allergy Rash/Hives Verified 04/03/23 17:37 morphine Allergy Unknown Verified 04/03/23 17:37 ziprasidone HCl [From Geodon] Allergy Extrapyramidal Verified 04/03/23 17:37 Symptoms ciprofloxacin [From Cipro] AdvReac Rash/Hives Verified 04/03/23 17:37 fluphenazine HCl AdvReac Extrapyramidal Verified 04/03/23 17:37 [From Prolixin] Symptoms haloperidol [From Haldol] AdvReac Extrapyramidal Verified 04/03/23 17:37 Symptoms Sulfa (Sulfonamide AdvReac Nausea & Verified 04/03/23 17:37 Antibiotics) Vomiting Review of Systems ROS Statement: Those systems with pertinent positive or pertinent negative responses have been documented in the HPI. ROS Other: All systems not noted in ROS Statement are negative. Past Medical History Past Medical History: Asthma, GERD/Reflux, Hyperlipidemia, Musculoskeletal Disorder, Neurologic Disorder, Osteoarthritis (OA), Seizure Disorder Additional Past Medical History / Comment(s): RSD-DERIC FEET, INTERSTITIAL CYSTITIS, BRONCHITIS, HEMORRHOIDS,MIGRAINES, INSOMNIA. VERTIGO, last seizure 4 years ago, complex regional pain syndrome, RLS. History of Any Multi-Drug Resistant Organisms: MRSA Date of last positivie culture/infection: 04/20/15 MDRO Source:: Left Axilla Past Surgical History: Adenoidectomy, Back Surgery, Cholecystectomy, Orthopedic Surgery, Tonsillectomy Additional Past Surgical History / Comment(s): bilateral foot surgery d/t rsd, numerous pain clinic procedures, nerve stimulator in back to tx RSD placed in Nov 11 2015, pain pump placement, replacement of stimulator 06/2021 Past Anesthesia/Blood Transfusion Reactions: Previous Problems w/ Anesthesia Additional Past Anesthesia/Blood Transfusion Reaction / Comment(s): Pt recieved blood when she was 2 yrs old after tonsillectomy. WHEN BABY HEART STOPPED TWICE- PT STATED SHE WAS ALLERGIC TO ETHER. Past Psychological History: Anxiety, Bipolar, Depression, PTSD Smoking Status: Never smoker Past Alcohol Use History: None Reported Past Drug Use History: Marijuana - Past Family History Father History Unknown: Yes Family Medical History: Diabetes Mellitus Mother Family Medical History: Cancer, CVA/TIA, Diabetes Mellitus, Myocardial Infarction ([place]) Additional Family Medical History / Comment(s): Mother has had 5 CVAs, 3 MIs and UTERINE CANCER General Exam Limitations: no limitations General appearance: alert, in no apparent distress Head exam: Present: atraumatic, normocephalic, normal inspection Eye exam: Present: normal appearance, PERRL, EOMI. Absent: scleral icterus, conjunctival injection, periorbital swelling Pupils: Present: normal accommodation Respiratory exam: Present: normal lung sounds bilaterally. Absent: respiratory distress, wheezes, rales, rhonchi, stridor Cardiovascular Exam: Present: regular rate, normal rhythm, normal heart sounds. Absent: systolic murmur, diastolic murmur, rubs, gallop, clicks Neurological exam: Present: alert, oriented X3, CN II-XII intact Psychiatric exam: Present: normal affect, normal mood, anxious Skin exam: Present: warm, dry, intact, normal color. Absent: rash Course Vital Signs 04/03/23 04/03/23 17:35 19:13 Temperature 98.6 F 98.4 F Pulse Rate 120 H 98 Respiratory 18 18 Rate Blood Pressure 147/81 136/76 O2 Sat by Pulse 98 96 Oximetry Medical Decision Making - Medical Decision Making Was pt. sent in by a medical professional or institution (, PA, ELEMENTARY SCHOOL PROFESSIONAL, urgent care, hospital, or longterm...) When possible be specific @ -No Did you speak to anyone other than the patient for history (EMS, parent, family, police, friend...)? What history was obtained from this source @ -No Did you review nursing and triage notes (agree or disagree)? Why? @ -I reviewed and agree with nursing and triage notes Were old charts reviewed (outside hosp., previous admission, EMS record, old EKG, old radiological studies, urgent care reports/EKG's, longterm records)? Report findings @ -No old charts were reviewed Differential Diagnosis (chest pain, altered mental status, abdominal pain women, abdominal pain men, vaginal bleeding, weakness, fever, dyspnea, syncope, headache, dizziness, GI bleed, back pain, seizure, CVA, palpatations, mental health, musculoskeletal)? @ -Differential Headache: Migraine, tension, cluster, carbon monoxide, central venous thrombosis, pension karma temporal arteritis, acute closure glaucoma, intercranial hemorrhage, mastoiditis, sinusitis, head injury, this is not meant to be an all-inclusive list. EKG interpreted by me (3pts min.). @ -None X-rays interpreted by me (1pt min.). @ -None done CT interpreted by me (1pt min.). @ -None done U/S interpreted by me (1pt. min.). @ -None done What testing was considered but not performed or refused? (CT, X-rays, U/S, labs)? Why? @ -None What meds were considered but not given or refused? Why? @ -None Did you discuss the management of the patient with other professionals (pro fessionals i.e. , PA, ELEMENTARY SCHOOL PROFESSIONAL, lab, RT, psych nurse, social work program coordinator, traffic sign supervisor, teacher, investment officer, outsole caser)? Give summary @ -No Was smoking cessation discussed for >3mins.? @ -No Was critical care preformed (if so, how long)? @ -No Were there social determinants of health that impacted care today? How? (Homelessness, low income, unemployed, alcoholism, drug addiction, transportation, low edu. Level, literacy, decrease access to med. care, long-term, rehab)? @ -No Was there de-escalation of care discussed even if they declined (Discuss DNR or withdrawal of care, Hospice)? DNR status @ -No What co-morbidities impacted this encounter? (DM, HTN, Smoking, COPD, CAD, Cancer, CVA, ARF, Chemo, Hep., AIDS, mental health diagnosis, sleep apnea, morbid obesity)? @ -Migraines Was patient admitted / discharged? Hospital course, mention meds given and route, prescriptions, significant lab abnormalities, going to OR and other pertinent info. @ -Discharge. Vital stable. No acute neurological findings. He received IM Benadryl and Toradol for pain control. Patient will be discharged stable condition with follow-up to PCP. Return parameters were discussed. Patient expressed understanding and agreement with care plan. Undiagnosed new problem with uncertain prognosis? @ -No Drug Therapy requiring intensive monitoring for toxicity (Heparin, Nitro, Insulin, Cardizem)? @ -No Were any procedures done? @ -No Diagnosis/symptom? @ -Migraine headache Acute, or Chronic, or Acute on Chronic? @ -Acute on chronic Uncomplicated (without systemic symptoms) or Complicated (systemic symptoms)? @ -Uncomplicated Side effects of treatment? @ -No Exacerbation, Progression, or Severe Exacerbation? @ -No Poses a threat to life or bodily function? How? (Chest pain, [place], [place], pneumonia, PE, COPD, DKA, ARF, appy, cholecystitis, CVA, Diverticulitis, Homicidal, Suicidal, threat to staff... and all critical care pts) @ -No Disposition Clinical Impression: Migraine headache Disposition: HOME SELF-CARE Condition: Stable Additional Instructions: Please return to the ER for any new or worsening symptoms. Is patient prescribed a controlled substance at d/c from ED?: No Referrals: Enzo Rojas MD [Primary Care Provider] - 1-2 days Time of Disposition: 19:00
--- NOTE | 2023-04-03 19:03 | ED ---
Headache HPI - General Chief Complaint: Headache Stated Complaint: headache Mode of arrival: ambulatory Limitations: no limitations - Related Data Home Medications Medication Instructions Recorded Confirmed Medroxyprogesterone Acetate 150 mg IM Q84D 11/22/13 10/07/20 [Depo-Provera] rOPINIRole HCL [Requip] 1 mg PO BID@0900,1200 11/22/13 10/07/20 Pentosan Polysulfate Sodium 100 mg PO DAILY 02/10/15 10/07/20 [Elmiron] HYDROcodone/APAP 7.5-325MG [[place] 1 tab PO BID 07/20/16 10/07/20 7.5-325] Paliperidone IM Pt Own [Invega 117 mg IM Q28D 07/20/16 10/07/20 Sustenna] amantadine HCL [Symmetrel] 100 mg PO BID 11/21/16 10/07/20 Albuterol Sulfate [Proair Hfa] 2 puff INHALATION RT-QID PRN 01/13/18 10/07/20 Butalb/Acetaminophen/Caffeine 1 tab PO Q8H PRN 01/13/18 10/07/20 [Fioricet 50-325-40] Fluticasone Propionate [Flovent 1 puff INHALATION RT-BID 01/13/18 10/07/20 Hfa 110 mcg] gemfibroziL [Lopid] 600 mg PO BID 01/13/18 10/07/20 Gabapentin [Neurontin] 300 mg PO TID 03/11/18 10/07/20 Gabapentin [Neurontin] 600 mg PO TID 09/16/19 10/07/20 Omeprazole [PriLOSEC] 40 mg PO DAILY 09/16/19 10/07/20 rOPINIRole HCL [Requip] 2 mg PO HS 09/16/19 10/07/20 traZODone HCL 300 mg PO HS 09/16/19 10/07/20 hydrOXYzine pamoate [hydrOXYzine 25 mg PO BID 04/13/20 10/07/20 PAMOATE] Cyclobenzaprine [Flexeril] 10 mg PO TID PRN 08/16/20 10/07/20 Fentanyl/Bupivcaine Pain Pump 1 dose INTRATHECA CONTINUOUS 08/16/20 10/07/20 Ibuprofen [Motrin] 600 mg PO TID PRN 10/07/20 10/07/20 diphenhydrAMINE [Benadryl] 50 mg PO DAILY PRN 10/07/20 10/07/20 Previous Rx's Medication Instructions Recorded Erythromycin Ophth Oint [Romycin 1 applic RIGHT EYE QID #1 bottle 10/03/20 Ophth Oint] Ondansetron Odt [Zofran Odt] 4 mg PO Q8HR PRN #14 tab 10/16/20 Ondansetron Odt [Zofran Odt] 4 mg PO Q8HR PRN #10 tab 06/21/21 predniSONE [Deltasone] 20 mg PO BID #10 tab 09/08/21 Cephalexin [Keflex] 500 mg PO Q8HR 7 Days #21 cap 11/25/21 Fluconazole [Diflucan] 150 mg PO ONCE #1 tab 11/25/21 Allergies Allergy/AdvReac Type Severity Reaction Status Date / Time azithromycin Allergy Rash/Hives Verified 04/03/23 17:37 [From Zithromax Z-Mehrdad] cimetidine [From Tagamet] Allergy Rash/Hives Verified 04/03/23 17:37 codeine Allergy Nausea & Verified 04/03/23 17:37 Vomiting ether [Ether] Allergy Anaphylaxis Verified 04/03/23 17:37 Fish Containing Products Allergy Anaphylaxis Verified 04/03/23 17:37 [Fish] ibuprofen [From Motrin] Allergy Rash/Hives Verified 04/03/23 17:37 morphine Allergy Unknown Verified 04/03/23 17:37 ziprasidone HCl [From Geodon] Allergy Extrapyramidal Verified 04/03/23 17:37 Symptoms ciprofloxacin [From Cipro] AdvReac Rash/Hives Verified 04/03/23 17:37 fluphenazine HCl AdvReac Extrapyramidal Verified 04/03/23 17:37 [From Prolixin] Symptoms haloperidol [From Haldol] AdvReac Extrapyramidal Verified 04/03/23 17:37 Symptoms Sulfa (Sulfonamide AdvReac Nausea & Verified 04/03/23 17:37 Antibiotics) Vomiting Review of Systems ROS Statement: Those systems with pertinent positive or pertinent negative responses have been documented in the HPI. ROS Other: All systems not noted in ROS Statement are negative. Past Medical History Past Medical History: Asthma, GERD/Reflux, Hyperlipidemia, Musculoskeletal Disorder, Neurologic Disorder, Osteoarthritis (OA), Seizure Disorder Additional Past Medical History / Comment(s): RSD-DERIC FEET, INTERSTITIAL CYSTITIS, BRONCHITIS, HEMORRHOIDS,MIGRAINES, INSOMNIA. VERTIGO, last seizure 4 years ago, complex regional pain syndrome, RLS. History of Any Multi-Drug Resistant Organisms: MRSA Date of last positivie culture/infection: 04/20/15 MDRO Source:: Left Axilla Past Surgical History: Adenoidectomy, Back Surgery, Cholecystectomy, Orthopedic Surgery, Tonsillectomy Additional Past Surgical History / Comment(s): bilateral foot surgery d/t rsd, numerous pain clinic procedures, nerve stimulator in back to tx RSD placed in Nov 11 2015, pain pump placement, replacement of stimulator 06/2021 Past Anesthesia/Blood Transfusion Reactions: Previous Problems w/ Anesthesia Additional Past Anesthesia/Blood Transfusion Reaction / Comment(s): Pt recieved blood when she was 2 yrs old after tonsillectomy. WHEN BABY HEART STOPPED TWICE- PT STATED SHE WAS ALLERGIC TO ETHER. Past Psychological History: Anxiety, Bipolar, Depression, PTSD Smoking Status: Never smoker Past Alcohol Use History: None Reported Past Drug Use History: Marijuana - Past Family History Father History Unknown: Yes Family Medical History: Diabetes Mellitus Mother Family Medical History: Cancer, CVA/TIA, Diabetes Mellitus, Myocardial Infarction ([place]) Additional Family Medical History / Comment(s): Mother has had 5 CVAs, 3 MIs and UTERINE CANCER General Exam Limitations: no limitations Course Vital Signs 04/03/23 17:35 Temperature 98.6 F Pulse Rate 120 H Respiratory 18 Rate Blood Pressure 147/81 O2 Sat by Pulse 98 Oximetry Disposition Referrals: Enzo Rojas MD [Primary Care Provider] - 1-2 days
[2023-04-03 19:20] VITALS: BP 136/76; PULSE 98; TEMP 98.4
== END 2023-04-03 19:15 | disposition home or self-care (01) ==
LOC: EC 17:32
DX: G43.909 Migraine, unspecified, not intractable, without status migrainosus (principal); J45.909 Unspecified asthma, uncomplicated; K21.9 Gastro-esophageal reflux disease without esophagitis; M19.90 Unspecified osteoarthritis, unspecified site; F41.9 Anxiety disorder, unspecified; F31.9 Bipolar disorder, unspecified; Z88.6 Allergy status to analgesic agent; Z88.2 Allergy status to sulfonamides; Z88.5 Allergy status to narcotic agent; Z91.013 Allergy to seafood; Z79.51 Long term (current) use of inhaled steroids; Z79.899 Other long term (current) drug therapy
CPT/HCPCS: 99283; 96372 ×2; J1200; J1885

== ENCOUNTER 2023-04-04 01:17 | Emergency (ER) | payer MEDICARE, OTHER ==
[2023-04-04 02:11] VITALS: TEMP 98.2
--- NOTE | 2023-04-04 02:26 | ED ---
General Adult HPI - General Source: patient Mode of arrival: wheelchair Limitations: no limitations <Jorge A Rowe - Last Filed: 04/04/23 02:26> - General Source: patient, RN notes reviewed Mode of arrival: wheelchair Limitations: no limitations <Thomas Roa - Last Filed: 04/04/23 15:09> - General Chief complaint: Shortness of Breath Stated complaint: Cough, vomiting Time Seen by Provider: 04/04/23 06:45 - History of Present Illness Initial comments: 37-year-old female with past medical history significant for asthma presenting to the ED with a chief complaint of dyspnea. Patient states for the past week and a half has had upper respiratory symptoms. She states that despite being on antibiotics these have not improved. States since this is been going on has been getting short of breath however notes that her albuterol has been helping him relief this. Today states her albuterol he is not providing relief prompting presentation to the ED for further evaluation. (Jorge A Rowe) 37-year-old female presents emergency from chief shortness of breath. Patient states she's had URI symptoms. Patient states that she was placed on antibiotics but states that doesn't seem to be clearing up everything. Patient states she's not have tubing for her albuterol treatments. She has used her inhalers. Patient denies any chest pain or palpitations as he nausea or v omiting currently but states that she did have some episodes. (Thomas Roa) - Related Data Home Medications Medication Instructions Recorded Confirmed Medroxyprogesterone Acetate 150 mg IM Q84D 11/22/13 10/07/20 [Depo-Provera] rOPINIRole HCL [Requip] 1 mg PO BID@0900,1200 11/22/13 10/07/20 Pentosan Polysulfate Sodium 100 mg PO DAILY 02/10/15 10/07/20 [Elmiron] HYDROcodone/APAP 7.5-325MG [Raywick 1 tab PO BID 07/20/16 10/07/20 7.5-325] Paliperidone IM Pt Own [Invega 117 mg IM Q28D 07/20/16 10/07/20 Sustenna] amantadine HCL [Symmetrel] 100 mg PO BID 11/21/16 10/07/20 Albuterol Sulfate [Proair Hfa] 2 puff INHALATION RT-QID PRN 01/13/18 10/07/20 Butalb/Acetaminophen/Caffeine 1 tab PO Q8H PRN 01/13/18 10/07/20 [Fioricet 50-325-40] Fluticasone Propionate [Flovent 1 puff INHALATION RT-BID 01/13/18 10/07/20 Hfa 110 mcg] gemfibroziL [Lopid] 600 mg PO BID 01/13/18 10/07/20 Gabapentin [Neurontin] 300 mg PO TID 03/11/18 10/07/20 Gabapentin [Neurontin] 600 mg PO TID 09/16/19 10/07/20 Omeprazole [PriLOSEC] 40 mg PO DAILY 09/16/19 10/07/20 rOPINIRole HCL [Requip] 2 mg PO HS 09/16/19 10/07/20 traZODone HCL 300 mg PO HS 09/16/19 10/07/20 hydrOXYzine pamoate [hydrOXYzine 25 mg PO BID 04/13/20 10/07/20 PAMOATE] Cyclobenzaprine [Flexeril] 10 mg PO TID PRN 08/16/20 10/07/20 Fentanyl/Bupivcaine Pain Pump 1 dose INTRATHECA CONTINUOUS 08/16/20 10/07/20 Ibuprofen [Motrin] 600 mg PO TID PRN 10/07/20 10/07/20 diphenhydrAMINE [Benadryl] 50 mg PO DAILY PRN 10/07/20 10/07/20 Previous Rx's Medication Instructions Recorded Erythromycin Ophth Oint [Romycin 1 applic RIGHT EYE QID #1 bottle 10/03/20 Ophth Oint] Ondansetron Odt [Zofran Odt] 4 mg PO Q8HR PRN #14 tab 10/16/20 Ondansetron Odt [Zofran Odt] 4 mg PO Q8HR PRN #10 tab 06/21/21 predniSONE [Deltasone] 20 mg PO BID #10 tab 09/08/21 Cephalexin [Keflex] 500 mg PO Q8HR 7 Days #21 cap 11/25/21 Fluconazole [Diflucan] 150 mg PO ONCE #1 tab 11/25/21 Allergies Allergy/AdvReac Type Severity Reaction Status Date / Time azithromycin Allergy Rash/Hives Verified 04/04/23 01:50 [From Zithromax Z-Mehrdad] cimetidine [From Tagamet] Allergy Rash/Hives Verified 04/04/23 01:50 codeine Allergy Nausea & Verified 04/04/23 01:50 Vomiting ether [Ether] Allergy Anaphylaxis Verified 04/04/23 01:50 Fish Containing Products Allergy Anaphylaxis Verified 04/04/23 01:50 [Fish] ibuprofen [From Motrin] Allergy Rash/Hives Verified 04/04/23 01:50 morphine Allergy Unknown Verified 04/04/23 01:50 ziprasidone HCl [From Geodon] Allergy Extrapyramidal Verified 04/04/23 01:50 Symptoms ciprofloxacin [From Cipro] AdvReac Rash/Hives Verified 04/04/23 01:50 fluphenazine HCl AdvReac Extrapyramidal Verified 04/04/23 01:50 [From Prolixin] Symptoms haloperidol [From Haldol] AdvReac Extrapyramidal Verified 04/04/23 01:50 Symptoms Sulfa (Sulfonamide AdvReac Nausea & Verified 04/04/23 01:50 Antibiotics) Vomiting Review of Systems ROS Other: All systems not noted in ROS Statement are negative. <Jorge A Rowe - Last Filed: 04/04/23 02:26> ROS Other: All systems not noted in ROS Statement are negative. <Thomas Roa - Last Filed: 04/04/23 15:09> ROS Statement: Those systems with pertinent positive or pertinent negative responses have been documented in the HPI. Past Medical History Past Medical History: Asthma, GERD/Reflux, Hyperlipidemia, Musculoskeletal Disorder, Neurologic Disorder, Osteoarthritis (OA), Seizure Disorder Additional Past Medical History / Comment(s): RSD-DERIC FEET, INTERSTITIAL CYSTITIS, BRONCHITIS, HEMORRHOIDS,MIGRAINES, INSOMNIA. VERTIGO, last seizure 4 years ago, complex regional pain syndrome, RLS. History of Any Multi-Drug Resistant Organisms: MRSA Date of last positivie culture/infection: 04/20/15 MDRO Source:: Left Axilla Past Surgical History: Adenoidectomy, Back Surgery, Cholecystectomy, Orthopedic Surgery, Tonsillectomy Additional Past Surgical History / Comment(s): bilateral foot surgery d/t rsd, numerous pain clinic procedures, nerve stimulator in back to tx RSD placed in Nov 11 2015, pain pump placement, replacement of stimulator 06/2021 Past Anesthesia/Blood Transfusion Reactions: Previous Problems w/ Anesthesia Additional Past Anesthesia/Blood Transfusion Reaction / Comment(s): Pt recieved blood when she was 2 yrs old after tonsillectomy. WHEN BABY HEART STOPPED TWICE- PT STATED SHE WAS ALLERGIC TO ETHER. Past Psychological History: Anxiety, Bipolar, Depression, PTSD Smoking Status: Never smoker Past Alcohol Use History: None Reported Past Drug Use History: Marijuana - Past Family History Father History Unknown: Yes Family Medical History: Diabetes Mellitus Mother Family Medical History: Cancer, CVA/TIA, Diabetes Mellitus, Myocardial Infarction ([place]) Additional Family Medical History / Comment(s): Mother has had 5 CVAs, 3 MIs and UTERINE CANCER <Jorge A Rowe - Last Filed: 04/04/23 02:26> General Exam Limitations: no limitations <Jorge A Rowe - Last Filed: 04/04/23 02:26> Limitations: no limitations General appearance: alert, in no apparent distress Head exam: Present: atraumatic, normocephalic, normal inspection Eye exam: Present: normal appearance, PERRL, EOMI. Absent: scleral icterus, conjunctival injection, periorbital swelling ENT exam: Present: normal exam, mucous membranes moist Neck exam: Present: normal inspection. Absent: tenderness, meningismus, lymphadenopathy Respiratory exam: Present: normal lung sounds bilaterally. Absent: respiratory distress, wheezes, rales, rhonchi, stridor Cardiovascular Exam: Present: regular rate (Heart rate 88 on exam), normal rhythm, normal heart sounds. Absent: systolic murmur, diastolic murmur, rubs, gallop, clicks GI/Abdominal exam: Present: soft, normal bowel sounds. Absent: distended, tenderness, guarding, rebound, rigid <Thomas Roa - Last Filed: 04/04/23 15:09> - General Exam Comments Initial Comments: Visual Physical Exam Vital signs reviewed General: Well-appearing, nontoxic, no acute distress. Head: Normocephalic, atraumatic Eyes: PERRLA, EOMI ENT: Airway patent Skin: No visual rash, normal skin tone Neuro: Alert and oriented 3 Musculoskeletal: No gross abnormalities (Jorge A Rowe) Course Vital Signs 04/04/23 04/04/23 01:50 07:24 Temperature 98.2 F 98.2 F Pulse Rate 122 H 120 H Respiratory 20 18 Rate Blood Pressure 130/79 129/86 O2 Sat by Pulse 97 97 Oximetry Medical Decision Making <Jorge A Rowe - Last Filed: 04/04/23 02:26> <Thomas Roa - Last Filed: 04/04/23 15:09> - Medical Decision Making Quicknote portion performed. Signed Jorge A Rowe PA-C (Jorge A Rowe) Was pt. sent in by a medical professional or institution ([facility], CAPACITY PLANNING MANAGER, urgent care, hospital, or penitentiary...) When possible be specific @ -No Did you speak to anyone other than the patient for history (EMS, parent, family, police, friend...)? What history was obtained from this source @ -No Did you review nursing and triage notes (agree or disagree)? Why? @ -I reviewed and agree with nursing and triage notes Were old charts reviewed (outside hosp., previous admission, EMS record, old EKG, old radiological studies, urgent care reports/EKG's, penitentiary records)? Report findings @ -No old charts were reviewed Differential Diagnosis (chest pain, altered mental status, abdominal pain women, abdominal pain men, vaginal bleeding, weakness, fever, dyspnea, syncope, headache, dizziness, GI bleed, back pain, seizure, CVA, palpatations, mental health, musculoskeletal)? @ -COVID 19, RSV, influenza, pneumonia, acute bronchitis, URI, this list is not all inclusivee EKG interpreted by me (3pts min.). @ -None X-rays interpreted by me (1pt min.). @ -Chest x-ray shows hazy viral changes, no lobar pneumonia CT interpreted by me (1pt min.). @ -None done U/S interpreted by me (1pt. min.). @ -None done What testing was considered but not performed or refused? (CT, X-rays, U/S, labs)? Why? @ -None What meds were considered but not given or refused? Why? @ -None Did you discuss the management of the patient with other professionals (professionals i.e. [facility], CAPACITY PLANNING MANAGER, lab, RT, psych nurse, psychosocial rehabilitation counselor, bondactor machine operator, teacher, police commanding officer, casework supervisor)? Give summary @ -No Was smoking cessation discussed for >3mins.? @ -No Was critical care preformed (if so, how long)? @ -No Were there social determinants of health that impacted care today? How? (Homelessness, low income, unemployed, alcoholism, drug addiction, transportation, low edu. Level, literacy, decrease access to med. care, halfway, rehab)? @ -No Was there de-escalation of care discussed even if they declined (Discuss DNR or withdrawal of care, Hospice)? DNR status @ -No What co-morbidities impacted this encounter? (DM, HTN, Smoking, COPD, CAD, Cancer, CVA, ARF, Chemo, Hep., AIDS, mental health diagnosis, sleep apnea, morbid obesity)? @ -Asthma, chronic pain Was patient admitted / discharged? Hospital course, mention meds given and route, prescriptions, significant lab abnormalities, going to OR and other pertinent info. @ -Discharge patient is stable condition, vitals reviewed. Patient's RSV positive patient we discharged with supportive treatment return parameters were discussed. Undiagnosed new problem with uncertain prognosis? @ -No Drug Therapy requiring intensive monitoring for toxicity (Heparin, Nitro, Insulin, Cardizem)? @ -No Were any procedures done? @ -No Diagnosis/symptom? @ -RSV Acute, or Chronic, or Acute on Chronic? @ -Acute Uncomplicated (without systemic symptoms) or Complicated (systemic symptoms)? @ -[Uncomplicated Side effects of treatment? @ -No Exacerbation, Progression, or Severe Exacerbation? @ -No Poses a threat to life or bodily function? How? (Chest pain, [place], [place], pneumonia, PE, COPD, DKA, ARF, appy, cholecystitis, CVA, Diverticulitis, Homicidal, Suicidal, threat to staff... and all critical care pts) @ -No (Thomas Roa) - Lab Data Lab Results 04/04/23 Range/Units 04:16 Influenza Type A (PCR) Not Detected (Not Detectd) Influenza Type B (PCR) Not Detected (Not Detectd) RSV (PCR) Detected A (Not Detectd) SARS-CoV-2 (PCR) Not Detected (Not Detectd) Disposition <Jorge A Rowe - Last Filed: 04/04/23 02:26> Is patient prescribed a controlled substance at d/c from ED?: No Time of Disposition: 06:45 <Thomas Roa - Last Filed: 04/04/23 15:09> Clinical Impression: RSV/bronchiolitis Disposition: HOME SELF-CARE Condition: Stable Instructions (If sedation given, give patient instructions): Bronchiolitis (ED) Additional Instructions: Please return to the Emergency Department if symptoms worsen or any other concerns. Referrals: Enzo Rojas MD [Primary Care Provider] - 1-2 days
--- NOTE | 2023-04-04 06:01 | XR ---
EXAM: XR Chest, 2 Views CLINICAL HISTORY: ITS.REASON XR Reason: difficulty breathing TECHNIQUE: Frontal and lateral views of the chest. COMPARISON: 03/26/2022 FINDINGS: Lungs: Left mediolateral probable tiny calcified granuloma. Elevated diaphragms, crowding of the bronchovascular markings and. Slightly ill- defined bronchovascular markings. No consolidation. Pleural space: Unremarkable. No pneumothorax. Heart: Unremarkable. No cardiomegaly. Mediastinum: Unremarkable. Normal mediastinal contour. Bones/joints: Unremarkable. No acute fracture. Tubes, lines and devices: Intraspinous neurostimulator 5-6-5 paddles, as seen previously. IMPRESSION: Probable mild atelectasis and interstitial edema or unusual pneumonia changes
[2023-04-04] MEDS ORDERED: HYDROmorphone 1 MG/ML 1 ML SYRINGE IM STA (06:45)
[2023-04-04 07:48] VITALS: BP 129/86; PULSE 120; RESP 18
== END 2023-04-04 07:36 | disposition home or self-care (01) ==
LOC: EC 01:17
DX: J21.0 Acute bronchiolitis due to respiratory syncytial virus (principal); J45.909 Unspecified asthma, uncomplicated; K21.9 Gastro-esophageal reflux disease without esophagitis; F41.9 Anxiety disorder, unspecified; F31.9 Bipolar disorder, unspecified; F12.90 Cannabis use, unspecified, uncomplicated; Z79.51 Long term (current) use of inhaled steroids; Z79.899 Other long term (current) drug therapy; Z20.822 Contact with and (suspected) exposure to COVID-19; Z88.2 Allergy status to sulfonamides; Z88.5 Allergy status to narcotic agent; Z88.1 Allergy status to other antibiotic agents; Z91.013 Allergy to seafood; Z88.8 Allergy status to other drugs, medicaments and biological substances
CPT/HCPCS: 87636; 71046; 99285; 96372; J1170

== ENCOUNTER 2023-04-13 19:51 | Emergency (ER) | payer MEDICARE, OTHER ==
[2023-04-13 20:02] VITALS: TEMP 98.5
[2023-04-13] MEDS ORDERED: HYDROmorphone 1 MG/ML 1 ML SYRINGE IM STA (21:15)
[2023-04-13] MEDS ORDERED: KETOROLAC 15 MG/ML 1 ML VIAL IM STA (21:15)
--- NOTE | 2023-04-13 21:23 | ED ---
General Adult HPI - General Chief complaint: Extremity Injury, Lower Stated complaint: fall/ right knee injury Time Seen by Provider: 04/13/23 20:12 Source: patient Mode of arrival: wheelchair Limitations: no limitations - History of Present Illness Initial comments: 37-year-old female presents emergency department for evaluation of right pain. Patient states that she slipped on ice today and landed on her right side. She states that she feels this triggered her leg pain that is chronic. Denies numbness, tingling. He denies redness, swelling to the leg. She is able to ambulate. - Related Data Home Medications Medication Instructions Recorded Confirmed Medroxyprogesterone Acetate 150 mg IM Q84D 11/22/13 10/07/20 [Depo-Provera] rOPINIRole HCL [Requip] 1 mg PO BID@0900,1200 11/22/13 10/07/20 Pentosan Polysulfate Sodium 100 mg PO DAILY 02/10/15 10/07/20 [Elmiron] HYDROcodone/APAP 7.5-325MG [Daisy 1 tab PO BID 07/20/16 10/07/20 7.5-325] Paliperidone IM Pt Own [Invega 117 mg IM Q28D 07/20/16 10/07/20 Sustenna] amantadine HCL [Symmetrel] 100 mg PO BID 11/21/16 10/07/20 Albuterol Sulfate [Proair Hfa] 2 puff INHALATION RT-QID PRN 01/13/18 10/07/20 Butalb/Acetaminophen/Caffeine 1 tab PO Q8H PRN 01/13/18 10/07/20 [Fioricet 50-325-40] Fluticasone Propionate [Flovent 1 puff INHALATION RT-BID 01/13/18 10/07/20 Hfa 110 mcg] gemfibroziL [Lopid] 600 mg PO BID 01/13/18 10/07/20 Gabapentin [Neurontin] 300 mg PO TID 03/11/18 10/07/20 Gabapentin [Neurontin] 600 mg PO TID 09/16/19 10/07/20 Omeprazole [PriLOSEC] 40 mg PO DAILY 09/16/19 10/07/20 rOPINIRole HCL [Requip] 2 mg PO HS 09/16/19 10/07/20 traZODone HCL 300 mg PO HS 09/16/19 10/07/20 hydrOXYzine pamoate [hydrOXYzine 25 mg PO BID 04/13/20 10/07/20 PAMOATE] Cyclobenzaprine [Flexeril] 10 mg PO TID PRN 08/16/20 10/07/20 Fentanyl/Bupivcaine Pain Pump 1 dose INTRATHECA CONTINUOUS 08/16/20 10/07/20 Ibuprofen [Motrin] 600 mg PO TID PRN 10/07/20 10/07/20 diphenhydrAMINE [Benadryl] 50 mg PO DAILY PRN 10/07/20 10/07/20 Previous Rx's Medication Instructions Recorded Erythromycin Ophth Oint [Romycin 1 applic RIGHT EYE QID #1 bottle 10/03/20 Ophth Oint] Ondansetron Odt [Zofran Odt] 4 mg PO Q8HR PRN #14 tab 10/16/20 Ondansetron Odt [Zofran Odt] 4 mg PO Q8HR PRN #10 tab 06/21/21 predniSONE [Deltasone] 20 mg PO BID #10 tab 09/08/21 Cephalexin [Keflex] 500 mg PO Q8HR 7 Days #21 cap 11/25/21 Fluconazole [Diflucan] 150 mg PO ONCE #1 tab 11/25/21 Allergies Allergy/AdvReac Type Severity Reaction Status Date / Time azithromycin Allergy Rash/Hives Verified 04/13/23 19:56 [From Zithromax Z-Mehrdad] cimetidine [From Tagamet] Allergy Rash/Hives Verified 04/13/23 19:56 codeine Allergy Nausea & Verified 04/13/23 19:56 Vomiting ether [Ether] Allergy Anaphylaxis Verified 04/13/23 19:56 Fish Containing Products Allergy Anaphylaxis Verified 04/13/23 19:56 [Fish] ibuprofen [From Motrin] Allergy Rash/Hives Verified 04/13/23 19:56 morphine Allergy Unknown Verified 04/13/23 19:56 ziprasidone HCl [From Geodon] Allergy Extrapyramidal Verified 04/13/23 19:56 Symptoms ciprofloxacin [From Cipro] AdvReac Rash/Hives Verified 04/13/23 19:56 fluphenazine HCl AdvReac Extrapyramidal Verified 04/13/23 19:56 [From Prolixin] Symptoms haloperidol [From Haldol] AdvReac Extrapyramidal Verified 04/13/23 19:56 Symptoms Sulfa (Sulfonamide AdvReac Nausea & Verified 04/13/23 19:56 Antibiotics) Vomiting Review of Systems ROS Statement: Those systems with pertinent positive or pertinent negative responses have been documented in the HPI. ROS Other: All systems not noted in ROS Statement are negative. Past Medical History Past Medical History: Asthma, GERD/Reflux, Hyperlipidemia, Musculoskeletal Disorder, Neurologic Disorder, Osteoarthritis (OA), Seizure Disorder Additional Past Medical History / Comment(s): RSD-DERIC FEET, INTERSTITIAL CYSTITIS, BRONCHITIS, HEMORRHOIDS,MIGRAINES, INSOMNIA. VERTIGO, last seizure 4 years ago, complex regional pain syndrome, RLS. History of Any Multi-Drug Resistant Organisms: MRSA Date of last positivie culture/infection: 04/20/15 MDRO Source:: Left Axilla Past Surgical History: Adenoidectomy, Back Surgery, Cholecystectomy, Orthopedic Surgery, Tonsillectomy Additional Past Surgical History / Comment(s): bilateral foot surgery d/t rsd, numerous pain clinic procedures, nerve stimulator in back to tx RSD placed in Nov 11 2015, pain pump placement, replacement of stimulator 06/2021 Past Anesthesia/Blood Transfusion Reactions: Previous Problems w/ Anesthesia Additional Past Anesthesia/Blood Transfusion Reaction / Comment(s): Pt recieved blood when she was 2 yrs old after tonsillectomy. WHEN BABY HEART STOPPED TWICE- PT STATED SHE WAS ALLERGIC TO ETHER. Past Psychological History: Anxiety, Bipolar, Depression, PTSD Smoking Status: Never smoker Past Alcohol Use History: None Reported Past Drug Use History: Marijuana - Past Family History Father History Unknown: Yes Family Medical History: Diabetes Mellitus Mother Family Medical History: Cancer, CVA/TIA, Diabetes Mellitus, Myocardial Inf arction ([place]) Additional Family Medical History / Comment(s): Mother has had 5 CVAs, 3 MIs and UTERINE CANCER General Exam Limitations: no limitations General appearance: alert, in no apparent distress Head exam: Present: atraumatic, normocephalic, normal inspection Eye exam: Present: normal appearance, PERRL, EOMI. Absent: scleral icterus, conjunctival injection, periorbital swelling ENT exam: Present: normal exam, mucous membranes moist Respiratory exam: Present: normal lung sounds bilaterally. Absent: respiratory distress, wheezes, rales, rhonchi, stridor Cardiovascular Exam: Present: regular rate, normal rhythm, normal heart sounds. Absent: systolic murmur, diastolic murmur, rubs, gallop, clicks Extremities exam: Present: normal inspection, full ROM, tenderness, normal capillary refill, other (DP and PT pulses 2+). Absent: pedal edema, joint swelling, calf tenderness Neurological exam: Present: alert, oriented X3 Psychiatric exam: Present: normal affect, normal mood Skin exam: Present: warm, dry, intact, normal color. Absent: rash Course Vital Signs 04/13/23 19:54 Temperature 98.5 F Pulse Rate 104 H Respiratory 20 Rate Blood Pressure 129/84 O2 Sat by Pulse 98 Oximetry Medical Decision Making - Medical Decision Making Was pt. sent in by a medical professional or institution ([facility], TAX PROCESSOR, urgent care, hospital, or assisted...) When possible be specific @ -No Did you speak to anyone other than the patient for history (EMS, parent, family, police, friend...)? What history was obtained from this source @ -No Did you review nursing and triage notes (agree or disagree)? Why? @ -I reviewed and agree with nursing and triage notes Were old charts reviewed (outside hosp., previous admission, EMS record, old EKG, old radiological studies, urgent care reports/EKG's, assisted records)? Report findings @ -No old charts were reviewed Differential Diagnosis (chest pain, altered mental status, abdominal pain women, abdominal pain men, vaginal bleeding, weakness, fever, dyspnea, syncope, headache, dizziness, GI bleed, back pain, seizure, CVA, palpatations, mental health, musculoskeletal)? @ -Differential Musculoskeletal Muscular strain, contusion, ligament sprain, fracture, arthritis, septic arthritis, bursitis, cellulitis, muscle spasm, nerve compression, DVT, arterial occlusion, herpes zoster, electrolyte abnormality, tumor.... This is not meant to be in all inclusive list EKG interpreted by me (3pts min.). @ -none X-rays interpreted by me (1pt min.). @ -None done CT interpreted by me (1pt min.). @ -None done U/S interpreted by me (1pt. min.). @ -None done What testing was considered but not performed or refused? (CT, X-rays, U/S, labs)? Why? @ -X-ray right femur considered patient refused What meds were considered but not given or refused? Why? @ -None Did you discuss the management of the patient with other professionals (professionals i.e. , PA, TAX PROCESSOR, lab, RT, psych nurse, geriatric social work professor, power machine operator, teacher, state patrol officer, nurse outreach case manager)? Give summary @ -No Was smoking cessation discussed for >3mins.? @ -No Was critical care preformed (if so, how long)? @ -No Were there social determinants of health that impacted care today? How? (Homelessness, low income, unemployed, alcoholism, drug addiction, transportation, low edu. Level, literacy, decrease access to med. care, residential, rehab)? @ -No Was there de-escalation of care discussed even if they declined (Discuss DNR or withdrawal of care, Hospice)? DNR status @ -No What co-morbidities impacted this encounter? (DM, HTN, Smoking, COPD, CAD, Cancer, CVA, ARF, Chemo, Hep., AIDS, mental health diagnosis, sleep apnea, morbid obesity)? @ -None Was patient admitted / discharged? Hospital course, mention meds given and route, prescriptions, significant lab abnormalities, going to OR and other pertinent info. @ -discharged. Patient presented to the emergency department for leg pain. Patient states she slipped on ice today hurting her right thigh. She refuses x- rays at this time. Patient psych medications for pain management. Pain was controlled in the emergency department and patient will be discharged home. Patient stable condition. Case discussed with Dr. Veliz Undiagnosed new problem with uncertain prognosis? @ -No Drug Therapy requiring intensive monitoring for toxicity (Heparin, Nitro, Insulin, Cardizem)? @ -No Were any procedures done? @ -No Diagnosis/symptom? @ -leg pain Acute, or Chronic, or Acute on Chronic? @ -acute Uncomplicated (without systemic symptoms) or Complicated (systemic symptoms)? @ -uncomplicated Side effects of treatment? @ -No Exacerbation, Progression, or Severe Exacerbation? @ -No Poses a threat to life or bodily function? How? (Chest pain, [place], [place], pneumonia, PE, COPD, DKA, ARF, appy, cholecystitis, CVA, Diverticulitis, Homicidal, Suicidal, threat to staff... and all critical care pts) @ -No Disposition Clinical Impression: Fall, Leg pain Disposition: HOME SELF-CARE Condition: Stable Instructions (If sedation given, give patient instructions): Fall Prevention (ED) Additional Instructions: Please follow up with your primary care provider. Return to the emergency department for new or worsening symptoms. Is patient prescribed a controlled substance at d/c from ED?: No Referrals: Enzo Rojas MD [Primary Care Provider] - 1-2 days
[2023-04-13 22:15] VITALS: BP 134/88; PULSE 96; RESP 17
== END 2023-04-13 21:51 | disposition home or self-care (01) ==
LOC: EC 19:51
DX: M25.561 Pain in right knee (principal); E78.5 Hyperlipidemia, unspecified; F31.9 Bipolar disorder, unspecified; F41.9 Anxiety disorder, unspecified; J45.909 Unspecified asthma, uncomplicated; K21.9 Gastro-esophageal reflux disease without esophagitis; Z79.51 Long term (current) use of inhaled steroids; Z79.899 Other long term (current) drug therapy; Z88.6 Allergy status to analgesic agent; Z88.2 Allergy status to sulfonamides; Z88.5 Allergy status to narcotic agent; Z91.013 Allergy to seafood; W00.0XXA Fall on same level due to ice and snow, initial encounter
CPT/HCPCS: 99283; 96372 ×2; J1170; J1885

== ENCOUNTER 2023-04-15 23:03 | Emergency (ER) | payer MEDICARE, OTHER ==
[2023-04-15 23:36] VITALS: RESP 20; TEMP 98.5
[2023-04-16] MEDS ORDERED: HYDROmorphone 0.5 MG/0.5 ML SYRINGE IM STA (02:25)
--- NOTE | 2023-04-16 02:27 | ED ---
General Adult HPI - General Chief complaint: Extremity Injury, Lower Stated complaint: Fall, hip injury Time Seen by Provider: 04/16/23 02:10 Source: patient, RN notes reviewed, old records reviewed Mode of arrival: ambulatory Limitations: no limitations - History of Present Illness Initial comments: Patient is a 37-year-old female who presents emergency Department complaining of right hip pain. History of chronic pain. Has a nerve stimulator and is on multiple pain medications at home with a pain contract. Patient fell the other day and since then has been having right hip pain. Presents for reevaluation at this time. Declined an x-ray the other day. Presents and did accept an x-ray today. Has been ambulatory. Has been taking all of her chronic pain meds without much relief. Is requesting a dose of Dilaudid. I evaluated the patient when she was placed in room. Workup was started in triage. - Related Data Home Medications Medication Instructions Recorded Confirmed Medroxyprogesterone Acetate 150 mg IM Q84D 11/22/13 10/07/20 [Depo-Provera] rOPINIRole HCL [Requip] 1 mg PO BID@0900,1200 11/22/13 10/07/20 Pentosan Polysulfate Sodium 100 mg PO DAILY 02/10/15 10/07/20 [Elmiron] HYDROcodone/APAP 7.5-325MG [[place] 1 tab PO BID 07/20/16 10/07/20 7.5-325] Paliperidone IM Pt Own [Invega 117 mg IM Q28D 07/20/16 10/07/20 Sustenna] amantadine HCL [Symmetrel] 100 mg PO BID 11/21/16 10/07/20 Albuterol Sulfate [Proair Hfa] 2 puff INHALATION RT-QID PRN 01/13/18 10/07/20 Butalb/Acetaminophen/Caffeine 1 tab PO Q8H PRN 01/13/18 10/07/20 [Fioricet 50-325-40] Fluticasone Propionate [Flovent 1 puff INHALATION RT-BID 01/13/18 10/07/20 Hfa 110 mcg] gemfibroziL [Lopid] 600 mg PO BID 01/13/18 10/07/20 Gabapentin [Neurontin] 300 mg PO TID 03/11/18 10/07/20 Gabapentin [Neurontin] 600 mg PO TID 09/16/19 10/07/20 Omeprazole [PriLOSEC] 40 mg PO DAILY 09/16/19 10/07/20 rOPINIRole HCL [Requip] 2 mg PO HS 09/16/19 10/07/20 traZODone HCL 300 mg PO HS 09/16/19 10/07/20 hydrOXYzine pamoate [hydrOXYzine 25 mg PO BID 04/13/20 10/07/20 PAMOATE] Cyclobenzaprine [Flexeril] 10 mg PO TID PRN 08/16/20 10/07/20 Fentanyl/Bupivcaine Pain Pump 1 dose INTRATHECA CONTINUOUS 08/16/20 10/07/20 Ibuprofen [Motrin] 600 mg PO TID PRN 10/07/20 10/07/20 diphenhydrAMINE [Benadryl] 50 mg PO DAILY PRN 10/07/20 10/07/20 Previous Rx's Medication Instructions Recorded Erythromycin Ophth Oint [Romycin 1 applic RIGHT EYE QID #1 bottle 10/03/20 Ophth Oint] Ondansetron Odt [Zofran Odt] 4 mg PO Q8HR PRN #14 tab 10/16/20 Ondansetron Odt [Zofran Odt] 4 mg PO Q8HR PRN #10 tab 06/21/21 predniSONE [Deltasone] 20 mg PO BID #10 tab 09/08/21 Cephalexin [Keflex] 500 mg PO Q8HR 7 Days #21 cap 11/25/21 Fluconazole [Diflucan] 150 mg PO ONCE #1 tab 11/25/21 Allergies Allergy/AdvReac Type Severity Reaction Status Date / Time azithromycin Allergy Rash/Hives Verified 04/15/23 23:27 [From Zithromax Z-Mehrdad] cimetidine [From Tagamet] Allergy Rash/Hives Verified 04/15/23 23:27 codeine Allergy Nausea & Verified 04/15/23 23:27 Vomiting ether [Ether] Allergy Anaphylaxis Verified 04/15/23 23:27 Fish Containing Products Allergy Anaphylaxis Verified 04/15/23 23:27 [Fish] ibuprofen [From Motrin] Allergy Rash/Hives Verified 04/15/23 23:27 morphine Allergy Unknown Verified 04/15/23 23:27 ziprasidone HCl [From Geodon] Allergy Extrapyramidal Verified 04/15/23 23:27 Symptoms ciprofloxacin [From Cipro] AdvReac Rash/Hives Verified 04/15/23 23:27 fluphenazine HCl AdvReac Extrapyramidal Verified 04/15/23 23:27 [From Prolixin] Symptoms haloperidol [From Haldol] AdvReac Extrapyramidal Verified 04/15/23 23:27 Symptoms Sulfa (Sulfonamide AdvReac Nausea & Verified 04/15/23 23:27 Antibiotics) Vomiting Review of Systems ROS Statement: Those systems with pertinent positive or pertinent negative responses have been documented in the HPI. Review of Systems: CONST: Denies fever EYES: Denies blurry vision ENT: Denies nasal congestion C/V: Denies Chest pain RESP: Denies shortness of breath GI: Denies abdominal pain : Denies dysuria SKIN: Denies rash. MSK: Endorses right hip pain NEURO: Denies headache ROS Other: All systems not noted in ROS Statement are negative. Past Medical History Past Medical History: Asthma, GERD/Reflux, Hyperlipidemia, Musculoskeletal Disorder, Neurologic Disorder, Osteoarthritis (OA), Seizure Disorder Additional Past Medical History / Comment(s): RSD-DERIC FEET, INTERSTITIAL CYSTITIS, BRONCHITIS, HEMORRHOIDS,MIGRAINES, INSOMNIA. VERTIGO, last seizure 4 years ago, complex regional pain syndrome, RLS. History of Any Multi-Drug Resistant Organisms: MRSA Date of last positivie culture/infection: 04/20/15 MDRO Source:: Left Axilla Past Surgical History: Adenoidectomy, Back Surgery, Cholecystectomy, Orthopedic Surgery, Tonsillectomy Additional Past Surgical History / Comment(s): bilateral foot surgery d/t rsd, numerous pain clinic procedures, nerve stimulator in back to tx RSD placed in Nov 11 2015, pain pump placement, replacement of stimulator 06/2021 Past Anesthesia/Blood Transfusion Reactions: Previous Problems w/ Anesthesia Additional Past Anesthesia/Blood Transfusion Reaction / Comment(s): Pt recieved blood when she was 2 yrs old after tonsillectomy. WHEN BABY HEART STOPPED TWICE- PT STATED SHE WAS ALLERGIC TO ETHER. Past Psychological History: Anxiety, Bipolar, Depression, PTSD Smoking Status: Never smoker Past Alcohol Use History: None Reported Past Drug Use History: Marijuana - Past Family History Father History Unknown: Yes Family Medical History: Diabetes Mellitus Mother Family Medical History: Cancer, CVA/TIA, Diabetes Mellitus, Myocardial Infarction ([place]) Additional Family Medical History / Comment(s): Mother has had 5 CVAs, 3 MIs and UTERINE CANCER General Exam - General Exam Comments Initial Comments: General: Appears in mild distress. HEAD: Normal with no signs of head trauma. EYES: EOMI ENT: Hearing grossly intact RESPIRATORY: No respiratory distress C/V: peripheral pulses 2+ and intact throughout ABD: Abd is nondistended EXT: No obvious deformity. Reduced range of motion of the right hip secondary to pain. SKIN: No rashes or lesions observed on exposed skin. NEURO: Alert and oriented 4. Limitations: no limitations Course Vital Signs 04/15/23 23:24 Temperature 98.5 F Pulse Rate 94 Respiratory 20 Rate Blood Pressure 137/88 O2 Sat by Pulse 99 Oximetry Medical Decision Making - Medical Decision Making Was pt. sent in by a medical professional or institution (, PA, MANAGER OPERATIONS AND PROCUREMENT, urgent care, hospital, or shelter...) When possible be specific @ -No Did you speak to anyone other than the patient for history (EMS, parent, family, police, friend...)? What history was obtained from this source @ -No Did you review nursing and triage notes (agree or disagree)? Why? @ -I reviewed and agree with nursing and triage notes Were old charts reviewed (outside hosp., previous admission, EMS record, old EKG, old radiological studies, urgent care reports/EKG's, shelter records)? Report findings @ -Old charts reviewed Differential Diagnosis (chest pain, altered mental status, abdominal pain women, abdominal pain men, vaginal bleeding, weakness, fever, dyspnea, syncope, headache, dizziness, GI bleed, back pain, seizure, CVA, palpatations, mental health, musculoskeletal)? @ -Differential Musculoskeletal Muscular strain, contusion, ligament sprain, fracture, arthritis, septic arthritis, bursitis, cellulitis, muscle spasm, nerve compression, DVT, arterial occlusion, herpes zoster, electrolyte abnormality, tumor.... This is not meant to be in all inclusive list EKG interpreted by me (3pts min.). @ -None done X-rays interpreted by me (1pt min.). @ -Right hip x-ray negative for any obvious traumatic injury. CT interpreted by me (1pt min.). @ -None done U/S interpreted by me (1pt. min.). @ -None done What testing was considered but not performed or refused? (CT, X-rays, U/S, labs)? Why? @ -None What meds were considered but not given or refused? Why? @ -None Did you discuss the management of the patient with other professionals (professionals i.e. , PA, MANAGER OPERATIONS AND PROCUREMENT, lab, RT, psych nurse, mental health social worker, planner internship, t eacher, chief data officer, shoe caser)? Give summary @ -No Was smoking cessation discussed for >3mins.? @ -No Was critical care preformed (if so, how long)? @ -No Were there social determinants of health that impacted care today? How? (Homelessness, low income, unemployed, alcoholism, drug addiction, transportation, low edu. Level, literacy, decrease access to med. care, skilled nursing, rehab)? @ -No Was there de-escalation of care discussed even if they declined (Discuss DNR or withdrawal of care, Hospice)? DNR status @ -No What co-morbidities impacted this encounter? (DM, HTN, Smoking, COPD, CAD, Cancer, CVA, ARF, Chemo, Hep., AIDS, mental health diagnosis, sleep apnea, morbid obesity)? @ -None Was patient admitted / discharged? Hospital course, mention meds given and ro sukhdev, prescriptions, significant lab abnormalities, going to OR and other pertinent info. @ -Based on the patient's presentation and physical exam, I'm concerned for possible injury the patient's right hip, however she does have a history of chronic pain in this regard are emergency department for pain medications. X- ray obtained while patient was in triage is negative for any obvious injury. I discussed this with the patient. She'll be given a small dose of IM analgesic medications and discharged home. She was in agreement this plan. She'll follow up with her pain doctor for any adjustments. Vital signs within acceptable limits. Neurovascular intact throughout. I instructed the patient to follow up with their PCP in the next 1-3 days. I explained that the patient should return to the emergency department if they experience any worsening symptoms. Strict return precautions were discussed with the patient. The patient expressed understanding of these instructions. I answered all questions that the patient had. The patient was discharged home in good condition with their prescriptions and follow up information. Undiagnosed new problem with uncertain prognosis? @ -No Drug Therapy requiring intensive monitoring for toxicity (Heparin, Nitro, Insulin, Cardizem)? @ -No Were any procedures done? @ -No Diagnosis/symptom? @ -Fall, right hip pain Acute, or Chronic, or Acute on Chronic? @ -Acute Uncomplicated (without systemic symptoms) or Complicated (systemic symptoms)? @ -uncomplicated Side effects of treatment? @ -No Exacerbation, Progression, or Severe Exacerbation? @ -No Poses a threat to life or bodily function? How? (Chest pain, [place], [place], pneumonia, PE, COPD, DKA, ARF, appy, cholecystitis, CVA, Diverticulitis, Homicidal, Suicidal, threat to staff... and all critical care pts) @ -No Disposition Clinical Impression: Fall, Hip pain Disposition: HOME SELF-CARE Condition: Good Instructions (If sedation given, give patient instructions): Hip Pain (ED) Is patient prescribed a controlled substance at d/c from ED?: No Referrals: Enzo Rojas MD [Primary Care Provider] - 1-2 days Time of Disposition: 02:24
[2023-04-16 02:36] VITALS: BP 111/80; PULSE 95
--- NOTE | 2023-04-16 03:02 | XR ---
EXAM: XR Right Hip With Pelvis When Performed, 2 or 3 Views CLINICAL HISTORY: ITS.REASON XR Reason: fall TECHNIQUE: Two or three views of the right hip with pelvis when performed. COMPARISON: No relevant prior studies available. FINDINGS: Bones/joints: No acute fracture. No dislocation. Soft tissues: Unremarkable. IMPRESSION: No acute osseous abnormalities.
== END 2023-04-16 02:40 | disposition home or self-care (01) ==
LOC: EC 23:03
DX: M25.551 Pain in right hip (principal); E78.5 Hyperlipidemia, unspecified; F31.9 Bipolar disorder, unspecified; F41.9 Anxiety disorder, unspecified; M19.90 Unspecified osteoarthritis, unspecified site; J45.909 Unspecified asthma, uncomplicated; K21.9 Gastro-esophageal reflux disease without esophagitis; F12.90 Cannabis use, unspecified, uncomplicated; Z79.51 Long term (current) use of inhaled steroids; Z79.899 Other long term (current) drug therapy; Z88.6 Allergy status to analgesic agent; Z88.2 Allergy status to sulfonamides; Z88.5 Allergy status to narcotic agent; Z88.8 Allergy status to other drugs, medicaments and biological substances; Z90.49 Acquired absence of other specified parts of digestive tract; Z91.013 Allergy to seafood; W18.30XA Fall on same level, unspecified, initial encounter
CPT/HCPCS: 73502; 99283; 96372; J1170

== ENCOUNTER 2023-04-21 15:56 | Emergency (ER) | payer MEDICARE, OTHER ==
[2023-04-21 16:07] VITALS: TEMP 97.5
[2023-04-21] MEDS ORDERED: HYDROmorphone 1 MG/ML 1 ML SYRINGE IM STA (16:09)
[2023-04-21] MEDS ORDERED: diazePAM 5 MG TAB PO STA (16:09)
[2023-04-21] MEDS ORDERED: diphenhydrAMINE 25 MG CAP PO STA (16:09)
--- NOTE | 2023-04-21 16:54 | ED ---
Recheck HPI - General Chief Complaint: Extremity Problem,Nontraumatic Stated Complaint: Leg Pain Time Seen by Provider: 04/21/23 16:05 Source: patient, RN notes reviewed, old records reviewed Mode of arrival: ambulatory Limitations: no limitations - History of Present Illness Initial Comments: This is a 37-year-old female who is well-known to this emergency department today. Patient Dese for evaluation of chronic pain. Chronic leg pain restless leg syndrome history of neuropathic pain. Patient states that her pain pump may or may not be working with patient main complaint is that the symptoms are persistent. Shaking in both legs trembling of both legs and symptoms been going on for 3 days and increasing. MD Complaint: medication refill request, other (Patient is in significant pain) -: days(s) (3) Returns Today for: persistent/worsening pain related to initial visit Symptoms Since Prior Visit: worsening pain Context: called for abnormal lab result Treatments Prior to Arrival: Given Pain Meds on - Related Data Home Medications Medication Instructions Recorded Confirmed Medroxyprogesterone Acetate 150 mg IM Q84D 11/22/13 10/07/20 [Depo-Provera] rOPINIRole HCL [Requip] 1 mg PO BID@0900,1200 11/22/13 10/07/20 Pentosan Polysulfate Sodium 100 mg PO DAILY 02/10/15 10/07/20 [Elmiron] HYDROcodone/APAP 7.5-325MG [[place] 1 tab PO BID 07/20/16 10/07/20 7.5-325] Paliperidone IM Pt Own [Invega 117 mg IM Q28D 07/20/16 10/07/20 Sustenna] amantadine HCL [Symmetrel] 100 mg PO BID 11/21/16 10/07/20 Albuterol Sulfate [Proair Hfa] 2 puff INHALATION RT-QID PRN 01/13/18 10/07/20 Butalb/Acetaminophen/Caffeine 1 tab PO Q8H PRN 01/13/18 10/07/20 [Fioricet 50-325-40] Fluticasone Propionate [Flovent 1 puff INHALATION RT-BID 01/13/18 10/07/20 Hfa 110 mcg] gemfibroziL [Lopid] 600 mg PO BID 01/13/18 10/07/20 Gabapentin [Neurontin] 300 mg PO TID 03/11/18 10/07/20 Gabapentin [Neurontin] 600 mg PO TID 09/16/19 10/07/20 Omeprazole [PriLOSEC] 40 mg PO DAILY 09/16/19 10/07/20 rOPINIRole HCL [Requip] 2 mg PO HS 09/16/19 10/07/20 traZODone HCL 300 mg PO HS 09/16/19 10/07/20 hydrOXYzine pamoate 25 mg PO BID 04/13/20 10/07/20 Cyclobenzaprine [Flexeril] 10 mg PO TID PRN 08/16/20 10/07/20 Fentanyl/Bupivcaine Pain Pump 1 dose INTRATHECA CONTINUOUS 08/16/20 10/07/20 Ibuprofen [Motrin] 600 mg PO TID PRN 10/07/20 10/07/20 diphenhydrAMINE [Benadryl] 50 mg PO DAILY PRN 10/07/20 10/07/20 Previous Rx's Medication Instructions Recorded Erythromycin Ophth Oint [Romycin 1 applic RIGHT EYE QID #1 bottle 10/03/20 Ophth Oint] Ondansetron Odt [Zofran Odt] 4 mg PO Q8HR PRN #14 tab 10/16/20 Ondansetron Odt [Zofran Odt] 4 mg PO Q8HR PRN #10 tab 06/21/21 predniSONE [Deltasone] 20 mg PO BID #10 tab 09/08/21 Cephalexin [Keflex] 500 mg PO Q8HR 7 Days #21 cap 11/25/21 Fluconazole [Diflucan] 150 mg PO ONCE #1 tab 11/25/21 Allergies Allergy/AdvReac Type Severity Reaction Status Date / Time azithromycin Allergy Rash/Hives Verified 04/24/23 20:41 [From Zithromax Z-Mehrdad] cimetidine [From Tagamet] Allergy Rash/Hives Verified 04/24/23 20:41 codeine Allergy Nausea & Verified 04/24/23 20:41 Vomiting ether [Ether] Allergy Anaphylaxis Verified 04/24/23 20:41 Fish Containing Products Allergy Anaphylaxis Verified 04/24/23 20:41 [Fish] ibuprofen [From Motrin] Allergy Rash/Hives Verified 04/24/23 20:41 morphine Allergy Unknown Verified 04/24/23 20:41 ziprasidone HCl [From Geodon] Allergy Extrapyramidal Verified 04/24/23 20:41 Symptoms ciprofloxacin [From Cipro] AdvReac Rash/Hives Verified 04/24/23 20:41 fluphenazine HCl AdvReac Extrapyramidal Verified 04/24/23 20:41 [From Prolixin] Symptoms haloperidol [From Haldol] AdvReac Extrapyramidal Verified 04/24/23 20:41 Symptoms Sulfa (Sulfonamide AdvReac Nausea & Verified 04/24/23 20:41 Antibiotics) Vomiting Review of Systems ROS Statement: Those systems with pertinent positive or pertinent negative responses have been documented in the HPI. ROS Other: All systems not noted in ROS Statement are negative. Past Medical History Past Medical History: Asthma, GERD/Reflux, Hyperlipidemia, Musculoskeletal D isorder, Neurologic Disorder, Osteoarthritis (OA), Seizure Disorder Additional Past Medical History / Comment(s): RSD-DERIC FEET, INTERSTITIAL CYSTITIS, BRONCHITIS, HEMORRHOIDS,MIGRAINES, INSOMNIA. VERTIGO, last seizure 4 years ago, complex regional pain syndrome, RLS. History of Any Multi-Drug Resistant Organisms: MRSA Date of last positivie culture/infection: 04/20/15 MDRO Source:: Left Axilla Past Surgical History: Adenoidectomy, Back Surgery, Cholecystectomy, Orthopedic Surgery, Tonsillectomy Additional Past Surgical History / Comment(s): bilateral foot surgery d/t rsd, numerous pain clinic procedures, nerve stimulator in back to tx RSD placed in Nov 11 2015, pain pump placement, replacement of stimulator 06/2021 Past Anesthesia/Blood Transfusion Reactions: Previous Problems w/ Anesthesia Additional Past Anesthesia/Blood Transfusion Reaction / Comment(s): Pt recieved blood when she was 2 yrs old after tonsillectomy. WHEN BABY HEART STOPPED TWICE- PT STATED SHE WAS ALLERGIC TO ETHER. Past Psychological History: Anxiety, Bipolar, Depression, PTSD Smoking Status: Never smoker Past Alcohol Use History: None Reported Past Drug Use History: Marijuana - Past Family History Father History Unknown: Yes Family Medical History: Diabetes Mellitus Mother Family Medical History: Cancer, CVA/TIA, Diabetes Mellitus, Myocardial Infarction ([place]) Additional Family Medical History / Comment(s): Mother has had 5 CVAs, 3 MIs and UTERINE CANCER General Exam Limitations: no limitations General appearance: alert, in no apparent distress Head exam: Present: atraumatic, normocephalic, normal inspection Eye exam: Present: normal appearance, PERRL, EOMI. Absent: scleral icterus, conjunctival injection, periorbital swelling ENT exam: Present: normal exam, mucous membranes moist Neck exam: Present: normal inspection. Absent: tenderness, meningismus, lymphadenopathy Respiratory exam: Present: normal lung sounds bilaterally. Absent: respiratory distress, wheezes, rales, rhonchi, stridor Cardiovascular Exam: Present: regular rate, normal rhythm, normal heart sounds. Absent: systolic murmur, diastolic murmur, rubs, gallop, clicks GI/Abdominal exam: Present: soft, normal bowel sounds. Absent: distended, tenderness, guarding, rebound, rigid Extremities exam: Present: normal inspection, full ROM, normal capillary refill. Absent: tenderness, pedal edema, joint swelling, calf tenderness Back exam: Present: normal inspection Neurological exam: Present: alert, oriented X3, CN II-XII intact Psychiatric exam: Present: normal affect, normal mood Skin exam: Present: warm, dry, intact, normal color. Absent: rash Course Vital Signs 04/21/23 04/21/23 15:58 18:30 Temperature 97.5 F L Pulse Rate 100 76 Respiratory 20 18 Rate Blood Pressure 115/75 122/98 O2 Sat by Pulse 99 98 Oximetry - Reevaluation(s) Reevaluation #1: 04/21/23 16:52 Medical record is reviewed Reevaluation #2: 04/21/23 16:52 Patient symptoms are improved Reevaluation #3: 04/21/23 16:52 Patient informed of results and questions answered Reevaluation #4: 04/21/23 16:52 Was pt. sent in by a medical professional or institution (, PA, TRAFFIC OFFICER, urgent care, hospital, or long-term...) When possible be specific @ -no Did you speak to anyone other than the patient for history (EMS, parent, family, police, friend...)? What history was obtained from this source @ -no Did you review nursing and triage notes (agree or disagree)? Why? @ -agree Are old charts reviewed (outside hosp., previous admission, EMS record, old EKG, old radiological studies, urgent care reports/EKG's, long-term records)? Report findings @ -yes Differential Diagnosis (chest pain, altered mental status, abdominal pain women, abdominal pain men, vaginal bleeding, weakness, fever, dyspnea, syncope, headache, dizziness, GI bleed, back pain, seizure, CVA, palpatations, mental health, musculoskeletal)? @ -prior EKG interpreted by me (3pts min.). @ -no X-rays interpreted by me (1pt min.). @ -no CT interpreted by me (1pt min.). @ -no U/S interpreted by me (1pt. min.). @ -no What testing was considered but not performed or refused? (CT, X-rays, U/S, labs)? Why? @ -none What meds were considered but not given or refused? Why? @ -none Did you discuss the management of the patient with other professionals (professionals i.e. , PA, TRAFFIC OFFICER, lab, RT, psych nurse, forensic social worker, manager welding, teacher, staff mine warfare officer, field nurse case manager)? Give summary @ -no Was smoking cessation discussed for >3mins.? @ -no Were there social determinants of health that impacted care today? How? (Homelessness, low income, unemployed, alcoholism, drug addiction, trans portation, low edu. Level, literacy, decrease access to med. care, halfway, rehab)? @ -none Was there de-escalation of care discussed even if they declined (Discuss DNR or withdrawal of care, Hospice)? DNR status @ -no What co-morbidities impacted this encounter? (DM, HTN, Smoking, COPD, CAD, Cancer, CVA, ARF, Chemo, Hep., AIDS, mental health diagnosis, sleep apnea, morbid obesity)? @ -none Was patient admitted / discharged? Hospital course, mention meds given and route, prescriptions, significant lab abnormalities, going to OR and other pertinent info. @ -37 female to ER for evaluation of chronic pain with failure of chronic pain control. Patient's symptoms improved here in the ER and she can be discharged home Discharge Was critical care preformed (if so, how long)? @ -no Undiagnosed new problem with uncertain prognosis? @ -no Drug Therapy requiring intensive monitoring for toxicity (Heparin, Nitro, Insulin, Cardizem)? @ -no Were any procedures done? @ -no Diagnosis/symptom? @ -Chronic pain Acute, or Chronic, or Acute on Chronic? @ -Acute Uncomplicated (without systemic symptoms) or Complicated (systemic symptoms)? @ -Complicated Side effects of treatment? @ -no Exacerbation, Progression, or Severe Exacerbation? @ -exacerbation Poses a threat to life or bodily function? How? (Chest pain, [place], [place], pneumonia, PE, COPD, DKA, ARF, appy, cholecystitis, CVA, Diverticulitis, Homicidal, Suicidal, threat to staff... and all critical care pts) @ -yes patient does have significant difficult to control pain substance abuse Medical Decision Making - Medical Decision Making 37 female is well-known to emergency department presents today for evaluation right pain. Patient's pain is improved here in the ER the point of tolerance. Patient can be discharged home Disposition Clinical Impression: Chronic pain, Chronic pain syndrome Disposition: HOME SELF-CARE Condition: Fair Instructions (If sedation given, give patient instructions): Chronic Pain (ED) Is patient prescribed a controlled substance at d/c from ED?: No Referrals: None,Stated [Primary Care Provider] - 1-2 days Time of Disposition: 17:00
[2023-04-21 18:45] VITALS: BP 122/98; PULSE 76; RESP 18
== END 2023-04-21 18:36 | disposition home or self-care (01) ==
LOC: EC 15:56
DX: G89.29 Other chronic pain (principal); M79.604 Pain in right leg; M79.605 Pain in left leg; J45.909 Unspecified asthma, uncomplicated; F41.9 Anxiety disorder, unspecified; F31.9 Bipolar disorder, unspecified; K21.9 Gastro-esophageal reflux disease without esophagitis; F12.90 Cannabis use, unspecified, uncomplicated; Z79.899 Other long term (current) drug therapy; Z79.51 Long term (current) use of inhaled steroids
CPT/HCPCS: 99284; 96372; J1170

== ENCOUNTER 2023-04-24 19:57 | Emergency (ER) | payer MEDICARE, OTHER ==
--- NOTE | 2023-04-24 20:04 | ED ---
Head Injury HPI - General Source: patient, RN notes reviewed Mode of arrival: ambulatory Limitations: no limitations - History of Present Illness MD Complaint: head injury <Susy Acuna - Last Filed: 04/24/23 20:07> <Kieran George - Last Filed: 04/25/23 05:15> - General Chief complaint: Head Injury Stated complaint: fall-head injury Time Seen by Provider: 04/24/23 20:00 - History of Present Illness Initial comments: This is a 37 year old female who presents to the emergency department for a head injury. States that she has bad legs and falls frequently. Tonight when she fell she hit her head and she cannot get the pain under control with her typical medication. (Susy Acuna) 37-year-old female presenting with chief complaint of headache. Patient states that she had a trip and fall earlier today, when her legs were tangled in her blanket, causin her to hit her forehead on a metal door. No nausea or vomiting. No numbness, tingling, weakness. No dizziness. No neck pain. No loss of vision. No clear discharge from nose or ears. No chest pain or difficulty breathing. No obvious deformity. (Kieran George) - Related Data Home Medications Medication Instructions Recorded Confirmed Medroxyprogesterone Acetate 150 mg IM Q84D 11/22/13 10/07/20 [Depo-Provera] rOPINIRole HCL [Requip] 1 mg PO BID@0900,1200 11/22/13 10/07/20 Pentosan Polysulfate Sodium 100 mg PO DAILY 02/10/15 10/07/20 [Elmiron] HYDROcodone/APAP 7.5-325MG [[place] 1 tab PO BID 07/20/16 10/07/20 7.5-325] Paliperidone IM Pt Own [Invega 117 mg IM Q28D 07/20/16 10/07/20 Sustenna] amantadine HCL [Symmetrel] 100 mg PO BID 11/21/16 10/07/20 Albuterol Sulfate [Proair Hfa] 2 puff INHALATION RT-QID PRN 01/13/18 10/07/20 Butalb/Acetaminophen/Caffeine 1 tab PO Q8H PRN 01/13/18 10/07/20 [Fioricet 50-325-40] Fluticasone Propionate [Flovent 1 puff INHALATION RT-BID 01/13/18 10/07/20 Hfa 110 mcg] gemfibroziL [Lopid] 600 mg PO BID 01/13/18 10/07/20 Gabapentin [Neurontin] 300 mg PO TID 03/11/18 10/07/20 Gabapentin [Neurontin] 600 mg PO TID 09/16/19 10/07/20 Omeprazole [PriLOSEC] 40 mg PO DAILY 09/16/19 10/07/20 rOPINIRole HCL [Requip] 2 mg PO HS 09/16/19 10/07/20 traZODone HCL 300 mg PO HS 09/16/19 10/07/20 hydrOXYzine pamoate [hydrOXYzine 25 mg PO BID 04/13/20 10/07/20 PAMOATE] Cyclobenzaprine [Flexeril] 10 mg PO TID PRN 08/16/20 10/07/20 Fentanyl/Bupivcaine Pain Pump 1 dose INTRATHECA CONTINUOUS 08/16/20 10/07/20 Ibuprofen [Motrin] 600 mg PO TID PRN 10/07/20 10/07/20 diphenhydrAMINE [Benadryl] 50 mg PO DAILY PRN 10/07/20 10/07/20 Previous Rx's Medication Instructions Recorded Erythromycin Ophth Oint [Romycin 1 applic RIGHT EYE QID #1 bottle 10/03/20 Ophth Oint] Ondansetron Odt [Zofran Odt] 4 mg PO Q8HR PRN #14 tab 10/16/20 Ondansetron Odt [Zofran Odt] 4 mg PO Q8HR PRN #10 tab 06/21/21 predniSONE [Deltasone] 20 mg PO BID #10 tab 09/08/21 Cephalexin [Keflex] 500 mg PO Q8HR 7 Days #21 cap 11/25/21 Fluconazole [Diflucan] 150 mg PO ONCE #1 tab 11/25/21 Allergies/Adverse reactions: Allergies Allergy/AdvReac Type Severity Reaction Status Date / Time azithromycin Allergy Rash/Hives Verified 04/24/23 20:41 [From Zithromax Z-Mehrdad] cimetidine [From Tagamet] Allergy Rash/Hives Verified 04/24/23 20:41 codeine Allergy Nausea & Verified 04/24/23 20:41 Vomiting ether [Ether] Allergy Anaphylaxis Verified 04/24/23 20:41 Fish Containing Products Allergy Anaphylaxis Verified 04/24/23 20:41 [Fish] ibuprofen [From Motrin] Allergy Rash/Hives Verified 04/24/23 20:41 morphine Allergy Unknown Verified 04/24/23 20:41 ziprasidone HCl [From Geodon] Allergy Extrapyramidal Verified 04/24/23 20:41 Symptoms ciprofloxacin [From Cipro] AdvReac Rash/Hives Verified 04/24/23 20:41 fluphenazine HCl AdvReac Extrapyramidal Verified 04/24/23 20:41 [From Prolixin] Symptoms haloperidol [From Haldol] AdvReac Extrapyramidal Verified 04/24/23 20:41 Symptoms Sulfa (Sulfonamide AdvReac Nausea & Verified 04/24/23 20:41 Antibiotics) Vomiting Review of Systems ROS Other: All systems not noted in ROS Statement are negative. <Susy Acuna - Last Filed: 04/24/23 20:07> ROS Other: All systems not noted in ROS Statement are negative. <Kieran George - Last Filed: 04/25/23 05:15> ROS Statement: Those systems with pertinent positive or pertinent negative responses have been documented in the HPI. Past Medical History Past Medical History: Asthma, GERD/Reflux, Hyperlipidemia, Musculoskeletal Disorder, Neurologic Disorder, Osteoarthritis (OA), Seizure Disorder Additional Past Medical History / Comment(s): RSD-DERIC FEET, INTERSTITIAL CYSTITIS, BRONCHITIS, HEMORRHOIDS,MIGRAINES, INSOMNIA. VERTIGO, last seizure 4 years ago, complex regional pain syndrome, RLS. History of Any Multi-Drug Resistant Organisms: MRSA Date of last positivie culture/infection: 04/20/15 MDRO Source:: Left Axilla Past Surgical History: Adenoidectomy, Back Surgery, Cholecystectomy, Orthopedic Surgery, Tonsillectomy Additional Past Surgical History / Comment(s): bilateral foot surgery d/t rsd, numerous pain clinic procedures, nerve stimulator in back to tx RSD placed in Nov 11 2015, pain pump placement, replacement of stimulator 06/2021 Past Anesthesia/Blood Transfusion Reactions: Previous Problems w/ Anesthesia Additional Past Anesthesia/Blood Transfusion Reaction / Comment(s): Pt recieved blood when she was 2 yrs old after tonsillectomy. WHEN BABY HEART STOPPED TWICE- PT STATED SHE WAS ALLERGIC TO ETHER. Past Psychological History: Anxiety, Bipolar, Depression, PTSD Smoking Status: Never smoker Past Alcohol Use History: None Reported Past Drug Use History: Marijuana - Past Family History Father History Unknown: Yes Family Medical History: Diabetes Mellitus Mother Family Medical History: Cancer, CVA/TIA, Diabetes Mellitus, Myocardial Infarction ([place]) Additional Family Medical History / Comment(s): Mother has had 5 CVAs, 3 MIs and UTERINE CANCER <Susy Acuna - Last Filed: 04/24/23 20:07> General Exam <Susy Acuna - Last Filed: 04/24/23 20:07> Limitations: no limitations General appearance: alert, in no apparent distress Head exam: Present: atraumatic, normocephalic Eye exam: Present: normal appearance, PERRL, EOMI. Absent: periorbital swelling Pupils: Present: normal accommodation Neck exam: Present: normal inspection. Absent: tenderness Respiratory exam: Present: normal lung sounds bilaterally. Absent: respiratory distress, wheezes, rales, rhonchi, stridor Cardiovascular Exam: Present: normal rhythm, tachycardia, normal heart sounds. Absent: systolic murmur, diastolic murmur, rubs, gallop, clicks Neurological exam: Present: alert, oriented X3 Expanded Patient oriented to: Present: person, place, time Speech: Present: fluid speech Cranial nerves: EOM's Intact: Normal Cerebellar function: Finger to Nose: Normal Eye Response: (4) open spontaneously Motor Response: (6) obeys commands Verbal Response: (5) oriented [place] Total: 15 Psychiatric exam: Present: normal affect, normal mood Skin exam: Present: warm, dry <Kieran George - Last Filed: 04/25/23 05:15> - General Exam Comments Initial Comments: Visual Physical Exam Vital signs reviewed General: Well-appearing, nontoxic, no acute distress. Head: Normocephalic, atraumatic Eyes: PERRLA, EOMI ENT: Airway patent Chest: Nonlabored breathing Skin: No visual rash, normal skin tone Neuro: Alert and oriented 3 Musculoskeletal: No gross abnormalities (Susy Acuna) Course Vital Signs 04/24/23 04/24/23 04/24/23 20:05 21:06 23:23 Temperature 98.1 F 97.9 F 98.5 F Pulse Rate 114 H 107 H 119 H Respiratory 16 22 22 Rate Blood Pressure 144/90 120/89 134/88 O2 Sat by Pulse 97 96 Oximetry Medical Decision Making <Susy Acuna - Last Filed: 04/24/23 20:07> <Kieran George - Last Filed: 04/25/23 05:15> - Medical Decision Making I performed the QuickNote portion of this chart. Signed Susy Acuna PA-C. (Susy Acuna) Was pt. sent in by a medical professional or institution ([facility], [facility], urgent care, hospital, or residential...) When possible be specific @ -No Did you speak to anyone other than the patient for history (EMS, parent, family, police, friend...)? What history was obtained from this source @ -No Did you review nursing and triage notes (agree or disagree)? Why? @ -I reviewed and agree with nursing and triage notes Were old charts reviewed (outside hosp., previous admission, EMS record, old EKG, old radiological studies, urgent care reports/EKG's, residential records)? Report findings @ -No old charts were reviewed Differential Diagnosis (chest pain, altered mental status, abdominal pain women, abdominal pain men, vaginal bleeding, weakness, fever, dyspnea, syncope, headache, dizziness, GI bleed, back pain, seizure, CVA, palpatations, mental health, musculoskeletal)? @ -MDM Differential Headache: Migraine, tension, cluster, carbon monoxide, central venous thrombosis, pension karma temporal arteritis, acute closure glaucoma, intercranial hemorrhage, mastoiditis, sinusitis, head injury this is not meant to be an all-inclusive list. EKG interpreted by me (3pts min.). @ -As above X-rays interpreted by me (1pt min.). @ -None done CT interpreted by me (1pt min.). @ -None done U/S interpreted by me (1pt. min.). @ -None done What testing was considered but not performed or refused? (CT, X-rays, U/S, labs)? Why? @ -None What meds were considered but not given or refused? Why? @ -None Did you discuss the management of the patient with other professionals (professionals i.e. DrBen, PA, [employer], lab, RT, psych nurse, social research assistant, dinkey motor operator, teacher, district resource officer, wrapper caser)? Give summary @ -No Was smoking cessation discussed for >3mins.? @ -No Was critical care preformed (if so, how long)? @ -No Were there social determinants of health that impacted care today? How? (Homelessness, low income, unemployed, alcoholism, drug addiction, transportation, low edu. Level, literacy, decrease access to med. care, [place] [facility], rehab)? @ -No Was there de-escalation of care discussed even if they declined (Discuss DNR or withdrawal of care, Hospice)? DNR status @ -No What co-morbidities impacted this encounter? (DM, HTN, Smoking, COPD, CAD, Cancer, CVA, ARF, Chemo, Hep., AIDS, mental health diagnosis, sleep apnea, morbid obesity)? @ -None Was patient admitted / discharged? Hospital course, mention meds given and route, prescriptions, significant lab abnormalities, going to OR and other pertinent info. @ -37-year-old female presenting with chief complaint of head injury. She tripped and hit her head on a metal door today. No loss of consciousness or blood thinners. History and physical exam were conducted, GCS is 15 and no noted neurological deficits. Patient is given pain medication and on reassessment she reports resolution of her symptoms. Discharged home. Educated on alarms symptoms. Follow-up with PCP. Report back to ER with any new or worsening symptoms. Discussed return parameters and answered all questions. Patient conveyed verbal understanding and agreed to the plan. I discussed this case in detail with my attending Dr. Mario Undiagnosed new problem with uncertain prognosis? @ -No Drug Therapy requiring intensive monitoring for toxicity (Heparin, Nitro, Insulin, Cardizem)? @ -No Were any procedures done? @ -No Diagnosis/symptom? @ -Minor closed head injury Acute, or Chronic, or Acute on Chronic? @ -Acute Uncomplicated (without systemic symptoms) or Complicated (systemic symptoms)? @ -Uncomplicated Side effects of treatment? @ -No Exacerbation, Progression, or Severe Exacerbation? @ -No Poses a threat to life or bodily function? How? (Chest pain, [place], [place], pneumonia, PE, COPD, DKA, ARF, appy, cholecystitis, CVA, Diverticulitis, Homicidal, Suicidal, threat to staff... and all critical care pts) @ -No (Kieran George) Disposition <Susy Acuna - Last Filed: 04/24/23 20:07> Is patient prescribed a controlled substance at d/c from ED?: No Time of Disposition: 22:44 <Kieran George - Last Filed: 04/25/23 05:15> Clinical Impression: Minor closed head injury Disposition: HOME SELF-CARE Condition: Good Instructions (If sedation given, give patient instructions): Head Injury (ED) Additional Instructions: Follow-up with PCP. Report back to ER if any new or worsening symptoms. Referrals: None,Stated [Primary Care Provider] - 1-2 days
[2023-04-24 21:24] VITALS: RESP 22
[2023-04-24] MEDS: HYDROmorphone 1 MG/ML 1 ML SYRINGE IM STA ×2 (22:12→22:19)
[2023-04-24] MEDS ORDERED: HYDROmorphone 1 MG/ML 1 ML SYRINGE IVP STA (22:17)
[2023-04-24 23:41] VITALS: BP 134/88; PULSE 119; TEMP 98.5
== END 2023-04-24 23:26 | disposition home or self-care (01) ==
LOC: EC 19:57
DX: S09.90XA Unspecified injury of head, initial encounter (principal); R00.0 Tachycardia, unspecified; J45.909 Unspecified asthma, uncomplicated; K21.9 Gastro-esophageal reflux disease without esophagitis; E78.5 Hyperlipidemia, unspecified; F31.9 Bipolar disorder, unspecified; F41.9 Anxiety disorder, unspecified; G40.909 Epilepsy, unspecified, not intractable, without status epilepticus; F12.90 Cannabis use, unspecified, uncomplicated; Z79.51 Long term (current) use of inhaled steroids; Z79.899 Other long term (current) drug therapy; Z88.6 Allergy status to analgesic agent; Z88.1 Allergy status to other antibiotic agents; Z88.5 Allergy status to narcotic agent; Z91.013 Allergy to seafood; Z88.8 Allergy status to other drugs, medicaments and biological substances; Z88.2 Allergy status to sulfonamides; Z91.09 Other allergy status, other than to drugs and biological substances; Z90.49 Acquired absence of other specified parts of digestive tract; W01.198A Fall on same level from slipping, tripping and stumbling with subsequent striking against other object, initial encounter
CPT/HCPCS: 99283; 96374; J1170

== ENCOUNTER 2023-05-02 01:18 | Emergency (ER) | payer MEDICARE, OTHER ==
[2023-05-02 02:09] VITALS: BP 125/78; PULSE 100; RESP 18; TEMP 97.6
[2023-05-02] MEDS ORDERED: AMOXIC-POT CLAV 875-125MG 1 EACH TAB PO STA (02:24)
[2023-05-02] MEDS ORDERED: diphenhydrAMINE 50 MG/ML 1 ML VIAL IM STA (02:24)
[2023-05-02] MEDS ORDERED: DIPH,PERTUS(ACELL)TETVAC-LF 0.5 ML VIAL IM ONE (02:24)
[2023-05-02] MEDS ORDERED: KETOROLAC 15 MG/ML 1 ML VIAL IM STA (02:24)
--- NOTE | 2023-05-02 02:33 | ED ---
Animal Bite HPI - General Chief Complaint: Animal Bite Stated Complaint: Leg pain animal bite Time Seen by Provider: 05/02/23 01:56 Source: patient Mode of arrival: ambulatory Limitations: no limitations - History of Present Illness Initial Comments: 37-year-old female presenting with chief complaint of cat bite. She states that her neighbors cat bit and scratched her this evening on the left forearm. Bleeding is well-controlled at this time. Patient states that she immediately washed the area with soap and water. Last tetanus unknown. Patient is also complaining of bilateral lower leg pain, this is chronic for this patient. She notes no changes from her usual chronic pain flareups. No new injury or trauma to the legs. No numbness tingling or weakness. No discoloration or swelling. - Related Data Home Medications Medication Instructions Recorded Confirmed Medroxyprogesterone Acetate 150 mg IM Q84D 11/22/13 10/07/20 [Depo-Provera] rOPINIRole HCL [Requip] 1 mg PO BID@0900,1200 11/22/13 10/07/20 Pentosan Polysulfate Sodium 100 mg PO DAILY 02/10/15 10/07/20 [Elmiron] HYDROcodone/APAP 7.5-325MG [[place] 1 tab PO BID 07/20/16 10/07/20 7.5-325] Paliperidone IM Pt Own [Invega 117 mg IM Q28D 07/20/16 10/07/20 Sustenna] amantadine HCL [Symmetrel] 100 mg PO BID 11/21/16 10/07/20 Albuterol Sulfate [Proair Hfa] 2 puff INHALATION RT-QID PRN 01/13/18 10/07/20 Butalb/Acetaminophen/Caffeine 1 tab PO Q8H PRN 01/13/18 10/07/20 [Fioricet 50-325-40] Fluticasone Propionate [Flovent 1 puff INHALATION RT-BID 01/13/18 10/07/20 Hfa 110 mcg] gemfibroziL [Lopid] 600 mg PO BID 01/13/18 10/07/20 Gabapentin [Neurontin] 300 mg PO TID 03/11/18 10/07/20 Gabapentin [Neurontin] 600 mg PO TID 09/16/19 10/07/20 Omeprazole [PriLOSEC] 40 mg PO DAILY 09/16/19 10/07/20 rOPINIRole HCL [Requip] 2 mg PO HS 09/16/19 10/07/20 traZODone HCL 300 mg PO HS 09/16/19 10/07/20 hydrOXYzine pamoate 25 mg PO BID 04/13/20 10/07/20 Cyclobenzaprine [Flexeril] 10 mg PO TID PRN 08/16/20 10/07/20 Fentanyl/Bupivcaine Pain Pump 1 dose INTRATHECA CONTINUOUS 08/16/20 10/07/20 Ibuprofen [Motrin] 600 mg PO TID PRN 10/07/20 10/07/20 diphenhydrAMINE [Benadryl] 50 mg PO DAILY PRN 10/07/20 10/07/20 Previous Rx's Medication Instructions Recorded Erythromycin Ophth Oint [Romycin 1 applic RIGHT EYE QID #1 bottle 10/03/20 Ophth Oint] Ondansetron Odt [Zofran Odt] 4 mg PO Q8HR PRN #14 tab 10/16/20 Ondansetron Odt [Zofran Odt] 4 mg PO Q8HR PRN #10 tab 06/21/21 predniSONE [Deltasone] 20 mg PO BID #10 tab 09/08/21 Cephalexin [Keflex] 500 mg PO Q8HR 7 Days #21 cap 11/25/21 Fluconazole [Diflucan] 150 mg PO ONCE #1 tab 11/25/21 Amoxic-Pot Clav 875-125Mg 1 tab PO Q12HR 7 Days #14 tab 05/02/23 [Augmentin 875-125] Allergies Allergy/AdvReac Type Severity Reaction Status Date / Time azithromycin Allergy Rash/Hives Verified 05/02/23 01:53 [From Zithromax Z-Mehrdad] cimetidine [From Tagamet] Allergy Rash/Hives Verified 05/02/23 01:53 codeine Allergy Nausea & Verified 05/02/23 01:53 Vomiting ether [Ether] Allergy Anaphylaxis Verified 05/02/23 01:53 Fish Containing Products Allergy Anaphylaxis Verified 05/02/23 01:53 [Fish] ibuprofen [From Motrin] Allergy Rash/Hives Verified 05/02/23 01:53 morphine Allergy Unknown Verified 05/02/23 01:53 ziprasidone HCl [From Geodon] Allergy Extrapyramidal Verified 05/02/23 01:53 Symptoms ciprofloxacin [From Cipro] AdvReac Rash/Hives Verified 05/02/23 01:53 fluphenazine HCl AdvReac Extrapyramidal Verified 05/02/23 01:53 [From Prolixin] Symptoms haloperidol [From Haldol] AdvReac Extrapyramidal Verified 05/02/23 01:53 Symptoms Sulfa (Sulfonamide AdvReac Nausea & Verified 05/02/23 01:53 Antibiotics) Vomiting Review of Systems ROS Statement: Those systems with pertinent positive or pertinent negative responses have been documented in the HPI. ROS Other: All systems not noted in ROS Statement are negative. Past Medical History Past Medical History: Asthma, GERD/Reflux, Hyperlipidemia, Musculoskeletal Disorder, Neurologic Disorder, Osteoarthritis (OA), Seizure Disorder Additional Past Medical History / Comment(s): RSD-DERIC FEET, INTERSTITIAL CYSTITIS, BRONCHITIS, HEMORRHOIDS,MIGRAINES, INSOMNIA. VERTIGO, last seizure 4 years ago, complex regional pain syndrome, RLS. History of Any Multi-Drug Resistant Organisms: MRSA Date of last positivie culture/infection: 04/20/15 MDRO Source:: Left Axilla Past Surgical History: Adenoidectomy, Back Surgery, Cholecystectomy, Orthopedic Surgery, Tonsillectomy Additional Past Surgical History / Comment(s): bilateral foot surgery d/t rsd, numerous pain clinic procedures, nerve stimulator in back to tx RSD placed in Nov 11 2015, pain pump placement, replacement of stimulator 06/2021 Past Anesthesia/Blood Transfusion Reactions: Previous Problems w/ Anesthesia Additional Past Anesthesia/Blood Transfusion Reaction / Comment(s): Pt recieved blood when she was 2 yrs old after tonsillectomy. WHEN BABY HEART STOPPED TWICE- PT STATED SHE WAS ALLERGIC TO ETHER. Past Psychological History: Anxiety, Bipolar, Depression, PTSD Smoking Status: Never smoker Past Alcohol Use History: None Reported Past Drug Use History: Marijuana - Past Family History Father History Unknown: Yes Family Medical History: Diabetes Mellitus Mother Family Medical History: Cancer, CVA/TIA, Diabetes Mellitus, Myocardial Infarction ([place]) Additional Family Medical History / Comment(s): Mother has had 5 CVAs, 3 MIs and UTERINE CANCER General Exam Limitations: no limitations General appearance: alert, in no apparent distress Head exam: Present: atraumatic, normocephalic Eye exam: Present: normal appearance, EOMI Neck exam: Present: normal inspection Respiratory exam: Absent: respiratory distress Cardiovascular Exam: Present: regular rate Extremities exam: Present: full ROM, normal capillary refill Neurological exam: Present: alert, oriented X3 Psychiatric exam: Present: normal affect, normal mood Skin exam: Present: abrasion (Patient has several puncture wounds and scratches due to cat bites to the left forearm) Course Vital Signs 05/02/23 01:49 Temperature 97.6 F Pulse Rate 100 Respiratory 18 Rate Blood Pressure 125/78 O2 Sat by Pulse 97 Oximetry Medical Decision Making - Medical Decision Making Was pt. sent in by a medical professional or institution (, PA, SURGICAL CONSULTANT, urgent care, hospital, or retirement...) When possible be specific @ -No Did you speak to anyone other than the patient for history (EMS, parent, family, police, friend...)? What history was obtained from this source @ -No Did you review nursing and triage notes (agree or disagree)? Why? @ -I reviewed and agree with nursing and triage notes Were old charts reviewed (outside hosp., previous admission, EMS record, old EKG, old radiological studies, urgent care reports/EKG's, retirement records)? Report findings @ -No old charts were reviewed Differential Diagnosis (chest pain, altered mental status, abdominal pain women, abdominal pain men, vaginal bleeding, weakness, fever, dyspnea, syncope, headache, dizziness, GI bleed, back pain, seizure, CVA, palpatations, mental health, musculoskeletal)? @ -Differential Musculoskeletal Muscular strain, contusion, ligament sprain, fracture, arthritis, septic arthritis, bursitis, cellulitis, muscle spasm, nerve compression, DVT, arterial occlusion, herpes zoster, electrolyte abnormality, tumor.... This is not meant to be in all inclusive list EKG interpreted by me (3pts min.). @ -As above X-rays interpreted by me (1pt min.). @ -None done CT interpreted by me (1pt min.). @ -None done U/S interpreted by me (1pt. min.). @ -None done What testing was considered but not performed or refused? (CT, X-rays, U/S, labs)? Why? @ -None What meds were considered but not given or refused? Why? @ -None Did you discuss the management of the patient with other professionals (professionals i.e. DrBen, PA, SURGICAL CONSULTANT, lab, RT, psych nurse, social security specialist, knitter helper, teacher, house officer, continuous pillowcase cutter)? Give summary @ -No Was smoking cessation discussed for >3mins.? @ -No Was critical care preformed (if so, how long)? @ -No Were there social determinants of health that impacted care today? How? (Homelessness, low income, unemployed, alcoholism, drug addiction, transportati on, low edu. Level, literacy, decrease access to med. care, care home, rehab)? @ -No Was there de-escalation of care discussed even if they declined (Discuss DNR or withdrawal of care, Hospice)? DNR status @ -No What co-morbidities impacted this encounter? (DM, HTN, Smoking, COPD, CAD, Cancer, CVA, ARF, Chemo, Hep., AIDS, mental health diagnosis, sleep apnea, morbid obesity)? @ -None Was patient admitted / discharged? Hospital course, mention meds given and route, prescriptions, significant lab abnormalities, going to OR and other pertinent info. @ -37-year-old female presented with chief complaint of cat bite. She was bit by her neighbors cat this evening on the left forearm. She is also complaining of flareup of her chronic bilateral lower leg pain. She has no changes to this chronic pain and no new injuries or trauma to the legs. Her tetanus is updated. Wounds are inspected, several scratches and puncture wounds are noted to the left forearm, bleeding is well-controlled. She is started on Augmentin. She is provided with pain medication. Discharged home. Follow-up with PCP. Report back to ER with any new or worsening symptoms. Discussed return parameters and answered all questions. Patient conveyed verbal understanding and agreed to the plan. I discussed this case in detail with my attending Dr. Castillo Undiagnosed new problem with uncertain prognosis? @ -No Drug Therapy requiring intensive monitoring for toxicity (Heparin, Nitro, Insulin, Cardizem)? @ -No Were any procedures done? @ -No Diagnosis/symptom? @ -Cat bite Acute, or Chronic, or Acute on Chronic? @ -Acute Uncomplicated (without systemic symptoms) or Complicated (systemic symptoms)? @ -Uncomplicated Side effects of treatment? @ -No Exacerbation, Progression, or Severe Exacerbation? @ -No Poses a threat to life or bodily function? How? (Chest pain, [place], [place], pneumonia, PE, COPD, DKA, ARF, appy, cholecystitis, CVA, Diverticulitis, Homicidal, Suicidal, threat to staff... and all critical care pts) @ -Low likelihood Diagnosis/symptom? @Leg pain Acute, or Chronic, or Acute on Chronic? @Acute on chronic Uncomplicated (without systemic symptoms) or Complicated (systemic symptoms)? @Uncomplicated Side effects of treatment? @None Exacerbation, Progression, or Severe Exacerbation] @No Poses a threat to life or bodily function? @No Disposition Clinical Impression: Cat bite Disposition: HOME SELF-CARE Condition: Good Instructions (If sedation given, give patient instructions): Animal Bite (ED) Prescriptions: Amoxic-Pot Clav 875-125Mg [Augmentin 875-125] 1 tab PO Q12HR 7 Days #14 tab Is patient prescribed a controlled substance at d/c from ED?: No Referrals: Lior Clemons MD [Primary Care Provider] - 1-2 days Time of Disposition: 02:33
== END 2023-05-02 03:06 | disposition home or self-care (01) ==
LOC: EC 01:18
DX: S51.852A Open bite of left forearm, initial encounter (principal); J45.909 Unspecified asthma, uncomplicated; K21.9 Gastro-esophageal reflux disease without esophagitis; M19.90 Unspecified osteoarthritis, unspecified site; F12.90 Cannabis use, unspecified, uncomplicated; Z79.51 Long term (current) use of inhaled steroids; Z79.1 Long term (current) use of non-steroidal anti-inflammatories (NSAID); Z79.899 Other long term (current) drug therapy; Z88.5 Allergy status to narcotic agent; Z91.013 Allergy to seafood; Z88.6 Allergy status to analgesic agent; Z88.8 Allergy status to other drugs, medicaments and biological substances; Z88.2 Allergy status to sulfonamides; Z86.59 Personal history of other mental and behavioral disorders; Z20.3 Contact with and (suspected) exposure to rabies; W55.01XA Bitten by cat, initial encounter
CPT/HCPCS: 99283 ×2; 96372 ×3; 90471 ×2; 90715; J1200; J1885

== ENCOUNTER 2023-05-06 12:23 | Emergency (ER) | payer MEDICARE, OTHER ==
[2023-05-06] MEDS ORDERED: HYDROmorphone 1 MG/ML 1 ML SYRINGE IM STA (12:51)
--- NOTE | 2023-05-06 12:52 | ED ---
Extremity Problem HPI - General Chief complaint: Extremity Problem,Nontraumatic Stated complaint: Legs Pain Time Seen by Provider: 05/06/23 12:34 Source: patient, RN notes reviewed Mode of arrival: ambulatory Limitations: no limitations - History of Present Illness Initial comments: 37-year-old female presents emergency department complaint of leg pain. This is chronic in nature states she had an acute exacerbation of her regional pain syndrome. Patient does have a pain pump and states nonfunctioning needs to have follow-up. Patient denies any trauma no other complaints. - Related Data Home Medications Medication Instructions Recorded Confirmed Medroxyprogesterone Acetate 150 mg IM Q84D 11/22/13 10/07/20 [Depo-Provera] rOPINIRole HCL [Requip] 1 mg PO BID@0900,1200 11/22/13 10/07/20 Pentosan Polysulfate Sodium 100 mg PO DAILY 02/10/15 10/07/20 [Elmiron] HYDROcodone/APAP 7.5-325MG [[place] 1 tab PO BID 07/20/16 10/07/20 7.5-325] Paliperidone IM Pt Own [Invega 117 mg IM Q28D 07/20/16 10/07/20 Sustenna] amantadine HCL [Symmetrel] 100 mg PO BID 11/21/16 10/07/20 Albuterol Sulfate [Proair Hfa] 2 puff INHALATION RT-QID PRN 01/13/18 10/07/20 Butalb/Acetaminophen/Caffeine 1 tab PO Q8H PRN 01/13/18 10/07/20 [Fioricet 50-325-40] Fluticasone Propionate [Flovent 1 puff INHALATION RT-BID 01/13/18 10/07/20 Hfa 110 mcg] gemfibroziL [Lopid] 600 mg PO BID 01/13/18 10/07/20 Gabapentin [Neurontin] 300 mg PO TID 03/11/18 10/07/20 Gabapentin [Neurontin] 600 mg PO TID 09/16/19 10/07/20 Omeprazole [PriLOSEC] 40 mg PO DAILY 09/16/19 10/07/20 rOPINIRole HCL [Requip] 2 mg PO HS 09/16/19 10/07/20 traZODone HCL 300 mg PO HS 09/16/19 10/07/20 hydrOXYzine pamoate 25 mg PO BID 04/13/20 10/07/20 Cyclobenzaprine [Flexeril] 10 mg PO TID PRN 08/16/20 10/07/20 Fentanyl/Bupivcaine Pain Pump 1 dose INTRATHECA CONTINUOUS 08/16/20 10/07/20 Ibuprofen [Motrin] 600 mg PO TID PRN 10/07/20 10/07/20 diphenhydrAMINE [Benadryl] 50 mg PO DAILY PRN 10/07/20 10/07/20 Previous Rx's Medication Instructions Recorded Erythromycin Ophth Oint [Romycin 1 applic RIGHT EYE QID #1 bottle 10/03/20 Ophth Oint] Ondansetron Odt [Zofran Odt] 4 mg PO Q8HR PRN #14 tab 10/16/20 Ondansetron Odt [Zofran Odt] 4 mg PO Q8HR PRN #10 tab 06/21/21 predniSONE [Deltasone] 20 mg PO BID #10 tab 09/08/21 Cephalexin [Keflex] 500 mg PO Q8HR 7 Days #21 cap 11/25/21 Fluconazole [Diflucan] 150 mg PO ONCE #1 tab 11/25/21 Amoxic-Pot Clav 875-125Mg 1 tab PO Q12HR 7 Days #14 tab 05/02/23 [Augmentin 875-125] Allergies Allergy/AdvReac Type Severity Reaction Status Date / Time azithromycin Allergy Rash/Hives Verified 05/06/23 12:26 [From Zithromax Z-Mehrdad] cimetidine [From Tagamet] Allergy Rash/Hives Verified 05/06/23 12:26 codeine Allergy Nausea & Verified 05/06/23 12:26 Vomiting ether [Ether] Allergy Anaphylaxis Verified 05/06/23 12:26 Fish Containing Products Allergy Anaphylaxis Verified 05/06/23 12:26 [Fish] ibuprofen [From Motrin] Allergy Rash/Hives Verified 05/06/23 12:26 morphine Allergy Unknown Verified 05/06/23 12:26 ziprasidone HCl [From Geodon] Allergy Extrapyramidal Verified 05/06/23 12:26 Symptoms ciprofloxacin [From Cipro] AdvReac Rash/Hives Verified 05/06/23 12:26 fluphenazine HCl AdvReac Extrapyramidal Verified 05/06/23 12:26 [From Prolixin] Symptoms haloperidol [From Haldol] AdvReac Extrapyramidal Verified 05/06/23 12:26 Symptoms Sulfa (Sulfonamide AdvReac Nausea & Verified 05/06/23 12:26 Antibiotics) Vomiting Review of Systems ROS Statement: Those systems with pertinent positive or pertinent negative responses have been documented in the HPI. ROS Other: All systems not noted in ROS Statement are negative. Past Medical History Past Medical History: Asthma, GERD/Reflux, Hyperlipidemia, Musculoskeletal Disorder, Neurologic Disorder, Osteoarthritis (OA), Seizure Disorder Additional Past Medical History / Comment(s): RSD-DERIC FEET, INTERSTITIAL CYSTITIS, BRONCHITIS, HEMORRHOIDS,MIGRAINES, INSOMNIA. VERTIGO, last seizure 4 years ago, complex regional pain syndrome, RLS. History of Any Multi-Drug Resistant Organisms: MRSA Date of last positivie culture/infection: 04/20/15 MDRO Source:: Left Axilla Past Surgical History: Adenoidectomy, Back Surgery, Cholecystectomy, Orthopedic Surgery, Tonsillectomy Additional Past Surgical History / Comment(s): bilateral foot surgery d/t rsd, numerous pain clinic procedures, nerve stimulator in back to tx RSD placed in Nov 11 2015, pain pump placement, replacement of stimulator 06/2021 Past Anesthesia/Blood Transfusion Reactions: Previous Problems w/ Anesthesia Additional Past Anesthesia/Blood Transfusion Reaction / Comment(s): Pt recieved blood when she was 2 yrs old after tonsillectomy. WHEN BABY HEART STOPPED TWICE- PT STATED SHE WAS ALLERGIC TO ETHER. Past Psychological History: Anxiety, Bipolar, Depression, PTSD Smoking Status: Never smoker Past Alcohol Use History: None Reported Past Drug Use History: Marijuana - Past Family History Father History Unknown: Yes Family Medical History: Diabetes Mellitus Mother Family Medical History: Cancer, CVA/TIA, Diabetes Mellitus, Myocardial Infarction ([place]) Additional Family Medical History / Comment(s): Mother has had 5 CVAs, 3 MIs and UTERINE CANCER General Exam Limitations: no limitations General appearance: alert, in no apparent distress Head exam: Present: atraumatic, normocephalic, normal inspection Eye exam: Present: normal appearance, PERRL, EOMI. Absent: scleral icterus, conjunctival injection, periorbital swelling Respiratory exam: Present: normal lung sounds bilaterally. Absent: respiratory distress, wheezes, rales, rhonchi, stridor Extremities exam: Present: normal inspection, full ROM, normal capillary refill. Absent: tenderness, pedal edema, joint swelling, calf tenderness Course Vital Signs 05/06/23 05/06/23 12:24 13:35 Temperature 98.2 F 98.4 F Pulse Rate 91 72 Respiratory 20 18 Rate Blood Pressure 97/63 135/68 O2 Sat by Pulse 99 98 Oximetry Medical Decision Making - Medical Decision Making Was pt. sent in by a medical professional or institution ([facility] [employer], [employer], urgent care, hospital, or senior living...) When possible be specific @ -No Did you speak to anyone other than the patient for history (EMS, parent, family, police, friend...)? What history was obtained from this source @ -No Did you review nursing and triage notes (agree or disagree)? Why? @ -I reviewed and agree with nursing and triage notes Were old charts reviewed (outside hosp., previous admission, EMS record, old EKG, old radiological studies, urgent care reports/EKG's, senior living records)? Report findings @ -Reviewed recent visits Differential Diagnosis (chest pain, altered mental status, abdominal pain women, abdominal pain men, vaginal bleeding, weakness, fever, dyspnea, syncope, headache, dizziness, GI bleed, back pain, seizure, CVA, palpatations, mental health, musculoskeletal)? @ -Chronic pain, leg pain EKG interpreted by me (3pts min.). @ -[None X-rays interpreted by me (1pt min.). @ -None done CT interpreted by me (1pt min.). @ -None done U/S interpreted by me (1pt. min.). @ -None done What testing was considered but not performed or refused? (CT, X-rays, U/S, labs)? Why? @ -None What meds were considered but not given or refused? Why? @ -None Did you discuss the management of the patient with other professionals (professionals i.e. [facility], [employer], lab, RT, psych nurse, nursing home social worker, port captain, teacher, cavalry officer, case briefer)? Give summary @ -No Was smoking cessation discussed for >3mins.? @ -No Was critical care preformed (if so, how long)? @ -No Were there social determinants of health that impacted care today? How? (Homelessness, low income, unemployed, alcoholism, drug addiction, transportation, low edu. Level, literacy, decrease access to med. care, residential, rehab)? @ -No Was there de-escalation of care discussed even if they declined (Discuss DNR or withdrawal of care, Hospice)? DNR status @ -No What co-morbidities impacted this encounter? (DM, HTN, Smoking, COPD, CAD, Cancer, CVA, ARF, Chemo, Hep., AIDS, mental health diagnosis, sleep apnea, morbid obesity)? @ -None Was patient admitted / discharged? Hospital course, mention meds given and route, prescriptions, significant lab abnormalities, going to OR and other pertinent info. @ -[Discharge patient has chronic pain syndrome patient was discharged in stable condition return as discussed. Undiagnosed new problem with uncertain prognosis? @ -No Drug Therapy requiring intensive monitoring for toxicity (Heparin, Nitro, Insulin, Cardizem)? @ -No Were any procedures done? @ -No Diagnosis/symptom? @ -[Chronic leg pain Acute, or Chronic, or Acute on Chronic? @ -Acute on chronic Uncomplicated (without systemic symptoms) or Complicated (systemic symptoms)? @ -[Uncomplicated Side effects of treatment? @ -[No Exacerbation, Progression, or Severe Exacerbation? @ -No Poses a threat to life or bodily function? How? (Chest pain, [place], [place], pneumonia, PE, COPD, DKA, ARF, appy, cholecystitis, CVA, Diverticulitis, Homicidal, Suicidal, threat to staff... and all critical care pts) @ -No Disposition Clinical Impression: Chronic pain Disposition: HOME SELF-CARE Condition: Stable Additional Instructions: Please return to the Emergency Department if symptoms worsen or any other concerns. Is patient prescribed a controlled substance at d/c from ED?: No Referrals: None,Stated [Primary Care Provider] - 1-2 days Time of Disposition: 12:53
[2023-05-06] MEDS ORDERED: KETOROLAC 15 MG/ML 1 ML VIAL IM STA (13:20)
[2023-05-06] MEDS ORDERED: diphenhydrAMINE 50 MG/ML 1 ML VIAL IM STA (13:21)
[2023-05-06 14:10] VITALS: BP 135/68; PULSE 72; RESP 18; TEMP 98.4
== END 2023-05-06 13:35 | disposition home or self-care (01) ==
LOC: EC 12:23
DX: G89.29 Other chronic pain (principal); M79.605 Pain in left leg; J45.909 Unspecified asthma, uncomplicated; K21.9 Gastro-esophageal reflux disease without esophagitis; M19.90 Unspecified osteoarthritis, unspecified site; F12.90 Cannabis use, unspecified, uncomplicated; Z86.59 Personal history of other mental and behavioral disorders; Z79.51 Long term (current) use of inhaled steroids; Z79.899 Other long term (current) drug therapy; Z79.1 Long term (current) use of non-steroidal anti-inflammatories (NSAID); Z88.2 Allergy status to sulfonamides; Z88.1 Allergy status to other antibiotic agents; Z88.8 Allergy status to other drugs, medicaments and biological substances; Z88.5 Allergy status to narcotic agent; Z88.6 Allergy status to analgesic agent; Z91.013 Allergy to seafood
CPT/HCPCS: 99283; 96372 ×3; J1200; J1170; J1885

== ENCOUNTER 2023-05-10 15:56 | Emergency (ER) | payer MEDICARE, OTHER ==
[2023-05-10 16:06] VITALS: BP 108/77; PULSE 85; RESP 20; TEMP 98.2
--- NOTE | 2023-05-10 16:13 | ED ---
Headache HPI - General Chief Complaint: Headache Stated Complaint: headache, pain in both legs Time Seen by Provider: 05/10/23 16:05 Source: RN notes reviewed, old records reviewed Mode of arrival: ambulatory Limitations: no limitations - History of Present Illness Initial Comments: This is a 37-year-old female to the ER for evaluation today. Patient presents today for evaluation of chronic pain and chronic leg pain headaches chronic nausea and vomiting. No new complaints MD Complaint: headache, "migraine", other (Back pain leg pain) -: days(s) Onset Description: "thunderclap" Location: right, left, frontal, temporal, occipital Severity: moderate Severity scale (1-10): 4 Quality: aching, throbbing, pulsatile, sharp Consistency: constant Improves With: nothing Worsens With: none Associated Symptoms: nausea Other Symptoms: chest pain Treatments Prior to Arrival: none - Related Data Home Medications Medication Instructions Recorded Confirmed Medroxyprogesterone Acetate 150 mg IM Q84D 11/22/13 10/07/20 [Depo-Provera] rOPINIRole HCL [Requip] 1 mg PO BID@0900,1200 11/22/13 10/07/20 Pentosan Polysulfate Sodium 100 mg PO DAILY 02/10/15 10/07/20 [Elmiron] HYDROcodone/APAP 7.5-325MG [[place] 1 tab PO BID 07/20/16 10/07/20 7.5-325] Paliperidone IM Pt Own [Invega 117 mg IM Q28D 07/20/16 10/07/20 Sustenna] amantadine HCL [Symmetrel] 100 mg PO BID 11/21/16 10/07/20 Albuterol Sulfate [Proair Hfa] 2 puff INHALATION RT-QID PRN 01/13/18 10/07/20 Butalb/Acetaminophen/Caffeine 1 tab PO Q8H PRN 01/13/18 10/07/20 [Fioricet 50-325-40] Fluticasone Propionate [Flovent 1 puff INHALATION RT-BID 01/13/18 10/07/20 Hfa 110 mcg] gemfibroziL [Lopid] 600 mg PO BID 01/13/18 10/07/20 Gabapentin [Neurontin] 300 mg PO TID 03/11/18 10/07/20 Gabapentin [Neurontin] 600 mg PO TID 09/16/19 10/07/20 Omeprazole [PriLOSEC] 40 mg PO DAILY 09/16/19 10/07/20 rOPINIRole HCL [Requip] 2 mg PO HS 09/16/19 10/07/20 traZODone HCL 300 mg PO HS 09/16/19 10/07/20 hydrOXYzine pamoate 25 mg PO BID 04/13/20 10/07/20 Cyclobenzaprine [Flexeril] 10 mg PO TID PRN 08/16/20 10/07/20 Fentanyl/Bupivcaine Pain Pump 1 dose INTRATHECA CONTINUOUS 08/16/20 10/07/20 Ibuprofen [Motrin] 600 mg PO TID PRN 10/07/20 10/07/20 diphenhydrAMINE [Benadryl] 50 mg PO DAILY PRN 10/07/20 10/07/20 Previous Rx's Medication Instructions Recorded Erythromycin Ophth Oint [Romycin 1 applic RIGHT EYE QID #1 bottle 10/03/20 Ophth Oint] Ondansetron Odt [Zofran Odt] 4 mg PO Q8HR PRN #14 tab 10/16/20 Ondansetron Odt [Zofran Odt] 4 mg PO Q8HR PRN #10 tab 06/21/21 predniSONE [Deltasone] 20 mg PO BID #10 tab 09/08/21 Cephalexin [Keflex] 500 mg PO Q8HR 7 Days #21 cap 11/25/21 Fluconazole [Diflucan] 150 mg PO ONCE #1 tab 11/25/21 Amoxic-Pot Clav 875-125Mg 1 tab PO Q12HR 7 Days #14 tab 05/02/23 [Augmentin 875-125] Allergies Allergy/AdvReac Type Severity Reaction Status Date / Time azithromycin Allergy Rash/Hives Verified 05/21/23 09:04 [From Zithromax Z-Mehrdad] cimetidine [From Tagamet] Allergy Rash/Hives Verified 05/21/23 09:04 codeine Allergy Nausea & Verified 05/21/23 09:04 Vomiting ether [Ether] Allergy Anaphylaxis Verified 05/21/23 09:04 Fish Containing Products Allergy Anaphylaxis Verified 05/21/23 09:04 [Fish] ibuprofen [From Motrin] Allergy Rash/Hives Verified 05/21/23 09:04 morphine Allergy Unknown Verified 05/21/23 09:04 ziprasidone HCl [From Geodon] Allergy Extrapyramidal Verified 05/21/23 09:04 Symptoms ciprofloxacin [From Cipro] AdvReac Rash/Hives Verified 05/21/23 09:04 fluphenazine HCl AdvReac Extrapyramidal Verified 05/21/23 09:04 [From Prolixin] Symptoms haloperidol [From Haldol] AdvReac Extrapyramidal Verified 05/21/23 09:04 Symptoms Sulfa (Sulfonamide AdvReac Nausea & Verified 05/21/23 09:04 Antibiotics) Vomiting Review of Systems ROS Statement: Those systems with pertinent positive or pertinent negative responses have been documented in the HPI. ROS Other: All systems not noted in ROS Statement are negative. Past Medical History Past Medical History: Asthma, GERD/Reflux, Hyperlipidemia, Musculoskeletal Disorder, Neurologic Disorder, Osteoarthritis (OA), Seizure Disorder Additional Past Medical History / Comment(s): RSD-DERIC FEET, INTERSTITIAL CYSTITIS, BRONCHITIS, HEMORRHOIDS,MIGRAINES, INSOMNIA. VERTIGO, last seizure 4 years ago, complex regional pain syndrome, RLS. History of Any Multi-Drug Resistant Organisms: MRSA Date of last positivie culture/infection: 04/20/15 MDRO Source:: Left Axilla Past Surgical History: Adenoidectomy, Back Surgery, Cholecystectomy, Orthopedic Surgery, Tonsillectomy Additional Past Surgical History / Comment(s): bilateral foot surgery d/t rsd, numerous pain clinic procedures, nerve stimulator in back to tx RSD placed in Nov 11 2015, pain pump placement, replacement of stimulator 06/2021 Past Anesthesia/Blood Transfusion Reactions: Previous Problems w/ Anesthesia Additional Past Anesthesia/Blood Transfusion Reaction / Comment(s): Pt recieved blood when she was 2 yrs old after tonsillectomy. WHEN BABY HEART STOPPED TWICE- PT STATED SHE WAS ALLERGIC TO ETHER. Past Psychological History: Anxiety, Bipolar, Depression, PTSD Smoking Status: Never smoker Past Alcohol Use History: None Reported Past Drug Use History: Marijuana - Past Family History Father History Unknown: Yes Family Medical History: Diabetes Mellitus Mother Family Medical History: Cancer, CVA/TIA, Diabetes Mellitus, Myocardial Infarction ([place]) Additional Family Medical History / Comment(s): Mother has had 5 CVAs, 3 MIs and UTERINE CANCER General Exam Limitations: no limitations General appearance: alert, in no apparent distress Head exam: Present: atraumatic, normocephalic, normal inspection Eye exam: Present: normal appearance, PERRL, EOMI. Absent: scleral icterus, conjunctival injection, periorbital swelling ENT exam: Present: normal exam, mucous membranes moist Neck exam: Present: normal inspection. Absent: tenderness, meningismus, lymphadenopathy Respiratory exam: Present: normal lung sounds bilaterally. Absent: respiratory distress, wheezes, rales, rhonchi, stridor Cardiovascular Exam: Present: regular rate, normal rhythm, normal heart sounds. Absent: systolic murmur, diastolic murmur, rubs, gallop, clicks GI/Abdominal exam: Present: soft, normal bowel sounds. Absent: distended, tenderness, guarding, rebound, rigid Extremities exam: Present: normal inspection, full ROM, normal capillary refill. Absent: tenderness, pedal edema, joint swelling, calf tenderness Back exam: Present: normal inspection Neurological exam: Present: alert, oriented X3, CN II-XII intact Psychiatric exam: Present: normal affect, normal mood Skin exam: Present: warm, dry, intact, normal color. Absent: rash Course Vital Signs 05/10/23 16:01 Temperature 98.2 F Pulse Rate 85 Respiratory 20 Rate Blood Pressure 108/77 O2 Sat by Pulse 100 Oximetry - Reevaluation(s) Reevaluation #1: Records reviewed Reevaluation #2: Patient symptoms unchanged Reevaluation #3: Patient informed of results and questions answered Reevaluation #4: Was pt. sent in by a medical professional or institution (, [facility], [employer], urgent care, hospital, or long term...) When possible be specific @ -no Did you speak to anyone other than the patient for history (EMS, parent, family, police, friend...)? What history was obtained from this source @ -no Did you review nursing and triage notes (agree or disagree)? Why? @ -agree Are old charts reviewed (outside hosp., previous admission, EMS record, old EKG, old radiological studies, urgent care reports/EKG's, long term records)? Report findings @ -yes Differential Diagnosis (chest pain, altered mental status, abdominal pain women, abdominal pain men, vaginal bleeding, weakness, fever, dyspnea, syncope, headache, dizziness, GI bleed, back pain, seizure, CVA, palpatations, mental health, musculoskeletal)? @ -prior EKG interpreted by me (3pts min.). @ -no X-rays interpreted by me (1pt min.). @ -no CT interpreted by me (1pt min.). @ -no U/S interpreted by me (1pt. min.). @ -no What testing was considered but not performed or refused? (CT, X-rays, U/S, labs)? Why? @ -none What meds were considered but not given or refused? Why? @ -none Did you discuss the management of the patient with other professionals (professionals i.e. Dr., PA, [employer], lab, RT, psych nurse, social work associate, well service floor worker, teacher, founder chairman and chief creative officer, bilingual case manager)? Give summary @ -no Was smoking cessation discussed for >3mins.? @ -no Was critical care preformed (if so, how long)? @ -no Were there social determinants of health that impacted care today? How? (Homelessness, low income, unemployed, alcoholism, drug addiction, transportation, low edu. Level, literacy, decrease access to med. care, half-way, rehab)? @ -none Was there de-escalation of care discussed even if they declined (Discuss DNR or withdrawal of care, Hospice)? DNR status @ -no What co-morbidities impacted this encounter? (DM, HTN, Smoking, COPD, CAD, Cancer, CVA, ARF, Chemo, Hep., AIDS, mental health diagnosis, sleep apnea, morbid obesity)? @ -none Was patient admitted / discharged? Hospital course, mention meds given and route, prescriptions, significant lab abnormalities, going to OR and other pertinent info. @ -37 female to the ER for evaluation of chronic pain with adequate pain control currently and can be discharged home Undiagnosed new problem with uncertain prognosis? @ -no Drug Therapy requiring intensive monitoring for toxicity (Heparin, Nitro, Insulin, Cardizem)? @ -no Were any procedures done? @ -no Diagnosis/symptom? @ -Chronic pain Acute, or Chronic, or Acute on Chronic? @ -Acute Uncomplicated (without systemic symptoms) or Complicated (systemic symptoms)? @ -Complicated Side effects of treatment? @ -no Exacerbation, Progression, or Severe Exacerbation? @ -exacerbation Poses a threat to life or bodily function? How? (Chest pain, [place], [place], pneumonia, PE, COPD, DKA, ARF, appy, cholecystitis, CVA, Diverticulitis, Homicidal, Suicidal, threat to staff... and all critical care pts) @ -no Medical Decision Making - Medical Decision Making 37 female to the ER for evaluation of chronic pain. Patient has adequate pain control currently and can be discharged home Disposition Clinical Impression: Chronic pain, Headache, Migraine headache Disposition: HOME SELF-CARE Condition: Good Instructions (If sedation given, give patient instructions): Acute Headache (ED) Is patient prescribed a controlled substance at d/c from ED?: No Referrals: None,Stated [Primary Care Provider] - 1-2 days Time of Disposition: 16:15
[2023-05-10] MEDS: HYDROmorphone 1 MG/ML 1 ML SYRINGE IM STA (16:32)
[2023-05-10] MEDS: diphenhydrAMINE 50 MG CAP PO STA (16:33)
[2023-05-10] MEDS: PROCHLORPERAZINE 10 MG TAB PO STA (16:33)
== END 2023-05-10 16:41 | disposition home or self-care (01) ==
LOC: EC 15:56
DX: G89.29 Other chronic pain (principal); G43.909 Migraine, unspecified, not intractable, without status migrainosus; J45.909 Unspecified asthma, uncomplicated; K21.9 Gastro-esophageal reflux disease without esophagitis; M19.90 Unspecified osteoarthritis, unspecified site; F12.90 Cannabis use, unspecified, uncomplicated; Z79.1 Long term (current) use of non-steroidal anti-inflammatories (NSAID); Z79.899 Other long term (current) drug therapy; Z79.51 Long term (current) use of inhaled steroids; Z88.5 Allergy status to narcotic agent; Z88.1 Allergy status to other antibiotic agents; Z88.2 Allergy status to sulfonamides; Z88.8 Allergy status to other drugs, medicaments and biological substances; Z91.013 Allergy to seafood; Z88.6 Allergy status to analgesic agent; Z86.59 Personal history of other mental and behavioral disorders
CPT/HCPCS: 99284; 96372; S0183; J1170

== ENCOUNTER 2023-05-19 20:25 | Emergency (ER) | payer MEDICARE, OTHER ==
[2023-05-19 20:33] VITALS: RESP 20; TEMP 98.3
[2023-05-19 21:08] LABS: Basophils # (A) 0.1 k/uL (0-0.2); Basophils % (A) 1 %; Eosinophils # (A) 0.1 k/uL (0-0.7); Eosinophils % (A) 2 %; HCT 37.4 % (34.0-46.0); HGB 12.7 gm/dL (11.4-16.0); Lymphocytes # (A) 2.4 k/uL (1.0-4.8); Lymphocytes % (A) 39 %; MCH 31.2 pg (25.0-35.0); MCHC 34.1 g/dL (31.0-37.0); MCV 91.6 fL (80.0-100.0); Mean Platelet Volume 7.5; Monocytes # (A) 0.3 k/uL (0-1.0); Monocytes % (A) 4 %; Neutrophils # (A) 3.3 k/uL (1.3-7.7); Neutrophils % (A) 54 %; Platelet Count 238 k/uL (150-450); RBC 4.09 m/uL (3.80-5.40); WBC 6.2 k/uL (3.8-10.6)
[2023-05-19] MEDS: ORPHENADRINE 30 MG/ML 2 ML VIAL IVP STA (21:12)
--- NOTE | 2023-05-19 21:28 | US ---
EXAMINATION TYPE: US venous doppler duplex LE RT DATE OF EXAM: 05/19/2023 8:38 PM COMPARISON: 217 CLINICAL INDICATION: Female, 37 years old with history of r/o dvt; Right leg pain SIDE PERFORMED: Right TECHNIQUE: The lower extremity deep venous system is examined utilizing real time linear array sonog zaida with graded compression, doppler sonography and color-flow sonography. VESSELS IMAGED: Common Femoral Vein Deep Femoral Vein Greater Saphenous Vein * Femoral Vein Popliteal Vein Small Saphenous Vein * Proximal Calf Veins (* superficial vessels) Right Leg: Negative for DVT IMPRESSION: Grayscale, color doppler, spectral doppler imaging performed of the deep veins of the lo wer extremities. There is normal flow, compressibility, vascular waveforms.
[2023-05-19 21:33] LABS: ALT 21 U/L (4-34); AST 18 U/L (14-36); African American GFR (CKD) >90 (>60 ml/min/1.73 sqM); Albumin 4.1 g/dL (3.5-5.0); Alkaline Phosphatase 75 U/L (38-126); Anion Gap 5 mmol/L; Blood Urea Nitrogen 17 mg/dL (7-17); Calcium 8.7 mg/dL (8.4-10.2); Carbon Dioxide 23 mmol/L (22-30); Chloride 110 mmol/L (98-107); Glucose 127 mg/dL (74-99); Magnesium 1.7 mg/dL (1.6-2.3); Non-African American GFR(CKD) >90 (>60 ml/min/1.73 sqM); Potassium 3.9 mmol/L (3.5-5.1); Sodium 138 mmol/L (137-145); Total Bilirubin 0.2 mg/dL (0.2-1.3)
[2023-05-19] MEDS: KETOROLAC 15 MG/ML 1 ML VIAL IVP STA (22:01)
[2023-05-19] MEDS: diphenhydrAMINE 50 MG/ML 1 ML VIAL IVP STA (22:02)
--- NOTE | 2023-05-19 22:08 | ED ---
General Adult HPI - General Chief complaint: Extremity Injury, Lower Stated complaint: rt leg pain Time Seen by Provider: 05/19/23 20:37 Source: patient Mode of arrival: ambulatory Limitations: no limitations - History of Present Illness Initial comments: 37-year-old female with past medical history significant for complex regional pain syndrome presenting to ED with chief complaint of right calf pain. Patient states for the last 3 days has had a cramping-like pain in her calf which is worse especially with stretching a bit more ambulation. No leg swelling. No chest pain shortness of breath. No fever or chills. No other complaints at this time. - Related Data Home Medications Medication Instructions Recorded Confirmed Medroxyprogesterone Acetate 150 mg IM Q84D 11/22/13 10/07/20 [Depo-Provera] rOPINIRole HCL [Requip] 1 mg PO BID@0900,1200 11/22/13 10/07/20 Pentosan Polysulfate Sodium 100 mg PO DAILY 02/10/15 10/07/20 [Elmiron] HYDROcodone/APAP 7.5-325MG [Brighton 1 tab PO BID 07/20/16 10/07/20 7.5-325] Paliperidone IM Pt Own [Invega 117 mg IM Q28D 07/20/16 10/07/20 Sustenna] amantadine HCL [Symmetrel] 100 mg PO BID 11/21/16 10/07/20 Albuterol Sulfate [Proair Hfa] 2 puff INHALATION RT-QID PRN 01/13/18 10/07/20 Butalb/Acetaminophen/Caffeine 1 tab PO Q8H PRN 01/13/18 10/07/20 [Fioricet 50-325-40] Fluticasone Propionate [Flovent 1 puff INHALATION RT-BID 01/13/18 10/07/20 Hfa 110 mcg] gemfibroziL [Lopid] 600 mg PO BID 01/13/18 10/07/20 Gabapentin [Neurontin] 300 mg PO TID 03/11/18 10/07/20 Gabapentin [Neurontin] 600 mg PO TID 09/16/19 10/07/20 Omeprazole [PriLOSEC] 40 mg PO DAILY 09/16/19 10/07/20 rOPINIRole HCL [Requip] 2 mg PO HS 09/16/19 10/07/20 traZODone HCL 300 mg PO HS 09/16/19 10/07/20 hydrOXYzine pamoate 25 mg PO BID 04/13/20 10/07/20 Cyclobenzaprine [Flexeril] 10 mg PO TID PRN 08/16/20 10/07/20 Fentanyl/Bupivcaine Pain Pump 1 dose INTRATHECA CONTINUOUS 08/16/20 10/07/20 Ibuprofen [Motrin] 600 mg PO TID PRN 10/07/20 10/07/20 diphenhydrAMINE [Benadryl] 50 mg PO DAILY PRN 10/07/20 10/07/20 Previous Rx's Medication Instructions Recorded Erythromycin Ophth Oint [Romycin 1 applic RIGHT EYE QID #1 bottle 10/03/20 Ophth Oint] Ondansetron Odt [Zofran Odt] 4 mg PO Q8HR PRN #14 tab 10/16/20 Ondansetron Odt [Zofran Odt] 4 mg PO Q8HR PRN #10 tab 06/21/21 predniSONE [Deltasone] 20 mg PO BID #10 tab 09/08/21 Cephalexin [Keflex] 500 mg PO Q8HR 7 Days #21 cap 11/25/21 Fluconazole [Diflucan] 150 mg PO ONCE #1 tab 11/25/21 Amoxic-Pot Clav 875-125Mg 1 tab PO Q12HR 7 Days #14 tab 05/02/23 [Augmentin 875-125] Allergies Allergy/AdvReac Type Severity Reaction Status Date / Time azithromycin Allergy Rash/Hives Verified 05/19/23 20:32 [From Zithromax Z-Mehrdad] cimetidine [From Tagamet] Allergy Rash/Hives Verified 05/19/23 20:32 codeine Allergy Nausea & Verified 05/19/23 20:32 Vomiting ether [Ether] Allergy Anaphylaxis Verified 05/19/23 20:32 Fish Containing Products Allergy Anaphylaxis Verified 05/19/23 20:32 [Fish] ibuprofen [From Motrin] Allergy Rash/Hives Verified 05/19/23 20:32 morphine Allergy Unknown Verified 05/19/23 20:32 ziprasidone HCl [From Geodon] Allergy Extrapyramidal Verified 05/19/23 20:32 Symptoms ciprofloxacin [From Cipro] AdvReac Rash/Hives Verified 05/19/23 20:32 fluphenazine HCl AdvReac Extrapyramidal Verified 05/19/23 20:32 [From Prolixin] Symptoms haloperidol [From Haldol] AdvReac Extrapyramidal Verified 05/19/23 20:32 Symptoms Sulfa (Sulfonamide AdvReac Nausea & Verified 05/19/23 20:32 Antibiotics) Vomiting Review of Systems ROS Statement: Those systems with pertinent positive or pertinent negative responses have been documented in the HPI. ROS Other: All systems not noted in ROS Statement are negative. Past Medical History Past Medical History: Asthma, GERD/Reflux, Hyperlipidemia, Musculoskeletal Disorder, Neurologic Disorder, Osteoarthritis (OA), Seizure Disorder Additional Past Medical History / Comment(s): RSD-DERIC FEET, INTERSTITIAL CYSTITIS, BRONCHITIS, HEMORRHOIDS,MIGRAINES, INSOMNIA. VERTIGO, last seizure 4 years ago, complex regional pain syndrome, RLS. History of Any Multi-Drug Resistant Organisms: MRSA Date of last positivie culture/infection: 04/20/15 MDRO Source:: Left Axilla Past Surgical History: Adenoidectomy, Back Surgery, Cholecystectomy, Orthopedic Surgery, Tonsillectomy Additional Past Surgical History / Comment(s): bilateral foot surgery d/t rsd, numerous pain clinic procedures, nerve stimulator in back to tx RSD placed in Nov 11 2015, pain pump placement, replacement of stimulator 06/2021 Past Anesthesia/Blood Transfusion Reactions: Previous Problems w/ Anesthesia Additional Past Anesthesia/Blood Transfusion Reaction / Comment(s): Pt recieved blood when she was 2 yrs old after tonsillectomy. WHEN BABY HEART STOPPED TWICE- PT STATED SHE WAS ALLERGIC TO ETHER. Past Psychological History: Anxiety, Bipolar, Depression, PTSD Smoking Status: Never smoker Past Alcohol Use History: None Reported Past Drug Use History: Marijuana - Past Family History Father History Unknown: Yes Family Medical History: Diabetes Mellitus Mother Family Medical History: Cancer, CVA/TIA, Diabetes Mellitus, Myocardial Infarction (DC) Additional Family Medical History / Comment(s): Mother has had 5 CVAs, 3 MIs and UTERINE CANCER General Exam Limitations: no limitations General appearance: alert Eye exam: Present: normal appearance Respiratory exam: Present: normal lung sounds bilaterally Cardiovascular Exam: Present: regular rate, normal rhythm GI/Abdominal exam: Present: soft Extremities exam: Present: other (Strength and sensation equal intact bilateral lower extremities. DP/PT pulses palpable of right lower extremity. No pitting edema bilaterally.) Neurological exam: Present: alert, oriented X3 Skin exam: Present: warm, dry Course Vital Signs 05/19/23 20:29 Temperature 98.3 F Pulse Rate 101 H Respiratory 20 Rate Blood Pressure 146/101 O2 Sat by Pulse 96 Oximetry Medical Decision Making - Medical Decision Making Was pt. sent in by a medical professional or institution (, [facility], [facility], urgent care, hospital, or correction...) When possible be specific @ -No Did you speak to anyone other than the patient for history (EMS, parent, family, police, friend...)? What history was obtained from this source @ -No Did you review nursing and triage notes (agree or disagree)? Why? @ -I reviewed and agree with nursing and triage notes Were old charts reviewed (outside hosp., previous admission, EMS record, old EKG, old radiological studies, urgent care reports/EKG's, correction records)? Report findings @ -No old charts were reviewed Differential Diagnosis (chest pain, altered mental status, abdominal pain women, abdominal pain men, vaginal bleeding, weakness, fever, dyspnea, syncope, headache, dizziness, GI bleed, back pain, seizure, CVA, palpatations, mental health, musculoskeletal)? @ -Differential Musculoskeletal Muscular strain, contusion, ligament sprain, fracture, arthritis, septic arthritis, bursitis, cellulitis, muscle spasm, nerve compression, DVT, arterial occlusion, herpes zoster, electrolyte abnormality, tumor.... This is not meant to be in all inclusive list EKG interpreted by me (3pts min.). @ -None X-rays interpreted by me (1pt min.). @ -None done CT interpreted by me (1pt min.). @ -None done U/S interpreted by me (1pt. min.). @ -Ultrasound performed the right lower extremity interpreted me showing no brittani dence of DVT or other acute finding. What testing was considered but not performed or refused? (CT, X-rays, U/S, labs)? Why? @ -None What meds were considered but not given or refused? Why? @ -None Did you discuss the management of the patient with other professionals (professionals i.e. [facility] Estes, [facility], lab, RT, psych nurse, social director, wood handler, teacher, traffic officer, binder caser)? Give summary @ -No Was smoking cessation discussed for >3mins.? @ -No Was critical care preformed (if so, how long)? @ -No Were there social determinants of health that impacted care today? How? ( Homelessness, low income, unemployed, alcoholism, drug addiction, transportation, low edu. Level, literacy, decrease access to med. care, longterm, rehab)? @ -No Was there de-escalation of care discussed even if they declined (Discuss DNR or withdrawal of care, Hospice)? DNR status @ -No What co-morbidities impacted this encounter? (DM, HTN, Smoking, COPD, CAD, Cancer, CVA, ARF, Chemo, Hep., AIDS, mental health diagnosis, sleep apnea, morbid obesity)? @ -None Was patient admitted / discharged? Hospital course, mention meds given and route, prescriptions, significant lab abnormalities, going to OR and other pertinent info. @ -Discharge 37-year-old female with a past medical history significant for complex regional pain syndrome presenting to the ED with a chief complaint of right calf pain ongoing for the last 5 days. Ultrasound was performed that revealed no evidence of DVT. Laboratory studies all within normal limits. Patient provided Toradol, Norflex, and Benadryl for analgesia. At this time vital signs stable afebrile. Discharged home in stable condition. Advise follow-up with PCP. Undiagnosed new problem with uncertain prognosis? @ -No Drug Therapy requiring intensive monitoring for toxicity (Heparin, Nitro, Insulin, Cardizem)? @ -No Were any procedures done? @ -No Diagnosis/symptom? @ -Right calf pain Acute, or Chronic, or Acute on Chronic? @ -Acute Uncomplicated (without systemic symptoms) or Complicated (systemic symptoms)? @ -Uncomplicated Side effects of treatment? @ -No Exacerbation, Progression, or Severe Exacerbation? @ -No Poses a threat to life or bodily function? How? (Chest pain, USA, DC, pneumonia, PE, COPD, DKA, ARF, appy, cholecystitis, CVA, Diverticulitis, Homicidal, Suicidal, threat to staff... and all critical care pts) @ -No - Lab Data Result diagrams: 05/19/23 20:58 05/19/23 20:58 Lab Results 05/19/23 05/19/23 Range/Units 20:58 20:58 WBC 6.2 (3.8-10.6) k/uL RBC 4.09 (3.80-5.40) m/uL Hgb 12.7 (11.4-16.0) gm/dL Hct 37.4 (34.0-46.0) % MCV 91.6 (80.0-100.0) fL MCH 31.2 (25.0-35.0) pg MCHC 34.1 (31.0-37.0) g/dL RDW 13.0 (11.5-15.5) % Plt Count 238 (150-450) k/uL MPV 7.5 Neutrophils % 54 % Lymphocytes % 39 % Monocytes % 4 % Eosinophils % 2 % Basophils % 1 % Neutrophils # 3.3 (1.3-7.7) k/uL Lymphocytes # 2.4 (1.0-4.8) k/uL Monocytes # 0.3 (0-1.0) k/uL Eosinophils # 0.1 (0-0.7) k/uL Basophils # 0.1 (0-0.2) k/uL Sodium 138 (137-145) mmol/L Potassium 3.9 (3.5-5.1) mmol/L Chloride 110 H (98-107) mmol/L Carbon Dioxide 23 (22-30) mmol/L Anion Gap 5 mmol/L BUN 17 (7-17) mg/dL Creatinine 0.76 (0.52-1.04) mg/dL Est GFR (CKD-EPI)AfAm >90 (>60 ml/min/1.73 sqM) Est GFR (CKD-EPI)NonAf >90 (>60 ml/min/1.73 sqM) Glucose 127 H (74-99) mg/dL Calcium 8.7 (8.4-10.2) mg/dL Magnesium 1.7 (1.6-2.3) mg/dL Total Bilirubin 0.2 (0.2-1.3) mg/dL AST 18 (14-36) U/L ALT 21 (4-34) U/L Alkaline Phosphatase 75 (38-126) U/L Total Protein 6.0 L (6.3-8.2) g/dL Albumin 4.1 (3.5-5.0) g/dL Disposition Clinical Impression: Right calf pain Disposition: HOME SELF-CARE Condition: Good Additional Instructions: Please return to the Emergency Department if symptoms worsen or any other concerns. Please follow-up with your PCP. Is patient prescribed a controlled substance at d/c from ED?: No Referrals: None,Stated [Primary Care Provider] - 1-2 days Time of Disposition: 22:00
[2023-05-19] MEDS: HYDROmorphone 1 MG/ML 1 ML SYRINGE IVP STA (23:06)
[2023-05-19 23:23] VITALS: BP 123/86; PULSE 90
== END 2023-05-19 23:20 | disposition home or self-care (01) ==
LOC: EC 20:25
DX: M79.661 Pain in right lower leg (principal); E78.5 Hyperlipidemia, unspecified; F31.9 Bipolar disorder, unspecified; F41.9 Anxiety disorder, unspecified; J45.909 Unspecified asthma, uncomplicated; K21.9 Gastro-esophageal reflux disease without esophagitis; M19.90 Unspecified osteoarthritis, unspecified site; F12.90 Cannabis use, unspecified, uncomplicated; Z79.899 Other long term (current) drug therapy; Z88.6 Allergy status to analgesic agent; Z88.5 Allergy status to narcotic agent; Z88.8 Allergy status to other drugs, medicaments and biological substances; Z90.49 Acquired absence of other specified parts of digestive tract
CPT/HCPCS: 36415; 80053; 83735; 85025; 93971; 99284; 96374; 96375 ×3; J1200; J2360; J1170; J1885

== ENCOUNTER 2023-05-21 08:47 | Emergency (ER) | payer MEDICARE, OTHER ==
--- NOTE | 2023-05-21 09:07 | ED ---
General Adult HPI - General Chief complaint: Chest Pain Stated complaint: Chest Pain Time Seen by Provider: 05/21/23 09:00 Source: patient, RN notes reviewed, old records reviewed Mode of arrival: EMS Limitations: no limitations - History of Present Illness Initial comments: This is a 37-year-old female who presents to the emergency department stating t hat yesterday she was moving a washer and she started having some shoulder pain now radiates to her chest. Patient states that sharp in nature. Patient states she has a fentanyl pump but she does not think it is working. Patient states she took [place] and Motrin that did not help. Patient states she has a regional pain syndrome and normally has leg pain but this is in her back and chest. Patient denies any difficulty breathing or shortness of breath. Patient has any palpitations. Patient has any fever chills or cough. - Related Data Home Medications Medication Instructions Recorded Confirmed Medroxyprogesterone Acetate 150 mg IM Q84D 11/22/13 10/07/20 [Depo-Provera] rOPINIRole HCL [Requip] 1 mg PO BID@0900,1200 11/22/13 10/07/20 Pentosan Polysulfate Sodium 100 mg PO DAILY 02/10/15 10/07/20 [Elmiron] HYDROcodone/APAP 7.5-325MG [[place] 1 tab PO BID 07/20/16 10/07/20 7.5-325] Paliperidone IM Pt Own [Invega 117 mg IM Q28D 07/20/16 10/07/20 Sustenna] amantadine HCL [Symmetrel] 100 mg PO BID 11/21/16 10/07/20 Albuterol Sulfate [Proair Hfa] 2 puff INHALATION RT-QID PRN 01/13/18 10/07/20 Butalb/Acetaminophen/Caffeine 1 tab PO Q8H PRN 01/13/18 10/07/20 [Fioricet 50-325-40] Fluticasone Propionate [Flovent 1 puff INHALATION RT-BID 01/13/18 10/07/20 Hfa 110 mcg] gemfibroziL [Lopid] 600 mg PO BID 01/13/18 10/07/20 Gabapentin [Neurontin] 300 mg PO TID 03/11/18 10/07/20 Gabapentin [Neurontin] 600 mg PO TID 09/16/19 10/07/20 Omeprazole [PriLOSEC] 40 mg PO DAILY 09/16/19 10/07/20 rOPINIRole HCL [Requip] 2 mg PO HS 09/16/19 10/07/20 traZODone HCL 300 mg PO HS 09/16/19 10/07/20 hydrOXYzine pamoate 25 mg PO BID 04/13/20 10/07/20 Cyclobenzaprine [Flexeril] 10 mg PO TID PRN 08/16/20 10/07/20 Fentanyl/Bupivcaine Pain Pump 1 dose INTRATHECA CONTINUOUS 08/16/20 10/07/20 Ibuprofen [Motrin] 600 mg PO TID PRN 10/07/20 10/07/20 diphenhydrAMINE [Benadryl] 50 mg PO DAILY PRN 10/07/20 10/07/20 Previous Rx's Medication Instructions Recorded Erythromycin Ophth Oint [Romycin 1 applic RIGHT EYE QID #1 bottle 10/03/20 Ophth Oint] Ondansetron Odt [Zofran Odt] 4 mg PO Q8HR PRN #14 tab 10/16/20 Ondansetron Odt [Zofran Odt] 4 mg PO Q8HR PRN #10 tab 06/21/21 predniSONE [Deltasone] 20 mg PO BID #10 tab 09/08/21 Cephalexin [Keflex] 500 mg PO Q8HR 7 Days #21 cap 11/25/21 Fluconazole [Diflucan] 150 mg PO ONCE #1 tab 11/25/21 Amoxic-Pot Clav 875-125Mg 1 tab PO Q12HR 7 Days #14 tab 05/02/23 [Augmentin 875-125] Allergies Allergy/AdvReac Type Severity Reaction Status Date / Time azithromycin Allergy Rash/Hives Verified 05/21/23 09:04 [From Zithromax Z-Mehrdad] cimetidine [From Tagamet] Allergy Rash/Hives Verified 05/21/23 09:04 codeine Allergy Nausea & Verified 05/21/23 09:04 Vomiting ether [Ether] Allergy Anaphylaxis Verified 05/21/23 09:04 Fish Containing Products Allergy Anaphylaxis Verified 05/21/23 09:04 [Fish] ibuprofen [From Motrin] Allergy Rash/Hives Verified 05/21/23 09:04 morphine Allergy Unknown Verified 05/21/23 09:04 ziprasidone HCl [From Geodon] Allergy Extrapyramidal Verified 05/21/23 09:04 Symptoms ciprofloxacin [From Cipro] AdvReac Rash/Hives Verified 05/21/23 09:04 fluphenazine HCl AdvReac Extrapyramidal Verified 05/21/23 09:04 [From Prolixin] Symptoms haloperidol [From Haldol] AdvReac Extrapyramidal Verified 05/21/23 09:04 Symptoms Sulfa (Sulfonamide AdvReac Nausea & Verified 05/21/23 09:04 Antibiotics) Vomiting Review of Systems ROS Statement: Those systems with pertinent positive or pertinent negative responses have been documented in the HPI. ROS Other: All systems not noted in ROS Statement are negative. Past Medical History Past Medical History: Asthma, GERD/Reflux, Hyperlipidemia, Musculoskeletal Disorder, Neurologic Disorder, Osteoarthritis (OA), Seizure Disorder Additional Past Medical History / Comment(s): RSD-DERIC FEET, INTERSTITIAL CYSTITIS, BRONCHITIS, HEMORRHOIDS,MIGRAINES, INSOMNIA. VERTIGO, last seizure 4 years ago, complex regional pain syndrome, RLS. History of Any Multi-Drug Resistant Organisms: MRSA Date of last positivie culture/infection: 04/20/15 MDRO Source:: Left Axilla Past Surgical History: Adenoidectomy, Back Surgery, Cholecystectomy, Orthopedic Surgery, Tonsillectomy Additional Past Surgical History / Comment(s): bilateral foot surgery d/t rsd, numerous pain clinic procedures, nerve stimulator in back to tx RSD placed in Nov 11 2015, pain pump placement, replacement of stimulator 06/2021 Past Anesthesia/Blood Transfusion Reactions: Previous Problems w/ Anesthesia Additional Past Anesthesia/Blood Transfusion Reaction / Comment(s): Pt recieved blood when she was 2 yrs old after tonsillectomy. WHEN BABY HEART STOPPED TWICE- PT STATED SHE WAS ALLERGIC TO ETHER. Past Psychological History: Anxiety, Bipolar, Depression, PTSD Smoking Status: Never smoker Past Alcohol Use History: None Reported Past Drug Use History: Marijuana - Past Family History Father History Unknown: Yes Family Medical History: Diabetes Mellitus Mother Family Medical History: Cancer, CVA/TIA, Diabetes Mellitus, Myocardial Infarction ([place]) Additional Family Medical History / Comment(s): Mother has had 5 CVAs, 3 MIs and UTERINE CANCER General Exam - General Exam Comments Initial Comments: GENERAL: Patient is well-developed and well-nourished. Patient is nontoxic and well- hydrated and is in mild distress. ENT: Neck is soft and supple. No significant lymphadenopathy is noted. Oropharynx is clear. Moist mucous membranes. Neck has full range of motion without elicit ing any pain. EYES: The sclera were anicteric and conjunctiva were pink and moist. Extraocular mo vements were intact and pupils were equal round and reactive to light. Eyelids were unremarkable. PULMONARY: Unlabored respirations. Good breath sounds bilaterally. No audible rales rhonchi or wheezing was noted. CARDIOVASCULAR: There is a regular rate and rhythm without any murmurs gallops or rubs. Pain is somewhat reproducible on palpation but not consistent with multiple examinations ABDOMEN: Soft and nontender with normal bowel sounds. SKIN: Skin is clear with no lesions or rashes and otherwise unremarkable. NEUROLOGIC: Patient is alert and oriented x3. Cranial nerves II through XII are grossly intact. Motor and sensory are also intact. Normal speech, volume and content. Symmetrical smile. MUSCULOSKELETAL: Normal extremities with adequate strength and full range of motion. No lower extremity swelling or edema. No calf tenderness. LYMPHATICS: No significant lymphadenopathy is noted PSYCHIATRIC: Normal psychiatric evaluation. 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 Patient EKG shows no ST segment ovation or depression. Was pt. sent in by a medical professional or institution (, PA, PAINTER SHIPYARD, urgent care, hospital, or [facility]...) When possible be specific @ -No Did you speak to anyone other than the patient for history (EMS, parent, family, police, friend...)? What history was obtained from this source @ -No Did you review nursing and triage notes (agree or disagree)? Why? @ -I reviewed and agree with nursing and triage notes Were old charts reviewed (outside hosp., previous admission, EMS record, old EKG, old radiological studies, urgent care reports/EKG's, [facility] records)? Report findings @ -I reviewed old charts and old lab work on this patient Differential Diagnosis (chest pain, altered mental status, abdominal pain women, abdominal pain men, vaginal bleeding, weakness, fever, dyspnea, syncope, headache, dizziness, GI bleed, back pain, seizure, CVA, palpatations, mental health, musculoskeletal)? @ -Differential Back Pain: Strain, zoster, cauda equina syndrome, epidural abscess, vertebral osteomyelitis, discitis, fracture, subluxation, disc herniation, DJD, spinal stenosis, dissection, AAA, pancreatitis, peptic ulcer disease, pyelonephritis, kidney stone, this is not meant to be an all-inclusive list. EKG interpreted by me (3pts min.). @ -As above X-rays interpreted by me (1pt min.). @ -Chest x-ray shows no acute abnormality CT interpreted by me (1pt min.). @ -None done U/S interpreted by me (1pt. min.). @ -None done What testing was considered but not performed or refused? (CT, X-rays, U/S, labs)? Why? @ -None What meds were considered but not given or refused? Why? @ -None Did you discuss the management of the patient with other professionals (professionals i.e. , PA, PAINTER SHIPYARD, lab, RT, psych nurse, director social, scholastic aptitude test grader, teacher, environmental conservation officer, catalytic case operator)? Give summary @ -No Was smoking cessation discussed for >3mins.? @ -No Was critical care preformed (if so, how long)? @ -No Were there social determinants of health that impacted care today? How? (Homelessness, low income, unemployed, alcoholism, drug addiction, transportation, low edu. Level, literacy, decrease access to med. care, correction, rehab)? @ -No Was there de-escalation of care discussed even if they declined (Discuss DNR or withdrawal of care, Hospice)? DNR status @ -No What co-morbidities impacted this encounter? (DM, HTN, Smoking, COPD, CAD, Cancer, CVA, ARF, Chemo, Hep., AIDS, mental health diagnosis, sleep apnea, mor bid obesity)? @ -None Was patient admitted / discharged? Hospital course, mention meds given and rou te, prescriptions, significant lab abnormalities, going to OR and other pertinent info. @ -Patient was demanding narcotics the whole time she was in the emergency department she has an extensive history of demanding pain medications. Patient was also recently at [facility] many times this is her 11th visit to our center for pain. All lab work and x-rays of the chest were normal. Undiagnosed new problem with uncertain prognosis? @ -No Drug Therapy requiring intensive monitoring for toxicity (Heparin, Nitro, Insulin, Cardizem)? @ -No Were any procedures done? @ -No Diagnosis/symptom? @ -Atypical chest pain Acute, or Chronic, or Acute on Chronic? @ -Acute Uncomplicated (without systemic symptoms) or Complicated (systemic symptoms)? @ -Complicated Side effects of treatment? @ -No Exacerbation, Progression, or Severe Exacerbation? @ -No Poses a threat to life or bodily function? How? (Chest pain, [place], [place], pneumonia, PE, COPD, DKA, ARF, appy, cholecystitis, CVA, Diverticulitis, Homicidal, Suicidal, threat to staff... and all critical care pts) @ -No Diagnosis/symptom? @ -Back pain Acute, or Chronic, or Acute on Chronic? @ -Acute Uncomplicated (without systemic symptoms) or Complicated (systemic symptoms)? @ -Complicated Side effects of treatment? @ -None Exacerbation, Progression, or Severe Exacerbation] @ -No Poses a threat to life or bodily function? @ -No - Lab Data Result diagrams: 05/21/23 09:06 05/21/23 09:06 Lab Results 05/21/23 05/21/23 05/21/23 Range/Units 09:06 09:06 09:06 WBC 5.8 (3.8-10.6) k/uL RBC 4.34 (3.80-5.40) m/uL Hgb 13.4 (11.4-16.0) gm/dL Hct 40.5 (34.0-46.0) % MCV 93.3 (80.0-100.0) fL MCH 30.9 (25.0-35.0) pg MCHC 33.1 (31.0-37.0) g/dL RDW 12.8 (11.5-15.5) % Plt Count 251 (150-450) k/uL MPV 7.1 Neutrophils % 70 % Lymphocytes % 23 % Monocytes % 4 % Eosinophils % 2 % Basophils % 1 % Neutrophils # 4.1 (1.3-7.7) k/uL Lymphocytes # 1.4 (1.0-4.8) k/uL Monocytes # 0.2 (0-1.0) k/uL Eosinophils # 0.1 (0-0.7) k/uL Basophils # 0.0 (0-0.2) k/uL D-Dimer <0.17 (<0.60) mg/L FEU Sodium 139 (137-145) mmol/L Potassium 4.5 (3.5-5.1) mmol/L Chloride 111 H (98-107) mmol/L Carbon Dioxide 20 L (22-30) mmol/L Anion Gap 8 mmol/L BUN 16 (7-17) mg/dL Creatinine 0.74 (0.52-1.04) mg/dL Est GFR (CKD-EPI)AfAm >90 (>60 ml/min/1.73 sqM) Est GFR (CKD-EPI)NonAf >90 (>60 ml/min/1.73 sqM) Glucose 100 H (74-99) mg/dL Calcium 9.1 (8.4-10.2) mg/dL Magnesium 1.9 (1.6-2.3) mg/dL Total Bilirubin 0.2 (0.2-1.3) mg/dL AST 20 (14-36) U/L ALT 21 (4-34) U/L Alkaline Phosphatase 81 (38-126) U/L Troponin I (0.000-0.034) ng/mL Total Protein 5.9 L (6.3-8.2) g/dL Albumin 3.8 (3.5-5.0) g/dL 05/21/23 Range/Units 09:06 WBC (3.8-10.6) k/uL RBC (3.80-5.40) m/uL Hgb (11.4-16.0) gm/dL Hct (34.0-46.0) % MCV (80.0-100.0) fL MCH (25.0-35.0) pg MCHC (31.0-37.0) g/dL RDW (11.5-15.5) % Plt Count (150-450) k/uL MPV Neutrophils % % Lymphocytes % % Monocytes % % Eosinophils % % Basophils % % Neutrophils # (1.3-7.7) k/uL Lymphocytes # (1.0-4.8) k/uL Monocytes # (0-1.0) k/uL Eosinophils # (0-0.7) k/uL Basophils # (0-0.2) k/uL D-Dimer (<0.60) mg/L FEU Sodium (137-145) mmol/L Potassium (3.5-5.1) mmol/L Chloride (98-107) mmol/L Carbon Dioxide (22-30) mmol/L Anion Gap mmol/L BUN (7-17) mg/dL Creatinine (0.52-1.04) mg/dL Est GFR (CKD-EPI)AfAm (>60 ml/min/1.73 sqM) Est GFR (CKD-EPI)NonAf (>60 ml/min/1.73 sqM) Glucose (74-99) mg/dL Calcium (8.4-10.2) mg/dL Magnesium (1.6-2.3) mg/dL Total Bilirubin (0.2-1.3) mg/dL AST (14-36) U/L ALT (4-34) U/L Alkaline Phosphatase (38-126) U/L Troponin I <0.012 (0.000-0.034) ng/mL Total Protein (6.3-8.2) g/dL Albumin (3.5-5.0) g/dL Disposition Clinical Impression: Atypical chest pain, Back pain, Drug-seeking behavior Disposition: HOME SELF-CARE Condition: Good Instructions (If sedation given, give patient instructions): Chest Pain (ED), Acute Low Back Pain (ED) Is patient prescribed a controlled substance at d/c from ED?: No Referrals: None,Stated [Primary Care Provider] - 1-2 days Time of Disposition: 10:33
[2023-05-21 09:15] VITALS: PULSE 90; TEMP 98
--- NOTE | 2023-05-21 10:02 | XR ---
EXAMINATION TYPE: XR chest 2V DATE OF EXAM: 05/21/2023 9:52 AM CLINICAL INDICATION:Female, 37 years old with history of Chest Pain; COMPARISON: Chest radiographs from 04/04/2023. TECHNIQUE: XR chest 2V Frontal and lateral views of the chest. FINDINGS: Lungs/Pleura: There is no evidence of pleural effusion, focal consolidation, or pneumothorax. Pulmonary vascularity: Unremarkable. Heart/mediastinum: Cardiomediastinal silhouette is unremarkable. Musculoskeletal: No acute osseous pathology. 6th nerve stimulator device terminates over the spine. IMPRESSION: Low lung volumes with a generalized hazy appearance which could represent atelectasis.
[2023-05-21 10:10] LABS: Basophils % (A) 1 %; Eosinophils # (A) 0.1 k/uL (0-0.7); Eosinophils % (A) 2 %; HCT 40.5 % (34.0-46.0); HGB 13.4 gm/dL (11.4-16.0); Lymphocytes # (A) 1.4 k/uL (1.0-4.8); Lymphocytes % (A) 23 %; MCH 30.9 pg (25.0-35.0); MCHC 33.1 g/dL (31.0-37.0); MCV 93.3 fL (80.0-100.0); Mean Platelet Volume 7.1; Monocytes # (A) 0.2 k/uL (0-1.0); Monocytes % (A) 4 %; Neutrophils # (A) 4.1 k/uL (1.3-7.7); Neutrophils % (A) 70 %; Platelet Count 251 k/uL (150-450); RBC 4.34 m/uL (3.80-5.40); RDW 12.8 % (11.5-15.5); WBC 5.8 k/uL (3.8-10.6)
[2023-05-21 10:19] LABS: ALT 21 U/L (4-34); AST 20 U/L (14-36); African American GFR (CKD) >90 (>60 ml/min/1.73 sqM); Albumin 3.8 g/dL (3.5-5.0); Alkaline Phosphatase 81 U/L (38-126); Anion Gap 8 mmol/L; Blood Urea Nitrogen 16 mg/dL (7-17); Calcium 9.1 mg/dL (8.4-10.2); Carbon Dioxide 20 mmol/L (22-30); Chloride 111 mmol/L (98-107); Glucose 100 mg/dL (74-99); Magnesium 1.9 mg/dL (1.6-2.3); Non-African American GFR(CKD) >90 (>60 ml/min/1.73 sqM); Potassium 4.5 mmol/L (3.5-5.1); Sodium 139 mmol/L (137-145); Total Bilirubin 0.2 mg/dL (0.2-1.3); Total Protein 5.9 g/dL (6.3-8.2)
[2023-05-21 11:40] VITALS: BP 145/90; RESP 36
== END 2023-05-21 10:42 | disposition home or self-care (01) ==
LOC: EC 08:47
DX: R07.89 Other chest pain (principal); M54.9 Dorsalgia, unspecified; Z76.5 Malingerer [conscious simulation]; J44.89 Other specified chronic obstructive pulmonary disease; M19.90 Unspecified osteoarthritis, unspecified site; K21.9 Gastro-esophageal reflux disease without esophagitis; F12.90 Cannabis use, unspecified, uncomplicated; Z86.59 Personal history of other mental and behavioral disorders; Z79.51 Long term (current) use of inhaled steroids; Z79.1 Long term (current) use of non-steroidal anti-inflammatories (NSAID); Z79.899 Other long term (current) drug therapy; Z88.5 Allergy status to narcotic agent; Z91.013 Allergy to seafood; Z88.1 Allergy status to other antibiotic agents; Z88.2 Allergy status to sulfonamides; Z88.8 Allergy status to other drugs, medicaments and biological substances; Z88.6 Allergy status to analgesic agent
CPT/HCPCS: 36415; 71046; 80053; 83735; 84484; 85025; 85379; 93005; 99285

== ENCOUNTER 2023-07-07 19:25 | Emergency (ER) | payer MEDICARE, OTHER ==
--- NOTE | 2023-07-07 20:23 | ED ---
Recheck HPI - General Chief Complaint: Extremity Problem,Nontraumatic Stated Complaint: Leg Pain Time Seen by Provider: 07/07/23 19:33 Source: patient, RN notes reviewed, old records reviewed Mode of arrival: ambulatory Limitations: no limitations - History of Present Illness Initial Comments: This is a 37-year-old female to the ER for evaluation of pain chronic pain. This patient presents today for evaluation of pain and leg pain bilaterally. Pain is severe and persistent. She does have nausea vomiting unable to take pain medications at home. Patient does follow-up with pain control, patient states she just needs something to help with her pain exacerbation -: days(s) Returns Today for: persistent/worsening pain related to initial visit Symptoms Since Prior Visit: worsening pain Treatments Prior to Arrival: Given Pain Meds on - Related Data Home Medications Medication Instructions Recorded Confirmed Medroxyprogesterone Acetate 150 mg IM Q84D 11/22/13 10/07/20 [Depo-Provera] rOPINIRole HCL [Requip] 1 mg PO BID@0900,1200 11/22/13 10/07/20 Pentosan Polysulfate Sodium 100 mg PO DAILY 02/10/15 10/07/20 [Elmiron] HYDROcodone/APAP 7.5-325MG [[place] 1 tab PO BID 07/20/16 10/07/20 7.5-325] Paliperidone IM Pt Own [Invega 117 mg IM Q28D 07/20/16 10/07/20 Sustenna] amantadine HCL [Symmetrel] 100 mg PO BID 11/21/16 10/07/20 Albuterol Sulfate [Proair Hfa] 2 puff INHALATION RT-QID PRN 01/13/18 10/07/20 Butalb/Acetaminophen/Caffeine 1 tab PO Q8H PRN 01/13/18 10/07/20 [Fioricet 50-325-40] Fluticasone Propionate [Flovent 1 puff INHALATION RT-BID 01/13/18 10/07/20 Hfa 110 mcg] gemfibroziL [Lopid] 600 mg PO BID 01/13/18 10/07/20 Gabapentin [Neurontin] 300 mg PO TID 03/11/18 10/07/20 Gabapentin [Neurontin] 600 mg PO TID 09/16/19 10/07/20 Omeprazole [PriLOSEC] 40 mg PO DAILY 09/16/19 10/07/20 rOPINIRole HCL [Requip] 2 mg PO HS 09/16/19 10/07/20 traZODone HCL 300 mg PO HS 09/16/19 10/07/20 hydrOXYzine pamoate 25 mg PO BID 04/13/20 10/07/20 Cyclobenzaprine [Flexeril] 10 mg PO TID PRN 08/16/20 10/07/20 Fentanyl/Bupivcaine Pain Pump 1 dose INTRATHECA CONTINUOUS 08/16/20 10/07/20 Ibuprofen [Motrin] 600 mg PO TID PRN 10/07/20 10/07/20 diphenhydrAMINE [Benadryl] 50 mg PO DAILY PRN 10/07/20 10/07/20 Previous Rx's Medication Instructions Recorded Erythromycin Ophth Oint [Romycin 1 applic RIGHT EYE QID #1 bottle 10/03/20 Ophth Oint] Ondansetron Odt [Zofran Odt] 4 mg PO Q8HR PRN #14 tab 10/16/20 Ondansetron Odt [Zofran Odt] 4 mg PO Q8HR PRN #10 tab 06/21/21 predniSONE [Deltasone] 20 mg PO BID #10 tab 09/08/21 Cephalexin [Keflex] 500 mg PO Q8HR 7 Days #21 cap 11/25/21 Fluconazole [Diflucan] 150 mg PO ONCE #1 tab 11/25/21 Amoxic-Pot Clav 875-125Mg 1 tab PO Q12HR 7 Days #14 tab 05/02/23 [Augmentin 875-125] Allergies Allergy/AdvReac Type Severity Reaction Status Date / Time azithromycin Allergy Rash/Hives Verified 07/14/23 21:37 [From Zithromax Z-Mehrdad] cimetidine [From Tagamet] Allergy Rash/Hives Verified 07/14/23 21:37 codeine Allergy Nausea & Verified 07/14/23 21:37 Vomiting ether [Ether] Allergy Anaphylaxis Verified 07/14/23 21:37 Fish Containing Products Allergy Anaphylaxis Verified 07/14/23 21:37 [Fish] ibuprofen [From Motrin] Allergy Rash/Hives Verified 07/14/23 21:37 morphine Allergy Unknown Verified 07/14/23 21:37 ziprasidone HCl [From Geodon] Allergy Extrapyramidal Verified 07/14/23 21:37 Symptoms ciprofloxacin [From Cipro] AdvReac Rash/Hives Verified 07/14/23 21:37 fluphenazine HCl AdvReac Extrapyramidal Verified 07/14/23 21:37 [From Prolixin] Symptoms haloperidol [From Haldol] AdvReac Extrapyramidal Verified 07/14/23 21:37 Symptoms Sulfa (Sulfonamide AdvReac Nausea & Verified 07/14/23 21:37 Antibiotics) Vomiting Review of Systems ROS Statement: Those systems with pertinent positive or pertinent negative responses have been documented in the HPI. ROS Other: All systems not noted in ROS Statement are negative. Past Medical History Past Medical History: Asthma, GERD/Reflux, Hyperlipidemia, Musculoskeletal Disorder, Neurologic Disorder, Osteoarthritis (OA), Seizure Disorder Additional Past Medical History / Comment(s): RSD-DERIC FEET, INTERSTITIAL CYSTITIS, BRONCHITIS, HEMORRHOIDS,MIGRAINES, INSOMNIA. VERTIGO, last seizure 4 years ago, complex regional pain syndrome, RLS. History of Any Multi-Drug Resistant Organisms: MRSA Date of last positivie culture/infection: 04/20/15 MDRO Source:: Left Axilla Past Surgical History: Adenoidectomy, Back Surgery, Cholecystectomy, Orthopedic Surgery, Tonsillectomy Additional Past Surgical History / Comment(s): bilateral foot surgery d/t rsd, numerous pain clinic procedures, nerve stimulator in back to tx RSD placed in Nov 11 2015, pain pump placement, replacement of stimulator 06/2021 Past Anesthesia/Blood Transfusion Reactions: Previous Problems w/ Anesthesia Additional Past Anesthesia/Blood Transfusion Reaction / Comment(s): Pt recieved blood when she was 2 yrs old after tonsillectomy. WHEN BABY HEART STOPPED TWICE- PT STATED SHE WAS ALLERGIC TO ETHER. Past Psychological History: Anxiety, Bipolar, Depression, PTSD Smoking Status: Never smoker Past Alcohol Use History: None Reported Past Drug Use History: Marijuana - Past Family History Father History Unknown: Yes Family Medical History: Diabetes Mellitus Mother Family Medical History: Cancer, CVA/TIA, Diabetes Mellitus, Myocardial Infarction (SD) Additional Family Medical History / Comment(s): Mother has had 5 CVAs, 3 MIs and UTERINE CANCER General Exam Limitations: no limitations General appearance: alert, in no apparent distress Head exam: Present: atraumatic, normocephalic, normal inspection Eye exam: Present: normal appearance, PERRL, EOMI. Absent: scleral icterus, conjunctival injection, periorbital swelling ENT exam: Present: normal exam, mucous membranes moist Neck exam: Present: normal inspection. Absent: tenderness, meningismus, lymphadenopathy Respiratory exam: Present: normal lung sounds bilaterally. Absent: respiratory distress, wheezes, rales, rhonchi, stridor Cardiovascular Exam: Present: regular rate, normal rhythm, normal heart sounds. Absent: systolic murmur, diastolic murmur, rubs, gallop, clicks GI/Abdominal exam: Present: soft, normal bowel sounds. Absent: distended, tenderness, guarding, rebound, rigid Extremities exam: Present: normal inspection, full ROM, normal capillary refill. Absent: tenderness, pedal edema, joint swelling, calf tenderness Back exam: Present: normal inspection Neurological exam: Present: alert, oriented X3, CN II-XII intact Psychiatric exam: Present: normal affect, normal mood Skin exam: Present: warm, dry, intact, normal color. Absent: rash Course Vital Signs 07/07/23 07/07/23 19:31 20:42 Temperature 97.7 F 98 F Pulse Rate 105 H 102 H Respiratory 18 18 Rate Blood Pressure 128/85 116/84 O2 Sat by Pulse 96 97 Oximetry - Reevaluation(s) Reevaluation #1: 07/07/23 20:22 Record is reviewed Reevaluation #2: 07/07/23 Patient symptoms are improved here in the ER Reevaluation #3: 07/07/23 Patient informed of results and questions answered Reevaluation #4: Was pt. sent in by a medical professional or institution (, PA, TELECOMMUNICATION LINES REPAIRER, urgent care, hospital, or fpc...) When possible be specific @ -no Did you speak to anyone other than the patient for history (EMS, parent, family, police, friend...)? What history was obtained from this source @ -no Did you review nursing and triage notes (agree or disagree)? Why? @ -agree Are old charts reviewed (outside hosp., previous admission, EMS record, old EKG, old radiological studies, urgent care reports/EKG's, fpc records)? Report findings @ -yes Differential Diagnosis (chest pain, altered mental status, abdominal pain women, abdominal pain men, vaginal bleeding, weakness, fever, dyspnea, syncope, headache, dizziness, GI bleed, back pain, seizure, CVA, palpatations, mental health, musculoskeletal)? @ -prior EKG interpreted by me (3pts min.). @ -no X-rays interpreted by me (1pt min.). @ -no CT interpreted by me (1pt min.). @ -no U/S interpreted by me (1pt. min.). @ -no What testing was considered but not performed or refused? (CT, X-rays, U/S, labs)? Why? @ -none What meds were considered but not given or refused? Why? @ -none Did you discuss the management of the patient with other professionals (professionals i.e. , PA, TELECOMMUNICATION LINES REPAIRER, lab, RT, psych nurse, social worker health services, classified advertising supervisor, teacher, protective officer, disability case manager)? Give summary @ -no Was smoking cessation discussed for >3mins.? @ -no Was critical care preformed (if so, how long)? @ -no Were there social determinants of health that impacted care today? How? (Homelessness, low income, unemployed, alcoholism, drug addiction, transportation, low edu. Level, literacy, decrease access to med. care, skilled nursing, rehab)? @ -none Was there de-escalation of care discussed even if they declined (Discuss DNR or withdrawal of care, Hospice)? DNR status @ -no What co-morbidities impacted this encounter? (DM, HTN, Smoking, COPD, CAD, Cancer, CVA, ARF, Chemo, Hep., AIDS, mental health diagnosis, sleep apnea, morbid obesity)? @ -none Was patient admitted / discharged? Hospital course, mention meds given and route, prescriptions, significant lab abnormalities, going to OR and other pertinent info. @ - 37 female to the ER for evaluation of pain chronic pain. Patient has no acute findings here in the ER and can be discharged home pain is controlled Discharge Undiagnosed new problem with uncertain prognosis? @ -no Drug Therapy requiring intensive monitoring for toxicity (Heparin, Nitro, Insulin, Cardizem)? @ -no Were any procedures done? @ -no Diagnosis/symptom? @ -Chronic pain Acute, or Chronic, or Acute on Chronic? @ -Acute Uncomplicated (without systemic symptoms) or Complicated (systemic symptoms)? @ -Complicated Side effects of treatment? @ -no Exacerbation, Progression, or Severe Exacerbation? @ -exacerbation Poses a threat to life or bodily function? How? (Chest pain, USA, SD, pneumonia, PE, COPD, DKA, ARF, appy, cholecystitis, CVA, Diverticulitis, Homicidal, Suicidal, threat to staff... and all critical care pts) @ -no Medical Decision Making - Medical Decision Making 37 female to the ER for evaluation of pain chronic pain. Patient has no acute findings here in the ER and can be discharged home pain is controlled Disposition Clinical Impression: Chronic pain syndrome Disposition: HOME SELF-CARE Condition: Good Instructions (If sedation given, give patient instructions): Chronic Pain (ED) Is patient prescribed a controlled substance at d/c from ED?: No Referrals: None,Stated [Primary Care Provider] - 1-2 days Time of Disposition: 20:20
[2023-07-07 20:26] VITALS: RESP 18
[2023-07-07] MEDS: diphenhydrAMINE 50 MG CAP PO STA (20:31)
[2023-07-07] MEDS: HYDROmorphone 1 MG/ML 1 ML SYRINGE IM STA (20:33)
[2023-07-07] MEDS: PROCHLORPERAZINE 10 MG TAB PO STA (20:36)
[2023-07-07 21:04] VITALS: BP 116/84; PULSE 102; TEMP 98
== END 2023-07-07 21:14 | disposition home or self-care (01) ==
LOC: EC 19:25
DX: G89.4 Chronic pain syndrome (principal); M79.604 Pain in right leg; M79.605 Pain in left leg; F12.90 Cannabis use, unspecified, uncomplicated; Z88.6 Allergy status to analgesic agent; Z88.5 Allergy status to narcotic agent; Z88.8 Allergy status to other drugs, medicaments and biological substances; Z88.2 Allergy status to sulfonamides; Z91.013 Allergy to seafood
CPT/HCPCS: 99283; 96372; S0183; J1170

== ENCOUNTER 2023-07-14 21:01 | Emergency (ER) | payer MEDICARE, OTHER ==
[2023-07-14 21:51] VITALS: TEMP 98.6
--- NOTE | 2023-07-14 21:59 | ED ---
Headache HPI - General Source: patient, RN notes reviewed Mode of arrival: ambulatory Limitations: no limitations <Lissa Grayson - Last Filed: 07/14/23 21:57> <Jose Maddox - Last Filed: 07/15/23 01:41> - General Chief Complaint: Headache Stated Complaint: headache Time Seen by Provider: 07/14/23 21:10 - History of Present Illness Initial Comments: Saniya noterosalia is a 37-year-old female with complaint of a migraine. Patient has known migraines and takes Fioricet at home which has resulted in minimal relief. Patient has been endorsing nausea and vomiting as well. (Lissa Grayson) Dictation was produced using [employer] dictation software. please excuse any grammatical, word or spelling errors. Chief Complaint: 37-year-old female presents with acute on chronic headache History of Present Illness: Patient 37-year-old female well-known to emergency department for acute on chronic headaches. Patient deals with what she describes as debilitating headaches. She apparently does follow-up with outpatient headache specialist. Patient states she has been doing pretty well except for the last 24 hours she has had what she describes as severe headache. States that it feels like her usual headache attacks. She feels like it is to her frontal area. She does report sensitivity to light. Denies any numbness tingling paresthesias to the arms or legs. The ROS documented in this emergency department record has been reviewed and confirmed by me. Those systems with pertinent positive or negative responses have been documented in the HPI. All other systems are other negative and/or noncontributory. (Jose Maddox) - Related Data Home Medications Medication Instructions Recorded Confirmed Medroxyprogesterone Acetate 150 mg IM Q84D 11/22/13 10/07/20 [Depo-Provera] rOPINIRole HCL [Requip] 1 mg PO BID@0900,1200 11/22/13 10/07/20 Pentosan Polysulfate Sodium 100 mg PO DAILY 02/10/15 10/07/20 [Elmiron] HYDROcodone/APAP 7.5-325MG [[place] 1 tab PO BID 07/20/16 10/07/20 7.5-325] Paliperidone IM Pt Own [Invega 117 mg IM Q28D 07/20/16 10/07/20 Sustenna] amantadine HCL [Symmetrel] 100 mg PO BID 11/21/16 10/07/20 Albuterol Sulfate [Proair Hfa] 2 puff INHALATION RT-QID PRN 01/13/18 10/07/20 Butalb/Acetaminophen/Caffeine 1 tab PO Q8H PRN 01/13/18 10/07/20 [Fioricet 50-325-40] Fluticasone Propionate [Flovent 1 puff INHALATION RT-BID 01/13/18 10/07/20 Hfa 110 mcg] gemfibroziL [Lopid] 600 mg PO BID 01/13/18 10/07/20 Gabapentin [Neurontin] 300 mg PO TID 03/11/18 10/07/20 Gabapentin [Neurontin] 600 mg PO TID 09/16/19 10/07/20 Omeprazole [PriLOSEC] 40 mg PO DAILY 09/16/19 10/07/20 rOPINIRole HCL [Requip] 2 mg PO HS 09/16/19 10/07/20 traZODone HCL 300 mg PO HS 09/16/19 10/07/20 hydrOXYzine pamoate 25 mg PO BID 04/13/20 10/07/20 Cyclobenzaprine [Flexeril] 10 mg PO TID PRN 08/16/20 10/07/20 Fentanyl/Bupivcaine Pain Pump 1 dose INTRATHECA CONTINUOUS 08/16/20 10/07/20 Ibuprofen [Motrin] 600 mg PO TID PRN 10/07/20 10/07/20 diphenhydrAMINE [Benadryl] 50 mg PO DAILY PRN 10/07/20 10/07/20 Previous Rx's Medication Instructions Recorded Erythromycin Ophth Oint [Romycin 1 applic RIGHT EYE QID #1 bottle 10/03/20 Ophth Oint] Ondansetron Odt [Zofran Odt] 4 mg PO Q8HR PRN #14 tab 10/16/20 Ondansetron Odt [Zofran Odt] 4 mg PO Q8HR PRN #10 tab 06/21/21 predniSONE [Deltasone] 20 mg PO BID #10 tab 09/08/21 Cephalexin [Keflex] 500 mg PO Q8HR 7 Days #21 cap 11/25/21 Fluconazole [Diflucan] 150 mg PO ONCE #1 tab 11/25/21 Amoxic-Pot Clav 875-125Mg 1 tab PO Q12HR 7 Days #14 tab 05/02/23 [Augmentin 875-125] Allergies Allergy/AdvReac Type Severity Reaction Status Date / Time azithromycin Allergy Rash/Hives Verified 07/14/23 21:37 [From Zithromax Z-Mehrdad] cimetidine [From Tagamet] Allergy Rash/Hives Verified 07/14/23 21:37 codeine Allergy Nausea & Verified 07/14/23 21:37 Vomiting ether [Ether] Allergy Anaphylaxis Verified 07/14/23 21:37 Fish Containing Products Allergy Anaphylaxis Verified 07/14/23 21:37 [Fish] ibuprofen [From Motrin] Allergy Rash/Hives Verified 07/14/23 21:37 morphine Allergy Unknown Verified 07/14/23 21:37 ziprasidone HCl [From Geodon] Allergy Extrapyramidal Verified 07/14/23 21:37 Symptoms ciprofloxacin [From Cipro] AdvReac Rash/Hives Verified 07/14/23 21:37 fluphenazine HCl AdvReac Extrapyramidal Verified 07/14/23 21:37 [From Prolixin] Symptoms haloperidol [From Haldol] AdvReac Extrapyramidal Verified 07/14/23 21:37 Symptoms Sulfa (Sulfonamide AdvReac Nausea & Verified 07/14/23 21:37 Antibiotics) Vomiting Review of Systems ROS Other: All systems not noted in ROS Statement are negative. <Lissa Grayson - Last Filed: 07/14/23 21:57> ROS Other: All systems not noted in ROS Statement are negative. <Jose Maddox - Last Filed: 07/15/23 01:41> ROS Statement: Those systems with pertinent positive or pertinent negative responses have been documented in the HPI. Past Medical History Past Medical History: Asthma, GERD/Reflux, Hyperlipidemia, Musculoskeletal Disorder, Neurologic Disorder, Osteoarthritis (OA), Seizure Disorder Additional Past Medical History / Comment(s): RSD-DERIC FEET, INTERSTITIAL CYSTITIS, BRONCHITIS, HEMORRHOIDS,MIGRAINES, INSOMNIA. VERTIGO, last seizure 4 years ago, complex regional pain syndrome, RLS. History of Any Multi-Drug Resistant Organisms: MRSA Date of last positivie culture/infection: 04/20/15 MDRO Source:: Left Axilla Past Surgical History: Adenoidectomy, Back Surgery, Cholecystectomy, Orthopedic Surgery, Tonsillectomy Additional Past Surgical History / Comment(s): bilateral foot surgery d/t rsd, numerous pain clinic procedures, nerve stimulator in back to tx RSD placed in Nov 11 2015, pain pump placement, replacement of stimulator 06/2021 Past Anesthesia/Blood Transfusion Reactions: Previous Problems w/ Anesthesia Additional Past Anesthesia/Blood Transfusion Reaction / Comment(s): Pt recieved blood when she was 2 yrs old after tonsillectomy. WHEN BABY HEART STOPPED TWICE- PT STATED SHE WAS ALLERGIC TO ETHER. Past Psychological History: Anxiety, Bipolar, Depression, PTSD Smoking Status: Never smoker Past Alcohol Use History: None Reported Past Drug Use History: Marijuana - Past Family History Father History Unknown: Yes Family Medical History: Diabetes Mellitus Mother Family Medical History: Cancer, CVA/TIA, Diabetes Mellitus, Myocardial Infarction ([place]) Additional Family Medical History / Comment(s): Mother has had 5 CVAs, 3 MIs and UTERINE CANCER <Lissa Grayson - Last Filed: 07/14/23 21:57> General Exam Limitations: no limitations <Lissa Grayson - Last Filed: 07/14/23 21:57> <Jose Maddox - Last Filed: 07/15/23 01:41> - General Exam Comments Initial Comments: Visual Physical Exam Vital signs reviewed General: Well-appearing, nontoxic, no acute distress. Head: Normocephalic, atraumatic Eyes: PERRLA, EOMI ENT: Airway patent Chest: Nonlabored breathing Skin: No visual rash, normal skin tone Neuro: Alert and oriented 3 Musculoskeletal: No gross abnormalities (Lissa Grayson) PHYSICAL EXAM: General Impression: Alert and oriented x3, not in acute distress HEENT: Normocephalic atraumatic, extra-ocular movements intact, pupils equal and reactive to light bilaterally, mucous membranes moist. Cardiovascular: Heart regular rate and rhythm Chest: Able to complete full sentences, no retractions, no tachypnea Abdomen: abdomen soft, non-tender, non-distended, no organomegaly Musculoskeletal: Pulses present and equal in all extremities, no peripheral edema Motor: no focal deficits noted Neurological: CN II-XII grossly intact, no focal motor or sensory deficits noted Skin: Intact with no visualized rashes Psych: Normal affect and mood (Jose Maddox) Course Vital Signs 07/14/23 21:37 Temperature 98.6 F Pulse Rate 125 H Respiratory 20 Rate Blood Pressure 142/100 O2 Sat by Pulse 96 Oximetry Medical Decision Making <Lissa Grayson - Last Filed: 07/14/23 21:57> <Jose Maddox - Last Filed: 07/15/23 01:41> - Medical Decision Making I completed the quick note portion of this chart signed Lissa Grayson PA-C (Lissa Grayson) Was pt. sent in by a medical professional or institution ([facility], VENEER LATHE OPERATOR, urgent care, hospital, or correction...) When possible be specific @ -No Did you speak to anyone other than the patient for history (EMS, parent, family, police, friend...)? What history was obtained from this source @ -No Did you review nursing and triage notes (agree or disagree)? Why? @ -I reviewed and agree with nursing and triage notes Were old charts reviewed (outside hosp., previous admission, EMS record, old EKG, old radiological studies, urgent care reports/EKG's, correction records)? Report findings @ -No old charts were reviewed Differential Diagnosis (chest pain, altered mental status, abdominal pain women, abdominal pain men, vaginal bleeding, musculoskeletal, weakness, fever, dyspnea, syncope, headache, dizziness, GI bleed, back pain, seizure, CVA, palpatations, mental health)? @ -Differential Headache: Migraine, tension, cluster, carbon monoxide, central venous thrombosis, pension karma temporal arteritis, acute closure glaucoma, intercranial hemorrhage, mastoiditis, sinusitis, head injury, this is not meant to be an all-inclusive list. EKG interpreted by me (3pts min.). @ -None done X-rays interpreted by me (1pt min.). @ -None done CT interpreted by me (1pt min.). @ -None done U/S interpreted by me (1pt. min.). @ -None done What testing was considered but not performed or refused? (CT, X-rays, U/S, labs)? Why? @ -None What meds were considered but not given or refused? Why? @ -None Did you discuss the management of the patient with other professionals (professionals i.e. , PA, VENEER LATHE OPERATOR, lab, RT, psych nurse, healthcare social worker, nail professional, teacher, executive vice president and chief financial officer, upper caser)? Give summary @ -No Was smoking cessation discussed for >3mins.? @ -No Was critical care preformed (if so, how long)? @ -No Were there social determinants of health that impacted care today? How? (Homelessness, low income, unemployed, alcoholism, drug addiction, transportation, low edu. Level, literacy, decrease access to med. care, fpc, rehab)? @ -No Was there de-escalation of care discussed even if they declined (Discuss DNR or withdrawal of care, Hospice)? DNR status @ -No What co-morbidities impacted this encounter? (DM, HTN, Smoking, COPD, CAD, Cancer, CVA, ARF, Chemo, Hep., AIDS, mental health diagnosis, sleep apnea, morbid obesity)? @ -None Was patient admitted / discharged? Hospital course, mention meds given and route, prescriptions, significant lab abnormalities, going to OR and other pertinent info. @ -37-year-old female with acute on chronic headaches. Vital signs stable. Patient neurologically intact. Patient given headache cocktail. She describes his headache as her usual headaches. Patient given headache cocktail and symptoms improved. Patient discharged. Undiagnosed new problem with uncertain prognosis? @ -No Drug Therapy requiring intensive monitoring for toxicity (Heparin, Nitro, Insulin, Cardizem)? @ -No Were any procedures done? @ -No Diagnosis/symptom? Acute, or Chronic, or Acute on Chronic? Uncomplicated (without systemic symptoms) or Complicated (systemic symptoms)? @ -Acute on chronic headache Side effects of treatment? @ -No Exacerbation, Progression, or Severe Exacerbation? @ -No Poses a threat to life or bodily function? How? (Chest pain, USA, [place], pneumonia, PE, COPD, DKA, ARF, appy, cholecystitis, CVA, Diverticulitis, Homicidal, Suicidal, threat to staff... and all critical care pts) @ -No (Jose Maddox) - Lab Data Lab Results 07/14/23 07/14/23 Range/Units 22:16 22:16 Influenza Type A (PCR) Not Detected (Not Detectd) Influenza Type B (PCR) Not Detected (Not Detectd) RSV (PCR) Not Detected (Not Detectd) SARS-CoV-2 (PCR) Not Detected (Not Detectd) Group A Strep (PCR) NOT DETECTED (Not Detectd) Disposition <Lissa Grayson - Last Filed: 07/14/23 21:57> Is patient prescribed a controlled substance at d/c from ED?: No Time of Disposition: 01:41 <Jose Maddox - Last Filed: 07/15/23 01:41> Clinical Impression: Headache Disposition: HOME SELF-CARE Condition: Good Instructions (If sedation given, give patient instructions): Acute Headache (ED) Referrals: None,Stated [Primary Care Provider] - 1-2 days
[2023-07-15] MEDS: diphenhydrAMINE 50 MG/ML 1 ML VIAL IVP STA (00:43)
[2023-07-15] MEDS: ONDANSETRON 4 MG/2 ML VIAL IVP STA (00:43)
[2023-07-15] MEDS: HYDROmorphone 0.5 MG/0.5 ML SYRINGE IVP STA (00:43)
[2023-07-15] MEDS: KETOROLAC 15 MG/ML 1 ML VIAL IVP STA (00:44)
[2023-07-15] MEDS: SODIUM CHLORIDE 0.9% 1,000 ML IV STA (00:45)
[2023-07-15 02:24] VITALS: BP 117/87; PULSE 94; RESP 18
== END 2023-07-15 01:43 | disposition home or self-care (01) ==
LOC: EC 21:01
DX: R51.9 Headache, unspecified (principal); F12.90 Cannabis use, unspecified, uncomplicated; Z88.1 Allergy status to other antibiotic agents; Z88.2 Allergy status to sulfonamides; Z88.5 Allergy status to narcotic agent; Z88.6 Allergy status to analgesic agent; Z88.8 Allergy status to other drugs, medicaments and biological substances; Z91.013 Allergy to seafood
CPT/HCPCS: 87636; 87651; 96361; 96374; 96375; 99284

== ENCOUNTER 2023-07-23 23:27 | Emergency (ER) | payer MEDICARE, OTHER ==
[2023-07-24 00:33] VITALS: TEMP 98
[2023-07-24] MEDS: HYDROmorphone 1 MG/ML 1 ML SYRINGE IM STA (01:08)
[2023-07-24] MEDS: ONDANSETRON 4 MG/2 ML VIAL IM STA ×2 (01:08→02:06)
[2023-07-24] MEDS: ACETAMINOPHEN TAB 500 MG TAB PO STA (01:11)
--- NOTE | 2023-07-24 01:59 | ED ---
Extremity Problem HPI - General Chief complaint: Extremity Problem,Nontraumatic Stated complaint: collapse, leg weakness Time Seen by Provider: 07/23/23 23:55 Source: patient Mode of arrival: wheelchair Limitations: no limitations - History of Present Illness Initial comments: 37-year-old female well-known to our department with complaints of chronic pain presenting to the ED with complaints of chronic bilateral lower extremity pain. No recent injury or trauma. Reports that she took her pain meds at home which did not help prompting presentation to the ED for further evaluation. No chest pains or shortness of breath. No fever or chills. No other complaints at this time. - Related Data Home Medications Medication Instructions Recorded Confirmed Medroxyprogesterone Acetate 150 mg IM Q84D 11/22/13 10/07/20 [Depo-Provera] rOPINIRole HCL [Requip] 1 mg PO BID@0900,1200 11/22/13 10/07/20 Pentosan Polysulfate Sodium 100 mg PO DAILY 02/10/15 10/07/20 [Elmiron] HYDROcodone/APAP 7.5-325MG [[place] 1 tab PO BID 07/20/16 10/07/20 7.5-325] Paliperidone IM Pt Own [Invega 117 mg IM Q28D 07/20/16 10/07/20 Sustenna] amantadine HCL [Symmetrel] 100 mg PO BID 11/21/16 10/07/20 Albuterol Sulfate [Proair Hfa] 2 puff INHALATION RT-QID PRN 01/13/18 10/07/20 Butalb/Acetaminophen/Caffeine 1 tab PO Q8H PRN 01/13/18 10/07/20 [Fioricet 50-325-40] Fluticasone Propionate [Flovent 1 puff INHALATION RT-BID 01/13/18 10/07/20 Hfa 110 mcg] gemfibroziL [Lopid] 600 mg PO BID 01/13/18 10/07/20 Gabapentin [Neurontin] 300 mg PO TID 03/11/18 10/07/20 Gabapentin [Neurontin] 600 mg PO TID 09/16/19 10/07/20 Omeprazole [PriLOSEC] 40 mg PO DAILY 09/16/19 10/07/20 rOPINIRole HCL [Requip] 2 mg PO HS 09/16/19 10/07/20 traZODone HCL 300 mg PO HS 09/16/19 10/07/20 hydrOXYzine pamoate 25 mg PO BID 04/13/20 10/07/20 Cyclobenzaprine [Flexeril] 10 mg PO TID PRN 08/16/20 10/07/20 Fentanyl/Bupivcaine Pain Pump 1 dose INTRATHECA CONTINUOUS 08/16/20 10/07/20 Ibuprofen [Motrin] 600 mg PO TID PRN 10/07/20 10/07/20 diphenhydrAMINE [Benadryl] 50 mg PO DAILY PRN 10/07/20 10/07/20 Previous Rx's Medication Instructions Recorded Erythromycin Ophth Oint [Romycin 1 applic RIGHT EYE QID #1 bottle 10/03/20 Ophth Oint] Ondansetron Odt [Zofran Odt] 4 mg PO Q8HR PRN #14 tab 10/16/20 Ondansetron Odt [Zofran Odt] 4 mg PO Q8HR PRN #10 tab 06/21/21 predniSONE [Deltasone] 20 mg PO BID #10 tab 09/08/21 Cephalexin [Keflex] 500 mg PO Q8HR 7 Days #21 cap 11/25/21 Fluconazole [Diflucan] 150 mg PO ONCE #1 tab 11/25/21 Amoxic-Pot Clav 875-125Mg 1 tab PO Q12HR 7 Days #14 tab 05/02/23 [Augmentin 875-125] Allergies Allergy/AdvReac Type Severity Reaction Status Date / Time azithromycin Allergy Rash/Hives Verified 07/23/23 23:42 [From Zithromax Z-Mehrdad] cimetidine [From Tagamet] Allergy Rash/Hives Verified 07/23/23 23:42 codeine Allergy Nausea & Verified 07/23/23 23:42 Vomiting ether [Ether] Allergy Anaphylaxis Verified 07/23/23 23:42 Fish Containing Products Allergy Anaphylaxis Verified 07/23/23 23:42 [Fish] ibuprofen [From Motrin] Allergy Rash/Hives Verified 07/23/23 23:42 morphine Allergy Unknown Verified 07/23/23 23:42 ziprasidone HCl [From Geodon] Allergy Extrapyramidal Verified 07/23/23 23:42 Symptoms ciprofloxacin [From Cipro] AdvReac Rash/Hives Verified 07/23/23 23:42 fluphenazine HCl AdvReac Extrapyramidal Verified 07/23/23 23:42 [From Prolixin] Symptoms haloperidol [From Haldol] AdvReac Extrapyramidal Verified 07/23/23 23:42 Symptoms Sulfa (Sulfonamide AdvReac Nausea & Verified 07/23/23 23:42 Antibiotics) Vomiting Review of Systems ROS Statement: Those systems with pertinent positive or pertinent negative responses have been documented in the HPI. ROS Other: All systems not noted in ROS Statement are negative. Past Medical History Past Medical History: Asthma, GERD/Reflux, Hyperlipidemia, Musculoskeletal Disorder, Neurologic Disorder, Osteoarthritis (OA), Seizure Disorder Additional Past Medical History / Comment(s): RSD-DERIC FEET, INTERSTITIAL CYSTITIS, BRONCHITIS, HEMORRHOIDS,MIGRAINES, INSOMNIA. VERTIGO, last seizure 4 years ago, complex regional pain syndrome, RLS. History of Any Multi-Drug Resistant Organisms: MRSA Date of last positivie culture/infection: 04/20/15 MDRO Source:: Left Axilla Past Surgical History: Adenoidectomy, Back Surgery, Cholecystectomy, Orthopedic Surgery, Tonsillectomy Additional Past Surgical History / Comment(s): bilateral foot surgery d/t rsd, numerous pain clinic procedures, nerve stimulator in back to tx RSD placed in Nov 11 2015, pain pump placement, replacement of stimulator 06/2021 Past Anesthesia/Blood Transfusion Reactions: Previous Problems w/ Anesthesia Additional Past Anesthesia/Blood Transfusion Reaction / Comment(s): Pt recieved blood when she was 2 yrs old after tonsillectomy. WHEN BABY HEART STOPPED TWICE- PT STATED SHE WAS ALLERGIC TO ETHER. Past Psychological History: Anxiety, Bipolar, Depression, PTSD Smoking Status: Never smoker Past Alcohol Use History: None Reported Past Drug Use History: Marijuana - Past Family History Father History Unknown: Yes Family Medical History: Diabetes Mellitus Mother Family Medical History: Cancer, CVA/TIA, Diabetes Mellitus, Myocardial Infarction ([place]) Additional Family Medical History / Comment(s): Mother has had 5 CVAs, 3 MIs and UTERINE CANCER General Exam Limitations: no limitations General appearance: alert Eye exam: Present: normal appearance Neck exam: Present: normal inspection Respiratory exam: Present: normal lung sounds bilaterally Cardiovascular Exam: Present: regular rate GI/Abdominal exam: Present: soft Extremities exam: Present: normal inspection, other (DP/PT pulses intact.) Neurological exam: Present: alert, oriented X3 Skin exam: Present: warm, dry Course Vital Signs 07/23/23 23:39 Temperature 98 F Pulse Rate 55 L Respiratory 18 Rate Blood Pressure 154/120 O2 Sat by Pulse 94 L Oximetry Medical Decision Making - Medical Decision Making Was pt. sent in by a medical professional or institution (, PA, CARBON COATING MACHINE OPERATOR, urgent care, hospital, or long-term...) When possible be specific @ -No Did you speak to anyone other than the patient for history (EMS, parent, family, police, friend...)? What history was obtained from this source @ -No Did you review nursing and triage notes (agree or disagree)? Why? @ -I reviewed and agree with nursing and triage notes Were old charts reviewed (outside hosp., previous admission, EMS record, old EKG, old radiological studies, urgent care reports/EKG's, long-term records)? Report findings @ -No old charts were reviewed Differential Diagnosis (chest pain, altered mental status, abdominal pain women, abdominal pain men, vaginal bleeding, weakness, fever, dyspnea, syncope, headache, dizziness, GI bleed, back pain, seizure, CVA, palpatations, mental health, musculoskeletal)? @ -Differential Musculoskeletal Muscular strain, contusion, ligament sprain, fracture, arthritis, septic arthritis, bursitis, cellulitis, muscle spasm, nerve compression, DVT, arterial occlusion, herpes zoster, electrolyte abnormality, tumor.... This is not meant to be in all inclusive list EKG interpreted by me (3pts min.). @ -As above X-rays interpreted by me (1pt min.). @ -None done CT interpreted by me (1pt min.). @ -None done U/S interpreted by me (1pt. min.). @ -None done What testing was considered but not performed or refused? (CT, X-rays, U/S, labs)? Why? @ -None What meds were considered but not given or refused? Why? @ -None Did you discuss the management of the patient with other professionals (professionals i.e. , CALLUM, CARBON COATING MACHINE OPERATOR, lab, RT, psych nurse, social media project manager, swing driver, teacher, telecommunications officer, piano case maker)? Give summary @ -No Was smoking cessation discussed for >3mins.? @ -No Was critical care preformed (if so, how long)? @ -No Were there social determinants of health that impacted care today? How? (Homelessness, low income, unemployed, alcoholism, drug addiction, transportation, low edu. Level, literacy, decrease access to med. care, [facility], rehab)? @ -No Was there de-escalation of care discussed even if they declined (Discuss DNR or withdrawal of care, Hospice)? DNR status @ -No What co-morbidities impacted this encounter? (DM, HTN, Smoking, COPD, CAD, Cancer, CVA, ARF, Chemo, Hep., AIDS, mental health diagnosis, sleep apnea, morbid obesity)? @ -Chronic pain Was patient admitted / discharged? Hospital course, mention meds given and route, prescriptions, significant lab abnormalities, going to OR and other pertinent info. @ -Discharge 37-year-old female presents to the ED with complaints of bilateral lower extremity pain which is chronic in nature. Despite taking her home meds reports pain is uncontrolled prompting presentation to the ED for further evaluation. Patient provided analgesics here and discharged home in stable condition and advised follow-up with her PCP. Undiagnosed new problem with uncertain prognosis? @ -No Drug Therapy requiring intensive monitoring for toxicity (Heparin, Nitro, Insulin, Cardizem)? @ -No Were any procedures done? @ -No Diagnosis/symptom? @ -lower extremity pain Acute, or Chronic, or Acute on Chronic? @ -Acute on chronic Uncomplicated (without systemic symptoms) or Complicated (systemic symptoms)? @ -Uncomplicated Side effects of treatment? @ -No Exacerbation, Progression, or Severe Exacerbation? @ -No Poses a threat to life or bodily function? How? (Chest pain, [place], [place], pneumonia, PE, COPD, DKA, ARF, appy, cholecystitis, CVA, Diverticulitis, Homicidal, Suicidal, threat to staff... and all critical care pts) @ -No Disposition Clinical Impression: Leg pain, bilateral Disposition: HOME SELF-CARE Condition: Good Additional Instructions: Please return to the Emergency Department if symptoms worsen or any other concerns. Please follow-up with your primary care provider. Is patient prescribed a controlled substance at d/c from ED?: No Referrals: None,Stated [Primary Care Provider] - 1-2 days Time of Disposition: 02:01
[2023-07-24] MEDS: HYDROmorphone 0.5 MG/0.5 ML SYRINGE IM STA (02:04)
[2023-07-24 02:45] VITALS: BP 126/83; PULSE 81; RESP 17
== END 2023-07-24 02:17 | disposition home or self-care (01) ==
LOC: EC 23:27
DX: G89.29 Other chronic pain (principal); M79.604 Pain in right leg; M79.605 Pain in left leg; F12.90 Cannabis use, unspecified, uncomplicated; Z88.1 Allergy status to other antibiotic agents; Z88.5 Allergy status to narcotic agent; Z91.013 Allergy to seafood; Z88.6 Allergy status to analgesic agent; Z88.8 Allergy status to other drugs, medicaments and biological substances
CPT/HCPCS: 99283; 96372 ×4; J2405; J1170 ×2

== ENCOUNTER 2023-08-06 01:09 | Emergency (ER) | payer MEDICARE, OTHER ==
[2023-08-06 01:35] VITALS: RESP 18; TEMP 98.6
[2023-08-06] MEDS: KETOROLAC 15 MG/ML 1 ML VIAL IM STA (01:52)
[2023-08-06] MEDS: diphenhydrAMINE 50 MG/ML 1 ML VIAL IM STA (01:52)
--- NOTE | 2023-08-06 02:22 | ED ---
Extremity Problem HPI - General Chief complaint: Extremity Problem,Nontraumatic Stated complaint: Leg Pain Time Seen by Provider: 08/06/23 01:24 Source: patient Mode of arrival: wheelchair Limitations: no limitations - History of Present Illness Initial comments: 37-year-old female presenting with chief complaint of bilateral leg pain. Patient has history of complex regional pain syndrome and states that this pain is consistent with her regular chronic pain flareups. States that her dogs were jumping on her legs which caused a flareup of this pain. She has no other acute injuries or trauma. - Related Data Home Medications Medication Instructions Recorded Confirmed Medroxyprogesterone Acetate 150 mg IM Q84D 11/22/13 10/07/20 [Depo-Provera] rOPINIRole HCL [Requip] 1 mg PO BID@0900,1200 11/22/13 10/07/20 Pentosan Polysulfate Sodium 100 mg PO DAILY 02/10/15 10/07/20 [Elmiron] HYDROcodone/APAP 7.5-325MG [[place] 1 tab PO BID 07/20/16 10/07/20 7.5-325] Paliperidone IM Pt Own [Invega 117 mg IM Q28D 07/20/16 10/07/20 Sustenna] amantadine HCL [Symmetrel] 100 mg PO BID 11/21/16 10/07/20 Albuterol Sulfate [Proair Hfa] 2 puff INHALATION RT-QID PRN 01/13/18 10/07/20 Butalb/Acetaminophen/Caffeine 1 tab PO Q8H PRN 01/13/18 10/07/20 [Fioricet 50-325-40] Fluticasone Propionate [Flovent 1 puff INHALATION RT-BID 01/13/18 10/07/20 Hfa 110 mcg] gemfibroziL [Lopid] 600 mg PO BID 01/13/18 10/07/20 Gabapentin [Neurontin] 300 mg PO TID 03/11/18 10/07/20 Gabapentin [Neurontin] 600 mg PO TID 09/16/19 10/07/20 Omeprazole [PriLOSEC] 40 mg PO DAILY 09/16/19 10/07/20 rOPINIRole HCL [Requip] 2 mg PO HS 09/16/19 10/07/20 traZODone HCL 300 mg PO HS 09/16/19 10/07/20 hydrOXYzine pamoate 25 mg PO BID 04/13/20 10/07/20 Cyclobenzaprine [Flexeril] 10 mg PO TID PRN 08/16/20 10/07/20 Fentanyl/Bupivcaine Pain Pump 1 dose INTRATHECA CONTINUOUS 08/16/20 10/07/20 Ibuprofen [Motrin] 600 mg PO TID PRN 10/07/20 10/07/20 diphenhydrAMINE [Benadryl] 50 mg PO DAILY PRN 10/07/20 10/07/20 Previous Rx's Medication Instructions Recorded Erythromycin Ophth Oint [Romycin 1 applic RIGHT EYE QID #1 bottle 10/03/20 Ophth Oint] Ondansetron Odt [Zofran Odt] 4 mg PO Q8HR PRN #14 tab 10/16/20 Ondansetron Odt [Zofran Odt] 4 mg PO Q8HR PRN #10 tab 06/21/21 predniSONE [Deltasone] 20 mg PO BID #10 tab 09/08/21 Cephalexin [Keflex] 500 mg PO Q8HR 7 Days #21 cap 11/25/21 Fluconazole [Diflucan] 150 mg PO ONCE #1 tab 11/25/21 Amoxic-Pot Clav 875-125Mg 1 tab PO Q12HR 7 Days #14 tab 05/02/23 [Augmentin 875-125] Allergies Allergy/AdvReac Type Severity Reaction Status Date / Time azithromycin Allergy Rash/Hives Verified 07/23/23 23:42 [From Zithromax Z-Mehrdad] cimetidine [From Tagamet] Allergy Rash/Hives Verified 07/23/23 23:42 codeine Allergy Nausea & Verified 07/23/23 23:42 Vomiting ether [Ether] Allergy Anaphylaxis Verified 07/23/23 23:42 Fish Containing Products Allergy Anaphylaxis Verified 07/23/23 23:42 [Fish] ibuprofen [From Motrin] Allergy Rash/Hives Verified 07/23/23 23:42 morphine Allergy Unknown Verified 07/23/23 23:42 ziprasidone HCl [From Geodon] Allergy Extrapyramidal Verified 07/23/23 23:42 Symptoms ciprofloxacin [From Cipro] AdvReac Rash/Hives Verified 04/23/24 23:42 fluphenazine HCl AdvReac Extrapyramidal Verified 07/23/23 23:42 [From Prolixin] Symptoms haloperidol [From Haldol] AdvReac Extrapyramidal Verified 07/23/23 23:42 Symptoms Sulfa (Sulfonamide AdvReac Nausea & Verified 07/23/23 23:42 Antibiotics) Vomiting Review of Systems ROS Statement: Those systems with pertinent positive or pertinent negative responses have been documented in the HPI. ROS Other: All systems not noted in ROS Statement are negative. Past Medical History Past Medical History: Asthma, GERD/Reflux, Hyperlipidemia, Musculoskeletal Disorder, Neurologic Disorder, Osteoarthritis (OA), Seizure Disorder Additional Past Medical History / Comment(s): RSD-DERIC FEET, INTERSTITIAL CYSTITIS, BRONCHITIS, HEMORRHOIDS,MIGRAINES, INSOMNIA. VERTIGO, last seizure 4 years ago, complex regional pain syndrome, RLS. History of Any Multi-Drug Resistant Organisms: MRSA Date of last positivie culture/infection: 04/20/15 MDRO Source:: Left Axilla Past Surgical History: Adenoidectomy, Back Surgery, Cholecystectomy, Orthopedic Surgery, Tonsillectomy Additional Past Surgical History / Comment(s): bilateral foot surgery d/t rsd, numerous pain clinic procedures, nerve stimulator in back to tx RSD placed in Nov 11 2015, pain pump placement, replacement of stimulator 06/2021 Past Anesthesia/Blood Transfusion Reactions: Previous Problems w/ Anesthesia Additional Past Anesthesia/Blood Transfusion Reaction / Comment(s): Pt recieved blood when she was 2 yrs old after tonsillectomy. WHEN BABY HEART STOPPED TWICE- PT STATED SHE WAS ALLERGIC TO ETHER. Past Psychological History: Anxiety, Bipolar, Depression, PTSD Smoking Status: Never smoker Past Alcohol Use History: None Reported Past Drug Use History: Marijuana - Past Family History Father History Unknown: Yes Family Medical History: Diabetes Mellitus Mother Family Medical History: Cancer, CVA/TIA, Diabetes Mellitus, Myocardial Infarction ([place]) Additional Family Medical History / Comment(s): Mother has had 5 CVAs, 3 MIs and UTERINE CANCER General Exam Limitations: no limitations General appearance: alert, in no apparent distress Head exam: Present: atraumatic, normocephalic Eye exam: Present: normal appearance, EOMI Neck exam: Present: normal inspection. Absent: meningismus Respiratory exam: Absent: respiratory distress Cardiovascular Exam: Present: regular rate Extremities exam: Present: normal inspection, full ROM, tenderness Neurological exam: Present: alert, oriented X3 Psychiatric exam: Present: normal affect, normal mood Skin exam: Present: warm, dry Course Vital Signs 08/06/23 08/06/23 01:20 02:36 Temperature 98.6 F Pulse Rate 97 101 H Respiratory 18 18 Rate Blood Pressure 116/87 125/75 O2 Sat by Pulse 98 96 Oximetry Medical Decision Making - Medical Decision Making Was pt. sent in by a medical professional or institution (, PA, EDUCATIONAL TECHNICIAN, urgent care, hospital, or custodial...) When possible be specific @ -No Did you speak to anyone other than the patient for history (EMS, parent, family, police, friend...)? What history was obtained from this source @ -No Did you review nursing and triage notes (agree or disagree)? Why? @ -I reviewed and agree with nursing and triage notes Were old charts reviewed (outside hosp., previous admission, EMS record, old EKG, old radiological studies, urgent care reports/EKG's, custodial records)? Report findings @ -No old charts were reviewed Differential Diagnosis (chest pain, altered mental status, abdominal pain women, abdominal pain men, vaginal bleeding, weakness, fever, dyspnea, syncope, headache, dizziness, GI bleed, back pain, seizure, CVA, palpatations, mental health, musculoskeletal)? @ -Differential Musculoskeletal Muscular strain, contusion, ligament sprain, fracture, arthritis, septic arthritis, bursitis, cellulitis, muscle spasm, nerve compression, DVT, arterial occlusion, herpes zoster, electrolyte abnormality, tumor.... This is not meant to be in all inclusive list EKG interpreted by me (3pts min.). @ -As above X-rays interpreted by me (1pt min.). @ -None done CT interpreted by me (1pt min.). @ -None done U/S interpreted by me (1pt. min.). @ -None done What testing was considered but not performed or refused? (CT, X-rays, U/S, labs)? Why? @ -None What meds were considered but not given or refused? Why? @ -None Did you discuss the management of the patient with other professionals (professionals i.e. , CALLUM, EDUCATIONAL TECHNICIAN, lab, RT, psych nurse, social media community manager, rail director, teacher, national insurance officer, adult protective caseworker)? Give summary @ -No Was smoking cessation discussed for >3mins.? @ -No Was critical care preformed (if so, how long)? @ -No Were there social determinants of health that impacted care today? How? (Homelessness, low income, unemployed, alcoholism, drug addiction, transportation, low edu. Level, literacy, decrease access to med. care, custodial, rehab)? @ -No Was there de-escalation of care discussed even if they declined (Discuss DNR or withdrawal of care, Hospice)? DNR status @ -No What co-morbidities impacted this encounter? (DM, HTN, Smoking, COPD, CAD, Cancer, CVA, ARF, Chemo, Hep., AIDS, mental health diagnosis, sleep apnea, morbid obesity)? @ -None Was patient admitted / discharged? Hospital course, mention meds given and route, prescriptions, significant lab abnormalities, going to OR and other pertinent info. @ -37-year-old female history of chronic bilateral lower leg pain presenting with chief complaint of bilateral lower leg pain. Feels consistent with her regular chronic pain flareups. Neurovascularly intact. Her pain is treated and she is discharged home. Follow-up with PCP. Report back to ER with any new or worsening symptoms. Discussed return parameters and answered all questions. Patient conveyed verbal understanding and agreed to the plan. I discussed this case in detail with my attending Dr. lee Undiagnosed new problem with uncertain prognosis? @ -No Drug Therapy requiring intensive monitoring for toxicity (Heparin, Nitro, Insulin, Cardizem)? @ -No Were any procedures done? @ -No Diagnosis/symptom? @ -Chronic leg pain Acute, or Chronic, or Acute on Chronic? @ -Acute on chronic Uncomplicated (without systemic symptoms) or Complicated (systemic symptoms)? @ -Uncomplicated Side effects of treatment? @ -No Exacerbation, Progression, or Severe Exacerbation? @ -No Poses a threat to life or bodily function? How? (Chest pain, [place], [place], pneumonia, PE, COPD, DKA, ARF, appy, cholecystitis, CVA, Diverticulitis, Homicidal, Suicidal, threat to staff... and all critical care pts) @ -No Disposition Clinical Impression: Chronic pain syndrome Disposition: HOME SELF-CARE Condition: Good Instructions (If sedation given, give patient instructions): Chronic Pain (ED) Additional Instructions: Follow-up with PCP. Report back to ER with any new or worsening symptoms. Is patient prescribed a controlled substance at d/c from ED?: No Referrals: None,Stated [Primary Care Provider] - 1-2 days Time of Disposition: 02:21
[2023-08-06] MEDS: HYDROmorphone 1 MG/ML 1 ML SYRINGE IM STA (02:34)
[2023-08-06 03:04] VITALS: BP 125/75; PULSE 101
== END 2023-08-06 02:36 | disposition home or self-care (01) ==
LOC: EC 01:09
DX: G89.4 Chronic pain syndrome (principal); M79.605 Pain in left leg; M79.604 Pain in right leg; Z88.6 Allergy status to analgesic agent; Z88.2 Allergy status to sulfonamides; Z88.8 Allergy status to other drugs, medicaments and biological substances; Z90.49 Acquired absence of other specified parts of digestive tract
CPT/HCPCS: 99283; 96372 ×3; J1200; J1170; J1885

== ENCOUNTER 2023-08-12 21:52 | Emergency (ER) | payer MEDICARE, OTHER ==
--- NOTE | 2023-08-12 22:36 | ED ---
Extremity Problem HPI - General Stated complaint: Leg Pain Time Seen by Provider: 08/12/23 22:36 Source: patient, RN notes reviewed Mode of arrival: ambulatory Limitations: no limitations - History of Present Illness Initial comments: 37-year-old female presenting to the ER with a chief complaint of bilateral leg pain. Patient has a past medical history significant for complex regional pain syndrome. She states last night she started to have a flareup in her left leg and it is now bilateral. She denies any injuries or traumas. Started home medications without relief. No other complaints. - Related Data Home Medications Medication Instructions Recorded Confirmed Medroxyprogesterone Acetate 150 mg IM Q84D 11/22/13 10/07/20 [Depo-Provera] rOPINIRole HCL [Requip] 1 mg PO BID@0900,1200 11/22/13 10/07/20 Pentosan Polysulfate Sodium 100 mg PO DAILY 02/10/15 10/07/20 [Elmiron] HYDROcodone/APAP 7.5-325MG [[place] 1 tab PO BID 07/20/16 10/07/20 7.5-325] Paliperidone IM Pt Own [Invega 117 mg IM Q28D 07/20/16 10/07/20 Sustenna] amantadine HCL [Symmetrel] 100 mg PO BID 11/21/16 10/07/20 Albuterol Sulfate [Proair Hfa] 2 puff INHALATION RT-QID PRN 01/13/18 10/07/20 Butalb/Acetaminophen/Caffeine 1 tab PO Q8H PRN 01/13/18 10/07/20 [Fioricet 50-325-40] Fluticasone Propionate [Flovent 1 puff INHALATION RT-BID 01/13/18 10/07/20 Hfa 110 mcg] gemfibroziL [Lopid] 600 mg PO BID 01/13/18 10/07/20 Gabapentin [Neurontin] 300 mg PO TID 03/11/18 10/07/20 Gabapentin [Neurontin] 600 mg PO TID 09/16/19 10/07/20 Omeprazole [PriLOSEC] 40 mg PO DAILY 09/16/19 10/07/20 rOPINIRole HCL [Requip] 2 mg PO HS 09/16/19 10/07/20 traZODone HCL 300 mg PO HS 09/16/19 10/07/20 hydrOXYzine pamoate 25 mg PO BID 04/13/20 10/07/20 Cyclobenzaprine [Flexeril] 10 mg PO TID PRN 08/16/20 10/07/20 Fentanyl/Bupivcaine Pain Pump 1 dose INTRATHECA CONTINUOUS 08/16/20 10/07/20 Ibuprofen [Motrin] 600 mg PO TID PRN 10/07/20 10/07/20 diphenhydrAMINE [Benadryl] 50 mg PO DAILY PRN 10/07/20 10/07/20 Previous Rx's Medication Instructions Recorded Erythromycin Ophth Oint [Romycin 1 applic RIGHT EYE QID #1 bottle 10/03/20 Ophth Oint] Ondansetron Odt [Zofran Odt] 4 mg PO Q8HR PRN #14 tab 10/16/20 Ondansetron Odt [Zofran Odt] 4 mg PO Q8HR PRN #10 tab 06/21/21 predniSONE [Deltasone] 20 mg PO BID #10 tab 09/08/21 Cephalexin [Keflex] 500 mg PO Q8HR 7 Days #21 cap 11/25/21 Fluconazole [Diflucan] 150 mg PO ONCE #1 tab 11/25/21 Amoxic-Pot Clav 875-125Mg 1 tab PO Q12HR 7 Days #14 tab 05/02/23 [Augmentin 875-125] Allergies Allergy/AdvReac Type Severity Reaction Status Date / Time azithromycin Allergy Rash/Hives Verified 08/12/23 22:42 [From Zithromax Z-Mehrdad] cimetidine [From Tagamet] Allergy Rash/Hives Verified 08/12/23 22:42 codeine Allergy Nausea & Verified 08/12/23 22:42 Vomiting ether [Ether] Allergy Anaphylaxis Verified 08/12/23 22:42 Fish Containing Products Allergy Anaphylaxis Verified 08/12/23 22:42 [Fish] ibuprofen [From Motrin] Allergy Rash/Hives Verified 08/12/23 22:42 morphine Allergy Unknown Verified 08/12/23 22:42 ziprasidone HCl [From Geodon] Allergy Extrapyramidal Verified 08/12/23 22:42 Symptoms ciprofloxacin [From Cipro] AdvReac Rash/Hives Verified 08/12/23 22:42 fluphenazine HCl AdvReac Extrapyramidal Verified 08/12/23 22:42 [From Prolixin] Symptoms haloperidol [From Haldol] AdvReac Extrapyramidal Verified 08/12/23 22:42 Symptoms Sulfa (Sulfonamide AdvReac Nausea & Verified 08/12/23 22:42 Antibiotics) Vomiting Review of Systems ROS Statement: Those systems with pertinent positive or pertinent negative responses have been documented in the HPI. ROS Other: All systems not noted in ROS Statement are negative. Past Medical History Past Medical History: Asthma, GERD/Reflux, Hyperlipidemia, Musculoskeletal Disorder, Neurologic Disorder, Osteoarthritis (OA), Seizure Disorder Additional Past Medical History / Comment(s): RSD-DERIC FEET, INTERSTITIAL CYSTITIS, BRONCHITIS, HEMORRHOIDS,MIGRAINES, INSOMNIA. VERTIGO, last seizure 4 years ago, complex regional pain syndrome, RLS. History of Any Multi-Drug Resistant Organisms: MRSA Date of last positivie culture/infection: 04/20/15 MDRO Source:: Left Axilla Past Surgical History: Adenoidectomy, Back Surgery, Cholecystectomy, Orthopedic Surgery, Tonsillectomy Additional Past Surgical History / Comment(s): bilateral foot surgery d/t rsd, numerous pain clinic procedures, nerve stimulator in back to tx RSD placed in Nov 11 2015, pain pump placement, replacement of stimulator 06/2021 Past Anesthesia/Blood Transfusion Reactions: Previous Problems w/ Anesthesia Additional Past Anesthesia/Blood Transfusion Reaction / Comment(s): Pt recieved blood when she was 2 yrs old after tonsillectomy. WHEN BABY HEART STOPPED TWICE- PT STATED SHE WAS ALLERGIC TO ETHER. Past Psychological History: Anxiety, Bipolar, Depression, PTSD Smoking Status: Never smoker Past Alcohol Use History: None Reported Past Drug Use History: Marijuana - Past Family History Father History Unknown: Yes Family Medical History: Diabetes Mellitus Mother Family Medical History: Cancer, CVA/TIA, Diabetes Mellitus, Myocardial Infarction ([place]) Additional Family Medical History / Comment(s): Mother has had 5 CVAs, 3 MIs and UTERINE CANCER General Exam - General Exam Comments Initial Comments: Visual Physical Exam Vital signs reviewed General: Well-appearing, nontoxic, no acute distress. Head: Normocephalic, atraumatic Eyes: PERRLA, EOMI ENT: Airway patent Chest: Nonlabored breathing Skin: No visual rash, normal skin tone Neuro: Alert and oriented 3 Musculoskeletal: No gross abnormalities General appearance: alert, in no apparent distress Respiratory exam: Present: normal lung sounds bilaterally. Absent: respiratory distress, wheezes, rales, rhonchi, stridor Cardiovascular Exam: Present: regular rate, normal rhythm, normal heart sounds. Absent: systolic murmur, diastolic murmur, rubs, gallop, clicks Extremities exam: Present: normal inspection, full ROM, normal capillary refill, other (2+ dorsalis pedis pulse bilaterally. Equal bilateral lower extremity strength. Patient able to ambulate without difficulty). Absent: tenderness, pedal edema, joint swelling, calf tenderness Neurological exam: Present: alert, oriented X3, CN II-XII intact Skin exam: Present: warm, dry, intact, normal color. Absent: rash Course Vital Signs 08/12/23 08/12/23 22:40 23:58 Temperature 98.3 F Pulse Rate 86 95 Respiratory 18 16 Rate Blood Pressure 122/84 120/82 O2 Sat by Pulse 97 100 Oximetry Medical Decision Making - Medical Decision Making I performed the quick note portion of this chart. Electronically signed by Piedad Jhaveri PA-C Was pt. sent in by a medical professional or institution (CALLUM Estes, CHILDREN'S CHOIR DIRECTOR, urgent care, hospital, or jail...) When possible be specific @ -No Did you speak to anyone other than the patient for history (EMS, parent, family, police, friend...)? What history was obtained from this source @ -No Did you review nursing and triage notes (agree or disagree)? Why? @ -I reviewed and agree with nursing and triage notes Were old charts reviewed (outside hosp., previous admission, EMS record, old EKG, old radiological studies, urgent care reports/EKG's, jail records)? Report findings @ -No old charts were reviewed Differential Diagnosis (chest pain, altered mental status, abdominal pain women, abdominal pain men, vaginal bleeding, weakness, fever, dyspnea, syncope, headache, dizziness, GI bleed, back pain, seizure, CVA, palpatations, mental health, musculoskeletal)? @ -Differential Musculoskeletal: Muscular strain, contusion, ligament sprain, fracture, arthritis, septic arthritis, bursitis, cellulitis, muscle spasm, nerve compression, DVT, arterial occlusion, herpes zoster, electrolyte abnormality, tumor.... This is not meant to be in all inclusive list EKG interpreted by me (3pts min.). @ -None X-rays interpreted by me (1pt min.). @ -None done CT interpreted by me (1pt min.). @ -None done U/S interpreted by me (1pt. min.). @ -None done What testing was considered but not performed or refused? (CT, X-rays, U/S, labs)? Why? @ -X-rays considered but not obtained as this is a chronic issue and no new traumas or injuries were reported. What meds were considered but not given or refused? Why? @ -None Did you discuss the management of the patient with other professionals (professionals i.e. DrBen, PA, CHILDREN'S CHOIR DIRECTOR, lab, RT, psych nurse, social welfare administrator, sand buffer, teacher, command center officer, piano case maker)? Give summary @ -No Was smoking cessation discussed for >3mins.? @ -No Was critical care preformed (if so, how long)? @ -No Were there social determinants of health that impacted care today? How? (Homelessness, low income, unemployed, alcoholism, drug addiction, transportation, low edu. Level, literacy, decrease access to med. care, correction, rehab)? @ -No Was there de-escalation of care discussed even if they declined (Discuss DNR or withdrawal of care, Hospice)? DNR status @ -No What co-morbidities impacted this encounter? (DM, HTN, Smoking, COPD, CAD, Cancer, CVA, ARF, Chemo, Hep., AIDS, mental health diagnosis, sleep apnea, morbi d obesity)? @ -Complex regional pain syndrome Was patient admitted / discharged? Hospital course, mention meds given and route, prescriptions, significant lab abnormalities, going to OR and other per tinent info. @ -Discharge. 37-year-old female presented to the ER with chief complaint of bilateral leg pain. Patient does have a past medical history significant for complex regional pain syndrome. History and physical exam completed. Vitals stable. No acute neurologic findings on exam. Bilateral lower extremities neurovascular intact. Imaging considered but not obtained as this is a chronic issue and no new traumas or injuries reported. Patient in agreement with this plan. Symptomatic control in the ER. I discussed with patient to follow-up with PCP. Strict return parameters discussed. Patient discharged stable condition follow-up with PCP. Patient verbally expressed understanding and agreement with care plan. Case discussed with ED attending, Dr. Hoang. Undiagnosed new problem with uncertain prognosis? @ -No Drug Therapy requiring intensive monitoring for toxicity (Heparin, Nitro, Insulin, Cardizem)? @ -No Were any procedures done? @ -No Diagnosis/symptom? @ -Leg pain Acute, or Chronic, or Acute on Chronic? @ -Chronic Uncomplicated (without systemic symptoms) or Complicated (systemic symptoms)? @ -Uncomplicated Side effects of treatment? @ -No Exacerbation, Progression, or Severe Exacerbation? @ -No Poses a threat to life or bodily function? How? (Chest pain, [place], [place], pneumonia, PE, COPD, DKA, ARF, appy, cholecystitis, CVA, Diverticulitis, Homicidal, S uicidal, threat to staff... and all critical care pts) @ -No Disposition Clinical Impression: Chronic pain syndrome, Leg pain, bilateral Disposition: HOME SELF-CARE Condition: Stable Additional Instructions: Follow-up with with PCP. Return to ER for any new or worsening symptoms. Is patient prescribed a controlled substance at d/c from ED?: No Referrals: None,Stated [Primary Care Provider] - 1-2 days Time of Disposition: 23:42
[2023-08-12 22:45] VITALS: TEMP 98.3
[2023-08-12] MEDS: diphenhydrAMINE 50 MG/ML 1 ML VIAL IM STA (23:13)
[2023-08-12] MEDS: KETOROLAC 15 MG/ML 1 ML VIAL IM STA (23:13)
[2023-08-12] MEDS: HYDROmorphone 0.5 MG/0.5 ML SYRINGE IM STA (23:56)
[2023-08-13 00:07] VITALS: BP 120/82; PULSE 95; RESP 16
== END 2023-08-13 00:52 | disposition home or self-care (01) ==
LOC: EC 21:52
DX: G89.29 Other chronic pain (principal); M79.604 Pain in right leg; M79.605 Pain in left leg; F12.90 Cannabis use, unspecified, uncomplicated; Z88.2 Allergy status to sulfonamides; Z88.6 Allergy status to analgesic agent; Z91.013 Allergy to seafood; Z88.5 Allergy status to narcotic agent; Z88.8 Allergy status to other drugs, medicaments and biological substances
CPT/HCPCS: 99283; 96372 ×3; J1200; J1885; J1170

== ENCOUNTER 2023-08-23 01:43 | Emergency (ER) | payer MEDICARE, OTHER ==
[2023-08-23] MEDS: KETOROLAC 15 MG/ML 1 ML VIAL IM STA (02:40)
[2023-08-23] MEDS: diphenhydrAMINE 50 MG/ML 1 ML VIAL IM STA (02:40)
[2023-08-23] MEDS: HYDROmorphone 1 MG/ML 1 ML SYRINGE IM STA ×2 (02:41→04:08)
--- NOTE | 2023-08-23 02:44 | ED ---
Extremity Problem HPI - General Chief complaint: Extremity Problem,Nontraumatic Stated complaint: Pain in legs Time Seen by Provider: 08/23/23 01:54 Source: patient Mode of arrival: ambulatory Limitations: no limitations - History of Present Illness Initial comments: 37-year-old female presenting with chief complaint of bilateral leg pain. Patient has history of chronic pain, well-known to our ER. States this feels consistent with her chronic pain. No new injury or trauma. No swelling. No discoloration. No chest pain or difficulty breathing. - Related Data Home Medications Medication Instructions Recorded Confirmed Medroxyprogesterone Acetate 150 mg IM Q84D 11/22/13 10/07/20 [Depo-Provera] rOPINIRole HCL [Requip] 1 mg PO BID@0900,1200 11/22/13 10/07/20 Pentosan Polysulfate Sodium 100 mg PO DAILY 02/10/15 10/07/20 [Elmiron] HYDROcodone/APAP 7.5-325MG [[place] 1 tab PO BID 07/20/16 10/07/20 7.5-325] Paliperidone IM Pt Own [Invega 117 mg IM Q28D 07/20/16 10/07/20 Sustenna] amantadine HCL [Symmetrel] 100 mg PO BID 11/21/16 10/07/20 Albuterol Sulfate [Proair Hfa] 2 puff INHALATION RT-QID PRN 01/13/18 10/07/20 Butalb/Acetaminophen/Caffeine 1 tab PO Q8H PRN 01/13/18 10/07/20 [Fioricet 50-325-40] Fluticasone Propionate [Flovent 1 puff INHALATION RT-BID 01/13/18 10/07/20 Hfa 110 mcg] gemfibroziL [Lopid] 600 mg PO BID 01/13/18 10/07/20 Gabapentin [Neurontin] 300 mg PO TID 03/11/18 10/07/20 Gabapentin [Neurontin] 600 mg PO TID 09/16/19 10/07/20 Omeprazole [PriLOSEC] 40 mg PO DAILY 09/16/19 10/07/20 rOPINIRole HCL [Requip] 2 mg PO HS 09/16/19 10/07/20 traZODone HCL 300 mg PO HS 09/16/19 10/07/20 hydrOXYzine pamoate 25 mg PO BID 04/13/20 10/07/20 Cyclobenzaprine [Flexeril] 10 mg PO TID PRN 08/16/20 10/07/20 Fentanyl/Bupivcaine Pain Pump 1 dose INTRATHECA CONTINUOUS 08/16/20 10/07/20 Ibuprofen [Motrin] 600 mg PO TID PRN 10/07/20 10/07/20 diphenhydrAMINE [Benadryl] 50 mg PO DAILY PRN 10/07/20 10/07/20 Previous Rx's Medication Instructions Recorded Erythromycin Ophth Oint [Romycin 1 applic RIGHT EYE QID #1 bottle 10/03/20 Ophth Oint] Ondansetron Odt [Zofran Odt] 4 mg PO Q8HR PRN #14 tab 10/16/20 Ondansetron Odt [Zofran Odt] 4 mg PO Q8HR PRN #10 tab 06/21/21 predniSONE [Deltasone] 20 mg PO BID #10 tab 09/08/21 Cephalexin [Keflex] 500 mg PO Q8HR 7 Days #21 cap 11/25/21 Fluconazole [Diflucan] 150 mg PO ONCE #1 tab 11/25/21 Amoxic-Pot Clav 875-125Mg 1 tab PO Q12HR 7 Days #14 tab 05/02/23 [Augmentin 875-125] Allergies Allergy/AdvReac Type Severity Reaction Status Date / Time azithromycin Allergy Rash/Hives Verified 08/23/23 01:48 [From Zithromax Z-Mehrdad] cimetidine [From Tagamet] Allergy Rash/Hives Verified 08/23/23 01:48 codeine Allergy Nausea & Verified 08/23/23 01:48 Vomiting ether [Ether] Allergy Anaphylaxis Verified 08/23/23 01:48 Fish Containing Products Allergy Anaphylaxis Verified 08/23/23 01:48 [Fish] ibuprofen [From Motrin] Allergy Rash/Hives Verified 08/23/23 01:48 morphine Allergy Unknown Verified 08/23/23 01:48 ziprasidone HCl [From Geodon] Allergy Extrapyramidal Verified 08/23/23 01:48 Symptoms ciprofloxacin [From Cipro] AdvReac Rash/Hives Verified 08/23/23 01:48 fluphenazine HCl AdvReac Extrapyramidal Verified 08/23/23 01:48 [From Prolixin] Symptoms haloperidol [From Haldol] AdvReac Extrapyramidal Verified 08/23/23 01:48 Symptoms Sulfa (Sulfonamide AdvReac Nausea & Verified 08/23/23 01:48 Antibiotics) Vomiting Review of Systems ROS Statement: Those systems with pertinent positive or pertinent negative responses have been documented in the HPI. ROS Other: All systems not noted in ROS Statement are negative. Past Medical History Past Medical History: Asthma, GERD/Reflux, Hyperlipidemia, Musculoskeletal Disorder, Neurologic Disorder, Osteoarthritis (OA), Seizure Disorder Additional Past Medical History / Comment(s): RSD-DERIC FEET, INTERSTITIAL CYSTITIS, BRONCHITIS, HEMORRHOIDS,MIGRAINES, INSOMNIA. VERTIGO, last seizure 4 years ago, complex regional pain syndrome, RLS. History of Any Multi-Drug Resistant Organisms: MRSA Date of last positivie culture/infection: 04/20/15 MDRO Source:: Left Axilla Past Surgical History: Adenoidectomy, Back Surgery, Cholecystectomy, Orthopedic Surgery, Tonsillectomy Additional Past Surgical History / Comment(s): bilateral foot surgery d/t rsd, numerous pain clinic procedures, nerve stimulator in back to tx RSD placed in Nov 11 2015, pain pump placement, replacement of stimulator 06/2021 Past Anesthesia/Blood Transfusion Reactions: Previous Problems w/ Anesthesia Additional Past Anesthesia/Blood Transfusion Reaction / Comment(s): Pt recieved blood when she was 2 yrs old after tonsillectomy. WHEN BABY HEART STOPPED TWICE- PT STATED SHE WAS ALLERGIC TO ETHER. Past Psychological History: Anxiety, Bipolar, Depression, PTSD Smoking Status: Never smoker Past Alcohol Use History: None Reported Past Drug Use History: Marijuana - Past Family History Father History Unknown: Yes Family Medical History: Diabetes Mellitus Mother Family Medical History: Cancer, CVA/TIA, Diabetes Mellitus, Myocardial Infarction ([place]) Additional Family Medical History / Comment(s): Mother has had 5 CVAs, 3 MIs and UTERINE CANCER General Exam Limitations: no limitations General appearance: alert, in no apparent distress Head exam: Present: atraumatic, normocephalic Eye exam: Present: normal appearance Neck exam: Present: normal inspection Respiratory exam: Absent: respiratory distress Cardiovascular Exam: Present: regular rate Extremities exam: Present: full ROM, tenderness. Absent: pedal edema Neurological exam: Present: alert, oriented X3 Psychiatric exam: Present: normal affect, normal mood Skin exam: Present: warm, dry, normal color Course Vital Signs 08/23/23 08/23/23 01:46 03:30 Temperature 99 F Pulse Rate 98 98 Respiratory 18 20 Rate Blood Pressure 117/76 110/78 O2 Sat by Pulse 96 98 Oximetry Medical Decision Making - Medical Decision Making Was pt. sent in by a medical professional or institution (, PA, POWERHOUSE ELECTRICIAN, urgent care, hospital, or long-term...) When possible be specific @ -No Did you speak to anyone other than the patient for history (EMS, parent, family, police, friend...)? What history was obtained from this source @ -No Did you review nursing and triage notes (agree or disagree)? Why? @ -I reviewed and agree with nursing and triage notes Were old charts reviewed (outside hosp., previous admission, EMS record, old EKG, old radiological studies, urgent care reports/EKG's, long-term records)? Report findings @ -No old charts were reviewed Differential Diagnosis (chest pain, altered mental status, abdominal pain women, abdominal pain men, vaginal bleeding, weakness, fever, dyspnea, syncope, headache, dizziness, GI bleed, back pain, seizure, CVA, palpatations, mental health, musculoskeletal)? @ -Differential Musculoskeletal Muscular strain, contusion, ligament sprain, fracture, arthritis, septic arthritis, bursitis, cellulitis, muscle spasm, nerve compression, DVT, arterial occlusion, herpes zoster, electrolyte abnormality, tumor.... This is not meant to be in all inclusive list EKG interpreted by me (3pts min.). @ -As above X-rays interpreted by me (1pt min.). @ -None done CT interpreted by me (1pt min.). @ -None done U/S interpreted by me (1pt. min.). @ -None done What testing was considered but not performed or refused? (CT, X-rays, U/S, labs)? Why? @ -None What meds were considered but not given or refused? Why? @ -None Did you discuss the management of the patient with other professionals (professionals i.e. , [facility], POWERHOUSE ELECTRICIAN, lab, RT, psych nurse, social work specialist, buckshot swage operator, teacher, home school liaison officer, counseling case manager)? Give summary @ -No Was smoking cessation discussed for >3mins.? @ -No Was critical care preformed (if so, how long)? @ -No Were there social determinants of health that impacted care today? How? (Homelessness, low income, unemployed, alcoholism, drug addiction, transportation, low edu. Level, literacy, decrease access to med. care, assisted, rehab)? @ -No Was there de-escalation of care discussed even if they declined (Discuss DNR or withdrawal of care, Hospice)? DNR status @ -No What co-morbidities impacted this encounter? (DM, HTN, Smoking, COPD, CAD, Canc er, CVA, ARF, Chemo, Hep., AIDS, mental health diagnosis, sleep apnea, morbid obesity)? @ -None Was patient admitted / discharged? Hospital course, mention meds given and route, prescriptions, significant lab abnormalities, going to OR and other pertinent info. @ -37-year-old female presenting with chief complaint of lower extremity pain. Well-known to our ER. History of chronic lower extremity pain. She is provided with pain medication and reports improvement in her symptoms. Discharged home. Follow-up with PCP. Report back to ER with any new or worsening symptoms. Discussed return parameters and answered all questions. Patient conveyed verbal understanding and agreed to the plan. I discussed this case in detail with my attending Dr. Castillo Undiagnosed new problem with uncertain prognosis? @ -No Drug Therapy requiring intensive monitoring for toxicity (Heparin, Nitro, Insulin, Cardizem)? @ -No Were any procedures done? @ -No Diagnosis/symptom? @ -Lower extremity pain, chronic pain syndrome Acute, or Chronic, or Acute on Chronic? @ -Acute on chronic Uncomplicated (without systemic symptoms) or Complicated (systemic symptoms)? @ -Uncomplicated Side effects of treatment? @ -No Exacerbation, Progression, or Severe Exacerbation? @ -No Poses a threat to life or bodily function? How? (Chest pain, [place], [place], pneumonia, PE, COPD, DKA, ARF, appy, cholecystitis, CVA, Diverticulitis, Homicidal, Suicidal, threat to staff... and all critical care pts) @ -No Disposition Clinical Impression: Chronic pain syndrome, Leg pain, bilateral Disposition: HOME SELF-CARE Condition: Good Instructions (If sedation given, give patient instructions): Chronic Pain (ED) Additional Instructions: Follow-up with your PCP. Report back to ER with any new or worsening symptoms. Is patient prescribed a controlled substance at d/c from ED?: No Referrals: None,Stated [Primary Care Provider] - 1-2 days Time of Disposition: 02:43
[2023-08-23 05:25] VITALS: BP 119/66; PULSE 97; RESP 18; TEMP 98
== END 2023-08-23 04:30 | disposition home or self-care (01) ==
LOC: EC 01:43
DX: G89.4 Chronic pain syndrome (principal); M79.604 Pain in right leg; M79.605 Pain in left leg; Z88.1 Allergy status to other antibiotic agents; Z88.5 Allergy status to narcotic agent; Z91.013 Allergy to seafood; Z88.6 Allergy status to analgesic agent; Z88.8 Allergy status to other drugs, medicaments and biological substances; Z88.2 Allergy status to sulfonamides
CPT/HCPCS: 99283; 96372 ×4; J1200; J1170; J1885

== ENCOUNTER 2023-09-15 00:25 | Emergency (ER) | payer MEDICARE, OTHER ==
[2023-09-15 00:37] VITALS: TEMP 97.6
[2023-09-15] MEDS: LORazepam 2 MG/ML INJ IM STA (06:10)
[2023-09-15] MEDS: HYDROmorphone 1 MG/ML 1 ML SYRINGE IM STA ×2 (06:18→07:21)
[2023-09-15] MEDS: diphenhydrAMINE 50 MG/ML 1 ML VIAL IM STA (06:20)
[2023-09-15] MEDS: KETOROLAC 15 MG/ML 1 ML VIAL IM STA (06:22)
[2023-09-15] MEDS: LORazepam 1 MG TAB PO STA (06:24)
--- NOTE | 2023-09-15 06:45 | ED ---
Extremity Problem HPI - General Chief complaint: Extremity Injury, Lower Stated complaint: Leg Pain Time Seen by Provider: 09/15/23 05:59 Source: patient, RN notes reviewed Mode of arrival: ambulatory Limitations: no limitations - History of Present Illness Initial comments: This is a 37-year-old female who presents to the emergency department for right leg pain. Patient states that her stimulator was recalled and is no longer functioning correctly. As result she is no longer getting stimulation to the right lower portion of her leg, causing severe pain. Denies any new injuries. States that her insurance will not approve a pain pump until July of next year. - Related Data Home Medications Medication Instructions Recorded Confirmed Medroxyprogesterone Acetate 150 mg IM Q84D 11/22/13 10/07/20 [Depo-Provera] rOPINIRole HCL [Requip] 1 mg PO BID@0900,1200 11/22/13 10/07/20 Pentosan Polysulfate Sodium 100 mg PO DAILY 02/10/15 10/07/20 [Elmiron] HYDROcodone/APAP 7.5-325MG [[place] 1 tab PO BID 07/20/16 10/07/20 7.5-325] Paliperidone IM Pt Own [Invega 117 mg IM Q28D 07/20/16 10/07/20 Sustenna] amantadine HCL [Symmetrel] 100 mg PO BID 11/21/16 10/07/20 Albuterol Sulfate [Proair Hfa] 2 puff INHALATION RT-QID PRN 01/13/18 10/07/20 Butalb/Acetaminophen/Caffeine 1 tab PO Q8H PRN 01/13/18 10/07/20 [Fioricet 50-325-40] Fluticasone Propionate [Flovent 1 puff INHALATION RT-BID 01/13/18 10/07/20 Hfa 110 mcg] gemfibroziL [Lopid] 600 mg PO BID 01/13/18 10/07/20 Gabapentin [Neurontin] 300 mg PO TID 03/11/18 10/07/20 Gabapentin [Neurontin] 600 mg PO TID 09/16/19 10/07/20 Omeprazole [PriLOSEC] 40 mg PO DAILY 09/16/19 10/07/20 rOPINIRole HCL [Requip] 2 mg PO HS 09/16/19 10/07/20 traZODone HCL 300 mg PO HS 09/16/19 10/07/20 hydrOXYzine pamoate 25 mg PO BID 04/13/20 10/07/20 Cyclobenzaprine [Flexeril] 10 mg PO TID PRN 08/16/20 10/07/20 Fentanyl/Bupivcaine Pain Pump 1 dose INTRATHECA CONTINUOUS 08/16/20 10/07/20 Ibuprofen [Motrin] 600 mg PO TID PRN 10/07/20 10/07/20 diphenhydrAMINE [Benadryl] 50 mg PO DAILY PRN 10/07/20 10/07/20 Previous Rx's Medication Instructions Recorded Erythromycin Ophth Oint [Romycin 1 applic RIGHT EYE QID #1 bottle 10/03/20 Ophth Oint] Ondansetron Odt [Zofran Odt] 4 mg PO Q8HR PRN #14 tab 10/16/20 Ondansetron Odt [Zofran Odt] 4 mg PO Q8HR PRN #10 tab 06/21/21 predniSONE [Deltasone] 20 mg PO BID #10 tab 09/08/21 Cephalexin [Keflex] 500 mg PO Q8HR 7 Days #21 cap 11/25/21 Fluconazole [Diflucan] 150 mg PO ONCE #1 tab 11/25/21 Amoxic-Pot Clav 875-125Mg 1 tab PO Q12HR 7 Days #14 tab 05/02/23 [Augmentin 875-125] Allergies Allergy/AdvReac Type Severity Reaction Status Date / Time azithromycin Allergy Rash/Hives Verified 09/15/23 00:32 [From Zithromax Z-Mehrdad] cimetidine [From Tagamet] Allergy Rash/Hives Verified 09/15/23 00:32 codeine Allergy Nausea & Verified 09/15/23 00:32 Vomiting ether [Ether] Allergy Anaphylaxis Verified 09/15/23 00:32 Fish Containing Products Allergy Anaphylaxis Verified 09/15/23 00:32 [Fish] ibuprofen [From Motrin] Allergy Rash/Hives Verified 09/15/23 00:32 morphine Allergy Unknown Verified 09/15/23 00:32 ziprasidone HCl [From Geodon] Allergy Extrapyramidal Verified 09/15/23 00:32 Symptoms ciprofloxacin [From Cipro] AdvReac Rash/Hives Verified 09/15/23 00:32 fluphenazine HCl AdvReac Extrapyramidal Verified 09/15/23 00:32 [From Prolixin] Symptoms haloperidol [From Haldol] AdvReac Extrapyramidal Verified 09/15/23 00:32 Symptoms Sulfa (Sulfonamide AdvReac Nausea & Verified 09/15/23 00:32 Antibiotics) Vomiting Review of Systems ROS Statement: Those systems with pertinent positive or pertinent negative responses have been documented in the HPI. ROS Other: All systems not noted in ROS Statement are negative. Past Medical History Past Medical History: Asthma, GERD/Reflux, Hyperlipidemia, Musculoskeletal Disorder, Neurologic Disorder, Osteoarthritis (OA), Seizure Disorder Additional Past Medical History / Comment(s): RSD-DERIC FEET, INTERSTITIAL CYSTITIS, BRONCHITIS, HEMORRHOIDS,MIGRAINES, INSOMNIA. VERTIGO, last seizure 4 years ago, complex regional pain syndrome, RLS. History of Any Multi-Drug Resistant Organisms: MRSA Date of last positivie culture/infection: 04/20/15 MDRO Source:: Left Axilla Past Surgical History: Adenoidectomy, Back Surgery, Cholecystectomy, Orthopedic Surgery, Tonsillectomy Additional Past Surgical History / Comment(s): bilateral foot surgery d/t rsd, numerous pain clinic procedures, nerve stimulator in back to tx RSD placed in Nov 11 2015, pain pump placement, replacement of stimulator 06/2021 Past Anesthesia/Blood Transfusion Reactions: Previous Problems w/ Anesthesia Additional Past Anesthesia/Blood Transfusion Reaction / Comment(s): Pt recieved blood when she was 2 yrs old after tonsillectomy. WHEN BABY HEART STOPPED TWICE- PT STATED SHE WAS ALLERGIC TO ETHER. Past Psychological History: Anxiety, Bipolar, Depression, PTSD Smoking Status: Never smoker Past Alcohol Use History: None Reported Past Drug Use History: Marijuana - Past Family History Father History Unknown: Yes Family Medical History: Diabetes Mellitus Mother Family Medical History: Cancer, CVA/TIA, Diabetes Mellitus, Myocardial Infarction ([place]) Additional Family Medical History / Comment(s): Mother has had 5 CVAs, 3 MIs and UTERINE CANCER General Exam Limitations: no limitations General appearance: alert, anxious Head exam: Present: atraumatic, normocephalic, normal inspection Respiratory exam: Present: normal lung sounds bilaterally. Absent: respiratory distress, wheezes, rales, rhonchi, stridor Cardiovascular Exam: Present: regular rate, normal rhythm, normal heart sounds. Absent: systolic murmur, diastolic murmur, rubs, gallop, clicks Extremities exam: Present: other (No deformities, tenderness, or swelling to the right lower extremity. 2+ DP and PT pulses.) Neurological exam: Present: alert, oriented X3, CN II-XII intact Psychiatric exam: Present: normal affect, normal mood Skin exam: Present: warm, dry, intact, normal color. Absent: rash Course Vital Signs 09/15/23 09/15/23 09/15/23 00:32 06:00 07:32 Temperature 97.6 F Pulse Rate 116 H 97 80 Respiratory 24 18 14 Rate Blood Pressure 130/83 115/80 123/82 O2 Sat by Pulse 96 98 98 Oximetry Medical Decision Making - Medical Decision Making This is a 37 year old female who presents to the emergency department for right leg pain. Was pt. sent in by a medical professional or institution? @ -No Did you speak to anyone other than the patient for history? @ -No Did you review nursing and triage notes? @ -I disagree with the aspect about a fall a week ago, patient denies any recent injuries. Were old charts reviewed? @ -No Differential Diagnosis? @ -Differential Leg Pain: Leg fracture, leg sprain, DVT, PVD, arterial insufficiency, iliac artery aneurysm, cellulitis, compartment syndrome, tendinopathy, nerve entrapment, piriformis syndrome, osteoarthritis, rhabdomyolysis, myositis, cramping from an electrolyte imbalance, this is not meant to be an all inclusive list. EKG interpreted by me (3pts min.)? @ -Not obtained X-rays interpreted by me (1pt min.)? @ -Not obtained CT interpreted by me (1pt min.)? @ -Not obtained U/S interpreted by me (1pt. min.)? @ -Not obtained What testing was considered but not performed? (CT, X-rays, U/S, labs)? Why? @ -None What meds were considered but not given? Why? @ -None Did you discuss the management of the patient with other professionals? @ -No Did you reconcile home meds? @ -No Was smoking cessation discussed for >3mins.? @ -No Was critical care preformed (if so, how long)? @ -No Were there social determinants of health that impacted care today? How? (Homeles sness, low income, unemployed, alcoholism, drug addiction, transportation, low edu. Level, literacy, decrease access to med. care, [facility], rehab)? @ -No Was there de-escalation of care discussed even if they declined? (Discuss DNR or withdrawal of care, Hospice)? @ -No What co-morbidities impacted this encounter? (DM, HTN, Smoking, COPD, CAD, Cance r, CVA, Hep., AIDS, mental health diagnosis, sleep apnea, morbid obesity)? @ -Complex regional pain syndrome Was patient admitted / discharged? @ -Discharged. Given the lack of any recent injuries and pain being consistent with chronic issues, no imaging or testing was performed. Patient's pain was managed in the emergency department and she was discharged home in stable condition. Undiagnosed new problem with uncertain prognosis? @ -None Drug Therapy requiring intensive monitoring for toxicity (Heparin, Nitro, Ins ulin, Cardizem)? @ -None Were any procedures done? @ -None Diagnosis/symptom? @ -Right leg pain Acute, or Chronic, or Acute on Chronic? @ -Acute Uncomplicated (without systemic symptoms) or Complicated (systemic symptoms)? @ -Uncomplicated Side effects of treatment? @ -None Exacerbation, Progression, or Severe Exacerbation] @ -Not applicable Poses a threat to life or bodily function? @ -No Return precautions reviewed in depth, the patient is instructed to return to the emergency department with any new, worsening, or concerning symptoms. Patient verbalized understanding. This case was discussed in detail with the attending ED physician, Dr. Hernandez. Presentation, findings, and treatment plan discussed in detail as well. Disposition Clinical Impression: Leg pain Disposition: HOME SELF-CARE Instructions (If sedation given, give patient instructions): Leg Pain (ED) Additional Instructions: Return to the emergency department with any new, worsening, or concerning symptoms. Follow up with your primary care provider in 1-2 days. Is patient prescribed a controlled substance at d/c from ED?: No Referrals: None,Stated [Primary Care Provider] - 1-2 days Time of Disposition: 06:45
[2023-09-15 07:33] VITALS: BP 123/82; PULSE 80; RESP 14
== END 2023-09-15 07:33 | disposition home or self-care (01) ==
LOC: EC 00:25
DX: M79.661 Pain in right lower leg (principal); G90.50 Complex regional pain syndrome I, unspecified; Z88.1 Allergy status to other antibiotic agents; Z88.2 Allergy status to sulfonamides; Z88.5 Allergy status to narcotic agent; Z88.6 Allergy status to analgesic agent; Z88.7 Allergy status to serum and vaccine; Z88.8 Allergy status to other drugs, medicaments and biological substances; Z91.013 Allergy to seafood; Z91.048 Other nonmedicinal substance allergy status
CPT/HCPCS: 99283; 96372 ×4; J1200; J1170; J1885

== ENCOUNTER 2023-09-29 23:30 | Emergency (ER) | payer MEDICARE, OTHER ==
[2023-09-29 23:47] VITALS: TEMP 98
--- NOTE | 2023-09-30 00:03 | ED ---
Neck Injury/Pain HPI - General Chief Complaint: Neck Pain/Injury Stated Complaint: Neck Pain, Headache Time Seen by Provider: 09/29/23 23:43 Source: RN notes reviewed, old records reviewed Mode of arrival: ambulatory Limitations: no limitations - History of Present Illness Initial Comments: This is a 37-year-old female to the ER for evaluation patient presents today for evaluation of pain chronic pain with well-known history of pain issues. Patient been to the ER today for the symptoms headache back pain leg pain foot pain generalized bodyaches and pains MD Complaint: neck pain, upper back pain -: days(s) Place: home Severity: moderate Severity scale (1-10): 4 Quality: stabbing Consistency: intermittent Improves With: none Worsens With: none Associated Symptoms: headache, weakness Treatments Prior to Arrival: none - Related Data Home Medications Medication Instructions Recorded Confirmed Medroxyprogesterone Acetate 150 mg IM Q84D 11/22/13 10/07/20 [Depo-Provera] rOPINIRole HCL [Requip] 1 mg PO BID@0900,1200 11/22/13 10/07/20 Pentosan Polysulfate Sodium 100 mg PO DAILY 02/10/15 10/07/20 [Elmiron] HYDROcodone/APAP 7.5-325MG [[place] 1 tab PO BID 07/20/16 10/07/20 7.5-325] Paliperidone IM Pt Own [Invega 117 mg IM Q28D 07/20/16 10/07/20 Sustenna] amantadine HCL [Symmetrel] 100 mg PO BID 11/21/16 10/07/20 Albuterol Sulfate [Proair Hfa] 2 puff INHALATION RT-QID PRN 01/13/18 10/07/20 Butalb/Acetaminophen/Caffeine 1 tab PO Q8H PRN 01/13/18 10/07/20 [Fioricet 50-325-40] Fluticasone Propionate [Flovent 1 puff INHALATION RT-BID 01/13/18 10/07/20 Hfa 110 mcg] gemfibroziL [Lopid] 600 mg PO BID 01/13/18 10/07/20 Gabapentin [Neurontin] 300 mg PO TID 03/11/18 10/07/20 Gabapentin [Neurontin] 600 mg PO TID 09/16/19 10/07/20 Omeprazole [PriLOSEC] 40 mg PO DAILY 09/16/19 10/07/20 rOPINIRole HCL [Requip] 2 mg PO HS 09/16/19 10/07/20 traZODone HCL 300 mg PO HS 09/16/19 10/07/20 hydrOXYzine pamoate 25 mg PO BID 04/13/20 10/07/20 Cyclobenzaprine [Flexeril] 10 mg PO TID PRN 08/16/20 10/07/20 Fentanyl/Bupivcaine Pain Pump 1 dose INTRATHECA CONTINUOUS 08/16/20 10/07/20 Ibuprofen [Motrin] 600 mg PO TID PRN 10/07/20 10/07/20 diphenhydrAMINE [Benadryl] 50 mg PO DAILY PRN 10/07/20 10/07/20 Previous Rx's Medication Instructions Recorded Erythromycin Ophth Oint [Romycin 1 applic RIGHT EYE QID #1 bottle 10/03/20 Ophth Oint] Ondansetron Odt [Zofran Odt] 4 mg PO Q8HR PRN #14 tab 10/16/20 Ondansetron Odt [Zofran Odt] 4 mg PO Q8HR PRN #10 tab 06/21/21 predniSONE [Deltasone] 20 mg PO BID #10 tab 09/08/21 Cephalexin [Keflex] 500 mg PO Q8HR 7 Days #21 cap 11/25/21 Fluconazole [Diflucan] 150 mg PO ONCE #1 tab 11/25/21 Amoxic-Pot Clav 875-125Mg 1 tab PO Q12HR 7 Days #14 tab 05/02/23 [Augmentin 875-125] Allergies Allergy/AdvReac Type Severity Reaction Status Date / Time azithromycin Allergy Rash/Hives Verified 09/29/23 23:47 [From Zithromax Z-Mehrdad] cimetidine [From Tagamet] Allergy Rash/Hives Verified 09/29/23 23:47 codeine Allergy Nausea & Verified 09/29/23 23:47 Vomiting ether [Ether] Allergy Anaphylaxis Verified 09/29/23 23:47 Fish Containing Products Allergy Anaphylaxis Verified 09/29/23 23:47 [Fish] ibuprofen [From Motrin] Allergy Rash/Hives Verified 09/29/23 23:47 morphine Allergy Unknown Verified 09/29/23 23:47 ziprasidone HCl [From Geodon] Allergy Extrapyramidal Verified 09/29/23 23:47 Symptoms ciprofloxacin [From Cipro] AdvReac Rash/Hives Verified 09/29/23 23:47 fluphenazine HCl AdvReac Extrapyramidal Verified 09/29/23 23:47 [From Prolixin] Symptoms haloperidol [From Haldol] AdvReac Extrapyramidal Verified 09/29/23 23:47 Symptoms Sulfa (Sulfonamide AdvReac Nausea & Verified 09/29/23 23:47 Antibiotics) Vomiting Review of Systems ROS Statement: Those systems with pertinent positive or pertinent negative responses have been documented in the HPI. ROS Other: All systems not noted in ROS Statement are negative. Past Medical History Past Medical History: Asthma, GERD/Reflux, Hyperlipidemia, Musculoskeletal Disorder, Neurologic Disorder, Osteoarthritis (OA), Seizure Disorder Additional Past Medical History / Comment(s): RSD-DERIC FEET, INTERSTITIAL CYSTIT IS, BRONCHITIS, HEMORRHOIDS,MIGRAINES, INSOMNIA. VERTIGO, last seizure 4 years ago, complex regional pain syndrome, RLS. History of Any Multi-Drug Resistant Organisms: MRSA Date of last positivie culture/infection: 04/20/15 MDRO Source:: Left Axilla Past Surgical History: Adenoidectomy, Back Surgery, Cholecystectomy, Orthopedic Surgery, Tonsillectomy Additional Past Surgical History / Comment(s): bilateral foot surgery d/t rsd, numerous pain clinic procedures, nerve stimulator in back to tx RSD placed in Nov 11 2015, pain pump placement, replacement of stimulator 06/2021 Past Anesthesia/Blood Transfusion Reactions: Previous Problems w/ Anesthesia Additional Past Anesthesia/Blood Transfusion Reaction / Comment(s): Pt recieved blood when she was 2 yrs old after tonsillectomy. WHEN BABY HEART STOPPED TWICE- PT STATED SHE WAS ALLERGIC TO ETHER. Past Psychological History: Anxiety, Bipolar, Depression, PTSD Smoking Status: Never smoker Past Alcohol Use History: None Reported Past Drug Use History: Marijuana - Past Family History Father History Unknown: Yes Family Medical History: Diabetes Mellitus Mother Family Medical History: Cancer, CVA/TIA, Diabetes Mellitus, Myocardial Infarction ([place]) Additional Family Medical History / Comment(s): Mother has had 5 CVAs, 3 MIs and UTERINE CANCER General Exam Limitations: no limitations General appearance: alert, in no apparent distress Head exam: Present: atraumatic, normocephalic, normal inspection Eye exam: Present: normal appearance, PERRL, EOMI. Absent: scleral icterus, conjunctival injection, periorbital swelling ENT exam: Present: normal exam, mucous membranes moist Neck exam: Present: normal inspection. Absent: tenderness, meningismus, lymphadenopathy Respiratory exam: Present: normal lung sounds bilaterally. Absent: respiratory distress, wheezes, rales, rhonchi, stridor Cardiovascular Exam: Present: regular rate, normal rhythm, normal heart sounds. Absent: systolic murmur, diastolic murmur, rubs, gallop, clicks GI/Abdominal exam: Present: soft, normal bowel sounds. Absent: distended, tenderness, guarding, rebound, rigid Extremities exam: Present: normal inspection, full ROM, normal capillary refill. Absent: tenderness, pedal edema, joint swelling, calf tenderness Back exam: Present: normal inspection Neurological exam: Present: alert, oriented X3, CN II-XII intact Psychiatric exam: Present: normal affect, normal mood Skin exam: Present: warm, dry, intact, normal color. Absent: rash Course Vital Signs 09/29/23 09/30/23 23:45 00:47 Temperature 98 F Pulse Rate 106 H 94 Respiratory 20 18 Rate Blood Pressure 152/95 128/83 O2 Sat by Pulse 97 97 Oximetry - Reevaluation(s) Reevaluation #1: Medical records reviewed Reevaluation #2: Symptoms improved Reevaluation #3: Informed of results and questions answered Reevaluation #4: Was pt. sent in by a medical professional or institution (, PA, JUNIOR HIGH MATH TEACHER, urgent care, hospital, or custodial...) When possible be specific @ -no Did you speak to anyone other than the patient for history (EMS, parent, family, police, friend...)? What history was obtained from this source @ -no Did you review nursing and triage notes (agree or disagree)? Why? @ -agree Are old charts reviewed (outside hosp., previous admission, EMS record, old EKG, old radiological studies, urgent care reports/EKG's, custodial records)? Report findings @ -yes Differential Diagnosis (chest pain, altered mental status, abdominal pain women, abdominal pain men, vaginal bleeding, weakness, fever, dyspnea, syncope, headache, dizziness, GI bleed, back pain, seizure, CVA, palpatations, mental health, musculoskeletal)? @ -prior EKG interpreted by me (3pts min.). @ -no X-rays interpreted by me (1pt min.). @ -no CT interpreted by me (1pt min.). @ -no U/S interpreted by me (1pt. min.). @ -no What testing was considered but not performed or refused? (CT, X-rays, U/S, labs)? Why? @ -none What meds were considered but not given or refused? Why? @ -none Did you discuss the management of the patient with other professionals (professionals i.e. Dr., PA, JUNIOR HIGH MATH TEACHER, lab, RT, psych nurse, social services specialist, military lawyer, teacher, collection officer, immigration case worker)? Give summary @ -no Was smoking cessation discussed for >3mins.? @ -no Was critical care preformed (if so, how long)? @ -no Were there social determinants of health that impacted care today? How? (Homelessness, low income, unemployed, alcoholism, drug addiction, transp ortation, low edu. Level, literacy, decrease access to med. care, custodial, rehab)? @ -none Was there de-escalation of care discussed even if they declined (Discuss DNR or withdrawal of care, Hospice)? DNR status @ -no What co-morbidities impacted this encounter? (DM, HTN, Smoking, COPD, CAD, Cancer, CVA, ARF, Chemo, Hep., AIDS, mental health diagnosis, sleep apnea, morbid obesity)? @ -none Was patient admitted / discharged? Hospital course, mention meds given and route, prescriptions, significant lab abnormalities, going to OR and other pertinent info. @ - 37 female to ER for evaluation of chronic issues chronic pain. Patient symptoms are resolved here in the ER feels well can be discharged home Discharge Undiagnosed new problem with uncertain prognosis? @ -no Drug Therapy requiring intensive monitoring for toxicity (Heparin, Nitro, Insulin, Cardizem)? @ -no Were any procedures done? @ -no Diagnosis/symptom? @ -Chronic pain Acute, or Chronic, or Acute on Chronic? @ -Acute Uncomplicated (without systemic symptoms) or Complicated (systemic symptoms)? @ -Complicated Side effects of treatment? @ -no Exacerbation, Progression, or Severe Exacerbation? @ -exacerbation Poses a threat to life or bodily function? How? (Chest pain, [place], [place], pneumonia, PE, COPD, DKA, ARF, appy, cholecystitis, CVA, Diverticulitis, Homicidal, Suicidal, threat to staff... and all critical care pts) @ -no Medical Decision Making - Medical Decision Making 37 female to ER for evaluation of chronic issues chronic pain. Patient symptoms are resolved here in the ER feels well can be discharged home Disposition Clinical Impression: Chronic pain, Chronic pain syndrome, Back pain Disposition: HOME SELF-CARE Condition: Good Instructions (If sedation given, give patient instructions): Chronic Back Pain (DC), Back Pain (ED) Is patient prescribed a controlled substance at d/c from ED?: No Referrals: Lior Clemons MD [Primary Care Provider] - 1-2 days
[2023-09-30] MEDS: PROCHLORPERAZINE 10 MG TAB PO STA (00:40)
[2023-09-30] MEDS: diphenhydrAMINE 50 MG CAP PO STA (00:40)
[2023-09-30] MEDS: HYDROmorphone 1 MG/ML 1 ML SYRINGE IM STA (00:41)
[2023-09-30 01:02] VITALS: BP 128/83; PULSE 94; RESP 18
== END 2023-09-30 00:47 | disposition home or self-care (01) ==
LOC: EC 23:30
DX: G89.4 Chronic pain syndrome (principal); M54.9 Dorsalgia, unspecified; Z88.6 Allergy status to analgesic agent; Z88.5 Allergy status to narcotic agent; Z88.2 Allergy status to sulfonamides; Z88.8 Allergy status to other drugs, medicaments and biological substances; Z90.49 Acquired absence of other specified parts of digestive tract
CPT/HCPCS: 99283; 96372; S0183; J1170

== ENCOUNTER 2023-10-10 21:01 | Emergency (ER) | payer MEDICARE, OTHER ==
[2023-10-10 21:26] LABS: Basophils # (A) 0.1 k/uL (0-0.2); Basophils % (A) 1 %; Eosinophils # (A) 0.3 k/uL (0-0.7); Eosinophils % (A) 5 %; HCT 42.8 % (34.0-46.0); HGB 14.5 gm/dL (11.4-16.0); Lymphocytes # (A) 2.6 k/uL (1.0-4.8); Lymphocytes % (A) 40 %; MCH 31.1 pg (25.0-35.0); MCHC 33.8 g/dL (31.0-37.0); MCV 92.1 fL (80.0-100.0); Mean Platelet Volume 7.4; Monocytes # (A) 0.3 k/uL (0-1.0); Monocytes % (A) 5 %; Neutrophils # (A) 3.2 k/uL (1.3-7.7); Neutrophils % (A) 48 %; Platelet Count 230 k/uL (150-450); RBC 4.65 m/uL (3.80-5.40); RDW 12.7 % (11.5-15.5); WBC 6.6 k/uL (3.8-10.6)
[2023-10-10 21:53] LABS: ALT 14 U/L (4-34); AST 22 U/L (14-36); African American GFR (CKD) >90 (>60 ml/min/1.73 sqM); Albumin 4.6 g/dL (3.5-5.0); Alkaline Phosphatase 70 U/L (38-126); Anion Gap 9 mmol/L; Blood Urea Nitrogen 23 mg/dL (7-17); Calcium 9.9 mg/dL (8.4-10.2); Carbon Dioxide 19 mmol/L (22-30); Chloride 108 mmol/L (98-107); Glucose 92 mg/dL (74-99); Non-African American GFR(CKD) >90 (>60 ml/min/1.73 sqM); Potassium 3.6 mmol/L (3.5-5.1); Sodium 136 mmol/L (137-145); Total Bilirubin 0.5 mg/dL (0.2-1.3); Total Protein 6.2 g/dL (6.3-8.2)
[2023-10-10] MEDS: HYDROmorphone 1 MG/ML 1 ML SYRINGE IVP STA (22:31)
[2023-10-10] MEDS: METOCLOPRAMIDE 5 MG/ML 2 ML VIAL IVP STA (22:32)
[2023-10-10] MEDS: ORPHENADRINE 30 MG/ML 2 ML VIAL IVP STA (23:15)
--- NOTE | 2023-10-10 23:34 | ED ---
Headache HPI - General Chief Complaint: Headache Stated Complaint: Neck Pain Time Seen by Provider: 10/10/23 21:35 Mode of arrival: ambulatory Limitations: no limitations - History of Present Illness Initial Comments: 37-year-old female well-known to our ER presenting with chief complaint of neck pain. This has been chronic neck pain ongoing for the last month. No new injury or trauma. She admits to headache she admits to nausea and vomiting secondary to pain. She has full range of motion and strength of the upper extremities. No fever or URI-like symptoms. No vision changes. - Related Data Home Medications Medication Instructions Recorded Confirmed Medroxyprogesterone Acetate 150 mg IM Q84D 11/22/13 10/07/20 [Depo-Provera] rOPINIRole HCL [Requip] 1 mg PO BID@0900,1200 11/22/13 10/07/20 Pentosan Polysulfate Sodium 100 mg PO DAILY 02/10/15 10/07/20 [Elmiron] HYDROcodone/APAP 7.5-325MG [[place] 1 tab PO BID 07/20/16 10/07/20 7.5-325] Paliperidone IM Pt Own [Invega 117 mg IM Q28D 07/20/16 10/07/20 Sustenna] amantadine HCL [Symmetrel] 100 mg PO BID 11/21/16 10/07/20 Albuterol Sulfate [Proair Hfa] 2 puff INHALATION RT-QID PRN 01/13/18 10/07/20 Butalb/Acetaminophen/Caffeine 1 tab PO Q8H PRN 01/13/18 10/07/20 [Fioricet 50-325-40] Fluticasone Propionate [Flovent 1 puff INHALATION RT-BID 01/13/18 10/07/20 Hfa 110 mcg] gemfibroziL [Lopid] 600 mg PO BID 01/13/18 10/07/20 Gabapentin [Neurontin] 300 mg PO TID 03/11/18 10/07/20 Gabapentin [Neurontin] 600 mg PO TID 09/16/19 10/07/20 Omeprazole [PriLOSEC] 40 mg PO DAILY 09/16/19 10/07/20 rOPINIRole HCL [Requip] 2 mg PO HS 09/16/19 10/07/20 traZODone HCL 300 mg PO HS 09/16/19 10/07/20 hydrOXYzine pamoate 25 mg PO BID 04/13/20 10/07/20 Cyclobenzaprine [Flexeril] 10 mg PO TID PRN 08/16/20 10/07/20 Fentanyl/Bupivcaine Pain Pump 1 dose INTRATHECA CONTINUOUS 08/16/20 10/07/20 Ibuprofen [Motrin] 600 mg PO TID PRN 10/07/20 10/07/20 diphenhydrAMINE [Benadryl] 50 mg PO DAILY PRN 10/07/20 10/07/20 Previous Rx's Medication Instructions Recorded Erythromycin Ophth Oint [Romycin 1 applic RIGHT EYE QID #1 bottle 10/03/20 Ophth Oint] Ondansetron Odt [Zofran Odt] 4 mg PO Q8HR PRN #14 tab 10/16/20 Ondansetron Odt [Zofran Odt] 4 mg PO Q8HR PRN #10 tab 06/21/21 predniSONE [Deltasone] 20 mg PO BID #10 tab 09/08/21 Cephalexin [Keflex] 500 mg PO Q8HR 7 Days #21 cap 11/25/21 Fluconazole [Diflucan] 150 mg PO ONCE #1 tab 11/25/21 Amoxic-Pot Clav 875-125Mg 1 tab PO Q12HR 7 Days #14 tab 05/02/23 [Augmentin 875-125] Allergies Allergy/AdvReac Type Severity Reaction Status Date / Time azithromycin Allergy Rash/Hives Verified 09/29/23 23:47 [From Zithromax Z-Mehrdad] cimetidine [From Tagamet] Allergy Rash/Hives Verified 09/29/23 23:47 codeine Allergy Nausea & Verified 09/29/23 23:47 Vomiting ether [Ether] Allergy Anaphylaxis Verified 09/29/23 23:47 Fish Containing Products Allergy Anaphylaxis Verified 09/29/23 23:47 [Fish] ibuprofen [From Motrin] Allergy Rash/Hives Verified 09/29/23 23:47 morphine Allergy Unknown Verified 09/29/23 23:47 ziprasidone HCl [From Geodon] Allergy Extrapyramidal Verified 09/29/23 23:47 Symptoms ciprofloxacin [From Cipro] AdvReac Rash/Hives Verified 09/29/23 23:47 fluphenazine HCl AdvReac Extrapyramidal Verified 09/29/23 23:47 [From Prolixin] Symptoms haloperidol [From Haldol] AdvReac Extrapyramidal Verified 09/29/23 23:47 Symptoms Sulfa (Sulfonamide AdvReac Nausea & Verified 09/29/23 23:47 Antibiotics) Vomiting Review of Systems ROS Statement: Those systems with pertinent positive or pertinent negative responses have been documented in the HPI. ROS Other: All systems not noted in ROS Statement are negative. Past Medical History Past Medical History: Asthma, GERD/Reflux, Hyperlipidemia, Musculoskeletal Disorder, Neurologic Disorder, Osteoarthritis (OA), Seizure Disorder Additional Past Medical History / Comment(s): RSD-DERIC FEET, INTERSTITIAL CYSTITIS, BRONCHITIS, HEMORRHOIDS,MIGRAINES, INSOMNIA. VERTIGO, last seizure 4 years ago, complex regional pain syndrome, RLS. History of Any Multi-Drug Resistant Organisms: MRSA Date of last positivie culture/infection: 04/20/15 MDRO Source:: Left Axilla Past Surgical History: Adenoidectomy, Back Surgery, Cholecystectomy, Orthopedic Surgery, Tonsillectomy Additional Past Surgical History / Comment(s): bilateral foot surgery d/t rsd, numerous pain clinic procedures, nerve stimulator in back to tx RSD placed in Nov 11 2015, pain pump placement, replacement of stimulator 06/2021 Past Anesthesia/Blood Transfusion Reactions: Previous Problems w/ Anesthesia Additional Past Anesthesia/Blood Transfusion Reaction / Comment(s): Pt recieved blood when she was 2 yrs old after tonsillectomy. WHEN BABY HEART STOPPED TWICE- PT STATED SHE WAS ALLERGIC TO ETHER. Past Psychological History: Anxiety, Bipolar, Depression, PTSD Smoking Status: Never smoker Past Alcohol Use History: None Reported Past Drug Use History: Marijuana - Past Family History Father History Unknown: Yes Family Medical History: Diabetes Mellitus Mother Family Medical History: Cancer, CVA/TIA, Diabetes Mellitus, Myocardial Infarction ([place]) Additional Family Medical History / Comment(s): Mother has had 5 CVAs, 3 MIs and UTERINE CANCER General Exam Limitations: no limitations General appearance: alert, anxious Head exam: Present: atraumatic, normocephalic Eye exam: Present: normal appearance, EOMI Neck exam: Present: normal inspection, tenderness (Paraspinal muscle tenderness, no midline tenderness). Absent: meningismus Respiratory exam: Absent: respiratory distress Cardiovascular Exam: Present: regular rate Extremities exam: Present: normal inspection, full ROM Neurological exam: Present: alert, oriented X3 Psychiatric exam: Present: normal affect, normal mood Skin exam: Present: warm, dry Course Vital Signs 10/10/23 10/11/23 21:03 00:04 Temperature 97.5 F L 97.8 F Pulse Rate 89 78 Respiratory 20 18 Rate Blood Pressure 177/91 154/86 O2 Sat by Pulse 99 99 Oximetry Medical Decision Making - Medical Decision Making Was pt. sent in by a medical professional or institution (, CALL[facility], DINING MANAGER, urgent care, hospital, or care home...) When possible be specific @ -No Did you speak to anyone other than the patient for history (EMS, parent, family, police, friend...)? What history was obtained from this source @ -No Did you review nursing and triage notes (agree or disagree)? Why? @ -I reviewed and agree with nursing and triage notes Were old charts reviewed (outside hosp., previous admission, EMS record, old EKG, old radiological studies, urgent care reports/EKG's, care home records)? Report findings @ -No old charts were reviewed Differential Diagnosis (chest pain, altered mental status, abdominal pain women, abdominal pain men, vaginal bleeding, weakness, fever, dyspnea, syncope, headache, dizziness, GI bleed, back pain, seizure, CVA, palpatations, mental health, musculoskeletal)? @ -Differential includes sprain, strain, radiculopathy, meningitis, this is not an all-inclusive list EKG interpreted by me (3pts min.). @ -As above X-rays interpreted by me (1pt min.). @ -None done CT interpreted by me (1pt min.). @ -None done U/S interpreted by me (1pt. min.). @ -None done What testing was considered but not performed or refused? (CT, X-rays, U/S, labs)? Why? @ -None What meds were considered but not given or refused? Why? @ -None Did you discuss the management of the patient with other professionals (pro fessionals i.e. CALLUM Estes, DINING MANAGER, lab, RT, psych nurse, social media marketing analyst, hull and deck remover, teacher, army officer, case manager specialist)? Give summary @ -No Was smoking cessation discussed for >3mins.? @ -No Was critical care preformed (if so, how long)? @ -No Were there social determinants of health that impacted care today? How? (Homelessness, low income, unemployed, alcoholism, drug addiction, transportation, low edu. Level, literacy, decrease access to med. care, correction, rehab)? @ -No Was there de-escalation of care discussed even if they declined (Discuss DNR or withdrawal of care, Hospice)? DNR status @ -No What co-morbidities impacted this encounter? (DM, HTN, Smoking, COPD, CAD, Cancer, CVA, ARF, Chemo, Hep., AIDS, mental health diagnosis, sleep apnea, morbid obesity)? @ -None Was patient admitted / discharged? Hospital course, mention meds given and route, prescriptions, significant lab abnormalities, going to OR and other pertinent info. @ -37-year-old female presenting with chief complaint of neck pain. This is chronic pain that has been ongoing for over a month. No injury or trauma. Germaine ent is treated with pain medication and reports significant improvement. She would like to be discharged home. Follow-up with PCP. Report back to ER with any new or worsening symptoms. Discussed return parameters and answered all questions. Patient conveyed verbal understanding and agreed to the plan. I discussed this case in detail with my attending Dr. Hoang Undiagnosed new problem with uncertain prognosis? @ -No Drug Therapy requiring intensive monitoring for toxicity (Heparin, Nitro, Insulin, Cardizem)? @ -No Were any procedures done? @ -No Diagnosis/symptom? @ -Neck pain Acute, or Chronic, or Acute on Chronic? @ -Acute on chronic Uncomplicated (without systemic symptoms) or Complicated (systemic symptoms)? @ -Uncomplicated Side effects of treatment? @ -No Exacerbation, Progression, or Severe Exacerbation? @ -No Poses a threat to life or bodily function? How? (Chest pain, [place], [place], pneumonia, PE, COPD, DKA, ARF, appy, cholecystitis, CVA, Diverticulitis, Homicidal, Suic idal, threat to staff... and all critical care pts) @ -No - Lab Data Result diagrams: 10/10/23 21:15 10/10/23 21:15 Lab Results 10/10/23 10/10/23 Range/Units 21:15 21:15 WBC 6.6 (3.8-10.6) k/uL RBC 4.65 (3.80-5.40) m/uL Hgb 14.5 (11.4-16.0) gm/dL Hct 42.8 (34.0-46.0) % MCV 92.1 (80.0-100.0) fL MCH 31.1 (25.0-35.0) pg MCHC 33.8 (31.0-37.0) g/dL RDW 12.7 (11.5-15.5) % Plt Count 230 (150-450) k/uL MPV 7.4 Neutrophils % 48 % Lymphocytes % 40 % Monocytes % 5 % Eosinophils % 5 % Basophils % 1 % Neutrophils # 3.2 (1.3-7.7) k/uL Lymphocytes # 2.6 (1.0-4.8) k/uL Monocytes # 0.3 (0-1.0) k/uL Eosinophils # 0.3 (0-0.7) k/uL Basophils # 0.1 (0-0.2) k/uL Sodium 136 L (137-145) mmol/L Potassium 3.6 (3.5-5.1) mmol/L Chloride 108 H (98-107) mmol/L Carbon Dioxide 19 L (22-30) mmol/L Anion Gap 9 mmol/L BUN 23 H (7-17) mg/dL Creatinine 0.74 (0.52-1.04) mg/dL Est GFR (CKD-EPI)AfAm >90 (>60 ml/min/1.73 sqM) Est GFR (CKD-EPI)NonAf >90 (>60 ml/min/1.73 sqM) Glucose 92 (74-99) mg/dL Calcium 9.9 (8.4-10.2) mg/dL Total Bilirubin 0.5 (0.2-1.3) mg/dL AST 22 (14-36) U/L ALT 14 (4-34) U/L Alkaline Phosphatase 70 (38-126) U/L Total Protein 6.2 L (6.3-8.2) g/dL Albumin 4.6 (3.5-5.0) g/dL Disposition Clinical Impression: Chronic pain Disposition: HOME SELF-CARE Condition: Good Instructions (If sedation given, give patient instructions): Neck Pain (ED) Additional Instructions: Follow-up with PCP. Report back to ER with any new or worsening symptoms. Is patient prescribed a controlled substance at d/c from ED?: No Referrals: Lior Clemons MD [Primary Care Provider] - 1-2 days Time of Disposition: 23:34
[2023-10-10] MEDS: diphenhydrAMINE 50 MG/ML 1 ML VIAL IM STA (23:50)
[2023-10-10] MEDS: KETOROLAC 15 MG/ML 1 ML VIAL IM STA (23:51)
[2023-10-10] MEDS: diphenhydrAMINE 50 MG/ML 1 ML VIAL IVP STA (23:55)
[2023-10-10] MEDS: KETOROLAC 15 MG/ML 1 ML VIAL IVP STA (23:56)
[2023-10-11 00:05] VITALS: BP 154/86; PULSE 78; RESP 18; TEMP 97.8
== END 2023-10-11 00:05 | disposition home or self-care (01) ==
LOC: EC 21:01
DX: G89.29 Other chronic pain (principal); M54.2 Cervicalgia; Z88.1 Allergy status to other antibiotic agents; Z88.5 Allergy status to narcotic agent; Z91.013 Allergy to seafood; Z91.09 Other allergy status, other than to drugs and biological substances; Z88.6 Allergy status to analgesic agent; Z88.2 Allergy status to sulfonamides; Z88.8 Allergy status to other drugs, medicaments and biological substances
CPT/HCPCS: 36415; 93005; 80053; 85025; 96374; 96375 ×4; 99283; J1200; J2360; J2765; J1170; J1885

== ENCOUNTER 2023-10-13 21:19 | Emergency (ER) | payer MEDICARE, OTHER ==
[2023-10-13 21:32] VITALS: TEMP 98
--- NOTE | 2023-10-13 22:09 | ED ---
General Adult HPI - General Chief complaint: Abdominal Pain Stated complaint: puking, pain in stomach Time Seen by Provider: 10/13/23 22:08 Source: patient, RN notes reviewed Mode of arrival: ambulatory Limitations: no limitations - History of Present Illness Initial comments: Quick note: 37-year-old female presents to the emergency department for evalu ation of right-sided abdominal pain and back pain. Neck pain is chronic in nature. She does report a prior cholecystectomy. She admits to vomiting and states she is having trouble holding down food. - Related Data Home Medications Medication Instructions Recorded Confirmed Medroxyprogesterone Acetate 150 mg IM Q84D 11/22/13 10/07/20 [Depo-Provera] rOPINIRole HCL [Requip] 1 mg PO BID@0900,1200 11/22/13 10/07/20 Pentosan Polysulfate Sodium 100 mg PO DAILY 02/10/15 10/07/20 [Elmiron] HYDROcodone/APAP 7.5-325MG [[place] 1 tab PO BID 07/20/16 10/07/20 7.5-325] Paliperidone IM Pt Own [Invega 117 mg IM Q28D 07/20/16 10/07/20 Sustenna] amantadine HCL [Symmetrel] 100 mg PO BID 11/21/16 10/07/20 Albuterol Sulfate [Proair Hfa] 2 puff INHALATION RT-QID PRN 01/13/18 10/07/20 Butalb/Acetaminophen/Caffeine 1 tab PO Q8H PRN 01/13/18 10/07/20 [Fioricet 50-325-40] Fluticasone Propionate [Flovent 1 puff INHALATION RT-BID 01/13/18 10/07/20 Hfa 110 mcg] gemfibroziL [Lopid] 600 mg PO BID 01/13/18 10/07/20 Gabapentin [Neurontin] 300 mg PO TID 03/11/18 10/07/20 Gabapentin [Neurontin] 600 mg PO TID 09/16/19 10/07/20 Omeprazole [PriLOSEC] 40 mg PO DAILY 09/16/19 10/07/20 rOPINIRole HCL [Requip] 2 mg PO HS 09/16/19 10/07/20 traZODone HCL 300 mg PO HS 09/16/19 10/07/20 hydrOXYzine pamoate 25 mg PO BID 04/13/20 10/07/20 Cyclobenzaprine [Flexeril] 10 mg PO TID PRN 08/16/20 10/07/20 Fentanyl/Bupivcaine Pain Pump 1 dose INTRATHECA CONTINUOUS 08/16/20 10/07/20 Ibuprofen [Motrin] 600 mg PO TID PRN 10/07/20 10/07/20 diphenhydrAMINE [Benadryl] 50 mg PO DAILY PRN 10/07/20 10/07/20 Previous Rx's Medication Instructions Recorded Erythromycin Ophth Oint [Romycin 1 applic RIGHT EYE QID #1 bottle 10/03/20 Ophth Oint] Ondansetron Odt [Zofran Odt] 4 mg PO Q8HR PRN #14 tab 10/16/20 Ondansetron Odt [Zofran Odt] 4 mg PO Q8HR PRN #10 tab 06/21/21 predniSONE [Deltasone] 20 mg PO BID #10 tab 09/08/21 Cephalexin [Keflex] 500 mg PO Q8HR 7 Days #21 cap 11/25/21 Fluconazole [Diflucan] 150 mg PO ONCE #1 tab 11/25/21 Amoxic-Pot Clav 875-125Mg 1 tab PO Q12HR 7 Days #14 tab 05/02/23 [Augmentin 875-125] Ondansetron Odt [Zofran Odt] 8 mg PO Q8HR #9 tab 10/14/23 Allergies Allergy/AdvReac Type Severity Reaction Status Date / Time azithromycin Allergy Rash/Hives Verified 10/13/23 21:32 [From Zithromax Z-Mehrdad] cimetidine [From Tagamet] Allergy Rash/Hives Verified 10/13/23 21:32 codeine Allergy Nausea & Verified 10/13/23 21:32 Vomiting ether [Ether] Allergy Anaphylaxis Verified 10/13/23 21:32 Fish Containing Products Allergy Anaphylaxis Verified 10/13/23 21:32 [Fish] ibuprofen [From Motrin] Allergy Rash/Hives Verified 10/13/23 21:32 morphine Allergy Unknown Verified 10/13/23 21:32 ziprasidone HCl [From Geodon] Allergy Extrapyramidal Verified 10/13/23 21:32 Symptoms ciprofloxacin [From Cipro] AdvReac Rash/Hives Verified 10/13/23 21:32 fluphenazine HCl AdvReac Extrapyramidal Verified 10/13/23 21:32 [From Prolixin] Symptoms haloperidol [From Haldol] AdvReac Extrapyramidal Verified 09/29/23 23:47 Symptoms Sulfa (Sulfonamide AdvReac Nausea & Verified 09/29/23 23:47 Antibiotics) Vomiting Review of Systems ROS Statement: Those systems with pertinent positive or pertinent negative responses have been documented in the HPI. ROS Other: All systems not noted in ROS Statement are negative. Past Medical History Past Medical History: Asthma, GERD/Reflux, Hyperlipidemia, Musculoskeletal Disorder, Neurologic Disorder, Osteoarthritis (OA), Seizure Disorder Additional Past Medical History / Comment(s): RSD-DERIC FEET, INTERSTITIAL CYSTITIS, BRONCHITIS, HEMORRHOIDS,MIGRAINES, INSOMNIA. VERTIGO, last seizure 4 years ago, complex regional pain syndrome, RLS. History of Any Multi-Drug Resistant Organisms: MRSA Date of last positivie culture/infection: 04/20/15 MDRO Source:: Left Axilla Past Surgical History: Adenoidectomy, Back Surgery, Cholecystectomy, Orthopedic Surgery, Tonsillectomy Additional Past Surgical History / Comment(s): bilateral foot surgery d/t rsd, numerous pain clinic procedures, nerve stimulator in back to tx RSD placed in Nov 11 2015, pain pump placement, replacement of stimulator 06/2021 Past Anesthesia/Blood Transfusion Reactions: Previous Problems w/ Anesthesia Additional Past Anesthesia/Blood Transfusion Reaction / Comment(s): Pt recieved blood when she was 2 yrs old after tonsillectomy. WHEN BABY HEART STOPPED TWICE- PT STATED SHE WAS ALLERGIC TO ETHER. Past Psychological History: Anxiety, Bipolar, Depression, PTSD Smoking Status: Never smoker Past Alcohol Use History: None Reported Past Drug Use History: Marijuana - Past Family History Father History Unknown: Yes Family Medical History: Diabetes Mellitus Mother Family Medical History: Cancer, CVA/TIA, Diabetes Mellitus, Myocardial Infarction ([place]) Additional Family Medical History / Comment(s): Mother has had 5 CVAs, 3 MIs and UTERINE CANCER General Exam - General Exam Comments Initial Comments: Visual Physical Exam Vital signs reviewed General: Well-appearing, nontoxic, no acute distress. Head: Normocephalic, atraumatic Eyes: PERRLA, EOMI ENT: Airway patent Chest: Nonlabored breathing Skin: No visual rash, normal skin tone Neuro: Alert and oriented 3 Musculoskeletal: No gross abnormalities Limitations: no limitations Course Vital Signs 10/13/23 10/14/23 21:28 01:19 Temperature 98.0 F Pulse Rate 116 H 98 Respiratory 22 18 Rate Blood Pressure 139/99 127/81 O2 Sat by Pulse 98 97 Oximetry Medical Decision Making - Medical Decision Making Quick note preformed and electronically signed by Verenice Ortega PA-C - Lab Data Result diagrams: 10/13/23 23:59 10/13/23 23:59 Lab Results 10/13/23 10/13/23 10/14/23 Range/Units 23:59 23:59 01:00 WBC 9.0 (3.8-10.6) k/uL RBC 4.84 (3.80-5.40) m/uL Hgb 15.0 (11.4-16.0) gm/dL Hct 44.8 (34.0-46.0) % MCV 92.6 (80.0-100.0) fL MCH 31.0 (25.0-35.0) pg MCHC 33.4 (31.0-37.0) g/dL RDW 12.7 (11.5-15.5) % Plt Count 288 (150-450) k/uL MPV 7.9 Neutrophils % 64 % Lymphocytes % 29 % Monocytes % 3 % Eosinophils % 2 % Basophils % 1 % Neutrophils # 5.7 (1.3-7.7) k/uL Lymphocytes # 2.6 (1.0-4.8) k/uL Monocytes # 0.3 (0-1.0) k/uL Eosinophils # 0.2 (0-0.7) k/uL Basophils # 0.0 (0-0.2) k/uL Sodium 138 (137-145) mmol/L Potassium 4.0 (3.5-5.1) mmol/L Chloride 109 H (98-107) mmol/L Carbon Dioxide 19 L (22-30) mmol/L Anion Gap 10 mmol/L BUN 15 (7-17) mg/dL Creatinine 0.65 (0.52-1.04) mg/dL Est GFR (CKD-EPI)AfAm >90 (>60 ml/min/1.73 sqM) Est GFR (CKD-EPI)NonAf >90 (>60 ml/min/1.73 sqM) Glucose 109 H (74-99) mg/dL Calcium 9.9 (8.4-10.2) mg/dL Total Bilirubin 0.4 (0.2-1.3) mg/dL AST 16 (14-36) U/L ALT 12 (4-34) U/L Alkaline Phosphatase 76 (38-126) U/L Total Protein 6.8 (6.3-8.2) g/dL Albumin 4.7 (3.5-5.0) g/dL Amylase 62 (30-110) U/L Lipase 53 (23-300) U/L Urine Color Yellow Urine Appearance Cloudy H (Clear) Urine pH 6.0 (5.0-8.0) Ur Specific [place] 1.033 (1.001-1.035) Urine Protein 1+ H (Negative) Urine Glucose (UA) Negative (Negative) Urine Ketones 2+ H (Negative) Urine Blood Negative (Negative) Urine Nitrite Negative (Negative) Urine Bilirubin Negative (Negative) Urine Urobilinogen 2.0 (<2.0) mg/dL Ur Leukocyte Esterase Negative (Negative) Urine RBC 1 (0-5) /hpf Urine WBC 2 (0-5) /hpf Ur Squamous Epith Cells 15 H (0-4) /hpf Urine Bacteria Rare H (None) /hpf Urine Mucus Many H (None) /hpf Urine Yeast (Budding) Rare H (None) /hpf Disposition Clinical Impression: Back pain, Abdominal pain Disposition: HOME SELF-CARE Condition: Stable Instructions (If sedation given, give patient instructions): Abdominal Pain (ED) Additional Instructions: Please follow up with your primary care provider. Return to the emergency de partment for new or worsening symptoms. Prescriptions: Ondansetron Odt [Zofran Odt] 8 mg PO Q8HR #9 tab Is patient prescribed a controlled substance at d/c from ED?: No Referrals: Lior Clemons MD [Primary Care Provider] - 1-2 days
--- NOTE | 2023-10-13 22:09 | XR ---
EXAMINATION TYPE: XR KUB DATE OF EXAM: 10/13/2023 9:50 PM CLINICAL INDICATION:Female, 37 years old with history of abdominal pain; [facility] COMPARISON: 09/12/2016. TECHNIQUE: One radiographic view of the abdomen was obtained. FINDINGS: The bowel gas pattern is nonspecific without dilated loops of small or large bowel. . Fecal material and gas are demonstrated throughout the colon and rectum. There is no evidence for organomegaly or pneumoperitoneum. The osseous structures are intact. No ab normal calcifications are present. There are stimulator leads and devices project over the abdomen. Quadrant course significance. IMPRESSION: Nonspecific bowel gas pattern without radiographic evidence for acute process.
[2023-10-14] MEDS: METOCLOPRAMIDE 5 MG/ML 2 ML VIAL IVP STA (00:20)
[2023-10-14] MEDS: SODIUM CHLORIDE 0.9% 1,000 ML IV ONE (00:21)
[2023-10-14 00:22] LABS: Basophils % (A) 1 %; Eosinophils # (A) 0.2 k/uL (0-0.7); Eosinophils % (A) 2 %; HCT 44.8 % (34.0-46.0); Lymphocytes # (A) 2.6 k/uL (1.0-4.8); Lymphocytes % (A) 29 %; MCHC 33.4 g/dL (31.0-37.0); MCV 92.6 fL (80.0-100.0); Mean Platelet Volume 7.9; Monocytes # (A) 0.3 k/uL (0-1.0); Monocytes % (A) 3 %; Neutrophils # (A) 5.7 k/uL (1.3-7.7); Neutrophils % (A) 64 %; Platelet Count 288 k/uL (150-450); RBC 4.84 m/uL (3.80-5.40); RDW 12.7 % (11.5-15.5)
[2023-10-14] MEDS: HYDROmorphone 1 MG/ML 1 ML SYRINGE IVP STA (00:22)
[2023-10-14 00:35] LABS: ALT 12 U/L (4-34); AST 16 U/L (14-36); African American GFR (CKD) >90 (>60 ml/min/1.73 sqM); Albumin 4.7 g/dL (3.5-5.0); Alkaline Phosphatase 76 U/L (38-126); Amylase 62 U/L (30-110); Anion Gap 10 mmol/L; Blood Urea Nitrogen 15 mg/dL (7-17); Calcium 9.9 mg/dL (8.4-10.2); Carbon Dioxide 19 mmol/L (22-30); Chloride 109 mmol/L (98-107); Glucose 109 mg/dL (74-99); Lipase 53 U/L (23-300); Non-African American GFR(CKD) >90 (>60 ml/min/1.73 sqM); Sodium 138 mmol/L (137-145); Total Bilirubin 0.4 mg/dL (0.2-1.3); Total Protein 6.8 g/dL (6.3-8.2)
[2023-10-14] MEDS: diphenhydrAMINE 50 MG/ML 1 ML VIAL IVP STA (00:37)
[2023-10-14] MEDS: KETOROLAC 15 MG/ML 1 ML VIAL IVP STA (00:40)
[2023-10-14 01:20] VITALS: RESP 18
[2023-10-14 01:24] LABS: Appearance,Urine Cloudy (Clear); Bacteria,Urine Rare /hpf; Bilirubin,Urine Negative (Negative); Blood,Urine Negative (Negative); Budding Yeast,Urine Rare /hpf; Color,Urine Yellow; Glucose,Urine (UA) Negative (Negative); Ketones,Urine 2+ (Negative); Leukocyte Esterase,Urine Negative (Negative); Mucus,Urine Many /hpf; Nitrite,Urine Negative (Negative); Protein,Urine 1+ (Negative); RBC,Urine 1 /hpf (0-5); Specific Gravity,Urine 1.033 (1.001-1.035); Squamous Epithelial Cell,Urine 15 /hpf (0-4); WBC,Urine 2 /hpf (0-5)
[2023-10-14] MEDS: ONDANSETRON 4 MG ODT STARTER PACK 2 TAB BTL PO STA (01:49)
[2023-10-14] MEDS: HYDROmorphone 0.5 MG/0.5 ML SYRINGE IVP STA (01:50)
[2023-10-14 02:07] VITALS: BP 122/89; PULSE 89
== END 2023-10-14 02:09 | disposition home or self-care (01) ==
LOC: EC 21:19
DX: R10.9 Unspecified abdominal pain (principal); M54.9 Dorsalgia, unspecified; Z88.2 Allergy status to sulfonamides; Z88.5 Allergy status to narcotic agent; Z91.013 Allergy to seafood; Z88.1 Allergy status to other antibiotic agents; Z88.8 Allergy status to other drugs, medicaments and biological substances
CPT/HCPCS: 36415; 80053; 82150; 83690; 85025; 81001; 74018; 99284; 96374; 96375 ×3; 96376; 96361; J1200; J2765; J1170 ×2; J1885; S0119

== ENCOUNTER 2023-10-23 23:26 | Emergency (ER) | payer MEDICARE, OTHER ==
[2023-10-23 23:41] VITALS: RESP 18
--- NOTE | 2023-10-24 00:02 | ED ---
Lower Extremity Injury HPI - General Chief Complaint: Extremity Injury, Lower Stated Complaint: Leg Pain Time Seen by Provider: 10/23/23 23:43 Source: patient, RN notes reviewed, old records reviewed Mode of arrival: wheelchair Limitations: no limitations - History of Present Illness Initial Comments: This is a 37-year-old female to the ER for evaluation today. Patient presents today for evaluation of acute on chronic pain history of chronic pain regional chronic pain syndrome patient is presenting for pain evaluation today MD Complaint: leg injury -: hour(s) Injury: Leg: Left Type of Injury: blunt Place: home Severity: mild, severe Severity scale (1-10): 8 Improves With: nothing Worsens With: weight bearing Context: direct blow - Related Data Home Medications Medication Instructions Recorded Confirmed Medroxyprogesterone Acetate 150 mg IM Q84D 11/22/13 10/07/20 [Depo-Provera] rOPINIRole HCL [Requip] 1 mg PO BID@0900,1200 11/22/13 10/07/20 Pentosan Polysulfate Sodium 100 mg PO DAILY 02/10/15 10/07/20 [Elmiron] HYDROcodone/APAP 7.5-325MG [[place] 1 tab PO BID 07/20/16 10/07/20 7.5-325] Paliperidone IM Pt Own [Invega 117 mg IM Q28D 07/20/16 10/07/20 Sustenna] amantadine HCL [Symmetrel] 100 mg PO BID 11/21/16 10/07/20 Albuterol Sulfate [Proair Hfa] 2 puff INHALATION RT-QID PRN 01/13/18 10/07/20 Butalb/Acetaminophen/Caffeine 1 tab PO Q8H PRN 01/13/18 10/07/20 [Fioricet 50-325-40] Fluticasone Propionate [Flovent 1 puff INHALATION RT-BID 01/13/18 10/07/20 Hfa 110 mcg] gemfibroziL [Lopid] 600 mg PO BID 01/13/18 10/07/20 Gabapentin [Neurontin] 300 mg PO TID 03/11/18 10/07/20 Gabapentin [Neurontin] 600 mg PO TID 09/16/19 10/07/20 Omeprazole [PriLOSEC] 40 mg PO DAILY 09/16/19 10/07/20 rOPINIRole HCL [Requip] 2 mg PO HS 09/16/19 10/07/20 traZODone HCL 300 mg PO HS 09/16/19 10/07/20 hydrOXYzine pamoate 25 mg PO BID 04/13/20 10/07/20 Cyclobenzaprine [Flexeril] 10 mg PO TID PRN 08/16/20 10/07/20 Fentanyl/Bupivcaine Pain Pump 1 dose INTRATHECA CONTINUOUS 08/16/20 10/07/20 Ibuprofen [Motrin] 600 mg PO TID PRN 10/07/20 10/07/20 diphenhydrAMINE [Benadryl] 50 mg PO DAILY PRN 10/07/20 10/07/20 Previous Rx's Medication Instructions Recorded Erythromycin Ophth Oint [Romycin 1 applic RIGHT EYE QID #1 bottle 10/03/20 Ophth Oint] Ondansetron Odt [Zofran Odt] 4 mg PO Q8HR PRN #14 tab 10/16/20 Ondansetron Odt [Zofran Odt] 4 mg PO Q8HR PRN #10 tab 06/21/21 predniSONE [Deltasone] 20 mg PO BID #10 tab 09/08/21 Cephalexin [Keflex] 500 mg PO Q8HR 7 Days #21 cap 11/25/21 Fluconazole [Diflucan] 150 mg PO ONCE #1 tab 11/25/21 Amoxic-Pot Clav 875-125Mg 1 tab PO Q12HR 7 Days #14 tab 05/02/23 [Augmentin 875-125] Ondansetron Odt [Zofran Odt] 8 mg PO Q8HR #9 tab 10/14/23 Allergies Allergy/AdvReac Type Severity Reaction Status Date / Time azithromycin Allergy Rash/Hives Verified 10/13/23 21:32 [From Zithromax Z-Mehrdad] cimetidine [From Tagamet] Allergy Rash/Hives Verified 10/13/23 21:32 codeine Allergy Nausea & Verified 10/13/23 21:32 Vomiting ether [Ether] Allergy Anaphylaxis Verified 10/13/23 21:32 Fish Containing Products Allergy Anaphylaxis Verified 10/13/23 21:32 [Fish] ibuprofen [From Motrin] Allergy Rash/Hives Verified 10/13/23 21:32 morphine Allergy Unknown Verified 10/13/23 21:32 ziprasidone HCl [From Geodon] Allergy Extrapyramidal Verified 10/13/23 21:32 Symptoms ciprofloxacin [From Cipro] AdvReac Rash/Hives Verified 10/13/23 21:32 fluphenazine HCl AdvReac Extrapyramidal Verified 10/13/23 21:32 [From Prolixin] Symptoms haloperidol [From Haldol] AdvReac Extrapyramidal Verified 09/29/23 23:47 Symptoms Sulfa (Sulfonamide AdvReac Nausea & Verified 09/29/23 23:47 Antibiotics) Vomiting Review of Systems ROS Statement: Those systems with pertinent positive or pertinent negative responses have been documented in the HPI. ROS Other: All systems not noted in ROS Statement are negative. Past Medical History Past Medical History: Asthma, GERD/Reflux, Hyperlipidemia, Musculoskeletal Disorder, Neurologic Disorder, Osteoarthritis (OA), Seizure Disorder Additional Past Medical History / Comment(s): RSD-DERIC FEET, INTERSTITIAL CYSTITIS, BRONCHITIS, HEMORRHOIDS,MIGRAINES, INSOMNIA. VERTIGO, last seizure 4 years ago, complex regional pain syndrome, RLS. History of Any Multi-Drug Resistant Organisms: MRSA Date of last positivie culture/infection: 04/20/15 MDRO Source:: Left Axilla Past Surgical History: Adenoidectomy, Back Surgery, Cholecystectomy, Orthopedic Surgery, Tonsillectomy Additional Past Surgical History / Comment(s): bilateral foot surgery d/t rsd, numerous pain clinic procedures, nerve stimulator in back to tx RSD placed in Nov 11 2015, pain pump placement, replacement of stimulator 06/2021 Past Anesthesia/Blood Transfusion Reactions: Previous Problems w/ Anesthesia Additional Past Anesthesia/Blood Transfusion Reaction / Comment(s): Pt recieved blood when she was 2 yrs old after tonsillectomy. WHEN BABY HEART STOPPED TWICE- PT STATED SHE WAS ALLERGIC TO ETHER. Past Psychological History: Anxiety, Bipolar, Depression, PTSD Smoking Status: Never smoker Past Alcohol Use History: None Reported Past Drug Use History: Marijuana - Past Family History Father History Unknown: Yes Family Medical History: Diabetes Mellitus Mother Family Medical History: Cancer, CVA/TIA, Diabetes Mellitus, Myocardial Infarction ([place]) Additional Family Medical History / Comment(s): Mother has had 5 CVAs, 3 MIs and UTERINE CANCER General Exam General appearance: alert, in no apparent distress Head exam: Present: atraumatic, normocephalic, normal inspection Eye exam: Present: normal appearance, PERRL, EOMI. Absent: scleral icterus, conjunctival injection, periorbital swelling ENT exam: Present: normal exam, mucous membranes moist Neck exam: Present: normal inspection. Absent: tenderness, meningismus, lymphadenopathy Respiratory exam: Present: normal lung sounds bilaterally. Absent: respiratory distress, wheezes, rales, rhonchi, stridor Cardiovascular Exam: Present: regular rate, normal rhythm, normal heart sounds. Absent: systolic murmur, diastolic murmur, rubs, gallop, clicks GI/Abdominal exam: Present: soft, normal bowel sounds. Absent: distended, tenderness, guarding, rebound, rigid Extremities exam: Present: normal inspection, full ROM, normal capillary refill. Absent: tenderness, pedal edema, joint swelling, calf tenderness Back exam: Present: normal inspection Neurological exam: Present: alert, oriented X3, CN II-XII intact Psychiatric exam: Present: normal affect, normal mood Skin exam: Present: warm, dry, intact, normal color. Absent: rash Course Vital Signs 10/23/23 10/24/23 23:36 00:59 Temperature 97.5 F L 97.6 F Pulse Rate 94 91 Respiratory 18 18 Rate Blood Pressure 120/71 125/74 O2 Sat by Pulse 98 98 Oximetry - Reevaluation(s) Reevaluation #1: 10/24/23 00:44 Medical records reviewed Reevaluation #2: 10/24/23 00:44 Symptoms improved Reevaluation #3: 10/24/23 00:44 Patient informed of results and questions answered Reevaluation #4: Was pt. sent in by a medical professional or institution (, PA, SEO SPECIALIST, urgent care, hospital, or fdc...) When possible be specific @ -no Did you speak to anyone other than the patient for history (EMS, parent, family, police, friend...)? What history was obtained from this source @ -no Did you review nursing and triage notes (agree or disagree)? Why? @ -agree Are old charts reviewed (outside hosp., previous admission, EMS record, old EKG, old radiological studies, urgent care reports/EKG's, fdc records)? Report findings @ -yes Differential Diagnosis (chest pain, altered mental status, abdominal pain women, abdominal pain men, vaginal bleeding, weakness, fever, dyspnea, syncope, headache, dizziness, GI bleed, back pain, seizure, CVA, palpatations, mental health, musculoskeletal)? @ -prior EKG interpreted by me (3pts min.). @ -no X-rays interpreted by me (1pt min.). @ -no CT interpreted by me (1pt min.). @ -no U/S interpreted by me (1pt. min.). @ -no What testing was considered but not performed or refused? (CT, X-rays, U/S, labs)? Why? @ -none What meds were considered but not given or refused? Why? @ -none Did you discuss the management of the patient with other professionals (professionals i.e. , PA, SEO SPECIALIST, lab, RT, psych nurse, social service director, process area supervisor, teacher, campus safety officer, caser in)? Give summary @ -no Was smoking cessation discussed for >3mins.? @ -no Was critical care preformed (if so, how long)? @ -no Were there social determinants of health that impacted care today? How? (Homelessness, low income, unemployed, alcoholism, drug addiction, transportation, low edu. Level, literacy, decrease access to med. care, retirement, rehab)? @ -none Was there de-escalation of care discussed even if they declined (Discuss DNR or withdrawal of care, Hospice)? DNR status @ -no What co-morbidities impacted this encounter? (DM, HTN, Smoking, COPD, CAD, Cancer, CVA, ARF, Chemo, Hep., AIDS, mental health diagnosis, sleep apnea, morbid obesity)? @ -none Was patient admitted / discharged? Hospital course, mention meds given and route, prescriptions, significant lab abnormalities, going to OR and other pertinent info. @ - 37 female to the ER for evaluation of acute on chronic pain. Recent leg injury but nonsignificant. Patient is adequately pain controlled here in the ER and can be discharged home Discharged Undiagnosed new problem with uncertain prognosis? @ -no Drug Therapy requiring intensive monitoring for toxicity (Heparin, Nitro, Insulin, Cardizem)? @ -no Were any procedures done? @ -no Diagnosis/symptom? @ -Chronic pain Acute, or Chronic, or Acute on Chronic? @ -Acute Uncomplicated (without systemic symptoms) or Complicated (systemic symptoms)? @ -Complicated Side effects of treatment? @ -no Exacerbation, Progression, or Severe Exacerbation? @ -exacerbation Poses a threat to life or bodily function? How? (Chest pain, [place], [place], pneumonia, PE, COPD, DKA, ARF, appy, cholecystitis, CVA, Diverticulitis, Homicidal, Suicidal, threat to staff... and all critical care pts) @ -no Medical Decision Making - Medical Decision Making 37 female to the ER for evaluation of acute on chronic pain. Recent leg injury but nonsignificant. Patient is adequately pain controlled here in the ER and can be discharged home Disposition Clinical Impression: Leg pain, Chronic pain Disposition: HOME SELF-CARE Condition: Good Instructions (If sedation given, give patient instructions): Pain Management (ED), Chronic Pain (ED) Is patient prescribed a controlled substance at d/c from ED?: No Referrals: Lior Clemons MD [Primary Care Provider] - 1-2 days Time of Disposition: 23:55
[2023-10-24] MEDS: HYDROmorphone 1 MG/ML 1 ML SYRINGE IM STA (00:42)
[2023-10-24] MEDS: diphenhydrAMINE 50 MG CAP PO STA (00:43)
[2023-10-24] MEDS: PROCHLORPERAZINE 10 MG TAB PO STA (00:43)
[2023-10-24 01:00] VITALS: BP 125/74; PULSE 91; TEMP 97.6
== END 2023-10-24 01:07 | disposition home or self-care (01) ==
LOC: EC 23:26
DX: G89.29 Other chronic pain (principal); M79.605 Pain in left leg; Z88.5 Allergy status to narcotic agent; Z88.2 Allergy status to sulfonamides; Z88.1 Allergy status to other antibiotic agents; Z88.6 Allergy status to analgesic agent; Z91.013 Allergy to seafood; Z88.8 Allergy status to other drugs, medicaments and biological substances
CPT/HCPCS: 99283; 96372; S0183; J1170

== ENCOUNTER 2023-11-13 21:37 | Emergency (ER) | payer MEDICARE, OTHER ==
[2023-11-14] MEDS ORDERED: HYDROmorphone 1 MG/ML 1 ML SYRINGE ONE (00:06)
[2023-11-14] MEDS ORDERED: diphenhydrAMINE 50 MG CAP ONE (00:06)
[2023-11-14] MEDS ORDERED: diazePAM 5 MG TAB ONE (00:07)
[2023-11-14] MEDS ORDERED: droPERidol 5 MG/2 ML VIAL ONE (00:26)
== END 2023-11-14 02:00 | disposition home or self-care (01) ==
LOC: EC 21:37
CPT/HCPCS: 96372; 99283

== ENCOUNTER 2023-11-23 04:04 | Emergency (ER) | payer MEDICARE, OTHER ==
[2023-11-23] MEDS ORDERED: LORazepam 1 MG TAB ONE (04:30)
[2023-11-23] MEDS ORDERED: diphenhydrAMINE 50 MG/ML 1 ML VIAL ONE (04:30)
[2023-11-23] MEDS ORDERED: HYDROmorphone 1 MG/ML 1 ML SYRINGE ONE ×2 (04:31→06:04)
[2023-11-23] MEDS ORDERED: diphenhydrAMINE 50 MG CAP ONE (04:34)
[2023-11-23] MEDS ORDERED: HYDROmorphone 2 MG/ML 1 ML SYRINGE ONE (04:36)
== END 2023-11-23 06:12 | disposition home or self-care (01) ==
LOC: EC 04:04
CPT/HCPCS: 96372; 99283

== ENCOUNTER 2023-12-07 23:21 | Emergency (ER) | payer MEDICARE, OTHER ==
--- NOTE | 2023-12-08 00:13 | ED ---
Abdominal Pain HPI - General Source: patient Mode of arrival: ambulatory Limitations: no limitations <Kieran George - Last Filed: 12/08/23 00:13> - General Source: patient, RN notes reviewed, old records reviewed Mode of arrival: ambulatory Limitations: no limitations - History of Present Illness MD Complaint: abdominal pain -: days(s) Location: diffuse, periumbilical Radiation: none Severity: severe Severity scale (1-10): 10 Quality: stabbing Consistency: constant <Curt Stubbs - Last Filed: 12/26/23 16:58> - General Chief Complaint: Abdominal Pain Stated Complaint: Post op check up Time Seen by Provider: 12/07/23 23:51 - History of Present Illness Initial Comments: 38-year-old female presenting with chief complaint postop pain. Patient had her pain pump replaced 3 days ago. Increased pain at incision site. Also complains of nausea and vomiting (Kieran George) This is a 38-year-old female well-known to the emergency department today for evaluation of abdominal pain postoperative pain (Curt Stubbs) - Related Data Home Medications Medication Instructions Recorded Confirmed Medroxyprogesterone Acetate 150 mg IM Q84D 11/22/13 10/07/20 [Depo-Provera] rOPINIRole HCL [Requip] 1 mg PO BID@0900,1200 11/22/13 10/07/20 Pentosan Polysulfate Sodium 100 mg PO DAILY 02/10/15 10/07/20 [Elmiron] HYDROcodone/APAP 7.5-325MG [[place] 1 tab PO BID 07/20/16 10/07/20 7.5-325] Paliperidone IM Pt Own [Invega 117 mg IM Q28D 07/20/16 10/07/20 Sustenna] amantadine HCL [Symmetrel] 100 mg PO BID 11/21/16 10/07/20 Albuterol Sulfate [Proair Hfa] 2 puff INHALATION RT-QID PRN 01/13/18 10/07/20 Butalb/Acetaminophen/Caffeine 1 tab PO Q8H PRN 01/13/18 10/07/20 [Fioricet 50-325-40] Fluticasone Propionate [Flovent 1 puff INHALATION RT-BID 01/13/18 10/07/20 Hfa 110 mcg] gemfibroziL [Lopid] 600 mg PO BID 01/13/18 10/07/20 Gabapentin [Neurontin] 300 mg PO TID 03/11/18 10/07/20 Gabapentin [Neurontin] 600 mg PO TID 09/16/19 10/07/20 Omeprazole [PriLOSEC] 40 mg PO DAILY 09/16/19 10/07/20 rOPINIRole HCL [Requip] 2 mg PO HS 09/16/19 10/07/20 traZODone HCL 300 mg PO HS 09/16/19 10/07/20 hydrOXYzine pamoate 25 mg PO BID 04/13/20 10/07/20 Cyclobenzaprine [Flexeril] 10 mg PO TID PRN 08/16/20 10/07/20 Fentanyl/Bupivcaine Pain Pump 1 dose INTRATHECA CONTINUOUS 08/16/20 10/07/20 Ibuprofen [Motrin] 600 mg PO TID PRN 10/07/20 10/07/20 diphenhydrAMINE [Benadryl] 50 mg PO DAILY PRN 10/07/20 10/07/20 Previous Rx's Medication Instructions Recorded Erythromycin Ophth Oint [Romycin 1 applic RIGHT EYE QID #1 bottle 10/03/20 Ophth Oint] Ondansetron Odt [Zofran Odt] 4 mg PO Q8HR PRN #14 tab 10/16/20 Ondansetron Odt [Zofran Odt] 4 mg PO Q8HR PRN #10 tab 06/21/21 predniSONE [Deltasone] 20 mg PO BID #10 tab 09/08/21 Cephalexin [Keflex] 500 mg PO Q8HR 7 Days #21 cap 11/25/21 Fluconazole [Diflucan] 150 mg PO ONCE #1 tab 11/25/21 Amoxic-Pot Clav 875-125Mg 1 tab PO Q12HR 7 Days #14 tab 05/02/23 [Augmentin 875-125] Ondansetron Odt [Zofran Odt] 8 mg PO Q8HR #9 tab 10/14/23 Ketorolac [Toradol] 10 mg PO Q8HR #15 tab 12/20/23 diphenhydrAMINE [Benadryl] 50 mg PO QID PRN #20 capsule 12/20/23 Allergies Allergy/AdvReac Type Severity Reaction Status Date / Time azithromycin Allergy Rash/Hives Verified 12/20/23 01:45 [From Zithromax Z-Mehrdad] cimetidine [From Tagamet] Allergy Rash/Hives Verified 12/20/23 01:45 codeine Allergy Nausea & Verified 12/20/23 01:45 Vomiting ether [Ether] Allergy Anaphylaxis Verified 12/20/23 01:45 Fish Containing Products Allergy Anaphylaxis Verified 12/20/23 01:45 [Fish] ibuprofen [From Motrin] Allergy Rash/Hives Verified 12/20/23 01:45 morphine Allergy Unknown Verified 12/20/23 01:45 ziprasidone HCl [From Geodon] Allergy Extrapyramidal Verified 12/20/23 01:45 Symptoms ciprofloxacin [From Cipro] AdvReac Rash/Hives Verified 12/20/23 01:45 fluphenazine HCl AdvReac Extrapyramidal Verified 12/20/23 01:45 [From Prolixin] Symptoms haloperidol [From Haldol] AdvReac Extrapyramidal Verified 12/20/23 01:45 Symptoms Sulfa (Sulfonamide AdvReac Nausea & Verified 12/20/23 01:45 Antibiotics) Vomiting Review of Systems ROS Other: All systems not noted in ROS Statement are negative. <Kieran George - Last Filed: 12/08/23 00:13> ROS Other: All systems not noted in ROS Statement are negative. <Curt Stubbs - Last Filed: 12/26/23 16:58> ROS Statement: Those systems with pertinent positive or pertinent negative responses have been documented in the HPI. Past Medical History Past Medical History: Asthma, GERD/Reflux, Hyperlipidemia, Musculoskeletal Disorder, Neurologic Disorder, Osteoarthritis (OA), Seizure Disorder Additional Past Medical History / Comment(s): RSD-DERIC FEET, INTERSTITIAL CYSTITIS, BRONCHITIS, HEMORRHOIDS,MIGRAINES, INSOMNIA. VERTIGO, last seizure 4 years ago, complex regional pain syndrome, RLS. History of Any Multi-Drug Resistant Organisms: MRSA Date of last positivie culture/infection: 04/20/15 MDRO Source:: Left Axilla Past Surgical History: Adenoidectomy, Back Surgery, Cholecystectomy, Orthopedic Surgery, Tonsillectomy Additional Past Surgical History / Comment(s): bilateral foot surgery d/t rsd, numerous pain clinic procedures, nerve stimulator in back to tx RSD placed in Nov 11 2015, pain pump placement, replacement of stimulator 06/2021, replacement of pain pump. Past Anesthesia/Blood Transfusion Reactions: Previous Problems w/ Anesthesia Additional Past Anesthesia/Blood Transfusion Reaction / Comment(s): Pt recieved blood when she was 2 yrs old after tonsillectomy. WHEN BABY HEART STOPPED TWICE- PT STATED SHE WAS ALLERGIC TO ETHER. Past Psychological History: Anxiety, Bipolar, Depression, PTSD Smoking Status: Never smoker Past Alcohol Use History: None Reported Past Drug Use History: Marijuana - Past Family History Father History Unknown: Yes Family Medical History: Diabetes Mellitus Mother Family Medical History: Cancer, CVA/TIA, Diabetes Mellitus, Myocardial Infarction ([place]) Additional Family Medical History / Comment(s): Mother has had 5 CVAs, 3 MIs and UTERINE CANCER <Kieran George - Last Filed: 12/08/23 00:13> General Exam Limitations: no limitations <Kieran George - Last Filed: 12/08/23 00:13> General appearance: alert, in no apparent distress Head exam: Present: atraumatic, normocephalic, normal inspection Eye exam: Present: normal appearance, PERRL, EOMI. Absent: scleral icterus, conjunctival injection, periorbital swelling ENT exam: Present: normal exam, mucous membranes moist Neck exam: Present: normal inspection. Absent: tenderness, meningismus, lymphadenopathy Respiratory exam: Present: normal lung sounds bilaterally. Absent: respiratory distress, wheezes, rales, rhonchi, stridor Cardiovascular Exam: Present: regular rate, normal rhythm, normal heart sounds. Absent: systolic murmur, diastolic murmur, rubs, gallop, clicks GI/Abdominal exam: Present: soft, normal bowel sounds. Absent: distended, tenderness, guarding, rebound, rigid Extremities exam: Present: normal inspection, full ROM, normal capillary refill. Absent: tenderness, pedal edema, joint swelling, calf tenderness Back exam: Present: normal inspection Neurological exam: Present: alert, oriented X3, CN II-XII intact Psychiatric exam: Present: normal affect, normal mood Skin exam: Present: warm, dry, intact, normal color. Absent: rash <Curt Stubbs - Last Filed: 12/26/23 16:58> - General Exam Comments Initial Comments: Visual Physical Exam Vital signs reviewed General: Well-appearing, nontoxic, no acute distress. Head: Normocephalic, atraumatic Eyes: PERRLA, EOMI ENT: Airway patent Chest: Nonlabored breathing Skin: No visual rash, normal skin tone Neuro: Alert and oriented 3 Musculoskeletal: No gross abnormalities (Kieran George) Course <Curt Stubbs - Last Filed: 12/26/23 16:58> Vital Signs 12/08/23 12/08/23 12/08/23 00:07 01:28 02:09 Temperature 97.8 F 96.8 F L 97.0 F L Pulse Rate 104 H 90 87 Respiratory 20 16 16 Rate Blood Pressure 119/77 129/93 118/73 O2 Sat by Pulse 99 100 96 Oximetry - Reevaluation(s) Reevaluation #1: 12/08/23 00:21 Medical records reviewed (Curt Stubbs) Reevaluation #2: 12/08/23 00:21 Symptoms improved (Curt Stubbs) Reevaluation #3: 12/08/23 00:21 Patient informed of results and questions answered (Curt Stubbs) Reevaluation #4: Was pt. sent in by a medical professional or institution (, PA, VELV[employer] STEAMER, urgent care, hospital, or longterm...) When possible be specific @ -no Did you speak to anyone other than the patient for history (EMS, parent, family, police, friend...)? What history was obtained from this source @ -no Did you review nursing and triage notes (agree or disagree)? Why? @ -agree Are old charts reviewed (outside hosp., previous admission, EMS record, old EKG, old radiological studies, urgent care reports/EKG's, longterm records)? Report findings @ -yes Differential Diagnosis (chest pain, altered mental status, abdominal pain women, abdominal pain men, vaginal bleeding, weakness, fever, dyspnea, syncope, headache, dizziness, GI bleed, back pain, seizure, CVA, palpatations, mental health, musculoskeletal)? @ -prior EKG interpreted by me (3pts min.). @ -no X-rays interpreted by me (1pt min.). @ -no CT interpreted by me (1pt min.). @ -no U/S interpreted by me (1pt. min.). @ -no What testing was considered but not performed or refused? (CT, X-rays, U/S, labs)? Why? @ -none What meds were considered but not given or refused? Why? @ -none Did you discuss the management of the patient with other professionals (professionals i.e. DrBen, PA, V[employer]ER, lab, RT, psych nurse, social work supervisor, link trainer maintenance man, teacher, evp chief exploration officer, field nurse case manager)? Give summary @ -no Was smoking cessation discussed for >3mins.? @ -no Was critical care preformed (if so, how long)? @ -no Were there social determinants of health that impacted care today? How? (Homelessness, low income, unemployed, alcoholism, drug addiction, transportation, low edu. Level, literacy, decrease access to med. care, [place] [facility], rehab)? @ -none Was there de-escalation of care discussed even if they declined (Discuss DNR or withdrawal of care, Hospice)? DNR status @ -no What co-morbidities impacted this encounter? (DM, HTN, Smoking, COPD, CAD, Cancer, CVA, ARF, Chemo, Hep., AIDS, mental health diagnosis, sleep apnea, morbid obesity)? @ -none Was patient admitted / discharged? Hospital course, mention meds given and route, prescriptions, significant lab abnormalities, going to OR and other pertinent info. @ - 38 female with abdominal pain chronic abdominal pain chronic pain. Patient symptoms are improved and can be discharged home Discharge Undiagnosed new problem with uncertain prognosis? @ -no Drug Therapy requiring intensive monitoring for toxicity (Heparin, Nitro, Insulin, Cardizem)? @ -no Were any procedures done? @ -no Diagnosis/symptom? @ -Chronic pain Acute, or Chronic, or Acute on Chronic? @ -Acute Uncomplicated (without systemic symptoms) or Complicated (systemic symptoms)? @ -Complicated Side effects of treatment? @ -no Exacerbation, Progression, or Severe Exacerbation? @ -exacerbation Poses a threat to life or bodily function? How? (Chest pain, [place], [place], pneumonia, PE, COPD, DKA, ARF, appy, cholecystitis, CVA, Diverticulitis, Homicidal, Suicidal, threat to staff... and all critical care pts) @ -yes with chronic medical history (Curt Stubbs) Medical Decision Making <Kieran George - Last Filed: 12/08/23 00:13> <Curt Stubbs - Last Filed: 12/26/23 16:58> - Medical Decision Making I performed the quick note portion of this visit, electronically signed Kieran George PA-C (Kieran George) 38 female with abdominal pain chronic abdominal pain chronic pain. Patient symptoms are improved and can be discharged home (Curt Stubbs) Disposition <Kieran George - Last Filed: 12/08/23 00:13> Is patient prescribed a controlled substance at d/c from ED?: No Time of Disposition: 00:30 <Curt Stubbs - Last Filed: 12/26/23 16:58> Clinical Impression: Chronic pain, Chronic pain syndrome, Post-op pain, Acute anxiety, Anxiety Disposition: HOME SELF-CARE Condition: Fair Referrals: None,Stated [Primary Care Provider] - 1-2 days
[2023-12-08 01:33] VITALS: RESP 16
[2023-12-08] MEDS: HYDROmorphone 1 MG/ML 1 ML SYRINGE IM STA (01:34)
[2023-12-08] MEDS: ONDANSETRON ODT 4 MG TAB PO STA (01:42)
[2023-12-08] MEDS: PROCHLORPERAZINE 5 MG TAB PO STA (01:42)
[2023-12-08] MEDS: diphenhydrAMINE 50 MG CAP PO STA (01:42)
[2023-12-08 02:18] VITALS: BP 118/73; PULSE 87; TEMP 97
== END 2023-12-08 02:09 | disposition home or self-care (01) ==
LOC: EC 23:21
DX: T81.9XXA Unspecified complication of procedure, initial encounter
CPT/HCPCS: 96372; 99284

== ENCOUNTER 2023-12-15 17:36 | Emergency (ER) | payer MEDICARE, OTHER ==
[2023-12-15 17:47] VITALS: RESP 16; TEMP 98.8
--- NOTE | 2023-12-15 18:33 | ED ---
Recheck HPI - General Source: patient, RN notes reviewed Mode of arrival: wheelchair Limitations: no limitations <Nannette Jhaveri - Last Filed: 12/15/23 18:31> - History of Present Illness MD Complaint: other (Drainage from surgical site) -: hour(s) Returns Today for: wound recheck Symptoms Since Prior Visit: no new symptoms Associated Symptoms: none <Ramez Hernandez - Last Filed: 12/16/23 06:56> - General Chief Complaint: Recheck/Abnormal Lab/Rx Stated Complaint: Bleeding incision in abd, post op Time Seen by Provider: 12/15/23 18:32 - History of Present Illness Initial Comments: Quick note: 38-year-old female presented to ER with a chief complaint of surgical incision complication. Patient underwent pain pump surgery on 12-04-[address] Loya. Patient states today she started to notice drainage and increasing pain to incision site. [place] are still in place. Unknown fevers. Patient also reports she is on Depo-Provera and this morning woke up to a large amount of blood in her underwear. Last Depo shot in September. No blood thinner us e. (Nannette Jhaveri) Agree with above (Ramez Hernandez) - Related Data Home Medications Medication Instructions Recorded Confirmed Medroxyprogesterone Acetate 150 mg IM Q84D 11/22/13 10/07/20 [Depo-Provera] rOPINIRole HCL [Requip] 1 mg PO BID@0900,1200 11/22/13 10/07/20 Pentosan Polysulfate Sodium 100 mg PO DAILY 02/10/15 10/07/20 [Elmiron] HYDROcodone/APAP 7.5-325MG [[place] 1 tab PO BID 07/20/16 10/07/20 7.5-325] Paliperidone IM Pt Own [Invega 117 mg IM Q28D 07/20/16 10/07/20 Sustenna] amantadine HCL [Symmetrel] 100 mg PO BID 11/21/16 10/07/20 Albuterol Sulfate [Proair Hfa] 2 puff INHALATION RT-QID PRN 01/13/18 10/07/20 Butalb/Acetaminophen/Caffeine 1 tab PO Q8H PRN 01/13/18 10/07/20 [Fioricet 50-325-40] Fluticasone Propionate [Flovent 1 puff INHALATION RT-BID 01/13/18 10/07/20 Hfa 110 mcg] gemfibroziL [Lopid] 600 mg PO BID 01/13/18 10/07/20 Gabapentin [Neurontin] 300 mg PO TID 03/11/18 10/07/20 Gabapentin [Neurontin] 600 mg PO TID 09/16/19 10/07/20 Omeprazole [PriLOSEC] 40 mg PO DAILY 09/16/19 10/07/20 rOPINIRole HCL [Requip] 2 mg PO HS 09/16/19 10/07/20 traZODone HCL 300 mg PO HS 09/16/19 10/07/20 hydrOXYzine pamoate 25 mg PO BID 04/13/20 10/07/20 Cyclobenzaprine [Flexeril] 10 mg PO TID PRN 08/16/20 10/07/20 Fentanyl/Bupivcaine Pain Pump 1 dose INTRATHECA CONTINUOUS 08/16/20 10/07/20 Ibuprofen [Motrin] 600 mg PO TID PRN 10/07/20 10/07/20 diphenhydrAMINE [Benadryl] 50 mg PO DAILY PRN 10/07/20 10/07/20 Previous Rx's Medication Instructions Recorded Erythromycin Ophth Oint [Romycin 1 applic RIGHT EYE QID #1 bottle 10/03/20 Ophth Oint] Ondansetron Odt [Zofran Odt] 4 mg PO Q8HR PRN #14 tab 10/16/20 Ondansetron Odt [Zofran Odt] 4 mg PO Q8HR PRN #10 tab 06/21/21 predniSONE [Deltasone] 20 mg PO BID #10 tab 09/08/21 Cephalexin [Keflex] 500 mg PO Q8HR 7 Days #21 cap 11/25/21 Fluconazole [Diflucan] 150 mg PO ONCE #1 tab 11/25/21 Amoxic-Pot Clav 875-125Mg 1 tab PO Q12HR 7 Days #14 tab 05/02/23 [Augmentin 875-125] Ondansetron Odt [Zofran Odt] 8 mg PO Q8HR #9 tab 10/14/23 Allergies Allergy/AdvReac Type Severity Reaction Status Date / Time azithromycin Allergy Rash/Hives Verified 12/15/23 17:47 [From Zithromax Z-Mehrdad] cimetidine [From Tagamet] Allergy Rash/Hives Verified 12/15/23 17:47 codeine Allergy Nausea & Verified 12/15/23 17:47 Vomiting ether [Ether] Allergy Anaphylaxis Verified 12/15/23 17:47 Fish Containing Products Allergy Anaphylaxis Verified 12/15/23 17:47 [Fish] ibuprofen [From Motrin] Allergy Rash/Hives Verified 12/15/23 17:47 morphine Allergy Unknown Verified 12/15/23 17:47 ziprasidone HCl [From Geodon] Allergy Extrapyramidal Verified 12/15/23 17:47 Symptoms ciprofloxacin [From Cipro] AdvReac Rash/Hives Verified 12/15/23 17:47 fluphenazine HCl AdvReac Extrapyramidal Verified 12/15/23 17:47 [From Prolixin] Symptoms haloperidol [From Haldol] AdvReac Extrapyramidal Verified 12/15/23 17:47 Symptoms Sulfa (Sulfonamide AdvReac Nausea & Verified 12/15/23 17:47 Antibiotics) Vomiting Review of Systems ROS Other: All systems not noted in ROS Statement are negative. <Nannette Jhaveri - Last Filed: 12/15/23 18:31> ROS Other: All systems not noted in ROS Statement are negative. Constitutional: Denies: fever, chills Respiratory: Denies: cough, dyspnea Cardiovascular: Denies: chest pain, syncope Gastrointestinal: Denies: abdominal pain, vomiting, diarrhea Genitourinary: Denies: dysuria, hematuria Musculoskeletal: Denies: back pain Skin: Denies: rash Neurological: Denies: headache, weakness <Ramez Hernandez - Last Filed: 12/16/23 06:56> ROS Statement: Those systems with pertinent positive or pertinent negative responses have been documented in the HPI. Past Medical History Past Medical History: Asthma, GERD/Reflux, Hyperlipidemia, Musculoskeletal Disorder, Neurologic Disorder, Osteoarthritis (OA), Seizure Disorder Additional Past Medical History / Comment(s): RSD-DERIC FEET, INTERSTITIAL CYSTITIS, BRONCHITIS, HEMORRHOIDS,MIGRAINES, INSOMNIA. VERTIGO, last seizure 4 years ago, complex regional pain syndrome, RLS. History of Any Multi-Drug Resistant Organisms: MRSA Date of last positivie culture/infection: 04/20/15 MDRO Source:: Left Axilla Past Surgical History: Adenoidectomy, Back Surgery, Cholecystectomy, Orthopedic Surgery, Tonsillectomy Additional Past Surgical History / Comment(s): bilateral foot surgery d/t rsd, numerous pain clinic procedures, nerve stimulator in back to tx RSD placed in Nov 11 2015, pain pump placement, replacement of stimulator 06/2021, replacement of pain pump. Past Anesthesia/Blood Transfusion Reactions: Previous Problems w/ Anesthesia Additional Past Anesthesia/Blood Transfusion Reaction / Comment(s): Pt recieved blood when she was 2 yrs old after tonsillectomy. WHEN BABY HEART STOPPED TWICE- PT STATED SHE WAS ALLERGIC TO ETHER. Past Psychological History: Anxiety, Bipolar, Depression, PTSD Smoking Status: Never smoker Past Alcohol Use History: None Reported Past Drug Use History: Marijuana - Past Family History Father History Unknown: Yes Family Medical History: Diabetes Mellitus Mother Family Medical History: Cancer, CVA/TIA, Diabetes Mellitus, Myocardial Infarction (CO) Additional Family Medical History / Comment(s): Mother has had 5 CVAs, 3 MIs and UTERINE CANCER <Nannette Jhaveri - Last Filed: 12/15/23 18:31> General Exam Limitations: no limitations <Nannette Jhaveri - Last Filed: 12/15/23 18:31> General appearance: alert, in no apparent distress Head exam: Present: atraumatic, normocephalic Eye exam: Present: normal appearance. Absent: scleral icterus, conjunctival injection Neck exam: Present: normal inspection Respiratory exam: Present: normal lung sounds bilaterally. Absent: respiratory distress, wheezes, rales, rhonchi, stridor, accessory muscle use Cardiovascular Exam: Present: regular rate, normal rhythm, normal heart sounds. Absent: systolic murmur, diastolic murmur, rubs, gallop GI/Abdominal exam: Present: soft, other (The patient has healing surgical incision left lower quadrant. The gloria are intact. There is no abnormal erythema or warmth. No purulent drainage. There is a small amount of serous drainage.). Absent: distended, tenderness, guarding, rebound, rigid, mass Extremities exam: Present: normal inspection, normal capillary refill. Absent: pedal edema, calf tenderness Back exam: Present: normal inspection Neurological exam: Present: alert Skin exam: Present: warm, dry, normal color <Ramez Hernandez - Last Filed: 12/16/23 06:56> - General Exam Comments Initial Comments: Visual Physical Exam Vital signs reviewed General: Diaphoretic, nontoxic no acute distress Head: Normocephalic, atraumatic Eyes: PERRLA, EOMI ENT: Airway patent Chest: Nonlabored breathing Skin: No visual rash, normal skin tone, surgical incision to left lower quadrant. Erythema to staple insertion sites. Neuro: Alert and oriented 3 Musculoskeletal: No gross abnormalities (Nannette Jhaveri) Course Vital Signs 12/15/23 12/15/23 17:45 20:23 Temperature 98.8 F Pulse Rate 108 H 88 Respiratory 16 16 Rate Blood Pressure 119/68 110/72 O2 Sat by Pulse 99 99 Oximetry Medical Decision Making <Nannette Jhaveri - Last Filed: 12/15/23 18:31> - Lab Data Result diagrams: 12/15/23 19:06 12/15/23 19:06 <Ramez Hernandez - Last Filed: 12/16/23 06:56> - Medical Decision Making I performed the quick note portion of this chart. Electronically signed by Nannette Jhaveri PA-C (Nannette Jhaveri) Was pt. sent in by a medical professional or institution ([facility], [employer], urgent care, hospital, or care home...) When possible be specific @ -[No] Did you speak to anyone other than the patient for history (EMS, parent, family, police, friend...)? What history was obtained from this source @ -[No] Did you review nursing and triage notes (agree or disagree)? Why? @ -[I reviewed and agree with nursing and triage notes] Were old charts reviewed (outside hosp., previous admission, EMS record, old EKG, old radiological studies, urgent care reports/EKG's, care home records)? Report findings @ -[No old charts were reviewed] Differential Diagnosis (chest pain, altered mental status, abdominal pain women, abdominal pain men, vaginal bleeding, weakness, fever, dyspnea, syncope, headache, dizziness, GI bleed, back pain, seizure, CVA, palpatations, mental health, musculoskeletal)? @ -[Differential Abdominal Pain Women: Appendicitis, Cholecystitis, diverticulosis, ischemic bowel, pancreatitis, hepatitis, UTI, gastroenteritis, AAA, incarcerated hernia, bowel obstruction, constipation, inflammatory bowel, hepatitis, peptic ulcer disease, splenic infarction, perforated viscus, vulvitis, ovarian torsion, PID, kidney stone, placenta abruption, this is not meant to be an all-inclusive list EKG interpreted by me (3pts min.). @ -[As above] X-rays interpreted by me (1pt min.). @ -[None done] CT interpreted by me (1pt min.). @ -[None done] U/S interpreted by me (1pt. min.). @ -[None done] What testing was considered but not performed or refused? (CT, X-rays, U/S, labs)? Why? @ -[None] What meds were considered but not given or refused? Why? @ -[None] Did you discuss the management of the patient with other professionals (professionals i.e. , PA, [employer]ER [employer]SEMBLER, lab, RT, psych nurse, social media analyst, entertainment lawyer, teacher, veterans service officer, embedded case manager)? Give summary @ -[No] Was smoking cessation discussed for >3mins.? @ -[No] Was critical care preformed (if so, how long)? @ -[No] Were there social determinants of health that impacted care today? How? (Homelessness, low income, unemployed, alcoholism, drug addiction, transportation, low edu. Level, literacy, decrease access to med. care, correction, rehab)? @ -[No] Was there de-escalation of care discussed even if they declined (Discuss DNR or withdrawal of care, Hospice)? DNR status @ -[No] What co-morbidities impacted this encounter? (DM, HTN, Smoking, COPD, CAD, Cancer, CVA, ARF, Chemo, Hep., AIDS, mental health diagnosis, sleep apnea, morbid obesity)? @ -[None] Was patient admitted / discharged? Hospital course, mention meds given and route , prescriptions, significant lab abnormalities, going to OR and other pertinent info. @ -[Patient is a 38-year-old woman having some drainage that does appear to be serous. Will culture is sent and the patient is directed to follow-up with Dr. Shannon for results and for him to reevaluate the site in 1 day Undiagnosed new problem with uncertain prognosis? @ -[No] Drug Therapy requiring intensive monitoring for toxicity (Heparin, Nitro, Insulin, Cardizem)? @ -[No] Were any procedures done? @ -[No] Diagnosis/symptom? @ -[Surgical wound check Acute, or Chronic, or Acute on Chronic? @ -[Acute Uncomplicated (without systemic symptoms) or Complicated (systemic symptoms)? @ -[Uncomplicated Side effects of treatment? @ -[No] Exacerbation, Progression, or Severe Exacerbation? @ -[No] Poses a threat to life or bodily function? How? (Chest pain, [place], CO, pneumonia, PE, COPD, DKA, ARF, appy, cholecystitis, CVA, Diverticulitis, Homicidal, Suicidal, threat to staff... and all critical care pts) @ -[No] (Ramez Hernandez) - Lab Data Lab Results 12/15/23 12/15/23 12/15/23 Range/Units 19:06 19:06 19:06 WBC 7.0 (3.8-10.6) k/uL RBC 4.39 (3.80-5.40) m/uL Hgb 13.8 (11.4-16.0) gm/dL Hct 40.5 (34.0-46.0) % MCV 92.4 (80.0-100.0) fL MCH 31.4 (25.0-35.0) pg MCHC 34.0 (31.0-37.0) g/dL RDW 12.5 (11.5-15.5) % Plt Count 325 (150-450) k/uL MPV 6.7 Neutrophils % 75 % Lymphocytes % 17 % Monocytes % 4 % Eosinophils % 2 % Basophils % 1 % Neutrophils # 5.2 (1.3-7.7) k/uL Lymphocytes # 1.2 (1.0-4.8) k/uL Monocytes # 0.3 (0-1.0) k/uL Eosinophils # 0.1 (0-0.7) k/uL Basophils # 0.1 (0-0.2) k/uL Sodium 136 L (137-145) mmol/L Potassium 3.9 (3.5-5.1) mmol/L Chloride 102 (98-107) mmol/L Carbon Dioxide 25 (22-30) mmol/L Anion Gap 9 mmol/L BUN 13 (7-17) mg/dL Creatinine 0.62 (0.52-1.04) mg/dL Est GFR (CKD-EPI)AfAm >90 (>60 ml/min/1.73 sqM) Est GFR (CKD-EPI)NonAf >90 (>60 ml/min/1.73 sqM) Glucose 108 H (74-99) mg/dL Plasma Lactic Acid Mao 1.1 (0.7-2.0) mmol/L Calcium 9.4 (8.4-10.2) mg/dL Total Bilirubin 0.5 (0.2-1.3) mg/dL AST 25 (14-36) U/L ALT 22 (4-34) U/L Alkaline Phosphatase 94 (38-126) U/L C-Reactive Protein 3.2 H (<1.0) mg/dL Total Protein 5.9 L (6.3-8.2) g/dL Albumin 4.1 (3.5-5.0) g/dL Disposition <Nannette Jhaveri - Last Filed: 12/15/23 18:31> Is patient prescribed a controlled substance at d/c from ED?: No <Ramez Hernandez - Last Filed: 12/16/23 06:56> Clinical Impression: Chronic pain syndrome, Encounter for post surgical wound check Disposition: HOME SELF-CARE Condition: Good Instructions (If sedation given, give patient instructions): Seroma (DC) Referrals: Casper Shannon MD [Medical Doctor] - 1-2 days
[2023-12-15 19:20] LABS: Basophils # (A) 0.1 k/uL (0-0.2); Basophils % (A) 1 %; Eosinophils # (A) 0.1 k/uL (0-0.7); Eosinophils % (A) 2 %; HCT 40.5 % (34.0-46.0); HGB 13.8 gm/dL (11.4-16.0); Lymphocytes # (A) 1.2 k/uL (1.0-4.8); Lymphocytes % (A) 17 %; MCH 31.4 pg (25.0-35.0); MCV 92.4 fL (80.0-100.0); Mean Platelet Volume 6.7; Monocytes # (A) 0.3 k/uL (0-1.0); Monocytes % (A) 4 %; Neutrophils # (A) 5.2 k/uL (1.3-7.7); Neutrophils % (A) 75 %; Platelet Count 325 k/uL (150-450); RBC 4.39 m/uL (3.80-5.40); RDW 12.5 % (11.5-15.5)
[2023-12-15 19:36] LABS: ALT 22 U/L (4-34); AST 25 U/L (14-36); African American GFR (CKD) >90 (>60 ml/min/1.73 sqM); Albumin 4.1 g/dL (3.5-5.0); Alkaline Phosphatase 94 U/L (38-126); Anion Gap 9 mmol/L; Blood Urea Nitrogen 13 mg/dL (7-17); C Reactive Protein 3.2 mg/dL (<1.0); Calcium 9.4 mg/dL (8.4-10.2); Carbon Dioxide 25 mmol/L (22-30); Chloride 102 mmol/L (98-107); Glucose 108 mg/dL (74-99); Non-African American GFR(CKD) >90 (>60 ml/min/1.73 sqM); Potassium 3.9 mmol/L (3.5-5.1); Sodium 136 mmol/L (137-145); Total Bilirubin 0.5 mg/dL (0.2-1.3); Total Protein 5.9 g/dL (6.3-8.2)
[2023-12-15] MEDS: HYDROmorphone 0.5 MG/0.5 ML SYRINGE IM STA (20:15)
[2023-12-15 20:29] VITALS: BP 110/72; PULSE 88
== END 2023-12-15 20:23 | disposition home or self-care (01) ==
LOC: EC 17:36
CPT/HCPCS: 36415; 80053; 83605; 85025; 86140; 87070; 87205; 99284

== ENCOUNTER 2023-12-20 01:44 | Emergency (ER) | payer MEDICARE, OTHER ==
[2023-12-20 01:50] VITALS: PULSE 93; TEMP 98.2
--- NOTE | 2023-12-20 02:16 | ED ---
Skin/Abscess/FB HPI - General Chief complaint: Skin/Abscess/Foreign Body Stated complaint: Post-Op Complications Time Seen by Provider: 12/20/23 02:12 Source: patient, RN notes reviewed Mode of arrival: ambulatory Limitations: no limitations - History of Present Illness Initial comments: 38-year-old female presenting with abdominal pain. Patient states she had the pain pump surgery on December [address] Loya and has had persistent nausea, vomiting, and left-sided abdominal pain since. She has been seen multiple times in the ER for this complaint, last was 4 days ago where culture was taken of incision which returned negative. Patient had follow-up appointment with Dr. Loya 2 days ago where he removed gloria and Steri-Stripped lateral aspect of incision. He also placed her on antibiotics. Patient states she was sleeping tonight when she awoke to a sharp pain underneath the incision. Patient states that she has had this pain intermittently since the surgery. Denies fevers, chills. - Related Data Home Medications Medication Instructions Recorded Confirmed Medroxyprogesterone Acetate 150 mg IM Q84D 11/22/13 10/07/20 [Depo-Provera] rOPINIRole HCL [Requip] 1 mg PO BID@0900,1200 11/22/13 10/07/20 Pentosan Polysulfate Sodium 100 mg PO DAILY 02/10/15 10/07/20 [Elmiron] HYDROcodone/APAP 7.5-325MG [[place] 1 tab PO BID 07/20/16 10/07/20 7.5-325] Paliperidone IM Pt Own [Invega 117 mg IM Q28D 07/20/16 10/07/20 Sustenna] amantadine HCL [Symmetrel] 100 mg PO BID 11/21/16 10/07/20 Albuterol Sulfate [Proair Hfa] 2 puff INHALATION RT-QID PRN 01/13/18 10/07/20 Butalb/Acetaminophen/Caffeine 1 tab PO Q8H PRN 01/13/18 10/07/20 [Fioricet 50-325-40] Fluticasone Propionate [Flovent 1 puff INHALATION RT-BID 01/13/18 10/07/20 Hfa 110 mcg] gemfibroziL [Lopid] 600 mg PO BID 01/13/18 10/07/20 Gabapentin [Neurontin] 300 mg PO TID 03/11/18 10/07/20 Gabapentin [Neurontin] 600 mg PO TID 09/16/19 10/07/20 Omeprazole [PriLOSEC] 40 mg PO DAILY 09/16/19 10/07/20 rOPINIRole HCL [Requip] 2 mg PO HS 09/16/19 10/07/20 traZODone HCL 300 mg PO HS 09/16/19 10/07/20 hydrOXYzine pamoate 25 mg PO BID 04/13/20 10/07/20 Cyclobenzaprine [Flexeril] 10 mg PO TID PRN 08/16/20 10/07/20 Fentanyl/Bupivcaine Pain Pump 1 dose INTRATHECA CONTINUOUS 08/16/20 10/07/20 Ibuprofen [Motrin] 600 mg PO TID PRN 10/07/20 10/07/20 diphenhydrAMINE [Benadryl] 50 mg PO DAILY PRN 10/07/20 10/07/20 Previous Rx's Medication Instructions Recorded Erythromycin Ophth Oint [Romycin 1 applic RIGHT EYE QID #1 bottle 10/03/20 Ophth Oint] Ondansetron Odt [Zofran Odt] 4 mg PO Q8HR PRN #14 tab 10/16/20 Ondansetron Odt [Zofran Odt] 4 mg PO Q8HR PRN #10 tab 06/21/21 predniSONE [Deltasone] 20 mg PO BID #10 tab 09/08/21 Cephalexin [Keflex] 500 mg PO Q8HR 7 Days #21 cap 11/25/21 Fluconazole [Diflucan] 150 mg PO ONCE #1 tab 11/25/21 Amoxic-Pot Clav 875-125Mg 1 tab PO Q12HR 7 Days #14 tab 05/02/23 [Augmentin 875-125] Ondansetron Odt [Zofran Odt] 8 mg PO Q8HR #9 tab 10/14/23 Ketorolac [Toradol] 10 mg PO Q8HR #15 tab 12/20/23 diphenhydrAMINE [Benadryl] 50 mg PO QID PRN #20 capsule 12/20/23 Allergies Allergy/AdvReac Type Severity Reaction Status Date / Time azithromycin Allergy Rash/Hives Verified 09/20/24 01:45 [From Zithromax Z-Mehrdad] cimetidine [From Tagamet] Allergy Rash/Hives Verified 12/20/23 01:45 codeine Allergy Nausea & Verified 12/20/23 01:45 Vomiting ether [Ether] Allergy Anaphylaxis Verified 12/20/23 01:45 Fish Containing Products Allergy Anaphylaxis Verified 12/20/23 01:45 [Fish] ibuprofen [From Motrin] Allergy Rash/Hives Verified 12/20/23 01:45 morphine Allergy Unknown Verified 12/20/23 01:45 ziprasidone HCl [From Geodon] Allergy Extrapyramidal Verified 12/20/23 01:45 Symptoms ciprofloxacin [From Cipro] AdvReac Rash/Hives Verified 12/20/23 01:45 fluphenazine HCl AdvReac Extrapyramidal Verified 12/20/23 01:45 [From Prolixin] Symptoms haloperidol [From Haldol] AdvReac Extrapyramidal Verified 12/20/23 01:45 Symptoms Sulfa (Sulfonamide AdvReac Nausea & Verified 12/20/23 01:45 Antibiotics) Vomiting Review of Systems ROS Statement: Those systems with pertinent positive or pertinent negative responses have been documented in the HPI. ROS Other: All systems not noted in ROS Statement are negative. Past Medical History Past Medical History: Asthma, GERD/Reflux, Hyperlipidemia, Musculoskeletal Disorder, Neurologic Disorder, Osteoarthritis (OA), Seizure Disorder Additional Past Medical History / Comment(s): RSD-DERIC FEET, INTERSTITIAL CYSTITIS, BRONCHITIS, HEMORRHOIDS,MIGRAINES, INSOMNIA. VERTIGO, last seizure 4 years ago, complex regional pain syndrome, RLS. History of Any Multi-Drug Resistant Organisms: MRSA Date of last positivie culture/infection: 04/20/15 MDRO Source:: Left Axilla Past Surgical History: Adenoidectomy, Back Surgery, Cholecystectomy, Orthopedic Surgery, Tonsillectomy Additional Past Surgical History / Comment(s): bilateral foot surgery d/t rsd, numerous pain clinic procedures, nerve stimulator in back to tx RSD placed in Nov 11 2015, pain pump placement, replacement of stimulator 06/2021, replacement of pain pump. Past Anesthesia/Blood Transfusion Reactions: Previous Problems w/ Anesthesia Additional Past Anesthesia/Blood Transfusion Reaction / Comment(s): Pt recieved blood when she was 2 yrs old after tonsillectomy. WHEN BABY HEART STOPPED TWICE- PT STATED SHE WAS ALLERGIC TO ETHER. Past Psychological History: Anxiety, Bipolar, Depression, PTSD Smoking Status: Never smoker Past Alcohol Use History: None Reported Past Drug Use History: Marijuana - Past Family History Father History Unknown: Yes Family Medical History: Diabetes Mellitus Mother Family Medical History: Cancer, CVA/TIA, Diabetes Mellitus, Myocardial Infarction ([place]) Additional Family Medical History / Comment(s): Mother has had 5 CVAs, 3 MIs and UTERINE CANCER General Exam Limitations: no limitations General appearance: alert, in no apparent distress, anxious Head exam: Present: atraumatic, normocephalic, normal inspection Respiratory exam: Present: normal lung sounds bilaterally. Absent: respiratory distress, wheezes, rales, rhonchi, stridor Cardiovascular Exam: Present: regular rate, normal rhythm, normal heart sounds. Absent: systolic murmur, diastolic murmur, rubs, gallop, clicks GI/Abdominal exam: Present: soft, tenderness (Well-healing horizontal incision p resent on left upper quadrant with minimal serous fluid on the lateral aspect of wound. Diffuse tenderness to palpation over incision site), normal bowel sounds. Absent: distended, guarding, rebound, rigid Neurological exam: Present: alert, oriented X3 Psychiatric exam: Present: normal affect, normal mood Skin exam: Present: warm, dry, intact, normal color. Absent: rash Course Vital Signs 12/20/23 01:46 Temperature 98.2 F Pulse Rate 93 Respiratory 22 Rate Blood Pressure 123/83 O2 Sat by Pulse 99 Oximetry Medical Decision Making - Medical Decision Making Was pt. sent in by a medical professional or institution (, PA, ASSEMBLER DC FI[employer]KE, urgent care, hospital, or skilled nursing...) When possible be specific @ -No Did you speak to anyone other than the patient for history (EMS, parent, family, police, friend...)? What history was obtained from this source @ -No Did you review nursing and triage notes (agree or disagree)? Why? @ -I reviewed and agree with nursing and triage notes Were old charts reviewed (outside hosp., previous admission, EMS record, old EKG, old radiological studies, urgent care reports/EKG's, skilled nursing records)? Report findings @ -No old charts were reviewed Differential Diagnosis (chest pain, altered mental status, abdominal pain women, abdominal pain men, vaginal bleeding, weakness, fever, dyspnea, syncope, headache, dizziness, GI bleed, back pain, seizure, CVA, palpatations, mental health, musculoskeletal)? @ -Differential Abdominal Pain Women: Appendicitis, Cholecystitis, diverticulosis, ischemic bowel, pancreatitis, hepatitis, UTI, gastroenteritis, AAA, incarcerated hernia, bowel obstruction, constipation, inflammatory bowel, hepatitis, peptic ulcer disease, splenic infarction, perforated viscus, vulvitis, ovarian torsion, PID, kidney stone, placenta abruption, this is not meant to be an all-inclusive list EKG interpreted by me (3pts min.). @ -None X-rays interpreted by me (1pt min.). @ -None done CT interpreted by me (1pt min.). @ -None done U/S interpreted by me (1pt. min.). @ -None done What testing was considered but not performed or refused? (CT, X-rays, U/S, labs)? Why? @ -None What meds were considered but not given or refused? Why? @ -None Did you discuss the management of the patient with other professionals (professionals i.e. , PA, ASSEMBLER DC [employer], lab, RT, psych nurse, social psychologist, medical laboratory assistant, teacher, financial services officer, case management assistant)? Give summary @ -No Was smoking cessation discussed for >3mins.? @ -No Was critical care preformed (if so, how long)? @ -No Were there social determinants of health that impacted care today? How? (Homelessness, low income, unemployed, alcoholism, drug addiction, transportation, low edu. Level, literacy, decrease access to med. care, half-way, rehab)? @ -No Was there de-escalation of care discussed even if they declined (Discuss DNR or withdrawal of care, Hospice)? DNR status @ -No What co-morbidities impacted this encounter? (DM, HTN, Smoking, COPD, CAD, Cancer, CVA, ARF, Chemo, Hep., AIDS, mental health diagnosis, sleep apnea, morbid obesity)? @ -None Was patient admitted / discharged? Hospital course, mention meds given and route, prescriptions, significant lab abnormalities, going to OR and other pertinent info. @ -Patient was discharged. This is a 38-year-old female presenting with abdominal pain. Patient had pain pump surgery [address] Loya and has had intermittent left upper quadrant abdominal pain as well as nausea vomiting since the surgery. Patient has had recent multiple ER visits for this complaint. Vital signs within normal limits. There is no sign of bacterial infection upon incision site. IV fluids, Zofran, and Dilaudid given for pain and nausea. Lab work including CBC, CMP, lactic acid unremarkable. Upon reevaluation, patient states symptoms have improved. Discussed there are no signs of emergent etiology causing symptoms today. Advised to follow-up closely with Dr. Loya. Pt is agreeable to plan. Discharged with analgesics. Case was discussed with my ED attending Dr. Brown. Undiagnosed new problem with uncertain prognosis? @ -No Drug Therapy requiring intensive monitoring for toxicity (Heparin, Nitro, Insulin, Cardizem)? @ -No Were any procedures done? @ -No Diagnosis/symptom? @ -Postop abdominal pain Acute, or Chronic, or Acute on Chronic? @ -Acute Uncomplicated (without systemic symptoms) or Complicated (systemic symptoms)? @ -Uncomplicated Side effects of treatment? @ -No Exacerbation, Progression, or Severe Exacerbation? @ -No Poses a threat to life or bodily function? How? (Chest pain, [place], [place], pneumonia, PE, COPD, DKA, ARF, appy, cholecystitis, CVA, Diverticulitis, Homicidal, Suicidal, threat to staff... and all critical care pts) @ -No - Lab Data Result diagrams: 12/20/23 02:20 12/20/23 02:20 Lab Results 12/20/23 12/20/23 12/20/23 Range/Units 02:20 02:20 02:20 WBC 6.2 (3.8-10.6) k/uL RBC 4.27 (3.80-5.40) m/uL Hgb 13.4 (11.4-16.0) gm/dL Hct 39.2 (34.0-46.0) % MCV 91.8 (80.0-100.0) fL MCH 31.4 (25.0-35.0) pg MCHC 34.2 (31.0-37.0) g/dL RDW 13.1 (11.5-15.5) % Plt Count 255 (150-450) k/uL MPV 7.5 Neutrophils % 57 % Lymphocytes % 33 % Monocytes % 4 % Eosinophils % 4 % Basophils % 1 % Neutrophils # 3.5 (1.3-7.7) k/uL Lymphocytes # 2.0 (1.0-4.8) k/uL Monocytes # 0.3 (0-1.0) k/uL Eosinophils # 0.2 (0-0.7) k/uL Basophils # 0.0 (0-0.2) k/uL Sodium 136 L (137-145) mmol/L Potassium 4.2 (3.5-5.1) mmol/L Chloride 108 H (98-107) mmol/L Carbon Dioxide 19 L (22-30) mmol/L Anion Gap 9 mmol/L BUN 15 (7-17) mg/dL Creatinine 0.76 (0.52-1.04) mg/dL Est GFR (CKD-EPI)AfAm >90 (>60 ml/min/1.73 sqM) Est GFR (CKD-EPI)NonAf >90 (>60 ml/min/1.73 sqM) Glucose 104 H (74-99) mg/dL Plasma Lactic Acid Mao 1.0 (0.7-2.0) mmol/L Calcium 9.3 (8.4-10.2) mg/dL Total Bilirubin 0.3 (0.2-1.3) mg/dL AST 17 (14-36) U/L ALT 12 (4-34) U/L Alkaline Phosphatase 71 (38-126) U/L Total Protein 5.8 L (6.3-8.2) g/dL Albumin 3.9 (3.5-5.0) g/dL Disposition Clinical Impression: Postoperative abdominal pain Disposition: HOME SELF-CARE Condition: Stable Instructions (If sedation given, give patient instructions): Local Infusion Pain Management Pump (ED) Prescriptions: diphenhydrAMINE [Benadryl] 50 mg PO QID PRN #20 capsule PRN Reason: take with toradol Ketorolac [Toradol] 10 mg PO Q8HR #15 tab Is patient prescribed a controlled substance at d/c from ED?: No Referrals: None,Stated [Primary Care Provider] - 1-2 days Time of Disposition: 04:09
[2023-12-20] MEDS: ONDANSETRON 4 MG/2 ML VIAL IVP STA (02:27)
[2023-12-20] MEDS: HYDROmorphone 1 MG/ML 1 ML SYRINGE IVP STA (02:30)
[2023-12-20] MEDS: SODIUM CHLORIDE 0.9% 500 ML 500 ML IV STA (02:31)
[2023-12-20 02:49] LABS: Basophils % (A) 1 %; Eosinophils # (A) 0.2 k/uL (0-0.7); Eosinophils % (A) 4 %; HCT 39.2 % (34.0-46.0); HGB 13.4 gm/dL (11.4-16.0); Lymphocytes % (A) 33 %; MCH 31.4 pg (25.0-35.0); MCHC 34.2 g/dL (31.0-37.0); MCV 91.8 fL (80.0-100.0); Mean Platelet Volume 7.5; Monocytes # (A) 0.3 k/uL (0-1.0); Monocytes % (A) 4 %; Neutrophils # (A) 3.5 k/uL (1.3-7.7); Neutrophils % (A) 57 %; Platelet Count 255 k/uL (150-450); RBC 4.27 m/uL (3.80-5.40); RDW 13.1 % (11.5-15.5); WBC 6.2 k/uL (3.8-10.6)
[2023-12-20 03:21] LABS: ALT 12 U/L (4-34); AST 17 U/L (14-36); African American GFR (CKD) >90 (>60 ml/min/1.73 sqM); Albumin 3.9 g/dL (3.5-5.0); Alkaline Phosphatase 71 U/L (38-126); Anion Gap 9 mmol/L; Blood Urea Nitrogen 15 mg/dL (7-17); Calcium 9.3 mg/dL (8.4-10.2); Carbon Dioxide 19 mmol/L (22-30); Chloride 108 mmol/L (98-107); Glucose 104 mg/dL (74-99); Non-African American GFR(CKD) >90 (>60 ml/min/1.73 sqM); Potassium 4.2 mmol/L (3.5-5.1); Sodium 136 mmol/L (137-145); Total Bilirubin 0.3 mg/dL (0.2-1.3); Total Protein 5.8 g/dL (6.3-8.2)
[2023-12-20] MEDS: KETOROLAC 15 MG/ML 1 ML VIAL IVP STA (03:36)
[2023-12-20] MEDS: diphenhydrAMINE 50 MG/ML 1 ML VIAL IVP STA (03:36)
[2023-12-20 04:55] VITALS: BP 101/83; RESP 18
== END 2023-12-20 04:55 | disposition home or self-care (01) ==
LOC: EC 01:44
CPT/HCPCS: 36415; 80053; 83605; 85025; 96361; 96374; 96375; 99284

== ENCOUNTER 2023-12-26 19:29 | Emergency (ER) | payer MEDICARE, OTHER ==
[2023-12-26 19:36] VITALS: RESP 18
--- NOTE | 2023-12-26 19:57 | ED ---
Recheck HPI - General Chief Complaint: Recheck/Abnormal Lab/Rx Stated Complaint: post op comp Time Seen by Provider: 12/26/23 19:53 Source: patient, RN notes reviewed, old records reviewed Mode of arrival: ambulatory Limitations: no limitations - History of Present Illness Initial Comments: This is a 38-year-old female to the ER for evaluation wellness the emergency room for chronic pain MD Complaint: medication refill request -: days(s) Returns Today for: persistent/worsening pain related to initial visit Symptoms Since Prior Visit: worsening pain Context: planned re-check Associated Symptoms: none - Related Data Home Medications Medication Instructions Recorded Confirmed Medroxyprogesterone Acetate 150 mg IM Q84D 11/22/13 10/07/20 [Depo-Provera] rOPINIRole HCL [Requip] 1 mg PO BID@0900,1200 11/22/13 10/07/20 Pentosan Polysulfate Sodium 100 mg PO DAILY 02/10/15 10/07/20 [Elmiron] HYDROcodone/APAP 7.5-325MG [[place] 1 tab PO BID 07/20/16 10/07/20 7.5-325] Paliperidone IM Pt Own [Invega 117 mg IM Q28D 07/20/16 10/07/20 Sustenna] amantadine HCL [Symmetrel] 100 mg PO BID 11/21/16 10/07/20 Albuterol Sulfate [Proair Hfa] 2 puff INHALATION RT-QID PRN 01/13/18 10/07/20 Butalb/Acetaminophen/Caffeine 1 tab PO Q8H PRN 01/13/18 10/07/20 [Fioricet 50-325-40] Fluticasone Propionate [Flovent 1 puff INHALATION RT-BID 01/13/18 10/07/20 Hfa 110 mcg] gemfibroziL [Lopid] 600 mg PO BID 01/13/18 10/07/20 Gabapentin [Neurontin] 300 mg PO TID 03/11/18 10/07/20 Gabapentin [Neurontin] 600 mg PO TID 09/16/19 10/07/20 Omeprazole [PriLOSEC] 40 mg PO DAILY 09/16/19 10/07/20 rOPINIRole HCL [Requip] 2 mg PO HS 09/16/19 10/07/20 traZODone HCL 300 mg PO HS 09/16/19 10/07/20 hydrOXYzine pamoate 25 mg PO BID 04/13/20 10/07/20 Cyclobenzaprine [Flexeril] 10 mg PO TID PRN 08/16/20 10/07/20 Fentanyl/Bupivcaine Pain Pump 1 dose INTRATHECA CONTINUOUS 08/16/20 10/07/20 Ibuprofen [Motrin] 600 mg PO TID PRN 10/07/20 10/07/20 diphenhydrAMINE [Benadryl] 50 mg PO DAILY PRN 10/07/20 10/07/20 Previous Rx's Medication Instructions Recorded Erythromycin Ophth Oint [Romycin 1 applic RIGHT EYE QID #1 bottle 10/03/20 Ophth Oint] Ondansetron Odt [Zofran Odt] 4 mg PO Q8HR PRN #14 tab 10/16/20 Ondansetron Odt [Zofran Odt] 4 mg PO Q8HR PRN #10 tab 06/21/21 predniSONE [Deltasone] 20 mg PO BID #10 tab 09/08/21 Cephalexin [Keflex] 500 mg PO Q8HR 7 Days #21 cap 11/25/21 Fluconazole [Diflucan] 150 mg PO ONCE #1 tab 11/25/21 Amoxic-Pot Clav 875-125Mg 1 tab PO Q12HR 7 Days #14 tab 05/02/23 [Augmentin 875-125] Ondansetron Odt [Zofran Odt] 8 mg PO Q8HR #9 tab 10/14/23 Ketorolac [Toradol] 10 mg PO Q8HR #15 tab 12/20/23 diphenhydrAMINE [Benadryl] 50 mg PO QID PRN #20 capsule 12/20/23 clindamycin HCL 300 mg PO QID #40 cap 12/29/23 Allergies Allergy/AdvReac Type Severity Reaction Status Date / Time azithromycin Allergy Rash/Hives Verified 12/26/23 19:36 [From Zithromax Z-Mehrdad] cimetidine [From Tagamet] Allergy Rash/Hives Verified 12/26/23 19:36 codeine Allergy Nausea & Verified 12/26/23 19:36 Vomiting ether [Ether] Allergy Anaphylaxis Verified 12/26/23 19:36 Fish Containing Products Allergy Anaphylaxis Verified 12/26/23 19:36 [Fish] ibuprofen [From Motrin] Allergy Rash/Hives Verified 12/26/23 19:36 morphine Allergy Unknown Verified 12/26/23 19:36 ziprasidone HCl [From Geodon] Allergy Extrapyramidal Verified 12/26/23 19:36 Symptoms ciprofloxacin [From Cipro] AdvReac Rash/Hives Verified 12/26/23 19:36 fluphenazine HCl AdvReac Extrapyramidal Verified 12/26/23 19:36 [From Prolixin] Symptoms haloperidol [From Haldol] AdvReac Extrapyramidal Verified 12/26/23 19:36 Symptoms Sulfa (Sulfonamide AdvReac Nausea & Verified 12/26/23 19:36 Antibiotics) Vomiting Review of Systems ROS Statement: Those systems with pertinent positive or pertinent negative responses have been documented in the HPI. ROS Other: All systems not noted in ROS Statement are negative. Past Medical History Past Medical History: Asthma, GERD/Reflux, Hyperlipidemia, Musculoskeletal Disorder, Neurologic Disorder, Osteoarthritis (OA), Seizure Disorder Additional Past Medical History / Comment(s): RSD-DERIC FEET, INTERSTITIAL CYSTITIS, BRONCHITIS, HEMORRHOIDS,MIGRAINES, INSOMNIA. VERTIGO, last seizure 4 years ago, complex regional pain syndrome, RLS. History of Any Multi-Drug Resistant Organisms: MRSA Date of last positivie culture/infection: 04/20/15 MDRO Source:: Left Axilla Past Surgical History: Adenoidectomy, Back Surgery, Cholecystectomy, Orthopedic Surgery, Tonsillectomy Additional Past Surgical History / Comment(s): bilateral foot surgery d/t rsd, numerous pain clinic procedures, nerve stimulator in back to tx RSD placed in Nov 11 2015, pain pump placement, replacement of stimulator 06/2021, replacement of pain pump. Past Anesthesia/Blood Transfusion Reactions: Previous Problems w/ Anesthesia Additional Past Anesthesia/Blood Transfusion Reaction / Comment(s): Pt recieved blood when she was 2 yrs old after tonsillectomy. WHEN BABY HEART STOPPED TWICE- PT STATED SHE WAS ALLERGIC TO ETHER. Past Psychological History: Anxiety, Bipolar, Depression, PTSD Smoking Status: Never smoker Past Alcohol Use History: None Reported Past Drug Use History: Marijuana - Past Family History Father History Unknown: Yes Family Medical History: Diabetes Mellitus Mother Family Medical History: Cancer, CVA/TIA, Diabetes Mellitus, Myocardial Infarction ([place]) Additional Family Medical History / Comment(s): Mother has had 5 CVAs, 3 MIs and UTERINE CANCER General Exam Limitations: no limitations General appearance: alert, in no apparent distress Head exam: Present: atraumatic, normocephalic, normal inspection Eye exam: Present: normal appearance, PERRL, EOMI. Absent: scleral icterus, conjunctival injection, periorbital swelling ENT exam: Present: normal exam, mucous membranes moist Neck exam: Present: normal inspection. Absent: tenderness, meningismus, lymphad enopathy Respiratory exam: Present: normal lung sounds bilaterally. Absent: respiratory distress, wheezes, rales, rhonchi, stridor Cardiovascular Exam: Present: regular rate, normal rhythm, normal heart sounds. Absent: systolic murmur, diastolic murmur, rubs, gallop, clicks GI/Abdominal exam: Present: soft, normal bowel sounds. Absent: distended, tenderness, guarding, rebound, rigid Extremities exam: Present: normal inspection, full ROM, normal capillary refill. Absent: tenderness, pedal edema, joint swelling, calf tenderness Back exam: Present: normal inspection Neurological exam: Present: alert, oriented X3, CN II-XII intact Psychiatric exam: Present: normal affect, normal mood Skin exam: Present: warm, dry, intact, normal color. Absent: rash Course Vital Signs 12/26/23 12/26/23 19:35 21:32 Temperature 98 F 97.9 F Pulse Rate 97 92 Respiratory 18 18 Rate Blood Pressure 148/56 132/69 O2 Sat by Pulse 98 97 Oximetry - Reevaluation(s) Reevaluation #1: 12/26/23 20:47 Medical records reviewed Reevaluation #2: 12/26/23 20:47 Patient symptoms improved Reevaluation #3: 12/26/23 20:47 Patient informed of results and questions answered Reevaluation #4: Was pt. sent in by a medical professional or institution (, PA, AMUSEMENT MACHINE MECHANIC, urgent care, hospital, or [facility]...) When possible be specific @ -no Did you speak to anyone other than the patient for history (EMS, parent, family, police, friend...)? What history was obtained from this source @ -no Did you review nursing and triage notes (agree or disagree)? Why? @ -agree Are old charts reviewed (outside hosp., previous admission, EMS record, old EKG, old radiological studies, urgent care reports/EKG's, [facility] records)? Report findings @ -yes Differential Diagnosis (chest pain, altered mental status, abdominal pain women, abdominal pain men, vaginal bleeding, weakness, fever, dyspnea, syncope, headache, dizziness, GI bleed, back pain, seizure, CVA, palpatations, mental health, musculoskeletal)? @ -prior EKG interpreted by me (3pts min.). @ -no X-rays interpreted by me (1pt min.). @ -no CT interpreted by me (1pt min.). @ -no U/S interpreted by me (1pt. min.). @ -no What testing was considered but not performed or refused? (CT, X-rays, U/S, labs)? Why? @ -none What meds were considered but not given or refused? Why? @ -none Did you discuss the management of the patient with other professionals (professionals i.e. , PA, AMUSEMENT MACHINE MECHANIC, lab, RT, psych nurse, psychotherapist social worker, nib inspector, teacher, building drafting officer, test case developer)? Give summary @ -no Was smoking cessation discussed for >3mins.? @ -no Was critical care preformed (if so, how long)? @ -no Were there social determinants of health that impacted care today? How? (Homelessness, low income, unemployed, alcoholism, drug addiction, transportation, low edu. Level, literacy, decrease access to med. care, [facility], rehab)? @ -none Was there de-escalation of care discussed even if they declined (Discuss DNR or withdrawal of care, Hospice)? DNR status @ -no What co-morbidities impacted this encounter? (DM, HTN, Smoking, COPD, CAD, Cancer, CVA, ARF, Chemo, Hep., AIDS, mental health diagnosis, sleep apnea, morbid obesity)? @ -none Was patient admitted / discharged? Hospital course, mention meds given and route, prescriptions, significant lab abnormalities, going to OR and other pertinent info. @ - 38 female chronic pain patient has adequate pain control here in the ER can be discharged home Discharge Undiagnosed new problem with uncertain prognosis? @ -no Drug Therapy requiring intensive monitoring for toxicity (Heparin, Nitro, Insulin, Cardizem)? @ -no Were any procedures done? @ -no Diagnosis/symptom? @ -Chronic pain Acute, or Chronic, or Acute on Chronic? @ -Acute Uncomplicated (without systemic symptoms) or Complicated (systemic symptoms)? @ -Complicated Side effects of treatment? @ -no Exacerbation, Progression, or Severe Exacerbation? @ -exacerbation Poses a threat to life or bodily function? How? (Chest pain, [place], [place], pneumonia, PE, COPD, DKA, ARF, appy, cholecystitis, CVA, Diverticulitis, Homicidal, Suicidal, threat to staff... and all critical care pts) @ -no Medical Decision Making - Medical Decision Making 38 female chronic pain patient has adequate pain control here in the ER can be discharged home Disposition Clinical Impression: Chronic pain syndrome Disposition: HOME SELF-CARE Condition: Fair Instructions (If sedation given, give patient instructions): Chronic Pain (ED) Is patient prescribed a controlled substance at d/c from ED?: No Referrals: None,Stated [Primary Care Provider] - 1-2 days
[2023-12-26] MEDS: HYDROmorphone 1 MG/ML 1 ML SYRINGE IM STA (21:19)
[2023-12-26] MEDS: diphenhydrAMINE 50 MG CAP PO STA (21:19)
[2023-12-26] MEDS: PROCHLORPERAZINE 10 MG TAB PO STA (21:20)
[2023-12-26 21:34] VITALS: BP 132/69; PULSE 92; TEMP 97.9
== END 2023-12-26 21:34 | disposition home or self-care (01) ==
LOC: EC 19:29
CPT/HCPCS: 96372; 99283

== ENCOUNTER 2023-12-29 02:02 | Emergency (ER) | payer MEDICARE, OTHER ==
[2023-12-29 02:09] VITALS: RESP 20; TEMP 98
[2023-12-29 02:39] LABS: Basophils % (A) 0 %; Eosinophils # (A) 0.1 k/uL (0-0.7); Eosinophils % (A) 1 %; HCT 42.8 % (34.0-46.0); Lymphocytes # (A) 1.7 k/uL (1.0-4.8); Lymphocytes % (A) 21 %; MCH 30.4 pg (25.0-35.0); MCHC 32.7 g/dL (31.0-37.0); Monocytes # (A) 0.5 k/uL (0-1.0); Monocytes % (A) 6 %; Neutrophils # (A) 5.8 k/uL (1.3-7.7); Neutrophils % (A) 71 %; Platelet Count 360 k/uL (150-450); RDW 12.8 % (11.5-15.5); WBC 8.1 k/uL (3.8-10.6)
[2023-12-29 03:08] LABS: ALT 13 U/L (4-34); AST 17 U/L (14-36); African American GFR (CKD) >90 (>60 ml/min/1.73 sqM); Albumin 4.6 g/dL (3.5-5.0); Alkaline Phosphatase 100 U/L (38-126); Amylase 50 U/L (30-110); Anion Gap 12 mmol/L; Blood Urea Nitrogen 25 mg/dL (7-17); Calcium 9.9 mg/dL (8.4-10.2); Carbon Dioxide 17 mmol/L (22-30); Chloride 108 mmol/L (98-107); Glucose 130 mg/dL (74-99); Lipase 102 U/L (23-300); Non-African American GFR(CKD) >90 (>60 ml/min/1.73 sqM); Potassium 3.6 mmol/L (3.5-5.1); Sodium 137 mmol/L (137-145); Total Bilirubin 0.4 mg/dL (0.2-1.3); Total Protein 6.8 g/dL (6.3-8.2)
--- NOTE | 2023-12-29 03:13 | ED ---
Nausea/Vomiting/Diarrhea HPI - General Chief complaint: Nausea/Vomiting/Diarrhea Stated complaint: NV, pain Time Seen by Provider: 12/29/23 02:20 Source: patient, RN notes reviewed Mode of arrival: ambulatory Limitations: no limitations - History of Present Illness Initial comments: This is a 38-year-old female who is a very well-known patient to our emergency department who presents for complaint of abdominal pain, nausea, vomiting and back pain. Patient has had a recent procedure to replace her pain pump. Patient is concerned that there may be infection of the abdomen. States that the incision site is 'stinging'. Patient states that the pain medication that she is been taking at home. Alleviate her symptoms. Denies fevers, chills, hematemesis or coffee-ground emesis. - Related Data Home Medications Medication Instructions Recorded Confirmed Medroxyprogesterone Acetate 150 mg IM Q84D 11/22/13 10/07/20 [Depo-Provera] rOPINIRole HCL [Requip] 1 mg PO BID@0900,1200 11/22/13 10/07/20 Pentosan Polysulfate Sodium 100 mg PO DAILY 02/10/15 10/07/20 [Elmiron] HYDROcodone/APAP 7.5-325MG [[place] 1 tab PO BID 07/20/16 10/07/20 7.5-325] Paliperidone IM Pt Own [Invega 117 mg IM Q28D 07/20/16 10/07/20 Sustenna] amantadine HCL [Symmetrel] 100 mg PO BID 11/21/16 10/07/20 Albuterol Sulfate [Proair Hfa] 2 puff INHALATION RT-QID PRN 01/13/18 10/07/20 Butalb/Acetaminophen/Caffeine 1 tab PO Q8H PRN 01/13/18 10/07/20 [Fioricet 50-325-40] Fluticasone Propionate [Flovent 1 puff INHALATION RT-BID 01/13/18 10/07/20 Hfa 110 mcg] gemfibroziL [Lopid] 600 mg PO BID 01/13/18 10/07/20 Gabapentin [Neurontin] 300 mg PO TID 03/11/18 10/07/20 Gabapentin [Neurontin] 600 mg PO TID 09/16/19 10/07/20 Omeprazole [PriLOSEC] 40 mg PO DAILY 09/16/19 10/07/20 rOPINIRole HCL [Requip] 2 mg PO HS 09/16/19 10/07/20 traZODone HCL 300 mg PO HS 09/16/19 10/07/20 hydrOXYzine pamoate 25 mg PO BID 04/13/20 10/07/20 Cyclobenzaprine [Flexeril] 10 mg PO TID PRN 08/16/20 10/07/20 Fentanyl/Bupivcaine Pain Pump 1 dose INTRATHECA CONTINUOUS 08/16/20 10/07/20 Ibuprofen [Motrin] 600 mg PO TID PRN 10/07/20 10/07/20 diphenhydrAMINE [Benadryl] 50 mg PO DAILY PRN 10/07/20 10/07/20 Previous Rx's Medication Instructions Recorded Erythromycin Ophth Oint [Romycin 1 applic RIGHT EYE QID #1 bottle 10/03/20 Ophth Oint] Ondansetron Odt [Zofran Odt] 4 mg PO Q8HR PRN #14 tab 10/16/20 Ondansetron Odt [Zofran Odt] 4 mg PO Q8HR PRN #10 tab 06/21/21 predniSONE [Deltasone] 20 mg PO BID #10 tab 09/08/21 Cephalexin [Keflex] 500 mg PO Q8HR 7 Days #21 cap 11/25/21 Fluconazole [Diflucan] 150 mg PO ONCE #1 tab 11/25/21 Amoxic-Pot Clav 875-125Mg 1 tab PO Q12HR 7 Days #14 tab 05/02/23 [Augmentin 875-125] Ondansetron Odt [Zofran Odt] 8 mg PO Q8HR #9 tab 10/14/23 Ketorolac [Toradol] 10 mg PO Q8HR #15 tab 12/20/23 diphenhydrAMINE [Benadryl] 50 mg PO QID PRN #20 capsule 12/20/23 clindamycin HCL 300 mg PO QID #40 cap 12/29/23 Allergies Allergy/AdvReac Type Severity Reaction Status Date / Time azithromycin Allergy Rash/Hives Verified 12/26/23 19:36 [From Zithromax Z-Mehrdad] cimetidine [From Tagamet] Allergy Rash/Hives Verified 12/26/23 19:36 codeine Allergy Nausea & Verified 12/26/23 19:36 Vomiting ether [Ether] Allergy Anaphylaxis Verified 12/26/23 19:36 Fish Containing Products Allergy Anaphylaxis Verified 12/26/23 19:36 [Fish] ibuprofen [From Motrin] Allergy Rash/Hives Verified 12/26/23 19:36 morphine Allergy Unknown Verified 12/26/23 19:36 ziprasidone HCl [From Geodon] Allergy Extrapyramidal Verified 12/26/23 19:36 Symptoms ciprofloxacin [From Cipro] AdvReac Rash/Hives Verified 12/26/23 19:36 fluphenazine HCl AdvReac Extrapyramidal Verified 12/26/23 19:36 [From Prolixin] Symptoms haloperidol [From Haldol] AdvReac Extrapyramidal Verified 12/26/23 19:36 Symptoms Sulfa (Sulfonamide AdvReac Nausea & Verified 12/26/23 19:36 Antibiotics) Vomiting Review of Systems ROS Statement: Those systems with pertinent positive or pertinent negative responses have been documented in the HPI. ROS Other: All systems not noted in ROS Statement are negative. Past Medical History Past Medical History: Asthma, GERD/Reflux, Hyperlipidemia, Musculoskeletal Disorder, Neurologic Disorder, Osteoarthritis (OA), Seizure Disorder Additional Past Medical History / Comment(s): RSD-DERIC FEET, INTERSTITIAL CYSTITIS, BRONCHITIS, HEMORRHOIDS,MIGRAINES, INSOMNIA. VERTIGO, last seizure 4 years ago, complex regional pain syndrome, RLS. History of Any Multi-Drug Resistant Organisms: MRSA Date of last positivie culture/infection: 04/20/15 MDRO Source:: Left Axilla Past Surgical History: Adenoidectomy, Back Surgery, Cholecystectomy, Orthopedic Surgery, Tonsillectomy Additional Past Surgical History / Comment(s): bilateral foot surgery d/t rsd, numerous pain clinic procedures, nerve stimulator in back to tx RSD placed in Nov 11 2015, pain pump placement, replacement of stimulator 06/2021, replacement of pain pump. Past Anesthesia/Blood Transfusion Reactions: Previous Problems w/ Anesthesia Additional Past Anesthesia/Blood Transfusion Reaction / Comment(s): Pt recieved blood when she was 2 yrs old after tonsillectomy. WHEN BABY HEART STOPPED TWICE- PT STATED SHE WAS ALLERGIC TO ETHER. Past Psychological History: Anxiety, Bipolar, Depression, PTSD Smoking Status: Never smoker Past Alcohol Use History: None Reported Past Drug Use History: Marijuana - Past Family History Father History Unknown: Yes Family Medical History: Diabetes Mellitus Mother Family Medical History: Cancer, CVA/TIA, Diabetes Mellitus, Myocardial Infarction ([place]) Additional Family Medical History / Comment(s): Mother has had 5 CVAs, 3 MIs and UTERINE CANCER General Exam Limitations: no limitations General appearance: alert, in no apparent distress, anxious Eye exam: Present: normal appearance, PERRL, EOMI. Absent: scleral icterus, conjunctival injection, periorbital swelling ENT exam: Present: normal exam, mucous membranes moist Neck exam: Present: normal inspection. Absent: tenderness, meningismus, lymphadenopathy Respiratory exam: Present: normal lung sounds bilaterally. Absent: respiratory distress, wheezes, rales, rhonchi, stridor Cardiovascular Exam: Present: regular rate, normal rhythm, normal heart sounds. Absent: systolic murmur, diastolic murmur, rubs, gallop, clicks GI/Abdominal exam: Present: soft, normal bowel sounds, other (left sided lower quadrant previous surgial incision site, no erythema or purulence noted from site). Absent: distended, tenderness, guarding, rebound, rigid Extremities exam: Present: normal inspection, full ROM, normal capillary refill. Absent: tenderness, pedal edema, joint swelling, calf tenderness Back exam: Present: normal inspection, tenderness (lumbar spine), other (post surgical incision noted over the left lumbar/flank, pain to palpation, no overlying skin changes) Neurological exam: Present: alert, oriented X3, CN II-XII intact Skin exam: Present: warm, dry, intact, normal color. Absent: rash Course Vital Signs 12/29/23 12/29/23 02:05 05:14 Temperature 98 F Pulse Rate 104 H 94 Respiratory 20 20 Rate Blood Pressure 123/76 133/84 O2 Sat by Pulse 97 96 Oximetry Medical Decision Making - Medical Decision Making Was pt. sent in by a medical professional or institution (, PA, DIRECTOR REHABILITATION PROGRAM, urgent care, hospital, or shelter...) When possible be specific @ -No Did you speak to anyone other than the patient for history (EMS, parent, family, police, friend...)? What history was obtained from this source @ -No Did you review nursing and triage notes (agree or disagree)? Why? @ -I reviewed and agree with nursing and triage notes Were old charts reviewed (outside hosp., previous admission, EMS record, old EKG, old radiological studies, urgent care reports/EKG's, shelter records)? Report findings @ -No old charts were reviewed Differential Diagnosis (chest pain, altered mental status, abdominal pain women, abdominal pain men, vaginal bleeding, weakness, fever, dyspnea, syncope, headac he, dizziness, GI bleed, back pain, seizure, CVA, palpatations, mental health, musculoskeletal)? @ -Differential Back Pain: Strain, zoster, cauda equina syndrome, epidural abscess, vertebral osteomye litis, discitis, fracture, subluxation, disc herniation, DJD, spinal stenosis, dissection, AAA, pancreatitis, peptic ulcer disease, pyelonephritis, kidney stone, this is not meant to be an all-inclusive list. EKG interpreted by me (3pts min.). @ -None X-rays interpreted by me (1pt min.). @ -None done CT interpreted by me (1pt min.). @ -None done U/S interpreted by me (1pt. min.). @ -None done What testing was considered but not performed or refused? (CT, X-rays, U/S, labs)? Why? @ -None What meds were considered but not given or refused? Why? @ -None Did you discuss the management of the patient with other professionals (professionals i.e. , PA, DIRECTOR REHABILITATION PROGRAM, lab, RT, psych nurse, high school social studies tutor, field crops harvest machine operator, teacher, information technology officer, major case detective)? Give summary @ -No Was smoking cessation discussed for >3mins.? @ -No Was critical care preformed (if so, how long)? @ -No Were there social determinants of health that impacted care today? How? (Homelessness, low income, unemployed, alcoholism, drug addiction, transportation, low edu. Level, literacy, decrease access to med. care, snf, rehab)? @ -No Was there de-escalation of care discussed even if they declined (Discuss DNR or withdrawal of care, Hospice)? DNR status @ -No What co-morbidities impacted this encounter? (DM, HTN, Smoking, COPD, CAD, Cancer, CVA, ARF, Chemo, Hep., AIDS, mental health diagnosis, sleep apnea, morbid obesity)? @ -None Was patient admitted / discharged? Hospital course, mention meds given and route, prescriptions, significant lab abnormalities, going to OR and other pertinent info. @ -Discharge. 38-year-old female with nausea, vomiting, back pain. Patient is very well-known to emergency department and presents with similar symptoms. Patient states that she is concerned that there is an infection of her abdominal surgical incision. On examination there is no erythema or purulence over the site. There is mild active serous drainage. Patient's vitals are stable. She is provided with antiemetics and analgesics. On reevaluation patient states that she is feeling much better. She will be sent a prescription for clindamycin to cover for possible bacterial infection of incision site due to patient's pain of the incision. discussed with Dr. Hernandez Undiagnosed new problem with uncertain prognosis? @ -No Drug Therapy requiring intensive monitoring for toxicity (Heparin, Nitro, Insulin, Cardizem)? @ -No Were any procedures done? @ -No Diagnosis/symptom? @ -chronic back pain, nausea and vomiting Acute, or Chronic, or Acute on Chronic? @ -acute Uncomplicated (without systemic symptoms) or Complicated (systemic symptoms)? @ - uncomplicated Side effects of treatment? @ -No Exacerbation, Progression, or Severe Exacerbation? @ -No Poses a threat to life or bodily function? How? (Chest pain, [place], [place], pneumonia, PE, COPD, DKA, ARF, appy, cholecystitis, CVA, Diverticulitis, Homicidal, Suicidal, threat to staff... and all critical care pts) @ -No - Lab Data Result diagrams: 12/29/23 02:22 12/29/23 02:22 Lab Results 12/29/23 12/29/23 Range/Units 02:22 02:22 WBC 8.1 (3.8-10.6) k/uL RBC 4.60 (3.80-5.40) m/uL Hgb 14.0 (11.4-16.0) gm/dL Hct 42.8 (34.0-46.0) % MCV 93.0 (80.0-100.0) fL MCH 30.4 (25.0-35.0) pg MCHC 32.7 (31.0-37.0) g/dL RDW 12.8 (11.5-15.5) % Plt Count 360 (150-450) k/uL MPV 7.0 Neutrophils % 71 % Lymphocytes % 21 % Monocytes % 6 % Eosinophils % 1 % Basophils % 0 % Neutrophils # 5.8 (1.3-7.7) k/uL Lymphocytes # 1.7 (1.0-4.8) k/uL Monocytes # 0.5 (0-1.0) k/uL Eosinophils # 0.1 (0-0.7) k/uL Basophils # 0.0 (0-0.2) k/uL Sodium 137 (137-145) mmol/L Potassium 3.6 (3.5-5.1) mmol/L Chloride 108 H (98-107) mmol/L Carbon Dioxide 17 L (22-30) mmol/L Anion Gap 12 mmol/L BUN 25 H (7-17) mg/dL Creatinine 0.69 (0.52-1.04) mg/dL Est GFR (CKD-EPI)AfAm >90 (>60 ml/min/1.73 sqM) Est GFR (CKD-EPI)NonAf >90 (>60 ml/min/1.73 sqM) Glucose 130 H (74-99) mg/dL Calcium 9.9 (8.4-10.2) mg/dL Total Bilirubin 0.4 (0.2-1.3) mg/dL AST 17 (14-36) U/L ALT 13 (4-34) U/L Alkaline Phosphatase 100 (38-126) U/L Total Protein 6.8 (6.3-8.2) g/dL Albumin 4.6 (3.5-5.0) g/dL Amylase 50 (30-110) U/L Lipase 102 (23-300) U/L Disposition Clinical Impression: Nausea and vomiting, Chronic pain Disposition: HOME SELF-CARE Condition: Stable Instructions (If sedation given, give patient instructions): Chronic Back Pain (DC) Additional Instructions: Please return to the Emergency Department if symptoms worsen or any other concerns. Prescriptions: clindamycin HCL 300 mg PO QID #40 cap Is patient prescribed a controlled substance at d/c from ED?: No Referrals: None,Stated [Primary Care Provider] - 1-2 days Time of Disposition: 04:25
[2023-12-29] MEDS: HYDROmorphone 1 MG/ML 1 ML SYRINGE IVP STA ×2 (04:17)
[2023-12-29] MEDS: diphenhydrAMINE 50 MG/ML 1 ML VIAL IVP STA (04:17)
[2023-12-29] MEDS: PROCHLORPERAZINE 10 MG TAB PO STA (04:18)
[2023-12-29] MEDS: SODIUM CHLORIDE 0.9% 500 ML 500 ML IV STA (04:18)
[2023-12-29 05:24] VITALS: BP 133/84; PULSE 94
== END 2023-12-29 05:25 | disposition home or self-care (01) ==
LOC: EC 02:02
CPT/HCPCS: 36415; 80053; 82150; 83690; 85025; 96361; 96374; 96375; 99284

== ENCOUNTER 2024-01-12 02:22 | Emergency (ER) | payer MEDICARE, OTHER ==
[2024-01-12 02:26] VITALS: BP 150/85; TEMP 97.8
--- NOTE | 2024-01-12 02:34 | ED ---
Recheck HPI - General Chief Complaint: Abdominal Pain Stated Complaint: Post-Op Pain Time Seen by Provider: 01/12/24 02:31 Source: patient, RN notes reviewed, old records reviewed Mode of arrival: ambulatory Limitations: no limitations - History of Present Illness Initial Comments: This is a 38-year-old female to the ER. This patient presents today for evaluation regards to postoperative pain patient recently had pain pump removed and now having persistent pain MD Complaint: medication refill request Returns Today for: persistent/worsening pain related to initial visit Symptoms Since Prior Visit: worsening pain Context: ran out of medication Associated Symptoms: abdominal pain Treatments Prior to Arrival: Given Pain Meds on - Related Data Home Medications Medication Instructions Recorded Confirmed Medroxyprogesterone Acetate 150 mg IM Q84D 11/22/13 10/07/20 [Depo-Provera] rOPINIRole HCL [Requip] 1 mg PO BID@0900,1200 11/22/13 10/07/20 Pentosan Polysulfate Sodium 100 mg PO DAILY 02/10/15 10/07/20 [Elmiron] HYDROcodone/APAP 7.5-325MG [[place] 1 tab PO BID 07/20/16 10/07/20 7.5-325] Paliperidone IM Pt Own [Invega 117 mg IM Q28D 07/20/16 10/07/20 Sustenna] amantadine HCL [Symmetrel] 100 mg PO BID 11/21/16 10/07/20 Albuterol Sulfate [Proair Hfa] 2 puff INHALATION RT-QID PRN 01/13/18 10/07/20 Butalb/Acetaminophen/Caffeine 1 tab PO Q8H PRN 01/13/18 10/07/20 [Fioricet 50-325-40] Fluticasone Propionate [Flovent 1 puff INHALATION RT-BID 01/13/18 10/07/20 Hfa 110 mcg] gemfibroziL [Lopid] 600 mg PO BID 01/13/18 10/07/20 Gabapentin [Neurontin] 300 mg PO TID 03/11/18 10/07/20 Gabapentin [Neurontin] 600 mg PO TID 09/16/19 10/07/20 Omeprazole [PriLOSEC] 40 mg PO DAILY 09/16/19 10/07/20 rOPINIRole HCL [Requip] 2 mg PO HS 09/16/19 10/07/20 traZODone HCL 300 mg PO HS 09/16/19 10/07/20 hydrOXYzine pamoate 25 mg PO BID 04/13/20 10/07/20 Cyclobenzaprine [Flexeril] 10 mg PO TID PRN 08/16/20 10/07/20 Fentanyl/Bupivcaine Pain Pump 1 dose INTRATHECA CONTINUOUS 08/16/20 10/07/20 Ibuprofen [Motrin] 600 mg PO TID PRN 10/07/20 10/07/20 diphenhydrAMINE [Benadryl] 50 mg PO DAILY PRN 10/07/20 10/07/20 Previous Rx's Medication Instructions Recorded Erythromycin Ophth Oint [Romycin 1 applic RIGHT EYE QID #1 bottle 10/03/20 Ophth Oint] Ondansetron Odt [Zofran Odt] 4 mg PO Q8HR PRN #14 tab 10/16/20 Ondansetron Odt [Zofran Odt] 4 mg PO Q8HR PRN #10 tab 06/21/21 predniSONE [Deltasone] 20 mg PO BID #10 tab 09/08/21 Cephalexin [Keflex] 500 mg PO Q8HR 7 Days #21 cap 11/25/21 Fluconazole [Diflucan] 150 mg PO ONCE #1 tab 11/25/21 Amoxic-Pot Clav 875-125Mg 1 tab PO Q12HR 7 Days #14 tab 05/02/23 [Augmentin 875-125] Ondansetron Odt [Zofran Odt] 8 mg PO Q8HR #9 tab 10/14/23 Ketorolac [Toradol] 10 mg PO Q8HR #15 tab 12/20/23 diphenhydrAMINE [Benadryl] 50 mg PO QID PRN #20 capsule 12/20/23 clindamycin HCL 300 mg PO QID #40 cap 12/29/23 Allergies Allergy/AdvReac Type Severity Reaction Status Date / Time azithromycin Allergy Rash/Hives Verified 01/12/24 02:27 [From Zithromax Z-Mehrdad] cimetidine [From Tagamet] Allergy Rash/Hives Verified 01/12/24 02:27 codeine Allergy Nausea & Verified 01/12/24 02:27 Vomiting ether [Ether] Allergy Anaphylaxis Verified 01/12/24 02:27 Fish Containing Products Allergy Anaphylaxis Verified 01/12/24 02:27 [Fish] ibuprofen [From Motrin] Allergy Rash/Hives Verified 01/12/24 02:27 morphine Allergy Unknown Verified 01/12/24 02:27 NSAIDS (Non-Steroidal Allergy Rash/Hives Verified 01/12/24 02:27 Anti-Inflamma ziprasidone HCl [From Geodon] Allergy Extrapyramidal Verified 01/12/24 02:27 Symptoms ciprofloxacin [From Cipro] AdvReac Rash/Hives Verified 01/12/24 02:27 fluphenazine HCl AdvReac Extrapyramidal Verified 01/12/24 02:27 [From Prolixin] Symptoms haloperidol [From Haldol] AdvReac Extrapyramidal Verified 12/26/23 19:36 Symptoms Sulfa (Sulfonamide AdvReac Nausea & Verified 12/26/23 19:36 Antibiotics) Vomiting Review of Systems ROS Statement: Those systems with pertinent positive or pertinent negative responses have been documented in the HPI. ROS Other: All systems not noted in ROS Statement are negative. Past Medical History Past Medical History: Asthma, GERD/Reflux, Hyperlipidemia, Musculoskeletal Disorder, Neurologic Disorder, Osteoarthritis (OA), Seizure Disorder Additional Past Medical History / Comment(s): RSD-DERIC FEET, INTERSTITIAL CYSTITIS, BRONCHITIS, HEMORRHOIDS,MIGRAINES, INSOMNIA. VERTIGO, last seizure 4 years ago, complex regional pain syndrome, RLS. History of Any Multi-Drug Resistant Organisms: MRSA Date of last positivie culture/infection: 04/20/15 MDRO Source:: Left Axilla Past Surgical History: Adenoidectomy, Back Surgery, Cholecystectomy, Orthopedic Surgery, Tonsillectomy Additional Past Surgical History / Comment(s): bilateral foot surgery d/t rsd, numerous pain clinic procedures, nerve stimulator in back to tx RSD placed in Nov 11 2015, pain pump placement, replacement of stimulator 06/2021, replacement of pain pump. Past Anesthesia/Blood Transfusion Reactions: Previous Problems w/ Anesthesia Additional Past Anesthesia/Blood Transfusion Reaction / Comment(s): Pt recieved blood when she was 2 yrs old after tonsillectomy. WHEN BABY HEART STOPPED TWICE- PT STATED SHE WAS ALLERGIC TO ETHER. Past Psychological History: Anxiety, Bipolar, Depression, PTSD Smoking Status: Never smoker Past Alcohol Use History: None Reported Past Drug Use History: Marijuana - Past Family History Father History Unknown: Yes Family Medical History: Diabetes Mellitus Mother Family Medical History: Cancer, CVA/TIA, Diabetes Mellitus, Myocardial Infarction ([place]) Additional Family Medical History / Comment(s): Mother has had 5 CVAs, 3 MIs and UTERINE CANCER General Exam General appearance: alert, in no apparent distress, anxious Head exam: Present: atraumatic, normocephalic, normal inspection Eye exam: Present: normal appearance, PERRL, EOMI. Absent: scleral icterus, conjunctival injection, periorbital swelling ENT exam: Present: normal exam, mucous membranes moist Neck exam: Present: normal inspection. Absent: tenderness, meningismus, lymphadenopathy Respiratory exam: Present: normal lung sounds bilaterally. Absent: respiratory distress, wheezes, rales, rhonchi, stridor Cardiovascular Exam: Present: regular rate, normal rhythm, normal heart sounds. Absent: systolic murmur, diastolic murmur, rubs, gallop, clicks GI/Abdominal exam: Present: soft, normal bowel sounds. Absent: distended, t enderness, guarding, rebound, rigid Extremities exam: Present: normal inspection, full ROM, normal capillary refill. Absent: tenderness, pedal edema, joint swelling, calf tenderness Back exam: Present: normal inspection Neurological exam: Present: alert, oriented X3, CN II-XII intact Psychiatric exam: Present: normal affect, normal mood Skin exam: Present: warm, dry, intact, normal color. Absent: rash Course Vital Signs 01/12/24 01/12/24 02:23 02:56 Temperature 97.8 F Pulse Rate 140 H 119 H Respiratory 19 18 Rate Blood Pressure 150/85 O2 Sat by Pulse 96 97 Oximetry - Reevaluation(s) Reevaluation #1: 01/12/24 02:44 Records reviewed Reevaluation #2: 01/12/24 02:44 Patient's pain is improved Reevaluation #3: 01/12/24 02:44 Patient informed of results questions answered Reevaluation #4: Was pt. sent in by a medical professional or institution (, PA, DIRECTOR FURNITURE, urgent care, hospital, or senior living...) When possible be specific @ -no Did you speak to anyone other than the patient for history (EMS, parent, family, police, friend...)? What history was obtained from this source @ -no Did you review nursing and triage notes (agree or disagree)? Why? @ -agree Are old charts reviewed (outside hosp., previous admission, EMS record, old EKG, old radiological studies, urgent care reports/EKG's, senior living records)? Report findings @ -yes Differential Diagnosis (chest pain, altered mental status, abdominal pain women, abdominal pain men, vaginal bleeding, weakness, fever, dyspnea, syncope, headache, dizziness, GI bleed, back pain, seizure, CVA, palpatations, mental health, musculoskeletal)? @ -prior EKG interpreted by me (3pts min.). @ -no X-rays interpreted by me (1pt min.). @ -no CT interpreted by me (1pt min.). @ -no U/S interpreted by me (1pt. min.). @ -no What testing was considered but not performed or refused? (CT, X-rays, U/S, labs)? Why? @ -none What meds were considered but not given or refused? Why? @ -none Did you discuss the management of the patient with other professionals (professionals i.e. , PA, DIRECTOR FURNITURE, lab, RT, psych nurse, director of social services, fuel attendant, teacher, corporate development officer, foster care case manager)? Give summary @ -no Was smoking cessation discussed for >3mins.? @ -no Was critical care preformed (if so, how long)? @ -no Were there social determinants of health that impacted care today? How? (Homelessness, low income, unemployed, alcoholism, drug addiction, transportation, low edu. Level, literacy, decrease access to med. care, usp, rehab)? @ -none Was there de-escalation of care discussed even if they declined (Discuss DNR or withdrawal of care, Hospice)? DNR status @ -no What co-morbidities impacted this encounter? (DM, HTN, Smoking, COPD, CAD, Cancer, CVA, ARF, Chemo, Hep., AIDS, mental health diagnosis, sleep apnea, morbid obesity)? @ -none Was patient admitted / discharged? Hospital course, mention meds given and r oute, prescriptions, significant lab abnormalities, going to OR and other pertinent info. @ - 38 female postoperative complication. Has adequate pain control can be discharged home Discharge postoperative pain Undiagnosed new problem with uncertain prognosis? @ -no Drug Therapy requiring intensive monitoring for toxicity (Heparin, Nitro, Insulin, Cardizem)? @ -no Were any procedures done? @ -no Diagnosis/symptom? @ - Acute, or Chronic, or Acute on Chronic? @ -Acute Uncomplicated (without systemic symptoms) or Complicated (systemic symptoms)? @ -Complicated Side effects of treatment? @ -no Exacerbation, Progression, or Severe Exacerbation? @ -exacerbation Poses a threat to life or bodily function? How? (Chest pain, [place], [place], pneumonia, PE, COPD, DKA, ARF, appy, cholecystitis, CVA, Diverticulitis, Homicidal, Suicidal, threat to staff... and all critical care pts) @ -yes with postoperative complication Medical Decision Making - Medical Decision Making 38 female postoperative complication. Has adequate pain control can be discharged home Disposition Clinical Impression: Post-op pain Disposition: HOME SELF-CARE Condition: Good Instructions (If sedation given, give patient instructions): Pain Management After Surgery (DC) Is patient prescribed a controlled substance at d/c from ED?: No Referrals: None,Stated [Primary Care Provider] - 1-2 days Time of Disposition: 02:45
[2024-01-12] MEDS: LORazepam 1 MG TAB PO STA (02:52)
[2024-01-12] MEDS: HYDROmorphone 1 MG/ML 1 ML SYRINGE IM STA (02:52)
[2024-01-12] MEDS: cloNIDine 0.1 MG/24HR PATCH TRANSDERM STA (02:52)
[2024-01-12 02:57] VITALS: PULSE 119; RESP 18
== END 2024-01-12 02:57 | disposition home or self-care (01) ==
LOC: EC 02:22
CPT/HCPCS: 96372; 99283

== ENCOUNTER 2024-01-21 05:04 | Emergency (ER) | payer MEDICARE, OTHER ==
[2024-01-21 05:10] VITALS: RESP 18; TEMP 98.4
[2024-01-21] MEDS: diphenhydrAMINE 50 MG/ML 1 ML VIAL IM STA (06:11)
[2024-01-21] MEDS: ONDANSETRON 4 MG/2 ML VIAL IM STA (06:12)
[2024-01-21] MEDS: HYDROmorphone 1 MG/ML 1 ML SYRINGE IM STA ×2 (06:12→07:02)
[2024-01-21] MEDS: KETOROLAC 15 MG/ML 1 ML VIAL IM STA (06:13)
[2024-01-21] MEDS: CEPHALEXIN 500 MG CAP PO STA (06:24)
--- NOTE | 2024-01-21 06:53 | ED ---
Abdominal Pain HPI - General Chief Complaint: Abdominal Pain Stated Complaint: Pain/infection Time Seen by Provider: 01/21/24 05:58 Source: patient, RN notes reviewed Mode of arrival: EMS Limitations: no limitations - History of Present Illness Initial Comments: This is a 38-year-old female who presents to the emergency department for problems related to her abdominal incision. She had her pain pump removed with Dr. Shannon on 01/09/2024. They have temporarily switched her to fentanyl patches and plan to replace the pain pump in about 4 weeks. She has an appointment with him later today to have the gloria removed. States that when she woke up she noticed that her abdomen was wet and she had drainage coming from the incision as well as surrounding redness. This is also increasingly painful. Denies any fevers or chills. MD Complaint: abdominal pain - Related Data Home Medications Medication Instructions Recorded Confirmed Medroxyprogesterone Acetate 150 mg IM Q84D 11/22/13 10/07/20 [Depo-Provera] rOPINIRole HCL [Requip] 1 mg PO BID@0900,1200 11/22/13 10/07/20 Pentosan Polysulfate Sodium 100 mg PO DAILY 02/10/15 10/07/20 [Elmiron] HYDROcodone/APAP 7.5-325MG [[place] 1 tab PO BID 07/20/16 10/07/20 7.5-325] Paliperidone IM Pt Own [Invega 117 mg IM Q28D 07/20/16 10/07/20 Sustenna] amantadine HCL [Symmetrel] 100 mg PO BID 11/21/16 10/07/20 Albuterol Sulfate [Proair Hfa] 2 puff INHALATION RT-QID PRN 01/13/18 10/07/20 Butalb/Acetaminophen/Caffeine 1 tab PO Q8H PRN 01/13/18 10/07/20 [Fioricet 50-325-40] Fluticasone Propionate [Flovent 1 puff INHALATION RT-BID 01/13/18 10/07/20 Hfa 110 mcg] gemfibroziL [Lopid] 600 mg PO BID 01/13/18 10/07/20 Gabapentin [Neurontin] 300 mg PO TID 03/11/18 10/07/20 Gabapentin [Neurontin] 600 mg PO TID 09/16/19 10/07/20 Omeprazole [PriLOSEC] 40 mg PO DAILY 09/16/19 10/07/20 rOPINIRole HCL [Requip] 2 mg PO HS 09/16/19 10/07/20 traZODone HCL 300 mg PO HS 09/16/19 10/07/20 hydrOXYzine pamoate 25 mg PO BID 04/13/20 10/07/20 Cyclobenzaprine [Flexeril] 10 mg PO TID PRN 08/16/20 10/07/20 Fentanyl/Bupivcaine Pain Pump 1 dose INTRATHECA CONTINUOUS 08/16/20 10/07/20 Ibuprofen [Motrin] 600 mg PO TID PRN 10/07/20 10/07/20 diphenhydrAMINE [Benadryl] 50 mg PO DAILY PRN 10/07/20 10/07/20 Previous Rx's Medication Instructions Recorded Erythromycin Ophth Oint [Romycin 1 applic RIGHT EYE QID #1 bottle 10/03/20 Ophth Oint] Ondansetron Odt [Zofran Odt] 4 mg PO Q8HR PRN #14 tab 10/16/20 Ondansetron Odt [Zofran Odt] 4 mg PO Q8HR PRN #10 tab 06/21/21 predniSONE [Deltasone] 20 mg PO BID #10 tab 09/08/21 Cephalexin [Keflex] 500 mg PO Q8HR 7 Days #21 cap 11/25/21 Fluconazole [Diflucan] 150 mg PO ONCE #1 tab 11/25/21 Amoxic-Pot Clav 875-125Mg 1 tab PO Q12HR 7 Days #14 tab 05/02/23 [Augmentin 875-125] Ondansetron Odt [Zofran Odt] 8 mg PO Q8HR #9 tab 10/14/23 Ketorolac [Toradol] 10 mg PO Q8HR #15 tab 12/20/23 diphenhydrAMINE [Benadryl] 50 mg PO QID PRN #20 capsule 12/20/23 clindamycin HCL 300 mg PO QID #40 cap 12/29/23 Cephalexin [Keflex] 500 mg PO Q6HR 7 Days #28 cap 01/21/24 Allergies Allergy/AdvReac Type Severity Reaction Status Date / Time azithromycin Allergy Rash/Hives Verified 01/12/24 02:27 [From Zithromax Z-Mehrdad] cimetidine [From Tagamet] Allergy Rash/Hives Verified 01/12/24 02:27 codeine Allergy Nausea & Verified 01/12/24 02:27 Vomiting ether [Ether] Allergy Anaphylaxis Verified 01/12/24 02:27 Fish Containing Products Allergy Anaphylaxis Verified 01/12/24 02:27 [Fish] ibuprofen [From Motrin] Allergy Rash/Hives Verified 01/12/24 02:27 morphine Allergy Unknown Verified 01/12/24 02:27 NSAIDS (Non-Steroidal Allergy Rash/Hives Verified 01/12/24 02:27 Anti-Inflamma ziprasidone HCl [From Geodon] Allergy Extrapyramidal Verified 01/12/24 02:27 Symptoms ciprofloxacin [From Cipro] AdvReac Rash/Hives Verified 01/12/24 02:27 fluphenazine HCl AdvReac Extrapyramidal Verified 01/12/24 02:27 [From Prolixin] Symptoms haloperidol [From Haldol] AdvReac Extrapyramidal Verified 12/26/23 19:36 Symptoms Sulfa (Sulfonamide AdvReac Nausea & Verified 12/26/23 19:36 Antibiotics) Vomiting Review of Systems ROS Statement: Those systems with pertinent positive or pertinent negative responses have been documented in the HPI. ROS Other: All systems not noted in ROS Statement are negative. Past Medical History Past Medical History: Asthma, GERD/Reflux, Hyperlipidemia, Musculoskeletal Disorder, Neurologic Disorder, Osteoarthritis (OA), Seizure Disorder Additional Past Medical History / Comment(s): RSD-DERIC FEET, INTERSTITIAL CYSTITIS, BRONCHITIS, HEMORRHOIDS,MIGRAINES, INSOMNIA. VERTIGO, last seizure 4 years ago, complex regional pain syndrome, RLS. History of Any Multi-Drug Resistant Organisms: MRSA Date of last positivie culture/infection: 04/20/15 MDRO Source:: Left Axilla Past Surgical History: Adenoidectomy, Back Surgery, Cholecystectomy, Orthopedic Surgery, Tonsillectomy Additional Past Surgical History / Comment(s): bilateral foot surgery d/t rsd, numerous pain clinic procedures, nerve stimulator in back to tx RSD placed in Nov 11 2015, pain pump placement, replacement of stimulator 06/2021, replacement of pain pump. Past Anesthesia/Blood Transfusion Reactions: Previous Problems w/ Anesthesia Additional Past Anesthesia/Blood Transfusion Reaction / Comment(s): Pt recieved blood when she was 2 yrs old after tonsillectomy. WHEN BABY HEART STOPPED TWICE- PT STATED SHE WAS ALLERGIC TO ETHER. Past Psychological History: Anxiety, Bipolar, Depression, PTSD Smoking Status: Never smoker Past Alcohol Use History: None Reported Past Drug Use History: Marijuana - Past Family History Father History Unknown: Yes Family Medical History: Diabetes Mellitus Mother Family Medical History: Cancer, CVA/TIA, Diabetes Mellitus, Myocardial Infarction ([place]) Additional Family Medical History / Comment(s): Mother has had 5 CVAs, 3 MIs and UTERINE CANCER General Exam Limitations: no limitations General appearance: alert, anxious, in distress Head exam: Present: atraumatic, normocephalic, normal inspection Respiratory exam: Present: normal lung sounds bilaterally. Absent: respiratory distress, wheezes, rales, rhonchi, stridor Cardiovascular Exam: Present: regular rate, normal rhythm, normal heart sounds. Absent: systolic murmur, diastolic murmur, rubs, gallop, clicks GI/Abdominal exam: Present: other (Incision along the left lower quadrant is intact. Mild surrounding erythema and tenderness. No active drainage. Serous drainage on bandages.) Neurological exam: Present: alert, oriented X3, CN II-XII intact Psychiatric exam: Present: normal affect, normal mood Course Vital Signs 01/21/24 01/21/24 05:05 07:09 Temperature 98.4 F Pulse Rate 105 H 95 Respiratory 18 18 Rate Blood Pressure 126/84 112/72 O2 Sat by Pulse 99 99 Oximetry Medical Decision Making - Medical Decision Making This is a 38-year-old female who presents to the emergency department for concerns of redness around her abdominal incision. Was pt. sent in by a medical professional or institution? @ -No Did you speak to anyone other than the patient for history? @ -No Did you review nursing and triage notes? @ -Yes, and I agree, it is accurate with regards to the patient's symptoms. Were old charts reviewed? @ -No Differential Diagnosis? @ -Cellulitis, wound dehiscence, granulation tissue, expected healing, abscess, this is not meant to be an all-inclusive list. EKG interpreted by me (3pts min.)? @ -Not obtained X-rays interpreted by me (1pt min.)? @ -Not obtained CT interpreted by me (1pt min.)? @ -Not obtained U/S interpreted by me (1pt. min.)? @ -Not obtained What testing was considered but not performed? (CT, X-rays, U/S, labs)? Why? @ -None What meds were considered but not given? Why? @ -None Did you discuss the management of the patient with other professionals? @ -No Did you reconcile home meds? @ -No Was smoking cessation discussed for >3mins.? @ -No Was critical care preformed (if so, how long)? @ -No Were there social determinants of health that impacted care today? How? (Homelessness, low income, unemployed, alcoholism, drug addiction, transportation, low edu. Level, literacy, decrease access to med. care, group home, rehab)? @ -No Was there de-escalation of care discussed even if they declined? (Discuss DNR or withdrawal of care, Hospice)? @ -No What co-morbidities impacted this encounter? (DM, HTN, Smoking, COPD, CAD, Cancer, CVA, Hep., AIDS, mental health diagnosis, sleep apnea, morbid obesity)? @ -Musculoskeletal disorder, neurologic disorder Was patient admitted / discharged? @ -Discharged. On exam her incision was intact. She did have mild surrounding erythema and tenderness. The bandages appear to have dry serous fluid on them. Discussed that she may be developing cellulitis. Pain was managed in the emergency department and she was given the first dose of Keflex. Prescription for Keflex provided. She does have an appointment with Dr. Shannon at 9:45 AM today. Advised she follow-up as scheduled to have him further evaluate the incision and give her further instruction. Patient discharged home in stable condition. Case discussed with ED attending Dr. Hernandez. Return precautions reviewed in depth, the patient is instructed to return to the emergency department with any new, worsening, or concerning symptoms. Patient verbalized understanding. Undiagnosed new problem with uncertain prognosis? @ -None Drug Therapy requiring intensive monitoring for toxicity (Heparin, Nitro, Insulin, Cardizem)? @ -None Were any procedures done? @ -None Diagnosis/symptom? @ -Infected incision, cellulitis Acute, or Chronic, or Acute on Chronic? @ -Acute Uncomplicated (without systemic symptoms) or Complicated (systemic symptoms)? @ -Uncomplicated Side effects of treatment? @ -None Exacerbation, Progression, or Severe Exacerbation] @ -Not applicable Poses a threat to life or bodily function? @ -No Disposition Clinical Impression: Incisional infection, Cellulitis Disposition: HOME SELF-CARE Condition: Stable Instructions (If sedation given, give patient instructions): Cellulitis (ED) Additional Instructions: Return to the emergency department with any new, worsening, or concerning symptoms. Take the antibiotic as prescribed for 7 days. Follow-up with Dr. Shannon as scheduled today. Follow up with your primary care provider in 1-2 days. Prescriptions: Cephalexin [Keflex] 500 mg PO Q6HR 7 Days #28 cap Is patient prescribed a controlled substance at d/c from ED?: No Referrals: None,Stated [Primary Care Provider] - 1-2 days Time of Disposition: 06:53
[2024-01-21] MEDS: LORazepam 2 MG/ML INJ IM STA (07:01)
[2024-01-21 07:12] VITALS: BP 112/72; PULSE 95
== END 2024-01-21 07:09 | disposition home or self-care (01) ==
LOC: EC 05:04
CPT/HCPCS: 96372; 99284

== ENCOUNTER 2024-02-01 20:08 | Emergency (ER) | payer MEDICARE, OTHER ==
[2024-02-01 20:16] VITALS: TEMP 97.7
--- NOTE | 2024-02-01 20:55 | ED ---
General Adult HPI - General Chief complaint: Chest Pain Stated complaint: post op pain, back&abd Time Seen by Provider: 02/01/24 20:20 Source: patient, RN notes reviewed Mode of arrival: ambulatory Limitations: no limitations - History of Present Illness Initial comments: This is a 38-year-old female that is well-known to emergency department at the Emergency Department for chief complaint of noncardiac chest pain. States that yesterday she was outside raking leaves when she fell like she may have strained part of her muscles in her chest. Patient denies falling or direct injuries to the chest however states that pain is exacerbated with range of motion and palpation. She denies heart palpitations, chest pressure, dizziness, lightheadedness or fatigue. Patient is also complaining of abdominal pain after pain pump removal. Patient has been taking [place] at home and has fentanyl patches with minimal relief. - Related Data Home Medications Medication Instructions Recorded Confirmed Medroxyprogesterone Acetate 150 mg IM Q84D 11/22/13 10/07/20 [Depo-Provera] rOPINIRole HCL [Requip] 1 mg PO BID@0900,1200 11/22/13 10/07/20 Pentosan Polysulfate Sodium 100 mg PO DAILY 02/10/15 10/07/20 [Elmiron] HYDROcodone/APAP 7.5-325MG [[place] 1 tab PO BID 07/20/16 10/07/20 7.5-325] Paliperidone IM Pt Own [Invega 117 mg IM Q28D 07/20/16 10/07/20 Sustenna] amantadine HCL [Symmetrel] 100 mg PO BID 11/21/16 10/07/20 Albuterol Sulfate [Proair Hfa] 2 puff INHALATION RT-QID PRN 01/13/18 10/07/20 Butalb/Acetaminophen/Caffeine 1 tab PO Q8H PRN 01/13/18 10/07/20 [Fioricet 50-325-40] Fluticasone Propionate [Flovent 1 puff INHALATION RT-BID 01/13/18 10/07/20 Hfa 110 mcg] gemfibroziL [Lopid] 600 mg PO BID 01/13/18 10/07/20 Gabapentin [Neurontin] 300 mg PO TID 03/11/18 10/07/20 Gabapentin [Neurontin] 600 mg PO TID 09/16/19 10/07/20 Omeprazole [PriLOSEC] 40 mg PO DAILY 09/16/19 10/07/20 rOPINIRole HCL [Requip] 2 mg PO HS 09/16/19 10/07/20 traZODone HCL 300 mg PO HS 09/16/19 10/07/20 hydrOXYzine pamoate 25 mg PO BID 04/13/20 10/07/20 Cyclobenzaprine [Flexeril] 10 mg PO TID PRN 08/16/20 10/07/20 Fentanyl/Bupivcaine Pain Pump 1 dose INTRATHECA CONTINUOUS 08/16/20 10/07/20 Ibuprofen [Motrin] 600 mg PO TID PRN 10/07/20 10/07/20 diphenhydrAMINE [Benadryl] 50 mg PO DAILY PRN 10/07/20 10/07/20 Previous Rx's Medication Instructions Recorded Erythromycin Ophth Oint [Romycin 1 applic RIGHT EYE QID #1 bottle 10/03/20 Ophth Oint] Ondansetron Odt [Zofran Odt] 4 mg PO Q8HR PRN #14 tab 10/16/20 Ondansetron Odt [Zofran Odt] 4 mg PO Q8HR PRN #10 tab 06/21/21 predniSONE [Deltasone] 20 mg PO BID #10 tab 09/08/21 Cephalexin [Keflex] 500 mg PO Q8HR 7 Days #21 cap 11/25/21 Fluconazole [Diflucan] 150 mg PO ONCE #1 tab 11/25/21 Amoxic-Pot Clav 875-125Mg 1 tab PO Q12HR 7 Days #14 tab 05/02/23 [Augmentin 875-125] Ondansetron Odt [Zofran Odt] 8 mg PO Q8HR #9 tab 10/14/23 Ketorolac [Toradol] 10 mg PO Q8HR #15 tab 12/20/23 diphenhydrAMINE [Benadryl] 50 mg PO QID PRN #20 capsule 12/20/23 clindamycin HCL 300 mg PO QID #40 cap 12/29/23 Cephalexin [Keflex] 500 mg PO Q6HR 7 Days #28 cap 01/21/24 Allergies Allergy/AdvReac Type Severity Reaction Status Date / Time azithromycin Allergy Rash/Hives Verified 02/01/24 20:10 [From Zithromax Z-Mehrdad] cimetidine [From Tagamet] Allergy Rash/Hives Verified 02/01/24 20:10 codeine Allergy Nausea & Verified 02/01/24 20:10 Vomiting ether [Ether] Allergy Anaphylaxis Verified 02/01/24 20:10 Fish Containing Products Allergy Anaphylaxis Verified 02/01/24 20:10 [Fish] ibuprofen [From Motrin] Allergy Rash/Hives Verified 02/01/24 20:10 morphine Allergy Unknown Verified 02/01/24 20:10 NSAIDS (Non-Steroidal Allergy Rash/Hives Verified 02/01/24 20:10 Anti-Inflamma ziprasidone HCl [From Geodon] Allergy Extrapyramidal Verified 02/01/24 20:10 Symptoms ciprofloxacin [From Cipro] AdvReac Rash/Hives Verified 02/01/24 20:10 fluphenazine HCl AdvReac Extrapyramidal Verified 02/01/24 20:10 [From Prolixin] Symptoms haloperidol [From Haldol] AdvReac Extrapyramidal Verified 02/01/24 20:10 Symptoms Sulfa (Sulfonamide AdvReac Nausea & Verified 02/01/24 20:10 Antibiotics) Vomiting Review of Systems ROS Statement: Those systems with pertinent positive or pertinent negative responses have been documented in the HPI. ROS Other: All systems not noted in ROS Statement are negative. Past Medical History Past Medical History: Asthma, GERD/Reflux, Hyperlipidemia, Musculoskeletal Disorder, Neurologic Disorder, Osteoarthritis (OA), Seizure Disorder Additional Past Medical History / Comment(s): RSD-DERIC FEET, INTERSTITIAL CYSTITI S, BRONCHITIS, HEMORRHOIDS,MIGRAINES, INSOMNIA. VERTIGO, last seizure 4 years ago, complex regional pain syndrome, RLS. History of Any Multi-Drug Resistant Organisms: MRSA Date of last positivie culture/infection: 04/20/15 MDRO Source:: Left Axilla Past Surgical History: Adenoidectomy, Back Surgery, Cholecystectomy, Orthopedic Surgery, Tonsillectomy Additional Past Surgical History / Comment(s): bilateral foot surgery d/t rsd, numerous pain clinic procedures, nerve stimulator in back to tx RSD placed in Nov 11 2015, pain pump placement, replacement of stimulator 06/2021, replacement of pain pump. Past Anesthesia/Blood Transfusion Reactions: Previous Problems w/ Anesthesia Additional Past Anesthesia/Blood Transfusion Reaction / Comment(s): Pt recieved blood when she was 2 yrs old after tonsillectomy. WHEN BABY HEART STOPPED TWICE- PT STATED SHE WAS ALLERGIC TO ETHER. Past Psychological History: Anxiety, Bipolar, Depression, PTSD Smoking Status: Never smoker Past Alcohol Use History: None Reported Past Drug Use History: Marijuana - Past Family History Father History Unknown: Yes Family Medical History: Diabetes Mellitus Mother Family Medical History: Cancer, CVA/TIA, Diabetes Mellitus, Myocardial I nfarction ([place]) Additional Family Medical History / Comment(s): Mother has had 5 CVAs, 3 MIs and UTERINE CANCER General Exam Limitations: no limitations General appearance: alert, in no apparent distress Eye exam: Present: normal appearance, PERRL, EOMI. Absent: scleral icterus, conjunctival injection, periorbital swelling Neck exam: Present: normal inspection. Absent: tenderness, meningismus, lymphadenopathy Respiratory exam: Present: normal lung sounds bilaterally, chest wall tenderness (anterior with ROM and mild with palpation). Absent: respiratory distress, wheezes, rales, rhonchi, stridor Cardiovascular Exam: Present: regular rate, normal rhythm, normal heart sounds. Absent: systolic murmur, diastolic murmur, rubs, gallop, clicks GI/Abdominal exam: Present: soft, normal bowel sounds, other (post operative wound, left lower quadrant no signs of erythema or purulence or warmth to touch). Absent: distended, tenderness, guarding, rebound, rigid Extremities exam: Present: normal inspection, full ROM, normal capillary refill. Absent: tenderness, pedal edema, joint swelling, calf tenderness Back exam: Present: normal inspection Skin exam: Present: warm, dry, intact, normal color. Absent: rash Course Vital Signs 02/01/24 02/01/24 20:10 22:48 Temperature 97.7 F Pulse Rate 114 H 105 H Respiratory 24 18 Rate Blood Pressure 157/105 151/98 O2 Sat by Pulse 100 96 Oximetry Medical Decision Making - Medical Decision Making Was pt. sent in by a medical professional or institution (, PA, [employer]BER[employer] SALES AGENT, urgent care, hospital, or long term...) When possible be specific @ -No Did you speak to anyone other than the patient for history (EMS, parent, family, police, friend...)? What history was obtained from this source @ -No Did you review nursing and triage notes (agree or disagree)? Why? @ -I reviewed and agree with nursing and triage notes Were old charts reviewed (outside hosp., previous admission, EMS record, old EKG, old radiological studies, urgent care reports/EKG's, long term records)? Report findings @ -No old charts were reviewed Differential Diagnosis (chest pain, altered mental status, abdominal pain women, abdominal pain men, vaginal bleeding, weakness, fever, dyspnea, syncope, headache, dizziness, GI bleed, back pain, seizure, CVA, palpatations, mental health, musculoskeletal)? @ -Differential Chest Pain: Stable Angina, Unstable Angina, STEMI, NSTEMI Aortic Dissection, Pneumothorax, Musculoskeletal, Esophageal Spasm GERD, Cholecystitis, Pancreatitis, Zoster, this is not meant to be an all-inclusive list. EKG interpreted by me (3pts min.). @ -completed at 2213 sinus rhythm with a ventricular rate of 90, parable 165, QRS 84, QTc 376. No acute signs of ischemia. X-rays interpreted by me (1pt min.). @ -None done CT interpreted by me (1pt min.). @ -None done U/S interpreted by me (1pt. min.). @ -None done What testing was considered but not performed or refused? (CT, X-rays, U/S, labs)? Why? @ -None What meds were considered but not given or refused? Why? @ -None Did you discuss the management of the patient with other professionals (professionals i.e. , PA, [employer] SALES AGENT, lab, RT, psych nurse, home health care social worker, rfid specialist, teacher, fire management officer, case finishing machine adjuster)? Give summary @ -No Was smoking cessation discussed for >3mins.? @ -No Was critical care preformed (if so, how long)? @ -No Were there social determinants of health that impacted care today? How? (Homelessness, low income, unemployed, alcoholism, drug addiction, transportation, low edu. Level, literacy, decrease access to med. care, long-term, rehab)? @ -No Was there de-escalation of care discussed even if they declined (Discuss DNR or withdrawal of care, Hospice)? DNR status @ -No What co-morbidities impacted this encounter? (DM, HTN, Smoking, COPD, CAD, Cancer, CVA, ARF, Chemo, Hep., AIDS, mental health diagnosis, sleep apnea, morbid obesity)? @ -None Was patient admitted / discharged? Hospital course, mention meds given and route, prescriptions, significant lab abnormalities, going to OR and other pertinent info. @ -Discharge. 38-year-old female with chest pain. EKG reveals a sinus rhythm. Patient is denying heart palpitations, chest pressure, difficulty breathing, lightheadedness or dizziness. Patient's symptoms are exacerbated with range of motion and mild with palpation. Patient's symptoms are very low likelihood ACS related. Was offered chest x-ray but however is declined this time saying that she believes that this is muscular related. Patient is provided with pain medications and on reevaluation states that she is feeling much better. Patient stable for discharge at this time. Discussed with Dr. Brown Undiagnosed new problem with uncertain prognosis? @ -No Drug Therapy requiring intensive monitoring for toxicity (Heparin, Nitro, Insulin, Cardizem)? @ -No Were any procedures done? @ -No Diagnosis/symptom? @ -Noncardiac chest pain Acute, or Chronic, or Acute on Chronic? @ -Acute Uncomplicated (without systemic symptoms) or Complicated (systemic symptoms)? @ -uncomplicated Side effects of treatment? @ -No Exacerbation, Progression, or Severe Exacerbation? @ -No Poses a threat to life or bodily function? How? (Chest pain, [place], [place], pneumonia, PE, COPD, DKA, ARF, appy, cholecystitis, CVA, Diverticulitis, Homicidal, Suicidal, threat to staff... and all critical care pts) @ -No Disposition Clinical Impression: Non-cardiac chest pain Disposition: HOME SELF-CARE Condition: Good Is patient prescribed a controlled substance at d/c from ED?: No Referrals: None,Stated [Primary Care Provider] - 1-2 days
[2024-02-01] MEDS: HYDROmorphone 1 MG/ML 1 ML SYRINGE IM STA (21:34)
[2024-02-01 22:49] VITALS: BP 151/98; PULSE 105; RESP 18
[2024-02-01] MEDS: diphenhydrAMINE 50 MG/ML 1 ML VIAL IM STA (23:06)
[2024-02-01] MEDS: KETOROLAC 15 MG/ML 1 ML VIAL IM STA (23:07)
== END 2024-02-01 23:07 | disposition home or self-care (01) ==
LOC: EC 20:08
DX: G89.18 Other acute postprocedural pain (principal); R07.89 Other chest pain; R10.32 Left lower quadrant pain; Z88.6 Allergy status to analgesic agent; Z91.013 Allergy to seafood; Z88.1 Allergy status to other antibiotic agents; Z88.2 Allergy status to sulfonamides; Z88.8 Allergy status to other drugs, medicaments and biological substances
CPT/HCPCS: 93005; 99283; 96372 ×3; J1200; J1171; J1885

== ENCOUNTER 2024-02-10 22:39 | Emergency (ER) | payer MEDICARE, OTHER ==
[2024-02-10 23:12] VITALS: BP 125/84; PULSE 110; TEMP 98
[2024-02-10 23:34] VITALS: RESP 18
[2024-02-10] MEDS: ACETAMINOPHEN TAB 500 MG TAB PO STA (23:39)
[2024-02-10] MEDS: HYDROmorphone 1 MG/ML 1 ML SYRINGE IM STA (23:40)
--- NOTE | 2024-02-10 23:54 | ED ---
General Adult HPI - General Chief complaint: Upper Respiratory Infection Stated complaint: Headache, Sore Throat, Nausea Time Seen by Provider: 02/10/24 22:48 Source: patient, RN notes reviewed, old records reviewed Mode of arrival: ambulatory Limitations: no limitations - History of Present Illness Initial comments: 38-year-old female presenting for evaluation of cough, nasal congestion, fever and sore throat. Patient states her symptoms have been present for the past 2 days. She does also report a mild headache. Unknown sick contacts. Cough is nonproductive. Patient is a non-smoker. - Related Data Home Medications Medication Instructions Recorded Confirmed Medroxyprogesterone Acetate 150 mg IM Q84D 11/22/13 10/07/20 [Depo-Provera] rOPINIRole HCL [Requip] 1 mg PO BID@0900,1200 11/22/13 10/07/20 Pentosan Polysulfate Sodium 100 mg PO DAILY 02/10/15 10/07/20 [Elmiron] HYDROcodone/APAP 7.5-325MG [[place] 1 tab PO BID 07/20/16 10/07/20 7.5-325] Paliperidone IM Pt Own [Invega 117 mg IM Q28D 07/20/16 10/07/20 Sustenna] amantadine HCL [Symmetrel] 100 mg PO BID 11/21/16 10/07/20 Albuterol Sulfate [Proair Hfa] 2 puff INHALATION RT-QID PRN 01/13/18 10/07/20 Butalb/Acetaminophen/Caffeine 1 tab PO Q8H PRN 01/13/18 10/07/20 [Fioricet 50-325-40] Fluticasone Propionate [Flovent 1 puff INHALATION RT-BID 01/13/18 10/07/20 Hfa 110 mcg] gemfibroziL [Lopid] 600 mg PO BID 01/13/18 10/07/20 Gabapentin [Neurontin] 300 mg PO TID 03/11/18 10/07/20 Gabapentin [Neurontin] 600 mg PO TID 09/16/19 10/07/20 Omeprazole [PriLOSEC] 40 mg PO DAILY 09/16/19 10/07/20 rOPINIRole HCL [Requip] 2 mg PO HS 09/16/19 10/07/20 traZODone HCL 300 mg PO HS 09/16/19 10/07/20 hydrOXYzine pamoate 25 mg PO BID 04/13/20 10/07/20 Cyclobenzaprine [Flexeril] 10 mg PO TID PRN 08/16/20 10/07/20 Fentanyl/Bupivcaine Pain Pump 1 dose INTRATHECA CONTINUOUS 08/16/20 10/07/20 Ibuprofen [Motrin] 600 mg PO TID PRN 10/07/20 10/07/20 diphenhydrAMINE [Benadryl] 50 mg PO DAILY PRN 10/07/20 10/07/20 Previous Rx's Medication Instructions Recorded Erythromycin Ophth Oint [Romycin 1 applic RIGHT EYE QID #1 bottle 10/03/20 Ophth Oint] Ondansetron Odt [Zofran Odt] 4 mg PO Q8HR PRN #14 tab 10/16/20 Ondansetron Odt [Zofran Odt] 4 mg PO Q8HR PRN #10 tab 06/21/21 predniSONE [Deltasone] 20 mg PO BID #10 tab 09/08/21 Cephalexin [Keflex] 500 mg PO Q8HR 7 Days #21 cap 11/25/21 Fluconazole [Diflucan] 150 mg PO ONCE #1 tab 11/25/21 Amoxic-Pot Clav 875-125Mg 1 tab PO Q12HR 7 Days #14 tab 05/02/23 [Augmentin 875-125] Ondansetron Odt [Zofran Odt] 8 mg PO Q8HR #9 tab 10/14/23 Ketorolac [Toradol] 10 mg PO Q8HR #15 tab 12/20/23 diphenhydrAMINE [Benadryl] 50 mg PO QID PRN #20 capsule 12/20/23 clindamycin HCL 300 mg PO QID #40 cap 12/29/23 Cephalexin [Keflex] 500 mg PO Q6HR 7 Days #28 cap 01/21/24 Albuterol Nebulized [Ventolin 2.5 mg INHALATION Q4H #75 ml 02/10/24 Nebulized] methylPREDNISolone Dose Pack 4 mg PO DIRECTED #21 packet 02/10/24 [Medrol Dose Pack] Allergies Allergy/AdvReac Type Severity Reaction Status Date / Time azithromycin Allergy Rash/Hives Verified 02/10/24 22:45 [From Zithromax Z-Mehrdad] cimetidine [From Tagamet] Allergy Rash/Hives Verified 02/10/24 22:45 codeine Allergy Nausea & Verified 02/10/24 22:45 Vomiting ether [Ether] Allergy Anaphylaxis Verified 02/10/24 22:45 Fish Containing Products Allergy Anaphylaxis Verified 02/10/24 22:45 [Fish] ibuprofen [From Motrin] Allergy Rash/Hives Verified 02/10/24 22:45 morphine Allergy Unknown Verified 02/10/24 22:45 NSAIDS (Non-Steroidal Allergy Rash/Hives Verified 02/10/24 22:45 Anti-Inflamma ziprasidone HCl [From Geodon] Allergy Extrapyramidal Verified 02/10/24 22:45 Symptoms ciprofloxacin [From Cipro] AdvReac Rash/Hives Verified 02/10/24 22:45 fluphenazine HCl AdvReac Extrapyramidal Verified 02/10/24 22:45 [From Prolixin] Symptoms haloperidol [From Haldol] AdvReac Extrapyramidal Verified 02/10/24 22:45 Symptoms Sulfa (Sulfonamide AdvReac Nausea & Verified 02/10/24 22:45 Antibiotics) Vomiting Review of Systems ROS Statement: Those systems with pertinent positive or pertinent negative responses have been documented in the HPI. ROS Other: All systems not noted in ROS Statement are negative. Past Medical History Past Medical History: Asthma, GERD/Reflux, Hyperlipidemia, Musculoskeletal Disorder, Neurologic Disorder, Osteoarthritis (OA), Seizure Disorder Additional Past Medical History / Comment(s): RSD-DERIC FEET, INTERSTITIAL CYSTITIS, BRONCHITIS, HEMORRHOIDS,MIGRAINES, INSOMNIA. VERTIGO, last seizure 4 years ago, complex regional pain syndrome, RLS. History of Any Multi-Drug Resistant Organisms: MRSA Date of last positivie culture/infection: 04/20/15 MDRO Source:: Left Axilla Past Surgical History: Adenoidectomy, Back Surgery, Cholecystectomy, Orthopedic Surgery, Tonsillectomy Additional Past Surgical History / Comment(s): bilateral foot surgery d/t rsd, numerous pain clinic procedures, nerve stimulator in back to tx RSD placed in Nov 11 2015, pain pump placement, replacement of stimulator 06/2021, replacement of pain pump. Past Anesthesia/Blood Transfusion Reactions: Previous Problems w/ Anesthesia Additional Past Anesthesia/Blood Transfusion Reaction / Comment(s): Pt recieved blood when she was 2 yrs old after tonsillectomy. WHEN BABY HEART STOPPED TWICE- PT STATED SHE WAS ALLERGIC TO ETHER. Past Psychological History: Anxiety, Bipolar, Depression, PTSD Smoking Status: Never smoker Past Alcohol Use History: None Reported Past Drug Use History: Marijuana - Past Family History Father History Unknown: Yes Family Medical History: Diabetes Mellitus Mother Family Medical History: Cancer, CVA/TIA, Diabetes Mellitus, Myocardial Infarction ([place]) Additional Family Medical History / Comment(s): Mother has had 5 CVAs, 3 MIs and UTERINE CANCER General Exam Limitations: no limitations General appearance: alert, in no apparent distress Head exam: Present: atraumatic, normocephalic Eye exam: Present: normal appearance, PERRL ENT exam: Absent: normal oropharynx (Pharyngeal erythema without swelling or exudate) Respiratory exam: Present: normal lung sounds bilaterally. Absent: respiratory distress, wheezes, rales Cardiovascular Exam: Present: regular rate, normal rhythm GI/Abdominal exam: Present: soft. Absent: distended Neurological exam: Present: alert, oriented X3, CN II-XII intact. Absent: motor sensory deficit Psychiatric exam: Present: normal affect, normal mood Skin exam: Present: warm, dry, intact Course Vital Signs 02/10/24 02/10/24 22:40 23:25 Temperature 98 F Pulse Rate 110 H Respiratory 20 18 Rate Blood Pressure 125/84 O2 Sat by Pulse 97 Oximetry Medical Decision Making - Medical Decision Making Was pt. sent in by a medical professional or institution (CALLUM Estes, WEB COORDINATOR, urgent care, hospital, or alf...) When possible be specific @ -No Did you speak to anyone other than the patient for history (EMS, parent, family, police, friend...)? What history was obtained from this source @ -No Did you review nursing and triage notes (agree or disagree)? Why? @ -I reviewed and agree with nursing and triage notes Were old charts reviewed (outside hosp., previous admission, EMS record, old EKG, old radiological studies, urgent care reports/EKG's, alf records)? Report findings @ -No old charts were reviewed Differential Diagnosis upper respiratory infection, strep pharyngitis, viral infection, pneumonia, asthma EKG interpreted by me (3pts min.). @ -As above X-rays interpreted by me (1pt min.). @ -Chest x-ray is clear, no consolidated pneumonia CT interpreted by me (1pt min.). @ -None done U/S interpreted by me (1pt. min.). @ -None done What testing was considered but not performed or refused? (CT, X-rays, U/S, labs)? Why? @ -None What meds were considered but not given or refused? Why? @ -None Did you discuss the management of the patient with other professionals (professionals i.e. , PA, WEB COORDINATOR, lab, RT, psych nurse, social work manager, numerical control machine tool operator, teacher, service officer, continuous pillowcase cutter)? Give summary @ -No Was smoking cessation discussed for >3mins.? @ -No Was critical care preformed (if so, how long)? @ -No Were there social determinants of health that impacted care today? How? (Homelessness, low income, unemployed, alcoholism, drug addiction, transportation, low edu. Level, literacy, decrease access to med. care, fci, rehab)? @ -No Was there de-escalation of care discussed even if they declined (Discuss DNR or withdrawal of care, Hospice)? DNR status @ -No What co-morbidities impacted this encounter? (DM, HTN, Smoking, COPD, CAD, Cancer, CVA, ARF, Chemo, Hep., AIDS, mental health diagnosis, sleep apnea, morbid obesity)? @ -Chronic pain, asthma Was patient admitted / discharged? Hospital course, mention meds given and route, prescriptions, significant lab abnormalities, going to OR and other pertinent info. @ -38-year-old female with upper respiratory symptoms likely viral infection. Viral panel is negative. Chest x-ray is clear without focal pneumonia. P atient's albuterol was refilled and she is given a Medrol Dosepak. She will follow closely with her primary care provider and return as needed. Undiagnosed new problem with uncertain prognosis? @ -No Drug Therapy requiring intensive monitoring for toxicity (Heparin, Nitro, Insulin, Cardizem)? @ -No Were any procedures done? @ -No Diagnosis/symptom? @Acute bronchitis, upper respiratory infection Acute, or Chronic, or Acute on Chronic? @ -Acute Uncomplicated (without systemic symptoms) or Complicated (systemic symptoms)? @ -Default Side effects of treatment? @ -No Exacerbation, Progression, or Severe Exacerbation? @ -No Poses a threat to life or bodily function? How? (Chest pain, [place], [place], pneumonia, PE, COPD, DKA, ARF, appy, cholecystitis, CVA, Diverticulitis, Homicidal, Suicidal, threat to staff... and all critical care pts) @ -Low risk at this time - Lab Data Lab Results 02/10/24 02/10/24 Range/Units 22:48 22:48 Influenza Type A (PCR) Not Detected (Not Detectd) Influenza Type B (PCR) Not Detected (Not Detectd) RSV (PCR) Not Detected (Not Detectd) SARS-CoV-2 (PCR) Not Detected (Not Detectd) Group A Strep (PCR) NOT DETECTED (Not Detectd) Disposition Clinical Impression: Bronchitis, Acute upper respiratory infection Disposition: HOME SELF-CARE Condition: Stable Instructions (If sedation given, give patient instructions): Upper Respiratory Infection (ED), Acute Bronchitis (ED) Prescriptions: methylPREDNISolone Dose Pack [Medrol Dose Pack] 4 mg PO DIRECTED #21 packet Albuterol Nebulized [Ventolin Nebulized] 2.5 mg INHALATION Q4H #75 ml Is patient prescribed a controlled substance at d/c from ED?: No Referrals: None,Stated [Primary Care Provider] - 1-2 days Time of Disposition: 23:53
--- NOTE | 2024-02-11 01:46 | XR ---
EXAM: XR Chest, 2 Views CLINICAL HISTORY: ITS.REASON XR Reason: cough TECHNIQUE: Frontal and lateral views of the chest. COMPARISON: Chest radiograph on 05/21/2023 FINDINGS: Hardware: Epidural spinal stimulator partially seen. Lungs/pleura: Normal. No focal consolidation. No pleural effusion or pneumothorax. Heart/mediastinum: Normal. No cardiomegaly. Soft tissues: Unremarkable. Bones: No acute fracture. Upper abdomen: Cholecystectomy clips in the right upper quadrant. IMPRESSION: No acute disease identified.
== END 2024-02-11 | disposition home or self-care (01) ==
LOC: EC 22:39
DX: J40 Bronchitis, not specified as acute or chronic (principal); J06.9 Acute upper respiratory infection, unspecified; Z88.1 Allergy status to other antibiotic agents; Z88.5 Allergy status to narcotic agent; Z91.013 Allergy to seafood; Z88.6 Allergy status to analgesic agent; Z88.2 Allergy status to sulfonamides; Z88.8 Allergy status to other drugs, medicaments and biological substances
CPT/HCPCS: 87651; 87636; 71046; 99284; 96372; J1171

== ENCOUNTER 2024-02-15 19:58 | Emergency (ER) | payer MEDICARE, OTHER ==
[2024-02-15] MEDS: diphenhydrAMINE 50 MG/ML 1 ML VIAL IM STA (20:57)
[2024-02-15] MEDS: HYDROmorphone 1 MG/ML 1 ML SYRINGE IM STA (21:04)
[2024-02-15] MEDS: KETOROLAC 15 MG/ML 1 ML VIAL IM STA (21:07)
--- NOTE | 2024-02-15 21:28 | ED ---
General Adult HPI - General Chief complaint: Recheck/Abnormal Lab/Rx Stated complaint: post op issue Time Seen by Provider: 02/15/24 20:38 Source: patient Mode of arrival: ambulatory Limitations: no limitations - History of Present Illness Initial comments: 38-year-old female presenting with chief complaint of pain at her incision site. Patient had her pain pump replaced back in November and has had some complications with incision healing. She currently is wearing an abdominal binder. States that earlier today she turned over in bed and felt her incision open. There is no uncontrolled bleeding at this time. Patient is complaining that it stings over the area. No intra-abdominal pain. No fever. No redness or swelling. - Related Data Home Medications Medication Instructions Recorded Confirmed Medroxyprogesterone Acetate 150 mg IM Q84D 11/22/13 10/07/20 [Depo-Provera] rOPINIRole HCL [Requip] 1 mg PO BID@0900,1200 11/22/13 10/07/20 Pentosan Polysulfate Sodium 100 mg PO DAILY 02/10/15 10/07/20 [Elmiron] HYDROcodone/APAP 7.5-325MG [[place] 1 tab PO BID 07/20/16 10/07/20 7.5-325] Paliperidone IM Pt Own [Invega 117 mg IM Q28D 07/20/16 10/07/20 Sustenna] amantadine HCL [Symmetrel] 100 mg PO BID 11/21/16 10/07/20 Albuterol Sulfate [Proair Hfa] 2 puff INHALATION RT-QID PRN 01/13/18 10/07/20 Butalb/Acetaminophen/Caffeine 1 tab PO Q8H PRN 01/13/18 10/07/20 [Fioricet 50-325-40] Fluticasone Propionate [Flovent 1 puff INHALATION RT-BID 01/13/18 10/07/20 Hfa 110 mcg] gemfibroziL [Lopid] 600 mg PO BID 01/13/18 10/07/20 Gabapentin [Neurontin] 300 mg PO TID 03/11/18 10/07/20 Gabapentin [Neurontin] 600 mg PO TID 09/16/19 10/07/20 Omeprazole [PriLOSEC] 40 mg PO DAILY 09/16/19 10/07/20 rOPINIRole HCL [Requip] 2 mg PO HS 09/16/19 10/07/20 traZODone HCL 300 mg PO HS 09/16/19 10/07/20 hydrOXYzine pamoate 25 mg PO BID 04/13/20 10/07/20 Cyclobenzaprine [Flexeril] 10 mg PO TID PRN 08/16/20 10/07/20 Fentanyl/Bupivcaine Pain Pump 1 dose INTRATHECA CONTINUOUS 08/16/20 10/07/20 Ibuprofen [Motrin] 600 mg PO TID PRN 10/07/20 10/07/20 diphenhydrAMINE [Benadryl] 50 mg PO DAILY PRN 10/07/20 10/07/20 Previous Rx's Medication Instructions Recorded Erythromycin Ophth Oint [Romycin 1 applic RIGHT EYE QID #1 bottle 10/03/20 Ophth Oint] Ondansetron Odt [Zofran Odt] 4 mg PO Q8HR PRN #14 tab 10/16/20 Ondansetron Odt [Zofran Odt] 4 mg PO Q8HR PRN #10 tab 06/21/21 predniSONE [Deltasone] 20 mg PO BID #10 tab 09/08/21 Cephalexin [Keflex] 500 mg PO Q8HR 7 Days #21 cap 11/25/21 Fluconazole [Diflucan] 150 mg PO ONCE #1 tab 11/25/21 Amoxic-Pot Clav 875-125Mg 1 tab PO Q12HR 7 Days #14 tab 05/02/23 [Augmentin 875-125] Ondansetron Odt [Zofran Odt] 8 mg PO Q8HR #9 tab 10/14/23 Ketorolac [Toradol] 10 mg PO Q8HR #15 tab 12/20/23 diphenhydrAMINE [Benadryl] 50 mg PO QID PRN #20 capsule 12/20/23 clindamycin HCL 300 mg PO QID #40 cap 12/29/23 Cephalexin [Keflex] 500 mg PO Q6HR 7 Days #28 cap 01/21/24 Albuterol Nebulized [Ventolin 2.5 mg INHALATION Q4H #75 ml 02/10/24 Nebulized] methylPREDNISolone Dose Pack 4 mg PO DIRECTED #21 packet 02/10/24 [Medrol Dose Pack] Allergies Allergy/AdvReac Type Severity Reaction Status Date / Time azithromycin Allergy Rash/Hives Verified 02/15/24 20:11 [From Zithromax Z-Mehrdad] cimetidine [From Tagamet] Allergy Rash/Hives Verified 02/15/24 20:11 codeine Allergy Nausea & Verified 02/15/24 20:11 Vomiting ether [Ether] Allergy Anaphylaxis Verified 02/15/24 20:11 Fish Containing Products Allergy Anaphylaxis Verified 02/15/24 20:11 [Fish] ibuprofen [From Motrin] Allergy Rash/Hives Verified 02/15/24 20:11 morphine Allergy Unknown Verified 02/15/24 20:11 NSAIDS (Non-Steroidal Allergy Rash/Hives Verified 02/15/24 20:11 Anti-Inflamma ziprasidone HCl [From Geodon] Allergy Extrapyramidal Verified 02/15/24 20:11 Symptoms ciprofloxacin [From Cipro] AdvReac Rash/Hives Verified 02/15/24 20:11 fluphenazine HCl AdvReac Extrapyramidal Verified 02/15/24 20:11 [From Prolixin] Symptoms haloperidol [From Haldol] AdvReac Extrapyramidal Verified 02/15/24 20:11 Symptoms Sulfa (Sulfonamide AdvReac Nausea & Verified 02/15/24 20:11 Antibiotics) Vomiting Review of Systems ROS Statement: Those systems with pertinent positive or pertinent negative responses have been documented in the HPI. ROS Other: All systems not noted in ROS Statement are negative. Past Medical History Past Medical History: Asthma, GERD/Reflux, Hyperlipidemia, Musculoskeletal Disorder, Neurologic Disorder, Osteoarthritis (OA), Seizure Disorder Additional Past Medical History / Comment(s): RSD-DERIC FEET, INTERSTITIAL CYSTIT IS, BRONCHITIS, HEMORRHOIDS,MIGRAINES, INSOMNIA. VERTIGO, last seizure 4 years ago, complex regional pain syndrome, RLS. History of Any Multi-Drug Resistant Organisms: MRSA Date of last positivie culture/infection: 04/20/15 MDRO Source:: Left Axilla Past Surgical History: Adenoidectomy, Back Surgery, Cholecystectomy, Orthopedic Surgery, Tonsillectomy Additional Past Surgical History / Comment(s): bilateral foot surgery d/t rsd, numerous pain clinic procedures, nerve stimulator in back to tx RSD placed in Nov 11 2015, pain pump placement, replacement of stimulator 06/2021, replacement of pain pump. Past Anesthesia/Blood Transfusion Reactions: Previous Problems w/ Anesthesia Additional Past Anesthesia/Blood Transfusion Reaction / Comment(s): Pt recieved blood when she was 2 yrs old after tonsillectomy. WHEN BABY HEART STOPPED TWICE- PT STATED SHE WAS ALLERGIC TO ETHER. Past Psychological History: Anxiety, Bipolar, Depression, PTSD Smoking Status: Never smoker Past Alcohol Use History: None Reported Past Drug Use History: Marijuana - Past Family History Father History Unknown: Yes Family Medical History: Diabetes Mellitus Mother Family Medical History: Cancer, CVA/TIA, Diabetes Mellitus, Myocardial Infarction ([place]) Additional Family Medical History / Comment(s): Mother has had 5 CVAs, 3 MIs and UTERINE CANCER General Exam Limitations: no limitations General appearance: alert, in no apparent distress Head exam: Present: atraumatic, normocephalic, normal inspection Eye exam: Present: normal appearance, EOMI Neck exam: Present: normal inspection. Absent: meningismus Respiratory exam: Absent: respiratory distress Neurological exam: Present: alert, oriented X3 Psychiatric exam: Present: normal affect, normal mood Skin exam: Present: other (There is a very small amount of superficial dehiscence to her abdominal incision, less than 1 cm. There is no redness swelling or discharge. No bleeding. No warmth.) Course Vital Signs 02/15/24 02/15/24 20:11 22:39 Temperature 98.5 F 98.4 F Pulse Rate 104 H 96 Respiratory 20 18 Rate Blood Pressure 120/56 110/78 O2 Sat by Pulse 98 100 Oximetry Medical Decision Making - Medical Decision Making Was pt. sent in by a medical professional or institution (, PA, JEWELRY DEPARTMENT SUPERVISOR, urgent care, hospital, or [facility]...) When possible be specific @ -No Did you speak to anyone other than the patient for history (EMS, parent, family, police, friend...)? What history was obtained from this source @ -No Did you review nursing and triage notes (agree or disagree)? Why? @ -I reviewed and agree with nursing and triage notes Were old charts reviewed (outside hosp., previous admission, EMS record, old EKG, old radiological studies, urgent care reports/EKG's, [facility] records)? Report findings @ -No old charts were reviewed Differential Diagnosis (chest pain, altered mental status, abdominal pain women, abdominal pain men, vaginal bleeding, weakness, fever, dyspnea, syncope, headache, dizziness, GI bleed, back pain, seizure, CVA, palpatations, mental health, musculoskeletal)? @ -Differential includes wound dehiscence, infection, this is not an all- inclusive list EKG interpreted by me (3pts min.). @ -As above X-rays interpreted by me (1pt min.). @ -None done CT interpreted by me (1pt min.). @ -None done U/S interpreted by me (1pt. min.). @ -None done What testing was considered but not performed or refused? (CT, X-rays, U/S, labs)? Why? @ -None What meds were considered but not given or refused? Why? @ -None Did you discuss the management of the patient with other professionals (professionals i.e. , PA, JEWELRY DEPARTMENT SUPERVISOR, lab, RT, psych nurse, social media manager, insurance sales representative, teacher, correction officer reformatory, rehabilitation case coordinator)? Give summary @ -No Was smoking cessation discussed for >3mins.? @ -No Was critical care preformed (if so, how long)? @ -No Were there social determinants of health that impacted care today? How? (Homelessness, low income, unemployed, alcoholism, drug addiction, transportation, low edu. Level, literacy, decrease access to med. care, senior living, rehab)? @ -No Was there de-escalation of care discussed even if they declined (Discuss DNR or withdrawal of care, Hospice)? DNR status @ -No What co-morbidities impacted this encounter? (DM, HTN, Smoking, COPD, CAD, Cancer, CVA, ARF, Chemo, Hep., AIDS, mental health diagnosis, sleep apnea, morbid obesity)? @ -None Was patient admitted / discharged? Hospital course, mention meds given and route, prescriptions, significant lab abnormalities, going to OR and other pertinent info. @ -38-year-old female presenting with chief complaint of pain over her incision site. She had her pain pump replaced back in November by her neurologist. Today she rolled over and felt a tear in her incision. She has a less than 1 cm superficial area of dehiscence. There is no active bleeding. There is no redn ess swelling or discharge. No fevers or chills. Patient is given medication for her pain and the wound is dressed. She will follow-up with her surgeon. Discharged. Follow-up with PCP. Report back to ER with any new or worsening symptoms. Discussed return parameters and answered all questions. Patient conveyed verbal understanding and agreed to the plan. I discussed this case in detail with my attending Dr. Mario Undiagnosed new problem with uncertain prognosis? @ -No Drug Therapy requiring intensive monitoring for toxicity (Heparin, Nitro, Insulin, Cardizem)? @ -No Were any procedures done? @ -No Diagnosis/symptom? @ -Wound dehiscence Acute, or Chronic, or Acute on Chronic? @ -Acute Uncomplicated (without systemic symptoms) or Complicated (systemic symptoms)? @ -uncomplicated Side effects of treatment? @ -No Exacerbation, Progression, or Severe Exacerbation? @ -No Poses a threat to life or bodily function? How? (Chest pain, [place], [place], pneumonia, PE, COPD, DKA, ARF, appy, cholecystitis, CVA, Diverticulitis, Homicidal, Suicidal, threat to staff... and all critical care pts) @ -Low likelihood Disposition Clinical Impression: Wound dehiscence Disposition: HOME SELF-CARE Condition: Good Instructions (If sedation given, give patient instructions): Wound Dehiscence (ED) Additional Instructions: Follow-up with your surgeon. Report back to ER with any new or worsening symptoms. Is patient prescribed a controlled substance at d/c from ED?: No Referrals: None,Stated [Primary Care Provider] - 1-2 days Casper Shannon MD [Medical Doctor] - 1-2 days Time of Disposition: 21:45
[2024-02-15] MEDS: ACETAMINOPHEN TAB 325 MG TAB PO STA (22:10)
[2024-02-15] MEDS: HYDROmorphone 0.5 MG/0.5 ML SYRINGE IM STA (22:34)
[2024-02-15 22:41] VITALS: BP 110/78; PULSE 96; RESP 18; TEMP 98.4
== END 2024-02-15 22:41 | disposition home or self-care (01) ==
LOC: EC 19:58
DX: T81.31XA Disruption of external operation (surgical) wound, not elsewhere classified, initial encounter (principal); Z88.1 Allergy status to other antibiotic agents; Z88.8 Allergy status to other drugs, medicaments and biological substances; Z88.5 Allergy status to narcotic agent; Z91.013 Allergy to seafood; Z88.6 Allergy status to analgesic agent; Z88.2 Allergy status to sulfonamides
CPT/HCPCS: 99283; 96372 ×4; J1200; J1171 ×2; J1885

== ENCOUNTER 2024-02-19 23:39 | Emergency (ER) | payer MEDICARE, OTHER ==
[2024-02-19 23:44] VITALS: RESP 18
--- NOTE | 2024-02-20 00:04 | ED ---
Nausea/Vomiting/Diarrhea HPI - General Chief complaint: Nausea/Vomiting/Diarrhea Stated complaint: V/D Time Seen by Provider: 02/20/24 00:01 Source: EMS, RN notes reviewed Mode of arrival: EMS Limitations: no limitations - History of Present Illness Initial comments: 38-year-old female with history of complex regional pain syndrome presenting with postop pain. Patient states she had pain pump placed 2 months ago. States "her body rejected the pump" and had the pump removed a month ago. Last week, she felt a tear at her incision site when she rolled over in bed and has had superficial stinging pain since. She was seen 4 days ago for the same issue and discharged with instruction to follow-up with her surgeon. Also states she has had chronic nausea/vomiting due to pain. Denies fever, redness, or drainage at the incision site. - Related Data Home Medications Medication Instructions Recorded Confirmed Medroxyprogesterone Acetate 150 mg IM Q84D 11/22/13 10/07/20 [Depo-Provera] rOPINIRole HCL [Requip] 1 mg PO BID@0900,1200 11/22/13 10/07/20 Pentosan Polysulfate Sodium 100 mg PO DAILY 02/10/15 10/07/20 [Elmiron] HYDROcodone/APAP 7.5-325MG [[place] 1 tab PO BID 07/20/16 10/07/20 7.5-325] Paliperidone IM Pt Own [Invega 117 mg IM Q28D 07/20/16 10/07/20 Sustenna] amantadine HCL [Symmetrel] 100 mg PO BID 11/21/16 10/07/20 Albuterol Sulfate [Proair Hfa] 2 puff INHALATION RT-QID PRN 01/13/18 10/07/20 Butalb/Acetaminophen/Caffeine 1 tab PO Q8H PRN 01/13/18 10/07/20 [Fioricet 50-325-40] Fluticasone Propionate [Flovent 1 puff INHALATION RT-BID 01/13/18 10/07/20 Hfa 110 mcg] gemfibroziL [Lopid] 600 mg PO BID 01/13/18 10/07/20 Gabapentin [Neurontin] 300 mg PO TID 03/11/18 10/07/20 Gabapentin [Neurontin] 600 mg PO TID 09/16/19 10/07/20 Omeprazole [PriLOSEC] 40 mg PO DAILY 09/16/19 10/07/20 rOPINIRole HCL [Requip] 2 mg PO HS 09/16/19 10/07/20 traZODone HCL 300 mg PO HS 09/16/19 10/07/20 hydrOXYzine pamoate 25 mg PO BID 04/13/20 10/07/20 Cyclobenzaprine [Flexeril] 10 mg PO TID PRN 08/16/20 10/07/20 Fentanyl/Bupivcaine Pain Pump 1 dose INTRATHECA CONTINUOUS 08/16/20 10/07/20 Ibuprofen [Motrin] 600 mg PO TID PRN 10/07/20 10/07/20 diphenhydrAMINE [Benadryl] 50 mg PO DAILY PRN 10/07/20 10/07/20 Previous Rx's Medication Instructions Recorded Erythromycin Ophth Oint [Romycin 1 applic RIGHT EYE QID #1 bottle 10/03/20 Ophth Oint] Ondansetron Odt [Zofran Odt] 4 mg PO Q8HR PRN #14 tab 10/16/20 Ondansetron Odt [Zofran Odt] 4 mg PO Q8HR PRN #10 tab 06/21/21 predniSONE [Deltasone] 20 mg PO BID #10 tab 09/08/21 Cephalexin [Keflex] 500 mg PO Q8HR 7 Days #21 cap 11/25/21 Fluconazole [Diflucan] 150 mg PO ONCE #1 tab 11/25/21 Amoxic-Pot Clav 875-125Mg 1 tab PO Q12HR 7 Days #14 tab 05/02/23 [Augmentin 875-125] Ondansetron Odt [Zofran Odt] 8 mg PO Q8HR #9 tab 10/14/23 Ketorolac [Toradol] 10 mg PO Q8HR #15 tab 12/20/23 diphenhydrAMINE [Benadryl] 50 mg PO QID PRN #20 capsule 12/20/23 clindamycin HCL 300 mg PO QID #40 cap 12/29/23 Cephalexin [Keflex] 500 mg PO Q6HR 7 Days #28 cap 01/21/24 Albuterol Nebulized [Ventolin 2.5 mg INHALATION Q4H #75 ml 02/10/24 Nebulized] methylPREDNISolone Dose Pack 4 mg PO DIRECTED #21 packet 02/10/24 [Medrol Dose Pack] Allergies Allergy/AdvReac Type Severity Reaction Status Date / Time azithromycin Allergy Rash/Hives Verified 02/19/24 23:44 [From Zithromax Z-Mehrdad] cimetidine [From Tagamet] Allergy Rash/Hives Verified 02/19/24 23:44 codeine Allergy Nausea & Verified 02/19/24 23:44 Vomiting ether [Ether] Allergy Anaphylaxis Verified 02/19/24 23:44 Fish Containing Products Allergy Anaphylaxis Verified 02/19/24 23:44 [Fish] ibuprofen [From Motrin] Allergy Rash/Hives Verified 02/19/24 23:44 morphine Allergy Unknown Verified 02/19/24 23:44 NSAIDS (Non-Steroidal Allergy Rash/Hives Verified 02/19/24 23:44 Anti-Inflamma ziprasidone HCl [From Geodon] Allergy Extrapyramidal Verified 02/19/24 23:44 Symptoms ciprofloxacin [From Cipro] AdvReac Rash/Hives Verified 02/19/24 23:44 fluphenazine HCl AdvReac Extrapyramidal Verified 02/19/24 23:44 [From Prolixin] Symptoms haloperidol [From Haldol] AdvReac Extrapyramidal Verified 02/19/24 23:44 Symptoms Sulfa (Sulfonamide AdvReac Nausea & Verified 02/19/24 23:44 Antibiotics) Vomiting Review of Systems ROS Statement: Those systems with pertinent positive or pertinent negative responses have been documented in the HPI. ROS Other: All systems not noted in ROS Statement are negative. Past Medical History Past Medical History: Asthma, GERD/Reflux, Hyperlipidemia, Musculoskeletal Disorder, Neurologic Disorder, Osteoarthritis (OA), Seizure Disorder Additional Past Medical History / Comment(s): RSD-DERIC FEET, INTERSTITIAL CYSTITIS, BRONCHITIS, HEMORRHOIDS,MIGRAINES, INSOMNIA. VERTIGO, last seizure 4 years ago, complex regional pain syndrome, RLS. History of Any Multi-Drug Resistant Organisms: MRSA Date of last positivie culture/infection: 04/20/15 MDRO Source:: Left Axilla Past Surgical History: Adenoidectomy, Back Surgery, Cholecystectomy, Orthopedic Surgery, Tonsillectomy Additional Past Surgical History / Comment(s): bilateral foot surgery d/t rsd, numerous pain clinic procedures, nerve stimulator in back to tx RSD placed in Nov 11 2015, pain pump placement, replacement of stimulator 06/2021, replacement of pain pump. Past Anesthesia/Blood Transfusion Reactions: Previous Problems w/ Anesthesia Additional Past Anesthesia/Blood Transfusion Reaction / Comment(s): Pt recieved blood when she was 2 yrs old after tonsillectomy. WHEN BABY HEART STOPPED TWICE- PT STATED SHE WAS ALLERGIC TO ETHER. Past Psychological History: Anxiety, Bipolar, Depression, PTSD Smoking Status: Never smoker Past Alcohol Use History: None Reported Past Drug Use History: Marijuana - Past Family History Father History Unknown: Yes Family Medical History: Diabetes Mellitus Mother Family Medical History: Cancer, CVA/TIA, Diabetes Mellitus, Myocardial Infarction ([place]) Additional Family Medical History / Comment(s): Mother has had 5 CVAs, 3 MIs and UTERINE CANCER General Exam Limitations: no limitations General appearance: alert, in no apparent distress Head exam: Present: atraumatic, normocephalic, normal inspection GI/Abdominal exam: Present: soft, normal bowel sounds, other (1 cm area of superficial dehiscence at incision site. No erythema, purulence, or sign of infection). Absent: distended, tenderness, guarding, rebound, rigid Neurological exam: Present: alert, oriented X3 Psychiatric exam: Present: normal affect, normal mood Skin exam: Present: warm, dry, intact, normal color. Absent: rash Course Vital Signs 02/19/24 02/20/24 23:41 01:49 Temperature 97.8 F Pulse Rate 94 85 Respiratory 18 18 Rate Blood Pressure 143/91 128/76 O2 Sat by Pulse 100 98 Oximetry Medical Decision Making - Medical Decision Making Was pt. sent in by a medical professional or institution (, PA, DRYWALL TAPER HELPER, urgent care, hospital, or [facility]...) When possible be specific @ -No Did you speak to anyone other than the patient for history (EMS, parent, family, police, friend...)? What history was obtained from this source @ -No Did you review nursing and triage notes (agree or disagree)? Why? @ -I reviewed and agree with nursing and triage notes Were old charts reviewed (outside hosp., previous admission, EMS record, old EKG, old radiological studies, urgent care reports/EKG's, [facility] records)? Report findings @ -No old charts were reviewed Differential Diagnosis (chest pain, altered mental status, abdominal pain women, abdominal pain men, vaginal bleeding, weakness, fever, dyspnea, syncope, headache, dizziness, GI bleed, back pain, seizure, CVA, palpatations, mental health, musculoskeletal)? @ -Incisional dehiscence, incision infection, cellulitis, abscess EKG interpreted by me (3pts min.). @ -None X-rays interpreted by me (1pt min.). @ -None done CT interpreted by me (1pt min.). @ -None done U/S interpreted by me (1pt. min.). @ -None done What testing was considered but not performed or refused? (CT, X-rays, U/S, labs)? Why? @ -Lab work deferred due to no red flag symptoms or sign of bacterial infection What meds were considered but not given or refused? Why? @ -None Did you discuss the management of the patient with other professionals (professionals i.e. , PA, DRYWALL TAPER HELPER, lab, RT, psych nurse, social services manager, test manager, teacher, correctional security officer, case liner)? Give summary @ -No Was smoking cessation discussed for >3mins.? @ -No Was critical care preformed (if so, how long)? @ -No Were there social determinants of health that impacted care today? How? (Homelessness, low income, unemployed, alcoholism, drug addiction, transportation, low edu. Level, literacy, decrease access to med. care, long-term, rehab)? @ -No Was there de-escalation of care discussed even if they declined (Discuss DNR or withdrawal of care, Hospice)? DNR status @ -No What co-morbidities impacted this encounter? (DM, HTN, Smoking, COPD, CAD, Cancer, CVA, ARF, Chemo, Hep., AIDS, mental health diagnosis, sleep apnea, morbid obesity)? @ -None Was patient admitted / discharged? Hospital course, mention meds given and ro sukhdev, prescriptions, significant lab abnormalities, going to OR and other pertinent info. @ -Discharge. This is a 38-year-old female presenting with incision pain x 1 week. States last week she felt a tear at her incision site when she rolled over in bed. Endorses a stinging pain at site of incision. Vital signs within acceptable limits. Physical examination reveals 1 cm incisional dehiscence, however no erythema, drainage, or sign of bacterial infection. Provided with analgesics and antiemetics. Patient is requesting Benadryl with Toradol as she states NSAIDs give her a rash if not taken with Benadryl. Upon reevaluation, patient reports improvement of symptoms. Prescribed antibiotic for bacterial coverage at incision site. Patient states she has an appointment with surgeon next week. Appropriate return precautions and follow-up care discussed. Case was discussed with my ED attending Dr. Mario. Undiagnosed new problem with uncertain prognosis? @ -No Drug Therapy requiring intensive monitoring for toxicity (Heparin, Nitro, Insulin, Cardizem)? @ -No Were any procedures done? @ -No Diagnosis/symptom? @ -Incision pain Acute, or Chronic, or Acute on Chronic? @ -Acute Uncomplicated (without systemic symptoms) or Complicated (systemic symptoms)? @ -Uncomplicated Side effects of treatment? @ -No Exacerbation, Progression, or Severe Exacerbation? @ -No Poses a threat to life or bodily function? How? (Chest pain, [place], [place], pneumonia, PE, COPD, DKA, ARF, appy, cholecystitis, CVA, Diverticulitis, Homicidal, Suicidal, threat to staff... and all critical care pts) @ -No Disposition Clinical Impression: Incisional pain Disposition: HOME SELF-CARE Condition: Stable Additional Instructions: Take Keflex twice daily for 7 days. Follow-up with surgeon as discussed. Please return to the Emergency Department if symptoms worsen or any other concerns. Is patient prescribed a controlled substance at d/c from ED?: No Referrals: None,Stated [Primary Care Provider] - 1-2 days Time of Disposition: 01:27
[2024-02-20] MEDS: ONDANSETRON 4 MG/2 ML VIAL IM STA (00:44)
[2024-02-20] MEDS: HYDROmorphone 1 MG/ML 1 ML SYRINGE IM STA (00:45)
[2024-02-20] MEDS: diphenhydrAMINE 50 MG/ML 1 ML VIAL IM STA (01:40)
[2024-02-20] MEDS: KETOROLAC 15 MG/ML 1 ML VIAL IM STA (01:41)
[2024-02-20 01:51] VITALS: BP 128/76; PULSE 85; TEMP 97.8
== END 2024-02-20 01:55 | disposition home or self-care (01) ==
LOC: EC 23:39
DX: G89.18 Other acute postprocedural pain (principal); Z88.6 Allergy status to analgesic agent; Z88.5 Allergy status to narcotic agent; Z88.8 Allergy status to other drugs, medicaments and biological substances; Z91.013 Allergy to seafood; Z88.2 Allergy status to sulfonamides
CPT/HCPCS: 99284; 96372 ×4; J1200; J2405; J1171; J1885

== ENCOUNTER 2024-03-04 20:01 | Emergency (ER) | payer MEDICARE, OTHER ==
[2024-03-04 20:19] VITALS: BP 110/72; PULSE 94; RESP 18; TEMP 99
--- NOTE | 2024-03-04 20:45 | ED ---
General Adult HPI - General Chief complaint: Extremity Injury, Lower Stated complaint: deric leg swelling Time Seen by Provider: 03/04/24 20:16 Source: patient, RN notes reviewed Mode of arrival: ambulatory Limitations: no limitations - History of Present Illness Initial comments: This is a 38-year-old female with history of complex regional pain syndrome presenting with BLE swelling/pain (12/09) x 17 years. Patient states she had a PE pump surgically implanted earlier this year with her body rejecting the pain pump in November and its removal within December. Patient endorses use of 25 mcg/h fentanyl patches with no relief. Patient states incision site of pain pump removal and left lower quadrant is healing well. Patient states pain worsens with ambulation described as "fire". Patient denies fever, chills, chest pain, dyspnea, abdominal pain, urinary symptoms, N/V/D, dizziness. Onset/Timin -: year(s) Location: lower extremity Radiation: non-radiation Severity scale (1-10): 9 Quality: burning Consistency: constant Improves with: none, rest Worsens with: cold therapy, movement Associated Symptoms: denies other symptoms Treatments Prior to Arrival: other (Toradol) - Related Data Home Medications Medication Instructions Recorded Confirmed Medroxyprogesterone Acetate 150 mg IM Q84D 11/22/13 10/07/20 [Depo-Provera] rOPINIRole HCL [Requip] 1 mg PO BID@0900,1200 11/22/13 10/07/20 Pentosan Polysulfate Sodium 100 mg PO DAILY 02/10/15 10/07/20 [Elmiron] HYDROcodone/APAP 7.5-325MG [[place] 1 tab PO BID 07/20/16 10/07/20 7.5-325] Paliperidone IM Pt Own [Invega 117 mg IM Q28D 07/20/16 10/07/20 Sustenna] amantadine HCL [Symmetrel] 100 mg PO BID 11/21/16 10/07/20 Albuterol Sulfate [Proair Hfa] 2 puff INHALATION RT-QID PRN 01/13/18 10/07/20 Butalb/Acetaminophen/Caffeine 1 tab PO Q8H PRN 01/13/18 10/07/20 [Fioricet 50-325-40] Fluticasone Propionate [Flovent 1 puff INHALATION RT-BID 01/13/18 10/07/20 Hfa 110 mcg] gemfibroziL [Lopid] 600 mg PO BID 01/13/18 10/07/20 Gabapentin [Neurontin] 300 mg PO TID 03/11/18 10/07/20 Gabapentin [Neurontin] 600 mg PO TID 09/16/19 10/07/20 Omeprazole [PriLOSEC] 40 mg PO DAILY 09/16/19 10/07/20 rOPINIRole HCL [Requip] 2 mg PO HS 09/16/19 10/07/20 traZODone HCL 300 mg PO HS 09/16/19 10/07/20 hydrOXYzine pamoate 25 mg PO BID 04/13/20 10/07/20 Cyclobenzaprine [Flexeril] 10 mg PO TID PRN 08/16/20 10/07/20 Fentanyl/Bupivcaine Pain Pump 1 dose INTRATHECA CONTINUOUS 08/16/20 10/07/20 Ibuprofen [Motrin] 600 mg PO TID PRN 10/07/20 10/07/20 diphenhydrAMINE [Benadryl] 50 mg PO DAILY PRN 10/07/20 10/07/20 Previous Rx's Medication Instructions Recorded Erythromycin Ophth Oint [Romycin 1 applic RIGHT EYE QID #1 bottle 10/03/20 Ophth Oint] Ondansetron Odt [Zofran Odt] 4 mg PO Q8HR PRN #14 tab 10/16/20 Ondansetron Odt [Zofran Odt] 4 mg PO Q8HR PRN #10 tab 06/21/21 predniSONE [Deltasone] 20 mg PO BID #10 tab 09/08/21 Cephalexin [Keflex] 500 mg PO Q8HR 7 Days #21 cap 11/25/21 Fluconazole [Diflucan] 150 mg PO ONCE #1 tab 11/25/21 Amoxic-Pot Clav 875-125Mg 1 tab PO Q12HR 7 Days #14 tab 05/02/23 [Augmentin 875-125] Ondansetron Odt [Zofran Odt] 8 mg PO Q8HR #9 tab 10/14/23 Ketorolac [Toradol] 10 mg PO Q8HR #15 tab 12/20/23 diphenhydrAMINE [Benadryl] 50 mg PO QID PRN #20 capsule 12/20/23 clindamycin HCL 300 mg PO QID #40 cap 12/29/23 Cephalexin [Keflex] 500 mg PO Q6HR 7 Days #28 cap 01/21/24 Albuterol Nebulized [Ventolin 2.5 mg INHALATION Q4H #75 ml 02/10/24 Nebulized] methylPREDNISolone Dose Pack 4 mg PO DIRECTED #21 packet 02/10/24 [Medrol Dose Pack] Allergies Allergy/AdvReac Type Severity Reaction Status Date / Time azithromycin Allergy Rash/Hives Verified 02/19/24 23:44 [From Zithromax Z-Mehrdad] cimetidine [From Tagamet] Allergy Rash/Hives Verified 02/19/24 23:44 codeine Allergy Nausea & Verified 02/19/24 23:44 Vomiting ether [Ether] Allergy Anaphylaxis Verified 02/19/24 23:44 Fish Containing Products Allergy Anaphylaxis Verified 02/19/24 23:44 [Fish] ibuprofen [From Motrin] Allergy Rash/Hives Verified 02/19/24 23:44 morphine Allergy Unknown Verified 02/19/24 23:44 NSAIDS (Non-Steroidal Allergy Rash/Hives Verified 02/19/24 23:44 Anti-Inflamma ziprasidone HCl [From Geodon] Allergy Extrapyramidal Verified 02/19/24 23:44 Symptoms ciprofloxacin [From Cipro] AdvReac Rash/Hives Verified 02/19/24 23:44 fluphenazine HCl AdvReac Extrapyramidal Verified 02/19/24 23:44 [From Prolixin] Symptoms haloperidol [From Haldol] AdvReac Extrapyramidal Verified 02/19/24 23:44 Symptoms Sulfa (Sulfonamide AdvReac Nausea & Verified 02/19/24 23:44 Antibiotics) Vomiting Review of Systems ROS Statement: Those systems with pertinent positive or pertinent negative responses have been documented in the HPI. ROS Other: All systems not noted in ROS Statement are negative. Past Medical History Past Medical History: Asthma, GERD/Reflux, Hyperlipidemia, Musculoskeletal Disorder, Neurologic Disorder, Osteoarthritis (OA), Seizure Disorder Additional Past Medical History / Comment(s): RSD-DERIC FEET, INTERSTITIAL CYSTITIS, BRONCHITIS, HEMORRHOIDS,MIGRAINES, INSOMNIA. VERTIGO, last seizure 4 years ago, complex regional pain syndrome, RLS. History of Any Multi-Drug Resistant Organisms: MRSA Date of last positivie culture/infection: 04/20/15 MDRO Source:: Left Axilla Past Surgical History: Adenoidectomy, Back Surgery, Cholecystectomy, Orthopedic Surgery, Tonsillectomy Additional Past Surgical History / Comment(s): bilateral foot surgery d/t rsd, numerous pain clinic procedures, nerve stimulator in back to tx RSD placed in Nov 11 2015, pain pump placement, replacement of stimulator 06/2021, replacement of pain pump. Past Anesthesia/Blood Transfusion Reactions: Previous Problems w/ Anesthesia Additional Past Anesthesia/Blood Transfusion Reaction / Comment(s): Pt recieved blood when she was 2 yrs old after tonsillectomy. WHEN BABY HEART STOPPED TWICE- PT STATED SHE WAS ALLERGIC TO ETHER. Past Psychological History: Anxiety, Bipolar, Depression, PTSD Smoking Status: Never smoker Past Alcohol Use History: None Reported Past Drug Use History: Marijuana - Past Family History Father History Unknown: Yes Family Medical History: Diabetes Mellitus Mother Family Medical History: Cancer, CVA/TIA, Diabetes Mellitus, Myocardial Infarction ([place]) Additional Family Medical History / Comment(s): Mother has had 5 CVAs, 3 MIs and UTERINE CANCER General Exam Limitations: no limitations General appearance: alert, in distress Head exam: Present: atraumatic, normocephalic, normal inspection Eye exam: Present: normal appearance, PERRL, EOMI. Absent: scleral icterus, conjunctival injection, periorbital swelling ENT exam: Present: normal exam, mucous membranes moist Neck exam: Present: normal inspection. Absent: tenderness, meningismus, lymphadenopathy Respiratory exam: Present: normal lung sounds bilaterally. Absent: respiratory distress, wheezes, rales, rhonchi, stridor Cardiovascular Exam: Present: regular rate, normal rhythm, normal heart sounds. Absent: systolic murmur, diastolic murmur, rubs, gallop, clicks GI/Abdominal exam: Present: soft, normal bowel sounds. Absent: distended, tenderness, guarding, rebound, rigid Extremities exam: Present: normal inspection, full ROM, tenderness (Positive diffuse BLE tenderness patient associates with CRPS), normal capillary refill, other (Bilateral neurovascular intact, posterior tibialis pulse +2 bilaterally. Patient wearing compression stockings.). Absent: pedal edema, joint swelling, calf tenderness Back exam: Present: normal inspection Neurological exam: Present: alert, oriented X3, CN II-XII intact Psychiatric exam: Present: normal affect, normal mood Skin exam: Present: warm, dry, intact, normal color. Absent: rash Course Vital Signs 03/04/24 20:10 Temperature 99.0 F Pulse Rate 94 Respiratory 18 Rate Blood Pressure 110/72 O2 Sat by Pulse 97 Oximetry Medical Decision Making - Medical Decision Making Was pt. sent in by a medical professional or institution (, CALLUM, PRECISION GRINDER, urgent care, hospital, or skilled nursing...) When possible be specific @ -No Did you speak to anyone other than the patient for history (EMS, parent, family, police, friend...)? What history was obtained from this source @ -No Did you review nursing and triage notes (agree or disagree)? Why? @ -I reviewed and agree with nursing and triage notes Were old charts reviewed (outside hosp., previous admission, EMS record, old EKG, old radiological studies, urgent care reports/EKG's, skilled nursing records)? Report findings @ -No old charts were reviewed Differential Diagnosis (chest pain, altered mental status, abdominal pain women, abdominal pain men, vaginal bleeding, weakness, fever, dyspnea, syncope, headache, dizziness, GI bleed, back pain, seizure, CVA, palpatations, mental health, musculoskeletal)? @ -DVT, lymphedema, PAD, PVD, intermittent claudication, this is not an exhaustive list EKG interpreted by me (3pts min.). @ -Not done X-rays interpreted by me (1pt min.). @ -None done CT interpreted by me (1pt min.). @ -None done U/S interpreted by me (1pt. min.). @ -None done What testing was considered but not performed or refused? (CT, X-rays, U/S, labs)? Why? @ -Advised patient of concern for DVT due to pain and swelling but patient decl ined BLE ultrasound, stating pain is no different than prior chronic pain. What meds were considered but not given or refused? Why? @ -None Did you discuss the management of the patient with other professionals (professionals i.e. CALLUM Estes, PRECISION GRINDER, lab, RT, psych nurse, public health social worker, business lawyer, teacher, antisubmarine weapons officer, registered nurse hh case manager)? Give summary @ -No Was smoking cessation discussed for >3mins.? @ -No Was critical care preformed (if so, how long)? @ -No Were there social determinants of health that impacted care today? How? (Homelessness, low income, unemployed, alcoholism, drug addiction, transport ation, low edu. Level, literacy, decrease access to med. care, [facility], rehab)? @ -No Was there de-escalation of care discussed even if they declined (Discuss DNR or withdrawal of care, Hospice)? DNR status @ -No What co-morbidities impacted this encounter? (DM, HTN, Smoking, COPD, CAD, Cancer, CVA, ARF, Chemo, Hep., AIDS, mental health diagnosis, sleep apnea, morbid obesity)? @ -None Was patient admitted / discharged? Hospital course, mention meds given and route, prescriptions, significant lab abnormalities, going to OR and other pertinent info. @ -Patient given IM Dilaudid for pain prior to discharge. Advised follow-up with primary care and/or pain clinic for ongoing pain control. Undiagnosed new problem with uncertain prognosis? @ -No Drug Therapy requiring intensive monitoring for toxicity (Heparin, Nitro, Insulin, Cardizem)? @ -No Were any procedures done? @ -No Diagnosis/symptom? @ -Complex regional pain syndrome Acute, or Chronic, or Acute on Chronic? @ -Acute on chronic Uncomplicated (without systemic symptoms) or Complicated (systemic symptoms)? @ -Uncomplicated Side effects of treatment? @ -No Exacerbation, Progression, or Severe Exacerbation? @ -Exacerbation Poses a threat to life or bodily function? How? (Chest pain, [place], [place], pneumonia, PE, COPD, DKA, ARF, appy, cholecystitis, CVA, Diverticulitis, Homicidal, Suicidal, threat to staff... and all critical care pts) @ -No Disposition Clinical Impression: Complex regional pain syndrome i of lower limb, bilateral Disposition: HOME SELF-CARE Condition: Good Is patient prescribed a controlled substance at d/c from ED?: No Referrals: None,Stated [Primary Care Provider] - 1-2 days Time of Disposition: 21:00
[2024-03-04] MEDS: HYDROmorphone 1 MG/ML 1 ML SYRINGE IM STA (21:09)
== END 2024-03-04 21:28 | disposition home or self-care (01) ==
LOC: EC 20:01
DX: G90.523 Complex regional pain syndrome I of lower limb, bilateral (principal); Z88.6 Allergy status to analgesic agent; Z88.1 Allergy status to other antibiotic agents; Z88.5 Allergy status to narcotic agent; Z88.2 Allergy status to sulfonamides; Z88.8 Allergy status to other drugs, medicaments and biological substances; Z91.013 Allergy to seafood; Z91.09 Other allergy status, other than to drugs and biological substances
CPT/HCPCS: 99283; 96372; J1171

== ENCOUNTER 2024-03-25 00:05 | Emergency (ER) | payer MEDICARE, OTHER ==
[2024-03-25 00:14] VITALS: BP 128/66; PULSE 99; RESP 20; TEMP 98.4
--- NOTE | 2024-03-25 00:25 | ED ---
Recheck HPI - General Chief Complaint: Extremity Injury, Lower Stated Complaint: leg pain Time Seen by Provider: 03/25/24 00:12 Source: patient, RN notes reviewed, old records reviewed Mode of arrival: wheelchair Limitations: no limitations - History of Present Illness Initial Comments: This is a 38-year-old female well-known to this ER for evaluation of chronic pain chronic leg pain chronic pain syndrome, patient presents for uncontrolled pain and anxiety MD Complaint: medication refill request -: days(s) Returns Today for: persistent/worsening pain related to initial visit Symptoms Since Prior Visit: worsening pain Associated Symptoms: none - Related Data Home Medications Medication Instructions Recorded Confirmed Medroxyprogesterone Acetate 150 mg IM Q84D 11/22/13 10/07/20 [Depo-Provera] rOPINIRole HCL [Requip] 1 mg PO BID@0900,1200 11/22/13 10/07/20 Pentosan Polysulfate Sodium 100 mg PO DAILY 02/10/15 10/07/20 [Elmiron] HYDROcodone/APAP 7.5-325MG [[place] 1 tab PO BID 07/20/16 10/07/20 7.5-325] Paliperidone IM Pt Own [Invega 117 mg IM Q28D 07/20/16 10/07/20 Sustenna] amantadine HCL [Symmetrel] 100 mg PO BID 11/21/16 10/07/20 Albuterol Sulfate [Proair Hfa] 2 puff INHALATION RT-QID PRN 01/13/18 10/07/20 Butalb/Acetaminophen/Caffeine 1 tab PO Q8H PRN 01/13/18 10/07/20 [Fioricet 50-325-40] Fluticasone Propionate [Flovent 1 puff INHALATION RT-BID 01/13/18 10/07/20 Hfa 110 mcg] gemfibroziL [Lopid] 600 mg PO BID 01/13/18 10/07/20 Gabapentin [Neurontin] 300 mg PO TID 03/11/18 10/07/20 Gabapentin [Neurontin] 600 mg PO TID 09/16/19 10/07/20 Omeprazole [PriLOSEC] 40 mg PO DAILY 09/16/19 10/07/20 rOPINIRole HCL [Requip] 2 mg PO HS 09/16/19 10/07/20 traZODone HCL 300 mg PO HS 09/16/19 10/07/20 hydrOXYzine pamoate 25 mg PO BID 04/13/20 10/07/20 Cyclobenzaprine [Flexeril] 10 mg PO TID PRN 08/16/20 10/07/20 Fentanyl/Bupivcaine Pain Pump 1 dose INTRATHECA CONTINUOUS 08/16/20 10/07/20 Ibuprofen [Motrin] 600 mg PO TID PRN 10/07/20 10/07/20 diphenhydrAMINE [Benadryl] 50 mg PO DAILY PRN 10/07/20 10/07/20 Previous Rx's Medication Instructions Recorded Erythromycin Ophth Oint [Romycin 1 applic RIGHT EYE QID #1 bottle 10/03/20 Ophth Oint] Ondansetron Odt [Zofran Odt] 4 mg PO Q8HR PRN #14 tab 10/16/20 Ondansetron Odt [Zofran Odt] 4 mg PO Q8HR PRN #10 tab 06/21/21 predniSONE [Deltasone] 20 mg PO BID #10 tab 09/08/21 Cephalexin [Keflex] 500 mg PO Q8HR 7 Days #21 cap 11/25/21 Fluconazole [Diflucan] 150 mg PO ONCE #1 tab 11/25/21 Amoxic-Pot Clav 875-125Mg 1 tab PO Q12HR 7 Days #14 tab 05/02/23 [Augmentin 875-125] Ondansetron Odt [Zofran Odt] 8 mg PO Q8HR #9 tab 10/14/23 Ketorolac [Toradol] 10 mg PO Q8HR #15 tab 12/20/23 diphenhydrAMINE [Benadryl] 50 mg PO QID PRN #20 capsule 12/20/23 clindamycin HCL 300 mg PO QID #40 cap 12/29/23 Cephalexin [Keflex] 500 mg PO Q6HR 7 Days #28 cap 01/21/24 Albuterol Nebulized [Ventolin 2.5 mg INHALATION Q4H #75 ml 02/10/24 Nebulized] methylPREDNISolone Dose Pack 4 mg PO DIRECTED #21 packet 02/10/24 [Medrol Dose Pack] Allergies Allergy/AdvReac Type Severity Reaction Status Date / Time azithromycin Allergy Rash/Hives Verified 02/19/24 23:44 [From Zithromax Z-Mehrdad] cimetidine [From Tagamet] Allergy Rash/Hives Verified 02/19/24 23:44 codeine Allergy Nausea & Verified 02/19/24 23:44 Vomiting ether [Ether] Allergy Anaphylaxis Verified 02/19/24 23:44 Fish Containing Products Allergy Anaphylaxis Verified 02/19/24 23:44 [Fish] ibuprofen [From Motrin] Allergy Rash/Hives Verified 02/19/24 23:44 morphine Allergy Unknown Verified 02/19/24 23:44 NSAIDS (Non-Steroidal Allergy Rash/Hives Verified 02/19/24 23:44 Anti-Inflamma ziprasidone HCl [From Geodon] Allergy Extrapyramidal Verified 02/19/24 23:44 Symptoms ciprofloxacin [From Cipro] AdvReac Rash/Hives Verified 02/19/24 23:44 fluphenazine HCl AdvReac Extrapyramidal Verified 02/19/24 23:44 [From Prolixin] Symptoms haloperidol [From Haldol] AdvReac Extrapyramidal Verified 02/19/24 23:44 Symptoms Sulfa (Sulfonamide AdvReac Nausea & Verified 02/19/24 23:44 Antibiotics) Vomiting Review of Systems ROS Statement: Those systems with pertinent positive or pertinent negative responses have been documented in the HPI. ROS Other: All systems not noted in ROS Statement are negative. Past Medical History Past Medical History: Asthma, GERD/Reflux, Hyperlipidemia, Musculoskeletal Disorder, Neurologic Disorder, Osteoarthritis (OA), Seizure Disorder Additional Past Medical History / Comment(s): RSD-DERIC FEET, INTERSTITIAL CYSTITIS, BRONCHITIS, HEMORRHOIDS,MIGRAINES, INSOMNIA. VERTIGO, last seizure 4 years ago, complex regional pain syndrome, RLS. History of Any Multi-Drug Resistant Organisms: MRSA Date of last positivie culture/infection: 04/20/15 MDRO Source:: Left Axilla Past Surgical History: Adenoidectomy, Back Surgery, Cholecystectomy, Orthopedic Surgery, Tonsillectomy Additional Past Surgical History / Comment(s): bilateral foot surgery d/t rsd, numerous pain clinic procedures, nerve stimulator in back to tx RSD placed in Nov 11 2015, pain pump placement, replacement of stimulator 06/2021, replacement of pain pump. Past Anesthesia/Blood Transfusion Reactions: Previous Problems w/ Anesthesia Additional Past Anesthesia/Blood Transfusion Reaction / Comment(s): Pt recieved blood when she was 2 yrs old after tonsillectomy. WHEN BABY HEART STOPPED TWICE- PT STATED SHE WAS ALLERGIC TO ETHER. Past Psychological History: Anxiety, Bipolar, Depression, PTSD Smoking Status: Never smoker Past Alcohol Use History: None Reported Past Drug Use History: Marijuana - Past Family History Father History Unknown: Yes Family Medical History: Diabetes Mellitus Mother Family Medical History: Cancer, CVA/TIA, Diabetes Mellitus, Myocardial Infarction ([place]) Additional Family Medical History / Comment(s): Mother has had 5 CVAs, 3 MIs and UTERINE CANCER General Exam Limitations: no limitations General appearance: alert, in no apparent distress Head exam: Present: atraumatic, normocephalic, normal inspection Eye exam: Present: normal appearance, PERRL, EOMI. Absent: scleral icterus, conjunctival injection, periorbital swelling ENT exam: Present: normal exam, mucous membranes moist Neck exam: Present: normal inspection. Absent: tenderness, meningismus, lymphadenopathy Respiratory exam: Present: normal lung sounds bilaterally. Absent: respiratory distress, wheezes, rales, rhonchi, stridor Cardiovascular Exam: Present: regular rate, normal rhythm, normal heart sounds. Absent: systolic murmur, diastolic murmur, rubs, gallop, clicks GI/Abdominal exam: Present: soft, normal bowel sounds. Absent: distended, tenderness, guarding, rebound, rigid Extremities exam: Present: normal inspection, full ROM, normal capillary refill. Absent: tenderness, pedal edema, joint swelling, calf tenderness Back exam: Present: normal inspection Neurological exam: Present: alert, oriented X3, CN II-XII intact Psychiatric exam: Present: normal affect, normal mood Skin exam: Present: warm, dry, intact, normal color. Absent: rash Course Vital Signs 03/25/24 00:10 Temperature 98.4 F Pulse Rate 99 Respiratory 20 Rate Blood Pressure 128/66 O2 Sat by Pulse 96 Oximetry - Reevaluation(s) Reevaluation #1: 03/25/24 00:24 Records reviewed Reevaluation #2: 03/25/24 00:24 Patient's pain is improved Reevaluation #3: 03/25/24 00:24 Patient informed of results and questions answered Reevaluation #4: Was pt. sent in by a medical professional or institution (Dr., PA, CRACKING MACHINE OPERATOR, urgent care, hospital, or half-way...) When possible be specific @ -no Did you speak to anyone other than the patient for history (EMS, parent, family, police, friend...)? What history was obtained from this source @ -no Did you review nursing and triage notes (agree or disagree)? Why? @ -agree Are old charts reviewed (outside hosp., previous admission, EMS record, old EKG, old radiological studies, urgent care reports/EKG's, half-way records)? Report findings @ -yes Differential Diagnosis (chest pain, altered mental status, abdominal pain women, abdominal pain men, vaginal bleeding, weakness, fever, dyspnea, syncope, headache, dizziness, GI bleed, back pain, seizure, CVA, palpatations, mental health, musculoskeletal)? @ -prior EKG interpreted by me (3pts min.). @ -yes X-rays interpreted by me (1pt min.). @ -yes negative for acute disease CT interpreted by me (1pt min.). @ -no U/S interpreted by me (1pt. min.). @ -no What testing was considered but not performed or refused? (CT, X-rays, U/S, labs)? Why? @ -none What meds were considered but not given or refused? Why? @ -none Did you discuss the management of the patient with other professionals (professionals i.e. CALLUM Estes, CRACKING MACHINE OPERATOR, lab, RT, psych nurse, aids social worker, interactive media specialist, teacher, college service officer, business case analyst)? Give summary @ -no Was smoking cessation discussed for >3mins.? @ -no Was critical care preformed (if so, how long)? @ -no Were there social determinants of health that impacted care today? How? (Homelessness, low income, unemployed, alcoholism, drug addiction, transportation, low edu. Level, literacy, decrease access to med. care, [facility], rehab)? @ -none Was there de-escalation of care discussed even if they declined (Discuss DNR or withdrawal of care, Hospice)? DNR status @ -no What co-morbidities impacted this encounter? (DM, HTN, Smoking, COPD, CAD, Cancer, CVA, ARF, Chemo, Hep., AIDS, mental health diagnosis, sleep apnea, morbid obesity)? @ -none Was patient admitted / discharged? Hospital course, mention meds given and route, prescriptions, significant lab abnormalities, going to OR and other pertinent info. @ - Undiagnosed new problem with uncertain prognosis? @ -no Drug Therapy requiring intensive monitoring for toxicity (Heparin, Nitro, Insulin, Cardizem)? @ -no Were any procedures done? @ -no Diagnosis/symptom? @ - Acute, or Chronic, or Acute on Chronic? @ -Acute Uncomplicated (without systemic symptoms) or Complicated (systemic symptoms)? @ -Complicated Side effects of treatment? @ -no Exacerbation, Progression, or Severe Exacerbation? @ -exacerbation Poses a threat to life or bodily function? How? (Chest pain, USA, CA, pneumonia, PE, COPD, DKA, ARF, appy, cholecystitis, CVA, Diverticulitis, Homicidal, Suicidal, threat to staff... and all critical care pts) @ -yes Medical Decision Making - Medical Decision Making 38 female to the ER for evaluation of chronic pain. Pain control can be discharged Disposition Clinical Impression: Chronic pain syndrome, Acute anxiety, Complex regional pain syndrome i of lower limb, bilateral Disposition: HOME SELF-CARE Instructions (If sedation given, give patient instructions): Complex Regional Pain Syndrome (DC) Is patient prescribed a controlled substance at d/c from ED?: No Referrals: Lior Clemons MD [Primary Care Provider] - 1-2 days Time of Disposition: 00:20
[2024-03-25] MEDS: ONDANSETRON ODT 4 MG TAB PO STA (00:55)
[2024-03-25] MEDS: diphenhydrAMINE 50 MG CAP PO STA (00:55)
[2024-03-25] MEDS: HYDROmorphone 1 MG/ML 1 ML SYRINGE IM STA (00:56)
== END 2024-03-25 01:06 | disposition home or self-care (01) ==
LOC: EC 00:05
DX: G89.4 Chronic pain syndrome (principal); F41.9 Anxiety disorder, unspecified; G90.523 Complex regional pain syndrome I of lower limb, bilateral; Z88.2 Allergy status to sulfonamides; Z88.5 Allergy status to narcotic agent; Z88.6 Allergy status to analgesic agent; Z88.1 Allergy status to other antibiotic agents; Z88.8 Allergy status to other drugs, medicaments and biological substances; Z91.013 Allergy to seafood
CPT/HCPCS: 99283; 96372; J1171

== ENCOUNTER 2024-03-31 00:12 | Emergency (ER) | payer MEDICARE, OTHER ==
[2024-03-31 00:16] VITALS: TEMP 98.6
[2024-03-31] MEDS: ONDANSETRON 4 MG/2 ML VIAL IM STA (01:03)
--- NOTE | 2024-03-31 01:03 | ED ---
General Adult HPI - General Chief complaint: Fall Stated complaint: Leg pain Time Seen by Provider: 03/31/24 00:36 Source: patient, RN notes reviewed Mode of arrival: ambulatory Limitations: no limitations - History of Present Illness Initial comments: 30-year-old female presents to the emergency department for evaluation of right leg pain. Patient reports that this started after she fell. She reports that she has been able to ambulate on it. She states "it is not broken." She denies any other injuries when she fell. She also admits to nausea but this is chronic for the patient. - Related Data Home Medications Medication Instructions Recorded Confirmed Medroxyprogesterone Acetate 150 mg IM Q84D 11/22/13 10/07/20 [Depo-Provera] rOPINIRole HCL [Requip] 1 mg PO BID@0900,1200 11/22/13 10/07/20 Pentosan Polysulfate Sodium 100 mg PO DAILY 02/10/15 10/07/20 [Elmiron] HYDROcodone/APAP 7.5-325MG [[place] 1 tab PO BID 07/20/16 10/07/20 7.5-325] Paliperidone IM Pt Own [Invega 117 mg IM Q28D 07/20/16 10/07/20 Sustenna] amantadine HCL [Symmetrel] 100 mg PO BID 11/21/16 10/07/20 Albuterol Sulfate [Proair Hfa] 2 puff INHALATION RT-QID PRN 01/13/18 10/07/20 Butalb/Acetaminophen/Caffeine 1 tab PO Q8H PRN 01/13/18 10/07/20 [Fioricet 50-325-40] Fluticasone Propionate [Flovent 1 puff INHALATION RT-BID 01/13/18 10/07/20 Hfa 110 mcg] gemfibroziL [Lopid] 600 mg PO BID 01/13/18 10/07/20 Gabapentin [Neurontin] 300 mg PO TID 03/11/18 10/07/20 Gabapentin [Neurontin] 600 mg PO TID 09/16/19 10/07/20 Omeprazole [PriLOSEC] 40 mg PO DAILY 09/16/19 10/07/20 rOPINIRole HCL [Requip] 2 mg PO HS 09/16/19 10/07/20 traZODone HCL 300 mg PO HS 09/16/19 10/07/20 hydrOXYzine pamoate 25 mg PO BID 04/13/20 10/07/20 Cyclobenzaprine [Flexeril] 10 mg PO TID PRN 08/16/20 10/07/20 Fentanyl/Bupivcaine Pain Pump 1 dose INTRATHECA CONTINUOUS 08/16/20 10/07/20 Ibuprofen [Motrin] 600 mg PO TID PRN 10/07/20 10/07/20 diphenhydrAMINE [Benadryl] 50 mg PO DAILY PRN 10/07/20 10/07/20 Previous Rx's Medication Instructions Recorded Erythromycin Ophth Oint [Romycin 1 applic RIGHT EYE QID #1 bottle 10/03/20 Ophth Oint] Ondansetron Odt [Zofran Odt] 4 mg PO Q8HR PRN #14 tab 10/16/20 Ondansetron Odt [Zofran Odt] 4 mg PO Q8HR PRN #10 tab 06/21/21 predniSONE [Deltasone] 20 mg PO BID #10 tab 09/08/21 Cephalexin [Keflex] 500 mg PO Q8HR 7 Days #21 cap 11/25/21 Fluconazole [Diflucan] 150 mg PO ONCE #1 tab 11/25/21 Amoxic-Pot Clav 875-125Mg 1 tab PO Q12HR 7 Days #14 tab 05/02/23 [Augmentin 875-125] Ondansetron Odt [Zofran Odt] 8 mg PO Q8HR #9 tab 10/14/23 Ketorolac [Toradol] 10 mg PO Q8HR #15 tab 12/20/23 diphenhydrAMINE [Benadryl] 50 mg PO QID PRN #20 capsule 12/20/23 clindamycin HCL 300 mg PO QID #40 cap 12/29/23 Cephalexin [Keflex] 500 mg PO Q6HR 7 Days #28 cap 01/21/24 Albuterol Nebulized [Ventolin 2.5 mg INHALATION Q4H #75 ml 02/10/24 Nebulized] methylPREDNISolone Dose Pack 4 mg PO DIRECTED #21 packet 02/10/24 [Medrol Dose Pack] Allergies Allergy/AdvReac Type Severity Reaction Status Date / Time azithromycin Allergy Rash/Hives Verified 03/31/24 00:16 [From Zithromax Z-Mehrdad] cimetidine [From Tagamet] Allergy Rash/Hives Verified 03/31/24 00:16 codeine Allergy Nausea & Verified 03/31/24 00:16 Vomiting ether [Ether] Allergy Anaphylaxis Verified 03/31/24 00:16 Fish Containing Products Allergy Anaphylaxis Verified 03/31/24 00:16 [Fish] ibuprofen [From Motrin] Allergy Rash/Hives Verified 03/31/24 00:16 morphine Allergy Unknown Verified 03/31/24 00:16 NSAIDS (Non-Steroidal Allergy Rash/Hives Verified 03/31/24 00:16 Anti-Inflamma ziprasidone HCl [From Geodon] Allergy Extrapyramidal Verified 03/31/24 00:16 Symptoms ciprofloxacin [From Cipro] AdvReac Rash/Hives Verified 03/31/24 00:16 fluphenazine HCl AdvReac Extrapyramidal Verified 03/31/24 00:16 [From Prolixin] Symptoms haloperidol [From Haldol] AdvReac Extrapyramidal Verified 03/31/24 00:16 Symptoms Sulfa (Sulfonamide AdvReac Nausea & Verified 03/31/24 00:16 Antibiotics) Vomiting Review of Systems ROS Statement: Those systems with pertinent positive or pertinent negative responses have been documented in the HPI. ROS Other: All systems not noted in ROS Statement are negative. Past Medical History Past Medical History: Asthma, GERD/Reflux, Hyperlipidemia, Musculoskeletal Disorder, Neurologic Disorder, Osteoarthritis (OA), Seizure Disorder Additional Past Medical History / Comment(s): RSD-DERIC FEET, INTERSTITIAL CYSTITIS, BRONCHITIS, HEMORRHOIDS,MIGRAINES, INSOMNIA. VERTIGO, last seizure 4 years ago, complex regional pain syndrome, RLS. History of Any Multi-Drug Resistant Organisms: MRSA Date of last positivie culture/infection: 04/20/15 MDRO Source:: Left Axilla Past Surgical History: Adenoidectomy, Back Surgery, Cholecystectomy, Orthopedic Surgery, Tonsillectomy Additional Past Surgical History / Comment(s): bilateral foot surgery d/t rsd, n umerous pain clinic procedures, nerve stimulator in back to tx RSD placed in Nov 11 2015, pain pump placement, replacement of stimulator 06/2021, replacement of pain pump. Past Anesthesia/Blood Transfusion Reactions: Previous Problems w/ Anesthesia Additional Past Anesthesia/Blood Transfusion Reaction / Comment(s): Pt recieved blood when she was 2 yrs old after tonsillectomy. WHEN BABY HEART STOPPED TWICE- PT STATED SHE WAS ALLERGIC TO ETHER. Past Psychological History: Anxiety, Bipolar, Depression, PTSD Smoking Status: Never smoker Past Alcohol Use History: None Reported Past Drug Use History: Marijuana - Past Family History Father History Unknown: Yes Family Medical History: Diabetes Mellitus Mother Family Medical History: Cancer, CVA/TIA, Diabetes Mellitus, Myocardial Infarction (MD) Additional Family Medical History / Comment(s): Mother has had 5 CVAs, 3 MIs and UTERINE CANCER General Exam Limitations: no limitations General appearance: alert, in no apparent distress Head exam: Present: atraumatic, normocephalic, normal inspection Eye exam: Present: normal appearance, PERRL, EOMI. Absent: scleral icterus, conjunctival injection, periorbital swelling ENT exam: Present: normal exam, mucous membranes moist Neck exam: Present: normal inspection. Absent: tenderness, meningismus, lymphadenopathy Respiratory exam: Present: normal lung sounds bilaterally. Absent: respiratory distress, wheezes, rales, rhonchi, stridor Cardiovascular Exam: Present: regular rate, normal rhythm, normal heart sounds. Absent: systolic murmur, diastolic murmur, rubs, gallop, clicks Extremities exam: Present: normal inspection, full ROM, normal capillary refill, other (DP PT pulses 2+). Absent: tenderness, pedal edema, joint swelling, calf tenderness Back exam: Present: normal inspection Neurological exam: Present: alert, oriented X3 Psychiatric exam: Present: normal affect, normal mood Skin exam: Present: warm, dry, intact, normal color. Absent: rash Course Vital Signs 03/31/24 03/31/24 00:13 01:26 Temperature 98.6 F Pulse Rate 110 H 103 H Respiratory 20 16 Rate Blood Pressure 133/74 121/88 O2 Sat by Pulse 99 99 Oximetry Medical Decision Making - Medical Decision Making Was pt. sent in by a medical professional or institution (, PA, COMBINE INSPECTOR, urgent care, hospital, or custodial...) When possible be specific @ -No Did you speak to anyone other than the patient for history (EMS, parent, family, police, friend...)? What history was obtained from this source @ -No Did you review nursing and triage notes (agree or disagree)? Why? @ -I reviewed and agree with nursing and triage notes Were old charts reviewed (outside hosp., previous admission, EMS record, old EKG, old radiological studies, urgent care reports/EKG's, custodial records)? Report findings @ -No old charts were reviewed Differential Diagnosis (chest pain, altered mental status, abdominal pain women, abdominal pain men, vaginal bleeding, weakness, fever, dyspnea, syncope, headache, dizziness, GI bleed, back pain, seizure, CVA, palpatations, mental health, musculoskeletal)? @ -Differential Musculoskeletal Muscular strain, contusion, ligament sprain, fracture, arthritis, septic arthritis, bursitis, cellulitis, muscle spasm, nerve compression, DVT, arterial occlusion, herpes zoster, electrolyte abnormality, tumor.... This is not meant to be in all inclusive list EKG interpreted by me (3pts min.). @ -None X-rays interpreted by me (1pt min.). @ -None done CT interpreted by me (1pt min.). @ -None done U/S interpreted by me (1pt. min.). @ -None done What testing was considered but not performed or refused? (CT, X-rays, U/S, labs)? Why? @ -X-rays considered, patient declined and patient has no overlying skin changes, no obvious deformity is able to ambulate and therefore I feel this is reasonable What meds were considered but not given or refused? Why? @ -None Did you discuss the management of the patient with other professionals (professionals i.e. , PA, COMBINE INSPECTOR, lab, RT, psych nurse, home health care social worker, grout worker, teacher, commercial credit officer, rn case manager)? Give summary @ -No Was smoking cessation discussed for >3mins.? @ -No Was critical care preformed (if so, how long)? @ -No Were there social determinants of health that impacted care today? How? (Homelessness, low income, unemployed, alcoholism, drug addiction, transportation, low edu. Level, literacy, decrease access to med. care, fdc, rehab)? @ -No Was there de-escalation of care discussed even if they declined (Discuss DNR or withdrawal of care, Hospice)? DNR status @ -No What co-morbidities impacted this encounter? (DM, HTN, Smoking, COPD, CAD, Cancer, CVA, ARF, Chemo, Hep., AIDS, mental health diagnosis, sleep apnea, morbid obesity)? @ -None Was patient admitted / discharged? Hospital course, mention meds given and route, prescriptions, significant lab abnormalities, going to OR and other pertinent info. @ -Discharge. Patient presented to the emergency department for evaluation of right leg pain following a fall. X-rays considered, patient declined and patient has no overlying skin changes, no obvious deformity is able to ambulate and therefore I feel this is reasonable. Patient was provided Toradol, Benadryl, Zofran in the ED for her symptoms. She will be discharged home. She is understanding agreeable plan. Patient stable at discharge. Case discussed with Dr. Hoang Undiagnosed new problem with uncertain prognosis? @ -No Drug Therapy requiring intensive monitoring for toxicity (Heparin, Nitro, Insulin, Cardizem)? @ -No Were any procedures done? @ -No Diagnosis/symptom? @ -Fall Acute, or Chronic, or Acute on Chronic? @ -Acute Uncomplicated (without systemic symptoms) or Complicated (systemic symptoms)? @ -Uncomplicated Side effects of treatment? @ -No Exacerbation, Progression, or Severe Exacerbation? @ -No Poses a threat to life or bodily function? How? (Chest pain, [place], [place], pneumonia, PE, COPD, DKA, ARF, appy, cholecystitis, CVA, Diverticulitis, Homicidal, Suicidal, threat to staff... and all critical care pts) @ -No Disposition Clinical Impression: Fall Disposition: HOME SELF-CARE Condition: Stable Instructions (If sedation given, give patient instructions): Fall Prevention (ED) Additional Instructions: Please follow up with your primary care provider. Return to the emergency department for new or worsening symptoms. Is patient prescribed a controlled substance at d/c from ED?: No Referrals: Lior Clemons MD [Primary Care Provider] - 1-2 days
[2024-03-31] MEDS: diphenhydrAMINE 50 MG/ML 1 ML VIAL IM STA (01:04)
[2024-03-31] MEDS: KETOROLAC 15 MG/ML 1 ML VIAL IM STA (01:04)
[2024-03-31] MEDS: FLUTICASONE NASAL 50MCG/SPRAY 16GM BTL EA NOSTRIL ONE (01:23)
[2024-03-31 01:45] VITALS: BP 121/88; PULSE 103; RESP 16
== END 2024-03-31 01:26 | disposition home or self-care (01) ==
LOC: EC 00:12
DX: M79.604 Pain in right leg (principal); Z88.6 Allergy status to analgesic agent; Z88.8 Allergy status to other drugs, medicaments and biological substances; Z88.5 Allergy status to narcotic agent; Z88.2 Allergy status to sulfonamides; W19.XXXA Unspecified fall, initial encounter
CPT/HCPCS: 99283; 96372; J1200; J2405; J1885

== ENCOUNTER 2024-04-13 00:07 | Emergency (ER) | payer MEDICARE, OTHER ==
--- NOTE | 2024-04-13 00:23 | ED ---
Recheck HPI - General Stated Complaint: Migraine Time Seen by Provider: 04/13/24 00:19 Source: RN notes reviewed, old records reviewed Mode of arrival: ambulatory Limitations: no limitations - History of Present Illness Initial Comments: This is a 38 female to the ER for evaluation patient presents today for evaluation of pain chronic pain medic migraine chronic migraines history of migraine headaches. Patient coming in for persistent migraine x 3 weeks but worse today. Complaint: other (0) -: days(s) Returns Today for: persistent/worsening pain related to initial visit Symptoms Since Prior Visit: worsening pain Treatments Prior to Arrival: Given Pain Meds on - Related Data Home Medications Medication Instructions Recorded Confirmed Medroxyprogesterone Acetate 150 mg IM Q84D 11/22/13 10/07/20 [Depo-Provera] rOPINIRole HCL [Requip] 1 mg PO BID@0900,1200 11/22/13 10/07/20 Pentosan Polysulfate Sodium 100 mg PO DAILY 02/10/15 10/07/20 [Elmiron] HYDROcodone/APAP 7.5-325MG [Magnolia 1 tab PO BID 07/20/16 10/07/20 7.5-325] Paliperidone IM Pt Own [Invega 117 mg IM Q28D 07/20/16 10/07/20 Sustenna] amantadine HCL [Symmetrel] 100 mg PO BID 11/21/16 10/07/20 Albuterol Sulfate [Proair Hfa] 2 puff INHALATION RT-QID PRN 01/13/18 10/07/20 Butalb/Acetaminophen/Caffeine 1 tab PO Q8H PRN 01/13/18 10/07/20 [Fioricet 50-325-40] Fluticasone Propionate [Flovent 1 puff INHALATION RT-BID 01/13/18 10/07/20 Hfa 110 mcg] gemfibroziL [Lopid] 600 mg PO BID 01/13/18 10/07/20 Gabapentin [Neurontin] 300 mg PO TID 03/11/18 10/07/20 Gabapentin [Neurontin] 600 mg PO TID 09/16/19 10/07/20 Omeprazole [PriLOSEC] 40 mg PO DAILY 09/16/19 10/07/20 rOPINIRole HCL [Requip] 2 mg PO HS 09/16/19 10/07/20 traZODone HCL 300 mg PO HS 09/16/19 10/07/20 hydrOXYzine pamoate 25 mg PO BID 04/13/20 10/07/20 Cyclobenzaprine [Flexeril] 10 mg PO TID PRN 08/16/20 10/07/20 Fentanyl/Bupivcaine Pain Pump 1 dose INTRATHECA CONTINUOUS 08/16/20 10/07/20 Ibuprofen [Motrin] 600 mg PO TID PRN 10/07/20 10/07/20 diphenhydrAMINE [Benadryl] 50 mg PO DAILY PRN 10/07/20 10/07/20 Previous Rx's Medication Instructions Recorded Erythromycin Ophth Oint [Romycin 1 applic RIGHT EYE QID #1 bottle 10/03/20 Ophth Oint] Ondansetron Odt [Zofran Odt] 4 mg PO Q8HR PRN #14 tab 10/16/20 Ondansetron Odt [Zofran Odt] 4 mg PO Q8HR PRN #10 tab 06/21/21 predniSONE [Deltasone] 20 mg PO BID #10 tab 09/08/21 Cephalexin [Keflex] 500 mg PO Q8HR 7 Days #21 cap 11/25/21 Fluconazole [Diflucan] 150 mg PO ONCE #1 tab 11/25/21 Amoxic-Pot Clav 875-125Mg 1 tab PO Q12HR 7 Days #14 tab 05/02/23 [Augmentin 875-125] Ondansetron Odt [Zofran Odt] 8 mg PO Q8HR #9 tab 10/14/23 Ketorolac [Toradol] 10 mg PO Q8HR #15 tab 12/20/23 diphenhydrAMINE [Benadryl] 50 mg PO QID PRN #20 capsule 12/20/23 clindamycin HCL 300 mg PO QID #40 cap 12/29/23 Cephalexin [Keflex] 500 mg PO Q6HR 7 Days #28 cap 01/21/24 Albuterol Nebulized [Ventolin 2.5 mg INHALATION Q4H #75 ml 02/10/24 Nebulized] methylPREDNISolone Dose Pack 4 mg PO DIRECTED #21 packet 02/10/24 [Medrol Dose Pack] Allergies Allergy/AdvReac Type Severity Reaction Status Date / Time azithromycin Allergy Rash/Hives Verified 04/13/24 00:25 [From Zithromax Z-Mehrdad] cimetidine [From Tagamet] Allergy Rash/Hives Verified 04/13/24 00:25 codeine Allergy Nausea & Verified 04/13/24 00:25 Vomiting ether [Ether] Allergy Anaphylaxis Verified 04/13/24 00:25 Fish Containing Products Allergy Anaphylaxis Verified 04/13/24 00:25 [Fish] ibuprofen [From Motrin] Allergy Rash/Hives Verified 04/13/24 00:25 morphine Allergy Unknown Verified 04/13/24 00:25 NSAIDS (Non-Steroidal Allergy Rash/Hives Verified 04/13/24 00:25 Anti-Inflamma ziprasidone HCl [From Geodon] Allergy Extrapyramidal Verified 04/13/24 00:25 Symptoms ciprofloxacin [From Cipro] AdvReac Rash/Hives Verified 04/13/24 00:25 fluphenazine HCl AdvReac Extrapyramidal Verified 04/13/24 00:25 [From Prolixin] Symptoms haloperidol [From Haldol] AdvReac Extrapyramidal Verified 04/13/24 00:25 Symptoms Sulfa (Sulfonamide AdvReac Nausea & Verified 04/13/24 00:25 Antibiotics) Vomiting Review of Systems ROS Statement: Those systems with pertinent positive or pertinent negative responses have been documented in the HPI. ROS Other: All systems not noted in ROS Statement are negative. Past Medical History Past Medical History: Asthma, GERD/Reflux, Hyperlipidemia, Musculoskeletal Disorder, Neurologic Disorder, Osteoarthritis (OA), Seizure Disorder Additional Past Medical History / Comment(s): RSD-DERIC FEET, INTERSTITIAL CYSTITIS, BRONCHITIS, HEMORRHOIDS,MIGRAINES, INSOMNIA. VERTIGO, last seizure 4 years ago, complex regional pain syndrome, RLS. History of Any Multi-Drug Resistant Organisms: MRSA Date of last positivie culture/infection: 04/20/15 MDRO Source:: Left Axilla Past Surgical History: Adenoidectomy, Back Surgery, Cholecystectomy, Orthopedic Surgery, Tonsillectomy Additional Past Surgical History / Comment(s): bilateral foot surgery d/t rsd, numerous pain clinic procedures, nerve stimulator in back to tx RSD placed in Nov 11 2015, pain pump placement, replacement of stimulator 06/2021, replacement of pain pump. Past Anesthesia/Blood Transfusion Reactions: Previous Problems w/ Anesthesia Additional Past Anesthesia/Blood Transfusion Reaction / Comment(s): Pt recieved blood when she was 2 yrs old after tonsillectomy. WHEN BABY HEART STOPPED TWICE- PT STATED SHE WAS ALLERGIC TO ETHER. Past Psychological History: Anxiety, Bipolar, Depression, PTSD Smoking Status: Never smoker Past Alcohol Use History: None Reported Past Drug Use History: Marijuana - Past Family History Father History Unknown: Yes Family Medical History: Diabetes Mellitus Mother Family Medical History: Cancer, CVA/TIA, Diabetes Mellitus, Myocardial Infarction (HI) Additional Family Medical History / Comment(s): Mother has had 5 CVAs, 3 MIs and UTERINE CANCER General Exam General appearance: alert, in no apparent distress Head exam: Present: atraumatic, normocephalic, normal inspection Eye exam: Present: normal appearance, PERRL, EOMI. Absent: scleral icterus, conjunctival injection, periorbital swelling ENT exam: Present: normal exam, mucous membranes moist Neck exam: Present: normal inspection. Absent: tenderness, meningismus, lymphadenopathy Respiratory exam: Present: normal lung sounds bilaterally. Absent: respiratory distress, wheezes, rales, rhonchi, stridor Cardiovascular Exam: Present: regular rate, normal rhythm, normal heart sounds. Absent: systolic murmur, diastolic murmur, rubs, gallop, clicks GI/Abdominal exam: Present: soft, normal bowel sounds. Absent: distended, tenderness, guarding, rebound, rigid Extremities exam: Present: normal inspection, full ROM, normal capillary refill. Absent: tenderness, pedal edema, joint swelling, calf tenderness Back exam: Present: normal inspection Neurological exam: Present: alert, oriented X3, CN II-XII intact Psychiatric exam: Present: normal affect, normal mood Skin exam: Present: warm, dry, intact, normal color. Absent: rash Course Vital Signs 04/13/24 04/13/24 00:24 01:17 Temperature 98.5 F Pulse Rate 104 H 88 Respiratory 20 16 Rate Blood Pressure 136/77 160/94 O2 Sat by Pulse 96 98 Oximetry - Reevaluation(s) Reevaluation #1: 04/13/24 00:50 Medical records reviewed Reevaluation #2: 04/13/24 00:50 Patient symptoms unchanged Reevaluation #3: 04/13/24 00:50 Patient informed of results questions answered Reevaluation #4: Was pt. sent in by a medical professional or institution ([facility], PACKING MACHINE OPERATOR, urgent care, hospital, or penitentiary...) When possible be specific @ -no Did you speak to anyone other than the patient for history (EMS, parent, family, police, friend...)? What history was obtained from this source @ -no Did you review nursing and triage notes (agree or disagree)? Why? @ -agree Are old charts reviewed (outside hosp., previous admission, EMS record, old EKG, old radiological studies, urgent care reports/EKG's, penitentiary records)? Report findings @ -yes Differential Diagnosis (chest pain, altered mental status, abdominal pain women, abdominal pain men, vaginal bleeding, weakness, fever, dyspnea, syncope, headache, dizziness, GI bleed, back pain, seizure, CVA, palpatations, mental health, musculoskeletal)? @ -prior EKG interpreted by me (3pts min.). @ -no X-rays interpreted by me (1pt min.). @ -no CT interpreted by me (1pt min.). @ -no U/S interpreted by me (1pt. min.). @ -no What testing was considered but not performed or refused? (CT, X-rays, U/S, labs)? Why? @ -none What meds were considered but not given or refused? Why? @ -none Did you discuss the management of the patient with other professionals (professionals i.e. [facility], PACKING MACHINE OPERATOR, lab, RT, psych nurse, social media campaign manager, equipment scheduler, teacher, public affairs officer, case finisher)? Give summary @ -no Was smoking cessation discussed for >3mins.? @ -no Was critical care preformed (if so, how long)? @ -no Were there social determinants of health that impacted care today? How? (Homelessness, low income, unemployed, alcoholism, drug addiction, transportation, low edu. Level, literacy, decrease access to med. care, senior living, rehab)? @ -none Was there de-escalation of care discussed even if they declined (Discuss DNR or withdrawal of care, Hospice)? DNR status @ -no What co-morbidities impacted this encounter? (DM, HTN, Smoking, COPD, CAD, Cancer, CVA, ARF, Chemo, Hep., AIDS, mental health diagnosis, sleep apnea, morbid obesity)? @ -none Was patient admitted / discharged? Hospital course, mention meds given and route, prescriptions, significant lab abnormalities, going to OR and other pertinent info. @ - 38 Female to the ER for evaluation patient presents today for evaluation of migraines chronic migraine. Headache improved here in the ER she can be discharged home Discharge Undiagnosed new problem with uncertain prognosis? @ -no Drug Therapy requiring intensive monitoring for toxicity (Heparin, Nitro, Insulin, Cardizem)? @ -no Were any procedures done? @ -no Diagnosis/symptom? @ -Chronic pain Acute, or Chronic, or Acute on Chronic? @ -Acute Uncomplicated (without systemic symptoms) or Complicated (systemic symptoms)? @ -Complicated Side effects of treatment? @ -no Exacerbation, Progression, or Severe Exacerbation? @ -exacerbation Poses a threat to life or bodily function? How? (Chest pain, [place], HI, pneumonia, PE, COPD, DKA, ARF, appy, cholecystitis, CVA, Diverticulitis, Homicidal, Suicidal, threat to staff... and all critical care pts) @ -no Reevaluation #5: Differential Headache: Migraine, tension, cluster, carbon monoxide, central venous thrombosis, pension karma temporal arteritis, acute closure glaucoma, intercranial hemorrhage, mastoiditis, sinusitis, head injury, this is not meant to be an all-inclusive list. Medical Decision Making - Medical Decision Making 38 Female to the ER for evaluation patient presents today for evaluation of migraines chronic migraine. Headache improved here in the ER she can be discharged home Disposition Clinical Impression: Chronic pain syndrome, Status migrainosus Disposition: HOME SELF-CARE Condition: Good Instructions (If sedation given, give patient instructions): Acute Headache (ED) Is patient prescribed a controlled substance at d/c from ED?: No Referrals: None,Stated [Primary Care Provider] - 1-2 days Time of Disposition: 01:00
[2024-04-13 00:27] VITALS: TEMP 98.5
[2024-04-13] MEDS: droPERidol 5 MG/2 ML VIAL IM ONE (01:07)
[2024-04-13] MEDS: PROCHLORPERAZINE INJ 10 MG/2 ML VIAL IM STA (01:10)
[2024-04-13] MEDS: HYDROmorphone 1 MG/ML 1 ML SYRINGE IM STA (01:10)
[2024-04-13] MEDS: ONDANSETRON ODT 4 MG TAB PO STA (01:11)
[2024-04-13] MEDS: dexAMETHasone 2 MG TAB PO STA (01:11)
[2024-04-13] MEDS: diphenhydrAMINE 50 MG CAP PO STA (01:12)
[2024-04-13 01:29] VITALS: BP 160/94; PULSE 88; RESP 16
== END 2024-04-13 01:17 | disposition home or self-care (01) ==
LOC: EC 00:07
DX: G43.901 Migraine, unspecified, not intractable, with status migrainosus (principal); G89.4 Chronic pain syndrome; Z88.1 Allergy status to other antibiotic agents; Z88.2 Allergy status to sulfonamides; Z88.5 Allergy status to narcotic agent; Z88.6 Allergy status to analgesic agent; Z91.09 Other allergy status, other than to drugs and biological substances; Z91.013 Allergy to seafood; Z88.8 Allergy status to other drugs, medicaments and biological substances
CPT/HCPCS: 99283; 96372; J0780; J1171; J8540

== ENCOUNTER 2024-05-03 03:14 | Emergency (ER) | payer MEDICARE, OTHER ==
[2024-05-03 03:23] VITALS: BP 127/69; TEMP 98.2
[2024-05-03] MEDS: ONDANSETRON ODT 4 MG TAB PO STA (03:54)
[2024-05-03] MEDS: KETOROLAC 15 MG/ML 1 ML VIAL IM STA (03:56)
--- NOTE | 2024-05-03 03:58 | ED ---
General Adult HPI - General Chief complaint: Extremity Problem,Nontraumatic Stated complaint: Leg pain Time Seen by Provider: 05/03/24 03:26 Source: patient Mode of arrival: wheelchair Limitations: no limitations - History of Present Illness Initial comments: Patient is a 38-year-old female with a past medical history of complex regional pain syndrome presenting today for exacerbation of her chronic pain. The patient states she typically sees a neurologist for her pain management. She had her pain pump removed over a month ago and has since been placed on fentanyl patches. Patient states that she feels like her fentanyl patches have been causing pain in her upper arms however is continuing to use them, stating that if she does not use them "she will ". States she took her home norco as scheduled last night however this did not help her pain. States she is allergic to NSAIDS however took a motrin and benadryl earlier this week without relief from pain. Denies fevers, chest pain, shortness of breath, vomiting, abdominal pain, dysuria, dark urine. States today's pain is an exacerbation of her chronic pain. Denied recent injury. - Related Data Home Medications Medication Instructions Recorded Confirmed Medroxyprogesterone Acetate 150 mg IM Q84D 11/22/13 10/07/20 [Depo-Provera] rOPINIRole HCL [Requip] 1 mg PO BID@0900,1200 11/22/13 10/07/20 Pentosan Polysulfate Sodium 100 mg PO DAILY 02/10/15 10/07/20 [Elmiron] HYDROcodone/APAP 7.5-325MG [Bynum 1 tab PO BID 07/20/16 10/07/20 7.5-325] Paliperidone IM Pt Own [Invega 117 mg IM Q28D 07/20/16 10/07/20 Sustenna] amantadine HCL [Symmetrel] 100 mg PO BID 11/21/16 10/07/20 Albuterol Sulfate [Proair Hfa] 2 puff INHALATION RT-QID PRN 01/13/18 10/07/20 Butalb/Acetaminophen/Caffeine 1 tab PO Q8H PRN 01/13/18 10/07/20 [Fioricet 50-325-40] Fluticasone Propionate [Flovent 1 puff INHALATION RT-BID 01/13/18 10/07/20 Hfa 110 mcg] gemfibroziL [Lopid] 600 mg PO BID 01/13/18 10/07/20 Gabapentin [Neurontin] 300 mg PO TID 03/11/18 10/07/20 Gabapentin [Neurontin] 600 mg PO TID 09/16/19 10/07/20 Omeprazole [PriLOSEC] 40 mg PO DAILY 09/16/19 10/07/20 rOPINIRole HCL [Requip] 2 mg PO HS 09/16/19 10/07/20 traZODone HCL 300 mg PO HS 09/16/19 10/07/20 hydrOXYzine pamoate 25 mg PO BID 04/13/20 10/07/20 Cyclobenzaprine [Flexeril] 10 mg PO TID PRN 08/16/20 10/07/20 Fentanyl/Bupivcaine Pain Pump 1 dose INTRATHECA CONTINUOUS 08/16/20 10/07/20 Ibuprofen [Motrin] 600 mg PO TID PRN 10/07/20 10/07/20 diphenhydrAMINE [Benadryl] 50 mg PO DAILY PRN 10/07/20 10/07/20 Previous Rx's Medication Instructions Recorded Erythromycin Ophth Oint [Romycin 1 applic RIGHT EYE QID #1 bottle 10/03/20 Ophth Oint] Ondansetron Odt [Zofran Odt] 4 mg PO Q8HR PRN #14 tab 10/16/20 Ondansetron Odt [Zofran Odt] 4 mg PO Q8HR PRN #10 tab 06/21/21 predniSONE [Deltasone] 20 mg PO BID #10 tab 09/08/21 Cephalexin [Keflex] 500 mg PO Q8HR 7 Days #21 cap 11/25/21 Fluconazole [Diflucan] 150 mg PO ONCE #1 tab 11/25/21 Amoxic-Pot Clav 875-125Mg 1 tab PO Q12HR 7 Days #14 tab 05/02/23 [Augmentin 875-125] Ondansetron Odt [Zofran Odt] 8 mg PO Q8HR #9 tab 10/14/23 Ketorolac [Toradol] 10 mg PO Q8HR #15 tab 12/20/23 diphenhydrAMINE [Benadryl] 50 mg PO QID PRN #20 capsule 12/20/23 clindamycin HCL 300 mg PO QID #40 cap 12/29/23 Cephalexin [Keflex] 500 mg PO Q6HR 7 Days #28 cap 01/21/24 Albuterol Nebulized [Ventolin 2.5 mg INHALATION Q4H #75 ml 02/10/24 Nebulized] methylPREDNISolone Dose Pack 4 mg PO DIRECTED #21 packet 02/10/24 [Medrol Dose Pack] Allergies Allergy/AdvReac Type Severity Reaction Status Date / Time azithromycin Allergy Rash/Hives Verified 05/03/24 03:23 [From Zithromax Z-Mehrdad] cimetidine [From Tagamet] Allergy Rash/Hives Verified 05/03/24 03:23 codeine Allergy Nausea & Verified 05/03/24 03:23 Vomiting ether [Ether] Allergy Anaphylaxis Verified 05/03/24 03:23 Fish Containing Products Allergy Anaphylaxis Verified 05/03/24 03:23 [Fish] ibuprofen [From Motrin] Allergy Rash/Hives Verified 05/03/24 03:23 morphine Allergy Unknown Verified 05/03/24 03:23 NSAIDS (Non-Steroidal Allergy Rash/Hives Verified 05/03/24 03:23 Anti-Inflamma ziprasidone HCl [From Geodon] Allergy Extrapyramidal Verified 05/03/24 03:23 Symptoms ciprofloxacin [From Cipro] AdvReac Rash/Hives Verified 05/03/24 03:23 fluphenazine HCl AdvReac Extrapyramidal Verified 05/03/24 03:23 [From Prolixin] Symptoms haloperidol [From Haldol] AdvReac Extrapyramidal Verified 05/03/24 03:23 Symptoms Sulfa (Sulfonamide AdvReac Nausea & Verified 05/03/24 03:23 Antibiotics) Vomiting Review of Systems ROS Statement: Those systems with pertinent positive or pertinent negative responses have been documented in the HPI. ROS Other: All systems not noted in ROS Statement are negative. Past Medical History Past Medical History: Asthma, GERD/Reflux, Hyperlipidemia, Musculoskeletal Disorder, Neurologic Disorder, Osteoarthritis (OA), Seizure Disorder Additional Past Medical History / Comment(s): RSD-DERIC FEET, INTERSTITIAL CYST ITIS, BRONCHITIS, HEMORRHOIDS,MIGRAINES, INSOMNIA. VERTIGO, last seizure 4 years ago, complex regional pain syndrome, RLS. History of Any Multi-Drug Resistant Organisms: MRSA Date of last positivie culture/infection: 04/20/15 MDRO Source:: Left Axilla Past Surgical History: Adenoidectomy, Back Surgery, Cholecystectomy, Orthopedic Surgery, Tonsillectomy Additional Past Surgical History / Comment(s): bilateral foot surgery d/t rsd, numerous pain clinic procedures, nerve stimulator in back to tx RSD placed in Nov 11 2015, pain pump placement, replacement of stimulator 06/2021, replacement of pain pump. Past Anesthesia/Blood Transfusion Reactions: Previous Problems w/ Anesthesia Additional Past Anesthesia/Blood Transfusion Reaction / Comment(s): Pt recieved blood when she was 2 yrs old after tonsillectomy. WHEN BABY HEART STOPPED TWICE- PT STATED SHE WAS ALLERGIC TO ETHER. Past Psychological History: Anxiety, Bipolar, Depression, PTSD Smoking Status: Never smoker Past Alcohol Use History: None Reported Past Drug Use History: Marijuana - Past Family History Father History Unknown: Yes Family Medical History: Diabetes Mellitus Mother Family Medical History: Cancer, CVA/TIA, Diabetes Mellitus, Myocardial Infarction (ID) Additional Family Medical History / Comment(s): Mother has had 5 CVAs, 3 MIs and UTERINE CANCER General Exam - General Exam Comments Initial Comments: PE: CONSTITUTIONAL: [no apparent distress, well appearing, tearful] SKIN: [warm, dry, no jaundice, hives or petechiae. Pt shows her bilatearl UE where her fentanyl patches have been, I see no evidence of rashes, blistering or erythema. [address] f[address] patch is in place on her right bicep] EYES:[ pupils are equally round, extraocular movements intact without nystagmus, clear conjunctiva, non-icteric sclera] HENT: [normocephalic, atraumatic, moist mucus membranes, oropharynx clear without exudates] NECK: , [Full range of motion, normal appearance] PULMONARY: [clear to auscultation without wheezes, rhonchi, or rales, normal excursion, no accessory muscle use and no stridor] CARDIOVASCULAR:[ regular rate, rhythm, normal S1 and S2. No appreciated murmurs, rubs or gallops. Strong radial pulses with intact distal perfusion. ] GASTROINTESTINAL: [soft, active bowel sounds throughout, non-tender, non- distended, no palpable masses, no rebound or guarding. No hepatosplenomegaly] GENITOURINARY: MUSCULOSKELETAL: [Extremities have no gross deformity and are atraumatic ] NEUROLOGIC: [_a/o x 3, GCS 15, normal mentation and speech. Moves all extremities x 4 without motor or sensory deficit] PSYCHIATRIC:[ _normal mood and affect, thought process is clear and linear] Limitations: no limitations Course Vital Signs 05/03/24 05/03/24 03:21 04:21 Temperature 98.2 F Pulse Rate 98 84 Respiratory 16 18 Rate Blood Pressure 127/69 O2 Sat by Pulse 98 97 Oximetry Medical Decision Making - Medical Decision Making Was pt. sent in by a medical professional or institution (, PA, LEARN TO SWIM INSTRUCTOR, urgent care, hospital, or [facility]...) When possible be specific @ -[No] Did you speak to anyone other than the patient for history (EMS, parent, family, police, friend...)? What history was obtained from this source @ -[No] Did you review nursing and triage notes (agree or disagree)? Why? @ -[I reviewed nursing and triage notes] Were old charts reviewed (outside hosp., previous admission, EMS record, old EKG, old radiological studies, urgent care reports/EKG's, [facility] records)? Report findings @ -[Medical records reviewed] Patient is well known to this emergency department, returning here frequently for various chronic pain complaints, was last here for migraine about 2 weeks ago, was here for chronic leg pain in March when she received Toradol, Benadryl and Zofran was ultimately dischar ged Differential Diagnosis (chest pain, altered mental status, abdominal pain women, abdominal pain men, vaginal bleeding, weakness, fever, dyspnea, syncope, headache, dizziness, GI bleed, back pain, seizure, CVA, palpatations, mental health, musculoskeletal)? @Differential Musculoskeletal Muscular strain, contusion, ligament sprain, arthritis, bursitis, muscle spasm, nerve compression, exacerbation of chronic pain, malingering... This is not meant to be in all inclusive list EKG interpreted by me (3pts min.). @ -[As above] X-rays interpreted by me (1pt min.). @ -[None done] CT interpreted by me (1pt min.). @ -[None done] U/S interpreted by me (1pt. min.). @ -[None done] What testing was considered but not performed or refused? (CT, X-rays, U/S, labs)? Why? @none What meds were considered but not given or refused? Why? @ -[None] Did you discuss the management of the patient with other professionals (professionals i.e. , PA, LEARN TO SWIM INSTRUCTOR, lab, RT, psych nurse, social work manager, sketch artist, teacher, biological technical officer, manager case)? Give summary @ -[No] Was smoking cessation discussed for >3mins.? @ -[No] Was critical care preformed (if so, how long)? @ -[No] Were there social determinants of health that impacted care today? How? (Homelessness, low income, unemployed, alcoholism, drug addiction, transportation, low edu. Level, literacy, decrease access to med. care, detention, rehab)? @ -[No] Was there de-escalation of care discussed even if they declined (Discuss DNR or withdrawal of care, Hospice)? @ -[No] What co-morbidities impacted this encounter? (DM, HTN, Smoking, COPD, CAD, Cancer, CVA, ARF, Chemo, Hep., AIDS, mental health diagnosis, sleep apnea, morbid obesity)? @Complex regional pain syndrome, opioid dependence Was patient admitted / discharged? Hospital course, mention meds given and route, prescriptions, significant lab abnormalities, going to OR and other pertinent info. Discharged-this is a 38-year-old female with a past medical history of complex regional pain syndrome presenting today for exacerbation of her chronic pain. On my assessment patient is tearful otherwise in no acute distress. Vital signs within acceptable limits on arrival. She endorses that her fentnyl patches are causing increased pain and skin changes - on my exam, pt does have a fentanyl patch in RE, without underlying skin changes, and there is no erythema or rashes or swelling of the UE. Pt states that she typically receives toradol, benadryl, and diluadid when she comes in for pain. I discussed with the pt that the fentanyl patch should be removed if it is causing her discomfort, however she states she cannot live without it. I discussed with the patient that as she sees a pain specialist already and receiving multiple narcotics, here we we will do Toradol and Benadryl however dilaudid is not indicated at this point. Pt requests "Dr. Guzman" however he is not available at this time. Discussed with patient plan for Toradol, discharge home and the importance of close follow-up with her pain specialist for management of her chronic pain. Pt discharged in stable condition. Of note, at time of discharge, pt became hostile toward RN after being told she was not going to be getting requested narcotics. Pt's behavior is very concerning for drug seeking behaviors. Undiagnosed new problem with uncertain prognosis? @ -[No] Drug Therapy requiring intensive monitoring for toxicity (Heparin, Nitro, Insulin, Cardizem)? @ -[No] Were any procedures done? @ -[No] Diagnosis/symptom? @ chronic pain, drug seeking behaviors Acute, or Chronic, or Acute on Chronic? chronic Uncomplicated (without systemic symptoms) or Complicated (systemic symptoms)? uncomplicated Side effects of treatment? @ -[No] Exacerbation, Progression, or Severe Exacerbation? @ -[No] Poses a threat to life or bodily function? How? (Chest pain, [place], ID, pneumonia, PE, COPD, DKA, ARF, appy, cholecystitis, CVA, Diverticulitis, Homicidal, Suicidal, threat to staff... and all critical care pts) @ -[No] Disposition Clinical Impression: Chronic pain, Drug-seeking behavior Disposition: HOME SELF-CARE Condition: Stable Instructions (If sedation given, give patient instructions): Pain Management (ED), Chronic Pain (ED) Additional Instructions: Every disease is a spectrum and a small chance still exists that a serious condition could develop, for this reason, please monitor yourself closely for new, changing or worsening symptoms, symptoms that persist beyond 48 hours, decreasing urine output, brown or bloody urine, difficulty in breathing, fever, inability to tolerate/keep down fluids or your medications, inability to follow up with outpatient providers as instructed and should you experience these symptoms or should you have any further concerns for your wellbeing please return to the ED or call 911 immediately. PLEASE call your primary care physician and pain management doctor as soon as possible to arrange / discuss plan for followup appointment. Appointment in the next 1-3 days is strongly encouraged if possible. PLEASE let us know here before you leave if there is anything further we can do to be of any assistance. Take care and feel Better! Is patient prescribed a controlled substance at d/c from ED?: No Referrals: None,Stated [Primary Care Provider] - 1-2 days
[2024-05-03] MEDS: diphenhydrAMINE 50 MG/ML 1 ML VIAL IM STA (04:02)
[2024-05-03 04:26] VITALS: PULSE 84; RESP 18
== END 2024-05-03 04:26 | disposition home or self-care (01) ==
LOC: EC 03:14
DX: G89.29 Other chronic pain (principal); Z76.5 Malingerer [conscious simulation]; Z88.1 Allergy status to other antibiotic agents; Z88.5 Allergy status to narcotic agent; Z91.013 Allergy to seafood; Z88.8 Allergy status to other drugs, medicaments and biological substances; Z91.09 Other allergy status, other than to drugs and biological substances; Z88.6 Allergy status to analgesic agent
CPT/HCPCS: 99284; 96372 ×2; J1200; J1885

== ENCOUNTER 2024-05-28 02:09 | Emergency (ER) | payer MEDICARE, OTHER ==
[2024-05-28 02:13] VITALS: TEMP 97.6
--- NOTE | 2024-05-28 02:40 | ED ---
General Adult HPI - General Chief complaint: Nausea/Vomiting/Diarrhea Stated complaint: Withdraw Time Seen by Provider: 05/28/24 02:22 Source: patient Mode of arrival: ambulatory Limitations: no limitations - History of Present Illness Initial comments: 38-year-old female presenting with chief complaint of opioid withdrawal. Patient reports that she no longer has her pain pump. She was previously on fentanyl patches but states that they are irritating her skin so she returned them to her provider, states that she was supposed to be sent Dilaudid pills but they are not at the pharmacy. She admits to nausea, vomiting, body aches, diarrhea, headache, anxiety. - Related Data Home Medications Medication Instructions Recorded Confirmed Medroxyprogesterone Acetate 150 mg IM Q84D 11/22/13 10/07/20 [Depo-Provera] rOPINIRole HCL [Requip] 1 mg PO BID@0900,1200 11/22/13 10/07/20 Pentosan Polysulfate Sodium 100 mg PO DAILY 02/10/15 10/07/20 [Elmiron] HYDROcodone/APAP 7.5-325MG [[place] 1 tab PO BID 07/20/16 10/07/20 7.5-325] Paliperidone IM Pt Own [Invega 117 mg IM Q28D 07/20/16 10/07/20 Sustenna] amantadine HCL [Symmetrel] 100 mg PO BID 11/21/16 10/07/20 Albuterol Sulfate [Proair Hfa] 2 puff INHALATION RT-QID PRN 01/13/18 10/07/20 Butalb/Acetaminophen/Caffeine 1 tab PO Q8H PRN 01/13/18 10/07/20 [Fioricet 50-325-40] Fluticasone Propionate [Flovent 1 puff INHALATION RT-BID 01/13/18 10/07/20 Hfa 110 mcg] gemfibroziL [Lopid] 600 mg PO BID 01/13/18 10/07/20 Gabapentin [Neurontin] 300 mg PO TID 03/11/18 10/07/20 Gabapentin [Neurontin] 600 mg PO TID 09/16/19 10/07/20 Omeprazole [PriLOSEC] 40 mg PO DAILY 09/16/19 10/07/20 rOPINIRole HCL [Requip] 2 mg PO HS 09/16/19 10/07/20 traZODone HCL 300 mg PO HS 09/16/19 10/07/20 hydrOXYzine pamoate 25 mg PO BID 04/13/20 10/07/20 Cyclobenzaprine [Flexeril] 10 mg PO TID PRN 08/16/20 10/07/20 Fentanyl/Bupivcaine Pain Pump 1 dose INTRATHECA CONTINUOUS 08/16/20 10/07/20 Ibuprofen [Motrin] 600 mg PO TID PRN 10/07/20 10/07/20 diphenhydrAMINE [Benadryl] 50 mg PO DAILY PRN 10/07/20 10/07/20 Previous Rx's Medication Instructions Recorded Erythromycin Ophth Oint [Romycin 1 applic RIGHT EYE QID #1 bottle 10/03/20 Ophth Oint] Ondansetron Odt [Zofran Odt] 4 mg PO Q8HR PRN #14 tab 10/16/20 Ondansetron Odt [Zofran Odt] 4 mg PO Q8HR PRN #10 tab 06/21/21 predniSONE [Deltasone] 20 mg PO BID #10 tab 09/08/21 Cephalexin [Keflex] 500 mg PO Q8HR 7 Days #21 cap 11/25/21 Fluconazole [Diflucan] 150 mg PO ONCE #1 tab 11/25/21 Amoxic-Pot Clav 875-125Mg 1 tab PO Q12HR 7 Days #14 tab 05/02/23 [Augmentin 875-125] Ondansetron Odt [Zofran Odt] 8 mg PO Q8HR #9 tab 10/14/23 Ketorolac [Toradol] 10 mg PO Q8HR #15 tab 12/20/23 diphenhydrAMINE [Benadryl] 50 mg PO QID PRN #20 capsule 12/20/23 clindamycin HCL 300 mg PO QID #40 cap 12/29/23 Cephalexin [Keflex] 500 mg PO Q6HR 7 Days #28 cap 01/21/24 Albuterol Nebulized [Ventolin 2.5 mg INHALATION Q4H #75 ml 02/10/24 Nebulized] methylPREDNISolone Dose Pack 4 mg PO DIRECTED #21 packet 02/10/24 [Medrol Dose Pack] Allergies Allergy/AdvReac Type Severity Reaction Status Date / Time azithromycin Allergy Rash/Hives Verified 05/28/24 02:13 [From Zithromax Z-Mehrdad] cimetidine [From Tagamet] Allergy Rash/Hives Verified 05/28/24 02:13 codeine Allergy Nausea & Verified 05/28/24 02:13 Vomiting ether [Ether] Allergy Anaphylaxis Verified 05/28/24 02:13 Fish Containing Products Allergy Anaphylaxis Verified 05/28/24 02:13 [Fish] ibuprofen [From Motrin] Allergy Rash/Hives Verified 05/28/24 02:13 morphine Allergy Unknown Verified 05/28/24 02:13 NSAIDS (Non-Steroidal Allergy Rash/Hives Verified 05/28/24 02:13 Anti-Inflamma ziprasidone HCl [From Geodon] Allergy Extrapyramidal Verified 05/28/24 02:13 Symptoms ciprofloxacin [From Cipro] AdvReac Rash/Hives Verified 05/28/24 02:13 fluphenazine HCl AdvReac Extrapyramidal Verified 05/28/24 02:13 [From Prolixin] Symptoms haloperidol [From Haldol] AdvReac Extrapyramidal Verified 05/28/24 02:13 Symptoms Sulfa (Sulfonamide AdvReac Nausea & Verified 05/28/24 02:13 Antibiotics) Vomiting Review of Systems ROS Statement: Those systems with pertinent positive or pertinent negative responses have been documented in the HPI. ROS Other: All systems not noted in ROS Statement are negative. Past Medical History Past Medical History: Asthma, GERD/Reflux, Hyperlipidemia, Musculoskeletal Disorder, Neurologic Disorder, Osteoarthritis (OA), Seizure Disorder Additional Past Medical History / Comment(s): RSD-DERIC FEET, INTERSTITIAL CYSTITIS, BRONCHITIS, HEMORRHOIDS,MIGRAINES, INSOMNIA. VERTIGO, last seizure 4 years ago, complex regional pain syndrome, RLS. History of Any Multi-Drug Resistant Organisms: MRSA Date of last positivie culture/infection: 04/20/15 MDRO Source:: Left Axilla Past Surgical History: Adenoidectomy, Back Surgery, Cholecystectomy, Orthopedic Surgery, Tonsillectomy Additional Past Surgical History / Comment(s): bilateral foot surgery d/t rsd, numerous pain clinic procedures, nerve stimulator in back to tx RSD placed in Nov 11 2015, pain pump placement, replacement of stimulator 06/2021, replacement of pain pump. Past Anesthesia/Blood Transfusion Reactions: Previous Problems w/ Anesthesia Additional Past Anesthesia/Blood Transfusion Reaction / Comment(s): Pt recieved blood when she was 2 yrs old after tonsillectomy. WHEN BABY HEART STOPPED TWICE- PT STATED SHE WAS ALLERGIC TO ETHER. Past Psychological History: Anxiety, Bipolar, Depression, PTSD Smoking Status: Never smoker Past Alcohol Use History: None Reported Past Drug Use History: Marijuana - Past Family History Father History Unknown: Yes Family Medical History: Diabetes Mellitus Mother Family Medical History: Cancer, CVA/TIA, Diabetes Mellitus, Myocardial Infarction ([place]) Additional Family Medical History / Comment(s): Mother has had 5 CVAs, 3 MIs and UTERINE CANCER General Exam Limitations: no limitations General appearance: alert, in no apparent distress Head exam: Present: atraumatic, normocephalic, normal inspection Eye exam: Present: normal appearance, EOMI Neck exam: Present: normal inspection. Absent: meningismus Respiratory exam: Absent: respiratory distress Cardiovascular Exam: Present: tachycardia Neurological exam: Present: alert, oriented X3 Psychiatric exam: Present: normal affect, normal mood Skin exam: Present: warm, dry, normal color Course Vital Signs 05/28/24 02:11 Temperature 97.6 F Pulse Rate 115 H Respiratory 20 Rate Blood Pressure 142/94 O2 Sat by Pulse 99 Oximetry Medical Decision Making - Medical Decision Making Was pt. sent in by a medical professional or institution ([facility], REAL TIME TRADER, urgent care, hospital, or group home...) When possible be specific @ -No Did you speak to anyone other than the patient for history (EMS, parent, family, police, friend...)? What history was obtained from this source @ -No Did you review nursing and triage notes (agree or disagree)? Why? @ -I reviewed and agree with nursing and triage notes Were old charts reviewed (outside hosp., previous admission, EMS record, old EKG, old radiological studies, urgent care reports/EKG's, group home records)? Report findings @ -No old charts were reviewed Differential Diagnosis (chest pain, altered mental status, abdominal pain women, abdominal pain men, vaginal bleeding, weakness, fever, dyspnea, syncope, headache, dizziness, GI bleed, back pain, seizure, CVA, palpatations, mental health, musculoskeletal)? @ -Differential includes opioid withdrawal, gastroenteritis, influenza, not an all-inclusive list EKG interpreted by me (3pts min.). @ -As above X-rays interpreted by me (1pt min.). @ -None done CT interpreted by me (1pt min.). @ -None done U/S interpreted by me (1pt. min.). @ -None done What testing was considered but not performed or refused? (CT, X-rays, U/S, labs)? Why? @ -None What meds were considered but not given or refused? Why? @ -None Did you discuss the management of the patient with other professionals (professionals i.e. [employer], PA, REAL TIME TRADER, lab, RT, psych nurse, renal social worker, blackener, teacher, gunnery/ordnance officer, skilled nursing case manager)? Give summary @ -No Was smoking cessation discussed for >3mins.? @ -No Was critical care preformed (if so, how long)? @ -No Were there social determinants of health that impacted care today? How? (Homelessness, low income, unemployed, alcoholism, drug addiction, transportation, low edu. Level, literacy, decrease access to med. care, [facility], rehab)? @ -No Was there de-escalation of care discussed even if they declined (Discuss DNR or withdrawal of care, Hospice)? DNR status @ -No What co-morbidities impacted this encounter? (DM, HTN, Smoking, COPD, CAD, Cancer, CVA, ARF, Chemo, Hep., AIDS, mental health diagnosis, sleep apnea, morbid obesity)? @ -None Was patient admitted / discharged? Hospital course, mention meds given and rout e, prescriptions, significant lab abnormalities, going to OR and other pertinent info. @ -38-year-old female presenting with chief complaint of opioid withdrawal. Complains of nausea, vomiting, diarrhea, body aches, headache, anxiety. She is treated with Zofran for nausea and Ativan for anxiety. Follow-up with PCP. Report back to ER with any new or worsening symptoms. Discussed return parame ters and answered all questions. Patient conveyed verbal understanding and agreed to the plan. I discussed this case in detail with my attending Dr. Hernandez Undiagnosed new problem with uncertain prognosis? @ -No Drug Therapy requiring intensive monitoring for toxicity (Heparin, Nitro, Insulin, Cardizem)? @ -No Were any procedures done? @ -No Diagnosis/symptom? @ -Opioid withdrawal Acute, or Chronic, or Acute on Chronic? @ -Acute Uncomplicated (without systemic symptoms) or Complicated (systemic symptoms)? @ -Uncomplicated Side effects of treatment? @ -No Exacerbation, Progression, or Severe Exacerbation? @ -No Poses a threat to life or bodily function? How? (Chest pain, [place], [place], pneumonia, PE, COPD, DKA, ARF, appy, cholecystitis, CVA, Diverticulitis, Homicidal, Suicidal, threat to staff... and all critical care pts) @ -No Disposition Clinical Impression: Opioid withdrawal Disposition: HOME SELF-CARE Condition: Fair Instructions (If sedation given, give patient instructions): Opioid Withdrawal (ED) Additional Instructions: Follow-up with PCP. Report back to ER with any new or worsening symptoms. Is patient prescribed a controlled substance at d/c from ED?: No Referrals: None,Stated [Primary Care Provider] - 1-2 days Forms: Area PCPs Time of Disposition: 02:40
[2024-05-28] MEDS: ONDANSETRON 4 MG/2 ML VIAL IM STA (02:56)
[2024-05-28] MEDS: LORazepam 2 MG/ML INJ IM STA (03:02)
[2024-05-28 03:11] VITALS: BP 133/89; PULSE 97; RESP 15
== END 2024-05-28 03:11 | disposition home or self-care (01) ==
LOC: EC 02:09
DX: F11.23 Opioid dependence with withdrawal (principal); Z88.6 Allergy status to analgesic agent; Z88.5 Allergy status to narcotic agent; Z88.1 Allergy status to other antibiotic agents; Z88.8 Allergy status to other drugs, medicaments and biological substances; Z88.2 Allergy status to sulfonamides; Z91.013 Allergy to seafood
CPT/HCPCS: 99283; 96372 ×2; J2060; J2405

== ENCOUNTER 2024-06-27 18:16 | Emergency (ER) | payer MEDICARE, OTHER ==
[2024-06-27 18:20] VITALS: RESP 18; TEMP 97.8
--- NOTE | 2024-06-27 18:37 | ED ---
Allergic Reaction HPI - General Chief complaint: Allergic Reaction Stated complaint: allergic reaction Time Seen by Provider: 06/27/24 18:31 Source: patient, RN notes reviewed, old records reviewed Mode of arrival: ambulatory Limitations: no limitations - History of Present Illness Initial Comments: This is a 38 female to the ER for evaluation of allergic reaction. Patient has known fish and seafood allergy and accidentally mixed up her food today and ate some sort of seafood containing products, patient presents with facial swelling redness neck swelling redness no shortness of breath MD Complaint: allergic reaction, facial swelling -: hour(s) Exposure: food Symptoms: rash, itching, facial swelling, lip swelling Severity: moderate Treatment Prior to Arrival: benadryl Previous Allergy History: none - Related Data Home Medications Medication Instructions Recorded Confirmed Medroxyprogesterone Acetate 150 mg IM Q84D 11/22/13 10/07/20 [Depo-Provera] rOPINIRole HCL [Requip] 1 mg PO BID@0900,1200 11/22/13 10/07/20 Pentosan Polysulfate Sodium 100 mg PO DAILY 02/10/15 10/07/20 [Elmiron] HYDROcodone/APAP 7.5-325MG [[place] 1 tab PO BID 07/20/16 10/07/20 7.5-325] Paliperidone IM Pt Own [Invega 117 mg IM Q28D 07/20/16 10/07/20 Sustenna] amantadine HCL [Symmetrel] 100 mg PO BID 11/21/16 10/07/20 Albuterol Sulfate [Proair Hfa] 2 puff INHALATION RT-QID PRN 01/13/18 10/07/20 Butalb/Acetaminophen/Caffeine 1 tab PO Q8H PRN 01/13/18 10/07/20 [Fioricet 50-325-40] Fluticasone Propionate [Flovent 1 puff INHALATION RT-BID 01/13/18 10/07/20 Hfa 110 mcg] gemfibroziL [Lopid] 600 mg PO BID 01/13/18 10/07/20 Gabapentin [Neurontin] 300 mg PO TID 03/11/18 10/07/20 Gabapentin [Neurontin] 600 mg PO TID 09/16/19 10/07/20 Omeprazole [PriLOSEC] 40 mg PO DAILY 09/16/19 10/07/20 rOPINIRole HCL [Requip] 2 mg PO HS 09/16/19 10/07/20 traZODone HCL 300 mg PO HS 09/16/19 10/07/20 hydrOXYzine pamoate 25 mg PO BID 04/13/20 10/07/20 Cyclobenzaprine [Flexeril] 10 mg PO TID PRN 08/16/20 10/07/20 Fentanyl/Bupivcaine Pain Pump 1 dose INTRATHECA CONTINUOUS 08/16/20 10/07/20 Ibuprofen [Motrin] 600 mg PO TID PRN 10/07/20 10/07/20 diphenhydrAMINE [Benadryl] 50 mg PO DAILY PRN 10/07/20 10/07/20 Previous Rx's Medication Instructions Recorded Erythromycin Ophth Oint [Romycin 1 applic RIGHT EYE QID #1 bottle 10/03/20 Ophth Oint] Ondansetron Odt [Zofran Odt] 4 mg PO Q8HR PRN #14 tab 10/16/20 Ondansetron Odt [Zofran Odt] 4 mg PO Q8HR PRN #10 tab 06/21/21 predniSONE [Deltasone] 20 mg PO BID #10 tab 09/08/21 Cephalexin [Keflex] 500 mg PO Q8HR 7 Days #21 cap 11/25/21 Fluconazole [Diflucan] 150 mg PO ONCE #1 tab 11/25/21 Amoxic-Pot Clav 875-125Mg 1 tab PO Q12HR 7 Days #14 tab 05/02/23 [Augmentin 875-125] Ondansetron Odt [Zofran Odt] 8 mg PO Q8HR #9 tab 10/14/23 Ketorolac [Toradol] 10 mg PO Q8HR #15 tab 12/20/23 diphenhydrAMINE [Benadryl] 50 mg PO QID PRN #20 capsule 12/20/23 clindamycin HCL 300 mg PO QID #40 cap 12/29/23 Cephalexin [Keflex] 500 mg PO Q6HR 7 Days #28 cap 01/21/24 Albuterol Nebulized [Ventolin 2.5 mg INHALATION Q4H #75 ml 02/10/24 Nebulized] methylPREDNISolone Dose Pack 4 mg PO DIRECTED #21 packet 02/10/24 [Medrol Dose Pack] Famotidine [Pepcid] 40 mg PO BID #28 tablet 06/27/24 predniSONE 50 mg PO DAILY #5 tab 06/27/24 Allergies Allergy/AdvReac Type Severity Reaction Status Date / Time azithromycin Allergy Rash/Hives Verified 06/27/24 18:20 [From Zithromax Z-Mehrdad] cimetidine [From Tagamet] Allergy Rash/Hives Verified 06/27/24 18:20 codeine Allergy Nausea & Verified 06/27/24 18:20 Vomiting ether [Ether] Allergy Anaphylaxis Verified 06/27/24 18:20 Fish Containing Products Allergy Anaphylaxis Verified 06/27/24 18:20 [Fish] ibuprofen [From Motrin] Allergy Rash/Hives Verified 06/27/24 18:20 morphine Allergy Unknown Verified 06/27/24 18:20 NSAIDS (Non-Steroidal Allergy Rash/Hives Verified 06/27/24 18:20 Anti-Inflamma ziprasidone HCl [From Geodon] Allergy Extrapyramidal Verified 06/27/24 18:20 Symptoms ciprofloxacin [From Cipro] AdvReac Rash/Hives Verified 06/27/24 18:20 fluphenazine HCl AdvReac Extrapyramidal Verified 06/27/24 18:20 [From Prolixin] Symptoms haloperidol [From Haldol] AdvReac Extrapyramidal Verified 06/27/24 18:20 Symptoms Sulfa (Sulfonamide AdvReac Nausea & Verified 06/27/24 18:20 Antibiotics) Vomiting Review of Systems ROS Statement: Those systems with pertinent positive or pertinent negative responses have been documented in the HPI. ROS Other: All systems not noted in ROS Statement are negative. Past Medical History Past Medical History: Asthma, GERD/Reflux, Hyperlipidemia, Musculoskeletal Disorder, Neurologic Disorder, Osteoarthritis (OA), Seizure Disorder Additional Past Medical History / Comment(s): RSD-DERIC FEET, INTERSTITIAL CYSTITIS, BRONCHITIS, HEMORRHOIDS,MIGRAINES, INSOMNIA. VERTIGO, last seizure 4 years ago, complex regional pain syndrome, RLS. History of Any Multi-Drug Resistant Organisms: MRSA Date of last positivie culture/infection: 04/20/15 MDRO Source:: Left Axilla Past Surgical History: Adenoidectomy, Back Surgery, Cholecystectomy, Orthopedic Surgery, Tonsillectomy Additional Past Surgical History / Comment(s): bilateral foot surgery d/t rsd, numerous pain clinic procedures, nerve stimulator in back to tx RSD placed in Nov 11 2015, pain pump placement, replacement of stimulator 06/2021, replacement of pain pump. Past Anesthesia/Blood Transfusion Reactions: Previous Problems w/ Anesthesia Additional Past Anesthesia/Blood Transfusion Reaction / Comment(s): Pt recieved blood when she was 2 yrs old after tonsillectomy. WHEN BABY HEART STOPPED TWICE- PT STATED SHE WAS ALLERGIC TO ETHER. Past Psychological History: Anxiety, Bipolar, Depression, PTSD Smoking Status: Never smoker Past Alcohol Use History: None Reported Past Drug Use History: Marijuana - Past Family History Father History Unknown: Yes Family Medical History: Diabetes Mellitus Mother Family Medical History: Cancer, CVA/TIA, Diabetes Mellitus, Myocardial Infarction ([place]) Additional Family Medical History / Comment(s): Mother has had 5 CVAs, 3 MIs and UTERINE CANCER General Exam Limitations: no limitations General appearance: alert, in no apparent distress Head exam: Present: atraumatic, normocephalic, normal inspection Eye exam: Present: normal appearance, PERRL, EOMI. Absent: scleral icterus, conjunctival injection, periorbital swelling ENT exam: Present: normal exam, mucous membranes moist Neck exam: Present: normal inspection. Absent: tenderness, meningismus, lymphadenopathy Respiratory exam: Present: normal lung sounds bilaterally. Absent: respiratory distress, wheezes, rales, rhonchi, stridor Cardiovascular Exam: Present: regular rate, normal rhythm, normal heart sounds. Absent: systolic murmur, diastolic murmur, rubs, gallop, clicks GI/Abdominal exam: Present: soft, normal bowel sounds. Absent: distended, tenderness, guarding, rebound, rigid Extremities exam: Present: normal inspection, full ROM, normal capillary refill. Absent: tenderness, pedal edema, joint swelling, calf tenderness Back exam: Present: normal inspection Neurological exam: Present: alert, oriented X3, CN II-XII intact Psychiatric exam: Present: normal affect, normal mood Skin exam: Present: warm, dry, intact, normal color. Absent: rash Course Vital Signs 06/27/24 18:17 Temperature 97.8 F Pulse Rate 106 H Respiratory 18 Rate Blood Pressure 165/88 O2 Sat by Pulse 99 Oximetry - Reevaluation(s) Reevaluation #1: 06/27/24 19:52 Medical record is reviewed Reevaluation #2: 06/27/24 19:52 Patient symptoms dramatically improved Reevaluation #3: 06/27/24 19:52 Patient informed of results questions answered Reevaluation #4: Was pt. sent in by a medical professional or institution (, [facility], REHABILITATION PHYSICIAN, urgent care, hospital, or [facility]...) When possible be specific @ -no Did you speak to anyone other than the patient for history (EMS, parent, family, police, friend...)? What history was obtained from this source @ -no Did you review nursing and triage notes (agree or disagree)? Why? @ -agree Are old charts reviewed (outside hosp., previous admission, EMS record, old EKG, old radiological studies, urgent care reports/EKG's, [facility] records)? Report findings @ -yes Differential Diagnosis (chest pain, altered mental status, abdominal pain women, abdominal pain men, vaginal bleeding, weakness, fever, dyspnea, syncope, headache, dizziness, GI bleed, back pain, seizure, CVA, palpatations, mental health, musculoskeletal)? @ -prior EKG interpreted by me (3pts min.). @ -yes X-rays interpreted by me (1pt min.). @ -yes negative for acute disease CT interpreted by me (1pt min.). @ -no U/S interpreted by me (1pt. min.). @ -no What testing was considered but not performed or refused? (CT, X-rays, U/S, labs)? Why? @ -none What meds were considered but not given or refused? Why? @ -none Did you discuss the management of the patient with other professionals (professionals i.e. , [facility], REHABILITATION PHYSICIAN, lab, RT, psych nurse, social services manager, color making supervisor, teacher, deputy juvenile officer, pillowcase cutter)? Give summary @ -no Was smoking cessation discussed for >3mins.? @ -no Was critical care preformed (if so, how long)? @ -no Were there social determinants of health that impacted care today? How? (Homelessness, low income, unemployed, alcoholism, drug addiction, transportation, low edu. Level, literacy, decrease access to med. care, [facility], rehab)? @ -none Was there de-escalation of care discussed even if they declined (Discuss DNR or withdrawal of care, Hospice)? DNR status @ -no What co-morbidities impacted this encounter? (DM, HTN, Smoking, COPD, CAD, Cancer, CVA, ARF, Chemo, Hep., AIDS, mental health diagnosis, sleep apnea, morbid obesity)? @ -none Was patient admitted / discharged? Hospital course, mention meds given and route, prescriptions, significant lab abnormalities, going to OR and other pertinent info. @ - Undiagnosed new problem with uncertain prognosis? @ -no Drug Therapy requiring intensive monitoring for toxicity (Heparin, Nitro, Insulin, Cardizem)? @ -no Were any procedures done? @ -no Diagnosis/symptom? @ - Acute, or Chronic, or Acute on Chronic? @ -Acute Uncomplicated (without systemic symptoms) or Complicated (systemic symptoms)? @ -Complicated Side effects of treatment? @ -no Exacerbation, Progression, or Severe Exacerbation? @ -exacerbation Poses a threat to life or bodily function? How? (Chest pain, [place], [place], pneumonia, PE, COPD, DKA, ARF, appy, cholecystitis, CVA, Diverticulitis, Homicidal, Suicidal, threat to staff... and all critical care pts) @ -yes Medical Decision Making - Medical Decision Making 38 female with allergic reaction, symptoms resolved here in the ER no respiratory distress patient can be discharged home Disposition Clinical Impression: Allergic reaction, Food allergy Disposition: HOME SELF-CARE Condition: Fair Instructions (If sedation given, give patient instructions): Anaphylaxis (ED) Prescriptions: Famotidine [Pepcid] 40 mg PO BID #28 tablet predniSONE 50 mg PO DAILY #5 tab Is patient prescribed a controlled substance at d/c from ED?: No Referrals: None,Stated [Primary Care Provider] - 1-2 days Time of Disposition: 19:00
[2024-06-27] MEDS: FAMOTIDINE 20 MG/2 ML VIAL IV STA (18:55)
[2024-06-27] MEDS: DEXAMETHASONE SOD PHOSPHATE 10 MG/ML 1 ML VIAL IVP STA (18:55)
[2024-06-27] MEDS: SODIUM CHLORIDE 0.9% 500 ML 500 ML IV ONE (18:56)
[2024-06-27] MEDS: diphenhydrAMINE 50 MG/ML 1 ML VIAL IVP STA (18:56)
[2024-06-27] MEDS: hydrOXYzine HCL 25 MG TAB PO STA (19:11)
[2024-06-27] MEDS: predniSONE 20 MG TAB PO STA (19:52)
[2024-06-27] MEDS ORDERED: KETOROLAC 15 MG/ML 1 ML VIAL IVP STA (20:00)
[2024-06-27 20:10] VITALS: BP 148/80; PULSE 100
== END 2024-06-27 20:10 | disposition home or self-care (01) ==
LOC: EC 18:16
DX: T78.1XXA Other adverse food reactions, not elsewhere classified, initial encounter (principal); Z91.013 Allergy to seafood; Z88.1 Allergy status to other antibiotic agents; Z88.5 Allergy status to narcotic agent; Z88.2 Allergy status to sulfonamides; Z88.6 Allergy status to analgesic agent; Z88.8 Allergy status to other drugs, medicaments and biological substances
CPT/HCPCS: 99283; 96374; 96375 ×2; 96361; J1200; J1100; J3490; J7512

== ENCOUNTER 2024-07-26 22:03 | Emergency (ER) | payer MEDICARE, OTHER ==
--- NOTE | 2024-07-26 22:17 | ED ---
Headache HPI - General Chief Complaint: Headache Stated Complaint: Neck pain Time Seen by Provider: 07/26/24 22:11 Source: RN notes reviewed, old records reviewed Mode of arrival: ambulatory Limitations: no limitations - History of Present Illness Initial Comments: This is a 38-year-old female well-known to this ER for chronic migraine headaches. Patient presents today for severe headache with nausea vomiting unable to take down home medications secondary to nausea and vomiting here for headache relief, no traumas no fevers no other new complaints MD Complaint: headache, "migraine" -: days(s) Onset Description: gradual Location: right, left, temporal Severity: severe Severity scale (1-10): 10 Quality: aching, throbbing Consistency: constant Improves With: nothing Worsens With: none Associated Symptoms: nausea, vomiting Treatments Prior to Arrival: none - Related Data Home Medications Medication Instructions Recorded Confirmed Medroxyprogesterone Acetate 150 mg IM Q84D 11/22/13 10/07/20 [Depo-Provera] rOPINIRole HCL [Requip] 1 mg PO BID@0900,1200 11/22/13 10/07/20 Pentosan Polysulfate Sodium 100 mg PO DAILY 02/10/15 10/07/20 [Elmiron] HYDROcodone/APAP 7.5-325MG [[place] 1 tab PO BID 07/20/16 10/07/20 7.5-325] Paliperidone IM Pt Own [Invega 117 mg IM Q28D 07/20/16 10/07/20 Sustenna] amantadine HCL [Symmetrel] 100 mg PO BID 11/21/16 10/07/20 Albuterol Sulfate [Proair Hfa] 2 puff INHALATION RT-QID PRN 01/13/18 10/07/20 Butalb/Acetaminophen/Caffeine 1 tab PO Q8H PRN 01/13/18 10/07/20 [Fioricet 50-325-40] Fluticasone Propionate [Flovent 1 puff INHALATION RT-BID 01/13/18 10/07/20 Hfa 110 mcg] gemfibroziL [Lopid] 600 mg PO BID 01/13/18 10/07/20 Gabapentin [Neurontin] 300 mg PO TID 03/11/18 10/07/20 Gabapentin [Neurontin] 600 mg PO TID 09/16/19 10/07/20 Omeprazole [PriLOSEC] 40 mg PO DAILY 09/16/19 10/07/20 rOPINIRole HCL [Requip] 2 mg PO HS 09/16/19 10/07/20 traZODone HCL 300 mg PO HS 09/16/19 10/07/20 hydrOXYzine pamoate 25 mg PO BID 04/13/20 10/07/20 Cyclobenzaprine [Flexeril] 10 mg PO TID PRN 08/16/20 10/07/20 Fentanyl/Bupivcaine Pain Pump 1 dose INTRATHECA CONTINUOUS 08/16/20 10/07/20 Ibuprofen [Motrin] 600 mg PO TID PRN 10/07/20 10/07/20 diphenhydrAMINE [Benadryl] 50 mg PO DAILY PRN 10/07/20 10/07/20 Previous Rx's Medication Instructions Recorded Erythromycin Ophth Oint [Romycin 1 applic RIGHT EYE QID #1 bottle 10/03/20 Ophth Oint] Ondansetron Odt [Zofran Odt] 4 mg PO Q8HR PRN #14 tab 10/16/20 Ondansetron Odt [Zofran Odt] 4 mg PO Q8HR PRN #10 tab 06/21/21 predniSONE [Deltasone] 20 mg PO BID #10 tab 09/08/21 Cephalexin [Keflex] 500 mg PO Q8HR 7 Days #21 cap 11/25/21 Fluconazole [Diflucan] 150 mg PO ONCE #1 tab 11/25/21 Amoxic-Pot Clav 875-125Mg 1 tab PO Q12HR 7 Days #14 tab 05/02/23 [Augmentin 875-125] Ondansetron Odt [Zofran Odt] 8 mg PO Q8HR #9 tab 10/14/23 Ketorolac [Toradol] 10 mg PO Q8HR #15 tab 12/20/23 diphenhydrAMINE [Benadryl] 50 mg PO QID PRN #20 capsule 12/20/23 clindamycin HCL 300 mg PO QID #40 cap 12/29/23 Cephalexin [Keflex] 500 mg PO Q6HR 7 Days #28 cap 01/21/24 Albuterol Nebulized [Ventolin 2.5 mg INHALATION Q4H #75 ml 02/10/24 Nebulized] methylPREDNISolone Dose Pack 4 mg PO DIRECTED #21 packet 02/10/24 [Medrol Dose Pack] Famotidine [Pepcid] 40 mg PO BID #28 tablet 06/27/24 predniSONE 50 mg PO DAILY #5 tab 06/27/24 Allergies Allergy/AdvReac Type Severity Reaction Status Date / Time azithromycin Allergy Rash/Hives Verified 07/26/24 22:07 [From Zithromax Z-Mehrdad] cimetidine [From Tagamet] Allergy Rash/Hives Verified 07/26/24 22:07 codeine Allergy Nausea & Verified 07/26/24 22:07 Vomiting ether [Ether] Allergy Anaphylaxis Verified 07/26/24 22:07 Fish Containing Products Allergy Anaphylaxis Verified 07/26/24 22:07 [Fish] ibuprofen [From Motrin] Allergy Rash/Hives Verified 07/26/24 22:07 morphine Allergy Unknown Verified 07/26/24 22:07 NSAIDS (Non-Steroidal Allergy Rash/Hives Verified 07/26/24 22:07 Anti-Inflamma ziprasidone HCl [From Geodon] Allergy Extrapyramidal Verified 07/26/24 22:07 Symptoms ciprofloxacin [From Cipro] AdvReac Rash/Hives Verified 07/26/24 22:07 fluphenazine HCl AdvReac Extrapyramidal Verified 07/26/24 22:07 [From Prolixin] Symptoms haloperidol [From Haldol] AdvReac Extrapyramidal Verified 07/26/24 22:07 Symptoms Sulfa (Sulfonamide AdvReac Nausea & Verified 07/26/24 22:07 Antibiotics) Vomiting Review of Systems ROS Statement: Those systems with pertinent positive or pertinent negative responses have been documented in the HPI. ROS Other: All systems not noted in ROS Statement are negative. Past Medical History Past Medical History: Asthma, GERD/Reflux, Hyperlipidemia, Musculoskeletal Disorder, Neurologic Disorder, Osteoarthritis (OA), Seizure Disorder Additional Past Medical History / Comment(s): RSD-DERIC FEET, INTERSTITIAL CYSTITIS, BRONCHITIS, HEMORRHOIDS,MIGRAINES, INSOMNIA. VERTIGO, last seizure 4 years ago, complex regional pain syndrome, RLS. History of Any Multi-Drug Resistant Organisms: MRSA Date of last positivie culture/infection: 04/20/15 MDRO Source:: Left Axilla Past Surgical History: Adenoidectomy, Back Surgery, Cholecystectomy, Orthopedic Surgery, Tonsillectomy Additional Past Surgical History / Comment(s): bilateral foot surgery d/t rsd, numerous pain clinic procedures, nerve stimulator in back to tx RSD placed in Nov 11 2015, pain pump placement, replacement of stimulator 06/2021, replacement of pain pump. Past Anesthesia/Blood Transfusion Reactions: Previous Problems w/ Anesthesia Additional Past Anesthesia/Blood Transfusion Reaction / Comment(s): Pt recieved blood when she was 2 yrs old after tonsillectomy. WHEN BABY HEART STOPPED TWICE- PT STATED SHE WAS ALLERGIC TO ETHER. Past Psychological History: Anxiety, Bipolar, Depression, PTSD Smoking Status: Never smoker Past Alcohol Use History: None Reported Past Drug Use History: Marijuana - Past Family History Father History Unknown: Yes Family Medical History: Diabetes Mellitus Mother Family Medical History: Cancer, CVA/TIA, Diabetes Mellitus, Myocardial Infarction ([place]) Additional Family Medical History / Comment(s): Mother has had 5 CVAs, 3 MIs and UTERINE CANCER General Exam Limitations: no limitations General appearance: alert, in no apparent distress Head exam: Present: atraumatic, normocephalic, normal inspection Eye exam: Present: normal appearance, PERRL, EOMI. Absent: scleral icterus, conjunctival injection, periorbital swelling ENT exam: Present: normal exam, mucous membranes moist Neck exam: Present: normal inspection. Absent: tenderness, meningismus, lymphadenopathy Respiratory exam: Present: normal lung sounds bilaterally. Absent: respiratory distress, wheezes, rales, rhonchi, stridor Cardiovascular Exam: Present: regular rate, normal rhythm, normal heart sounds. Absent: systolic murmur, diastolic murmur, rubs, gallop, clicks GI/Abdominal exam: Present: soft, normal bowel sounds. Absent: distended, tenderness, guarding, rebound, rigid Extremities exam: Present: normal inspection, full ROM, normal capillary refill. Absent: tenderness, pedal edema, joint swelling, calf tenderness Back exam: Present: normal inspection Neurological exam: Present: alert, oriented X3, CN II-XII intact Psychiatric exam: Present: normal affect, normal mood Skin exam: Present: warm, dry, intact, normal color. Absent: rash Course Vital Signs 07/26/24 22:04 Temperature 97.6 F Pulse Rate 112 H Respiratory 18 Rate Blood Pressure 147/88 O2 Sat by Pulse 99 Oximetry - Reevaluation(s) Reevaluation #1: 07/26/24 22:27 Medical records reviewed Reevaluation #2: 07/26/24 22:28 Patient symptoms improved Reevaluation #3: 07/26/24 22:28 Patient informed of results questions answered Reevaluation #4: Was pt. sent in by a medical professional or institution (, [facility], LINUX ADMIN ENGINEER, urgent care, hospital, or group home...) When possible be specific @ -no Did you speak to anyone other than the patient for history (EMS, parent, family, police, friend...)? What history was obtained from this source @ -no Did you review nursing and triage notes (agree or disagree)? Why? @ -agree Are old charts reviewed (outside hosp., previous admission, EMS record, old EKG, old radiological studies, urgent care reports/EKG's, group home records)? Report findings @ -yes Differential Diagnosis (chest pain, altered mental status, abdominal pain women, abdominal pain men, vaginal bleeding, weakness, fever, dyspnea, syncope, headache, dizziness, GI bleed, back pain, seizure, CVA, palpatations, mental health, musculoskeletal)? @ -prior EKG interpreted by me (3pts min.). @ -yes X-rays interpreted by me (1pt min.). @ -yes negative for acute disease CT interpreted by me (1pt min.). @ -no U/S interpreted by me (1pt. min.). @ -no What testing was considered but not performed or refused? (CT, X-rays, U/S, labs)? Why? @ -none What meds were considered but not given or refused? Why? @ -none Did you discuss the management of the patient with other professionals (professionals i.e. [facility], LINUX ADMIN ENGINEER, lab, RT, psych nurse, outreach and education social worker, programmer operator numerical control, teacher, chief customer officer, rn case management)? Give summary @ -no Was smoking cessation discussed for >3mins.? @ -no Was critical care preformed (if so, how long)? @ -no Were there social determinants of health that impacted care today? How? (Homelessness, low income, unemployed, alcoholism, drug addiction, transpor tation, low edu. Level, literacy, decrease access to med. care, custodial, rehab)? @ -none Was there de-escalation of care discussed even if they declined (Discuss DNR or withdrawal of care, Hospice)? DNR status @ -no What co-morbidities impacted this encounter? (DM, HTN, Smoking, COPD, CAD, Cancer, CVA, ARF, Chemo, Hep., AIDS, mental health diagnosis, sleep apnea, morbid obesity)? @ -none Was patient admitted / discharged? Hospital course, mention meds given and route, prescriptions, significant lab abnormalities, going to OR and other pertinent info. @ - Undiagnosed new problem with uncertain prognosis? @ -no Drug Therapy requiring intensive monitoring for toxicity (Heparin, Nitro, Insulin, Cardizem)? @ -no Were any procedures done? @ -no Diagnosis/symptom? @ - Acute, or Chronic, or Acute on Chronic? @ -Acute Uncomplicated (without systemic symptoms) or Complicated (systemic symptoms)? @ -Complicated Side effects of treatment? @ -no Exacerbation, Progression, or Severe Exacerbation? @ -exacerbation Poses a threat to life or bodily function? How? (Chest pain, [place], [place], pneumonia, PE, COPD, DKA, ARF, appy, cholecystitis, CVA, Diverticulitis, Homicidal, Suicidal, threat to staff... and all critical care pts) @ -yes Reevaluation #5: Differential Headache: Migraine, tension, cluster, carbon monoxide, central venous thrombosis, pension karma temporal arteritis, acute closure glaucoma, intercranial hemorrhage, mastoiditis, sinusitis, head injury, this is not meant to be an all-inclusive list. Medical Decision Making - Medical Decision Making 38 female will be discharged home after headache control, feels better and can be discharged Disposition Clinical Impression: Status migrainosus, Nausea and vomiting, Chronic pain syndrome Disposition: HOME SELF-CARE Condition: Fair Instructions (If sedation given, give patient instructions): Acute Headache (ED) Is patient prescribed a controlled substance at d/c from ED?: No Referrals: Lior Clemons MD [Primary Care Provider] - 1-2 days Time of Disposition: 22:20
[2024-07-26] MEDS: HYDROmorphone 2 MG/ML 1 ML SYRINGE IM STA (22:56)
[2024-07-26] MEDS: diphenhydrAMINE 50 MG CAP PO STA (22:56)
[2024-07-26] MEDS: PROCHLORPERAZINE 10 MG TAB PO STA (22:56)
[2024-07-26] MEDS: LIDOCAINE 4% PATCH TOPICAL STA (23:02)
[2024-07-26 23:42] VITALS: BP 136/89; PULSE 96; RESP 20; TEMP 98.6
== END 2024-07-26 23:42 | disposition home or self-care (01) ==
LOC: EC 22:03
DX: G89.4 Chronic pain syndrome (principal); G43.901 Migraine, unspecified, not intractable, with status migrainosus; Z88.2 Allergy status to sulfonamides; Z88.8 Allergy status to other drugs, medicaments and biological substances; Z91.013 Allergy to seafood; Z88.6 Allergy status to analgesic agent; Z88.1 Allergy status to other antibiotic agents; Z88.5 Allergy status to narcotic agent
CPT/HCPCS: 99283; 96372; S0183; J1171

== ENCOUNTER 2024-08-31 20:24 | Emergency (ER) | payer MEDICARE, OTHER ==
--- NOTE | 2024-08-31 21:10 | ED ---
Extremity Problem HPI - General Chief complaint: Extremity Problem,Nontraumatic Stated complaint: all over pain Time Seen by Provider: 08/31/24 20:38 Source: patient, RN notes reviewed, old records reviewed Mode of arrival: ambulatory Limitations: no limitations - History of Present Illness Initial comments: This is a 38-year-old female well-known to this ER today member today presents with a chronic pain. Acute on chronic pain worse than normal, patient states she has just been not feeling well with her baseline pain levels and thinks may be change in weather versus other causes significant increase in pain MD Complaint: extremity pain, extremity swelling, joint pain Location: left, right, bilateral lower extremity Quality: stabbing Consistency: constant Improves with: nothing Worsens with: nothing Associated Symptoms: denies other symptoms - Related Data Home Medications Medication Instructions Recorded Confirmed Medroxyprogesterone Acetate 150 mg IM Q84D 11/22/13 10/07/20 [Depo-Provera] rOPINIRole HCL [Requip] 1 mg PO BID@0900,1200 11/22/13 10/07/20 Pentosan Polysulfate Sodium 100 mg PO DAILY 02/10/15 10/07/20 [Elmiron] HYDROcodone/APAP 7.5-325MG [[place] 1 tab PO BID 07/20/16 10/07/20 7.5-325] Paliperidone IM Pt Own [Invega 117 mg IM Q28D 07/20/16 10/07/20 Sustenna] amantadine HCL [Symmetrel] 100 mg PO BID 11/21/16 10/07/20 Albuterol Sulfate [Proair Hfa] 2 puff INHALATION RT-QID PRN 01/13/18 10/07/20 Butalb/Acetaminophen/Caffeine 1 tab PO Q8H PRN 01/13/18 10/07/20 [Fioricet 50-325-40] Fluticasone Propionate [Flovent 1 puff INHALATION RT-BID 01/13/18 10/07/20 Hfa 110 mcg] gemfibroziL [Lopid] 600 mg PO BID 01/13/18 10/07/20 Gabapentin [Neurontin] 300 mg PO TID 03/11/18 10/07/20 Gabapentin [Neurontin] 600 mg PO TID 09/16/19 10/07/20 Omeprazole [PriLOSEC] 40 mg PO DAILY 09/16/19 10/07/20 rOPINIRole HCL [Requip] 2 mg PO HS 09/16/19 10/07/20 traZODone HCL 300 mg PO HS 09/16/19 10/07/20 hydrOXYzine pamoate 25 mg PO BID 04/13/20 10/07/20 Cyclobenzaprine [Flexeril] 10 mg PO TID PRN 08/16/20 10/07/20 Fentanyl/Bupivcaine Pain Pump 1 dose INTRATHECA CONTINUOUS 08/16/20 10/07/20 Ibuprofen [Motrin] 600 mg PO TID PRN 10/07/20 10/07/20 diphenhydrAMINE [Benadryl] 50 mg PO DAILY PRN 10/07/20 10/07/20 Previous Rx's Medication Instructions Recorded Erythromycin Ophth Oint [Romycin 1 applic RIGHT EYE QID #1 bottle 10/03/20 Ophth Oint] Ondansetron Odt [Zofran Odt] 4 mg PO Q8HR PRN #14 tab 10/16/20 Ondansetron Odt [Zofran Odt] 4 mg PO Q8HR PRN #10 tab 06/21/21 predniSONE [Deltasone] 20 mg PO BID #10 tab 09/08/21 Cephalexin [Keflex] 500 mg PO Q8HR 7 Days #21 cap 11/25/21 Fluconazole [Diflucan] 150 mg PO ONCE #1 tab 11/25/21 Amoxic-Pot Clav 875-125Mg 1 tab PO Q12HR 7 Days #14 tab 05/02/23 [Augmentin 875-125] Ondansetron Odt [Zofran Odt] 8 mg PO Q8HR #9 tab 10/14/23 Ketorolac [Toradol] 10 mg PO Q8HR #15 tab 12/20/23 diphenhydrAMINE [Benadryl] 50 mg PO QID PRN #20 capsule 12/20/23 clindamycin HCL 300 mg PO QID #40 cap 12/29/23 Cephalexin [Keflex] 500 mg PO Q6HR 7 Days #28 cap 01/21/24 Albuterol Nebulized [Ventolin 2.5 mg INHALATION Q4H #75 ml 02/10/24 Nebulized] methylPREDNISolone Dose Pack 4 mg PO DIRECTED #21 packet 02/10/24 [Medrol Dose Pack] Famotidine [Pepcid] 40 mg PO BID #28 tablet 06/27/24 predniSONE 50 mg PO DAILY #5 tab 06/27/24 Allergies Allergy/AdvReac Type Severity Reaction Status Date / Time azithromycin Allergy Rash/Hives Verified 09/09/24 20:49 [From Zithromax Z-Mehrdad] cimetidine [From Tagamet] Allergy Rash/Hives Verified 09/09/24 20:49 codeine Allergy Nausea & Verified 09/09/24 20:49 Vomiting ether [Ether] Allergy Anaphylaxis Verified 09/09/24 20:49 Fish Containing Products Allergy Anaphylaxis Verified 09/09/24 20:49 [Fish] ibuprofen [From Motrin] Allergy Rash/Hives Verified 09/09/24 20:49 morphine Allergy Unknown Verified 09/09/24 20:49 NSAIDS (Non-Steroidal Allergy Rash/Hives Verified 09/09/24 20:49 Anti-Inflamma ziprasidone HCl [From Geodon] Allergy Extrapyramidal Verified 09/09/24 20:49 Symptoms ciprofloxacin [From Cipro] AdvReac Rash/Hives Verified 09/09/24 20:49 fluphenazine HCl AdvReac Extrapyramidal Verified 09/09/24 20:49 [From Prolixin] Symptoms haloperidol [From Haldol] AdvReac Extrapyramidal Verified 09/09/24 20:49 Symptoms Sulfa (Sulfonamide AdvReac Nausea & Verified 09/09/24 20:49 Antibiotics) Vomiting Review of Systems ROS Statement: Those systems with pertinent positive or pertinent negative responses have been documented in the HPI. ROS Other: All systems not noted in ROS Statement are negative. Past Medical History Past Medical History: Asthma, GERD/Reflux, Hyperlipidemia, Musculoskeletal Disorder, Neurologic Disorder, Osteoarthritis (OA), Seizure Disorder Additional Past Medical History / Comment(s): RSD-DERIC FEET, INTERSTITIAL CYSTITIS, BRONCHITIS, HEMORRHOIDS,MIGRAINES, INSOMNIA. VERTIGO, last seizure 4 years ago, complex regional pain syndrome, RLS. History of Any Multi-Drug Resistant Organisms: MRSA Date of last positivie culture/infection: 04/20/15 MDRO Source:: Left Axilla Past Surgical History: Adenoidectomy, Back Surgery, Cholecystectomy, Orthopedic Surgery, Tonsillectomy Additional Past Surgical History / Comment(s): bilateral foot surgery d/t rsd, numerous pain clinic procedures, nerve stimulator in back to tx RSD placed in Nov 11 2015, pain pump placement, replacement of stimulator 06/2021, replacement of pain pump. Past Anesthesia/Blood Transfusion Reactions: Previous Problems w/ Anesthesia Additional Past Anesthesia/Blood Transfusion Reaction / Comment(s): Pt recieved blood when she was 2 yrs old after tonsillectomy. WHEN BABY HEART STOPPED TWICE-PT STATED SHE WAS ALLERGIC TO ETHER. Past Psychological History: Anxiety, Bipolar, Depression, PTSD Smoking Status: Never smoker Past Alcohol Use History: None Reported Past Drug Use History: Marijuana - Past Family History Father History Unknown: Yes Family Medical History: Diabetes Mellitus Mother Family Medical History: Cancer, CVA/TIA, Diabetes Mellitus, Myocardial Infarction ([place]) Additional Family Medical History / Comment(s): Mother has had 5 CVAs, 3 MIs and UTERINE CANCER General Exam Limitations: no limitations General appearance: alert, in no apparent distress Head exam: Present: atraumatic, normocephalic, normal inspection Eye exam: Present: normal appearance, PERRL, EOMI. Absent: scleral icterus, conjunctival injection, periorbital swelling ENT exam: Present: normal exam, mucous membranes moist Neck exam: Present: normal inspection. Absent: tenderness, meningismus, lymphadenopathy Respiratory exam: Present: normal lung sounds bilaterally. Absent: respiratory distress, wheezes, rales, rhonchi, stridor Cardiovascular Exam: Present: regular rate, normal rhythm, normal heart sounds. Absent: systolic murmur, diastolic murmur, rubs, gallop, clicks GI/Abdominal exam: Present: soft, normal bowel sounds. Absent: distended, tenderness, guarding, rebound, rigid Extremities exam: Present: normal inspection, full ROM, normal capillary refill. Absent: tenderness, pedal edema, joint swelling, calf tenderness Back exam: Present: normal inspection Neurological exam: Present: alert, oriented X3, CN II-XII intact Psychiatric exam: Present: normal affect, normal mood Skin exam: Present: warm, dry, intact, normal color. Absent: rash Course Vital Signs 08/31/24 08/31/24 20:26 21:31 Temperature 98.1 F 98.6 F Pulse Rate 108 H 100 Respiratory 20 19 Rate Blood Pressure 118/64 134/84 O2 Sat by Pulse 95 97 Oximetry - Reevaluation(s) Reevaluation #1: Medical records reviewed Reevaluation #2: Patient symptoms improved Reevaluation #3: Patient informed of results and questions answered Reevaluation #4: Was pt. sent in by a medical professional or institution ([facility], MAIL TRUCK DRIVER, urgent care, hospital, or senior care...) When possible be specific @ -no Did you speak to anyone other than the patient for history (EMS, parent, family, police, friend...)? What history was obtained from this source @ -no Did you review nursing and triage notes (agree or disagree)? Why? @ -agree Are old charts reviewed (outside hosp., previous admission, EMS record, old EKG, old radiological studies, urgent care reports/EKG's, senior care records)? Report findings @ -yes Differential Diagnosis (chest pain, altered mental status, abdominal pain women, abdominal pain men, vaginal bleeding, weakness, fever, dyspnea, syncope, headache, dizziness, GI bleed, back pain, seizure, CVA, palpatations, mental health, musculoskeletal)? @ -prior EKG interpreted by me (3pts min.). @ -no X-rays interpreted by me (1pt min.). @ -no CT interpreted by me (1pt min.). @ -no U/S interpreted by me (1pt. min.). @ -no What testing was considered but not performed or refused? (CT, X-rays, U/S, labs)? Why? @ -none What meds were considered but not given or refused? Why? @ -none Did you discuss the management of the patient with other professionals (professionals i.e. [facility], MAIL TRUCK DRIVER, lab, RT, psych nurse, social studies teacher, consulting database administrator, teacher, evp and chief operating officer, case work aide)? Give summary @ -no Was smoking cessation discussed for >3mins.? @ -no Was critical care preformed (if so, how long)? @ -no Were there social determinants of health that impacted care today? How? (Homelessness, low income, unemployed, alcoholism, drug addiction, transportation, low edu. Level, literacy, decrease access to med. care, care home, rehab)? @ -none Was there de-escalation of care discussed even if they declined (Discuss DNR or withdrawal of care, Hospice)? DNR status @ -no What co-morbidities impacted this encounter? (DM, HTN, Smoking, COPD, CAD, Cancer, CVA, ARF, Chemo, Hep., AIDS, mental health diagnosis, sleep apnea, morbid obesity)? @ -none Was patient admitted / discharged? Hospital course, mention meds given and route, prescriptions, significant lab abnormalities, going to OR and other pertinent info. @ -38 female with acute on chronic pain, pain well-controlled here in the ER patient can be discharged home Discharge Undiagnosed new problem with uncertain prognosis? @ -no Drug Therapy requiring intensive monitoring for toxicity (Heparin, Nitro, Insulin, Cardizem)? @ -no Were any procedures done? @ -no Diagnosis/symptom? @ -Chronic pain Acute, or Chronic, or Acute on Chronic? @ -Acute Uncomplicated (without systemic symptoms) or Complicated (systemic symptoms)? @ -Complicated Side effects of treatment? @ -no Exacerbation, Progression, or Severe Exacerbation? @ -exacerbation Poses a threat to life or bodily function? How? (Chest pain, [place], [place], pneumonia, PE, COPD, DKA, ARF, appy, cholecystitis, CVA, Diverticulitis, Homicidal, Suicidal, threat to staff... and all critical care pts) @ -no Medical Decision Making - Medical Decision Making 38 female with acute on chronic pain, pain well-controlled here in the ER patient can be discharged home Disposition Clinical Impression: Chronic pain syndrome, Laryngitis Disposition: HOME SELF-CARE Condition: Good Instructions (If sedation given, give patient instructions): Pain Management (ED), Chronic Pain (ED), Croup (ED) Is patient prescribed a controlled substance at d/c from ED?: No Referrals: Lior Clemons MD [Primary Care Provider] - 1-2 days Time of Disposition: 21:30
[2024-08-31] MEDS: dexAMETHasone 2 MG TAB PO STA (21:15)
[2024-08-31] MEDS: HYDROmorphone 1 MG/ML 1 ML SYRINGE IM STA (21:16)
--- NOTE | 2024-08-31 21:22 | XR ---
EXAMINATION TYPE: XR soft tissue neck DATE OF EXAM: 08/31/2024 COMPARISON: CT cervical spine November 03, 2021 CLINICAL INDICATION: Female, 38 years old with history of pain; TECHNIQUE: 2 views soft tissue neck. FINDINGS: No suspicious prevertebral soft tissue swelling. No suspicious narrowing of the subglottic airway on the frontal view. Region of the epiglottis and vallecula appears within normal limits. Osse ous structures are intact. IMPRESSION: Unremarkable study. [facility], , 08/31/2024 9:20 PM
[2024-08-31 21:37] VITALS: BP 134/84; PULSE 100; RESP 19; TEMP 98.6
== END 2024-08-31 21:46 | disposition home or self-care (01) ==
LOC: EC 20:24
DX: G89.4 Chronic pain syndrome (principal); J04.0 Acute laryngitis; Z91.013 Allergy to seafood; Z88.2 Allergy status to sulfonamides; Z88.1 Allergy status to other antibiotic agents; Z88.8 Allergy status to other drugs, medicaments and biological substances; Z88.5 Allergy status to narcotic agent; Z88.6 Allergy status to analgesic agent
CPT/HCPCS: 70360; 99283; 96372; J1171; J8540

== ENCOUNTER 2024-09-09 20:00 | Emergency (ER) | payer MEDICARE, OTHER ==
[2024-09-09 20:49] VITALS: RESP 22; TEMP 98.8
--- NOTE | 2024-09-09 22:56 | ED ---
Extremity Problem HPI - General Chief complaint: Extremity Problem,Nontraumatic Stated complaint: L Foot issue Time Seen by Provider: 09/09/24 20:45 Source: patient Mode of arrival: ambulatory Limitations: no limitations - History of Present Illness Initial comments: 38-year-old female presents to the emergency department with left foot pain. Patient is well-known to the emergency department for her complaints of pain. She states that she has been having immense pain at the site of a bunion in her left foot. She saw her pain management doctor today who did an x-ray and told her that she had a small chip fragment in her foot. She presents today to have this addressed as she did not want to wait for the orthopedic surgeon. Patient is already in a pain contract. She denies any injuries to the foot. - Related Data Home Medications Medication Instructions Recorded Confirmed Medroxyprogesterone Acetate 150 mg IM Q84D 11/22/13 10/07/20 [Depo-Provera] rOPINIRole HCL [Requip] 1 mg PO BID@0900,1200 11/22/13 10/07/20 Pentosan Polysulfate Sodium 100 mg PO DAILY 02/10/15 10/07/20 [Elmiron] HYDROcodone/APAP 7.5-325MG [[place] 1 tab PO BID 07/20/16 10/07/20 7.5-325] Paliperidone IM Pt Own [Invega 117 mg IM Q28D 07/20/16 10/07/20 Sustenna] amantadine HCL [Symmetrel] 100 mg PO BID 11/21/16 10/07/20 Albuterol Sulfate [Proair Hfa] 2 puff INHALATION RT-QID PRN 01/13/18 10/07/20 Butalb/Acetaminophen/Caffeine 1 tab PO Q8H PRN 01/13/18 10/07/20 [Fioricet 50-325-40] Fluticasone Propionate [Flovent 1 puff INHALATION RT-BID 01/13/18 10/07/20 Hfa 110 mcg] gemfibroziL [Lopid] 600 mg PO BID 01/13/18 10/07/20 Gabapentin [Neurontin] 300 mg PO TID 03/11/18 10/07/20 Gabapentin [Neurontin] 600 mg PO TID 09/16/19 10/07/20 Omeprazole [PriLOSEC] 40 mg PO DAILY 09/16/19 10/07/20 rOPINIRole HCL [Requip] 2 mg PO HS 09/16/19 10/07/20 traZODone HCL 300 mg PO HS 09/16/19 10/07/20 hydrOXYzine pamoate 25 mg PO BID 04/13/20 10/07/20 Cyclobenzaprine [Flexeril] 10 mg PO TID PRN 08/16/20 10/07/20 Fentanyl/Bupivcaine Pain Pump 1 dose INTRATHECA CONTINUOUS 08/16/20 10/07/20 Ibuprofen [Motrin] 600 mg PO TID PRN 10/07/20 10/07/20 diphenhydrAMINE [Benadryl] 50 mg PO DAILY PRN 10/07/20 10/07/20 Previous Rx's Medication Instructions Recorded Erythromycin Ophth Oint [Romycin 1 applic RIGHT EYE QID #1 bottle 10/03/20 Ophth Oint] Ondansetron Odt [Zofran Odt] 4 mg PO Q8HR PRN #14 tab 10/16/20 Ondansetron Odt [Zofran Odt] 4 mg PO Q8HR PRN #10 tab 06/21/21 predniSONE [Deltasone] 20 mg PO BID #10 tab 09/08/21 Cephalexin [Keflex] 500 mg PO Q8HR 7 Days #21 cap 11/25/21 Fluconazole [Diflucan] 150 mg PO ONCE #1 tab 11/25/21 Amoxic-Pot Clav 875-125Mg 1 tab PO Q12HR 7 Days #14 tab 05/02/23 [Augmentin 875-125] Ondansetron Odt [Zofran Odt] 8 mg PO Q8HR #9 tab 10/14/23 Ketorolac [Toradol] 10 mg PO Q8HR #15 tab 12/20/23 diphenhydrAMINE [Benadryl] 50 mg PO QID PRN #20 capsule 12/20/23 clindamycin HCL 300 mg PO QID #40 cap 12/29/23 Cephalexin [Keflex] 500 mg PO Q6HR 7 Days #28 cap 01/21/24 Albuterol Nebulized [Ventolin 2.5 mg INHALATION Q4H #75 ml 02/10/24 Nebulized] methylPREDNISolone Dose Pack 4 mg PO DIRECTED #21 packet 02/10/24 [Medrol Dose Pack] Famotidine [Pepcid] 40 mg PO BID #28 tablet 06/27/24 predniSONE 50 mg PO DAILY #5 tab 06/27/24 Allergies Allergy/AdvReac Type Severity Reaction Status Date / Time azithromycin Allergy Rash/Hives Verified 09/09/24 20:49 [From Zithromax Z-Mehrdad] cimetidine [From Tagamet] Allergy Rash/Hives Verified 09/09/24 20:49 codeine Allergy Nausea & Verified 09/09/24 20:49 Vomiting ether [Ether] Allergy Anaphylaxis Verified 09/09/24 20:49 Fish Containing Products Allergy Anaphylaxis Verified 09/09/24 20:49 [Fish] ibuprofen [From Motrin] Allergy Rash/Hives Verified 09/09/24 20:49 morphine Allergy Unknown Verified 09/09/24 20:49 NSAIDS (Non-Steroidal Allergy Rash/Hives Verified 09/09/24 20:49 Anti-Inflamma ziprasidone HCl [From Geodon] Allergy Extrapyramidal Verified 09/09/24 20:49 Symptoms ciprofloxacin [From Cipro] AdvReac Rash/Hives Verified 09/09/24 20:49 fluphenazine HCl AdvReac Extrapyramidal Verified 09/09/24 20:49 [From Prolixin] Symptoms haloperidol [From Haldol] AdvReac Extrapyramidal Verified 09/09/24 20:49 Symptoms Sulfa (Sulfonamide AdvReac Nausea & Verified 09/09/24 20:49 Antibiotics) Vomiting Review of Systems ROS Statement: Those systems with pertinent positive or pertinent negative responses have been documented in the HPI. ROS Other: All systems not noted in ROS Statement are negative. Past Medical History Past Medical History: Asthma, GERD/Reflux, Hyperlipidemia, Musculoskeletal Disorder, Neurologic Disorder, Osteoarthritis (OA), Seizure Disorder Additional Past Medical History / Comment(s): RSD-DERIC FEET, INTERSTITIAL CYSTITIS, BRONCHITIS, HEMORRHOIDS,MIGRAINES, INSOMNIA. VERTIGO, last seizure 4 years ago, complex regional pain syndrome, RLS. History of Any Multi-Drug Resistant Organisms: MRSA Date of last positivie culture/infection: 04/20/15 MDRO Source:: Left Axilla Past Surgical History: Adenoidectomy, Back Surgery, Cholecystectomy, Orthopedic Surgery, Tonsillectomy Additional Past Surgical History / Comment(s): bilateral foot surgery d/t rsd, numerous pain clinic procedures, nerve stimulator in back to tx RSD placed in [place] 2015, pain pump placement, replacement of stimulator 06/2021, replacement of pain pump. Past Anesthesia/Blood Transfusion Reactions: Previous Problems w/ Anesthesia Additional Past Anesthesia/Blood Transfusion Reaction / Comment(s): Pt recieved blood when she was 2 yrs old after tonsillectomy. WHEN BABY HEART STOPPED TWICE- PT STATED SHE WAS ALLERGIC TO ETHER. Past Psychological History: Anxiety, Bipolar, Depression, PTSD Smoking Status: Never smoker Past Alcohol Use History: None Reported Past Drug Use History: Marijuana - Past Family History Father History Unknown: Yes Family Medical History: Diabetes Mellitus Mother Family Medical History: Cancer, CVA/TIA, Diabetes Mellitus, Myocardial Infarction ([place]) Additional Family Medical History / Comment(s): Mother has had 5 CVAs, 3 MIs and UTERINE CANCER General Exam Limitations: no limitations General appearance: alert, in no apparent distress Head exam: Present: atraumatic, normocephalic, normal inspection Eye exam: Present: normal appearance, PERRL, EOMI. Absent: scleral icterus, conjunctival injection, periorbital swelling ENT exam: Present: normal exam, mucous membranes moist Neck exam: Present: normal inspection. Absent: tenderness, meningismus, lymphadenopathy Respiratory exam: Present: normal lung sounds bilaterally. Absent: respiratory distress, wheezes, rales, rhonchi, stridor Cardiovascular Exam: Present: regular rate, normal rhythm, normal heart sounds. Absent: systolic murmur, diastolic murmur, rubs, gallop, clicks GI/Abdominal exam: Present: soft, normal bowel sounds. Absent: distended, tenderness, guarding, rebound, rigid Extremities exam: Present: normal inspection, full ROM, normal capillary refill. Absent: tenderness, pedal edema, joint swelling, calf tenderness Back exam: Present: normal inspection Neurological exam: Present: alert, oriented X3, CN II-XII intact Psychiatric exam: Present: normal affect, normal mood Skin exam: Present: warm, dry, intact, normal color. Absent: rash Course Vital Signs 09/09/24 09/09/24 20:45 23:14 Temperature 98.8 F 98.8 F Pulse Rate 104 H 96 Respiratory 22 22 Rate Blood Pressure 160/103 148/98 O2 Sat by Pulse 98 98 Oximetry Medical Decision Making - Medical Decision Making Was pt. sent in by a medical professional or institution (, [facility], CLAIMS ACCOUNT SPECIALIST, urgent care, hospital, or long term...) When possible be specific @ -No Did you speak to anyone other than the patient for history (EMS, parent, family, police, friend...)? What history was obtained from this source @ -No Did you review nursing and triage notes (agree or disagree)? Why? @ -I reviewed a previous x-ray of the patient's left foot from 2018 where patient had the small fragments in her toe Were old charts reviewed (outside hosp., previous admission, EMS record, old EKG, old radiological studies, urgent care reports/EKG's, long term records)? Report findings @ -No old charts were reviewed Differential Diagnosis (chest pain, altered mental status, abdominal pain women, abdominal pain men, vaginal bleeding, weakness, fever, dyspnea, syncope, headache, dizziness, GI bleed, back pain, seizure, CVA, palpatations, mental health, musculoskeletal)? @ -Differential Musculoskeletal Muscular strain, contusion, ligament sprain, fracture, arthritis, septic arthritis, bursitis, cellulitis, muscle spasm, nerve compression, DVT, arterial occlusion, herpes zoster, electrolyte abnormality, tumor.... This is not meant to be in all inclusive list EKG interpreted by me (3pts min.). @ -Not done X-rays interpreted by me (1pt min.). @ -yes which demonstrates no acute process CT interpreted by me (1pt min.). @ -None done U/S interpreted by me (1pt. min.). @ -None done What testing was considered but not performed or refused? (CT, X-rays, U/S, labs)? Why? @ -None What meds were considered but not given or refused? Why? @ -None Did you discuss the management of the patient with other professionals (professionals i.e. [facility] Estes, CLAIMS ACCOUNT SPECIALIST, lab, RT, psych nurse, oncology social worker, store management trainee, teacher, psychological operations officer, family caseworker)? Give summary @ -No Was smoking cessation discussed for >3mins.? @ -No Was critical care preformed (if so, how long)? @ -No Were there social determinants of health that impacted care today? How? (Homelessness, low income, unemployed, alcoholism, drug addiction, transportation, low edu. Level, literacy, decrease access to med. care, halfway, rehab)? @ -No Was there de-escalation of care discussed even if they declined (Discuss DNR or withdrawal of care, Hospice)? DNR status @ -No What co-morbidities impacted this encounter? (DM, HTN, Smoking, COPD, CAD, Cancer, CVA, ARF, Chemo, Hep., AIDS, mental health diagnosis, sleep apnea, morbid obesity)? @ -Chronic pain Was patient admitted / discharged? Hospital course, mention meds given and route, prescriptions, significant lab abnormalities, going to OR and other pertinent info. @ -Upon arrival patient seen and evaluated in triage. Thorough history and physical exam was performed. I informed the patient that her x-ray of her foot looks exactly the same as an x-ray that she had in 2018. Patient is requesting pain medications. She was given a dose of Toradol and Benadryl. She is discharged and instructed to follow-up with her pain management doctor in regards to her chronic symptoms. May also follow-up with the orthopedic doctor Undiagnosed new problem with uncertain prognosis? @ -No Drug Therapy requiring intensive monitoring for toxicity (Heparin, Nitro, Insulin, Cardizem)? @ -No Were any procedures done? @ -No Diagnosis/symptom? @ -Acute left foot pain Acute, or Chronic, or Acute on Chronic? @ -Acute per patient Uncomplicated (without systemic symptoms) or Complicated (systemic symptoms)? @ -Uncomplicated Side effects of treatment? @ -No Exacerbation, Progression, or Severe Exacerbation? @ -No Poses a threat to life or bodily function? How? (Chest pain, [place], [place], pneumonia, PE, COPD, DKA, ARF, appy, cholecystitis, CVA, Diverticulitis, Homicidal, Suicidal, threat to staff... and all critical care pts) @ -No Disposition Clinical Impression: Chronic pain in left foot Disposition: HOME SELF-CARE Condition: Stable Instructions (If sedation given, give patient instructions): Arthralgia (ED) Additional Instructions: The loose body in your foot has been present since 2018. If you are having more pain, wear the post op shoe and follow up with the orthopedic doctor. Is patient prescribed a controlled substance at d/c from ED?: No Referrals: Lior Clemons MD [Primary Care Provider] - 1-2 days Carlos A Galvez MD [STAFF PHYSICIAN] - 1-2 days Time of Disposition: 22:56
--- NOTE | 2024-09-09 22:59 | XR ---
EXAMINATION TYPE: XR foot complete LT DATE OF EXAM: 09/09/2024 9:26 PM CLINICAL INDICATION:Female, 38 years old with history of L foot injury; PHH, pain COMPARISON: Left toe radiograph 03/21/2021 TECHNIQUE: XR foot complete LT examined in the AP, oblique, and lateral projections. FINDINGS: No evidence of any acute osseous pathology. No evidence of soft tissue swelling. No radiopaque forei gn body. IMPRESSION: No evidence of acute osseous abnormality. [facility], , 09/09/2024 10:57 PM
[2024-09-09] MEDS: KETOROLAC 15 MG/ML 1 ML VIAL IM STA (23:10)
[2024-09-09] MEDS: diphenhydrAMINE 25 MG CAP PO STA (23:11)
[2024-09-09 23:15] VITALS: BP 148/98; PULSE 96
== END 2024-09-09 23:16 | disposition home or self-care (01) ==
LOC: EC 20:00
DX: M79.672 Pain in left foot (principal); G89.29 Other chronic pain; Z88.1 Allergy status to other antibiotic agents; Z88.2 Allergy status to sulfonamides; Z88.5 Allergy status to narcotic agent; Z88.6 Allergy status to analgesic agent; Z91.013 Allergy to seafood; Z88.8 Allergy status to other drugs, medicaments and biological substances
CPT/HCPCS: 73630; 99283; 96372; J1885

== ENCOUNTER 2024-09-25 00:32 | Emergency (ER) | payer MEDICARE, OTHER ==
--- NOTE | 2024-09-25 01:20 | ED ---
Headache HPI - General Chief Complaint: Headache Stated Complaint: headache Time Seen by Provider: 09/25/24 00:51 Source: patient, RN notes reviewed Mode of arrival: ambulatory Limitations: no limitations - History of Present Illness Initial Comments: This is a 38-year-old female with history including migraine vertigo and seizure disorder presenting for migraine (01/08) since Saturday. Patient states she is having left frontal pressure with associated blurry vision and nausea/vomiting. Patient states this feels like her typical migraine. Patient endorses use of Fioricet and hydromorphone without relief. Denies fever, chills, neck stiffness, dizziness, chest pain, dyspnea, abdominal pain, urinary symptoms. MD Complaint: "migraine" Onset/Timin -: days(s) Location: left, frontal Severity scale (1-10): 10 Quality: throbbing, similar to previous headaches Associated Symptoms: nausea, vomiting, photophobia Treatments Prior to Arrival: prescription analgesic, migraine medication - Related Data Home Medications Medication Instructions Recorded Confirmed Medroxyprogesterone Acetate 150 mg IM Q84D 11/22/13 10/07/20 [Depo-Provera] rOPINIRole HCL [Requip] 1 mg PO BID@0900,1200 11/22/13 10/07/20 Pentosan Polysulfate Sodium 100 mg PO DAILY 02/10/15 10/07/20 [Elmiron] HYDROcodone/APAP 7.5-325MG [Mcdonough 1 tab PO BID 07/20/16 10/07/20 7.5-325] Paliperidone IM Pt Own [Invega 117 mg IM Q28D 07/20/16 10/07/20 Sustenna] amantadine HCL [Symmetrel] 100 mg PO BID 11/21/16 10/07/20 Albuterol Sulfate [Proair Hfa] 2 puff INHALATION RT-QID PRN 01/13/18 10/07/20 Butalb/Acetaminophen/Caffeine 1 tab PO Q8H PRN 01/13/18 10/07/20 [Fioricet 50-325-40] Fluticasone Propionate [Flovent 1 puff INHALATION RT-BID 01/13/18 10/07/20 Hfa 110 mcg] gemfibroziL [Lopid] 600 mg PO BID 01/13/18 10/07/20 Gabapentin [Neurontin] 300 mg PO TID 03/11/18 10/07/20 Gabapentin [Neurontin] 600 mg PO TID 09/16/19 10/07/20 Omeprazole [PriLOSEC] 40 mg PO DAILY 09/16/19 10/07/20 rOPINIRole HCL [Requip] 2 mg PO HS 09/16/19 10/07/20 traZODone HCL 300 mg PO HS 09/16/19 10/07/20 hydrOXYzine pamoate 25 mg PO BID 04/13/20 10/07/20 Cyclobenzaprine [Flexeril] 10 mg PO TID PRN 08/16/20 10/07/20 Fentanyl/Bupivcaine Pain Pump 1 dose INTRATHECA CONTINUOUS 08/16/20 10/07/20 Ibuprofen [Motrin] 600 mg PO TID PRN 10/07/20 10/07/20 diphenhydrAMINE [Benadryl] 50 mg PO DAILY PRN 10/07/20 10/07/20 Previous Rx's Medication Instructions Recorded Erythromycin Ophth Oint [Romycin 1 applic RIGHT EYE QID #1 bottle 10/03/20 Ophth Oint] Ondansetron Odt [Zofran Odt] 4 mg PO Q8HR PRN #14 tab 10/16/20 Ondansetron Odt [Zofran Odt] 4 mg PO Q8HR PRN #10 tab 06/21/21 predniSONE [Deltasone] 20 mg PO BID #10 tab 09/08/21 Cephalexin [Keflex] 500 mg PO Q8HR 7 Days #21 cap 11/25/21 Fluconazole [Diflucan] 150 mg PO ONCE #1 tab 11/25/21 Amoxic-Pot Clav 875-125Mg 1 tab PO Q12HR 7 Days #14 tab 05/02/23 [Augmentin 875-125] Ondansetron Odt [Zofran Odt] 8 mg PO Q8HR #9 tab 10/14/23 Ketorolac [Toradol] 10 mg PO Q8HR #15 tab 12/20/23 diphenhydrAMINE [Benadryl] 50 mg PO QID PRN #20 capsule 12/20/23 clindamycin HCL 300 mg PO QID #40 cap 12/29/23 Cephalexin [Keflex] 500 mg PO Q6HR 7 Days #28 cap 01/21/24 Albuterol Nebulized [Ventolin 2.5 mg INHALATION Q4H #75 ml 02/10/24 Nebulized] methylPREDNISolone Dose Pack 4 mg PO DIRECTED #21 packet 02/10/24 [Medrol Dose Pack] Famotidine [Pepcid] 40 mg PO BID #28 tablet 06/27/24 predniSONE 50 mg PO DAILY #5 tab 06/27/24 Allergies Allergy/AdvReac Type Severity Reaction Status Date / Time azithromycin Allergy Rash/Hives Verified 09/25/24 00:54 [From Zithromax Z-Mehrdad] cimetidine [From Tagamet] Allergy Rash/Hives Verified 09/25/24 00:54 codeine Allergy Nausea & Verified 09/25/24 00:54 Vomiting ether [Ether] Allergy Anaphylaxis Verified 09/25/24 00:54 Fish Containing Products Allergy Anaphylaxis Verified 09/25/24 00:54 [Fish] ibuprofen [From Motrin] Allergy Rash/Hives Verified 09/25/24 00:54 morphine Allergy Unknown Verified 09/25/24 00:54 NSAIDS (Non-Steroidal Allergy Rash/Hives Verified 09/25/24 00:54 Anti-Inflamma ziprasidone HCl [From Geodon] Allergy Extrapyramidal Verified 09/25/24 00:54 Symptoms ciprofloxacin [From Cipro] AdvReac Rash/Hives Verified 09/25/24 00:54 fluphenazine HCl AdvReac Extrapyramidal Verified 09/25/24 00:54 [From Prolixin] Symptoms haloperidol [From Haldol] AdvReac Extrapyramidal Verified 09/25/24 00:54 Symptoms Sulfa (Sulfonamide AdvReac Nausea & Verified 09/25/24 00:54 Antibiotics) Vomiting Review of Systems ROS Statement: Those systems with pertinent positive or pertinent negative responses have been documented in the HPI. ROS Other: All systems not noted in ROS Statement are negative. Past Medical History Past Medical History: Asthma, GERD/Reflux, Hyperlipidemia, Musculoskeletal Disorder, Neurologic Disorder, Osteoarthritis (OA), Seizure Disorder Additional Past Medical History / Comment(s): RSD-DERIC FEET, INTERSTITIAL CYSTITIS, BRONCHITIS, HEMORRHOIDS,MIGRAINES, INSOMNIA. VERTIGO, last seizure 4 years ago, complex regional pain syndrome, RLS. History of Any Multi-Drug Resistant Organisms: MRSA Date of last positivie culture/infection: 04/20/15 MDRO Source:: Left Axilla Past Surgical History: Adenoidectomy, Back Surgery, Cholecystectomy, Orthopedic Surgery, Tonsillectomy Additional Past Surgical History / Comment(s): bilateral foot surgery d/t rsd, numerous pain clinic procedures, nerve stimulator in back to tx RSD placed in Nov 11 2015, pain pump placement, replacement of stimulator 06/2021, replacement of pain pump. Past Anesthesia/Blood Transfusion Reactions: Previous Problems w/ Anesthesia Additional Past Anesthesia/Blood Transfusion Reaction / Comment(s): Pt recieved blood when she was 2 yrs old after tonsillectomy. WHEN BABY HEART STOPPED TWICE- PT STATED SHE WAS ALLERGIC TO ETHER. Past Psychological History: Anxiety, Bipolar, Depression, PTSD Smoking Status: Never smoker Past Alcohol Use History: None Reported Past Drug Use History: Marijuana - Past Family History Father History Unknown: Yes Family Medical History: Diabetes Mellitus Mother Family Medical History: Cancer, CVA/TIA, Diabetes Mellitus, Myocardial Infarction ([place]) Additional Family Medical History / Comment(s): Mother has had 5 CVAs, 3 MIs and UTERINE CANCER General Exam Limitations: no limitations General appearance: alert, in distress Head exam: Present: atraumatic, normocephalic, normal inspection Eye exam: Present: normal appearance, PERRL, EOMI. Absent: scleral icterus, conjunctival injection, periorbital swelling ENT exam: Present: normal exam, mucous membranes dry Neck exam: Present: normal inspection. Absent: tenderness, meningismus, lymphadenopathy Respiratory exam: Present: normal lung sounds bilaterally. Absent: respiratory distress, wheezes, rales, rhonchi, stridor, accessory muscle use, decreased breath sounds, prolonged expiratory Cardiovascular Exam: Present: regular rate, normal rhythm, normal heart sounds. Absent: systolic murmur, diastolic murmur, rubs, gallop, clicks GI/Abdominal exam: Present: soft, normal bowel sounds. Absent: distended, tenderness, guarding, rebound, rigid Extremities exam: Present: normal inspection, full ROM, normal capillary refill. Absent: tenderness, pedal edema, joint swelling, calf tenderness Back exam: Present: normal inspection Neurological exam: Present: alert, oriented X3, CN II-XII intact Psychiatric exam: Present: normal affect, normal mood Skin exam: Present: warm, dry, intact, normal color. Absent: rash Course Vital Signs 09/25/24 09/25/24 09/25/24 00:51 01:24 03:19 Temperature 98.4 F 98.5 F 98.5 F Pulse Rate 102 H 97 97 Respiratory 18 17 17 Rate Blood Pressure 147/97 129/84 129/84 O2 Sat by Pulse 98 98 98 Oximetry Medical Decision Making - Medical Decision Making Was pt. sent in by a medical professional or institution (, [facility], METAL RECLAMATION KETTLE TENDER, urgent care, hospital, or long-term...) When possible be specific @ -No Did you speak to anyone other than the patient for history (EMS, parent, family, police, friend...)? What history was obtained from this source @ -No Did you review nursing and triage notes (agree or disagree)? Why? @ -I reviewed and agree with nursing and triage notes Were old charts reviewed (outside hosp., previous admission, EMS record, old EKG, old radiological studies, urgent care reports/EKG's, long-term records)? Report findings @ -No old charts were reviewed Differential Diagnosis (chest pain, altered mental status, abdominal pain women, abdominal pain men, vaginal bleeding, weakness, fever, dyspnea, syncope, headache, dizziness, GI bleed, back pain, seizure, CVA, palpatations, mental health, musculoskeletal)? @ -Differential Headache: Migraine, tension, cluster, carbon monoxide, central venous thrombosis, pension karma temporal arteritis, acute closure glaucoma, intercranial hemorrhage, mastoiditis, sinusitis, head injury, this is not meant to be an all-inclusive list. EKG interpreted by me (3pts min.). @ -Not done X-rays interpreted by me (1pt min.). @ -None done CT interpreted by me (1pt min.). @ -None done U/S interpreted by me (1pt. min.). @ -None done What testing was considered but not performed or refused? (CT, X-rays, U/S, labs)? Why? @ -None What meds were considered but not given or refused? Why? @ -None Did you discuss the management of the patient with other professionals (professionals i.e. CALLUM Estes, METAL RECLAMATION KETTLE TENDER, lab, RT, psych nurse, outreach and education social worker, certified legal secretary specialist, teacher, environmental compliance officer, employment evaluator/case manager)? Give summary @ -No Was smoking cessation discussed for >3mins.? @ -No Was critical care preformed (if so, how long)? @ -No Were there social determinants of health that impacted care today? How? (Homelessness, low income, unemployed, alcoholism, drug addiction, transportation, low edu. Level, literacy, decrease access to med. care, [facility], rehab)? @ -No Was there de-escalation of care discussed even if they declined (Discuss DNR or withdrawal of care, Hospice)? DNR status @ -No What co-morbidities impacted this encounter? (DM, HTN, Smoking, COPD, CAD, Cancer, CVA, ARF, Chemo, Hep., AIDS, mental health diagnosis, sleep apnea, mor bid obesity)? @ -None Was patient admitted / discharged? Hospital course, mention meds given and route, prescriptions, significant lab abnormalities, going to OR and other pertinent info. @ -Patient provided IV normal saline, Reglan, Dilaudid (due to NSAID allergy) and Benadryl. Patient notes migraine relief. Provided IV Decadron prior to discharge. Advised follow-up with PCP/neurology for ongoing management of migraines. Discussed patient with Dr. Mario. Undiagnosed new problem with uncertain prognosis? @ -No Drug Therapy requiring intensive monitoring for toxicity (Heparin, Nitro, Insulin, Cardizem)? @ -No Were any procedures done? @ -No Diagnosis/symptom? @ -Migraine Acute, or Chronic, or Acute on Chronic? @ -Acute Uncomplicated (without systemic symptoms) or Complicated (systemic symptoms)? @ -Uncomplicated Side effects of treatment? @ -No Exacerbation, Progression, or Severe Exacerbation? @ -No Poses a threat to life or bodily function? How? (Chest pain, USA, MA, pneumonia, PE, COPD, DKA, ARF, appy, cholecystitis, CVA, Diverticulitis, Homicidal, Suicidal, threat to staff... and all critical care pts) @ -No Disposition Clinical Impression: Migraine headache Disposition: HOME SELF-CARE Condition: Fair Instructions (If sedation given, give patient instructions): Migraine Headache (ED) Additional Instructions: Get plenty of rest in a dark, quiet room. Vane tea/dimitris for nausea. Follow-up with primary care/neurology for preventative management of migraines. Return to ER if experiencing worsening headache, dizziness, altered level of consciousness, vision changes, nausea/vomiting. Is patient prescribed a controlled substance at d/c from ED?: No Referrals: Lior Clemons MD [Primary Care Provider] - 1-2 days Rock Xavier DO [STAFF PHYSICIAN] - 1-2 days Time of Disposition: 02:31
[2024-09-25 01:27] VITALS: BP 129/84; PULSE 97; RESP 17; TEMP 98.5
[2024-09-25] MEDS: SODIUM CHLORIDE 0.9% 1,000 ML IV STA (01:40)
[2024-09-25] MEDS: METOCLOPRAMIDE 5 MG/ML 2 ML VIAL IVP STA (01:42)
[2024-09-25] MEDS: diphenhydrAMINE 50 MG/ML 1 ML VIAL IVP STA (01:42)
[2024-09-25] MEDS: HYDROmorphone 1 MG/ML 1 ML SYRINGE IVP STA (01:44)
[2024-09-25] MEDS: DEXAMETHASONE SOD PHOSPHATE 10 MG/ML 1 ML VIAL IVP STA (03:15)
== END 2024-09-25 03:21 | disposition home or self-care (01) ==
LOC: EC 00:32
DX: G43.909 Migraine, unspecified, not intractable, without status migrainosus (principal); Z88.1 Allergy status to other antibiotic agents; Z88.2 Allergy status to sulfonamides; Z88.8 Allergy status to other drugs, medicaments and biological substances; Z88.6 Allergy status to analgesic agent; Z88.5 Allergy status to narcotic agent; Z91.013 Allergy to seafood
CPT/HCPCS: 99283; 96374; 96375; 96361; J1200; J1100; J2765; J1171

== ENCOUNTER 2024-10-10 19:45 | Emergency (ER) | payer MEDICARE, OTHER ==
[2024-10-10 19:52] VITALS: RESP 18
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
[2024-10-10] MEDS: SODIUM CHLORIDE 0.9% 1,000 ML IV STA (20:15)
[2024-10-10] MEDS: METOCLOPRAMIDE 5 MG/ML 2 ML VIAL IVP STA (20:15)
[2024-10-10] MEDS: KETOROLAC 15 MG/ML 1 ML VIAL IVP STA (20:16)
[2024-10-10] MEDS: diphenhydrAMINE 50 MG/ML 1 ML VIAL IVP STA (20:16)
[2024-10-10] MEDS: ACETAMINOPHEN TAB 500 MG TAB PO STA (20:16)
[2024-10-10] MEDS: HYDROmorphone 1 MG/ML 1 ML SYRINGE IVP STA ×2 (20:17→21:15)
[2024-10-10] MEDS: ONDANSETRON 4 MG ODT STARTER PACK TAB BTL PO STA (22:26)
[2024-10-10 22:54] VITALS: BP 149/83; PULSE 88; TEMP 99
== END 2024-10-10 22:29 | disposition home or self-care (01) ==
LOC: EC 19:45
DX: G43.909 Migraine, unspecified, not intractable, without status migrainosus (principal); Z88.1 Allergy status to other antibiotic agents; Z88.2 Allergy status to sulfonamides; Z88.5 Allergy status to narcotic agent; Z88.6 Allergy status to analgesic agent; Z91.013 Allergy to seafood; Z88.8 Allergy status to other drugs, medicaments and biological substances
CPT/HCPCS: 99283; 96374; 96375; 96376; 96361; J1200; J2765; J1171; J1885; S0119

== ENCOUNTER 2024-10-16 08:57 | Day surgery (SDC) | payer MEDICARE, OTHER ==
[~2024-10-16 08:57] MED LIST changes: -DEXAMETHASONE SOD PHOSPHATE 10 MG/ML 1 ML VIAL IV ONE; -HEPARIN SODIUM,PORCINE 5,000 UNIT/ML 1 ML VIAL SQ ONE; -HYDROmorphone 1 MG/ML 1 ML SYRINGE IVP PRN; -LACTATED RINGERS 1,000 ML IV SCH; +LIDOCAINE 1% (10MG/ML) FOR IV START INTRADERMA PRN; -LIDOCAINE 1% 20 ML VIAL (10MG/ML) FOR IV START INTRADERMA PRN; -ONDANSETRON 4 MG/2 ML VIAL IVP ONE; -SCOPOLAMINE 1.5MG/72HR PATCH TRANSDERM ONE; +fentaNYL (PF) 50 MCG/ML 2 ML AMP IV PRN
[2024-10-16] MEDS: IV FLUID CONTINUATION 1,000 ML IV ONE (09:34)
[2024-10-16 09:37] LABS: Glucose,Whole Blood 95 mg/dL (70-110)
[2024-10-16] MEDS: LACTATED RINGERS 1,000 ML IV SCH (09:41)
[2024-10-16] MEDS: DEXAMETHASONE SOD PHOSPHATE 4 MG/ML 1 ML VIAL IV ONE (09:42)
[2024-10-16] MEDS: ONDANSETRON 4 MG/2 ML VIAL IVP ONE (09:42)
[2024-10-16] MEDS: MIDAZOLAM 2 MG/2 ML VIAL IV ONE (09:49)
[2024-10-16] MEDS: fentaNYL (PF) 50 MCG/ML 2 ML AMP IVP STA (09:50)
--- NOTE | 2024-10-16 10:54 | P.ANPRN ---
Procedure Note - Anesthesia - Nerve Block Performed Left Popliteal Single Time Out Performed: Yes (949) Date of Procedure: 10/16/24 (950) Procedure Start Time: 09:50 Procedure Stop Time: 09:54 Location of Patient: PreOp Indication: Acute Post-Operative Pain, Requested by Surgeon Specifically requested for management of pain by DrBen: Koby Tse Sedation Type: Sedate with meaningful contact maintained Preparation: Sterile Prep Position: Right Lateral Catheter: None Needle Types: Pajunk Needle Gauge: 21 Ultrasound used to visualize needle placement: Yes Ultrasound used to observe medication spread: Yes Injectate: 0.5% Ropivacaine (see comment for volume) (15cc) Blood Aspirated: No Pain Paresthesia on Injection Noted: No Resistance on Injection: Normal Image Stored and Saved: Yes Events: Uneventful and Well Tolerated
--- NOTE | 2024-10-16 10:55 | P.ANPRN ---
Procedure Note - Anesthesia - Nerve Block Performed Left Adductor Canal Single Time Out Performed: Yes ([id number]) Date of Procedure: 10/16/24 Procedure Start Time: 09:55 Procedure Stop Time: 10:00 Location of Patient: PreOp Indication: Acute Post-Operative Pain, Requested by Surgeon Specifically requested for management of pain by DrBen: Koby Tse Sedation Type: Sedate with meaningful contact maintained Preparation: Sterile Prep Position: Supine Catheter: None Needle Types: Pajunk Needle Gauge: 21 Ultrasound used to visualize needle placement: Yes Ultrasound used to observe medication spread: Yes Injectate: 0.5% Ropivacaine (see comment for volume) (15cc) Blood Aspirated: No Pain Paresthesia on Injection Noted: No Resistance on Injection: Normal Image Stored and Saved: Yes Events: Uneventful and Well Tolerated
[2024-10-16] MEDS ORDERED: LIDOCAINE 4% LTA KIT (4 ML) TOPICAL ONE (11:40)
[2024-10-16] MEDS ORDERED: fentaNYL (PF) 50 MCG/ML 2 ML AMP ONE (11:40)
[2024-10-16] MEDS ORDERED: PROPOFOL 10 MG/ML 20 ML VIAL IV ONE (11:40)
[2024-10-16] MEDS ORDERED: MIDAZOLAM 2 MG/2 ML VIAL ONE (11:40)
[2024-10-16] MEDS ORDERED: SUCCINYLCHOLINE CHLORIDE 200 MG/10 ML VIAL IV ONE (11:40)
[2024-10-16] MEDS ORDERED: DEXAMETHASONE SOD PHOSPHATE 4 MG/ML 1 ML VIAL ONE (11:40)
[2024-10-16] MEDS ORDERED: LIDOCAINE 1% INJ 10MG/ML (20 ML MDV) ONE (11:40)
[2024-10-16] MEDS ORDERED: ROPIVACAINE 5 MG/ML 30 ML VIAL ONE (11:40)
[2024-10-16] MEDS: ceFAZolin 1,000 MG in SODIUM CHLORIDE 0.9% 1,000 ML IRRIGATION ONE (11:42)
[2024-10-16] MEDS: LACTATED RINGERS 1,000 ML IV ONE (11:47)
[2024-10-16] MEDS: BUPIVACAINE (PF) 0.25% 30 ML VIAL SQ ONE (11:58)
--- NOTE | 2024-10-16 13:04 | P.OP ---
Date of Procedure: 10/16/24 Preoperative Diagnosis: Hallux rigidus left foot Postoperative Diagnosis: Same Procedure(s) Performed: First metatarsal phalangeal joint arthrodesis left foot Implants: 1.5 cc of augment Arthrex 3.5 mm fully threaded headless screws x 2 Anesthesia: JOSE DA Surgeon: Koby Tse Estimated Blood Loss (ml): 5 Pathology: none sent Condition: stable Disposition: PACU Description of Procedure: The patient was brought into the op room and placed on the table in supine position. Timeout was taken to confirm correct patient identifiers, correct laterality of surgery, and correct procedure. Once all staff in the room were in agreement with the timeout, the patient was induced and placed under general anesthesia. A well-padded tourniquet was placed the left ankle and then 25 cc of 0.25% Marcaine was injected as an ankle block. The left foot was prepped and draped usual manner. The left foot was exsanguinated and the tourniquet inflated to 250 mmHg. Using direct fluoroscopic visualization, cruz were placed over the skin at the entry points into the first metatarsal phalangeal joint through a medial portal as well as the dorsal lateral portal. The medial border was done between the neurovascular structures. The incision was then deepened down to the joint capsule which was then incised. An elevator was used to separate the capsule for access to the joint. A 2 mm bur was used to create an entry point into the joint. This was used to remove the condyles on the base of the proximal phalanges. Once the path was delineated, a 4.3 mm bur was inserted which was used to remove the articular cartilage and expose the subchondral bone. Once resection was completed the joint was compressed and the bur reinserted to essentially create 2 flat surfaces. The area was irrigated thoroughly with antibiotic saline and suction to remove any of the bony debris. Fluoroscopy showed that there was good bony contact when the joint was compressed both on AP and lateral views. Next 1.5 cc of augment was injected between the arthrodesis segments. A guidewire for a 3.5 mm fully threaded headless screw was placed on the medial side of the proximal phalanx and advanced proximal and lateral across the arthrodesis site. AP and lateral views show proper place of the wire. The second wire was the proximal wire. This started proximal to the first metatarsal head on the medial side of the first metatarsal. The wire was started so that it crossed the arthrodesis site and the other wire in an X fashion. Once the wire was started then the fluoroscopy was used to take the lateral view so that it was essentially plantar and parallel to the first wire placed. Once that was established the wire was fully advanced across the arthrodesis site and exiting out the lateral cortex of the proximal phalanx. Final fluoroscopic imaging showed proper placement of the wires. Visually the great toe was then slight dorsiflexed position. Drilling was performed over the wires to just breach the cortices on their entry points. Then 3.5 mm fully threaded headless screws were inserted over the wires and advanced until the proximal threads engage the cortices of the entry point. This allowed for excellent purchase of the screws and bone, and compress the arthrodesis site well. Final fluoroscopic images show proper placement of the hardware as well as compression of the arthrodesis site. The wounds were carefully irrigated with antibiotic saline. All incisions were closed with 3-0 nylon. Nonadherent gauze and dry sterile dressing applied to the foot. The tourniquet released capillary refill returned all digits of the foot. The patie nt was placed in a well-padded, well molded plaster posterior mold/sugar-tong splint. The foot and ankle were held in neutral position till the splint was dried. Anesthesia was reversed and the patient was taken recovery vital signs stable.
[2024-10-16 13:16] VITALS: TEMP 97.1
[2024-10-16] MEDS: oxyCODONE-APAP 7.5-325MG 1 EACH TAB PO STA (14:57)
[2024-10-16 15:19] VITALS: BP 142/92; PULSE 91; RESP 18
== END 2024-10-16 15:40 | disposition home or self-care (01) ==
LOC: OR 08:57
PROVIDERS: ATTEND Podiatrist
DX: M20.22 Hallux rigidus, left foot (principal); J45.909 Unspecified asthma, uncomplicated; G40.909 Epilepsy, unspecified, not intractable, without status epilepticus; G43.909 Migraine, unspecified, not intractable, without status migrainosus; F41.9 Anxiety disorder, unspecified; F43.10 Post-traumatic stress disorder, unspecified; F31.9 Bipolar disorder, unspecified; K21.9 Gastro-esophageal reflux disease without esophagitis; Z88.5 Allergy status to narcotic agent; Z88.6 Allergy status to analgesic agent; Z91.013 Allergy to seafood; Z88.1 Allergy status to other antibiotic agents; Z88.8 Allergy status to other drugs, medicaments and biological substances; Z88.2 Allergy status to sulfonamides; Z79.51 Long term (current) use of inhaled steroids; Z79.899 Other long term (current) drug therapy
CPT/HCPCS: 64447; 81025; 64445; 28750; C1713 ×2; J2250; J0330; J1100; J0690 ×2; J2405; J2003; J3010; J2795; J2704; J0665

== ENCOUNTER 2024-10-20 01:45 | Emergency (ER) | payer MEDICARE, OTHER ==
[2024-10-20] MEDS: HYDROmorphone 1 MG/ML 1 ML SYRINGE IM STA (02:11)
--- NOTE | 2024-10-20 02:32 | ED ---
General Adult HPI - General Chief complaint: Fall Stated complaint: Leg and Arm Pain Time Seen by Provider: 10/20/24 01:48 Source: patient, EMS Mode of arrival: EMS - History of Present Illness Initial comments: 38-year-old female presents to the emergency department for evaluation of right elbow pain and left knee pain following a fall. Patient states that she was walking her dog when she tripped. She states that she landed on her right elbow. She also notes falling onto her left knee. She denies any head injury. Denies blood thinners. - Related Data Home Medications Medication Instructions Recorded Confirmed Medroxyprogesterone Acetate 150 mg IM Q84D 11/22/13 10/14/24 [Depo-Provera] rOPINIRole HCL [Requip] 1 mg PO BID@0900,1200 11/22/13 10/14/24 Pentosan Polysulfate Sodium 100 mg PO DAILY 02/10/15 10/14/24 [Elmiron] Albuterol Sulfate [Proair Hfa] 2 puff INHALATION RT-QID PRN 01/13/18 10/14/24 Butalb/Acetaminophen/Caffeine 1 tab PO Q8H PRN 01/13/18 10/14/24 [Fioricet 50-325-40] Fluticasone Propionate [Flovent 1 puff INHALATION RT-BID PRN 01/13/18 10/14/24 Hfa 110 mcg] Gabapentin [Neurontin] 300 mg PO TID 03/11/18 10/14/24 Gabapentin [Neurontin] 600 mg PO TID 09/16/19 10/14/24 rOPINIRole HCL [Requip] 2 mg PO HS 09/16/19 10/14/24 traZODone HCL 200 mg PO HS 09/16/19 10/14/24 hydrOXYzine pamoate 25 mg PO BID PRN 04/13/20 10/14/24 Cyclobenzaprine [Flexeril] 10 mg PO TID PRN 08/16/20 10/14/24 Unk Ashwagandha 1 tab PO DAILY 10/14/24 10/14/24 Albuterol Nebulized [Ventolin 2.5 mg INHALATION Q4H PRN 10/14/24 10/14/24 Nebulized] HYDROmorphone [Dilaudid] 4 mg PO TID PRN 10/14/24 10/14/24 Ibuprofen 800 mg PO Q8H PRN 10/14/24 10/14/24 Ondansetron Odt [Zofran Odt] 8 mg PO Q8HR PRN 10/14/24 10/14/24 diphenhydrAMINE [Benadryl] 50 mg PO QID PRN 10/14/24 10/14/24 Previous Rx's Medication Instructions Recorded oxyCODONE HCL/ACETAMINOPHEN 1 tab PO Q6HR PRN #28 tab 10/16/24 [Percocet 7.5-325 mg] Allergies Allergy/AdvReac Type Severity Reaction Status Date / Time azithromycin Allergy Rash/Hives Verified 10/20/24 01:52 [From Zithromax Z-Mehrdad] cimetidine [From Tagamet] Allergy Rash/Hives Verified 10/20/24 01:52 codeine Allergy Nausea & Verified 10/20/24 01:52 Vomiting ether [Ether] Allergy Anaphylaxis Verified 10/20/24 01:52 Fish Containing Products Allergy Anaphylaxis Verified 10/20/24 01:52 [Fish] ibuprofen [From Motrin] Allergy Rash/Hives Verified 10/20/24 01:52 morphine Allergy heart stops Verified 10/20/24 01:52 NSAIDS (Non-Steroidal Allergy Rash/Hives Verified 10/20/24 01:52 Anti-Inflamma ziprasidone HCl [From Geodon] Allergy Extrapyramidal Verified 10/20/24 01:52 Symptoms ciprofloxacin [From Cipro] AdvReac Rash/Hives Verified 10/20/24 01:52 fluphenazine HCl AdvReac Extrapyramidal Verified 10/20/24 01:52 [From Prolixin] Symptoms haloperidol [From Haldol] AdvReac Extrapyramidal Verified 10/20/24 01:52 Symptoms Sulfa (Sulfonamide AdvReac Nausea & Verified 10/20/24 01:52 Antibiotics) Vomiting Review of Systems ROS Statement: Those systems with pertinent positive or pertinent negative responses have been documented in the HPI. ROS Other: All systems not noted in ROS Statement are negative. Past Medical History Past Medical History: Asthma, GERD/Reflux, Hyperlipidemia, Musculoskeletal Disorder, Neurologic Disorder, Osteoarthritis (OA), Seizure Disorder Additional Past Medical History / Comment(s): RSD-DERIC FEET, INTERSTITIAL CYSTITIS, BRONCHITIS, HEMORRHOIDS,MIGRAINES, INSOMNIA. VERTIGO, last seizure 4 years ago, complex regional pain syndrome, RLS. History of Any Multi-Drug Resistant Organisms: MRSA Date of last positivie culture/infection: 04/20/15 MDRO Source:: Left Axilla Past Surgical History: Adenoidectomy, Back Surgery, Cholecystectomy, Orthopedic Surgery, Tonsillectomy Additional Past Surgical History / Comment(s): bilateral foot surgery d/t rsd, numerous pain clinic procedures, nerve stimulator in back to tx RSD placed in Nov 11 2015, pain pump placement, replacement of stimulator 06/2021, replacement of pain pump. Past Anesthesia/Blood Transfusion Reactions: Previous Problems w/ Anesthesia Additional Past Anesthesia/Blood Transfusion Reaction / Comment(s): Pt recieved blood when she was 2 yrs old after tonsillectomy. WHEN BABY HEART STOPPED TWICE- PT STATED SHE WAS ALLERGIC TO ETHER. Past Psychological History: Anxiety, Bipolar, Depression, PTSD Smoking Status: Never smoker - Past Family History Father History Unknown: Yes Family Medical History: Diabetes Mellitus Mother Family Medical History: Cancer, CVA/TIA, Diabetes Mellitus, Myocardial Infarction ([place]) Additional Family Medical History / Comment(s): Mother has had 9 CVAs, 9 MIs and UTERINE CANCER , blood clots to brain. dying of organ failure. General Exam Limitations: no limitations General appearance: alert, in no apparent distress Head exam: Present: atraumatic, normocephalic, normal inspection Eye exam: Present: normal appearance, PERRL, EOMI. Absent: scleral icterus, conjunctival injection, periorbital swelling ENT exam: Present: normal exam, mucous membranes moist Respiratory exam: Present: normal lung sounds bilaterally. Absent: respiratory distress, wheezes, rales, rhonchi, stridor Cardiovascular Exam: Present: regular rate, normal rhythm, normal heart sounds. Absent: systolic murmur, diastolic murmur, rubs, gallop, clicks Extremities exam: Present: tenderness (Tenderness palpation of the right elbow), normal capillary refill, other (Radial pulses 2+). Absent: full ROM (Decreased range of motion at the right elbow), pedal edema, joint swelling, calf tenderness Back exam: Present: normal inspection Neurological exam: Present: alert, oriented X3 Psychiatric exam: Present: normal affect, normal mood Skin exam: Present: warm, dry, intact, normal color. Absent: rash Course Vital Signs 10/20/24 01:47 Temperature 98.7 F Pulse Rate 95 Respiratory 22 Rate Blood Pressure 147/85 O2 Sat by Pulse 95 Oximetry Medical Decision Making - Medical Decision Making Was pt. sent in by a medical professional or institution (, CALLUM, RESIDENTIAL PROGRAM DIRECTOR, urgent care, hospital, or intermediate...) When possible be specific @ -[No] Did you speak to anyone other than the patient for history (EMS, parent, family, police, friend...)? What history was obtained from this source @ -[No] Did you review nursing and triage notes (agree or disagree)? Why? @ -[I reviewed and agree with nursing and triage notes] Were old charts reviewed (outside hosp., previous admission, EMS record, old EKG, old radiological studies, urgent care reports/EKG's, intermediate records)? Report findings @ -[No old charts were reviewed] Differential Diagnosis (chest pain, altered mental status, abdominal pain women, abdominal pain men, vaginal bleeding, weakness, fever, dyspnea, syncope, headache, dizziness, GI bleed, back pain, seizure, CVA, palpatations, mental health, musculoskeletal)? @ -Differential Musculoskeletal Muscular strain, contusion, ligament sprain, fracture, arthritis, septic arthritis, bursitis, cellulitis, muscle spasm, nerve compression, DVT, arterial occlusion, herpes zoster, electrolyte abnormality, tumor.... This is not meant to be in all inclusive list EKG interpreted by me (3pts min.). @ -none X-rays interpreted by me (1pt min.). @ -[None done] CT interpreted by me (1pt min.). @ -[None done] U/S interpreted by me (1pt. min.). @ -[None done] What testing was considered but not performed or refused? (CT, X-rays, U/S, labs)? Why? @ -[None] What meds were considered but not given or refused? Why? @ -[None] Did you discuss the management of the patient with other professionals (professionals i.e. CALLUM Estes, RESIDENTIAL PROGRAM DIRECTOR, lab, RT, psych nurse, social services designee, information resources manager, teacher, intelligence support officer, case worker)? Give summary @ -[No] Was smoking cessation discussed for >3mins.? @ -[No] Was critical care preformed (if so, how long)? @ -[No] Were there social determinants of health that impacted care today? How? (Homelessness, low income, unemployed, alcoholism, drug addiction, transportation, low edu. Level, literacy, decrease access to med. care, longterm, rehab)? @ -[No] Was there de-escalation of care discussed even if they declined (Discuss DNR or withdrawal of care, Hospice)? DNR status @ -[No] What co-morbidities impacted this encounter? (DM, HTN, Smoking, COPD, CAD, Cancer, CVA, ARF, Chemo, Hep., AIDS, mental health diagnosis, sleep apnea, morbid obesity)? @ -[None] Was patient admitted / discharged? Hospital course, mention meds given and route, prescriptions, significant lab abnormalities, going to OR and other pertinent info. @ -[hospital course] Undiagnosed new problem with uncertain prognosis? @ -[No] Drug Therapy requiring intensive monitoring for toxicity (Heparin, Nitro, Insulin, Cardizem)? @ -[No] Were any procedures done? @ -[No] Diagnosis/symptom? @ -[default] Acute, or Chronic, or Acute on Chronic? @ -[default] Uncomplicated (without systemic symptoms) or Complicated (systemic symptoms)? @ -[default] Side effects of treatment? @ -[No] Exacerbation, Progression, or Severe Exacerbation? @ -[No] Poses a threat to life or bodily function? How? (Chest pain, [place], [place], pneumonia, PE, COPD, DKA, ARF, appy, cholecystitis, CVA, Diverticulitis, Homicidal, Suicidal, threat to staff... and all critical care pts) @ -[No] Disposition Clinical Impression: Elbow contusion Disposition: HOME SELF-CARE Condition: Stable Instructions (If sedation given, give patient instructions): Fall Prevention (ED) Is patient prescribed a controlled substance at d/c from ED?: No Referrals: Lior Clemons MD [Primary Care Provider] - 1-2 days
[2024-10-20] MEDS: KETOROLAC 15 MG/ML 1 ML VIAL IM STA (03:57)
[2024-10-20] MEDS: diphenhydrAMINE 50 MG/ML 1 ML VIAL IM STA (03:57)
[2024-10-20 04:12] VITALS: BP 160/108; PULSE 85; RESP 18; TEMP 98.5
--- NOTE | 2024-10-20 04:15 | XR ---
EXAM: XR Right Elbow Complete, 3 or More Views CLINICAL HISTORY: XR Reason: fall TECHNIQUE: Frontal, lateral and oblique views of the right elbow. COMPARISON: No relevant prior studies available. FINDINGS: Bones/joints: Unremarkable. No acute fracture. No dislocation. Soft tissues: Unremarkable. IMPRESSION: Normal right elbow x-rays.
--- NOTE | 2024-10-20 04:23 | XR ---
EXAM: XR Left Knee, 3 Views CLINICAL HISTORY: XR Reason: fall TECHNIQUE: Three views of the left knee. COMPARISON: No relevant prior studies available. FINDINGS: Bones/joints: Unremarkable. No acute fracture. No dislocation. Soft tissues: Unremarkable. IMPRESSION: Normal left knee x-rays.
== END 2024-10-20 04:03 | disposition home or self-care (01) ==
LOC: EC 01:45
DX: S50.01XA Contusion of right elbow, initial encounter (principal); Z88.2 Allergy status to sulfonamides; Z88.1 Allergy status to other antibiotic agents; Z88.8 Allergy status to other drugs, medicaments and biological substances; Z88.5 Allergy status to narcotic agent; Z88.6 Allergy status to analgesic agent; Z91.013 Allergy to seafood; W01.0XXA Fall on same level from slipping, tripping and stumbling without subsequent striking against object, initial encounter; Y93.K1 Activity, walking an animal
CPT/HCPCS: 73080; 73562; 99284; 96372; J1200; J1171; J1885

== ENCOUNTER 2024-10-24 12:32 | Emergency (ER) | payer MEDICARE, OTHER ==
[2024-10-24 12:51] VITALS: BP 122/89; PULSE 86; RESP 18; TEMP 98.4
[2024-10-24] MEDS ORDERED: LACTATED RINGERS 1,000 ML IV ONE (12:52)
[2024-10-24] MEDS ORDERED: KETOROLAC 15 MG/ML 1 ML VIAL IVP STA (12:53)
[2024-10-24 13:17] LABS: Basophils # (A) 0.03 10*3/uL (0.00-0.10); Basophils % (A) 0.5 %; Eosinophils # (A) 0.10 10*3/uL (0.04-0.35); Eosinophils % (A) 1.8 %; HCT 38.0 % (37.2-46.3); HGB 13.2 g/dL (12.0-15.0); Lymphocytes # (A) 1.63 10*3/uL (0.90-5.00); Lymphocytes % (A) 29.7 %; MCH 30.8 pg (27.0-32.0); MCHC 34.7 g/dL (32.0-37.0); MCV 88.8 fL (80.0-97.0); Monocytes # (A) 0.33 10*3/uL (0.20-1.00); Monocytes % (A) 6.0 %; Neutrophils # (A) 3.38 10*3/uL (1.80-7.70); Neutrophils % (A) 61.6 %; Platelet Count 232 10*3/uL (140-440); RBC 4.28 10*6/uL (4.10-5.20); RDW 11.9 % (11.5-14.5); WBC 5.49 10*3/uL (4.50-10.00)
--- NOTE | 2024-10-24 13:26 | ED ---
General Adult HPI - General Chief complaint: Weakness Stated complaint: Syncope/Weakness Time Seen by Provider: 10/24/24 12:33 Source: patient Mode of arrival: EMS Limitations: no limitations - History of Present Illness Initial comments: 38-year-old female with past medical history of complex regional pain syndrome who presents to the emergency department with weakness. Patient reports that she had surgery on her left foot on . She was discharged home. 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 She has not been able to eat or drink anything because she does not have food in her house. She does have several medications at home for pain but states she is only taking the [place] because she does not want to overdose on the Dilaudid. She denies any fevers. Today she went to the gas station to get food. She slumped down next to the cooler. Police and EMS were called. She did get aggressive on scene and stated that she just wanted to go home. Patient was aggressive with EMS and uncooperative. She denies taking too much of her medications. Denies any drainage from the site of her surgery. No other alleviating, precipitating modifying factors - Related Data Home Medications Medication Instructions Recorded Confirmed Medroxyprogesterone Acetate 150 mg IM Q84D 11/22/13 10/24/24 [Depo-Provera] rOPINIRole HCL [Requip] 1 mg PO BID@0900,1400 11/22/13 10/24/24 Pentosan Polysulfate Sodium 100 mg PO BID 02/10/15 10/24/24 [Elmiron] Albuterol Sulfate [Proair Hfa] 2 puff INHALATION RT-QID PRN 01/13/18 10/24/24 Butalb/Acetaminophen/Caffeine 1 tab PO Q12H PRN 01/13/18 10/24/24 [Fioricet 50-325-40] Gabapentin [Neurontin] 300 mg PO TID 03/11/18 10/24/24 Gabapentin [Neurontin] 600 mg PO TID 09/16/19 10/24/24 rOPINIRole HCL [Requip] 2 mg PO HS 09/16/19 10/24/24 traZODone HCL 200 mg PO HS 09/16/19 10/24/24 Cyclobenzaprine [Flexeril] 10 mg PO TID PRN 08/16/20 10/24/24 Albuterol Nebulized [Ventolin 2.5 mg INHALATION RT-Q4H PRN 10/14/24 10/24/24 Nebulized] Ibuprofen 800 mg PO Q12H PRN 10/14/24 10/24/24 Ondansetron Odt [Zofran Odt] 8 mg PO Q8HR PRN 10/14/24 10/24/24 diphenhydrAMINE [Benadryl] 50 mg PO QID PRN 10/14/24 10/24/24 EPINEPHrine (Auto Inject) [Epipen] 0.3 mg IM ONCE PRN 10/24/24 10/24/24 Topiramate 50 mg PO BID 10/24/24 10/24/24 Previous Rx's Medication Instructions Recorded oxyCODONE HCL/ACETAMINOPHEN 1 tab PO Q6HR PRN #28 tab 10/16/24 [Percocet 7.5-325 mg] Cephalexin [Keflex] 500 mg PO TID #20 cap 10/27/24 Allergies Allergy/AdvReac Type Severity Reaction Status Date / Time azithromycin Allergy Rash/Hives Verified 10/27/24 00:45 [From Zithromax Z-Mehrdad] cimetidine [From Tagamet] Allergy Rash/Hives Verified 10/27/24 00:45 codeine Allergy Nausea & Verified 10/27/24 00:45 Vomiting ether [Ether] Allergy Anaphylaxis Verified 10/27/24 00:45 Fish Containing Products Allergy Anaphylaxis Verified 10/27/24 00:45 [Fish] ibuprofen [From Motrin] Allergy Rash/Hives Verified 10/27/24 00:45 morphine Allergy heart stops Verified 10/27/24 00:45 NSAIDS (Non-Steroidal Allergy Rash/Hives Verified 10/27/24 00:45 Anti-Inflamma ziprasidone HCl [From Geodon] Allergy Extrapyramidal Verified 10/27/24 00:45 Symptoms ciprofloxacin [From Cipro] AdvReac Rash/Hives Verified 10/27/24 00:45 fluphenazine HCl AdvReac Extrapyramidal Verified 10/27/24 00:45 [From Prolixin] Symptoms haloperidol [From Haldol] AdvReac Extrapyramidal Verified 10/27/24 00:45 Symptoms Sulfa (Sulfonamide AdvReac Nausea & Verified 10/27/24 00:45 Antibiotics) Vomiting Review of Systems ROS Statement: Those systems with pertinent positive or pertinent negative responses have been documented in the HPI. ROS Other: All systems not noted in ROS Statement are negative. Past Medical History Past Medical History: Asthma, GERD/Reflux, Hyperlipidemia, Musculoskeletal Disorder, Neurologic Disorder, Osteoarthritis (OA), Seizure Disorder Additional Past Medical History / Comment(s): RSD-DERIC FEET, INTERSTITIAL CYSTITIS, BRONCHITIS, HEMORRHOIDS,MIGRAINES, INSOMNIA. VERTIGO, last seizure 4 years ago, complex regional pain syndrome, RLS. History of Any Multi-Drug Resistant Organisms: MRSA Date of last positivie culture/infection: 04/20/15 MDRO Source:: Left Axilla Past Surgical History: Adenoidectomy, Back Surgery, Cholecystectomy, Orthopedic Surgery, Tonsillectomy Additional Past Surgical History / Comment(s): bilateral foot surgery d/t rsd, numerous pain clinic procedures, nerve stimulator in back to tx RSD placed in Nov 11 2015, pain pump placement, replacement of stimulator 06/2021, replacement of pain pump. Past Anesthesia/Blood Transfusion Reactions: Previous Problems w/ Anesthesia Additional Past Anesthesia/Blood Transfusion Reaction / Comment(s): Pt recieved blood when she was 2 yrs old after tonsillectomy. WHEN BABY HEART STOPPED TWICE- PT STATED SHE WAS ALLERGIC TO ETHER. Past Psychological History: Anxiety, Bipolar, Depression, PTSD Smoking Status: Never smoker Past Alcohol Use History: None Reported Past Drug Use History: Marijuana - Past Family History Father History Unknown: Yes Family Medical History: Diabetes Mellitus Mother Family Medical History: Cancer, CVA/TIA, Diabetes Mellitus, Myocardial Infarction (NH) General Exam Limitations: no limitations General appearance: alert, in no apparent distress Head exam: Present: atraumatic, normocephalic, normal inspection Eye exam: Present: normal appearance, PERRL, EOMI. Absent: scleral icterus, conjunctival injection, periorbital swelling ENT exam: Present: normal exam, mucous membranes moist Neck exam: Present: normal inspection. Absent: tenderness, meningismus, lymphadenopathy Respiratory exam: Present: normal lung sounds bilaterally. Absent: respiratory distress, wheezes, rales, rhonchi, stridor Cardiovascular Exam: Present: regular rate, normal rhythm, normal heart sounds. Absent: systolic murmur, diastolic murmur, rubs, gallop, clicks GI/Abdominal exam: Present: soft, normal bowel sounds. Absent: distended, tende rness, guarding, rebound, rigid Extremities exam: Present: normal capillary refill, other (Boot left foot). Absent: tenderness, pedal edema, joint swelling, calf tenderness Back exam: Present: normal inspection Neurological exam: Present: alert, oriented X3, CN II-XII intact Psychiatric exam: Present: normal affect, normal mood Skin exam: Present: warm, dry, intact, normal color. Absent: rash Course Vital Signs 10/24/24 12:44 Temperature 98.4 F Pulse Rate 86 Respiratory 18 Rate Blood Pressure 122/89 O2 Sat by Pulse 97 Oximetry Medical Decision Making - Medical Decision Making Was pt. sent in by a medical professional or institution (, [facility], [facility], urgent care, hospital, or fdc...) When possible be specific @ -No Did you speak to anyone other than the patient for history (EMS, parent, family, police, friend...)? What history was obtained from this source @ -Spoke with EMS for history Did you review nursing and triage notes (agree or disagree)? Why? @ -I reviewed and agree with nursing and triage notes Were old charts reviewed (outside hosp., previous admission, EMS record, old EKG, old radiological studies, urgent care reports/EKG's, fdc records)? Report findings @ -I reviewed the operative report from October 16 Differential Diagnosis (chest pain, altered mental status, abdominal pain women, abdominal pain men, vaginal bleeding, weakness, fever, dyspnea, syncope, headache, dizziness, GI bleed, back pain, seizure, CVA, palpatations, mental health, musculoskeletal)? @ -Differential Weakness: Hypoglycemia, shock, sepsis, hyponatremia, anemia, infection, NH, ETOH, adverse medicine reaction, overdose, stroke, this is not meant to be an all-inclusive list. EKG interpreted by me (3pts min.). @ -Not done X-rays interpreted by me (1pt min.). @ -None done CT interpreted by me (1pt min.). @ -None done U/S interpreted by me (1pt. min.). @ -None done What testing was considered but not performed or refused? (CT, X-rays, U/S, labs)? Why? @ -Laboratory studies however patient refusing to wait for results What meds were considered but not given or refused? Why? @ -None Did you discuss the management of the patient with other professionals (professionals i.e. DrBen, [facility], [facility], lab, RT, psych nurse, social media strategist, technical account representative, teacher, police officer crime prevention, ed case manager)? Give summary @ -No Was smoking cessation discussed for >3mins.? @ -No Was critical care preformed (if so, how long)? @ -No Were there social determinants of health that impacted care today? How? (Homelessness, low income, unemployed, alcoholism, drug addiction, transportation, low edu. Level, literacy, decrease access to med. care, penitentiary, r ehab)? @ -No Was there de-escalation of care discussed even if they declined (Discuss DNR or withdrawal of care, Hospice)? DNR status @ -No What co-morbidities impacted this encounter? (DM, HTN, Smoking, COPD, CAD, Cancer, CVA, ARF, Chemo, Hep., AIDS, mental health diagnosis, sleep apnea, morbid obesity)? @ -Complex regional pain syndrome Was patient admitted / discharged? Hospital course, mention meds given and route, prescriptions, significant lab abnormalities, going to OR and other pertinent info. @ -Upon arrival the patient seen and evaluated in bed 4. Thorough history and physical exam was performed.IV was established and laboratory studies are conducted. Patient will not wait for results. She is alert and oriented and states that she wants to leave. We did offer her food however she states that she has her own access to food and does not want our "crappy food". Patient will leave AGAINST MEDICAL ADVICE as we are not finished with her workup. She is instructed to return for any new or worsening symptoms Undiagnosed new problem with uncertain prognosis? @ -No Drug Therapy requiring intensive monitoring for toxicity (Heparin, Nitro, Insulin, Cardizem)? @ -No Were any procedures done? @ -No Diagnosis/symptom? @ -Acute weakness, subjective dehydration Acute, or Chronic, or Acute on Chronic? @ -Acute Uncomplicated (without systemic symptoms) or Complicated (systemic symptoms)? @ -Complicated Side effects of treatment? @ -No Exacerbation, Progression, or Severe Exacerbation? @ -No Poses a threat to life or bodily function? How? (Chest pain, USA, NH, pneumonia, PE, COPD, DKA, ARF, appy, cholecystitis, CVA, Diverticulitis, Homicidal, Suicidal, threat to staff... and all critical care pts) @ -No - Lab Data Result diagrams: 10/24/24 13:04 10/24/24 13:04 Lab Results 10/24/24 10/24/24 Range/Units 13:04 13:04 WBC 5.49 (4.50-10.00) 10*3/uL RBC 4.28 (4.10-5.20) 10*6/uL Hgb 13.2 (12.0-15.0) g/dL Hct 38.0 (37.2-46.3) % MCV 88.8 (80.0-97.0) fL MCH 30.8 (27.0-32.0) pg MCHC 34.7 (32.0-37.0) g/dL Plt Count 232 (140-440) 10*3/uL MPV 9.2 L (9.5-12.2) fL Immature Gran % (Auto) 0.4 % Neutrophils % 61.6 % Lymphocytes % 29.7 % Monocytes % 6.0 % Eosinophils % 1.8 % Basophils % 0.5 % Immature Gran # 0.02 (0.00-0.04) 10*3/uL Neutrophils # 3.38 (1.80-7.70) 10*3/uL Lymphocytes # 1.63 (0.90-5.00) 10*3/uL Monocytes # 0.33 (0.20-1.00) 10*3/uL Eosinophils # 0.10 (0.04-0.35) 10*3/uL Basophils # 0.03 (0.00-0.10) 10*3/uL Sodium 136 L (137-145) mmol/L Potassium 3.8 (3.5-5.1) mmol/L Chloride 106 (98-107) mmol/L Carbon Dioxide 20 L (22-30) mmol/L Anion Gap 10 mmol/L BUN 20 H (7-17) mg/dL Creatinine 0.67 (0.52-1.04) mg/dL Est GFR (CKD-EPI)AfAm >90 (>60 ml/min/1.73 sqM) Est GFR (CKD-EPI)NonAf >90 (>60 ml/min/1.73 sqM) Glucose 90 (74-99) mg/dL Calcium 8.8 (8.4-10.2) mg/dL Total Bilirubin 0.4 (0.2-1.3) mg/dL AST 29 (14-36) U/L ALT 18 (4-34) U/L Alkaline Phosphatase 75 (38-126) U/L Total Protein 5.8 L (6.3-8.2) g/dL Albumin 4.0 (3.5-5.0) g/dL Disposition Clinical Impression: Weakness Disposition: LEFT AGAINST MEDICAL ADVICE Condition: Undetermined Is patient prescribed a controlled substance at d/c from ED?: No Referrals: Lior Clemons MD [Primary Care Provider] - 1-2 days Time of Disposition: 13:25
[2024-10-24 13:36] LABS: ALT 18 U/L (4-34); AST 29 U/L (14-36); African American GFR (CKD) >90 (>60 ml/min/1.73 sqM); Albumin 4.0 g/dL (3.5-5.0); Alkaline Phosphatase 75 U/L (38-126); Anion Gap 10 mmol/L; Blood Urea Nitrogen 20 mg/dL (7-17); Calcium 8.8 mg/dL (8.4-10.2); Carbon Dioxide 20 mmol/L (22-30); Chloride 106 mmol/L (98-107); Glucose 90 mg/dL (74-99); Non-African American GFR(CKD) >90 (>60 ml/min/1.73 sqM); Potassium 3.8 mmol/L (3.5-5.1); Sodium 136 mmol/L (137-145); Total Protein 5.8 g/dL (6.3-8.2)
== END 2024-10-24 13:37 | disposition left against medical advice (07) ==
LOC: EC 12:32
DX: R53.1 Weakness (principal); Z88.5 Allergy status to narcotic agent; Z88.6 Allergy status to analgesic agent; Z91.018 Allergy to other foods; Z88.1 Allergy status to other antibiotic agents; Z88.8 Allergy status to other drugs, medicaments and biological substances; Z53.29 Procedure and treatment not carried out because of patient's decision for other reasons
CPT/HCPCS: 36415; 80053; 85025; 99285

== ENCOUNTER 2024-10-26 23:48 | Emergency (ER) | payer MEDICARE, OTHER ==
--- NOTE | 2024-10-27 00:14 | ED ---
Recheck HPI - General Stated Complaint: post op incision reopened Time Seen by Provider: 10/27/24 00:12 Source: RN notes reviewed, old records reviewed Mode of arrival: ambulatory Limitations: no limitations - History of Present Illness Initial Comments: This is a 38 female she presents today for evaluation regards to possible postoperative complications and wants surgical wound evaluation. Complaint: wound re-check -: hour(s) Returns Today for: wound recheck Symptoms Since Prior Visit: no new symptoms Context: planned re-check Associated Symptoms: none - Related Data Home Medications Medication Instructions Recorded Confirmed Medroxyprogesterone Acetate 150 mg IM Q84D 11/22/13 10/24/24 [Depo-Provera] rOPINIRole HCL [Requip] 1 mg PO BID@0900,1400 11/22/13 10/24/24 Pentosan Polysulfate Sodium 100 mg PO BID 02/10/15 10/24/24 [Elmiron] Albuterol Sulfate [Proair Hfa] 2 puff INHALATION RT-QID PRN 01/13/18 10/24/24 Butalb/Acetaminophen/Caffeine 1 tab PO Q12H PRN 01/13/18 10/24/24 [Fioricet 50-325-40] Gabapentin [Neurontin] 300 mg PO TID 03/11/18 10/24/24 Gabapentin [Neurontin] 600 mg PO TID 09/16/19 10/24/24 rOPINIRole HCL [Requip] 2 mg PO HS 09/16/19 10/24/24 traZODone HCL 200 mg PO HS 09/16/19 10/24/24 Cyclobenzaprine [Flexeril] 10 mg PO TID PRN 08/16/20 10/24/24 Albuterol Nebulized [Ventolin 2.5 mg INHALATION RT-Q4H PRN 10/14/24 10/24/24 Nebulized] Ibuprofen 800 mg PO Q12H PRN 10/14/24 10/24/24 Ondansetron Odt [Zofran Odt] 8 mg PO Q8HR PRN 10/14/24 10/24/24 diphenhydrAMINE [Benadryl] 50 mg PO QID PRN 10/14/24 10/24/24 EPINEPHrine (Auto Inject) [Epipen] 0.3 mg IM ONCE PRN 10/24/24 10/24/24 Topiramate 50 mg PO BID 10/24/24 10/24/24 Previous Rx's Medication Instructions Recorded oxyCODONE HCL/ACETAMINOPHEN 1 tab PO Q6HR PRN #28 tab 10/16/24 [Percocet 7.5-325 mg] Cephalexin [Keflex] 500 mg PO TID #20 cap 10/27/24 Allergies Allergy/AdvReac Type Severity Reaction Status Date / Time azithromycin Allergy Rash/Hives Verified 10/27/24 00:45 [From Zithromax Z-Mehrdad] cimetidine [From Tagamet] Allergy Rash/Hives Verified 10/27/24 00:45 codeine Allergy Nausea & Verified 10/27/24 00:45 Vomiting ether [Ether] Allergy Anaphylaxis Verified 10/27/24 00:45 Fish Containing Products Allergy Anaphylaxis Verified 10/27/24 00:45 [Fish] ibuprofen [From Motrin] Allergy Rash/Hives Verified 10/27/24 00:45 morphine Allergy heart stops Verified 10/27/24 00:45 NSAIDS (Non-Steroidal Allergy Rash/Hives Verified 10/27/24 00:45 Anti-Inflamma ziprasidone HCl [From Geodon] Allergy Extrapyramidal Verified 10/27/24 00:45 Symptoms ciprofloxacin [From Cipro] AdvReac Rash/Hives Verified 10/27/24 00:45 fluphenazine HCl AdvReac Extrapyramidal Verified 10/27/24 00:45 [From Prolixin] Symptoms haloperidol [From Haldol] AdvReac Extrapyramidal Verified 10/27/24 00:45 Symptoms Sulfa (Sulfonamide AdvReac Nausea & Verified 10/27/24 00:45 Antibiotics) Vomiting Review of Systems ROS Statement: Those systems with pertinent positive or pertinent negative responses have been documented in the HPI. ROS Other: All systems not noted in ROS Statement are negative. Past Medical History Past Medical History: Asthma, GERD/Reflux, Hyperlipidemia, Musculoskeletal Disorder, Neurologic Disorder, Osteoarthritis (OA), Seizure Disorder Additional Past Medical History / Comment(s): RSD-DERIC FEET, INTERSTITIAL CYSTITIS, BRONCHITIS, HEMORRHOIDS,MIGRAINES, INSOMNIA. VERTIGO, last seizure 4 years ago, complex regional pain syndrome, RLS. History of Any Multi-Drug Resistant Organisms: MRSA Date of last positivie culture/infection: 04/20/15 MDRO Source:: Left Axilla Past Surgical History: Adenoidectomy, Back Surgery, Cholecystectomy, Orthopedic Surgery, Tonsillectomy Additional Past Surgical History / Comment(s): bilateral foot surgery d/t rsd, numerous pain clinic procedures, nerve stimulator in back to tx RSD placed in Nov 11 2015, pain pump placement, replacement of stimulator 06/2021, replacement of pain pump. Past Anesthesia/Blood Transfusion Reactions: Previous Problems w/ Anesthesia Additional Past Anesthesia/Blood Transfusion Reaction / Comment(s): Pt recieved blood when she was 2 yrs old after tonsillectomy. WHEN BABY HEART STOPPED TWICE- PT STATED SHE WAS ALLERGIC TO ETHER. Past Psychological History: Anxiety, Bipolar, Depression, PTSD Smoking Status: Never smoker Past Alcohol Use History: None Reported Past Drug Use History: Marijuana - Past Family History Father History Unknown: Yes Family Medical History: Diabetes Mellitus Mother Family Medical History: Cancer, CVA/TIA, Diabetes Mellitus, Myocardial Infarction (PR) Additional Family Medical History / Comment(s): Mother has had 5 CVAs, 3 MIs and UTERINE CANCER General Exam General appearance: alert, in no apparent distress Head exam: Present: atraumatic, normocephalic, normal inspection Eye exam: Present: normal appearance, PERRL, EOMI. Absent: scleral icterus, conjunctival injection, periorbital swelling ENT exam: Present: normal exam, mucous membranes moist Neck exam: Present: normal inspection. Absent: tenderness, meningismus, lymphadenopathy Respiratory exam: Present: normal lung sounds bilaterally. Absent: respiratory distress, wheezes, rales, rhonchi, stridor Cardiovascular Exam: Present: regular rate, normal rhythm, normal heart sounds. Absent: systolic murmur, diastolic murmur, rubs, gallop, clicks GI/Abdominal exam: Present: soft, normal bowel sounds. Absent: distended, tenderness, guarding, rebound, rigid Extremities exam: Present: normal inspection, full ROM, normal capillary refill. Absent: tenderness, pedal edema, joint swelling, calf tenderness Back exam: Present: normal inspection Neurological exam: Present: alert, oriented X3, CN II-XII intact Psychiatric exam: Present: normal affect, normal mood Skin exam: Present: warm, dry, intact, normal color. Absent: rash Course Vital Signs 10/27/24 00:40 Temperature 98.9 F Pulse Rate 106 H Respiratory 18 Rate Blood Pressure 156/97 O2 Sat by Pulse 98 Oximetry - Reevaluation(s) Reevaluation #1: 10/27/24 00:13 Medical records reviewed Reevaluation #2: 10/27/24 00:13 Patient symptoms unchanged Reevaluation #3: 10/27/24 00:13 Patient prior history Reevaluation #4: Was pt. sent in by a medical professional or institution (, [facility], [facility], urgent care, hospital, or fdc...) When possible be specific @ -no Did you speak to anyone other than the patient for history (EMS, parent, family, police, friend...)? What history was obtained from this source @ -no Did you review nursing and triage notes (agree or disagree)? Why? @ -agree Are old charts reviewed (outside hosp., previous admission, EMS record, old EKG, old radiological studies, urgent care reports/EKG's, fdc records)? Report findings @ -yes Differential Diagnosis (chest pain, altered mental status, abdominal pain women, abdominal pain men, vaginal bleeding, weakness, fever, dyspnea, syncope, headache, dizziness, GI bleed, back pain, seizure, CVA, palpatations, mental health, musculoskeletal)? @ -prior EKG interpreted by me (3pts min.). @ -yes X-rays interpreted by me (1pt min.). @ -yes negative for acute disease CT interpreted by me (1pt min.). @ -no U/S interpreted by me (1pt. min.). @ -no What testing was considered but not performed or refused? (CT, X-rays, U/S, labs)? Why? @ -none What meds were considered but not given or refused? Why? @ -none Did you discuss the management of the patient with other professionals (professionals i.e. [facility] Estes, [facility], lab, RT, psych nurse, social worker school, gizzard puller, teacher, immigration services officer, case management manager)? Give summary @ -no Was smoking cessation discussed for >3mins.? @ -no Was critical care preformed (if so, how long)? @ -no Were there social determinants of health that impacted care today? How? (Homelessness, low income, unemployed, alcoholism, drug addiction, transportation, low edu. Level, literacy, decrease access to med. care, [place] [facility], rehab)? @ -none Was there de-escalation of care discussed even if they declined (Discuss DNR or withdrawal of care, Hospice)? DNR status @ -no What co-morbidities impacted this encounter? (DM, HTN, Smoking, COPD, CAD, Cancer, CVA, ARF, Chemo, Hep., AIDS, mental health diagnosis, sleep apnea, morbid obesity)? @ -none Was patient admitted / discharged? Hospital course, mention meds given and route, prescriptions, significant lab abnormalities, going to OR and other pertinent info. @ - Undiagnosed new problem with uncertain prognosis? @ -no Drug Therapy requiring intensive monitoring for toxicity (Heparin, Nitro, Insulin, Cardizem)? @ -no Were any procedures done? @ -no Diagnosis/symptom? @ - Acute, or Chronic, or Acute on Chronic? @ -Acute Uncomplicated (without systemic symptoms) or Complicated (systemic symptoms)? @ -Complicated Side effects of treatment? @ -no Exacerbation, Progression, or Severe Exacerbation? @ -exacerbation Poses a threat to life or bodily function? How? (Chest pain, USA, PR, pneumonia, PE, COPD, DKA, ARF, appy, cholecystitis, CVA, Diverticulitis, Homicidal, Suicidal, threat to staff... and all critical care pts) @ -yes Medical Decision Making - Medical Decision Making 38 female here for evaluation secondary to symptoms. Patient is discharged home home. Disposition Clinical Impression: Encounter for wound care, Cellulitis Disposition: HOME SELF-CARE Condition: Good Instructions (If sedation given, give patient instructions): Acute Wound Care (ED), Wound Dehiscence (ED) Prescriptions: Cephalexin [Keflex] 500 mg PO TID #20 cap Is patient prescribed a controlled substance at d/c from ED?: No Referrals: Lior Clemons MD [Primary Care Provider] - 1-2 days Time of Disposition: 00:50
[2024-10-27] MEDS: [UNRECOGNIZED DRUG - OTHER] PO STA (01:10)
[2024-10-27] MEDS: CEPHALEXIN 500 MG CAP PO STA (01:10)
[2024-10-27] MEDS: HYDROmorphone 1 MG/ML 1 ML SYRINGE IM STA (01:10)
[2024-10-27] MEDS: CEPHALEXIN 250 MG PO STA (01:10)
[2024-10-27] MEDS: PROCHLORPERAZINE 10 MG TAB PO ONE (01:18)
[2024-10-27 01:33] VITALS: BP 152/96; PULSE 95; RESP 20; TEMP 98.5
== END 2024-10-27 01:19 | disposition home or self-care (01) ==
LOC: EC 23:48
DX: L03.90 Cellulitis, unspecified (principal); Z48.89 Encounter for other specified surgical aftercare; Z88.1 Allergy status to other antibiotic agents; Z88.2 Allergy status to sulfonamides; Z88.5 Allergy status to narcotic agent; Z88.6 Allergy status to analgesic agent; Z91.013 Allergy to seafood; Z88.8 Allergy status to other drugs, medicaments and biological substances
CPT/HCPCS: 96372; 99283; S0183; J1171